=== PATIENT | male | born 1970 | race Caucasian/White ===

== ENCOUNTER 2023-05-21 13:33 | Emergency (ER) | payer MEDICARE, SELFPAY ==
[2023-05-21 13:37] VITALS: BP 130/88; PULSE 64; RESP 14; TEMP 36.8; O2SAT 98; BMI 36.9
--- NOTE | 2023-05-21 13:51 | ED_ITS ---
HPI - Headache General Stated Complaint: MIGRANE Time Seen by Provider: 05/21/23 13:34 Source: patient Mode of arrival: walk-in Limitations: no limitations History of Present Illness HPI Narrative: patient is a 52-year-old male well-known to this emergency department for history of chronic neck pain and migraines. He presents to the Emergency Room today for a 5-6 day history of increasing bilateral neck pain radiating into the head. He states he believes it is due to his pillow at home which has become more lumpy. He states he believes it is exacerbating his chronic neck pain. He reports pain on the bilateral paracervical area radiating up to the temples. This is consistent with previous headaches. He denies any new fevers, vomiting. No reported injuries. Related Data Home Medications Medication Instructions Recorded Confirmed cyclobenzaprine 10 mg tablet 10 mg PO Q8H PRN muscle spasm 05/21/23 05/21/23 insulin degludec 200 unit/mL (3 100 unit subcut DAILY 05/21/23 05/21/23 mL) subcutaneous pen (Tresiba FlexTouch U-200 insulin) irbesartan 300 mg tablet 300 mg PO DAILY 05/21/23 05/21/23 metoprolol succinate 100 mg 100 mg PO DAILY 05/21/23 05/21/23 tablet,extended release 24 hr pregabalin 200 mg capsule 200 mg PO DAILY 05/21/23 05/21/23 rosuvastatin 10 mg tablet 10 mg PO DAILY 05/21/23 05/21/23 Previous Rx's Medication Instructions Recorded methocarbamol 750 mg tablet 750 mg PO TID PRN pain #20 tabs 05/21/23 Allergies Allergy/AdvReac Type Severity Reaction Status Date / Time No Known Drug Allergies Allergy Verified 05/21/23 13:45 Review of Systems ROS Constitutional Denies: fever or chills Ears, nose, mouth, and throat Reports: neck pain; Denies: throat pain Cardiovascular Denies: chest pain Respiratory Denies: shortness of breath or cough Gastrointestinal Denies: nausea or vomiting Musculoskeletal Reports: neck pain; Denies: back pain Integumentary/Breast Denies: rash Neurological Reports: headache Endocrine Denies: excessive urination Hematologic/Lymphatic Denies: easy bruising PFSH PFSH Social History Smoking status: Current every day smoker Exam Narrative Exam Narrative: Gen.: Awake, alert, in no distress Head: Normocephalic, atraumatic ENT: Moist mucous membranes; diffuse tenderness of the paracervical area of the neck with no midline posterior bony point tenderness of the C-spine. 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 Psych: Normal mood and affect Neuro: No focal neuro deficit; clear speech Skin: Warm, dry, intact Constitutional Vital Signs, click to edit/add: Last Vital Signs Temp 98.2 F 05/21/23 13:37 Pulse 64 05/21/23 13:37 Resp 14 05/21/23 13:37 BP 130/88 05/21/23 13:37 Pulse Ox 98 05/21/23 13:37 O2 Del Method Room Air 05/21/23 13:37 Course Vital Signs Vital signs: Vital Signs Temperature 98.2 F 05/21/23 13:37 Pulse Rate 64 05/21/23 13:37 Respiratory Rate 14 05/21/23 13:37 Blood Pressure 130/88 05/21/23 13:37 Pulse Oximetry 98 05/21/23 13:37 Oxygen Delivery Method Room Air 05/21/23 13:37 Temperature 98.2 F 05/21/23 13:37 Pulse Rate 64 05/21/23 13:37 Respiratory Rate 14 05/21/23 13:37 Blood Pressure 130/88 05/21/23 13:37 Pulse Oximetry 98 05/21/23 13:37 Oxygen Delivery Method Room Air 05/21/23 13:37 MDM - Headache MDM Narrative Medical decision making narrative: patient declined an IV, he requests intramuscular injections instead. He will be treated with Phenergan, Benadryl, Norflex, Toradol. He is given a prescription of Robaxin for home. Follow-up with PCP and return to the emergency department if symptoms change or worsen. Patient is prescribed Lyrica for home. He is instructed to stop his old prescription of Flexeril and will be given a new prescription for muscle relaxants. Medical Records Attestation: I reviewed the patient's medical records. Discharge Plan Discharge Clinical Impression: Acute neck pain, Headache Patient Disposition: Home, Self-Care Time of Disposition Decision: 13:54 Condition: Good Prescriptions / Home Meds: New methocarbamol 750 mg tablet 750 mg PO TID PRN (Reason: pain) Qty: 20 0RF No Action insulin degludec [Tresiba FlexTouch U-200] 200 unit/mL (3 mL) insulin pen 100 unit SUBCUT DAILY irbesartan 300 mg tablet 300 mg PO DAILY metoprolol succinate 100 mg tablet extended release 24 hr 100 mg PO DAILY pregabalin 200 mg capsule 200 mg PO DAILY rosuvastatin 10 mg tablet 10 mg PO DAILY cyclobenzaprine 10 mg tablet 10 mg PO Q8H PRN (Reason: muscle spasm) Instructions: Acute Headache (ED), Acute Neck Pain (ED) Stand Alone Forms: Portal Instructions Referrals: NISA ROJAS [Primary Care Provider] - 1 week
[2023-05-21] MEDS: PROMETHAZINE HCL 25 MG/ML VIAL IM (14:00)
[2023-05-21] MEDS: ORPHENADRINE 60 MG/ 2 ML VIAL IM (14:01)
[2023-05-21] MEDS: KETOROLAC TROMETHAMINE 60 MG/2 ML VIAL IM (14:01)
[2023-05-21] MEDS: DIPHENHYDRAMINE HCL 50 MG/ML (1ML) VIAL 25 MG IM (14:02)
== END 2023-05-21 14:18 | disposition home or self-care (01) ==
PROVIDERS: Emergency Provider Emergency Medicine; PCP Internal Medicine
DX: M54.2 Cervicalgia (principal); R51.9 Headache, unspecified; Z79.899 Other long term (current) drug therapy; Z79.4 Long term (current) use of insulin; F17.210 Nicotine dependence, cigarettes, uncomplicated
CPT/HCPCS: 96372; 99284

== ENCOUNTER 2023-06-15 14:09 | Emergency (ER) | payer MEDICARE, SELFPAY ==
[2023-06-15 14:14] VITALS: BP 160/110; PULSE 68; RESP 18; TEMP 37.1; O2SAT 100; BMI 36.9
[2023-06-15 14:20] VITALS: BP 185/95
--- NOTE | 2023-06-15 14:42 | ED_ITS ---
HPI - General Adult General Chief complaint: Headache Stated complaint: HEADACHE/FACE AND NECK PAIN Time Seen by Provider: 06/15/23 14:15 Source: patient Mode of arrival: walk-in Limitations: no limitations History of Present Illness HPI narrative: acute flare up of chronic pain - localized to the neck and back of the head. No recent injury or fall. He said it has progressed over the last 24 hours with little improvement with Tylenol and Flexeril. He was evaluated in our ED recently for this and got Robaxin, which he said he tolerated better - and worked better - than the Flexeril he is currently taking. Related Data Home Medications Medication Instructions Recorded Confirmed cyclobenzaprine 10 mg tablet 10 mg PO Q8H PRN muscle spasm 05/21/23 05/21/23 insulin degludec 200 unit/mL (3 100 unit subcut DAILY 05/21/23 05/21/23 mL) subcutaneous pen (Tresiba FlexTouch U-200 insulin) irbesartan 300 mg tablet 300 mg PO DAILY 05/21/23 05/21/23 metoprolol succinate 100 mg 100 mg PO DAILY 05/21/23 05/21/23 tablet,extended release 24 hr pregabalin 200 mg capsule 200 mg PO DAILY 05/21/23 05/21/23 rosuvastatin 10 mg tablet 10 mg PO DAILY 05/21/23 05/21/23 Previous Rx's Medication Instructions Recorded methocarbamol 750 mg tablet 750 mg PO TID PRN pain #20 tabs 05/21/23 methocarbamol 750 mg tablet 750 mg PO Q6H PRN pain #30 tabs 06/15/23 Allergies Allergy/AdvReac Type Severity Reaction Status Date / Time No Known Drug Allergies Allergy Verified 06/15/23 14:14 PFSH [facility] Social History Smoking status: Current every day smoker Exam Narrative Exam Narrative: Nurses notes and vital signs reviewed and patient is not hypoxic. afebrile General: Well-appearing and in no apparent distress. Skin: Warm, dry, no pallor noted. No rash. Head: Normocephalic, atraumatic. Neck: Supple, no cervical lymphadenopathy. Posterior soft tissue neck tenderness bilaterally. No meningismus. Eye: Pupils are equal, round and EOMI. No scleral icterus. Cardiovascular: Regular Rate and Rhythm without murmur, gallop or rub. Respiratory: No accessory muscle use or respiratory distress. Lungs are clear to auscultation, no wheezing, rales or rhonchi Back: No midline thoracic vertebral tenderness. No trapezius tenderness Musculoskeletal: normal ROM Neurological: A&O x4. No cranial nerve dysfunction observed. No truncal ataxia. Moves all extremities. Sensation intact. Psychiatric: Cooperative and interactive. Normal mood and affect. Constitutional Vital Signs, click to edit/add: Last Vital Signs Temp 98.8 F 06/15/23 14:14 Pulse 68 06/15/23 14:14 Resp 18 06/15/23 14:14 BP 185/95 H 06/15/23 14:20 Pulse Ox 100 06/15/23 14:14 O2 Del Method Room Air 06/15/23 14:14 Course Vital Signs Vital signs: Vital Signs Temperature 98.8 F 06/15/23 14:14 Pulse Rate 68 06/15/23 14:14 Respiratory Rate 18 06/15/23 14:14 Blood Pressure 160/110 H 06/15/23 14:14 Pulse Oximetry 100 06/15/23 14:14 Oxygen Delivery Method Room Air 06/15/23 14:14 Temperature 98.8 F 06/15/23 14:14 Pulse Rate 68 06/15/23 14:14 Respiratory Rate 18 06/15/23 14:14 Blood Pressure 185/95 H 06/15/23 14:20 Pulse Oximetry 100 06/15/23 14:14 Oxygen Delivery Method Room Air 06/15/23 14:14 Medical Decision Making MDM Narrative Medical decision making narrative: patient well-known to this emergency Department. He has chronic neck pain for which she has been coming and seeing us in this emergency department for many years. He typically responsive injection of Toradol plus minus Solu-Medrol in those instances where the pain is worse than his typical presentation. We discussed the plan and treatment for today - IM injections of Toradol and Solu- Medrol with a prescription provided for Robaxin. He can follow-up with his primary care provider, who is very familiar with his chronic neck pain. Discharge Plan Discharge Chief Complaint: Headache Clinical Impression: Acute neck pain, Headache Patient Disposition: Home, Self-Care Time of Disposition Decision: 14:41 Prescriptions / Home Meds: New methocarbamol 750 mg tablet 750 mg PO Q6H PRN (Reason: pain) Qty: 30 0RF No Action insulin degludec [Tresiba FlexTouch U-200] 200 unit/mL (3 mL) insulin pen 100 unit SUBCUT DAILY irbesartan 300 mg tablet 300 mg PO DAILY metoprolol succinate 100 mg tablet extended release 24 hr 100 mg PO DAILY pregabalin 200 mg capsule 200 mg PO DAILY rosuvastatin 10 mg tablet 10 mg PO DAILY cyclobenzaprine 10 mg tablet 10 mg PO Q8H PRN (Reason: muscle spasm) methocarbamol 750 mg tablet 750 mg PO TID PRN (Reason: pain) Qty: 20 0RF Instructions: Acute Headache (ED), Chronic Neck Pain (DC) Stand Alone Forms: Portal Instructions Referrals: NISA ROJAS [Primary Care Provider] - 1 week
[2023-06-15] MEDS: KETOROLAC TROMETHAMINE 60 MG/2 ML VIAL IM (14:56)
[2023-06-15] MEDS: METHYLPREDNISOLONE SOD SUCC PF 125 MG/2 ML VIAL IM (14:56)
== END 2023-06-15 15:01 | disposition home or self-care (01) ==
PROVIDERS: Emergency Provider Emergency Medicine; PCP Internal Medicine
DX: M54.2 Cervicalgia (principal); R51.9 Headache, unspecified; G89.29 Other chronic pain; Z79.899 Other long term (current) drug therapy; F17.210 Nicotine dependence, cigarettes, uncomplicated
CPT/HCPCS: 96372; 99284; J2930

== ENCOUNTER 2023-07-20 09:08 | Emergency (ER) | payer MEDICARE, MEDICAID, SELFPAY ==
[2023-07-20 09:25] VITALS: BP 180/108; PULSE 62; RESP 22; TEMP 36.8; O2SAT 98; BMI 43.1
--- NOTE | 2023-07-20 09:39 | ED_ITS ---
HPI - Back Pain/Injury General Chief Complaint: Back Pain/Injury Stated Complaint: BACK PAIN/ FALL Time Seen by Provider: 07/20/23 09:28 Source: patient Mode of arrival: walk-in Limitations: no limitations History of Present Illness HPI Narrative: 53-year-old male presents for pain in his back. Three days ago she rolled out of bed and landed on his back. Two days ago he saw his dentist in the morning, his family doctor in the afternoon, and then the emergency department at another hospital that evening. He was given Toradol by his dentist in tramadol from another physician but it's not working. No new injury. He reports that he had x- rays at that emergency department visit. The pain is severe and worse in certain positions. Related Data Home Medications Medication Instructions Recorded Confirmed cyclobenzaprine 10 mg tablet 10 mg PO Q8H PRN muscle spasm 05/21/23 05/21/23 insulin degludec 200 unit/mL (3 100 unit subcut DAILY 05/21/23 05/21/23 mL) subcutaneous pen (Tresiba FlexTouch U-200 insulin) irbesartan 300 mg tablet 300 mg PO DAILY 05/21/23 05/21/23 metoprolol succinate 100 mg 100 mg PO DAILY 05/21/23 05/21/23 tablet,extended release 24 hr pregabalin 200 mg capsule 200 mg PO DAILY 05/21/23 05/21/23 rosuvastatin 10 mg tablet 10 mg PO DAILY 05/21/23 05/21/23 Previous Rx's Medication Instructions Recorded methocarbamol 750 mg tablet 750 mg PO TID PRN pain #20 tabs 05/21/23 methocarbamol 750 mg tablet 750 mg PO Q6H PRN pain #30 tabs 06/15/23 methocarbamol 750 mg tablet 750 mg PO Q8H pain #20 tabs 07/20/23 Allergies Allergy/AdvReac Type Severity Reaction Status Date / Time No Known Drug Allergies Allergy Verified 06/15/23 14:14 Review of Systems ROS Narrative A ten point review of systems is negative except as noted above. PFSH PFSH Social History Smoking status: Current every day smoker Exam Narrative Exam Narrative: Nurses note and vital signs reviewed and patient is not hypoxic. General: The patient is siitting on the examination chair. Skin: Warm, dry, no pallor noted. There is no rash noted. Head: Normocephalic, atraumatic Eye: Normal conjunctiva, no drainage Ears, Nose, Mouth, and Throat: oral mucosa is moist. Nares patent. Cardiovascular: Regular Rate and Rhythm Respiratory: Patient is in no distress, no accessory muscle use, lungs are clear to auscultation, no wheezing, rales or rhonchi Back: tenderness present in the thoracic spine area and the right lower posterior rib region. Bruise or abrasion present. GI: obese and nontender Musculoskeletal: The patient has no evidence of calf tenderness, no pitting edema, symmetrical pulses noted bilaterally Neurological: A&O, normal speech Psychiatric: Cooperative Constitutional Vital Signs, click to edit/add: Last Vital Signs Temp 98.3 F 07/20/23 09:25 Pulse 62 07/20/23 09:25 Resp 22 07/20/23 09:25 BP 180/108 H 07/20/23 09:25 Pulse Ox 98 07/20/23 09:25 O2 Del Method Room Air 07/20/23 09:25 Course Vital Signs Vital signs: Vital Signs Temperature 98.3 F 07/20/23 09:25 Pulse Rate 62 07/20/23 09:25 Respiratory Rate 22 07/20/23 09:25 Blood Pressure 180/108 H 07/20/23 09:25 Pulse Oximetry 98 07/20/23 09:25 Oxygen Delivery Method Room Air 07/20/23 09:25 Temperature 98.3 F 07/20/23 09:25 Pulse Rate 62 07/20/23 09:25 Respiratory Rate 22 07/20/23 09:25 Blood Pressure 180/108 H 07/20/23 09:25 Pulse Oximetry 98 07/20/23 09:25 Oxygen Delivery Method Room Air 07/20/23 09:25 MDM - Back Pain/Injury MDM Narrative Medical decision making narrative: I've reviewed the x-rays from [facility] and he had thoracic spine x- rays and rib x-rays and they were negative. He is given IM Toradol and Solu- Medrol and Norflex and discharged home on Robaxin. He was offered Lidoderm patches but states he has been home. Treatment diagnosis and follow-up were discussed with the patient. Differential Diagnosis Differential diagnosis: Likely other (back contusion, rib fracture, thoracic spine fracture) Discharge Plan Discharge Chief Complaint: Back Pain/Injury Clinical Impression: Thoracic back pain Patient Disposition: Home, Self-Care Time of Disposition Decision: 10:10 Condition: Good Mode of Transportation: Private Vehicle Prescriptions / Home Meds: New methocarbamol 750 mg tablet 750 mg PO Q8H Qty: 20 0RF No Action insulin degludec [Tresiba FlexTouch U-200] 200 unit/mL (3 mL) insulin pen 100 unit SUBCUT DAILY irbesartan 300 mg tablet 300 mg PO DAILY metoprolol succinate 100 mg tablet extended release 24 hr 100 mg PO DAILY pregabalin 200 mg capsule 200 mg PO DAILY rosuvastatin 10 mg tablet 10 mg PO DAILY cyclobenzaprine 10 mg tablet 10 mg PO Q8H PRN (Reason: muscle spasm) methocarbamol 750 mg tablet 750 mg PO TID PRN (Reason: pain) Qty: 20 0RF methocarbamol 750 mg tablet 750 mg PO Q6H PRN (Reason: pain) Qty: 30 0RF Instructions: Thoracic Pain (ED) Stand Alone Forms: Portal Instructions Referrals: NISA ROJAS [Primary Care Provider] - 1 week
[2023-07-20] MEDS: METHYLPREDNISOLONE SOD SUCC PF 125 MG/2 ML VIAL IM (10:31)
[2023-07-20] MEDS: KETOROLAC TROMETHAMINE 60 MG/2 ML VIAL IM (10:31)
[2023-07-20] MEDS: ORPHENADRINE 60 MG/ 2 ML VIAL IM (10:31)
[2023-07-20 10:36] VITALS: BP 168/98; PULSE 98; RESP 20; O2SAT 98
== END 2023-07-20 10:37 | disposition home or self-care (01) ==
PROVIDERS: Emergency Provider Emergency Medicine; PCP Internal Medicine
DX: M54.6 Pain in thoracic spine (principal); F17.210 Nicotine dependence, cigarettes, uncomplicated; Z79.899 Other long term (current) drug therapy; Z79.4 Long term (current) use of insulin
CPT/HCPCS: 96372; 99284; J2930

== ENCOUNTER 2024-04-01 13:30 | Emergency (ER) | payer MEDICARE, MEDICAID, SELFPAY ==
[2024-04-01 13:35] VITALS: BP 158/115; PULSE 78; TEMP 37.3; O2SAT 95; BMI 44.3
[2024-04-01] MEDS: DIAZEPAM 10 MG/2 ML SYRINGE 5 MG IM (13:56)
[2024-04-01] MEDS: METOCLOPRAMIDE HCL 10 MG/2 ML VIAL IM (13:57)
[2024-04-01] MEDS: METHYLPREDNISOLONE SOD SUCC PF 125 MG/2 ML VIAL IM (13:57)
[2024-04-01] MEDS: DIPHENHYDRAMINE HCL 50 MG/ML VIAL 25 MG IM (13:57)
--- NOTE | 2024-04-01 14:02 | ED_ITS ---
HPI HPI - General Adult General Chief complaint: Headache Stated complaint: FINGER INJURY Time Seen by Provider: 04/01/24 13:31 Source: patient Mode of arrival: walk-in Limitations: no limitations History of Present Illness HPI narrative: This patient is a 53-year-old male with a history of MS, chronic migraines, chronic neck pain, hypertension who presents to the emergency department for multiple complaints. He states he took Toradol this afternoon for a headache that has been present for the last 2 days. He states the Toradol did not help so he came to the emergency department. He has an upcoming appointment with his neurologist next week to discuss his worsening headaches, memory difficulties and difficulty ambulating. This patient is well-known to our emergency department for a longstanding history of all of these issues. He is noted to be hypertensive at initial interview and his mother is at bedside stating that he did not take his blood pressure medication this morning. Patient further complains of swelling, bruising and pain to the distal tip of the left third finger. He denies injury or trauma to the area, his mother thinks he may have had a hangnail. He denies drainage, fevers. Related Data Home Medications ?Medication ?Instructions ?Recorded ?Confirmed cyclobenzaprine 10 mg tablet 10 mg PO Q8H PRN muscle spasm 05/21/23 05/21/23 insulin degludec 200 unit/mL (3 100 unit subcut DAILY 05/21/23 05/21/23 mL) subcutaneous pen (Tresiba FlexTouch U-200 insulin) irbesartan 300 mg tablet 300 mg PO DAILY 05/21/23 05/21/23 metoprolol succinate 100 mg 100 mg PO DAILY 05/21/23 05/21/23 tablet,extended release 24 hr pregabalin 200 mg capsule 200 mg PO DAILY 05/21/23 05/21/23 rosuvastatin 10 mg tablet 10 mg PO DAILY 05/21/23 05/21/23 Previous Rx's ?Medication ?Instructions ?Recorded methocarbamol 750 mg tablet 750 mg PO TID PRN pain #20 tabs 05/21/23 methocarbamol 750 mg tablet 750 mg PO Q6H PRN pain #30 tabs 06/15/23 methocarbamol 750 mg tablet 750 mg PO Q8H pain #20 tabs 07/20/23 cephalexin 500 mg capsule 500 mg PO Q8H 10 days #30 caps 04/01/24 mupirocin 2 % topical ointment 1 applic topical BID #15 grams 04/01/24 Allergies Allergy/AdvReac Type Severity Reaction Status Date / Time No Known Drug Allergies Allergy Verified 06/15/23 14:14 Opioid HPI Opioid Management Most Recent Opioid Data: Last Pain Scale 10 07/20/23 09:36 Review of Systems ROS Constitutional Denies: fever or chills Eyes Denies: change in vision Cardiovascular Denies: chest pain Respiratory Denies: shortness of breath Gastrointestinal Denies: nausea or vomiting Musculoskeletal Reports: neck pain; Denies: back pain Neurological Reports: headache; Denies: numbness in extremities or weakness in extremities Hematologic/Lymphatic Denies: easy bruising or easy bleeding PFSH PFSH Social History Smoking status: Current every day smoker Exam Narrative Exam Narrative: Gen.: Awake, alert, in no distress, no photophobia Head: Normocephalic, atraumatic ENT: Moist mucous membranes, no nuchal rigidity or meningismus. Respiratory: No respiratory distress Extremities: Moves extremities equally, left third finger distal phalanx with scabbing and crusting at the cuticle and surrounding swelling, minimal ecchymosis and erythema. No defined paronychia Psych: Normal mood and affect Neuro: No focal neuro deficit Skin: Warm, dry, intact Constitutional Vital Signs, click to edit/add: Last Vital Signs Temp 99.1 F 04/01/24 13:35 Pulse 78 04/01/24 13:35 Resp 18 04/01/24 13:35 BP 158/115 H 04/01/24 13:35 Pulse Ox 95 04/01/24 13:35 O2 Del Method Room Air 04/01/24 13:35 Course Vital Signs Vital signs: Vital Signs Temperature 99.1 F 04/01/24 13:35 Pulse Rate 78 04/01/24 13:35 Respiratory Rate 18 04/01/24 13:35 Blood Pressure 158/115 H 04/01/24 13:35 Pulse Oximetry 95 04/01/24 13:35 Oxygen Delivery Method Room Air 04/01/24 13:35 Temperature 99.1 F 04/01/24 13:35 Pulse Rate 78 04/01/24 13:35 Respiratory Rate 18 04/01/24 13:35 Blood Pressure 158/115 H 04/01/24 13:35 Pulse Oximetry 95 04/01/24 13:35 Oxygen Delivery Method Room Air 04/01/24 13:35 Medical Decision Making MDM Narrative Medical decision making narrative: Upon arrival to the ER, patient was noted to be hypertensive, he came into the emergency department in a wheelchair complaining of worsening MS symptoms. After assessment, his exam is consistent with wound infection to the left third finger, no evidence of vascular compromise on exam. No defined paronychia to drain. Patient was ordered to have Reglan, Benadryl, Solu-Medrol and Valium for his headache. Patient specifically requested Dilaudid to nursing staff on arrival to the emergency department, I do not feel Dilaudid is indicated for this patient's chronic pain. He has [place] that was prescribed by his PCP, he also has Toradol and Robaxin at home for symptoms. After receiving intramuscular injections, the patient ambulated out of the emergency department with no difficulty, he eloped prior to completion of his treatment and reassessment for his headache. He was noted to ambulate with a steady gait, he was prescribed Keflex and Bactroban for his left third finger if he chooses to fill this. Patient did leave the emergency department before we were able to recheck his blood pressure, give him home-going instructions or reassess his headache. SUPERVISED APC VISIT, PHYSICIAN ATTESTATION: Based on the medical record the care appears appropriate. ? Medical Records Medical records reviewed: Yes I reviewed the patient's medical records Discharge Plan Discharge Stand Alone Forms: Portal Instructions Chief Complaint: Headache Clinical Impression: Headache, Open wound of finger, infected Patient Disposition: Left Against Medical Advice Time of Disposition Decision: 13:48 Condition: Good Prescriptions / Home Meds: New cephalexin 500 mg capsule 500 mg PO Q8H 10 Days Qty: 30 0RF mupirocin 2 % ointment 1 applic topical BID Qty: 15 0RF No Action insulin degludec [Tresiba FlexTouch U-200] 200 unit/mL (3 mL) insulin pen 100 unit SUBCUT DAILY irbesartan 300 mg tablet 300 mg PO DAILY metoprolol succinate 100 mg tablet extended release 24 hr 100 mg PO DAILY pregabalin 200 mg capsule 200 mg PO DAILY rosuvastatin 10 mg tablet 10 mg PO DAILY cyclobenzaprine 10 mg tablet 10 mg PO Q8H PRN (Reason: muscle spasm) methocarbamol 750 mg tablet 750 mg PO TID PRN (Reason: pain) Qty: 20 0RF methocarbamol 750 mg tablet 750 mg PO Q8H Qty: 20 0RF methocarbamol 750 mg tablet 750 mg PO Q6H PRN (Reason: pain) Qty: 30 0RF Print Language: Filipino Instructions: Wound Infection (ED), Acute Headache (ED) Referrals: NISA ROJAS [Primary Care Provider] - 1 week
== END 2024-04-01 14:11 | disposition left against medical advice (07) ==
PROVIDERS: Emergency Provider Emergency Medicine; PCP Internal Medicine
DX: S61.203A Unspecified open wound of left middle finger without damage to nail, initial encounter (principal); L08.9 Local infection of the skin and subcutaneous tissue, unspecified; R51.9 Headache, unspecified; G35 Multiple sclerosis; M54.2 Cervicalgia; G89.29 Other chronic pain; I10 Essential (primary) hypertension; F17.200 Nicotine dependence, unspecified, uncomplicated; Z53.29 Procedure and treatment not carried out because of patient's decision for other reasons
CPT/HCPCS: 96372; 99284; J1200; J2765; J2919; J3360

== ENCOUNTER 2024-12-28 20:43 | Emergency (ER) | payer MEDICARE, MEDICAID, SELFPAY ==
--- OUTSIDE RECORDS SUMMARY | 2024-10-29 06:35 | XMS_ITS ---
Author Organization [facility] Address [address] [place] [address] Care Team Providers Care International Banker Name Role Phone Dr. Erik Arora Primary Care Provider [phone] REASON FOR VISIT FILLING Encounters Encounter Location Date Provider Diagnosis [facility] [address] [place] [address] 10/29/2024 Erik Arora Plan Of Treatment Next Appt Details Provider Name:Lizztete Cazares, 03/10/2025 02:50:00 PM, [address] [place], [address], Progress Notes * KERLINE CHANGDOB: [birth year] (54 yo M)Acc No.[id number]:10/29/2024 Patient: KERLINE ZALDIVAR Provider: Arabella Arora DDS :1970 A ge:54 Y S ex:Male Date:10/29/2024 Address:[address] [place], [place] [id number] Subjective: * Chief Complaints: * 1 . FILLING. * Medical History: Objective: * Vitals: Assessment: Plan: * Treatment: * Images: * Electronic signature of Dr. Erik Arora , DMD on 12/28/2024 at 09:54 AM EDT Sign off status: Pending * Provider: Arabella Arora DDS Date: 0 10/29/2024 Generated for Therese cardenas/Aretha/Augustin on: 0 12/28/2024 09:54 AM EDT
--- OUTSIDE RECORDS SUMMARY | 2024-12-13 10:00 | XMS_ITS ---
Author Organization [facility] Address [address] [place] [address] Care Team Providers Care Loan Processing Supervisor Name Role Phone Dr. Erik Arora Primary Care Provider [phone] Lydia Phillips [phone] REASON FOR VISIT PERIO EVAL + RETAKE BWXS Encounters Encounter Location Date Provider Diagnosis [facility] [address] [place] [address] 12/13/2024 Lydianaya Dey Encounter for dental examination and cleaning with abnormal findings Z01.21 Assessments Encounter Date Diagnosis (ICD Code) Assessment Notes Treatment Notes Treatment Clinical Notes Section Notes 12/13/2024 Encounter for dental examination and cleaning with abnormal findings (ICD-10 - Z01.21) Plan Of Treatment Next Appt Details Provider Name:Lizzette Cazares, 03/10/2025 02:50:00 PM, [address], [place], [address], Progress Notes * KERLINE CHANGDOB: [birth year] (54 yo M)Acc No.[id number]:12/13/2024 Patient: KERLINE ZALDIVAR Provider: Colleen Dey :1970 A ge:54 Y S ex:Male Date:12/13/2024 Address:[address] [place] [id number] Pcp:Dr. Erik Arora Subjective: * Chief Complaints: * 1 . PERIO EVAL + RETAKE BWXS. * Medical History: Objective: * Vitals: * Dental Examination/Plan : Tooth / Surface Status Description Provider Full Mouth TP COMP PERIODONTAL EVAL - NEW/EST PT K H 12/13/2024 Assessment: * Assessment: 1. E ncounter for dental examination and cleaning with abnormal findings - Z01.21 (Primary)? Plan: * Treatment: * Images: * Electronic signature of Sebastián Dey on 12/28/2024 at 09:54 AM EDT Sign off status: Pending * Provider: Colleen Dey Date: 12/13/2024 Generated for Therese cardenas/Aretha/Augustin on: 0 12/28/2024 09:54 AM EDT
--- OUTSIDE RECORDS SUMMARY | 2024-12-24 10:45 | XMS_ITS | Encounter Summary ---
Author Organization [facility] Address [address] [place] [address] Care Team Providers Care Navy Diver Name Role Phone Darrius Orr MD Unavailable [phone] Darrius Orr MD Primary Care Provider [phone] Aiden Linares DPM Unavailable [phone] Kai Gutierres DO Unavailable [phone] Reason for Visit * Reason Comments Hyperglycemia Pt had BS reading of 500 this AM. Currently 478. He has taken an additional 50 units of insulin. Migraine Pt had an Ocrevus in fusion yesterday at 12pm and during the infusion was given solumedrol, Benadryl as well. Encounter Details Date Type Department Care Team ([facility] Contact Info) Description 12/24/2024 10:45 AM EDT Office Visit [facility] [address] [facility] [address] [place] [phone] Adela Gross, SALES PROFESSIONAL [employer] [address] [facility] [address] [place] [address] Essential hypertension (CMS/HCC) (Primary Dx); Type 2 diabetes mellitus with diabetic neuropathy, with long-term current use of insulin (CMS/HCC); History of migraine headaches Social History Tobacco Use Types Packs/Day Years Used Date Smoking Tobacco: Former Cigarettes 0.3 35 S tarted: 1989 Passive Smoke Exposure: Past Smokeless Tobacco: Never Tobacco Cessation:Counseling Given: No Alcohol Use Standard Drinks/Week Comments Never 0 (1 standard drink = 0.6 oz pure alcohol) Caffine intake: Coke Zero, 2-3 cans daily AUDIT-C Answer Date Recorded Q1: How often do you have a drink containing alcohol? Never 12/30/2023 Q2: How many drinks containi ng alcohol do you have on a typical day when you are drinking? Patient does not drink Q3: How often do you have si x or more drinks on one occasion? Never 12/30/2023 PHQ-2 Answer Date Recorded Patient Health Questionnaire-2 Score 0 02/25/2024 Sex and Gender Information Value Date Recorded Sex Assigned at Not on file Legal Sex Male 6:48 PM EDT Gender Identity Not on file Sexual Orientation Not on file Occupation Industry Job Start Date Job End Date disabled Not on file Not on file Not on file documented as of this encounter Last Filed Vital Signs Vital Sign Reading Time Taken Comments Blood Pressure 160/90 12/24/2024 10:09 AM EDT Pulse 84 12/24/2024 10:09 AM EDT Temperature - - Respiratory Rate - - Oxygen Saturation 98% 12/24/2024 10:09 AM EDT Inhaled Oxygen Concentration - - Weight - - Height - - Body Mass Index - - documented in this encounter Progress Notes * Adela Gross NP - 12/24/2024 10:45 AM EDT Images from the original note were not included. Alex Ellis is a 54 y.o. male presents with chief complaint of Hyperglycemia (Pt had BS reading of 500 this AM. Currently 478. He has taken an additional 50 units of insulin.) and Migraine (Pt hadan Ocrevus infusion yesterday at 12pm and during the infusion was given solumedrol, Benadryl as well. ) HPI: History of Present Illness The patient is a 54-year-old male who presents today for elevated blood sugar. Elevated Blood Sugar He reports persistent hyperglycemia, with blood glucose levels exceeding 500 for the past two days.His blood glucose level was 482 this morning. He had steroids with Ocrevus infusion yesterday. He has been adhering to his insulin regimen, including the administration of 50 units of NovoLog at approximately 8:30 AM today. He also took 110 units of Tresiba this morning. He has been taking insulin daily, although he admits to missing a few doses. He typically administers Tresiba in the morning and uses a sliding scale for NovoLog a couple times a day , instructed to take three times daily. Since yesterday at 3:00 PM, he has taken a total of 260 units of NovoLog, with the last dose of 50 units administered at 8:00 AM today. He has not yet consulted with a life skills educator. His diet includes meat and he occasionally consumes cereal. He is requesting a prescription for diabetic shoes. He recently changed his Jazmín sensor this morning. - Onset: Persistent hyperglycemia for the past two days. - Location: Blood glucose levels. - Duration: Past two days. - Character: Blood glucose levels exceeding 500, 482 this morning. - Alleviating/Aggravating Factors: Adhering to insulin regimen, missing a few doses. - Timing: NovoLog three times daily, Tresiba in the morning. - Severity: Severe hyperglycemia, requesting diabetic shoes. Headaches He received a one-time infusion of Solu-Medrol with his Ocrevus infusion. He also received an Ocrevus infusion yesterday, marking the first day in eight days without a headache. However, he experienced a severe migraine upon waking this morning, localized to his temples and frontal lobe. He is scheduled to see Dr. Gutierres on 01/04/2025. He is seeking stronger medication such as Dilaudid or morphine for his headaches, as Toradol has been ineffective. He took Percocet and a muscle relaxer at 5:00AM today, but reports gastrointestinal discomfort from the Percocet even when taken with food. He has previously tried a combination of Toradol, Benadryl, and Compazine, but found it ineffective. - Onset: Severe migraine upon waking this morning. - Location: Temples and frontal lobe. - Character: Severe migraine. - Alleviating/Aggravating Factors: Seeking stronger medication, Toradol ineffective, gastrointestinal discomfort from Percocet. - Timing: First day in eight days without a headache after Ocrevus infusion. - Severity: Severe migraine, ineffective previous treatments. Uncertainty About Blood Pressure Medication He is uncertain whether he took his blood pressure medication this morning. Improved Respiratory Function He reports improved respiratory function and has been abstinent from smoking for approximately fiveweeks. SOCIAL HISTORY He has been cigarette free for about 5 weeks. I have reviewed and reconciled the history and medication list with the patient today. HISTORIES: PAST MEDICAL HISTORY: Past Medical History: Diagnosis Date Adrenal adenoma, left 12/30/2022 Age-related nuclear cataract, bilateral Bipolar disorder Carpal tunnel syndrome Cervical paraspinal muscle spasm Cholelithiasis Chronic sialoadenitis CKD (chronic kidney disease) stage 2, GFR 60-89 ml/min Disturbance of skin sensation ED (erectile dysfunction) Essential hypertension ([facility]/HCC) SUKHJINDER (generalized anxiety disorder) ([facility]) Gait abnormality History of colon polyps Hx of acute myocardial infarction ([facility]/HCC) Hx of temporal arteritis Hyperlipidemia ([facility]/HCC) Irritable bowel syndrome Lipodermatosclerosis Lymphedema of both lower extremities Migraine Morbid obesity ([facility]/HCC) Multiple sclerosis, relapsing-remitting ([facility]) Nuclear senile cataract 01/03/2021 Obstructive sleep apnea CODIE (obstructive sleep apnea) Peripheral neuropathy PLMD (periodic limb movement disorder) Polypharmacy Primary open angle glaucoma (POAG) of both eyes, mild stage Primary osteoarthritis involving multiple joints PTSD (post-traumatic stress disorder) ([facility]) Spinal stenosis of cervical region Type 2 diabetes mellitus Varicose veins of lower limb Varicose veins Venous insufficiency Vitamin B12 deficiency Vitamin D deficiency SURGICAL HISTORY: Past Surgical History: Procedure Laterality Date ARTERY BIOPSY Left 08/26/2016 temporal artery biopsy. Excision painful vein lt moravian ARTERY BIOPSY Right 03/11/2014 temporal artery biopsy COLONOSCOPY 11/27/2018 CYST REMOVAL Excision of benign cyst back of neck, [facility] KNEE SURGERY arthroscopic knee surgery SOCIAL HISTORY: Social History Tobacco Use Smoking status: Former Average packs/day: 0.3 packs/day for 35.0 years (8.8 ttl pk-yrs) Types: Cigarettes Start date: 1989 Passive exposure: Past Smokeless tobacco: Never Vaping Use Vaping status: Never Used Substance Use Topics Alcohol use: Never Comment: Caffine intake: Coke Zero, 2-3 cans daily Drug use: Yes Types: Marijuana Comment: Daily Depression: Not at risk (02/25/2024) PHQ-2 PHQ-2 Score: 0 FAMILY HISTORY: Family History Problem Relation Name Age of Onset Cancer Mother anastacio gallardo COPD Mother anastacio gallardo Hypertension Father braulio ellis Heart disease Father braulio ellis Cancer Father braluio ellis Diabetes Father braulio ellis Liver disease Father braulio ellis Alcohol abuse Father braulio ellis Cancer Maternal Grandmother kae caceres MEDICATIONS: Current Outpatient Medications Medication Instructions ALPRAZolam (XANAX) 0.5 mg, Oral, 2 times daily PRN amitriptyline (ELAVIL) 25 mg, Oral, Nightly ARIPiprazole (ABILIFY) 5 mg, Oral, Daily bimatoprost (Lumigan) 0.01 % ophthalmic solution 1 drop, Nightly Cannabinoids (medical cannabis) Medical Marijuana cyclobenzaprine (FLEXERIL) 10 mg, Oral, 2 times daily PRN diclofenac sodium (VOLTAREN) 4 g, 4 times daily ergocalciferol (VITAMIN D-2) 1.25 mg, Oral, 3 times weekly fluconazole (DIFLUCAN) 100 mg, Oral, Daily hydroCHLOROthiazide (HYDRODIURIL) 12.5 mg, Daily ibuprofen 800 mg, Oral, 3 times daily PRN irbesartan (Avapro) 300 MG tablet TAKE 1 TABLET BY MOUTH DAILY Lancets Micro Thin 33G misc 1 Lancet , As needed methocarbamol (ROBAXIN) 750-1,500 mg, Oral, 3 times daily PRN metoprolol succinate XL (TOPROL-XL) 100 mg, Oral, Daily NovoLOG FLEXPEN 60 Units, Subcutaneous, See admin instructions, Injection per sliding scale nystatin (Mycostatin) 285965 UNIT/GM powder Four times daily Ocrevus 600 mg, Over 6 months oxyCODONE-acetaminophen (Percocet) 5-325 MG tablet 1-2 tablets, Oral, Every 6 hours PRN pregabalin (LYRICA) 300 mg, Oral, 2 times daily rosuvastatin (CRESTOR) 20 mg, Oral, Nightly tadalafil (CIALIS) 20 mg, Oral, Daily Tresiba FlexTouch 100 Units, Subcutaneous, Nightly ALLERGIES: Allergies Allergen Reactions Duloxetine Hcl Other Reaction(s): intolerance Natalizumab Other Reaction(s): AOF Semaglutide Other Reaction(s): nausea and vomiting Other Reaction(s): Other: See Comments Chills, nightmares, diarrhea PHYSICAL EXAM: Visit Vitals BP 160/90 (BP Location: Right arm, Patient Position: Sitting) Pulse 84 SpO2 98% Smoking Status Former BP Readings from Last 3 Encounters: 12/24/24 160/90 12/08/24 142/88 11/29/24 142/78 Wt Readings from Last 3 Encounters: 11/29/24 324 lb 10/18/24 325 lb 10/12/24 334 lb Physical Exam HENT: Mouth/Throat: Mouth: Mucous membranes are moist. Cardiovascular: Rate and Rhythm: Normal rate and regular rhythm. Heart sounds: No murmur heard. No friction rub. No gallop. Pulmonary: Effort: Pulmonary effort is normal. Breath sounds: Normal breath sounds. Skin: General: Skin is warm and dry. Neurological: Mental Status: He is alert and oriented to person, place, and time. Psychiatric: Thought Content: Thought content normal. Results Labs - Blood sugar: Over 500 for 2 days ASSESSMENT AND PLAN: Assessment & Plan 1. Type 2 diabetes mellitus with diabetic neuropathy, with long-term current use of insulin ([facility]) Hyperglycemia: Chronic. - Blood glucose levels consistently exceeding 500 mg/dL for the past two days. - Taking 260 units of NovoLog since yesterday, with the last dose being 50 units at 8:00 AM today. - On Tresiba, taking 100-110 units daily. - Maintain a consistent diet and avoid skipping meals. - Continue current regimen of Tresiba 100 units in the morning and NovoLog on a sliding scale threetimes daily. At times he may have been only taking twice daily - Monitor blood glucose levels two hours postprandial and maintain a log of these readings on the paper sheet provided today. -Discussed checking with Podiatry re: diabetic shoes. 2. Essential hypertension (CMS/HCC) (Primary) - Blood pressure at 162/100 mmHg during the visit. Recheck 160/90. He does not think he took his BPmeds today. - Reminder to take blood pressure medication regularly. 3. History of migraine headaches - Severe migraines in the temples and frontal lobe, not alleviated by Toradol. - Combination of Toradol, Benadryl, and Compazine ineffective. - Contact Dr. Gutierres's office to schedule an earlier appointment if possible. - Emergency room to be contacted to administer Dilaudid or morphine. Discussed with ER provider whoinformed me pt will not get opioid for migraines. Discussed this with pt. - Toradol given today. - Nurtec samples x 4 doses given and first dose done in office. Instructed to take every other day. - ketorolac (Toradol) injection 60 mg Follow-up - Review blood glucose log and adjust treatment plan next . Dr. Orr was not in the office at time of visit, but was available via real- time, audio/visual technology to supervise patient care. I am following Dr. Orr's plan of care for the above issues. documented in this encounter Plan of Treatment Upcoming Encounters Date Type Department Care Team (Late st Contact Info) Description 12/30/2024 9:45 AM EDT Office Visit [facility] [address] [place] [phone] 01/04/2025 1:00 PM EDT Office Visit [facility] [address] [facility] [address] [place] [phone] Kai Gutierres DO [address] [place] [address] 01/05/2025 3:45 PM EDT Office Visit [facility] [address] [place] [address] Susie Mary DPM [address] [place] [address] 02/28/2025 1:30 PM EDT Office Visit [facility] [address] [place] [phone] documented as of this encounter Visit Diagnoses Diagnosis Essential hypertension ([facility])- Primary Unspecified essential hypertension Type 2 diabetes mellitus with diabetic neuropathy, with long-term current use of insulin ([facility]) History of migraine headaches documented in this encounter Administered Medications Inactive Administered Medications - up to 3 most recent administrations Medication Order MAR Action Action Date Dose Rate Site ketorolac (Toradol) injection 60 mg 60 mg, Intramuscular, Once, On Fri12/24/24 at 1130, For 1 dose, Max daily dose: 120 mg. Max duration: 5 days totalIndications:History of migraine headaches Given 12/24/2024 11:17 AM EDT 60 mg Left Gluteal documented in this encounter Care Teams Navy Diver Relationship Specialty Start Date End Date Darrius Orr MD [address] [place] [address] PCP - [employer] 08/04/19 Darrius Orr MD [address] [place] [address] PCP - General Internal Medicine 12/31/22 Aiden Linares DPM [address] [place] [address] Referring Physician Podiatry 10/30/23 Kai Gutierres DO [address] [facility] [address] [place] [address] Referring Physician Neurology 02/24/24 documented as of this encounter
--- OUTSIDE RECORDS SUMMARY | 2024-12-28 10:45 | XMS_ITS | Encounter Summary ---
Author Organization [facility] Address [address] [place] [address] Care Team Providers Care Primary Care Nurse Name Role Phone Darrius Orr MD Unavailable [phone] Darrius Orr MD Primary Care Provider [phone] Aiden Linares DPM Unavailable [phone] Kai Gutierres DO Unavailable [phone] Reason for Visit * Reason Comments Migraine Patient is here with complaints of migraine, bilateral temporal pain, for 15 days. Neck pain, bilateral. Appointment with Dr Gutierres on 01/04/2025 Encounter Details Date Type Department Care Team (Late st Contact Info) Description 12/28/2024 10:45 AM EDT Office Visit [facility] [address] [facility] [address] [place] [phone] Darrius Orr MD [address] [facility] [address] [place] [address] History of migraine headaches (Primary Dx); Essential hypertension (CMS/HCC); Type 2 diabetes mellitus with diabetic neuropathy, with long-term current use of insulin (CMS/HCC); Temporal pain Social History Tobacco Use Types Packs/Day Years Used Date Smoking Tobacco: Former Cigarettes 0.3 35 S tarted: 1989 Passive Smoke Exposure: Past Smokeless Tobacco: Never Alcohol Use Standard Drinks/Week Comments Never 0 [...] Sign Reading Time Taken Comments Blood Pressure 128/90 12/28/2024 11:06 AM EDT Pulse 71 12/28/2024 11:06 AM EDT Temperature - - Respiratory Rate - - Oxygen Saturation 98% 12/28/2024 11:06 AM EDT Inhaled Oxygen Concentration - - Weight 161 kg (356 lb) 12/28/2024 11:06 AM EDT Height 175.3 cm (5' 9 ) 12/28/2024 11:06 AM EDT Body Mass Index 52.57 12/28/2024 11:06 AM EDT documented in this encounter Plan of Treatment Upcoming Encounters Date Type Department Care Team (Late st Contact Info) Description 12/30/2024 9:45 AM EDT Office Visit [facility] [address] [place] [address] 01/04/2025 1:00 PM EDT Office Visit [facility]DA [facility] [address] [facility] [address] [place] [phone] Kai Gutierres DO [address] [place], [place] [phone] 01/05/2025 3:45 PM EDT Office Visit [facility] [address] [place] [phone] Susie Mary DPM [address] [place] [address] 02/28/2025 1:30 PM EDT Office Visit [facility] [address] [place] [phone] Scheduled Orders Name Type Priority Associated Diagnoses Orde r Schedule CBC and differential Lab Routine Temporal pain Expected: 12/29/2024 (Approximate), Expires: 01/27/2025 Comprehensive metabolic panel Lab Routine Temporal pain Expected: 12/29/2024 (Approximate), Expires: 01/27/2025 Sedimentation rate, automated Lab Routine Temporal pain Expected: 12/29/2024 (Approximate), Expires: 01/27/2025 C-reactive protein Lab Routine Temporal pain Expected: 12/29/2024 (Approximate), Expires: 01/27/2025 Cortisol Lab Routine Temporal pain Expected: 12/29/2024 (Approximate), Expires: 01/27/2025 Metanephrines Plasma Lab Routine Temporal pain Expected: 12/29/2024 (Approximate), Expires: 01/27/2025 documented as of this encounter Visit Diagnoses Diagnosis History of migraine headaches- Primary Essential hypertension (CMS/HCC) Unspecified essential hypertension Type 2 diabetes mellitus with diabetic neuropathy, with long-term current use of insulin (CMS/HCC) Temporal pain documented in this encounter Administered Medications Inactive Administered Medications - up to 3 most recent administrations Medication Order MAR Action Action Date Dose Rate Site ketorolac (Toradol) injection 60 mg 60 mg, Intramuscular, Once, On Fri12/28/24 at 1215, For 1 dose, Max daily dose: 120 mg. Max duration: 5 days totalIndications:Temporal pain Given 12/28/2024 12:08 PM EDT 60 mg Right Gluteal documented in this encounter Care Teams Primary Care Nurse Relationship Specialty Start Date End Date Darrius Orr MD [address] [facility] [address] [place] [address] PCP - [employer] 08/04/19 Darrius Orr MD [address] [place] [address] PCP - General Internal Medicine 12/31/22 Aiden Linares DPM [address] [facility] [address] [place] [address] Referring Physician Podiatry 10/30/23 Kai Gutierres DO [address] [facility] [address] [place] [address] Referring Physician Neurology 02/24/24 documented as of this encounter
[2024-12-28 20:51] VITALS: BP 210/114; PULSE 76; TEMP 36.6; O2SAT 95; BMI 51.7
--- OUTSIDE RECORDS SUMMARY | 2024-12-28 20:51 | XMS_ITS | Encounter Summary ---
Author Organization [facility] Address [address] [place] [address] Phone Care Team Providers Care Automotive Design Layout Drafter Name Role Phone Darrius Orr MD Primary Care Provider Encounter Details Date Type Department Care Team (Late st Contact Info) Description 03/11/2023 Scanned Document [facility] [address] [place] [address] Conversion, Onbase Social History Tobacco Use Types Packs/Day Years Used Date Smoking Tobacco: Never Assessed Sex and Gender Information Value Date Recorded Sex Assigned at Not on file Legal Sex Male 6:29 PM EST Gender Identity Not on file Sexual Orientation Not on file documented as of this encounter Plan of Treatment Not on file documented as of this encounter Procedures Procedure Name Priority Date/Time Associated Diagnosis Comments ECHOCARDIOGRAM 03/11/2023 documented in this encounter Results * ECHOCARDIOGRAM (03/11/2023) Narrative 03/11/2023 Ordered by an unspecified provider. us Onbase Conversion CV ECHO PROCEDURES Final Resul t documented in this encounter Visit Diagnoses Not on filedocumented in this encounter Care Teams Automotive Design Layout Drafter Relationship Specialty Start Date End Date Darrius Orr MD [address] [place] [address] PCP - General 01/28/19 documented as of this encounter
--- OUTSIDE RECORDS SUMMARY | 2024-12-28 20:51 | XMS_ITS | Encounter Summary ---
Author Organization [facility] Address [address] [place] [address] Care Team Providers Care Sports Development Officer Name Role Phone Camila Rodriguez MD Primary Care Provider [phone] Adebayo Reddy MD Primary Care Provider [phone] Ed Alfredo DO Primary Care Provider [phone] Darrius Orr MD Primary Care Provider [phone] Darrius Orr MD Unavailable [phone] Source Comments In the event this information is protected by the Federal Confidentiality of Alcohol and Drug AbusePatient Records regulations: The Federal rules restrict any use of the information to criminally investigate or prosecute any alcohol or drug abuse patient.[facility] Encounter Details Date Type Department Care Team (Late st Contact Info) Description 12/26/2011 Patient Msg Medical Records [address] [place] [address] Provider, [facility] RE: Request an Appointment Social History Tobacco Use Types Packs/Day Years Used Date Smoking Tobacco: Every Day Cigarettes 0.5 20 Smokeless Tobacco: Never Alcohol Use Standard Drinks/Week Comments No 0 (1 standard drink = 0.6 oz pur e alcohol) Sex and Gender Information Value Date Recorded Sex Assigned at Male 04/11/2020 7:52 AM EDT Legal Sex Male 10:06 AM EST Gender Identity Male 04/11/2020 7:52 AM EDT Sexual Orientation Choose not to disclose 2019 7:52 AM EDT Occupation Industry Job Start Date Job End Date Not on file Not on file Not on file Not on file documented as of this encounter Plan of Treatment Not on file documented as of this encounter Visit Diagnoses Not on filedocumented in this encounter Care Teams Sports Development Officer Relationship Specialty Start Date End Date Camila Rodriguez MD [address] [place] [address] PCP - General 10/13/09 12/28/12 Adebayo Reddy MD [address] [place] [address] PCP - General Family Medicine 12/29/12 08/15/14 Ed Alfredo DO [address] [place] [address] PCP - General Family Medicine 08/16/14 08/31/19 Darrius Orr MD [address] [place] [address] PCP - General Internal Medicine 09/01/19 Darrius Orr MD [address] [place] [address] Referring Internal Medicine 11/16/24 documented as of this encounter
--- OUTSIDE RECORDS SUMMARY | 2024-12-28 20:51 | XMS_ITS | Encounter Summary ---
Author Organization [facility] Address [address] [place] [address] Care Team Providers Care Complaint Adjuster Name Role Phone Camila Rodriguez MD Primary Care Provider + [phone] Adebayo Reddy MD Primary Care Provider +[phone] Ed Alfredo DO Primary Care Provider + [phone] Darrius Orr MD Primary Care Provider +[phone] Darrius Orr MD Unavailable [phone] Source Comments In the event this information is protected by the Federal Confidentiality of Alcohol and Drug AbusePatient Records regulations: The Federal rules restrict any use of the information to criminally investigate or prosecute any alcohol or drug abuse patient.[facility] Encounter Details Date Type Department Care Team (Late st Contact Info) Description 10/26/2011 Patient Msg Medical Records [address] [place] [address] Provider, Ccf RE: Request an Appointment Social [...] on filedocumented in this encounter Care Teams Complaint Adjuster Relationship Specialty Start Date End Date Camila Rodriguez MD [address] [place] [address] PCP - General 10/13/09 12/28/12 Adebayo Reddy MD [address] [place] [address] PCP - General Family Medicine 12/29/12 08/15/14 Ed Alfredo DO [address] [place] [address] PCP - General Family Medicine 08/16/14 08/31/19 Darrius Orr MD [address] [place] [address] PCP - General Internal Medicine 09/01/19 Darrius Orr MD [address] [place] [address] Referring Internal Medicine 11/16/24 documented as of this encounter
--- OUTSIDE RECORDS SUMMARY | 2024-12-28 20:51 | XMS_ITS | Encounter Summary ---
Author Organization [facility] Address [address] [place] [address] Care Team Providers Care Manager Erp Name Role Phone Camila Rodriguez MD Primary Care Provider [phone] Lizeth Tillman MD Primary Care Provider [phone] Clinton Gonzales MD Primary Care Provider + [phone] Rich Chun MD Primary Care Provider [phone] Wally Monroe MD Primary Care Provider +[phone] Rich Chun MD Primary Care Provider +[phone] Wally Monroe MD Primary Care Provider [phone] Rich Chun MD Primary Care Provider +[phone] Adebayo Reddy MD Primary Care Provider +[phone] Ed Alfredo DO Primary Care Provider [phone] Darrius Orr MD Primary Care Provider +[phone] Darrius Orr MD Unavailable [phone] Source Comments In the event this information is protected by the Federal Confidentiality of Alcohol and Drug AbusePatient Records regulations: The Federal rules restrict any use of the information to criminally investigate or prosecute any alcohol or drug abuse patient.[facility] Encounter Details Date Type Department Care Team (Late st Contact Info) Description 01/27/2006 Patient Msg Medical Records [address] [place] [address] Provider, Ccf RE: Appointment Cancellation Request Social History Tobacco Use Types Packs/Day Years Used Date Smoking Tobacco: Every Day Cigarettes 1 20 Alcohol Use Standard Drinks/Week Comments No 0 (1 standard drink = 0.6 oz pur e alcohol) Sex and Gender Information Value Date Recorded Sex Assigned at Male 04/11/2020 7:52 AM EDT Legal Sex Male 10:06 AM EST Gender Identity Male 04/11/2020 7:52 AM EDT Sexual Orientation Choose not to disclose 2019 7:52 AM EDT documented as of this encounter Plan of Treatment Not on file documented as of this encounter Visit Diagnoses Not on filedocumented in this encounter Care Teams Manager Erp Relationship Specialty Start Date End Date Camila Rodriguez MD [address] [facility] [place] [address] PCP - General 10/13/09 12/28/12 Lizeth Tillman MD [address] [facility] [place] [address] PCP - General 08/16/09 10/12/09 Clinton Gonzales MD [address] [facility] [place] [address] PCP - General 09/02/08 08/15/09 Rich Chun MD [address] [facility] [place] [address] PCP - General 11/27/06 09/01/08 Wally Monroe MD [address] [place] [address] PCP - General 10/29/06 11/26/06 Rich Chun MD [address] [place] [address] PCP - General 10/28/06 10/28/06 Wally Monroe MD [address] [place] [address] PCP - General 10/15/06 10/27/06 Rich Chun MD [address] [place] [address] PCP - General 11/07/05 10/14/06 Adebayo Reddy MD [address] [facility] [place] [address] PCP - General Family Medicine 12/29/12 08/15/14 Ed Alfredo DO [address] [facility] [place] [address] PCP - General Family Medicine 08/16/14 08/31/19 Darrius Orr MD [address] [place] [address] PCP - General Internal Medicine 09/01/19 Darrius Orr MD [address] [place] [address] Referring Internal Medicine 11/16/24 documented as of this encounter
--- OUTSIDE RECORDS SUMMARY | 2024-12-28 20:51 | XMS_ITS | Encounter Summary ---
Author Organization [facility] Address [address] [place] [address] Care Team Providers Care Cloud Physicist Name Role Phone Camila Rodriguez MD Primary Care Provider + [phone] Adebayo Reddy MD Primary Care Provider +[phone] Ed Alfredo DO Primary Care Provider + [phone] Darrius Orr MD Primary Care Provider [phone] Darrius Orr MD Unavailable [phone] Source Comments In the event this information is protected by the Federal Confidentiality of Alcohol and Drug AbusePatient Records regulations: The Federal rules restrict any use of the information to criminally investigate or prosecute any alcohol or drug abuse patient.[facility] Encounter Details Date Type Department Care Team (Late st Contact Info) Description 11/19/2011 Patient Msg Medical Records [address] [place] [address] Provider, Ccf RE: Request an Appointment Social [...] on filedocumented in this encounter Care Teams Cloud Physicist Relationship Specialty Start Date End Date Camila Rodriguez MD [address] [place] [address] PCP - General 10/13/09 12/28/12 Adebayo Reddy MD [address] [place] [address] PCP - General Family Medicine 12/29/12 08/15/14 Ed Alfredo DO [address] [place] [address] PCP - General Family Medicine 08/16/14 08/31/19 Darrius Orr MD [address] [place] [address] PCP - General Internal Medicine 09/01/19 Darrius Orr MD [address] [place] [address] Referring Internal Medicine 11/16/24 documented as of this encounter
--- OUTSIDE RECORDS SUMMARY | 2024-12-28 20:51 | XMS_ITS | Encounter Summary ---
Author Organization [facility] Address [address] [place] [address] Care Team Providers Care Polishing Pad Mounter Name Role Phone Camila Rodriguez MD Primary Care Provider [phone] Lizeth Tillman MD Primary Care Provider [phone] Clinton Gonzales MD Primary Care Provider + [phone] Rich Chun MD Primary Care Provider [phone] Wally Monroe MD Primary Care Provider [phone] Rich Chun MD Primary Care Provider [phone] Wally Monroe MD Primary Care Provider [phone] Rich Chun MD Primary Care Provider [phone] Adebayo Reddy MD Primary Care Provider +[phone] Ed Alfredo DO Primary Care Provider [phone] Darrius Orr MD Primary Care Provider [phone] Darrius Orr MD Unavailable [phone] Source Comments In the event this information is protected by the Federal Confidentiality of Alcohol and Drug AbusePatient Records regulations: The Federal rules restrict any use of the information to criminally investigate or prosecute any alcohol or drug abuse patient.[facility] Encounter Details Date Type Department Care Team (Late st Contact Info) Description 03/21/2006 Patient Msg Medical Records [address] [place] [address] Provider, Ccf Appointment Cancellation Request Social History Tobacco Use [...] on filedocumented in this encounter Care Teams Polishing Pad Mounter Relationship Specialty Start Date End Date Camila Rodriguez MD [address] [facility] [place] [address] PCP - General 10/13/09 12/28/12 Lizeth Tillman MD [address] [facility] [place] [address] PCP - General 08/16/09 10/12/09 Clinton Gonzales MD [address] [facility] [place] [address] PCP - General 09/02/08 08/15/09 Rich Chun MD [address] [facility] [place] [address] PCP - General 11/27/06 09/01/08 Wally Monroe MD [address] [place] [address] PCP - General 10/29/06 11/26/06 Rich Chun MD [address] [place] [address] PCP - General 10/28/06 10/28/06 Wally Monroe MD [address] [place] [address] PCP - General 10/15/06 10/27/06 Rich Chun MD [address] [place] [address] PCP - General 11/07/05 10/14/06 Adebayo Reddy MD [address] [place] [address] PCP - General Family Medicine 12/29/12 08/15/14 Ed Alfredo DO [address] [place] [address] PCP - General Family Medicine 08/16/14 08/31/19 Darrius Orr MD [address] [place] [address] PCP - General Internal Medicine 09/01/19 Darrius Orr MD [address] [place] [address] Referring Internal Medicine 11/16/24 documented as of this encounter
--- OUTSIDE RECORDS SUMMARY | 2024-12-28 20:51 | XMS_ITS | Encounter Summary ---
Author Organization [facility] Address [address] [place] [address] Care Team Providers Care Research And Insights Executive Name Role Phone Camila Rodriguez MD Primary Care Provider + [phone] Adebayo Reddy MD Primary Care Provider [phone] Ed Alfredo DO Primary Care Provider + [phone] Darrius Orr MD Primary Care Provider [phone] Darrius Orr MD Unavailable [phone] Source Comments In the event this information is protected by the Federal Confidentiality of Alcohol and Drug AbusePatient Records regulations: The Federal rules restrict any use of the information to criminally investigate or prosecute any alcohol or drug abuse patient.[facility] Encounter Details Date Type Department Care Team (Late st Contact Info) Description 05/09/2012 Patient Msg Medical Records [address] [place] [address] Provider, Ccf RE: Request an Appointment Social [...] on filedocumented in this encounter Care Teams Research And Insights Executive Relationship Specialty Start Date End Date Camila Rodriguez MD [address] [place] [address] PCP - General 10/13/09 12/28/12 Adebayo Reddy MD [address] [place] [address] PCP - General Family Medicine 12/29/12 08/15/14 Ed Alfredo DO [address] [place] [address] PCP - General Family Medicine 08/16/14 08/31/19 Darrius Orr MD [address] [place] [address] PCP - General Internal Medicine 09/01/19 Darrius Orr MD [address] [place] [address] Referring Internal Medicine 11/16/24 documented as of this encounter
--- OUTSIDE RECORDS SUMMARY | 2024-12-28 20:51 | XMS_ITS | Encounter Summary ---
Author Organization [facility] Address [address] [place] [address] Care Team Providers Care Medical Staff Physician Name Role Phone Camila Rodriguez MD Primary Care Provider [phone] Lizeth Tillman MD Primary Care Provider [phone] Clinton Gonzales MD Primary Care Provider + [phone] Rich Chun MD Primary Care Provider [phone] Wally Monroe MD Primary Care Provider [phone] Rich Chun MD Primary Care Provider +[phone] Wally Monroe MD Primary Care Provider [phone] Rich Chun MD Primary Care Provider +[phone] Adebayo Reddy MD Primary Care Provider +[phone] Ed Alfredo DO Primary Care Provider [phone] Darrius Orr MD Primary Care Provider [phone] Darrius Orr MD Unavailable [phone] Source Comments In the event this information is protected by the Federal Confidentiality of Alcohol and Drug AbusePatient Records regulations: The Federal rules restrict any use of the information to criminally investigate or prosecute any alcohol or drug abuse patient.[facility] Encounter Details Date Type Department Care Team (Late st Contact Info) Description 03/21/2006 Patient Msg Medical Records [address] [place] [address] Provider, Ccf RE: Appointment Cancellation Request Social [...] on filedocumented in this encounter Care Teams Medical Staff Physician Relationship Specialty Start Date End Date Camila Rodriguez MD [address] [facility] [place] [address] PCP - General 10/13/09 12/28/12 Lizeth Tillman MD [address] [facility] [place] [address] PCP - General 08/16/09 10/12/09 Clinton Gonzales MD [address] [facility] [place] [address] PCP - General 09/02/08 08/15/09 Rich Chun MD [address] [facility] [place] [address] PCP - General 11/27/06 09/01/08 Wally Monroe MD [address] [place] [address] PCP - General 10/29/06 11/26/06 Rich Chun MD [address] [place] [address] PCP - General 10/28/06 10/28/06 Wally Monroe MD [address] [place] [address] PCP - General 10/15/06 10/27/06 Rich Chun MD [address] [place] [address] PCP - General 11/07/05 10/14/06 Adebayo Reddy MD [address] [facility] [place] [address] PCP - General Family Medicine 12/29/12 08/15/14 Ed Alfredo DO [address] [facility] [place] [address] PCP - General Family Medicine 08/16/14 08/31/19 Darrius Orr MD [address] [place] [address] PCP - General Internal Medicine 09/01/19 Darrius Orr MD [address] [place] [address] Referring Internal Medicine 11/16/24 documented as of this encounter
--- OUTSIDE RECORDS SUMMARY | 2024-12-28 20:51 | XMS_ITS | Encounter Summary ---
Author Organization [facility] Address [address] [place] [address] Care Team Providers Care Cap Maker Name Role Phone Camila Rodriguez MD Primary Care Provider [phone] Lizeth Tillman MD Primary Care Provider [phone] Clinton Gonzales MD Primary Care Provider + [phone] Rich Chun MD Primary Care Provider [phone] Wally Monroe MD Primary Care Provider [phone] Rich Chun MD Primary Care Provider +[phone] Wally Monroe MD Primary Care Provider [phone] Rich Chun MD Primary Care Provider +[phone] Adebayo Reddy MD Primary Care Provider +[phone] Ed Alfredo DO Primary Care Provider +[phone] Darrius Orr MD Primary Care Provider [phone] Darrius Orr MD Unavailable [phone] Source Comments In the event this information is protected by the Federal Confidentiality of Alcohol and Drug AbusePatient Records regulations: The Federal rules restrict any use of the information to criminally investigate or prosecute any alcohol or drug abuse patient.[facility] Encounter Details Date Type Department Care Team (Late st Contact Info) Description 03/12/2006 Patient Msg Medical Records [address] [place] [address] Provider, Ccf Appointment Cancellation Request Social History [...] on filedocumented in this encounter Care Teams Cap Maker Relationship Specialty Start Date End Date Camila Rodriguez MD [address] [facility] [place] [address] PCP - General 10/13/09 12/28/12 Lizeth Tillman MD [address] [facility] [place] [address] PCP - General 08/16/09 10/12/09 Clinton Gonzales MD [address] [facility] [place] [address] PCP - General 09/02/08 08/15/09 Rich Chun MD [address] [facility] [place] [address] PCP - General 11/27/06 09/01/08 Wally Monroe MD [address] [place] [address] PCP - General 10/29/06 11/26/06 Rich Chun MD [address] [place] [address] PCP - General 10/28/06 10/28/06 Wally Monroe MD [address] [place] [address] PCP - General 10/15/06 10/27/06 Rich Chun MD [address] [place] [address] PCP - General 11/07/05 10/14/06 Adebayo Reddy MD [address] [place] [address] PCP - General Family Medicine 12/29/12 08/15/14 Ed Alfredo DO [address] [place] [address] PCP - General Family Medicine 08/16/14 08/31/19 Darrius Orr MD [address] [place] [address] PCP - General Internal Medicine 09/01/19 Darrius Orr MD [address] [place] [address] Referring Internal Medicine 11/16/24 documented as of this encounter
--- OUTSIDE RECORDS SUMMARY | 2024-12-28 20:51 | XMS_ITS | Clinical Summary ---
Author Organization [facility] Address [facility] [place] [address] Care Team Providers Care Senior Maintenance Mechanic Name Role Phone Darrius Orr MD Primary Care Provider [phone] Darrius Orr MD Unavailable [phone] Allergies Active Allergy Reactions Criticality Noted Date Comments Semaglutide Other: See Comments 11/21/2020 Chills, nightmares, diarrhea Medications Bimatoprost (LUMIGAN) 0.01 % OPHTHALMIC DropIndications:Ot her specified glaucoma Use 1 Drop in both eyes once daily. 0 11/27/19 12 Active aspirin, enteric coated (ASPIRIN, ENTERIC COATED) 81 mg EC tablet Take 81 mg by mouth once daily. Active metoprolol succinate XL, long acting, (TOPROL XL) 25 mg 24 hr tablet Take 25 mg by mouth once daily. Active ketoconazole (NIZORAL) 2 % cream Apply to rash on thighs twice daily until rash is gone. 60 g 1 12/20/19 15 Active ergocalciferol, vitamin D2, (VITAMIN D) 50,000 unit capsule Take 1 capsule by mouth once each week. 4 capsule 2 01/26/20 15 Active Additional Information Patient not taking.Reason: Changing Therapy/Dosage Form (lower dosage), Reported on 10/26/2019 venlafaxine (EFFEXOR) 75 mg tablet Take 1 tablet by mouth twice daily. 60 tablet 11 05/16/20 15 Active Podofilox (PODOFILOX) 0.5 % external solution Apply to lesions twice daily x 3 days on, then 4 days off. 3.5 mL 3 06/16/20 15 Active dimethyl fumarate (TECFIDERA) 240 mg cpDR Take 240 mg by mouth twice daily. 180 capsule 0 02/09/20 16 Active labetalol (TRANDATE) 300 mg tablet Take 300 mg by mouth once daily. Labetalol HCL 300mg 3 times daily (per pt report) Active diclofenac, EC, (VOLTAREN) 75 mg EC tablet Take 75 mg by mouth twice daily. Active hydroCHLOROthiazid e (HYDRODIURIL, ESIDRIX) 25 mg tablet Take 25 mg by mouth once daily. Active labetalol (TRANDATE) 100 mg tablet Take 100 mg by mouth three times daily. Active irbesartan (AVAPRO) 300 mg tablet Take 300 mg by mouth once daily. Active cholecalciferol (VITAMIN D-3) 5,000 unit tab Take 5,000 Units by mouth daily with food. Active diclofenac sodium (VOLTAREN) 1 % topical gel apply FOUR grams topically FOUR TIMES DAILY NEEDED 09/01/19 Active rosuvastatin (CRESTOR) 20 mg tabletIndications: Hyperlipidemia, unspecified hyperlipidemia type Take 1 tablet by mouth once daily. 90 tablet 3 11/22/19 21 Active empagliflozin (JARDIANCE) 10 mg tabletIndications: Diabetes mellitus type 2 in obese Take 1 tablet by mouth once daily. 90 tablet 3 11/22/19 21 Active insulin degludec (TRESIBA FLEXTOUCH U-200) 200 unit/mL (3 mL) injectionIndicatio ns:Diabetes mellitus type 2 in obese Inject 100 Units subcutaneously daily at bedtime. 12 Pen 3 11/27/19 21 Active Active Problems Problem Noted Date Diagnosed Date Diabetes mellitus with neuro logical manifestations, controlled 08/22/2015 Elevated sed rate 02/23/2014 Elevated C-reactive protein (CRP) 02/23/2014 Cervicalgia 02/23/2014 Migraine 02/23/2014 Polyuria 02/23/2014 OA (osteoarthritis) of knee 02/11/2014 Cervical spondylosis without myelopathy 02/20/20 13 Headache(784.0) 01/08/2013 SALVADOR (headache) 10/14/2012 Ingrown nail 04/10/2012 Tinea cruris 02/04/2012 Dermatofibroma 02/04/2012 B12 deficiency 09/01/2011 Patellofemoral syndrome 04/27/2011 Edema leg 03/05/2011 Nail, ingrown 04/19/2010 Ingrown right big toenail 03/06/2010 Benign neoplasm of skin of o ther and unspecified parts of face 03/06/2010 Neoplasm of uncertain behavior of skin 0 MS (multiple sclerosis) 01/17/2010 Overview (01/17/2010): Diagnosed by Dr. Gonzalez on 01/16/2010 Foot pain 12/29/2009 Varicose veins of lower extr emities with other complications 08/22/2009 Type II or unspecified type diabetes mellitus with neurological manifestations, not stated as uncontrolled(250.60) 09/28/2008 Hyperparathyroidism, unspecified 09/02/2008 Overview (09/02/2008): in the setting of Vitamin D deficiency Unspecified vitamin D deficiency 09/02/2008 Sebaceous cyst 07/05/2008 Edema 06/21/2008 Contact dermatitis and other eczema, due to unspecified cause 06/06/2008 Ingrowing nail 10/15/2007 Depressive disorder, not elsewhere classified OA (OSTEOARTHRITIS) LOCALIZED, PRIMARY( Lower Le g) 06/09/2006 INTERNAL DERANGEMENT KNEE-CHRONIC MEDIAL MENISCU S- UNSPEC 06/09/2006 Sacroiliitis, not elsewhere classified 6 Psoriatic arthropathy 02/11/2006 Achilles bursitis or tendinitis 01/14/2006 Overview (01/14/2006): RIGHT Other psoriasis 01/14/2006 Overview (01/14/2006): POSSIBLE EXCESSIVE OBESITY 03/05/2005 Other specified glaucoma Unspecified essential hypertension Generalized osteoarthrosis, unspecified site Type II or unspecified type diabetes mellitus without mention of complication, not stated as uncontrolled Resolved Problems Problem Noted Date Diagnosed Date Resolved Date Anal fissure and fistula 12/02/2006 Rheumatoid arthritis(714.0) 03/05/2005 12/29/2012 Encounters Date Type Department Care Team Description 12/07/2024 Patient [facility] [place] [address] Ludy Pastrana RPh At your next appointment, choose [facility]. 12/07/2024 Patient [facility] [place] [address] Ludy Pastrana RPh At your next appointment, choose [facility]. from Last 3 Months Immunizations Immunization Administration Dates Next Due influenza vaccine, unspecified formulation 06/30 pneumococcal polysaccharide (PPV23) vaccine, 23 valent (PNEUMOVAX 23) 03/19/2006 tuberculin skin test (TST-PP D), purified protein derivative, intradermal 11/18/2008 Family History Medical History Relation Comments Hypertension Father Heart Maternal Grandfather Heart Attac k Diabetes Paternal Grandmother Heart Paternal Grandmother Heart Failu re Relation Status Comments Father (Age 50) DM CHF Lver fa ilure Maternal Grandfather Maternal Grandmother Alive throat canc er Mother Alive Other 1 Alive (Age 30) half brother Other 2 Alive (Age 38) half sister Paternal Grandfather Paternal Grandmother Sister 1 Alive Sister 2 Alive (Age 42) Social History Tobacco Use Types Packs/Day Years Used Date Smoking Tobacco: Former Cigarettes Q uit: 08/18/2012 Smokeless Tobacco: Never Alcohol Use Standard Drinks/Week Comments No 0 (1 standard drink = 0.6 oz pur e alcohol) PHQ-2 Answer Date Recorded PHQ-2 score 6 10/26/2019 Area Deprivation Index Answer Date Jaydon rded National Score (1-100), lower number is lower ri sk 91 12/15/2024 State Score (1-10), lower number is lower risk 9 12/15/2024 Data from: https://www.neighborhoodatlas.medicine.[facility].edu/. Last address used for calculation [address] 12/15/2024 Sex and Gender Information Value Date Recorded Sex Assigned at Male 04/11/2020 7:52 AM EDT Legal Sex Male 10:06 AM EST Gender Identity Male 04/11/2020 7:52 AM EDT Sexual Orientation Choose not to disclose 2019 7:52 AM EDT Occupation Industry Job Start Date Job End Date Not on file Not on file Not on file Not on file Last Filed Vital Signs Vital Sign Reading Time Taken Comments Blood Pressure 188/104 11/21/2020 9:00 AM EDT Pulse 64 11/21/2020 9:00 AM EDT Temperature 36.6 C (97.8 F) 10/26/2019 11:19 AM EDT Respiratory Rate 24 01/24/2015 2:32 PM EDT Oxygen Saturation 96% 03/21/2014 9:19 AM EDT Inhaled Oxygen Concentration - - Weight 172.8 kg (381 lb) 11/21/2020 9:00 AM EDT Height 175.3 cm (5' 9 ) 10/26/2019 11:19 AM EDT Body Mass Index 56.26 10/26/2019 11:19 AM EDT Plan of Treatment Health Maintenance Due Date Last Done Comments Annual PCP Team Chronic Dise ase Visit 1989 Anxiety Screening 1989 BP Controlled (<130/80) 1989 DTaP,Tdap,Td Vaccine (1 - Tdap) 1990 Hepatitis B Vaccine (1 of 3 - 19+ 3-dose series) 1990 11/26/2017 Dilated Retinal Exam 02/14/2015 02/14/2014, 09/18/2011, 06/21/2010, Additional history exists CT Colonography 2016 Cologuard (FIT-DNA) 2016 Fecal Occult Blood 2016 Sigmoidoscopy 2016 Diabetic Foot Exam 08/22/2016 08/22/2015, 0 02/15/2015, 10/20/2014, Additional history exists Colonoscopy 01/28/2020 01/27/2019 Colorectal Cancer Screening 01/28/2020 LDL Cholesterol 04/17/2021 04/17/2020, 02/01, 05/05/2012, Additional history exists Urine Albumin:Creatinine Ratio 04/17/2021 0 04/17/2020, 12/29/2008, 03/19/2006, Additional history exists Shingrix Vaccine (1 of 2) 2021 Covid-19 Vaccine (3 - 2023-2 5 season) 2024 11/30/2020, 11/09/2020 HbA1C 11/29/2024 08/31/2024, 05/04, 05/21/2024, Additional history exists Influenza Vaccine (Season Ended) 2025 06/30/20 07 HIV Screening Completed 02/08/2009 Hepatitis C Screening Completed 02/08/2009 , 06/03/2008, 01/14/2006 Pneumococcal Vaccine: 50+ Completed 12/05/2021, Procedures Procedure Name Priority Date/Time Associated Diagnosis Comments HEMOGLOBIN A1C (POC) Routine 11/21/2020 8:48 AM EDT Diabetes mellitus type 2 in obese (HCC) *CREATININE OTHER SOURCE ASSAY Routine 04/17/2020 12:23 PM EDT Diabetes mellitus type 2 in obese (HCC) LIPID PANEL, FASTING Routine 04/17/2020 12:21 PM EDT Hyperlipidemia, unspecified hyperlipidemia type HIV 1/2 COMBO WITH REFLEX TO DIFFERENTIATION Routine 02/08/2009 12:57 PM EDT Dysuria OTH SYMPTM URINARY SYSTM Male Genital Dis Nec Venereal Dis Contact HEP REMOTE PANEL BL Routine 02/08/2009 1 2:57 PM EDT Dysuria OTH SYMPTM URINARY SYSTM Male Genital Dis Nec Venereal Dis Contact from Last 3 Months or Most Recently Relevant to Health Maintenance Results * (ABNORMAL) HEMOGLOBIN A1C (POC) (11/21/2020 8:48 AM EDT) Hemoglobin A1C (POCT) 11.0(A) 4.2 - 5.6 % [facility] Comment: Point of care (POC) Hemoglobin A1c (HGBA1C) testing is intended to assess glucose control and provide a management tool for patients known to have diabetes and their healthcare providers. Target HGBA1C levels may depend on specific clinical circumstances. POC HGBA1C is not intended for use as a diagnostic or screening test; laboratory-based testing should be used for diagnostic purposes. The following information is supplemental and may not be applicable to specific diabetes management situations: The POC device well treatment offsider provides a normal range of 4.2% to 6.5% for the HGBA1C POC test. However, the [place] Diabetes Association guidelines indicate that patients with HGBA1C in the range of 5.7% to 6.4% are at increased risk for development of diabetes and that intervention by lifestyle modification may be beneficial. A HGBA1C level greater than or equal to 6.5% is considered diagnostic of diabetes, pending confirmatory testing. Use of HGBA1C testing to evaluate glucose control may not be appropriate for patients with hemoglobin variants or other conditions (e.g. anemia) that alter red blood cell lifespan. BLOOD SPECIMEN / Unknown 11/21/2020 8:48 AM EDT us Wally Puga MD POC TESTING Final Resu lt Performing Organization Address [facility] Co de Phone Number [facility] * (ABNORMAL) ALBUMIN/CREAT RATIO RND UR (04/17/2020 12:23 PM EDT) Creatinine, Ur Random (UCRR) 252.3 20 - 300 mg/dL 04/17/2020 7:16 PM EDT [facility] Albumin, Urine Random 303.3 mg/L 04/17/2020 7:16 PM EDT [facility] Albumin/Creat Ratio 120(H) <30 mg/g 04/17/2020 7:16 PM EDT [facility] Comment: Adult Male and Female Nephrotic Criteria: <30 mg/g is considered normal to mildly increased 30-300 mg/g is considered moderately increased >300 mg/g is considered severely increased KDIGO. (2013). KDIGO 2012 Clinical Practice Guideline for the Evaluation and Management of Chronic Kidney Disease. Official Journal of the International Society of Nephrology, 3(1), 1-150. Urine specimen (specimen) URINE SPECIMEN / Unknown 04/17/2020 12:23 PM EDT 04/17/2020 12:26 PM EDT Wally Puga MD LABORATORY Final Resu lt Performing Organization Address [facility]/ZIP Co de Phone Number [facility] [address] [place] [address] [facility] [address] [place] [address] * (ABNORMAL) LIPID PANEL BASIC (04/17/2020 12:21 PM EDT) Cholesterol, Total 167 <200 mg/dL 04/17/2020 6:13 PM EDT [facility] Comment: <200 mg/dL, Desirable 200-239 mg/dL, Borderline high >239 mg/dL, High Triglyceride 83 <150 mg/dL 04/17/2020 6:13 PM [facility] Comment: <150 mg/dL, Normal 150-199 mg/dL, Borderline high 200-499 mg/dL, High >499 mg/dL, Very high HDL Cholesterol 44 >39 mg/dL 0 6:13 PM [facility] Comment: 40-59 mg/dL, Acceptable >59 mg/dL, High: Negative risk factor for coronary heart disease <40 mg/dL, Low: Positive risk factor for coronary heart disease LDL Cholesterol, Calculated 106(H) <100 mg/dL 04/17/2020 6:13 PM [facility] Comment: <100 mg/dL, Optimal 100-129 mg/dL, Near optimal/above optimal 130-159 mg/dL, Borderline high 160-189 mg/dL, High >189 mg/dL, Very high Secondary prevention optimal LDL Cholesterol levels are recommended to be < 70 mg/dL Non HDL Cholesterol 123 <130 mg/dL 04/17/2020 6:13 PM [facility] Comment: <130 mg/dL, Optimal 130-159 mg/dL, Near optimal/above optimal 160-189 mg/dL, Borderline high 190-219 mg/dL, High >219 mg/dL, Very high Secondary prevention optimal non HDL Cholesterol levels are recommended to be < 100 mg/dL Fasting Time 12 hrs 04/17/2020 12:23 PM [facility] VLDL Cholesterol 17 <30 mg/dL 04/17/20 20 6:13 PM [facility] TC:HDL Ratio 3.80 <5.10 04/17/2020 6:13 PM [facility] LDL:HDL Ratio 2.41 <2.54 04/17/2020 6:13 PM [facility] Comment: Reference: 1. National Cholesterol Education Program ATP III Guideline At-A-Glance Quick Desk Reference: National Heart, Lung, and Blood [place]. National Institutes of Health. 2001: NIH Publication No. 01-3305. 2. An International Atherosclerosis Society position paper: global recommendations for the management of dyslipidemia: executive summary, Atherosclerosis. 2014: 232(2):410-413. Blood specimen (specimen) BLOOD SPECIMEN / Unknown 04/17/2020 12:21 PM EDT 04/17/2020 12:23 PM EDT Wally Puga MD LABORATORY Final Resu lt [facility] [address] [place] [address] [facility] [address] [place] [address] [facility] [address] [facility], [facility] * HIV AB 1&2 SCREEN (02/08/2009 12:57 PM EDT) HIV 1 & 2 Ab (EIA) Non Reactive NR [facility] Comment: If results are indeterminate or otherwise inconsistent with an individual's clinical presentation or risk profile for HIV infection a repeat specimen is requested. A repeat specimen is also recommended for any individual identified positive for the first time. Blood specimen (specimen) BLOOD SPECIMEN / Unknown 02/08/2009 12:57 PM EDT Clinton Gonzales MD LABORATORY Final Resu lt Performing Organization Address [facility]/ZIP Co de Phone Number [facility] [address] [place] [address] * HEP REMOTE PANEL BL (02/08/2009 12:57 PM EDT) Hep B Core Ab, Total Negative NEGAT [facility] Hep C Antibody IA Negative NEGAT [facility] HBsAg Negative NEGAT [facility] Hep B Surface Ab, Qual Negative [facility] Comment: A negative Hepatitis B Surface Antibody is indicative of: 1)no prior exposure to HBV, 2)lack of antibody response to an acute or chronic HBV infection, 3)lack of antibody response to HBV vaccination, or, 4)loss of immunity that followed either vaccination or infection. Blood specimen (specimen) BLOOD SPECIMEN / Unknown 02/08/2009 12:57 PM EDT Clinton Gonzales MD LABORATORY Final Resu lt [facility] [address] [place] [address] from Last 3 Months or Most Recently Relevant to Health Maintenance Insurance [place]ICAID [place] [employer] Advance Directives Documents on File Type Date Recorded Patient Bus Mechanic Expl anation Advance Directive(s) 02/08/2010 1:29 PM Care Teams Senior Maintenance Mechanic Relationship Specialty Start Date End Date Darrius Orr MD [address] [place] [address] PCP - General Internal Medicine 09/01/19 Darrius Orr MD [address] [place] [address] Referring Internal Medicine 11/16/24
--- OUTSIDE RECORDS SUMMARY | 2024-12-28 20:51 | XMS_ITS | Clinical Summary ---
Author Organization [facility] Address [address] [place] [address] Phone Care Team Providers Care Sales Agent Business Services Name Role Phone Darrius Orr MD Primary Care Provider Social History Tobacco Use Types Packs/Day Years Used Date Smoking Tobacco: Never Assessed Sex and Gender Information Value Date Recorded Sex Assigned at Not on file Legal Sex Male 6:29 PM EST Gender Identity Not on file Sexual Orientation Not on file Plan of Treatment Health Maintenance Due Date Last Done Comments CT Colonography 1971 Colonoscopy 1971 Colorectal Cancer Screening 1971 FIT-DNA (Cologuard) 1971 FIT 1971 HIV Screening 1971 Lipid Panel 1971 Sigmoidoscopy 1971 Yearly Adult Physical 1971 MMR Vaccines (1 of 1 - Stand giancarlo series) 1972 Hepatitis C Screening 1989 Hepatitis B Vaccines (1 of 3 - 19+ 3-dose series) 1990 DTaP/Tdap/Td Vaccines (1 - Tdap) 1993 Pneumococcal Vaccine (1 of 1 - PCV) 2021 Zoster Vaccines (1 of 2) 2021 COVID-19 Vaccine (1 - 2023-2 5 season) 2024 Influenza Vaccine (Season Ended) 2025 HIB Vaccines Aged Out No longer eligi ble based on patient's age to complete this topic HPV Vaccines Aged Out No longer eligi ble based on patient's age to complete this topic Hepatitis A Vaccines Aged Out No long er eligible based on patient's age to complete this topic IPV Vaccines Aged Out No longer eligi ble based on patient's age to complete this topic Meningococcal Vaccine Aged Out No ari markus eligible based on patient's age to complete this topic Rotavirus Vaccines Aged Out No longer eligible based on patient's age to complete this topic Care Teams Sales Agent Business Services Relationship Specialty Start Date End Date Darrius Orr MD [address] [place] [address] PCP - General 01/28/19
--- OUTSIDE RECORDS SUMMARY | 2024-12-28 20:51 | XMS_ITS | Encounter Summary ---
Author Organization [facility] Address [address] [place] [address] Care Team Providers Care Boat Cleaner Name Role Phone Camila Rodriguez MD Primary Care Provider [phone] Lizeth Tillman MD Primary Care Provider [phone] Clinton Gonzales MD Primary Care Provider [phone] Rich Chun MD Primary Care Provider [phone] Wally [place] MD Primary Care Provider [phone] Rich Chun MD Primary Care Provider [phone] Wally [place] MD Primary Care Provider [phone] Rich Chun MD Primary Care Provider [phone] Adebayo Reddy MD Primary Care Provider [phone] Ed Alfredo DO Primary Care Provider [phone] Darrius Orr MD Primary Care Provider [phone] Darrius Orr MD Unavailable [phone] Source Comments In the event this information is protected by the Federal Confidentiality of Alcohol and Drug AbusePatient Records regulations: The Federal rules restrict any use of the information to criminally investigate or prosecute any alcohol or drug abuse patient.[facility] Encounter Details Date Type Department Care Team (Late st Contact Info) Description 03/12/2006 Patient Msg Medical Records [address] [place] [address] Provider, Pilarf Flaco Social History Tobacco Use Types Packs/Day Years [...] on filedocumented in this encounter Care Teams Boat Cleaner Relationship Specialty Start Date End Date Camila Rodriguez MD [address] [facility] [address] [place] [address] PCP - General 10/13/09 12/28/12 Lizeth Tillman MD [address] [place] [address] PCP - General 08/16/09 10/12/09 Clinton Gonzales MD [address] [facility] [place] [address] PCP - General 09/02/08 08/15/09 Rich Chun MD [address] [facility] [place] [address] PCP - General 11/27/06 09/01/08 Wally Monroe MD [address] [place] [address] PCP - General 10/29/06 11/26/06 Rich Chun MD [address] [place] [address] PCP - General 10/28/06 10/28/06 Wally Monroe MD [address] [place] [address] PCP - General 10/15/06 10/27/06 Rich Chun MD [address] [place] [address] PCP - General 11/07/05 10/14/06 Adebayo Reddy MD [address] [place] [address] PCP - General Family Medicine 12/29/12 08/15/14 Ed Alfredo DO [address] [place] [address] PCP - General Family Medicine 08/16/14 08/31/19 Darrius Orr MD [address] [place] [address] PCP - General Internal Medicine 09/01/19 Darrius Orr MD [address] [place] [address] Referring Internal Medicine 11/16/24 documented as of this encounter
--- OUTSIDE RECORDS SUMMARY | 2024-12-28 20:51 | XMS_ITS | Encounter Summary ---
Author Organization [facility] Address [address] [place] [address] Care Team Providers Care Head Silverman Name Role Phone Camila Rodriguez MD Primary Care Provider [phone] Lizeth Tillman MD Primary Care Provider [phone] Clinton Gonzales MD Primary Care Provider + [phone] Rich Chun MD Primary Care Provider [phone] Wally [place] MD Primary Care Provider [phone] Rich Chun MD Primary Care Provider [phone] Wally [place] MD Primary Care Provider [phone] Rich Chun MD Primary Care Provider [phone] Adebayo Reddy MD Primary Care Provider [phone] Ed Alfredo DO Primary Care Provider [phone] Darrius Orr MD Primary Care Provider [phone] Darrius Orr MD Unavailable [phone] Source Comments In the event this information is protected by the Federal Confidentiality of Alcohol and Drug AbusePatient Records regulations: The Federal rules restrict any use of the information to criminally investigate or prosecute any alcohol or drug abuse patient.[facility] Encounter Details Date Type Department Care Team (Late st Contact Info) Description 05/26/2006 Patient Msg Medical Records [address] [place] [address] Provider, Ccf RE: Appointment Cancellation Request Social [...] on filedocumented in this encounter Care Teams Head Silverman Relationship Specialty Start Date End Date Camila Rodriguez MD [address] [facility] [place] [address] PCP - General 10/13/09 12/28/12 Lizeth Tillman MD [address] [facility] [place] [address] PCP - General 08/16/09 10/12/09 Clinton Gonzales MD [address] [facility] [place] [address] PCP - General 09/02/08 08/15/09 Rich Chun MD [address] [facility] [place] [address] PCP - General 11/27/06 09/01/08 Wally Monroe MD [address] [place] [address] PCP - General 10/29/06 11/26/06 Rich Chun MD [address] [place] [address] PCP - General 10/28/06 10/28/06 Wally [place] MD [address] [place] [address] PCP - General 10/15/06 10/27/06 Rich Chun MD [address] [place] [address] PCP - General 11/07/05 10/14/06 Adebayo Reddy MD [address] [facility] [place] [address] PCP - General Family Medicine 12/29/12 08/15/14 Ed Alfredo DO [address] [facility] [place] [address] PCP - General Family Medicine 08/16/14 08/31/19 Darrius Orr MD [address] [place] [address] PCP - General Internal Medicine 09/01/19 Darrius Orr MD [address] [place] [address] Referring Internal Medicine 11/16/24 documented as of this encounter
--- OUTSIDE RECORDS SUMMARY | 2024-12-28 20:51 | XMS_ITS | Encounter Summary ---
Author Organization [facility] Address [address] [place] [address] Care Team Providers Care Assault Amphibious Vehicle Officer Name Role Phone Camila Rodriguez MD Primary Care Provider + [phone] Adebayo Reddy MD Primary Care Provider [phone] Ed Alfredo DO Primary Care Provider + [phone] Darrius Orr MD Primary Care Provider [phone] Darrius Orr MD Unavailable [phone] Source Comments In the event this information is protected by the Federal Confidentiality of Alcohol and Drug AbusePatient Records regulations: The Federal rules restrict any use of the information to criminally investigate or prosecute any alcohol or drug abuse patient.[facility] Encounter Details Date Type Department Care Team (Late st Contact Info) Description 07/08/2012 Patient Msg Medical Records [address] [place] [address] Provider, Ccf RE: Request an Appointment Social [...] on filedocumented in this encounter Care Teams Assault Amphibious Vehicle Officer Relationship Specialty Start Date End Date Camila Rodriguez MD [address] [place] [address] PCP - General 10/13/09 12/28/12 Adebayo Reddy MD [address] [place] [address] PCP - General Family Medicine 12/29/12 08/15/14 Ed Alfredo DO [address] [place] [address] PCP - General Family Medicine 08/16/14 08/31/19 Darrius Orr MD [address] [place] [address] PCP - General Internal Medicine 09/01/19 Darrius Orr MD [address] [place] [address] Referring Internal Medicine 11/16/24 documented as of this encounter
--- OUTSIDE RECORDS SUMMARY | 2024-12-28 20:51 | XMS_ITS | Encounter Summary ---
Author Organization [facility] Address [address] [place] [address] Care Team Providers Care Fruit Inspector Name Role Phone Camila Rodriguez MD Primary Care Provider + [phone] Adebayo Reddy MD Primary Care Provider +[phone] Ed Alfredo DO Primary Care Provider + [phone] Darrius Orr MD Primary Care Provider [phone] Darrius Orr MD Unavailable [phone] Source Comments In the event this information is protected by the Federal Confidentiality of Alcohol and Drug AbusePatient Records regulations: The Federal rules restrict any use of the information to criminally investigate or prosecute any alcohol or drug abuse patient.[facility] Encounter Details Date Type Department Care Team (Late st Contact Info) Description 01/13/2012 Patient Msg Medical Records [address] [place] [address] Provider, Ccf RE: Appointment Cancellation Request Social [...] on filedocumented in this encounter Care Teams Fruit Inspector Relationship Specialty Start Date End Date Camila Rodriguez MD [address] [place] [address] PCP - General 10/13/09 12/28/12 Adebayo Reddy MD [address] [place] [address] PCP - General Family Medicine 12/29/12 08/15/14 Ed Alfredo DO [address] [place] [address] PCP - General Family Medicine 08/16/14 08/31/19 Darrius Orr MD [address] [place] [address] PCP - General Internal Medicine 09/01/19 Darrius Orr MD [address] [place] [address] Referring Internal Medicine 11/16/24 documented as of this encounter
--- OUTSIDE RECORDS SUMMARY | 2024-12-28 20:51 | XMS_ITS | Encounter Summary ---
Author Organization [facility] Address [address] [place] [address] Care Team Providers Care Board Saw Runner Name Role Phone Camila Rodriguez MD Primary Care Provider [phone] Adebayo Reddy MD Primary Care Provider [phone] Ed Alfredo DO Primary Care Provider + [phone] Darrius Orr MD Primary Care Provider [phone] Darrius Orr MD Unavailable [phone] Source Comments In the event this information is protected by the Federal Confidentiality of Alcohol and Drug AbusePatient Records regulations: The Federal rules restrict any use of the information to criminally investigate or prosecute any alcohol or drug abuse patient.[facility] Encounter Details Date Type Department Care Team (Late st Contact Info) Description 08/31/2012 Patient Msg Medical Records [address] [place] [address] Provider, Ccf RE: Request an Appointment Social [...] on filedocumented in this encounter Care Teams Board Saw Runner Relationship Specialty Start Date End Date Camila Rodriguez MD [address] [place] [address] PCP - General 10/13/09 12/28/12 Adebayo Reddy MD [address] [place] [address] PCP - General Family Medicine 12/29/12 08/15/14 Ed Alfredo DO [address] [place] [address] PCP - General Family Medicine 08/16/14 08/31/19 Darrius Orr MD [address] [place] [address] PCP - General Internal Medicine 09/01/19 Darrius Orr MD [address] [place] [address] Referring Internal Medicine 11/16/24 documented as of this encounter
--- OUTSIDE RECORDS SUMMARY | 2024-12-28 20:51 | XMS_ITS | Encounter Summary ---
Author Organization [facility] Address [address] [place] [address] Care Team Providers Care Marine Farmer Name Role Phone Camila Rodriguez MD Primary Care Provider [phone] Lizeth Tillman MD Primary Care Provider [phone] Clinton Gonzales MD Primary Care Provider + [phone] Rich Chun MD Primary Care Provider [phone] Wally Monroe MD Primary Care Provider +[phone] Rich Chun MD Primary Care Provider +[phone] Wally Monroe MD Primary Care Provider [phone] Rich Chun MD Primary Care Provider [phone] Adebayo Reddy MD Primary Care Provider +[phone] Ed Alfredo DO Primary Care Provider [phone] Darrius Orr MD Primary Care Provider [phone] Darrius Orr MD Unavailable [phone] Source Comments In the event this information is protected by the Federal Confidentiality of Alcohol and Drug AbusePatient Records regulations: The Federal rules restrict any use of the information to criminally investigate or prosecute any alcohol or drug abuse patient.[facility] Encounter Details Date Type Department Care Team (Late st Contact Info) Description 06/10/2006 Patient Msg Medical Records [address] [place] [address] Provider, Ccf RE: Appointment Cancellation Request Social [...] on filedocumented in this encounter Care Teams Marine Farmer Relationship Specialty Start Date End Date Camila Rodriguez MD [address] [facility] [place] [address] PCP - General 10/13/09 12/28/12 Lizeth Tillman MD [address] [facility] [place] [address] PCP - General 08/16/09 10/12/09 Clinton Gonzales MD [address] [facility] [place] [address] PCP - General 09/02/08 08/15/09 Rich Chun MD [address] [facility] [place] [address] PCP - General 11/27/06 09/01/08 Wally Monroe MD [address] [place] [address] PCP - General 10/29/06 11/26/06 Rich Chun MD [address] [place] [address] PCP - General 10/28/06 10/28/06 Wally Monroe MD [address] [place] [address] PCP - General 10/15/06 10/27/06 Rich Chun MD [address] [place] [address] PCP - General 11/07/05 10/14/06 Adebayo Reddy MD [address] [facility] [place] [address] PCP - General Family Medicine 12/29/12 08/15/14 Ed Alfredo DO [address] [facility] [place] [address] PCP - General Family Medicine 08/16/14 08/31/19 Darrius Orr MD [address] [place] [address] PCP - General Internal Medicine 09/01/19 Darrius Orr MD [address] [place] [address] Referring Internal Medicine 11/16/24 documented as of this encounter
--- OUTSIDE RECORDS SUMMARY | 2024-12-28 20:51 | XMS_ITS | Encounter Summary ---
Author Organization [facility] Address [address] [place] [address] Care Team Providers Care Car Body Designer Name Role Phone Camila Rodriguez MD Primary Care Provider + [phone] Adebayo Reddy MD Primary Care Provider [phone] Ed Alfredo DO Primary Care Provider + [phone] Darrius Orr MD Primary Care Provider [phone] Darrius Orr MD Unavailable [phone] Source Comments In the event this information is protected by the Federal Confidentiality of Alcohol and Drug AbusePatient Records regulations: The Federal rules restrict any use of the information to criminally investigate or prosecute any alcohol or drug abuse patient.[facility] Encounter Details Date Type Department Care Team (Late st Contact Info) Description 11/23/2011 Patient Msg Medical Records [address] [place] [address] Provider, Ccf RE: Appointment Cancellation Request Social [...] on filedocumented in this encounter Care Teams Car Body Designer Relationship Specialty Start Date End Date Camila Rodriguez MD [address] [place] [address] PCP - General 10/13/09 12/28/12 Adebayo Reddy MD [address] [place] [address] PCP - General Family Medicine 12/29/12 08/15/14 Ed Alfredo DO [address] [place] [address] PCP - General Family Medicine 08/16/14 08/31/19 Darrius Orr MD [address] [place] [address] PCP - General Internal Medicine 09/01/19 Darrius Orr MD [address] [place] [address] Referring Internal Medicine 11/16/24 documented as of this encounter
--- OUTSIDE RECORDS SUMMARY | 2024-12-28 20:51 | XMS_ITS | Encounter Summary ---
Author Organization [facility] Address [address] [place] [address] Care Team Providers Care Taxonomy Teacher Name Role Phone Camila Rodriguez MD Primary Care Provider [phone] Adebayo Reddy MD Primary Care Provider [phone] Ed Alfredo DO Primary Care Provider + [phone] Darrius Orr MD Primary Care Provider [phone] Darrius Orr MD Unavailable [phone] Source Comments In the event this information is protected by the Federal Confidentiality of Alcohol and Drug AbusePatient Records regulations: The Federal rules restrict any use of the information to criminally investigate or prosecute any alcohol or drug abuse patient.[facility] Encounter Details Date Type Department Care Team (Late st Contact Info) Description 01/13/2012 Patient Msg Medical Records [address] [place] [address] Provider, Ccf Appointment Cancellation Request Social History [...] on filedocumented in this encounter Care Teams Taxonomy Teacher Relationship Specialty Start Date End Date Camila Rodriguez MD [address] [place] [address] PCP - General 10/13/09 12/28/12 Adebayo Reddy MD [address] [place] [address] PCP - General Family Medicine 12/29/12 08/15/14 Ed Alfredo DO [address] [place] [address] PCP - General Family Medicine 08/16/14 08/31/19 Darrius Orr MD [address] [place] [address] PCP - General Internal Medicine 09/01/19 Darrius Orr MD [address] [place] [address] Referring Internal Medicine 11/16/24 documented as of this encounter
--- OUTSIDE RECORDS SUMMARY | 2024-12-28 20:52 | XMS_ITS | Encounter Summary ---
Author Organization [facility] Address [address] [place] [address] Care Team Providers Care Specialized Developer Name Role Phone Camila Rodriguez MD Primary Care Provider [phone] Lizeth Tillman MD Primary Care Provider [phone] Clinton Gonzales MD Primary Care Provider + [phone] Rich Chun MD Primary Care Provider [phone] Wally Monroe MD Primary Care Provider [phone] Rich Chun MD Primary Care Provider [phone] Wally Monroe MD Primary Care Provider [phone] Rich Chun MD Primary Care Provider [phone] Adebayo Reddy MD Primary Care Provider [phone] Ed Alfredo DO Primary Care Provider [phone] Darrius Orr MD Primary Care Provider [phone] Darrius Orr MD Unavailable [phone] Source Comments In the event this information is protected by the Federal Confidentiality of Alcohol and Drug AbusePatient Records regulations: The Federal rules restrict any use of the information to criminally investigate or prosecute any alcohol or drug abuse patient.[facility] Encounter Details Date Type Department Care Team (Late st Contact Info) Description 04/28/2006 Patient Msg Medical Records [address] [place] [address] Provider, Ccf RE: Appointment Cancellation Request Social [...] on filedocumented in this encounter Care Teams Specialized Developer Relationship Specialty Start Date End Date Camila Rodriguez MD [address] [facility] [place] [address] PCP - General 10/13/09 12/28/12 Lizeth Tillman MD [address] [facility] [place] [place] [address] PCP - General 08/16/09 10/12/09 Clinton Gonzales MD [address] [facility] [place] [address] PCP - General 09/02/08 08/15/09 Rich Chnu MD [address] [facility] [place] [address] PCP - General 11/27/06 09/01/08 Wally Monroe MD [address] [place] [address] PCP - General 10/29/06 11/26/06 Rich Chun MD [address] [place] [address] PCP - General 10/28/06 10/28/06 Wally Monroe MD [address] [place] [address] PCP - General 10/15/06 10/27/06 Rich Chun MD [address] [place] [address] PCP - General 11/07/05 10/14/06 Adebayo Reddy MD [address] [facility] [place] [address] PCP - General Family Medicine 12/29/12 08/15/14 Ed Alfredo DO [address] [facility] [place] [address] PCP - General Family Medicine 08/16/14 08/31/19 Darrius Orr MD [address] [place] [address] PCP - General Internal Medicine 09/01/19 Darrius Orr MD [address] [place] [address] Referring Internal Medicine 11/16/24 documented as of this encounter
--- OUTSIDE RECORDS SUMMARY | 2024-12-28 20:52 | XMS_ITS | Encounter Summary ---
Author Organization [facility] Address [address] [facility] [place] [address] Care Team Providers Care Field Representative Name Role Phone Darrius Orr MD Unavailable [phone] Darrius Orr MD Primary Care Provider [phone] Aiden Linares DPM Unavailable [phone] Kai Gutierres DO Unavailable [phone] Encounter Details Date Type Department Care Team ([facility] Contact Info) Description 07/21/2023 Orders Only [facility] [address] [facility] [address] [place] [id number] A, Unknown Practice [address] [place], [place] [phone] Social History Tobacco Use Types Packs/Day Years Used Date Smoking Tobacco: Every Day Cigarettes 0.3 35.4 Started: 08/04/1989 Smokeless Tobacco: Never Comments:5 or less cigs a da y Alcohol Use Standard Drinks/Week Comments Not Currently 0 (1 standard drink = 0.6 oz pure alcohol) Caffine intake: Coke Zero, 2-3 cans daily AUDIT-C Answer Date Recorded Q1: How often do you have a drink containing alcohol? Never 07/18/2023 Q2: How many drinks containi ng alcohol do you have on a typical day when you are drinking? Patient does not drink Q3: How often do you have si x or more drinks on one occasion? Never 07/18/2023 PHQ-2 Answer Date Recorded Patient Health Questionnaire-2 Score 0 04/28/2023 Sex and Gender Information Value Date Recorded Sex Assigned at Not on file Legal Sex Male 6:48 PM EDT Gender Identity Not on file Sexual Orientation Not on file Occupation Industry Job Start Date Job End Date disabled Not on file Not on file Not on file documented as of this encounter Plan of Treatment Upcoming Encounters Date Type Department Care Team (Late st Contact Info) Description 12/30/2024 9:45 AM EDT Office Visit [facility] [address] [place] [phone] 01/04/2025 1:00 PM EDT Office Visit [facility] [address] [place] [phone] Kai Gutierres DO [address] [place] [address] 01/05/2025 3:45 PM EDT Office Visit [facility] [address] [place] [address] Susie Mary DPM [address] [place] [address] 02/28/2025 1:30 PM EDT Office Visit [facility] [address] [place] [phone] documented as of this encounter Procedures Procedure Name Priority Date/Time Associated Diagnosis Comments SCANNED LABS Routine 07/18/2023 10:31 AM EST documented in this encounter Results * SCANNED LABS (07/18/2023 10:31 AM EST) us Unknown Practice A LAB CHG PERFORMABLES Final Re sult documented in this encounter Visit Diagnoses Not on filedocumented in this encounter Care Teams Field Representative Relationship Specialty Start Date End Date Darrius Orr MD [address] [place] [address] PCP - [employer] 08/04/19 Darrius Orr MD [address] [place] [address] PCP - General Internal Medicine 12/31/22 Aiden Linares DPM [address] [facility] [address] [place] [address] Referring Physician Podiatry 10/30/23 Kai Gutierres DO [address] [address] Referring Physician Neurology 02/24/24 documented as of this encounter
--- OUTSIDE RECORDS SUMMARY | 2024-12-28 20:52 | XMS_ITS | Encounter Summary ---
Author Organization [facility] Address [address] [place] [address] Care Team Providers Care Helicopter Technician Name Role Phone Camila Rodriguez MD Primary Care Provider [phone] Lizeth Tillman MD Primary Care Provider [phone] Clinton Gonzales MD Primary Care Provider + [phone] Rich Chun MD Primary Care Provider [phone] Wally Monroe MD Primary Care Provider [phone] Rich Chun MD Primary Care Provider [phone] Wally Monroe MD Primary Care Provider [phone] Rich Chun MD Primary Care Provider [phone] Adebayo Reddy MD Primary Care Provider [phone] Ed Alfredo DO Primary Care Provider [phone] Darrius Orr MD Primary Care Provider [phone] Darrius Orr MD Unavailable [phone] Source Comments In the event this information is protected by the Federal Confidentiality of Alcohol and Drug AbusePatient Records regulations: The Federal rules restrict any use of the information to criminally investigate or prosecute any alcohol or drug abuse patient.[facility] Encounter Details Date Type Department Care Team (Late st Contact Info) Description 03/31/2006 Patient Msg Medical Records [address] [place] [address] Provider, Ccf RE: Appointment Cancellation Request Social [...] on filedocumented in this encounter Care Teams Helicopter Technician Relationship Specialty Start Date End Date Camila Rodriguez MD [address] [facility] [place] [address] PCP - General 10/13/09 12/28/12 Liezth Tillman MD [address] [facility] [place] [address] PCP - General 08/16/09 10/12/09 Clinton Gonzales MD [address] [facility] [place] [address] PCP - General 09/02/08 08/15/09 Rich Chun MD [address] [facility] [place] [address] PCP - General 11/27/06 09/01/08 Wally Monroe MD [address] [place] [address] PCP - General 10/29/06 11/26/06 Rich Chun MD [address] [place] [address] PCP - General 10/28/06 10/28/06 Wally Monroe MD [address] [place] [address] PCP - General 10/15/06 10/27/06 Rich Chun MD [address] [place] [address] PCP - General 11/07/05 10/14/06 Adebayo Reddy MD [address] [facility] [place] [address] PCP - General Family Medicine 12/29/12 08/15/14 Ed Alfredo DO [address] [facility] [place] [address] PCP - General Family Medicine 08/16/14 08/31/19 Darrius Orr MD [address] [place] [address] PCP - General Internal Medicine 09/01/19 Darrius Orr MD [address] [place] [address] Referring Internal Medicine 11/16/24 documented as of this encounter
--- OUTSIDE RECORDS SUMMARY | 2024-12-28 20:52 | XMS_ITS | Encounter Summary ---
Author Organization [facility] Address [address] [place] [address] Care Team Providers Care Glove Cutter Name Role Phone Camila Rodriguez MD Primary Care Provider [phone] Lizeth Tillman MD Primary Care Provider [phone] Clinton Gonzales MD Primary Care Provider + [phone] Rich Chun MD Primary Care Provider [phone] Wally Monroe MD Primary Care Provider [phone] Rich Chun MD Primary Care Provider +[phone] Wally Monroe MD Primary Care Provider [phone] Rich Chun MD Primary Care Provider +[phone] Adebayo Reddy MD Primary Care Provider +[phone] Ed Alfredo DO Primary Care Provider [phone] Darrius Orr MD Primary Care Provider [phone] Darrius Orr MD Unavailable [phone] Source Comments In the event this information is protected by the Federal Confidentiality of Alcohol and Drug AbusePatient Records regulations: The Federal rules restrict any use of the information to criminally investigate or prosecute any alcohol or drug abuse patient.[facility] Encounter Details Date Type Department Care Team (Late st Contact Info) Description 03/31/2006 Patient Msg Medical Records [address] [place] [address] Provider, Ccf RE: Appointment Cancellation Request Social [...] on filedocumented in this encounter Care Teams Glove Cutter Relationship Specialty Start Date End Date Camila Rodriguez MD [address] [facility] [place] [place] [address] PCP - General 10/13/09 12/28/12 Lizeth Tillman MD [address] [facility] [place] [place] [address] PCP - General 08/16/09 10/12/09 Clinton Gonzales MD [address] [facility] [place] [address] PCP - General 09/02/08 08/15/09 Rich Chun MD [address] [facility] [place] [address] PCP - General 11/27/06 09/01/08 Wally Monroe MD [address] [place] [address] PCP - General 10/29/06 11/26/06 Rich Chun MD [address] [place] [address] PCP - General 10/28/06 10/28/06 Wally Monroe MD [address] [place] [address] PCP - General 10/15/06 10/27/06 Rich Chun MD [address] [place] [address] PCP - General 11/07/05 10/14/06 Adebayo Reddy MD [address] [facility] [place] [address] PCP - General Family Medicine 12/29/12 08/15/14 Ed Alfredo DO [address] [facility] [place] [address] PCP - General Family Medicine 08/16/14 08/31/19 Darrius Orr MD [address] [place] [address] PCP - General Internal Medicine 09/01/19 Darrius Orr MD [address] [place] [address] Referring Internal Medicine 11/16/24 documented as of this encounter
--- OUTSIDE RECORDS SUMMARY | 2024-12-28 20:52 | XMS_ITS | Encounter Summary ---
Author Organization [facility] Address [address] [place] [address] Care Team Providers Care Felter Tennis Balls Name Role Phone Adebayo Reddy MD Primary Care Provider [phone] Ed Alfredo DO Primary Care Provider [phone] Darrius Orr MD Primary Care Provider [phone] Darrius Orr MD Unavailable [phone] Source Comments In the event this information is protected by the Federal Confidentiality of Alcohol and Drug AbusePatient Records regulations: The Federal rules restrict any use of the information to criminally investigate or prosecute any alcohol or drug abuse patient.[facility] Encounter Details Date Type Department Care Team (Late st Contact Info) Description 06/25/2013 Patient Msg Medical Records [address] [place] [address] Provider, Ccf RE: Appointment Cancellation Request Social [...] on filedocumented in this encounter Care Teams Felter Tennis Balls Relationship Specialty Start Date End Date Adebayo Reddy MD [address] [facility] [place] [place] [address] PCP - General Family Medicine 12/29/12 08/15/14 Ed Alfredo DO [address] [facility] [place] [place] [address] PCP - General Family Medicine 08/16/14 08/31/19 Darrius Orr MD [address] [place] [address] PCP - General Internal Medicine 09/01/19 Darrius Orr MD [address] [place] [address] Referring Internal Medicine 11/16/24 documented as of this encounter
--- OUTSIDE RECORDS SUMMARY | 2024-12-28 20:52 | XMS_ITS | Encounter Summary ---
Author Organization [facility] Address [address] [place] [address] Care Team Providers Care Merchandise Presentation Manager Name Role Phone Adebayo Reddy MD Primary Care Provider [phone] Ed Alfredo DO Primary Care Provider [phone] Darrius Orr MD Primary Care Provider [phone] Darrius Orr MD Unavailable [phone] Source Comments In the event this information is protected by the Federal Confidentiality of Alcohol and Drug AbusePatient Records regulations: The Federal rules restrict any use of the information to criminally investigate or prosecute any alcohol or drug abuse patient.[facility] Encounter Details Date Type Department Care Team (Late st Contact Info) Description 03/01/2013 Patient Msg Medical Records [address] [place] [address] Provider, Ccf RE: Patient Registration Completed Social History Tobacco Use Types Packs/Day Years [...] on filedocumented in this encounter Care Teams Merchandise Presentation Manager Relationship Specialty Start Date End Date Adebayo Reddy MD [address] [place] [address] PCP - General Family Medicine 12/29/12 08/15/14 Ed Alfredo DO [address] [place] [address] PCP - General Family Medicine 08/16/14 08/31/19 Darrius Orr MD [address] [place] [address] PCP - General Internal Medicine 09/01/19 Darrius Orr MD [address] [place] [address] Referring Internal Medicine 11/16/24 documented as of this encounter
--- OUTSIDE RECORDS SUMMARY | 2024-12-28 20:52 | XMS_ITS | Encounter Summary ---
Author Organization [facility] Address [address] [place] [address] Care Team Providers Care Bricklayer Paving Brick Name Role Phone Darrius Orr MD Unavailable [phone] Darrius Orr MD Primary Care Provider [phone] Aiden Linares DPM Unavailable [phone] Kai Gutierres DO Unavailable [phone] Encounter Details Date Type Department Care Team ([facility] Contact Info) Description 04/21/2024 Orders Only [facility] [address] [facility] [address] [place] [id number] A, Unknown Practice [address] [place], [place] [id number] Social History Tobacco Use Types Packs/Day Years Used Date Smoking Tobacco: Some Days Cigarettes Started: 1989 Passive Smoke Exposure: Past Smokeless Tobacco: Never Comments:5 or less cigs a da y Alcohol Use Standard Drinks/Week Comments Never 0 [...] [address] [place] [address] 01/04/2025 1:00 PM EDT Office Visit [facility] [place] [address] [place] [address] Kai Gutierres, [address] [place] [address] 01/05/2025 3:45 PM EDT Office Visit [facility] [address] [place] [address] Susie Mary DPM [address] [place] [address] 02/28/2025 1:30 PM EDT Office Visit [facility] [address] [place] [address] documented as of this encounter Procedures Procedure Name Priority Date/Time Associated Diagnosis Comments XR KNEE 1-2 VIEWS RIGHT Routine 04/17/2024 11:02 AM EDT documented in this encounter Results * XR knee 1 or 2 views right (04/17/2024 11:02 AM EDT) Anatomical Region Laterality Modality Lower Extremities, Knee Right Radiogra phic Imaging us Unknown Practice A IMG XR PROCEDURES Final Resul t documented in this encounter Visit Diagnoses Not on filedocumented in this encounter Care Teams Bricklayer Paving Brick Relationship Specialty Start Date End Date Darrius Orr MD [address] [place] [address] PCP - [employer] 08/04/19 Darrius Orr MD [address] [place] [address] PCP - General Internal Medicine 12/31/22 Aiden Linares DPM [address] [facility] [address] [place] [address] Referring Physician Podiatry 10/30/23 Kai Gutierres DO [address] [facility] 353 [place] [address] Referring Physician Neurology 02/24/24 documented as of this encounter
--- OUTSIDE RECORDS SUMMARY | 2024-12-28 20:52 | XMS_ITS | Encounter Summary ---
Author Organization [facility] Address [address] [facility] [place] [address] Care Team Providers Care Broadcast Operations Technician Name Role Phone Darrius Orr MD Unavailable [phone] Darrius Orr MD Primary Care Provider [phone] Aiden Linares DPM Unavailable [phone] Kai Gutierres DO Unavailable [phone] Encounter Details Date Type Department Care Team ([facility] Contact Info) Description 03/15/2024 Orders Only [facility] [address] [facility] [address] [place] [phone] A, Unknown Practice [address] [place], [place] [phone] Social History Tobacco Use Types Packs/Day Years [...] [address] [place] [address] 01/04/2025 1:00 PM EDT Office Visit [facility] [place] [address] [place] [address] Kai Gutierres, [address] [place] [address] 01/05/2025 3:45 PM EDT Office Visit [facility] [address] [place] [address] Susie Mary DPM [address] [place] [address] 02/28/2025 1:30 PM EDT Office Visit [facility] [address] [place] [address] documented as of this encounter Procedures Procedure Name Priority Date/Time Associated Diagnosis Comments CT HEAD WO IV CONTRAST Routine 03/15/2024 10:03 AM EDT documented in this encounter Results * CT head wo IV contrast (03/15/2024 10:03 AM EDT) Anatomical Region Laterality Modality Head, Neck Computed Tomogra phy us Unknown Practice A IMG CT PROCEDURES Final Resul t documented in this encounter Visit Diagnoses Not on filedocumented in this encounter Care Teams Broadcast Operations Technician Relationship Specialty Start Date End Date Darrius Orr MD [address] [place] [address] PCP - [employer] 08/04/19 Darrius Orr MD [address] [place] [address] PCP - General Internal Medicine 12/31/22 Aiden Linares DPM [address] [facility] 100 [place] [address] Referring Physician Podiatry 10/30/23 Kai Gutierres DO [address] [facility] 353 [place] [address] Referring Physician Neurology 02/24/24 documented as of this encounter
--- OUTSIDE RECORDS SUMMARY | 2024-12-28 20:52 | XMS_ITS | Encounter Summary ---
Author Organization [facility] Address [address] [place] [address] Care Team Providers Care Program Management Professional Name Role Phone Darrius Orr MD Unavailable [phone] Darrius Orr MD Primary Care Provider [phone] Aiden Linares DPM Unavailable [phone] Kai Gutierres DO Unavailable [phone] Reason for Visit * Reason Onset Date Comments Error (VOID this visit) 03/11/2024 Encounter Details Date Type Department Care Team ([facility] Contact Info) Description 03/11/2024 Telephone [facility] [address] [facility] [address] [place] [address] Darrius Orr MD [address] [facility] [address] [place] [address] Error (VOID this visit) Social History Tobacco Use Types Packs/Day Years [...] [address] [place] [address] 01/04/2025 1:00 PM EDT Office Visit [facility]OLANDA PAE[facility] [address] [place] [address] Kai Gutierres DO [address] [place], [place] [address] 01/05/2025 3:45 PM EDT Office Visit [facility] [address] [place] [address] Susie Mary DPM [address] [place] [address] 02/28/2025 1:30 PM EDT Office Visit [facility] [address] [place] [address] documented as of this encounter Visit Diagnoses Not on filedocumented in this encounter Care Teams Program Management Professional Relationship Specialty Start Date End Date Darrius Orr MD [address] [place] [address] PCP - [employer] 08/04/19 Darrius Orr MD [address] [place] [address] PCP - General Internal Medicine 12/31/22 Aiden Linares DPM [address] [facility] [address] [place] [address] Referring Physician Podiatry 10/30/23 Kai Gutierres DO [address] [facility] [address] [place] [address] Referring Physician Neurology 02/24/24 documented as of this encounter
--- OUTSIDE RECORDS SUMMARY | 2024-12-28 20:52 | XMS_ITS | Encounter Summary ---
Author Organization [facility] Address [address] [place] [address] Care Team Providers Care Deep Fat Cook Fry Name Role Phone Camila Rodriguez MD Primary Care Provider [phone] Lizeth Tillman MD Primary Care Provider [phone] Clinton Gonzales MD Primary Care Provider + [phone] Rich Chun MD Primary Care Provider [phone] Wally Monroe MD Primary Care Provider [phone] Rich Chun MD Primary Care Provider [phone] Wally Monroe MD Primary Care Provider [phone] Rich Chun MD Primary Care Provider [phone] Adebayo Reddy MD Primary Care Provider [phone] Ed Alfredo DO Primary Care Provider [phone] Darrius Orr MD Primary Care Provider [phone] Darrius Orr MD Unavailable [phone] Source Comments In the event this information is protected by the Federal Confidentiality of Alcohol and Drug AbusePatient Records regulations: The Federal rules restrict any use of the information to criminally investigate or prosecute any alcohol or drug abuse patient.[facility] Encounter Details Date Type Department Care Team (Late st Contact Info) Description 03/31/2006 Patient Msg Medical Records [address] [place] [address] Provider, Ccf RE: Appointment Cancellation Request Social [...] on filedocumented in this encounter Care Teams Deep Fat Cook Fry Relationship Specialty Start Date End Date Camila Rodriguez MD [address] [facility] [place] [address] PCP - General 10/13/09 12/28/12 Lizeth Tillman MD [address] [facility] [place] [address] PCP - General 08/16/09 10/12/09 Clinton Gonzales MD [address] [facility] [place] [address] PCP - General 09/02/08 08/15/09 Rich Chun MD [address] [facility] [place] [address] PCP - General 11/27/06 09/01/08 Wally Monroe MD [address] [place] [address] PCP - General 10/29/06 11/26/06 Rich Chun MD [address] [place] [address] PCP - General 10/28/06 10/28/06 Wally Monroe MD [address] [place] [address] PCP - General 10/15/06 10/27/06 Rich Chun MD [address] [place] [address] PCP - General 11/07/05 10/14/06 Adebayo Reddy MD [address] [facility] [place] [address] PCP - General Family Medicine 12/29/12 08/15/14 Ed Alfredo DO [address] [facility] [place] [address] PCP - General Family Medicine 08/16/14 08/31/19 Darrius Orr MD [address] [place] [address] PCP - General Internal Medicine 09/01/19 Darrius Orr MD [address] [place] [address] Referring Internal Medicine 11/16/24 documented as of this encounter
--- OUTSIDE RECORDS SUMMARY | 2024-12-28 20:52 | XMS_ITS | Encounter Summary ---
Author Organization [facility] Address [address] [place] [address] Care Team Providers Care Lightning Protection Installer Name Role Phone Adebayo Reddy MD Primary Care Provider [phone] Ed Alfredo DO Primary Care Provider [phone] Darrius Orr MD Primary Care Provider [phone] Darrius Orr MD Unavailable [phone] Source Comments In the event this information is protected by the Federal Confidentiality of Alcohol and Drug AbusePatient Records regulations: The Federal rules restrict any use of the information to criminally investigate or prosecute any alcohol or drug abuse patient.[facility] Encounter Details Date Type Department Care Team (Late st Contact Info) Description 04/09/2013 Patient Msg Medical Records [address] [place] [address] Provider, Ccf RE: Request an Appointment Social [...] on filedocumented in this encounter Care Teams Lightning Protection Installer Relationship Specialty Start Date End Date Adebayo Reddy MD [address] [facility] [place] [address] PCP - General Family Medicine 12/29/12 08/15/14 Ed Alfredo DO [address] [facility] [place] [place] [address] PCP - General Family Medicine 08/16/14 08/31/19 Darrius Orr MD [address] [place] [address] PCP - General Internal Medicine 09/01/19 Darrius Orr MD [address] [place] [address] Referring Internal Medicine 11/16/24 documented as of this encounter
--- OUTSIDE RECORDS SUMMARY | 2024-12-28 20:52 | XMS_ITS | Encounter Summary ---
Author Organization [facility] Address [address] [place] [address] Care Team Providers Care Mainspring Former Arbor End Name Role Phone Camila Rodriguez MD Primary Care Provider [phone] Lizeth Tillman MD Primary Care Provider [phone] Clinton Gonzales MD Primary Care Provider + [phone] Rich Chun MD Primary Care Provider [phone] Adebayo Reddy MD Primary Care Provider [phone] Ed Alfredo DO Primary Care Provider [phone] Darrius Orr MD Primary Care Provider [phone] Darrius Orr MD Unavailable [phone] Source Comments In the event this information is protected by the Federal Confidentiality of Alcohol and Drug AbusePatient Records regulations: The Federal rules restrict any use of the information to criminally investigate or prosecute any alcohol or drug abuse patient.[facility] Encounter Details Date Type Department Care Team (Late st Contact Info) Description 11/27/2006 Patient Msg Medical Records [address] [place] [address] Provider, Ccf RE: Appointment Cancellation Request Social [...] on filedocumented in this encounter Care Teams Mainspring Former Arbor End Relationship Specialty Start Date End Date Camila Rodriguez MD [address] [facility] [place] [address] PCP - General 10/13/09 12/28/12 Lizeth Tillman MD [address] [facility] [place] [address] PCP - General 08/16/09 10/12/09 Clinton Gonzales MD [address] [facility] [place] [address] PCP - General 09/02/08 08/15/09 Rich Chun MD [address] [facility] [place] [address] PCP - General 11/27/06 09/01/08 Adebayo Reddy MD [address] [place] [address] PCP - General Family Medicine 12/29/12 08/15/14 Ed Alfredo DO [address] [facility] [address] [address] PCP - General Family Medicine 08/16/14 08/31/19 Darrius Orr MD [address] [place] [address] PCP - General Internal Medicine 09/01/19 Darrius Orr MD [address] [place] [address] Referring Internal Medicine 11/16/24 documented as of this encounter
--- OUTSIDE RECORDS SUMMARY | 2024-12-28 20:52 | XMS_ITS | Encounter Summary ---
Author Organization [facility] Address [address] [place] [address] Care Team Providers Care Book Cleaner Name Role Phone Camila Rodriguez MD Primary Care Provider [phone] Lizeth Tillman MD Primary Care Provider [phone] Clinton Gonzales MD Primary Care Provider + [phone] Rich Chun MD Primary Care Provider [phone] Adebayo Reddy MD Primary Care Provider [phone] Ed Alfredo DO Primary Care Provider [phone] Darrius Orr MD Primary Care Provider [phone] Darrius Orr MD Unavailable [phone] Source Comments In the event this information is protected by the Federal Confidentiality of Alcohol and Drug AbusePatient Records regulations: The Federal rules restrict any use of the information to criminally investigate or prosecute any alcohol or drug abuse patient.[facility] Encounter Details Date Type Department Care Team (Late st Contact Info) Description 07/01/2007 Patient Msg Medical Records [address] [place] [address] Provider, Ccf RE: Appointment Cancellation Request Social [...] on filedocumented in this encounter Care Teams Book Cleaner Relationship Specialty Start Date End Date Camila Rodriguez MD [address] [facility] [place] [address] PCP - General 10/13/09 12/28/12 Lizeth Tillman MD [address] [facility] [place] [address] PCP - General 08/16/09 10/12/09 Clinton Gonzales MD [address] [facility] [place] [address] PCP - General 09/02/08 08/15/09 Rich Chun MD [address] [facility] [place] [address] PCP - General 11/27/06 09/01/08 Adebayo Reddy MD [address] [address] [place] [address] PCP - General Family Medicine 12/29/12 08/15/14 Ed Alfredo DO [address] [facility] [address] [place] [address] PCP - General Family Medicine 08/16/14 08/31/19 Darrius Orr MD [address] [place] [address] PCP - General Internal Medicine 09/01/19 Darrius rOr MD [address] [place] [address] Referring Internal Medicine 11/16/24 documented as of this encounter
--- OUTSIDE RECORDS SUMMARY | 2024-12-28 20:52 | XMS_ITS | Encounter Summary ---
Author Organization [facility] Address [address] [place] [address] Care Team Providers Care Hydraulic Boom Operator Name Role Phone Adebayo Reddy MD Primary Care Provider [phone] Ed Alfredo DO Primary Care Provider [phone] Darrius Orr MD Primary Care Provider [phone] Darrius Orr MD Unavailable [phone] Source Comments In the event this information is protected by the Federal Confidentiality of Alcohol and Drug AbusePatient Records regulations: The Federal rules restrict any use of the information to criminally investigate or prosecute any alcohol or drug abuse patient.[facility] Encounter Details Date Type Department Care Team (Late st Contact Info) Description 04/12/2013 Patient Msg Medical Records [address] [place] [address] Provider, Ccf RE: Request an Appointment Social [...] on filedocumented in this encounter Care Teams Hydraulic Boom Operator Relationship Specialty Start Date End Date Adebayo Reddy MD [address] [facility] [place] [address] PCP - General Family Medicine 12/29/12 08/15/14 Ed Alfredo DO [address] [facility] [place] [address] PCP - General Family Medicine 08/16/14 08/31/19 Darrius Orr MD [address] [place] [address] PCP - General Internal Medicine 09/01/19 Darrius Orr MD [address] [place] [address] Referring Internal Medicine 11/16/24 documented as of this encounter
--- OUTSIDE RECORDS SUMMARY | 2024-12-28 20:52 | XMS_ITS | Encounter Summary ---
Author Organization [facility] Address [address] [place] [address] Care Team Providers Care Contact Center Analyst Name Role Phone Adebayo Reddy MD Primary Care Provider [phone] Ed Alfredo DO Primary Care Provider [phone] Darrius Orr MD Primary Care Provider [phone] Darrius Orr MD Unavailable [phone] Source Comments In the event this information is protected by the Federal Confidentiality of Alcohol and Drug AbusePatient Records regulations: The Federal rules restrict any use of the information to criminally investigate or prosecute any alcohol or drug abuse patient.[facility] Encounter Details Date Type Department Care Team (Late st Contact Info) Description 03/24/2013 Patient Msg Medical Records [facility] [place] [address] Provider, Ccf RE: Appointment Cancellation Request Social [...] on filedocumented in this encounter Care Teams Contact Center Analyst Relationship Specialty Start Date End Date Adebayo Reddy MD [address] [place] [address] PCP - General Family Medicine 12/29/12 08/15/14 Ed Alfredo DO [address] [place] [address] PCP - General Family Medicine 08/16/14 08/31/19 Darrius Orr MD [address] [place] [address] PCP - General Internal Medicine 09/01/19 Darrius Orr MD [address] [place] [address] Referring Internal Medicine 11/16/24 documented as of this encounter
--- OUTSIDE RECORDS SUMMARY | 2024-12-28 20:52 | XMS_ITS | Encounter Summary ---
Author Organization [facility] Address [address] [place] [address] Care Team Providers Care Cooking Show Host Name Role Phone Darrius Orr MD Unavailable [phone] Darrius Orr MD Primary Care Provider [phone] Aiden Linares DPM Unavailable [phone] Kai Gutierres DO Unavailable [phone] Encounter Details Date Type Department Care Team ([facility] Contact Info) Description 05/19/2024 Orders Only [facility] [address] [facility] [address] [place] [phone] A, Unknown Practice [address] [place], [place] [address] Social History Tobacco Use Types Packs/Day Years [...] [address] [place] [phone] 01/04/2025 1:00 PM EDT Office Visit YOLANDA CAPELLAN [address] [place] [address] Kai Gutierres, [address] [place] [address] 01/05/2025 3:45 PM EDT Office Visit [facility] [address] [place] [phone] Susie Mary DPM [address] [place] [address] 02/28/2025 1:30 PM EDT Office Visit [facility] [address] [place] [address] documented as of this encounter Procedures Procedure Name Priority Date/Time Associated Diagnosis Comments XR KNEE 4+ VIEWS RIGHT Routine 05/15/2024 11:[address] CERVICAL SPINE WO IV CONTRAST Routine 05/15/2024 11:45 AM EDT XR LUMBAR SPINE 2 OR 3V Routine 05/15/2024 11:44 AM EDT documented in this encounter Results * XR knee 4+ views right (05/15/2024 11:47 AM EDT) Anatomical Region Laterality Modality Lower Extremities, Knee Right Radiogra phic Imaging us Unknown Practice A IMG XR PROCEDURES Final Resul t * CT cervical spine wo IV contrast (05/15/2024 11:45 AM EDT) Anatomical Region Laterality Modality Spine, C-spine Computed Tomogra phy us Unknown Practice A IMG CT PROCEDURES Final Resul t * XR LUMBAR SPINE 2 OR 3V (05/15/2024 11:44 AM EDT) Anatomical Region Laterality Modality Radiographic Jacklyn ging us Unknown Practice A IMG XR PROCEDURES Final Resul t documented in this encounter Visit Diagnoses Not on filedocumented in this encounter Care Teams Cooking Show Host Relationship Specialty Start Date End Date Darrius Orr MD [address] [facility] [address] [place] [address] PCP - [employer] 08/04/19 Darrius Orr MD [address] [place] [address] PCP - General Internal Medicine 12/31/22 Aiden Linares DPM [address] [facility] [address] [place] [address] Referring Physician Podiatry 10/30/23 Kai Gutierres DO [address] [facility] [address] [place] [address] Referring Physician Neurology 02/24/24 documented as of this encounter
--- OUTSIDE RECORDS SUMMARY | 2024-12-28 20:52 | XMS_ITS | Encounter Summary ---
Author Organization [facility] Address [address] [place] [address] Care Team Providers Care Industrial Court Magistrate Name Role Phone Camila Rodriguez MD Primary Care Provider + [phone] Lizeth Tillman MD Primary Care Provider [phone] Clinton Gonzales MD Primary Care Provider + [phone] Rich Chun MD Primary Care Provider [phone] Wally Monroe MD Primary Care Provider [phone] Adebayo Reddy MD Primary Care Provider [phone] Ed Alfredo DO Primary Care Provider [phone] Darrius Orr MD Primary Care Provider [phone] Darrius Orr MD Unavailable [phone] Source Comments In the event this information is protected by the Federal Confidentiality of Alcohol and Drug AbusePatient Records regulations: The Federal rules restrict any use of the information to criminally investigate or prosecute any alcohol or drug abuse patient.[facility] Encounter Details Date Type Department Care Team (Late st Contact Info) Description 10/29/2006 Patient Msg Medical Records [address] [place] [address] Provider, Ccf RE: Patient Registration Completed Social [...] on filedocumented in this encounter Care Teams Industrial Court Magistrate Relationship Specialty Start Date End Date Camila Rodriguez MD [address] [facility] [address] [place] [address] PCP - General 10/13/09 12/28/12 Lizeth Tillman MD [address] [place] [address] PCP - General 08/16/09 10/12/09 Clinton Gonzales MD [address] [facility] [place] [address] PCP - General 09/02/08 08/15/09 Rich Chun MD [address] [facility] [place] [address] PCP - General 11/27/06 09/01/08 Wally Monroe MD [address] [place] [address] PCP - General 10/29/06 11/26/06 Adebayo Reddy MD [address] [facility] [address] [place] [address] PCP - General Family Medicine 12/29/12 08/15/14 Ed Alfredo DO [address] [place] [address] PCP - General Family Medicine 08/16/14 08/31/19 Darrius Orr MD [address] [place] [address] PCP - General Internal Medicine 09/01/19 Darrius Orr MD [address] [place] [address] Referring Internal Medicine 11/16/24 documented as of this encounter
--- OUTSIDE RECORDS SUMMARY | 2024-12-28 20:52 | XMS_ITS | Encounter Summary ---
Author Organization [facility] Address [address] [place] [address] Care Team Providers Care Caltrans Equipment Operator Name Role Phone Camila Rodriguez MD Primary Care Provider [phone] Adebayo Reddy MD Primary Care Provider [phone] Ed Alfredo DO Primary Care Provider [phone] Darrius Orr MD Primary Care Provider [phone] Darrius Orr MD Unavailable [phone] Source Comments In the event this information is protected by the Federal Confidentiality of Alcohol and Drug AbusePatient Records regulations: The Federal rules restrict any use of the information to criminally investigate or prosecute any alcohol or drug abuse patient.[facility] Encounter Details Date Type Department Care Team (Late st Contact Info) Description 10/27/2012 Patient Msg Medical Records [address] [place] [address] Provider, Ccf RE: Request an Appointment Social [...] on filedocumented in this encounter Care Teams Caltrans Equipment Operator Relationship Specialty Start Date End Date Camila Rodriguez MD [address] [place] [address] PCP - General 10/13/09 12/28/12 Adebayo Reddy MD [address] [place] [address] PCP - General Family Medicine 12/29/12 08/15/14 Ed Alfredo DO [address] [place] [address] PCP - General Family Medicine 08/16/14 08/31/19 Darrius Orr MD [address] [address] PCP - General Internal Medicine 09/01/19 Darrius Orr MD [address] [place] [address] Referring Internal Medicine 11/16/24 documented as of this encounter
--- OUTSIDE RECORDS SUMMARY | 2024-12-28 20:52 | XMS_ITS | Encounter Summary ---
Author Organization [facility] Address [address] [place] [address] Care Team Providers Care Building Equipment Operator Name Role Phone Adebayo Reddy MD Primary Care Provider [phone] Ed Alfredo DO Primary Care Provider [phone] Darrius Orr MD Primary Care Provider [phone] Darrius Orr MD Unavailable [phone] Source Comments In the event this information is protected by the Federal Confidentiality of Alcohol and Drug AbusePatient Records regulations: The Federal rules restrict any use of the information to criminally investigate or prosecute any alcohol or drug abuse patient.[facility] Encounter Details Date Type Department Care Team (Late st Contact Info) Description 01/18/2013 Patient Msg Medical Records [address] [place] [address] Provider, Ccf RE: Request an Appointment Social [...] on filedocumented in this encounter Care Teams Building Equipment Operator Relationship Specialty Start Date End Date Adebayo Reddy MD [address] [place] [address] PCP - General Family Medicine 12/29/12 08/15/14 Ed Alfredo DO [address] [place] [address] PCP - General Family Medicine 08/16/14 08/31/19 Darrius Orr MD [address] [place] [address] PCP - General Internal Medicine 09/01/19 Darrius Orr MD [address] [place] [address] Referring Internal Medicine 11/16/24 documented as of this encounter
--- OUTSIDE RECORDS SUMMARY | 2024-12-28 20:52 | XMS_ITS | Encounter Summary ---
Author Organization [facility] Address [address] [place] [address] Care Team Providers Care Audio Visual Equipment Rental Clerk Name Role Phone Camila Rodriguez MD Primary Care Provider + [phone] Lizeth Tillman MD Primary Care Provider [phone] Clinton Gonzales MD Primary Care Provider + [phone] Rich Chun MD Primary Care Provider [phone] Adebayo Reddy MD Primary Care Provider [phone] Ed Alfredo DO Primary Care Provider [phone] Darrius Orr MD Primary Care Provider [phone] Darrius Orr MD Unavailable [phone] Source Comments In the event this information is protected by the Federal Confidentiality of Alcohol and Drug AbusePatient Records regulations: The Federal rules restrict any use of the information to criminally investigate or prosecute any alcohol or drug abuse patient.[facility] Encounter Details Date Type Department Care Team (Late st Contact Info) Description 05/05/2007 Patient Msg Medical Records [address] [place] [address] Provider, Ccf RE: Appointment Cancellation Request Social [...] on filedocumented in this encounter Care Teams Audio Visual Equipment Rental Clerk Relationship Specialty Start Date End Date Camila Rodriguez MD [address] [facility] [address] [place] [address] PCP - General 10/13/09 12/28/12 Lizeth Tillman MD [address] [facility] [place] [address] PCP - General 08/16/09 10/12/09 Clinton Gonzales MD [address] [facility] [place] [address] PCP - General 09/02/08 08/15/09 Rich Chun MD [address] [facility] [place] [address] PCP - General 11/27/06 09/01/08 Adebayo Reddy MD [address] [place] [address] PCP - General Family Medicine 12/29/12 08/15/14 Ed Alfredo DO [address] [facility] [address] [place] [address] PCP - General Family Medicine 08/16/14 08/31/19 Darrius Orr MD [address] [place] [address] PCP - General Internal Medicine 09/01/19 Darrius Orr MD [address] [place] [address] Referring Internal Medicine 11/16/24 documented as of this encounter
--- OUTSIDE RECORDS SUMMARY | 2024-12-28 20:52 | XMS_ITS | Encounter Summary ---
Author Organization [facility] Address [address] [place] [address] Care Team Providers Care Correctional Probation Officer Name Role Phone Camila Rodriguez MD Primary Care Provider + [phone] Lizeth Tillman MD Primary Care Provider [phone] Clinton Gonzales MD Primary Care Provider + [phone] Rich Chun MD Primary Care Provider [phone] Adebayo Reddy MD Primary Care Provider [phone] Ed Alfredo DO Primary Care Provider [phone] Darrius Orr MD Primary Care Provider [phone] Darrius Orr MD Unavailable [phone] Source Comments In the event this information is protected by the Federal Confidentiality of Alcohol and Drug AbusePatient Records regulations: The Federal rules restrict any use of the information to criminally investigate or prosecute any alcohol or drug abuse patient.[facility] Encounter Details Date Type Department Care Team (Late st Contact Info) Description 04/16/2007 Patient Msg Medical Records [address] [place] [address] Provider, Ccf RE: Appointment Cancellation Request Social [...] on filedocumented in this encounter Care Teams Correctional Probation Officer Relationship Specialty Start Date End Date Camila Rodriguez MD [address] [facility] [place] [address] PCP - General 10/13/09 12/28/12 Liezth Tillman MD [address] [facility] [place] [address] PCP - General 08/16/09 10/12/09 Clinton Gonzales MD [address] [facility] [address] PCP - General 09/02/08 08/15/09 Rich Chun MD [address] [facility] [place] [address] PCP - General 11/27/06 09/01/08 Adebayo Reddy MD [address] [place] [address] PCP - General Family Medicine 12/29/12 08/15/14 Ed Alfredo DO [address] [facility] [address] [address] PCP - General Family Medicine 08/16/14 08/31/19 Darrius Orr MD [address] [place] [address] PCP - General Internal Medicine 09/01/19 Darrius Orr MD [address] [place] [address] Referring Internal Medicine 11/16/24 documented as of this encounter
--- OUTSIDE RECORDS SUMMARY | 2024-12-28 20:52 | XMS_ITS | Encounter Summary ---
Author Organization [facility] Address [address] [place] [address] Care Team Providers Care Employee Relations Administrator Name Role Phone Adebayo Reddy MD Primary Care Provider [phone] Ed Alfredo DO Primary Care Provider [phone] Darrius Orr MD Primary Care Provider [phone] Darrius Orr MD Unavailable [phone] Source Comments In the event this information is protected by the Federal Confidentiality of Alcohol and Drug AbusePatient Records regulations: The Federal rules restrict any use of the information to criminally investigate or prosecute any alcohol or drug abuse patient.[facility] Encounter Details Date Type Department Care Team (Late st Contact Info) Description 01/25/2013 Patient Msg Medical Records [address] [place] [address] Provider, Ccf Appointment Cancellation Request Social History [...] on filedocumented in this encounter Care Teams Employee Relations Administrator Relationship Specialty Start Date End Date Adebayo Reddy MD [address] [place] [address] PCP - General Family Medicine 12/29/12 08/15/14 Ed Alfredo DO [address] [place] [address] PCP - General Family Medicine 08/16/14 08/31/19 Darrius Orr MD [address] [place] [address] PCP - General Internal Medicine 09/01/19 Darrius Orr MD [address] [place] [address] Referring Internal Medicine 11/16/24 documented as of this encounter
--- OUTSIDE RECORDS SUMMARY | 2024-12-28 20:52 | XMS_ITS | Encounter Summary ---
Author Organization [facility] Address [address] [place] [address] [place] [address] Care Team Providers Care Nurses Medical Assistants Phlebotomists Name Role Phone Darrius Orr MD Unavailable [phone] Darrius Orr MD Primary Care Provider [phone] Aiden Linares DPM Unavailable [phone] Kai Gutierres DO Unavailable [phone] Encounter Details Date Type Department Care Team ([facility] Contact Info) Description 02/24/2024 Orders Only [facility] [address] [facility] [facility] [address] [place] [phone] A, Unknown Practice [address] [place], [place] [address] Social History Tobacco Use Types Packs/Day Years [...] on file documented as of this encounter Functional Status * Over the past 2 weeks, how often have you been bothered by any of the following problems? Question Answer Date of Assessment Author Little interest or pleasure in doing things Not at all 02/25/2024 2:00 PM EDT Trinity Siddiqui L PN Feeling down, depressed, or hopeless Not at all 02/25/2024 2:00 PM EDT Trinity Siddiqui L PN Patient Health Questionnaire -2 Score 0 02/25/2024 2:00 PM EDT Trinity Siddiqui L PN documented as of this encounter Plan of Treatment Upcoming Encounters Date Type Department Care Team (Late st Contact Info) Description 12/30/2024 9:45 AM EDT Office Visit [facility] [address] [place] [address] 01/04/2025 1:00 PM EDT Office Visit YOLANDA CAPELLAN [address] [facility] [address] [place] [address] Kai Gutierres, [address] [place] [address] 01/05/2025 3:45 PM EDT Office Visit [facility] [address] [place] [address] Susie Mary DPM [address] [place] [address] 02/28/2025 1:30 PM EDT Office Visit [facility] [address] [place] [address] documented as of this encounter Procedures Procedure Name Priority Date/Time Associated Diagnosis Comments DIABETIC RETINOPATHY SCREENING - OU - BOTH EYES Routine 04/29/2024 3:46 PM EDT DIABETES EYE EXAM Routine 02/24/2024 4:02 PM EDT documented in this encounter Results * Diabetic Retinopathy Screening - OU - Both Eyes (04/29/2024 3:46 PM EDT) Anatomical Region Laterality Modality Head Other us Darrius Orr MD OPHTH PHOTOGRAPHY Final Result * Hm Diabetes Eye Exam (02/24/2024 4:02 PM EDT) us Unknown Practice A HEALTH MAINTENANCE Final Resu lt documented in this encounter Visit Diagnoses Not on filedocumented in this encounter Care Teams Nurses Medical Assistants Phlebotomists Relationship Specialty Start Date End Date Darrius Orr MD [address] [facility] [address] [place] [address] PCP - [employer] 08/04/19 Darrius Orr MD [address] [place] [address] PCP - General Internal Medicine 12/31/22 Aiden Linares DPM [address] [facility] [address] [place] [address] Referring Physician Podiatry 10/30/23 Kai Gutierres DO [address] [facility] [address] [place] [address] Referring Physician Neurology 02/24/24 documented as of this encounter
--- OUTSIDE RECORDS SUMMARY | 2024-12-28 20:52 | XMS_ITS | Encounter Summary ---
Author Organization [facility] Address [address] [place] [address] Care Team Providers Care Supervisor Enrobing Name Role Phone Adebayo Reddy MD Primary Care Provider [phone] Ed Alfredo DO Primary Care Provider [phone] Darrius Orr MD Primary Care Provider [phone] Darrius Orr MD Unavailable [phone] Source Comments In the event this information is protected by the Federal Confidentiality of Alcohol and Drug AbusePatient Records regulations: The Federal rules restrict any use of the information to criminally investigate or prosecute any alcohol or drug abuse patient.[facility] Encounter Details Date Type Department Care Team (Late st Contact Info) Description 01/25/2013 Patient Msg Medical Records [address] [place] [address] Provider, Ccf RE: Request an Appointment Social [...] on filedocumented in this encounter Care Teams Supervisor Enrobing Relationship Specialty Start Date End Date Adebayo Reddy MD [address] [facility] [address] PCP - General Family Medicine 12/29/12 08/15/14 Ed Alfredo DO [address] [facility] [place] [address] PCP - General Family Medicine 08/16/14 08/31/19 Darrius Orr MD [address] [place] [address] PCP - General Internal Medicine 09/01/19 Darrius Orr MD [address] [place] [address] Referring Internal Medicine 11/16/24 documented as of this encounter
--- OUTSIDE RECORDS SUMMARY | 2024-12-28 20:52 | XMS_ITS | Encounter Summary ---
Author Organization [facility] Address [address] [place] [address] [place] [address] Care Team Providers Care Granite Cutter Name Role Phone Darrius Orr MD Unavailable [phone] Darrius Orr MD Primary Care Provider [phone] Aiden Linares DPM Unavailable [phone] Kai Gutierres DO Unavailable [phone] Encounter Details Date Type Department Care Team ([facility] Contact Info) Description 03/01/2024 Orders Only [facility] [address] [facility] [address] [place] [phone] A, Unknown Practice [address] [place], [place] [address] Social History Tobacco Use Types Packs/Day Years [...] [address] [place] [address] 01/04/2025 1:00 PM EDT Office Visit YOLANDA CAPELLAN [address] [place] [address] Kai Gutierres, [address] [place] [address] 01/05/2025 3:45 PM EDT Office Visit [facility] [address] [place] [phone] Susie Mary DPM [address] [place] [address] 02/28/2025 1:30 PM EDT Office Visit [facility] [address] [place] [address] documented as of this encounter Procedures Procedure Name Priority Date/Time Associated Diagnosis Comments PARATHYROID HORMONE, FNAB NEEDLE WASH Routine 02/25/2024 8:02 AM EDT VITAMIN D 1,25 DIHYDROXY Routine 024 8:02 AM EDT CBC Routine 02/25/2024 8:02 AM EDT HEMOGLOBIN A1C Routine 02/25/2024 8:02 AM EDT IMMUNOGLOBULIN G Routine 02/25/2024 8:02 AM EDT HEPATIC FUNCTION PANEL Routine 8:02 AM EDT COMPREHENSIVE METABOLIC PANEL Routine 02/25/2024 8:02 AM EDT documented in this encounter Results * CBC (02/25/2024 8:02 AM EDT) Blood Venous blood specimen / Unknown us Unknown Practice A LAB BLOOD ORDERABLES Final Re sult * PARATHYROID HORMONE, FNAB NEEDLE WASH (02/25/2024 8:02 AM EDT) Result [facility] Unknown Practice A LAB BLOOD ORDERABLES Final Re sult * Comprehensive metabolic panel (02/25/2024 8:02 AM EDT) Blood Venous blood specimen / Unknown Result [facility] Unknown Practice A LAB BLOOD ORDERABLES Final Re sult * Hepatic function panel (02/25/2024 8:02 AM EDT) Blood Venous blood specimen / Unknown Result [facility] Unknown Practice A LAB BLOOD ORDERABLES Final Re sult * Vitamin D 1,25 dihydroxy (02/25/2024 8:02 AM EDT) Blood Venous blood specimen / Unknown Result [facility] Unknown Practice A LAB BLOOD ORDERABLES Final Re sult * IgG (02/25/2024 8:02 AM EDT) Blood Venous blood specimen / Unknown Result [facility] Unknown Practice A LAB BLOOD ORDERABLES Final Re sult * Hemoglobin A1c (02/25/2024 8:02 AM EDT) Blood Venous blood specimen / Unknown Result [facility] Unknown Practice A LAB BLOOD ORDERABLES Final Re sult documented in this encounter Visit Diagnoses Not on filedocumented in this encounter Care Teams Granite Cutter Relationship Specialty Start Date End Date Darrius Orr MD [address] [place] [address] PCP - [employer] 08/04/19 Darrius Orr MD [address] [place] [address] PCP - General Internal Medicine 12/31/22 Aiden Linares DPM [address] [facility] [address] [place] [address] Referring Physician Podiatry 10/30/23 Kai Gutierres DO [address] [facility] [address] [place] [address] Referring Physician Neurology 02/24/24 documented as of this encounter
--- OUTSIDE RECORDS SUMMARY | 2024-12-28 20:52 | XMS_ITS | Encounter Summary ---
Author Organization [facility] Address [address] [place] [address] Care Team Providers Care Resource Protection Specialist Name Role Phone Adebayo Reddy MD Primary Care Provider [phone] Ed Alfredo DO Primary Care Provider [phone] Darrius Orr MD Primary Care Provider [phone] Darrius Orr MD Unavailable Source Comments In the event this information is protected by the Federal Confidentiality of Alcohol and Drug AbusePatient Records regulations: The Federal rules restrict any use of the information to criminally investigate or prosecute any alcohol or drug abuse patient.[facility] Encounter Details Date Type Department Care Team (Late st Contact Info) Description 06/25/2013 Patient Msg Medical Records [address] [place] [address] Provider, Ccf Appointment Cancellation Request Social History [...] on filedocumented in this encounter Care Teams Resource Protection Specialist Relationship Specialty Start Date End Date Adebayo Reddy MD [address] [place] [address] PCP - General Family Medicine 12/29/12 08/15/14 Ed Alfredo DO [address] [place] [address] PCP - General Family Medicine 08/16/14 08/31/19 Darrius Orr MD [address] [place] [address] PCP - General Internal Medicine 09/01/19 Darrius Orr MD [address] [place] [address] Referring Internal Medicine 11/16/24 documented as of this encounter
--- OUTSIDE RECORDS SUMMARY | 2024-12-28 20:52 | XMS_ITS | Encounter Summary ---
Author Organization [facility] Address [address] [place] [address] Care Team Providers Care Oven Worker Name Role Phone Camila Rodriguez MD Primary Care Provider [phone] Lizeth Tillman MD Primary Care Provider [phone] Clinton Gonzales MD Primary Care Provider + [phone] Rich hCun MD Primary Care Provider [phone] Wally Monroe MD Primary Care Provider [phone] Rich Chun MD Primary Care Provider [phone] Wally Monroe MD Primary Care Provider [phone] Rich Chun MD Primary Care Provider +[phone] Adebayo Reddy MD Primary Care Provider +[phone] Ed Alfredo DO Primary Care Provider [phone] Darrius Orr MD Primary Care Provider [phone] Darrius Orr MD Unavailable [phone] Source Comments In the event this information is protected by the Federal Confidentiality of Alcohol and Drug AbusePatient Records regulations: The Federal rules restrict any use of the information to criminally investigate or prosecute any alcohol or drug abuse patient.[facility] Encounter Details Date Type Department Care Team (Late st Contact Info) Description 06/27/2006 Patient Msg Medical Records [address] [place] [address] Provider, Ccf RE: Appointment Cancellation Request Social [...] on filedocumented in this encounter Care Teams Oven Worker Relationship Specialty Start Date End Date Camila Rodriguez MD [address] [facility] [place] [address] PCP - General 10/13/09 12/28/12 Lizeth Tillman MD [address] [facility] [address] [place] [address] PCP - General 08/16/09 10/12/09 Clinton Gonzales MD [address] [facility] [place] [address] PCP - General 09/02/08 08/15/09 Rich Chun MD [address] [facility] [place] [address] PCP - General 11/27/06 09/01/08 Wally Monroe MD [address] [place] [address] PCP - General 10/29/06 11/26/06 Rich Chun MD [address] [place] [address] PCP - General 10/28/06 10/28/06 Wally Monroe MD [address] [place] [address] PCP - General 10/15/06 10/27/06 Rich Chun MD [address] [place] [address] PCP - General 11/07/05 10/14/06 Adebayo Reddy MD [address] [facility] [place] [address] PCP - General Family Medicine 12/29/12 08/15/14 Ed Alfredo DO [address] [facility] [place] [address] PCP - General Family Medicine 08/16/14 08/31/19 Darrius Orr MD [address] [place] [address] PCP - General Internal Medicine 09/01/19 Darrius Orr MD [address] [place] [address] Referring Internal Medicine 11/16/24 documented as of this encounter
--- OUTSIDE RECORDS SUMMARY | 2024-12-28 20:52 | XMS_ITS | Encounter Summary ---
Author Organization [facility] Address [address] [place] [address] Care Team Providers Care Environmental Science Professor Name Role Phone Camila Rodriguez MD Primary Care Provider + [phone] Adebayo Reddy MD Primary Care Provider +[phone] Ed Alfredo DO Primary Care Provider + [phone] Darrius Orr MD Primary Care Provider [phone] Darrius Orr MD Unavailable [phone] Source Comments In the event this information is protected by the Federal Confidentiality of Alcohol and Drug AbusePatient Records regulations: The Federal rules restrict any use of the information to criminally investigate or prosecute any alcohol or drug abuse patient.[facility] Encounter Details Date Type Department Care Team (Late st Contact Info) Description 12/07/2012 Patient Msg Medical Records [address] [place] [address] Provider, Ccf RE: Request an Appointment Social [...] on filedocumented in this encounter Care Teams Environmental Science Professor Relationship Specialty Start Date End Date Camila Rodriguez MD [address] [place] [address] PCP - General 10/13/09 12/28/12 Adebayo Reddy MD [address] [place] [address] PCP - General Family Medicine 12/29/12 08/15/14 Ed Alfredo DO [address] [place] [address] PCP - General Family Medicine 08/16/14 08/31/19 Darrius Orr MD [address] [address] PCP - General Internal Medicine 09/01/19 Darrius Orr MD [address] [place] [address] Referring Internal Medicine 11/16/24 documented as of this encounter
--- OUTSIDE RECORDS SUMMARY | 2024-12-28 20:52 | XMS_ITS | Encounter Summary ---
Author Organization [facility] Address [address] [place] [address] Care Team Providers Care Health Inspector Name Role Phone Camila Rodriguez MD Primary Care Provider [phone] Lizeth Tillman MD Primary Care Provider [phone] Clinton Gonzales MD Primary Care Provider + [phone] Rich Chun MD Primary Care Provider [phone] Wally Monroe MD Primary Care Provider [phone] Rich Chun MD Primary Care Provider [phone] Wally Monroe MD Primary Care Provider [phone] Rich Chun MD Primary Care Provider +[phone] Adebayo Reddy MD Primary Care Provider [phone] Ed Alfredo DO Primary Care Provider [phone] Darrius Orr MD Primary Care Provider [phone] Darrius Orr MD Unavailable [phone] Source Comments In the event this information is protected by the Federal Confidentiality of Alcohol and Drug AbusePatient Records regulations: The Federal rules restrict any use of the information to criminally investigate or prosecute any alcohol or drug abuse patient.[facility] Encounter Details Date Type Department Care Team (Late st Contact Info) Description 04/01/2006 Patient Msg Medical Records [address] [place] [address] Provider, Ccf RE: Appointment Cancellation Request Social [...] on filedocumented in this encounter Care Teams Health Inspector Relationship Specialty Start Date End Date Camila Rodriguez MD [address] [facility] [place] [address] PCP - General 10/13/09 12/28/12 Lizeth Tillman MD [address] [facility] [place] [address] PCP - General 08/16/09 10/12/09 Clinton Gonzales MD [address] [facility] [place] [address] PCP - General 09/02/08 08/15/09 Rich Chun MD [address] [facility] [place] [address] PCP - General 11/27/06 09/01/08 Wally Monroe MD [address] [place] [address] PCP - General 10/29/06 11/26/06 Rich Chun MD [address] [place] [address] PCP - General 10/28/06 10/28/06 Wally Monroe MD [address] [place] [address] PCP - General 10/15/06 10/27/06 Rich Chun MD [address] [place] [address] PCP - General 11/07/05 10/14/06 Adebayo Reddy MD [address] [facility] [place] [address] PCP - General Family Medicine 12/29/12 08/15/14 Ed Alfredo DO [address] [facility] [place] [address] PCP - General Family Medicine 08/16/14 08/31/19 Darrius Orr MD [address] [place] [address] PCP - General Internal Medicine 09/01/19 Darrius Orr MD [address] [place] [address] Referring Internal Medicine 11/16/24 documented as of this encounter
--- OUTSIDE RECORDS SUMMARY | 2024-12-28 20:52 | XMS_ITS | Encounter Summary ---
Author Organization [facility] Address [address] [place] [address] Care Team Providers Care Third Grade Teacher Name Role Phone Camila Rodriguez MD Primary Care Provider + [phone] Lizeth Tillman MD Primary Care Provider [phone] Clinton Gonzales MD Primary Care Provider + [phone] Rich Chun MD Primary Care Provider + [phone] Adebayo Reddy MD Primary Care Provider [phone] Ed Alfredo DO Primary Care Provider [phone] Darrius Orr MD Primary Care Provider [phone] Darrius Orr MD Unavailable [phone] Source Comments In the event this information is protected by the Federal Confidentiality of Alcohol and Drug AbusePatient Records regulations: The Federal rules restrict any use of the information to criminally investigate or prosecute any alcohol or drug abuse patient.[facility] Encounter Details Date Type Department Care Team (Late st Contact Info) Description 11/27/2006 Patient Msg Medical Records [address] [place] [address] Provider, Ccf Appointment Cancellation Request Social History [...] on filedocumented in this encounter Care Teams Third Grade Teacher Relationship Specialty Start Date End Date Camila Rodriguez MD [address] [facility] [place] [address] PCP - General 10/13/09 12/28/12 Lizeth Tillman MD [address] [facility] [place] [address] PCP - General 08/16/09 10/12/09 Clinton Gonzales MD [address] [facility] [address] PCP - General 09/02/08 08/15/09 Rich Chun MD [address] [facility] [address] PCP - General 11/27/06 09/01/08 Adebayo Reddy MD [address] [address] [address] PCP - General Family Medicine 12/29/12 08/15/14 Ed Alfredo DO [address] [facility] [address] [place] [address] PCP - General Family Medicine 08/16/14 08/31/19 Darrius Orr MD [address] [place] [address] PCP - General Internal Medicine 09/01/19 Darrius Orr MD [address] [place] [address] Referring Internal Medicine 11/16/24 documented as of this encounter
--- OUTSIDE RECORDS SUMMARY | 2024-12-28 20:52 | XMS_ITS | Encounter Summary ---
Author Organization [facility] Address [address] [place] [address] Care Team Providers Care Employee Relations Administrator Name Role Phone Adebayo Reddy MD Primary Care Provider [phone] Ed Alfredo DO Primary Care Provider [phone] Darrius Orr MD Primary Care Provider [phone] Darrius Orr MD Unavailable [phone] Source Comments In the event this information is protected by the Federal Confidentiality of Alcohol and Drug AbusePatient Records regulations: The Federal rules restrict any use of the information to criminally investigate or prosecute any alcohol or drug abuse patient.[facility] Encounter Details Date Type Department Care Team (Late st Contact Info) Description 01/01/2013 Patient Msg Medical Records [address] [place] [address] Provider, Ccf RE: Patient Registration Completed Social [...] Reddy MD [address] [facility] [place] [address] PCP - General Family Medicine 12/29/12 08/15/14 Ed Alfredo DO [address] [facility] [place] [address] PCP - General Family Medicine 08/16/14 08/31/19 Darrius Orr MD [address] [place] [address] PCP - General Internal Medicine 09/01/19 Darrius Orr MD [address] [place] [address] Referring Internal Medicine 11/16/24 documented as of this encounter
--- OUTSIDE RECORDS SUMMARY | 2024-12-28 20:53 | XMS_ITS | Encounter Summary ---
Author Organization [facility] Address [address] [facility] [place] [address] Care Team Providers Care Exercise Scientist Name Role Phone Darrius Orr MD Unavailable [phone] Darrius Orr MD Primary Care Provider [phone] Aiden Linares DPM Unavailable [phone] Kai Gutierres DO Unavailable [phone] Reason for Visit * Reason Onset Date Comments asking for a referral to 12/15/2024 Encounter Details Date Type Department Care Team (Late st Contact Info) Description 12/15/2024 Telephone [facility] [address] [facility] [address] [place] [address] [address] LPN asking for a referral to Social History Tobacco Use Types Packs/Day Years [...] on file documented as of this encounter Miscellaneous Notes * Telephone Encounter - Noa Hansen LPN - 12/15/2024 4:05 PM EDT Pt notified of information * Telephone Encounter - Darrius Orr MD - 12/15/2024 3:33 PM EDT Recheck the sugar 2 hours after the insulin to see if 40 units is enough for sugar of 500. It has to be exactly 2 hours later and we would want to see the sugar below 200. If it is not at 2 hours, hewill need to give more when he is that high and retest to see if it is enough. So he could try 50 and see on the next attempt. * Telephone Encounter - Noa Hansen LPN - 12/15/2024 2:07 PM EDT Pt called again to say that he just checked his sugar and it is 502, He took 40 units * Telephone Encounter - Noa Hansen LPN - 12/15/2024 1:45 PM EDT He said he can not even get out of bed to go to the bathroom * Telephone Encounter - Darrius Orr MD - 12/15/2024 1:43 PM EDT Does he want to try therapy to help get him up and moving? He has to be homebound and not really leaving the house except for doctor's appts to get it at home. Otherwise, it has to be done outpatient. * Telephone Encounter - Yanelis Lane LPN - 12/15/2024 10:18 AM EDT Patient called to report he is having difficulty walking. Due to his draining wound and pain he spends most of his time in bed. Please advise documented in this encounter Plan of Treatment Upcoming Encounters Date Type Department Care Team (Late st Contact Info) Description 12/30/2024 9:45 AM EDT Office Visit [facility] [address] [place] [phone] 01/04/2025 1:00 PM EDT Office Visit YOLANDA CAPELLAN [address] [facility] [address] [place] [phone] Kai Gutierres, [address] [place] [id number] 01/05/2025 3:45 PM EDT Office Visit [facility] [address] [place] [address] Susie Mary DPM [address] [place] [address] 02/28/2025 1:30 PM EDT Office Visit [facility] [address] [place] [address] documented as of this encounter Visit Diagnoses Not on filedocumented in this encounter Care Teams Exercise Scientist Relationship Specialty Start Date End Date Darrius Orr MD [address] [place] [address] PCP - [employer] 08/04/19 Darrius Orr MD [address] [place] [address] PCP - General Internal Medicine 12/31/22 Aiden Linares DPM [address] [facility] [address] [place] [address] Referring Physician Podiatry 10/30/23 Kai Gutierres DO [address] [phone] Referring Physician Neurology 02/24/24 documented as of this encounter
--- OUTSIDE RECORDS SUMMARY | 2024-12-28 20:53 | XMS_ITS | Encounter Summary ---
Author Organization [facility] Address [address] [place] [address] Care Team Providers Care Bone Plant Supervisor Name Role Phone Camila Rodriguez MD Primary Care Provider + [phone] Lizeth Tillman MD Primary Care Provider [phone] Clinton Gonzales MD Primary Care Provider + [phone] Rich Chun MD Primary Care Provider + [phone] Adebayo Reddy MD Primary Care Provider [phone] Ed Alfredo DO Primary Care Provider [phone] Darrius Orr MD Primary Care Provider [phone] Darrius Orr MD Unavailable [phone] Source Comments In the event this information is protected by the Federal Confidentiality of Alcohol and Drug AbusePatient Records regulations: The Federal rules restrict any use of the information to criminally investigate or prosecute any alcohol or drug abuse patient.[facility] Encounter Details Date Type Department Care Team (Late st Contact Info) Description 10/16/2007 Patient Msg Medical Records [address] [place] [address] Provider, Ccf Appointment Request form Social History Tobacco Use Types Packs/Day Years [...] on filedocumented in this encounter Care Teams Bone Plant Supervisor Relationship Specialty Start Date End Date Camila Rodriguez MD [address] [facility] [place] [address] PCP - General 10/13/09 12/28/12 Lizeth Tillman MD [address] [facility] [place] [address] PCP - General 08/16/09 10/12/09 Clinton Gonzales MD [address] [facility] [place] [address] PCP - General 09/02/08 08/15/09 Rich Chun MD [address] [facility] [place] [address] PCP - General 11/27/06 09/01/08 Adebayo Reddy MD [address] [address] [address] PCP - General Family Medicine 12/29/12 08/15/14 Ed Alfredo DO [address] [facility] [place] [place] [address] PCP - General Family Medicine 08/16/14 08/31/19 Darrius Orr MD [address] [place] [address] PCP - General Internal Medicine 09/01/19 Darrius Orr MD [address] [place] [address] Referring Internal Medicine 11/16/24 documented as of this encounter
--- OUTSIDE RECORDS SUMMARY | 2024-12-28 20:53 | XMS_ITS | Encounter Summary ---
Author Organization [facility] Address [address] [place] [address] Care Team Providers Care Central Supply Supervisor Name Role Phone Adebayo Reddy MD Primary Care Provider [phone] Ed Alfredo DO Primary Care Provider [phone] Darrius Orr MD Primary Care Provider [phone] Darrius Orr MD Unavailable [phone] Source Comments In the event this information is protected by the Federal Confidentiality of Alcohol and Drug AbusePatient Records regulations: The Federal rules restrict any use of the information to criminally investigate or prosecute any alcohol or drug abuse patient.[facility] Encounter Details Date Type Department Care Team (Late st Contact Info) Description 08/14/2013 Patient Msg Medical Records [address] [place] [address] Provider, Ccf RE: Request an Appointment Social [...] on filedocumented in this encounter Care Teams Central Supply Supervisor Relationship Specialty Start Date End Date Adebayo Reddy MD [address] [facility] [place] [address] PCP - General Family Medicine 12/29/12 08/15/14 Ed Alfredo DO [address] [facility] [place] [address] PCP - General Family Medicine 08/16/14 08/31/19 Darrius Orr MD [address] [place] [address] PCP - General Internal Medicine 09/01/19 Darrius Orr MD [address] [place] [address] Referring Internal Medicine 11/16/24 documented as of this encounter
--- OUTSIDE RECORDS SUMMARY | 2024-12-28 20:53 | XMS_ITS | Encounter Summary ---
Author Organization [facility] Address [address] [place] [address] Care Team Providers Care Tire Stripper Name Role Phone Camila Rodriguez MD Primary Care Provider + [phone] Lizeth Tillman MD Primary Care Provider [phone] Clinton Gonzales MD Primary Care Provider + [phone] Adebayo Reddy MD Primary Care Provider [phone] Ed Alfredo DO Primary Care Provider [phone] Darrius Orr MD Primary Care Provider [phone] Darrius Orr MD Unavailable [phone] Source Comments In the event this information is protected by the Federal Confidentiality of Alcohol and Drug AbusePatient Records regulations: The Federal rules restrict any use of the information to criminally investigate or prosecute any alcohol or drug abuse patient.[facility] Encounter Details Date Type Department Care Team (Late st Contact Info) Description 12/13/2008 Patient Msg Medical Records [address] [place] [address] Provider, Ccf RE: Appointment Cancellation Request Social [...] on filedocumented in this encounter Care Teams Tire Stripper Relationship Specialty Start Date End Date Camila Rodriguez MD [address] [facility] [address] PCP - General 10/13/09 12/28/12 Lizeth Tillman MD [address] [facility] [address] PCP - General 08/16/09 10/12/09 Clinton Gonzales MD [address] [facility] [place] [address] PCP - General 09/02/08 08/15/09 Adebayo Reddy MD [address] [facility] [address] [place] [address] PCP - General Family Medicine 12/29/12 08/15/14 Ed Alfredo DO [address] [facility] [address] [place] [address] PCP - General Family Medicine 08/16/14 08/31/19 Darrius Orr MD [address] [place] [address] PCP - General Internal Medicine 09/01/19 Darrius Orr MD [address] [place] [address] Referring Internal Medicine 11/16/24 documented as of this encounter
--- OUTSIDE RECORDS SUMMARY | 2024-12-28 20:53 | XMS_ITS | Encounter Summary ---
Author Organization [facility] Address [address] [place] [address] Care Team Providers Care Bulb Packer Name Role Phone Camila Rodriguez MD Primary Care Provider + [phone] Lizeth Tillman MD Primary Care Provider [phone] Clinton Gonzales MD Primary Care Provider + [phone] Rich Chun MD Primary Care Provider + [phone] Adebayo Reddy MD Primary Care Provider [phone] Ed Alfredo DO Primary Care Provider [phone] Darrius Orr MD Primary Care Provider [phone] Darrius Orr MD Unavailable [phone] Source Comments In the event this information is protected by the Federal Confidentiality of Alcohol and Drug AbusePatient Records regulations: The Federal rules restrict any use of the information to criminally investigate or prosecute any alcohol or drug abuse patient.[facility] Encounter Details Date Type Department Care Team (Late st Contact Info) Description 03/24/2008 Patient Msg Medical Records [address] [place] [address] Provider, Ccf Appointment Cancellation Request Social History [...] on filedocumented in this encounter Care Teams Bulb Packer Relationship Specialty Start Date End Date Camila Rodriguez MD [address] [facility] [place] [address] PCP - General 10/13/09 12/28/12 Lizeth Tillman MD [address] [facility] [place] [address] PCP - General 08/16/09 10/12/09 Clinton Gonzales MD [address] [facility] [place] [address] PCP - General 09/02/08 08/15/09 Rich Chun MD [address] [facility] [place] [address] PCP - General 11/27/06 09/01/08 Adebayo Reddy MD [address] [address] [place] [address] PCP - General Family Medicine 12/29/12 08/15/14 Ed Alfredo DO [address] [facility] [address] [place] [place] [address] PCP - General Family Medicine 08/16/14 08/31/19 Darrius Orr MD [address] [place] [address] PCP - General Internal Medicine 09/01/19 Darrius Orr MD [address] [place] [address] Referring Internal Medicine 11/16/24 documented as of this encounter
--- OUTSIDE RECORDS SUMMARY | 2024-12-28 20:53 | XMS_ITS | Encounter Summary ---
Author Organization [facility] Address [address] [place] [address] Care Team Providers Care Mainspring Former Name Role Phone Camila Rodriguez MD Primary Care Provider + [phone] Lizeth Tillman MD Primary Care Provider [phone] Clinton Gonzales MD Primary Care Provider + [phone] Rich Chun MD Primary Care Provider + [phone] Adebayo Reddy MD Primary Care Provider [phone] Ed Alfredo DO Primary Care Provider [phone] Darrius Orr MD Primary Care Provider [phone] Darrius Orr MD Unavailable [phone] Source Comments In the event this information is protected by the Federal Confidentiality of Alcohol and Drug AbusePatient Records regulations: The Federal rules restrict any use of the information to criminally investigate or prosecute any alcohol or drug abuse patient.[facility] Encounter Details Date Type Department Care Team (Late st Contact Info) Description 10/09/2007 Patient Msg Medical Records [address] [place] [address] Provider, Ccf Appointment Request form Social History [...] in this encounter Care Teams Mainspring Former Relationship Specialty Start Date End Date Camila Rodriguez MD [address] [facility] [place] [address] PCP - General 10/13/09 12/28/12 Lizeth Tillman MD [address] [facility] [address] [place] [address] PCP - General 08/16/09 10/12/09 Clinton Gonzales MD [address] [facility] [address] PCP - General 09/02/08 08/15/09 Rich Chun MD [address] [facility] [place] [address] PCP - General 11/27/06 09/01/08 Adebayo Reddy MD [address] [address] [place] [address] PCP - General Family Medicine 12/29/12 08/15/14 Ed Alfredo DO [address] [facility] [place] [address] PCP - General Family Medicine 08/16/14 08/31/19 Darrius Orr MD [address] [place] [address] PCP - General Internal Medicine 09/01/19 Darrius Orr MD [address] [place] [address] Referring Internal Medicine 11/16/24 documented as of this encounter
--- OUTSIDE RECORDS SUMMARY | 2024-12-28 20:53 | XMS_ITS | Encounter Summary ---
Author Organization [facility] Address [address] [place] [address] Care Team Providers Care Firer Locomotive Crane Name Role Phone Camila Rodriguez MD Primary Care Provider + [phone] Lizeth Tillman MD Primary Care Provider [phone] Clinton Gonzales MD Primary Care Provider + [phone] Adebayo Reddy MD Primary Care Provider [phone] Ed Alfredo DO Primary Care Provider [phone] Darrius Orr MD Primary Care Provider [phone] Darrius Orr MD Unavailable [phone] Source Comments In the event this information is protected by the Federal Confidentiality of Alcohol and Drug AbusePatient Records regulations: The Federal rules restrict any use of the information to criminally investigate or prosecute any alcohol or drug abuse patient.[facility] Encounter Details Date Type Department Care Team (Late st Contact Info) Description 11/11/2008 Patient Msg Medical Records [address] [place] [address] Provider, Ccf RE: Appointment Cancellation Request Social [...] on filedocumented in this encounter Care Teams Firer Locomotive Crane Relationship Specialty Start Date End Date Camila Rodriguez MD [address] [facility] [place] [address] PCP - General 10/13/09 12/28/12 Lizeth Tillman MD [address] [facility] [place] [address] PCP - General 08/16/09 10/12/09 Clinton Gonzales MD [address] [place] [address] PCP - General 09/02/08 08/15/09 Adebayo Reddy MD [address] [facility] [address] [place] [address] PCP - General Family Medicine 12/29/12 08/15/14 Ed Alfredo DO [address] [facility] [address] [place] [address] PCP - General Family Medicine 08/16/14 08/31/19 Darrius Orr MD [address] [place] [address] PCP - General Internal Medicine 09/01/19 Darrius Orr MD [address] [place] [address] Referring Internal Medicine 11/16/24 documented as of this encounter
--- OUTSIDE RECORDS SUMMARY | 2024-12-28 20:53 | XMS_ITS | Encounter Summary ---
Author Organization [facility] Address [address] [facility] [place] [address] Care Team Providers Care Bark Scaler Name Role Phone Darrius Orr MD Unavailable [phone] Darrius Orr MD Primary Care Provider [phone] Aiden Linares DPM Unavailable [phone] Kai Gutierres DO Unavailable [phone] Encounter Details Date Type Department Care Team ([facility] Contact Info) Description 11/05/2024 Orders Only [facility] [address] [place] [address] Arpan Ross MD Social History Tobacco Use Types Packs/Day Years [...] IM [address] [place] [address] 01/04/2025 1:00 PM EDT Office Visit YOLANDA CAPELLAN [address] [place] [address] Kai Gutierres, [address] [place] [address] 01/05/2025 3:45 PM EDT Office Visit [facility] [address] [place] [address] Susie Mary DPM [address] [place] [address] 02/28/2025 1:30 PM EDT Office Visit [facility] [address] [place] [address] documented as of this encounter Procedures Procedure Name Priority Date/Time Associated Diagnosis Comments XR KNEE 4+ VIEWS RIGHT Routine 11/04/2024 10:49 AM EDT documented in this encounter Results * XR knee 4+ views right (11/04/2024 10:49 AM EDT) Anatomical Region Laterality Modality Lower Extremities, Knee Right Radiogra phic Imaging Arpan Ross MD IMG XR PROCEDURES Final Result documented in this encounter Visit Diagnoses Not on filedocumented in this encounter Care Teams Bark Scaler Relationship Specialty Start Date End Date Darrius Orr MD [address] [place] [address] PCP - [employer] 08/04/19 Darrius Orr MD [address] [place] [address] PCP - General Internal Medicine 12/31/22 Aiden Linares DPM [address] [facility] [address] [place] [address] Referring Physician Podiatry 10/30/23 Kai Gutierres DO [address] [facility] [address] [place] [address] Referring Physician Neurology 02/24/24 documented as of this encounter
--- OUTSIDE RECORDS SUMMARY | 2024-12-28 20:53 | XMS_ITS | Encounter Summary ---
Author Organization [facility] Address [address] [facility] [place] [address] Care Team Providers Care Spring Up Supervisor Name Role Phone Darrius Orr MD Unavailable [phone] Darrius Orr MD Primary Care Provider [phone] Aiden Linares DPM Unavailable [phone] Kai Gutierres DO Unavailable [phone] Encounter Details Date Type Department Care Team ([facility] Contact Info) Description 12/10/2024 Orders Only [facility] [address] [facility] [address] [place] [address] Unallocated, Noms Provider, [address] [place] [address] Social History Tobacco Use Types Packs/Day Years [...] [address] [place] [address] 01/04/2025 1:00 PM EDT Office Visit YOLANDA CAPELLAN [address] [place] [address] Kai Gutierres DO [address] [place] [address] 01/05/2025 3:45 PM EDT Office Visit [facility] [address] [place] [address] Susie Mary DPM [address] [place] [address] 02/28/2025 1:30 PM EDT Office Visit [facility] [address] [place] [address] documented as of this encounter Procedures Procedure Name Priority Date/Time Associated Diagnosis Comments [place] [place] Routine 12/02/2024 11:11 AM EDT CBC WITH AUTO DIFFERENTIAL Routine 12/02/2024 11:11 AM EDT B-TYPE NATRIURETIC PEPTIDE Routine 12/02/2024 11:11 AM EDT documented in this encounter Results * CBC auto differential (12/02/2024 11:11 AM EDT) Blood Venous blood specimen / Unknown us Noms Provider Unallocated LAB BLOOD ORDERABLE S Final Result * B-type natriuretic peptide (12/02/2024 11:11 AM EDT) Blood Venous blood specimen / Unknown us Noms Provider Unallocated LAB BLOOD ORDERABLE S Final Result * [place]FICIAL [place] [place] (12/02/2024 11:11 AM EDT) Topography unknown / Unknown us Noms Provider Unallocated MD LAB MICROBIOLOGY - GENERAL ORDERABLES Final Result documented in this encounter Visit Diagnoses Not on filedocumented in this encounter Care Teams Spring Up Supervisor Relationship Specialty Start Date End Date Darrius Orr MD [address] [facility] [address] [place] [address] PCP - [employer] 08/04/19 Darrius Orr MD [address] [place] [address] PCP - General Internal Medicine 12/31/22 Aiden Linares DPM [address] [facility] [address] [place] [address] Referring Physician Podiatry 10/30/23 Kai Gutierres DO [address] [facility] [address] [place] [address] Referring Physician Neurology 02/24/24 documented as of this encounter
--- OUTSIDE RECORDS SUMMARY | 2024-12-28 20:53 | XMS_ITS | Encounter Summary ---
Author Organization [facility] Address [address] [place] [address] Care Team Providers Care Blacksmith Supervisor Name Role Phone Camila Rodriguez MD Primary Care Provider + [phone] Lizeth Tillman MD Primary Care Provider [phone] Clinton Gonzales MD Primary Care Provider + [phone] Rich Chun MD Primary Care Provider [phone] Adebayo Reddy MD Primary Care Provider [phone] Ed Alfredo DO Primary Care Provider [phone] Darrius Orr MD Primary Care Provider [phone] Darrius Orr MD Unavailable [phone] Source Comments In the event this information is protected by the Federal Confidentiality of Alcohol and Drug AbusePatient Records regulations: The Federal rules restrict any use of the information to criminally investigate or prosecute any alcohol or drug abuse patient.[facility] Encounter Details Date Type Department Care Team (Late st Contact Info) Description 03/24/2008 Patient Msg Medical Records [address] [place] [address] Provider, Ccf RE: Request an Appointment Social [...] on filedocumented in this encounter Care Teams Blacksmith Supervisor Relationship Specialty Start Date End Date Camila Rodriguez MD [address] [facility] [address] PCP - General 10/13/09 12/28/12 Lizeth Tillman MD [address] [facility] [place] [address] PCP - General 08/16/09 10/12/09 Clinton Gonzales MD [address] [facility] [place] [address] PCP - General 09/02/08 08/15/09 Rich Chun MD [address] [facility] [place] [address] PCP - General 11/27/06 09/01/08 Adebayo Reddy MD [address] [address] [place] [address] PCP - General Family Medicine 12/29/12 08/15/14 Ed Alfredo DO [address] [facility] [address] [address] PCP - General Family Medicine 08/16/14 08/31/19 Darrius Orr MD [address] [place] [address] PCP - General Internal Medicine 09/01/19 Darrius Orr MD [address] [place] [address] Referring Internal Medicine 11/16/24 documented as of this encounter
--- OUTSIDE RECORDS SUMMARY | 2024-12-28 20:53 | XMS_ITS | Encounter Summary ---
Author Organization [facility] Address [address] [facility] [place] [address] Care Team Providers Care Grain Trader Name Role Phone Darrius Orr MD Unavailable [phone] Darrius Orr MD Primary Care Provider [phone] Aiden Linares DPM Unavailable [phone] Kai Gutierres DO Unavailable [phone] Encounter Details Date Type Department Care Team ([facility] Contact Info) Description 12/24/2024 Telephone [facility] [address] [facility] [address] [place] [address] Noa Hansen LPN Social History Tobacco Use Types Packs/Day Years [...] Telephone Encounter - Noa Hansen LPN - 12/24/2024 8:22 AM EDT Pt scheduled * Telephone Encounter - Adela Gross NP - 12/24/2024 8:16 AM EDT Call pt MATIAS, bring in at 1030 am please * Telephone Encounter - Noa Hansen LPN - 12/24/2024 8:09 AM EDT Pt called OA stating his sugar is over 500 since 1am. laila on arm just says high. Has taken 260 units of insulin since 3pm yesterday. Pt did go to ED last night as well. But, still having blood sugar concerns throughout the night. Pt had an Ocrevus infusion yesterday at 12pm and during the infusion was given solumedrol, Benadryl as well. Pt would like to speak with the office first thing this morning to set up appt or get help with possible treatment options. documented in this encounter Plan of Treatment Upcoming Encounters Date Type Department Care Team (Late st Contact Info) Description 12/30/2024 9:45 AM EDT Office Visit [facility] [address] [place] [address] 01/04/2025 1:00 PM EDT Office Visit YOLANDA CAPELLAN [address] [facility] [address] [place] [address] Kai Gutierres DO [address] [place] [address] 01/05/2025 3:45 PM EDT Office Visit [facility] [address] [place] [address] Susie Mary DPM [address] [place] [address] 02/28/2025 1:30 PM EDT Office Visit [facility] [address] [place] [address] documented as of this encounter Visit Diagnoses Not on filedocumented in this encounter Care Teams Grain Trader Relationship Specialty Start Date End Date Darrius Orr MD [address] [facility] [address] [place] [address] PCP - [employer] 08/04/19 Darrius Orr MD [address] [place] [address] PCP - General Internal Medicine 12/31/22 Aiden Linares DPM [address] [facility] [address] [place] [address] Referring Physician Podiatry 10/30/23 Kai Gutierres DO [address] [facility] [address] [place] [address] Referring Physician Neurology 02/24/24 documented as of this encounter
--- OUTSIDE RECORDS SUMMARY | 2024-12-28 20:53 | XMS_ITS | Encounter Summary ---
Author Organization [facility] Address [address] [facility] [place] [address] Care Team Providers Care Feed Grinder Name Role Phone Darrius Orr MD Unavailable [phone] Darrius Orr MD Primary Care Provider [phone] Aiden Linares DPM Unavailable [phone] Kai Gutierres DO Unavailable [phone] Encounter Details Date Type Department Care Team ([facility] Contact Info) Description 11/04/2024 External Result Encounter [facility] External Department Unsolicited Darrius Orr MD [address] [facility] [address] [place] [address] Social History Tobacco Use Types Packs/Day Years [...] [address] [place] [address] 01/04/2025 1:00 PM EDT Office Visit YOLANDA CAPELLAN [address] [place] [address] Kai Gutierres, DO [address] [place] [address] 01/05/2025 3:45 PM EDT Office Visit [facility] [address] [place] [address] Susie Mary DPM [address] [place] [address] 02/28/2025 1:30 PM EDT Office Visit [facility] [address] [place] [address] documented as of this encounter Procedures Procedure Name Priority Date/Time Associated Diagnosis Comments NM BONE WHOLE BODY 11/04/2024 4: 06 PM EDT documented in this encounter Results * NM bone whole body (11/04/2024 4:06 PM EDT) Anatomical Region Laterality Modality Nuclear Medicine 11/04/2024 4:06 PM EDT Impressions 11/04/2024 4:11 PM EDT Similar degenerative uptake.. No acute bony findings. Impression dictated by: Delio Nevarez M.D.11/04/2024 4:08 PM Dictation Location: [place] [address] Transcribed By: PWS 11/04/24 1608 Dictated By: Delio Nevarez DO 11/04/24 1606 Signed By: <Electronically signed by Delio Nevarez DO in OV> 11/04/24 1608 Narrative 11/04/2024 4:11 PM EDT [facility] [place] [address] Nuclear Medicine Report Signed Patient: Alex Dyer MR#: [id number] 73 : 1970 Acct:[id number] Age/Sex: 54 / M ADM Date: 11/04/24 Loc: NM Room: Type: [facility] CLI Attending Dr: Darrius Orr MD Copies to: MD Roque Lobo Jeffrey S DO Ordering Provider: Darrius Orr MD Date of Service: 11/04/24 NM/NM bone scan whole body: R74.8 Nuclear medicine bone scan of whole body TECHNIQUE: 24.0mCi of technetium 99m labeled MDP was administered. Planar imaging obtained in multiple planes. COMPARISON: 05/21/2018 HISTORY: Elevated alkaline phosphatase. Rheumatoid arthritis. Fell 4 days ago. The bilateral knee and right shoulder pain Findings: Degenerative uptake in both knees redemonstrated. Mild degenerative uptake of the shoulders. Mild degenerative uptake of the sternoclavicular joints hands and wrists and feet. No additional uptake to suggest acute fracture. No uptake seen to suggest metastasis. NM/NM bone scan whole body Procedure Note Radiology, Radiologist, MD - 11/04/2024 [place] [address] Nuclear Medicine Report Signed Patient: Alex Dyer JMR#: [id number] 73 : 1970Acct:[id number] Age/Sex: 54 / MADM Date: 11/04/24 Loc: NM Room:Type: [facility] CLI Attending Dr: Darrius Orr MD Copies to: MD Roque Lobo Jeffrey S DO Ordering Provider: Darrius Orr MD Date of Service: 11/04/24 NM/NM bone scan whole body: R74.8 Nuclear medicine bone scan of whole body TECHNIQUE: 24.0mCi of technetium 99m labeled MDP was administered.Planar imaging obtained in multiple planes. COMPARISON: 05/21/2018 HISTORY: Elevated alkaline phosphatase. Rheumatoid arthritis. Fell 4days ago. The bilateral knee and right shoulder pain Findings: Degenerative uptake in both knees redemonstrated. Milddegenerative uptake of the shoulders. Mild degenerative uptake of the sternoclavicular joints handsand wrists and feet. No additional uptake to suggest acute fracture. No uptake seen to suggestmetastasis. NM/NM bone scan whole body IMPRESSION: Similar degenerative uptake.. No acute bony findings. Impression dictated by: Delio Nevarez M.D.11/04/2024 4:08 PM Dictation Location: [id number] Transcribed By: PWS 11/04/24 1608 Dictated By: Delio Nevarez DO 11/04/24 1606 Signed By: <Electronically signed by Delio Nevarez DO in OV> 11/04/24 1608 Darrius Orr MD IMG NM PROCEDURES Final Result documented in this encounter Visit Diagnoses Not on filedocumented in this encounter Care Teams Feed Grinder Relationship Specialty Start Date End Date Darrius Orr MD [address] [facility] [address] [place] [address] PCP - [employer] 08/04/19 Darrius Orr MD [address] [place] [address] PCP - General Internal Medicine 12/31/22 Aiden Linares DPM [address] [facility] [address] [place] [address] Referring Physician Podiatry 10/30/23 Kai Gutierres DO [address] [facility] [address] [place] [address] Referring Physician Neurology 02/24/24 documented as of this encounter
--- OUTSIDE RECORDS SUMMARY | 2024-12-28 20:53 | XMS_ITS | Encounter Summary ---
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 [address] [place] [address] Other (call center dispatcher) Social History Tobacco Use Types Packs/Day Years [...] encounter Miscellaneous Notes * Telephone Encounter - Rosangela Dove - 12/27/2024 2:46 PM EDT Darrius Orr MD Please let him know I will refill the Percocet now to [facility] and I am putting him on some prednisone. This will make sugars go up so he will have to possibly increase insulin and track this for our visit on . * Telephone Encounter - Rosangela Dove - 12/27/2024 1:50 PM EDT Alex Dyer is a 54 y.o. male. Pt mother Cherry called in requesting to speak with the doctor. Her son has called multiple times this weekend and Dr Solares refused to send any pain meds into the pharmacy. The pt also went to the ER multiple time and was unable to get any relief for his head ache/ migraine pain 05/13 . Mother called in because her son cannot take the pain. Call back number is [phone]. * Telephone Encounter - Rosangela Contrerasson - 12/24/2024 6:31 PM EDT Per Darrius Solares Nothing will be sent . I know the dude! Calls each weekend * Telephone Encounter - Rosangela Contrerasson - 12/24/2024 5:42 PM EDT Alex Dyer is a 54 y.o. male pt called in because he was in the ER for migraines. Pt was given Zyrtec and Tramadol but it did not help with the pain, pt signed out because the hospital refused to give him anything stronger to help with his migraines I did inform the pt he may have to wait till Friday when the office is open to get a prescription for any pain medicine. And if the pain gets too bad he would need to go to urgent care or ER and the pt refused as he already was there today and no one could help him. Pt requesting something be sent to the [facility] . documented in this encounter Plan of Treatment Upcoming Encounters Date Type Department Care Team (Late st Contact Info) Description 12/30/2024 9:45 AM EDT Office Visit [facility] [address] [place] [address] 01/04/2025 1:00 PM EDT Office Visit YOLANDA SANTANAUSKY [address] [facility] [address] [place] [address] Kai Gutierres, [address] [address] 01/05/2025 3:45 PM EDT Office Visit [facility] [address] [place] [address] Susie Mary DPM [address] [place] [address] 02/28/2025 1:30 PM EDT Office Visit [facility] [address] [place] [address] documented as of this encounter Visit Diagnoses Not on filedocumented in this encounter Care Teams Airborne Mission Systems Relationship Specialty Start Date End Date Darrius Orr MD [address] [place] [address] PCP - Hum[employer] 08/04/19 Darrius Orr MD [address] [place] [address] PCP - General Internal Medicine 12/31/22 Aiden Linares DPM [address] [facility] [address] [place] [address] Referring Physician Podiatry 10/30/23 Kai Gutierres DO [address] [place] [phone] Referring Physician Neurology 02/24/24 documented as of this encounter
--- OUTSIDE RECORDS SUMMARY | 2024-12-28 20:53 | XMS_ITS | Encounter Summary ---
Author Organization [facility] Address [address] [place] [address] Care Team Providers Care House Worker Name Role Phone Camila Rodriguez MD Primary Care Provider + [phone] Lizeth Tillman MD Primary Care Provider [phone] Clinton Gonzales MD Primary Care Provider + [phone] Rich Chun MD Primary Care Provider + [phone] Adebayo Reddy MD Primary Care Provider [phone] Ed Alfredo DO Primary Care Provider [phone] Darrius Orr MD Primary Care Provider [phone] Darrius Orr MD Unavailable [phone] Source Comments In the event this information is protected by the Federal Confidentiality of Alcohol and Drug AbusePatient Records regulations: The Federal rules restrict any use of the information to criminally investigate or prosecute any alcohol or drug abuse patient.[facility] Encounter Details Date Type Department Care Team (Late st Contact Info) Description 12/08/2007 Patient Msg Medical Records [address] [place] [address] Provider, Ccf Appointment Request form Social History [...] on filedocumented in this encounter Care Teams House Worker Relationship Specialty Start Date End Date Camila Rodriguez MD [address] [facility] [address] PCP - General 10/13/09 12/28/12 Lizeth Tillman MD [address] [facility] [place] [address] PCP - General 08/16/09 10/12/09 Clinton Gonzales MD [address] [facility] [place] [address] PCP - General 09/02/08 08/15/09 Rich Chun MD [address] [facility] [place] [address] PCP - General 11/27/06 09/01/08 Adebayo Reddy MD [address] [address] [address] PCP - General Family Medicine 12/29/12 08/15/14 Ed Alfredo DO [address] [facility] [place] [place] [address] PCP - General Family Medicine 08/16/14 08/31/19 Darrius Orr MD [address] [place] [address] PCP - General Internal Medicine 09/01/19 Darrius Orr MD [address] [place] [address] Referring Internal Medicine 11/16/24 documented as of this encounter
--- OUTSIDE RECORDS SUMMARY | 2024-12-28 20:53 | XMS_ITS | Encounter Summary ---
Author Organization [facility] Address [address] [place] [address] Care Team Providers Care Avionics Mechanic Name Role Phone Camila Rodriguez MD Primary Care Provider + [phone] Lizeth Tillman MD Primary Care Provider [phone] Clinton Gonzales MD Primary Care Provider + [phone] Rich Chun MD Primary Care Provider + [phone] Adebayo Reddy MD Primary Care Provider [phone] Ed Alfredo DO Primary Care Provider [phone] Darrius Orr MD Primary Care Provider [phone] Darrius Orr MD Unavailable [phone] Source Comments In the event this information is protected by the Federal Confidentiality of Alcohol and Drug AbusePatient Records regulations: The Federal rules restrict any use of the information to criminally investigate or prosecute any alcohol or drug abuse patient.[facility] Encounter Details Date Type Department Care Team (Late st Contact Info) Description 03/24/2008 Patient Msg Medical Records [address] [place] [address] Provider, Ccf Appointment Cancellation Request Social History [...] on filedocumented in this encounter Care Teams Avionics Mechanic Relationship Specialty Start Date End Date Camila Rodriguez MD [address] [facility] [place] [address] PCP - General 10/13/09 12/28/12 Lizeth Tillman MD [address] [facility] [place] [address] PCP - General 08/16/09 10/12/09 Clinton Gonzales MD [address] [facility] [place] [address] PCP - General 09/02/08 08/15/09 Rich Chun MD [address] [facility] [place] [address] PCP - General 11/27/06 09/01/08 Adebayo Reddy MD [address] [address] [address] PCP - General Family Medicine 12/29/12 08/15/14 Ed Alfredo DO [address] [facility] [address] [place] [address] PCP - General Family Medicine 08/16/14 08/31/19 Darrisu Orr MD [address] [place] [address] PCP - General Internal Medicine 09/01/19 Darrius Orr MD [address] [place] [address] Referring Internal Medicine 11/16/24 documented as of this encounter
--- OUTSIDE RECORDS SUMMARY | 2024-12-28 20:53 | XMS_ITS | Encounter Summary ---
Author Organization [facility] Address [address] [place] [address] Care Team Providers Care Storm Chaser Name Role Phone Camila Rodriguez MD Primary Care Provider + [phone] Lizeth Tillman MD Primary Care Provider [phone] Clinton Gonzales MD Primary Care Provider + [phone] Rich Chun MD Primary Care Provider + [phone] Adebayo Reddy MD Primary Care Provider [phone] Ed Alfredo DO Primary Care Provider [phone] Darrius Orr MD Primary Care Provider [phone] Darrius Orr MD Unavailable [phone] Source Comments In the event this information is protected by the Federal Confidentiality of Alcohol and Drug AbusePatient Records regulations: The Federal rules restrict any use of the information to criminally investigate or prosecute any alcohol or drug abuse patient.[facility] Encounter Details Date Type Department Care Team (Late st Contact Info) Description 09/07/2007 Patient Msg Medical Records [address] [place] [address] Provider, Ccf RE: Appointment Request form Social History Tobacco Use [...] on filedocumented in this encounter Care Teams Storm Chaser Relationship Specialty Start Date End Date Camila Rodriguez MD [address] [facility] [place] [address] PCP - General 10/13/09 12/28/12 Lizeth Tillman MD [address] [facility] [place] [address] PCP - General 08/16/09 10/12/09 Clinton Gonzales MD [address] [facility] [place] [address] PCP - General 09/02/08 08/15/09 Rich Chun MD [address] [facility] [place] [address] PCP - General 11/27/06 09/01/08 Adebayo Reddy MD [address] [address] [place] [address] PCP - General Family Medicine 12/29/12 08/15/14 Ed Alfredo DO [address] [facility] [address] [address] PCP - General Family Medicine 08/16/14 08/31/19 Darrius Orr MD [address] [place] [address] PCP - General Internal Medicine 09/01/19 Darrius Orr MD [address] [place] [address] Referring Internal Medicine 11/16/24 documented as of this encounter
--- OUTSIDE RECORDS SUMMARY | 2024-12-28 20:53 | XMS_ITS | Encounter Summary ---
Author Organization [facility] Address [address] [facility] [place] [address] Care Team Providers Care Top Lift Compressor Name Role Phone Darrius Orr MD Unavailable [phone] Darrius Orr MD Primary Care Provider [phone] Aiden Linares DPM Unavailable [phone] Kai Gutierres DO Unavailable [phone] Reason for Visit * Reason Onset Date Comments Referral 12/28/2024 Encounter Details Date Type Department Care Team ([facility] Contact Info) Description 12/28/2024 Telephone [facility] [address] [facility] [address] [place] [address] Yair Rosa PA [address] [facility] [address] [place] [address] Referral Social History Tobacco Use Types Packs/Day Years [...] encounter Miscellaneous Notes * Telephone Encounter - Jeni Potts - 12/28/2024 1:40 PM EDT Patient called very upset and left vm stating he needs to speak with Yair Rosa. He stated that is unable to see him due to his BMI and blood sugar he needs to go to the [facility].He needs referred to the [facility] he stated. Please call patient at [phone] documented in this encounter Plan of Treatment Upcoming Encounters Date Type Department Care Team (Late st Contact Info) Description 12/30/2024 9:45 AM EDT Office Visit [facility] [address] [place] [address] 01/04/2025 1:00 PM EDT Office Visit YOLANDA CAPELLAN [address] [facility] [address] [place] [address] Kai Gutierres DO [address] [place] [id number] 01/05/2025 3:45 PM EDT Office Visit [facility] [address] [place] [address] Susie Mary DPM [address] [place] [address] 02/28/2025 1:30 PM EDT Office Visit [facility] [address] [place] [address] documented as of this encounter Visit Diagnoses Not on filedocumented in this encounter Care Teams Top Lift Compressor Relationship Specialty Start Date End Date Darrius Orr MD [address] [facility] [address] [place] [address] PCP - Hum[employer] 08/04/19 Darrius Orr MD [address] [place] [address] PCP - General Internal Medicine 12/31/22 Aiden Linares DPM [address] [facility] [address] [place] [address] Referring Physician Podiatry 10/30/23 Kai Gutierres DO [address] [facility] [address] [place] [address] Referring Physician Neurology 02/24/24 documented as of this encounter
--- OUTSIDE RECORDS SUMMARY | 2024-12-28 20:53 | XMS_ITS | Encounter Summary ---
Author Organization [facility] Address [address] [place] [address] Care Team Providers Care Electron Beam Machine Welder Setter Name Role Phone Camila Rodriguez MD Primary Care Provider + [phone] Lizeth Tillman MD Primary Care Provider [phone] Clinton Gonzales MD Primary Care Provider + [phone] Rich Chun MD Primary Care Provider + [phone] Adebayo Reddy MD Primary Care Provider [phone] Ed Alfredo DO Primary Care Provider [phone] Darrius Orr MD Primary Care Provider [phone] Darrius Orr MD Unavailable [phone] Source Comments In the event this information is protected by the Federal Confidentiality of Alcohol and Drug AbusePatient Records regulations: The Federal rules restrict any use of the information to criminally investigate or prosecute any alcohol or drug abuse patient.[facility] Encounter Details Date Type Department Care Team (Late st Contact Info) Description 03/07/2008 Patient Msg Medical Records [address] [place] [address] Provider, Ccf RE: Appointment Cancellation Request Social [...] on filedocumented in this encounter Care Teams Electron Beam Machine Welder Setter Relationship Specialty Start Date End Date Camila Rodriguez MD [address] [facility] [place] [address] PCP - General 10/13/09 12/28/12 Lizeth Tillman MD [address] [facility] [place] [address] PCP - General 08/16/09 10/12/09 Clinton Gonzales MD [address] [facility] [place] [address] PCP - General 09/02/08 08/15/09 Rich Chun MD [address] [facility] [place] [address] PCP - General 11/27/06 09/01/08 Adebayo Reddy MD [address] [address] [place] [address] PCP - General Family Medicine 12/29/12 08/15/14 Ed Alfredo DO [address] [facility] [address] [place] [address] PCP - General Family Medicine 08/16/14 08/31/19 Darrius Orr MD [address] [place] [address] PCP - General Internal Medicine 09/01/19 Darrius Orr MD [address] [place] [address] Referring Internal Medicine 11/16/24 documented as of this encounter
--- OUTSIDE RECORDS SUMMARY | 2024-12-28 20:53 | XMS_ITS | Encounter Summary ---
Author Organization [facility] Address [address] [place] [address] Care Team Providers Care Pool Attendant Name Role Phone Adebayo Reddy MD Primary Care Provider [phone] Ed Alfredo DO Primary Care Provider [phone] Darrius Orr MD Primary Care Provider [phone] Darrius Orr MD Unavailable [phone] Source Comments In the event this information is protected by the Federal Confidentiality of Alcohol and Drug AbusePatient Records regulations: The Federal rules restrict any use of the information to criminally investigate or prosecute any alcohol or drug abuse patient.[facility] Encounter Details Date Type Department Care Team (Late st Contact Info) Description 09/03/2013 Patient Msg Medical Records [address] [place] [address] Provider, Ccf Request an Appointment Social History Tobacco Use [...] on filedocumented in this encounter Care Teams Pool Attendant Relationship Specialty Start Date End Date Adebayo Reddy MD [address] [place] [address] PCP - General Family Medicine 12/29/12 08/15/14 Ed Alfredo DO [address] [place] [address] PCP - General Family Medicine 08/16/14 08/31/19 Darrius Orr MD [address] [place] [address] PCP - General Internal Medicine 09/01/19 Darrius Orr MD [address] [place], [place] Referring Internal Medicine 11/16/24 documented as of this encounter
--- OUTSIDE RECORDS SUMMARY | 2024-12-28 20:53 | XMS_ITS | Encounter Summary ---
Author Organization [facility] Address [address] [facility] [address] Care Team Providers Care Firewood Cutter Name Role Phone Darrius Orr MD Unavailable [phone] Darrius Orr MD Primary Care Provider [phone] Aiden Linares DPM Unavailable [phone] Kai Gutierres DO Unavailable [phone] Encounter Details Date Type Department Care Team ([facility] Contact Info) Description 12/09/2024 Orders Only [facility] [address] [facility] [address] [place] [address] Darrius Orr MD [address] [facility] [address] [place] [address] Social History Tobacco Use Types Packs/Day Years [...] [address] [place] [address] 01/04/2025 1:00 PM EDT Office Visit YOLANDA CAPELLAN [address] [place] [address] Kai Gutierres DO [address] [place] [address] 01/05/2025 3:45 PM EDT Office Visit [facility] [address] [place] [address] Susie Mary DPM [address] [place] [address] 02/28/2025 1:30 PM EDT Office Visit [facility] [address] [place] [address] documented as of this encounter Visit Diagnoses Not on filedocumented in this encounter Care Teams Firewood Cutter Relationship Specialty Start Date End Date Darrius Orr MD [address] [place] [address] PCP - Hum[employer] 08/04/19 Darrius Orr MD [address] [place] [address] PCP - General Internal Medicine 12/31/22 Aiden Linares DPM [address] [place] [address] Referring Physician Podiatry 10/30/23 Kai Gutierres DO [address] [address] Referring Physician Neurology 02/24/24 documented as of this encounter
--- OUTSIDE RECORDS SUMMARY | 2024-12-28 20:53 | XMS_ITS | Encounter Summary ---
Author Organization [facility] Address [address] [place] [address] Care Team Providers Care Battery Filler Name Role Phone Camila Rodriguez MD Primary Care Provider + [phone] Lizeth Tillman MD Primary Care Provider [phone] Clinton Gonzales MD Primary Care Provider + [phone] Rich Chun MD Primary Care Provider + [phone] Adebayo Reddy MD Primary Care Provider [phone] Ed Alfredo DO Primary Care Provider [phone] Darrius Orr MD Primary Care Provider [phone] Darrius Orr MD Unavailable [phone] Source Comments In the event this information is protected by the Federal Confidentiality of Alcohol and Drug AbusePatient Records regulations: The Federal rules restrict any use of the information to criminally investigate or prosecute any alcohol or drug abuse patient.[facility] Encounter Details Date Type Department Care Team (Late st Contact Info) Description 05/09/2008 Patient Msg Medical Records [address] [place] [address] Provider, Ccf Request an Appointment Social History [...] on filedocumented in this encounter Care Teams Battery Filler Relationship Specialty Start Date End Date Camila Rodriguez MD [address] [facility] [place] [address] PCP - General 10/13/09 12/28/12 Lizeth Tillman MD [address] [facility] [place] [address] PCP - General 08/16/09 10/12/09 Clinton Gonzales MD [address] [facility] [place] [address] PCP - General 09/02/08 08/15/09 Rich Chun MD [address] [facility] [place] [place] [address] PCP - General 11/27/06 09/01/08 Adebayo Reddy MD [address] [address] [address] PCP - General Family Medicine 12/29/12 08/15/14 Ed Alfredo DO [address] [facility] [place] [place] [address] PCP - General Family Medicine 08/16/14 08/31/19 Darrius Orr MD [address] [place] [address] PCP - General Internal Medicine 09/01/19 Darrius Orr MD [address] [place] [address] Referring Internal Medicine 11/16/24 documented as of this encounter
--- OUTSIDE RECORDS SUMMARY | 2024-12-28 20:53 | XMS_ITS | Encounter Summary ---
Author Organization [facility] Address [address] [place] [address] Care Team Providers Care Event Set Up Specialist Name Role Phone Camila Rodriguez MD Primary Care Provider + [phone] Lizeth Tillman MD Primary Care Provider [phone] Clinton Gonzales MD Primary Care Provider + [phone] Rich Chun MD Primary Care Provider + [phone] Adebayo Reddy MD Primary Care Provider [phone] Ed Alfredo DO Primary Care Provider [phone] Darrius Orr MD Primary Care Provider [phone] Darrius Orr MD Unavailable [phone] Source Comments In the event this information is protected by the Federal Confidentiality of Alcohol and Drug AbusePatient Records regulations: The Federal rules restrict any use of the information to criminally investigate or prosecute any alcohol or drug abuse patient.[facility] Encounter Details Date Type Department Care Team (Late st Contact Info) Description 10/13/2007 Patient Msg Medical Records [address] [place] [address] Provider, Ccf Appointment Request form Social History [...] on filedocumented in this encounter Care Teams Event Set Up Specialist Relationship Specialty Start Date End Date Camila Rodriguez MD [address] [facility] [place] [address] PCP - General 10/13/09 12/28/12 Lizeth Tillman MD [address] [facility] [place] [address] PCP - General 08/16/09 10/12/09 Clinton Gonzales MD [address] [facility] [place] [address] PCP - General 09/02/08 08/15/09 Rich Chun MD [address] [facility] [place] [address] PCP - General 11/27/06 09/01/08 Adebayo Reddy MD [address] [address] [address] PCP - General Family Medicine 12/29/12 08/15/14 Ed Alfredo DO [address] [facility] [place] [address] PCP - General Family Medicine 08/16/14 08/31/19 Darrius Orr MD [address] [place] [address] PCP - General Internal Medicine 09/01/19 Darrius Orr MD [address] [place] [address] Referring Internal Medicine 11/16/24 documented as of this encounter
--- OUTSIDE RECORDS SUMMARY | 2024-12-28 20:53 | XMS_ITS | Encounter Summary ---
Author Organization [facility] Address [address] [place] [address] Care Team Providers Care Adapted Physical Education Teacher Name Role Phone Darrius Orr MD Unavailable [phone] Darrius Orr MD Primary Care Provider [phone] Aiden Linares DPM Unavailable [phone] Kai Gutierres DO Unavailable [phone] Encounter Details Date Type Department Care Team ([facility] Contact Info) Description 12/24/2024 Orders Only [facility] [address] [place] [phone] Unallocated, Noms Provider, [address] [place] [address] Social History Tobacco Use Types [...] [address] [place] [address] 01/04/2025 1:00 PM EDT Office Visit YOLANDA SANTANAUSKY [address] [place] [address] Kai Gutierres, [address] [place] [address] 01/05/2025 3:45 PM EDT Office Visit [facility] [address] [place] [address] Susie Mary DPM [address] [place] [address] 02/28/2025 1:30 PM EDT Office Visit [facility] [address] [place] [address] documented as of this encounter Procedures Procedure Name Priority Date/Time Associated Diagnosis Comments POCT GLUCOSE Routine 12/23/2024 11:58 AM EDT documented in this encounter Results * POCT glucose manually resulted (12/23/2024 11:58 AM EDT) Blood Capillary blood specimen / Unknown us Noms Provider Unallocated POINT OF CARE TEST ENTER/EDIT ORDERABLES Final Result documented in this encounter Visit Diagnoses Not on filedocumented in this encounter Care Teams Adapted Physical Education Teacher Relationship Specialty Start Date End Date Darrius Orr MD [address] [place] [address] PCP - [employer] 08/04/19 Darrius Orr MD [address] [place] [address] PCP - General Internal Medicine 12/31/22 Aiden Linares DPM [address] [facility] [address] [place] [address] Referring Physician Podiatry 10/30/23 Kai Gutierres DO [address] [phone] Referring Physician Neurology 02/24/24 documented as of this encounter
--- OUTSIDE RECORDS SUMMARY | 2024-12-28 20:53 | XMS_ITS | Encounter Summary ---
Author Organization [facility] Address [address] [place] [address] Care Team Providers Care Smearer Name Role Phone Camila Rodriguez MD Primary Care Provider [phone] Lizeth Tillman MD Primary Care Provider [phone] Clinton Gonzales MD Primary Care Provider + [phone] Rich Chun MD Primary Care Provider [phone] Adebayo Reddy MD Primary Care Provider [phone] Ed Alfredo DO Primary Care Provider [phone] Darrius Orr MD Primary Care Provider [phone] Darrius Orr MD Unavailable [phone] Source Comments In the event this information is protected by the Federal Confidentiality of Alcohol and Drug AbusePatient Records regulations: The Federal rules restrict any use of the information to criminally investigate or prosecute any alcohol or drug abuse patient.[facility] Encounter Details Date Type Department Care Team (Late st Contact Info) Description 03/24/2008 Patient Msg Medical Records [address] [place] [address] Provider, Ccf RE: Appointment Cancellation Request Social [...] on filedocumented in this encounter Care Teams Smearer Relationship Specialty Start Date End Date Camila Rodriguez MD [address] [facility] [place] [address] PCP - General 10/13/09 12/28/12 Lizeth Tillman MD [address] [facility] [place] [address] PCP - General 08/16/09 10/12/09 Clinton Gonzales MD [address] [facility] [place] [address] PCP - General 09/02/08 08/15/09 Rich Chun MD [address] [facility] [place] [address] PCP - General 11/27/06 09/01/08 Adebayo Reddy MD [address] [place] [address] PCP - General Family Medicine 12/29/12 08/15/14 Ed Alfredo DO [address] [facility] [address] [place] [address] PCP - General Family Medicine 08/16/14 08/31/19 Darrius Orr MD [address] [place] [address] PCP - General Internal Medicine 09/01/19 Darrius Orr MD [address] [place] [address] Referring Internal Medicine 11/16/24 documented as of this encounter
--- OUTSIDE RECORDS SUMMARY | 2024-12-28 20:53 | XMS_ITS | Encounter Summary ---
Author Organization [facility] Address [address] [place] [address] Care Team Providers Care Vest Busheler Name Role Phone Darrius Orr MD Unavailable [phone] Darrius Orr MD Primary Care Provider [phone] Aiden Linares DPM Unavailable [phone] Kai Gutierres DO Unavailable [phone] Reason for Visit * Reason Onset Date Comments lab results and orders 12/01/2024 Encounter Details Date Type Department Care Team (Latest Contact Info) Description 12/01/2024 Results Follow-Up [facility] [address] [facility] [address] [place] [address] Darrius Orr MD [address] [facility] [address] [place] [address] Vitamin D deficiency; Hyponatremia; Hyperkalemia; Mixed hyperlipidemia (CMS/HCC) Social History Tobacco Use Types Packs/Day Years [...] as of this encounter Miscellaneous Notes * Result Encounter Note - Darrius Orr MD - 12/09/2024 3:27 PM EDT Do not increase the insulin yet since he is not taking it every day. He needs to take it every day or all of his problems will stay uncontrolled. The sugar contributes to his problems. Is he taking 1or 2 Percocet at a time? * Result Encounter Note - Darrius Orr MD - 12/09/2024 1:50 PM EDT Please confirm if he is doing 100 units of Tresiba still? If so, his sugar is obviously still too high and I want him to go to 120 units daily. If not, let me know what he is doing. * Telephone Encounter - Yanelis Lane LPN - 12/02/2024 2:27 PM EDT Spoke to patient he was in the grocery store, so he could not give me the info about his insulin coverage how much and how often, he will call back later. Med list up dated. Needs refill on rosuvastatin 20 mg sent to [facility]. @ lab orders sent to [facility] for 1 week * Telephone Encounter - Yanelis Lane LPN - 12/02/2024 2:21 PM EDT ----- Message from Dr. Darrius Orr sent at 12/01/2024 6:44 AM EDT ----- -Please call and tell him the labs showed sugars are out of control and I need to know exactly how he is taking his insulin to include how much and how often, and does he miss any doses? -Cholesterol is very bad and I need to know if he is taking his rosuvastatin? If not, he needs to. If he is taking it, he needs to increase to 20 mg. -Potassium level is a little high and sodium level is a little low and these could be due to multiple reasons. We need to check again in one week. Send order for BMP, cortisol level (dx: hyperkalemia, hyponatremia). -The vitamin D level is low and the parathyroid is high and we need to increase the vitamin D to 3 days per week (adjust med list). ----- Message ----- From: Srikanth Horvath NP Sent: 11/30/2024 1:02 PM EDT To: Darrius Orr MD ----- Message ----- From: Interface, Incoming Lab [facility] Background Sent: 11/29/2024 3:04 PM EDT To: Srikanth Horvath NP * Result Encounter Note - Darrius Orr MD - 12/01/2024 6:44 AM EDT -Please call and tell him the labs showed sugars are out of control and I need to know exactly how he is taking his insulin to include how much and how often, and does he miss any doses? -Cholesterol is very bad and I need to know if he is taking his rosuvastatin? If not, he needs to. If he is taking it, he needs to increase to 20 mg. -Potassium level is a little high and sodium level is a little low and these could be due to multiple reasons. We need to check again in one week. Send order for BMP, cortisol level (dx: hyperkalemia, hyponatremia). -The vitamin D level is low and the parathyroid is high and we need to increase the vitamin D to 3 days per week (adjust med list). documented in this encounter Plan of Treatment Upcoming Encounters Date Type Department Care Team (Late st Contact Info) Description 12/30/2024 9:45 AM EDT Office Visit [facility] [address] [place] [address] 01/04/2025 1:00 PM EDT Office Visit YOLANDA CAPELLAN [address] [place] [address] Kai Gutierres DO [address] [place] [address] 01/05/2025 3:45 PM EDT Office Visit [facility] [address] [place] [address] Susie Mary DPM [address] [place] [address] 02/28/2025 1:30 PM EDT Office Visit [facility] [address] [place] [address] Scheduled Orders Name Type Priority Associated Diagnoses Orde r Schedule Basic metabolic panel Lab Routine Hyponatremia Expected: 12/09/2024 (Approximate), Expires: 06/04/2025 Cortisol Lab Routine Hyperkalemia Expected: 12/09/2024 (Approximate), Expires: 06/04/2025 documented as of this encounter Visit Diagnoses Diagnosis Vitamin D deficiency Hyponatremia Hyposmolality and/or hyponatremia Hyperkalemia Hyperpotassemia Mixed hyperlipidemia ([facility]/HCC) Mixed hyperlipidemia documented in this encounter Care Teams Vest Busheler Relationship Specialty Start Date End Date Darrius Orr MD [address] [place] [address] PCP - [employer] 08/04/19 Darrius Orr MD [address] [place] [address] PCP - General Internal Medicine 12/31/22 Aiden Linares DPM [address] [facility] [address] [place] [address] Referring Physician Podiatry 10/30/23 Kai Gutierres DO [address] [facility] [address] [place] [address] Referring Physician Neurology 02/24/24 documented as of this encounter
--- OUTSIDE RECORDS SUMMARY | 2024-12-28 20:53 | XMS_ITS | Encounter Summary ---
Author Organization [facility] Address [address] [place] [address] Care Team Providers Care Knitting Machine Tender Name Role Phone Darrius Orr MD Unavailable [phone] Darrius Orr MD Primary Care Provider [phone] Aiden Linares DPM Unavailable [phone] Kai Gutierres DO Unavailable [phone] Encounter Details Date Type Department Care Team (Latest Contact Info) Description 12/28/2024 Travel Social History Tobacco Use Types Packs/Day Years [...] Upcoming Encounters Date Type Department Care Team ( Contact Info) Description 12/30/2024 9:45 AM EDT Office Visit [facility] [address] [place] [address] 01/04/2025 1:00 PM EDT Office Visit YOLANDA CAPELLAN [address] [place] [address] Kai Gutierres DO [address] [place] [id number] 01/05/2025 3:45 PM EDT Office Visit [facility] [address] [place] [address] Susie Mary DPM [address] [place] [address] 02/28/2025 1:30 PM EDT Office Visit [facility] [address] [place] [address] documented as of this encounter Visit Diagnoses Not on filedocumented in this encounter Care Teams Knitting Machine Tender Relationship Specialty Start Date End Date Darrius Orr MD [address] [place] [address] PCP - [employer] 08/04/19 Darrius Orr MD [address] [place] [address] PCP - General Internal Medicine 12/31/22 Aiden Linares DPM [address] [place] [address] Referring Physician Podiatry 10/30/23 Kai Gutierres DO [address] [facility] [address] [place] [address] Referring Physician Neurology 02/24/24 documented as of this encounter
--- OUTSIDE RECORDS SUMMARY | 2024-12-28 20:53 | XMS_ITS | Encounter Summary ---
Author Organization [facility] Address [address] [facility] [place] [address] Care Team Providers Care Fuse Assembler Name Role Phone Darrius Orr MD Unavailable [phone] Darrius Orr MD Primary Care Provider [phone] Aiden Linares DPM Unavailable [phone] Kai Gutierres DO Unavailable [phone] Encounter Details Date Type Department Care Team ([facility] Contact Info) Description 12/27/2024 Orders Only [facility] [address] [facility] [address] [place] [address] Darrius Orr MD [address] [facility] [address] [place] [address] Spinal stenosis in cervical region Social History Tobacco Use Types Packs/Day Years [...] [address] [place] [address] 01/04/2025 1:00 PM EDT Office Visit YOLANDA CAPELLAN [address] [place] [address] Kai Gutierres DO [address] [place] [address] 01/05/2025 3:45 PM EDT Office Visit [facility] [address] [place] [address] Susie Mary DPM [address] [place] [address] 02/28/2025 1:30 PM EDT Office Visit [facility] [address] [place] [address] documented as of this encounter Visit Diagnoses Diagnosis Spinal stenosis in cervical region documented in this encounter Care Teams Fuse Assembler Relationship Specialty Start Date End Date Darrius Orr MD [address] [place] [address] PCP - [employer] 08/04/19 Darrius Orr MD [address] [place] [address] PCP - General Internal Medicine 12/31/22 Aiden Linares DPM [address] [place] [address] Referring Physician Podiatry 10/30/23 Kai Gutierres DO [address] [address] Referring Physician Neurology 02/24/24 documented as of this encounter
--- OUTSIDE RECORDS SUMMARY | 2024-12-28 20:53 | XMS_ITS | Encounter Summary ---
Author Organization [facility] Address [address] [place] [address] Care Team Providers Care Restaurant And Bar Manager Name Role Phone Camila Rodriguez MD Primary Care Provider [phone] Lizeth Tillman MD Primary Care Provider [phone] Adebayo Reddy MD Primary Care Provider [phone] Ed Alfredo DO Primary Care Provider [phone] Darrius Orr MD Primary Care Provider [phone] Darrius Orr MD Unavailable [phone] Source Comments In the event this information is protected by the Federal Confidentiality of Alcohol and Drug AbusePatient Records regulations: The Federal rules restrict any use of the information to criminally investigate or prosecute any alcohol or drug abuse patient.[facility] Encounter Details Date Type Department Care Team (Late st Contact Info) Description 09/26/2009 Patient Msg Medical Records [address] [place] [address] Provider, Ccf RE: Request an Appointment Social [...] on filedocumented in this encounter Care Teams Restaurant And Bar Manager Relationship Specialty Start Date End Date Camila Rodriguez MD [address] [facility] [place] [address] PCP - General 10/13/09 12/28/12 Lizeth Tillman MD [address] [facility] [place] [address] PCP - General 08/16/09 10/12/09 Adebayo Reddy MD [address] [facility] [address] [place] [address] PCP - General Family Medicine 12/29/12 08/15/14 Ed Alfredo DO [address] [facility] [address] [place] [address] PCP - General Family Medicine 08/16/14 08/31/19 Darrius Orr MD [address] [place] [address] PCP - General Internal Medicine 09/01/19 Darrius Orr MD [address] [place] [address] Referring Internal Medicine 11/16/24 documented as of this encounter
--- OUTSIDE RECORDS SUMMARY | 2024-12-28 20:53 | XMS_ITS | Encounter Summary ---
Author Organization [facility] Address [address] [place] [address] Care Team Providers Care Hepatologist Name Role Phone Darrius Orr MD Unavailable [phone] Darrius Orr MD Primary Care Provider [phone] Aiden Linares DPM Unavailable [phone] Kai Gutierres DO Unavailable [phone] Encounter Details Date Type Department Care Team (Latest Contact Info) Description 12/24/2024 Travel Social History Tobacco Use Types Packs/Day [...] Encounters Date Type Department Care Team ( st Contact Info) Description 12/30/2024 9:45 AM EDT Office Visit [facility] [address] [place] [address] 01/04/2025 1:00 PM EDT Office Visit YOLANDA CAPELLAN [address] [place] [address] Kai Gutierres DO [address] [place] [address] 01/05/2025 3:45 PM EDT Office Visit [facility] [address] [place] [address] Susie Mary DPM [address] [place] [address] 02/28/2025 1:30 PM EDT Office Visit [facility] [address] [place] [address] documented as of this encounter Visit Diagnoses Not on filedocumented in this encounter Care Teams Hepatologist Relationship Specialty Start Date End Date Darrius Orr MD [address] [place] [address] PCP - [employer] 08/04/19 Darrius Orr MD [address] [place] [address] PCP - General Internal Medicine 12/31/22 Aiden Linares DPM [address] [place] [address] Referring Physician Podiatry 10/30/23 Kai Gutierres DO [address] [facility] [address] [place] [address] Referring Physician Neurology 02/24/24 documented as of this encounter
--- OUTSIDE RECORDS SUMMARY | 2024-12-28 20:53 | XMS_ITS | Encounter Summary ---
Author Organization [facility] Address [address] [place] [address] Care Team Providers Care Drug Safety Associate Name Role Phone Adebayo Reddy MD Primary Care Provider [phone] Ed Alfredo DO Primary Care Provider [phone] Darrius Orr MD Primary Care Provider [phone] Darrius Orr MD Unavailable [phone] Source Comments In the event this information is protected by the Federal Confidentiality of Alcohol and Drug AbusePatient Records regulations: The Federal rules restrict any use of the information to criminally investigate or prosecute any alcohol or drug abuse patient.[facility] Encounter Details Date Type Department Care Team (Late st Contact Info) Description 09/06/2013 Patient Msg Medical Records [address] [place] [address] Provider, Ccf RE: Request an Appointment Social [...] on filedocumented in this encounter Care Teams Drug Safety Associate Relationship Specialty Start Date End Date Adebayo Reddy MD [address] [facility] [place] [address] PCP - General Family Medicine 12/29/12 08/15/14 Ed Alfredo DO [address] [facility] [place] [address] PCP - General Family Medicine 08/16/14 08/31/19 Darrius Orr MD [address] [place] [address] PCP - General Internal Medicine 09/01/19 Darrius Orr MD [address] [place] [address] Referring Internal Medicine 11/16/24 documented as of this encounter
--- OUTSIDE RECORDS SUMMARY | 2024-12-28 20:54 | XMS_ITS | Encounter Summary ---
Author Organization [facility] Address [address] [place] [address] Care Team Providers Care Printer Small Print Shop Name Role Phone Adebayo Reddy MD Primary Care Provider [phone] Ed Alfredo DO Primary Care Provider [phone] Darrius Orr MD Primary Care Provider [phone] Darrius Orr MD Unavailable [phone] Source Comments In the event this information is protected by the Federal Confidentiality of Alcohol and Drug AbusePatient Records regulations: The Federal rules restrict any use of the information to criminally investigate or prosecute any alcohol or drug abuse patient.[facility] Encounter Details Date Type Department Care Team (Late st Contact Info) Description 07/30/2014 Patient Msg Medical Records [address] [place] [address] Provider, Ccf RE:Ramiro Social History Tobacco Use Types Packs/Day Years [...] as of this encounter Functional Status * Are you deaf or do you have serious difficulty hearing? Answer Date of Assessment Author No 03/21/2014 10:11 AM EDT Karyn Alamo Ma * Are you blind or do you have serious difficulty seeing, even when wearing glasses? Answer Date of Assessment Author No 03/21/2014 10:11 AM EDT Sekou Ocampo Ma Karyn * Do you have serious difficulty walking or climbing stairs? Answer Date of Assessment Author No 03/21/2014 10:11 AM EDT Sekou Ocampo Ma Karyn * Do you have difficulty dressing or bathing? Answer Date of Assessment Author No 03/21/2014 10:11 AM EDT Sekou Ocampo Ma Karyn * Because of a physical, mental, or emotional condition, do you have difficulty doing errands alone such as visiting a doctor's office or shopping? Answer Date of Assessment Author No 03/21/2014 10:11 AM EDT Karyn Alamo Ma documented as of this encounter Mental Status * Because of a physical, mental, or emotional condition, do you have serious difficulty concentrating, remembering, or making decisions? Answer Entry Date Author No 03/21/2014 10:11 AM EDT Karyn Alamo Ma documented in this encounter Plan of Treatment Not on file documented as of this encounter Visit Diagnoses Not on filedocumented in this encounter Care Teams Printer Small Print Shop Relationship Specialty Start Date End Date Adebayo Reddy MD [address] [place] [address] PCP - General Family Medicine 12/29/12 08/15/14 Ed Alfredo DO [address] [facility] [place] [address] PCP - General Family Medicine 08/16/14 08/31/19 Darrius Orr MD [address] [place] [address] PCP - General Internal Medicine 09/01/19 Darrius Orr MD [address] [facility] [address] [place] [address] Referring Internal Medicine 11/16/24 documented as of this encounter
--- OUTSIDE RECORDS SUMMARY | 2024-12-28 20:54 | XMS_ITS | Encounter Summary ---
Author Organization [facility] Address [address] [place] [address] Care Team Providers Care Boarding Room Fixer Name Role Phone Camila Rodriguez MD Primary Care Provider [phone] Adebayo Reddy MD Primary Care Provider [phone] Ed Alfredo DO Primary Care Provider [phone] Darrius Orr MD Primary Care Provider [phone] Darrius Orr MD Unavailable [phone] Source Comments In the event this information is protected by the Federal Confidentiality of Alcohol and Drug AbusePatient Records regulations: The Federal rules restrict any use of the information to criminally investigate or prosecute any alcohol or drug abuse patient.[facility] Encounter Details Date Type Department Care Team (Late st Contact Info) Description 11/10/2009 Patient Msg Medical Records [address] [place] [address] Provider, Ccf RE: Request an Appointment Social [...] on filedocumented in this encounter Care Teams Boarding Room Fixer Relationship Specialty Start Date End Date Camila Rodriguez MD [address] [facility] [place] [address] PCP - General 10/13/09 12/28/12 Adebayo Reddy MD [address] [facility] [address] [place] [address] PCP - General Family Medicine 12/29/12 08/15/14 Ed Alfredo DO [address] [facility] [address] [place] [address] PCP - General Family Medicine 08/16/14 08/31/19 Darrius Orr MD [address] [place] [address] PCP - General Internal Medicine 09/01/19 Darrius Orr MD [address] [place] [address] Referring Internal Medicine 11/16/24 documented as of this encounter
--- OUTSIDE RECORDS SUMMARY | 2024-12-28 20:54 | XMS_ITS | Encounter Summary ---
Author Organization [facility] Address [address] [place] [address] Care Team Providers Care Slate Splitting Supervisor Name Role Phone Adebayo Reddy MD Primary Care Provider [phone] Ed Alfredo DO Primary Care Provider [phone] Darrius Orr MD Primary Care Provider [phone] Darrius Orr MD Unavailable [phone] Source Comments In the event this information is protected by the Federal Confidentiality of Alcohol and Drug AbusePatient Records regulations: The Federal rules restrict any use of the information to criminally investigate or prosecute any alcohol or drug abuse patient.[facility] Encounter Details Date Type Department Care Team (Late st Contact Info) Description 02/14/2014 Patient Msg Medical Records [address] [place] [address] Provider, Ccf RE: Appointment Cancellation Request Social [...] hearing? Answer Date of Assessment Author No 02/11/2014 11:50 AM EDT Harini Samuel MA * Are you blind or do you have serious difficulty seeing, even when wearing glasses? Answer Date of Assessment Author No 02/11/2014 11:50 AM EDT Harini Samuel MA * Do you have serious difficulty walking or climbing stairs? Answer Date of Assessment Author No 02/11/2014 11:50 AM Harini Eldridge MA * Do you have difficulty dressing or bathing? Answer Date of Assessment Author No 02/11/2014 11:50 AM Harini Eldridge MA * Because of a physical, mental, or emotional condition, do you have difficulty doing errands alone such as visiting a doctor's office or shopping? Answer Date of Assessment Author No 02/11/2014 11:50 AM Harini Eldridge MA documented as of this encounter Mental Status * Because of a physical, mental, or emotional condition, do you have serious difficulty concentrating, remembering, or making decisions? Answer Entry Date Author No 02/11/2014 11:50 AM Harini Eldridge MA documented in this encounter Plan of Treatment Not on file documented as of this encounter Visit Diagnoses Not on filedocumented in this encounter Care Teams Slate Splitting Supervisor Relationship Specialty Start Date End Date Adebayo Reddy MD [address] [place] [address] PCP - General Family Medicine 12/29/12 08/15/14 Ed Alfredo DO [address] [place] [address] PCP - General Family Medicine 08/16/14 08/31/19 Darrius Orr MD [address] [place] [address] PCP - General Internal Medicine 09/01/19 Darrius Orr MD [address] [place] [address] Referring Internal Medicine 11/16/24 documented as of this encounter
--- OUTSIDE RECORDS SUMMARY | 2024-12-28 20:54 | XMS_ITS | Encounter Summary ---
Author Organization [facility] Address [address] [place] [address] Care Team Providers Care Smeller Name Role Phone Ed Alfredo DO Primary Care Provider [phone] Darrius Orr MD Primary Care Provider [phone] Darrius Orr MD Unavailable [phone] Source Comments In the event this information is protected by the Federal Confidentiality of Alcohol and Drug AbusePatient Records regulations: The Federal rules restrict any use of the information to criminally investigate or prosecute any alcohol or drug abuse patient.[facility] Encounter Details Date Type Department Care Team (Late st Contact Info) Description 08/17/2014 Get Medical Advice Neurology [address] [place] [address] Clayton Campos MD [address] [address] Test Result Question Social History Tobacco Use Types Packs/Day Years [...] hearing? Answer Date of Assessment Author No 08/17/2014 11:35 AM Mckay Cool MA * Are you blind or do you have serious difficulty seeing, even when wearing glasses? Answer Date of Assessment Author No 08/17/2014 11:35 AM Mckay Cool MA * Do you have serious difficulty walking or climbing stairs? Answer Date of Assessment Author No 08/17/2014 11:35 AM Mckay Cool MA * Do you have difficulty dressing or bathing? Answer Date of Assessment Author No 08/17/2014 11:35 AM Mckay Cool MA * Because of a physical, mental, or emotional condition, do you have difficulty doing errands alone such as visiting a doctor's office or shopping? Answer Date of Assessment Author No 08/17/2014 11:35 AM Mckay Cool MA documented as of this encounter Mental Status * Because of a physical, mental, or emotional condition, do you have serious difficulty concentrating, remembering, or making decisions? Answer Entry Date Author No 08/17/2014 11:35 AM Mckay Cool MA documented in this encounter Plan of Treatment Not on file documented as of this encounter Visit Diagnoses Not on filedocumented in this encounter Care Teams Smeller Relationship Specialty Start Date End Date Ed Alfredo DO PCP - General Family Medicine 08/16/14 08/31/19 Darrius Orr MD [address] [place] [address] PCP - General Internal Medicine 09/01/19 Darrius Orr MD [address] [place] [address] Referring Internal Medicine 11/16/24 documented as of this encounter
--- OUTSIDE RECORDS SUMMARY | 2024-12-28 20:54 | XMS_ITS | Encounter Summary ---
Author Organization [facility] Address [address] [place] [address] Care Team Providers Care Customer Insight Analyst Name Role Phone Camila Rodriguez MD Primary Care Provider [phone] Adebayo Reddy MD Primary Care Provider [phone] Ed Alfredo DO Primary Care Provider [phone] Darrius Orr MD Primary Care Provider [phone] Darrius Orr MD Unavailable [phone] Source Comments In the event this information is protected by the Federal Confidentiality of Alcohol and Drug AbusePatient Records regulations: The Federal rules restrict any use of the information to criminally investigate or prosecute any alcohol or drug abuse patient.[facility] Encounter Details Date Type Department Care Team (Late st Contact Info) Description 04/26/2010 Patient Msg Medical Records [address] [place] [address] Provider, Ccf appt. with Yood Social History Tobacco Use Types Packs/Day Years Used Date Smoking Tobacco: Every Day Cigarettes 0.5 20 Alcohol Use Standard Drinks/Week Comments No [...] on filedocumented in this encounter Care Teams Customer Insight Analyst Relationship Specialty Start Date End Date Camila Rodriguez MD [address] [place] [address] PCP - General 10/13/09 12/28/12 Adebayo Reddy MD [address] [facility] [address] [place] [address] PCP - General Family Medicine 12/29/12 08/15/14 Ed Alfredo DO [address] [place] [address] PCP - General Family Medicine 08/16/14 08/31/19 Darrius Orr MD [address] [place] [address] PCP - General Internal Medicine 09/01/19 Darrius Orr MD [address] [place] [address] Referring Internal Medicine 11/16/24 documented as of this encounter
--- OUTSIDE RECORDS SUMMARY | 2024-12-28 20:54 | XMS_ITS | Encounter Summary ---
Author Organization [facility] Address [address] [place] [address] Care Team Providers Care White Metal Corrosion Proofer Name Role Phone Adebayo Reddy MD Primary Care Provider [phone] Ed Alfredo DO Primary Care Provider [phone] Darrius Orr MD Primary Care Provider [phone] Darrius Orr MD Unavailable [phone] Source Comments In the event this information is protected by the Federal Confidentiality of Alcohol and Drug AbusePatient Records regulations: The Federal rules restrict any use of the information to criminally investigate or prosecute any alcohol or drug abuse patient.[facility] Reason for Visit * Reason Comments Management Of High Risk Medications Encounter Details Date Type Department Care Team (Late st Contact Info) Description 04/27/2014 [facility] [address] [place], [place] [id number] Clayton Campos MD [address] [place] [address] Management Of High Risk Medications Social History Tobacco Use Types Packs/Day Years [...] 10:11 AM EDT Karyn Alamo Ma * Do you have serious difficulty walking or climbing stairs? Answer Date of Assessment Author No 03/21/2014 10:11 AM EDT Karyn Alamo Ma * Do you have difficulty dressing or bathing? Answer Date of Assessment Author No 03/21/2014 10:11 AM EDT Karyn Alamo Ma * Because of a physical, mental, or [...] on filedocumented in this encounter Care Teams White Metal Corrosion Proofer Relationship Specialty Start Date End Date Adebayo Reddy MD [address] [place] [address] PCP - General Family Medicine 12/29/12 08/15/14 Ed Alfredo DO [address] [place] [address] PCP - General Family Medicine 08/16/14 08/31/19 Darrius Orr MD [address] [place] [address] PCP - General Internal Medicine 09/01/19 Darrius Orr MD [address] [place] [address] Referring Internal Medicine 11/16/24 documented as of this encounter
--- OUTSIDE RECORDS SUMMARY | 2024-12-28 20:54 | XMS_ITS | Encounter Summary ---
Author Organization [facility] Address [address] [place] [address] Care Team Providers Care Headhunter Name Role Phone Adebayo Reddy MD Primary Care Provider [phone] Ed Alfredo DO Primary Care Provider [phone] Darrius Orr MD Primary Care Provider [phone] Darrius Orr MD Unavailable [phone] Source Comments In the event this information is protected by the Federal Confidentiality of Alcohol and Drug AbusePatient Records regulations: The Federal rules restrict any use of the information to criminally investigate or prosecute any alcohol or drug abuse patient.[facility] Encounter Details Date Type Department Care Team (Late st Contact Info) Description 02/12/2014 Patient Msg Medical Records [address] [place] [address] Provider, Ccf RE: Request an Appointment Social [...] on filedocumented in this encounter Care Teams Headhunter Relationship Specialty Start Date End Date Adebayo Reddy MD [address] [place] [address] PCP - General Family Medicine 12/29/12 08/15/14 Ed Alfredo DO [address] [place] [address] PCP - General Family Medicine 08/16/14 08/31/19 Darrius Orr MD [address] [place] [address] PCP - General Internal Medicine 09/01/19 Darrius Orr MD [address] [place] [address] Referring Internal Medicine 11/16/24 documented as of this encounter
--- OUTSIDE RECORDS SUMMARY | 2024-12-28 20:54 | XMS_ITS | Encounter Summary ---
Author Organization [facility] Address [address] [place] [address] Care Team Providers Care Commercial Lending Vice President Name Role Phone Adebayo Reddy MD Primary Care Provider [phone] Ed Alfredo DO Primary Care Provider [phone] Darrius Orr MD Primary Care Provider [phone] Darrius Orr MD Unavailable Source Comments In the event this information is protected by the Federal Confidentiality of Alcohol and Drug AbusePatient Records regulations: The Federal rules restrict any use of the information to criminally investigate or prosecute any alcohol or drug abuse patient.[facility] Encounter Details Date Type Department Care Team (Late st Contact Info) Description 01/04/2014 Patient Msg Medical Records [address] [place] [address] Provider, Ccf RE: Request an Appointment Social [...] on filedocumented in this encounter Care Teams Commercial Lending Vice President Relationship Specialty Start Date End Date Adebayo Reddy MD [address] [facility] [place] [address] PCP - General Family Medicine 12/29/12 08/15/14 Ed Alfredo DO [address] [facility] [place] [address] PCP - General Family Medicine 08/16/14 08/31/19 Darrius Orr MD [address] [place] [address] PCP - General Internal Medicine 09/01/19 Darrius Orr MD [address] [place] [address] Referring Internal Medicine 11/16/24 documented as of this encounter
--- OUTSIDE RECORDS SUMMARY | 2024-12-28 20:54 | XMS_ITS | Encounter Summary ---
Author Organization [facility] Address [address] [place] [address] Care Team Providers Care Cogeneration Technician Name Role Phone Adebayo Reddy MD Primary Care Provider Ed Alfredo DO Primary Care Provider [phone] Darrius Orr MD Primary Care Provider [phone] Darrius Orr MD Unavailable [phone] Source Comments In the event this information is protected by the Federal Confidentiality of Alcohol and Drug AbusePatient Records regulations: The Federal rules restrict any use of the information to criminally investigate or prosecute any alcohol or drug abuse patient.[facility] Encounter Details Date Type Department Care Team (Late st Contact Info) Description 02/28/2014 Patient Msg Medical Records [facility] [place] [address] Provider, Ccf RE: Appointment Cancellation Request Social [...] hearing? Answer Date of Assessment Author No 02/28/2014 7:00 AM EDT Nguyen Cowartitlyn (At)(Hist) * Are you blind or do you have serious difficulty seeing, even when wearing glasses? Answer Date of Assessment Author No 02/28/2014 7:00 AM EDT Torolcsak Therese (At)(Hist) * Do you have serious difficulty walking or climbing stairs? Answer Date of Assessment Author No 02/28/2014 7:00 AM EDT Nguyen Cowartitlyn (At)(Hist) * Do you have difficulty dressing or bathing? Answer Date of Assessment Author No 02/28/2014 7:00 AM EDT Nguyen Cowartitlyn (At)(Hist) * Because of a physical, mental, or emotional condition, do you have difficulty doing errands alone such as visiting a doctor's office or shopping? Answer Date of Assessment Author No 02/28/2014 7:00 AM EDT Nguyen Cowartitlyn (At)(Hist) documented as of this encounter Mental Status * Because of a physical, mental, or emotional condition, do you have serious difficulty concentrating, remembering, or making decisions? Answer Entry Date Author No 02/28/2014 7:00 AM EDT Nguyen Cowartitlyn (At)(Hist) documented in this encounter Plan of Treatment Not on file documented as of this encounter Visit Diagnoses Not on filedocumented in this encounter Care Teams Cogeneration Technician Relationship Specialty Start Date End Date Adebayo Reddy MD [address] [place] [address] PCP - General Family Medicine 12/29/12 08/15/14 Ed Alfredo DO [address] [place] [address] PCP - General Family Medicine 08/16/14 08/31/19 Darrius Orr MD [address] [place] [address] PCP - General Internal Medicine 09/01/19 Darrius Orr MD [address] [place] [address] Referring Internal Medicine 11/16/24 documented as of this encounter
--- OUTSIDE RECORDS SUMMARY | 2024-12-28 20:54 | XMS_ITS | Encounter Summary ---
Author Organization [facility] Address [address] [place] [address] Care Team Providers Care Gutter Mouth Cutter Name Role Phone Adebayo Reddy MD Primary Care Provider [phone] Ed Alfredo DO Primary Care Provider [phone] Darrius Orr MD Primary Care Provider [phone] Darrius Orr MD Unavailable [phone] Source Comments In the event this information is protected by the Federal Confidentiality of Alcohol and Drug AbusePatient Records regulations: The Federal rules restrict any use of the information to criminally investigate or prosecute any alcohol or drug abuse patient.[facility] Encounter Details Date Type Department Care Team (Late st Contact Info) Description 02/22/2014 Patient Msg Medical Records [address] [place] [address] Provider, Ccf RE: Patient Registration Completed Social [...] hearing? Answer Date of Assessment Author No 02/21/2014 2:11 PM EDT Patty Almonte MA * Are you blind or do you have serious difficulty seeing, even when wearing glasses? Answer Date of Assessment Author No 02/21/2014 2:11 PM EDT Patty Almonte MA * Do you have serious difficulty walking or climbing stairs? Answer Date of Assessment Author No 02/21/2014 2:11 PM EDT Patty Almonte MA * Do you have difficulty dressing or bathing? Answer Date of Assessment Author No 02/21/2014 2:11 PM EDT Patty Almonte MA * Because of a physical, mental, or emotional condition, do you have difficulty doing errands alone such as visiting a doctor's office or shopping? Answer Date of Assessment Author Yes 02/21/2014 2:11 PM EDT Patty Almonte MA documented as of this encounter Mental Status * Because of a physical, mental, or emotional condition, do you have serious difficulty concentrating, remembering, or making decisions? Answer Entry Date Author Yes 02/21/2014 2:11 PM Patty Hsu MA documented in this encounter Plan of Treatment Not on file documented as of this encounter Visit Diagnoses Not on filedocumented in this encounter Care Teams Gutter Mouth Cutter Relationship Specialty Start Date End Date Adebayo Reddy MD [address] [place] [address] PCP - General Family Medicine 12/29/12 08/15/14 Ed Alfredo DO [address] [place] [address] PCP - General Family Medicine 08/16/14 08/31/19 Darrius Orr MD [address] [place] [address] PCP - General Internal Medicine 09/01/19 Darrius Orr MD [address] [facility] [place] [place] [address] Referring Internal Medicine 11/16/24 documented as of this encounter
--- OUTSIDE RECORDS SUMMARY | 2024-12-28 20:54 | XMS_ITS | Encounter Summary ---
Author Organization [facility] Address [address] [place] [address] Care Team Providers Care Technical Publications Writer Name Role Phone Camila Rodriguez MD Primary Care Provider [phone] Adebayo Reddy MD Primary Care Provider [phone] Ed Alfredo DO Primary Care Provider [phone] Darrius Orr MD Primary Care Provider [phone] Darrius Orr MD Unavailable [phone] Source Comments In the event this information is protected by the Federal Confidentiality of Alcohol and Drug AbusePatient Records regulations: The Federal rules restrict any use of the information to criminally investigate or prosecute any alcohol or drug abuse patient.[facility] Encounter Details Date Type Department Care Team (Late st Contact Info) Description 11/20/2009 Patient Msg Medical Records [address] [place] [address] Provider, Ccf Appointment Cancellation Request Social History [...] on filedocumented in this encounter Care Teams Technical Publications Writer Relationship Specialty Start Date End Date Camila Rodriguez MD [address] [facility] [place] [address] PCP - General 10/13/09 12/28/12 Adebayo Reddy MD [address] [facility] [address] [place] [address] PCP - General Family Medicine 12/29/12 08/15/14 Ed Alfredo DO [address] [facility] [address] [place] [address] PCP - General Family Medicine 08/16/14 08/31/19 Darrius Orr MD [address] [place] [address] PCP - General Internal Medicine 09/01/19 Darrius Orr MD [address] [place] [address] Referring Internal Medicine 11/16/24 documented as of this encounter
--- OUTSIDE RECORDS SUMMARY | 2024-12-28 20:54 | XMS_ITS | Encounter Summary ---
Author Organization [facility] Address [facility] [place] [address] Care Team Providers Care Air Purifier Servicer Name Role Phone Ed Alfredo DO Primary Care Provider [phone] Darrius Orr MD Primary Care Provider [phone] Darrius Orr MD Unavailable [phone] Source Comments In the event this information is protected by the Federal Confidentiality of Alcohol and Drug AbusePatient Records regulations: The Federal rules restrict any use of the information to criminally investigate or prosecute any alcohol or drug abuse patient.[facility] Encounter Details Date Type Department Care Team (Late st Contact Info) Description 08/17/2014 Patient Msg Medical Records [address] [place] [address] Provider, Ccf Research Invitation Social History Tobacco Use Types Packs/Day Years [...] on filedocumented in this encounter Care Teams Air Purifier Servicer Relationship Specialty Start Date End Date Ed Alfredo DO PCP - General Family Medicine 08/16/14 08/31/19 Darrius Orr MD [address] [place] [address] PCP - General Internal Medicine 09/01/19 Darrius Orr MD [address] [place] [address] Referring Internal Medicine 11/16/24 documented as of this encounter
--- OUTSIDE RECORDS SUMMARY | 2024-12-28 20:54 | XMS_ITS | Encounter Summary ---
Author Organization [facility] Address [address] [place] [address] Care Team Providers Care Field Service Technician Poultry Name Role Phone Adebayo Reddy MD Primary Care Provider [phone] Ed Alfredo DO Primary Care Provider [phone] Darrius Orr MD Primary Care Provider [phone] Darrius Orr MD Unavailable [phone] Source Comments In the event this information is protected by the Federal Confidentiality of Alcohol and Drug AbusePatient Records regulations: The Federal rules restrict any use of the information to criminally investigate or prosecute any alcohol or drug abuse patient.[facility] Encounter Details Date Type Department Care Team (Late st Contact Info) Description 01/11/2014 Patient Msg Medical Records [address] [place] [address] Provider, Ccf Vitamin D Level Social History Tobacco Use Types Packs/Day Years [...] hearing? Answer Date of Assessment Author No 01/10/2014 3:58 PM EDT Venice Disla MA * Are you blind or do you have serious difficulty seeing, even when wearing glasses? Answer Date of Assessment Author Yes 01/10/2014 3:58 PM EDT Venice Disla MA * Do you have serious difficulty walking or climbing stairs? Answer Date of Assessment Author No 01/10/2014 3:58 PM EDT Venice Disla MA * Do you have difficulty dressing or bathing? Answer Date of Assessment Author No 01/10/2014 3:58 PM EDT Venice Disla MA * Because of a physical, mental, or emotional condition, do you have difficulty doing errands alone such as visiting a doctor's office or shopping? Answer Date of Assessment Author No 01/10/2014 3:58 PM EDT Venice Disla MA documented as of this encounter Mental Status * Because of a physical, mental, or emotional condition, do you have serious difficulty concentrating, remembering, or making decisions? Answer Entry Date Author Yes 01/10/2014 3:58 PM EDT Venice Disla MA documented in this encounter Plan of Treatment Not on file documented as of this encounter Visit Diagnoses Not on filedocumented in this encounter Care Teams Field Service Technician Poultry Relationship Specialty Start Date End Date Adebayo Reddy MD [address] [place] [address] PCP - General Family Medicine 12/29/12 08/15/14 Ed Alfredo DO [address] [place] [address] PCP - General Family Medicine 08/16/14 08/31/19 Darrius Orr MD [address] [place] [address] PCP - General Internal Medicine 09/01/19 Darrius Orr MD [address] [place] [address] Referring Internal Medicine 11/16/24 documented as of this encounter
--- OUTSIDE RECORDS SUMMARY | 2024-12-28 20:54 | XMS_ITS | Encounter Summary ---
Author Organization [facility] Address [address] [place] [address] Care Team Providers Care Telecommunications Project Manager Name Role Phone Camila Rodriguez MD Primary Care Provider [phone] Adebayo Reddy MD Primary Care Provider [phone] Ed Alfredo DO Primary Care Provider + [phone] Darrius Orr MD Primary Care Provider [phone] Darrius Orr MD Unavailable [phone] Source Comments In the event this information is protected by the Federal Confidentiality of Alcohol and Drug AbusePatient Records regulations: The Federal rules restrict any use of the information to criminally investigate or prosecute any alcohol or drug abuse patient.[facility] Encounter Details Date Type Department Care Team (Late st Contact Info) Description 11/03/2009 Patient Msg Medical Records [address] [place] [address] Provider, Ccf RE: Request an Appointment Social [...] on filedocumented in this encounter Care Teams Telecommunications Project Manager Relationship Specialty Start Date End Date Camila Rodriguez MD [address] [place] [address] PCP - General 10/13/09 12/28/12 Adebayo Reddy MD [address] [place] [address] PCP - General Family Medicine 12/29/12 08/15/14 Ed Alfredo DO [address] [place] [address] PCP - General Family Medicine 08/16/14 08/31/19 Darrius Orr MD [address] [place] [address] PCP - General Internal Medicine 09/01/19 Darrius Orr MD [address] [place] [address] Referring Internal Medicine 11/16/24 documented as of this encounter
--- OUTSIDE RECORDS SUMMARY | 2024-12-28 20:54 | XMS_ITS | Encounter Summary ---
Author Organization [facility] Address [address] [place] [address] Care Team Providers Care Electric Motor Winder Name Role Phone Adebayo Reddy MD Primary Care Provider [phone] Ed Alfredo DO Primary Care Provider [phone] Darrius Orr MD Primary Care Provider [phone] Darrius Orr MD Unavailable [phone] Source Comments In the event this information is protected by the Federal Confidentiality of Alcohol and Drug AbusePatient Records regulations: The Federal rules restrict any use of the information to criminally investigate or prosecute any alcohol or drug abuse patient.[facility] Encounter Details Date Type Department Care Team (Late st Contact Info) Description 03/18/2014 Patient Msg Medical Records [address] [place] [address] Provider, Ccf RE: Request an Appointment Social [...] Assessment Author No 02/28/2014 7:00 AM EDT Zsolcsak Therese (At)(Hist) * Do you have serious difficulty walking or climbing stairs? Answer Date of Assessment Author No 02/28/2014 7:00 AM EDT MyrandacsakNguyenTherese (At)(Hist) * Do you have difficulty dressing or bathing? Answer Date of Assessment Author No 02/28/2014 7:00 AM EDT MyrandacsNguyen everettTherese (At)(Hist) * Because of a physical, mental, [...] on filedocumented in this encounter Care Teams Electric Motor Winder Relationship Specialty Start Date End Date Adebayo Reddy MD [address] [place] [id number] PCP - General Family Medicine 12/29/12 08/15/14 Ed Alfredo DO [address] [place] [address] PCP - General Family Medicine 08/16/14 08/31/19 Darrius Orr MD [address] [place] [address] PCP - General Internal Medicine 09/01/19 Darrius Orr MD [address] [place] [address] Referring Internal Medicine 11/16/24 documented as of this encounter
--- OUTSIDE RECORDS SUMMARY | 2024-12-28 20:54 | XMS_ITS | Encounter Summary ---
Author Organization [facility] Address [address] [place] [address] Care Team Providers Care Pole Inspector Name Role Phone Adebayo Reddy MD Primary Care Provider [phone] Ed Alfredo DO Primary Care Provider [phone] Darrius Orr MD Primary Care Provider [phone] Darrius Orr MD Unavailable [phone] Source Comments In the event this information is protected by the Federal Confidentiality of Alcohol and Drug AbusePatient Records regulations: The Federal rules restrict any use of the information to criminally investigate or prosecute any alcohol or drug abuse patient.[facility] Encounter Details Date Type Department Care Team (Late st Contact Info) Description 07/31/2014 Patient Msg Medical Records [address] [place] [address] Provider, Ccf RE: Request an Appointment Social [...] on filedocumented in this encounter Care Teams Pole Inspector Relationship Specialty Start Date End Date Adebayo Reddy MD [address] [place] [address] PCP - General Family Medicine 12/29/12 08/15/14 Ed Alfredo DO [address] [facility] [place] [address] PCP - General Family Medicine 08/16/14 08/31/19 Darrius Orr MD [address] [place] [address] PCP - General Internal Medicine 09/01/19 Darrius Orr MD [address] [facility] [address] [place] [address] Referring Internal Medicine 11/16/24 documented as of this encounter
--- OUTSIDE RECORDS SUMMARY | 2024-12-28 20:54 | XMS_ITS | Encounter Summary ---
Author Organization [facility] Address [facility] [place] [address] Care Team Providers Care Office Service Coordinator Name Role Phone Ed Alfredo DO Primary Care Provider [phone] Darrius Orr MD Primary Care Provider [phone] Darrius Orr MD Unavailable [phone] Source Comments In the event this information is protected by the Federal Confidentiality of Alcohol and Drug AbusePatient Records regulations: The Federal rules restrict any use of the information to criminally investigate or prosecute any alcohol or drug abuse patient.[facility] Encounter Details Date Type Department Care Team (Late st Contact Info) Description 08/23/2014 Patient Msg Medical Records [address] [place] [address] Provider, Ccf RE:JCV results Social History Tobacco Use Types Packs/Day Years [...] on filedocumented in this encounter Care Teams Office Service Coordinator Relationship Specialty Start Date End Date Ed Alfredo DO PCP - General Family Medicine 08/16/14 08/31/19 Darrius Orr MD [address] [place] [address] PCP - General Internal Medicine 09/01/19 Darrius Orr MD [address] [place] [address] Referring Internal Medicine 11/16/24 documented as of this encounter
--- OUTSIDE RECORDS SUMMARY | 2024-12-28 20:54 | XMS_ITS | Encounter Summary ---
Author Organization [facility] Address [address] [place] [address] Care Team Providers Care Salt Miner Name Role Phone Camila Rodriguez MD Primary Care Provider [phone] Lizeth Tillman MD Primary Care Provider [phone] Adebayo Reddy MD Primary Care Provider [phone] Ed Alfredo DO Primary Care Provider [phone] Darrius Orr MD Primary Care Provider [phone] Darrius Orr MD Unavailable [phone] Source Comments In the event this information is protected by the Federal Confidentiality of Alcohol and Drug AbusePatient Records regulations: The Federal rules restrict any use of the information to criminally investigate or prosecute any alcohol or drug abuse patient.[facility] Encounter Details Date Type Department Care Team (Late st Contact Info) Description 10/10/2009 Patient Msg Medical Records [address] [place] [address] Provider, Ccf RE: Request an Appointment Social [...] on filedocumented in this encounter Care Teams Salt Miner Relationship Specialty Start Date End Date Camila Rodriguez MD [address] [place] [address] PCP - General 10/13/09 12/28/12 Lizeth Tillman MD [address] [place] [address] PCP - General 08/16/09 10/12/09 Adebayo Reddy MD [address] [facility] [address] [place] [address] PCP - General Family Medicine 12/29/12 08/15/14 Ed Alfredo DO [address] [facility] [address] [place] [address] PCP - General Family Medicine 08/16/14 08/31/19 Darrius Orr MD [address] [place] [address] PCP - General Internal Medicine 09/01/19 Darrius Orr MD [address] [place] [address] Referring Internal Medicine 11/16/24 documented as of this encounter
--- OUTSIDE RECORDS SUMMARY | 2024-12-28 20:54 | XMS_ITS | Encounter Summary ---
Author Organization [facility] Address [address] [place] [address] Care Team Providers Care Child Center Assistant Name Role Phone Camila Rodriguez MD Primary Care Provider [phone] Adebayo Reddy MD Primary Care Provider [phone] Ed Alfredo DO Primary Care Provider [phone] Darrius Orr MD Primary Care Provider [phone] Darrius Orr MD Unavailable [phone] Source Comments In the event this information is protected by the Federal Confidentiality of Alcohol and Drug AbusePatient Records regulations: The Federal rules restrict any use of the information to criminally investigate or prosecute any alcohol or drug abuse patient.[facility] Encounter Details Date Type Department Care Team (Late st Contact Info) Description 11/29/2009 Patient Msg Medical Records [address] [place] [address] Provider, Ccf Appointment Cancellation Request Social History [...] on filedocumented in this encounter Care Teams Child Center Assistant Relationship Specialty Start Date End Date Camila Rodriguez MD [address] [facility] [place] [address] PCP - General 10/13/09 12/28/12 Adebayo Reddy MD [address] [facility] [address] [place] [address] PCP - General Family Medicine 12/29/12 08/15/14 Ed Alfredo DO [address] [facility] [address] [place] [address] PCP - General Family Medicine 08/16/14 08/31/19 Darrius Orr MD [address] [place] [address] PCP - General Internal Medicine 09/01/19 Darrius Orr MD [address] [place] [address] Referring Internal Medicine 11/16/24 documented as of this encounter
--- OUTSIDE RECORDS SUMMARY | 2024-12-28 20:54 | XMS_ITS | Encounter Summary ---
Author Organization [facility] Address [address] [place] [address] Care Team Providers Care Applications Administrator Name Role Phone Camila Rodriguez MD Primary Care Provider [phone] Adebayo Reddy MD Primary Care Provider [phone] Ed Alfredo DO Primary Care Provider [phone] Darrius Orr MD Primary Care Provider [phone] Darrius Orr MD Unavailable [phone] Source Comments In the event this information is protected by the Federal Confidentiality of Alcohol and Drug AbusePatient Records regulations: The Federal rules restrict any use of the information to criminally investigate or prosecute any alcohol or drug abuse patient.[facility] Encounter Details Date Type Department Care Team (Late st Contact Info) Description 04/25/2010 Patient Msg Medical Records [address] [place] [address] Provider, Ccf Request an Appointment Social History [...] on filedocumented in this encounter Care Teams Applications Administrator Relationship Specialty Start Date End Date Camila Rodriguez MD [address] [place] [address] PCP - General 10/13/09 12/28/12 Adebayo Reddy MD [address] [facility] [address] [place] [address] PCP - General Family Medicine 12/29/12 08/15/14 Ed Alfredo DO [address] [facility] [address] [place] [address] PCP - General Family Medicine 08/16/14 08/31/19 Darrius Orr MD [address] [place] [address] PCP - General Internal Medicine 09/01/19 Darrius Orr MD [address] [place] [address] Referring Internal Medicine 11/16/24 documented as of this encounter
--- OUTSIDE RECORDS SUMMARY | 2024-12-28 20:54 | XMS_ITS | Encounter Summary ---
Author Organization [facility] Address [address] [place] [address] Care Team Providers Care Warehouse Helper Name Role Phone Adebayo Reddy MD Primary Care Provider [phone] Ed Alfredo DO Primary Care Provider [phone] Darrius Orr MD Primary Care Provider [phone] Darrius Orr MD Unavailable [phone] Source Comments In the event this information is protected by the Federal Confidentiality of Alcohol and Drug AbusePatient Records regulations: The Federal rules restrict any use of the information to criminally investigate or prosecute any alcohol or drug abuse patient.[facility] Encounter Details Date Type Department Care Team (Late st Contact Info) Description 02/17/2014 Patient Msg Medical Records [address] [place] [address] Provider, Ccf RE: Request an Appointment Social [...] on filedocumented in this encounter Care Teams Warehouse Helper Relationship Specialty Start Date End Date Adebayo Reddy MD [address] [place] [address] PCP - General Family Medicine 12/29/12 08/15/14 Ed Alfredo DO [address] [place] [address] PCP - General Family Medicine 08/16/14 08/31/19 Darrius Orr MD [address] [place] [address] PCP - General Internal Medicine 09/01/19 Darrius Orr MD [address] [place] [address] Referring Internal Medicine 11/16/24 documented as of this encounter
--- OUTSIDE RECORDS SUMMARY | 2024-12-28 20:54 | XMS_ITS | Encounter Summary ---
Author Organization [facility] Address [address] [place] [address] Care Team Providers Care Supervisor Road Administrator Name Role Phone Camila Rodriguez MD Primary Care Provider [phone] Adebayo Reddy MD Primary Care Provider [phone] Ed Alfredo DO Primary Care Provider [phone] Darrius Orr MD Primary Care Provider [phone] Darrius Orr MD Unavailable [phone] Source Comments In the event this information is protected by the Federal Confidentiality of Alcohol and Drug AbusePatient Records regulations: The Federal rules restrict any use of the information to criminally investigate or prosecute any alcohol or drug abuse patient.[facility] Encounter Details Date Type Department Care Team (Late st Contact Info) Description 01/15/2010 Patient Msg Medical Records [address] [place] [address] Provider, Ccf RE: Request an Appointment Social [...] filedocumented in this encounter Care Teams Supervisor Road Administrator Relationship Specialty Start Date End Date Camila Rodriguez MD [address] [address] PCP - General 10/13/09 12/28/12 Adebayo Reddy MD [address] [facility] [address] [place] [address] PCP - General Family Medicine 12/29/12 08/15/14 Ed Alfredo DO [address] [place] [address] PCP - General Family Medicine 08/16/14 08/31/19 Darrius Orr MD [address] [place] [address] PCP - General Internal Medicine 09/01/19 Darrius Orr MD [address] [place] [address] Referring Internal Medicine 11/16/24 documented as of this encounter
--- OUTSIDE RECORDS SUMMARY | 2024-12-28 20:54 | XMS_ITS | Encounter Summary ---
Author Organization [facility] Address [address] [place] [address] Care Team Providers Care Sueding Machine Tender Name Role Phone Adebayo Reddy MD Primary Care Provider [phone] Ed Alfredo DO Primary Care Provider [phone] Darrius Orr MD Primary Care Provider [phone] Darrius Orr MD Unavailable [phone] Source Comments In the event this information is protected by the Federal Confidentiality of Alcohol and Drug AbusePatient Records regulations: The Federal rules restrict any use of the information to criminally investigate or prosecute any alcohol or drug abuse patient.[facility] Encounter Details Date Type Department Care Team (Late st Contact Info) Description 02/28/2014 Patient Msg Medical Records [facility] [place] [address] Provider, Ccf RE: Appointment Cancellation Request Social [...] on filedocumented in this encounter Care Teams Sueding Machine Tender Relationship Specialty Start Date End Date Adebayo Reddy MD [address] [place] [address] PCP - General Family Medicine 12/29/12 08/15/14 Ed Alfredo DO [address] [place] [address] PCP - General Family Medicine 08/16/14 08/31/19 Darrius Orr MD [address] [place] [address] PCP - General Internal Medicine 09/01/19 Darrius Orr MD [address] [place] [address] Referring Internal Medicine 11/16/24 documented as of this encounter
--- OUTSIDE RECORDS SUMMARY | 2024-12-28 20:54 | XMS_ITS | Encounter Summary ---
Author Organization [facility] Address [address] [place] [address] Care Team Providers Care Temporary Help Agency Referral Clerk Name Role Phone Camila Rodriguez MD Primary Care Provider [phone] Adebayo Reddy MD Primary Care Provider [phone] Ed Alfredo DO Primary Care Provider [phone] Darrius Orr MD Primary Care Provider [phone] Darrius Orr MD Unavailable [phone] Source Comments In the event this information is protected by the Federal Confidentiality of Alcohol and Drug AbusePatient Records regulations: The Federal rules restrict any use of the information to criminally investigate or prosecute any alcohol or drug abuse patient.[facility] Encounter Details Date Type Department Care Team (Late st Contact Info) Description 11/20/2009 Patient Msg Medical Records [address] [place] [address] Provider, Ccf Appointment Cancellation Request Social History [...] on filedocumented in this encounter Care Teams Temporary Help Agency Referral Clerk Relationship Specialty Start Date End Date Camila Rodriguez MD [address] [facility] [place] [address] PCP - General 10/13/09 12/28/12 Adebayo Reddy MD [address] [facility] [address] [place] [address] PCP - General Family Medicine 12/29/12 08/15/14 Ed Alfredo DO [address] [facility] [address] [place] [address] PCP - General Family Medicine 08/16/14 08/31/19 Darrius Orr MD [address] [place] [address] PCP - General Internal Medicine 09/01/19 Darrius Orr MD [address] [place] [address] Referring Internal Medicine 11/16/24 documented as of this encounter
--- OUTSIDE RECORDS SUMMARY | 2024-12-28 20:54 | XMS_ITS | Clinical Summary ---
Author Organization [facility] Address [address] [place] [address] Care Team Providers Care Customer Service Trainer Name Role Phone Darrius Orr MD Unavailable [phone] Darrius Orr MD Primary Care Provider [phone] Aiden Linares DPM Unavailable [phone] Kai Gutierres DO Unavailable [phone] Allergies Active Allergy Reactions Criticality Noted Date Comments Duloxetine Hcl Low 08/12/2021 Other Reaction(s): intolerance Natalizumab Low 01/24/2015 Other Reaction(s): AOF Semaglutide Low 11/21/2020 Other Reaction(s): nausea and vomiting Other Reaction(s): Other: See Comments Chills, nightmares, diarrhea Medications Lancets Micro Thin 33G misc 1 Lancet by In Vitro route if needed. 020 Active Cannabinoids (medical cannabis) Medical Marijuana Active bimatoprost (Lumigan) 0.01 % ophthalmic solution Administer 1 drop into both eyes at bedtime Active ocrelizumab (Ocrevus) 300 MG/10ML solution Infuse 600 mg into a venous catheter every 6 (six) months to absorb continuously Active tadalafil (Cialis) 20 MG tabletIndications:Male erectile dysfunction, unspecified Take 1 tablet (20 mg) by mouth in the morning. 30 tablet 3 023 Active irbesartan (Avapro) 300 MG tabletIndications:Esse ntial hypertension (CMS/HCC) TAKE 1 TABLET BY MOUTH DAILY 30 tablet 6 023 Active amitriptyline (Elavil) 25 MG tabletIndications:Poly neuropathy associated with underlying disease (CMS/HCC) Take 1 tablet (25 mg) by mouth at bedtime 30 tablet 5 024 Active metoprolol succinate XL (Toprol-XL) 100 MG 24 hr tabletIndications:Esse ntial (primary) hypertension (CMS/HCC) TAKE 1 TABLET BY MOUTH EVERY DAY 90 tablet 3 024 Active diclofenac sodium (Voltaren) 1 % gel Apply 4 g topically in the morning and 4 g at noon and 4 g in the evening and 4 g before bedtime. Active ARIPiprazole (Abilify) 5 MG tabletIndications:Bipo lar 1 disorder, mixed (CMS/HCC) Take 1 tablet (5 mg) by mouth Daily 30 tablet 5 024 Active pregabalin (Lyrica) 300 MG capsuleIndications:Claudio yneuropathy associated with underlying disease (CMS/HCC) Take 1 capsule (300 mg) by mouth in the morning and 1 capsule (300 mg) before bedtime. 60 capsule 5 024 2024 Active insulin aspart (NovoLOG FLEXPEN) 100 UNIT/ML penIndications:Type 2 diabetes mellitus with stage 2 chronic kidney disease, with long-term current use of insulin ([facility]) Inject 60 Units under the skin See administration instructions Injection per sliding scale 10 mL 3 025 Active insulin degludec (Tresiba FlexTouch) 200 UNIT/ML injectionIndications:T ype 2 diabetes mellitus with stage 2 chronic kidney disease, with long-term current use of insulin ([facility]) Inject 100 Units under the skin at bedtime 36 mL 3 025 Active methocarbamol (Robaxin) 750 MG tabletIndications:Spas m of muscle of lower back Take 1-2 tablets (750-1,500 mg) by mouth 3 (three) times a day as needed for muscle spasms 120 tablet 3 025 Active cyclobenzaprine (Flexeril) 10 MG tabletIndications:Musc le spasm Take 1 tablet (10 mg) by mouth 2 (two) times a day as needed for muscle spasms for up to 10 days 20 tablet 025 Active ibuprofen 800 MG tabletIndications:Prim theodore osteoarthritis involving multiple joints Take 1 tablet (800 mg) by mouth 3 (three) times a day as needed for mild pain 60 tablet 1 025 Active ALPRAZolam (Xanax) 0.5 MG tabletIndications:Gene ralized anxiety disorder ([facility]) Take 1 tablet (0.5 mg) by mouth 2 (two) times a day as needed for anxiety 60 tablet 025 Active ergocalciferol (Vitamin D-2) 1.25 MG (78313 UT) capsuleIndications:Vit parham D deficiency Take 1 capsule (1.25 mg) by mouth 3 (three) times a week 36 capsule 3 025 Active rosuvastatin (Crestor) 20 MG tabletIndications:Mixe d hyperlipidemia ([facility]) Take 1 tablet (20 mg) by mouth at bedtime 90 tablet 3 025 2024 Active fluconazole (Diflucan) 100 MG tabletIndications:Edson al infection Take 1 tablet (100 mg) by mouth Daily 7 tablet 025 Active nystatin (Mycostatin) 634268 UNIT/GM powder Four times daily 025 Active hydroCHLOROthiazide (HYDRODiuril) 12.5 MG tablet Take 12.5 mg by mouth Daily 025 Active Rimegepant Sulfate (Nurtec) 75 MG tablet dispersibleIndications :History of migraine headaches Take 75 mg by mouth every other day 025 Active oxyCODONE-acetaminophe n (Percocet) 5-325 MG tabletIndications:Spin al stenosis in cervical region Take 1-2 tablets by mouth every 6 (six) hours if needed for severe pain 90 tablet 025 Active predniSONE (Deltasone) 10 MG tabletIndications:Spin al stenosis in cervical region Take 6 tablets (60 mg) by mouth Daily for 3 days, THEN 4 tablets (40 mg) Daily for 3 days, THEN 3 tablets (30 mg) Daily for 3 days, THEN 2 tablets (20 mg) Daily for 3 days, THEN 1 tablet (10 mg) Daily for 3 days, THEN 0.5 tablets (5 mg) Daily for 4 days. 50 tablet 025 2024 Active rosuvastatin (Crestor) 10 MG tabletIndications:Pure hypercholesterolemia (CMS/HCC) Take 1 tablet (10 mg) by mouth at bedtime 90 tablet 3 023 2024 Disconti nued(The rapy complete d) triamcinolone (Kenalog) 0.1 % creamIndications:Rash and nonspecific skin eruption Apply 1 application topically 2 (two) times a day as needed for rash Avoid face and groin. 30 g 1 024 2024 Disconti nued(Med list cleanup) ergocalciferol (Vitamin D-2) 1.25 MG (14134 UT) capsuleIndications:Vit parham D deficiency Take 1 capsule (1.25 mg) by mouth 2 (two) times a week 16 capsule 024 2024 Disconti nued(Dos e adjustme nt) oxyCODONE-acetaminophe n (Percocet) 5-325 MG tabletIndications:Spin al stenosis in cervical region Take 1-2 tablets by mouth every 6 (six) hours if needed for severe pain 56 tablet 025 2024 Disconti nued(Reo rder) oxyCODONE-acetaminophe n (Percocet) 5-325 MG tabletIndications:Spin al stenosis in cervical region Take 1-2 tablets by mouth every 6 (six) hours if needed for severe pain 56 tablet 025 2024 Disconti nued(Reo rder) oxyCODONE-acetaminophe n (Percocet) 5-325 MG tabletIndications:Spin al stenosis in cervical region Take 1-2 tablets by mouth every 6 (six) hours if needed for severe pain 90 tablet 025 2024 Disconti nued(Reo rder) Hospital, Clinic, or Other Facility Administered Medication Ordered Dose Route Frequency Start Date End Date Status ketorolac (Toradol) injection 60 mgIndications:Hist ory of migraine headaches 60 mg IM Once 11/29/2024 5 Discontinued ketorolac (Toradol) injection 60 mgIndications:Hist ory of migraine headaches 60 mg IM Once 11/29/2024 5 Ended ketorolac (Toradol) injection 60 mgIndications:Hist ory of migraine headaches 60 mg IM Once 11/29/2024 5 Ended bupivacaine PF (Marcaine) 0.5 % injection 1 mLIndications:Arth ritis of right knee,Knee instability, right,Loose body of right knee 1 mL IJ Once PRN Procedure 12/02/2024 5 Ended methylPREDNISolone acetate (DEPO-Medrol) injection 40 mgIndications:Arth ritis of right knee,Knee instability, right,Loose body of right knee 40 mg IX Once PRN Procedure 12/02/2024 5 Ended ketorolac (Toradol) injection 60 mgIndications:Hist ory of migraine headaches 60 mg IM Once 12/24/2024 5 Ended ketorolac (Toradol) injection 60 mgIndications:Temp oral pain 60 mg IM Once 12/28/2024 5 Ended Active Problems Problem Noted Date Diagnosed Date Mixed hyperlipidemia 09/18/2024 Stage 1 chronic kidney disease 07/04/2024 Type 2 diabetes mellitus wit h diabetic neuropathy, with long-term current use of insulin 05/24/2024 Diabetic polyneuropathy asso ciated with type 2 diabetes mellitus 03/22/2024 MS (multiple sclerosis) 03/22/2024 Chronic bilateral low back pain without sciatica 12/29/2023 Pure hypercholesterolemia 08/04/2023 Ataxia 03/12/2023 Assessment & Plan (12/13/2023 10:36 PM EDT): *03/12/2023 Yodit Jolly The patient is ataxic on clinical examination today. He reports sudden onset dizziness and lightheadedness starting on 03/06/23 which are severe. He has significant difficulty completing many aspects of the exam today due to these symptoms. This warrants urgent ED evaluation to rule out active MS relapse, intracranial lesion, metabolic causes, etc. PLAN: - The patient was advised to proceed directly to the emergency department from today's appointment. He verbalizes understanding. 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 He does think symptoms started around the time he was restarted on Abilify and I think his symptoms could be side effects related to this. Ferritin was normal. He is on nighttime Lyrica as well which could be helpful. Of note, recently stopped a lot of his medications including Abilify and Lyrica. We will clinically monitor symptoms. *09/30/2022 Augustina Grace Previously was complaining of tremor and restless legs, seemingly chronic. He does think symptoms started around the time he was restarted on Abilify and I think his symptoms could be side effects related to this. Ferritin was normal. He is on nighttime Lyrica as well which could be helpful. Of note, recently stopped a lot of his medications including Abilify and Lyrica. We will clinically monitor symptoms. Primary osteoarthritis involving multiple joints 12/10/2022 Vitamin B12 deficiency 12/10/2022 Vitamin D deficiency 12/10/2022 Spinal stenosis in cervical region 12/10/2022 Lymphedema 12/10/2022 Bipolar 1 disorder, mixed 06/05/2022 Assessment & Plan (12/13/2023 10:34 PM EDT): *03/12/2023 Yodit Jolly Bipolar, depression/anxiety predominate. Previously on Abilify but he abruptly stopped this. He admits to depressed mood and increased anxiety. He denies any suicidal or homicidal ideations. PLAN: - I did provide him with information regarding the hotline should he develop such thoughts - I encouraged him to reach out to PCP/psych to further discuss this. *01/14/2023 Tayler Solorzano Bipolar, depression/anxiety predominate. Previously on Abilify but he abruptly stopped this. He admits to depressed mood and increased anxiety. He denies any suicidal or homicidal ideations and states I do not want to PLAN: - I did provide him with information regarding the hotline should he develop such thoughts - I encouraged him to reach out to PCP/psych to further discuss this. *09/30/2022 Augustina Grace Bipolar, depression/anxiety predominate. Was on Abilify but recently stopped a lot of his mediations. I encouraged him to follow-up soon with PCP/psych to discuss the fact that he stopped his medications. Cervicogenic headache 04/12/2022 Assessment & Plan (12/13/2023 10:21 PM EDT): *03/12/2023 Possible cervicogenic headaches and occipital neuralgia. Seemingly stable. History of colonic polyps 08/12/2021 Lipodermatosclerosis 11/17/2020 Primary open angle glaucoma (POAG) of both eyes, mild stage 06/05/2020 Relapsing remitting multiple sclerosis 0 Assessment & Plan (12/13/2023 10:17 PM EDT): *03/12/2023 Yodit Jolly Relapsing remitting multiple sclerosis. Previously on Tecfidera. MRI brain on 03/13/22 revealed interval progression so the patient was transitioned to Ocrevus which he has been tolerating well. - PLAN: - Continue Ocrevus infusions as scheduled (due June 2023) - The risk of opportunistic infections in the setting of immunosuppressive treatment was again discussed at length. Patient expressed understanding. - Plan to repeat MRI brain at the next visit if one is not completed in the ED Central vestibular vertigo 12/24/2018 Peripheral venous insufficiency 12/11/2018 Chronic neck pain 02/23/2014 Hyperparathyroidism, unspecified 09/02/2008 Overview (03/14/2023): in the setting of Vitamin D deficiency Psoriatic arthritis 02/11/2006 Other psoriasis 01/14/2006 Overview (03/14/2023): POSSIBLE Resolved Problems Problem Noted Date Diagnosed Date Resolved Date Lung nodule 03/14/2023 04/28/2023 Onychomycosis 01/21/2023 10/29/2023 Adrenal adenoma, left 12/30/20222022 Old myocardial infarction 12/10/2022 Nuclear senile cataract 01/03/202108/2023 Migraine 02/23/2014 03/14/2023 Cervical spondylosis without myelopathy 02/19/2013 10/29/2023 Varicose veins of other specified sites 08/22/2009 10/29/2023 Diabetes mellitus with neuro logical manifestations, controlled 09/28/2008 10/29/2023 Encounters Date Type Department Care Team Description 12/28/2024 10:45 AM EDT Office Visit [facility] [address] [place] [address] Darrius Orr MD History of migraine headaches (Primary Dx); Essential hypertension (CMS/HCC); Type 2 diabetes mellitus with diabetic neuropathy, with long-term current use of insulin (CMS/HCC); Temporal pain 12/28/2024 Telephone [facility] [address] [place] [address] Yair Rosa PA Referral 12/28/2024 Travel 12/27/2024 Orders Only [facility] [address] [place] [address] Darrius Orr MD Spinal stenosis in cervical region 12/24/2024 10:45 AM EDT Office Visit [facility] [address] [place] [address] Adela Gross, PUBLIC POLICY COORDINATOR Essential hypertension (CMS/HCC) (Primary Dx); Type 2 diabetes mellitus with diabetic neuropathy, with long-term current use of insulin (CMS/HCC); History of migraine headaches 12/24/2024 Telephone [facility] [address] [place] [address] Darrius Orr MD 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) 12/24/2024 Orders Only [facility] [address] [place] [address] Unallocated, Nomshantell Graham MD 12/24/2024 Travel 12/24/2024 Telephone [facility] [address] [place] [address] Noa Hansen LPN 12/15/2024 Telephone [facility] [address] [place] [address] LPN asking for a referral to 12/10/2024 Telephone [facility] [address] [place] [address] Noa Hansen LPN requesting medication 12/10/2024 Orders Only [facility] [address] [place] [address] Unallocated, Pat Graham MD 12/09/2024 Orders Only [facility] [address] [place] [address] Darrius Orr MD 12/09/2024 Telephone [facility] [address] [place] [address] Darci Montgomery [place] Cancelled Infusion 12/09/[address] [address] Adonay Valentine MA 12/08/2024 11:00 AM EDT Office Visit [facility] [address] [place] [address] Darrius Orr MD Rash (Primary Dx); Candidiasis, intertrigo; Skin breakdown; Skin excoriation; Spinal stenosis in cervical region 12/08/2024 Telephone [facility] [address] [place] [address] Eve Escalante, MOT Appt w/Dr. Sweet-Ref. from [facility] Rosa 12/08/2024 Travel 12/07/2024 Telephone [facility] [address] [place] [address] Noa Hansen LPN fungal infection 12/06/2024 Telephone [facility] [address] [place] [address] Noa Hansen LPN fungal infection 12/02/2024 10:15 AM EDT Office Visit [facility] [address] [place] [address] Yair Rosa PA Acute pain of right knee (Primary Dx); Arthritis of right knee; Knee instability, right; Loose body of right knee 12/02/2024 Bamboo flowsheet [facility] [address] [place] [address] Yair Rosa PA 12/02/2024 Travel 12/01/2024 Results Follow-Up [facility] [address] [place] [address] Darrius Orr MD Vitamin D deficiency; Hyponatremia; Hyperkalemia; Mixed hyperlipidemia (CMS/HCC) 11/29/2024 1:00 PM EDT Office Visit [facility] [address] [place] [address] Darrius Orr MD Type 2 diabetes mellitus with diabetic neuropathy, with long-term current use of insulin (CMS/HCC) (Primary Dx); Stage 1 chronic kidney disease; Essential hypertension (CMS/HCC); Psoriatic arthritis (CMS/HCC); MS (multiple sclerosis) (CMS/HCC); Generalized anxiety disorder (CMS/HCC); Primary osteoarthritis involving multiple joints; Vitamin D deficiency; Polyneuropathy associated with underlying disease (CMS/HCC); Cervicogenic headache; Elevated alkaline phosphatase level; Prostate cancer screening; Vitamin B12 deficiency; Mixed hyperlipidemia (CMS/HCC); Hyperparathyroidism, unspecified (CMS/HCC); Spinal stenosis in cervical region; Flushing; History of migraine headaches 11/29/2024 External Result Encounter [facility] Unsolicited Srikanth Horvath NP 11/29/2024 Travel 11/24/2024 Telephone [facility] [address] [place] [address] Darrius Orr MD 11/21/2024 Results Follow-Up [facility] [address] [place] [address] Darrius Orr MD 11/18/2024 Orders Only [facility] [address] [place] [address] Darrius Orr MD Spinal stenosis in cervical region 11/15/2024 Telephone [facility] [address] [place] [address] LPN many ER visits wanting dilaudid for SALVADOR 11/12/2024 Telephone [facility] [address] [place] [address] Darci Montgomery MA 11/08/2024 Refill [facility] [address] [place] [address] Noa Hansen LPN Primary osteoarthritis involving multiple joints 11/06/2024 Telephone [facility] [address] [place] [address] Delio Wiley DO 11/05/2024 Orders Only [facility] [address] [place] [address] Arpan Ross MD 11/05/2024 Telephone [facility] [address] [place] [address] Yair Rosa, PA fell again 11/05/2024 Telephone [facility] [address] [place] [address] [facility] [place] Med Refill 11/04/2024 Telephone [facility] [address] [place] [address] Darci Montgomery MO 11/04/2024 External Result Encounter [facility] Unsolicited Darrius Orr MD 11/03/2024 Telephone [facility] [address] [place] [address] Darci Montgomery MO 10/29/2024 Telephone [facility] [address] [place] [address] Darrius Orr MD remind the patient to R/S bone scan 10/28/2024 Telephone [facility] [address] [place] [address] LPN fell last night hurting both knees and right arm 10/18/2024 11:55 AM EDT Office Visit [facility] [address] [place] [address] Caitlin Hill, PUBLIC POLICY COORDINATOR Other migraine without status migrainosus, not intractable (CMS/HCC) (Primary Dx) 10/18/2024 Telephone [facility] [address] [place] [address] [facility] Referral 10/18/2024 Travel 10/12/2024 11:00 AM EDT Office Visit [facility] [address] [place] [address] Darrius Orr MD Psoriatic arthritis (CMS/HCC) (Primary Dx); Type 2 diabetes mellitus with diabetic neuropathy, with long-term current use of insulin (CMS/HCC); Generalized anxiety disorder (CMS/HCC) ; Spinal stenosis in cervical region; Polyneuropathy associated with underlying disease (CMS/HCC); Elevated alkaline phosphatase level 10/12/2024 Travel 10/09/2024 Telephone [facility] [address] [place] [address] Darrius Orr MD Need appointment for pain from Last 3 Months Immunizations Immunization Administration Dates Next Due Hep B, Adolescent or Pediatric 11/26/2017 Hep B, adult 11/26/2017 PPD Test 11/18/2008 Pneumococcal Conjugate PCV 20 12/05/2021 Pneumococcal Polysaccharide PPSV23 03/19/2006 Family History Medical History Relation Name Comments Alcohol abuse Father braulio ellis Cancer Father braulio ellis Diabetes Father braulio ellis Heart disease Father braulio ellis Hypertension Father braulio ellis Liver disease Father braulio ellis Cancer Maternal Grandmother kae caceres COPD Mother anastacio gallardo Cancer Mother anastacio gallardo Relation Name Status Comments Father braulio ellis Maternal Grandmother kae caceres Mother anastacio gallardo Alive Social History Tobacco Use Types Packs/Day Years [...] Pulse 71 12/28/2024 11:06 AM EDT Temperature 33.6 C (92.4 F) 10/18/2024 12:01 PM EDT Respiratory Rate 20 10/18/2024 12:01 PM EDT Oxygen Saturation 98% 12/28/2024 11:06 AM EDT Inhaled Oxygen Concentration - - Weight 161 kg (356 lb) 12/28/2024 11:06 AM EDT Height 175.3 cm (5' 9 ) 12/28/2024 11:06 AM EDT Body Mass Index 52.57 12/28/2024 11:06 AM EDT Plan of Treatment Upcoming Encounters Date Type Department Care Team (Late st Contact Info) Description 12/30/2024 9:45 AM EDT Office Visit [facility] [address] [place] [address] 01/04/2025 1:00 PM EDT Office Visit [facility] [address] [place] [address] Kai Gutierres, [address] [place] [address] 01/05/2025 3:45 PM EDT Office Visit [facility] [address] [place] [address] Susie Mary, DPM [address] [place] [address] 02/28/2025 1:30 PM EDT Office Visit [facility] [address] [place] [address] Health Maintenance Due Date Last Done Comments CT Colonography 1971 FIT-DNA 1971 FIT 1971 FOBT 1971 Sigmoidoscopy 1971 Diabetes: Urine Protein Screening 03/08/2023 03/08/2022, 04/10/2021, 04/17/2020, Additional history exists Medicare Annual Wellness (AWV) 02/24/2025 02/25/2024 Diabetes: Hemoglobin A1C 02/28/202511/29/ 025, 08/31/2024, 05/21/2024, Additional history exists Influenza Vaccine (Season Ended) 2025 Diabetes: Retinopathy Screening 04/29/2026 04/29/2024, 02/12/2022, 06/05/2020, Additional history exists Colonoscopy 01/27/2029 01/27/2019 Colorectal Cancer Screening 01/27/2029 Procedures Procedure Name Priority Date/Time Associated Diagnosis Comments POCT GLUCOSE Routine 12/23/2024 11:58 AM EDT CBC WITH AUTO DIFFERENTIAL Routine 12/02/2024 11:11 AM EDT B-TYPE NATRIURETIC PEPTIDE Routine 12/02/2024 11:11 AM EDT SUPERFICIAL WOUND CULTURE ([facility]) Routine 12/02/2024 11:11 AM EDT CAST / SPLINT / FX Routine 12/02/2024 10 :47 AM EDT Knee instability, right Loose body of right knee [place] ARTHROCENTESIS ASPIR&/INJ MAJOR JT/BURSA W/O US Routine 12/02/2024 10:45 AM EDT Arthritis of right knee Knee instability, right Loose body of right knee ALKALINE PHOSPHATASE Routine 11/29/2024 2:32 PM EDT FOLATE, SERUM Routine 11/29/2024 2:27 PM EDT Flushing CBC WITH AUTO DIFFERENTIAL Routine 11/29/2024 2:27 PM EDT Flushing VITAMIN B12 Routine 11/29/2024 2:27 PM EDT Flushing T4, FREE Routine 11/29/2024 2:27 PM EDT Flushing TSH Routine 11/29/2024 2:27 PM EDT Flushing VITAMIN D 25 HYDROXY TOTAL Routine 11/29/2024 2:27 PM EDT Hyperparathyroidism, unspecified (CMS/HCC) GGT Routine 11/29/2024 2:27 PM EDT Elevated alkaline phosphatase level COMPREHENSIVE METABOLIC PANEL Routine 11/29/2024 2:27 PM EDT Type 2 diabetes mellitus with diabetic neuropathy, with long-term current use of insulin ([facility]) Stage 1 chronic kidney disease HEMOGLOBIN A1C WITH EAG Routine 11/29/2024 2:27 PM EDT Type 2 diabetes mellitus with diabetic neuropathy, with long-term current use of insulin ([facility]) LIPID PANEL Routine 11/29/2024 2:27 PM EDT Mixed hyperlipidemia (CMS/HCC) PHOSPHATE ( PHOSPHORUS) Routine 11/29/2024 2:27 PM EDT Elevated alkaline phosphatase level PTH, INTACT WITHOUT CALCIUM Routine 11/29/2024 2:27 PM EDT Elevated alkaline phosphatase level PSA, TOTAL Routine 11/29/2024 2:27 PM EDT Prostate cancer screening NM BONE WHOLE BODY 11/04/2024 4: 06 PM EDT XR KNEE 4+ VIEWS RIGHT Routine 10:49 AM EDT DIABETIC RETINOPATHY SCREENING - OU - BOTH EYES Routine 04/29/2024 3:46 PM EDT MICROALBUMIN / CREATININE URINE RATIO Routine 04/10/2021 COLONOSCOPY Routine 01/27/2019 12:00 PM EDT from Last 3 Months or Most Recently Relevant to Health Maintenance Results * POCT glucose manually resulted (12/23/2024 11:58 AM EDT) Blood Capillary blood specimen / Unknown us Noms Provider Unallocated MD POINT OF CARE TEST ENTER/EDIT ORDERABLES Final Result * SUPERFICIAL WOUND CULTURE ([facility]) (12/02/2024 11:11 AM EDT) Topography unknown / Unknown us Noms Provider Unallocated MD LAB MICROBIOLOGY - GENERAL ORDERABLES Final Result * CBC auto differential (12/02/2024 11:11 AM EDT) Only the most recent of2 resultswithin the time period is included. Blood Venous blood specimen / Unknown us Noms Provider Unallocated MD LAB BLOOD ORDERABLE S Final Result * B-type natriuretic peptide (12/02/2024 11:11 AM EDT) Blood Venous blood specimen / Unknown us Noms Provider Unallocated MD LAB BLOOD ORDERABLE S Final Result * Cast / Splint / Fx (12/02/2024 10:47 AM EDT) Narrative Yair Rosa PA - 12/02/2024 10:47 AM EDT RICKY Palomo 12/02/2024 10:49 AM Cast / Splint / Fx Date/Time: 12/02/2024 10:47 AM Performed by: RICKY Palomo Authorized by: RICKY Palomo Consent given by: patient and parent Timeout: Immediately prior to procedure a time out was called to verify the correct patient, procedure, equipment, administrative support coordinator and site/side marked as required Injury Location details: right knee Pre-procedure assessment neurovascularly intact Range of motion: normal Procedure Manipulation performed? no manipulation performed Immobilization: splint Splint type: hinged knee brace. Post-procedure assessment neurovascularly intact Range of motion: improved Patient tolerance: patient tolerated the procedure well with no immediate complications Comments A right L1821 off the shelf, prefabricated, knee orthosis with condylar pads and joints with or without patellar control was dispensed, fitted, and adjusted at this visit. The function of the device is to provide support, decrease edema, control motion at the knee joint. It will redistribute pressure and allow more comfortable weight-bearing and better support. It is for increased stability of the knee joint. The goals of the device are to decrease pain decrease inflammation, increase stability and to allow the patient to ambulate independently. The device is medically necessary for the condition, symptoms and diagnosis. It was dispensed and fitted for the patient, and it fit properly. The patient was educated as to proper use and care, and this was reviewed in detail. Written instructions and warranty information were given with the device. A receipt for the device is on file. The current supplier standards were given to the patient. [employer] patient agreement was completed at time of dispensement.. The patient stated that the device was comfortable when fitted in the office and the patient was able to ambulate without distress with this knee orthosis. At the time of dispensement, the device was suitable and not substandard. us Yair GARCÍA IN CLINIC/BEDSIDE ORDERABLES Final Result * [place] ARTHROCENTESIS ASPIR&/INJ MAJOR JT/BURSA W/O US (12/02/2024 10:45 AM EDT) Narrative Yair Rosa PA - 12/02/2024 10:45 AM EDT RICKY Palomo 12/02/2024 10:49 AM L Inj/Asp: R knee on 12/02/2024 10:45 AM Indications: pain Details: 22 G needle, anterolateral approach Medications: 40 mg methylPREDNISolone acetate 40 MG/ML; 1 mL bupivacaine PF 0.5 % Outcome: tolerated well, no immediate complications E UTILIZING ASEPTIC TECHNIQUE PT GIVEN INJECTION IN RIGHT KNEE, NEUROVASC INTACT S/P INJ, TOLERATED WELL Procedure, treatment alternatives, risks and benefits explained, specific risks discussed. Consent was given by the patient. us Yair GARCÍA IN CLINIC/BEDSIDE ORDERABLES Final Result * (ABNORMAL) Alkaline phosphatase (11/29/2024 2:32 PM EDT) ALKALINE PHOSPHATASE (LC) 280(H) 44 - 121 12/01/2024 9:36 AM EDT [facility] LIVER FRACTION 64 13 - 88 % 12/01/2024 9:36 AM EDT [facility] BONE FRACTION 35 12 - 68 % 12/01/2024 9:36 AM EDT [facility] INTESTINAL FRACTION 1 0 - 18 % 12/01/2024 9:36 AM EDT [facility] Comment: Performed at: - Lab[address] [id number] Beef Lugger: Yury Hernandez PhD, Phone: [phone] Other Topography unknown / Unknown 11/29/2024 2:32 PM EDT 11/29/2024 2:32 PM EDT Zenobia CHASE - 12/01/2024 9:36 AM EDT FASTING: Y us Srikanth Horvath PUBLIC POLICY COORDINATOR LAB BLOOD ORDERABLES Final R esult [facility] [address] [place] [address], * (ABNORMAL) Hemoglobin a1c with eag (11/29/2024 2:27 PM EDT) HEMOGLOBIN A1C 12.1(H) 4.3 - 5.6 % 11/30/2024 9:33 AM EDT [facility] Comment: Increased risk for diabetes: 5.7 - 6.4 diabetes: >6.4 glycemic control for adults with diabetes: <7.0 ESTIMATED AVERAGE GLUCOSE 301 mg/dL 11/30/2024 9:33 AM EDT [facility] Blood (Blood) 11/29/2024 2:2 7 PM EDT 11/29/2024 2:27 PM EDT Srikanth Horvath PUBLIC POLICY COORDINATOR LAB BLOOD ORDERABLES Final R esult Performing Organization Address [facility] Co de Phone Number [facility] [address] [place] [address], [facility] [address] [place] [address] * (ABNORMAL) Vitamin D 25 hydroxy Total (11/29/2024 2:27 PM EDT) VITAMIN D 25 HYDROXY TOTAL 22.8(L) 30 - 100 ng/mL 11/29/2024 4:09 PM EDT [facility] Comment: VITAMIN D STATUS 25(OH)VITAMIN D RANGE (ng/mL) Deficient <20 Insufficient 20 to <30 Sufficient 30 to 100 Reference: Allyson MF,Golden NC, Rosibel SALVADOR, et al. Evaluation,treatment, and prevention of vitamin D deficiency; an Endocrine Society clinical practice guideline. JCEM. 2010; 96(7):1911-30. Other Topography unknown / Unknown 11/29/2024 2:27 PM EDT 11/29/2024 2:27 PM EDT Srikanth Horvath PUBLIC POLICY COORDINATOR LAB BLOOD ORDERABLES Final R esult Performing Organization Address City/[facility] Co de Phone Number [facility] [address] [place] [address], [facility] [address] [place] [address] * TSH (11/29/2024 2:27 PM EDT) THYROID STIMULATING HORMONE 1.05 0.45 - 5.33 u[iU]/mL 11/29/2024 3:53 PM EDT [facility] Other Topography unknown / Unknown 11/29/2024 2:27 PM EDT 11/29/2024 2:27 PM EDT Srikanth Horvath PUBLIC POLICY COORDINATOR LAB BLOOD ORDERABLES Final R esult Performing Organization Address City/[facility]/ZIP Co de Phone Number [address] [address], [facility] [address] [place] [address] * (ABNORMAL) T4, free (11/29/2024 2:27 PM EDT) FREE T4 (FREE THYROXINE) 1.33(H) 0.61 - 1.12 ng/dL 11/29/2024 3:57 PM EDT [facility] Other Topography unknown / Unknown 11/29/2024 2:27 PM EDT 11/29/2024 2:27 PM EDT Srikanth Horvath PUBLIC POLICY COORDINATOR LAB BLOOD ORDERABLES Final R esult Performing Organization Address City/[facility]/ZIP Co de Phone Number [address] [address], [facility] [address] [place] [phone] * PSA (11/29/2024 2:27 PM EDT) PSA SCREEN (YEARLY ONLY) 0.230 0.000 - 4.000 ng/mL 11/29/2024 3:47 PM EDT [facility] Comment: Serial tumor marker results determined by assays using different manufacturers or methods may not be comparable. [facility] Laboratory septic tank setter and method: SHERPANDIPITY DXI, CHEMILUMINESCENT IMMUNOASSAY. Other Topography unknown / Unknown 11/29/2024 2:27 PM EDT 11/29/2024 2:27 PM EDT Narrative [facility] - 11/29/2024 3:47 PM EDT Is patient <50 yrs? Medicare does not pay <50.: Y What is the date of the last PSA Screen?: NA OR...The date Patient is eligible for PSA Screen?: NA Is Medicare the insurance?: NO Did you verify eligibility (Dx Time) check TestViewGp: YES TO ALL Srikanth Horvath PUBLIC POLICY COORDINATOR LAB BLOOD ORDERABLES Final R esult Performing Organization Address City/[facility]/ZIP Co de Phone Number [address] [address], [facility] [address] [place] [address] * Phosphorus (11/29/2024 2:27 PM EDT) PHOSPHORUS 2.7 2.5 - 4.5 mg/dL 11/29/2024 3:38 PM EDT [facility] Other Topography unknown / Unknown 11/29/2024 2:27 PM EDT 11/29/2024 2:27 PM EDT Srikanth Horvath PUBLIC POLICY COORDINATOR LAB BLOOD ORDERABLES Final R esult Performing Organization Address [facility] Co de Phone Number [address] [address], [facility] [address] [place] [address] * (ABNORMAL) PTH, intact (11/29/2024 2:27 PM EDT) PARATHYROID HORMONE INTACT 154.2(H) 12 - 88 pg/mL 11/29/2024 3:55 PM EDT [facility] Other Topography unknown / Unknown 11/29/2024 2:27 PM EDT 11/29/2024 2:27 PM EDT Srikanth Horvath PUBLIC POLICY COORDINATOR LAB BLOOD ORDERABLES Final R esult Performing Organization Address City/[facility] Co de Phone Number [address] [address], [facility] [address] [place] [address] * (ABNORMAL) Gamma GT (11/29/2024 2:27 PM EDT) GAMMA GLUTAMYL TRANSPEPTIDASE 182(H) 9 - 64 U/L 11/29/2024 3:38 PM EDT [facility] Other Topography unknown / Unknown 11/29/2024 2:27 PM EDT 11/29/2024 2:27 PM EDT us Srikanth Horvath PUBLIC POLICY COORDINATOR LAB BLOOD ORDERABLES Final R esult Performing Organization Address City/[facility]/ZIP Co de Phone Number [address] [place] [address], [facility] [address] [place] [address] * Folate (11/29/2024 2:27 PM EDT) FOLATE 28.0 >5.9 ng/mL 11/29/2024 4:49 PM EDT [facility] Comment: Folate reference range: >5.9 ng/ml The WHO technical consultation on folate and vitamin b12 deficiencies has determined that folate concentrations less than 4 ng/ml are considered deficient. Other Topography unknown / Unknown 11/29/2024 2:27 PM EDT 11/29/2024 2:27 PM EDT us Srikanth Horvath PUBLIC POLICY COORDINATOR LAB BLOOD ORDERABLES Final R esult Performing Organization Address City/[facility]/ZIP Co de Phone Number [address] [place] [address], [facility] [address] [place] [address] * Vitamin B12 (11/29/2024 2:27 PM EDT) VITAMIN B12 327 180 - 914 pg/mL 11/29/2024 4:05 PM EDT [facility] Other Topography unknown / Unknown 11/29/2024 2:27 PM EDT 11/29/2024 2:27 PM EDT us Srikanth Horvath PUBLIC POLICY COORDINATOR LAB BLOOD ORDERABLES Final R esult [facility] [address] [place] [address], [facility] [address] [place] [address] * (ABNORMAL) Lipid panel (11/29/2024 2:27 PM EDT) CHOLESTEROL 256(H) 140 - 200 mg/dL 11/29/2024 3:38 PM EDT [facility] Comment: Chol less than 200 mg/dl low risk Chol 201-239 mg/dl borderline risk Chol 240 mg/dl and greater high risk HDL CHOLESTEROL 57 23 - 92 mg/dL 11/29/2024 3:38 PM EDT [facility] Comment: HDL CHOL ATP-III CLASSIFICATION Cardiovascular Risk HDL > or equal to 60 mg/dL LOW HDL < 40 mg/dL HIGH TRIGLYCERIDE W/REFLEX 137 0 - 149 mg/dL 11/29/2024 3:38 PM EDT [facility] Comment: TRIG ATP III CLASSIFICATION TRIG less than 150 mg/dL Normal TRIG 150-199 mg/dL Borderline high TRIG 200-500 mg/dL High TRIG greater than 500 mg/dL Very high Standard traceable to the Center for Disease Conrtrol and Prevention (CDC) test method. LDL CHOLESTEROL,CALCULA SAVANA 172(H) 0 - 100 mg/dL 11/29/2024 3:38 PM EDT [facility] Comment: LDL ATP III CLASSIFICATION LDL less than 100 mg/dL Optimal LDL 100-129 mg/dL Near or above optimal LDL 130-159 mg/dL Borderline high LDL 160-189 mg/dL High LDL greater than 189 mg/dL Very high VLDL CHOLESTEROL 27 mg/dL 11/30/19 3:38 PM EDT [facility] CHOL/HDL RATIO 4.5 <5.0 11/29/2024 3:38 PM EDT [facility] Other Topography unknown / Unknown 11/29/2024 2:27 PM EDT 11/29/2024 2:27 PM EDT us Srikanth Horvath PUBLIC POLICY COORDINATOR LAB BLOOD ORDERABLES Final R esult [facility] [address] [place] [address], [facility] [address] [place] [address] * (ABNORMAL) Comprehensive metabolic panel (11/29/2024 2:27 PM EDT) Glucose 434(H) 70 - 100 mg/dL 11/29/2024 3:38 PM EDT [facility] Comment: Random Glucose Reference Range is dependent on time and content of last meal. Glucose of more than 200 mg/dL in a nonstressed, ambulatory subject supports the diagnosis of Diabetes Mellitus. ADA recommended reference range BUN 20 7 - 25 mg/dL 11/29/2024 3:38 PM EDT [facility] CREATININE 1.15 0.70 - 1.30 mg/dL 11/29/2024 3:38 PM EDT [facility] ESTIMATED GFR >60.0 mL/Min 11/29/2024 3:38 PM T [facility] Sodium 130(L) 136 - 145 mmol/L 11/29/2024 3:38 PM [facility] Potassium, Bld 5.6(H) 3.5 - 5.1 mmol/L 11/29/2024 3:38 PM [facility] Chloride 97(L) 98 - 107 mmol/L 11/29/2024 3:38 PM EDT [facility] Carbon Dioxide 22.1 21.0 - 31.0 mmol/L 11/29/2024 3:38 PM T [facility] Anion Gap 16.5(H) 6.0 - 15.0 meq/L 11/29/2024 3:38 PM T [facility] Calcium 9.5 8.6 - 10.3 mg/dL 11/29/2024 3:38 PM [facility] TOTAL PROTEIN 7.5 6.4 - 8.9 g/dL 11/29/2024 3:38 PM EDT [facility] ALBUMIN LEVEL 4.0 3.5 - 5.7 g/dL 11/29/2024 3:38 PM EDT [facility] GLOBULIN 3.5 g/dL 11/29/2024 3:38 PM [facility] ALBUMIN/GLOBULIN RATIO 1.1 11/29/2024 3:38 PM [facility] BILIRUBIN,TOTAL 1.0 0.3 - 1.0 mg/dL 11/29/2024 3:38 PM EDT [facility] ASPARTATE AMINO TRANSFERASE 18 13 - 39 U/L 11/29/2024 3:38 PM EDT [facility] ALANINE AMINOTRANSFERASE 29 7 - 52 U/L 11/29/2024 3:38 PM EDT [facility] ALKALINE PHOSPHATASE 216(H) 34 - 104 U/L 11/29/2024 3:38 PM EDT [facility] Other Topography unknown / Unknown 11/29/2024 2:27 PM EDT 11/29/2024 2:27 PM EDT us Srikanth Horvath PUBLIC POLICY COORDINATOR LAB BLOOD [place]AB[place] [address], [place] [address] * NM bone whole body (11/04/2024 4:06 PM EDT) Anatomical Region Laterality Modality Nuclear Medicine 11/04/2024 4:0 6 PM EDT Impressions 11/04/2024 4:11 PM EDT Similar degenerative uptake.. No acute bony findings. Impression dictated by: Delio Nevarez M.D.11/04/2024 4:08 PM Dictation Location: [facility]20 Transcribed By: [facility] 11/04/24 1608 Dictated By: Delio Nevarez DO 11/04/24 1606 Signed By: <Electronically signed by Delio Nevarez DO in OV> 11/04/24 1608 Narrative 11/04/2024 4:11 PM EDT [facility] [place] [address] [place] [address] Nuclear Medicine Report Signed Patient: Alex Ellis MR#: [id number] 73 : 1970 Acct:[id number] Age/Sex: 54 / M ADM Date: 11/04/24 Loc: NM Room: Type: [facility] Attending Dr: Darrius Orr MD Copies to: [...] scan whole body Procedure Note Radiology, Radiologist, - 11/04/2024 [facility] [place] [address] [place] [address] Nuclear Medicine Report Signed Patient: Alex Ellis JMR#: [id number] 73 : 1970Acct:[id number] Age/Sex: 54 / MADM Date: 11/04/24 Loc: [place] Room:Type: [facility] Attending Dr: Darrius Orr MD Copies to: [...] Delio Nevarez M.D.11/04/2024 4:08 PM Dictation Location: [place] [address] Transcribed By: [facility] 11/04/24 1608 Dictated By: Delio Nevarez DO 11/04/24 1606 Signed By: <Electronically signed by Delio Nevarez, DO in OV> 11/04/24 1608 Darrius Orr MD IMG NM PROCEDURES Final Result * XR knee 4+ views right (11/04/2024 10:49 AM EDT) Anatomical Region Laterality Modality Lower Extremities, Knee Right Radiogra phic Imaging Arpan Ross MD IMG XR PROCEDURES Final Result * Diabetic Retinopathy Screening - OU - Both Eyes (04/29/2024 3:46 PM EDT) Anatomical Region Laterality Modality Head Other Darrius Orr MD OPHTH PHOTOGRAPHY Final Result * Microalbumin / creatinine urine ratio (04/10/2021) UCREA 131 39 - 259 [facility] MALB 13.6 [facility] Comment:mALB reference range not established. MICROALB/CREAT RATIO 103.8 [facility] 04/10/2021 Darrius Orr MD LAB URINE ORDERABLES Final Resu lt [facility] * Colonoscopy (01/27/2019 12:00 PM EDT) Anatomical Region Laterality Modality Endoscopy 01/27/2019 12:0 0 PM EDT Narrative 01/27/2019 12:00 PM EDT PERFORMED AT [facility] LOCATION:[id number] polypectomy- repeat 5 yrs Procedure Note CONVERSION, GENERIC - 12/18/[address] [facility] LOCATION:[id number] polypectomy- repeat 5 yrs Darrius Orr MD ENDOSCOPY PROCEDURE ORDERABLES Final Result from Last 3 Months or Most Recently Relevant to Health Maintenance Insurance [facility] MEDICARE ADVANTAGE MEDICAID [place] Care Teams Customer Service Trainer Relationship Specialty Start Date End Date Darrius Orr MD [address] [facility] [address] [place] [address] PCP - [employer] 08/04/19 Darrius Orr MD [address] [place] [id number] PCP - General Internal Medicine 12/31/22 Aiden Linares DPM [address] [facility] [address] [place] [address] Referring Physician Podiatry 10/30/23 Kai Gutierres DO [address] [facility] [address] [place] [address] Referring Physician Neurology 02/24/24
--- OUTSIDE RECORDS SUMMARY | 2024-12-28 20:54 | XMS_ITS | Encounter Summary ---
Author Organization [facility] Address [address] [place] [address] Care Team Providers Care Binder Selector Name Role Phone Camila Rodriguez MD Primary Care Provider [phone] Adebayo Reddy MD Primary Care Provider [phone] Ed Alfredo DO Primary Care Provider [phone] Darrius Orr MD Primary Care Provider [phone] Darrius Orr MD Unavailable [phone] Source Comments In the event this information is protected by the Federal Confidentiality of Alcohol and Drug AbusePatient Records regulations: The Federal rules restrict any use of the information to criminally investigate or prosecute any alcohol or drug abuse patient.[facility] Encounter Details Date Type Department Care Team (Late st Contact Info) Description 11/20/2009 Patient Msg Medical Records [address] [place] [address] Provider, Ccf RE: Appointment Cancellation Request Social [...] on filedocumented in this encounter Care Teams Binder Selector Relationship Specialty Start Date End Date Camila Rodriguez MD [address] [place] [address] PCP - General 10/13/09 12/28/12 Adebayo Reddy MD [address] [place] [address] PCP - General Family Medicine 12/29/12 08/15/14 Ed Alfredo DO [address] [place] [address] PCP - General Family Medicine 08/16/14 08/31/19 Darrius Orr MD [address] [place] [address] PCP - General Internal Medicine 09/01/19 Darrius Orr MD [address] [place] [address] Referring Internal Medicine 11/16/24 documented as of this encounter
--- OUTSIDE RECORDS SUMMARY | 2024-12-28 20:54 | XMS_ITS | Encounter Summary ---
Author Organization [facility] Address [address] [place] [address] Care Team Providers Care Mechanical Repair Worker Name Role Phone Ed Alfredo DO Primary Care Provider [phone] Darrius Orr MD Primary Care Provider [phone] Darrius Orr MD Unavailable [phone] Source Comments In the event this information is protected by the Federal Confidentiality of Alcohol and Drug AbusePatient Records regulations: The Federal rules restrict any use of the information to criminally investigate or prosecute any alcohol or drug abuse patient.[facility] Encounter Details Date Type Department Care Team (Late st Contact Info) Description 09/15/2014 Patient Msg Medical Records [address] [place] [address] Provider, Ccf Tygerardi Paperwork Social History Tobacco Use Types Packs/Day Years [...] on filedocumented in this encounter Care Teams Mechanical Repair Worker Relationship Specialty Start Date End Date Ed Alfredo DO PCP - General Family Medicine 08/16/14 08/31/19 Darrius Orr MD [address] [place] [address] PCP - General Internal Medicine 09/01/19 Darrius Orr MD [address] [place] [address] Referring Internal Medicine 11/16/24 documented as of this encounter
--- OUTSIDE RECORDS SUMMARY | 2024-12-28 20:54 | XMS_ITS | Encounter Summary ---
Author Organization [facility] Address [address] [place] [address] Care Team Providers Care Brick Baker Name Role Phone Adebayo Reddy MD Primary Care Provider [phone] Ed Alfredo DO Primary Care Provider [phone] Darrius Orr MD Primary Care Provider [phone] Darrius Orr MD Unavailable Source Comments In the event this information is protected by the Federal Confidentiality of Alcohol and Drug AbusePatient Records regulations: The Federal rules restrict any use of the information to criminally investigate or prosecute any alcohol or drug abuse patient.[facility] Encounter Details Date Type Department Care Team (Late st Contact Info) Description 11/12/2013 Patient Msg Medical Records [address] [place] [address] Provider, Ccf Appointment Cancellation Request Social History [...] on filedocumented in this encounter Care Teams Brick Baker Relationship Specialty Start Date End Date Adebayo Reddy MD [address] [place] [address] PCP - General Family Medicine 12/29/12 08/15/14 Ed Alfredo DO [address] [place] [address] PCP - General Family Medicine 08/16/14 08/31/19 Darrius Orr MD [address] [place] [address] PCP - General Internal Medicine 09/01/19 Darrius Orr MD [address] [place] [address] Referring Internal Medicine 11/16/24 documented as of this encounter
--- OUTSIDE RECORDS SUMMARY | 2024-12-28 20:54 | XMS_ITS | Encounter Summary ---
Author Organization [facility] Address [facility] [place] [address] Care Team Providers Care Brand Marketing Specialist Name Role Phone Ed Alfredo DO Primary Care Provider [phone] Darrius Orr MD Primary Care Provider [phone] Darrius Orr MD Unavailable [phone] Source Comments In the event this information is protected by the Federal Confidentiality of Alcohol and Drug AbusePatient Records regulations: The Federal rules restrict any use of the information to criminally investigate or prosecute any alcohol or drug abuse patient.[facility] Encounter Details Date Type Department Care Team (Late st Contact Info) Description 10/17/2014 Patient Msg Medical Records [address] [place] [address] Provider, Ccf RE: Request an Appointment Social [...] on filedocumented in this encounter Care Teams Brand Marketing Specialist Relationship Specialty Start Date End Date Ed Alfredo DO PCP - General Family Medicine 08/16/14 08/31/19 Darrius Orr MD [address] [place] [address] PCP - General Internal Medicine 09/01/19 Darrius Orr MD [address] [place] [address] Referring Internal Medicine 11/16/24 documented as of this encounter
--- OUTSIDE RECORDS SUMMARY | 2024-12-28 20:54 | XMS_ITS | Encounter Summary ---
Author Organization [facility] Address [address] [place] [address] Care Team Providers Care Cancer Program Consultant Name Role Phone Adebayo Reddy MD Primary Care Provider [phone] Ed Alfredo DO Primary Care Provider [phone] Darrius Orr MD Primary Care Provider [phone] Darrius Orr MD Unavailable [phone] Source Comments In the event this information is protected by the Federal Confidentiality of Alcohol and Drug AbusePatient Records regulations: The Federal rules restrict any use of the information to criminally investigate or prosecute any alcohol or drug abuse patient.[facility] Encounter Details Date Type Department Care Team (Late st Contact Info) Description 03/06/2014 Patient Msg Medical Records [address] [place] [address] Provider, Ccf Appointment Cancellation Request Social History [...] on filedocumented in this encounter Care Teams Cancer Program Consultant Relationship Specialty Start Date End Date Adebayo Reddy MD [address] [place] [address] PCP - General Family Medicine 12/29/12 08/15/14 Ed Alfredo DO [address] [place] [address] PCP - General Family Medicine 08/16/14 08/31/19 Darrius Orr MD [address] [place] [address] PCP - General Internal Medicine 09/01/19 Darrius Orr MD [address] [place] [address] Referring Internal Medicine 11/16/24 documented as of this encounter
--- OUTSIDE RECORDS SUMMARY | 2024-12-28 20:54 | XMS_ITS | Encounter Summary ---
Author Organization [facility] Address [facility] [place] [address] Care Team Providers Care Cafeteria Or Lunchroom Checker Name Role Phone Ed Alfredo DO Primary Care Provider [phone] Darrius Orr MD Primary Care Provider [phone] Darrius Orr MD Unavailable [phone] Source Comments In the event this information is protected by the Federal Confidentiality of Alcohol and Drug AbusePatient Records regulations: The Federal rules restrict any use of the information to criminally investigate or prosecute any alcohol or drug abuse patient.[facility] Encounter Details Date Type Department Care Team (Late st Contact Info) Description 08/23/2014 Patient Msg Medical Records [address] [place] [address] Provider, Ccf MRI Results Social History Tobacco Use Types Packs/Day Years [...] on filedocumented in this encounter Care Teams Cafeteria Or Lunchroom Checker Relationship Specialty Start Date End Date Ed Alfredo DO PCP - General Family Medicine 08/16/14 08/31/19 Darrius Orr MD [address] [place] [address] PCP - General Internal Medicine 09/01/19 Darrius Orr MD [address] [place] [address] Referring Internal Medicine 11/16/24 documented as of this encounter
--- OUTSIDE RECORDS SUMMARY | 2024-12-28 20:54 | XMS_ITS | Encounter Summary ---
Author Organization [facility] Address [address] [place] [address] Care Team Prov[address] Care [address] Mechanical Engineer Name Role Phone Camila Rodriguez MD Primary Care Provider [phone] Adebayo Reddy MD Primary Care Provider [phone] Ed Alfredo DO Primary Care Provider [phone] Darrius Orr MD Primary Care Provider [phone] Darrius Orr MD Unavailable [phone] Source Comments In the event this information is protected by the Federal Confidentiality of Alcohol and Drug AbusePatient Records regulations: The Federal rules restrict any use of the information to criminally investigate or prosecute any alcohol or drug abuse patient.[facility] Encounter Details Date Type Department Care Team (Late st Contact Info) Description 01/12/2010 Patient Msg Medical Records [address] [place] [address] Provider, Ccf RE: Request an Appointment Social [...] on filedocumented in this encounter Care Teams Rd Mechanical Engineer Relationship Specialty Start Date End Date Camila Rodriguez MD [address] [place] [address] PCP - General 10/13/09 12/28/12 Adebayo Reddy MD [address] [facility] [address] [place] [address] PCP - General Family Medicine 12/29/12 08/15/14 Ed Alfredo DO [address] [place] [address] PCP - General Family Medicine 08/16/14 08/31/19 Darrius Orr MD [address] [place] [address] PCP - General Internal Medicine 09/01/19 Darrius Orr MD [address] [place] [address] Referring Internal Medicine 11/16/24 documented as of this encounter
--- OUTSIDE RECORDS SUMMARY | 2024-12-28 20:54 | XMS_ITS | Encounter Summary ---
Author Organization [facility] Address [address] [place] [address] Care Team Providers Care Department Assistant Name Role Phone Camila Rodriguez MD Primary Care Provider [phone] Adebayo Reddy MD Primary Care Provider [phone] Ed Alfredo DO Primary Care Provider [phone] Darrius Orr MD Primary Care Provider [phone] Darrius Orr MD Unavailable [phone] Source Comments In the event this information is protected by the Federal Confidentiality of Alcohol and Drug AbusePatient Records regulations: The Federal rules restrict any use of the information to criminally investigate or prosecute any alcohol or drug abuse patient.[facility] Encounter Details Date Type Department Care Team (Late st Contact Info) Description 04/23/2010 Patient Msg Medical Records [address] [place] [address] Provider, Ccf RE: Appointment Cancellation Request Social [...] on filedocumented in this encounter Care Teams Department Assistant Relationship Specialty Start Date End Date Camila Rodriguez MD [address] [place] [address] PCP - General 10/13/09 12/28/12 Adebayo Reddy MD [address] [facility] [address] [place] [address] PCP - General Family Medicine 12/29/12 08/15/14 Ed Alfredo DO [address] [place] [address] PCP - General Family Medicine 08/16/14 08/31/19 Darrius Orr MD [address] [place] [address] PCP - General Internal Medicine 09/01/19 Darrius Orr MD [address] [place] [address] Referring Internal Medicine 11/16/24 documented as of this encounter
--- OUTSIDE RECORDS SUMMARY | 2024-12-28 20:54 | XMS_ITS | Encounter Summary ---
Author Organization [facility] Address [address] [place] [address] Care Team Providers Care Health And Human Performance Professor Name Role Phone Adebayo Reddy MD Primary Care Provider [phone] Ed Alfredo DO Primary Care Provider [phone] Darrius Orr MD Primary Care Provider [phone] Darrius Orr MD Unavailable [phone] Source Comments In the event this information is protected by the Federal Confidentiality of Alcohol and Drug AbusePatient Records regulations: The Federal rules restrict any use of the information to criminally investigate or prosecute any alcohol or drug abuse patient.[facility] Encounter Details Date Type Department Care Team (Late st Contact Info) Description 02/13/2014 Patient Msg Medical Records [address] [place] [address] Provider, Ccf Request an Appointment Social History [...] filedocumented in this encounter Care Teams Health And Human Performance Professor Relationship Specialty Start Date End Date Adebayo Reddy MD [address] [place] [address] PCP - General Family Medicine 12/29/12 08/15/14 Ed Alfredo DO [address] [place] [address] PCP - General Family Medicine 08/16/14 08/31/19 Darrius Orr MD [address] [place] [address] PCP - General Internal Medicine 09/01/19 Darrius Orr MD [address] [place] [address] Referring Internal Medicine 11/16/24 documented as of this encounter
--- OUTSIDE RECORDS SUMMARY | 2024-12-28 20:54 | XMS_ITS | Encounter Summary ---
Author Organization [facility] Address [address] [place] [address] Care Team Providers Care Director Of Direct Marketing Name Role Phone Camila Rodriguez MD Primary Care Provider [phone] Adebayo Reddy MD Primary Care Provider [phone] Ed Alfredo DO Primary Care Provider [phone] Darrius Orr MD Primary Care Provider [phone] Darrius Orr MD Unavailable [phone] Source Comments In the event this information is protected by the Federal Confidentiality of Alcohol and Drug AbusePatient Records regulations: The Federal rules restrict any use of the information to criminally investigate or prosecute any alcohol or drug abuse patient.[facility] Encounter Details Date Type Department Care Team (Late st Contact Info) Description 10/18/2009 Patient Msg Medical Records [address] [place] [address] Provider, Ccf Request an Appointment Social History [...] on filedocumented in this encounter Care Teams Director Of Direct Marketing Relationship Specialty Start Date End Date Camila Rodriguez MD [address] [place] [address] PCP - General 10/13/09 12/28/12 Adebayo Reddy MD [address] [place] [address] PCP - General Family Medicine 12/29/12 08/15/14 Ed Alfredo DO [address] [place] [address] PCP - General Family Medicine 08/16/14 08/31/19 Darrius Orr MD [address] [place] [address] PCP - General Internal Medicine 09/01/19 Darrius Orr MD [address] [place] [address] Referring Internal Medicine 11/16/24 documented as of this encounter
--- OUTSIDE RECORDS SUMMARY | 2024-12-28 20:54 | XMS_ITS | Encounter Summary ---
Author Organization [facility] Address [address] [place] [address] Care Team Providers Care Clinical Phlebotomist Name Role Phone Camila Rodriguez MD Primary Care Provider [phone] Adebayo Reddy MD Primary Care Provider [phone] Ed Alfredo DO Primary Care Provider [phone] Darrius Orr MD Primary Care Provider [phone] Darrius Orr MD Unavailable [phone] Source Comments In the event this information is protected by the Federal Confidentiality of Alcohol and Drug AbusePatient Records regulations: The Federal rules restrict any use of the information to criminally investigate or prosecute any alcohol or drug abuse patient.[facility] Encounter Details Date Type Department Care Team (Late st Contact Info) Description 11/13/2009 Patient Msg Medical Records [address] [place] [address] Provider, Ccf Appointment Cancellation Request Social History [...] on filedocumented in this encounter Care Teams Clinical Phlebotomist Relationship Specialty Start Date End Date Camila Rodriguez MD [address] [facility] [place] [address] PCP - General 10/13/09 12/28/12 Adebayo Reddy MD [address] [facility] [address] [place] [address] PCP - General Family Medicine 12/29/12 08/15/14 Ed Alfredo DO [address] [facility] [address] [place] [address] PCP - General Family Medicine 08/16/14 08/31/19 Darrius Orr MD [address] [place] [address] PCP - General Internal Medicine 09/01/19 Darrius Orr MD [address] [place] [address] Referring Internal Medicine 11/16/24 documented as of this encounter
--- OUTSIDE RECORDS SUMMARY | 2024-12-28 20:54 | XMS_ITS | Encounter Summary ---
Author Organization [facility] Address [address] [place] [address] Care Team Providers Care Flight Crew Time Clerk Name Role Phone Adebayo Reddy MD Primary Care Provider [phone] Ed Alfredo DO Primary Care Provider [phone] Darrius Orr MD Primary Care Provider [phone] Darrius Orr MD Unavailable [phone] Source Comments In the event this information is protected by the Federal Confidentiality of Alcohol and Drug AbusePatient Records regulations: The Federal rules restrict any use of the information to criminally investigate or prosecute any alcohol or drug abuse patient.[facility] Encounter Details Date Type Department Care Team (Late st Contact Info) Description 02/14/2014 Patient Msg Medical Records [address] [place] [address] Provider, Ccf RE: Appointment Cancellation Request Social [...] on filedocumented in this encounter Care Teams Flight Crew Time Clerk Relationship Specialty Start Date End Date Adebayo Reddy MD [address] [place] [address] PCP - General Family Medicine 12/29/12 08/15/14 Ed Alfredo DO [address] [place] [address] PCP - General Family Medicine 08/16/14 08/31/19 Darrius Orr MD [address] [place] [address] PCP - General Internal Medicine 09/01/19 Darrius Orr MD [address] [place] [address] Referring Internal Medicine 11/16/24 documented as of this encounter
--- OUTSIDE RECORDS SUMMARY | 2024-12-28 20:55 | XMS_ITS | Encounter Summary ---
Author Organization [facility] Address [address] [place] [address] Care Team Providers Care Remodeler Name Role Phone Ed Alfredo DO Primary Care Provider [phone] Darrius Orr MD Primary Care Provider [phone] Darrius Orr MD Unavailable [phone] Source Comments In the event this information is protected by the Federal Confidentiality of Alcohol and Drug AbusePatient Records regulations: The Federal rules restrict any use of the information to criminally investigate or prosecute any alcohol or drug abuse patient.[facility] Encounter Details Date Type Department Care Team (Late st Contact Info) Description 11/14/2014 Get Medical Advice Neurology [address] [place] [address] Clayton Campos MD [address] [address] RE: Medication Question (Not Renewal) Social History Tobacco Use Types Packs/Day Years [...] hearing? Answer Date of Assessment Author No 10/25/2014 10:52 AM EDT Kylah Venice parisi MA N * Are you blind or do you have serious difficulty seeing, even when wearing glasses? Answer Date of Assessment Author Yes 10/25/2014 10:52 AM EDT SheridanVenice olivo MA * Do you have serious difficulty walking or climbing stairs? Answer Date of Assessment Author Yes 10/25/2014 10:52 AM EDT SheridanVenice olivo MA N * Do you have difficulty dressing or bathing? Answer Date of Assessment Author No 10/25/2014 10:52 AM EDT Kylah Venice parisi MA N * Because of a physical, mental, or emotional condition, do you have difficulty doing errands alone such as visiting a doctor's office or shopping? Answer Date of Assessment Author No 10/25/2014 10:52 AM EDT SheridanVenice olivo MA documented as of this encounter Mental Status * Because of a physical, mental, or emotional condition, do you have serious difficulty concentrating, remembering, or making decisions? Answer Entry Date Author Yes 10/25/2014 10:52 AM EDT SheridanVenice olivo MA documented in this encounter Plan of Treatment Not on file documented as of this encounter Visit Diagnoses Not on filedocumented in this encounter Care Teams Remodeler Relationship Specialty Start Date End Date Ed Alfredo DO PCP - General Family Medicine 08/16/14 08/31/19 Darrius Orr MD [address] [address] PCP - General Internal Medicine 09/01/19 Darrius Orr MD [address] [facility] [address] [place] [id number] Referring Internal Medicine 11/16/24 documented as of this encounter
--- OUTSIDE RECORDS SUMMARY | 2024-12-28 20:55 | XMS_ITS | Encounter Summary ---
Author Organization [facility] Address [address] [place] [address] Care Team Providers Care Toy Stuffer Name Role Phone Darrius Orr MD Primary Care Provider [phone] Darrius Orr MD Unavailable [phone] Source Comments In the event this information is protected by the Federal Confidentiality of Alcohol and Drug AbusePatient Records regulations: The Federal rules restrict any use of the information to criminally investigate or prosecute any alcohol or drug abuse patient.[facility] Encounter Details Date Type Department Care Team (Late st Contact Info) Description 06/07/2020 Patient Msg Orthopaedics [address] [place] [address] Naif Yates PA-C [address] [place] [address] GEL INJECTION Social History Tobacco Use Types Packs/Day Years Used Date Smoking Tobacco: Former Cigarettes Q uit: 08/18/2012 Smokeless Tobacco: Never Alcohol Use Standard Drinks/Week Comments No 0 (1 standard drink = 0.6 oz pur e alcohol) PHQ-2 Answer Date Recorded PHQ-2 score 6 10/26/2019 Sex and Gender Information Value Date Recorded Sex Assigned at Male 04/11/2020 7:52 AM EDT Legal Sex Male 10:06 AM EST Gender Identity Male 04/11/2020 7:52 AM EDT Sexual Orientation Choose not to disclose 2019 7:52 AM EDT Occupation Industry Job Start Date Job End Date Not on file Not on file Not on file Not on file COVID-19 Exposure Response Date Recorded In the last month, have you been in contact with someone who was confirmed or suspected to have Coronavirus / COVID-19? No / Unsure 06/08/2020 1:34 PM EST documented as of this encounter Functional Status * Are you deaf or do you have serious difficulty hearing? Answer Date of Assessment Author No 02/15/2015 10:31 AM Mckay Panda MA * Are you blind or do you have serious difficulty seeing, even when wearing glasses? Answer Date of Assessment Author No 02/15/2015 10:31 AM Mckay Panda MA * Do you have serious difficulty walking or climbing stairs? Answer Date of Assessment Author No 02/15/2015 10:31 AM Mckay Panda MA * Do you have difficulty dressing or bathing? Answer Date of Assessment Author No 02/15/2015 10:31 AM Mckay Panda MA * Because of a physical, mental, or emotional condition, do you have difficulty doing errands alone such as visiting a doctor's office or shopping? Answer Date of Assessment Author No 02/15/2015 10:31 AM Mckay Panda MA documented as of this encounter Mental Status * Because of a physical, mental, or emotional condition, do you have serious difficulty concentrating, remembering, or making decisions? Answer Entry Date Author No 02/15/2015 10:31 AM Mckay Panda MA documented in this encounter Plan of Treatment Not on file documented as of this encounter Visit Diagnoses Not on filedocumented in this encounter Care Teams Toy Stuffer Relationship Specialty Start Date End Date Darrius Orr MD [address] [place] [address] PCP - General Internal Medicine 09/01/19 Darrius Orr MD [address] [place] [address] Referring Internal Medicine 11/16/24 documented as of this encounter
--- OUTSIDE RECORDS SUMMARY | 2024-12-28 20:55 | XMS_ITS | Encounter Summary ---
Author Organization [facility] Address [address] [place] [address] Care Team Providers Care Hydrographic Surveyor Name Role Phone Ed Alfredo DO Primary Care Provider [phone] Darrius Orr MD Primary Care Provider [phone] Darrius Orr MD Unavailable [phone] Source Comments In the event this information is protected by the Federal Confidentiality of Alcohol and Drug AbusePatient Records regulations: The Federal rules restrict any use of the information to criminally investigate or prosecute any alcohol or drug abuse patient.[facility] Encounter Details Date Type Department Care Team (Late st Contact Info) Description 10/20/2015 Patient Msg Medical Records [facility] [place] [address] Provider, Ccf MRI Social History Tobacco Use Types Packs/Day Years [...] on filedocumented in this encounter Care Teams Hydrographic Surveyor Relationship Specialty Start Date End Date Ed Alfredo DO PCP - General Family Medicine 08/16/14 08/31/19 Darrius Orr MD [address] [place] [address] PCP - General Internal Medicine 09/01/19 Darrius Orr MD [address] [place] [address] Referring Internal Medicine 11/16/24 documented as of this encounter
--- OUTSIDE RECORDS SUMMARY | 2024-12-28 20:55 | XMS_ITS | Encounter Summary ---
Author Organization [facility] Address [address] [place] [address] Care Team Providers Care Truck Washer Name Role Phone Ed Alfredo DO Primary Care Provider [phone] Darrius Orr MD Primary Care Provider [phone] Darrius Orr MD Unavailable [phone] Source Comments In the event this information is protected by the Federal Confidentiality of Alcohol and Drug AbusePatient Records regulations: The Federal rules restrict any use of the information to criminally investigate or prosecute any alcohol or drug abuse patient.[facility] Encounter Details Date Type Department Care Team (Late st Contact Info) Description 09/02/2015 Patient Msg Neurology [address] [place] [address] [place] [address] [id number] [place], [place] [address] RE: Request an Appointment Social History Tobacco [...] of Assessment Author No 02/15/2015 10:31 AM MARCELOT Mckay Neumann MA * Do you have serious difficulty [...] on filedocumented in this encounter Care Teams Truck Washer Relationship Specialty Start Date End Date Ed Alfredo DO PCP - General Family Medicine 08/16/14 08/31/19 Darrius Orr MD [address] [facility] [address] [place] [address] PCP - General Internal Medicine 09/01/19 Darrius Orr MD [address] [place] [address] Referring Internal Medicine 11/16/24 documented as of this encounter
--- OUTSIDE RECORDS SUMMARY | 2024-12-28 20:55 | XMS_ITS | Encounter Summary ---
Author Organization [facility] Address [address] [place] [address] Care Team Providers Care Project Administrative Assistant Name Role Phone Camila Rodriguez MD Primary Care Provider [phone] Adebayo Reddy MD Primary Care Provider [phone] Ed Alfredo DO Primary Care Provider [phone] Darrius Orr MD Primary Care Provider [phone] Darrius Orr MD Unavailable [phone] Source Comments In the event this information is protected by the Federal Confidentiality of Alcohol and Drug AbusePatient Records regulations: The Federal rules restrict any use of the information to criminally investigate or prosecute any alcohol or drug abuse patient.[facility] Encounter Details Date Type Department Care Team (Late st Contact Info) Description 10/01/2010 Patient Msg Medical Records [address] [place] [address] Provider, Ccf RE: Request an Appointment Social [...] on filedocumented in this encounter Care Teams Project Administrative Assistant Relationship Specialty Start Date End Date Camila Rodriguez MD [address] [place] [address] PCP - General 10/13/09 12/28/12 Adebayo Reddy MD [address] [facility] [address] [place] [address] PCP - General Family Medicine 12/29/12 08/15/14 Ed Alfredo DO [address] [place] [address] PCP - General Family Medicine 08/16/14 08/31/19 Darrius Orr MD [address] [place] [address] PCP - General Internal Medicine 09/01/19 Darirus Orr MD [address] [place] [address] Referring Internal Medicine 11/16/24 documented as of this encounter
--- OUTSIDE RECORDS SUMMARY | 2024-12-28 20:55 | XMS_ITS | Encounter Summary ---
Author Organization [facility] Address [address] [place] [address] Care Team Providers Care Patient Advocate Name Role Phone Ed Alfredo DO Primary Care Provider [phone] Darrius Orr MD Primary Care Provider [phone] Darrius Orr MD Unavailable [phone] Source Comments In the event this information is protected by the Federal Confidentiality of Alcohol and Drug AbusePatient Records regulations: The Federal rules restrict any use of the information to criminally investigate or prosecute any alcohol or drug abuse patient.[facility] Encounter Details Date Type Department Care Team (Late st Contact Info) Description 12/29/2015 Patient Msg [facility]ed[facility] [address] [facility] [place] [address] Vicente Bosch V, DPM [address] [place], [place] [id number] RE: Appointment Cancellation Request Social History Tobacco [...] 10:31 AM MARCELOT Mckay Neumann MA * Are you blind or do [...] 10:31 AM MARCELOT Mckay Neumann MA * Because of a physical, mental, [...] on filedocumented in this encounter Care Teams Patient Advocate Relationship Specialty Start Date End Date Ed Alfredo DO PCP - General Family Medicine 08/16/14 08/31/19 Darrius Orr MD [address] [place] [address] PCP - General Internal Medicine 09/01/19 Darrius Orr MD [address] [place] [address] Referring Internal Medicine 11/16/24 documented as of this encounter
--- OUTSIDE RECORDS SUMMARY | 2024-12-28 20:55 | XMS_ITS | Patient Health Record ---
Author Organization Code Climate [facility] [employer] [facility] Address [address] [place] [address] Care Team Providers Care Assistant To The Ceo Name Role Phone Dr. Erik Arora Primary Care Provider [phone] TiburcioMimiLydia Unavailable [phone] Lizzette Cazares Unavailable [phone] Allergies No Known Allergies Reason For Referral No Information Medications Medication SIG (Take, Route, Frequency, Duration) Notes Start Date End Date Status Labetalol HCl 100 MG 1 tablet orally daily Active Cialis 20 MG 1 tablet Orally daily Active Ubrelvy 100 MG 1 tablet Orally as needed (prn) Active Vitamin D Active ARIPiprazole 5 MG TAKE 1 TABLET EVERY DAY for 30 Active Lyrica 25 MG 1 capsule Orally Twi ce a day Active Tecfidera 240 MG 1 capsule orally daily Active Diclofenac Active Vitamin B12 1000 MCG 1 tablet Orally Onc e a day Active Xanax 0.25 MG 1 tablet orally twic e a day (bid) as needed (prn) Active hydroCHLOROthiazide 25 MG 1 tablet orally daily Active Tresiba FlexTouch 100 UNIT/ML . . as directed Active NovoLOG Active Lumigan 0.01 % 1 drop Ophthalmic as directed Active Irbesartan 300 MG 1 tablet Orally Once a day Active Social History Tobacco Use: Social History Observation Description Date Details (start date - stop date) Current Smoker NA - NA Tobacco Screen: Question Answer Notes Are you a: current smoker How often do you smoke cigarettes? every day How many cigarettes a day do you smoke? 21-30 How soon after you wake up do you smoke your fir st cigarette? within 5 min Are you interested in quitting? Ready to quit Alcohol Screening: Question Answer Notes Did you have a drink containing alcohol in the p ast year? No Points 0 Interpretation Negative Depression Screening (PHQ-9): Question Answer Notes Little interest or pleasure in doing things More than half the days Feeling down, depressed, or hopeless More than h halfway the days Trouble falling or staying asleep, or sleeping t oo much More than half the days Feeling tired or having little energy More than half the days Poor appetite or overeating Not at all Feeling bad about yourself-o r that you are a failure or have let yourself or your family down Not at all Trouble concentrating on thi ngs, such as reading the newspaper or watching television Not at all Moving or speaking so slowly that other people could have noticed. Or the opposite being so fidgety or restless that you have been moving around a lot more than usual Not at all Thoughts that you would be b hayden off , or of hurting yourself in some way Not at all Total Score 8 Intepretation Mild Depression Problems Problem Type SNOMED Code ICD Code Onset Dates Problem Status W/U Status Risk Notes Problem Bipolar mixed affective disorder, moderate (F31.62) Active confirmed Encounters Encounter Location Date Provider Diagnosis [facility] [address] [place] [address] 08/24/2024 Erik Arora Cracked tooth K03.81 ; Dental caries on pit and fissure surface penetrating into dentin K02.52 ; Other dental procedure status Z98.818 and Encounter for dental examination and cleaning with abnormal findings Z01.21 [facility] [address] [place] [address] 11/23/2024 Lizzette Cazares Dental caries on pit and fissure surface penetrating into dentin K02.52 Assessments Encounter Date Diagnosis (ICD Code) Assessment Notes Treatment Notes Treatment Clinical Notes Section Notes 08/24/2024 Cracked tooth (ICD-10 - K03.81) 11/23/2024 Dental caries on pit and fissure surface penetrating into dentin (ICD-10 - K02.52) 08/24/2024 Dental caries on pit and fissure surface penetrating into dentin (ICD-10 - K02.52) 08/24/2024 Other dental procedure status (ICD-10 - Z98.818) 08/24/2024 Encounter for dental examination and cleaning with abnormal findings (ICD-10 - Z01.21) Plan Of Treatment Next Appt Details Provider Name:Lizzette Cazares, 03/10/2025 02:50:00 PM, [address], [place], [address], Insurance Providers Payer Name Payer Address Payer Phone Subscriber Number Group Number Insured Name Patient Relationship to Insured Coverage Start Date Coverage End Date [employer] MEDICARE PLAN [address] [address] [place] [address] [id number] KERLINE CHANG Self - patient is the insured 5 [employer] MEDICAID SEC TO [facility] [address] [place] [address] [id number] KERLINE CHANG Self - patient is the insured 1 DENTAL HU[employer]NA MEDICARE [address] [address] [place] [address] [phone] [id number] KERLINE CHANG Self - patient is the insured 5 Medical (General) History Medical History History ICD Code glaucoma diabetes mallitus multiple sclerosis hypertension
--- OUTSIDE RECORDS SUMMARY | 2024-12-28 20:55 | XMS_ITS | Encounter Summary ---
Author Organization [facility] Address [facility] [place] [address] Care Team Providers Care Medical Genetics Director Name Role Phone Ed Alfredo DO Primary Care Provider [phone] Darrius Orr MD Primary Care Provider [phone] Darrius Orr MD Unavailable Source Comments In the event this information is protected by the Federal Confidentiality of Alcohol and Drug AbusePatient Records regulations: The Federal rules restrict any use of the information to criminally investigate or prosecute any alcohol or drug abuse patient.[facility] Encounter Details Date Type Department Care Team (Late st Contact Info) Description 04/22/2015 Patient Msg Medical Records [address] [place] [address] Provider, Ccf Appointment Cancellation Request Social History [...] filedocumented in this encounter Care Teams Medical Genetics Director Relationship Specialty Start Date End Date Ed Alfredo DO PCP - General Family Medicine 08/16/14 08/31/19 Darrius Orr MD [address] [place] [address] PCP - General Internal Medicine 09/01/19 Darrius Orr MD [address] [place] [address] Referring Internal Medicine 11/16/24 documented as of this encounter
--- OUTSIDE RECORDS SUMMARY | 2024-12-28 20:55 | XMS_ITS | Encounter Summary ---
Author Organization [facility] Address [address] [place] [address] Care Team Providers Care Stemhole Borer Name Role Phone Camila Rodriguez MD Primary Care Provider [phone] Adebayo Reddy MD Primary Care Provider [phone] Ed Alfredo DO Primary Care Provider [phone] Darrius Orr MD Primary Care Provider [phone] Darrius Orr MD Unavailable [phone] Source Comments In the event this information is protected by the Federal Confidentiality of Alcohol and Drug AbusePatient Records regulations: The Federal rules restrict any use of the information to criminally investigate or prosecute any alcohol or drug abuse patient.[facility] Encounter Details Date Type Department Care Team (Late st Contact Info) Description 07/14/2010 Patient Msg Medical Records [address] [place] [address] Provider, Ccf RE: Appointment Cancellation Request Social [...] on filedocumented in this encounter Care Teams Stemhole Borer Relationship Specialty Start Date End Date Camila Rodriguez MD [address] [place] [address] PCP - General 10/13/09 12/28/12 Adebayo Reddy MD [address] [facility] [address] [place] [address] PCP - General Family Medicine 12/29/12 08/15/14 Ed Alfredo DO [address] [place] [address] PCP - General Family Medicine 08/16/14 08/31/19 Darrius Orr MD [address] [place] [address] PCP - General Internal Medicine 09/01/19 Darrius Orr MD [address] [place] [address] Referring Internal Medicine 11/16/24 documented as of this encounter
--- OUTSIDE RECORDS SUMMARY | 2024-12-28 20:55 | XMS_ITS | Encounter Summary ---
Author Organization [facility] Address [address] [place] [address] Care Team Providers Care Director Of Land Name Role Phone Darrius Orr MD Primary Care Provider [phone] Darrius Orr MD Unavailable [phone] Source Comments In the event this information is protected by the Federal Confidentiality of Alcohol and Drug AbusePatient Records regulations: The Federal rules restrict any use of the information to criminally investigate or prosecute any alcohol or drug abuse patient.[facility] Encounter Details Date Type Department Care Team (Late st Contact Info) Description 10/26/2019 Patient Msg Urology [address] [place] [address] Boo Gongora MD [address] [place] [address] Appointment Cancellation Request Social History Tobacco Use [...] have Coronavirus / COVID-19? No / Unsure 10/26/2019 11:10 AM EDT documented as of this encounter Functional Status [...] in this encounter Care Teams Director Of Land Relationship Specialty Start Date End Date Darrius Orr MD [address] [place] [address] PCP - General Internal Medicine 09/01/19 Darrius Orr MD [address] [place] [address] Referring Internal Medicine 11/16/24 documented as of this encounter
--- OUTSIDE RECORDS SUMMARY | 2024-12-28 20:55 | XMS_ITS | Encounter Summary ---
Author Organization [facility] Address [address] [place] [address] Care Team Providers Care Rail Walker Name Role Phone Camila Rodriguez MD Primary Care Provider [phone] Adebayo Reddy MD Primary Care Provider [phone] Ed Alfredo DO Primary Care Provider [phone] Darrius Orr MD Primary Care Provider [phone] Darrius Orr MD Unavailable [phone] Source Comments In the event this information is protected by the Federal Confidentiality of Alcohol and Drug AbusePatient Records regulations: The Federal rules restrict any use of the information to criminally investigate or prosecute any alcohol or drug abuse patient.[facility] Encounter Details Date Type Department Care Team (Late st Contact Info) Description 01/28/2011 Patient Msg Medical Records [address] [place] [address] Provider, Ccf RE: Appointment Cancellation Request Social [...] on filedocumented in this encounter Care Teams Rail Walker Relationship Specialty Start Date End Date Camila Rodriguez MD [address] [place] [address] PCP - General 10/13/09 12/28/12 Adebayo Reddy MD [address] [place] [address] PCP - General Family Medicine 12/29/12 08/15/14 Ed Alfredo DO [address] [place] [address] PCP - General Family Medicine 08/16/14 08/31/19 Darrius Orr MD [address] [place] [address] PCP - General Internal Medicine 09/01/19 Darrius Orr MD [address] [place] [address] Referring Internal Medicine 11/16/24 documented as of this encounter
--- OUTSIDE RECORDS SUMMARY | 2024-12-28 20:55 | XMS_ITS | Encounter Summary ---
Author Organization [facility] Address [address] [place] [address] Care Team Providers Care Mold Design Engineer Name Role Phone Camila Rodriguez MD Primary Care Provider [phone] Adebayo Reddy MD Primary Care Provider [phone] Ed Alfredo DO Primary Care Provider [phone] Darrius Orr MD Primary Care Provider [phone] Darrius Orr MD Unavailable [phone] Source Comments In the event this information is protected by the Federal Confidentiality of Alcohol and Drug AbusePatient Records regulations: The Federal rules restrict any use of the information to criminally investigate or prosecute any alcohol or drug abuse patient.[facility] Encounter Details Date Type Department Care Team (Late st Contact Info) Description 08/07/2011 Patient Msg Medical Records [address] [place] [address] Provider, Ccf RE: Appointment Cancellation Request Social [...] on filedocumented in this encounter Care Teams Mold Design Engineer Relationship Specialty Start Date End Date Camila Rodriguez MD [address] [place] [address] PCP - General 10/13/09 12/28/12 Adebayo Reddy MD [address] [place] [address] PCP - General Family Medicine 12/29/12 08/15/14 Ed Alfredo DO [address] [place] [address] PCP - General Family Medicine 08/16/14 08/31/19 Darrius Orr MD [address] [place] [address] PCP - General Internal Medicine 09/01/19 Darrius Orr MD [address] [place] [address] Referring Internal Medicine 11/16/24 documented as of this encounter
--- OUTSIDE RECORDS SUMMARY | 2024-12-28 20:55 | XMS_ITS | Encounter Summary ---
Author Organization [facility] Address [address] [place] [address] Care Team Providers Care Game Show Host Name Role Phone Camila Rodriguez MD Primary Care Provider [phone] Adebayo Reddy MD Primary Care Provider [phone] Ed Alfredo DO Primary Care Provider [phone] Darrius Orr MD Primary Care Provider [phone] Darrius Orr MD Unavailable [phone] Source Comments In the event this information is protected by the Federal Confidentiality of Alcohol and Drug AbusePatient Records regulations: The Federal rules restrict any use of the information to criminally investigate or prosecute any alcohol or drug abuse patient.[facility] Encounter Details Date Type Department Care Team (Late st Contact Info) Description 04/12/2010 Patient Msg Medical Records [address] [place] [address] Provider, Ccf RE: Request an Appointment Social [...] on filedocumented in this encounter Care Teams Game Show Host Relationship Specialty Start Date End Date Camila Rodriguez MD [address] [place] [address] PCP - General 10/13/09 12/28/12 Adebayo Reddy MD [address] [facility] [address] [place] [address] PCP - General Family Medicine 12/29/12 08/15/14 Ed Alfredo DO [address] [place] [address] PCP - General Family Medicine 08/16/14 08/31/19 Darrius Orr MD [address] [place] [address] PCP - General Internal Medicine 09/01/19 Darrius Orr MD [address] [place] [address] Referring Internal Medicine 11/16/24 documented as of this encounter
--- OUTSIDE RECORDS SUMMARY | 2024-12-28 20:55 | XMS_ITS | Encounter Summary ---
Author Organization [facility] Address [address] [place] [address] Care Team Providers Care Engine Boss Name Role Phone Camila Rodriguez MD Primary Care Provider [phone] Adebayo Reddy MD Primary Care Provider [phone] Ed Alfredo DO Primary Care Provider [phone] Darrius Orr MD Primary Care Provider [phone] Darrius Orr MD Unavailable [phone] Source Comments In the event this information is protected by the Federal Confidentiality of Alcohol and Drug AbusePatient Records regulations: The Federal rules restrict any use of the information to criminally investigate or prosecute any alcohol or drug abuse patient.[facility] Encounter Details Date Type Department Care Team (Late st Contact Info) Description 06/29/2010 Patient Msg Medical Records [address] [place] [address] Provider, Ccf Request an Appointment Social History [...] on filedocumented in this encounter Care Teams Engine Boss Relationship Specialty Start Date End Date Camila Rodriguez MD [address] [facility] [place] [address] PCP - General 10/13/09 12/28/12 Adebayo Reddy MD [address] [facility] [address] [place] [address] PCP - General Family Medicine 12/29/12 08/15/14 Ed Alfredo DO [address] [facility] [address] [place] [address] PCP - General Family Medicine 08/16/14 08/31/19 Darrius Orr MD [address] [place] [address] PCP - General Internal Medicine 09/01/19 Darrius Orr MD [address] [place] [address] Referring Internal Medicine 11/16/24 documented as of this encounter
--- OUTSIDE RECORDS SUMMARY | 2024-12-28 20:55 | XMS_ITS | Encounter Summary ---
Author Organization [facility] Address [address] [place] [address] Care Team Providers Care Elastic Attacher Coverstitch Name Role Phone Darrius Orr MD Primary Care Provider [phone] Darrius Orr MD Unavailable [phone] Source Comments In the event this information is protected by the Federal Confidentiality of Alcohol and Drug AbusePatient Records regulations: The Federal rules restrict any use of the information to criminally investigate or prosecute any alcohol or drug abuse patient.[facility] Encounter Details Date Type Department Care Team (Late st Contact Info) Description 04/17/2020 Radiology Radiology [address] [place] [address] Basilia [place], RT(R) Social History Tobacco Use Types Packs/Day Years [...] have Coronavirus / COVID-19? No / Unsure 04/17/2020 11:39 AM EDT documented as of this encounter Functional Status * Are you deaf or do you have serious difficulty hearing? Answer Date of Assessment Author No 02/15/2015 10:31 AM EDT Mckay Neumann MA * Are you blind or do you have serious difficulty seeing, even when wearing glasses? Answer Date of Assessment Author No 02/15/2015 10:31 AM EDT Mckay Neumann MA * Do you have serious difficulty walking or climbing stairs? Answer Date of Assessment Author No 02/15/2015 10:31 AM EDT Mckay Neumann MA * Do you have difficulty dressing or bathing? Answer Date of Assessment Author No 02/15/2015 10:31 AM EDT Mckay Neumann MA * Because of a physical, mental, or emotional condition, do you have difficulty doing errands alone such as visiting a doctor's office or shopping? Answer Date of Assessment Author No 02/15/2015 10:31 AM EDT Mckay Neumann MA documented as of this encounter Mental Status * Because of a physical, mental, or emotional condition, do you have serious difficulty concentrating, remembering, or making decisions? Answer Entry Date Author No 02/15/2015 10:31 AM Mckay Panda MA documented in this encounter Progress Notes * Basilia [place] (Rt) - 04/17/2020 1:19 PM EDT Radiology Service Progress Note PATIENT NAME: Alex Dyer DATE OF SERVICE: April 17, 2020 TIME: 1:19 PM PATIENT IDENTITY VERIFICATION COMPLETED USING TWO (2) IDENTIFIERS: Name and Date of confirmedby patient verbally. FALL SCREENING: Has the patient had 2 falls in the last year or 1 fall with injury or currently using an Ambulatory Assistive Device (Walker, Cane, Wheelchair, Crutches, etc.)? No PATIENT GENDER DATA: Male PATIENT RELEVANT IMPLANT DATA REVIEWED: Not Applicable RADIOLOGY DEPARTMENT: General X-ray: Exam(s) Completed: Lower Extremity X- Ray(s): Knee, AP / Lat / Tunne / Merchant Right and Wt. Bearing: PERIPHERAL IV DATA: Not applicable SIGNED BY: Basilia [place], RT April 17, 2020 1:19 PM documented in this encounter Plan of Treatment Not on file documented as of this encounter Visit Diagnoses Not on filedocumented in this encounter Care Teams Elastic Attacher Coverstitch Relationship Specialty Start Date End Date Darrius Orr MD [address] [place] [address] PCP - General Internal Medicine 09/01/19 Darrius Orr MD [address] [place] [address] Referring Internal Medicine 11/16/24 documented as of this encounter
--- OUTSIDE RECORDS SUMMARY | 2024-12-28 20:55 | XMS_ITS | Encounter Summary ---
Author Organization [facility] Address [address] [place] [address] Care Team Providers Care Aviation Neuropsychologist Name Role Phone Ed Alfredo DO Primary Care Provider [phone] Darrius Orr MD Primary Care Provider [phone] Darrius Orr MD Unavailable [phone] Source Comments In the event this information is protected by the Federal Confidentiality of Alcohol and Drug AbusePatient Records regulations: The Federal rules restrict any use of the information to criminally investigate or prosecute any alcohol or drug abuse patient.[facility] Encounter Details Date Type Department Care Team (Late st Contact Info) Description 12/29/2015 Patient Msg [facility] [address] [facility] [place] [place] [address] Vicente Bosch V, DPM [address] [place], [place] [id number] RE: Appointment Cancellation Request Social History Tobacco [...] on filedocumented in this encounter Care Teams Aviation Neuropsychologist Relationship Specialty Start Date End Date Ed Alfredo DO PCP - General Family Medicine 08/16/14 08/31/19 Darrius Orr MD [address] [place] [address] PCP - General Internal Medicine 09/01/19 Darrius Orr MD [address] [place] [address] Referring Internal Medicine 11/16/24 documented as of this encounter
--- OUTSIDE RECORDS SUMMARY | 2024-12-28 20:55 | XMS_ITS | Encounter Summary ---
Author Organization [facility] Address [address] [place] [address] Care Team Providers Care Amusement Ride Inspector Name Role Phone Ed Alfredo DO Primary Care Provider [phone] Darrius Orr MD Primary Care Provider [phone] Darrius Orr MD Unavailable [phone] Source Comments In the event this information is protected by the Federal Confidentiality of Alcohol and Drug AbusePatient Records regulations: The Federal rules restrict any use of the information to criminally investigate or prosecute any alcohol or drug abuse patient.[facility] Encounter Details Date Type Department Care Team (Late st Contact Info) Description 12/29/2015 Patient [facility]sg [facility]edics [address] [facility] [place] [address] Vicente Bosch V, DPM [address] [place], [place] [id number] RE: Appointment Cancellation Request Social History Tobacco [...] on filedocumented in this encounter Care Teams Amusement Ride Inspector Relationship Specialty Start Date End Date Ed Alfredo DO PCP - General Family Medicine 08/16/14 08/31/19 Darrius Orr MD [address] [place] [address] PCP - General Internal Medicine 09/01/19 Darrius Orr MD [address] [place] [address] Referring Internal Medicine 11/16/24 documented as of this encounter
--- OUTSIDE RECORDS SUMMARY | 2024-12-28 20:55 | XMS_ITS | Encounter Summary ---
Author Organization [facility] Address [facility] [place] [address] Care Team Providers Care Editor Map Name Role Phone Ed Alfredo DO Primary Care Provider [phone] Darrius Orr MD Primary Care Provider [phone] Darrius Orr MD Unavailable [phone] Source Comments In the event this information is protected by the Federal Confidentiality of Alcohol and Drug AbusePatient Records regulations: The Federal rules restrict any use of the information to criminally investigate or prosecute any alcohol or drug abuse patient.[facility] Encounter Details Date Type Department Care Team (Late st Contact Info) Description 11/16/2014 Patient Msg Medical Records [address] [place] [address] Provider, Ccf RE: Appointment Cancellation Request Social [...] Author No 10/25/2014 10:52 AM EDT Kylah parisi DYLON [place] * Are you blind or do you have serious difficulty seeing, even when wearing glasses? Answer Date of Assessment Author Yes 10/25/2014 10:52 AM EDT Kylah ailin OSBORNE [place] * Do you have serious difficulty walking or climbing stairs? Answer Date of Assessment Author Yes 10/25/2014 10:52 AM EDT Kylah ailin OSBORNE [place] * Do you have difficulty dressing or bathing? Answer Date of Assessment Author No 10/25/2014 10:52 AM EDT Kylah parisi DYLON [place] * Because of a physical, mental, or emotional condition, do you have difficulty doing errands alone such as visiting a doctor's office or shopping? Answer Date of Assessment Author No 10/25/2014 10:52 AM EDT Kylah parisi DYLON [place] N documented as of this encounter Mental Status * Because of a physical, mental, or emotional condition, do you have serious difficulty concentrating, remembering, or making decisions? Answer Entry Date Author Yes 10/25/2014 10:52 AM LARA parisi DYLON [place] documented in this encounter Plan of Treatment Not on file documented as of this encounter Visit Diagnoses Not on filedocumented in this encounter Care Teams Editor Map Relationship Specialty Start Date End Date Ed Alfredo DO PCP - General Family Medicine 08/16/14 08/31/19 Darrius Orr MD [address] [place] [address] PCP - General Internal Medicine 09/01/19 Darrius Orr MD [address] [place] [address] Referring Internal Medicine 11/16/24 documented as of this encounter
--- OUTSIDE RECORDS SUMMARY | 2024-12-28 20:55 | XMS_ITS | Encounter Summary ---
Author Organization [facility] Address [facility] [place] [address] Care Team Providers Care Gluing Machine Offbearer Name Role Phone Ed Alfredo DO Primary Care Provider [phone] Darrius Orr MD Primary Care Provider [phone] Darrius Orr MD Unavailable Source Comments In the event this information is protected by the Federal Confidentiality of Alcohol and Drug AbusePatient Records regulations: The Federal rules restrict any use of the information to criminally investigate or prosecute any alcohol or drug abuse patient.[facility] Encounter Details Date Type Department Care Team (Late st Contact Info) Description 11/16/2014 Patient Msg Medical Records [address] [place] [address] Provider, Ccf RE: Request an Appointment Social [...] Author No 10/25/2014 10:52 AM EDT Kylah ailin OSBORNE [place] * Are you blind or do you have serious difficulty seeing, even when wearing glasses? Answer Date of Assessment Author Yes 10/25/2014 10:52 AM EDT Sheridanchinedu parisi MA [place] * Do you have serious difficulty walking or climbing stairs? Answer Date of Assessment Author Yes 10/25/2014 10:52 AM EDT SheridanVeniec olivo MA * Do you have difficulty dressing or bathing? Answer Date of Assessment Author No 10/25/2014 10:52 AM EDT Sheridanchinedu parisi MA [place] * Because of a physical, mental, or emotional condition, do you have difficulty doing errands alone such as visiting a doctor's office or shopping? Answer Date of Assessment Author No 10/25/2014 10:52 AM EDUmang Montero ailin OSBORNE [place] documented as of this encounter Mental Status * Because of a physical, mental, or emotional condition, do you have serious difficulty concentrating, remembering, or making decisions? Answer Entry Date Author Yes 10/25/2014 10:52 AM LARA Swartzchinedu parisi MA [place] documented in this encounter Plan of Treatment Not on file documented as of this encounter Visit Diagnoses Not on filedocumented in this encounter Care Teams Gluing Machine Offbearer Relationship Specialty Start Date End Date Ed Alfredo DO PCP - General Family Medicine 08/16/14 08/31/19 Darrius Orr MD [address] [place] [address] PCP - General Internal Medicine 09/01/19 Darrius Orr MD [address] [place] [address] Referring Internal Medicine 11/16/24 documented as of this encounter
--- OUTSIDE RECORDS SUMMARY | 2024-12-28 20:55 | XMS_ITS | Encounter Summary ---
Author Organization [facility] Address [address] [place] [address] Care Team Providers Care Sql Database Developer Name Role Phone Camila Rodriguez MD Primary Care Provider [phone] Adebayo Reddy MD Primary Care Provider [phone] Ed Alfredo DO Primary Care Provider [phone] Darrius Orr MD Primary Care Provider [phone] Darrius Orr MD Unavailable [phone] Source Comments In the event this information is protected by the Federal Confidentiality of Alcohol and Drug AbusePatient Records regulations: The Federal rules restrict any use of the information to criminally investigate or prosecute any alcohol or drug abuse patient.[facility] Encounter Details Date Type Department Care Team (Late st Contact Info) Description 08/31/2011 Patient Msg Medical Records [address] [place] [address] Provider, Ccf Appointment Cancellation Request Social History [...] on filedocumented in this encounter Care Teams Sql Database Developer Relationship Specialty Start Date End Date Camila Rodriguez MD [address] [place] [address] PCP - General 10/13/09 12/28/12 Adebayo Reddy MD [address] [place] [address] PCP - General Family Medicine 12/29/12 08/15/14 Ed Alfredo DO [address] [place] [address] PCP - General Family Medicine 08/16/14 08/31/19 Darrius Orr MD [address] [place] [address] PCP - General Internal Medicine 09/01/19 Darrius Orr MD [address] [place] [address] Referring Internal Medicine 11/16/24 documented as of this encounter
--- OUTSIDE RECORDS SUMMARY | 2024-12-28 20:55 | XMS_ITS | Encounter Summary ---
Author Organization [facility] Address [address] [facility] [place] [address] Care Team Providers Care Ice Cream Freezer Helper Name Role Phone Darrius Orr MD Unavailable [phone] Darrius Orr MD Primary Care Provider [phone] Aiden Linares DPM Unavailable [phone] Kai Gutierres DO Unavailable [phone] Encounter Details Date Type Department Care Team ([facility] Contact Info) Description 01/22/2023 Abstract [facility] [address] [facility] [address] [place] [address] Darrius Orr MD [address] [facility] [address] [place] [address] Social History Tobacco Use Types Packs/Day Years Used Date Smoking Tobacco: Every Day Cigarettes 0.5 35.4 Started: 08/04/1989 Smokeless Tobacco: Never Comments:5 or less cigs a da y Alcohol Use Standard Drinks/Week Comments Not Currently 0 (1 standard drink = 0.6 oz pur e alcohol) Caffine intake: none AUDIT-C Answer Date Recorded Frequency of Alcohol Consumption Not on file 12/31/2022 Q2: How many drinks containi ng alcohol do you have on a typical day when you are drinking? Patient does not drink Q3: How often do you have si x or more drinks on one occasion? Never 12/31/2022 Sex and Gender Information Value Date Recorded [...] [address] [place] [address] 01/04/2025 1:00 PM EDT Office Visit YOLANDA CAPELLAN [address] [place] [address] Kai Gutierrse DO [address] [place] [address] 01/05/2025 3:45 PM EDT Office Visit [facility] [address] [place] [address] Susie Mary DPM [address] [place] [address] 02/28/2025 1:30 PM EDT Office Visit [facility] [address] [place] [address] documented as of this encounter Visit Diagnoses Not on filedocumented in this encounter Care Teams Ice Cream Freezer Helper Relationship Specialty Start Date End Date Darrius Orr MD [address] [place] [address] PCP - [employer] 08/04/19 Darrius Orr MD [address] [place] [address] PCP - General Internal Medicine 12/31/22 Aiden Linares DPM [address] [place] [address] Referring Physician Podiatry 10/30/23 Kai Gutierres DO [address] [address] Referring Physician Neurology 02/24/24 documented as of this encounter
--- OUTSIDE RECORDS SUMMARY | 2024-12-28 20:55 | XMS_ITS | Encounter Summary ---
Author Organization [facility] Address [address] [place] [address] Care Team Providers Care Oral Pathologist Name Role Phone Camila Rodriguez MD Primary Care Provider [phone] Lizeth Tillman MD Primary Care Provider [phone] Clinton Gonzales MD Primary Care Provider + [phone] Rich Chun MD Primary Care Provider [phone] Wally Monroe MD Primary Care Provider [phone] Rich Chun MD Primary Care Provider [phone] Wally Monroe MD Primary Care Provider [phone] Rich Chun MD Primary Care Provider [phone] Adebayo Reddy MD Primary Care Provider [phone] Ed Alfredo DO Primary Care Provider [phone] Darrius Orr MD Primary Care Provider [phone] Darrius Orr MD Unavailable [phone] Source Comments In the event this information is protected by the Federal Confidentiality of Alcohol and Drug AbusePatient Records regulations: The Federal rules restrict any use of the information to criminally investigate or prosecute any alcohol or drug abuse patient.[facility] Encounter Details Date Type Department Care Team (Late st Contact Info) Description 12/02/2005 Patient Msg Medical Records [address] [place] [address] Provider, Ccf RE: Appointment Cancellation Request Social [...] on filedocumented in this encounter Care Teams Oral Pathologist Relationship Specialty Start Date End Date Camila Rodriguez MD [address] [facility] [place] [address] PCP - General 10/13/09 12/28/12 Lizeth Tillman MD [address] [facility] [address] [place] [address] PCP - General 08/16/09 10/12/09 Clinton Gonzales MD [address] [facility] [place] [address] PCP - General 09/02/08 08/15/09 Rich Chun MD [address] [facility] [place] [address] PCP - General 11/27/06 09/01/08 Wally Monroe MD [address] [place] [address] PCP - General 10/29/06 11/26/06 Rich Chun MD [address] [place] [address] PCP - General 10/28/06 10/28/06 Wally Monroe MD [address] [place] [address] PCP - General 10/15/06 10/27/06 Rich Chun MD [address] [place] [address] PCP - General 11/07/05 10/14/06 Adebayo Reddy MD [address] [facility] [place] [address] PCP - General Family Medicine 12/29/12 08/15/14 Ed Alfredo DO [address] [facility] [place] [address] PCP - General Family Medicine 08/16/14 08/31/19 Darrius Orr MD [address] [place] [address] PCP - General Internal Medicine 09/01/19 Darrius Orr MD [address] [place] [address] Referring Internal Medicine 11/16/24 documented as of this encounter
--- OUTSIDE RECORDS SUMMARY | 2024-12-28 20:55 | XMS_ITS | Encounter Summary ---
Author Organization [facility] Address [address] [place] [address] Care Team Providers Care Assistant Produce Manager Name Role Phone Ed Alfredo DO Primary Care Provider [phone] Darrius Orr MD Primary Care Provider [phone] Darrius Orr MD Unavailable [phone] Source Comments In the event this information is protected by the Federal Confidentiality of Alcohol and Drug AbusePatient Records regulations: The Federal rules restrict any use of the information to criminally investigate or prosecute any alcohol or drug abuse patient.[facility] Encounter Details Date Type Department Care Team (Late st Contact Info) Description 01/08/2016 Patient [facility] [address] [address] Gabi Tamez PA-C [address] [place] [address] RE: Request an Appointment Social History Tobacco [...] on filedocumented in this encounter Care Teams Assistant Produce Manager Relationship Specialty Start Date End Date Ed Alfredo DO PCP - General Family Medicine 08/16/14 08/31/19 Darrius Orr MD [address] [place] [address] PCP - General Internal Medicine 09/01/19 Darrius Orr MD [address] [place] [address] Referring Internal Medicine 11/16/24 documented as of this encounter
--- OUTSIDE RECORDS SUMMARY | 2024-12-28 20:55 | XMS_ITS | Encounter Summary ---
Author Organization [facility] Address [address] [place] [address] Care Team Providers Care Log Snaker Name Role Phone Darrius Orr MD Unavailable [phone] Darrius Orr MD Primary Care Provider [phone] Aiden Linares DPM Unavailable [phone] Kai Gutierres DO Unavailable [phone] Encounter Details Date Type Department Care Team ([facility] Contact Info) Description 03/18/2023 Abstract [facility] [address] [facility] [address] [place] [address] Adriane Cote PA [address] [facility] [address] [place] [address] Social History Tobacco Use Types Packs/Day Years [...] [address] [place] [address] 01/04/2025 1:00 PM EDT Office Visit YOLANDA CAPELLAN [address] [place] [address] Kai Gutierres DO [address] [place] [address] 01/05/2025 3:45 PM EDT Office Visit [facility] [address] [place] [address] Susie Mary DPM [address] [place] [address] 02/28/2025 1:30 PM EDT Office Visit [facility] [address] [place] [address] documented as of this encounter Visit Diagnoses Not on filedocumented in this encounter Care Teams Log Snaker Relationship Specialty Start Date End Date Darrius Orr MD [address] [place] [address] PCP - [employer] 08/04/19 Darrius Orr MD [address] [place] [address] PCP - General Internal Medicine 12/31/22 Aiden Linares DPM [address] [place] [address] Referring Physician Podiatry 10/30/23 Kai Gutierres DO [address] [address] Referring Physician Neurology 02/24/24 documented as of this encounter
--- OUTSIDE RECORDS SUMMARY | 2024-12-28 20:55 | XMS_ITS | Encounter Summary ---
Author Organization [facility] Address [address] [facility] [place] [address] Care Team Providers Care Manager Laboratory Name Role Phone Darrius Orr MD Unavailable [phone] Darrius Orr MD Primary Care Provider [phone] Aiden Linares DPM Unavailable [phone] Kai Gutierres DO Unavailable [phone] Encounter Details Date Type Department Care Team (Late st Contact Info) Description 12/10/2022 Abstract [facility] [address] [facility] [address] [place] [address] Darrius Orr MD [address] [facility] [address] [place] [address] Social History Tobacco Use Types Packs/Day Years [...] Office Visit [facility] [address] [facility] [address] [place] [address] 01/04/2025 1:00 PM EDT Office Visit YOLANDA ARRIAGA [address] [facility] [address] [place] [address] Kai Gutierres DO [address] [place] [address] 01/05/2025 3:45 PM EDT Office Visit [facility] [address] [place] [address] Susie Mary DPM [address] [place] [address] 02/28/2025 1:30 PM EDT Office Visit [facility] [address] [place] [address] documented as of this encounter Visit Diagnoses Not on filedocumented in this encounter Care Teams Manager Laboratory Relationship Specialty Start Date End Date Darrius Orr MD [address] [place] [address] PCP - [employer] 08/04/19 Darrius Orr MD [address] [place] [address] PCP - General Internal Medicine 12/31/22 Aiden Linares DPM [address] [place] [address] Referring Physician Podiatry 10/30/23 Kai Gutierres DO [address] [facility] [address] [place] [address] Referring Physician Neurology 02/24/24 documented as of this encounter
--- OUTSIDE RECORDS SUMMARY | 2024-12-28 20:55 | XMS_ITS | Encounter Summary ---
Author Organization [facility] Address [facility] [place] [address] Care Team Providers Care President Name Role Phone Ed Alfredo DO Primary Care Provider [phone] Darrius Orr MD Primary Care Provider [phone] Darrius Orr MD Unavailable [phone] Source Comments In the event this information is protected by the Federal Confidentiality of Alcohol and Drug AbusePatient Records regulations: The Federal rules restrict any use of the information to criminally investigate or prosecute any alcohol or drug abuse patient.[facility] Encounter Details Date Type Department Care Team (Late st Contact Info) Description 01/25/2015 Patient Msg Medical Records [place] [address] Provider, Ccf Vitamin D Social History Tobacco Use Types Packs/Day Years [...] hearing? Answer Date of Assessment Author No 01/24/2015 2:34 PM EDT [place] Dis[place] MA * Are you blind or do you have serious difficulty seeing, even when wearing glasses? Answer Date of Assessment Author No 01/24/2015 2:34 PM EDT [place] Disla MA * Do you have serious difficulty walking or climbing stairs? Answer Date of Assessment Author No 01/24/2015 2:34 PM EDT [place] Disla MA * Do you have difficulty dressing or bathing? Answer Date of Assessment Author No 01/24/2015 2:34 PM EDT [place] Disla MA * Because of a physical, mental, or emotional condition, do you have difficulty doing errands alone such as visiting a doctor's office or shopping? Answer Date of Assessment Author No 01/24/2015 2:34 PM EDT [place] Disla MA documented as of this encounter Mental Status * Because of a physical, mental, or emotional condition, do you have serious difficulty concentrating, remembering, or making decisions? Answer Entry Date Author Yes 01/24/2015 2:34 PM EDT [place] Disla MA documented in this encounter Plan of Treatment Not on file documented as of this encounter Visit Diagnoses Not on filedocumented in this encounter Care Teams President Relationship Specialty Start Date End Date Ed Alfredo DO PCP - General Family Medicine 08/16/14 08/31/19 Darrius Orr MD [address] [place] [address] PCP - General Internal Medicine 09/01/19 Darrius Orr MD [address] [place] [address] Referring Internal Medicine 11/16/24 documented as of this encounter
--- OUTSIDE RECORDS SUMMARY | 2024-12-28 20:55 | XMS_ITS | Encounter Summary ---
Author Organization [facility] Address [address] [place] [address] Care Team Providers Care Claim Rep Name Role Phone Camila Rodriguez MD Primary Care Provider [phone] Adebayo Reddy MD Primary Care Provider [phone] Ed Alfredo DO Primary Care Provider [phone] Darrius Orr MD Primary Care Provider [phone] Darrius Orr MD Unavailable [phone] Source Comments In the event this information is protected by the Federal Confidentiality of Alcohol and Drug AbusePatient Records regulations: The Federal rules restrict any use of the information to criminally investigate or prosecute any alcohol or drug abuse patient.[facility] Encounter Details Date Type Department Care Team (Late st Contact Info) Description 05/01/2010 Patient Msg Medical Records [address] [place] [address] Provider, Ccf RE: Appointment Cancellation Request Social [...] on filedocumented in this encounter Care Teams Claim Rep Relationship Specialty Start Date End Date Camila Rodriguez MD [address] [place] [address] PCP - General 10/13/09 12/28/12 Adebayo Reddy MD [address] [facility] [address] [place] [address] PCP - General Family Medicine 12/29/12 08/15/14 Ed Alfredo DO [address] [place] [address] PCP - General Family Medicine 08/16/14 08/31/19 Darrius Orr MD [address] [place] [address] PCP - General Internal Medicine 09/01/19 Darrius Orr MD [address] [place] [address] Referring Internal Medicine 11/16/24 documented as of this encounter
--- OUTSIDE RECORDS SUMMARY | 2024-12-28 20:55 | XMS_ITS | Encounter Summary ---
Author Organization [facility] Address [address] [place] [address] Care Team Providers Care Finish Mill Operator Name Role Phone Camila Rodriguez MD Primary Care Provider [phone] Adebayo Reddy MD Primary Care Provider [phone] Ed Alfredo DO Primary Care Provider [phone] Darrius Orr MD Primary Care Provider [phone] Darrius Orr MD Unavailable [phone] Source Comments In the event this information is protected by the Federal Confidentiality of Alcohol and Drug AbusePatient Records regulations: The Federal rules restrict any use of the information to criminally investigate or prosecute any alcohol or drug abuse patient.[facility] Encounter Details Date Type Department Care Team (Late st Contact Info) Description 06/26/2011 Patient Msg Medical Records [address] [place] [address] Provider, Ccf Request an Appointment Social History [...] on filedocumented in this encounter Care Teams Finish Mill Operator Relationship Specialty Start Date End Date Camila Rodriguez MD [address] [place] [address] PCP - General 10/13/09 12/28/12 Adebayo Reddy MD [address] [place] [address] PCP - General Family Medicine 12/29/12 08/15/14 Ed Alfredo DO [address] [place] [address] PCP - General Family Medicine 08/16/14 08/31/19 Darrius Orr MD [address] [place] [address] PCP - General Internal Medicine 09/01/19 Darrius Orr MD [address] [place] [address] Referring Internal Medicine 11/16/24 documented as of this encounter
--- OUTSIDE RECORDS SUMMARY | 2024-12-28 20:55 | XMS_ITS | Encounter Summary ---
Author Organization [facility] Address [address] [facility] [place] [address] Care Team Providers Care Supervisor Agricultural Education Name Role Phone Darrius Orr MD Unavailable [phone] Darrius Orr MD Primary Care Provider [phone] Aiden Linares DPM Unavailable [phone] Kai Gutierres DO Unavailable [phone] Encounter Details Date Type Department Care Team ([facility] Contact Info) Description 07/19/2023 Telephone [facility] [address] [facility] [address] [place] [phone] Darrius Orr MD [address] [facility] [address] [place] [address] Social History Tobacco Use Types Packs/Day Years [...] encounter Miscellaneous Notes * Telephone Encounter - Aric Puga - 07/19/2023 10:46 AM EST Alex Dyer 72: PCP: Adela Gross: Usha caldwell/[facility] [phone]: Critial lab of glucose @ 406. Teams to Dr. Orr. documented in this encounter Plan of Treatment Upcoming Encounters Date Type Department Care Team (Late st Contact Info) Description 12/30/2024 9:45 AM EDT Office Visit [facility] [address] [place] [address] 01/04/2025 1:00 PM EDT Office Visit YOLANDA CAPELLAN [address] [facility] [address] [place] [address] Kai Gutierres, DO [address] [place] [address] 01/05/2025 3:45 PM EDT Office Visit [facility] [address] [place] [address] Susie Mary DPM [address] [place] [address] 02/28/2025 1:30 PM EDT Office Visit [facility] [address] [place] [address] documented as of this encounter Visit Diagnoses Not on filedocumented in this encounter Care Teams Supervisor Agricultural Education Relationship Specialty Start Date End Date Darrius Orr MD [address] [place] [address] PCP - [employer] 08/04/19 Darrius Orr MD [address] [place] [address] PCP - General Internal Medicine 12/31/22 Aiden Linares DPM [address] [address] Referring Physician Podiatry 10/30/23 Kai Gutierres DO [address] [phone] Referring Physician Neurology 02/24/24 documented as of this encounter
--- OUTSIDE RECORDS SUMMARY | 2024-12-28 20:55 | XMS_ITS | Encounter Summary ---
Author Organization [facility] Address [address] [place] [address] Care Team Providers Care Pastry Assistant Name Role Phone Ed Alfredo DO Primary Care Provider [phone] Darrius Orr MD Primary Care Provider [phone] Darrius Orr MD Unavailable [phone] Source Comments In the event this information is protected by the Federal Confidentiality of Alcohol and Drug AbusePatient Records regulations: The Federal rules restrict any use of the information to criminally investigate or prosecute any alcohol or drug abuse patient.[facility] Encounter Details Date Type Department Care Team (Late st Contact Info) Description 08/21/2015 Patient Msg [facility]opaedics [address] [facility] [place] [address] Vicente Bosch V, DPM [address] [place], [place] [id number] RE: Request an Appointment Social History Tobacco [...] on filedocumented in this encounter Care Teams Pastry Assistant Relationship Specialty Start Date End Date Ed Alfredo DO PCP - General Family Medicine 08/16/14 08/31/19 Darrius Orr MD [address] [place] [address] PCP - General Internal Medicine 09/01/19 Darrius Orr MD [address] [place] [address] Referring Internal Medicine 11/16/24 documented as of this encounter
--- OUTSIDE RECORDS SUMMARY | 2024-12-28 20:55 | XMS_ITS | Encounter Summary ---
Author Organization [facility] Address [facility] [place] [address] Care Team Providers Care Septic Tank Servicer Name Role Phone Darrius Orr MD Primary Care Provider [phone] Darrius Orr MD Unavailable [phone] Source Comments In the event this information is protected by the Federal Confidentiality of Alcohol and Drug AbusePatient Records regulations: The Federal rules restrict any use of the information to criminally investigate or prosecute any alcohol or drug abuse patient.[facility] Encounter Details Date Type Department Care Team (Late st Contact Info) Description 12/07/2024 Patient [facility] [place] [address] Luyd Pastrana RPh At your next appointment, choose [facility]. Social History Tobacco Use Types Packs/Day Years Used Date Smoking Tobacco: Former Cigarettes Q uit: 08/18/2012 Smokeless Tobacco: Never Alcohol Use Standard Drinks/Week Comments No 0 (1 standard drink = 0.6 oz pur e alcohol) PHQ-2 Answer Date Recorded PHQ-2 score 6 10/26/2019 Area Deprivation Index Answer Date Jaydon rded National Score (1-100), lower number is lower ri sk Not on file 07/12/2020 State Score (1-10), lower number is lower risk N ot on file 07/12/2020 Data from: https://www.neighborhoodatlas.[facility]/. Last address used for calculation Not on file 07/12/2020 Sex and Gender Information Value Date Recorded [...] on filedocumented in this encounter Care Teams Septic Tank Servicer Relationship Specialty Start Date End Date Darrius Orr MD [address] [facility] [address] [place] [address] PCP - General Internal Medicine 09/01/19 Darrius Orr MD [address] [place] [address] Referring Internal Medicine 11/16/24 documented as of this encounter
--- OUTSIDE RECORDS SUMMARY | 2024-12-28 20:55 | XMS_ITS | Encounter Summary ---
Author Organization [facility] Address [address] [place] [address] Care Team Providers Care Wildlife Ecologist Name Role Phone Ed Alfredo DO Primary Care Provider [phone] Darrius Orr MD Primary Care Provider [phone] Darrius Orr MD Unavailable [phone] Source Comments In the event this information is protected by the Federal Confidentiality of Alcohol and Drug AbusePatient Records regulations: The Federal rules restrict any use of the information to criminally investigate or prosecute any alcohol or drug abuse patient.[facility] Encounter Details Date Type Department Care Team (Late st Contact Info) Description 09/12/2016 Patient Msg Neurology [address] [place], [place] [id number] Gabi Tamez PA-C [address] [place] [address] RE: Request an Appointment Social [...] on filedocumented in this encounter Care Teams Wildlife Ecologist Relationship Specialty Start Date End Date Ed Alfredo DO PCP - General Family Medicine 08/16/14 08/31/19 Darrius Orr MD [address] [place] [address] PCP - General Internal Medicine 09/01/19 Darrius Orr MD [address] [place] [address] Referring Internal Medicine 11/16/24 documented as of this encounter
--- OUTSIDE RECORDS SUMMARY | 2024-12-28 20:55 | XMS_ITS | Encounter Summary ---
Author Organization [facility] Address [address] [place] [address] Care Team Providers Care Jig Fitter Name Role Phone Camila Rodriguez MD Primary Care Provider [phone] Adebayo Reddy MD Primary Care Provider [phone] Ed Alfredo DO Primary Care Provider [phone] Darrius Orr MD Primary Care Provider [phone] Darrius Orr MD Unavailable [phone] Source Comments In the event this information is protected by the Federal Confidentiality of Alcohol and Drug AbusePatient Records regulations: The Federal rules restrict any use of the information to criminally investigate or prosecute any alcohol or drug abuse patient.[facility] Encounter Details Date Type Department Care Team (Late st Contact Info) Description 04/11/2011 Patient Msg Medical Records [address] [place] [address] Provider, Ccf Request an Appointment Social History [...] on filedocumented in this encounter Care Teams Jig Fitter Relationship Specialty Start Date End Date Camila Rodriguez MD [address] [place] [address] PCP - General 10/13/09 12/28/12 Adebayo Reddy MD [address] [place] [address] PCP - General Family Medicine 12/29/12 08/15/14 Ed Alfredo DO [address] [place] [address] PCP - General Family Medicine 08/16/14 08/31/19 Darrius Orr MD [address] [place] [address] PCP - General Internal Medicine 09/01/19 Darrius Orr MD [address] [place] [address] Referring Internal Medicine 11/16/24 documented as of this encounter
--- OUTSIDE RECORDS SUMMARY | 2024-12-28 20:55 | XMS_ITS | Encounter Summary ---
Author Organization [facility] Address [address] [place] [address] Care Team Providers Care Checkroom Chief Name Role Phone Ed Alfredo DO Primary Care Provider [phone] Darrius Orr MD Primary Care Provider [phone] Darrius Orr MD Unavailable [phone] Source Comments In the event this information is protected by the Federal Confidentiality of Alcohol and Drug AbusePatient Records regulations: The Federal rules restrict any use of the information to criminally investigate or prosecute any alcohol or drug abuse patient.[facility] Encounter Details Date Type Department Care Team (Late st Contact Info) Description 10/21/2015 Patient [facility] [address] [address] Gabi Tamez PA-C [address] [place] [address] RE: Appointment Cancellation Request Social History Tobacco [...] on filedocumented in this encounter Care Teams Checkroom Chief Relationship Specialty Start Date End Date Ed Alfredo DO PCP - General Family Medicine 08/16/14 08/31/19 Darrius Orr MD [address] [place] [address] PCP - General Internal Medicine 09/01/19 Darrius Orr MD [address] [place] [address] Referring Internal Medicine 11/16/24 documented as of this encounter
--- OUTSIDE RECORDS SUMMARY | 2024-12-28 20:55 | XMS_ITS | Encounter Summary ---
Author Organization [facility] Address [address] [place] [address] Care Team Providers Care Software Development Analyst Name Role Phone Camila Rodriguez MD Primary Care Provider [phone] Adebayo Reddy MD Primary Care Provider [phone] Ed Alfredo DO Primary Care Provider [phone] Darrius Orr MD Primary Care Provider [phone] Darrius Orr MD Unavailable [phone] Source Comments In the event this information is protected by the Federal Confidentiality of Alcohol and Drug AbusePatient Records regulations: The Federal rules restrict any use of the information to criminally investigate or prosecute any alcohol or drug abuse patient.[facility] Encounter Details Date Type Department Care Team (Late st Contact Info) Description 02/05/2011 Patient Msg Medical Records [address] [place] [address] Provider, Ccf RE: Request an Appointment Social [...] on filedocumented in this encounter Care Teams Software Development Analyst Relationship Specialty Start Date End Date Camila Rodriguez MD [address] [place] [address] PCP - General 10/13/09 12/28/12 Adebayo Reddy MD [address] [place] [address] PCP - General Family Medicine 12/29/12 08/15/14 Ed Alfredo DO [address] [place] [address] PCP - General Family Medicine 08/16/14 08/31/19 Darrius Orr MD [address] [place] [address] PCP - General Internal Medicine 09/01/19 Darrius Orr MD [address] [place] [address] Referring Internal Medicine 11/16/24 documented as of this encounter
--- OUTSIDE RECORDS SUMMARY | 2024-12-28 20:55 | XMS_ITS | Encounter Summary ---
Author Organization [facility] Address [address] [place] [address] Care Team Providers Care Stopperer Assembler Name Role Phone Camila Rodriguez MD Primary Care Provider [phone] Lizeth Tillman MD Primary Care Provider [phone] Clinton Gonzales MD Primary Care Provider + [phone] Rich Chun MD Primary Care Provider [phone] Wally Monroe MD Primary Care Provider [phone] Rich Chun MD Primary Care Provider [phone] Wally Monroe MD Primary Care Provider [phone] Rich Chun MD Primary Care Provider [phone] Adebayo Reddy MD Primary Care Provider [phone] Ed Alfredo DO Primary Care Provider [phone] Darrius Orr MD Primary Care Provider [phone] Darrius Orr MD Unavailable [phone] Source Comments In the event this information is protected by the Federal Confidentiality of Alcohol and Drug AbusePatient Records regulations: The Federal rules restrict any use of the information to criminally investigate or prosecute any alcohol or drug abuse patient.[facility] Encounter Details Date Type Department Care Team (Late st Contact Info) Description 12/02/2005 Patient Msg Medical Records [address] [place] [address] Provider, Ccf Appointment Cancellation Request Social History [...] on filedocumented in this encounter Care Teams Stopperer Assembler Relationship Specialty Start Date End Date Camila Rodriguez MD [address] [facility] [place] [address] PCP - General 10/13/09 12/28/12 Lizeth Tillman MD [address] [facility] [place] [address] PCP - General 08/16/09 10/12/09 Clinton Gonzales MD [address] [facility] [place] [address] PCP - General 09/02/08 08/15/09 Rich Chun MD [address] [facility] [place] [address] PCP - General 11/27/06 09/01/08 Wally Monroe MD [address] [place] [address] PCP - General 10/29/06 11/26/06 Rich Chun MD [address] [place] [address] PCP - General 10/28/06 10/28/06 Wally Monroe MD [address] [place] [address] PCP - General 10/15/06 10/27/06 Rich Chun MD [address] [place] [address] PCP - General 11/07/05 10/14/06 Adebayo Reddy MD [address] [place] [address] PCP - General Family Medicine 12/29/12 08/15/14 Ed Alfredo DO [address] [place] [address] PCP - General Family Medicine 08/16/14 08/31/19 Darrius Orr MD [address] [place] [address] PCP - General Internal Medicine 09/01/19 Darrius Orr MD [address] [place] [address] Referring Internal Medicine 11/16/24 documented as of this encounter
--- OUTSIDE RECORDS SUMMARY | 2024-12-28 20:55 | XMS_ITS | Encounter Summary ---
Author Organization [facility] Address [address] [place] [address] Care Team Providers Care Street Sprinkler Name Role Phone Camila Rodriguez MD Primary Care Provider [phone] Adebayo Reddy MD Primary Care Provider [phone] Ed Alfredo DO Primary Care Provider + [phone] Darrius Orr MD Primary Care Provider [phone] Darrius Orr MD Unavailable [phone] Source Comments In the event this information is protected by the Federal Confidentiality of Alcohol and Drug AbusePatient Records regulations: The Federal rules restrict any use of the information to criminally investigate or prosecute any alcohol or drug abuse patient.[facility] Encounter Details Date Type Department Care Team (Late st Contact Info) Description 06/06/2011 Patient Msg Medical Records [address] [place] [address] Provider, Ccf RE: Appointment Cancellation Request Social [...] on filedocumented in this encounter Care Teams Street Sprinkler Relationship Specialty Start Date End Date Camila Rodriguez MD [address] [place] [address] PCP - General 10/13/09 12/28/12 Adebayo Reddy MD [address] [place] [address] PCP - General Family Medicine 12/29/12 08/15/14 Ed Alfredo DO [address] [place] [address] PCP - General Family Medicine 08/16/14 08/31/19 Darrius Orr MD [address] [place] [address] PCP - General Internal Medicine 09/01/19 Darrius Orr MD [address] [place] [address] Referring Internal Medicine 11/16/24 documented as of this encounter
--- OUTSIDE RECORDS SUMMARY | 2024-12-28 20:55 | XMS_ITS | Encounter Summary ---
Author Organization [facility] Address [address] [place] [address] Care Team Providers Care Asset Protection Representative Name Role Phone Ed Alfredo DO Primary Care Provider [phone] Darrius Orr MD Primary Care Provider [phone] Darrius Orr MD Unavailable [phone] Source Comments In the event this information is protected by the Federal Confidentiality of Alcohol and Drug AbusePatient Records regulations: The Federal rules restrict any use of the information to criminally investigate or prosecute any alcohol or drug abuse patient.[facility] Encounter Details Date Type Department Care Team (Late st Contact Info) Description 09/13/2016 [facility] [address] [address] Gabi Tamez PA-C [address] [place] [address] RE: Appointment Cancellation Request Social [...] on filedocumented in this encounter Care Teams Asset Protection Representative Relationship Specialty Start Date End Date Ed Alfredo DO PCP - General Family Medicine 08/16/14 08/31/19 Darrius Orr MD [address] [place] [address] PCP - General Internal Medicine 09/01/19 Darrius Orr MD [address] [place] [address] Referring Internal Medicine 11/16/24 documented as of this encounter
--- OUTSIDE RECORDS SUMMARY | 2024-12-28 20:55 | XMS_ITS | Encounter Summary ---
Author Organization [facility] Address [address] [place] [address] Care Team Providers Care Tableau Developer Name Role Phone Camila Rodriguez MD Primary Care Provider [phone] Adebayo Reddy MD Primary Care Provider [phone] Ed Alfredo DO Primary Care Provider [phone] Darrius Orr MD Primary Care Provider [phone] Darrius Orr MD Unavailable [phone] Source Comments In the event this information is protected by the Federal Confidentiality of Alcohol and Drug AbusePatient Records regulations: The Federal rules restrict any use of the information to criminally investigate or prosecute any alcohol or drug abuse patient.[facility] Encounter Details Date Type Department Care Team (Late st Contact Info) Description 04/10/2011 Patient Msg Medical Records [address] [place] [address] Provider, Ccf Request an Appointment Social History [...] on filedocumented in this encounter Care Teams Tableau Developer Relationship Specialty Start Date End Date Camila Rodriguez MD [address] [place] [address] PCP - General 10/13/09 12/28/12 Adebayo Reddy MD [address] [place] [address] PCP - General Family Medicine 12/29/12 08/15/14 Ed Alfredo DO [address] [place] [address] PCP - General Family Medicine 08/16/14 08/31/19 Darrius rOr MD [address] [place] [address] PCP - General Internal Medicine 09/01/19 Darrius Orr MD [address] [place] [address] Referring Internal Medicine 11/16/24 documented as of this encounter
--- OUTSIDE RECORDS SUMMARY | 2024-12-28 20:55 | XMS_ITS | Encounter Summary ---
Author Organization [facility] Address [address] [place] [address] Care Team Providers Care Wire Winding Machine Tender Name Role Phone Ed Alfredo DO Primary Care Provider [phone] Darrius Orr MD Primary Care Provider [phone] Darrius Orr MD Unavailable [phone] Source Comments In the event this information is protected by the Federal Confidentiality of Alcohol and Drug AbusePatient Records regulations: The Federal rules restrict any use of the information to criminally investigate or prosecute any alcohol or drug abuse patient.[facility] Encounter Details Date Type Department Care Team (Late st Contact Info) Description 09/18/2015 Patient [facility] [address] [address] Gabi Tamez PA-C [address] [place] [address] RE: Appointment Cancellation Request Social [...] on filedocumented in this encounter Care Teams Wire Winding Machine Tender Relationship Specialty Start Date End Date Ed Alfredo DO PCP - General Family Medicine 08/16/14 08/31/19 Darrius Orr MD [address] [place] [address] PCP - General Internal Medicine 09/01/19 Darrius Orr MD [address] [place] [address] Referring Internal Medicine 11/16/24 documented as of this encounter
--- OUTSIDE RECORDS SUMMARY | 2024-12-28 20:55 | XMS_ITS | Encounter Summary ---
Author Organization [facility] Address [address] [place] [address] Care Team Providers Care Electrical Line Splicer Name Role Phone Ed Alfredo DO Primary Care Provider [phone] Darrius Orr MD Primary Care Provider [phone] Darrius Orr MD Unavailable [phone] Source Comments In the event this information is protected by the Federal Confidentiality of Alcohol and Drug AbusePatient Records regulations: The Federal rules restrict any use of the information to criminally investigate or prosecute any alcohol or drug abuse patient.[facility] Encounter Details Date Type Department Care Team (Late st Contact Info) Description 02/09/2016 [facility] [address] [place] [phone] Clayton Campos MD [facility] [address] [address] RE: Medication Question (Not Renewal) [...] on filedocumented in this encounter Care Teams Electrical Line Splicer Relationship Specialty Start Date End Date Ed Alfredo DO PCP - General Family Medicine 08/16/14 08/31/19 Darrius Orr MD [address] [facility] [address] [place] [address] PCP - General Internal Medicine 09/01/19 Darrius Orr MD [address] [facility] [address] [place] [address] Referring Internal Medicine 11/16/24 documented as of this encounter
--- OUTSIDE RECORDS SUMMARY | 2024-12-28 20:55 | XMS_ITS | Encounter Summary ---
Author Organization [facility] Address [address] [place] [place] [address] Care Team Providers Care Video Editing Internship Name Role Phone Darrius Orr MD Unavailable [phone] Darrius Orr MD Primary Care Provider [phone] Aiden Linares DPM Unavailable [phone] Kai Gutierres DO Unavailable [phone] Encounter Details Date Type Department Care Team ([facility] Contact Info) Description 04/10/2023 Orders Only [facility] [address] [facility] [address] [place] [phone] Greer Worthy PA [address] [facility] [address] [place] [address] Social History Tobacco Use Types Packs/Day Years [...] [address] [place] [phone] 01/04/2025 1:00 PM EDT Office Visit [facility] [address] [place] [phone] Kai Gutierres, DO [address] [place] [address] 01/05/2025 3:45 PM EDT Office Visit [facility] [address] [place] [phone] Susie Mary DPM [address] [place] [address] 02/28/2025 1:30 PM EDT Office Visit [facility] [address] [place] [phone] documented as of this encounter Visit Diagnoses Not on filedocumented in this encounter Care Teams Video Editing Internship Relationship Specialty Start Date End Date Darrius Orr MD [address] [place] [address] PCP - [employer] 08/04/19 Darrius Orr MD [address] [place] [address] PCP - General Internal Medicine 12/31/22 Aiden Linares DPM [address] [place] [address] Referring Physician Podiatry 10/30/23 Kai Gutierres DO [address] [phone] Referring Physician Neurology 02/24/24 documented as of this encounter
--- OUTSIDE RECORDS SUMMARY | 2024-12-28 20:55 | XMS_ITS | Encounter Summary ---
Author Organization [facility] Address [address] [place] [address] Care Team Providers Care Surgeon Partner Name Role Phone Camila Rodriguez MD Primary Care Provider [phone] Adebayo Reddy MD Primary Care Provider [phone] Ed Alfredo DO Primary Care Provider [phone] Darrius Orr MD Primary Care Provider [phone] Darrius Orr MD Unavailable [phone] Source Comments In the event this information is protected by the Federal Confidentiality of Alcohol and Drug AbusePatient Records regulations: The Federal rules restrict any use of the information to criminally investigate or prosecute any alcohol or drug abuse patient.[facility] Encounter Details Date Type Department Care Team (Late st Contact Info) Description 04/18/2011 Patient Msg Medical Records [address] [place] [address] Provider, Ccf RE: Request an Appointment Social [...] on filedocumented in this encounter Care Teams Surgeon Partner Relationship Specialty Start Date End Date Camila Rodriguez MD [address] [place] [address] PCP - General 10/13/09 12/28/12 Adebayo Reddy MD [address] [place] [address] PCP - General Family Medicine 12/29/12 08/15/14 Ed Alfredo DO [address] [place] [address] PCP - General Family Medicine 08/16/14 08/31/19 Darrius Orr MD [address] [place] [address] PCP - General Internal Medicine 09/01/19 Darrius Orr MD [address] [place] [address] Referring Internal Medicine 11/16/24 documented as of this encounter
--- OUTSIDE RECORDS SUMMARY | 2024-12-28 20:55 | XMS_ITS | Encounter Summary ---
Author Organization [facility] Address [address] [place] [address] Care Team Providers Care Events Associate Name Role Phone Camila Rodriguez MD Primary Care Provider [phone] Adebayo Reddy MD Primary Care Provider [phone] Ed Alfredo DO Primary Care Provider [phone] Darrius Orr MD Primary Care Provider [phone] Darrius Orr MD Unavailable [phone] Source Comments In the event this information is protected by the Federal Confidentiality of Alcohol and Drug AbusePatient Records regulations: The Federal rules restrict any use of the information to criminally investigate or prosecute any alcohol or drug abuse patient.[facility] Encounter Details Date Type Department Care Team (Late st Contact Info) Description 11/29/2010 Patient Msg Medical Records [address] [place] [address] Provider, Ccf RE: Appointment Cancellation Request Social [...] on filedocumented in this encounter Care Teams Events Associate Relationship Specialty Start Date End Date Camila Rodriguez MD [address] [place] [address] PCP - General 10/13/09 12/28/12 Adebayo Reddy MD [address] [place] [address] PCP - General Family Medicine 12/29/12 08/15/14 Ed Alfredo DO [address] [place] [address] PCP - General Family Medicine 08/16/14 08/31/19 Darrius Orr MD [address] [place] [address] PCP - General Internal Medicine 09/01/19 Darrius Orr MD [address] [place] [address] Referring Internal Medicine 11/16/24 documented as of this encounter
--- OUTSIDE RECORDS SUMMARY | 2024-12-28 20:55 | XMS_ITS | Encounter Summary ---
Author Organization [facility] Address [address] [place] [address] Care Team Providers Care Retail Loss Prevention Officer Name Role Phone Camila Rodriguez MD Primary Care Provider [phone] Adebayo Reddy MD Primary Care Provider [phone] Ed Alfredo DO Primary Care Provider [phone] Darrius Orr MD Primary Care Provider [phone] Darrius Orr MD Unavailable [phone] Source Comments In the event this information is protected by the Federal Confidentiality of Alcohol and Drug AbusePatient Records regulations: The Federal rules restrict any use of the information to criminally investigate or prosecute any alcohol or drug abuse patient.[facility] Encounter Details Date Type Department Care Team (Late st Contact Info) Description 04/25/2011 Patient Msg Medical Records [address] [place] [address] Provider, Ccf Request an Appointment Social History [...] on filedocumented in this encounter Care Teams Retail Loss Prevention Officer Relationship Specialty Start Date End Date Camila Rodriguez MD [address] [place] [address] PCP - General 10/13/09 12/28/12 Adebayo Reddy MD [address] [place] [address] PCP - General Family Medicine 12/29/12 08/15/14 Ed Alfredo DO [address] [place] [address] PCP - General Family Medicine 08/16/14 08/31/19 Darrius Orr MD [address] [place] [address] PCP - General Internal Medicine 09/01/19 Darrius Orr MD [address] [place] [address] Referring Internal Medicine 11/16/24 documented as of this encounter
--- OUTSIDE RECORDS SUMMARY | 2024-12-28 20:55 | XMS_ITS | Encounter Summary ---
Author Organization [facility] Address [facility] [place] [address] Care Team Providers Care Trim Master Operator Name Role Phone Ed Alfredo DO Primary Care Provider [phone] Darrius Orr MD Primary Care Provider [phone] Darrius Orr MD Unavailable [phone] Source Comments In the event this information is protected by the Federal Confidentiality of Alcohol and Drug AbusePatient Records regulations: The Federal rules restrict any use of the information to criminally investigate or prosecute any alcohol or drug abuse patient.[facility] Encounter Details Date Type Department Care Team (Late st Contact Info) Description 01/31/2015 Patient Msg Medical Records [address] [place] [address] Provider, Ccf [employer] Social History Tobacco Use Types Packs/Day Years [...] on filedocumented in this encounter Care Teams Trim Master Operator Relationship Specialty Start Date End Date Ed Alfredo DO PCP - General Family Medicine 08/16/14 08/31/19 Darrius Orr MD [address] [place] [address] PCP - General Internal Medicine 09/01/19 Darrius Orr MD [address] [place] [address] Referring Internal Medicine 11/16/24 documented as of this encounter
--- OUTSIDE RECORDS SUMMARY | 2024-12-28 20:56 | XMS_ITS | Encounter Summary ---
Author Organization [facility] Address [facility] [place] [address] Care Team Providers Care Counter Helper Name Role Phone Darrius Orr MD Primary Care Provider [phone] Darrius Orr MD Unavailable [phone] Source Comments In the event this information is protected by the Federal Confidentiality of Alcohol and Drug AbusePatient Records regulations: The Federal rules restrict any use of the information to criminally investigate or prosecute any alcohol or drug abuse patient.[facility] Encounter Details Date Type Department Care Team (Late st Contact Info) Description 12/07/2024 Patient [facility] -[address] [place] [address] Ludy Pastrana RPh At your next appointment, choose [facility]. Social History Tobacco Use Types [...] N ot on file 07/12/2020 Data from: [email or web address] Last address used for calculation Not [...] on filedocumented in this encounter Care Teams Counter Helper Relationship Specialty Start Date End Date Darrius Orr MD [address] [facility] [address] [place] [address] PCP - General Internal Medicine 09/01/19 Darrius Orr MD [address] [place] [address] Referring Internal Medicine 11/16/24 documented as of this encounter
[2024-12-28 20:57] VITALS: PULSE 75; O2SAT 97
--- NOTE | 2024-12-28 20:57 | ECG_ITS ---
[facility] Test Date: 2024-12-28 Pat Name: KERLINE CHANG Department: Room: - Gender: Male Cooker Loader: : 1970 Requested By: [id number] Order Number: [id number] Reading MD: KALPESH MAN M.D. Measurements Intervals [place] Rate: 75 P: -[id number] VT: 222 QRS: 1 QRSD: 86 T: 27 QT: 404 QTc: 433 Interpretive Statements Sinus rhythm with first degree AV block 5222 Moderate voltage criteria for LVH, may be normal variant 9140 abnormal rhythm ECG Compared to ECG 05/18/2019 08:59:16 Left ventricular hypertrophy now present ST (T wave) deviation no longer present VT interval has lengthened Electronically Signed On 12-29-2024 18:04:05 EDT by KALPESH MAN M.D.
[2024-12-28 21:00] VITALS: PULSE 76; O2SAT 96
[2024-12-28 21:10] VITALS: PULSE 76; O2SAT 97
[2024-12-28 21:13] VITALS: PULSE 74
--- NOTE | 2024-12-28 21:13 | ED.DIZZY1 ---
HPI - Dizziness General Chief Complaint: Dizziness Stated Complaint: dizzy, slurred speech, migraine Time Seen by Provider: 12/28/24 20:55 Source: patient Mode of arrival: Wheelchair History of Present Illness HPI Narrative: past history of migraines. migraines for years. Current headache for past month. seen at [facility] several times this month for migraine and treated with Toradol. History of MS. States becomes off balance with MS and will occ loose his balance and end up stepping side ways for a couple of steps. States usually after infusion therapy for MS this improves. Last infusion was one week ago. Seen today by his PCP. Given an injection of Toradol and also prescribed prednisone taper for ? temporal arteritis. Patient states sed rate elevated. Took prednisone . developed a sensation of spinning(room spinning) about 4 hours ago. Also describes difficulty with speech. He felt he was slurring. His mother felt he had a stutter to his speech. He describes difficulty trying to speak. Also felt like he wanted to fall to the left. He went to [facility]. In triage his BP was elevated. His hand grasp were equal. He has pain of his hands when making a fist due to RA. He also has diabetic peripheral neuropathy. Because of the wait at [facility] he went home. He was home about an hour and decided to come here because of the continued dizziness. His headache continues also. Feels the prednisone helped his druze headache pain but not his parietal scalp headache. No fever. No nausea or vomiting. No ear pain but does have decreased hearing Related Data Home Medications ?Medication ?Instructions ?Recorded ?Confirmed cyclobenzaprine 10 mg tablet 10 mg PO Q8H PRN muscle spasm 05/21/23 12/28/24 insulin degludec 200 unit/mL (3 100 unit subcut DAILY 05/21/23 12/28/24 mL) subcutaneous pen (Tresiba FlexTouch U-200 insulin) irbesartan 300 mg tablet 300 mg PO DAILY 05/21/23 05/21/23 pregabalin 200 mg capsule 200 mg PO DAILY 05/21/23 05/21/23 rosuvastatin 10 mg tablet 10 mg PO DAILY 05/21/23 05/21/23 amitriptyline 25 mg tablet mg 12/28/24 pregabalin 300 mg capsule mg 12/28/24 Previous Rx's ?Medication ?Instructions ?Recorded methocarbamol 750 mg tablet 750 mg PO TID PRN pain #20 tabs 05/21/23 mupirocin 2 % topical ointment 1 applic topical BID #15 grams 04/01/24 Allergies Allergy/AdvReac Type Severity Reaction Status Date / Time celecoxib (From Celebrex) AdvReac Diarrhea Verified 12/28/24 20:55 Review of Systems ROS Status of ROS 10 or more systems reviewed and unremarkable except as noted in history and [facility] Social History Smoking status: Current every day smoker Little interest or pleasure in doing things: not at all Feeling down, depressed, or hopeless: not at all Exam Constitutional Vital Signs, click to edit/add: Last Vital Signs Temp 98 F 12/28/24 20:51 Pulse 74 12/28/24 21:13 Resp 12 12/28/24 21:13 BP 149/56 H 12/28/24 22:03 Pulse Ox 97 12/28/24 21:10 O2 Del Method Room Air 12/28/24 20:51 Common normals: no apparent distress, oriented x3, no limitations and well nourished HENID Common normals: normocephalic and head/scalp atraumatic Eye Common normals: PERRL, EOMs intact bilaterally and conjunctivae normal Respiratory Common normals: normal respiratory effort, no retractions, no use of accessory muscles and clear to auscultation bilaterally Cardio Common normals: regular rate, regular rhythm, S1 normal heart sound and S2 normal heart sound GI Common normals: Normal to inspection, nondistended, normoactive bowel sounds present, soft to palpation and non-tender Extremity Common normals: full ROM Neuro Common normals: oriented x3, CN's II-XII intact bilaterally, moves all extremities and no focal motor deficits Psych Appearance: grossly normal Course Vital Signs Vital signs: Vital Signs Temperature 98 F 12/28/24 20:51 Pulse Rate 76 12/28/24 20:51 Respiratory Rate 18 12/28/24 20:51 Blood Pressure 210/114 H 12/28/24 20:51 Pulse Oximetry 95 12/28/24 20:51 Oxygen Delivery Method Room Air 12/28/24 20:51 Temperature 98 F 12/28/24 20:51 Pulse Rate 74 12/28/24 21:13 Respiratory Rate 12 12/28/24 21:13 Blood Pressure 149/56 H 12/28/24 22:03 Pulse Oximetry 97 12/28/24 21:10 Oxygen Delivery Method Room Air 12/28/24 20:51 MDM - Dizziness MDM Narrative Medical decision making narrative: patient presents complaining of headache for past month. Several visits to [facility] ER for same and also seen by his PCP earlier today and treated with Toradol and prednisone. Has history of MS for which he receives infusions q 6months. Last infusion last week. States he will have imbalance when walking due to his MS . This evening he complained of room spinning and a sensation of wanting to lean to the left. Also felt his speech was slurred for about 3 hours. His mother described his speech as more of a stutter. States he has similar speech several years ago which they associated with seizure. On exam his speech was very clear and there were no focal weakness. He did complaining of room spinning but no associated nausea or vomiting. BP elevated on admission but improved without intervention. CT brain neg for acute findings. Migraine headache treated with combination of benadryl, compazine and Toradol. His headache is better. He still feels a little dizzy. His BS elevated 500s but labs without evidence of DKA. He is now requesting to go home. Informed that I wanted to give him something more for the dizziness and then discuss his response and history with Neurology. Patient is requesting to leave. States he will treat his elevated BS at home. Did not want insulin or further therapy here despite stroke like symptoms Lab Data Labs: Lab Results 12/28/24 Range/Units 21:46 WBC 9.2 (4.0-11.0) 10^3/uL RBC 4.86 (4.70-6.10) 10^6/uL Hgb 14.4 (14.0-18.0) g/dL Hct 43.0 (42.0-54.0) % MCV 88.5 (80.0-94.0) fL MCH 29.6 (25.9-34.0) pg MCHC 33.5 (29.9-35.2) g/dL RDW 13.1 (11.0-15.0) % Plt Count 298 (150-450) 10^3/uL MPV 10.5 (9.5-13.5) fL Seg Neuts % (Manual) 91.0 H (43.0-75.0) Band Neutrophils % 2.0 (0-5) % Lymphocytes % (Manual) 5.0 L (20.5-60.0) % Monocytes % (Manual) 1.0 L (1.7-12.0) % Eosinophils % (Manual) 0.0 L (0.9-7.0) % Basophils % (Manual) 1.0 (0.2-2.0) % Neutrophils # (Manual) 8.37 H (1.4-6.5) 10^3/uL Band Neutrophils # 0.2 (0.0-0.3) 10^3/uL Lymphocytes # (Manual) 0.46 L (1.20-3.80) 10^3/uL Monocytes # (Manual) 0.09 L (0.30-0.80) 10^3/uL Eosinophils # (Manual) 0.00 (0.00-0.70) 10^3/uL Basophils # (Manual) 0.09 (0.00-0.10) 10^3/uL Sodium 133 L (136-145) mmol/L Potassium 5.6 H (3.5-5.1) mmol/L Chloride 100 (98-107) mmol/L Carbon Dioxide 24.8 (21.0-32.0) mmol/L Anion Gap 13.8 BUN 24.0 H (7.0-18.0) mg/dL Creatinine 1.25 (0.70-1.30) mg/dL Est GFR ( Amer) >60 (>=60 mL/min/1.73m^2) Est GFR (Non-Af Amer) >60 (>=60 mL/min/1.73m^2) BUN/Creatinine Ratio 19.2 Glucose 507 H* (74-106) mg/dL Calcium 9.0 (8.5-10.1) mg/dL Troponin I High Sens 12.2 (4.0-76.1) pg/mL Discharge Plan Discharge Chief Complaint: Dizziness Clinical Impression: Headache, Dizziness, Acute hyperglycemia Patient Disposition: Home, Self-Care Prescriptions / Home Meds: No Action insulin degludec [Tresiba FlexTouch U-200] 200 unit/mL (3 mL) insulin pen 100 unit SUBCUT DAILY irbesartan 300 mg tablet 300 mg PO DAILY pregabalin 200 mg capsule 200 mg PO DAILY rosuvastatin 10 mg tablet 10 mg PO DAILY cyclobenzaprine 10 mg tablet 10 mg PO Q8H PRN (Reason: muscle spasm) methocarbamol 750 mg tablet 750 mg PO TID PRN (Reason: pain) Qty: 20 0RF mupirocin 2 % ointment 1 applic topical BID Qty: 15 0RF amitriptyline 25 mg tablet pregabalin 300 mg capsule Print Language: Portuguese Instructions: Acute Headache (ED), Dizziness (ED), Diabetic Hyperglycemia (ED) Additional Instructions: Take your insulin when you get home and keep in mind prednisone raises blood sugar. Follow up with your doctor tomorrow for recheck. Referrals: NISA ROJAS [Primary Care Provider, Internal Medicine] - 1 week Discharge Date/Time: 12/28/24 23:00
[2024-12-28 22:01] LABS: Hemoglobin 14.4 g/dL (14.0-18.0); Mean Corpuscular HGB Conc 33.5 g/dL (29.9-35.2); Mean Corpuscular Hemoglobin 29.6 pg (25.9-34.0); Mean Corpuscular Volume 88.5 fL (80.0-94.0); Mean Platelet Volume 10.5 fL (9.5-13.5); Platelet Count 298 10^3/uL (150-450); Red Blood Count 4.86 10^6/uL (4.70-6.10); Red Cell Distribution Width 13.1 % (11.0-15.0); White Blood Count 9.2 10^3/uL (4.0-11.0)
[2024-12-28 22:03] VITALS: BP 149/56
[2024-12-28 22:23] LABS: Anion Gap 13.8; BUN Creatinine Ratio 19.2; Carbon Dioxide 24.8 mmol/L (21.0-32.0); Chloride 100 mmol/L (98-107); Estimated GFR (African America >60 (>=60 mL/min/1.73m^2); Estimated GFR (Non-African Ame >60 (>=60 mL/min/1.73m^2); Potassium 5.6 mmol/L (3.5-5.1); Sodium 133 mmol/L (136-145); Troponin I High Sensitivity 12.2 pg/mL (4.0-76.1)
[2024-12-28 22:25] LABS: Band Neutrophils Absolute 0.2 10^3/uL (0.0-0.3); Basophils Abs Manual 0.09 10^3/uL (0.00-0.10); Lymphocytes Absolute Manual 0.46 10^3/uL (1.20-3.80); Monocytes Absolute Manual 0.09 10^3/uL (0.30-0.80); Segmented Neut Absolute Manual 8.37 10^3/uL (1.4-6.5)
[2024-12-28 22:27] LABS: Glucose 507 mg/dL (74-106)
[2024-12-28] MEDS: KETOROLAC TROMETHAMINE 30 MG/ML VIAL IVP (22:29)
[2024-12-28] MEDS: DIPHENHYDRAMINE HCL 50 MG/ML VIAL IVP (22:32)
[2024-12-28] MEDS: METOCLOPRAMIDE HCL 10 MG/2 ML VIAL IVP (22:33)
== END 2024-12-28 23:00 | disposition home or self-care (01) ==
PROVIDERS: Emergency Provider Internal Medicine; PCP Internal Medicine
DX: R42 Dizziness and giddiness (principal); R51.9 Headache, unspecified; E11.65 Type 2 diabetes mellitus with hyperglycemia; G35 Multiple sclerosis; E11.42 Type 2 diabetes mellitus with diabetic polyneuropathy; Z79.4 Long term (current) use of insulin; F17.200 Nicotine dependence, unspecified, uncomplicated
CPT/HCPCS: 36415; 70450; 80048; 84484; 85007; 85027; 93005; 96374; 96375; 99285; J1200; J1885; J2765

== ENCOUNTER 2025-01-01 18:45 | Emergency (ER) | payer MEDICARE, MEDICAID, SELFPAY ==
[2025-01-01 18:59] VITALS: BP 122/78; PULSE 62; TEMP 37; O2SAT 97; BMI 51.7
--- OUTSIDE RECORDS SUMMARY | 2025-01-01 19:00 | XMS_ITS | CCD ---
Author Organization [facility] Care Team Providers Care Seam Feller Name Role Phone LOREN, DR CARINE Dnois Consulting Unavailabl e LOREN, DR CARINE Donis Admitting Unavailabl e KIRBY, DR PAULA Primary Care Unavailable LOREN, DR CARINE Donis Attending Unavailabl e WEST, DR JORDON Cabezas Consulting Unavailable LOREN, DR CARINE Donis Attending Unavailabl e LOREN, DR CARINE Donis Admitting Unavailabl e KIRBY, DR PAULA Primary Care Unavailable DOREEN, MICHAEL Admitting Unavailable DOREEN, MICHAEL Attending Unavailable DOREEN, MICHAEL Consulting Unavailable KIRBY, DR PAULA Primary Care Unavailable KIRBY, DR PAULA Primary Care Unavailable EITAN, DR VALDIVIA Admitting Unavailable EITAN, DR VALDIVIA Attending Unavailable EITAN, DR VALDIVIA Consulting Unavailable KERLINE CURIEL Consulting Unavailable Keith Amato Unavailable Jordon Gandhi Unavailable MD Nisa Rojas Primary Care Provider RAYMUNDO Grace Attending Provider RAYMUNDO Ross Emergency Provider [phone] DO Nestor Weeks Emergency Provider [phone] DO Erwin Ragsdale Emergency Provider [phone] MD Nisa Rojas Primary Care Provider DO Erwin Ragsdale Emergency Provider [phone] RAYMUNDO Grace Attending Provider DO Nestor Weeks Emergency Provider RAYMUNDO Zavaleta Emergency Provider [phone] RAYMUNDO Ross Emergency Provider [phone] MD Nisa Rojas Primary Care Provider Tupa, DO Nestor M Emergency Provider MD Keith Handley Jr Emergency Provider DAVID Torres Emergency Provider RAYMUNDO Grace Attending Provider DINORAH Hernandez Attending Provider RAYMUNDO Grace Referring Provider MD Nisa Rojas Primary Care Provider ricky, DO Baez M Emergency Provider [phone] DAVID Clark Emergency Provider [phone] MD Aiden Mary Emergency Provider [facility] Emergency Provider Unavailable MD Nisa Rojas Primary Care Provider [phone] ricky, DO Baez M [facility] Nicole Hyde Emergency Provider MD Nisa Rojas Primary Care Provider DO Donato Trevino Emergency Provider Unava MD Naif Kendrick Admit Provider MD Naif Pickett Attending Provider MD Nisa Rojas Primary Care Provider DAVID Clark Emergency Provider DO Dilip Garrison Other Provider MD Aleisha Foster Attending Provider Dr. Nisa Rojas Primary Care [facility] MD Barbara Stout Emergency Provider MD Keith Handley Jr Emergency Provider MD Eh Rock Admit Provider MD Eh Rock Attending Provider DO Adelita Gutierres Other Provider MD Nisa Rojas Primary Care Provider pa, DO Nestor M Emergency Provider MD Aiden Mary Emergency Provider MD Nisa Rojas Primary Care Provider [phone] DO Willow Weeksrick M Emergency Provider DAVID Clark Emergency Provider Jhoana, [facility] Nicole E Emergency Provider MD Nisa Rojas Primary Care Provider DO Donato Trevino Emergency Provider UnaRAYMUNDO Villa Attending Provider DAVID Torres Emergency Provider DO Nestor Weeks M Emergency Provider DO Jeremiah Zavaleta Emergency Provider Jhoana, [facility] Nicole E Emergency Provider [phone] MD Aiden Mary Emergency Provider Nisa Rojas MD Unavailable Nisa Rojas MD Primary Care Provider MD Nisa Rojas Primary Care Provider DO Donato Trevino Emergency Provider MD Nisa Akbar Primary Care Provider DO Donato Trevino Emergency Provider Jodyvajuan r Ely, [facility] Nicole E Emergency Provider DO Nestor Weeks Emergency Provider MD Nisa Rojas Primary Care Provider RAYMUNDO Grace Attending Provider RAYMUNDO Grace Referring Provider MD Barbara Sandoval Emergency Provider DAVID Torres Emergency Provider MD Nisa Rojas Primary Care Provider DO Adelita Gutierres Attending Provider [phone] KALEB Hutton Adela Referring Provider MD Nisa Rojas Primary Care Provider DO Jeremiah Zavaleta Emergency Provider MD Nisa Rojas Primary Care Provider DO Nestor Weeks Emergency Provider MD Nisa Rojas Primary Care Provider [phone] DAVID Torres Emergency Provider [phone] DO Donato Trevino Emergency Provider UnaDO Gabriel Fleming Emergency Provider RAYMUNDO Ross Emergency Provider [phone] Nisa Rojas MD Unavailable Norman DPM, Aiden S Unavailable [phone] Adelita Gutierres DO Unavailable Nisa Rojas MD Primary Care Provider [phone] DAVID Clark Emergency Provider MD Nisa Rojas Attending Provider [phone] MD Nisa Rojas Primary Care Provider MD Keith Handley Jr Emergency Provider Nisa Rojas MD Primary Care Provider Nestor Weeks DO Emergency Provider Donato Trevino DO Emergency Provider UnavaGabriel Farah DO Emergency Provider [phone] Arpan Ross PA-C Emergency Provider Jessica Clark APRN Emergency Provider Nisa Rojas MD Attending Provider Keith Handley MD Emergency Provider Augustina Grace PA-C Attending Provider Augustina Grace PA-C Referring Provider Erwin Ragsdale DO Emergency Provider Bullimore WATER METER READER-BC, Nicole E Emergency Provider [phone] Kirby MELLO, Nisa Primary Care Provider Nestor Weeks DO Emergency Provider Arpan Ross PA-C Emergency Provider Conrad Torres APRN Emergency Provider Eve Shelton APRN Emergency Provider Anny Baez DO Emergency Provider [phone] Rik HALL COORDINATOR-WATER METER READER-C, Yodit Hyde Attending Provider Waqas Andrade DO Emergency Provider Aiden Mary MD Emergency Provider Kirby MELLO, Nisa Primary Care Provider Jessica lCark APRN Emergency Provider Kirby MELLO, Nisa Primary Care Provider Kirby MELLO, Nisa Primary Care Provider Nestor Weeks DO Emergency Provider Keith Handley MD Emergency Provider Kirby MELLO, Nisa Primary Care Provider Kirby MELLO, Nisa Primary Care Provider Nestor Weeks DO Emergency Provider Bull[place] WATER METER READER-BC, Nicole E Emergency Provider Salbador MELLO, Cely Attending Provider Kirby MELLO, Nisa Primary Care Provider Eve Shelton APRN Emergency Provider Anny Baez DO Emergency Provider Nestor Weeks DO Emergency Provider Waqas Andrade DO Emergency Provider [phone] Bullimore WATER METER READER-BC, Nicole E Emergency Provider Cely Siu MD Attending Provider Arpan Ross PA-C Emergency Provider Aiden Mary MD Emergency Provider Keith Handley MD Emergency Provider [phone] Jessica Clrak APRN Emergency Provider Nisa Rojas MD Primary Care Provider [phone] Nisa Rojas MD Attending Provider Nisa Rojas MD Primary Care Provider Arpan Ross PA-C Emergency Provider Nestor Weeks DO Emergency Provider Aiden Mary MD Emergency Provider Nisa Rojas MD Attending Provider Nisa Rojas MD Primary Care Provider Keith Handley MD Emergency Provider Barbara Sandoval MD Emergency Provider Conrad Torres APRN Emergency Provider Nisa Rojas MD Primary Care Provider Keith Handley MD Emergency Provider Arpan Ross PA-C Emergency Provider Jeremiah Zavaleta DO Emergency Provider Clayton Garber PA-C Emergency Provider Malcom Yañez MD Emergency Provider Nisa Rojas MD Primary Care Provider Jessica Clark APRN Emergency Provider Anny Baez DO Emergency Provider Nisa Rojas MD Primary Care Provider [phone] Jessica Clark APRN Emergency Provider Yisel Yañez APRN Emergency Provider Gabriel Berman DO Emergency Provider Kibry MELLO, Nisa Primary Care Provider Nestor Weeks DO Emergency Provider Eve Shelton APRN Emergency Provider Kirby MELLO, Nisa Primary Care Provider [phone] Kirby MELLO, Nisa Primary Care Provider [phone] Nestor Weeks DO Emergency Provider Lesly FONSECA, Augustina Attending Provider [phone] Lesly FONSECA, Augustina Referring Provider NISA ROJAS Attending Unavailable HILL, NISA Che Referring Unavailable MARCO, DONATO Bell Attending Unavailable MARCO, DONATO Bell Referring Unavailable ADELITA GUTIERRES Attending Unavailable HILL, NISA Che Attending Unavailable JULISSA ASHLEY Attending Unavailable LUIS MIGUEL, JUANITO Attending Unavailable FANNY SHARPE Referring Unavailable RISALITI, ADELA Lee Attending Unavailable HILL, NISA Kanika Referring Unavailable HILL, NISA Che Attending Unavailable MARCO, DONATO Bell Attending Unavailable HILL, NISA Che Attending Unavailable HILL, NISA Che Attending Unavailable HILL, NISA Che Attending Unavailable RISALITI, ADELA Lee Attending Unavailable HILL, NISA L Referring Unavailable FANNY SHARPE Attending Unavailable HILL, NISA L Referring Unavailable JOLLY, YODIT Attending Unavailable JOSEFINA SANCHEZ Attending Unavailable HILL, NISA L Referring Unavailable HILL, NISA L Attending Unavailable HILL, NISA L Referring Unavailable BRADY MARY Attending Unavailable JOLLY, YODIT Attending Unavailable HILL, NISA Che Attending Unavailable HILL, NISA Kanika Attending Unavailable HILL, NISA L Referring Unavailable Hill , Nisa Primary Care Provider Aiden Mary MD Emergency Provider [phone] Keith Handley MD Emergency Provider [phone] Nisa Rojas MD Attending Provider [phone] Arpan Ross PA-C Emergency Provider [phone] Barbara Sandoval MD Emergency Provider Conrad Torres APRN Emergency Provider Nestor Weeks DO Emergency Provider Jeremiah Zavaleta DO Emergency Provider Jcarlos FONSECA, Clayton W Emergency Provider [phone] Malcom Yañez MD Emergency Provider Anny Baez DO Emergency Provider [phone] Yisel Yañez APRN Emergency Provider [phone] Gabriel Berman DO Emergency Provider Cat Eve HERNANDEZ Emergency Provider [phone] Saffle HALL COORDINATORJessica Brambila Emergency Provider [phone] Leslychristianne FONSECA, Augustina Attending Provider [phone] Lesly FONSECA, Augustina Referring Provider Eve Shelton Attending Unavailable Cat, Eve M Admitting Unavailable Hill, Nisa Primary Care Unavailable Anny Baez Admitting Unavailable Anny Baez Attending Unavailable Hill, Nisa Primary Care Unavailable Hill, Nisa Primary Care Unavailable Aiden Mary Admitting Unavailable Aiden Mary Attending Unavailable Hill, Nisa Primary Care Unavailable OrssArpan Attending Unavailable RossArpan Admitting Unavailable Garber, Clayton W Admitting Unavailable Hill, Nisa Primary Care Unavailable Garber, Clayton W Attending Unavailable Hill, Nisa Primary Care Unavailable TuNestor garcía Attending Unavailable TuNestor garcía Admitting Unavailable Hill, Nisa Primary Care Unavailable Ross Arpan J Admitting Unavailable RossArpan J Attending Unavailable Melissa, Conrad Attending Unavailable Melissa, Conrad Admitting Unavailable Hill, Nisa Primary Care Unavailable Cat, Eve M Attending Unavailable Hill, Nisa Primary Care Unavailable Cat, Eve M Admitting Unavailable Hill, Nisa Primary Care Unavailable KeGabriel self A Admitting Unavailable KeGabriel self Attending Unavailable Garber, Clayton W Attending Unavailable Garber, Clayton W Admitting Unavailable Hill, Nisa Primary Care Unavailable Keith Handley Jr Admitting Unavailable Keith Handley Jr Attending Unavailable Hill, Nisa Primary Care Unavailable Saffle, Jessica N Attending Unavailable Hill, Nisa Primary Care Unavailable SaffleAlvinaJessica N Admitting Unavailable Melissa, Conrad Attending Unavailable Melissa, Conrad Admitting Unavailable Hill, Nisa Primary Care Unavailable Cat, Eve M Admitting Unavailable Cat, Eve M Attending Unavailable Hill, Nisa Primary Care Unavailable Hill, Nisa Primary Care Unavailable Arpan Ross Attending Unavailable Arpan Ross Admitting Unavailable Hill, Nisa Primary Care Unavailable Vandana, Arpan Bell Admitting Unavailable Ross, Arpan Bell Attending Unavailable Hill, Nisa Primary Care Unavailable Ross, Arpan Bell Attending Unavailable Ross, Arpan Bell Admitting Unavailable Hill, Nisa Primary Care Unavailable Jeremiah Zavaleta Admitting Unavailable Jeremiah Zavaleta Attending Unavailable Keith Handley Jr Attending Unavailable Hill, Nisa Primary Care Unavailable Keith Handley Jr Admitting Unavailable Hill, Nisa Primary Care Unavailable Melissa, Conrad Attending Unavailable Melissa, Conrad Admitting Unavailable Hill, Nisa Primary Care Unavailable Melissa, Conrad Attending Unavailable Melissa, Conrad Admitting Unavailable Keith Handley Jr Attending Unavailable Keith Handley Jr Admitting Unavailable Hill, Nisa Primary Care Unavailable Ross, Arpan Bell Attending Unavailable Ross, Arpan Bell Admitting Unavailable Hill, Nisa Primary Care Unavailable Bullimore, Nicole E Admitting Unavailable Bullglennaore, Nicole E Attending Unavailable Sobieski, Nisa Primary Care Unavailable Jessica Clark Attending Unavailable Sobieski, Nisa Primary Care Unavailable Jessica Clark Admitting Unavailable Hill, Nisa Primary Care Unavailable Nestor Weeks Attending Unavailable Nestor Weeks Admitting Unavailable Hill, Nisa Primary Care Unavailable Arpan Ross Attending Unavailable Arpan Ross Admitting Unavailable Melissa, Conrad Attending Unavailable Melissa, Conrad Admitting Unavailable Sobieski, Nisa Primary Care Unavailable Bullimore, Nicole E Admitting Unavailable Hill, Nisa Primary Care Unavailable Bullimore, Nicole E Attending Unavailable NeileJessica N Attending Unavailable NeileJessica N Admitting Unavailable Hill, Nisa Primary Care Unavailable SafmindieJessica Attending Unavailable Saffle, Jessica N Admitting Unavailable Hill, Nisa Primary Care Unavailable Hill, Nisa Primary Care Unavailable Aiden Mary Admitting Unavailable Aiden Mary Attending Unavailable Hill, Nisa Primary Care Unavailable Keith Handley Jr Attending Unavailable Keith Handley Jr Admitting Unavailable Hill, Nisa Primary Care Unavailable Keith Handley Jr Attending Unavailable Keith Handley Jr Admitting Unavailable Hill, Nisa Primary Care Unavailable Aiden Mary Admitting Unavailable Aiden Mary Attending Unavailable Sobieski, Nisa Primary Care Unavailable Melissa, Conrad Admitting Unavailable Melissa, Conrad Attending Unavailable Sobieski, Nisa Primary Care Unavailable Aiden Mary Admitting Unavailable Aiden Mary Attending Unavailable Anny Baez Attending Unavailable Hill, Nisa Primary Care Unavailable Anny Baez Admitting Unavailable Waqas Andrade Attending Unavailabl e Hill, Nisa Primary Care Unavailable Waqas Andrade Admitting Unavailabl e Hill, Nisa Primary Care Unavailable Trevino, Donato Stafford Attending Unavailable Donato Trevino Admitting Unavailable Hill, Nisa Admitting Unavailable Hill, Nisa Primary Care Unavailable Hill, Nisa Attending Unavailable Conrad Torres Attending Unavailable Hill, Nisa Primary Care Unavailable Melissa, Conrad Admitting Unavailable Hill, Nisa Primary Care Unavailable Keister, Gabriel Berry Attending Unavailable KeGabriel self Admitting Unavailable Hill, Nisa Primary Care Unavailable Tupa, Nestor M Attending Unavailable Tupa, Nestor M Admitting Unavailable Hill, Nisa Primary Care Unavailable Aiden Mary Admitting Unavailable Aiden Mary Attending Unavailable Lesly, Augustina Attending Unavailable Lesly, Augustina Referring Unavailable Lesly, Augustina Admitting Unavailable Hill, Nisa Primary Care Unavailable Tupa, Nestor M Attending Unavailable Tupa, Nestor M Admitting Unavailable Hill, Nisa Primary Care Unavailable Hill, Nisa Primary Care Unavailable Tupa, Nestor M Attending Unavailable Tupa, Nestor M Admitting Unavailable Hill, Nisa Primary Care Unavailable Tupa, Nestor M Attending Unavailable Tupa, Nestor M Admitting Unavailable Hill, Nisa Primary Care Unavailable Tupa, Nestor M Attending Unavailable Tupa, Nestor M Admitting Unavailable Hill, Nisa Primary Care Unavailable Tupa, Nestor M Attending Unavailable Tupa, Nestor M Admitting Unavailable Hill, Nisa Admitting Unavailable Hill, Nisa Attending Unavailable Hill, Nisa Primary Care Unavailable Tupa, Nestor M Admitting Unavailable Tupa, Nestor M Attending Unavailable Hill, Nisa Primary Care Unavailable Hill, Nisa Primary Care Unavailable Tupa, Nestor M Admitting Unavailable Tupa, Nestor M Attending Unavailable Hill, Nisa Primary Care Unavailable Tupa, Nestor M Attending Unavailable Tupa, Nestor M Admitting Unavailable Hill, Nisa Primary Care Unavailable Tupa, Nestor M Attending Unavailable Tupa, Nestor M Admitting Unavailable Bullimore, Nicole E Attending Unavailable Bullimore, Nicole E Admitting Unavailable Hill, Nisa Primary Care Unavailable Bullimore, Nicole E Admitting Unavailable Bullimore, Nicole E Attending Unavailable Hill, Nisa Primary Care Unavailable Melissa, Conrad Attending Unavailable Melissa, Conrad Admitting Unavailable Hill, Nisa Primary Care Unavailable Melissa, Conrad Attending Unavailable Conrad Torres Admitting Unavailable Hill, Nisa Primary Care Unavailable Hill, Nisa Primary Care Unavailable Aiden Mary Admitting Unavailable Aiden Mary Attending Unavailable Nicole Ely Admitting Unavailable Hill, Nisa Primary Care Unavailable Jhoana, Nicole Hyde Attending Unavailable Hill, Nisa Primary Care Unavailable Arpan Ross Attending Unavailable Arpan Ross Admitting Unavailable Hill, Nisa Primary Care Unavailable Barbara Sandoval Attending Unavailable Barbara Sandoval Admitting Unavailable Hill, Nisa Primary Care Unavailable Tupa, Nestor M Attending Unavailable Tupa, Nestor M Admitting Unavailable Hill, Nisa Primary Care Unavailable Tupa, Nestor M Attending Unavailable Tupa, Nestor M Admitting Unavailable Hill, Nisa Primary Care Unavailable Tupa, Nestor M Attending Unavailable Tupa, Nestor M Admitting Unavailable Hill, Nisa Primary Care Unavailable Tupa, Nestor M Attending Unavailable Tupa, Nestor M Admitting Unavailable Malcom Yañez Attending Unavailable Hill, Nisa Primary Care Unavailable Malcom Yañez Admitting Unavailable Hill, Nisa Primary Care Unavailable Tupa, Nestor M Attending Unavailable Tupa, Nestor M Admitting Unavailable Hill, Nisa Primary Care Unavailable Tupa, Nestor M Attending Unavailable Tupa, Nestor M Admitting Unavailable Hill, Nisa Primary Care Unavailable Tupa, Nestor M Attending Unavailable Tupa, Nestor M Admitting Unavailable Yisel Yañez Attending Unavailable Hill, Nisa Primary Care Unavailable Otilio Yisel M Admitting Unavailable Hill, Nisa Primary Care Unavailable Tupa, Nestor M Attending Unavailable Tupa, Nestor M Admitting Unavailable Hill, Nisa Primary Care Unavailable Tupa, Nestor M Attending Unavailable Tupa, Nestor M Admitting Unavailable Hill, Insa Primary Care Unavailable Tupa, Nestor M Attending Unavailable Tupa, Nestor M Admitting Unavailable Hill, Nisa Primary Care Unavailable Tupa, Nestor M Attending Unavailable Tupa, Nestor M Admitting Unavailable Hill, Nisa Primary Care Unavailable Tupa, Nestor M Attending Unavailable Tupa, Nestor M Admitting Unavailable Hill, Nisa Primary Care Unavailable Tupa, Nestor M Attending Unavailable Tupa, Nestor M Admitting Unavailable Hill, Nisa Primary Care Unavailable Tupa, Nestor M Attending Unavailable Tupa, Nestor M Admitting Unavailable Hill, Nisa Primary Care Unavailable Tupa, Nestor M Attending Unavailable Tupa, Nestor M Admitting Unavailable Hill, Nisa Primary Care Unavailable Tupa, Nestor M Attending Unavailable Tupa, Nestor M Admitting Unavailable Hill, Nisa Primary Care Unavailable Kearamis, Gabriel Berry Admitting Unavailable Cullen, Gabriel Berry Attending Unavailable Hill, Nisa Admitting Unavailable Hill, Nisa Primary Care Unavailable Hill, Nisa Attending Unavailable Hill, Nisa Primary Care Unavailable Adela Hutton Referring Unavailable Adelita Gutierres Admitting Unavailab le Bhavik, Adelita Stafford Attending Unavailab le Jolly, Yodit E Attending Unavailable Hill, Nisa Primary Care Unavailable Jolly, Yodit E Admitting Unavailable Hill, Nisa Primary Care Unavailable Asaad, Imad Attending Unavailable Asaad, Imad Admitting Unavailable Hill, Nisa Primary Care Unavailable Melissa, Conrad Attending Unavailable Melissa, Conrad Admitting Unavailable Hill, Nisa Primary Care Unavailable Vandana, Arpan Bell Admitting Unavailable Vandana, Arpan Bell Attending Unavailable Hill, Nisa Admitting Unavailable Hill, Nisa Primary Care Unavailable Hill, Nisa Attending Unavailable Erwin Ragsdale Attending Unavailable Hill, Nisa Primary Care Unavailable Erwin Ragsdale Admitting Unavailable NeileJessica N Attending Unavailable Hill, Nisa Primary Care Unavailable Saffle, Jessica N Admitting Unavailable Hill, Nisa Primary Care Unavailable Saffle, Jessica N Attending Unavailable Saffle, Jessica N Admitting Unavailable Keith Handley Jr Admitting Unavailable Keith Handley Jr Attending Unavailable Hill, Nisa Primary Care Unavailable Jeremiah Zavaleta M Admitting Unavailable Jeremiah Zavaleta M Attending Unavailable Hill, Nisa Primary Care Unavailable GarberClayton W Attending Unavailable Garber, Clayton W Admitting Unavailable Hill, Nisa Primary Care Unavailable Westley Yañezeem Admitting Unavailable Malcom Yañez Attending Unavailable Hill, Nisa Primary Care Unavailable Garber, Clayton W Attending Unavailable Garber, Clayton W Admitting Unavailable Hill, Nisa Primary Care Unavailable Meghann DO, Jeremiah M Emergency Provider Unavailable Allergies Allergy Classification Reported Allergen(s) Allergy Type Date of Onset Reaction(s) Facility (2 sources) DULoxetine Drug Allergy intolerance [facility] Other (2 sources) LORazepam Drug Allergy patient notes he is not allergic to this [facility] Other (20 sources) DULoxetine Drug Allergy 2 [facility] (20 sources) natalizumab Drug Allergy 5 [facility] (2 sources) Other Allergy to substance 2 [facility] (20 sources) Semaglutide Propensity to adverse reactions 1 [facility] (1 source) DULoxetine Drug Allergy 5 [facility] (1 source) oxyCODONE Drug Allergy 4 [facility] Medications Current Medications Medication Drug Class(es) Dates Sig (Normalized) Sig (Original) acetaminophen 325 mg / butalbital 50 mg / caffeine 40 mg oral tablet (3 sources) Barbiturate, Central Nervous System Stimulant, Methylxanthine Start: 12-30-2024 take 1 tablet by mouth every six hours for headache butalbital-acetam inophen-caffeine 50-325-40 MG tablet Indications: Intractable migraine without aura and with status migrainosus (CMS/HCC) Take 1 tablet by mouth every 6 (six) hours if needed for headaches Use no more than 5/day, 10/week, 30/month. 35 tablet 12/30/2024 Active acetaminophen 325 mg / oxyCODONE hydrochloride 5 mg oral tablet (20 sources) Opioid Agonist Start: 08-17-2024 End: 11-20-2024 Start: 08-12-2024 End: 12-27-2024 take 1-2 tablets by mouth every six hours for pain oxyCODONE-acetaminophen (Percocet) 5-325 MG tablet Indications: Spinal stenosis in cervical region Take 1-2 tablets by mouth every 6 (six) hours if needed for severe pain 90 tablet 12/27/2024 Active Start: 07-15-2024 End: 07-17-2024 Start: 07-15-2024 End: 07-17-2024 take 1 tablet by mouth every four to six hours as needed for pain Oxycodone-Acetaminophen (Percocet) 5-325 mg tablet Discontinued 1 TAB PO EVERY 4-6 HOURS as needed for pain 10 3 July 15, 2024 July 17, 2024 3:44pm Percocet Active [id number] 200 actuat albuterol 0.09 mg/actuat metered dose inhaler (20 sources) beta2-Adrenergic Agonist Start: 07-11-2021 take 2 puff(s) by inhalation every four hours as needed Albuterol Sulfate HFA 108 (90 Base) MCG/ACT 2 puffs Inhalation every 4 hours as needed for 7 days Jul, Active Start: 11-22-2019 take 2 puff(s) by in halation every six hours as needed ProAir HFA 108 (90 Base) MCG/ACT 2 puffs Inhalation every 6 hrs as needed Nov, Not-Taking Start: 04-13-2017 End: 07-03-2017 Start: 04-13-2017 End: 07-03-2017 Albuterol Sulfate 90 mcg/act uation HFA aerosol inhaler Discontinued 2 INH INHALATION every 6 to 8 hours April 13, 2017 12:00am July 03, 2017 7:56pm administer with spacer ALPRAZolam 0.5 mg oral tablet (20 sources) Benzodiazepine Start: 11-12-2024 take 1 tablet by mouth twice daily as needed for anxiety ALPRAZolam (Xanax) 0.5 MG tablet Indications: Generalized anxiety disorder (CMS/HCC) Take 1 tablet (0.5 mg) by mouth 2 (two) times a day as needed for anxiety 60 tablet 11/12/2024 Active Start: 10-12-2024 take 1 tablet by des th twice daily as needed for anxiety ALPRAZolam (Xanax) 0.5 MG tablet Indications: Generalized anxiety disorder (CMS/HCC) Take 1 tablet (0.5 mg) by mouth 2 (two) times a day as needed for anxiety 60 tablet 10/12/2024 Active Start: 08-31-2024 take 1 tablet by des th twice daily as needed for anxiety ALPRAZolam (Xanax) 0.5 MG tablet Indications: Generalized anxiety disorder (CMS/HCC) Take 1 tablet (0.5 mg) by mouth 2 (two) times a day as needed for anxiety 60 tablet 08/31/2024 Active Start: 05-15-2024 End: 06-13-2024 Alprazolam 0.25 mg tablet Discontinued MG TABLET May 15, 2024 12:00am June 13, 2024 12:07pm Start: 05-15-2024 Alprazolam Act dinesh MG TABLET May 15, 2024 12:00am Start: 05-12-2024 End: 08-31-2024 amitriptyline hydrochloride 25 mg oral tablet (20 sources) Tricyclic Antidepressant Start: 05-15-2024 Start: 05-15-2024 Amitriptyline Active MG TABLET May 15, 2024 12:00am Start: 04-29-2024 End: 10-26-2024 take 1 tablet by mouth at bedtime amitriptyline (Elavil) 25 MG tablet Indications: Polyneuropathy associated with underlying disease (CMS/HCC) Take 1 tablet (25 mg) by mouth at bedtime 30 tablet 5 04/29/2024 Active ARIPiprazole 5 mg oral tablet (20 sources) Atypical Antipsychotic Start: 07-20-2024 take 1 tablet by mouth once daily ARIPiprazole (Abilify) 5 MG tablet Indications: Bipolar 1 disorder, mixed (CMS/HCC) Take 1 tablet (5 mg) by mouth Daily 30 tablet 5 07/20/2024 Active Start: 07-18-2023 End: 05-25-2024 take 1 tablet by mouth in the morning ARIPiprazole (Abilify) 5 MG tablet Indications: Mixed bipolar affective disorder, moderate (CMS/HCC) Take 1 tablet (5 mg) by mouth in the morning. 90 tablet 3 07/18/2023 05/25/2024 Discontinued Start: 12-24-2021 End: 11-29-2022 Cannabinoids (medical cannab is) (20 sources) Cannabinoids (me dical cannabis) Medical Marijuana Active Cannabinoids (me dical cannabis) Medical Marijuana 0 Active cephalexin 500 mg oral capsule (20 sources) Cephalosporin Antibacterial Start: 07-20-2024 End: 07-30-2024 take 1 capsule by mouth in the morning cephalexin (Keflex) 500 MG capsule Indications: Cellulitis of hand, right Take 1 capsule (500 mg) by mouth in the morning and 1 capsule (500 mg) before bedtime. Do all this for 10 days. 20 capsule 07/20/2024 07/30/2024 Active Start: 03-20-2023 End: 06-27-2023 Start: 07-14-2020 End: 10-20-2020 take 1 capsule by mouth four times daily Cephalexin (Keflex) 500 mg capsule Discontinued 500 MG PO Four times daily July 14, 2020 2:14pm October 20, 2020 7:43am Start: 04-28-2020 End: 10-20-2020 citric acid 75 mg/ml / magnesium oxide 21.9 mg/ml / picosulfate sodium 0.0625 mg/ml oral solution (1 source) Calculi Dissolution Agent, Anti-coagulant Start: 09-03-2021 take 160 mL by mouth in the evening, then take 160 mL by mouth twice daily in the evening Clenpiq 10-3.5-12 MG-GM -GM/160ML 160 ML AT 3:00 PM AND 160 ML AT 9:00 PM Orally TWICE A DAY for 1 days PLEASE CHECK ALLERGIES Aug, Active cyclobenzaprine hydrochloride 10 mg oral tablet (20 sources) Muscle Relaxant Start: 11-06-2024 take 1 tablet by mouth twice daily as needed for muscle spasms cyclobenzaprine (Flexeril) 10 MG tablet Indications: Muscle spasm Take 1 tablet (10 mg) by mouth 2 (two) times a day as needed for muscle spasms for up to 10 days 20 tablet 11/06/2024 Active Start: 06-18-2024 End: 07-10-2024 Start: 06-18-2024 End: 07-10-2024 take 1 tablet by mouth three times daily as needed for muscle spasms Cyclobenzaprine 10 mg tablet Discontinued 10 MG PO Three times daily as needed for muscle spasm June 18, 2024 1:00am July 10, 2024 11:12am Start: 07-26-2019 take 1 tablet by des th three times daily as needed Cyclobenzaprine HCl 10 MG 1 tablet Orally tid as needed for 30 day(s) Jul, Active Start: 02-04-2018 End: 02-26-2018 Start: 02-04-2018 End: 02-26-2018 take 1 tablet by mouth three times daily as needed for muscle spasms Cyclobenzaprine 10 mg tablet Discontinued 10 MG PO .tid prn as needed for muscle spasm 10 3 February 04, 2018 12:00am February 26, 2018 11:26pm Diclofenac (20 sources) Nonsteroidal Anti-inflammatory Drug Start: 11-24-2024 Diclofenac Sodium (Arthritis Pain (Diclofenac)) 1 % gel Active 4 GM TOPICAL Four times daily November 24, 2024 12:00am apply to single knee, ankle, foot; for foot includes sole/toes/top of foot Start: 06-18-2024 End: 07-22-2024 apply 4 g topically four times daily Diclofenac Sodium 1 % gel Discontinued 4 GM TOPICAL Four times daily June 18, 2024 1:00am July 22, 2024 2:47pm apply to single knee, ankle, foot; for foot includes sole/toes/top of foot Start: 06-18-2024 End: 07-22-2024 apply 4 g topically four times daily Diclofenac Sodium 1 % gel Discontinued 4 GM TOPICAL Four times daily June 18, 2024 12:00am July 22, 2024 1:47pm apply to single knee, ankle, foot; for foot includes sole/toes/top of foot Start: 06-18-2024 apply 4 g topically four times daily Diclofenac Sodium 1 % gel Active 4 GM TOPICAL Four times daily June 18, 2024 12:00am apply to single knee, ankle, foot; for foot includes sole/toes/top of foot Start: 05-19-2024 End: 05-19-2025 Start: 03-11-2023 End: 06-27-2023 Start: 01-26-2020 End: 07-20-2022 Start: 01-26-2020 End: 07-20-2022 apply 4 g topically four times daily Diclofenac Sodium Discontinued 4 GM TOPICAL Four times daily January 26, 2020 12:00am July 20, 2022 8:39pm Start: 09-01-2019 End: 07-20-2022 Start: 08-18-2019 End: 07-20-2022 take 1 tablet by mouth twice daily as needed for pain Diclofenac Sodium 75 mg Tablet,Delayed Release (Dr/Ec) Discontinued 75 MG PO Twice daily as needed for pain December 23, 2020 11:45am July 20, 2022 8:39pm ergocalciferol 1.25 mg oral capsule (20 sources) Provitamin D2 Compound Start: 12-30-2024 take 1 capsule by mouth every week ergocalciferol (Vitamin D-2) 1.25 MG (98396 UT) capsule Indications: Vitamin D deficiency Take 1 capsule (1.25 mg) by mouth 1 (one) time per week 12 capsule 3 12/30/2024 Active Start: 12-03-2024 End: 12-30-2024 take 1 capsule by mouth three times weekly ergocalciferol (Vitamin D-2) 1.25 MG (61000 UT) capsule Indications: Vitamin D deficiency Take 1 capsule (1.25 mg) by mouth 3 (three) times a week 36 capsule 3 12/03/2024 12/30/2024 Discontinued (Reorder) Start: 05-27-2024 take 1 capsule by mo ut two times weekly ergocalciferol (Vitamin D-2) 1.25 MG (15584 UT) capsule Indications: Vitamin D deficiency Take 1 capsule (1.25 mg) by mouth 2 (two) times a week 16 capsule 05/27/2024 Active Start: 08-05-2023 take 1 capsule by mo uth two times weekly ergocalciferol (Vitamin D-2) 1.25 MG (95446 UT) capsule Indications: Vitamin D deficiency Take 1 capsule (1.25 mg) by mouth 2 (two) times a week 16 capsule 0 08/05/2023 Active Start: 01-25-2015 take 1 capsule by mo ut every week ergocalciferol, vitamin D2, (VITAMIN D) 50,000 unit capsule Take 1 capsule by mouth once each week. 4 capsule 2 01/25/2015 Active fluconazole 100 mg oral tablet (9 sources) Azole Antifungal Start: 12-06-2024 take 1 tablet by mouth once daily fluconazole (Diflucan) 100 MG tablet Indications: Fungal infection Take 1 tablet (100 mg) by mouth Daily 7 tablet 12/06/2024 Active FreeStyle Jazmín 14 Day Sensor - (2 sources) Start: 10-19-2019 FreeStyle Jazmín 14 Day Sensor - 1 sensor as directed for testing 5 times daily for 90 days *please review for potential _update for e-prescription and drug interaction check* Oct, Active FreeStyle Jazmín [place] - (2 sources) Start: 10-19-2019 FreeStyle Jazmín [place] - 1 reader as directed daily *please review for potential _update for e-prescription and drug interaction check* Oct, Active Glucose Monitoring Sensor (2 sources) Start: 01-25-2020 Glucose Monitoring Sensor *please review for potential _update for e-prescription and drug interaction check* Jazmín glucose monitor or compariable Jan, Active hydroCHLOROthiazide 12.5 mg oral tablet (20 sources) Thiazide Diuretic Start: 11-20-2024 End: 11-24-2024 take 1 tablet by mouth once daily hydroCHLOROthiazide (HYDRODiuril) 12.5 MG tablet Take 12.5 mg by mouth Daily 11/20/2024 Active Start: 11-28-2023 End: 05-25-2024 take 1 tablet by mouth once daily hydroCHLOROthiazide (HYDRODiuril) 25 MG tablet Indications: Essential hypertension (CMS/HCC) TAKE 1 TABLET BY MOUTH DAILY 90 tablet 3 11/28/2023 05/25/2024 Discontinued Start: 06-28-2023 End: 05-15-2024 Start: 06-28-2023 take 1 mg by mouth o nce daily Hydrochlorothiazide Active MG PO Daily June 28, 2023 12:00am Start: 03-11-2023 End: 06-27-2023 Start: 08-18-2019 End: 11-29-2022 ibuprofen 800 mg oral tablet (20 sources) Nonsteroidal Anti-inflammatory Drug Start: 11-08-2024 take 1 tablet by mouth three times daily as needed for pain ibuprofen 800 MG tablet Indications: Primary osteoarthritis involving multiple joints Take 1 tablet (800 mg) by mouth 3 (three) times a day as needed for mild pain 60 tablet 1 11/08/2024 Active Start: 07-10-2024 Start: 06-29-2024 End: 09-16-2024 take 1 tablet by mouth three times daily as needed for pain ibuprofen 800 MG tablet Indications: Primary osteoarthritis involving multiple joints Take 1 tablet (800 mg) by mouth 3 (three) times a day as needed for mild pain 60 tablet 1 11/08/2024 Active Start: 10-12-2017 End: 11-26-2017 Insulin Aspart U-100 (Novolo g Flexpen U-100 Insulin) 100 unit/mL (3 mL) Insulin Pen (20 sources) Start: 12-24-2021 Insulin Aspart U-100 (Novolog Flexpen U-100 Insulin) 100 unit/mL (3 mL) Insulin Pen Active 0 UNIT SUBCUT Three times daily December 24, 2021 12:00am SLIDING SCALE. Please contact the information source for Protocol details. Start: 12-24-2021 Insulin Aspart U-100 (Novolog Flexpen U-100 Insulin) 100 unit/mL (3 mL) Insulin Pen Active 0 UNIT SUBCUT Three times daily December 23, 2021 11:00pm SLIDING SCALE. Please contact the information source for Protocol details. Start: 12-24-2021 Insulin Aspart U-100 (Novolog Flexpen U-100 Insulin) 100 unit/mL (3 mL) Insulin Pen Active 0 UNIT SUBCUT Three times daily December 23, 2021 11:00pm SLIDING SCALE. Start: 12-24-2021 Insulin Aspart U-100 (Novolog Flexpen U-100 Insulin) 100 unit/mL (3 mL) Insulin Pen Active 0 UNIT SUBCUT Three times daily December 24, 2021 12:00am SLIDING SCALE. Start: 12-24-2021 Insulin Aspart U-100 (Novolog Flexpen U-100 Insulin) 100 unit/mL (3 mL) Insulin Pen Active 0 UNIT SUBCUT Three times daily December 23, 2021 11:00pm Start: 12-24-2021 Insulin Aspart U-100 (Novolog Flexpen U-100 Insulin) 100 unit/mL (3 mL) Insulin Pen Active 0 UNIT SUBCUT Three times daily December 24, 2021 12:00am 3 ml insulin aspart, human 100 unt/ml pen injector (20 sources) Insulin Analog Start: 08-16-2024 insulin aspart (NovoLOG FLEXPEN) 100 UNIT/ML pen Indications: Type 2 diabetes mellitus with stage 2 chronic kidney disease, with long-term current use of insulin ([facility]) Inject 60 Units under the skin See administration instructions Injection per sliding scale 10 mL 3 08/16/2024 Active Start: 08-07-2017 End: 12-24-2021 Insulin Aspart U-100 Discont inued 1 UNIT SUBCUT As Directed August 07, 2017 12:00am December 24, 2021 4:34pm Start: 08-07-2017 End: 12-24-2021 Insulin Aspart U-100 Discont inued 1 UNIT SUBCUT As Directed August 07, 2017 1:00am December 24, 2021 5:34pm insulin aspart ( NovoLOG FLEXPEN) 100 UNIT/ML pen Inject under the skin See administration instructions Injection per sliding scale Active insulin aspart ( NovoLOG FLEXPEN) 100 UNIT/ML pen Inject 40 Units under the skin See administration instructions. Injection per sliding scale 0 Active NovoLOG FlexPen 100 UNIT/ML INJECT SUBCUTANEOUSLY PER SLIDING SCALE DIRECTED UP TO 40 UNITS DAILY (DISCARD AND BEGIN NEW PEN AFTER 28 DAYS) 12/17/19-pt. taking 10-18u tid w/ meals, told to increase by 5-10u tid w/ meals to see if this brings down bs Active 3 ml insulin degludec 200 unt/ml pen injector (20 sources) Insulin Analog Start: 08-16-2024 insulin deglud ec (Tresiba FlexTouch) 200 UNIT/ML injection Indications: Type 2 diabetes mellitus with stage 2 chronic kidney disease, with long-term current use of insulin (CMS/HCC) Inject 100 Units under the skin at bedtime 36 mL 3 08/16/2024 Active Start: 07-02-2023 Tresiba FlexTo uch 200 UNIT/ML injection Indications: Type 2 diabetes mellitus with stage 2 chronic kidney disease, with long-term current use of insulin (CMS/HCC) INJECT 100 UNITS SUBCUTANEOUSLY EVERY DAY 36 mL 3 07/02/2023 Active Start: 07-14-2020 Insulin Deglud ec (Tresiba Flextouch U-200) 200 unit/mL (3 mL) insulin pen Active 100 UNIT SUBCUT Daily July 14, 2020 12:00am Tresiba U-100 so lution injectable Active Insulin Degludec (Tresiba Flextouch U-200) 200 unit/mL (3 mL) insulin pen (20 sources) Start: 07-14-2020 Insulin Deglud ec (Tresiba Flextouch U-200) 200 unit/mL (3 mL) insulin pen Active 100 UNIT SUBCUT Every morning July 14, 2020 12:00am Start: 07-14-2020 Insulin Deglud ec (Tresiba Flextouch U-200) 200 unit/mL (3 mL) insulin pen Active 100 UNIT SUBCUT Every morning July 14, 2020 1:00am Start: 07-14-2020 Insulin Deglud ec (Tresiba Flextouch U-200) 200 unit/mL (3 mL) insulin pen Active 100 UNIT SUBCUT Daily July 14, 2020 1:00am Start: 07-14-2020 Insulin Deglud ec (Tresiba Flextouch U-200) 200 unit/mL (3 mL) insulin pen Active 100 UNIT SUBCUT Daily July 14, 2020 12:00am irbesartan 300 mg oral tablet (20 sources) Angiotensin 2 Receptor Yamilex Start: 03-11-2023 End: 12-31-2024 take 1 tablet by mouth once daily irbesartan (Avapro) 300 MG tablet Indications: Essential hypertension (CMS/HCC) TAKE 1 TABLET BY MOUTH DAILY 90 tablet 6 12/31/2024 Active Start: 08-18-2019 End: 11-29-2022 take 1 tablet by mouth once daily Irbesartan 300 mg Tablet Discontinued 300 MG PO Daily January 26, 2020 12:00am November 29, 2022 11:54am ketoconazole 20 mg/ml topical cream (1 source) Azole Antifungal Start: 12-19-2014 ketoconazole (NIZORAL) 2 % cream Apply to rash on thighs twice daily until rash is gone. 60 g 1 12/19/2014 Active meclizine hydrochloride 25 mg oral tablet (20 sources) Antiemetic Start: 12-29-2024 End: 12-29-2025 take 1 tablet by mouth every eight hours for dizziness meclizine (Antivert) 25 MG tablet Indications: Vertigo Take 1 tablet (25 mg) by mouth every 8 (eight) hours if needed for dizziness 30 tablet 12/29/2024 12/29/2025 Active Start: 03-20-2023 End: 06-27-2023 methocarbamol 750 mg oral ta blet (20 sources) Muscle Relaxant Start: 08-17-2024 Start: 06-13-2024 End: 07-13-2024 Start: 05-28-2024 End: 09-16-2024 take 1-2 tablets by mouth three times daily as needed for muscle spasms methocarbamol (Robaxin) 750 MG tablet Indications: Spasm of muscle of lower back Take 1-2 tablets (750-1,500 mg) by mouth 3 (three) times a day as needed for muscle spasms 120 tablet 3 09/16/2024 Active Start: 12-26-2023 take 1-2 tablets by mouth three times daily as needed for muscle spasms methocarbamol (Robaxin) 750 MG tablet Indications: Spasm of muscle of lower back Take 1-2 tablets (750-1,500 mg) by mouth 3 (three) times a day as needed for muscle spasms 120 tablet 2 12/26/2023 Active Start: 06-28-2023 End: 05-15-2024 Start: 06-28-2023 End: 05-15-2024 take 1 tablet by mouth once daily Methocarbamol 750 mg tablet Discontinued 750 MG PO Daily June 28, 2023 1:00am May 15, 2024 3:17pm Start: 06-28-2023 Methocarbamol Active MG TABLET June 28, 2023 12:00am 24 hr metoprolol succinate 100 mg extended release oral tablet (20 sources) beta-Adrenergic Yamilex Start: 05-18-2024 take 1 tablet by mouth once daily metoprolol succinate XL (Toprol-XL) 100 MG 24 hr tablet Indications: Essential (primary) hypertension (CMS/HCC) TAKE 1 TABLET BY MOUTH EVERY DAY 90 tablet 3 05/18/2024 Active Start: 05-15-2024 metoprolol tar trate Active May 14, 2024 11:00pm Start: 05-15-2024 metoprolol tar trate Active May 15, 2024 12:00am Start: 04-19-2024 End: 04-29-2024 metoprolol succinate Discont inued PO April 18, 2024 11:00pm April 29, 2024 5:33am Start: 04-19-2024 End: 04-29-2024 metoprolol succinate Discont inued PO April 19, 2024 12:00am April 29, 2024 6:33am Start: 04-19-2024 metoprolol suc cinate Active PO April 19, 2024 12:00am Start: 03-11-2023 End: 06-27-2023 Start: 04-13-2017 End: 04-19-2019 Start: 04-13-2017 End: 04-19-2019 take 50 mg by mouth once daily Metoprolol Succinate Di scontinued 50 MG PO Daily April 13, 2017 12:00am April 19, 2019 9:58pm take 1 tablet by des th once daily, then take 1 tablet by mouth every twenty-four hours metoprolol succinate XL, long acting, (TOPROL XL) 25 mg 24 hr tablet Take 25 mg by mouth once daily. Active nystatin 100 unt/mg topical powder (20 sources) Polyene Antifungal Start: 12-05-2024 nystatin (M ycostatin) 584907 UNIT/GM powder Four times daily 12/05/2024 Active Start: 12-05-2024 Start: 12-05-2024 Nystatin 100,0 00 unit/gram powder Active 1 APPLIC TOPICAL Four times daily 15 02December 05, 2024 12:00am 10 ml ocrelizumab 30 mg/ml i njection (20 sources) ocrelizumab (Ocr evus) 300 MG/10ML solution Infuse 600 mg into a venous catheter every 6 (six) months to absorb continuously Active ocrelizumab (Ocr evus) 300 MG/10ML solution Infuse 10 mL into a venous catheter every 6 (six) months to absorb continuously. Active penicillin v potassium 500 mg oral tablet (12 sources) Start: 07-15-2023 take 500 mg by mouth twice daily Penicillin V Potassium Active 500 MG PO Twice daily 23 05July 15, 2023 1:00am podofilox 5 mg/ml topical solution (1 source) Start: 06-16-2015 Podofilox (POD OFILOX) 0.5 % external solution Apply to lesions twice daily x 3 days on, then 4 days off. 3.5 mL 3 06/16/2015 Active pregabalin 300 mg oral capsule (20 sources) Start: 07-12-2024 End: 07-20-2024 take 2 capsules by mouth at bedtime as needed for pain, then take 1 capsule by mouth once daily as needed for pain pregabalin (Lyrica) 150 MG capsule Indications: Chronic right-sided low back pain without sciatica Take 2 capsules (300 mg) by mouth at bedtime. May also take 1 capsule (150 mg) Daily as needed (pain). 65 capsule 2 07/12/2024 07/20/2024 Discontinued (Other) Start: 05-25-2024 End: 11-21-2024 take 1 capsule by mouth in the morning, then take 1 capsule by mouth in the evening, then take 1 capsule by mouth at bedtime pregabalin (Lyrica) 100 MG capsule Indications: Polyneuropathy associated with underlying disease (CMS/HCC) Take 1 capsule (100 mg) by mouth in the morning and 1 capsule (100 mg) in the evening and 1 capsule (100 mg) before bedtime. 90 capsule 5 05/25/2024 06/16/2024 Discontinued (Therapy completed) Start: 04-29-2024 Pregabalin 300 mg capsule Active 200 MG PO Bedtime April 28, 2024 11:00pm Start: 02-09-2024 End: 01-16-2025 take 1 capsule by mouth in the morning pregabalin (Lyrica) 300 MG capsule Indications: Polyneuropathy associated with underlying disease (CMS/HCC) Take 1 capsule (300 mg) by mouth in the morning and 1 capsule (300 mg) before bedtime. 60 capsule 5 07/20/2024 01/16/2025 Active Start: 08-11-2023 End: 11-09-2023 take 1 capsule by mouth in the morning pregabalin (Lyrica) 300 MG capsule Indications: Polyneuropathy due to type 2 diabetes mellitus (CMS/HCC) Take 1 capsule (300 mg) by mouth in the morning and 1 capsule (300 mg) before bedtime. 60 capsule 2 08/11/2023 11/09/2023 Active Start: 03-11-2023 End: 05-15-2024 take 1 capsule by mouth once daily at bedtime Pregabalin 200 mg capsule Discontinued 200 MG PO Daily at bedtime March 11, 2023 12:00am May 15, 2024 3:16pm rimegepant 75 mg disintegrating oral tablet (6 sources) Start: 12-24-2024 take 1 tablet by mouth every other day Rimegepant Sulfate (Nurtec) 75 MG tablet dispersible Indications: History of migraine headaches Take 75 mg by mouth every other day 12/24/2024 Active rosuvastatin calcium 20 mg oral tablet (20 sources) HMG-CoA Reductase Inhibitor Start: 12-02-2024 End: 06-28-2025 take 1 tablet by mouth at bedtime rosuvastatin (Crestor) 20 MG tablet Indications: Mixed hyperlipidemia (CMS/HCC) Take 1 tablet (20 mg) by mouth at bedtime 90 tablet 3 12/30/2024 06/28/2025 Active Start: 07-18-2023 take 1 tablet by des th at bedtime rosuvastatin (Crestor) 10 MG tablet Indications: Pure hypercholesterolemia (CMS/HCC) Take 1 tablet (10 mg) by mouth at bedtime 90 tablet 3 07/18/2023 Active Start: 03-11-2023 End: 06-27-2023 Start: 03-28-2022 End: 11-29-2022 Start: 03-28-2022 take 10 mg by mouth once daily Rosuvastatin Active 10 MG PO Daily March 28, 2022 12:00am Start: 08-25-2022 take 10 mg by mouth once daily Rosuvastatin Active 10 MG PO Daily March 28, 2022 12:00am tadalafil 20 mg oral tablet (20 sources) Phosphodiesterase 5 Inhibitor Start: 02-21-2023 take 1 tablet by mouth in the morning tadalafil (Cialis) 20 MG tablet Indications: Male erectile dysfunction, unspecified Take 1 tablet (20 mg) by mouth in the morning. 30 tablet 3 02/21/2023 Active tiZANidine 4 mg oral tablet (20 sources) Central alpha-2 Adrenergic Agonist Start: 12-25-2024 Start: 07-13-2024 End: 08-28-2024 Start: 05-15-2024 End: 06-13-2024 Start: 12-23-2020 End: 12-24-2021 topiramate 25 mg oral tablet (3 sources) Start: 12-30-2024 take 1 tablet by mouth once daily topiramate (Topamax) 25 MG tablet Indications: Intractable migraine without aura and with status migrainosus (CMS/HCC) Take 1 tablet (25 mg) by mouth Daily 30 tablet 12/30/2024 Active 1 ml triamcinolone acetonide 40 mg/ml prefilled syringe (20 sources) Corticosteroid Start: 05-06-2024 End: 05-06-2024 triamcinolone acetonide (Kenalog-40) injection 40 mg Start: 05-06-2024 End: 05-06-2024 40 mg, Intra-articular, Once , On Sally 05/06/24 at 1400, For 1 dose Start: 02-25-2024 End: 12-08-2024 triamcinolone (Kenalog) 0.1 % cream Indications: Rash and nonspecific skin eruption Apply 1 application topically 2 (two) times a day as needed for rash Avoid face and groin. 30 g 1 02/25/2024 12/08/2024 Discontinued (Med list cleanup) venlafaxine 75 mg oral tablet (1 source) Serotonin and Norepinephrine Reuptake Inhibitor Start: 05-16-2015 take 1 tablet by mouth twice daily venlafaxine (EFFEXOR) 75 mg tablet Take 1 tablet by mouth twice daily. 60 tablet 11 05/16/2015 Active (20 sources) Start: 11-24-2024 Start: 06-18-2024 End: 07-22-2024 Start: 04-29-2024 Start: 04-19-2024 End: 04-29-2024 Start: 03-11-2023 End: 06-27-2023 Start: 03-11-2023 End: 05-15-2024 Start: 12-24-2021 Start: 07-14-2020 Start: 01-26-2020 End: 11-29-2022 Start: 04-19-2019 End: 01-26-2020 Start: 04-19-2019 End: 07-20-2022 Start: 09-20-2017 End: 09-25-2018 Start: 08-07-2017 End: 12-24-2021 Completed/Discontinued Medications Medication Drug Class(es) Dates Sig (Normalized) Sig (Original) acetaminophen 325 mg / HYDROcodone bitartrate 5 mg oral tablet (20 sources) Opioid Agonist Start: 06-25-2024 End: 08-12-2024 take 1-2 tablets by mouth every six hours for pain HYDROcodone-acetamin ophen (Mclean) 5-325 MG tablet Indications: Primary osteoarthritis involving multiple joints Take 1-2 tablets by mouth every 6 (six) hours if needed for severe pain 42 tablet 07/20/2024 08/12/2024 Discontinued Start: 05-15-2024 End: 07-15-2024 Start: 05-15-2024 End: 07-15-2024 take 1 tablet by mouth every four hours as needed for pain Hydrocodone-Acetaminophen 5-325 mg tablet Discontinued 1 TAB PO Every 4 hours as needed for pain May 15, 2024 12:00am July 15, 2024 3:58pm pt states he has some but not taking Start: 03-17-2024 End: 04-29-2024 Start: 03-17-2024 End: 05-18-2024 take 1 tablet by mouth every six hours as needed for pain Hydrocodone-Acetaminophen 5-325 mg tablet Discontinued 1 - 2 TAB PO Every 6 hours as needed for pain March 17, 2024 12:00am April 29, 2024 6:31am Start: 09-15-2023 End: 09-22-2023 take 1-2 tablets by mouth every six hours for pain HYDROcodone-acetaminophen (Mclean) 5-325 MG tablet Indications: Bilateral low back pain without sciatica, unspecified chronicity , Acute right-sided low back pain without sciatica Take 1-2 tablets by mouth every 6 (six) hours if needed for moderate pain for up to 7 days 42 tablet 0 09/15/2023 09/22/2023 Active Start: 07-16-2020 End: 10-20-2020 Start: 07-16-2020 End: 10-20-2020 take 1 tablet by mouth every six hours as needed for pain Hydrocodone-Acetaminophen 5-325 mg Tablet Discontinued 1 TAB PO Q6H as needed for Pain 28 July 16, 2020 October 20, 2020 7:44am Start: 07-14-2020 End: 07-15-2020 Start: 07-14-2020 End: 07-15-2020 take 1 tablet by mouth every four to six hours as needed for pain Hydrocodone-Acetaminophen (Mclean) 5-325 mg Tablet Discontinued 1 TAB PO EVERY 4-6 HOURS as needed for Pain 02 03July 14, 2020 July 15, 2020 12:20pm amLODIPine 5 mg oral tablet (20 sources) Dihydropyridine Calcium Channel Yamilex Start: 02-04-2018 End: 04-19-2019 amoxicillin 875 mg oral tabl et (20 sources) Penicillin-class Antibacterial Start: 08-08-2024 End: 08-28-2024 Start: 05-25-2023 take 875 mg by mouth twice daily Amoxicillin Active 875 MG PO Twice daily 14 May 25, 2023 12:00am amoxicillin 875 mg / clavula pako 125 mg oral tablet (20 sources) Penicillin-class Antibacterial Start: 08-11-2021 End: 12-24-2021 Start: 08-11-2021 End: 12-24-2021 take 1 tablet by mouth twice daily Amoxicillin-Pot Clavulanate 875-125 mg tablet Discontinued 1 TAB PO Twice daily November 29, 2021 12:00am December 24, 2021 5:33pm aspirin 81 mg delayed releas e oral tablet (20 sources) Platelet Aggregation Inhibitor, Nonsteroidal Anti-inflammatory Drug Start: 04-28-2018 End: 09-15-2018 atorvastatin 10 mg oral tablet (20 sources) HMG-CoA Reductase Inhibitor Start: 08-07-2017 End: 04-19-2019 azithromycin 250 mg oral tablet (20 sources) Macrolide Antimicrobial Start: 04-13-2017 End: 05-23-2017 Zithromax Z-Paulie 250 MG 2 tablet on the first day, then 1 tablet daily for 4 days Orally Once a day for 5 day(s) Active bimatoprost 0.1 mg/ml ophthalmic solution (20 sources) Prostaglandin Analog Start: 07-11-2019 End: 11-29-2022 Bimatoprost 0.01 % drops Discontinued 1 DROPS OPHTHALMIC As Directed July 11, 2019 1:00am November 29, 2022 11:54am Start: 07-11-2019 End: 11-29-2022 Bimatoprost Discontinued 1 D ROPS OPHTHALMIC As Directed July 11, 2019 1:00am November 29, 2022 11:54am Start: 11-27-2011 End: 11-29-2022 take 1 drop(s) into the eye(s) at bedtime bimatoprost (Lumigan) 0.01 % ophthalmic solution Administer 1 drop into both eyes at bedtime Active take 1 drop(s) into the eye(s) once daily in the evening Lumigan 0.01 % 1 drop into affected eye in the evening Ophthalmic Once a day Active 5 ml bupivacaine hydrochloride 5 mg/ml injection (8 sources) Amide Local Anesthetic Start: 12-02-2024 End: 12-02-2024 bupivacaine PF (Marcaine) 0.5 % injection 1 mL Start: 12-02-2024 End: 12-02-2024 1 mL, Injection, Once PRN Pr ocedure, Starting on Sally 12/02/24 at 1045, For 1 dose Start: 09-02-2024 End: 09-02-2024 bupivacaine PF (Marcaine) 0. 5 % injection 1 mL Start: 09-02-2024 End: 09-02-2024 1 mL, Injection, Once PRN Pr ocedure, Starting on Sally 09/02/24 at 0955, For 1 dose cefuroxime 500 mg oral table t (20 sources) Cephalosporin Antibacterial Start: 08-07-2017 End: 08-18-2017 cholecalciferol 0.125 mg ora l tablet (20 sources) Vitamin D Start: 01-26-2020 End: 04-24-2022 take 1 tablet by des th once daily at mealtime cholecalciferol (VITAMIN D-3) 5,000 unit tab Take 5,000 Units by mouth daily with food. Active cloNIDine hydrochloride 0.1 mg oral tablet (20 sources) Central alpha-2 Adrenergic Agonist Start: 05-02-2019 End: 07-11-2019 12 hr dextromethorphan hydrobromide 60 mg / guaiFENesin 1200 mg extended release oral tablet (20 sources) Uncompetitive F-omhvhb-S-aspartate Receptor Antagonist, Sigma-1 Agonist Start: 11-16-2017 End: 11-26-2017 Start: 11-16-2017 End: 11-26-2017 take 60-1200 mg by mouth every twelve hours as needed Dextromethorphan-Guaifenesin (Mucinex Dm ) 60-1,200 mg tablet extended release 12 hr Discontinued 1 TAB PO Twice daily as needed for cold symptoms November 16, 2017 12:00am November 26, 2017 8:29am dicyclomine hydrochloride 20 mg oral tablet (20 sources) Anticholinergic Start: 07-15-2023 End: 07-18-2023 Start: 06-29-2019 take 1 capsule by mo uth once at mealtime as needed Dicyclomine HCl 10 MG 1 capsule PRN Orally before every meal for 10 days Jun, Not-Taking take 1 capsule by mo uth four times daily as needed dicyclomine (Bentyl) 10 MG capsule Take 10 mg by mouth 4 (four) times a day as needed 0 Active dimethyl fumarate 240 mg del ayed release oral capsule (20 sources) Start: 08-07-2017 End: 04-28-2018 Start: 02-09-2016 take 1 capsule by mo uth twice daily dimethyl fumarate (TECFIDERA) 240 mg cpDR Take 240 mg by mouth twice daily. 180 capsule 0 02/09/2016 Active Dimethyl Fumarate (Tecfidera) 240 mg capsule,delayed release(DR/EC) (20 sources) Start: 04-19-2019 End: 07-20-2022 take 1 capsule by mouth twice daily Dimethyl Fumarate (Tecfidera) 240 mg capsule,delayed release(DR/EC) Discontinued 240 MG PO Twice daily April 19, 2019 12:00am July 20, 2022 8:39pm Start: 04-19-2019 End: 07-20-2022 take 1 capsule by mouth twice daily Dimethyl Fumarate (Tecfidera) 240 mg capsule,delayed release(DR/EC) Discontinued 240 MG PO Twice daily April 18, 2019 11:00pm July 20, 2022 7:39pm Start: 04-19-2019 take 1 capsule by mo ut twice daily Dimethyl Fumarate (Tecfidera) 240 mg capsule,delayed release(DR/EC) Active 240 MG PO Twice daily April 18, 2019 11:00pm Start: 04-19-2019 take 1 capsule by mo uth twice daily Dimethyl Fumarate (Tecfidera) 240 mg capsule,delayed release(DR/EC) Active 240 MG PO Twice daily April 19, 2019 12:00am doxycycline hyclate 100 mg oral capsule (20 sources) Tetracycline-class Drug Start: 02-20-2023 End: 03-11-2023 escitalopram 20 mg oral tablet (20 sources) Serotonin Reuptake Inhibitor Start: 04-13-2017 End: 09-15-2018 etodolac 400 mg oral tablet (20 sources) Nonsteroidal Anti-inflammatory Drug Start: 02-26-2018 End: 04-19-2019 gabapentin 400 mg oral capsule (20 sources) Anti-epileptic Agent Start: 02-26-2018 End: 09-15-2018 Start: 02-26-2018 End: 09-15-2018 take 800 mg by mouth once daily Gabapentin Discontinued 800 MG PO Daily February 26, 2018 12:00am September 15, 2018 12:15pm Start: 05-23-2017 End: 02-04-2018 Start: 05-23-2017 End: 02-04-2018 take 400 mg by mouth twice daily Gabapentin Discontinued 400 MG PO Twice daily May 23, 2017 12:00am February 04, 2018 11:23am Insulin Aspart U-100 100/ML insulin pen (20 sources) Start: 08-07-2017 End: 12-24-2021 Insulin Aspart U-100 100/ML insulin pen Discontinued 1 UNIT SUBCUT As Directed August 07, 2017 1:00am December 24, 2021 5:34pm Start: 08-07-2017 End: 12-24-2021 Insulin Aspart U-100 100/ML insulin pen Discontinued 1 UNIT SUBCUT As Directed August 07, 2017 12:00am December 24, 2021 4:34pm 3 ml insulin glargine 100 unt/ml pen injector (20 sources) Insulin Analog Start: 04-13-2017 End: 07-14-2020 3 ml insulin lispro 100 unt/ml cartridge (20 sources) Insulin Analog Start: 04-13-2017 End: 07-31-2017 Irbesartan-Hydroch lorothiazide (20 sources) Start: 04-19-2019 End: 01-26-2020 take 1 tablet by mouth once daily Irbesartan-Hydrochlo rothiazide Discontinued 1 TAB PO Daily April 18, 2019 11:00pm January 26, 2020 11:41am Start: 04-19-2019 End: 01-26-2020 take 1 tablet by mouth once daily Irbesartan-Hydrochlorothiazide Discontin ued 1 TAB PO Daily April 19, 2019 12:00am January 26, 2020 12:41pm Irbesartan-Hydrochlorothiazi de 300-12.5 mg tablet (20 sources) Start: 04-19-2019 End: 01-26-2020 take 1 tablet by mouth once daily Irbesartan-Hydrochlorothiazide 300-12.5 mg tablet Discontinued 1 TAB PO Daily April 19, 2019 12:00am January 26, 2020 12:41pm Start: 04-19-2019 End: 01-26-2020 take 1 tablet by mouth once daily Irbesartan-Hydrochlorothiazide 300-12.5 mg tablet Discontinued 1 TAB PO Daily April 18, 2019 11:00pm January 26, 2020 11:41am 2 ml ketorolac tromethamine 30 mg/ml cartridge (20 sources) Nonsteroidal Anti-inflammatory Drug, Cyclooxygenase Inhibitor Start: 12-30-2024 End: 12-30-2024 60 mg, Intramuscular, Once, On Sally 12/30/24 at 1145, For 1 dose, Max daily dose: 120 mg. Max duration: 5 days total Start: 12-30-2024 End: 12-30-2024 ketorolac (Toradol) injectio n 60 mg Start: 12-30-2024 End: 12-30-2024 60 mg, Intramuscular, Once, On Sally 12/30/24 at 1145, For 1 dose, Max daily dose: 120 mg. Max duration: 5 days total Start: 12-30-2024 End: 12-30-2024 ketorolac (Toradol) injectio n 60 mg Start: 12-28-2024 End: 12-28-2024 60 mg, Intramuscular, Once, On Fri12/28/24 at 1215, For 1 dose, Max daily dose: 120 mg. Max duration: 5 days total Start: 12-28-2024 End: 12-28-2024 ketorolac (Toradol) injectio n 60 mg Start: 12-28-2024 End: 12-28-2024 60 mg, Intramuscular, Once, On Fri12/28/24 at 1215, For 1 dose, Max daily dose: 120 mg. Max duration: 5 days total Start: 12-28-2024 End: 12-28-2024 ketorolac (Toradol) injectio n 60 mg Start: 11-29-2024 End: 12-04-2024 ketorolac (Toradol) injectio n 60 mg Start: 10-18-2024 End: 10-18-2024 60 mg, Intramuscular, Once, On Fri10/18/24 at 1230, For 1 dose, Max daily dose: 120 mg. Max duration: 5 days total Start: 10-18-2024 End: 10-18-2024 ketorolac (Toradol) injectio n 60 mg Start: 07-20-2024 End: 07-20-2024 60 mg, Intramuscular, Once, On Fri07/20/24 at 1045, For 1 dose, Max daily dose: 120 mg. Max duration: 5 days total Start: 07-20-2024 End: 07-20-2024 ketorolac (Toradol) injectio n 60 mg Start: 07-20-2024 End: 07-20-2024 60 mg, Intramuscular, Once, On Fri07/20/24 at 1045, For 1 dose, Max daily dose: 120 mg. Max duration: 5 days total Start: 07-20-2024 End: 07-20-2024 ketorolac (Toradol) injectio n 60 mg Start: 05-25-2024 End: 05-25-2024 60 mg, Intramuscular, Once, On Fri05/25/24 at 1400, For 1 dose, Max daily dose: 120 mg. Max duration: 5 days total Start: 05-25-2024 End: 05-25-2024 ketorolac (Toradol) injectio n 60 mg Start: 05-25-2024 End: 05-25-2024 60 mg, Intramuscular, Once, On Fri05/25/24 at 1400, For 1 dose, Max daily dose: 120 mg. Max duration: 5 days total Start: 05-25-2024 End: 05-25-2024 ketorolac (Toradol) injectio n 60 mg Start: 04-27-2024 End: 04-27-2024 60 mg, Intramuscular, Once, On Fri04/27/24 at 1500, For 1 dose, Max daily dose: 120 mg. Max duration: 5 days total Start: 04-27-2024 End: 04-27-2024 ketorolac (Toradol) injectio n 60 mg Start: 04-27-2024 End: 04-27-2024 60 mg, Intramuscular, Once, On Fri04/27/24 at 1500, For 1 dose, Max daily dose: 120 mg. Max duration: 5 days total Start: 04-27-2024 End: 04-27-2024 ketorolac (Toradol) injectio n 60 mg Start: 07-15-2023 End: 03-17-2024 labetalol hydrochloride 100 mg oral tablet (20 sources) beta-Adrenergic Yamilex Start: 04-19-2019 End: 11-29-2022 Start: 04-19-2019 End: 11-29-2022 take 300 mg by mouth once daily Labetalol Discontinued 300 MG PO Daily April 19, 2019 12:00am November 29, 2022 11:54am take 1 tablet by des th three times daily labetalol (TRANDATE) 100 mg tablet Take 100 mg by mouth three times daily. Active labetalol (TRAND ATE) 300 mg tablet Take 300 mg by mouth once daily. Labetalol HCL 300mg 3 times daily (per pt report) Active take 1 tablet by des th every twelve hours Labetalol HCl 100 MG 1 tablet Orally bid for 90 Days Take with 300 mg tablets to equal 400 mg total Not-Taking lidocaine 0.05 mg/mg medicated patch (20 sources) Antiarrhythmic, Amide Local Anesthetic Start: 07-08-2020 End: 04-24-2022 Start: 08-13-2017 End: 09-20-2017 lisinopril 10 mg oral tablet (20 sources) Angiotensin Converting Enzyme Inhibitor Start: 04-13-2017 End: 11-26-2017 Start: 04-13-2017 End: 11-26-2017 take 20 mg by mouth once daily Lisinopril Discontinued 20 MG PO Daily April 13, 2017 12:00am November 26, 2017 8:29am losartan potassium 100 mg oral tablet (20 sources) Angiotensin 2 Receptor Yamilex Start: 11-26-2017 End: 02-04-2018 magnesium oxide 400 mg oral tablet (20 sources) Start: 08-17-2024 End: 08-28-2024 Medical Marijuana (20 sources) Start: 09-20-2017 End: 09-25-2018 Medical Marijuana Discontinued September 20, 2017 12:00am September 25, 2018 5:51pm Start: 09-20-2017 End: 09-25-2018 Medical Marijuana Discontinu ed September 20, 2017 1:00am September 25, 2018 6:51pm Medical Ameya berry *please review for potential _update for e-prescription and drug interaction check* Active metaxalone 800 mg oral tablet (20 sources) Start: 02-22-2018 End: 02-26-2018 1 ml methylPREDNISolone acetate 40 mg/ml injection (20 sources) Corticosteroid Start: 12-02-2024 End: 12-02-2024 methylPREDNISolone acetate (DEPO-Medrol) injection 40 mg Start: 12-02-2024 End: 12-02-2024 40 mg, Intra-articular, Once PRN Procedure, Starting on Sally 12/02/24 at 1045, For 1 dose Start: 09-02-2024 End: 09-02-2024 methylPREDNISolone acetate (DEPO-Medrol) injection 40 mg Start: 09-02-2024 End: 09-02-2024 40 mg, Intra-articular, Once PRN Procedure, Starting on Sally 09/02/24 at 0955, For 1 dose Start: 06-11-2020 End: 07-14-2020 Start: 06-11-2020 End: 07-14-2020 take 1 tablet by mouth once Methylprednisolone (Medrol (Paulie)) 4 mg tablets,dose pack Discontinued 1 dose pk PO per package directions June 11, 2020 1:00am July 14, 2020 1:36pm Medrol 4 MG as d irected Orally as directed for 6 days Active mupirocin 0.02 mg/mg topical ointment (20 sources) RNA Synthetase Inhibitor Antibacterial Start: 08-13-2017 End: 08-18-2017 nabumetone 750 mg oral table t (20 sources) Nonsteroidal Anti-inflammatory Drug Start: 05-15-2024 End: 06-13-2024 ondansetron 4 mg disintegrat ing oral tablet (20 sources) Serotonin-3 Receptor Antagonist Start: 05-04-2020 End: 07-14-2020 Start: 05-04-2020 End: 07-14-2020 Ondansetron 4 mg Tablet,Disi ntegrating Discontinued 4 MG PO every 6 to 8 hours as needed for Nausea May 04, 2020 12:00am July 14, 2020 1:36pm piroxicam 20 mg oral capsule (20 sources) Nonsteroidal Anti-inflammatory Drug Start: 04-19-2019 End: 07-11-2019 predniSONE 10 mg oral tablet (20 sources) Start: 12-27-2024 End: 01-15-2025 take 0.5 tablet by mouth once daily predniSONE (Deltasone) 10 MG tablet Indications: Spinal stenosis in cervical region Take 6 tablets (60 mg) by mouth Daily for 3 days, THEN 4 tablets (40 mg) Daily for 3 days, THEN 3 tablets (30 mg) Daily for 3 days, THEN 2 tablets (20 mg) Daily for 3 days, THEN 1 tablet (10 mg) Daily for 3 days, THEN 0.5 tablets (5 mg) Daily for 4 days. 50 tablet 12/27/2024 12/30/2024 Discontinued Start: 10-10-2024 End: 11-20-2024 Start: 10-10-2024 End: 11-20-2024 take 2 tablets by mouth once daily at mealtime Prednisone 10 mg tablet Discontinued 20 MG PO Daily October 10, 2024 1:00am November 20, 2024 11:46am administer with food or milk Start: 01-01-2024 End: 03-17-2024 Start: 01-01-2024 End: 03-17-2024 take 40 mg by mouth once daily Prednisone Discontinued 40 MG PO Daily January 01, 2024 12:00am March 17, 2024 11:24am Start: 08-11-2021 End: 12-24-2021 Start: 10-20-2020 End: 12-23-2020 Start: 10-20-2020 End: 12-23-2020 Prednisone 10 mg Tablet Discontinued 0 MG .ROUTE .COMPLEX 39 October 20, 2020 12:00am May 22nd, 2021 11:45am 6 tabs for 3 days 4 tabs for 3 days 2 tabs for 3 days 1 tabs for 3 days Start: 10-12-2017 End: 11-26-2017 Start: 10-12-2017 End: 11-26-2017 take 3 tablets by mouth once daily at mealtime Prednisone 20 mg tablet Discontinued 60 MG PO Daily October 12, 2017 1:00am November 26, 2017 8:30am administer with food or milk Start: 10-12-2017 End: 11-26-2017 take 60 mg by mouth once daily at mealtime Prednisone Discontinued 60 MG PO Daily October 12, 2017 1:00am November 26, 2017 8:30am administer with food or milk promethazine hydrochloride 2 5 mg oral tablet (20 sources) Phenothiazine Start: 06-23-2023 End: 06-27-2023 Start: 05-04-2020 End: 07-14-2020 Start: 05-04-2020 End: 07-14-2020 take 1 tablet by mouth every six hours as needed for nausea Promethazine 25 mg Tablet Discontinued 25 MG PO Q6H as needed for Nausea May 04, 2020 12:00am July 14, 2020 1:36pm Start: 10-01-2017 End: 10-12-2017 sildenafil 100 mg oral tablet (2 sources) Phosphodiesterase 5 Inhibitor take 1 tablet by mouth once daily as needed Sildenafil Citrate 100 MG 1 tablet Orally Once a day prn Not-Taking Sod Picosulf-Mag Ox-Citric Ac (20 sources) Start: 06-03-20 End: 08-28-19 Start: 06-03-2024 End: 08-28-2024 Sod Picosulf-Mag Ox-Citric A c (Clenpiq) 10 mg-3.5 gram- 12 gram/175 mL solution Discontinued 175 ML PO .COMPLEX 350 June 03, 2024 12:00am August 28, 2024 10:05pm Follow instructions given by office Start: 06-03-2024 End: 08-28-2024 Sod Picosulf-Mag Ox-Citric A c (Clenpiq) 10 mg-3.5 gram- 12 gram/175 mL solution Discontinued 175 ML PO .COMPLEX 350 June 02, 2024 11:00pm August 28, 2024 9:05pm Follow instructions given by office Start: 06-03-2024 Sod Picosulf-M ag Ox-Citric Ac (Clenpiq) 10 mg-3.5 gram- 12 gram/175 mL solution Active 175 ML PO .COMPLEX 350 1 June 02, 2024 11:00pm Follow instructions given by office sulfamethoxazole 800 mg / trimethoprim 160 mg oral tablet (20 sources) Dihydrofolate Reductase Inhibitor Antibacterial, Sulfonamide Antimicrobial Start: 07-14-2020 End: 10-20-2020 Start: 07-14-2020 End: 10-20-2020 take 1 tablet by mouth twice daily Sulfamethoxazole-Trimethoprim 800-160 mg tablet Discontinued 1 TAB PO Twice daily July 14, 2020 1:00am October 20, 2020 7:44am Start: 09-20-2017 End: 09-27-2017 Start: 09-20-2017 End: 09-27-2017 take 1 tablet by mouth twice daily Sulfamethoxazole-Trimethoprim (Bactrim D s) 800-160 mg tablet Discontinued 1 TAB PO Twice daily 14 September 20, 2017 1:00am September 26, 2017 1:00am September 27, 2017 1:08am ubrogepant 100 mg oral table t (20 sources) Start: 06-18-2024 End: 09-22-2024 Problems Active Problems Problem Classification Problem Date Documented Da te Episodic/Chronic Abdominal pain (20 sources) Unspecified abdominal pain; Translations: [Flank pain] Onset: 04-30-2020 Episodic Anxiety disorders (20 sources) Generalized anxiety disorder; Translations: [Generalized anxiety disorder] Onset: 12-10-2022 12-10-2022 Chronic Chronic kidney disease (20 sources) Chronic kidney disease stage 2; Translations: [Chronic kidney disease, stage 2 (mild)] Onset: 12-10-2022 12-10-2022 Chronic Chronic obstructive pulmonary disease and bronchiectasis (20 sources) Bronchitis; Translations: [Bronchitis, not specified as acute or chronic] 11-16-2017 Episodic Complications of surgical procedures or medical care (20 sources) Wound pain ; Translations: [Other postprocedural complications of skin and subcutaneous tissue] 08-13-2017 Episodic Diabetes mellitus with complications (20 sources) Diabetic - poor control; Translations: [Diabetes mellitus with other specified manifestations, type II or unspecified type, uncontrolled] Onset: 09-28-2008 Resolved: 10-29-2023 12-30-2022 Chronic Diabetes mellitus without complication (20 sources) Type 2 diabetes mellitus without complications; Translations: [Diabetes mellitus] Onset: 03-05-2021 07-15-2020 Chronic Diabetes mellitus without complication (20 sources) Hyperglycemia; Translations: [Hyperglycemia, unspecified] 06-13-2024 Episodic Disorders of lipid metabolism (20 sources) Hyperlipidemia; Translations: [Hyperlipidemia LDL goal <100] Onset: 08-04-2023 08-04-2023 Chronic Disorders of teeth and jaw (20 sources) Toothache; Translations: [Other specified disorders of teeth and supporting structures] 07-15-2023 Episodic E Codes: Fall (20 sources) Fall; Translations: [Unspecified fall, initial encounter] 05-15-2024 Episodic Epilepsy; convulsions (20 sources) Seizure disorder; Translations: [Epilepsy, unspecified, not intractable, without status epilepticus] Onset: 12-10-2022 12-10-2022 Chronic Epilepsy; convulsions (20 sources) Neurological finding; Translations: [Unspecified convulsions] 01-18-2023 Episodic Essential hypertension (20 sources) Essential hypertension; Translations: [Essential (primary) hypertension] Onset: 12-10-2022 06-11-2020 Chronic Fluid and electrolyte disorders (20 sources) Hypo-osmolality and hyponatremia; Translations: [Acute hyponatremia] Onset: 05-02-2020 04-28-2020 Episodic Glaucoma (20 sources) Suspected bilateral glaucoma; Translations: [Preglaucoma, unspecified, bilateral] Onset: 06-05-2020 03-14-2023 Chronic Headache; including migraine (20 sources) Migraine; Translations: [Migraine, unspecified, not intractable, without status migrainosus] Onset: 02-23-2014 Resolved: 03-14-2023 07-31-2017 Chronic Headache; including migraine (5 sources) Headache; including migraine; Translations: [HEADACHE UNSPECIFIED] Onset: 03-01-2021 Immunity disorders (20 sources) Secondary immune deficiency disorder; Translations: [Immunodeficiency due to conditions classified elsewhere] Onset: 12-30-2022 12-30-2022 Chronic Immunizations and screening for infectious disease (20 sources) Contact with and (suspected) exposure to other viral communicable diseases; Translations: [Exposure to Hepatitis B virus] Onset: 07-11-2021 Resolved: 07-11-2021 Episodic Joint disorders and dislocations; trauma-related (6 sources) Derangement of medial meniscus; Translations: [Other meniscus derangements, unspecified medial meniscus, unspecified knee] Onset: 06-09-2006 02-12-2024 Chronic Malaise and fatigue (20 sources) Asthenia; Translations: [Weakness] 03-23-2023 Episodic Mood disorders (20 sources) Mixed bipolar affective disorder, moderate; Translations: [Bipolar disorder, current episode mixed, moderate] Onset: 02-24-2007 03-28-2023 Chronic Multiple sclerosis (20 sources) Multiple sclerosis; Translations: [Multiple sclerosis] Onset: 01-17-2010 03-25-2022 Chronic Nausea and vomiting (20 sources) Vomiting; Translations: [Vomiting, unspecified] Onset: 07-06-2024 05-04-2020 Episodic Nutritional deficiencies (20 sources) Vitamin D deficiency; Translations: [Vitamin D deficiency] Onset: 09-02-2008 12-10-2022 Chronic Osteoarthritis (20 sources) Arthritis; Translations: [Unspecified osteoarthritis, unspecified site] Onset: 06-09-2006 10-12-2017 Chronic Other aftercare (1 source) longterm (current) use of insulin; Translations: [[facility] CURRENT USE OF INSULIN] Onset: 03-05-2021 Episodic Other aftercare (1 source) Other [facility] (current) drug therapy; Translations: [OTH [facility] CURRENT DRUG THERAPY] Onset: 03-05-2021 Episodic Other aftercare (20 sources) Patient encounter status; Translations: [Encounter for change or removal of nonsurgical wound dressing] 07-17-2020 Episodic Other circulatory disease (2 sources) Vasculitis; Translations: [Arteritis, unspecified] Chronic Other connective tissue disease (20 sources) Cramp; Translations: [Cramp and spasm] 07-11-2019 Episodic Other connective tissue disease (1 source) Pain in both feet; Translations: [Pain in right foot] 05-28-2024 Episodic Other connective tissue disease (2 sources) Muscle pain; Translations: [Myalgia, unspecified site] 06-29-2024 Episodic Other connective tissue disease (20 sources) Bilateral cramp of muscle of lower limbs; Translations: [Cramp and spasm] 08-17-2024 Episodic Other diseases of veins and lymphatics (20 sources) Lymphedema; Translations: [Lymphedema, not elsewhere classified] Onset: 12-10-2022 12-10-2022 Chronic Other ear and sense organ disorders (5 sources) Otalgia; Translations: [Otalgia, unspecified ear] 12-13-2020 Episodic Other ear and sense organ disorders (20 sources) Pain of ear structure; Translations: [Otalgia, unspecified ear] 12-13-2020 Episodic Other endocrine disorders (2 sources) Disorder of adrenal gland; Translations: [Disorder of adrenal gland, unspecified] Chronic Other endocrine disorders (20 sources) Hyperparathyroidism; Translations: [Hyperparathyroidism , unspecified] Onset: 09-02-2008 03-14-2023 Chronic Other gastrointestinal disorders (20 sources) Irritable bowel syndrome; Translations: [Irritable bowel syndrome without diarrhea] Onset: 12-10-2022 12-10-2022 Chronic Other gastrointestinal disorders (20 sources) Diarrhea; Translations: [Diarrhea, unspecified] 07-15-2023 Episodic Other hereditary and degenerative nervous system conditions (20 sources) Restless legs; Translations: [Restless legs syndrome] Onset: 12-10-2022 12-10-2022 Chronic Other inflammatory condition of skin (20 sources) Psoriasis; Translations: [Other psoriasis] Onset: 01-14-2006 03-14-2023 Chronic Other inflammatory condition of skin (20 sources) Psoriatic arthritis; Translations: [Arthropathic psoriasis, unspecified] Onset: 02-11-2006 03-14-2023 Chronic Other inflammatory condition of skin (2 sources) Seborrheic dermatitis; Translations: [Seborrheic dermatitis, unspecified] 09-18-2024 Episodic Other injuries and conditions due to external causes (20 sources) Closed injury of head; Translations: [Unspecified injury of head, initial encounter] 01-22-2020 Episodic Other injuries and conditions due to external causes (20 sources) Minor head injury; Translations: [Unspecified injury of head, initial encounter] 08-04-2024 Episodic Other injuries and conditions due to external causes (2 sources) Excoriation of skin; Translations: [Other injury of unspecified body region, initial encounter] 12-08-2024 Episodic Other liver diseases (4 sources) Alkaline phosphatase raised; Translations: [Abnormal levels of other serum enzymes] 08-10-2024 Episodic Other liver diseases (1 source) Abnormal levels of other serum enzymes; Translations: [Abnormal levels of other serum enzymes] Onset: 11-04-2024 Episodic Other lower respiratory disease (2 sources) Cough; Translations: [Acute cough] 09-18-2024 Episodic Other lower respiratory disease (1 source) Shortness of breath; Translations: [Shortness of breath] Onset: 12-02-2024 Episodic Other nervous system disorders (20 sources) Chronic pain; Translations: [Other chronic pain] 03-10-2024 Chronic Other nervous system disorders (2 sources) Peripheral nerve disease ; Translations: [Polyneuropathy, unspecified] Chronic Other nervous system disorders (20 sources) Polyneuropathy associated with another disorder; Translations: [Polyneuropathy in diseases classified elsewhere] Onset: 12-30-2022 Resolved: 03-28-2023 03-28-2023 Chronic Other nervous system disorders (20 sources) Neuropathy; Translations: [Polyneuropathy, unspecified] 04-29-2024 Chronic Other nervous system disorders (20 sources) Postoperative pain ; Translations: [Other acute postprocedural pain] 07-03-2017 Episodic Other nervous system disorders (20 sources) Tremor; Translations: [Tremor, unspecified] 07-20-2022 Episodic Other nervous system disorders (20 sources) H/O: migraine; Translations: [Personal history of other diseases of the nervous system and sense organs] Onset: 12-30-2022 12-30-2022 Episodic Other non-traumatic joint disorders (4 sources) Arthritis of right knee 09-02-2024 Chronic Other non-traumatic joint disorders (20 sources) Pain in right knee; Translations: [Acute pain of right knee] Onset: 07-17-2024 06-18-2024 Episodic Other non-traumatic joint disorders (20 sources) Joint pain; Translations: [Pain in unspecified joint] 10-10-2024 Episodic Other non-traumatic joint disorders (20 sources) Effusion of right knee joint; Translations: [Effusion, right knee] 11-24-2024 Episodic Other non-traumatic joint disorders (4 sources) Instability of joint of right knee; Translations: [Other instability, right knee] 12-02-2024 Episodic Other non-traumatic joint disorders (1 source) Effusion, right knee; Translations: [Effusion, right knee] Onset: 11-24-2024 Episodic Other nutritional; endocrine; and metabolic disorders (20 sources) Morbid obesity; Translations: [Morbid obesity with BMI of 45.0-49.9, adult] Onset: 03-05-2005 12-10-2022 Chronic Other nutritional; endocrine; and metabolic disorders (10 sources) Body mass index 40+ - severely obese; Translations: [Body mass index (BMI) 50.0-59.9, adult] 05-25-2024 Chronic Other nutritional; endocrine; and metabolic disorders (2 sources) Localized adiposity; Translations: [Localized adiposity] Chronic Other nutritional; endocrine; and metabolic disorders (2 sources) Severe obesity; Translations: [Morbid (severe) obesity due to excess calories] Chronic Other nutritional; endocrine; and metabolic disorders (20 sources) Obesity; Translations: [Obesity, unspecified] 07-15-2020 Chronic Other nutritional; endocrine; and metabolic disorders (20 sources) Hypomagnesemia; Translations: [Hypomagnesemia] 08-17-2024 Chronic Other screening for suspected conditions (not mental disorders or infectious disease) (6 sources) Other specified abnormal findings of blood chemistry; Translations: [Patient encounter status] Onset: 02-23-2014 Resolved: 09-03-2021 Episodic Other skin disorders (20 sources) Folliculitis; Translations: [Follicular disorder, unspecified] 12-13-2020 Episodic Other skin disorders (2 sources) Eruption; Translations: [Rash and other nonspecific skin eruption] 12-07-2024 Episodic Other skin disorders (2 sources) Broken skin; Translations: [Other skin changes] 12-08-2024 Episodic Other upper respiratory infections (20 sources) Chronic sinusitis; Translations: [Chronic sinusitis, unspecified] 11-29-2021 Chronic Other upper respiratory infections (20 sources) Pharyngitis; Translations: [Acute pharyngitis, unspecified] 06-11-2020 Episodic Otitis media and related conditions (20 sources) Acute transudative otitis media; Translations: [Other acute nonsuppurative otitis media, right ear] 05-25-2023 Episodic Residual codes; unclassified (2 sources) Periodic limb movement disorder; Translations: [Periodic limb movement disorder] Chronic Residual codes; unclassified (20 sources) Left against medical advice; Translations: [Procedure and treatment not carried out because of patient's decision for other reasons] 06-03-2019 Episodic Residual codes; unclassified (20 sources) Peripheral edema; Translations: [Edema, unspecified] 06-02-2019 Episodic Residual codes; unclassified (20 sources) Tobacco user; Translations: [Tobacco use] 03-11-2023 Episodic Residual codes; unclassified (11 sources) Tobacco use; Translations: [Tobacco use disorder] 03-11-2023 Episodic Residual codes; unclassified (2 sources) Flushing; Translations: [Flushing] 11-29-2024 Episodic Rheumatoid arthritis and related disease (2 sources) Rheumatoid arthritis, unspecified; Translations: [Rheumatoid arthritis] Onset: 03-05-2005 Resolved: 12-29-2012 12-29-2012 Chronic Screening and history of mental health and substance abuse codes (1 source) Personal history of nicotine dependence; Translations: [PERSONAL HISTORY OF NICOTINE DEPEND] Onset: 03-05-2021 Episodic Skin and subcutaneous tissue infections (20 sources) Cutaneous abscess of right lower limb; Translations: [Abscess of skin and/or subcutaneous tissue] Onset: 02-04-2021 Episodic Sprains and strains (20 sources) Strain of neck muscle; Translations: [Strain of muscle, fascia and tendon at neck level, initial encounter] Onset: 07-15-2024 04-20-2020 Episodic Substance-related disorders (20 sources) Smoker; Translations: [Nicotine dependence, unspecified, uncomplicated] 03-23-2023 Chronic Superficial injury; contusion (20 sources) Abrasion of forehead; Translations: [Abrasion of other part of head, initial encounter] 06-18-2024 Episodic Systemic lupus erythematosus and connective tissue disorders (2 sources) Temporal arteritis; Translations: [Other giant cell arteritis] Chronic Unclassified (2 sources) Long-term current use of insulin; Translations: [Insulin long-term use] Unclassified (2 sources) Acute pain of right knee 08-31-2024 Unclassified (1 source) Low back pain, unspecified; Translations: [Low back pain, unspecified] Onset: 05-29-2024 Urinary tract infections (20 sources) Urinary tract infectious disease; Translations: [Urinary tract infection, site not specified] 05-02-2019 Episodic Past or Other Problems Problem Classification Problem Date Documented Da te Episodic/Chronic Administrative/social admission (1 source) Encounter for examination and observation for other specified reasons; Translations: [Encounter for examination and observation for other specified reasons] Onset: 07-19-2024 Episodic Allergic reactions (1 source) Contact dermatitis; Translations: [Unspecified contact dermatitis, unspecified cause] Onset: 06-06-2008 06-06-2008 Episodic Anal and rectal conditions (1 source) Anal fissure and fistula; Translations: [Anal fissure and fistula] Onset: 12-02-2006 Resolved: 10-27-2007 02-12-2024 Episodic Biliary tract disease (1 source) Calculus of gallbladder without cholecystitis without obstruction; Translations: [CALCU GB W/O CHOLECYST W/O OBST] Onset: 05-02-2020 Episodic Cataract (20 sources) Nuclear senile cataract; Translations: [Age-related nuclear cataract, unspecified eye] Onset: 01-03-2021 Resolved: 08-04-2023 08-04-2023 Chronic Conditions associated with dizziness or vertigo (20 sources) Vertigo; Translations: [Dizziness and giddiness] Onset: 12-24-2018 03-11-2023 Episodic Coronary atherosclerosis and other heart disease (20 sources) Old myocardial infarction; Translations: [Old myocardial infarction] Onset: 12-10-2022 Resolved: 03-14-2023 03-14-2023 Chronic Diseases of mouth; excluding dental (2 sources) Sialoadenitis; Translations: [Chronic sialoadenitis] Episodic Genitourinary symptoms and ill-defined conditions (1 source) Polyuria; Translations: [Polyuria] Onset: 02-23-2014 02-23-2014 Episodic Headache; including migraine (20 sources) Headache; Translations: [Headache] Onset: 10-14-2012 03-25-2022 Episodic Mycoses (20 sources) Onychomycosis; Translations: [Tinea unguium] Onset: 02-04-2012 Resolved: 10-29-2023 01-21-2023 Episodic Neoplasms of unspecified nature or uncertain behavior (3 sources) Neoplastic disease of uncertain behavior; Translations: [Neoplasm of unspecified behavior of bone, soft tissue, and skin] Onset: 02-21-2010 02-21-2010 Episodic Nonspecific chest pain (1 source) Chest pain, unspecified; Translations: [Chest pain, unspecified] Onset: 04-06-2024 Episodic Nutritional deficiencies (20 sources) Cobalamin deficiency; Translations: [Deficiency of other specified B group vitamins] Onset: 09-01-2011 12-10-2022 Episodic Other and unspecified benign neoplasm (2 sources) Tubular adenoma of colon; Translations: [Benign neoplasm of colon, unspecified] Episodic Other and unspecified benign neoplasm (20 sources) History of polyp of colon; Translations: [Personal history of colonic polyps] Onset: 08-12-2021 03-14-2023 Episodic Other and unspecified benign neoplasm (20 sources) Adenoma of left adrenal gland; Translations: [Benign neoplasm of left adrenal gland] Onset: 12-30-2022 Resolved: 04-28-2023 04-28-2023 Episodic Other and unspecified benign neoplasm (1 source) Benign neoplasm of skin of face; Translations: [Other benign neoplasm of skin of unspecified part of face] Onset: 03-06-2010 03-06-2010 Episodic Other and unspecified benign neoplasm (1 source) Dermatofibroma; Translations: [Other benign neoplasm of skin, unspecified] Onset: 02-04-2012 02-04-2012 Episodic Other connective tissue disease (2 sources) Spasm of cervical paraspinous muscle; Translations: [Other muscle spasm] Episodic Other connective tissue disease (2 sources) Myofascial pain; Translations: [Myalgia, other site] Episodic Other connective tissue disease (20 sources) Lipodermatosclerosis ; Translations: [Panniculitis, unspecified] Onset: 11-17-2020 08-04-2023 Episodic Other connective tissue disease (1 source) Disorder of Achilles tendon; Translations: [Achilles tendinitis, unspecified leg] Onset: 01-14-2006 02-12-2024 Episodic Other connective tissue disease (1 source) Foot pain; Translations: [Pain in unspecified foot] Onset: 12-29-2009 12-29-2009 Episodic Other connective tissue disease (1 source) Cramp and spasm; Translations: [Cramp and spasm] Onset: 08-17-2024 Episodic Other diseases of veins and lymphatics (20 sources) Peripheral venous insufficiency; Translations: [Venous insufficiency (chronic) (peripheral)] Onset: 12-11-2018 03-28-2023 Episodic Other diseases of veins and lymphatics (2 sources) Vascular insufficiency; Translations: [Venous insufficiency (chronic) (peripheral)] Episodic Other diseases of veins and lymphatics (20 sources) Venous varices; Translations: [Varicose veins of other specified sites] Onset: 08-22-2009 Resolved: 10-29-2023 03-14-2023 Episodic Other ear and sense organ disorders (1 source) Otalgia, left ear; Translations: [Otalgia, left ear] Onset: 08-08-2024 Episodic Other gastrointestinal disorders (1 source) Diarrhea, unspecified; Translations: [Diarrhea, unspecified] Onset: 03-15-2024 Episodic Other hematologic conditions (1 source) ESR raised; Translations: [Elevated erythrocyte sedimentation rate] Onset: 02-23-2014 02-23-2014 Episodic Other injuries and conditions due to external causes (1 source) Other specified injuries of head, initial encounter; Translations: [Other specified injuries of head, initial encounter] Onset: 07-26-2024 Episodic Other injuries and conditions due to external causes (1 source) Unspecified injury of head, initial encounter; Translations: [Unspecified injury of head, initial encounter] Onset: 07-14-2024 Episodic Other lower respiratory disease (2 sources) Solitary nodule of lung; Translations: [Solitary pulmonary nodule] Episodic Other lower respiratory disease (1 source) Unspecified acute lower respiratory infection Onset: 07-11-2021 Resolved: 07-11-2021 Episodic Other lower respiratory disease (20 sources) Nodule of lung; Translations: [Solitary pulmonary nodule] Onset: 03-14-2023 Resolved: 04-28-2023 04-28-2023 Episodic Other nervous system disorders (2 sources) Nervous system symptoms; Translations: [Other abnormalities of gait and mobility] Episodic Other nervous system disorders (20 sources) Ataxia; Translations: [Ataxia, unspecified] Onset: 03-12-2023 12-13-2023 Episodic Other non-traumatic joint disorders (2 sources) Shoulder joint pain; Translations: [Pain in right shoulder] Episodic Other non-traumatic joint disorders (1 source) Pain in right wrist; Translations: [Pain in right wrist] Onset: 07-17-2024 Episodic Other skin disorders (3 sources) Ingrowing nail; Translations: [Ingrowing nail] Onset: 10-15-2007 02-12-2024 Episodic Other skin disorders (1 source) Sebaceous cyst of skin; Translations: [Sebaceous cyst] Onset: 07-05-2008 07-05-2008 Episodic Other skin disorders (1 source) Ingrowing great toenail; Translations: [Ingrowing nail] Onset: 03-06-2010 03-06-2010 Episodic Other upper respiratory disease (1 source) Other specified disorders of nose and nasal sinuses; Translations: [Other specified disorders of nose and nasal sinuses] Onset: 07-14-2024 Episodic Residual codes; unclassified (4 sources) Procedure and treatment not carried out due to patient leaving prior to being seen by health care provider; Translations: [PROC AND TX NOT CARRIED OUT PT LEAVE] Onset: 07-09-2020 Episodic Residual codes; unclassified (19 sources) Amnesia; Translations: [Other amnesia] Onset: 03-22-2024 03-22-2024 Episodic Residual codes; unclassified (1 source) Edema; Translations: [Edema, unspecified] Onset: 06-21-2008 06-21-2008 Episodic Residual codes; unclassified (1 source) Edema of lower extremity; Translations: [Localized edema] Onset: 03-05-2011 03-05-2011 Episodic Spondylosis; intervertebral disc disorders; other back problems (20 sources) Degeneration of cervical intervertebral disc; Translations: [Other cervical disc degeneration, unspecified cervical region] Onset: 03-12-2006 Resolved: 10-29-2023 03-14-2023 Chronic Spondylosis; intervertebral disc disorders; other back problems (20 sources) Cervico-occipital neuralgia; Translations: [Occipital neuralgia] Onset: 02-23-2014 10-20-2020 Episodic Substance-related disorders (3 sources) Cannabis use, unspecified, uncomplicated; Translations: [Nondependent cannabis abuse ] Onset: 03-05-2021 Episodic Varicose veins of lower extremity (7 sources) Pain due to varicose veins of lower extremity; Translations: [Varicose veins of bilateral lower extremities with pain] Onset: 08-22-2009 08-22-2009 Episodic Results Test Name Value Interpretation Reference Range Facility Alanine aminotransferase [En zymatic activity/volume] in Serum or PlasmaOrdered By: Aiden Mary on 01-01-2025 ALT [Catalytic activity/Vol] Alanine aminotransferase [Enzymatic activity/volume] in Serum or Plasma [facility] Albumin [Mass/volume] in Ser um or Plasma by Bromocresol green (BCG) dye binding methoOrdered By: Aiden Mary on 01-01-2025 Albumin BCG dye [Mass/Vol] Albumin [Mass/volume] in Serum or Plasma by Bromocresol green (BCG) dye binding metho 3.5-5.7 [facility] Alkaline phosphatase [Enzyma tic activity/volume] in Serum or PlasmaOrdered By: Aiden Mary on 01-01-2025 ALP [Catalytic activity/Vol] Alkaline phosphatase [Enzymatic activity/volume] in Serum or Plasma High 34-104 [facility] Aspartate aminotransferase [ Enzymatic activity/volume] in Serum or PlasmaOrdered By: Aiden Mary on 01-01-2025 AST [Catalytic activity/Vol] Aspartate aminotransferase [Enzymatic activity/volume] in Serum or Plasma 13-39 [facility] Basophils Auto (Bld) [#/Vol] Ordered By: Aiden Mary on 01-01-2025 Basophils (Bld) [#/Vol] Automated basophil count 0.0-0.2 [facility] Basophils/100 WBC Auto (Bld) Ordered By: Aiden Mary on 01-01-2025 Basophils/100 WBC (Bld) Automated basophil % . [facility] Bilirubin.total [Mass/volume ] in Serum or PlasmaOrdered By: Aiden Mary on 01-01-2025 Bilirubin [Mass/Vol] Bilirubin.total [Mass/volume] in Serum or Plasma 0.3-1.0 [facility] Calcium [Mass/volume] in Ser um or PlasmaOrdered By: Aiden Mary on 01-01-2025 Calcium [Mass/Vol] Calcium [Mass/volume ] in Serum or Plasma 8.6-10.3 [facility] Carbon dioxide, total [Moles /volume] in Serum or PlasmaOrdered By: Aiden Mary on 01-01-2025 CO2 [Moles/Vol] Carbon dioxide, tota l [Moles/volume] in Serum or Plasma 21.0-31.0 [facility] Chloride [Moles/volume] in S miguel or PlasmaOrdered By: Aiden Mary on 01-01-2025 Chloride [Moles/Vol] Chloride [Moles/vol ume] in Serum or Plasma 98-107 [facility] Complete Blood Count Auto Di ffon 01-01-2025 Basophils (Bld) [#/Vol] 0.1 10*3/uL Normal 0.0-0.2 [facility] Comment on above: Result Comment: PERF ORMED BY:[address] [place], [place] [id number] MEDICAL DIRECTORGRAHAM HOWARD M.D. Performed By: #### H S TROP, CBC ####[place] [id number] [facility] Basophils/100 WBC (Bld) 0.8 % Normal . [facility] Comment on above: Performed By: #### H S TROP, CBC ####[address] Eosinophils (Bld) [#/Vol] 0.2 10*3/uL Normal 0.0-0.45 [facility] Comment on above: Performed By: #### H S TROP, CBC ####[address] Eosinophils/100 WBC (Bld) 1.9 % Normal . [facility] Comment on above: Performed By: #### H S TROP, CBC ####[address] Erythrocyte distribution width (RBC) [Ratio] 13.6 % Normal 12.0-14.8 [facility] Comment on above: Performed By: #### H S TROP, CBC ####[address] Hematocrit (Bld) [Volume fraction] 39.0 % Normal 38.8-50.0 [facility] Comment on above: Performed By: #### H S TROP, CBC ####[address] Hemoglobin (Bld) [Mass/Vol] 13.5 g/dL Normal 13.0-17.0 [facility] Comment on above: Performed By: #### H S TROP, CBC ####[address] Lymphocytes (Bld) [#/Vol] 1.5 10*3/uL Normal 1.00-4.8 [facility] Comment on above: Performed By: #### H S TROP, CBC ####[address] Lymphocytes/100 WBC (Bld) 15.7 % Normal . [facility] Comment on above: Performed By: #### H S TROP, CBC ####[address] MCH (RBC) [Entitic mass] 30.1 pg Normal 27.5-35.2 [facility] Comment on above: Performed By: #### H S TROP, CBC ####[address] MCV (RBC) [Entitic vol] 87.1 fL Normal 83.5-101 [facility] Comment on above: Performed By: #### H S TROP, CBC ####[address] Mean Corpuscular HGB Conc 34.6 g/dL Normal 32.5-35.6 [facility] Comment on above: Performed By: #### H S TROP, CBC ####[address] Monocytes (Bld) [#/Vol] 0.8 10*3/uL Normal 0.0-0.8 [facility] Comment on above: Performed By: #### H S TROP, CBC ####[address] Monocytes/100 WBC (Bld) 17.89 % Normal 0.00-20.00 [facility] Comment on above: Performed By: #### H S TROP, CBC ####[address] Monocytes/100 WBC (Bld) 8.7 % Normal . [facility] Comment on above: Performed By: #### H S TROP, CBC ####[address] Neutrophils (Bld) [#/Vol] 7.0 10*3/uL Normal 1.8-7.7 [facility] Comment on above: Performed By: #### H S TROP, CBC ####[address] Neutrophils/100 WBC (Bld) 72.9 % Normal . [facility] Comment on above: Performed By: #### H S TROP, CBC ####[address] NRBC% 0.1 /100{WBC} Normal 0-0.5 [facility] Comment on above: Performed By: #### H S TROP, CBC ####[address] Platelet mean volume (Bld) [Entitic vol] 8.1 fL Normal 6.6-10.1 [facility] Comment on above: Performed By: #### H S TROP, CBC ####[address] Platelets (Bld) [#/Vol] 270 10*3/uL Normal 150-450 [facility] Comment on above: Performed By: #### H S TROP, CBC ####[address] RBC (Bld) [#/Vol] 4.48 10*6/uL Normal 3.90-5.60 [facility] Comment on above: Performed By: #### H S TROP, CBC ####[address] WBC (Bld) [#/Vol] 9.6 10*3/uL Normal 4.1-10.5 [facility] Comment on above: Performed By: #### H S TROP, CBC ####[address] Creatinine [Mass/volume] in Serum or PlasmaOrdered By: Aiden Mary on 01-01-2025 Creatinine [Mass/Vol] Creatinine [Mass/v olume] in Serum or Plasma 0.70-1.30 [facility] Eosinophils Auto (Bld) [#/Vo l]Ordered By: Aiden Mary on 01-01-2025 Eosinophils (Bld) [#/Vol] Automated eosinophil count 0.0-0.45 [facility] Eosinophils/100 WBC Auto (Bl d)Ordered By: Aiden Mary on 01-01-2025 Eosinophils/100 WBC (Bld) Automated eosinophil % . [facility] Erythrocyte distribution wid th Auto (RBC) [Ratio]Ordered By: Aiden Mary on 01-01-2025 Erythrocyte distribution width (RBC) [Ratio] Erythrocyte distribution width [Ratio] by Automated count 12.0-14.8 [facility] Globulin Calc (S) [Mass/Vol] Ordered By: Aiden Mary on 01-01-2025 Globulin (S) [Mass/Vol] Serum globulin measurement by calculation (mass/volume) [facility] Glucose Glucometer (BldC) [M ass/Vol]Ordered By: Aiden Mary on 01-01-2025 Glucose [Mass/Vol] Capillary blood gluc ose measurement by glucometer (mass/volume) [facility] Glucose Poct Glucometerson 0 01-01-2025 Glucose [Mass/Vol] 289 mg/dL Normal [facility] Comment on above: Result Comment: [facility] Glucose Reference Range is dependent on time and content of last meal. Glucose of more than 200 mg/dL in a nonstressed, ambulatory subject supports the diagnosis of Diabetes Mellitus.PERFORMED BY:[place] [address] [place], [place] [id number] MEDICAL DIRECTORGRAHAM HOWARD M.D. Performed By: #### G LULS ####Point of Care testing, Glucose [Mass/volume] in Ser um or PlasmaOrdered By: Aiden Mary on 01-01-2025 Glucose [Mass/Vol] Glucose [Mass/volume ] in Serum or Plasma Significant change up 70-100 [facility] Hematocrit Auto (Bld) [Volum e fraction]Ordered By: Aiden Mary on 01-01-2025 Hematocrit (Bld) [Volume fraction] Hematocrit [Volume Fraction] of Blood by Automated count 38.8-50.0 [facility] Hemoglobin [Mass/volume] in BloodOrdered By: Aiden Mary on 01-01-2025 Hemoglobin (Bld) [Mass/Vol] Hemoglobin [Mass/volume] in Blood 13.0-17.0 [facility] Leukocytes [#/volume] correc roe for nucleated erythrocytes in Blood by Automated counOrdered By: Aiden Mary on 01-01-2025 WBC corrected for nucl RBC Auto (Bld) [#/Vol] Leukocytes [#/volume] corrected for nucleated erythrocytes in Blood by Automated coun 4.1-10.5 [facility] Lymphocytes Auto (Bld) [#/Vo l]Ordered By: Aiden Mary on 01-01-2025 Lymphocytes (Bld) [#/Vol] Lymphocytes [#/volume] in Blood by Automated count 1.00-4.8 [facility] Lymphocytes/100 WBC Auto (Bl d)Ordered By: Aiden Mary on 01-01-2025 Lymphocytes/100 WBC (Bld) Lymphocytes/100 leukocytes in Blood by Automated count . [facility] MCH Auto (RBC) [Entitic mass ]Ordered By: Aiden Mary on 01-01-2025 MCH (RBC) [Entitic mass] MCH [Entitic mass] by Automated count 27.5-35.2 [facility] MCHC Auto (RBC) [Mass/Vol]Or dered By: Aiden Mary on 01-01-2025 MCHC (RBC) [Mass/Vol] MCHC [Mass/volume] by Automated count 32.5-35.6 [facility] MCV Auto (RBC) [Entitic vol] Ordered By: Aiden Mary on 01-01-2025 MCV (RBC) [Entitic vol] MCV [Entitic volume] by Automated count 83.5-101 [facility] Monocyte distribution width [Entitic volume] in Blood by AutomatedOrdered By: Aiden Mary on 01-01-2025 Monocyte distribution width Auto (Bld) [Entitic vol] Monocyte distribution width [Entitic volume] in Blood by Automated 0.00-20.00 [facility] Monocytes Auto (Bld) [#/Vol] Ordered By: Aiden Mary on 01-01-2025 Monocytes (Bld) [#/Vol] Automated blood monocyte count 0.0-0.8 [facility] Monocytes/100 WBC Auto (Bld) Ordered By: Aiden Mary on 01-01-2025 Monocytes/100 WBC (Bld) Automated monocyte % . [facility] Neutrophils Auto (Bld) [#/Vo l]Ordered By: Aiden Mary on 01-01-2025 Neutrophils (Bld) [#/Vol] Neutrophils [#/volume] in Blood by Automated count 1.8-7.7 [facility] Neutrophils/100 WBC Auto (Bl d)Ordered By: Aiden Mary on 01-01-2025 Neutrophils/100 WBC (Bld) Automated neutrophil % . [facility] No Panel InformationOrdered By: Aiden Mary on 01-01-2025 > 60.0 mL/Min [facility] 131.22 [facility] Nucleated erythrocytes [Pres ence] in Blood by Automated countOrdered By: Aiden Mary on 01-01-2025 Nucleated RBC Auto Ql (Bld) Nucleated erythrocytes [Presence] in Blood by Automated count 0-0.5 [facility] Platelet mean volume Auto (B ld) [Entitic vol]Ordered By: Aiden Mary on 01-01-2025 Platelet mean volume (Bld) [Entitic vol] Platelet mean volume [Entitic volume] in Blood by Automated count 6.6-10.1 [facility] Platelets Auto (Bld) [#/Vol] Ordered By: Aiden Mary on 01-01-2025 Platelets (Bld) [#/Vol] Platelets [#/volume] in Blood by Automated count 150-450 [facility] Potassium [Moles/volume] in Serum or PlasmaOrdered By: Aiden Mary on 01-01-2025 Potassium [Moles/Vol] Potassium [Moles/v olume] in Serum or Plasma 3.5-5.1 [facility] Protein [Mass/volume] in Ser um or PlasmaOrdered By: Aiden Mary on 01-01-2025 Protein [Mass/Vol] Protein [Mass/volume ] in Serum or Plasma 6.4-8.9 [facility] RBC Auto (Bld) [#/Vol]Ordere d By: Aiden Mary on 01-01-2025 RBC (Bld) [#/Vol] Erythrocytes [#/volu me] in Blood by Automated count 3.90-5.60 [facility] Serum or plasma albumin/glob ulin mass ratioOrdered By: Aiden Mary on 01-01-2025 Albumin/Globulin [Mass ratio] Serum or plasma albumin/globulin mass ratio [facility] Serum or plasma anion gap de terminationOrdered By: Aiden Mary on 01-01-2025 Anion gap [Moles/Vol] Serum or plasma an ion gap determination 6.0-15.0 [facility] Sodium [Moles/volume] in Ser um or PlasmaOrdered By: Aiden Mary on 01-01-2025 Sodium [Moles/Vol] Sodium [Moles/volume ] in Serum or Plasma 136-145 [facility] Troponin I High Sensitivityo n 01-01-2025 Troponin I High Sensitivity 12 Normal 0-20 [facility] Comment on above: Result Comment: The Troponin units of report have been changed to meet the Chest Pain Accreditation requirement, element EC5.M1l2. Troponin units are changed from pg/ml to ng/L. Also, the decimal is removed and results are in whole numbers.PERFORMED BY:[facility] [place], [place] [id number] MEDICAL DIRECTORGRAHAM HOWARD M.D. Performed By: #### H S TROP, CBC ####[facility] [place] [id number] [facility] Troponin I.cardiac [Mass/vol ume] in Serum or Plasma by Detection limit <= 0.01 ng/Ordered By: Aiden Mary on 01-01-2025 Troponin I.cardiac DL <= 0.01 ng/mL [Mass/Vol] Troponin I.cardiac [Mass/volume] in Serum or Plasma by Detection limit <= 0.01 ng/ 0-20 [facility] Urea nitrogen [Mass/volume] in Serum or PlasmaOrdered By: Aiden Mary on 01-01-2025 Urea nitrogen [Mass/Vol] Urea nitrogen [Mass/volume] in Serum or Plasma 7-25 [facility] WBC Auto (Bld) [#/Vol]Ordere d By: Aiden Mary on 01-01-2025 WBC (Bld) [#/Vol] Leukocytes [#/volume ] in Blood by Automated count 4.1-10.5 [facility] X-ray reportOrdered By: Hansel Nevarez on 01-01-2025 Study report [facility] XR chest 1V portableon 01-01 XR chest 1V portable Normal [facility] Alanine aminotransferase [En zymatic activity/volume] in Serum or PlasmaOrdered By: Arpan Ross on 12-30-2024 ALT [Catalytic activity/Vol] Alanine aminotransferase [Enzymatic activity/volume] in Serum or Plasma 7-52 [facility] Albumin [Mass/volume] in Ser um or Plasma by Bromocresol green (BCG) dye binding methoOrdered By: Arpan Ross on 12-30-2024 Albumin BCG dye [Mass/Vol] Albumin [Mass/volume] in Serum or Plasma by Bromocresol green (BCG) dye binding metho 3.5-5.7 [facility] Alkaline phosphatase [Enzyma tic activity/volume] in Serum or PlasmaOrdered By: Arpan Ross on 12-30-2024 ALP [Catalytic activity/Vol] Alkaline phosphatase [Enzymatic activity/volume] in Serum or Plasma High 34-104 [facility] Aspartate aminotransferase [ Enzymatic activity/volume] in Serum or PlasmaOrdered By: Arpan Ross on 12-30-2024 AST [Catalytic activity/Vol] Aspartate aminotransferase [Enzymatic activity/volume] in Serum or Plasma 13-39 [facility] Basophils Auto (Bld) [#/Vol] Ordered By: Arpan Ross on 12-30-2024 Basophils (Bld) [#/Vol] Automated basophil count 0.0-0.2 [facility] Basophils/100 WBC Auto (Bld) Ordered By: Arpan Ross on 12-30-2024 Basophils/100 WBC (Bld) Automated basophil % . [facility] Bilirubin.total [Mass/volume ] in Serum or PlasmaOrdered By: Arpan Ross on 12-30-2024 Bilirubin [Mass/Vol] Bilirubin.total [Mass/volume] in Serum or Plasma 0.3-1.0 [facility] CT angio neckon 12-30-2024 CT angio neck Normal [facility] CT head/brain wo conon 12-30 CT head/brain wo con Normal [facility] Calcium [Mass/volume] in Ser um or PlasmaOrdered By: Arpan Ross on 12-30-2024 Calcium [Mass/Vol] Calcium [Mass/volume ] in Serum or Plasma Low 8.6-10.3 [facility] Carbon dioxide, total [Moles /volume] in Serum or PlasmaOrdered By: Arpan Ross on 12-30-2024 CO2 [Moles/Vol] Carbon dioxide, tota l [Moles/volume] in Serum or Plasma 21.0-31.0 [facility] Chloride [Moles/volume] in S miguel or PlasmaOrdered By: Arpan Ross on 12-30-2024 Chloride [Moles/Vol] Chloride [Moles/vol ume] in Serum or Plasma 98-107 [facility] Complete Blood Count Auto Di ffon 12-30-2024 Basophils (Bld) [#/Vol] 0.1 10*3/uL Normal 0.0-0.2 [facility] Comment on above: Result Comment: PERF ORMED BY:[address] [place], [place] [phone] MEDICAL DIRECTORGRAHAM HOWARD M.D. Performed By: #### C MP, PTT, PT, HS TROP, CBC, CK ####[address] Basophils/100 WBC (Bld) 0.8 % Normal . [facility] Comment on above: Performed By: #### C MP, PTT, PT, HS TROP, CBC, CK ####[place] [id number] [facility] Eosinophils (Bld) [#/Vol] 0.3 10*3/uL Normal 0.0-0.45 [facility] Comment on above: Performed By: #### C MP, PTT, PT, HS TROP, CBC, CK ####[place] [id number] [facility] Eosinophils/100 WBC (Bld) 3.6 % Normal . [facility] Comment on above: Performed By: #### C MP, PTT, PT, HS TROP, CBC, CK ####[address] Erythrocyte distribution width (RBC) [Ratio] 13.7 % Normal 12.0-14.8 [facility] Comment on above: Performed By: #### C MP, PTT, PT, HS TROP, CBC, CK ####[address] Hematocrit (Bld) [Volume fraction] 38.9 % Normal 38.8-50.0 [facility] Comment on above: Performed By: #### C MP, PTT, PT, HS TROP, CBC, CK ####[address] Hemoglobin (Bld) [Mass/Vol] 13.0 g/dL Normal 13.0-17.0 [facility] Comment on above: Performed By: #### C MP, PTT, PT, HS TROP, CBC, CK ####[address] Lymphocytes (Bld) [#/Vol] 2.3 10*3/uL Normal 1.00-4.8 [facility] Comment on above: Performed By: #### C MP, PTT, PT, HS TROP, CBC, CK ####[address] Lymphocytes/100 WBC (Bld) 28.8 % Normal . [facility] Comment on above: Performed By: #### C MP, PTT, PT, HS TROP, CBC, CK ####[address] MCH (RBC) [Entitic mass] 30.0 pg Normal 27.5-35.2 [facility] Comment on above: Performed By: #### C MP, PTT, PT, HS TROP, CBC, CK ####[address] MCV (RBC) [Entitic vol] 89.7 fL Normal 83.5-101 [facility] Comment on above: Performed By: #### C MP, PTT, PT, HS TROP, CBC, CK ####[address] Mean Corpuscular HGB Conc 33.5 g/dL Normal 32.5-35.6 [facility] Comment on above: Performed By: #### C MP, PTT, PT, HS TROP, CBC, CK ####[address] Monocytes (Bld) [#/Vol] 0.8 10*3/uL Normal 0.0-0.8 [facility] Comment on above: Performed By: #### C MP, PTT, PT, HS TROP, CBC, CK ####[address] Monocytes/100 WBC (Bld) 18.70 % Normal 0.00-20.00 [facility] Comment on above: Performed By: #### C MP, PTT, PT, HS TROP, CBC, CK ####[address] Monocytes/100 WBC (Bld) 10.4 % Normal . [facility] Comment on above: Performed By: #### C MP, PTT, PT, HS TROP, CBC, CK ####[address] Neutrophils (Bld) [#/Vol] 4.5 10*3/uL Normal 1.8-7.7 [facility] Comment on above: Performed By: #### C MP, PTT, PT, HS TROP, CBC, CK ####[address] Neutrophils/100 WBC (Bld) 56.4 % Normal . [facility] Comment on above: Performed By: #### C MP, PTT, PT, HS TROP, CBC, CK ####[address] NRBC% 0.0 /100{WBC} Normal 0-0.5 [facility] Comment on above: Performed By: #### C MP, PTT, PT, HS TROP, CBC, CK ####[address] Platelet mean volume (Bld) [Entitic vol] 9.1 fL Normal 6.6-10.1 [facility] Comment on above: Performed By: #### C MP, PTT, PT, HS TROP, CBC, CK ####[address] Platelets (Bld) [#/Vol] 286 10*3/uL Normal 150-450 [facility] Comment on above: Performed By: #### C MP, PTT, PT, HS TROP, CBC, CK ####[address] RBC (Bld) [#/Vol] 4.33 10*6/uL Normal 3.90-5.60 [facility] Comment on above: Performed By: #### C MP, PTT, PT, HS TROP, CBC, CK ####[address] WBC (Bld) [#/Vol] 8.0 10*3/uL Normal 4.1-10.5 [facility] Comment on above: Performed By: #### C MP, PTT, PT, HS TROP, CBC, CK ####[address] Comprehensive Metabolic Pane ari 12-30-2024 Albumin [Mass/Vol] 3.5 g/dL Normal 3.5-5.7 [facility] Comment on above: Performed By: #### C MP, PTT, PT, HS TROP, CBC, CK ####[address] Albumin/Globulin [Mass ratio] 1.2 {ratio} Normal [facility] Comment on above: Performed By: #### C MP, PTT, PT, HS TROP, CBC, CK ####[address] ALP [Catalytic activity/Vol] 158 U/L High 34-104 [facility] Comment on above: Performed By: #### C MP, PTT, PT, HS TROP, CBC, CK ####[address] ALT [Catalytic activity/Vol] 51 U/L Normal 7-52 [facility] Comment on above: Performed By: #### C MP, PTT, PT, HS TROP, CBC, CK ####[address] Anion gap [Moles/Vol] 13.0 mmol/L Normal 6.0-15.0 Th e [facility] Comment on above: Performed By: #### C MP, PTT, PT, HS TROP, CBC, CK ####[address] AST [Catalytic activity/Vol] 21 U/L Normal 13-39 [facility] Comment on above: Performed By: #### C MP, PTT, PT, HS TROP, CBC, CK ####[address] Bilirubin [Mass/Vol] 0.5 mg/dL Normal 0.3-1.0 [facility] Comment on above: Performed By: #### C MP, PTT, PT, HS TROP, CBC, CK ####[address] Calcium [Mass/Vol] 8.0 mg/dL Low 8.6-10.3 [facility] Comment on above: Performed By: #### C MP, PTT, PT, HS TROP, CBC, CK ####[address] Chloride [Moles/Vol] 99 mmol/L Normal 98-107 [facility] Comment on above: Performed By: #### C MP, PTT, PT, HS TROP, CBC, CK ####[address] CO2 [Moles/Vol] 23.7 mmol/L Normal 21.0-31.0 [facility] Comment on above: Performed By: #### C MP, PTT, PT, HS TROP, CBC, CK ####[address] Creatinine [Mass/Vol] 1.30 mg/dL Normal 0.70-1.30 [facility] Comment on above: Performed By: #### C MP, PTT, PT, HS TROP, CBC, CK ####[address] Creatinine Clr Calc Pharmacy 100.63 Normal [facility] Comment on above: Result Comment: PERF ORMED BY:[address] [place], [place] [phone] MEDICAL JASE HOWARD M.D. Performed By: #### C MP, PTT, PT, HS TROP, CBC, CK ####[address] GFR/1.73 sq M.predicted MDRD (S/P/Bld) [Vol rate/Area] mL/min/{1.73_m2} Normal [facility] Comment on above: Performed By: #### C MP, PTT, PT, HS TROP, CBC, CK ####[place] [id number] [facility] Globulin (S) [Mass/Vol] 3.0 g/dL Normal [facility] Comment on above: Performed By: #### C MP, PTT, PT, HS TROP, CBC, CK ####[place] [id number] [facility] Glucose [Mass/Vol] 581 mg/dL Off scale high 70-100 Th e [facility] Comment on above: Result Comment: Crit ical Result Called to and read back by: BERTHA FRITZ at: 12/30/2024 20:49:35 by:LFM Random Glucose Reference Range is dependent on time and content of last meal. Glucose of more than 200 mg/dL in a nonstressed, ambulatory subject supports the diagnosis of Diabetes Mellitus. ADA recommended reference range Performed By: #### C MP, PTT, PT, HS TROP, CBC, CK ####[address] Potassium [Moles/Vol] 4.7 mmol/L Normal 3.5-5.1 [facility] Comment on above: Performed By: #### C MP, PTT, PT, HS TROP, CBC, CK ####[address] Protein [Mass/Vol] 6.5 g/dL Normal 6.4-8.9 [facility] Comment on above: Performed By: #### C MP, PTT, PT, HS TROP, CBC, CK ####[address] Sodium [Moles/Vol] 131 mmol/L Low 136-145 [facility] Comment on above: Performed By: #### C MP, PTT, PT, HS TROP, CBC, CK ####[place] [id number] [address] Urea nitrogen [Mass/Vol] 35 mg/dL High 7-25 [facility] Comment on above: Performed By: #### C MP, PTT, PT, HS TROP, CBC, CK ####[address] Creatine Kinaseon 12-30-2024 CK [Catalytic activity/Vol] 44 U/L Normal [facility] Comment on above: Performed By: #### C MP, PTT, PT, HS TROP, CBC, CK ####[address] Creatine kinase [Enzymatic a ctivity/volume] in Serum or PlasmaOrdered By: Arpan Ross on 12-30-2024 CK [Catalytic activity/Vol] Creatine kinase [Enzymatic activity/volume] in Serum or Plasma [facility] Creatinine [Mass/volume] in Serum or PlasmaOrdered By: Arpan Ross on 12-30-2024 Creatinine [Mass/Vol] Creatinine [Mass/v olume] in Serum or Plasma 0.70-1.30 [facility] ECG 12 lead ECGon 12-30-2024 ECG 12 lead ECG Normal [facility] Eosinophils Auto (Bld) [#/Vo l]Ordered By: Arpan Ross on 12-30-2024 Eosinophils (Bld) [#/Vol] Automated eosinophil count 0.0-0.45 [facility] Eosinophils/100 WBC Auto (Bl d)Ordered By: Arpan Ross on 12-30-2024 Eosinophils/100 WBC (Bld) Automated eosinophil % . [facility] Erythrocyte distribution wid th Auto (RBC) [Ratio]Ordered By: Arpan Ross on 12-30-2024 Erythrocyte distribution width (RBC) [Ratio] Erythrocyte distribution width [Ratio] by Automated count 12.0-14.8 [facility] Globulin Calc (S) [Mass/Vol] Ordered By: Arpan Ross on 12-30-2024 Globulin (S) [Mass/Vol] Serum globulin measurement by calculation (mass/volume) [facility] Glucose [Mass/volume] in Ser um or PlasmaOrdered By: Arpan Ross on 12-30-2024 Glucose [Mass/Vol] Glucose [Mass/volume ] in Serum or Plasma Critically high 70-100 [facility] Hematocrit Auto (Bld) [Volum e fraction]Ordered By: Arpan Ross on 12-30-2024 Hematocrit (Bld) [Volume fraction] Hematocrit [Volume Fraction] of Blood by Automated count 38.8-50.0 [facility] Hemoglobin [Mass/volume] in BloodOrdered By: Arpan Ross 12-30-2024 Hemoglobin (Bld) [Mass/Vol] Hemoglobin [Mass/volume] in Blood 13.0-17.0 [facility] INR in Platelet poor plasma by Coagulation assayOrdered By: Arpan Ross on 12-30-2024 INR Coag (PPP) [Relative time] INR in Platelet poor plasma by Coagulation assay [facility] Leukocytes [#/volume] correc roe for nucleated erythrocytes in Blood by Automated counOrdered By: Arpan Ross on 12-30-2024 WBC corrected for nucl RBC Auto (Bld) [#/Vol] Leukocytes [#/volume] corrected for nucleated erythrocytes in Blood by Automated coun 4.1-10.5 [facility] Lymphocytes Auto (Bld) [#/Vo l]Ordered By: Arpan Ross on 12-30-2024 Lymphocytes (Bld) [#/Vol] Lymphocytes [#/volume] in Blood by Automated count 1.00-4.8 [facility] Lymphocytes/100 WBC Auto (Bl d)Ordered By: Arpan Ross on 12-30-2024 Lymphocytes/100 WBC (Bld) Lymphocytes/100 leukocytes in Blood by Automated count . [facility] MCH Auto (RBC) [Entitic mass ]Ordered By: Arpan Ross on 12-30-2024 MCH (RBC) [Entitic mass] MCH [Entitic mass] by Automated count 27.5-35.2 [facility] MCHC Auto (RBC) [Mass/Vol]Or dered By: Arpan Ross on 12-30-2024 MCHC (RBC) [Mass/Vol] MCHC [Mass/volume] by Automated count 32.5-35.6 [facility] MCV Auto (RBC) [Entitic vol] Ordered By: Arpan Ross on 12-30-2024 MCV (RBC) [Entitic vol] MCV [Entitic volume] by Automated count 83.5-101 [facility] Monocyte distribution width [Entitic volume] in Blood by AutomatedOrdered By: Arpan Ross on 12-30-2024 Monocyte distribution width Auto (Bld) [Entitic vol] Monocyte distribution width [Entitic volume] in Blood by Automated 0.00-20.00 [facility] Monocytes Auto (Bld) [#/Vol] Ordered By: Arpan Ross on 12-30-2024 Monocytes (Bld) [#/Vol] Automated blood monocyte count 0.0-0.8 [facility] Monocytes/100 WBC Auto (Bld) Ordered By: Arpan Ross on 12-30-2024 Monocytes/100 WBC (Bld) Automated monocyte % . [facility] Neutrophils Auto (Bld) [#/Vo l]Ordered By: Arpan Ross on 12-30-2024 Neutrophils (Bld) [#/Vol] Neutrophils [#/volume] in Blood by Automated count 1.8-7.7 [facility] Neutrophils/100 WBC Auto (Bl d)Ordered By: Arpan Ross on 12-30-2024 Neutrophils/100 WBC (Bld) Automated neutrophil % . [facility] No Panel InformationOrdered By: Arpan Ross on 12-30-2024 > 60.0 mL/Min [facility] 100.63 [facility] See comment [facility] Nucleated erythrocytes [Pres ence] in Blood by Automated countOrdered By: Arpan Ross on 12-30-2024 Nucleated RBC Auto Ql (Bld) Nucleated erythrocytes [Presence] in Blood by Automated count 0-0.5 [facility] Partial Thromboplastin Timeo n 12-30-2024 aPTT Coag (Bld) [Time] 26.9 s Normal 25.1-36.5 Th e [facility] Comment on above: Result Comment: A he matocrit value greater than 55% may lead to inaccurate results in coagulation testing. Patients having hematocrit values >55% require a special collection tube for coagulation studies. Please contact the laboratory at [phone] for redraw instructions.PERFORMED BY:[facility] [place], [place] [id number] MEDICAL DIRECTORGRAHAM HOWARD M.D. Performed By: #### C MP, PTT, PT, HS TROP, CBC, CK ####[facility] [place] [address] [facility] Platelet mean volume Auto (B ld) [Entitic vol]Ordered By: Arpan Ross on 12-30-2024 Platelet mean volume (Bld) [Entitic vol] Platelet mean volume [Entitic volume] in Blood by Automated count 6.6-10.1 [facility] Platelets Auto (Bld) [#/Vol] Ordered By: Arpan Ross on 12-30-2024 Platelets (Bld) [#/Vol] Platelets [#/volume] in Blood by Automated count 150-450 [facility] Potassium [Moles/volume] in Serum or PlasmaOrdered By: Arpan Ross on 12-30-2024 Potassium [Moles/Vol] Potassium [Moles/v olume] in Serum or Plasma 3.5-5.1 [facility] Protein [Mass/volume] in Ser um or PlasmaOrdered By: Arpan Ross on 12-30-2024 Protein [Mass/Vol] Protein [Mass/volume ] in Serum or Plasma 6.4-8.9 [facility] Prothrombin Time INRon 12-30 INR Coag (PPP) [Relative time] 0.9 {INR} Normal [facility] Comment on above: Result Comment: INR Therapeutic Range A) Pre- and Peroperative OAT started two weeks before surgery. NOT HIP SURGERY: 1.5 - 2.5 HIP SURGERY: 2 - 3 B) Primary and secondary prevention of venous THROMBOSIS: 2 - 3 C) Active venous thrombosis, pulmonary embolism and prevention of recurrent venous thrombosis: 2 - 3 D) Prevention of arterial thromboembolism including patients with mechanical heart valves: 3 - 4.5 Performed By: #### C MP, PTT, PT, HS TROP, CBC, CK ####[facility] [address] [place] [id number] [facility] PT Coag (PPP) [Time] 9.8 s Normal 9.0-12.9 [facility] Comment on above: Result Comment: A he matocrit value greater than 55% may lead to inaccurate results in coagulation testing. Patients having hematocrit values >55% require a special collection tube for coagulation studies. Please contact the laboratory at [phone] for redraw instructions. Performed By: #### C MP, PTT, PT, HS TROP, CBC, CK ####[facility] [place] [id number] [facility] Prothrombin time (PT)Ordered By: Arpan Ross on 12-30-2024 PT Coag (PPP) [Time] Prothrombin time (PT) 9.0- 12.9 [facility] RBC Auto (Bld) [#/Vol]Ordere d By: Arpan Ross on 12-30-2024 RBC (Bld) [#/Vol] Erythrocytes [#/volu me] in Blood by Automated count 3.90-5.60 [facility] Serum or plasma albumin/glob ulin mass ratioOrdered By: Arpan Ross on 12-30-2024 Albumin/Globulin [Mass ratio] Serum or plasma albumin/globulin mass ratio [facility] Serum or plasma anion gap de terminationOrdered By: Arpan Ross on 12-30-2024 Anion gap [Moles/Vol] Serum or plasma an ion gap determination 6.0-15.0 [facility] Sodium [Moles/volume] in Ser um or PlasmaOrdered By: Arpan Ross on 12-30-2024 Sodium [Moles/Vol] Sodium [Moles/volume ] in Serum or Plasma Low 136-145 [facility] Troponin I High Sensitivityo n 12-30-2024 Troponin I High Sensitivity 14 Normal 0-20 [facility] Comment on above: Result Comment: The Troponin units of report have been changed to meet the Chest Pain Accreditation requirement, element EC5.M1l2. Troponin units are changed from pg/ml to ng/L. Also, the decimal is removed and results are in whole numbers.PERFORMED BY:[facility] [place], [place] [id number] MEDICAL DIRECTORGRAHAM HOWARD M.D. Performed By: #### C MP, PTT, PT, HS TROP, CBC, CK ####[facility] [place] [address] [facility] Troponin I.cardiac [Mass/vol ume] in Serum or Plasma by Detection limit <= 0.01 ng/Ordered By: Arpan Ross on 12-30-2024 Troponin I.cardiac DL <= 0.01 ng/mL [Mass/Vol] Troponin I.cardiac [Mass/volume] in Serum or Plasma by Detection limit <= 0.01 ng/ 0-20 [facility] Urea nitrogen [Mass/volume] in Serum or PlasmaOrdered By: Arpan Ross on 12-30-2024 Urea nitrogen [Mass/Vol] Urea nitrogen [Mass/volume] in Serum or Plasma High 7-25 [facility] WBC Auto (Bld) [#/Vol]Ordere d By: Arpan Ross on 12-30-2024 WBC (Bld) [#/Vol] Leukocytes [#/volume ] in Blood by Automated count 4.1-10.5 [facility] X-ray reportOrdered By: Amado Peres on 12-30-2024 Study report [facility] Work Phone: XR chest 1V portableon 12-30 XR chest 1V portable Normal [facility] aPTT in Platelet poor plasma by Coagulation assayOrdered By: Arpan Ross on 12-30-2024 aPTT Coag (PPP) [Time] Activated partial thromboplastin time (aPTT) in platelet poor plasma by coagulation a 25.1-36.5 [facility] Alanine aminotransferase [En zymatic activity/volume] in Serum or PlasmaOrdered By: Aiden Mary on 12-29-2024 ALT [Catalytic activity/Vol] Alanine aminotransferase [Enzymatic activity/volume] in Serum or Plasma High 7-52 [facility] Albumin [Mass/volume] in Ser um or Plasma by Bromocresol green (BCG) dye binding methoOrdered By: Aiden Mary on 12-29-2024 Albumin BCG dye [Mass/Vol] Albumin [Mass/volume] in Serum or Plasma by Bromocresol green (BCG) dye binding metho 3.5-5.7 [facility] Alkaline phosphatase [Enzyma tic activity/volume] in Serum or PlasmaOrdered By: Aiden Mary on 12-29-2024 ALP [Catalytic activity/Vol] Alkaline phosphatase [Enzymatic activity/volume] in Serum or Plasma High 34-104 [facility] Aspartate aminotransferase [ Enzymatic activity/volume] in Serum or PlasmaOrdered By: Aiden Mary on 12-29-2024 AST [Catalytic activity/Vol] Aspartate aminotransferase [Enzymatic activity/volume] in Serum or Plasma 13-39 [facility] Basophils Auto (Bld) [#/Vol] Ordered By: Aiden Mary on 12-29-2024 Basophils (Bld) [#/Vol] Automated basophil count 0.0-0.2 [facility] Basophils/100 WBC Auto (Bld) Ordered By: Aiden Mary on 12-29-2024 Basophils/100 WBC (Bld) Automated basophil % . [facility] Bilirubin.total [Mass/volume ] in Serum or PlasmaOrdered By: Aiden Mary on 12-29-2024 Bilirubin [Mass/Vol] Bilirubin.total [Mass/volume] in Serum or Plasma 0.3-1.0 [facility] Calcium [Mass/volume] in Ser um or PlasmaOrdered By: Aiden Mary on 12-29-2024 Calcium [Mass/Vol] Calcium [Mass/volume ] in Serum or Plasma Low 8.6-10.3 [facility] Carbon dioxide, total [Moles /volume] in Serum or PlasmaOrdered By: Aiden Mary on 12-29-2024 CO2 [Moles/Vol] Carbon dioxide, tota l [Moles/volume] in Serum or Plasma 21.0-31.0 [facility] Chloride [Moles/volume] in S miguel or PlasmaOrdered By: Aiden Mary on 12-29-2024 Chloride [Moles/Vol] Chloride [Moles/vol ume] in Serum or Plasma 98-107 [facility] Complete Blood Count Auto Di ffon 12-29-2024 Basophils (Bld) [#/Vol] 0.1 10*3/uL Normal 0.0-0.2 [facility] Comment on above: Result Comment: PERF ORMED BY:[address] [place], [place] [phone] MEDICAL JASE HOWARD M.D. Performed By: #### C MP, CBC, HS TROP ####[address] [address] [facility] Basophils/100 WBC (Bld) 0.6 % Normal . [facility] Comment on above: Performed By: #### C MP, CBC, HS TROP ####[place] [id number] [facility] Eosinophils (Bld) [#/Vol] 0.0 10*3/uL Normal 0.0-0.45 [facility] Comment on above: Performed By: #### C MP, CBC, HS TROP ####[place] [id number] [facility] Eosinophils/100 WBC (Bld) 0.1 % Normal . [facility] Comment on above: Performed By: #### C MP, CBC, HS TROP ####[place] [id number] [facility] Erythrocyte distribution width (RBC) [Ratio] 13.6 % Normal 12.0-14.8 [facility] Comment on above: Performed By: #### C MP, CBC, HS TROP ####[place] [id number] [facility] Hematocrit (Bld) [Volume fraction] 41.2 % Normal 38.8-50.0 [facility] Comment on above: Performed By: #### C MP, CBC, HS TROP ####[place] [id number] [facility] Hemoglobin (Bld) [Mass/Vol] 14.1 g/dL Normal 13.0-17.0 [facility] Comment on above: Performed By: #### C MP, CBC, HS TROP ####[address] Lymphocytes (Bld) [#/Vol] 0.8 10*3/uL Low 1.00-4.8 [facility] Comment on above: Performed By: #### C MP, CBC, HS TROP ####[address] Lymphocytes/100 WBC (Bld) 7.9 % Normal . [facility] Comment on above: Performed By: #### C MP, CBC, HS TROP ####[address] MCH (RBC) [Entitic mass] 29.9 pg Normal 27.5-35.2 [facility] Comment on above: Performed By: #### C MP, CBC, HS TROP ####[address] MCV (RBC) [Entitic vol] 87.6 fL Normal 83.5-101 [facility] Comment on above: Performed By: #### C MP, CBC, HS TROP ####[address] Mean Corpuscular HGB Conc 34.2 g/dL Normal 32.5-35.6 [facility] Comment on above: Performed By: #### C MP, CBC, HS TROP ####[address] Monocytes (Bld) [#/Vol] 0.6 10*3/uL Normal 0.0-0.8 [facility] Comment on above: Performed By: #### C MP, CBC, HS TROP ####[address] Monocytes/100 WBC (Bld) 17.92 % Normal 0.00-20.00 [facility] Comment on above: Performed By: #### C MP, CBC, HS TROP ####[address] [place] [address] [facility] Monocytes/100 WBC (Bld) 5.5 % Normal . [facility] Comment on above: Performed By: #### C MP, CBC, HS TROP ####[address] [address] [facility] Neutrophils (Bld) [#/Vol] 8.8 10*3/uL High 1.8-7.7 [facility] Comment on above: Performed By: #### C MP, CBC, HS TROP ####[place] [id number] [facility] Neutrophils/100 WBC (Bld) 85.9 % Normal . [facility] Comment on above: Performed By: #### C MP, CBC, HS TROP ####[place] [id number] [facility] NRBC% 0.1 /100{WBC} Normal 0-0.5 [facility] Comment on above: Performed By: #### C MP, CBC, HS TROP ####[place] [id number] [facility] Platelet mean volume (Bld) [Entitic vol] 8.6 fL Normal 6.6-10.1 [facility] Comment on above: Performed By: #### C MP, CBC, HS TROP ####[address] [address] [facility] Platelets (Bld) [#/Vol] 282 10*3/uL Normal 150-450 [facility] Comment on above: Performed By: #### C MP, CBC, HS TROP ####[address] [address] [facility] RBC (Bld) [#/Vol] 4.70 10*6/uL Normal 3.90-5.60 [facility] Comment on above: Performed By: #### C MP, CBC, HS TROP ####[address] [address] [facility] WBC (Bld) [#/Vol] 10.3 10*3/uL Normal 4.1-10.5 [facility] Comment on above: Performed By: #### C MP, CBC, HS TROP ####[place] [id number] [facility] Comprehensive Metabolic Pane ari 12-29-2024 Albumin [Mass/Vol] 3.8 g/dL Normal 3.5-5.7 [facility] Comment on above: Performed By: #### C MP, CBC, HS TROP ####[place] [id number] [facility] Albumin/Globulin [Mass ratio] 1.1 {ratio} Normal [facility] Comment on above: Performed By: #### C MP, CBC, HS TROP ####[address] ALP [Catalytic activity/Vol] 177 U/L High 34-104 [facility] Comment on above: Performed By: #### C MP, CBC, HS TROP ####[address] ALT [Catalytic activity/Vol] 67 U/L High 7-52 [facility] Comment on above: Performed By: #### C MP, CBC, HS TROP ####[place] [id number] [facility] Anion gap [Moles/Vol] 14.2 mmol/L Normal 6.0-15.0 [facility] Comment on above: Performed By: #### C MP, CBC, HS TROP ####[address] AST [Catalytic activity/Vol] 31 U/L Normal 13-39 [facility] Comment on above: Performed By: #### C MP, CBC, HS TROP ####[place] [id number] [facility] Bilirubin [Mass/Vol] 0.5 mg/dL Normal 0.3-1.0 [facility] Comment on above: Performed By: #### C MP, CBC, HS TROP ####[place] [id number] [place] Calcium [Mass/Vol] 8.5 mg/dL Low 8.6-10.3 [facility] Comment on above: Performed By: #### C MP, CBC, HS TROP ####[address] Chloride [Moles/Vol] 98 mmol/L Normal 98-107 [facility] Comment on above: Performed By: #### C MP, CBC, HS TROP ####[address] CO2 [Moles/Vol] 21.5 mmol/L Normal 21.0-31.0 [facility] Comment on above: Performed By: #### C MP, CBC, HS TROP ####[address] Creatinine [Mass/Vol] 0.89 mg/dL Normal 0.70-1.30 [facility] Comment on above: Performed By: #### C MP, CBC, HS TROP ####[address] Creatinine Clr Calc Pharmacy 143.81 Normal [facility] Comment on above: Result Comment: PERF ORMED BY:[address] [place], [place] [phone] MEDICAL DIRECTORGRAHAM HOWARD M.D. Performed By: #### C MP, CBC, HS TROP ####[address] GFR/1.73 sq M.predicted MDRD (S/P/Bld) [Vol rate/Area] mL/min/{1.73_m2} Normal [facility] Comment on above: Performed By: #### C MP, CBC, HS TROP ####[place] [id number] [facility] Globulin (S) [Mass/Vol] 3.5 g/dL Normal [facility] Comment on above: Performed By: #### C MP, CBC, HS TROP ####[address] Glucose [Mass/Vol] 505 mg/dL Off scale high 70-100 Th e [facility] Comment on above: Result Comment: Crit ical Result Called to and read back by: MAURICIO MAGALLON at: 12/29/2024 11:27 by:HARLAN Random Glucose Reference Range is dependent on time and content of last meal. Glucose of more than 200 mg/dL in a nonstressed, ambulatory subject supports the diagnosis of Diabetes Mellitus. ADA recommended reference range Performed By: #### C MP, CBC, HS TROP ####[place] [address] [place] [id number] [facility] Potassium [Moles/Vol] 4.7 mmol/L Normal 3.5-5.1 [facility] Comment on above: Performed By: #### C MP, CBC, HS TROP ####[place] [address] [place] [id number] [facility] Protein [Mass/Vol] 7.3 g/dL Normal 6.4-8.9 [facility] Comment on above: Performed By: #### C MP, CBC, HS TROP ####[place] [id number] [facility] Sodium [Moles/Vol] 129 mmol/L Low 136-145 [facility] Comment on above: Performed By: #### C MP, CBC, HS TROP ####[place] [id number] [facility] Urea nitrogen [Mass/Vol] 21 mg/dL Normal 7-25 [facility] Comment on above: Performed By: #### C MP, CBC, HS TROP ####[place] [id number] [place] Creatinine [Mass/volume] in Serum or PlasmaOrdered By: Aiden Mary on 12-29-2024 Creatinine [Mass/Vol] Creatinine [Mass/v olume] in Serum or Plasma 0.70-1.30 [facility] ECG 12 lead ECGon 12-29-2024 ECG 12 lead ECG Normal [facility] Eosinophils Auto (Bld) [#/Vo l]Ordered By: Aiden Mary on 12-29-2024 Eosinophils (Bld) [#/Vol] Automated eosinophil count 0.0-0.45 [facility] Eosinophils/100 WBC Auto (Bl d)Ordered By: Aiden Mary on 12-29-2024 Eosinophils/100 WBC (Bld) Automated eosinophil % . [facility] Erythrocyte distribution wid th Auto (RBC) [Ratio]Ordered By: Aiden Mary on 12-29-2024 Erythrocyte distribution width (RBC) [Ratio] Erythrocyte distribution width [Ratio] by Automated count 12.0-14.8 [facility] Globulin Calc (S) [Mass/Vol] Ordered By: Aiden Mary on 12-29-2024 Globulin (S) [Mass/Vol] Serum globulin measurement by calculation (mass/volume) [facility] Glucose [Mass/volume] in Ser um or PlasmaOrdered By: Aiden Mary on 12-29-2024 Glucose [Mass/Vol] Glucose [Mass/volume ] in Serum or Plasma Critically high 70-100 [facility] Hematocrit Auto (Bld) [Volum e fraction]Ordered By: Aiden Mary on 12-29-2024 Hematocrit (Bld) [Volume fraction] Hematocrit [Volume Fraction] of Blood by Automated count 38.8-50.0 [facility] Hemoglobin [Mass/volume] in BloodOrdered By: Aiden Mary on 12-29-2024 Hemoglobin (Bld) [Mass/Vol] Hemoglobin [Mass/volume] in Blood 13.0-17.0 [facility] Leukocytes [#/volume] correc roe for nucleated erythrocytes in Blood by Automated counOrdered By: Aiden Mary on 12-29-2024 WBC corrected for nucl RBC Auto (Bld) [#/Vol] Leukocytes [#/volume] corrected for nucleated erythrocytes in Blood by Automated coun 4.1-10.5 [facility] Lymphocytes Auto (Bld) [#/Vo l]Ordered By: Aiden Mary on 12-29-2024 Lymphocytes (Bld) [#/Vol] Lymphocytes [#/volume] in Blood by Automated count Low 1.00-4.8 [facility] Lymphocytes/100 WBC Auto (Bl d)Ordered By: Aiden Mary on 12-29-2024 Lymphocytes/100 WBC (Bld) Lymphocytes/100 leukocytes in Blood by Automated count . [facility] MCH Auto (RBC) [Entitic mass ]Ordered By: Aiden Mary on 12-29-2024 MCH (RBC) [Entitic mass] MCH [Entitic mass] by Automated count 27.5-35.2 [facility] MCHC Auto (RBC) [Mass/Vol]Or dered By: Aiden Mary on 12-29-2024 MCHC (RBC) [Mass/Vol] MCHC [Mass/volume] by Automated count 32.5-35.6 [facility] MCV Auto (RBC) [Entitic vol] Ordered By: Aiden Mary on 12-29-2024 MCV (RBC) [Entitic vol] MCV [Entitic volume] by Automated count 83.5-101 [facility] Monocyte distribution width [Entitic volume] in Blood by AutomatedOrdered By: Aiden Mary on 12-29-2024 Monocyte distribution width Auto (Bld) [Entitic vol] Monocyte distribution width [Entitic volume] in Blood by Automated 0.00-20.00 [facility] Monocytes Auto (Bld) [#/Vol] Ordered By: Aiden Mary on 12-29-2024 Monocytes (Bld) [#/Vol] Automated blood monocyte count 0.0-0.8 [facility] Monocytes/100 WBC Auto (Bld) Ordered By: Aiden Mary on 12-29-2024 Monocytes/100 WBC (Bld) Automated monocyte % . [facility] Neutrophils Auto (Bld) [#/Vo l]Ordered By: Aiden Mary on 12-29-2024 Neutrophils (Bld) [#/Vol] Neutrophils [#/volume] in Blood by Automated count High 1.8-7.7 [facility] Neutrophils/100 WBC Auto (Bl d)Ordered By: Aiden Mary on 12-29-2024 Neutrophils/100 WBC (Bld) Automated neutrophil % . [facility] No Panel InformationOrdered By: Aiden Mary on 12-29-2024 > 60.0 mL/Min [facility] 143.81 [facility] Nucleated erythrocytes [Pres ence] in Blood by Automated countOrdered By: Aiden Mary on 12-29-2024 Nucleated RBC Auto Ql (Bld) Nucleated erythrocytes [Presence] in Blood by Automated count 0-0.5 [facility] Platelet mean volume Auto (B ld) [Entitic vol]Ordered By: Aiden Mary on 12-29-2024 Platelet mean volume (Bld) [Entitic vol] Platelet mean volume [Entitic volume] in Blood by Automated count 6.6-10.1 [facility] Platelets Auto (Bld) [#/Vol] Ordered By: Aiden Mary on 12-29-2024 Platelets (Bld) [#/Vol] Platelets [#/volume] in Blood by Automated count 150-450 [facility] Potassium [Moles/volume] in Serum or PlasmaOrdered By: Aiden Mary on 12-29-2024 Potassium [Moles/Vol] Potassium [Moles/v olume] in Serum or Plasma 3.5-5.1 [facility] Protein [Mass/volume] in Ser um or PlasmaOrdered By: Aiden Mary on 12-29-2024 Protein [Mass/Vol] Protein [Mass/volume ] in Serum or Plasma 6.4-8.9 [facility] RBC Auto (Bld) [#/Vol]Ordere d By: Aiden Mary on 12-29-2024 RBC (Bld) [#/Vol] Erythrocytes [#/volu me] in Blood by Automated count 3.90-5.60 [facility] Serum or plasma albumin/glob ulin mass ratioOrdered By: Aiden Mary on 12-29-2024 Albumin/Globulin [Mass ratio] Serum or plasma albumin/globulin mass ratio [facility] Serum or plasma anion gap de terminationOrdered By: Aiden Mary on 12-29-2024 Anion gap [Moles/Vol] Serum or plasma an ion gap determination 6.0-15.0 [facility] Sodium [Moles/volume] in Ser um or PlasmaOrdered By: Aiden Mary on 12-29-2024 Sodium [Moles/Vol] Sodium [Moles/volume ] in Serum or Plasma Low 136-145 [facility] Troponin I High Sensitivityo n 12-29-2024 Troponin I High Sensitivity 10 Normal 0-20 [facility] Comment on above: Result Comment: The Troponin units of report have been changed to meet the Chest Pain Accreditation requirement, element EC5.M1l2. Troponin units are changed from pg/ml to ng/L. Also, the decimal is removed and results are in whole numbers.PERFORMED BY:[place] [address] [address] [place], [place] [phone] MEDICAL JASE HOWARD M.D. Performed By: #### C MP, CBC, HS TROP ####[facility] [place] [address] [facility] Troponin I.cardiac [Mass/vol ume] in Serum or Plasma by Detection limit <= 0.01 ng/Ordered By: Aiden Mary on 12-29-2024 Troponin I.cardiac DL <= 0.01 ng/mL [Mass/Vol] Troponin I.cardiac [Mass/volume] in Serum or Plasma by Detection limit <= 0.01 ng/ 0-20 [facility] Urea nitrogen [Mass/volume] in Serum or PlasmaOrdered By: Aiden Mary on 12-29-2024 Urea nitrogen [Mass/Vol] Urea nitrogen [Mass/volume] in Serum or Plasma 02-25 [facility] WBC Auto (Bld) [#/Vol]Ordere d By: Aiden Mary on 12-29-2024 WBC (Bld) [#/Vol] Leukocytes [#/volume ] in Blood by Automated count 4.1-10.5 [facility] ECG 12 lead ECGon 12-28-2024 ECG 12 lead ECG Normal [facility] ECG 12 lead ECGon 12-26-2024 ECG 12 lead ECG Normal [facility] ECG 12 lead ECGon 12-25-2024 ECG 12 lead ECG Normal [facility] Glucose Glucometer (BldC) [M ass/Vol]Ordered By: PROVIDER TEMP on 12-25-2024 Glucose [Mass/Vol] Capillary blood gluc ose measurement by glucometer (mass/volume) [facility] Glucose Poct Glucometerson 0 12-25-2024 Glucose [Mass/Vol] 218 mg/dL Normal [facility] Comment on above: Result Comment: [place] Glucose Reference Range is dependent on time and content of last meal. Glucose of more than 200 mg/dL in a nonstressed, ambulatory subject supports the diagnosis of Diabetes Mellitus.PERFORMED BY:[facility] [place], [place] [phone] MEDICAL JASE HOWARD M.D. Performed By: #### G LULS ####Point of Care testing, X-ray reportOrdered By: Robi Cruz on 12-25-2024 Study report [facility] Work Phone: XR cervical spine 5V*on 12-03 XR cervical spine 5V* Normal [facility] Glucose Glucometer (BldC) [M ass/Vol]Ordered By: Nestor Weeks on 12-23-2024 Glucose [Mass/Vol] Capillary blood gluc ose measurement by glucometer (mass/volume) Critically high [facility] Glucose Poct Glucometerson 0 12-23-2024 Commemt1 Normal [facility] Comment on above: Result Comment: Glu2 : WILL NOTIFY DR/RNPERFORMED BY:[place] [address] [place], [place] [phone] MEDICAL DIRECTORLSIA CARRINGTON M.D. Performed By: #### G LULS ####Point of Care testing, Glucose [Mass/Vol] 483 mg/dL Off scale high Th e [facility] Comment on above: Result Comment: [place] Glucose Reference Range is dependent on time and content of last meal. Glucose of more than 200 mg/dL in a nonstressed, ambulatory subject supports the diagnosis of Diabetes Mellitus. Performed By: #### G LULS ####Point of Care testing, No Panel InformationOrdered By: Nestor Weeks on 12-23-2024 See comment [facility] Glucose Glucometer (BldC) [M ass/Vol]Ordered By: Clayton Garber on 12-17-2024 Glucose [Mass/Vol] Capillary blood gluc ose measurement by glucometer (mass/volume) Critically high [facility] Glucose Poct Glucometerson 0 12-17-2024 Commemt1 Normal [facility] Comment on above: Result Comment: Glu2 : Will Repeat TestPERFORMED BY:[place] [address] [place] [phone] MEDICAL DIRECTORLISA CARRINGTON M.D. Performed By: #### G LULS ####Point of Care testing, Glucose [Mass/Vol] 509 mg/dL Off scale high Th e [facility] Comment on above: Result Comment: [place] Glucose Reference Range is dependent on time and content of last meal. Glucose of more than 200 mg/dL in a nonstressed, ambulatory subject supports the diagnosis of Diabetes Mellitus. Performed By: #### G LULS ####Point of Care testing, No Panel InformationOrdered By: Clayton Garber on 12-17-2024 See comment [facility] Aerobic culture with sensiti vityOrdered By: Conrad Torres on 12-07-2024 Bacteria identified Aer cx Nom (Unsp spec) Aerobic culture with sensitivity [facility] Superficial Wound Cultureon 12-07-2024 Superficial Wound Culture Normal [facility] Comment on above: Performed By: #### C USUP ####[address] [address] [facility] B-Type Natriuretic Peptideon 12-02-2024 Natriuretic peptide B (Bld) [Mass/Vol] 36.0 pg/mL Normal 5-100 [facility] Comment on above: Result Comment: PERF ORMED BY:[address] [place], [place] [phone] MEDICAL DIRECTORLISA CARRINGTON M.D. Performed By: #### B CUT OFF OPERATOR SCORER, CBC ####[address] [address] [facility] Basophils Auto (Bld) [#/Vol] Ordered By: Gabriel Berman on 12-02-2024 Basophils (Bld) [#/Vol] Automated basophil count 0.0-0.2 [facility] Basophils/100 WBC Auto (Bld) Ordered By: Gabriel Berman on 12-02-2024 Basophils/100 WBC (Bld) Automated basophil % . [facility] Complete Blood Count Auto Di ffon 12-02-2024 Basophils (Bld) [#/Vol] 0.1 10*3/uL Normal 0.0-0.2 [facility] Comment on above: Result Comment: PERF ORMED BY:[place] [address] [place], [place] [phone] MEDICAL DIRECTORLISA CARRINGTON M.D. Performed By: #### B CUT OFF OPERATOR SCORER, CBC ####[address] Basophils/100 WBC (Bld) 0.4 % Normal . [facility] Comment on above: Performed By: #### B CUT OFF OPERATOR SCORER, CBC ####[address] Eosinophils (Bld) [#/Vol] 0.0 10*3/uL Normal 0.0-0.45 [facility] Comment on above: Performed By: #### B CUT OFF OPERATOR SCORER, CBC ####[address] Eosinophils/100 WBC (Bld) 0.0 % Normal . [facility] Comment on above: Performed By: #### B CUT OFF OPERATOR SCORER, CBC ####[address] Erythrocyte distribution width (RBC) [Ratio] 13.4 % Normal 12.0-14.8 [facility] Comment on above: Performed By: #### B CUT OFF OPERATOR SCORER, CBC ####[address] Hematocrit (Bld) [Volume fraction] 48.6 % Normal 38.8-50.0 [facility] Comment on above: Performed By: #### B CUT OFF OPERATOR SCORER, CBC ####[address] Hemoglobin (Bld) [Mass/Vol] 16.8 g/dL Normal 13.0-17.0 [facility] Comment on above: Performed By: #### B CUT OFF OPERATOR SCORER, CBC ####[address] Lymphocytes (Bld) [#/Vol] 0.5 10*3/uL Low 1.00-4.8 [facility] Comment on above: Performed By: #### B CUT OFF OPERATOR SCORER, CBC ####[address] Lymphocytes/100 WBC (Bld) 3.2 % Normal . [facility] Comment on above: Performed By: #### B CUT OFF OPERATOR SCORER, CBC ####[address] MCH (RBC) [Entitic mass] 30.5 pg Normal 27.5-35.2 [facility] Comment on above: Performed By: #### B CUT OFF OPERATOR SCORER, CBC ####[address] MCV (RBC) [Entitic vol] 88.3 fL Normal 83.5-101 [facility] Comment on above: Performed By: #### B CUT OFF OPERATOR SCORER, CBC ####[address] Mean Corpuscular HGB Conc 34.5 g/dL Normal 32.5-35.6 [facility] Comment on above: Performed By: #### B CUT OFF OPERATOR SCORER, CBC ####[address] Monocyte Distribution Width Not performed Normal 0.00-20.00 [facility] Comment on above: Result Comment: Unab le to calculate MDW because the Absolute Monocyte Count is <0.8. Performed By: #### B CUT OFF OPERATOR SCORER, CBC ####[address] Monocytes (Bld) [#/Vol] 0.1 10*3/uL Normal 0.0-0.8 [facility] Comment on above: Performed By: #### B CUT OFF OPERATOR SCORER, CBC ####[address] Monocytes/100 WBC (Bld) 0.9 % Normal . [facility] Comment on above: Performed By: #### B CUT OFF OPERATOR SCORER, CBC ####[address] Neutrophils (Bld) [#/Vol] 15.0 10*3/uL High 1.8-7.7 [facility] Comment on above: Performed By: #### B CUT OFF OPERATOR SCORER, CBC ####[address] Neutrophils/100 WBC (Bld) 95.5 % Normal . [facility] Comment on above: Performed By: #### B CUT OFF OPERATOR SCORER, CBC ####[address] NRBC% 0.0 /100{WBC} Normal 0-0.5 [facility] Comment on above: Performed By: #### B CUT OFF OPERATOR SCORER, CBC ####[address] Platelet mean volume (Bld) [Entitic vol] 8.8 fL Normal 6.6-10.1 [facility] Comment on above: Performed By: #### B CUT OFF OPERATOR SCORER, CBC ####[address] Platelets (Bld) [#/Vol] 358 10*3/uL Normal 150-450 [facility] Comment on above: Performed By: #### B CUT OFF OPERATOR SCORER, CBC ####[address] RBC (Bld) [#/Vol] 5.51 10*6/uL Normal 3.90-5.60 [facility] Comment on above: Performed By: #### B CUT OFF OPERATOR SCORER, CBC ####[address] WBC (Bld) [#/Vol] 15.7 10*3/uL High 4.1-10.5 [facility] Comment on above: Performed By: #### B CUT OFF OPERATOR SCORER, CBC ####[address] ECG 12 lead ECGon 12-02-2024 ECG 12 lead ECG Normal [facility] Eosinophils Auto (Bld) [#/Vo l]Ordered By: Gabriel Berman on 12-02-2024 Eosinophils (Bld) [#/Vol] Automated eosinophil count 0.0-0.45 [facility] Eosinophils/100 WBC Auto (Bl d)Ordered By: Gabriel Berman on 12-02-2024 Eosinophils/100 WBC (Bld) Automated eosinophil % . [facility] Erythrocyte distribution wid th Auto (RBC) [Ratio]Ordered By: Gabriel Berman on 12-02-2024 Erythrocyte distribution width (RBC) [Ratio] Erythrocyte distribution width [Ratio] by Automated count 12.0-14.8 [facility] Hematocrit Auto (Bld) [Volum e fraction]Ordered By: Gabriel Berman on 12-02-2024 Hematocrit (Bld) [Volume fraction] Hematocrit [Volume Fraction] of Blood by Automated count 38.8-50.0 [facility] Hemoglobin [Mass/volume] in BloodOrdered By: Gabriel Berman on 12-02-2024 Hemoglobin (Bld) [Mass/Vol] Hemoglobin [Mass/volume] in Blood 13.0-17.0 [facility] Leukocytes [#/volume] correc roe for nucleated erythrocytes in Blood by Automated counOrdered By: Gabriel Berman on 12-02-2024 WBC corrected for nucl RBC Auto (Bld) [#/Vol] Leukocytes [#/volume] corrected for nucleated erythrocytes in Blood by Automated coun High 4.1-10.5 [facility] Lymphocytes Auto (Bld) [#/Vo l]Ordered By: Gabriel Berman on 12-02-2024 Lymphocytes (Bld) [#/Vol] Lymphocytes [#/volume] in Blood by Automated count Low 1.00-4.8 [facility] Lymphocytes/100 WBC Auto (Bl d)Ordered By: Gabriel Berman on 12-02-2024 Lymphocytes/100 WBC (Bld) Lymphocytes/100 leukocytes in Blood by Automated count . [facility] MCH Auto (RBC) [Entitic mass ]Ordered By: Gabriel Berman on 12-02-2024 MCH (RBC) [Entitic mass] MCH [Entitic mass] by Automated count 27.5-35.2 [facility] MCHC Auto (RBC) [Mass/Vol]Or dered By: Gabriel Berman on 12-02-2024 MCHC (RBC) [Mass/Vol] MCHC [Mass/volume] by Automated count 32.5-35.6 [facility] MCV Auto (RBC) [Entitic vol] Ordered By: Gabriel Berman on 12-02-2024 MCV (RBC) [Entitic vol] MCV [Entitic volume] by Automated count 83.5-101 [facility] Monocyte distribution width [Entitic volume] in Blood by AutomatedOrdered By: Gabriel Berman on 12-02-2024 Monocyte distribution width Auto (Bld) [Entitic vol] Monocyte distribution width [Entitic volume] in Blood by Automated 0.00-20.00 [facility] Comment on above: Unable to calculate MDW because the Absolute Monocyte Count is <0.8. Monocytes Auto (Bld) [#/Vol] Ordered By: Gabriel Berman on 12-02-2024 Monocytes (Bld) [#/Vol] Automated blood monocyte count 0.0-0.8 [facility] Monocytes/100 WBC Auto (Bld) Ordered By: Gabriel Berman on 12-02-2024 Monocytes/100 WBC (Bld) Automated monocyte % . [facility] Natriuretic peptide B [Mass/ Vol]Ordered By: Gabriel Berman on 12-02-2024 Natriuretic peptide B (Bld) [Mass/Vol] BNP ser/plas 5-100 [facility] Neutrophils Auto (Bld) [#/Vo l]Ordered By: Gabriel Berman on 12-02-2024 Neutrophils (Bld) [#/Vol] Neutrophils [#/volume] in Blood by Automated count High 1.8-7.7 [facility] Neutrophils/100 WBC Auto (Bl d)Ordered By: Gabriel Berman on 12-02-2024 Neutrophils/100 WBC (Bld) Automated neutrophil % . [facility] No Panel InformationOrdered By: Gabriel Berman on 12-02-2024 Blood Gas Critical Value See comment [facility] Comment on above: Critical Value mccollum d on: 12/02/2024 at 22:56 Blood Gas Sample Site Venous Fir [facility] FiO2 21 % [facility] Venous Blood Base Excess -12.2 mmol/L Low -3.0-3.0 [facility] Venous Blood Oxygen Content 8.6 mmol/L 6.6-9.7 [facility] Venous Blood Oxygen Saturation 79.5 % High 73.0-76.0 [facility] Venous Blood Partial Pressure CO2 26.1 mm[Hg] Low 38.0-50.0 [facility] Venous Blood Partial Pressure O2 44.0 mm[Hg] 35.0-45.0 [facility] Venous Blood pH 7.29 Low 7.32-7.43 [facility] 7.29 Low 7.32-7.43 [facility] 26.1 mm[Hg] Low 38.0-50.0 [facility] 44.0 mm[Hg] 35.0-45.0 [facility] 12.2 mmol/L Low 23.0-29.0 [facility] -12.2 mmol/L Low -3.0-3.0 [facility] 79.5 % High 73.0-76.0 [facility] 8.6 mmol/L 6.6-9.7 [facility] 13.0 mmol/L Low 24.0-29.0 [facility] 21 % [facility] Venous [facility] See comment [facility] Bedside Glucose Comment See comment [facility] Comment on above: Glu2: WILL NOTIFY DR /RN See comment [facility] No Panel Informationon 12-02 RICKY Palomo 12/02/2024 10:49 AM Cast / Splint / Fx Date/Time: 12/02/2024 10:47 AM Performed by: RICKY Palomo Authorized by: RICKY Palomo Consent given by: patient and parent Timeout: Immediately prior to procedure a time out was called to verify the correct patient, procedure, equipment, applications support specialist and site/side marked as required Injury Location [...] supplier standards were given to the patient. [facility] patient agreement was completed at time of dispensement.. The patient stated that the device was comfortable when fitted in the office and the patient was able to ambulate without distress with this knee orthosis. At the time of dispensement, the device was suitable and not substandard. [facility] RICKY Palomo 12/02/2024 10:49 AM L Inj/Asp: [...] discussed. Consent was given by the patient. [facility] Nucleated erythrocytes [Pres ence] in Blood by Automated countOrdered By: Gabriel Berman on 12-02-2024 Nucleated RBC Auto Ql (Bld) Nucleated erythrocytes [Presence] in Blood by Automated count 0-0.5 [facility] Platelet mean volume Auto (B ld) [Entitic vol]Ordered By: Gabriel Berman on 12-02-2024 Platelet mean volume (Bld) [Entitic vol] Platelet mean volume [Entitic volume] in Blood by Automated count 6.6-10.1 [facility] Platelets Auto (Bld) [#/Vol] Ordered By: Gabriel Berman on 12-02-2024 Platelets (Bld) [#/Vol] Platelets [#/volume] in Blood by Automated count 150-450 [facility] RBC Auto (Bld) [#/Vol]Ordere d By: Gabriel Berman on 12-02-2024 RBC (Bld) [#/Vol] Erythrocytes [#/volu me] in Blood by Automated count 3.90-5.60 [facility] Venous Blood GasOrdered By: Gabriel Berman on 12-02-2024 CO2 [Moles/Vol] 13.0 mmol/L Low 24.0-29.0 [facility] Comment on above: Performed By: #### V BG ####Point of Care testing, HCO3 (Bld) [Moles/Vol] 12.2 mmol/L Low 23.0-29.0 [facility] Comment on above: Performed By: #### V BG ####Point of Care testing, Venous Blood Gason Respiratory Critical Normal [facility] Comment on above: Result Comment: Crit ical Value called on: 12/02/2024 at 22:56PERFORMED BY:[place] [id number] [place], [place] [phone] MEDICAL DIRECTORMOANGELIQUE CARRINGTON M.D. Performed By: #### V BG ####Point of Care testing, VBG Base Excess -12.2 mmol/L Low -3.0-3.0 [facility] Comment on above: Performed By: #### V BG ####Point of Care testing, VBG Draw Site Venous Normal [facility] Comment on above: Performed By: #### V BG ####Point of Care testing, VBG Frac Inspired O2 21 % Normal [facility] Comment on above: Performed By: #### V BG ####Point of Care testing, VBG O2 Content 8.6 mmol/L Normal 6.6-9.7 [facility] Comment on above: Performed By: #### V BG ####Point of Care testing, VBG Oxygen Saturation 79.5 % High 73.0-76.0 [facility] Comment on above: Performed By: #### V BG ####Point of Care testing, VBG PCO2 26.1 mm[Hg] Low 38.0-50.0 [facility] Comment on above: Performed By: #### V BG ####Point of Care testing, VBG PH Venous PH 7.29 Low 7.32-7.43 [facility] Comment on above: Performed By: #### V BG ####Point of Care testing, VBG PO2 44.0 mm[Hg] Normal 35.0-45.0 [facility] Comment on above: Performed By: #### V BG ####Point of Care testing, WBC Auto (Bld) [#/Vol]Ordere d By: Gabriel Berman on 12-02-2024 WBC (Bld) [#/Vol] Leukocytes [#/volume ] in Blood by Automated count High 4.1-10.5 [facility] ALP [Catalytic activity/Vol] on 12-01-2024 BONE FRACTION 35 % 12 - 68 % [facility] Interpretation and review of laboratory results Abnormal [facility] INTESTINAL FRACTION 1 % 0 - 18 % [facility] Comment on above: Performed at: [address] [id number] [employer] Ambassador: Yury Hernandez PhD, Phone: [phone] LIVER FRACTION 64 % 13 - 88 % [facility] FASTING: Y [facility] Alkaline phosphataseon 12-01 ALP [Catalytic activity/Vol] 280 U/L High 44 - 121 [facility] 25-hydroxyvitamin D3 [Mass/V ol]on 11-29-2024 VITAMIN D 25 HYDROXY TOTAL 22.8 ng/mL Low 30 - 100 ng/mL [facility] Comment on above: VITAMIN D STATUS 25( [place])VITAMIN D RANGE (ng/mL) Deficient <20 Insufficient 20 to <30 Sufficient 30 to 100 Reference: Allyson MF,Golden NC, Rosibel SALVADOR, et al. Evaluation,treatment, and prevention of vitamin D deficiency; an Endocrine Society clinical practice guideline. JCEM. 2010; 96(7):1911-30. A1C with Estimated Average G luon 11-29-2024 Glucose [Mass/Vol] 301 mg/dL Normal [facility] Comment on above: Result Comment: PERF ORMED BY:[facility] [place] [id number] MEDICAL DIRECTORLISA CARRINGTON M.D. Performed By: #### A 1C WT eA ####[facility] [id number] [facility] HbA1c (Bld) [Mass fraction] 12.1 % High 4.3-5.6 [facility] Comment on above: Result Comment: Incr eased risk for diabetes: 5.7 - 6.4 diabetes: >6.4 glycemic control for adults with diabetes: <7.0 Performed By: #### A 1C WT eA ####[facility] [id number] [place] [id number] [facility] Alanine aminotransferase [En zymatic activity/volume] in Serum or PlasmaOrdered By: SRIKANTH HERNANDEZ on 11-29-2024 ALT [Catalytic activity/Vol] Alanine aminotransferase [Enzymatic activity/volume] in Serum or Plasma [facility] Albumin [Mass/volume] in Ser um or Plasma by Bromocresol green (BCG) dye binding methoOrdered By: SRIKANTH HERNANDEZ on 11-29-2024 Albumin BCG dye [Mass/Vol] Albumin [Mass/volume] in Serum or Plasma by Bromocresol green (BCG) dye binding metho 3.5-5.7 [facility] Alkaline Phosphatase Isoenzy meon 11-29-2024 Bone Fraction 35 % Normal 12-68 [facility] Comment on above: Order Comment: FASTI NG: Y Performed By: #### A LK PHOSIS ####[facility] , Intestinal Fraction 1 % Normal 0-18 [facility] Comment on above: Order Comment: FASTI NG: Y Result Comment: Perf ormed at: - [facility] [address] [id number] [employer] Ambassador: Yury Hernandez PhD, Phone: [phone] BY:[place] [address] [place], [place] [phone] MEDICAL DIRECTORLISA CARRINGTON M.D. Performed By: #### A LK PHOSIS ####[facility] , [facility] Alkaline Phosphatase 280 High 44-121 [facility] Comment on above: Order Comment: FASTI NG: Y Performed By: #### A LK PHOSIS ####[facility] , Liver Fraction 64 % Normal 13-88 [facility] Comment on above: Order Comment: FASTI NG: Y Performed By: #### A LK PHOSIS ####[facility] , Alkaline phosphatase [Enzyma tic activity/volume] in Serum or PlasmaOrdered By: SRIKANTH HERNANDEZ on 11-29-2024 ALP [Catalytic activity/Vol] Alkaline phosphatase [Enzymatic activity/volume] in Serum or Plasma High 34-104 [facility] Aspartate aminotransferase [ Enzymatic activity/volume] in Serum or PlasmaOrdered By: SRIKANTH HERNANDEZ on 11-29-2024 AST [Catalytic activity/Vol] Aspartate aminotransferase [Enzymatic activity/volume] in Serum or Plasma 13-39 [facility] Basophils Auto (Bld) [#/Vol] Ordered By: SRIKANTH HERNANDEZ on 11-29-2024 Basophils (Bld) [#/Vol] Automated basophil count 0.0-0.2 [facility] Basophils/100 WBC Auto (Bld) Ordered By: SRIKANTH HERNANDEZ on 11-29-2024 Basophils/100 WBC (Bld) Automated basophil % . [facility] Bilirubin.total [Mass/volume ] in Serum or PlasmaOrdered By: SRIKANTH HERNANDEZ on 11-29-2024 Bilirubin [Mass/Vol] Bilirubin.total [Mass/volume] in Serum or Plasma 0.3-1.0 [facility] Blood estimated average gluc ose determination by estimation from glycated hemoglobinOrdered By: SRIKANTH HERNANDEZ on 11-29-2024 Average glucose Estimated from glycated hemoglobin (Bld) [Mass/Vol] Glucose mean value [Mass/volume] in Blood Estimated from glycated hemoglobin [facility] CBC W Auto Differential pane l (Bld)on 11-29-2024 Basophils (Bld) [#/Vol] 0.1 10*3/uL 0.0 - 0.2 10*3/uL [facility] Basophils/100 WBC Manual cnt (Syn fld) 1 % . [facility] Eosinophils (Bld) [#/Vol] 0.2 10*3/uL 0.0 - 0.45 10*3/uL [facility] Eosinophils/100 WBC Manual cnt (Syn fld) 2.5 % . [facility] Erythrocyte distribution width (RBC) [Ratio] 12.7 % 12.0 - 14.8 % [facility] Hematocrit (Bld) [Volume fraction] 47.7 % 38.8 - 50.0 % [facility] Hemoglobin (Bld) [Mass/Vol] 16.5 g/dL 13.0 - 17.0 g/dL [facility] Lymphocytes (Bld) [#/Vol] 1.2 10*3/uL 1.00 - 4.8 10*3/uL [facility] Lymphocytes/100 WBC Manual cnt (Syn fld) 12 % . [facility] MCH (RBC) [Entitic mass] 30.2 pg 27.5 - 35.2 pg [facility] MCHC (RBC) [Mass/Vol] 34.7 g/dL 32.5 - 35.6 g/dL [facility] MCV (RBC) [Entitic vol] 86.9 fL 83.5 - 101 fL [facility] Monocytes (Bld) [#/Vol] 0.7 10*3/uL 0.0 - 0.8 10*3/uL [facility] Monocytes+Macrophages/ 100 WBC Manual cnt (Syn fld) 6.8 % . [facility] Neutrophils (Bld) [#/Vol] 7.6 10*3/uL 1.8 - 7.7 10*3/uL [facility] Neutrophils/100 WBC Manual cnt (Syn fld) 77.7 % . [facility] NRBC 0.2 /100{WBC} 0 - 0.5 /100{WBC} [facility] Platelet mean volume (Bld) [Entitic vol] 8.5 fL 6.6 - 10.1 fL [facility] Platelets (Bld) [#/Vol] 364 10*3/uL 150 - 450 10*3/uL [facility] RBC LM.HPF (Urine sed) [#/Area] 5.48 10*6/uL 3.90 - 5.60 10*6/uL [facility] WBC (Bld) [#/Vol] 9.8 10*3/uL 4.1 - 10.5 10*3/uL [facility] WBC LM.HPF (Urine sed) [#/Area] 9.8 10*3/uL 4.1 - 10.5 10*3/uL [facility] Calcium [Mass/volume] in Ser um or PlasmaOrdered By: SRIKANTH HERNANDEZ on 11-29-2024 Calcium [Mass/Vol] Calcium [Mass/volume ] in Serum or Plasma 8.6-10.3 [facility] Carbon dioxide, total [Moles /volume] in Serum or PlasmaOrdered By: SRIKANTH HERNANDEZ on 11-29-2024 CO2 [Moles/Vol] Carbon dioxide, tota l [Moles/volume] in Serum or Plasma 21.0-31.0 [facility] Chloride [Moles/volume] in S miguel or PlasmaOrdered By: SRIKANTH HERNANDEZ on 11-29-2024 Chloride [Moles/Vol] Chloride [Moles/vol ume] in Serum or Plasma Low 98-107 [facility] Cholesterol [Mass/volume] in Serum or PlasmaOrdered By: SRIKANTH HERNANDEZ on 11-29-2024 Cholesterol [Mass/Vol] Cholesterol [Mass /volume] in Serum or Plasma High 140-200 [facility] Comment on above: Chol less than 200 m g/dl low riskChol 201-239 mg/dl borderline riskChol 240 mg/dl and greater high risk Cholesterol in HDL [Mass/vol ume] in Serum or PlasmaOrdered By: SRIKANTH HERNANDEZ on 11-29-2024 Cholesterol in HDL [Mass/Vol] Serum or plasma high density lipoprotein (HDL) cholesterol measurement 23-92 [facility] Comment on above: HDL CHOL ATP-III CLA SSIFICATION Cardiovascular RiskHDL > or equal to 60 mg/dL LOWHDL < 40 mg/dL HIGH Cholesterol in LDL Calc [Mas s/Vol]Ordered By: SRIKANTH HERNANDEZ on 11-29-2024 Cholesterol in LDL [Mass/Vol] Cholesterol in LDL [Mass/volume] in Serum or Plasma by calculation High 0-100 [facility] Comment on above: LDL ATP III CLASSIFI CATIONLDL less than 100 mg/dL OptimalLDL 100-129 mg/dL Near or above optimalLDL 130-159 mg/dL Borderline highLDL 160-189 mg/dL HighLDL greater than 189 mg/dL Very high Cholesterol in VLDL Calc [Ma ss/Vol]Ordered By: SRIKANTH HERNANDEZ on 11-29-2024 Cholesterol in VLDL [Mass/Vol] Cholesterol in VLDL [Mass/volume] in Serum or Plasma by calculation [facility] Complete Blood Count Auto Di ffon 11-29-2024 Basophils (Bld) [#/Vol] 0.1 10*3/uL Normal 0.0-0.2 [facility] Comment on above: Result Comment: PERF ORMED BY:[address] [place], [place] [phone] MEDICAL DIRECTORLISA CARRINGTON M.D. Performed By: #### C BC ####[address] Basophils/100 WBC (Bld) 1.0 % Normal . [facility] Comment on above: Performed By: #### C BC ####[address] Eosinophils (Bld) [#/Vol] 0.2 10*3/uL Normal 0.0-0.45 [facility] Comment on above: Performed By: #### C BC ####[address] Eosinophils/100 WBC (Bld) 2.5 % Normal . [facility] Comment on above: Performed By: #### C BC ####[address] Erythrocyte distribution width (RBC) [Ratio] 12.7 % Normal 12.0-14.8 [facility] Comment on above: Performed By: #### C BC ####[address] Hematocrit (Bld) [Volume fraction] 47.7 % Normal 38.8-50.0 [facility] Comment on above: Performed By: #### C BC ####[address] Hemoglobin (Bld) [Mass/Vol] 16.5 g/dL Normal 13.0-17.0 [facility] Comment on above: Performed By: #### C BC ####[address] Lymphocytes (Bld) [#/Vol] 1.2 10*3/uL Normal 1.00-4.8 [facility] Comment on above: Performed By: #### C BC ####[address] Lymphocytes/100 WBC (Bld) 12.0 % Normal . [facility] Comment on above: Performed By: #### C BC ####[address] MCH (RBC) [Entitic mass] 30.2 pg Normal 27.5-35.2 [facility] Comment on above: Performed By: #### C BC ####[address] MCV (RBC) [Entitic vol] 86.9 fL Normal 83.5-101 [facility] Comment on above: Performed By: #### C BC ####[address] Mean Corpuscular HGB Conc 34.7 g/dL Normal 32.5-35.6 [facility] Comment on above: Performed By: #### C BC ####[address] Monocytes (Bld) [#/Vol] 0.7 10*3/uL Normal 0.0-0.8 [facility] Comment on above: Performed By: #### C BC ####[address] Monocytes/100 WBC (Bld) 6.8 % Normal . [facility] Comment on above: Performed By: #### C BC ####[address] Neutrophils (Bld) [#/Vol] 7.6 10*3/uL Normal 1.8-7.7 [facility] Comment on above: Performed By: #### C BC ####[address] Neutrophils/100 WBC (Bld) 77.7 % Normal . [facility] Comment on above: Performed By: #### C BC ####[place] [id number] [facility] NRBC% 0.2 /100{WBC} Normal 0-0.5 [facility] Comment on above: Performed By: #### C BC ####[place] [id number] [facility] Platelet mean volume (Bld) [Entitic vol] 8.5 fL Normal 6.6-10.1 [facility] Comment on above: Performed By: #### C BC ####[place] [id number] [facility] Platelets (Bld) [#/Vol] 364 10*3/uL Normal 150-450 [facility] Comment on above: Performed By: #### C BC ####[place] [id number] [facility] RBC (Bld) [#/Vol] 5.48 10*6/uL Normal 3.90-5.60 [facility] Comment on above: Performed By: #### C BC ####[place] [id number] [facility] WBC (Bld) [#/Vol] 9.8 10*3/uL Normal 4.1-10.5 The [facility] Comment on above: Performed By: #### C BC ####[place] [id number] [facility] Comprehensive Metabolic Pane ari 11-29-2024 Albumin [Mass/Vol] 4.0 g/dL Normal 3.5-5.7 The [facility] Comment on above: Performed By: #### G GT, CMP, PHOS, FOL, [id number], B12, T4F, LIPID, TSH3 ####[place] [id number] [facility] Albumin/Globulin [Mass ratio] 1.1 {ratio} Normal The [facility] Comment on above: Performed By: #### G GT, CMP, PHOS, FOL, [id number], B12, T4F, LIPID, TSH3 ####[place] [id number] [facility] ALP [Catalytic activity/Vol] 216 U/L High 34-104 The [facility] Comment on above: Performed By: #### G GT, CMP, PHOS, FOL, [id number], B12, T4F, LIPID, TSH3 ####[place] [id number] [facility] ALT [Catalytic activity/Vol] 29 U/L Normal 7-52 [facility] Comment on above: Performed By: #### G GT, CMP, PHOS, FOL, [id number], B12, T4F, LIPID, TSH3 ####[address] Anion gap [Moles/Vol] 16.5 mmol/L High 6.0-15.0 Th e [facility] Comment on above: Performed By: #### G GT, CMP, PHOS, FOL, [id number], B12, T4F, LIPID, TSH3 ####[address] AST [Catalytic activity/Vol] 18 U/L Normal 13-39 [facility] Comment on above: Performed By: #### G GT, CMP, PHOS, FOL, [id number], B12, T4F, LIPID, TSH3 ####[place] [id number] [facility] Bilirubin [Mass/Vol] 1.0 mg/dL Normal 0.3-1.0 The [facility] Comment on above: Performed By: #### G GT, CMP, PHOS, FOL, [id number], B12, T4F, LIPID, TSH3 ####[address] Calcium [Mass/Vol] 9.5 mg/dL Normal 8.6-10.3 [facility] Comment on above: Performed By: #### G GT, CMP, PHOS, FOL, [id number], B12, T4F, LIPID, TSH3 ####[address] Chloride [Moles/Vol] 97 mmol/L Low 98-107 The [facility] Comment on above: Performed By: #### G GT, CMP, PHOS, FOL, [id number], B12, T4F, LIPID, TSH3 ####[place] [id number] [address] CO2 [Moles/Vol] 22.1 mmol/L Normal 21.0-31.0 The [facility] Comment on above: Performed By: #### G GT, CMP, PHOS, FOL, [id number], B12, T4F, LIPID, TSH3 ####[place] [id number] Creatinine [Mass/Vol] 1.15 mg/dL Normal 0.70-1.30 The [facility] Comment on above: Performed By: #### G GT, CMP, PHOS, FOL, [id number], B12, T4F, LIPID, TSH3 ####[address] GFR/1.73 sq M.predicted MDRD (S/P/Bld) [Vol rate/Area] mL/min/{1.73_m2} Normal The [facility] Comment on above: Performed By: #### G GT, CMP, PHOS, FOL, [id number], B12, T4F, LIPID, TSH3 ####[place] [id number] Globulin (S) [Mass/Vol] 3.5 g/dL Normal The [facility] Comment on above: Performed By: #### G GT, CMP, PHOS, FOL, [id number], B12, T4F, LIPID, TSH3 ####[address] Glucose [Mass/Vol] 434 mg/dL High 70-100 The [facility] Comment on above: Result Comment: [facility] Glucose Reference Range is dependent on time and content of last meal. Glucose of more than 200 mg/dL in a nonstressed, ambulatory subject supports the diagnosis of Diabetes Mellitus. ADA recommended reference range Performed By: #### G GT, CMP, PHOS, FOL, [id number], B12, T4F, LIPID, TSH3 ####[address] Potassium [Moles/Vol] 5.6 mmol/L High 3.5-5.1 The [facility] Comment on above: Performed By: #### G GT, CMP, PHOS, FOL, [id number], B12, T4F, LIPID, TSH3 ####[address] Protein [Mass/Vol] 7.5 g/dL Normal 6.4-8.9 The [facility] Comment on above: Performed By: #### G GT, CMP, PHOS, FOL, [id number], B12, T4F, LIPID, TSH3 ####[address] Sodium [Moles/Vol] 130 mmol/L Low 136-145 [facility] Comment on above: Performed By: #### G GT, CMP, PHOS, FOL, [id number], B12, T4F, LIPID, TSH3 ####[address] Urea nitrogen [Mass/Vol] 20 mg/dL Normal 7-25 The [facility] Comment on above: Performed By: #### G GT, CMP, PHOS, FOL, [id number], B12, T4F, LIPID, TSH3 ####[address] Creatinine [Mass/volume] in Serum or PlasmaOrdered By: SRIKANTH HERNANDEZ on 11-29-2024 Creatinine [Mass/Vol] Creatinine [Mass/v olume] in Serum or Plasma 0.70-1.30 [facility] Eosinophils Auto (Bld) [#/Vo l]Ordered By: SRIKANTH HERNANDEZ on 11-29-2024 Eosinophils (Bld) [#/Vol] Automated eosinophil count 0.0-0.45 [facility] Eosinophils/100 WBC Auto (Bl d)Ordered By: SRIKANTH HERNANDEZ on 04-28-2025 Eosinophils/100 WBC (Bld) Automated eosinophil % . [facility] Erythrocyte distribution wid th Auto (RBC) [Ratio]Ordered By: SRIKANTH HERNANDEZ on 11-29-2024 Erythrocyte distribution width (RBC) [Ratio] Erythrocyte distribution width [Ratio] by Automated count 12.0-14.8 [facility] Folateon 11-29-2024 Folate 28.0 ng/mL Normal >5.9 The [facility] Comment on above: Result Comment: Jeanie te reference range: >5.9 ng/ml The WHO technical consultation on folate and vitamin b12 deficiencies has determined that folate concentrations less than 4 ng/ml are considered deficient. Performed By: #### G GT, CMP, PHOS, FOL, [id number], B12, T4F, LIPID, TSH3 ####[facility] [id number] [place] [id number] [facility] Folate [Mass/Vol]on 11-30-19 25 FOLATE 28 ng/mL 5.9 - PINF ng/mL [facility] Comment on above: Folate reference ran ge: >5.9 ng/ml The WHO technical consultation on folate and vitamin b12 deficiencies has determined that folate concentrations less than 4 ng/ml are considered deficient. Folate [Mass/volume] in Seru m or PlasmaOrdered By: SRIKANTH HERNANDEZ on 11-29-2024 Folate [Mass/Vol] Folate [Mass/volume] in Serum or Plasma >5.9 [facility] Comment on above: Folate reference ran ge: >5.9 ng/mlThe WHO technical consultation on folate and vitamin [id number] has determined that folate concentrations lessthan 4 ng/ml are considered deficient. Free T4 (Free Thyroxine)on 0 11-29-2024 Free T4 [Mass/Vol] 1.33 ng/dL High 0.61-1.12 [facility] Comment on above: Performed By: #### G GT, CMP, PHOS, FOL, [id number], B12, T4F, LIPID, TSH3 ####[facility] [place] [address] [facility] Gamma Glutamyl Transpeptidas jessica 11-29-2024 Amylase [Catalytic activity/Vol] 182 U/L High 9-64 [facility] Comment on above: Performed By: #### G GT, CMP, PHOS, FOL, [id number], B12, T4F, LIPID, TSH3 ####[facility] [id number] [place] [id number] [facility] Gamma glutamyl transferase [ Catalytic activity/Vol]on 11-29-2024 Amylase [Catalytic activity/Vol] 182 U/L High 9 - 64 U/L [facility] Gamma glutamyl transferase [ Enzymatic activity/volume] in Serum or PlasmaOrdered By: SRIKANTH HERNANDEZ on 11-29-2024 Gamma glutamyl transferase [Catalytic activity/Vol] Gamma glutamyl transferase [Enzymatic activity/volume] in Serum or Plasma High 9-64 [facility] Globulin Calc (S) [Mass/Vol] Ordered By: SRIKANTH HERNANDEZ on 11-29-2024 Globulin (S) [Mass/Vol] Serum globulin measurement by calculation (mass/volume) [facility] Glucose [Mass/volume] in Ser um or PlasmaOrdered By: SRIKANTH HERNANDEZ on 11-29-2024 Glucose [Mass/Vol] Glucose [Mass/volume ] in Serum or Plasma High 70-100 [facility] Comment on above: ADA recommended refe rence rangeRandom Glucose Reference Range is dependent on time and content of last meal. Glucose of more than 200 mg/dL in a nonstressed, ambulatory subject supports the diagnosis of Diabetes Mellitus. Hematocrit Auto (Bld) [Volum e fraction]Ordered By: SRIKANTH HERNANDEZ on 11-29-2024 Hematocrit (Bld) [Volume fraction] Hematocrit [Volume Fraction] of Blood by Automated count 38.8-50.0 [facility] Hemoglobin A1c/Hemoglobin.to xiomara in BloodOrdered By: SRIKANTH HERNANDEZ on 11-29-2024 HbA1c (Bld) [Mass fraction] Hemoglobin A1c percentage High 4.3-5.6 [facility] Comment on above: Increased risk for d iabetes: 5.7 - 6.4diabetes: >6.4glycemic control for adults with diabetes: <7.0 Hemoglobin [Mass/volume] in BloodOrdered By: SRIKANTH HERNANDEZ on 11-29-2024 Hemoglobin (Bld) [Mass/Vol] Hemoglobin [Mass/volume] in Blood 13.0-17.0 [facility] Laboratory - Chemistry and C hemistry - challengeon 11-29-2024 Albumin [Mass/Vol] 4 g/dL 3.5 - 5.7 g/dL [facility] Albumin/Globulin [Mass ratio] 1.1 {ratio} [facility] ALP [Catalytic activity/Vol] 216 U/L High 34 - 104 U/L [facility] ALT [Catalytic activity/Vol] 29 U/L 7 - 52 U/L [facility] Anion gap [Moles/Vol] 16.5 mmol/L High 6.0 - 15.0 meq/L [facility] AST [Catalytic activity/Vol] 18 U/L 13 - 39 U/L [facility] Bilirubin [Mass/Vol] 1 mg/dL 0.3 - 1 .0 mg/dL [facility] Calcium [Mass/Vol] 9.5 mg/dL 8.6 - 10. 3 mg/dL [facility] Chloride [Moles/Vol] 97 mmol/L Low 98 - 10 7 mmol/L [facility] CO2 [Moles/Vol] 22.1 mmol/L 21.0 - 31.0 mmol/L [facility] Cobalamin (Vitamin B12) [Mass/Vol] 327 pg/mL 180 - 914 pg/mL [facility] Creatinine (U) [Mass/Vol] 1.15 mg/dL 0.70 - 1.30 mg/dL [facility] Free T4 [Mass/Vol] 1.33 ng/dL High 0.61 - 1.12 ng/dL [facility] Globulin (S) [Mass/Vol] 3.5 g/dL [facility] Glucose [Mass/Vol] 434 mg/dL High 70 - 100 mg/dL [facility] Comment on above: Random Glucose Refer ence Range is dependent on time and content of last meal. Glucose of more than 200 mg/dL in a nonstressed, ambulatory subject supports the diagnosis of Diabetes Mellitus. ADA recommended reference range Potassium [Moles/Vol] 5.6 mmol/L High 3.5 - 5.1 mmol/L [facility] Protein [Mass/Vol] 7.5 g/dL 6.4 - 8.9 g/dL [facility] Sodium [Moles/Vol] 130 mmol/L Low 136 - 145 mmol/L [facility] TSH Qn 1.05 m[IU]/L 0.45 - 5.33 u[iU]/mL [facility] Urea nitrogen [Mass/Vol] 20 mg/dL 7 - 25 mg/dL [facility] Leukocytes [#/volume] correc roe for nucleated erythrocytes in Blood by Automated counOrdered By: SRIKANTH HERNANDEZ on 11-29-2024 WBC corrected for nucl RBC Auto (Bld) [#/Vol] Leukocytes [#/volume] corrected for nucleated erythrocytes in Blood by Automated coun 4.1-10.5 [facility] Lipid 1996 panelon Cholesterol [Mass/Vol] 256 mg/dL High 140 - 200 mg/dL [facility] Comment on above: Chol less than 200 m g/dl low risk Chol 201-239 mg/dl borderline risk Chol 240 mg/dl and greater high risk Cholesterol in HDL [Mass/Vol] 57 mg/dL 23 - 92 mg/dL [facility] Comment on above: HDL CHOL ATP-III CLA SSIFICATION Cardiovascular Risk HDL > or equal to 60 mg/dL LOW HDL < 40 mg/dL HIGH Cholesterol.total/Chol esterol in HDL [Mass ratio] 4.5 {ratio} NINF - 5.0 [facility] LDL CHOLESTEROL,CALCULATED 172 mg/dL High 0 - 100 mg/dL [facility] Comment on above: LDL ATP III CLASSIFI CATION LDL less than 100 mg/dL Optimal LDL 100-129 mg/dL Near or above optimal LDL 130-159 mg/dL Borderline high LDL 160-189 mg/dL High LDL greater than 189 mg/dL Very high Magnesium [Mass/Vol] 27 mg/dL [facility] TRIGLYCERIDE W/REFLEX 137 mg/dL 0 - 14 9 mg/dL [facility] Comment on above: TRIG ATP III CLASSIF ICATION TRIG less than 150 mg/dL Normal TRIG 150-199 mg/dL Borderline high TRIG 200-500 mg/dL High TRIG greater than 500 mg/dL Very high Standard traceable to the Center for Disease Conrtrol and Prevention (CDC) test method. Lipid Panelon 11-29-2024 Cholesterol [Mass/Vol] 256 mg/dL High 140-200 Th e [facility] Comment on above: Result Comment: Chol less than 200 mg/dl low risk Chol 201-239 mg/dl borderline risk Chol 240 mg/dl and greater high risk Performed By: #### G GT, CMP, PHOS, FOL, [id number], B12, T4F, LIPID, TSH3 ####[place] [id number] [place] [id number] [facility] Cholesterol in HDL [Mass/Vol] 57 mg/dL Normal 23-92 [facility] Comment on above: Result Comment: HDL CHOL ATP-III CLASSIFICATION Cardiovascular Risk HDL > or equal to 60 mg/dL LOW HDL < 40 mg/dL HIGH Performed By: #### G GT, CMP, PHOS, FOL, [id number], B12, T4F, LIPID, TSH3 ####[address] Cholesterol.total/Chol esterol in HDL [Mass ratio] 4.5 {ratio} Normal <5.0 [facility] Comment on above: Performed By: #### G GT, CMP, PHOS, FOL, [id number], B12, T4F, LIPID, TSH3 ####[address] LDL Cholesterol,Calculated 172 mg/dL High 0-100 [facility] Comment on above: Result Comment: LDL ATP III CLASSIFICATION LDL less than 100 mg/dL Optimal LDL 100-129 mg/dL Near or above optimal LDL 130-159 mg/dL Borderline high LDL 160-189 mg/dL High LDL greater than 189 mg/dL Very high Performed By: #### G GT, CMP, PHOS, FOL, [id number], B12, T4F, LIPID, TSH3 ####[place] [id number] [facility] Triglyceride w/Reflex 137 mg/dL Normal 0-149 [facility] Comment on above: Result Comment: TRIG ATP III CLASSIFICATION TRIG less than 150 mg/dL Normal TRIG 150-199 mg/dL Borderline high TRIG 200-500 mg/dL High TRIG greater than 500 mg/dL Very high Standard traceable to the Center for Disease Conrtrol and Prevention (CDC) test method. Performed By: #### G GT, CMP, PHOS, FOL, [id number], B12, T4F, LIPID, TSH3 ####[address] [address] [facility] VLDL CHOLESTEROL 27 mg/dL Normal [facility] Comment on above: Performed By: #### G GT, CMP, PHOS, FOL, [id number], B12, T4F, LIPID, TSH3 ####[facility] [id number] [place] [id number] [facility] Lymphocytes Auto (Bld) [#/Vo l]Ordered By: SRIKANTH HERNANDEZ on 11-29-2024 Lymphocytes (Bld) [#/Vol] Lymphocytes [#/volume] in Blood by Automated count 1.00-4.8 [facility] Lymphocytes/100 WBC Auto (Bl d)Ordered By: SRIKANTH HERNANDEZ on 11-29-2024 Lymphocytes/100 WBC (Bld) Lymphocytes/100 leukocytes in Blood by Automated count . [facility] MCH Auto (RBC) [Entitic mass ]Ordered By: SRIKANTH HERNANDEZ on 11-29-2024 MCH (RBC) [Entitic mass] MCH [Entitic mass] by Automated count 27.5-35.2 [facility] MCHC Auto (RBC) [Mass/Vol]Or dered By: SRIKANTH HERNANDEZ on 11-29-2024 MCHC (RBC) [Mass/Vol] MCHC [Mass/volume] by Automated count 32.5-35.6 [facility] MCV Auto (RBC) [Entitic vol] Ordered By: SRIKANTH HERNANDEZ on 11-29-2024 MCV (RBC) [Entitic vol] MCV [Entitic volume] by Automated count 83.5-101 [facility] Monocytes Auto (Bld) [#/Vol] Ordered By: SRIKANTH HERNANDEZ on 11-29-2024 Monocytes (Bld) [#/Vol] Automated blood monocyte count 0.0-0.8 [facility] Monocytes/100 WBC Auto (Bld) Ordered By: SRIKANTH HERNANDEZ on 11-29-2024 Monocytes/100 WBC (Bld) Automated monocyte % . [facility] Neutrophils Auto (Bld) [#/Vo l]Ordered By: SRIKANTH HERNANDEZ on 11-29-2024 Neutrophils (Bld) [#/Vol] Neutrophils [#/volume] in Blood by Automated count 1.8-7.7 [facility] Neutrophils/100 WBC Auto (Bl d)Ordered By: SRIKANTH HERNANDEZ on 11-29-2024 Neutrophils/100 WBC (Bld) Automated neutrophil % . [facility] No Panel Informationon 11-29 ESTIMATED GFR mL/Min [facility] Interpretation and review of laboratory results Abnormal [facility] No Panel InformationOrdered By: SRIKANTH HERNANDEZ on 11-29-2024 Estimated GFR (CKD-EPI) > 60.0 mL/Min [facility] Creatinine Clearance (Chem N/A [facility] > 60.0 mL/Min [facility] N/A [facility] Nucleated erythrocytes [Pres ence] in Blood by Automated countOrdered By: SRIKANTH HERNANDEZ on 11-29-2024 Nucleated RBC Auto Ql (Bld) Nucleated erythrocytes [Presence] in Blood by Automated count 0-0.5 [facility] PSA Screen (Yearly Only)on 0 11-29-2024 PSA Screen (Yearly Only) 0.230 ng/mL Normal 0.000-4.00 0 [facility] Comment on above: Order Comment: Is pa tient <50 yrs? Medicare does not pay <50.: Y What is the date of the last PSA Screen?: NA OR...The date Patient is eligible for PSA Screen?: NA Is Medicare the insurance?: NO Did you verify eligibility (Dx Time) check TestViewGp: YES TO ALL Result Comment: Mari[place] denny tumor marker results determined by assays using different manufacturers or methods may not be comparable. [facility] torts law professor and method: [employer] DXI, CHEMILUMINESCENT IMMUNOASSAY.PERFORMED BY:[facility] [place] [place], [place] [phone] MEDICAL DIRECTORLISA CARRINGTON M.D. Performed By: #### P SAS ####[facility] [place] [id number] [facility] Parathyrin.intact [Mass/Vol] on 11-29-2024 Interpretation and review of laboratory results Abnormal [facility] PARATHYROID HORMONE INTACT 154.2 pg/mL High 12 - 88 pg/mL [facility] Parathyrin.intact [Mass/volu me] in Serum or PlasmaOrdered By: SRIKANTH HERNANDEZ on 11-29-2024 Parathyrin.intact [Mass/Vol] Parathyrin.intact [Mass/volume] in Serum or Plasma High 12-88 [facility] Parathyroid Hormone Intacton 11-29-2024 Parathyroid Hormone Intact 154.2 pg/mL High 12 [facility] Comment on above: Result Comment: PERF ORMED BY:[address] [place]arrettJorgeTIMI, [place] [phone] MEDICAL DIRECTORLISA CARRINGTON M.D. Performed By: #### P TH ####[place] [address] [place] [address] [facility] Phosphate [Mass/volume] in S miguel or PlasmaOrdered By: SRIKANTH HERNANDEZ on 11-29-2024 Phosphate [Mass/Vol] Phosphate [Mass/vol ume] in Serum or Plasma 2.5-4.5 [facility] Phosphate [Moles/Vol]on 11-03 Phosphate [Mass/Vol] 2.7 mg/dL 2.5 - 4 .5 mg/dL [facility] Phosphoruson 11-29-2024 Phosphate [Mass/Vol] 2.7 mg/dL Normal 2.5-4.5 [facility] Comment on above: Performed By: #### G GT, CMP, PHOS, FOL, [id number], B12, T4F, LIPID, TSH3 ####[place] [address] [place] [address] [facility] Platelet mean volume Auto (B ld) [Entitic vol]Ordered By: SRIKANTH HERNANDEZ on 11-29-2024 Platelet mean volume (Bld) [Entitic vol] Platelet mean volume [Entitic volume] in Blood by Automated count 6.6-10.1 [facility] Platelets Auto (Bld) [#/Vol] Ordered By: SRIKANTH HERNANDEZ on 11-29-2024 Platelets (Bld) [#/Vol] Platelets [#/volume] in Blood by Automated count 150-450 [facility] Potassium [Moles/volume] in Serum or PlasmaOrdered By: SRIKANTH HERNANDEZ on 11-29-2024 Potassium [Moles/Vol] Potassium [Moles/v olume] in Serum or Plasma High 3.5-5.1 [facility] Prostate specific Ag [Mass/V ol]on 11-29-2024 PSA SCREEN (YEARLY ONLY) 0.23 ng/mL 0.000 - 4.000 ng/mL [facility] Comment on above: Serial tumor marker results determined by assays using different manufacturers or methods may not be comparable. [facility] torts law professor and method: [employer] DXI, CHEMILUMINESCENT IMMUNOASSAY. Is patient <50 yrs? Medicare does not pay <50.: Y What is the date of the last PSA Screen?: NA OR...The date Patient is eligible for PSA Screen?: NA Is Medicare the insurance?: NO Did you verify eligibility (Dx Time) check TestViewGp: YES TO ALL [facility] Prostate specific Ag [Mass/v olume] in Serum or PlasmaOrdered By: SRIKANTH HERNANDEZ on 11-29-2024 Prostate specific Ag [Mass/Vol] Prostate specific Ag [Mass/volume] in Serum or Plasma 0.000-4.00 0 [facility] Comment on above: Serial tumor marker results determined by assays using different manufacturers or methods may not be comparable.[facility] torts law professor and method:[employer] DXI, CHEMILUMINESCENT IMMUNOASSAY. Protein [Mass/volume] in Ser um or PlasmaOrdered By: SRIKANTH HERNANDEZ on 11-29-2024 Protein [Mass/Vol] Protein [Mass/volume ] in Serum or Plasma 6.4-8.9 [facility] RBC Auto (Bld) [#/Vol]Ordere d By: SRIKANTH HERNANDEZ on 11-29-2024 RBC (Bld) [#/Vol] Erythrocytes [#/volu me] in Blood by Automated count 3.90-5.60 [facility] Serum or plasma albumin/glob ulin mass ratioOrdered By: SRIKANTH HERNANDEZ on 11-29-2024 Albumin/Globulin [Mass ratio] Serum or plasma albumin/globulin mass ratio [facility] Serum or plasma alkaline jackson sphatase measurement (enzymatic activity/volume)Ordered By: SRIKANTH HERNANDEZ on 11-29-2024 ALP [Catalytic activity/Vol] Alkaline phosphatase [Enzymatic activity/volume] in Serum or Plasma High 44-121 [facility] Serum or plasma anion gap de terminationOrdered By: SRIKANTH HERNANDEZ on 11-29-2024 Anion gap [Moles/Vol] Serum or plasma an ion gap determination High 6.0-15.0 [facility] Serum or plasma bone alkalin e phosphatase/total alkaline phosphatase ratioOrdered By: SRIKANTH HERNANDEZ on 11-29-2024 ALP Bone [Catalytic fraction] Serum or plasma bone alkaline phosphatase/total alkaline phosphatase ratio 12-68 [facility] Serum or plasma intestinal a lkaline phosphatase/total alkaline phosphatase ratio (catOrdered By: SRIKANTH HERNANDEZ on 11-29-2024 ALP Intest [Catalytic fraction] Serum or plasma intestinal alkaline phosphatase/total alkaline phosphatase ratio (cat 0-18 [facility] Comment on above: Performed at: [address] [id number] Director: Yury Hernandez PhD, Phone: [phone] Serum or plasma total choles terol/high density lipoprotein (HDL) cholesterol mass ratOrdered By: SRIKANTH HERNANDEZ on 11-29-2024 Cholesterol.total/Chol esterol in HDL [Mass ratio] Serum or plasma total cholesterol/high density lipoprotein (HDL) cholesterol mass rat <5.0 [facility] Sodium [Moles/volume] in Ser um or PlasmaOrdered By: SRIKANTH HERNANDEZ on 11-29-2024 Sodium [Moles/Vol] Sodium [Moles/volume ] in Serum or Plasma Low 136-145 [facility] Thyroid Stimulating Hormoneo n 11-29-2024 TSH Qn 1.05 m[IU]/L Normal 0.45-5.33 [facility] Comment on above: Performed By: #### G GT, CMP, PHOS, FOL, [id number], B12, T4F, LIPID, TSH3 ####[facility] [id number] Thyrotropin [Units/volume] i n Serum or PlasmaOrdered By: SRIKANTH HERNANDEZ on 11-29-2024 TSH Qn Thyrotropin [Units/volume] in Serum or Plasma 0.45-5.33 [facility] Thyroxine (T4) free [Mass/vo lume] in Serum or PlasmaOrdered By: SRIKANTH HERNANDEZ on 11-29-2024 Free T4 [Mass/Vol] Thyroxine (T4) free [Mass/volume] in Serum or Plasma High 0.61-1.12 [facility] Total alkaline phosphatase m easurement with isoenzyme panelOrdered By: SRIKANTH HERNANDEZ on 11-29-2024 ALP Iso Pnl Total alkaline phosphatase measurement with isoenzyme panel 13-88 [facility] Triglyceride [Mass/volume] i n Serum or PlasmaOrdered By: SRIKANTH HERNANDEZ on 11-29-2024 Triglyceride [Mass/Vol] Triglyceride [Mass/volume] in Serum or Plasma 0-149 [facility] Comment on above: TRIG ATP III CLASSIF ICATIONTRIG less than 150 mg/dL NormalTRIG 150-199 mg/dL Borderline highTRIG 200-500 mg/dL High TRIG greater than 500 mg/dL Very highStandard traceable to the Center for Disease Conrtrol and Prevention (CDC) test method. Urea nitrogen [Mass/volume] in Serum or PlasmaOrdered By: SRIKANTH HERNANDEZ on 11-29-2024 Urea nitrogen [Mass/Vol] Urea nitrogen [Mass/volume] in Serum or Plasma 7-25 [facility] Vitamin B12on 11-29-2024 Cobalamin (Vitamin B12) [Mass/Vol] 327 pg/mL Normal 180-914 [facility] Comment on above: Performed By: #### G GT, CMP, PHOS, FOL, [id number], B12, T4F, LIPID, TSH3 ####[facility] [place] [id number] [facility] Vitamin B12 ser/plasOrdered By: SRIKANTH HERNANDEZ on 11-29-2024 Cobalamin (Vitamin B12) [Mass/Vol] Vitamin B12 ser/plas 180-914 [facility] Vitamin D 25 Hydroxy Totalon 11-29-2024 Vitamin D 25 Hydroxy Total 22.8 ng/mL Low 30-100 [facility] Comment on above: Result Comment: CRISTAL MIN D STATUS 25(OH)VITAMIN D RANGE (ng/mL) Deficient <20 Insufficient 20 to <30 Sufficient 30 to 100 Reference: Allyson MF,Golden NC, Roberta-Jim SALVADOR, et al. Evaluation,treatment, and prevention of vitamin D deficiency; an Endocrine Society clinical practice guideline. JCEM. 2010; 96(7):1911-30.PERFORMED BY:[address] [place], [place] [phone] MEDICAL DIRECTORLISA CARRINGTON M.D. Performed By: #### G GT, CMP, PHOS, FOL, [id number], B12, T4F, LIPID, TSH3 ####[facility] [address] [place] [address] [facility] Vitamin D+Metabolites [Mass/ volume] in Serum or PlasmaOrdered By: SRIKANTH HERNANDEZ on 11-29-2024 Vitamin D+Metabolites [Mass/Vol] Vitamin D+Metabolites [Mass/volume] in Serum or Plasma Low 30-100 [facility] Comment on above: VITAMIN D STATUS 25( [place])VITAMIN D RANGE (ng/mL) Deficient <20 Insufficient 20 to <30Sufficient 30 to 100Reference: Allyson MF,Golden WIN, Rosibel SALVADOR, et al. Evaluation,treatment, and prevention of vitamin D deficiency; an Endocrine Society clinical practice guideline. JCEM. 2010; 96(7):1911-30. WBC Auto (Bld) [#/Vol]Ordere d By: SRIKANTH HERNANDEZ on 11-29-2024 WBC (Bld) [#/Vol] Leukocytes [#/volume ] in Blood by Automated count 4.1-10.5 [facility] Glucose Glucometer (BldC) [M ass/Vol]Ordered By: CLARISSA CALDERA on 11-24-2024 Glucose [Mass/Vol] Capillary blood gluc ose measurement by glucometer (mass/volume) [facility] Comment on above: Random Glucose Refer ence Range is dependent on time and content of last meal. Glucose of more than 200 mg/dL in a nonstressed, ambulatory subject supports the diagnosis of Diabetes Mellitus. Glucose Poct Glucometerson 0 11-24-2024 Glucose [Mass/Vol] 366 mg/dL Normal [facility] Comment on above: Result Comment: [place] Glucose Reference Range is dependent on time and content of last meal. Glucose of more than 200 mg/dL in a nonstressed, ambulatory subject supports the diagnosis of Diabetes Mellitus.PERFORMED BY:[facility] [place], [place] [phone] MEDICAL DIRECTORMOANGELIQUE CARRINGTON M.D. Performed By: #### G LULS ####Point of Care testing, Glucose Glucometer (BldC) [M ass/Vol]Ordered By: Malcom Yañez on 11-21-2024 Glucose [Mass/Vol] Capillary blood gluc ose measurement by glucometer (mass/volume) Critically high [facility] Comment on above: Random Glucose Refer ence Range is dependent on time and content of last meal. Glucose of more than 200 mg/dL in a nonstressed, ambulatory subject supports the diagnosis of Diabetes Mellitus. Glucose Poct Glucometerson 0 11-21-2024 Commemt1 Normal [facility] Comment on above: Result Comment: Glu2 : WILL NOTIFY DR/RN Performed By: #### G LULS ####Point of Care testing, Commemt2 Cleaned Meter Normal [facility] Comment on above: Result Comment: PERF ORMED BY:[place] [address], [place] [phone] MEDICAL DIRECTORLISA CARRINGTON M.D. Performed By: #### G LULS ####Point of Care testing, Glucose [Mass/Vol] 459 mg/dL Off scale high Th e [facility] Comment on above: Result Comment: [place] om Glucose Reference Range is dependent on time and content of last meal. Glucose of more than 200 mg/dL in a nonstressed, ambulatory subject supports the diagnosis of Diabetes Mellitus. Performed By: #### G LULS ####Point of Care testing, No Panel InformationOrdered By: Malcom Yañez on 11-21-2024 Bedside Glucose #2 Comment Cleaned meter [facility] Bedside Glucose Comment See comment [facility] Comment on above: Glu2: WILL NOTIFY DR /RN See comment [facility] Cleaned meter [facility] Glucose Glucometer (BldC) [M ass/Vol]Ordered By: Aiden Mary on 11-17-2024 Glucose [Mass/Vol] Capillary blood gluc ose measurement by glucometer (mass/volume) [facility] Comment on above: Random Glucose Refer ence Range is dependent on time and content of last meal. Glucose of more than 200 mg/dL in a nonstressed, ambulatory subject supports the diagnosis of Diabetes Mellitus. Glucose Poct Glucometerson 0 4-16-2025 Glucose [Mass/Vol] 368 mg/dL Normal [facility] Comment on above: Result Comment: [facility] Glucose Reference Range is dependent on time and content of last meal. Glucose of more than 200 mg/dL in a nonstressed, ambulatory subject supports the diagnosis of Diabetes Mellitus.PERFORMED BY:[address] [phone] MEDICAL DIRECTORLISA CARRINGTON M.D. Performed By: #### G LULS ####Point of Care testing, NM bone scan whole bodyon NM bone scan whole body Normal [facility] X-ray reportOrdered By: Hansel Nevarez on 11-04-2024 Study report [facility] [address] [place] [address] [place] [address] XRay Report Signed Patient: Kerline Chang MR#: [id number] : 1970 Acct:[id number] Age/Sex: 54 / M ADM Date: 5 Loc: ER Room: Type: [facility] ER Attending Dr: Copies to: Arpan Ross PA-C~ Ordering Provider: Arpan Ross PA-C Date of Service: 11/04/24 XR/XR knee BI 4V: fall 4 views both knee plain film COMPARISON: 07/17/2024 HISTORY: Fell injuring both knees ACUTE FINDINGS: No acute findings DEGENERATIVE CHANGE: Bilateral marginal spurring. Right posterior intra-articular bodies SOFT TISSUE FINDINGS: Unremarkable JOINT EFFUSION: None POSTOP CHANGES: None BONE MINERALIZATION: Adequate XR/XR knee BI 4V IMPRESSION: No acute displaced fracture Impression dictated by: Delio Nevarez M.D.11/04/2024 10:17 PM Dictation Location: [place] [address] Transcribed By: [facility] 11/04/242216 Dictated By: Delio Nevarez DO 11/04/242214 Signed By: 11/04/242216 [facility] XR knee BI 4Von 11-04-2024 XR knee BI 4V Normal [facility] No Panel Informationon 09-02 RICKY Palomo 09/02/2024 12:40 PM L Inj/Asp: R knee on 09/02/2024 9:55 AM Indications: pain Details: 22 G needle, anterolateral approach Medications: 40 mg methylPREDNISolone acetate 40 MG/ML; 1 mL bupivacaine PF 0.5 % Outcome: tolerated well, no immediate complications E UTILIZING ASEPTIC TECHNIQUE PT GIVEN INJECTION IN RIGHT KNEE, NEUROVASC INTACT S/P INJ, TOLERATED WELL Procedure, treatment alternatives, risks and benefits explained, specific risks discussed. Consent was given by the patient. Patient was prepped and draped in the usual sterile fashion. [facility] XR Knee - right 1 or 2 Views on 09-02-2024 Imaging Result: AP and Lateral weight bearing Moderate patellafemoral and lateral joint line arthritic changes. Flattening of articular surface. Subchondral sclerosis with spurring and joint space narrowing. No acute fracture or dislocation Mild valgus deformity Impression: moderate arthritic changes right knee with no acute bony process. [facility] Radiology Study observation (narrative) [facility] - Hematology and Cell countsOrdered By: Prachi Rojas on 08-31-2024 HbA1c (Bld) [Mass fraction] 11.1 % [facility] No Panel InformationOrdered By: Prachi Rojas on 08-31-2024 [facility] Alanine aminotransferase [En zymatic activity/volume] in Serum or PlasmaOrdered By: Keith Handley on 08-17-2024 ALT [Catalytic activity/Vol] Alanine aminotransferase [Enzymatic activity/volume] in Serum or Plasma 7-52 [facility] Albumin [Mass/volume] in Ser um or Plasma by Bromocresol green (BCG) dye binding methoOrdered By: Keith Handley on 08-17-2024 Albumin BCG dye [Mass/Vol] Albumin [Mass/volume] in Serum or Plasma by Bromocresol green (BCG) dye binding metho 3.5-5.7 [facility] Alkaline phosphatase [Enzyma tic activity/volume] in Serum or PlasmaOrdered By: Keith Handley on 08-17-2024 ALP [Catalytic activity/Vol] Alkaline phosphatase [Enzymatic activity/volume] in Serum or Plasma High 34-104 [facility] Amphetamine Screen Ql (U)Ord ered By: Keith Handley on 08-17-2024 Amphetamines Ql (U) Amphetamines screen Negativ e [facility] Appearance of UrineOrdered B y: Keith Handley on 08-17-2024 Appearance (U) Urine appearance Abnormal Clear [facility] Aspartate aminotransferase [ Enzymatic activity/volume] in Serum or PlasmaOrdered By: Keith Handley on 08-17-2024 AST [Catalytic activity/Vol] Aspartate aminotransferase [Enzymatic activity/volume] in Serum or Plasma 13-39 [facility] Bacteria [Presence] in Urine by AutomatedOrdered By: Keith Handley on 08-17-2024 Bacteria Auto Ql (U) Bacteria [Presence] in Urine by Automated High None Seen [facility] Barbiturates [Presence] in U rine by Screen methodOrdered By: Keith Handley on 08-17-2024 Barbiturates Screen Ql (U) Barbiturates [Presence] in Urine by Screen method Negative [facility] Basophils Auto (Bld) [#/Vol] Ordered By: Keith Handley on 08-17-2024 Basophils (Bld) [#/Vol] Automated basophil count 0.0-0.2 [facility] Basophils/100 WBC Auto (Bld) Ordered By: Keith Handley on 08-17-2024 Basophils/100 WBC (Bld) Automated basophil % . [facility] Benzodiazepines Screen Ql (U )Ordered By: Keith Handley on 08-17-2024 Benzodiazepines Ql (U) Benzodiazepines [Presence] in Urine by Screen method Negative [facility] Benzoylecgonine [Presence] i n Urine by Screen methodOrdered By: Keith Handley on 08-17-2024 Benzoylecgonine Screen Ql (U) Benzoylecgonine [Presence] in Urine by Screen method High Negative [facility] Bilirubin Test strip Ql (U)O rdered By: Keith Handley on 08-17-2024 Bilirubin Ql (U) Bilirubin.total [Presence] in Urine by Test strip Negative [facility] Bilirubin.total [Mass/volume ] in Serum or PlasmaOrdered By: Keith Handley on 08-17-2024 Bilirubin [Mass/Vol] Bilirubin.total [Mass/volume] in Serum or Plasma 0.3-1.0 [facility] Calcium [Mass/volume] in Ser um or PlasmaOrdered By: Keith Handley on 08-17-2024 Calcium [Mass/Vol] Calcium [Mass/volume ] in Serum or Plasma 8.6-10.3 [facility] Cannabinoids [Presence] in U rine by Screen methodOrdered By: Keith Handley on 08-17-2024 Cannabinoids Screen Ql (U) Cannabinoids [Presence] in Urine by Screen method High Negative [facility] Comment on above: These are unconfirme d results and should not be used for legal purposes. Drug Cut-Off Concentration: AMPH 1000 ng/mL ALICIA 200 ng/mL JAMISON 200 ng/mL COCM 300 ng/mL OP 300 ng/mL PCP 25 ng/mL THC 20 ng/mL Carbon dioxide, total [Moles /volume] in Serum or PlasmaOrdered By: Keith Handley on 08-17-2024 CO2 [Moles/Vol] Carbon dioxide, tota l [Moles/volume] in Serum or Plasma 21.0-31.0 [facility] Chloride [Moles/volume] in S miguel or PlasmaOrdered By: Keith Handley on 08-17-2024 Chloride [Moles/Vol] Chloride [Moles/vol ume] in Serum or Plasma 98-107 [facility] Color Auto (U)Ordered By: Lynne Handley on 08-17-2024 Color (U) Color of Urine by Auto Yellow [facility] Complete Blood Count Auto Di ffon 08-17-2024 Basophils (Bld) [#/Vol] 0.1 10*3/uL Normal 0.0-0.2 [facility] Comment on above: Result Comment: PERF ORMED BY:[facility] [place], [place] [phone] MEDICAL DIRECTORLISA CARRINGTON M.D. Performed By: #### C MP, CBC, MG ####[facility] [address] [place] [address] [place] Basophils/100 WBC (Bld) 1.1 % Normal . [facility] Comment on above: Performed By: #### C MP, CBC, MG ####[facility] [place] [address] [place] Eosinophils (Bld) [#/Vol] 0.3 10*3/uL Normal 0.0-0.45 [facility] Comment on above: Performed By: #### C MP, CBC, MG ####[address] Eosinophils/100 WBC (Bld) 3.2 % Normal . [facility] Comment on above: Performed By: #### C MP, CBC, MG ####[address] Erythrocyte distribution width (RBC) [Ratio] 13.3 % Normal 12.0-14.8 [facility] Comment on above: Performed By: #### C MP, CBC, MG ####[address] Hematocrit (Bld) [Volume fraction] 42.3 % Normal 38.8-50.0 [facility] Comment on above: Performed By: #### C MP, CBC, MG ####[address] Hemoglobin (Bld) [Mass/Vol] 14.8 g/dL Normal 13.0-17.0 [facility] Comment on above: Performed By: #### C MP, CBC, MG ####[address] Lymphocytes (Bld) [#/Vol] 2.0 10*3/uL Normal 1.00-4.8 [facility] Comment on above: Performed By: #### C MP, CBC, MG ####[address] Lymphocytes/100 WBC (Bld) 20.7 % Normal . [facility] Comment on above: Performed By: #### C MP, CBC, MG ####[address] MCH (RBC) [Entitic mass] 30.2 pg Normal 27.5-35.2 [facility] Comment on above: Performed By: #### C MP, CBC, MG ####[place] [id number] [place] MCV (RBC) [Entitic vol] 86.1 fL Normal 83.5-101 [facility] Comment on above: Performed By: #### C MP, CBC, MG ####[address] Mean Corpuscular HGB Conc 35.1 g/dL Normal 32.5-35.6 [facility] Comment on above: Performed By: #### C MP, CBC, MG ####[address] Monocytes (Bld) [#/Vol] 1.0 10*3/uL High 0.0-0.8 [facility] Comment on above: Performed By: #### C MP, CBC, MG ####[address] Monocytes/100 WBC (Bld) 19.99 % Normal 0.00-20.00 [facility] Comment on above: Performed By: #### C MP, CBC, MG ####[address] Monocytes/100 WBC (Bld) 10.6 % Normal . [facility] Comment on above: Performed By: #### C MP, CBC, MG ####[address] Neutrophils (Bld) [#/Vol] 6.2 10*3/uL Normal 1.8-7.7 [facility] Comment on above: Performed By: #### C MP, CBC, MG ####[address] Neutrophils/100 WBC (Bld) 64.4 % Normal . [facility] Comment on above: Performed By: #### C MP, CBC, MG ####[address] NRBC% 0.1 /100{WBC} Normal 0-0.5 [facility] Comment on above: Performed By: #### C MP, CBC, MG ####[place] [id number] [place] [id number] [facility] Platelet mean volume (Bld) [Entitic vol] 8.4 fL Normal 6.6-10.1 [facility] Comment on above: Performed By: #### C MP, CBC, MG ####[address] Platelets (Bld) [#/Vol] 296 10*3/uL Normal 150-450 [facility] Comment on above: Performed By: #### C MP, CBC, MG ####[address] RBC (Bld) [#/Vol] 4.91 10*6/uL Normal 3.90-5.60 [facility] Comment on above: Performed By: #### C MP, CBC, MG ####[address] WBC (Bld) [#/Vol] 9.7 10*3/uL Normal 4.1-10.5 [facility] Comment on above: Performed By: #### C MP, CBC, MG ####[address] Comprehensive Metabolic Pane ari 08-17-2024 Albumin [Mass/Vol] 3.9 g/dL Normal 3.5-5.7 [facility] Comment on above: Performed By: #### C MP, CBC, MG ####[address] Albumin/Globulin [Mass ratio] 1.3 {ratio} Normal [facility] Comment on above: Performed By: #### C MP, CBC, MG ####[address] ALP [Catalytic activity/Vol] 179 U/L High 34-104 [facility] Comment on above: Performed By: #### C MP, CBC, MG ####[address] ALT [Catalytic activity/Vol] 22 U/L Normal 7-52 [facility] Comment on above: Performed By: #### C MP, CBC, MG ####[place] [id number] [facility] Anion gap [Moles/Vol] 13.2 mmol/L Normal 6.0-15.0 Th e [facility] Comment on above: Performed By: #### C MP, CBC, MG ####[address] AST [Catalytic activity/Vol] 13 U/L Normal 13-39 [facility] Comment on above: Performed By: #### C MP, CBC, MG ####[address] Bilirubin [Mass/Vol] 0.4 mg/dL Normal 0.3-1.0 [facility] Comment on above: Performed By: #### C MP, CBC, MG ####[address] Calcium [Mass/Vol] 9.0 mg/dL Normal 8.6-10.3 [facility] Comment on above: Performed By: #### C MP, CBC, MG ####[address] Chloride [Moles/Vol] 105 mmol/L Normal 98-107 [facility] Comment on above: Performed By: #### C MP, CBC, MG ####[place] [id number] [facility] CO2 [Moles/Vol] 21.5 mmol/L Normal 21.0-31.0 [facility] Comment on above: Performed By: #### C MP, CBC, MG ####[place] [id number] [facility] Creatinine [Mass/Vol] 0.94 mg/dL Normal 0.70-1.30 [facility] Comment on above: Performed By: #### C MP, CBC, MG ####[place] [id number] [facility] Creatinine Clr Calc Pharmacy 133.51 Normal [facility] Comment on above: Performed By: #### C MP, CBC, MG ####[place] [id number] [address] GFR/1.73 sq M.predicted MDRD (S/P/Bld) [Vol rate/Area] mL/min/{1.73_m2} Normal [facility] Comment on above: Performed By: #### C MP, CBC, MG ####[address] Globulin (S) [Mass/Vol] 2.9 g/dL Normal [facility] Comment on above: Performed By: #### C MP, CBC, MG ####[address] Glucose [Mass/Vol] 134 mg/dL High 70-100 [facility] Comment on above: Result Comment: [place] Glucose Reference Range is dependent on time and content of last meal. Glucose of more than 200 mg/dL in a nonstressed, ambulatory subject supports the diagnosis of Diabetes Mellitus. ADA recommended reference range Performed By: #### C MP, CBC, MG ####[address] Potassium [Moles/Vol] 3.7 mmol/L Normal 3.5-5.1 [facility] Comment on above: Performed By: #### C MP, CBC, MG ####[address] Protein [Mass/Vol] 6.8 g/dL Normal 6.4-8.9 [facility] Comment on above: Performed By: #### C MP, CBC, MG ####[address] Sodium [Moles/Vol] 136 mmol/L Normal 136-145 [facility] Comment on above: Performed By: #### C MP, CBC, MG ####[address] Urea nitrogen [Mass/Vol] 22 mg/dL Normal 7-25 [facility] Comment on above: Performed By: #### C MP, CBC, MG ####[place] [id number] [facility] Creatinine [Mass/volume] in Serum or PlasmaOrdered By: Keith Handley on 08-17-2024 Creatinine [Mass/Vol] Creatinine [Mass/v olume] in Serum or Plasma 0.70-1.30 [facility] Dipstick and Microscopicon 0 08-17-2024 Appearance (U) Cloudy Critically abnormal Clear [facility] Comment on above: Order Comment: Name Collection Type:: Clean-Voided Midstream Performed By: #### C UU, ADDONUAPLUS, URDS ####[place] [id number] [facility] Bacteria,Urine 2+ High None Seen [facility] Comment on above: Order Comment: Name Collection Type:: Clean-Voided Midstream Performed By: #### C UU, ADDONUAPLUS, URDS ####[address] [address] [facility] Bilirubin,Urine Negative Normal Negative [facility] Comment on above: Order Comment: Name Collection Type:: Clean-Voided Midstream Performed By: #### C UU, ADDONUAPLUS, URDS ####[address] [address] [facility] Color (U) Light-Yellow Normal Yellow [facility] Comment on above: Order Comment: Name Collection Type:: Clean-Voided Midstream Performed By: #### C UU, ADDONUAPLUS, URDS ####[address] [address] [facility] Glucose Ql (U) >= High Normal [facility] Comment on above: Order Comment: Name Collection Type:: Clean-Voided Midstream Performed By: #### C UU, ADDONUAPLUS, URDS ####[address] [address] [facility] Hyaline Casts,Urine None Normal 0-[address] [facility] Comment on above: Order Comment: Name Collection Type:: Clean-Voided Midstream Performed By: #### C UU, ADDONUAPLUS, URDS ####[address] Ketones Ql (U) Negative Normal Negative [facility] Comment on above: Order Comment: Name Collection Type:: Clean-Voided Midstream Performed By: #### C UU, ADDONUAPLUS, URDS ####[place] [id number] [facility] Leukocyte esterase Test strip Ql (U) 4+ High Negative [facility] Comment on above: Order Comment: Name Collection Type:: Clean-Voided Midstream Performed By: #### C UU, ADDONUAPLUS, URDS ####[address] Mucus,Urine Rare Normal [facility] Comment on above: Order Comment: Name Collection Type:: Clean-Voided Midstream Result Comment: PERF ORMED BY:[address] [place], [place] [phone] MEDICAL DIRECTORLISA CARRINGTON M.D. Performed By: #### C UU, ADDONUAPLUS, URDS ####[address] Nitrite,Urine Negative Normal Negative [facility] Comment on above: Order Comment: Name Collection Type:: Clean-Voided Midstream Performed By: #### C UU, ADDONUAPLUS, URDS ####[place] [id number] [facility] Occult Blood,Urine Negative Normal Negative [facility] Comment on above: Order Comment: Name Collection Type:: Clean-Voided Midstream Result Comment: PERF ORMED BY:[address] [place], [place] [phone] MEDICAL DIRECTORLISA MCJACQUE [place] Performed By: #### C UU, ADDONUAPLUS, URDS ####[place] [id number] [place] pH (U) 5.5 [pH] Normal 5.0-9.0 [facility] Comment on above: Order Comment: Name Collection Type:: Clean-Voided Midstream Performed By: #### C UU, ADDONUAPLUS, URDS ####[place] [id number] [facility] Protein (U) [Mass/Vol] 70 mg/dL High Negative Th e [facility] Comment on above: Order Comment: Name Collection Type:: Clean-Voided Midstream Performed By: #### C UU, ADDONUAPLUS, URDS ####[address] RBC,Urine 10 [HPF] High 0-4 [facility] Comment on above: Order Comment: Name Collection Type:: Clean-Voided Midstream Performed By: #### C UU, ADDONUAPLUS, URDS ####[address] Specificy [place],Urine 1.028 Normal 1.001-1.03 0 [facility] Comment on above: Order Comment: Name Collection Type:: Clean-Voided Midstream Performed By: #### C UU, ADDONUAPLUS, URDS ####[place] [id number] [facility] Squamous Epithelial Cell,Urine 1 [HPF] Normal 0-2 [facility] Comment on above: Order Comment: Name Collection Type:: Clean-Voided Midstream Performed By: #### C UU, ADDONUAPLUS, URDS ####[place] [id number] [facility] Urobilinogen,Urine Normal Normal Normal The [facility] Comment on above: Order Comment: Name Collection Type:: Clean-Voided Midstream Performed By: #### C UU, ADDONUAPLUS, URDS ####[place] [id number] [facility] WBC CLUMP, Urine Few High None Seen The [facility] Comment on above: Order Comment: Name Collection Type:: Clean-Voided Midstream Performed By: #### C UU, ADDONUAPLUS, URDS ####[address] WBC,Urine Innumerable High 0-4 [facility] Comment on above: Order Comment: Name Collection Type:: Clean-Voided Midstream Performed By: #### C UU, ADDONUAPLUS, URDS ####[address] Drug Screen,Urineon 08-17-19 Amphetamine Screen,Urine Negative Normal Negative [facility] Comment on above: Performed By: #### C UU, ADDONUAPLUS, URDS ####[address] Barbiturate Screen,Urine Negative Normal Negative [facility] Comment on above: Performed By: #### C UU, ADDONUAPLUS, URDS ####[address] Benzodiazepines Screen,Urine Negative Normal Negative [facility] Comment on above: Performed By: #### C UU, ADDONUAPLUS, URDS ####[address] Cannabinoid Screen,Urine Positive High Negative [facility] Comment on above: Result Comment: Thes e are unconfirmed results and should not be used for legal purposes. Drug Cut-Off Concentration: AMPH 1000 ng/mL ALICIA 200 ng/mL JAMISON 200 ng/mL COCM 300 ng/mL OP 300 ng/mL PCP 25 ng/mL THC 20 ng/mLPERFORMED BY:[address] [place], [place] [phone] MEDICAL DIRECTORLISA CARRINGTON M.D. Performed By: #### C UU, ADDONUAPLUS, URDS ####[address] Cocaine Screen,Urine Positive High Negative [facility] Comment on above: Performed By: #### C UU, ADDONUAPLUS, URDS ####[facility] [id number] Opiate Screen,Urine Negative Normal Negative The [facility] Comment on above: Performed By: #### C UU, ADDONUAPLUS, URDS ####[facility] [id number] [place] [id number] [facility] Phencyclidine Screen,Urine Negative Normal Negative [facility] Comment on above: Performed By: #### C UU, ADDONUAPLUS, URDS ####[facility] [id number] [place] [id number] [facility] Eosinophils Auto (Bld) [#/Vo l]Ordered By: Keith Handley on 08-17-2024 Eosinophils (Bld) [#/Vol] Automated eosinophil count 0.0-0.45 [facility] Eosinophils/100 WBC Auto (Bl d)Ordered By: Keith Handley on 08-17-2024 Eosinophils/100 WBC (Bld) Automated eosinophil % . [facility] Epithelial cells.squamous [# /area] in Urine sediment by Automated countOrdered By: Keith Handley on 08-17-2024 Epithelial cells.squamous Auto (Urine sed) [#/Area] Epithelial cells.squamous [#/area] in Urine sediment by Automated count 0-2 [facility] Erythrocyte distribution wid th Auto (RBC) [Ratio]Ordered By: Keith Handley on 08-17-2024 Erythrocyte distribution width (RBC) [Ratio] Erythrocyte distribution width [Ratio] by Automated count 12.0-14.8 [facility] Erythrocytes [#/area] in Uri ne sediment by Automated countOrdered By: Keith Handley on 08-17-2024 RBC Auto (Urine sed) [#/Area] Erythrocytes [#/area] in Urine sediment by Automated count High 0-4 [facility] Globulin Calc (S) [Mass/Vol] Ordered By: Keith Handley on 08-17-2024 Globulin (S) [Mass/Vol] Serum globulin measurement by calculation (mass/volume) [facility] Glucose [Mass/volume] in Ser um or PlasmaOrdered By: Keith Handley on 08-17-2024 Glucose [Mass/Vol] Glucose [Mass/volume ] in Serum or Plasma High 70-100 [facility] Comment on above: ADA recommended refe rence rangeRandom Glucose Reference Range is dependent on time and content of last meal. Glucose of more than 200 mg/dL in a nonstressed, ambulatory subject supports the diagnosis of Diabetes Mellitus. Glucose [Mass/volume] in Uri ne by Test stripOrdered By: Keith Handley on 08-17-2024 Glucose Test strip (U) [Mass/Vol] Glucose [Mass/volume] in Urine by Test strip High Normal [facility] Hematocrit Auto (Bld) [Volum e fraction]Ordered By: Keith Handley on 08-17-2024 Hematocrit (Bld) [Volume fraction] Hematocrit [Volume Fraction] of Blood by Automated count 38.8-50.0 [facility] Hemoglobin Test strip Ql (U) Ordered By: Keith Handley on 08-17-2024 Hemoglobin Ql (U) Hemoglobin [Presence ] in Urine by Test strip Negative [facility] Hemoglobin [Mass/volume] in BloodOrdered By: Keith Handley on 08-17-2024 Hemoglobin (Bld) [Mass/Vol] Hemoglobin [Mass/volume] in Blood 13.0-17.0 [facility] Hyaline casts [#/area] in Ur ine sediment by Automated countOrdered By: Keith Handley on 08-17-2024 Hyaline casts Auto (Urine sed) [#/Area] Hyaline casts [#/area] in Urine sediment by Automated count 0-8 [facility] Ketones Test strip Ql (U)Ord ered By: Keith Handley on 08-17-2024 Ketones Ql (U) Ketones [Presence] i n Urine by Test strip Negative [facility] Leukocyte clumps [Presence] in Urine by AutomatedOrdered By: Keith Handley on 08-17-2024 Leukocyte clumps Auto Ql (U) Leukocyte clumps [Presence] in Urine by Automated High None Seen [facility] Leukocyte esterase [Presence ] in Urine by Test stripOrdered By: Keith Handley on 08-17-2024 Leukocyte esterase Test strip Ql (U) Leukocyte esterase [Presence] in Urine by Test strip High Negative [facility] Leukocytes [#/area] in Urine sediment by Automated countOrdered By: Keith Handley on 08-17-2024 WBC Auto (Urine sed) [#/Area] Leukocytes [#/area] in Urine sediment by Automated count High 0-4 [facility] Leukocytes [#/volume] correc roe for nucleated erythrocytes in Blood by Automated counOrdered By: Keith Handley on 08-17-2024 WBC corrected for nucl RBC Auto (Bld) [#/Vol] Leukocytes [#/volume] corrected for nucleated erythrocytes in Blood by Automated coun 4.1-10.5 [facility] Lymphocytes Auto (Bld) [#/Vo l]Ordered By: Keith Handley on 08-17-2024 Lymphocytes (Bld) [#/Vol] Lymphocytes [#/volume] in Blood by Automated count 1.00-4.8 [facility] Lymphocytes/100 WBC Auto (Bl d)Ordered By: Keith Handley on 08-17-2024 Lymphocytes/100 WBC (Bld) Lymphocytes/100 leukocytes in Blood by Automated count . [facility] MCH Auto (RBC) [Entitic mass ]Ordered By: Keith Handley on 08-17-2024 MCH (RBC) [Entitic mass] MCH [Entitic mass] by Automated count 27.5-35.2 [facility] MCHC Auto (RBC) [Mass/Vol]Or dered By: Keith Handley on 08-17-2024 MCHC (RBC) [Mass/Vol] MCHC [Mass/volume] by Automated count 32.5-35.6 [facility] MCV Auto (RBC) [Entitic vol] Ordered By: Keith Handley on 08-17-2024 MCV (RBC) [Entitic vol] MCV [Entitic volume] by Automated count 83.5-101 [facility] Magnesiumon 08-17-2024 Magnesium [Mass/Vol] 1.6 mg/dL Low 1.9-2.7 [facility] Comment on above: Result Comment: PERF ORMED BY:[facility] [place], [place] [phone] MEDICAL DIRECTORLISA CARRINGTON M.D. Performed By: #### C MP, CBC, MG ####[facility] [place] [address] [facility] Magnesium [Mass/volume] in S miguel or PlasmaOrdered By: Keith Handley on 08-17-2024 Magnesium [Mass/Vol] Magnesium [Mass/vol ume] in Serum or Plasma Low 1.9-2.7 [facility] Monocyte distribution width [Entitic volume] in Blood by AutomatedOrdered By: Keith Handley on 08-17-2024 Monocyte distribution width Auto (Bld) [Entitic vol] Monocyte distribution width [Entitic volume] in Blood by Automated 0.00-20.00 [facility] Monocytes Auto (Bld) [#/Vol] Ordered By: Keith Handley on 08-17-2024 Monocytes (Bld) [#/Vol] Automated blood monocyte count High 0.0-0.8 [facility] Monocytes/100 WBC Auto (Bld) Ordered By: Keith Handley on 08-17-2024 Monocytes/100 WBC (Bld) Automated monocyte % . [facility] Mucus [Presence] in Urine by AutomatedOrdered By: Keith Handley on 08-17-2024 Mucus Auto Ql (U) Mucus [Presence] in Urine by Automated [facility] Neutrophils Auto (Bld) [#/Vo l]Ordered By: Keith Handley on 08-17-2024 Neutrophils (Bld) [#/Vol] Neutrophils [#/volume] in Blood by Automated count 1.8-7.7 [facility] Neutrophils/100 WBC Auto (Bl d)Ordered By: Keith Handley on 08-17-2024 Neutrophils/100 WBC (Bld) Automated neutrophil % . [facility] Nitrite Test strip Ql (U)Ord ered By: Keith Handley on 08-17-2024 Nitrite Ql (U) Nitrite [Presence] i n Urine by Test strip Negative [facility] No Panel InformationOrdered By: Keith Handley on 08-17-2024 Estimated GFR (CKD-EPI) > 60.0 mL/Min [facility] Creatinine Clearance (Chem 133.51 [facility] Nucleated erythrocytes [Pres ence] in Blood by Automated countOrdered By: Keith Handley on 08-17-2024 Nucleated RBC Auto Ql (Bld) Nucleated erythrocytes [Presence] in Blood by Automated count 0-0.5 [facility] Opiates [Presence] in Urine by Screen methodOrdered By: Keith Handley on 08-17-2024 Opiates Screen Ql (U) Opiates [Presence] in Urine by Screen method Negative [facility] Phencyclidine Screen Ql (U)O rdered By: Keith Handley on 08-17-2024 Phencyclidine Ql (U) Phencyclidine [Pres ence] in Urine by Screen method Negative [facility] Platelet mean volume Auto (B ld) [Entitic vol]Ordered By: Keith Handley on 08-17-2024 Platelet mean volume (Bld) [Entitic vol] Platelet mean volume [Entitic volume] in Blood by Automated count 6.6-10.1 [facility] Platelets Auto (Bld) [#/Vol] Ordered By: Keith Handley on 08-17-2024 Platelets (Bld) [#/Vol] Platelets [#/volume] in Blood by Automated count 150-450 [facility] Potassium [Moles/volume] in Serum or PlasmaOrdered By: Keith Handley on 08-17-2024 Potassium [Moles/Vol] Potassium [Moles/v olume] in Serum or Plasma 3.5-5.1 [facility] Protein Test strip (U) [Mass /Vol]Ordered By: Keith Handley on 08-17-2024 Protein (U) [Mass/Vol] Protein [Mass/vol ume] in Urine by Test strip High Negative [facility] Protein [Mass/volume] in Ser um or PlasmaOrdered By: Keith Handley on 08-17-2024 Protein [Mass/Vol] Protein [Mass/volume ] in Serum or Plasma 6.4-8.9 [facility] RBC Auto (Bld) [#/Vol]Ordere d By: Keith Handley on 08-17-2024 RBC (Bld) [#/Vol] Erythrocytes [#/volu me] in Blood by Automated count 3.90-5.60 [facility] Serum or plasma albumin/glob ulin mass ratioOrdered By: Keith Handley on 08-17-2024 Albumin/Globulin [Mass ratio] Serum or plasma albumin/globulin mass ratio [facility] Serum or plasma anion gap de terminationOrdered By: Keith Handley on 08-17-2024 Anion gap [Moles/Vol] Serum or plasma an ion gap determination 6.0-15.0 [facility] Sodium [Moles/volume] in Ser um or PlasmaOrdered By: Keith Handley on 08-17-2024 Sodium [Moles/Vol] Sodium [Moles/volume ] in Serum or Plasma 136-145 [facility] Specific gravity Test strip (U) [Rel density]Ordered By: Keith Handley on 08-17-2024 Specific gravity (U) [Rel density] Specific gravity of Urine by Test strip 1.001-1.03 0 [facility] Urea nitrogen [Mass/volume] in Serum or PlasmaOrdered By: Keith Handley on 08-17-2024 Urea nitrogen [Mass/Vol] Urea nitrogen [Mass/volume] in Serum or Plasma 7-25 [facility] Urine Cultureon 08-17-2024 Bacteria identified Cx Nom (U) Normal [facility] Comment on above: Performed By: #### C UU, LINDA, URDS ####[facility] [id number] [place] [address] [facility] Urine cultureOrdered By: Isael Handley on 08-17-2024 Bacteria identified Cx Nom (U) Urine culture [facility] Bacteria identified Cx Nom (U) Urine culture [facility] Urobilinogen Test strip (U) [Mass/Vol]Ordered By: Keith Handley on 08-17-2024 Urobilinogen (U) [Mass/Vol] Urobilinogen [Mass/volume] in Urine by Test strip Normal [facility] WBC Auto (Bld) [#/Vol]Ordere d By: Keith Handley on 08-17-2024 WBC (Bld) [#/Vol] Leukocytes [#/volume ] in Blood by Automated count 4.1-10.5 [facility] pH Test strip (U)Ordered By: Keith Handley on 08-17-2024 pH (U) pH of Urine by Test strip 5.0-9.0 [facility] ANAon 07-21-2024 Nuclear Ab Ql (S) Positive Abnormal Negative [facility] C-reactive proteinon 024 CRP [Mass/Vol] 16 mg/L High 0 - 10 mg/L [facility] CBC W Auto Differential pane l (Bld)on 07-21-2024 Basophils (Bld) [#/Vol] 0 10*3/uL [facility] Basophils/100 WBC (Bld) 0 % Not Estab. [facility] Eosinophils (Bld) [#/Vol] 0 10*3/uL [facility] Eosinophils/100 WBC (Bld) 0 % Not Estab. [facility] Erythrocyte distribution width (RBC) [Ratio] 12.3 % 11.6 - 15.4 % [facility] Hematocrit (Bld) [Volume fraction] 48.1 % 37.5 - 51.0 % [facility] Hemoglobin (Bld) [Mass/Vol] 15.7 g/dL 13.0 - 17.7 g/dL [facility] Immature granulocytes (Bld) [#/Vol] 0.1 10*3/uL [facility] Immature granulocytes/100 WBC (Bld) 1 % Not Estab. [facility] Lymphocytes (Bld) [#/Vol] 0.7 10*3/uL [facility] Lymphocytes/100 WBC (Bld) 6 % Not Estab. [facility] MCH (RBC) [Entitic mass] 29.8 pg 26.6 - 33.0 pg [facility] MCHC (RBC) [Mass/Vol] 32.6 g/dL 31.5 - 35.7 g/dL [facility] MCV (RBC) [Entitic vol] 91 fL 79 - 97 fL [facility] Monocytes (Bld) [#/Vol] 0.4 10*3/uL [facility] Monocytes/100 WBC (Bld) 4 % Not Estab. [facility] Neutrophils (Bld) [#/Vol] 11.1 10*3/uL High [facility] Neutrophils/100 WBC (Bld) 89 % Not Estab. [facility] Platelets (Bld) [#/Vol] 358 10*3/uL [facility] RBC (Bld) [#/Vol] 5.26 10*6/uL [facility] WBC (Bld) [#/Vol] 12.2 10*3/uL High [facility] CKon 07-21-2024 CK [Catalytic activity/Vol] 57 U/L 41 - 331 U/L [facility] Comprehensive metabolic pane ari 07-21-2024 Albumin [Mass/Vol] 4.1 g/dL 3.8 - 4.9 g/dL [facility] ALP [Catalytic activity/Vol] 312 U/L High [facility] ALT [Catalytic activity/Vol] 47 U/L High [facility] AST [Catalytic activity/Vol] 16 U/L [facility] Bilirubin [Mass/Vol] 0.6 mg/dL 0.0 - 1 .2 mg/dL [facility] Calcium [Mass/Vol] 9.6 mg/dL 8.7 - 10. 2 mg/dL [facility] Chloride [Moles/Vol] 95 mmol/L Low 96 - 10 6 mmol/L [facility] CO2 [Moles/Vol] 17 mmol/L Low 20 - 29 mmol/L [facility] Creatinine [Mass/Vol] 1.2 mg/dL 0.76 - 1.27 mg/dL [facility] GFR/1.73 sq M.predicted among non-blacks MDRD (S/P/Bld) [Vol rate/Area] 72 mL/min/{1.73_m2} 59 - PINF mL/min/1.7 3 [facility] Globulin (S) [Mass/Vol] 3.1 g/dL 1.5 - 4.5 g/dL [facility] Glucose [Mass/Vol] 542 mg/dL Off scale high 70 - 99 mg/dL [facility] Comment on above: Verified by repeat analysis Potassium [Moles/Vol] 4.5 mmol/L 3.5 - 5.2 mmol/L [facility] Protein [Mass/Vol] 7.2 g/dL 6.0 - 8.5 g/dL [facility] Sodium [Moles/Vol] 132 mmol/L Low 134 - 144 mmol/L [facility] Urea nitrogen [Mass/Vol] 29 mg/dL High 6 - 24 mg/dL [facility] Urea nitrogen/Creatinine [Mass ratio] 24 mg/mg High 9 - 20 [facility] Cyclic citrul peptide antibo dy, IgGon 07-21-2024 Cyclic citrullinated peptide IgA+IgG IA Qn 177 High [facility] Comment on above: Negative <20 Weak positive 20 - 39 Moderate positive 40 - 59 Strong positive >59 No Panel Informationon 07-21 Interpretation and review of laboratory results Abnormal [facility] Performed at: 01 - [address] [id number] [employer] Ambassador: Yury Hernandez PhD, Phone: [phone] Specimen Comment: Called/faxed to [facility] on 07/21/2024 at 09:01 ET for test Specimen Comment: Glucose [facility] PTH, intacton 07-21-2024 Parathyrin.intact [Mass/Vol] 80 pg/mL High 15 - 65 pg/mL [facility] Rheumatoid factoron 07-21-20 Rheumatoid factor Qn 12.5 [IU]/mL NINF NO [facility] SJOGREN'S AB, ANTI-SS-A/-SS- Bon 07-21-2024 Sjogrens syndrome-A extractable nuclear Ab Qn (S) <0.2 [facility] Sjogrens syndrome-B extractable nuclear Ab Qn (S) <0.2 [facility] Sedimentation rate, automate don 07-21-2024 ESR (Bld) [Velocity] 70 mm/h High [facility] Specimen Status Reporton Clindamycin Disk diffusion (KB) [Susc] Comment [facility] Comment on above: José Trevino CMP14 D efault José Trevino CMP14 Default A hand-written panel/profile was received from your office. In accordance with the [facility] Ambiguous Test Code Policy dated February 2003, we have completed your order by using the closest currently or formerly recognized AMA panel. We have assigned Comprehensive Metabolic Panel (14), Test Code #873696 to this request. If this is not the testing you wished to receive on this specimen, please contact the [facility] Client Inquiry/Technical Services Department to clarify the test order. We appreciate your business. Uric acidon 07-21-2024 Urate [Mass/Vol] 6.3 mg/dL 3.8 - 8.4 mg/dL [facility] Comment on above: Therapeutic target f or gout patients: <6.0 Glucose Glucometer (BldC) [M ass/Vol]Ordered By: PROVIDER TEMP on 07-19-2024 Glucose [Mass/Vol] Capillary blood gluc ose measurement by glucometer (mass/volume) [facility] Comment on above: Random Glucose Refer ence Range is dependent on time and content of last meal. Glucose of more than 200 mg/dL in a nonstressed, ambulatory subject supports the diagnosis of Diabetes Mellitus. Glucose Poct Glucometerson 1 09-19-2023 Commemt1 Normal [facility] Comment on above: Result Comment: Glu2 : WILL NOTIFY DR/RN Performed By: #### G LULS ####Point of Care testing, Commemt2 Cleaned Meter Normal [facility] Comment on above: Result Comment: PERF ORMED BY:[facility] [place], [place] [id number] MEDICAL DIRECTORLISA CARRINGTON M.D. Performed By: #### G LULS ####Point of Care testing, Glucose [Mass/Vol] 566 mg/dL Off scale high Th e [facility] Comment on above: Result Comment: [place] om Glucose Reference Range is dependent on time and content of last meal. Glucose of more than 200 mg/dL in a nonstressed, ambulatory subject supports the diagnosis of Diabetes Mellitus. Performed By: #### G LULS ####Point of Care testing, No Panel InformationOrdered By: PROVIDER TEMP on 07-19-2024 Bedside Glucose #2 Comment Cleaned meter [facility] Bedside Glucose Comment See comment [facility] Comment on above: Glu2: WILL NOTIFY DR /RN XR knee BI 2Von 07-18-2024 XR knee BI 2V Normal [facility] ECG 12 lead ECGon 07-15-2024 ECG 12 lead ECG Normal [facility] XR knee BI 2Von 07-15-2024 XR knee BI 2V Normal [facility] XR nasal bones min 3V*on XR nasal bones min 3V* Normal [facility] CT head/brain wo conon 07-09 CT head/brain wo con Normal [facility] Glucose Glucometer (dC) [M ass/Vol]Ordered By: Nestor Weeks on 07-06-2024 Glucose [Mass/Vol] Capillary blood gluc ose measurement by glucometer (mass/volume) Critically high [facility] Comment on above: Random Glucose Refer ence Range is dependent on time and content of last meal. Glucose of more than 200 mg/dL in a nonstressed, ambulatory subject supports the diagnosis of Diabetes Mellitus. Glucose Poct Glucometerson 1 09-06-2023 Commemt1 Normal [facility] Comment on above: Result Comment: Glu2 : WILL NOTIFY /RNPERFORMED BY:[facility] [place], [place] [phone] MEDICAL DIRECTORLISA CARRINGTON M.D. Performed By: #### G LUALEA ####Point of Care testing, Glucose [Mass/Vol] 435 mg/dL Off scale high Th e [facility] Comment on above: Result Comment: [facility] Glucose Reference Range is dependent on time and content of last meal. Glucose of more than 200 mg/dL in a nonstressed, ambulatory subject supports the diagnosis of Diabetes Mellitus. Performed By: #### G LULS ####Point of Care testing, No Panel InformationOrdered By: Nestor Weeks on 07-06-2024 Bedside Glucose Comment See comment [facility] Comment on above: Glu2: WILL NOTIFY DR /RN X-ray reportOrdered By: Robi Cruz on 06-18-2024 Study report [facility] Main [address] [address] XRay Report Signed Patient: Kerline Chang MR#: [id number] : 1970 Acct:[id number] Age/Sex: 54 / M ADM Date: 4 Loc: ER Room: Type: [facility] ER Attending Dr: Copies to: TEE Rao~ Ordering Provider: TEE Rao Date of Service: 06/18/24 XR/XR knee RT 4V*: Fall XR knee RT 4V* 06/18/2024 11:51 AM SIGNS AND SYMPTOMS: Right knee instability, right knee pain PROTOCOL: Frontal, lateral, and oblique radiographs of the right knee COMPARISON: 05/15/2024 FINDINGS: Centimeters loose bodies are noted in the posterior aspect of the joint space measuring up to 13 mm in greatest dimension. There is tricompartmental joint space loss, greatest in the patellofemoral joint space. There is a moderate joint effusion. No subluxation. No fracture. XR/XR knee RT 4V* IMPRESSION: Similar tricompartmental degenerative changes without evidence of fracture or dislocation. Ossific loose bodies are redemonstrated posteriorly measuring up to 13 mm in greatest dimension. There is a moderate joint effusion which is new. Impression dictated by: Robi Cruz M.D.06/18/2024 12:14 PM Dictation Location: [facility]-- Transcribed By: [facility] 06/18/241213 Dictated By: Robi Cruz II, MD 06/18/241212 Signed By: 06/18/24 121 [facility] Work Phone: XR knee RT 4V*on 06-18-2024 XR knee RT 4V* Normal [facility] Glucose Glucometer (BldC) [M ass/Vol]Ordered By: Erwin Ragsdale on 06-13-2024 Glucose [Mass/Vol] Capillary blood gluc ose measurement by glucometer (mass/volume) Critically [facility] Comment on above: Random Glucose Refer ence Range is dependent on time and content of last meal. Glucose of more than 200 mg/dL in a nonstressed, ambulatory subject supports the diagnosis of Diabetes Mellitus. Glucose Poct Glucometerson 1 08-13-2023 Commemt1 Normal [facility] Comment on above: Result Comment: Glu2 : WILL NOTIFY DR/RNPERFORMED BY:[address] [place], [place] [id number] MEDICAL DIRECTORBRENTON THORNE M.D. Performed By: #### G LULS ####Point of Care testing, Glucose [Mass/Vol] 475 mg/dL Off scale high [facility] Comment on above: Result Comment: [place] Glucose Reference Range is dependent on time and content of last meal. Glucose of more than 200 mg/dL in a nonstressed, ambulatory subject supports the diagnosis of Diabetes Mellitus. Performed By: #### G LULS ####Point of Care testing, No Panel InformationOrdered By: Erwin Ragsdale on 06-13-2024 Bedside Glucose Comment See comment [facility] Comment on above: Glu2: WILL NOTIFY DR /DINORAH Hemoglobin a1c with eagon Glucose [Mass/Vol] 301 mg/dL [facility] HbA1c (Bld) [Mass fraction] 12.1 % High 4.3 - 5.6 % [facility] Comment on above: Increased risk for d iabetes: 5.7 - 6.4 diabetes: >6.4 glycemic control for adults with diabetes: <7.0 Interpretation and review of laboratory results Abnormal [facility] Healthcare [facility] A1C with Estimated Average G yo 05-21-2024 Glucose [Mass/Vol] 301 mg/dL Normal [facility] Comment on above: Result Comment: PERF ORMED BY:[address] [place], [place] [phone] MEDICAL DIRECTORBRENTON THORNE M.D. Performed By: #### V [id number], A1C WT eA, PTH, CMP ####[address] [place] [address] [facility] Alanine aminotransferase [En zymatic activity/volume] in Serum or PlasmaOrdered By: Nisa Rojas on 05-21-2024 ALT [Catalytic activity/Vol] 22 U/L Normal [facility] Comment on above: Performed By: #### V [id number], A1C WT eA, PTH, CMP ####[address] [place] [address] [facility] ALT [Catalytic activity/Vol] Alanine aminotransferase [Enzymatic activity/volume] in Serum or Plasma [facility] Albumin [Mass/volume] in Ser um or Plasma by Bromocresol green (BCG) dye binding methoOrdered By: Nisa Rojas on 05-21-2024 Albumin BCG dye [Mass/Vol] 3.6 g/dL 3.5-5.7 [facility] Albumin BCG dye [Mass/Vol] Albumin [Mass/volume] in Serum or Plasma by Bromocresol green (BCG) dye binding metho 3.5-5.7 [facility] Alkaline phosphatase [Enzyma tic activity/volume] in Serum or PlasmaOrdered By: Nisa Rojas on 05-21-2024 ALP [Catalytic activity/Vol] 147 U/L High 34-104 [facility] Comment on above: Performed By: #### V [id number], A1C WTH eA, PTH, CMP ####[facility] [place] [address] [place] ALP [Catalytic activity/Vol] Alkaline phosphatase [Enzymatic activity/volume] in Serum or Plasma High 34-104 [facility] Aspartate aminotransferase [ Enzymatic activity/volume] in Serum or PlasmaOrdered By: Nisa Rojas on 05-21-2024 AST [Catalytic activity/Vol] 16 U/L Normal 13-39 [facility] Comment on above: Performed By: #### V [id number], A1C WTH eA, PTH, CMP ####[facility] [address] [place] [address] [facility] AST [Catalytic activity/Vol] Aspartate aminotransferase [Enzymatic activity/volume] in Serum or Plasma 13-39 [facility] Bilirubin.total [Mass/volume ] in Serum or PlasmaOrdered By: iNsa Rojas on 05-21-2024 Bilirubin [Mass/Vol] 0.6 mg/dL Normal 0.3-1.0 [facility] Comment on above: Performed By: #### V [id number], A1C WTH eA, PTH, CMP ####[facility] [id number] [place] [address] [facility] Bilirubin [Mass/Vol] Bilirubin.total [Mass/volume] in Serum or Plasma 0.3-1.0 [facility] Blood estimated average gluc ose determination by estimation from glycated hemoglobinOrdered By: Nisa Rojas on 05-21-2024 Average glucose Estimated from glycated hemoglobin (Bld) [Mass/Vol] Glucose mean value [Mass/volume] in Blood Estimated from glycated hemoglobin [facility] Calcium [Mass/volume] in Ser um or PlasmaOrdered By: Nisa Rojas on 05-21-2024 Calcium [Mass/Vol] 8.6 mg/dL Normal 8.6-10.3 [facility] Comment on above: Performed By: #### V [id number], A1C WTH eA, PTH, CMP ####[facility] [address] [place] [address] [facility] Calcium [Mass/Vol] Calcium [Mass/volume ] in Serum or Plasma 8.6-10.3 [facility] Carbon dioxide, total [Moles /volume] in Serum or PlasmaOrdered By: Nisa Rojas on 05-21-2024 CO2 [Moles/Vol] 28.5 mmol/L Normal 21.0-31.0 [facility] Comment on above: Performed By: #### V [id number], A1C WTH eA, PTH, CMP ####[address] [address] [facility] CO2 [Moles/Vol] Carbon dioxide, tota l [Moles/volume] in Serum or Plasma 21.0-31.0 [facility] Chloride [Moles/volume] in S miguel or PlasmaOrdered By: Nisa Rojas on 05-21-2024 Chloride [Moles/Vol] 103 mmol/L Normal 98-107 [facility] Comment on above: Performed By: #### V [id number], A1C WTH eA, PTH, CMP ####[address] [address] [facility] Chloride [Moles/Vol] Chloride [Moles/vol ume] in Serum or Plasma 98-107 [facility] Comprehensive Metabolic Pane ari 05-21-2024 Albumin [Mass/Vol] 3.6 g/dL Normal 3.5-5.7 [facility] Comment on above: Performed By: #### V [id number], A1C WTH eA, PTH, CMP ####[address] [address] [facility] GFR/1.73 sq M.predicted MDRD (S/P/Bld) [Vol rate/Area] mL/min/{1.73_m2} Normal [facility] Comment on above: Performed By: #### V [id number], A1C WTH eA, PTH, CMP ####[address] [address] [place] Creatinine [Mass/volume] in Serum or PlasmaOrdered By: Nisa Rojas on 05-21-2024 Creatinine [Mass/Vol] 0.96 mg/dL Normal 0.70-1.30 [facility] Comment on above: Performed By: #### V [id number], A1C WTH eA, PTH, CMP ####[address] [address] [place] Creatinine [Mass/Vol] Creatinine [Mass/v olume] in Serum or Plasma 0.70-1.30 [facility] Globulin Calc (S) [Mass/Vol] Ordered By: Nisa Rojas on 05-21-2024 Globulin (S) [Mass/Vol] Serum globulin measurement by calculation (mass/volume) [facility] Glucose [Mass/volume] in Ser um or PlasmaOrdered By: Nisa Rojas on 05-21-2024 Glucose [Mass/Vol] 220 mg/dL High 70-100 [facility] Comment on above: ADA recommended refe rence rangeRandom Glucose Reference Range is dependent on time and content of last meal. Glucose of more than 200 mg/dL in a nonstressed, ambulatory subject supports the diagnosis of Diabetes Mellitus. Result Comment: [place] om Glucose Reference Range is dependent on time and content of last meal. Glucose of more than 200 mg/dL in a nonstressed, ambulatory subject supports the diagnosis of Diabetes Mellitus. ADA recommended reference range Performed By: #### V [id number], A1C WTH eA, PTH, CMP ####[facility] [address] [place] [address] [facility] Glucose [Mass/Vol] Glucose [Mass/volume ] in Serum or Plasma High 70-100 [facility] Comment on above: ADA recommended refe rence rangeRandom Glucose Reference Range is dependent on time and content of last meal. Glucose of more than 200 mg/dL in a nonstressed, ambulatory subject supports the diagnosis of Diabetes Mellitus. Glucose mean value [Mass/vol ume] in Blood Estimated from glycated hemoglobinOrdered By: Nisa Rojas on 05-21-2024 Average glucose Estimated from glycated hemoglobin (Bld) [Mass/Vol] 301 mg/dL [facility] Hemoglobin A1c percentageOrd ered By: Nisa Rojas on 05-21-2024 HbA1c (Bld) [Mass fraction] 12.1 % High 4.3-5.6 [facility] Comment on above: Increased risk for d iabetes: 5.7 - 6.4diabetes: >6.4glycemic control for adults with diabetes: <7.0 Result Comment: Incr eased risk for diabetes: 5.7 - 6.4 diabetes: >6.4 glycemic control for adults with diabetes: <7.0 Performed By: #### V [id number], A1C WTH eA, PTH, CMP ####[facility] [address] [place] [address] [facility] Hemoglobin A1c/Hemoglobin.to xiomara in BloodOrdered By: Nisa Rojas on 05-21-2024 HbA1c (Bld) [Mass fraction] Hemoglobin A1c percentage High 4.3-5.6 [facility] Comment on above: Increased risk for d iabetes: 5.7 - 6.4diabetes: >6.4glycemic control for adults with diabetes: <7.0 No Panel InformationOrdered By: Nisa Rojas on 05-21-2024 Estimated GFR (CKD-EPI) > 60.0 mL/Min [facility] Creatinine Clearance (Chem N/A [facility] Parathyrin.intact [Mass/Vol] on 05-21-2024 Interpretation and review of laboratory results Abnormal [facility] PARATHYROID HORMONE INTACT 108.4 pg/mL High 12 - 88 pg/mL [facility] Parathyrin.intact [Mass/volu me] in Serum or PlasmaOrdered By: Nisa Rojas on 05-21-2024 Parathyrin.intact [Mass/Vol] 108.4 pg/mL High [facility] Parathyrin.intact [Mass/Vol] Parathyrin.intact [Mass/volume] in Serum or Plasma High [facility] Parathyroid Hormone Intacton 05-21-2024 Parathyroid Hormone Intact 108.4 pg/mL High [facility] Comment on above: Result Comment: PERF ORMED BY:[address] [place], [place] [phone] MEDICAL DIRECTORBRENTON THORNE M.D. Performed By: #### V [id number], A1C WTH eA, PTH, CMP ####[facility] [id number] [place] [address] [place] Potassium [Moles/volume] in Serum or PlasmaOrdered By: Nisa Rojas on 05-21-2024 Potassium [Moles/Vol] 4.6 mmol/L Normal 3.5-5.1 [facility] Comment on above: Performed By: #### V [id number], A1C WTH eA, PTH, CMP ####[address] [place] [address] [place] Potassium [Moles/Vol] Potassium [Moles/v olume] in Serum or Plasma 3.5-5.1 [facility] Protein [Mass/volume] in Ser um or PlasmaOrdered By: Nisa Rojas on 05-21-2024 Protein [Mass/Vol] 6.5 g/dL Normal 6.4-8.9 [facility] Comment on above: Performed By: #### V [id number], A1C WTH eA, PTH, CMP ####[address] [place] [id number] [facility] Protein [Mass/Vol] Protein [Mass/volume ] in Serum or Plasma 6.4-8.9 [facility] Serum globulin measurement b y calculation (mass/volume)Ordered By: Nisa Rojas on 05-21-2024 Globulin (S) [Mass/Vol] 2.9 g/dL Normal [facility] Comment on above: Performed By: #### V [id number], A1C WTH eA, PTH, CMP ####[address] Serum or plasma albumin/glob ulin mass ratioOrdered By: Nisa Rojas on 05-21-2024 Albumin/Globulin [Mass ratio] 1.2 {ratio} [facility] Comment on above: Performed By: #### V [id number], A1C WTH eA, PTH, CMP ####[id number] [facility] Albumin/Globulin [Mass ratio] Serum or plasma albumin/globulin mass ratio [facility] Serum or plasma anion gap de terminationOrdered By: Nisa Rojas on 05-21-2024 Anion gap [Moles/Vol] 11.1 mmol/L Normal 6.0-15.0 [facility] Comment on above: Performed By: #### V [id number], A1C WTH eA, PTH, CMP ####[id number] [facility] Anion gap [Moles/Vol] Serum or plasma an ion gap determination 6.0-15.0 [facility] Sodium [Moles/volume] in Ser um or PlasmaOrdered By: Nisa Rojas on 05-21-2024 Sodium [Moles/Vol] 138 mmol/L Normal 136-145 [facility] Comment on above: Performed By: #### V [id number], A1C WTH eA, PTH, CMP ####[address] [place] [address] [facility] Sodium [Moles/Vol] Sodium [Moles/volume ] in Serum or Plasma 136-145 [facility] Urea nitrogen [Mass/volume] in Serum or PlasmaOrdered By: Nisa Rojas on 05-21-2024 Urea nitrogen [Mass/Vol] 21 mg/dL Normal 02-25 [facility] Comment on above: Performed By: #### V [id number], A1C WTH eA, PTH, CMP ####[address] [place] [address] [facility] Urea nitrogen [Mass/Vol] Urea nitrogen [Mass/volume] in Serum or Plasma - [facility] Vitamin D 25 Hydroxy Totalon 05-21-2024 Vitamin D 25 Hydroxy Total 18.5 ng/mL Low 30-100 [facility] Comment on above: Result Comment: CRISTAL MIN D STATUS 25([place])VITAMIN D RANGE (ng/mL) Deficient <20 Insufficient 20 to <30 Sufficient 30 to 100 Reference: Golden Aguirre, Rosibel SALVADOR, et al. Evaluation,treatment, and prevention of vitamin D deficiency; an Endocrine Society clinical practice guideline. JCEM. 2010; 96(7):1911-30.PERFORMED BY:[address] [place], [place] [phone] MEDICAL DIRECTORBRENTON THORNE M.D. Performed By: #### V [id number], A1C WTH eA, PTH, CMP ####[address] [place] [address] [facility] Vitamin D+Metabolites [Mass/ volume] in Serum or PlasmaOrdered By: Nisa Rojas on 05-21-2024 Vitamin D+Metabolites [Mass/Vol] 18.5 ng/mL Low 30-100 [facility] Comment on above: VITAMIN D STATUS 25( [place])VITAMIN D RANGE (ng/mL) Deficient <20 Insufficient 20 to <30Sufficient 30 to 100Reference: Golden Aguirre, Rosibel SALVADOR, et al. Evaluation,treatment, and prevention of vitamin D deficiency; an Endocrine Society clinical practice guideline. JCEM. 2010; 96(7):1911-30. Vitamin D+Metabolites [Mass/Vol] Vitamin D+Metabolites [Mass/volume] in Serum or Plasma Low 30-100 [facility] Comment on above: VITAMIN D STATUS 25( [place])VITAMIN D RANGE (ng/mL) Deficient <20 Insufficient 20 to <30Sufficient 30 to 100Reference: Golden Aguirre, Rosibel SALVADOR, et al. Evaluation,treatment, and prevention of vitamin D deficiency; an Endocrine Society clinical practice guideline. JCEM. 2010; 96(7):1911-. CT cervical spine wo conon 1 CT cervical spine wo con Normal [facility] XR knee RT 4V*on 05-15-2024 XR knee RT 4V* Normal [facility] XR lumbar spine 2-3V*on 05-04 XR lumbar spine 2-3V* Normal [facility] ECG 12 lead ECGon 05-04-2024 ECG 12 lead ECG Normal [facility] Laboratory - Microbiology an d Antimicrobial susceptibilityon 04-27-2024 SARS-CoV-2 (COVID-19) RNA BOYD+probe Ql (Unsp spec) Negative [facility] No Panel Informationon 04-27 FLU A Negative [facility] FLU B Negative [facility] ECG 12 lead ECGon 04-17-2024 ECG 12 lead ECG Normal [facility] XR knee RT 2Von 04-17-2024 XR knee RT 2V Normal [facility] Alanine aminotransferase [En zymatic activity/volume] in Serum or PlasmaOrdered By: Donato Trevino on 04-16-2024 ALT [Catalytic activity/Vol] 22 U/L Normal [facility] Comment on above: Performed By: #### C BC, BMP, HEPATIC, CRP, ESR ####[facility] [id number] [place] [id number] [facility] ALT [Catalytic activity/Vol] Alanine aminotransferase [Enzymatic activity/volume] in Serum or Plasma 7-52 [facility] Albumin [Mass/volume] in Ser um or Plasma by Bromocresol green (BCG) dye binding methoOrdered By: Donato Trevino on 04-16-2024 Albumin BCG dye [Mass/Vol] 3.8 g/dL 3.5-5.7 [facility] Albumin BCG dye [Mass/Vol] Albumin [Mass/volume] in Serum or Plasma by Bromocresol green (BCG) dye binding metho 3.5-5.7 [facility] Alkaline phosphatase [Enzyma tic activity/volume] in Serum or PlasmaOrdered By: Donato Trevino on 04-16-2024 ALP [Catalytic activity/Vol] 135 U/L [address] Comment on above: Performed By: #### C BC, BMP, HEPATIC, CRP, ESR ####[address] ALP [Catalytic activity/Vol] Alkaline phosphatase [Enzymatic activity/volume] in Serum or Plasma [address] Aspartate aminotransferase [ Enzymatic activity/volume] in Serum or PlasmaOrdered By: Donato Trevino on 04-16-2024 AST [Catalytic activity/Vol] 14 U/L Normal [facility] Comment on above: Performed By: #### C BC, BMP, HEPATIC, CRP, ESR ####[address] AST [Catalytic activity/Vol] Aspartate aminotransferase [Enzymatic activity/volume] in Serum or Plasma [facility] Automated basophil %Ordered By: Donato Trevino on 04-16-2024 Basophils/100 WBC (Bld) 1.2 % Normal . [facility] Comment on above: Performed By: #### C BC, BMP, HEPATIC, CRP, ESR ####[address] Automated basophil countOrde red By: Donato Trevino on 04-16-2024 Basophils (Bld) [#/Vol] 0.1 10*3/uL Normal 0.0-0.2 [facility] Comment on above: Performed By: #### C BC, BMP, HEPATIC, CRP, ESR ####[address] Automated blood monocyte cou ntOrdered By: Donato Uriel on 04-16-2024 Monocytes (Bld) [#/Vol] 0.6 10*3/uL Normal 0.0-0.8 [facility] Comment on above: Performed By: #### C BC, BMP, HEPATIC, CRP, ESR ####[address] Automated eosinophil %Ordere d By: Donato Uriel on 04-16-2024 Eosinophils/100 WBC (Bld) 2.7 % Normal . [facility] Comment on above: Performed By: #### C BC, BMP, HEPATIC, CRP, ESR ####[address] Automated eosinophil countOr dered By: Donatozuly Trevino on 04-16-2024 Eosinophils (Bld) [#/Vol] 0.2 10*3/uL Normal 0.0-0.45 [facility] Comment on above: Performed By: #### C BC, BMP, HEPATIC, CRP, ESR ####[address] Automated monocyte %Ordered By: Donatozuly Trevino on 04-16-2024 Monocytes/100 WBC (Bld) 8.5 % Normal . [facility] Comment on above: Performed By: #### C BC, BMP, HEPATIC, CRP, ESR ####[address] Automated neutrophil %Ordere d By: Donatozuly Trevino on 04-16-2024 Neutrophils/100 WBC (Bld) 66.4 % Normal . [facility] Comment on above: Performed By: #### C BC, BMP, HEPATIC, CRP, ESR ####[address] Basic Metabolic Panelon 04-04 Creatinine Clr Calc Pharmacy 125.66 Normal [facility] Comment on above: Performed By: #### C BC, BMP, HEPATIC, CRP, ESR ####[facility] [id number] [facility] GFR/1.73 sq M.predicted MDRD (S/P/Bld) [Vol rate/Area] mL/min/{1.73_m2} Normal [facility] Comment on above: Performed By: #### C BC, BMP, HEPATIC, CRP, ESR ####[address] [place] [id number] [facility] Basophils Auto (Bld) [#/Vol] Ordered By: Donato Trevino on 04-16-2024 Basophils (Bld) [#/Vol] Automated basophil count 0.0-0.2 [facility] Basophils/100 WBC Auto (Bld) Ordered By: Donato Trevino on 04-16-2024 Basophils/100 WBC (Bld) Automated basophil % . [facility] Bilirubin.direct [Mass/volum e] in Serum or PlasmaOrdered By: Donato Trevino on 04-16-2024 Bilirubin.direct [Mass/Vol] 0.00 mg/dL Low 0.03-0.18 [facility] Comment on above: If the DBIL is less than 0.1, IBIL is not able to becalculated. Bilirubin.direct [Mass/Vol] Bilirubin.direct [Mass/volume] in Serum or Plasma Low 0.03-0.18 [facility] Comment on above: If the DBIL is less than 0.1, IBIL is not able to becalculated. Bilirubin.total [Mass/volume ] in Serum or PlasmaOrdered By: Donato Trevino on 04-16-2024 Bilirubin [Mass/Vol] 0.4 mg/dL Normal 0.3-1.0 [facility] Comment on above: Performed By: #### C BC, BMP, HEPATIC, CRP, ESR ####[facility] [place] [id number] [facility] Bilirubin [Mass/Vol] Bilirubin.total [Mass/volume] in Serum or Plasma 0.3-1.0 [facility] C reactive protein [Mass/vol ume] in Serum or PlasmaOrdered By: Donato Trevino on 04-16-2024 CRP [Mass/Vol] 0.8 mg/dL High 0.0-0.5 [facility] CRP [Mass/Vol] C reactive protein [Mass/volume] in Serum or Plasma High 0.0-0.5 [facility] C-Reactive Proteinon 024 C-Reactive Protein 0.8 mg/dL High 0.0-0.5 [facility] Comment on above: Result Comment: PERF ORMED BY:[address] [place], [place] [id number] MEDICAL DIRECTORBRENTON THORNE M.D. Performed By: #### C BC, BMP, HEPATIC, CRP, ESR ####[address] [place] [address] [facility] [address] angio neckon 04-16-2024 CT angio neck Normal [facility] CT head/brain wo conon 04-16 CT head/brain wo con Normal [facility] Calcium [Mass/volume] in Ser um or PlasmaOrdered By: Donato Trevino on 04-16-2024 Calcium [Mass/Vol] 8.5 mg/dL Low 8.6-10.3 [facility] Comment on above: Performed By: #### C BC, BMP, HEPATIC, CRP, ESR ####[address] [address] [facility] Calcium [Mass/Vol] Calcium [Mass/volume ] in Serum or Plasma Low 8.6-10.3 [facility] Carbon dioxide, total [Moles /volume] in Serum or PlasmaOrdered By: Donato Trevino on 04-16-2024 CO2 [Moles/Vol] 21.0 mmol/L Normal 21.0-31.0 [facility] Comment on above: Performed By: #### C BC, BMP, HEPATIC, CRP, ESR ####[address] [address] [facility] CO2 [Moles/Vol] Carbon dioxide, tota l [Moles/volume] in Serum or Plasma 21.0-31.0 [facility] Chloride [Moles/volume] in S miguel or PlasmaOrdered By: Donato Trevino on 04-16-2024 Chloride [Moles/Vol] 106 mmol/L Normal 98-107 [facility] Comment on above: Performed By: #### C BC, BMP, HEPATIC, CRP, ESR ####[address] Chloride [Moles/Vol] Chloride [Moles/vol ume] in Serum or Plasma 98-107 [facility] Complete Blood Count Auto Di ffon 04-16-2024 Mean Corpuscular HGB Conc 34.8 g/dL Normal 32.5-35.6 [facility] Comment on above: Performed By: #### C BC, BMP, HEPATIC, CRP, ESR ####[address] Monocytes/100 WBC (Bld) 18.54 % Normal 0.00-20.00 [facility] Comment on above: Performed By: #### C BC, BMP, HEPATIC, CRP, ESR ####[address] NRBC% 0.1 /100{WBC} Normal 0-0.5 [facility] Comment on above: Performed By: #### C BC, BMP, HEPATIC, CRP, ESR ####[address] Creatinine [Mass/volume] in Serum or PlasmaOrdered By: Donato Trevino on 04-16-2024 Creatinine [Mass/Vol] 0.96 mg/dL Normal 0.70-1.30 [facility] Comment on above: Performed By: #### C BC, BMP, HEPATIC, CRP, ESR ####[address] Creatinine [Mass/Vol] Creatinine [Mass/v olume] in Serum or Plasma 0.70-1.30 [facility] ECG 12 lead ECGon 04-16-2024 ECG 12 lead ECG Normal [facility] Eosinophils Auto (Bld) [#/Vo l]Ordered By: Donato Trevino on 04-16-2024 Eosinophils (Bld) [#/Vol] Automated eosinophil count 0.0-0.45 [facility] Eosinophils/100 WBC Auto (Bl d)Ordered By: Donato Trevino on 04-16-2024 Eosinophils/100 WBC (Bld) Automated eosinophil % . [facility] Erythrocyte Sedimentation Ra jose 04-16-2024 ESR (Bld) [Velocity] 25 mm/h High 0-19 [facility] Comment on above: Result Comment: PERF ORMED BY:[address] [place], [place] [phone] MEDICAL DIRECTORBRENTON THORNE M.D. Performed By: #### C BC, BMP, HEPATIC, CRP, ESR ####[address] [address] [facility] Erythrocyte distribution wid th Auto (RBC) [Ratio]Ordered By: Donato Trevino on 04-16-2024 Erythrocyte distribution width (RBC) [Ratio] Erythrocyte distribution width [Ratio] by Automated count 12.0-14.8 [facility] Erythrocyte distribution wid th [Ratio] by Automated countOrdered By: Donato Trevino on 04-16-2024 Erythrocyte distribution width (RBC) [Ratio] 13.7 % Normal 12.0-14.8 [facility] Comment on above: Performed By: #### C BC, BMP, HEPATIC, CRP, ESR ####[address] [address] [facility] Erythrocyte sedimentation ra te by Photometric methodOrdered By: Donato Trevino on 04-16-2024 ESR Photometric method (Bld) [Velocity] 25 mm/hr High 0-19 [facility] ESR Photometric method (Bld) [Velocity] Erythrocyte sedimentation rate by Photometric method High 0-19 [facility] Erythrocytes [#/volume] in B lood by Automated countOrdered By: Donato Trevino on 04-16-2024 RBC (Bld) [#/Vol] 5.19 10*6/uL Normal 3.90-5.60 [facility] Comment on above: Performed By: #### C BC, BMP, HEPATIC, CRP, ESR ####[facility] [place] [address] [facility] Globulin Calc (S) [Mass/Vol] Ordered By: Donato Trevino on 04-16-2024 Globulin (S) [Mass/Vol] Serum globulin measurement by calculation (mass/volume) [facility] Glucose [Mass/volume] in Ser um or PlasmaOrdered By: Donato Trevino on 04-16-2024 Glucose [Mass/Vol] 312 mg/dL High 70-100 [facility] Comment on above: ADA recommended refe rence rangeRandom Glucose Reference Range is dependent on time and content of last meal. Glucose of more than 200 mg/dL in a nonstressed, ambulatory subject supports the diagnosis of Diabetes Mellitus. Result Comment: [place] Glucose Reference Range is dependent on time and content of last meal. Glucose of more than 200 mg/dL in a nonstressed, ambulatory subject supports the diagnosis of Diabetes Mellitus. ADA recommended reference range Performed By: #### C BC, BMP, HEPATIC, CRP, ESR ####[place] [id number] [place] [id number] [facility] Glucose [Mass/Vol] Glucose [Mass/volume ] in Serum or Plasma High 70-100 [facility] Comment on above: ADA recommended refe rence rangeRandom Glucose Reference Range is dependent on time and content of last meal. Glucose of more than 200 mg/dL in a nonstressed, ambulatory subject supports the diagnosis of Diabetes Mellitus. Hematocrit Auto (Bld) [Volum e fraction]Ordered By: Donato Trevino on 04-16-2024 Hematocrit (Bld) [Volume fraction] Hematocrit [Volume Fraction] of Blood by Automated count 38.8-50.0 [facility] Hematocrit [Volume Fraction] of Blood by Automated countOrdered By: Donato Trevino on 04-16-2024 Hematocrit (Bld) [Volume fraction] 44.5 % Normal 38.8-50.0 [facility] Comment on above: Performed By: #### C BC, BMP, HEPATIC, CRP, ESR ####[place] [address] [place] [id number] [facility] Hemoglobin [Mass/volume] in BloodOrdered By: Donato Trevino on 04-16-2024 Hemoglobin (Bld) [Mass/Vol] 15.5 g/dL Normal 13.0-17.0 [facility] Comment on above: Performed By: #### C BC, BMP, HEPATIC, CRP, ESR ####[place] [id number] Hemoglobin (Bld) [Mass/Vol] Hemoglobin [Mass/volume] in Blood 13.0-17.0 [facility] Hepatic Panelon 04-16-2024 Albumin [Mass/Vol] 3.8 g/dL Normal 3.5-5.7 [facility] Comment on above: Performed By: #### C BC, BMP, HEPATIC, CRP, ESR ####[place] [id number] Bilirubin,Indirect 0.4 mg/dL Normal [facility] Comment on above: Performed By: #### C BC, BMP, HEPATIC, CRP, ESR ####[address] Bilirubin.indirect [Mass/Vol] 0.00 mg/dL Low 0.03-0.18 [facility] Comment on above: Result Comment: If t he DBIL is less than 0.1, IBIL is not able to be calculated. Performed By: #### C BC, BMP, HEPATIC, CRP, ESR ####[address] Leukocytes [#/volume] correc roe for nucleated erythrocytes in Blood by Automated counOrdered By: Donato Trevino on 04-16-2024 WBC corrected for nucl RBC Auto (Bld) [#/Vol] 7.6 10*3/uL 4.1-10.5 [facility] WBC corrected for nucl RBC Auto (Bld) [#/Vol] Leukocytes [#/volume] corrected for nucleated erythrocytes in Blood by Automated coun 4.-. [facility] Leukocytes [#/volume] in Blo od by Automated countOrdered By: Donato Trevino on 04-16-2024 WBC (Bld) [#/Vol] 7.6 10*3/uL Normal 4.1-10.5 [facility] Comment on above: Performed By: #### C BC, BMP, HEPATIC, CRP, ESR ####[place] [address] [place] [id number] [facility] Lymphocytes Auto (Bld) [#/Vo l]Ordered By: Donato Trevino on 04-16-2024 Lymphocytes (Bld) [#/Vol] Lymphocytes [#/volume] in Blood by Automated count 1.00-4.8 [facility] Lymphocytes [#/volume] in Bl ood by Automated countOrdered By: Donato Trevino on 04-16-2024 Lymphocytes (Bld) [#/Vol] 1.6 10*3/uL Normal 1.00-4.8 [facility] Comment on above: Performed By: #### C BC, BMP, HEPATIC, CRP, ESR ####[place] [id number] [facility] Lymphocytes/100 WBC Auto (Bl d)Ordered By: Donato Trevino on 04-16-2024 Lymphocytes/100 WBC (Bld) Lymphocytes/100 leukocytes in Blood by Automated count . [facility] Lymphocytes/100 leukocytes i n Blood by Automated countOrdered By: Donato Trevino on 04-16-2024 Lymphocytes/100 WBC (Bld) 21.2 % Normal . [facility] Comment on above: Performed By: #### C BC, BMP, HEPATIC, CRP, ESR ####[place] [id number] [facility] MCH Auto (RBC) [Entitic mass ]Ordered By: Donato Trevino on 04-16-2024 MCH (RBC) [Entitic mass] MCH [Entitic mass] by Automated count 27.5-35.2 [facility] MCH [Entitic mass] by Automa roe countOrdered By: Donato Trevino on 04-16-2024 MCH (RBC) [Entitic mass] 29.9 pg Normal 27.5-35.2 [facility] Comment on above: Performed By: #### C BC, BMP, HEPATIC, CRP, ESR ####[address] [place] [address] [facility] MCHC Auto (RBC) [Mass/Vol]Or dered By: Donato Trevino on 04-16-2024 MCHC (RBC) [Mass/Vol] 34.8 g/dL 32.5-35.6 [facility] MCHC (RBC) [Mass/Vol] MCHC [Mass/volume] by Automated count 32.5-35.6 [facility] MCV Auto (RBC) [Entitic vol] Ordered By: Donato Trevino on 04-16-2024 MCV (RBC) [Entitic vol] MCV [Entitic volume] by Automated count 83.5-101 [facility] MCV [Entitic volume] by Auto mated countOrdered By: Donato Trevino on 04-16-2024 MCV (RBC) [Entitic vol] 85.9 fL Normal 83.5-101 [facility] Comment on above: Performed By: #### C BC, BMP, HEPATIC, CRP, ESR ####[place] [id number] [place] [id number] [facility] Monocyte distribution width [Entitic volume] in Blood by AutomatedOrdered By: Donato Trevino on 04-16-2024 Monocyte distribution width Auto (Bld) [Entitic vol] 18.54 % 0.00-20.00 [facility] Monocyte distribution width Auto (Bld) [Entitic vol] Monocyte distribution width [Entitic volume] in Blood by Automated 0.00-20.00 [facility] Monocytes Auto (Bld) [#/Vol] Ordered By: Donato Trevino on 04-16-2024 Monocytes (Bld) [#/Vol] Automated blood monocyte count 0.0-0.8 [facility] Monocytes/100 WBC Auto (Bld) Ordered By: Donato Trevino on 04-16-2024 Monocytes/100 WBC (Bld) Automated monocyte % . [facility] Neutrophils Auto (Bld) [#/Vo l]Ordered By: Donato Trevino on 04-16-2024 Neutrophils (Bld) [#/Vol] Neutrophils [#/volume] in Blood by Automated count 1.8-7.7 [facility] Neutrophils [#/volume] in Bl ood by Automated countOrdered By: Donato Trevino on 04-16-2024 Neutrophils (Bld) [#/Vol] 5.0 10*3/uL Normal 1.8-7.7 [facility] Comment on above: Performed By: #### C BC, BMP, HEPATIC, CRP, ESR ####[facility] [place] [address] [facility] Neutrophils/100 WBC Auto (Bl d)Ordered By: Donato Trevino on 04-16-2024 Neutrophils/100 WBC (Bld) Automated neutrophil % . [facility] No Panel InformationOrdered By: Donato Trevino on 04-16-2024 Estimated GFR (CKD-EPI) > 60.0 mL/Min [facility] Creatinine Clearance (Chem 125.66 [facility] Nucleated erythrocytes [Pres ence] in Blood by Automated countOrdered By: Donato Trevino on 04-16-2024 Nucleated RBC Auto Ql (Bld) 0.1 /100{WBC} 0-0.5 [facility] Nucleated RBC Auto Ql (Bld) Nucleated erythrocytes [Presence] in Blood by Automated count 0-0.5 [facility] Platelet mean volume Auto (B ld) [Entitic vol]Ordered By: Donato Trevino on 04-16-2024 Platelet mean volume (Bld) [Entitic vol] Platelet mean volume [Entitic volume] in Blood by Automated count 6.6-10.1 [facility] Platelet mean volume [Entiti c volume] in Blood by Automated countOrdered By: Donato Trevino on 04-16-2024 Platelet mean volume (Bld) [Entitic vol] 9.3 fL Normal 6.6-10.1 [facility] Comment on above: Performed By: #### C BC, BMP, HEPATIC, CRP, ESR ####[facility] [place] [address] [facility] Platelets Auto (Bld) [#/Vol] Ordered By: Donato Trevino on 04-16-2024 Platelets (Bld) [#/Vol] Platelets [#/volume] in Blood by Automated count 150-450 [facility] Platelets [#/volume] in Bloo d by Automated countOrdered By: Donato Trevino on 04-16-2024 Platelets (Bld) [#/Vol] 223 10*3/uL Normal 150-450 [facility] Comment on above: Performed By: #### C BC, BMP, HEPATIC, CRP, ESR ####[address] Potassium [Moles/volume] in Serum or PlasmaOrdered By: Donato Trevino on 04-16-2024 Potassium [Moles/Vol] 4.3 mmol/L Normal 3.5-5.1 [facility] Comment on above: Performed By: #### C BC, BMP, HEPATIC, CRP, ESR ####[address] Potassium [Moles/Vol] Potassium [Moles/v olume] in Serum or Plasma 3.5-5.1 [facility] Protein [Mass/volume] in Ser um or PlasmaOrdered By: Donato Trevino on 04-16-2024 Protein [Mass/Vol] 6.7 g/dL Normal 6.4-8.9 [facility] Comment on above: Performed By: #### C BC, BMP, HEPATIC, CRP, ESR ####[address] Protein [Mass/Vol] Protein [Mass/volume ] in Serum or Plasma 6.4-8.9 [facility] RBC Auto (Bld) [#/Vol]Ordere d By: Donato Trevino on 04-16-2024 RBC (Bld) [#/Vol] Erythrocytes [#/volu me] in Blood by Automated count 3.90-5.60 [facility] Serum globulin measurement b y calculation (mass/volume)Ordered By: Donato Trveino on 04-16-2024 Globulin (S) [Mass/Vol] 2.9 g/dL Normal [facility] Comment on above: Performed By: #### C BC, BMP, HEPATIC, CRP, ESR ####[address] Serum or plasma albumin/glob ulin mass ratioOrdered By: Donato Trevino on 04-16-2024 Albumin/Globulin [Mass ratio] 1.3 {ratio} Normal [facility] Comment on above: Performed By: #### C BC, BMP, HEPATIC, CRP, ESR ####[place] [address] [place] [id number] [facility] Albumin/Globulin [Mass ratio] Serum or plasma albumin/globulin mass ratio [facility] Serum or plasma anion gap de terminationOrdered By: Donato Trevino on 04-16-2024 Anion gap [Moles/Vol] 11.3 mmol/L Normal 6.0-15.0 [facility] Comment on above: Performed By: #### C BC, BMP, HEPATIC, CRP, ESR ####[place] [id number] [facility] Anion gap [Moles/Vol] Serum or plasma an ion gap determination 6.0-15.0 [facility] Serum or plasma non-glucuron idated bilirubin measurement (mass/volume)Ordered By: Donato Trevino on 04-16-2024 Bilirubin.indirect [Mass/Vol] 0.4 mg/dL [facility] Bilirubin.indirect [Mass/Vol] Serum or plasma non-glucuronidated bilirubin measurement (mass/volume) [facility] Sodium [Moles/volume] in Ser um or PlasmaOrdered By: Donato Trevino on 04-16-2024 Sodium [Moles/Vol] 134 mmol/L Low 136-145 [facility] Comment on above: Performed By: #### C BC, BMP, HEPATIC, CRP, ESR ####[place] [address] [place] [id number] [facility] Sodium [Moles/Vol] Sodium [Moles/volume ] in Serum or Plasma Low 136-145 [facility] Urea nitrogen [Mass/volume] in Serum or PlasmaOrdered By: Donato Trevino on 04-16-2024 Urea nitrogen [Mass/Vol] 19 mg/dL Normal 7-25 [facility] Comment on above: Performed By: #### C BC, BMP, HEPATIC, CRP, ESR ####[place] [id number] [facility] Urea nitrogen [Mass/Vol] Urea nitrogen [Mass/volume] in Serum or Plasma 02-25 [facility] WBC Auto (Bld) [#/Vol]Ordere d By: Donato Trevino on 04-16-2024 WBC (Bld) [#/Vol] Leukocytes [#/volume ] in Blood by Automated count 4.1-10.5 [facility] ECG 12 lead ECGon 04-06-2024 ECG 12 lead ECG Normal [facility] Alanine aminotransferase [En zymatic activity/volume] in Serum or PlasmaOrdered By: Nestor Weeks on 03-17-2024 ALT [Catalytic activity/Vol] 18 U/L Normal [facility] Comment on above: Performed By: #### H EPATIC, BMP, CBC, LIPASE ####[address] Albumin [Mass/volume] in Ser um or Plasma by Bromocresol green (BCG) dye binding methoOrdered By: Nestor Weeks on 03-17-2024 Albumin BCG dye [Mass/Vol] 3.8 g/dL 3.5-5.7 [facility] Alkaline phosphatase [Enzyma tic activity/volume] in Serum or PlasmaOrdered By: Nestor Weeks on 03-17-2024 ALP [Catalytic activity/Vol] 139 U/L High 34-104 [facility] Comment on above: Performed By: #### H EPATIC, BMP, CBC, LIPASE ####[place] [id number] [facility] Aspartate aminotransferase [ Enzymatic activity/volume] in Serum or PlasmaOrdered By: Nestor Weeks on 03-17-2024 AST [Catalytic activity/Vol] 14 U/L Normal 13-39 [facility] Comment on above: Performed By: #### H EPATIC, BMP, CBC, LIPASE ####[place] [id number] [facility] Automated basophil %Ordered By: Nestor Weeks on 03-17-2024 Basophils/100 WBC (Bld) 0.6 % Normal . [facility] Comment on above: Performed By: #### H EPATIC, BMP, CBC, LIPASE ####[address] Automated basophil countOrde red By: Nestor Weeks on 03-17-2024 Basophils (Bld) [#/Vol] 0.1 10*3/uL Normal 0.0-0.2 [facility] Comment on above: Result Comment: PERF ORMED BY:[address] [place], [place] [id number] MEDICAL DIRECTORBRENTON THORNE M.D. Performed By: #### H EPATIC, BMP, CBC, LIPASE ####[address] Automated blood monocyte cou ntOrdered By: Nestor Weeks on 03-17-2024 Monocytes (Bld) [#/Vol] 0.5 10*3/uL Normal 0.0-0.8 [facility] Comment on above: Performed By: #### H EPATIC, BMP, CBC, LIPASE ####[address] Automated eosinophil %Ordere d By: Nestor Weeks on 03-17-2024 Eosinophils/100 WBC (Bld) 2.0 % Normal . [facility] Comment on above: Performed By: #### H EPATIC, BMP, CBC, LIPASE ####[address] Automated eosinophil countOr dered By: Nestor Weeks on 03-17-2024 Eosinophils (Bld) [#/Vol] 0.2 10*3/uL Normal 0.0-0.45 [facility] Comment on above: Performed By: #### H EPATIC, BMP, CBC, LIPASE ####[address] Automated monocyte %Ordered By: Nestor Weeks on 03-17-2024 Monocytes/100 WBC (Bld) 5.7 % Normal . [facility] Comment on above: Performed By: #### H EPATIC, BMP, CBC, LIPASE ####[place] [id number] Automated neutrophil %Ordere d By: Nestor Weeks on 03-17-2024 Neutrophils/100 WBC (Bld) 81.0 % Normal . [facility] Comment on above: Performed By: #### H EPATIC, BMP, CBC, LIPASE ####[place] [address] Basic Metabolic Panelon 03-04 Creatinine Clr Calc Pharmacy 132.35 Normal [facility] Comment on above: Performed By: #### H EPATIC, BMP, CBC, LIPASE ####[place] [id number] GFR/1.73 sq M.predicted MDRD (S/P/Bld) [Vol rate/Area] mL/min/{1.73_m2} Normal [facility] Comment on above: Performed By: #### H EPATIC, BMP, CBC, LIPASE ####[address] Bilirubin.direct [Mass/volum e] in Serum or PlasmaOrdered By: Nestor Weeks on 03-17-2024 Bilirubin.direct [Mass/Vol] 0.10 mg/dL 0.03-0.18 [facility] Bilirubin.total [Mass/volume ] in Serum or PlasmaOrdered By: Nestor Weeks on 03-17-2024 Bilirubin [Mass/Vol] 0.5 mg/dL Normal 0.3-1.0 [facility] Comment on above: Performed By: #### H EPATIC, BMP, CBC, LIPASE ####[address] Calcium [Mass/volume] in Ser um or PlasmaOrdered By: Nestor Weeks on 03-17-2024 Calcium [Mass/Vol] 8.9 mg/dL Normal 8.6-10.3 [facility] Comment on above: Performed By: #### H EPATIC, BMP, CBC, LIPASE ####[address] Carbon dioxide, total [Moles /volume] in Serum or PlasmaOrdered By: Nestor Weeks on 03-17-2024 CO2 [Moles/Vol] 24.3 mmol/L Normal 21.0-31.0 [facility] Comment on above: Performed By: #### H EPATIC, BMP, CBC, LIPASE ####[address] Chloride [Moles/volume] in S miguel or PlasmaOrdered By: Nestor Weeks on 03-17-2024 Chloride [Moles/Vol] 101 mmol/L Normal 98-107 [facility] Comment on above: Performed By: #### H EPATIC, BMP, CBC, LIPASE ####[address] Complete Blood Count Auto Di ffon 03-17-2024 Mean Corpuscular HGB Conc 34.6 g/dL Normal 32.5-35.6 [facility] Comment on above: Performed By: #### H EPATIC, BMP, CBC, LIPASE ####[address] Monocytes/100 WBC (Bld) 18.97 % Normal 0.00-20.00 [facility] Comment on above: Performed By: #### H EPATIC, BMP, CBC, LIPASE ####[address] NRBC% 0.2 /100{WBC} Normal 0-0.5 [facility] Comment on above: Performed By: #### H EPATIC, BMP, CBC, LIPASE ####[address] Creatinine [Mass/volume] in Serum or PlasmaOrdered By: Nestor Weeks on 03-17-2024 Creatinine [Mass/Vol] 0.90 mg/dL Normal 0.70-1.30 [facility] Comment on above: Performed By: #### H EPATIC, BMP, CBC, LIPASE ####[address] ECG 12 lead ECGon 03-17-2024 ECG 12 lead ECG Normal [facility] Erythrocyte distribution wid th [Ratio] by Automated countOrdered By: Nestor Weeks on 03-17-2024 Erythrocyte distribution width (RBC) [Ratio] 13.6 % Normal 12.0-14.8 [facility] Comment on above: Performed By: #### H EPATIC, BMP, CBC, LIPASE ####[facility] [address] [place] [address] [facility] Erythrocytes [#/volume] in B lood by Automated countOrdered By: Nestor Weeks on 03-17-2024 RBC (Bld) [#/Vol] 5.28 10*6/uL Normal 3.90-5.60 [facility] Comment on above: Performed By: #### H EPATIC, BMP, CBC, LIPASE ####[facility] [place] [address] [facility] Glucose [Mass/volume] in Ser um or PlasmaOrdered By: Nestor Weeks on 03-17-2024 Glucose [Mass/Vol] 412 mg/dL High 70-100 [facility] Comment on above: ADA recommended refe rence rangeRandom Glucose Reference Range is dependent on time and content of last meal. Glucose of more than 200 mg/dL in a nonstressed, ambulatory subject supports the diagnosis of Diabetes Mellitus. Result Comment: [place] om Glucose Reference Range is dependent on time and content of last meal. Glucose of more than 200 mg/dL in a nonstressed, ambulatory subject supports the diagnosis of Diabetes Mellitus. ADA recommended reference range Performed By: #### H EPATIC, BMP, CBC, LIPASE ####[facility] [place] [address] [facility] Hematocrit [Volume Fraction] of Blood by Automated countOrdered By: Nestor Weeks on 03-17-2024 Hematocrit (Bld) [Volume fraction] 45.7 % Normal 38.8-50.0 [facility] Comment on above: Performed By: #### H EPATIC, BMP, CBC, LIPASE ####[facility] [place] [address] [place] Hemoglobin [Mass/volume] in BloodOrdered By: Nestor Weeks on 03-17-2024 Hemoglobin (Bld) [Mass/Vol] 15.8 g/dL Normal 13.0-17.0 [facility] Comment on above: Performed By: #### H EPATIC, BMP, CBC, LIPASE ####[place] [id number] Hepatic Panelon 03-17-2024 Albumin [Mass/Vol] 3.8 g/dL Normal 3.5-5.7 [facility] Comment on above: Performed By: #### H EPATIC, BMP, CBC, LIPASE ####[address] Bilirubin,Indirect 0.4 mg/dL Normal [facility] Comment on above: Performed By: #### H EPATIC, BMP, CBC, LIPASE ####[address] Bilirubin.indirect [Mass/Vol] 0.10 mg/dL Normal 0.03-0.18 [facility] Comment on above: Performed By: #### H EPATIC, BMP, CBC, LIPASE ####[address] Leukocytes [#/volume] correc roe for nucleated erythrocytes in Blood by Automated counOrdered By: Nestor Weeks on 03-17-2024 WBC corrected for nucl RBC Auto (Bld) [#/Vol] 8.7 10*3/uL 4.1-10.5 [facility] Leukocytes [#/volume] in Blo od by Automated countOrdered By: Nestor Weeks on 03-17-2024 WBC (Bld) [#/Vol] 8.7 10*3/uL Normal 4.1-10.5 [facility] Comment on above: Performed By: #### H EPATIC, BMP, CBC, LIPASE ####[address] Lipase [Enzymatic activity/v olume] in Serum or PlasmaOrdered By: Nestor Weeks on 03-17-2024 Lipase [Catalytic activity/Vol] 9.0 U/L Low 11.0-82.0 [facility] Comment on above: Result Comment: PERF ORMED BY:[address] [place], [place] [id number] MEDICAL DIRECTORBRENTON THORNE M.D. Performed By: #### H EPATIC, BMP, CBC, LIPASE ####[address] Lymphocytes [#/volume] in Bl ood by Automated countOrdered By: Nestor Weeks on 03-17-2024 Lymphocytes (Bld) [#/Vol] 0.9 10*3/uL Low 1.00-4.8 [facility] Comment on above: Performed By: #### H EPATIC, BMP, CBC, LIPASE ####[address] Lymphocytes/100 leukocytes i n Blood by Automated countOrdered By: Nestor Weeks on 03-17-2024 Lymphocytes/100 WBC (Bld) 10.7 % Normal . [facility] Comment on above: Performed By: #### H EPATIC, BMP, CBC, LIPASE ####[address] MCH [Entitic mass] by Automa roe countOrdered By: Nestor Weeks on 03-17-2024 MCH (RBC) [Entitic mass] 29.9 pg Normal 27.5-35.2 [facility] Comment on above: Performed By: #### H EPATIC, BMP, CBC, LIPASE ####[address] MCHC Auto (RBC) [Mass/Vol]Or dered By: Nestor Weeks on 03-17-2024 MCHC (RBC) [Mass/Vol] 34.6 g/dL 32.5-35.6 [facility] MCV [Entitic volume] by Auto mated countOrdered By: Nestor Weeks on 03-17-2024 MCV (RBC) [Entitic vol] 86.5 fL Normal 83.5-101 [facility] Comment on above: Performed By: #### H EPATIC, BMP, CBC, LIPASE ####[facility] [id number] Monocyte distribution width [Entitic volume] in Blood by AutomatedOrdered By: Nestor Weeks on 03-17-2024 Monocyte distribution width Auto (Bld) [Entitic vol] 18.97 % 0.00-20.00 [facility] Neutrophils [#/volume] in Bl ood by Automated countOrdered By: Nestor Weeks on 03-17-2024 Neutrophils (Bld) [#/Vol] 7.1 10*3/uL Normal 1.8-7.7 [facility] Comment on above: Performed By: #### H EPATIC, BMP, CBC, LIPASE ####[place] [id number] No Panel InformationOrdered By: Nestor Weeks on 03-17-2024 Estimated GFR (CKD-EPI) > 60.0 mL/Min [facility] Creatinine Clearance (Chem 132.35 [facility] Nucleated erythrocytes [Pres ence] in Blood by Automated countOrdered By: Nestor Weeks on 03-17-2024 Nucleated RBC Auto Ql (Bld) 0.2 /100{WBC} 0-0.5 [facility] Platelet mean volume [Entiti c volume] in Blood by Automated countOrdered By: Nestor Weeks on 03-17-2024 Platelet mean volume (Bld) [Entitic vol] 8.6 fL Normal 6.6-10.1 [facility] Comment on above: Performed By: #### H EPATIC, BMP, CBC, LIPASE ####[address] Platelets [#/volume] in Bloo d by Automated countOrdered By: Nestor Weeks on 03-17-2024 Platelets (Bld) [#/Vol] 286 10*3/uL Normal 150-450 [facility] Comment on above: Performed By: #### H EPATIC, BMP, CBC, LIPASE ####[address] Potassium [Moles/volume] in Serum or PlasmaOrdered By: Nestor Weeks on 03-17-2024 Potassium [Moles/Vol] 4.3 mmol/L Normal 3.5-5.1 [facility] [facility] Comment on above: Performed By: #### H EPATIC, BMP, CBC, LIPASE ####[address] Protein [Mass/volume] in Ser um or PlasmaOrdered By: Nestor Weeks on 03-17-2024 Protein [Mass/Vol] 7.3 g/dL Normal 6.4-8.9 [facility] Comment on above: Performed By: #### H EPATIC, BMP, CBC, LIPASE ####[address] Serum globulin measurement b y calculation (mass/volume)Ordered By: Nestor Weeks on 03-17-2024 Globulin (S) [Mass/Vol] 3.5 g/dL [facility] Comment on above: Performed By: #### H EPATIC, BMP, CBC, LIPASE ####[address] Serum or plasma albumin/glob ulin mass ratioOrdered By: Nestor Weeks on 03-17-2024 Albumin/Globulin [Mass ratio] 1.1 {ratio} [facility] Comment on above: Performed By: #### H EPATIC, BMP, CBC, LIPASE ####[address] Serum or plasma anion gap de terminationOrdered By: Nestor Weeks on 03-17-2024 Anion gap [Moles/Vol] 12.0 mmol/L Normal 6.0-15.0 [facility] Comment on above: Performed By: #### H EPATIC, BMP, CBC, LIPASE ####[address] Serum or plasma non-glucuron idated bilirubin measurement (mass/volume)Ordered By: Nestor Weeks on 03-17-2024 Bilirubin.indirect [Mass/Vol] 0.4 mg/dL [facility] Sodium [Moles/volume] in Ser um or PlasmaOrdered By: Nestor Weeks on 03-17-2024 Sodium [Moles/Vol] 133 mmol/L Low 136-145 [facility] Comment on above: Performed By: #### H EPATIC, BMP, CBC, LIPASE ####[address] Urea nitrogen [Mass/volume] in Serum or PlasmaOrdered By: Nestor Weeks on 03-17-2024 Urea nitrogen [Mass/Vol] 14 mg/dL Normal 02-25 [facility] Comment on above: Performed By: #### H EPATIC, BMP, CBC, LIPASE ####[address] head/brain wo conon 03-11 CT head/brain wo con Normal [facility] A1C with Estimated Average G luon 02-25-2024 Glucose [Mass/Vol] 312 mg/dL Normal [facility] Comment on above: Result Comment: PERF ORMED BY:[address] [place], [place] [phone] MEDICAL DIRECTORBRENTON THORNE M.D. Performed By: #### A 1C WTH eA, PTH, CMP, HEPATIC, [id number], CBC ####[place] [id number] [facility]#### IGG ####[facility] , Alanine aminotransferase [En zymatic activity/volume] in Serum or PlasmaOrdered By: Adelita Gutierres on 02-25-2024 ALT [Catalytic activity/Vol] 26 U/L Normal [facility] Comment on above: Performed By: #### A 1C WTH eA, PTH, CMP, HEPATIC, [id number], CBC ####[place] [id number] [facility]#### IGG ####[facility] , Albumin [Mass/volume] in Ser um or Plasma by Bromocresol green (BCG) dye binding methoOrdered By: Adelita Gutierres on 02-25-2024 Albumin BCG dye [Mass/Vol] 4.2 g/dL 3.5-5.7 [facility] Alkaline phosphatase [Enzyma tic activity/volume] in Serum or PlasmaOrdered By: Adelita Gutierres on 02-25-2024 ALP [Catalytic activity/Vol] 176 U/L High 34-104 [facility] Comment on above: Performed By: #### A 1C WTH eA, PTH, CMP, HEPATIC, [id number], CBC ####[facility] [place] [id number] [facility]#### IGG ####[facility] , Aspartate aminotransferase [ Enzymatic activity/volume] in Serum or PlasmaOrdered By: Adelita Gutierres on 02-25-2024 AST [Catalytic activity/Vol] 16 U/L Normal 13-39 [facility] Comment on above: Performed By: #### A 1C WTH eA, PTH, CMP, HEPATIC, [id number], CBC ####[place] [id number] [facility]#### IGG ####[facility] , Automated basophil %Ordered By: Adelita Gutierres on 02-25-2024 Basophils/100 WBC (Bld) 0.7 % Normal . [facility] Comment on above: Performed By: #### A 1C WTH eA, PTH, CMP, HEPATIC, [id number], CBC ####[place] [address] [place] [id number] [facility]#### IGG ####[facility] , Automated basophil countOrde red By: Adelita Gutierres on 02-25-2024 Basophils (Bld) [#/Vol] 0.1 10*3/uL Normal 0.0-0.2 [facility] Comment on above: Result Comment: PERF ORMED BY:[address] [place], [place] [phone] MEDICAL DIRECTORBRENTON THORNE M.D. Performed By: #### A 1C WTH eA, PTH, CMP, HEPATIC, [id number], CBC ####[address]#### IGG ####[facility] , Automated blood monocyte cou ntOrdered By: Adelita Gutierres on 02-25-2024 Monocytes (Bld) [#/Vol] 0.5 10*3/uL Normal 0.0-0.8 [facility] Comment on above: Performed By: #### A 1C WTH eA, PTH, CMP, HEPATIC, [id number], CBC ####[address]#### IGG ####[facility] , Automated eosinophil %Ordere d By: Adelita Gutierres on 02-25-2024 Eosinophils/100 WBC (Bld) 1.7 % Normal . [facility] Comment on above: Performed By: #### A 1C WTH eA, PTH, CMP, HEPATIC, [id number], CBC ####[address]#### IGG ####[facility] , Automated eosinophil countOr dered By: Adelita Gutierres on 02-25-2024 Eosinophils (Bld) [#/Vol] 0.2 10*3/uL Normal 0.0-0.45 [facility] Comment on above: Performed By: #### A 1C WTH eA, PTH, CMP, HEPATIC, [id number], CBC ####[place] [address] [place]#### IGG ####[facility] , Automated monocyte %Ordered By: Adelita Gutierres on 02-25-2024 Monocytes/100 WBC (Bld) 5.3 % Normal . [facility] Comment on above: Performed By: #### A 1C WTH eA, PTH, CMP, HEPATIC, [id number], CBC ####[place] [address] [place]#### IGG ####[facility] , Automated neutrophil %Ordere d By: Adelita Gutierres on 02-25-2024 Neutrophils/100 WBC (Bld) 79.4 % Normal . [facility] Comment on above: Performed By: #### A 1C WTH eA, PTH, CMP, HEPATIC, [id number], CBC ####[place] [address]#### IGG ####[facility] , Bilirubin.direct [Mass/volum e] in Serum or PlasmaOrdered By: Adelita Gutierres on 02-25-2024 Bilirubin.direct [Mass/Vol] 0.10 mg/dL 0.03-0.18 [facility] Bilirubin.total [Mass/volume ] in Serum or PlasmaOrdered By: Adelita Gutierres on 02-25-2024 Bilirubin [Mass/Vol] 0.8 mg/dL Normal 0.3-1.0 [facility] Comment on above: Performed By: #### A 1C WTH eA, PTH, CMP, HEPATIC, [id number], CBC ####[address]#### IGG ####[facility] , Calcium [Mass/volume] in Ser um or PlasmaOrdered By: Adelita Gutierres on 02-25-2024 Calcium [Mass/Vol] 9.7 mg/dL Normal 8.6-10.3 [facility] Comment on above: Performed By: #### A 1C WTH eA, PTH, CMP, HEPATIC, [id number], CBC ####[place] [id number] [place]#### IGG ####[facility] , Carbon dioxide, total [Moles /volume] in Serum or PlasmaOrdered By: Adelita Gutierres on 02-25-2024 CO2 [Moles/Vol] 24.8 mmol/L Normal 21.0-31.0 [facility] Comment on above: Performed By: #### A 1C WTH eA, PTH, CMP, HEPATIC, [id number], CBC ####[place] [address]#### IGG ####[facility] , Chloride [Moles/volume] in S miguel or PlasmaOrdered By: Adelita Gutierres on 02-25-2024 Chloride [Moles/Vol] 100 mmol/L Normal 98-107 [facility] Comment on above: Performed By: #### A 1C WTH eA, PTH, CMP, HEPATIC, [id number], CBC ####[address]#### IGG ####[facility] , Complete Blood Count Auto Di ffon 02-25-2024 Mean Corpuscular HGB Conc 34.7 g/dL Normal 32.5-35.6 [facility] Comment on above: Performed By: #### A 1C WTH eA, PTH, CMP, HEPATIC, [id number], CBC ####[address]#### IGG ####[facility] , NRBC% 0.5 /100{WBC} Normal 0-0.5 [facility] Comment on above: Performed By: #### A 1C WTH eA, PTH, CMP, HEPATIC, [id number], CBC ####[address]#### IGG ####[facility] , Comprehensive Metabolic Pane ari 02-25-2024 Albumin [Mass/Vol] 4.2 g/dL Normal 3.5-5.7 [facility] Comment on above: Performed By: #### A 1C WTH eA, PTH, CMP, HEPATIC, [id number], CBC ####[place] [address] [place]#### IGG ####[facility] , GFR/1.73 sq M.predicted MDRD (S/P/Bld) [Vol rate/Area] mL/min/{1.73_m2} Normal [facility] Comment on above: Performed By: #### A 1C WTH eA, PTH, CMP, HEPATIC, [id number], CBC ####[facility] [address] [place] [id number] [place]#### IGG ####[facility] , Creatinine [Mass/volume] in Serum or PlasmaOrdered By: Adelita Gutierres on 02-25-2024 Creatinine [Mass/Vol] 1.10 mg/dL Normal 0.70-1.30 [facility] Comment on above: Performed By: #### A 1C WTH eA, PTH, CMP, HEPATIC, [id number], CBC ####[facility] [place] [id number] [place]#### IGG ####[facility] , Erythrocyte distribution wid th [Ratio] by Automated countOrdered By: Adelita Gutierres on 02-25-2024 Erythrocyte distribution width (RBC) [Ratio] 13.5 % Normal 12.0-14.8 [facility] Comment on above: Performed By: #### A 1C WTH eA, PTH, CMP, HEPATIC, [id number], CBC ####[facility] [place] [address] [place]#### IGG ####[facility] , Erythrocytes [#/volume] in B lood by Automated countOrdered By: Adelita Gutierres on 02-25-2024 RBC (Bld) [#/Vol] 5.58 10*6/uL Normal 3.90-5.60 [facility] Comment on above: Performed By: #### A 1C WTH eA, PTH, CMP, HEPATIC, [id number], CBC ####[facility] [place] [address] [place]#### IGG ####[facility] , Glucose [Mass/volume] in Ser um or PlasmaOrdered By: Adelita Gutierres on 02-25-2024 Glucose [Mass/Vol] 286 mg/dL High 70-100 [facility] Comment on above: ADA recommended refe rence rangeRandom Glucose Reference Range is dependent on time and content of last meal. Glucose of more than 200 mg/dL in a nonstressed, ambulatory subject supports the diagnosis of Diabetes Mellitus. Result Comment: [place] om Glucose Reference Range is dependent on time and content of last meal. Glucose of more than 200 mg/dL in a nonstressed, ambulatory subject supports the diagnosis of Diabetes Mellitus. ADA recommended reference range Performed By: #### A 1C WTH eA, PTH, CMP, HEPATIC, [id number], CBC ####[place] [address] [address]#### IGG ####[facility] , Glucose mean value [Mass/vol ume] in Blood Estimated from glycated hemoglobinOrdered By: Adelita Gutierres on 02-25-2024 Average glucose Estimated from glycated hemoglobin (Bld) [Mass/Vol] 312 mg/dL [facility] Hematocrit [Volume Fraction] of Blood by Automated countOrdered By: Adelita Gutierres on 02-25-2024 Hematocrit (Bld) [Volume fraction] 48.2 % Normal 38.8-50.0 [facility] Comment on above: Performed By: #### A 1C WTH eA, PTH, CMP, HEPATIC, [id number], CBC ####[place] [address] [place] [address] [place]#### IGG ####[facility] , Hemoglobin A1c percentageOrd ered By: Adelita Gutierres on 02-25-2024 HbA1c (Bld) [Mass fraction] 12.5 % High 4.3-5.6 [facility] Comment on above: Increased risk for d iabetes: 5.7 - 6.4diabetes: >6.4glycemic control for adults with diabetes: <7.0 Result Comment: Incr eased risk for diabetes: 5.7 - 6.4 diabetes: >6.4 glycemic control for adults with diabetes: <7.0 Performed By: #### A 1C WTH eA, PTH, CMP, HEPATIC, [id number], CBC ####[place] [address] [place] [address] [place]#### IGG ####[facility] , Hemoglobin [Mass/volume] in BloodOrdered By: Adelita Gutierres on 02-25-2024 Hemoglobin (Bld) [Mass/Vol] 16.7 g/dL Normal 13.0-17.0 [facility] Comment on above: Performed By: #### A 1C WTH eA, PTH, CMP, HEPATIC, [id number], CBC ####[place] [address] [place] [address] [place]#### IGG ####[facility] , Hepatic Panelon 02-25-2024 Bilirubin,Indirect 0.7 mg/dL Normal [facility] Comment on above: Performed By: #### A 1C WTH eA, PTH, CMP, HEPATIC, [id number], CBC ####[place] [address] [address]#### IGG ####[facility] , Bilirubin.indirect [Mass/Vol] 0.10 mg/dL Normal 0.03-0.18 [facility] Comment on above: Performed By: #### A 1C WTH eA, PTH, CMP, HEPATIC, [id number], CBC ####[place] [address] [place] [address] [place]#### IGG ####[facility] , IgG [Mass/volume] in Serum o r PlasmaOrdered By: Adelita Gutierres on 02-25-2024 IgG [Mass/Vol] 989 mg/dL 603-1613 [facility] Comment on above: Performed at: CB - [facility] [id number] [place] [id number] Director: Yury Hernandez PhD, Phone: [phone] Immunoglobulin Renato 4 Immunoglobulin G 989 mg/dL Normal 603-1613 [facility] Comment on above: Result Comment: Perf ormed at: CB - [facility] [address] [place], [place] [id number] [employer] Ambassador: Yury Hernandez PhD, Phone: [phone] BY:[address] [place], [place] [phone] MEDICAL DIRECTORBRENTON THORNE M.D. Performed By: #### A 1C WTH eA, PTH, CMP, HEPATIC, [id number], CBC ####[place] [address] [place] [id number] [place]#### IGG ####[facility] , Leukocytes [#/volume] correc roe for nucleated erythrocytes in Blood by Automated counOrdered By: Adelita Gutierres on 02-25-2024 WBC corrected for nucl RBC Auto (Bld) [#/Vol] 10.0 10*3/uL 4.1-10.5 [facility] Leukocytes [#/volume] in Blo od by Automated countOrdered By: Adelita Gutierres on 02-25-2024 WBC (Bld) [#/Vol] 10.0 10*3/uL Normal 4.1-10.5 [facility] Comment on above: Performed By: #### A 1C WTH eA, PTH, CMP, HEPATIC, [id number], CBC ####[place] [address] [place] [address] [place]#### IGG ####[facility] , Lymphocytes [#/volume] in Bl ood by Automated countOrdered By: Adelita Gutierres on 02-25-2024 Lymphocytes (Bld) [#/Vol] 1.3 10*3/uL Normal 1.00-4.8 [facility] Comment on above: Performed By: #### A 1C WTH eA, PTH, CMP, HEPATIC, [id number], CBC ####[place] [address] [place] [id number] [place]#### IGG ####[facility] , Lymphocytes/100 leukocytes i n Blood by Automated countOrdered By: Adelita Gutierres on 02-25-2024 Lymphocytes/100 WBC (Bld) 12.9 % Normal . [facility] Comment on above: Performed By: #### A 1C WTH eA, PTH, CMP, HEPATIC, [id number], CBC ####[place] [address] [place]#### IGG ####[facility] , MCH [Entitic mass] by Automa roe countOrdered By: Adelita Gutierres on 02-25-2024 MCH (RBC) [Entitic mass] 29.9 pg Normal 27.5-35.2 [facility] Comment on above: Performed By: #### A 1C WTH eA, PTH, CMP, HEPATIC, [id number], CBC ####[address]#### IGG ####[facility] , MCHC Auto (RBC) [Mass/Vol]Or dered By: Adelita Gutierres on 02-25-2024 MCHC (RBC) [Mass/Vol] 34.7 g/dL 32.5-35.6 [facility] MCV [Entitic volume] by Auto mated countOrdered By: Adelita Gutierres on 02-25-2024 MCV (RBC) [Entitic vol] 86.3 fL Normal 83.5-101 [facility] Comment on above: Performed By: #### A 1C WTH eA, PTH, CMP, HEPATIC, [id number], CBC ####[address]#### IGG ####[facility] , Neutrophils [#/volume] in Bl ood by Automated countOrdered By: Adelita Gutierres on 02-25-2024 Neutrophils (Bld) [#/Vol] 7.9 10*3/uL High 1.8-7.7 [facility] Comment on above: Performed By: #### A 1C WTH eA, PTH, CMP, HEPATIC, [id number], CBC ####[address]#### IGG ####[facility] , No Panel InformationOrdered By: Adelita Gutierres on 02-25-2024 Estimated GFR (CKD-EPI) > 60.0 mL/Min [facility] Creatinine Clearance (Chem N/A [facility] Nucleated erythrocytes [Pres ence] in Blood by Automated countOrdered By: Adelita Gutierres on 02-25-2024 Nucleated RBC Auto Ql (Bld) 0.5 /100{WBC} 0-0.5 [facility] Parathyrin.intact [Mass/volu me] in Serum or PlasmaOrdered By: Adelita Gutierres on 02-25-2024 Parathyrin.intact [Mass/Vol] 150.9 pg/mL High [facility] Parathyroid Hormone Intacton 02-25-2024 Parathyroid Hormone Intact 150.9 pg/mL High [facility] Comment on above: Result Comment: PERF ORMED BY:[address]orgeSA[place], [place] [phone] MEDICAL DIRECTORBRENTON THORNE M.D. Performed By: #### A 1C WTH eA, PTH, CMP, HEPATIC, [id number], CBC ####[facility] [id number] [place] [address] [facility]#### IGG ####[facility] , Platelet mean volume [Entiti c volume] in Blood by Automated countOrdered By: Adelita Gutierres on 02-25-2024 Platelet mean volume (Bld) [Entitic vol] 9.2 fL Normal 6.6-10.1 [facility] Comment on above: Performed By: #### A 1C WTH eA, PTH, CMP, HEPATIC, [id number], CBC ####[facility] [address] [place] [address] [facility]#### IGG ####[facility] , Platelets [#/volume] in Bloo d by Automated countOrdered By: Adelita Gutierres on 02-25-2024 Platelets (Bld) [#/Vol] 301 10*3/uL Normal 150-450 [facility] Comment on above: Performed By: #### A 1C WTH eA, PTH, CMP, HEPATIC, [id number], CBC ####[facility] [place] [address] [place]#### IGG ####[facility] , Potassium [Moles/volume] in Serum or PlasmaOrdered By: Adelita Gutierres on 02-25-2024 Potassium [Moles/Vol] 5.2 mmol/L High 3.5-5.1 [facility] Comment on above: Performed By: #### A 1C WTH eA, PTH, CMP, HEPATIC, [id number], CBC ####[place] [address] [place] [address] [place]#### IGG ####[facility] , Protein [Mass/volume] in Ser um or PlasmaOrdered By: Adelita Gutierres on 02-25-2024 Protein [Mass/Vol] 7.3 g/dL Normal 6.4-8.9 [facility] Comment on above: Performed By: #### A 1C WTH eA, PTH, CMP, HEPATIC, [id number], CBC ####[place] [address] [place] [address] [place]#### IGG ####[facility] , Serum globulin measurement b y calculation (mass/volume)Ordered By: Adelita Gutierres on 02-25-2024 Globulin (S) [Mass/Vol] 3.1 g/dL [facility] Comment on above: Performed By: #### A 1C WTH eA, PTH, CMP, HEPATIC, [id number], CBC ####[place] [address] [place] [address] [place]#### IGG ####[facility] , Serum or plasma albumin/glob ulin mass ratioOrdered By: Adelita Gutierres on 02-25-2024 Albumin/Globulin [Mass ratio] 1.4 {ratio} [facility] Comment on above: Performed By: #### A 1C WTH eA, PTH, CMP, HEPATIC, [id number], CBC ####[address] [place] [address] [place]#### IGG ####[facility] , Serum or plasma anion gap de terminationOrdered By: Adelita Gutierres on 02-25-2024 Anion gap [Moles/Vol] 14.4 mmol/L Normal 6.0-15.0 [facility] Comment on above: Performed By: #### A 1C WTH eA, PTH, CMP, HEPATIC, [id number], CBC ####[address]#### IGG ####[facility] , Serum or plasma non-glucuron idated bilirubin measurement (mass/volume)Ordered By: Adelita Gutierres on 02-25-2024 Bilirubin.indirect [Mass/Vol] 0.7 mg/dL [facility] Sodium [Moles/volume] in Ser um or PlasmaOrdered By: Adelita Gutierres on 02-25-2024 Sodium [Moles/Vol] 134 mmol/L Low 136-145 [facility] Comment on above: Performed By: #### A 1C WTH eA, PTH, CMP, HEPATIC, [id number], CBC ####[place] [address] [place]#### IGG ####[facility] , Urea nitrogen [Mass/volume] in Serum or PlasmaOrdered By: Adelita Gutierres on 02-25-2024 Urea nitrogen [Mass/Vol] 21 mg/dL Normal 7-25 [facility] Comment on above: Performed By: #### A 1C WTH eA, PTH, CMP, HEPATIC, [id number], CBC ####[place] [address] [place]#### IGG ####[facility] , Vitamin D 25 Hydroxy Totalon 02-25-2024 Vitamin D 25 Hydroxy Total 24.6 ng/mL Low 30-100 [facility] Comment on above: Result Comment: CRISTAL MIN D STATUS 25([place])VITAMIN D RANGE (ng/mL) Deficient <20 Insufficient 20 to <30 Sufficient 30 to 100 Reference: Golden Aguirre, Rosibel SALVADOR, et al. Evaluation,treatment, and prevention of vitamin D deficiency; an Endocrine Society clinical practice guideline. JCEM. 2010; 96(7):191-.PERFORMED BY:[facility] [place] [phone] MEDICAL DIRECTORBRENTON THORNE M.D. Performed By: #### A 1C WTH eA, PTH, CMP, HEPATIC, [id number], CBC ####[facility] [id number] [place] [address] [facility]#### IGG ####[facility] , Vitamin D+Metabolites [Mass/ volume] in Serum or PlasmaOrdered By: Adelita Gutierres on 02-25-2024 Vitamin D+Metabolites [Mass/Vol] 24.6 ng/mL Low 30-100 [facility] Comment on above: VITAMIN D STATUS 25( [place])VITAMIN D RANGE (ng/mL) Deficient <20 Insufficient 20 to <30Sufficient 30 to 100Reference: Golden Aguirre, Rosibel SALVADOR, et al. Evaluation,treatment, and prevention of vitamin D deficiency; an Endocrine Society clinical practice guideline. JCEM. 2010; 96(7):1911-. COVID CepheidOrdered By: Vasile Trevino on 05-25-2023 SARS-CoV-2 (COVID-19) RNA BOYD+probe Ql (Unsp spec) [facility] SARS-CoV-2 (COVID-19) Ab IA Ql Negative Negative [facility] Comment on above: This is a duplicate CepPearescopeid Xpert Xpress CoV-2/Flu/RSV Plus RNA by RT-PCR result to be used for statistical tracking purpose only. SARS-CoV-2 (COVID-19) RNA BOYD+probe Ql (Unsp spec) [facility] Streptococcus pyogenes antig en detectionOrdered By: Donato Trevino on 05-25-2023 S. pyogenes Ag Ql (Unsp spec) [facility] Alanine aminotransferase [En zymatic activity/volume] in Serum or PlasmaOrdered By: Aiden Mary on 03-23-2023 ALT [Catalytic activity/Vol] 31 U/L 7-52 [facility] Albumin [Mass/volume] in Ser um or Plasma by Bromocresol green (BCG) dye binding methoOrdered By: Aiden Mary on 03-23-2023 Albumin BCG dye [Mass/Vol] 3.9 g/dL 3.5-5.7 [facility] Alkaline phosphatase [Enzyma tic activity/volume] in Serum or PlasmaOrdered By: Aiden Mary on 03-23-2023 ALP [Catalytic activity/Vol] 122 U/L 34-104 [facility] Amphetamine Screen Ql (U)Ord ered By: Aiden Mary on 03-23-2023 Amphetamines Ql (U) Negative Negative [facility] Aspartate aminotransferase [ Enzymatic activity/volume] in Serum or PlasmaOrdered By: Aiden Mary on 03-23-2023 AST [Catalytic activity/Vol] 17 U/L 13-39 [facility] Automated erythrocytes count in urine sediment (number/area)Ordered By: Aiden Mary on 03-23-2023 RBC Auto (Urine sed) [#/Area] 1-2 [HPF] 0-4 [facility] Automated leukocytes count i n urine sediment (number/area)Ordered By: Aiden Mary on 03-23-2023 WBC Auto (Urine sed) [#/Area] 20-49 [HPF] 0-4 [facility] Barbiturates [Presence] in U rine by Screen methodOrdered By: Aiden Mary on 03-23-2023 Barbiturates Screen Ql (U) Negative Negative [facility] Basophils Auto (Bld) [#/Vol] Ordered By: Aiden Mary on 03-23-2023 Basophils (Bld) [#/Vol] 0.0 10*3/uL 0.0-0.2 [facility] Basophils/100 WBC Auto (Bld) Ordered By: Aiden Mary on 03-23-2023 Basophils/100 WBC (Bld) 0.6 % . [facility] Benzodiazepines Screen Ql (U )Ordered By: Aiden Mary on 03-23-2023 Benzodiazepines Ql (U) Negative Negative [facility] Benzoylecgonine [Presence] i n Urine by Screen methodOrdered By: Aiden Mary on 03-23-2023 Benzoylecgonine Screen Ql (U) Positive Negative [facility] Bilirubin Test strip Ql (U)O rdered By: Aiden Mary on 03-23-2023 Bilirubin Ql (U) Negative Negative [facility] Bilirubin.total [Mass/volume ] in Serum or PlasmaOrdered By: Aiden Mary on 03-23-2023 Bilirubin [Mass/Vol] 0.6 mg/dL 0.3-1.0 [facility] Calcium [Mass/volume] in Ser um or PlasmaOrdered By: Aiden Mary on 03-23-2023 Calcium [Mass/Vol] 9.0 mg/dL 8.6-10.3 [facility] Cannabinoids [Presence] in U rine by Screen methodOrdered By: Aiden Mary on 03-23-2023 Cannabinoids Screen Ql (U) Positive Negative [facility] Comment on above: These are unconfirme d results and should not be used for legal purposes. Drug Cut-Off Concentration: AMPH 1000 ng/mL ALICIA 200 ng/mL JAMISON 200 ng/mL COCM 300 ng/mL OP 300 ng/mL PCP 25 ng/mL THC 20 ng/mL Carbon dioxide, total [Moles /volume] in Serum or PlasmaOrdered By: Aiden Mary on 03-23-2023 CO2 [Moles/Vol] 24.2 mmol/L 21.0-31.0 [facility] Chloride [Moles/volume] in S miguel or PlasmaOrdered By: Aiden Mary on 03-23-2023 Chloride [Moles/Vol] 102 mmol/L 98-107 [facility] Color Auto (U)Ordered By: Addie Mary on 03-23-2023 Color (U) Yellow Yellow [facility] [facility] Creatine kinase [Enzymatic a ctivity/volume] in Serum or PlasmaOrdered By: Aiden Mary on 03-23-2023 CK [Catalytic activity/Vol] 65 U/L 30-223 [facility] Creatinine [Mass/volume] in Serum or PlasmaOrdered By: Aiden Mary on 03-23-2023 Creatinine [Mass/Vol] 0.97 mg/dL 0.70-1.30 [facility] Eosinophils Auto (Bld) [#/Vo l]Ordered By: Aiden Mary on 03-23-2023 Eosinophils (Bld) [#/Vol] 0.1 10*3/uL 0.0-0.45 [facility] Eosinophils/100 WBC Auto (Bl d)Ordered By: Aiden Mary on 03-23-2023 Eosinophils/100 WBC (Bld) 1.2 % . [facility] Erythrocyte distribution wid th Auto (RBC) [Ratio]Ordered By: Aiden Mary on 03-23-2023 Erythrocyte distribution width (RBC) [Ratio] 13.7 % 12.0-14.8 [facility] Globulin Calc (S) [Mass/Vol] Ordered By: Adien Mary on 03-23-2023 Globulin (S) [Mass/Vol] 3.2 g/dL [facility] Glucose Glucometer (BldC) [M ass/Vol]Ordered By: Eh Rock on 03-23-2023 Glucose [Mass/Vol] 333 mg/dL [facility] Comment on above: Random Glucose Refer ence Range is dependent on time and content of last meal. Glucose of more than 200 mg/dL in a nonstressed, ambulatory subject supports the diagnosis of Diabetes Mellitus. Glucose [Mass/volume] in Ser um or PlasmaOrdered By: Aiden Mary on 03-23-2023 Glucose [Mass/Vol] 356 mg/dL 70-100 [facility] Comment on above: ADA recommended refe rence rangeRandom Glucose Reference Range is dependent on time and content of last meal. Glucose of more than 200 mg/dL in a nonstressed, ambulatory subject supports the diagnosis of Diabetes Mellitus. Hematocrit Auto (Bld) [Volum e fraction]Ordered By: Aiden Mary on 03-23-2023 Hematocrit (Bld) [Volume fraction] 44.1 % 38.8-50.0 [facility] Hemoglobin [Mass/volume] in BloodOrdered By: Aiden Mary on 03-23-2023 Hemoglobin (Bld) [Mass/Vol] 15.2 g/dL 13.0-17.0 [facility] INR in Platelet poor plasma by Coagulation assayOrdered By: Eh Rock on 03-23-2023 INR Coag (PPP) [Relative time] 0.9 {INR} [facility] Comment on above: INR Therapeutic Rang e A) Pre- and Peroperative OAT started two weeks before surgery. NOT HIP SURGERY: 1.5 - 2.5 HIP SURGERY: 2 - 3B) Primary and secondary prevention of venous THROMBOSIS: 2 - 3C) Active venous thrombosis, pulmonary embolismand prevention of recurrent venous thrombosis: 2 - 3D) Prevention of arterial thromboembolismincluding patients with mechanical heart valves: 3 - 4.5 Ketones Auto test strip (U) [Mass/Vol]Ordered By: Aiden Mary on 03-23-2023 Ketones (U) [Mass/Vol] Negative Negative Fi [facility] Laboratory - CoagulationOrde red By: hE Rock on 03-23-2023 PT Coag (PPP) [Time] 10.6 s 9.0-12.9 [facility] Laboratory - UrinalysisOrder ed By: Aiden Mary on 03-23-2023 Hyaline casts LM Ql (Urine sed) 0-8 [LPF] 0-8 [facility] Leukocytes [#/volume] correc roe for nucleated erythrocytes in Blood by Automated counOrdered By: Aiden Mary on 03-23-2023 WBC corrected for nucl RBC Auto (Bld) [#/Vol] 7.0 10*3/uL 4.1-10.5 [facility] Lymphocytes Auto (Bld) [#/Vo l]Ordered By: Aiden Mary on 03-23-2023 Lymphocytes (Bld) [#/Vol] 0.9 10*3/uL 1.00-4.8 [facility] Lymphocytes/100 WBC Auto (Bl d)Ordered By: Aiden Mary on 03-23-2023 Lymphocytes/100 WBC (Bld) 13.2 % . [facility] MCH Auto (RBC) [Entitic mass ]Ordered By: Aiden Mary on 03-23-2023 MCH (RBC) [Entitic mass] 29.6 pg 27.5-35.2 [facility] MCHC Auto (RBC) [Mass/Vol]Or dered By: Aiden Mary on 03-23-2023 MCHC (RBC) [Mass/Vol] 34.5 g/dL 32.5-35.6 [facility] MCV Auto (RBC) [Entitic vol] Ordered By: Aiden Mary on 03-23-2023 MCV (RBC) [Entitic vol] 85.7 fL 83.5-101 [facility] Monocyte distribution width [Entitic volume] in Blood by AutomatedOrdered By: Aiden Mary on 03-23-2023 Monocyte distribution width Auto (Bld) [Entitic vol] 19.18 % 0.00-20.00 [facility] Monocytes Auto (Bld) [#/Vol] Ordered By: Aiden Mary on 03-23-2023 Monocytes (Bld) [#/Vol] 0.4 10*3/uL 0.0-0.8 [facility] Monocytes/100 WBC Auto (Bld) Ordered By: Aiden Mary on 03-23-2023 Monocytes/100 WBC (Bld) 6.3 % . [facility] Neutrophils Auto (Bld) [#/Vo l]Ordered By: Aiden Mary on 03-23-2023 Neutrophils (Bld) [#/Vol] 5.5 10*3/uL 1.8-7.7 [facility] Neutrophils/100 WBC Auto (Bl d)Ordered By: Aiden Mary on 03-23-2023 Neutrophils/100 WBC (Bld) 78.7 % . [facility] Nitrite Test strip Ql (U)Ord ered By: Aiden Mary on 03-23-2023 Nitrite Ql (U) Negative Negative [facility] No Panel InformationOrdered By: Aiden Mary on 03-23-2023 Estimated GFR (CKD-EPI) > 60.0 mL/Min [facility] Creatinine Clearance (Chem 117.72 [facility] Nucleated erythrocytes [Pres ence] in Blood by Automated countOrdered By: Aiden Mary on 03-23-2023 Nucleated RBC Auto Ql (Bld) 0.1 /100{WBC} 0-0.5 [facility] Opiates [Presence] in Urine by Screen methodOrdered By: Aiden Mary on 03-23-2023 Opiates Screen Ql (U) Negative Negative [facility] Phencyclidine Screen Ql (U)O rdered By: Aiden Mary on 03-23-2023 Phencyclidine Ql (U) Negative Negative [facility] Platelet mean volume Auto (B ld) [Entitic vol]Ordered By: Aiden Mary on 03-23-2023 Platelet mean volume (Bld) [Entitic vol] 8.9 fL 6.6-10.1 [facility] Platelets Auto (Bld) [#/Vol] Ordered By: Aiden Mary on 03-23-2023 Platelets (Bld) [#/Vol] 187 10*3/uL 150-450 [facility] Potassium [Moles/volume] in Serum or PlasmaOrdered By: Aiden Mary on 03-23-2023 Potassium [Moles/Vol] 4.2 mmol/L 3.5-5.1 [facility] Protein Auto test strip (U) [Mass/Vol]Ordered By: Aiden Mary on 03-23-2023 Protein (U) [Mass/Vol] Negative Negative [facility] Protein [Mass/volume] in Ser um or PlasmaOrdered By: Aiden Mary on 03-23-2023 Protein [Mass/Vol] 7.1 g/dL 6.4-8.9 [facility] RBC Auto (Bld) [#/Vol]Ordere d By: Aiden Mary on 03-23-2023 RBC (Bld) [#/Vol] 5.14 10*6/uL 3.90-5.60 [facility] Serum or plasma albumin/glob ulin mass ratioOrdered By: Aiden Mary on 03-23-2023 Albumin/Globulin [Mass ratio] 1.2 {ratio} [facility] Serum or plasma anion gap de terminationOrdered By: Aiden Mary on 03-23-2023 Anion gap [Moles/Vol] 11.0 mmol/L 6.0-15.0 [facility] Sodium [Moles/volume] in Ser um or PlasmaOrdered By: Aiden Mary on 03-23-2023 Sodium [Moles/Vol] 133 mmol/L 136-145 [facility] Specific gravity Auto test s trip (U) [Rel density]Ordered By: Aiden Mary on 03-23-2023 Specific gravity (U) [Rel density] 1.033 1.001-1.03 0 [facility] Squamous epithelial cells de tection in urine sediment by light microscopyOrdered By: Aiden Mary on 03-23-2023 Epithelial cells.squamous LM Ql (Urine sed) 0-1 [HPF] 0-2 [facility] Troponin I.cardiac [Mass/vol ume] in Serum or Plasma by Detection limit <= 0.01 ng/Ordered By: Aiden Mary on 03-23-2023 Troponin I.cardiac DL <= 0.01 ng/mL [Mass/Vol] 8.4 pg/mL 0.0-20.0 [facility] Urea nitrogen [Mass/volume] in Serum or PlasmaOrdered By: Aiden Mary on 03-23-2023 Urea nitrogen [Mass/Vol] 19 mg/dL 7-25 [facility] Urine bacteria detection by automated methodOrdered By: Aiden Mary on 03-23-2023 Bacteria Auto Ql (U) None seen None Seen [facility] Urine clarity by refractomet ry automatedOrdered By: Aiden Mary on 03-23-2023 Clarity Refractometry automated (U) Clear Clear [facility] Urine culture routineOrdered By: Aiden Mary on 03-23-2023 Bacteria identified Cx Nom (U) No Growth 2 Days [facility] Urine glucose measurement by automated test strip (mass/volume)Ordered By: Aiden Mary on 03-23-2023 Glucose Auto test strip (U) [Mass/Vol] >=1000 mg/dL Normal [facility] Urine hemoglobin detection b y automated test stripOrdered By: Aiden Mary on 03-23-2023 Hemoglobin Auto test strip Ql (U) Negative Negative [facility] Urine leukocyte esterase det ection by automated test stripOrdered By: Aiden Mary on 03-23-2023 Leukocyte esterase Auto test strip Ql (U) 2+ Negative [facility] Urobilinogen Auto test strip (U) [Mass/Vol]Ordered By: Aiden Mary on 03-23-2023 Urobilinogen (U) [Mass/Vol] Normal mg/dL Normal [facility] WBC Auto (Bld) [#/Vol]Ordere d By: Aiden Mary on 03-23-2023 WBC (Bld) [#/Vol] 7.0 10*3/uL 4.1-10.5 [facility] pH Auto test strip (U)Ordere d By: Aiden Mary on 03-23-2023 pH (U) 5.5 [pH] 5.0-9.0 [facility] Alanine aminotransferase [En zymatic activity/volume] in Serum or PlasmaOrdered By: Barbara Sandoval on 03-20-2023 ALT [Catalytic activity/Vol] 30 U/L 7-52 [facility] Albumin [Mass/volume] in Ser um or Plasma by Bromocresol green (BCG) dye binding methoOrdered By: Barbara Sandoval on 03-20-2023 Albumin BCG dye [Mass/Vol] 4.1 g/dL 3.5-5.7 [facility] Alkaline phosphatase [Enzyma tic activity/volume] in Serum or PlasmaOrdered By: Barbara Sandoval on 03-20-2023 ALP [Catalytic activity/Vol] 123 U/L 34-104 [facility] Amphetamine Screen Ql (U)Ord ered By: Barbara Sandoval on 03-20-2023 Amphetamines Ql (U) Negative Negative [facility] Aspartate aminotransferase [ Enzymatic activity/volume] in Serum or PlasmaOrdered By: Barbara Sandoval on 03-20-2023 AST [Catalytic activity/Vol] 16 U/L 13-39 [facility] Automated erythrocytes count in urine sediment (number/area)Ordered By: Barbara Sandoval on 03-20-2023 RBC Auto (Urine sed) [#/Area] 0-1 [HPF] 0-4 [facility] Automated leukocytes count i n urine sediment (number/area)Ordered By: Barbara Sandoval on 03-20-2023 WBC Auto (Urine sed) [#/Area] 20-49 [HPF] 0-4 [facility] Barbiturates [Presence] in U rine by Screen methodOrdered By: Barbara Sandoval on 03-20-2023 Barbiturates Screen Ql (U) Negative Negative [facility] Basophils Auto (Bld) [#/Vol] Ordered By: Barbara Sandoval on 03-20-2023 Basophils (Bld) [#/Vol] 0.0 10*3/uL 0.0-0.2 [facility] Basophils/100 WBC Auto (Bld) Ordered By: Barbara Sandoval on 03-20-2023 Basophils/100 WBC (Bld) 0.7 % . [facility] Benzodiazepines Screen Ql (U )Ordered By: Barbara Sandoval on 03-20-2023 Benzodiazepines Ql (U) Negative Negative Fi [facility] Benzoylecgonine [Presence] i n Urine by Screen methodOrdered By: Barbara Sandoval on 03-20-2023 Benzoylecgonine Screen Ql (U) Positive Negative [facility] Bilirubin Test strip Ql (U)O rdered By: Barbara Sandoval on 03-20-2023 Bilirubin Ql (U) Negative Negative [facility] Bilirubin.total [Mass/volume ] in Serum or PlasmaOrdered By: Barbara Sandoval on 03-20-2023 Bilirubin [Mass/Vol] 0.6 mg/dL 0.3-1.0 [facility] Calcium [Mass/volume] in Ser um or PlasmaOrdered By: Barbara Sandoval on 03-20-2023 Calcium [Mass/Vol] 9.4 mg/dL 8.6-10.3 [facility] Cannabinoids [Presence] in U rine by Screen methodOrdered By: Barbara Sandoval on 03-20-2023 Cannabinoids Screen Ql (U) Positive Negative [facility] Comment on above: These are unconfirme d results and should not be used for legal purposes. Drug Cut-Off Concentration: AMPH 1000 ng/mL ALICIA 200 ng/mL JAMISON 200 ng/mL COCM 300 ng/mL OP 300 ng/mL PCP 25 ng/mL THC 20 ng/mL Carbon dioxide, total [Moles /volume] in Serum or PlasmaOrdered By: Barbara Sandoval on 03-20-2023 CO2 [Moles/Vol] 24.8 mmol/L 21.0-31.0 [facility] Chloride [Moles/volume] in S miguel or PlasmaOrdered By: Barbara Sandoval on 03-20-2023 Chloride [Moles/Vol] 99 mmol/L 98-107 [facility] Color Auto (U)Ordered By: Almita Sandoval on 03-20-2023 Color (U) Yellow Yellow [facility] Creatine kinase [Enzymatic a ctivity/volume] in Serum or PlasmaOrdered By: Barbara Sandoval on 03-20-2023 CK [Catalytic activity/Vol] 45 U/L 30-223 [facility] Creatinine [Mass/volume] in Serum or PlasmaOrdered By: Barbara Sandoval on 03-20-2023 Creatinine [Mass/Vol] 1.08 mg/dL 0.70-1.30 [facility] Eosinophils Auto (Bld) [#/Vo l]Ordered By: Barbara Sandoval on 03-20-2023 Eosinophils (Bld) [#/Vol] 0.1 10*3/uL 0.0-0.45 [facility] Eosinophils/100 WBC Auto (Bl d)Ordered By: Barbara Sandoval on 03-20-2023 Eosinophils/100 WBC (Bld) 1.9 % . [facility] Erythrocyte distribution wid th Auto (RBC) [Ratio]Ordered By: Barbara Sandoval on 03-20-2023 Erythrocyte distribution width (RBC) [Ratio] 13.7 % 12.0-14.8 [facility] Globulin Calc (S) [Mass/Vol] Ordered By: Barbara Sandoval on 03-20-2023 Globulin (S) [Mass/Vol] 3.5 g/dL [facility] Glucose [Mass/volume] in Ser um or PlasmaOrdered By: Barbara Sandoval on 03-20-2023 Glucose [Mass/Vol] 387 mg/dL 70-100 [facility] Comment on above: ADA recommended refe rence rangeRandom Glucose Reference Range is dependent on time and content of last meal. Glucose of more than 200 mg/dL in a nonstressed, ambulatory subject supports the diagnosis of Diabetes Mellitus. Hematocrit Auto (Bld) [Volum e fraction]Ordered By: Barbara Sandoval on 03-20-2023 Hematocrit (Bld) [Volume fraction] 46.3 % 38.8-50.0 [facility] Hemoglobin [Mass/volume] in BloodOrdered By: Barbara Sandoval on 03-20-2023 Hemoglobin (Bld) [Mass/Vol] 16.1 g/dL 13.0-17.0 [facility] Ketones Auto test strip (U) [Mass/Vol]Ordered By: Barbara Sandoval on 03-20-2023 Ketones (U) [Mass/Vol] Negative [facility] - UrinalysisOrder ed By: Barbara Sandoval on 03-20-2023 Hyaline casts LM Ql (Urine sed) None seen [LPF] 0-8 [facility] Leukocytes [#/volume] correc roe for nucleated erythrocytes in Blood by Automated counOrdered By: Barbara Sandoval on 03-20-2023 WBC corrected for nucl RBC Auto (Bld) [#/Vol] 7.3 10*3/uL 4.1-10.5 [facility] Lymphocytes Auto (Bld) [#/Vo l]Ordered By: Barbara Sandoval on 03-20-2023 Lymphocytes (Bld) [#/Vol] 1.0 10*3/uL 1.00-4.8 [facility] Lymphocytes/100 WBC Auto (Bl d)Ordered By: Barbara Sandoval on 03-20-2023 Lymphocytes/100 WBC (Bld) 14.3 % . [facility] MCH Auto (RBC) [Entitic mass ]Ordered By: Barbara Sandoval on 03-20-2023 MCH (RBC) [Entitic mass] 29.7 pg 27.5-35.2 [facility] MCHC Auto (RBC) [Mass/Vol]Or dered By: Barbara Sandoval on 03-20-2023 MCHC (RBC) [Mass/Vol] 34.7 g/dL 32.5-35.6 [facility] MCV Auto (RBC) [Entitic vol] Ordered By: Barbara Sandoval on 03-20-2023 MCV (RBC) [Entitic vol] 85.6 fL 83.5-101 [facility] Magnesium [Mass/volume] in S miguel or PlasmaOrdered By: Barbara Sandoval on 03-20-2023 Magnesium [Mass/Vol] 1.9 mg/dL 1.9-2.7 [facility] Monocyte distribution width [Entitic volume] in Blood by AutomatedOrdered By: Barbara Sandoval on 03-20-2023 Monocyte distribution width Auto (Bld) [Entitic vol] 18.70 % 0.00-20.00 [facility] Monocytes Auto (Bld) [#/Vol] Ordered By: Barbara Sandoval on 03-20-2023 Monocytes (Bld) [#/Vol] 0.5 10*3/uL 0.0-0.8 [facility] Monocytes/100 WBC Auto (Bld) Ordered By: Barbara Sandoval on 03-20-2023 Monocytes/100 WBC (Bld) 7.5 % . [facility] Natriuretic peptide B [Mass/ Vol]Ordered By: Barbara Sandoval on 03-20-2023 Natriuretic peptide B (Bld) [Mass/Vol] 33.0 pg/mL 5-100 [facility] Neutrophils Auto (Bld) [#/Vo l]Ordered By: Barbara Sandoval on 03-20-2023 Neutrophils (Bld) [#/Vol] 5.5 10*3/uL 1.8-7.7 [facility] Neutrophils/100 WBC Auto (Bl d)Ordered By: Barbara Sandoval on 03-20-2023 Neutrophils/100 WBC (Bld) 75.6 % . [facility] Nitrite Test strip Ql (U)Ord ered By: Barbara Sandoval on 03-20-2023 Nitrite Ql (U) Negative Negative [facility] No Panel InformationOrdered By: Barbara Sandoval on 03-20-2023 Estimated GFR (CKD-EPI) > 60.0 mL/Min [facility] Creatinine Clearance (Chem 103.79 [facility] Nucleated erythrocytes [Pres ence] in Blood by Automated countOrdered By: Barbara Sandoval on 03-20-2023 Nucleated RBC Auto Ql (Bld) 0.3 /100{WBC} 0-0.5 [facility] Opiates [Presence] in Urine by Screen methodOrdered By: Barbara Sandoval on 03-20-2023 Opiates Screen Ql (U) Negative Negative [facility] Phencyclidine Screen Ql (U)O rdered By: Barbara Sandoval on 03-20-2023 Phencyclidine Ql (U) Negative Negative [facility] Platelet mean volume Auto (B ld) [Entitic vol]Ordered By: Barbara Sandoval on 03-20-2023 Platelet mean volume (Bld) [Entitic vol] 8.9 fL 6.6-10.1 [facility] Platelets Auto (Bld) [#/Vol] Ordered By: Barbara Sandoval on 03-20-2023 Platelets (Bld) [#/Vol] 229 10*3/uL 150-450 [facility] Potassium [Moles/volume] in Serum or PlasmaOrdered By: Barbara Sandoval on 03-20-2023 Potassium [Moles/Vol] 4.6 mmol/L 3.5-5.1 [facility] Protein Auto test strip (U) [Mass/Vol]Ordered By: Barbara Sandoval on 03-20-2023 Protein (U) [Mass/Vol] Negative Negative Fi [facility] Protein [Mass/volume] in Ser um or PlasmaOrdered By: Barbara Sandoval on 03-20-2023 Protein [Mass/Vol] 7.6 g/dL 6.4-8.9 [facility] RBC Auto (Bld) [#/Vol]Ordere d By: Barbara Sandoval on 03-20-2023 RBC (Bld) [#/Vol] 5.41 10*6/uL 3.90-5.60 [facility] Serum or plasma albumin/glob ulin mass ratioOrdered By: Barbara Sandoval on 03-20-2023 Albumin/Globulin [Mass ratio] 1.2 {ratio} [facility] Serum or plasma anion gap de terminationOrdered By: Barbara Sandoval on 03-20-2023 Anion gap [Moles/Vol] 12.8 mmol/L 6.0-15.0 [facility] Sodium [Moles/volume] in Ser um or PlasmaOrdered By: Barbara Sandoval on 03-20-2023 Sodium [Moles/Vol] 132 mmol/L 136-145 [facility] Specific gravity Auto test s trip (U) [Rel density]Ordered By: Barbara Sandoval on 03-20-2023 Specific gravity (U) [Rel density] 1.033 1.001-1.03 0 [facility] Squamous epithelial cells de tection in urine sediment by light microscopyOrdered By: Barbara Sandoval on 03-20-2023 Epithelial cells.squamous LM Ql (Urine sed) 0-1 [HPF] 0-2 [facility] Troponin I.cardiac [Mass/vol ume] in Serum or Plasma by Detection limit <= 0.01 ng/Ordered By: Barbara Sandoval on 03-20-2023 Troponin I.cardiac DL <= 0.01 ng/mL [Mass/Vol] 8.7 pg/mL 0.0-20.0 [facility] Urea nitrogen [Mass/volume] in Serum or PlasmaOrdered By: Barbara Sandoval on 03-20-2023 Urea nitrogen [Mass/Vol] 19 mg/dL 7-25 [facility] Urine bacteria detection by automated methodOrdered By: Barbara Sandoval on 03-20-2023 Bacteria Auto Ql (U) None seen None Seen [facility] Urine clarity by refractomet ry automatedOrdered By: Barbara Sandoval on 03-20-2023 Clarity Refractometry automated (U) Clear Clear [facility] Urine culture routineOrdered By: Barbara Sandoval on 03-20-2023 Bacteria identified Cx Nom (U) No Growth 2 Days [facility] Urine glucose measurement by automated test strip (mass/volume)Ordered By: Barbara Sandoval on 03-20-2023 Glucose Auto test strip (U) [Mass/Vol] >=1000 mg/dL Normal [facility] Urine hemoglobin detection b y automated test stripOrdered By: Barbara Sandoval on 03-20-2023 Hemoglobin Auto test strip Ql (U) Negative Negative [facility] Urine leukocyte esterase det ection by automated test stripOrdered By: Barbara Sandoval on 03-20-2023 Leukocyte esterase Auto test strip Ql (U) 2+ Negative [facility] Urobilinogen Auto test strip (U) [Mass/Vol]Ordered By: Barbara Sandoval on 03-20-2023 Urobilinogen (U) [Mass/Vol] Normal mg/dL Normal [facility] WBC Auto (Bld) [#/Vol]Ordere d By: Barbara Sandoval on 03-20-2023 WBC (Bld) [#/Vol] 7.3 10*3/uL 4.1-10.5 [facility] pH Auto test strip (U)Ordere d By: Barbara Sandoval on 03-20-2023 pH (U) 5.5 [pH] 5.0-9.0 [facility] Activated partial thrombopla stin time (aPTT) in platelet poor plasma by coagulation aOrdered By: Donato Trevino on 03-11-2023 aPTT Coag (PPP) [Time] 29.2 s 25.1-36.5 [facility] Alanine aminotransferase [En zymatic activity/volume] in Serum or PlasmaOrdered By: Naif Pickett on 03-11-2023 ALT [Catalytic activity/Vol] 13 U/L 7-52 [facility] Albumin [Mass/volume] in Ser um or Plasma by Bromocresol green (BCG) dye binding methoOrdered By: Naif Pickett on 03-11-2023 Albumin BCG dye [Mass/Vol] 3.6 g/dL 3.5-5.7 [facility] Alkaline phosphatase [Enzyma tic activity/volume] in Serum or PlasmaOrdered By: Naif Pickett on 03-11-2023 ALP [Catalytic activity/Vol] 96 U/L 34-104 [facility] Amphetamine Screen Ql (U)Ord ered By: Naif Pickett on 03-11-2023 Amphetamines Ql (U) Negative Negative [facility] Aspartate aminotransferase [ Enzymatic activity/volume] in Serum or PlasmaOrdered By: Naif Pickett on 03-11-2023 AST [Catalytic activity/Vol] 10 U/L 13-39 [facility] Automated erythrocytes count in urine sediment (number/area)Ordered By: Donato Trevino on 03-11-2023 RBC Auto (Urine sed) [#/Area] 0-1 [HPF] 0-4 [facility] Automated leukocytes count i n urine sediment (number/area)Ordered By: Donato Trevino on 03-11-2023 WBC Auto (Urine sed) [#/Area] 20-49 [HPF] 0-4 [facility] Barbiturates [Presence] in U rine by Screen methodOrdered By: Naif Pickett on 03-11-2023 Barbiturates Screen Ql (U) Negative Negative [facility] Basophils Auto (Bld) [#/Vol] Ordered By: Naif Pickett on 03-11-2023 Basophils (Bld) [#/Vol] 0.1 10*3/uL 0.0-0.2 [facility] Basophils Auto (Bld) [#/Vol] Ordered By: Donato Trevino on 03-11-2023 Basophils (Bld) [#/Vol] 0.1 10*3/uL 0.0-0.2 [facility] Basophils/100 WBC Auto (Bld) Ordered By: Naif Pickett on 03-11-2023 Basophils/100 WBC (Bld) 0.8 % . [facility] Basophils/100 WBC Auto (Bld) Ordered By: Donato Trevino on 03-11-2023 Basophils/100 WBC (Bld) 0.9 % . [facility] Benzodiazepines Screen Ql (U )Ordered By: Naif Pickett on 03-11-2023 Benzodiazepines Ql (U) Positive Negative [facility] Benzoylecgonine [Presence] i n Urine by Screen methodOrdered By: Naif Pickett on 03-11-2023 Benzoylecgonine Screen Ql (U) Positive Negative [facility] Bilirubin Test strip Ql (U)O rdered By: Donato Trevino on 03-11-2023 Bilirubin Ql (U) Negative Negative [facility] Bilirubin.total [Mass/volume ] in Serum or PlasmaOrdered By: Naif Pickett on 03-11-2023 Bilirubin [Mass/Vol] 0.4 mg/dL 0.3-1.0 [facility] Calcium [Mass/volume] in Ser um or PlasmaOrdered By: Aleisha Foster on 03-11-2023 Calcium [Mass/Vol] 9.3 mg/dL 8.6-10.3 [facility] Calcium [Mass/volume] in Ser um or PlasmaOrdered By: Donato Trevino on 03-11-2023 Calcium [Mass/Vol] 8.9 mg/dL 8.6-10.3 [facility] Cannabinoids [Presence] in U rine by Screen methodOrdered By: Naif Pickett on 03-11-2023 Cannabinoids Screen Ql (U) Positive Negative [facility] Comment on above: These are unconfirme d results and should not be used for legal purposes. Drug Cut-Off Concentration: AMPH 1000 ng/mL ALICIA 200 ng/mL JAMISON 200 ng/mL COCM 300 ng/mL OP 300 ng/mL PCP 25 ng/mL THC 20 ng/mL Carbon dioxide, total [Moles /volume] in Serum or PlasmaOrdered By: Aleisha Foster on 03-11-2023 CO2 [Moles/Vol] 27.3 mmol/L 21.0-31.0 [facility] Carbon dioxide, total [Moles /volume] in Serum or PlasmaOrdered By: Donato Trevino on 03-11-2023 CO2 [Moles/Vol] 26.4 mmol/L 21.0-31.0 [facility] Chloride [Moles/volume] in S miguel or PlasmaOrdered By: Aleisha Foster on 03-11-2023 Chloride [Moles/Vol] 104 mmol/L 98-107 [facility] Chloride [Moles/volume] in S miguel or PlasmaOrdered By: Donato Trevino on 03-11-2023 Chloride [Moles/Vol] 104 mmol/L 98-107 [facility] Cholesterol [Mass/volume] in Serum or PlasmaOrdered By: Naif Pickett on 03-11-2023 Cholesterol [Mass/Vol] 114 mg/dL 140-200 [facility] Comment on above: Chol less than 200 m g/dl low riskChol 201-239 mg/dl borderline riskChol 240 mg/dl and greater high risk Cholesterol in LDL Calc [Mas s/Vol]Ordered By: Naif Pickett on 03-11-2023 Cholesterol in LDL [Mass/Vol] 52 mg/dL 0-100 [facility] Comment on above: LDL ATP III CLASSIFI CATIONLDL less than 100 mg/dL OptimalLDL 100-129 mg/dL Near or above optimalLDL 130-159 mg/dL Borderline highLDL 160-189 mg/dL HighLDL greater than 189 mg/dL Very high Cholesterol in VLDL Calc [Ma ss/Vol]Ordered By: Naif Pickett on 03-11-2023 Cholesterol in VLDL [Mass/Vol] 26 mg/dL [facility] Color Auto (U)Ordered By: Heri Trevino on 03-11-2023 Color (U) Yellow Yellow [facility] Creatinine [Mass/volume] in Serum or PlasmaOrdered By: Aleisha Foster on 03-11-2023 Creatinine [Mass/Vol] 0.94 mg/dL 0.70-1.30 [facility] Creatinine [Mass/volume] in Serum or PlasmaOrdered By: Donato Trevino on 03-11-2023 Creatinine [Mass/Vol] 0.97 mg/dL 0.70-1.30 [facility] Eosinophils Auto (Bld) [#/Vo l]Ordered By: Naif Pickett on 03-11-2023 Eosinophils (Bld) [#/Vol] 0.1 10*3/uL 0.0-0.45 [facility] Eosinophils Auto (Bld) [#/Vo l]Ordered By: Donato Trevino on 03-11-2023 Eosinophils (Bld) [#/Vol] 0.1 10*3/uL 0.0-0.45 [facility] Eosinophils/100 WBC Auto (Bl d)Ordered By: Naif Pickett on 03-11-2023 Eosinophils/100 WBC (Bld) 1.4 % . [facility] Eosinophils/100 WBC Auto (Bl d)Ordered By: Donato Trevino on 03-11-2023 Eosinophils/100 WBC (Bld) 1.6 % . [facility] Erythrocyte distribution wid th Auto (RBC) [Ratio]Ordered By: Naif Pickett on 03-11-2023 Erythrocyte distribution width (RBC) [Ratio] 13.6 % 12.0-14.8 [facility] Erythrocyte distribution wid th Auto (RBC) [Ratio]Ordered By: Donato Trevino on 03-11-2023 Erythrocyte distribution width (RBC) [Ratio] 13.9 % 12.0-14.8 [facility] Globulin Calc (S) [Mass/Vol] Ordered By: Naif Pickett on 03-11-2023 Globulin (S) [Mass/Vol] 2.9 g/dL [facility] Glucose Glucometer (BldC) [M ass/Vol]Ordered By: Aleisha Foster on 03-11-2023 Glucose [Mass/Vol] 229 mg/dL [facility] Comment on above: Random Glucose Refer ence Range is dependent on time and content of last meal. Glucose of more than 200 mg/dL in a nonstressed, ambulatory subject supports the diagnosis of Diabetes Mellitus. Glucose [Mass/volume] in Ser um or PlasmaOrdered By: Aleisha Foster on 03-11-2023 Glucose [Mass/Vol] 83 mg/dL 70-100 [facility] Comment on above: ADA recommended refe rence rangeRandom Glucose Reference Range is dependent on time and content of last meal. Glucose of more than 200 mg/dL in a nonstressed, ambulatory subject supports the diagnosis of Diabetes Mellitus. Glucose [Mass/volume] in Ser um or PlasmaOrdered By: Donato Trevino on 03-11-2023 Glucose [Mass/Vol] 177 mg/dL 70-100 [facility] Comment on above: ADA recommended refe rence rangeRandom Glucose Reference Range is dependent on time and content of last meal. Glucose of more than 200 mg/dL in a nonstressed, ambulatory subject supports the diagnosis of Diabetes Mellitus. Glucose mean value [Mass/vol ume] in Blood Estimated from glycated hemoglobinOrdered By: Naif Pickett on 03-11-2023 Average glucose Estimated from glycated hemoglobin (Bld) [Mass/Vol] 226 mg/dL [facility] Hematocrit Auto (Bld) [Volum e fraction]Ordered By: Naif Pickett on 03-11-2023 Hematocrit (Bld) [Volume fraction] 43.9 % 38.8-50.0 [facility] Hematocrit Auto (Bld) [Volum e fraction]Ordered By: Donato Trevino on 03-11-2023 Hematocrit (Bld) [Volume fraction] 46.3 % 38.8-50.0 [facility] Hemoglobin A1c percentageOrd ered By: Naif Pickett on 03-11-2023 HbA1c (Bld) [Mass fraction] 9.5 % 4.3-5.6 [facility] Comment on above: Increased risk for d iabetes: 5.7 - 6.4diabetes: >6.4glycemic control for adults with diabetes: <7.0 Hemoglobin [Mass/volume] in BloodOrdered By: Naif Pickett on 03-11-2023 Hemoglobin (Bld) [Mass/Vol] 15.4 g/dL 13.0-17.0 [facility] Hemoglobin [Mass/volume] in BloodOrdered By: Donato Trevino on 03-11-2023 Hemoglobin (Bld) [Mass/Vol] 16.3 g/dL 13.0-17.0 [facility] Ketones Auto test strip (U) [Mass/Vol]Ordered By: Donato Trevino on 03-11-2023 Ketones (U) [Mass/Vol] Negative Negative [facility] Laboratory - CoagulationOrde red By: Donato Trevino on 03-11-2023 PT Coag (PPP) [Time] 12.2 s 9.0-12.9 [facility] Laboratory - UrinalysisOrder ed By: Donato Trevino on 03-11-2023 Hyaline casts LM Ql (Urine sed) None seen [LPF] 0-8 [facility] Leukocytes [#/volume] correc roe for nucleated erythrocytes in Blood by Automated counOrdered By: Naif Pickett on 03-11-2023 WBC corrected for nucl RBC Auto (Bld) [#/Vol] 7.2 10*3/uL 4.1-10.5 [facility] Leukocytes [#/volume] correc roe for nucleated erythrocytes in Blood by Automated counOrdered By: Donato Trevino on 03-11-2023 WBC corrected for nucl RBC Auto (Bld) [#/Vol] 7.7 10*3/uL 4.1-10.5 [facility] Lymphocytes Auto (Bld) [#/Vo l]Ordered By: Naif Pickett on 03-11-2023 Lymphocytes (Bld) [#/Vol] 1.1 10*3/uL 1.00-4.8 [facility] Lymphocytes Auto (Bld) [#/Vo l]Ordered By: Donato Trevino on 03-11-2023 Lymphocytes (Bld) [#/Vol] 1.5 10*3/uL 1.00-4.8 [facility] Lymphocytes/100 WBC Auto (Bl d)Ordered By: Naif Pickett on 03-11-2023 Lymphocytes/100 WBC (Bld) 16.0 % . [facility] Lymphocytes/100 WBC Auto (Bl d)Ordered By: Donato Trevino on 03-11-2023 Lymphocytes/100 WBC (Bld) 19.2 % . [facility] MCH Auto (RBC) [Entitic mass ]Ordered By: Naif Pickett on 03-11-2023 MCH (RBC) [Entitic mass] 30.0 pg 27.5-35.2 [facility] MCH Auto (RBC) [Entitic mass ]Ordered By: Donato Trevino on 03-11-2023 MCH (RBC) [Entitic mass] 29.8 pg 27.5-35.2 [facility] MCHC Auto (RBC) [Mass/Vol]Or dered By: Naif Pickett on 03-11-2023 MCHC (RBC) [Mass/Vol] 35.2 g/dL 32.5-35.6 [facility] MCHC Auto (RBC) [Mass/Vol]Or dered By: Donato Trevino on 03-11-2023 MCHC (RBC) [Mass/Vol] 35.3 g/dL 32.5-35.6 [facility] MCV Auto (RBC) [Entitic vol] Ordered By: Naif Pickett on 03-11-2023 MCV (RBC) [Entitic vol] 85.4 fL 83.5-101 [facility] MCV Auto (RBC) [Entitic vol] Ordered By: Donato Trevino on 03-11-2023 MCV (RBC) [Entitic vol] 84.6 fL 83.5-101 [facility] Monocyte distribution width [Entitic volume] in Blood by AutomatedOrdered By: Donato Trevino on 03-11-2023 Monocyte distribution width Auto (Bld) [Entitic vol] 18.77 % 0.00-20.00 [facility] Monocytes Auto (Bld) [#/Vol] Ordered By: Naif Pickett on 03-11-2023 Monocytes (Bld) [#/Vol] 0.4 10*3/uL 0.0-0.8 [facility] Monocytes Auto (Bld) [#/Vol] Ordered By: Donato Trevino on 03-11-2023 Monocytes (Bld) [#/Vol] 0.5 10*3/uL 0.0-0.8 [facility] Monocytes/100 WBC Auto (Bld) Ordered By: Naif Pickett on 03-11-2023 Monocytes/100 WBC (Bld) 5.7 % . [facility] Monocytes/100 WBC Auto (Bld) Ordered By: Donato Trevino on 03-11-2023 Monocytes/100 WBC (Bld) 7.0 % . [facility] Neutrophils Auto (Bld) [#/Vo l]Ordered By: Naif Pickett on 03-11-2023 Neutrophils (Bld) [#/Vol] 5.5 10*3/uL 1.8-7.7 [facility] Neutrophils Auto (Bld) [#/Vo l]Ordered By: Donato Trevino on 03-11-2023 Neutrophils (Bld) [#/Vol] 5.5 10*3/uL 1.8-7.7 [facility] Neutrophils/100 WBC Auto (Bl d)Ordered By: Naif Pickett on 03-11-2023 Neutrophils/100 WBC (Bld) 76.1 % . [facility] Neutrophils/100 WBC Auto (Bl d)Ordered By: Donato Trevino on 03-11-2023 Neutrophils/100 WBC (Bld) 71.3 % . [facility] Nitrite Test strip Ql (U)Ord ered By: Donato Trevino on 03-11-2023 Nitrite Ql (U) Negative Negative [facility] No Panel InformationOrdered By: Aleisha Foster on 03-11-2023 Estimated GFR (CKD-EPI) > 60.0 mL/Min [facility] Creatinine Clearance (Chem 119.06 [facility] No Panel InformationOrdered By: Donato Trevino on 03-11-2023 Estimated GFR (CKD-EPI) > 60.0 mL/Min [facility] Creatinine Clearance (Chem 114.17 [facility] Nucleated erythrocytes [Pres ence] in Blood by Automated countOrdered By: Naif Pickett on 03-11-2023 Nucleated RBC Auto Ql (Bld) 0.1 /100{WBC} 0-0.5 [facility] Nucleated erythrocytes [Pres ence] in Blood by Automated countOrdered By: Donato Trevino on 03-11-2023 Nucleated RBC Auto Ql (Bld) 0.1 /100{WBC} 0-0.5 [facility] Opiates [Presence] in Urine by Screen methodOrdered By: Naif Pickett on 03-11-2023 Opiates Screen Ql (U) Negative Negative [facility] Phencyclidine Screen Ql (U)O rdered By: Naif Pickett on 03-11-2023 Phencyclidine Ql (U) Negative Negative [facility] Platelet mean volume Auto (B ld) [Entitic vol]Ordered By: Naif Pickett on 03-11-2023 Platelet mean volume (Bld) [Entitic vol] 9.1 fL 6.6-10.1 [facility] Platelet mean volume Auto (B ld) [Entitic vol]Ordered By: Donato Trevino on 03-11-2023 Platelet mean volume (Bld) [Entitic vol] 9.1 fL 6.6-10.1 [facility] Platelet poor plasma interna tional normalized ratio (INR) by coagulation assay (relatOrdered By: Donato Trevino on 03-11-2023 INR Coag (PPP) [Relative time] 1.1 {INR} [facility] Comment on above: INR Therapeutic Rang e A) Pre- and Peroperative OAT started two weeks before surgery. NOT HIP SURGERY: 1.5 - 2.5 HIP SURGERY: 2 - 3B) Primary and secondary prevention of venous THROMBOSIS: 2 - 3C) Active venous thrombosis, pulmonary embolismand prevention of recurrent venous thrombosis: 2 - 3D) Prevention of arterial thromboembolismincluding patients with mechanical heart valves: 3 - 4.5 Platelets Auto (Bld) [#/Vol] Ordered By: Naif Pickett on 03-11-2023 Platelets (Bld) [#/Vol] 212 10*3/uL 150-450 [facility] Platelets Auto (Bld) [#/Vol] Ordered By: Donato Trevino on 03-11-2023 Platelets (Bld) [#/Vol] 228 10*3/uL 150-450 [facility] Potassium [Moles/volume] in Serum or PlasmaOrdered By: Aleisha Foster on 03-11-2023 Potassium [Moles/Vol] 4.2 mmol/L 3.5-5.1 [facility] Potassium [Moles/volume] in Serum or PlasmaOrdered By: Donato Trevino on 03-11-2023 Potassium [Moles/Vol] 4.0 mmol/L 3.5-5.1 [facility] Protein Auto test strip (U) [Mass/Vol]Ordered By: Donato Trevino on 03-11-2023 Protein (U) [Mass/Vol] Negative Negative [facility] Protein [Mass/volume] in Ser um or PlasmaOrdered By: Naif Pickett on 03-11-2023 Protein [Mass/Vol] 6.5 g/dL 6.4-8.9 [facility] RBC Auto (Bld) [#/Vol]Ordere d By: Naif Pickett on 03-11-2023 RBC (Bld) [#/Vol] 5.14 10*6/uL 3.90-5.60 [facility] RBC Auto (Bld) [#/Vol]Ordere d By: Donato Trevino on 03-11-2023 RBC (Bld) [#/Vol] 5.48 10*6/uL 3.90-5.60 [facility] Serum or plasma albumin/glob ulin mass ratioOrdered By: Naif Pickett on 03-11-2023 Albumin/Globulin [Mass ratio] 1.2 {ratio} [facility] Serum or plasma anion gap de terminationOrdered By: Aleisha Foster on 03-11-2023 Anion gap [Moles/Vol] 9.9 mmol/L 6.0-15.0 [facility] Serum or plasma anion gap de terminationOrdered By: Donato Trevino on 03-11-2023 Anion gap [Moles/Vol] TNP [facility] Comment on above: Test not performed Serum or plasma high density lipoprotein (HDL) cholesterol measurementOrdered By: Naif Pickett on 03-11-2023 Cholesterol in HDL [Mass/Vol] 36 mg/dL 23-92 [facility] Comment on above: HDL CHOL ATP-III CLA SSIFICATION Cardiovascular RiskHDL > or equal to 60 mg/dL LOWHDL < 40 mg/dL HIGH Serum or plasma total choles terol/high density lipoprotein (HDL) cholesterol mass ratOrdered By: Naif Pickett on 03-11-2023 Cholesterol.total/Chol esterol in HDL [Mass ratio] 3.2 {ratio} <5.0 [facility] Sodium [Moles/volume] in Ser um or PlasmaOrdered By: Aleisha Foster on 03-11-2023 Sodium [Moles/Vol] 137 mmol/L 136-145 [facility] Sodium [Moles/volume] in Ser um or PlasmaOrdered By: Donato Trevino on 03-11-2023 Sodium [Moles/Vol] 137 mmol/L 136-145 [facility] Specific gravity Auto test s trip (U) [Rel density]Ordered By: Donato Trevino on 03-11-2023 Specific gravity (U) [Rel density] 1.040 1.001-1.03 0 [facility] Squamous epithelial cells de tection in urine sediment by light microscopyOrdered By: Donato Trevino on 03-11-2023 Epithelial cells.squamous LM Ql (Urine sed) 1-2 [HPF] 0-2 [facility] Triglyceride [Mass/volume] i n Serum or PlasmaOrdered By: Naif Pickett on 03-11-2023 Triglyceride [Mass/Vol] 132 mg/dL 0-149 [facility] Comment on above: TRIG ATP III CLASSIF ICATIONTRIG less than 150 mg/dL NormalTRIG 150-199 mg/dL Borderline highTRIG 200-500 mg/dL High TRIG greater than 500 mg/dL Very highStandard traceable to the Center for Disease Conrtrol and Prevention (CDC) test method. Urea nitrogen [Mass/volume] in Serum or PlasmaOrdered By: Aleisha Foster on 03-11-2023 Urea nitrogen [Mass/Vol] 23 mg/dL 02-25 [facility] Urea nitrogen [Mass/volume] in Serum or PlasmaOrdered By: Donato Trevino on 03-11-2023 Urea nitrogen [Mass/Vol] 26 mg/dL 02-25 [facility] Urine bacteria detection by automated methodOrdered By: Donato Trevino on 03-11-2023 Bacteria Auto Ql (U) None seen None Seen [facility] Urine clarity by refractomet ry automatedOrdered By: Donato Trevino on 03-11-2023 Clarity Refractometry automated (U) Clear Clear [facility] Urine culture routineOrdered By: Donato Trevino on 03-11-2023 Bacteria identified Cx Nom (U) No Growth 2 Days [facility] Urine glucose measurement by automated test strip (mass/volume)Ordered By: Donato Trevino on 03-11-2023 Glucose Auto test strip (U) [Mass/Vol] 500 mg/dL Normal [facility] Urine hemoglobin detection b y automated test stripOrdered By: Donato Trevino on 03-11-2023 Hemoglobin Auto test strip Ql (U) Negative Negative [facility] Urine leukocyte esterase det ection by automated test stripOrdered By: Donato Trevino on 03-11-2023 Leukocyte esterase Auto test strip Ql (U) 3+ Negative [facility] Urobilinogen Auto test strip (U) [Mass/Vol]Ordered By: Donato Trevino on 03-11-2023 Urobilinogen (U) [Mass/Vol] Normal mg/dL Normal [facility] WBC Auto (Bld) [#/Vol]Ordere d By: Naif Pickett on 03-11-2023 WBC (Bld) [#/Vol] 7.2 10*3/uL 4.1-10.5 [facility] WBC Auto (Bld) [#/Vol]Ordere d By: Donato Trevino on 03-11-2023 WBC (Bld) [#/Vol] 7.7 10*3/uL 4.1-10.5 [facility] pH Auto test strip (U)Ordere d By: Donato Trevino on 03-11-2023 pH (U) 5.0 [pH] 5.0-9.0 [facility] Alanine aminotransferase [En zymatic activity/volume] in Serum or PlasmaOrdered By: Jessica Clark on 01-18-2023 ALT [Catalytic activity/Vol] 15 U/L 7-52 [facility] Albumin [Mass/volume] in Ser um or Plasma by Bromocresol green (BCG) dye binding methoOrdered By: Jessica Clark on 01-18-2023 Albumin BCG dye [Mass/Vol] 4.4 g/dL 3.5-5.7 [facility] Alkaline phosphatase [Enzyma tic activity/volume] in Serum or PlasmaOrdered By: Jessica Clark on 01-18-2023 ALP [Catalytic activity/Vol] 102 U/L 34-104 [facility] Aspartate aminotransferase [ Enzymatic activity/volume] in Serum or PlasmaOrdered By: Jessica Clark on 01-18-2023 AST [Catalytic activity/Vol] 14 U/L 13-39 [facility] Basophils Auto (Bld) [#/Vol] Ordered By: Jessica Clark on 01-18-2023 Basophils (Bld) [#/Vol] 0.1 10*3/uL 0.0-0.2 [facility] Basophils/100 WBC Auto (Bld) Ordered By: Jessica Clark on 01-18-2023 Basophils/100 WBC (Bld) 1.1 % . [facility] Bilirubin.total [Mass/volume ] in Serum or PlasmaOrdered By: Jessica Clark on 01-18-2023 Bilirubin [Mass/Vol] 0.7 mg/dL 0.3-1.0 [facility] Calcium [Mass/volume] in Ser um or PlasmaOrdered By: Jessica Clark on 01-18-2023 Calcium [Mass/Vol] 9.2 mg/dL 8.6-10.3 [facility] Carbon dioxide, total [Moles /volume] in Serum or PlasmaOrdered By: Jessica Clark on 01-18-2023 CO2 [Moles/Vol] 22.0 mmol/L 21.0-31.0 [facility] Chloride [Moles/volume] in S miguel or PlasmaOrdered By: Jessica Clark on 01-18-2023 Chloride [Moles/Vol] 106 mmol/L 98-107 [facility] Creatinine [Mass/volume] in Serum or PlasmaOrdered By: Jessica Clark on 01-18-2023 Creatinine [Mass/Vol] 0.96 mg/dL 0.70-1.30 [facility] Eosinophils Auto (Bld) [#/Vo l]Ordered By: Jessica Clark on 01-18-2023 Eosinophils (Bld) [#/Vol] 0.1 10*3/uL 0.0-0.45 [facility] Eosinophils/100 WBC Auto (Bl d)Ordered By: Jessica Clark on 01-18-2023 Eosinophils/100 WBC (Bld) 1.6 % . [facility] Erythrocyte distribution wid th Auto (RBC) [Ratio]Ordered By: Jessica Clark on 01-18-2023 Erythrocyte distribution width (RBC) [Ratio] 13.6 % 12.0-14.8 [facility] Globulin Calc (S) [Mass/Vol] Ordered By: Jessica Clark on 01-18-2023 Globulin (S) [Mass/Vol] 3.0 g/dL [facility] Glucose [Mass/volume] in Ser um or PlasmaOrdered By: Jessica Clark on 01-18-2023 Glucose [Mass/Vol] 196 mg/dL 70-100 [facility] Comment on above: ADA recommended refe rence rangeRandom Glucose Reference Range is dependent on time and content of last meal. Glucose of more than 200 mg/dL in a nonstressed, ambulatory subject supports the diagnosis of Diabetes Mellitus. Hematocrit Auto (Bld) [Volum e fraction]Ordered By: Jessica Clark on 01-18-2023 Hematocrit (Bld) [Volume fraction] 47.5 % 38.8-50.0 [facility] Hemoglobin [Mass/volume] in BloodOrdered By: Jessica Clark on 01-18-2023 Hemoglobin (Bld) [Mass/Vol] 17.0 g/dL 13.0-17.0 [facility] Leukocytes [#/volume] correc roe for nucleated erythrocytes in Blood by Automated counOrdered By: Jessica Clark on 01-18-2023 WBC corrected for nucl RBC Auto (Bld) [#/Vol] 6.3 10*3/uL 4.1-10.5 [facility] Lymphocytes Auto (Bld) [#/Vo l]Ordered By: Jessica Clark on 01-18-2023 Lymphocytes (Bld) [#/Vol] 1.4 10*3/uL 1.00-4.8 [facility] Lymphocytes/100 WBC Auto (Bl d)Ordered By: Jessica Clark on 01-18-2023 Lymphocytes/100 WBC (Bld) 22.7 % . [facility] MCH Auto (RBC) [Entitic mass ]Ordered By: Jessica Clark on 01-18-2023 MCH (RBC) [Entitic mass] 30.4 pg 27.5-35.2 [facility] MCHC Auto (RBC) [Mass/Vol]Or dered By: Jessica Clark on 01-18-2023 MCHC (RBC) [Mass/Vol] 35.9 g/dL 32.5-35.6 [facility] MCV Auto (RBC) [Entitic vol] Ordered By: Jessica Clark on 01-18-2023 MCV (RBC) [Entitic vol] 84.8 fL 83.5-101 [facility] Monocyte distribution width [Entitic volume] in Blood by AutomatedOrdered By: Jessica Clark on 01-18-2023 Monocyte distribution width Auto (Bld) [Entitic vol] 18.10 % 0.00-20.00 [facility] Monocytes Auto (Bld) [#/Vol] Ordered By: Jessica Clark on 01-18-2023 Monocytes (Bld) [#/Vol] 0.4 10*3/uL 0.0-0.8 [facility] Monocytes/100 WBC Auto (Bld) Ordered By: Jessica Clark on 01-18-2023 Monocytes/100 WBC (Bld) 7.4 % . [facility] Neutrophils Auto (Bld) [#/Vo l]Ordered By: Jessica Clark on 01-18-2023 Neutrophils (Bld) [#/Vol] 4.0 10*3/uL 1.8-7.7 [facility] Neutrophils/100 WBC Auto (Bl d)Ordered By: Jessica Clark on 01-18-2023 Neutrophils/100 WBC (Bld) 67.2 % . [facility] No Panel InformationOrdered By: Jessica Clark on 01-18-2023 Estimated GFR (CKD-EPI) > 60.0 mL/Min [facility] Creatinine Clearance (Chem 120.03 [facility] Nucleated erythrocytes [Pres ence] in Blood by Automated countOrdered By: Jessica Clark on 01-18-2023 Nucleated RBC Auto Ql (Bld) 0.5 /100{WBC} 0-0.5 [facility] Platelet adequacy [Presence] in Blood by Light microscopyOrdered By: Jessica Clark on 01-18-2023 Platelets LM Ql (Bld) Normal Normal [facility] Platelet mean volume Auto (B ld) [Entitic vol]Ordered By: Jessica Clark on 01-18-2023 Platelet mean volume (Bld) [Entitic vol] 9.1 fL 6.6-10.1 [facility] Platelet morphology finding [Identifier] in BloodOrdered By: Jessica Clark on 01-18-2023 Platelet morphology finding Nom (Bld) Normal Normal [facility] Platelets Auto (Bld) [#/Vol] Ordered By: Jessica Clark on 01-18-2023 Platelets (Bld) [#/Vol] 237 10*3/uL 150-450 [facility] Potassium [Moles/volume] in Serum or PlasmaOrdered By: Jessica Clark on 01-18-2023 Potassium [Moles/Vol] 3.7 mmol/L 3.5-5.1 [facility] Protein [Mass/volume] in Ser um or PlasmaOrdered By: Jessica Clark on 01-18-2023 Protein [Mass/Vol] 7.4 g/dL 6.4-8.9 [facility] RBC Auto (Bld) [#/Vol]Ordere d By: Jessica Clark on 01-18-2023 RBC (Bld) [#/Vol] 5.60 10*6/uL 3.90-5.60 [facility] RBC morphologyOrdered By: Poli Clark on 01-18-2023 RBC morphology finding Nom (Bld) Normal Normal [facility] Serum or plasma albumin/glob ulin mass ratioOrdered By: Jessica Clark on 01-18-2023 Albumin/Globulin [Mass ratio] 1.5 {ratio} [facility] Serum or plasma anion gap de terminationOrdered By: Jessica Clark on 01-18-2023 Anion gap [Moles/Vol] 13.7 mmol/L 6.0-15.0 [facility] Sodium [Moles/volume] in Ser um or PlasmaOrdered By: Jessica Clark on 01-18-2023 Sodium [Moles/Vol] 138 mmol/L 136-145 [facility] Urea nitrogen [Mass/volume] in Serum or PlasmaOrdered By: Jessica Clark on 01-18-2023 Urea nitrogen [Mass/Vol] 17 mg/dL 7-25 [facility] WBC Auto (Bld) [#/Vol]Ordere d By: Jessica Clark on 01-18-2023 WBC (Bld) [#/Vol] 6.3 10*3/uL 4.1-10.5 [facility] Glucose Glucometer (BldC) [M ass/Vol]Ordered By: CLARISSA CALDERA on 12-30-2022 Glucose [Mass/Vol] 261 mg/dL [facility] Comment on above: Random Glucose Refer ence Range is dependent on time and content of last meal. Glucose of more than 200 mg/dL in a nonstressed, ambulatory subject supports the diagnosis of Diabetes Mellitus. Alanine aminotransferase [En zymatic activity/volume] in Serum or PlasmaOrdered By: SRIKANTH HERNANDEZ on 12-09-2022 ALT [Catalytic activity/Vol] 10 U/L 7-52 [facility] Albumin [Mass/volume] in Ser um or Plasma by Bromocresol green (BCG) dye binding methoOrdered By: SRIKANTH HERNANDEZ on 12-09-2022 Albumin BCG dye [Mass/Vol] 3.9 g/dL 3.5-5.7 [facility] Alkaline phosphatase [Enzyma tic activity/volume] in Serum or PlasmaOrdered By: SRIKANTH HERNANDEZ on 12-09-2022 ALP [Catalytic activity/Vol] 104 U/L 34-104 [facility] Aspartate aminotransferase [ Enzymatic activity/volume] in Serum or PlasmaOrdered By: SRIKANTH HERNANDEZ on 12-09-2022 AST [Catalytic activity/Vol] 8 U/L 13-39 [facility] Basophils Auto (Bld) [#/Vol] Ordered By: Augustina Grace on 12-09-2022 Basophils (Bld) [#/Vol] 0.1 10*3/uL 0.0-0.2 [facility] Basophils/100 WBC Auto (Bld) Ordered By: Augustina Grace on 12-09-2022 Basophils/100 WBC (Bld) 0.8 % . [facility] Bilirubin.total [Mass/volume ] in Serum or PlasmaOrdered By: SRIKANTH HERNANDEZ on 12-09-2022 Bilirubin [Mass/Vol] 0.6 mg/dL 0.3-1.0 [facility] Calcium [Mass/volume] in Ser um or PlasmaOrdered By: SRIKANTH HERNANDEZ on 12-09-2022 Calcium [Mass/Vol] 8.7 mg/dL 8.6-10.3 [facility] Carbon dioxide, total [Moles /volume] in Serum or PlasmaOrdered By: SRIKANTH HERNANDEZ on 12-09-2022 CO2 [Moles/Vol] 25.0 mmol/L 21.0-31.0 [facility] Chloride [Moles/volume] in S miguel or PlasmaOrdered By: SRIKANTH HERNANDEZ on 12-09-2022 Chloride [Moles/Vol] 103 mmol/L 98-107 [facility] Creatinine [Mass/volume] in Serum or PlasmaOrdered By: SRIKANTH HERNANDEZ on 12-09-2022 Creatinine [Mass/Vol] 0.83 mg/dL 0.70-1.30 [facility] Eosinophils Auto (Bld) [#/Vo l]Ordered By: Augustina Grace on 12-09-2022 Eosinophils (Bld) [#/Vol] 0.1 10*3/uL 0.0-0.45 [facility] Eosinophils/100 WBC Auto (Bl d)Ordered By: Augustina Grace on 12-09-2022 Eosinophils/100 WBC (Bld) 2.2 % . [facility] Erythrocyte distribution wid th Auto (RBC) [Ratio]Ordered By: Augustina Grace on 12-09-2022 Erythrocyte distribution width (RBC) [Ratio] 14.0 % 12.0-14.8 [facility] Globulin Calc (S) [Mass/Vol] Ordered By: SRIKANTH HERNANDEZ on 12-09-2022 Globulin (S) [Mass/Vol] 2.6 g/dL [facility] Glucose [Mass/volume] in Ser um or PlasmaOrdered By: SRIKANTH HERNANDEZ on 12-09-2022 Glucose [Mass/Vol] 326 mg/dL 70-100 [facility] Comment on above: ADA recommended refe rence rangeRandom Glucose Reference Range is dependent on time and content of last meal. Glucose of more than 200 mg/dL in a nonstressed, ambulatory subject supports the diagnosis of Diabetes Mellitus. Glucose mean value [Mass/vol ume] in Blood Estimated from glycated hemoglobinOrdered By: SRIKANTH HERNANDEZ on 12-09-2022 Average glucose Estimated from glycated hemoglobin (Bld) [Mass/Vol] 289 mg/dL [facility] Hematocrit Auto (Bld) [Volum e fraction]Ordered By: Augustina Grace on 12-09-2022 Hematocrit (Bld) [Volume fraction] 45.6 % 38.8-50.0 [facility] Hemoglobin A1c percentageOrd ered By: SRIKANTH HERNANDEZ on 12-09-2022 HbA1c (Bld) [Mass fraction] 11.7 % 4.3-5.6 [facility] Comment on above: Increased risk for d iabetes: 5.7 - 6.4diabetes: >6.4glycemic control for adults with diabetes: <7.0 Hemoglobin [Mass/volume] in BloodOrdered By: Augustina Grace on 12-09-2022 Hemoglobin (Bld) [Mass/Vol] 15.6 g/dL 13.0-17.0 [facility] Leukocytes [#/volume] correc roe for nucleated erythrocytes in Blood by Automated counOrdered By: Augustina Grace on 12-09-2022 WBC corrected for nucl RBC Auto (Bld) [#/Vol] 6.7 10*3/uL 4.1-10.5 [facility] Lymphocytes Auto (Bld) [#/Vo l]Ordered By: Augustina Grace on 12-09-2022 Lymphocytes (Bld) [#/Vol] 1.3 10*3/uL 1.00-4.8 [facility] Lymphocytes/100 WBC Auto (Bl d)Ordered By: Augustina Grace on 12-09-2022 Lymphocytes/100 WBC (Bld) 19.0 % . [facility] MCH Auto (RBC) [Entitic mass ]Ordered By: Augustina Grace on 12-09-2022 MCH (RBC) [Entitic mass] 29.6 pg 27.5-35.2 [facility] MCHC Auto (RBC) [Mass/Vol]Or dered By: Augustina Grace on 12-09-2022 MCHC (RBC) [Mass/Vol] 34.3 g/dL 32.5-35.6 [facility] MCV Auto (RBC) [Entitic vol] Ordered By: Augustina Grace on 12-09-2022 MCV (RBC) [Entitic vol] 86.3 fL 83.5-101 [facility] Monocytes Auto (Bld) [#/Vol] Ordered By: Augustina Grace on 12-09-2022 Monocytes (Bld) [#/Vol] 0.4 10*3/uL 0.0-0.8 [facility] Monocytes/100 WBC Auto (Bld) Ordered By: Augustina Grace on 12-09-2022 Monocytes/100 WBC (Bld) 6.3 % . [facility] Neutrophils Auto (Bld) [#/Vo l]Ordered By: Augustina Grace on 12-09-2022 Neutrophils (Bld) [#/Vol] 4.8 10*3/uL 1.8-7.7 [facility] Neutrophils/100 WBC Auto (Bl d)Ordered By: Augustina Grace on 12-09-2022 Neutrophils/100 WBC (Bld) 71.7 % . [facility] No Panel InformationOrdered By: SRIKANTH HERNANDEZ on 12-09-2022 Estimated GFR (CKD-EPI) > 60.0 mL/Min [facility] Creatinine Clearance (Chem N/A [facility] Nucleated erythrocytes [Pres ence] in Blood by Automated countOrdered By: Augustina Grace on 12-09-2022 Nucleated RBC Auto Ql (Bld) 0.2 /100{WBC} 0-0.5 [facility] Platelet mean volume Auto (B ld) [Entitic vol]Ordered By: Augustina Grace on 12-09-2022 Platelet mean volume (Bld) [Entitic vol] 8.4 fL 6.6-10.1 [facility] Platelets Auto (Bld) [#/Vol] Ordered By: Augustina Grace on 12-09-2022 Platelets (Bld) [#/Vol] 283 10*3/uL 150-450 [facility] Potassium [Moles/volume] in Serum or PlasmaOrdered By: SRIKANTH HERNANDEZ on 12-09-2022 Potassium [Moles/Vol] 3.8 mmol/L 3.5-5.1 [facility] Protein [Mass/volume] in Ser um or PlasmaOrdered By: SRIKANTH HERNANDEZ on 12-09-2022 Protein [Mass/Vol] 6.5 g/dL 6.4-8.9 [facility] RBC Auto (Bld) [#/Vol]Ordere d By: Augustina Grace on 12-09-2022 RBC (Bld) [#/Vol] 5.28 10*6/uL 3.90-5.60 [facility] Serum or plasma albumin/glob ulin mass ratioOrdered By: SRIKANTH HERNANDEZ on 12-09-2022 Albumin/Globulin [Mass ratio] 1.5 {ratio} [facility] Serum or plasma anion gap de terminationOrdered By: SRIKANTH HERNANDEZ on 12-09-2022 Anion gap [Moles/Vol] 12.8 mmol/L 6.0-15.0 [facility] Sodium [Moles/volume] in Ser um or PlasmaOrdered By: SRIKANTH HERNANDEZ on 12-09-2022 Sodium [Moles/Vol] 137 mmol/L 136-145 [facility] Urea nitrogen [Mass/volume] in Serum or PlasmaOrdered By: SRIKANTH HERNANDEZ on 12-09-2022 Urea nitrogen [Mass/Vol] 11 mg/dL 7-25 [facility] WBC Auto (Bld) [#/Vol]Ordere d By: Augustina Grace on 12-09-2022 WBC (Bld) [#/Vol] 6.7 10*3/uL 4.1-10.5 [facility] Albumin [Mass/volume] in Ser um or PlasmaOrdered By: Arpan Ross on 07-20-2022 Albumin [Mass/Vol] 3.5 g/dL 3.2-5.5 [facility] Basophils Auto (Bld) [#/Vol] Ordered By: Arpan Ross on 07-20-2022 Basophils (Bld) [#/Vol] 0.1 10*3/uL 0.0-0.2 [facility] Basophils/100 WBC Auto (Bld) Ordered By: Arpan Ross on 07-20-2022 Basophils/100 WBC (Bld) 0.9 % . [facility] Creatinine and Glomerular fi ltration rate.predicted panel (S/P/Bld)Ordered By: Arpan Ross on 07-20-2022 Creatinine [Mass/Vol] 1.03 mg/dL 0.64-1.27 [facility] Eosinophils Auto (Bld) [#/Vo l]Ordered By: Arpan Ross on 07-20-2022 Eosinophils (Bld) [#/Vol] 0.1 10*3/uL 0.0-0.45 [facility] Eosinophils/100 WBC Auto (Bl d)Ordered By: Arpan Ross on 07-20-2022 Eosinophils/100 WBC (Bld) 2.1 % . [facility] Erythrocyte distribution wid th Auto (RBC) [Ratio]Ordered By: Arpan Ross on 07-20-2022 Erythrocyte distribution width (RBC) [Ratio] 13.0 % 12.0-14.8 [facility] Estimated glomerular filtrat ion rate (GFR) non- AmericanOrdered By: Arpan Ross on 07-20-2022 GFR/1.73 sq M.predicted among non-blacks MDRD (S/P/Bld) [Vol rate/Area] > 60 mL/Min [facility] Globulin Calc (S) [Mass/Vol] Ordered By: Arpan Ross on 07-20-2022 Globulin (S) [Mass/Vol] 3.2 g/dL [facility] Hematocrit Auto (Bld) [Volum e fraction]Ordered By: Arpan Ross on 07-20-2022 Hematocrit (Bld) [Volume fraction] 43.5 % 38.8-50.0 [facility] Hemoglobin [Mass/volume] in BloodOrdered By: Arpan Ross on 07-20-2022 Hemoglobin (Bld) [Mass/Vol] 15.2 g/dL 13.0-17.0 [facility] Leukocytes [#/volume] correc roe for nucleated erythrocytes in Blood by Automated counOrdered By: Arpan Ross on 07-20-2022 WBC corrected for nucl RBC Auto (Bld) [#/Vol] 7.0 10*3/uL 4.1-10.5 [facility] Lymphocytes Auto (Bld) [#/Vo l]Ordered By: Arpan Ross on 07-20-2022 Lymphocytes (Bld) [#/Vol] 1.4 10*3/uL 1.00-4.8 [facility] Lymphocytes/100 WBC Auto (Bl d)Ordered By: Arpan Ross on 07-20-2022 Lymphocytes/100 WBC (Bld) 19.5 % . [facility] MCH Auto (RBC) [Entitic mass ]Ordered By: Arpan Ross on 07-20-2022 MCH (RBC) [Entitic mass] 30.8 pg 27.5-35.2 [facility] MCHC Auto (RBC) [Mass/Vol]Or dered By: Arpan Ross on 07-20-2022 MCHC (RBC) [Mass/Vol] 35.0 g/dL 32.5-35.6 [facility] MCV Auto (RBC) [Entitic vol] Ordered By: Arpan Ross on 07-20-2022 MCV (RBC) [Entitic vol] 88.3 fL 83.5-101 [facility] Monocyte distribution width [Entitic volume] in Blood by AutomatedOrdered By: Arpan Ross on 07-20-2022 Monocyte distribution width Auto (Bld) [Entitic vol] 20.25 % 0.00-20.00 [facility] Comment on above: For adults in ED, MD W > 20.0 may be associated with a higher risk of sepsis during the first 12 hrs of hospital admission Monocytes Auto (Bld) [#/Vol] Ordered By: Arpan Ross on 07-20-2022 Monocytes (Bld) [#/Vol] 0.6 10*3/uL 0.0-0.8 [facility] Monocytes/100 WBC Auto (Bld) Ordered By: Arpan Ross on 07-20-2022 Monocytes/100 WBC (Bld) 8.5 % . [facility] Neutrophils Auto (Bld) [#/Vo l]Ordered By: Arpan Ross on 07-20-2022 Neutrophils (Bld) [#/Vol] 4.8 10*3/uL 1.8-7.7 [facility] Neutrophils/100 WBC Auto (Bl d)Ordered By: Arpan Ross on 07-20-2022 Neutrophils/100 WBC (Bld) 69.0 % . [facility] No Panel InformationOrdered By: Arpan Ross on 07-20-2022 Estimated GFR () > 60 mL/Min [facility] Comment on above: GFR estimated refere nce range: According to KDOQI guidelines, <60 ml/min/1.73m2 is sufficient to diagnose a patient with chronic kidney disease. Pharmacy Creatinine Clearance (Chem 116.67 [facility] Nucleated erythrocytes [Pres ence] in Blood by Automated countOrdered By: Arpan Ross on 07-20-2022 Nucleated RBC Auto Ql (Bld) 0.3 /100{WBC} 0-0.5 [facility] Platelet mean volume Auto (B ld) [Entitic vol]Ordered By: Arpan Ross on 07-20-2022 Platelet mean volume (Bld) [Entitic vol] 8.8 fL 6.6-10.1 [facility] Platelets Auto (Bld) [#/Vol] Ordered By: Arpan Ross on 07-20-2022 Platelets (Bld) [#/Vol] 248 10*3/uL 150-450 [facility] Protein [Mass/volume] in Ser um or PlasmaOrdered By: Arpan Ross on 07-20-2022 Protein [Mass/Vol] 6.7 g/dL 6.1-7.9 [facility] RBC Auto (Bld) [#/Vol]Ordere d By: Arpan Ross on 07-20-2022 RBC (Bld) [#/Vol] 4.93 10*6/uL 3.90-5.60 [facility] Serum or plasma alanine parham otransferase measurement without P-5'-P (enzymatic activiOrdered By: Arpan Ross on 07-20-2022 ALT No additional P-5'-P [Catalytic activity/Vol] 24 U/L 10-60 [facility] Serum or plasma albumin/glob ulin mass ratioOrdered By: Arpan Ross on 07-20-2022 Albumin/Globulin [Mass ratio] 1.1 {ratio} [facility] Serum or plasma alkaline jackson sphatase measurement (enzymatic activity/volume)Ordered By: Arpan Ross on 07-20-2022 ALP [Catalytic activity/Vol] 109 U/L 32-92 [facility] Serum or plasma anion gap de terminationOrdered By: Arpan Ross on 07-20-2022 Anion gap [Moles/Vol] 13.0 mmol/L 6.0-15.0 [facility] Serum or plasma aspartate am inotransferase measurement (enzymatic activity/volume)Ordered By: Arpan Ross on 07-20-2022 AST [Catalytic activity/Vol] 19 U/L 10-42 [facility] Serum or plasma calcium jama urement (mass/volume)Ordered By: Arpan Ross on 07-20-2022 Calcium [Mass/Vol] 8.9 mg/dL 8.2-10.2 [facility] Serum or plasma chloride shanice surement (moles/volume)Ordered By: Arpan Ross on 07-20-2022 Chloride [Moles/Vol] 102 mmol/L 95-114 [facility] Serum or plasma ethanol jama urement (mass/volume)Ordered By: Arpan Ross on 07-20-2022 Ethanol [Mass/Vol] mg/dL [facility] Ethanol [Mass/Vol] TNP [facility] Comment on above: Test not performed Serum or plasma glucose jama urement (mass/volume)Ordered By: Arpan Ross on 07-20-2022 Glucose [Mass/Vol] 315 mg/dL 70-100 [facility] Comment on above: ADA recommended refe rence rangeRandom Glucose Reference Range is dependent on time and content of last meal. Glucose of more than 200 mg/dL in a nonstressed, ambulatory subject supports the diagnosis of Diabetes Mellitus. Serum or plasma potassium me asurement (moles/volume)Ordered By: Arpan Ross on 07-20-2022 Potassium [Moles/Vol] 3.8 mmol/L 3.5-5.1 [facility] Serum or plasma sodium measu rement (moles/volume)Ordered By: Arpan Ross on 07-20-2022 Sodium [Moles/Vol] 136 mmol/L 136-146 [facility] Serum or plasma total biliru bin measurement (mass/volume)Ordered By: Arpan Ross on 07-20-2022 Bilirubin [Mass/Vol] 0.7 mg/dL 0.3-1.2 [facility] Serum or plasma total carbon dioxide measurement (moles/volume)Ordered By: Arpan Ross on 07-20-2022 CO2 [Moles/Vol] 24.8 mmol/L 22.0-30.0 [facility] Serum or plasma urea nitroge n measurement (mass/volume)Ordered By: Arpan Ross on 07-20-2022 Urea nitrogen [Mass/Vol] 11 mg/dL 9 [facility] WBC Auto (Bld) [#/Vol]Ordere d By: Arpan Ross on 07-20-2022 WBC (Bld) [#/Vol] 7.0 10*3/uL 4.1-10.5 [facility] Albumin [Mass/volume] in Ser um or PlasmaOrdered By: Augustina Grace on 05-01-2022 Albumin [Mass/Vol] 3.9 g/dL 3.2-5.5 [facility] Basophils Auto (Bld) [#/Vol] Ordered By: Augustina Grace on 05-01-2022 Basophils (Bld) [#/Vol] 0.0 10*3/uL 0.0-0.2 [facility] Basophils/100 WBC Auto (Bld) Ordered By: Augustina Grace on 05-01-2022 Basophils/100 WBC (Bld) 0.6 % . [facility] Blood hemoglobin measurement (mass/volume)Ordered By: Augustina Grace on 05-01-2022 Hemoglobin (Bld) [Mass/Vol] 15.2 g/dL 13.0-17.0 [facility] Blood leukocytes automated c ount (number/volume)Ordered By: Augustina Grace on 05-01-2022 WBC (Bld) [#/Vol] 6.1 10*3/uL 4.5-11.0 [facility] Creatinine and Glomerular fi ltration rate.predicted panel (S/P/Bld)Ordered By: Augustina Grace on 05-01-2022 Creatinine [Mass/Vol] 1.54 mg/dL 0.64-1.27 [facility] Eosinophils Auto (Bld) [#/Vo l]Ordered By: Augustina Grace on 05-01-2022 Eosinophils (Bld) [#/Vol] 0.1 10*3/uL 0.0-0.45 [facility] Eosinophils/100 WBC Auto (Bl d)Ordered By: Augustina Grace on 05-01-2022 Eosinophils/100 WBC (Bld) 1.9 % . [facility] Erythrocyte distribution wid th Auto (RBC) [Ratio]Ordered By: Augustina Grace on 05-01-2022 Erythrocyte distribution width (RBC) [Ratio] 13.0 % 12.0-14.8 [facility] Estimated glomerular filtrat ion rate (GFR) non- AmericanOrdered By: Augustina Grace on 05-01-2022 GFR/1.73 sq M.predicted among non-blacks MDRD (S/P/Bld) [Vol rate/Area] 48 mL/Min [facility] Globulin Calc (S) [Mass/Vol] Ordered By: Augustina Grace on 05-01-2022 Globulin (S) [Mass/Vol] 3.1 g/dL [facility] HIV 1 and HIV-2 antibody ass ay with HIV-1 p24 antigen detectionOrdered By: Augustina Grace on 05-01-2022 HIV 1+2 Ab+HIV1 p24 Ag IA Ql Non-Reactive Non Reactive [facility] Comment on above: HIV NegativeHIV-1/HI V-2 antibodies and HIV-1 p24 antigen were NOTdetected. There is no laboratory evidence of HIV infection. Hematocrit Auto (Bld) [Volum e fraction]Ordered By: Augustina Grace on 05-01-2022 Hematocrit (Bld) [Volume fraction] 44.4 % 38.8-50.0 [facility] Hepatitis B virus surface Ag [Presence] in Serum or Plasma by ImmunoassayOrdered By: Augustina Grace on 05-01-2022 HBV surface Ag IA Ql Negative Negative [facility] Hepatitis C virus RNA [Units /volume] (viral load) in Serum or Plasma by BOYD with probOrdered By: Augustina Grace on 05-01-2022 HCV RNA BOYD+probe Qn N/A [facility] Hepatitis C virus RNA [log u nits/volume] (viral load) in Serum or Plasma by BOYD withOrdered By: Augustina Grace on 05-01-2022 HCV RNA BOYD+probe [Log units/Vol] N/A [facility] IgG [Mass/volume] in Serum o r PlasmaOrdered By: Augustina Grace on 05-01-2022 IgG [Mass/Vol] 876 mg/dL 603-1613 [facility] IgM [Mass/volume] in Serum o r PlasmaOrdered By: Augustina Grace on 05-01-2022 IgM [Mass/Vol] 51 mg/dL 20-172 [facility] Comment on above: Performed at: [facility] [address] [id number] Director: Yury Hernandez PhD, Phone: [phone] MEAGHAN virus antibody assayOrder ed By: Augustina Grace on 05-01-2022 MEAGHAN virus Ab IA Ql Negative . [facility] Comment on above: Index interpretive c riteria: <0.20 negative 0.20-0.40 indeterminate >0.40 positive Laboratory - Hematology and Cell countsOrdered By: Augustina Grace on 05-01-2022 Nucleated RBC/100 WBC (Bld) [Ratio] 0.1 % 0-0.5 [facility] Lymphocytes Auto (Bld) [#/Vo l]Ordered By: Augustina Grace on 05-01-2022 Lymphocytes (Bld) [#/Vol] 1.2 10*3/uL 1.00-4.8 [facility] Lymphocytes/100 WBC Auto (Bl d)Ordered By: Augustina Grace on 05-01-2022 Lymphocytes/100 WBC (Bld) 19.9 % . [facility] MCH Auto (RBC) [Entitic mass ]Ordered By: Augustina Grace on 05-01-2022 MCH (RBC) [Entitic mass] 30.7 pg 27.5-35.2 [facility] MCHC Auto (RBC) [Mass/Vol]Or dered By: Augustina Grace on 05-01-2022 MCHC (RBC) [Mass/Vol] 34.3 g/dL 32.5-35.6 [facility] MCV Auto (RBC) [Entitic vol] Ordered By: Augustina Grace on 05-01-2022 MCV (RBC) [Entitic vol] 89.4 fL 83.5-101 [facility] Monocytes Auto (Bld) [#/Vol] Ordered By: Augustina Lesly on 05-01-2022 Monocytes (Bld) [#/Vol] 0.5 10*3/uL 0.0-0.8 [facility] Monocytes/100 WBC Auto (Bld) Ordered By: Augustina Grace on 05-01-2022 Monocytes/100 WBC (Bld) 8.2 % . [facility] Neutrophils Auto (Bld) [#/Vo l]Ordered By: Augustina Lesly on 05-01-2022 Neutrophils (Bld) [#/Vol] 4.2 10*3/uL 1.8-7.7 [facility] Neutrophils/100 WBC Auto (Bl d)Ordered By: Augustina Grace on 05-01-2022 Neutrophils/100 WBC (Bld) 69.4 % . [facility] No Panel InformationOrdered By: Augustina Grace on 05-01-2022 Estimated GFR () 58 mL/Min [facility] Comment on above: GFR estimated refere nce range: According to KDOQI guidelines, <60 ml/min/1.73m2 is sufficient to diagnose a patient with chronic kidney disease. Hepatitis A IgM Antibody Negative Negative [facility] Hepatitis B Core IgM Antibody Negative Negative [facility] Hepatitis C Interpretation See comment . [facility] Comment on above: NegativeNot infected with HCV, unless recent infection issuspected or other evidence exists to indicate HCVinfection.Performed at: [facility] [id number] Director: Yury Hernandez PhD, Phone: [phone] Hepatitis C RNA Quantitative N/A [facility] MEAGHAN Virus Antibody Index (GEOVANNY) 0.17 . [facility] Comment on above: Comment:Results veri fied by repeat testing. MEAGHAN Virus DNA Report Status See comment . [facility] Comment on above: Negative: Antibodies to JCV not detected.Indeterminate: Low level reactivity detected, seeInhibition Assay result to follow for thefinal antibody result.Positive: Antibodies to MEAGHAN virus (JCV) detectedindicating the patient has been exposed to JCV atan undetermined time.The STRATIFY JCV Antibody Test is an enzyme-linkedimmunosorbent assay (GEOVANNY) designed to detect JCVantibodies to help identify individuals who have beenexposed to the virus. Samples with low level reactivity inthe detection assay are retested in a confirmation(inhibition) assay to confirm presence or absence of JCV-specific antibodies.Retrospective analyses of post marketing data from varioussources, including observational studies and spontaneousreports obtained worldwide, suggest that the risk ofdeveloping PML may be associated with relative levels ofserum anti-JCV antibody as measured by anti-JCV antibodyindex.1 . 1TYSABRI (natalizumab) [place] Prescribing Information. MEAGHAN Virus DNA Special Information See comment . [facility] Comment on above: Positive: Antibodies to MEAGHAN virus (JCV) detected indicating the patient has been exposed to JCV at an undetermined timeNegative: Antibodies to JCV not detectedPerformed at: [id number] [place] [id number] Director: Samantha Ruiz MD, Phone: [phone] Pharmacy Creatinine Clearance (Chem N/A [facility] Platelet mean volume Auto (B ld) [Entitic vol]Ordered By: Augustina Grace on 05-01-2022 Platelet mean volume (Bld) [Entitic vol] 9.1 fL 6.6-10.1 [facility] Platelets Auto (Bld) [#/Vol] Ordered By: Augustina Grace on 05-01-2022 Platelets (Bld) [#/Vol] 239 10*3/uL 150-450 [facility] Protein [Mass/volume] in Ser um or PlasmaOrdered By: Augustina Grace on 05-01-2022 Protein [Mass/Vol] 7.0 g/dL 6.1-7.9 [facility] RBC Auto (Bld) [#/Vol]Ordere d By: Augustina Grace on 05-01-2022 RBC (Bld) [#/Vol] 4.96 10*6/uL 3.90-5.60 [facility] Serum Varicella zoster virus IgG antibody assay by immunoassay (units/volume)Ordered By: Augustina Grace on 05-01-2022 VZV IgG IA Qn (S) 3561 index Immune >165 [facility] Comment on above: Negative <135 Equivo nusrat 135 - 165 Positive >165A positive result generally indicates exposure to thepathogen or administration of specific immunoglobulins,but it is not indication of active infection or stageof disease.Performed at: - [facility] [id number] Director: Yury Hernandez PhD, Phone: [phone] Serum or plasma alanine parham otransferase measurement without P-5'-P (enzymatic activiOrdered By: Augustina Grace on 05-01-2022 ALT No additional P-5'-P [Catalytic activity/Vol] 26 U/L 10-60 [facility] Serum or plasma albumin/glob ulin mass ratioOrdered By: Augustina Grace on 05-01-2022 Albumin/Globulin [Mass ratio] 1.3 {ratio} [facility] Serum or plasma alkaline jackson sphatase measurement (enzymatic activity/volume)Ordered By: Augustina Grace on 05-01-2022 ALP [Catalytic activity/Vol] 98 U/L 32-92 [facility] Serum or plasma anion gap de terminationOrdered By: Augustina Grace on 05-01-2022 Anion gap [Moles/Vol] 16.2 mmol/L 6.0-15.0 [facility] Serum or plasma aspartate am inotransferase measurement (enzymatic activity/volume)Ordered By: Augustina Grace on 05-01-2022 AST [Catalytic activity/Vol] 14 U/L 10-42 [facility] Serum or plasma calcium jama urement (mass/volume)Ordered By: Augustina Grace on 05-01-2022 Calcium [Mass/Vol] 9.3 mg/dL 8.2-10.2 [facility] Serum or plasma chloride shanice surement (moles/volume)Ordered By: Augustina Grace on 05-01-2022 Chloride [Moles/Vol] 100 mmol/L 95-114 [facility] Serum or plasma glucose jama urement (mass/volume)Ordered By: Augustina Grace on 05-01-2022 Glucose [Mass/Vol] 209 mg/dL 70-100 [facility] Comment on above: ADA recommended refe rence rangeRandom Glucose Reference Range is dependent on time and content of last meal. Glucose of more than 200 mg/dL in a nonstressed, ambulatory subject supports the diagnosis of Diabetes Mellitus. Serum or plasma hepatitis C virus antibody signal/cutoff ratio by immunoassay (relatiOrdered By: Augustina Grace on 05-01-2022 HCV Ab Signal/Cutoff IA [Rel units/Vol] <0.1 s/co ratio 0.0-0.9 [facility] Serum or plasma potassium me asurement (moles/volume)Ordered By: Augustina Grace on 05-01-2022 Potassium [Moles/Vol] 4.3 mmol/L 3.5-5.1 [facility] Serum or plasma sodium measu rement (moles/volume)Ordered By: Augustina Grace on 05-01-2022 Sodium [Moles/Vol] 134 mmol/L 136-146 [facility] Serum or plasma total biliru bin measurement (mass/volume)Ordered By: Augustina Grace on 05-01-2022 Bilirubin [Mass/Vol] 1.2 mg/dL 0.3-1.2 [facility] Serum or plasma total carbon dioxide measurement (moles/volume)Ordered By: Augustina Grace on 05-01-2022 CO2 [Moles/Vol] 22.1 mmol/L 22.0-30.0 [facility] Serum or plasma urea nitroge n measurement (mass/volume)Ordered By: Augustina Grace on 05-01-2022 Urea nitrogen [Mass/Vol] 32 mg/dL 04-26 [facility] XR Knee Complete Right*on XR Knee Complete Right* CLINICAL HISTORY: Patient fell with pain subpatellar. COMPARISON: None. TECHNIQUE: 5 Views were obtained. FINDINGS: No signs of fracture, dislocation or osseous destruction. The lateral compartment is narrowed. Marginal spurring of tibial spines, medial lateral tibial plateau, medial and lateral femoral condyles, posterior patella. IMPRESSION: NO DEFINITE FRACTURE OR DISLOCATION. DEGENERATIVE CHANGES. 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 COVID Quick Testingon 2020 Result Negative [employer] Other CNOVon 03-05-2021 CNOV Office Visit (LOORRM ) ----- KERLINE CHANG ([id number]) 1970 M Date Time Provider Department 03/05/21 11:15 AM NAIF ARIAS During your visit today, we recorded the following information about you: Naif Arias PA-C 03/05/2021 11:01 AM Signed POST HYALURONIC ACID INJECTION CARE: -Today you received an injection with a Hyaluronic Acid (gel one, euflexxa, synvisc one, etc) -No swimming or soaking for 24 hours to avoid infecting the injection site -Avoid heavy activity for 24-48 hours or until any pain from the injection subsides. -Ice 10-15min several times for the next day or so or until pain subsides. -tylenol or ibuprofen for pain -every injection carries the risk of infection. If you experience increased redness, swelling, pain, fever, chills, or other concern for infection pleasec ontact our office immediately. If night or weekend, go to nearest emergency room. -Call to let us know how you are doing approximately 6 weeks after the last injection in regards to the following: Are you less achy? Are you less stiff? Did the SALVADOR injection(s) help? Naif Arias PA-C 03/05/2021 1:09 PM Signed Kerline Chang is a patient of Nisa Rojas MD. CHIEF COMPLAINT: Kerline Chang is a 50 year old Male who presents today for follow up of right knee pain. HISTORY OF PRESENT ILLNESS: PAIN EVALUATION 03/05/2021 1045 Pain Level: 5 Pain Location: Knee-Right Description: Aching;Sore;Dull Duration Units: Months Frequency: Intermittent Intervention/Comfort measure: Reposition;Relaxation;Med ication Patient with known arthritis of his knee. He has a BMI of 56. Presents today for intra-articular Visco lubricating injection of the right knee. ALLERGIES: ALLERGIES Allergen Reactions - Ozempic [Semaglutid* Other: See Comments Chills, nightmares, diarrhea PAST MEDICAL HISTORY: PAST MEDICAL HISTORY Diagnosis Date - Backache, unspecified - Cholelithiasis - Closed fracture of medial malleolus 12/07 avulsion fracture at the distal lateral aspect of the left medial malleolus saw Dr. Cole - Depression - Edema - Generalized osteoarthrosis, unspecified site - Glaucoma - Hypertension - Morbid obesity (HCC) - Multiple sclerosis (HCC) 01/11 Dr. Gonzalez - NEGATIVE HISTORY OF No TB, CA, Heart dis,pnuemonia - NEGATIVE MEDICAL HISTORY No tb,ca,heart disease - Other specified glaucoma - Personal history of tobacco use, presenting hazards to health - Psoriasis - Rheumatoid arthritis(714.0) Rheumatoid Arthritis - Substance abuse (HCC) - Type 2 diabetes mellitus (HCC) - Type II or unspecified type diabetes mellitus without mention of complication, not stated as uncontrolled - Unspecified essential hypertension SOCIAL HISTORY: Tobacco Use: Quit 08/18/2012. Types: Cigarettes PHYSICAL EXAMINATION: Vitals: There were no vitals taken for this visit. Ortho Exam Knee Examination Right Knee Skin No evidence of eythema, warmth, bruising, abrasions, scars, swelling, atrophy,masses or deformity about bilateral lower extremities. Effusion 1+ effusion Alignment valgus Range of motion Decreased, yet acceptable range of motion in all aspects given the patient's body habitus Quadriceps examination full (5/5) quadriceps strength bilaterally, however there is bilateral VMO atrophy noted Patellar examination Decreased patellar mobility Negative patellar apprehension Positive patellar grind testing Tenderness lateral femoral condyle Meniscus Negative medial and lateral Ti's/Thessaly's testing Stability Collateral and cruciate knee ligaments (ACL/PCL/LCL/MCL) are all intact with no significant laxity noted bilaterally Additional Testing no significant restriction in hip range of motion and no contribution to the knee complaints today IMAGING: Final results and radiologist's interpretation, available in the [facility] health record. Images were reviewed with the patient/family members in the office today. My personal interpretation of the performed imaging is lateral compartment degenerative arthritis CLINICAL IMPRESSION / ASSESSMENT: (M17.11) Primary osteoarthritis of right knee (primary encounter diagnosis) RECOMMENDATION / PLAN: Medications Ice protocol, as directed. Dietary supplements: fish oils, turmeric, glucosamine and chondroitin Avoidance of NSAIDs was advised today, given high risk of side effects. Large Joint Arthro/Inj: R knee joint Informed Consent Consent Obtained: Verbal [place] Protocol A moment to CARE was completed. SIGN IN Personnel directly involved with the procedure wore the appropriate PPE. Special Equipment: N/A Patient/Surrogate Stated/Verified: Patient name, Date of , Relevant allergies and Intended procedure TIME OUT Intended patient and procedure match the source document(s). Consent documented and matches the inten (more content not included)... Normal [facility] Coding Summary.on 02-10-2021 Coding Summary. [id number] Gh0bW w+PGhlYWQ+DX0ROACiJ59asCJ qiV3ER9bRBD6GQMWCNYUUVQ3N RA7ckTT0VCozL8OsudYp TptzfCBuGU28AIw0THZ8eRphT HzrgQ5tcWYpU3b4PdWrPQ91uY 83NAraUPUpUgJ4ZkXkvsvyrXG y W8uhAqFvxRNlVst+PHRhYmxlI HdpZHRoPScxMDAlJyBzdHlsZT 9bMa3kKFPzTGKayYoxiIBxVrO j p5esYXOpOOtfPB6fuYveR7Pdl KU5QMGvz5n6Sh46sUR+PHRkIH Y2fOicQRmkz383LsRpl9lsNAG 3 cDExYWvfZZK0U69vc0V5DLLrZ FKsSIK4fFD3gI1pvVprhwhzQ8 GrtHEwUeY0TUM0hOLueC8fmEe n myrooY7yJbk+O04WZP4TLQCBX F7BLgo9Z6MfKkwvyCD+PC90YW LpPW80tZVjqPJkz4dphUc0JaQ w FUNaLOV9vHcdMPtzi2NyGFIgZ 35dvGHkl7N0VBVovYdtiGVwLo DuaLS2uF0kJBawbwzyb4slxnm n Fmlvt4ltfx07aJ14I83nJJqrV WVcHXC8BZTuMDByePmymq2lmP 9wIi8+YTbib6lgf4nfnEz5ZdI w ZMYjscVfcDhnECV5r5KuTf98M 8RhsXmtd0QwYzw8hn11dCYne8 Q0tOZ7PBzbIKMjaP8dOMiiSiE 6 NAYrBuPbtK54pBAiDJqsVy1vf AzawMeiLL2uPFKyjbszSOIdbD 4vNUHsyARujOrxDY6wLXOhdsv m r524PeIaVVZ8ERTwyPMfM3Kjd X2wTdKrTTMpFIBgQ2BqeEMeEF rhD541OTmyKlU9QZJfoaSsX9U s XCXjtFcfQnC3a4Z2Oi0Sk7Grw cygHWI1GAgzAON0BaXwLwTkYu D8V4PhBum1PFWetYgmXA1iG7E h YACvoouypiwwyWH7KVNoZXTqh P66dRSaAHdvYx6xr0A4o583HX ZlUCAerE83Qj9mbUtyUBZtnDD U bE0qvicea6rnugxaNuHtWGYmJ Bv5SEc8UEThdYvvDaWkREW4Ud N0XDR3lICkyO4hbBlsolqtjV8 w Oyc+Y69mtJ4qMQV5LVH2nkswC UPdzmKdUI00WI90K4DdCdpflW FibGU+UTRsytEqzLfbJL1eMmE j x1wdh3WoPNhrE2MzRDCwWGwgS qh3ABNlLPX8yJT3iZ7uWWQpQO unu4S3xVV2X9JzgqSsnb8tk4y s XHQiAIzdX02bwSYec3A5IFMke ZO2HSEhkGztXlMiiO71Rew+PG UrjYuck3IaWuhdx7jzp2lbeTv 9 MuVgWVNjtmPywVpiJQA7p4UhF o69F60xVBgiYIVoNMQwTTSzHZ WpmGsoct2xoW3yQs0+PGNvbCB 3 gOK0hX6hROPkKsY3BNaeQ187D yVfhRTuDhskt8uqm5oreUx9Zj VdILJmmtCaqEorBDN0e2YcLr2 8 L94wWYklGXLxQNKcTQFiGIWni Dctvb5mbW8pNd7+YM5co0xdpq 15gU39kHK+KEWzOSZ8rLvsQVe w GJNkpY4nUUuiBqY5FXJvWtGlg Y65jOCkQKwuFi2gqHsktGzaPW 4qSWEecdpun148KpPhq6cnESF w bWGuOQxqSOM1Y60rr8M1XKEsJ OLsXFJ2bWG2yA6toXhonqdnpI FwnZhkqxPrqNkbIIvjYHklR67 6 IHRvcDsnPlBhdGllbnQgTmFtZ Ra9O8VrJek6GLKhrCyjAT1mnR MdGQbgQc9oiPuluZkzVQ3mHUU p qpqrn530ZmGmi4jeEKUjlSIfR IcaXUD2G01tm8P2PDIsFKHdDW L9aGX1cS4ueOvenpapqECgwBf g cvKvtFmwXRaaAMriJ602NWLgr YewOmGmijVxKFQutIJ6MB78OD 25rUNjz7Q1hDP2L4NsDXJitzk t xlinqOP4TYHbHTPvxV04Aq2ov MffVd5oYGPbMYM2CDMlvGBqU1 ZqtB1qBiGnZFOxYKVsN9GtzRC t WTboI601AYscYjV0TAQoseDpM 7ObOERdoHkbXwJ5q6H0Yj2EU4 V9RN60HT57nEMvk5G9jGN9P5E h IASbqptidacdxQQ1XEUiQKFuf E12Wb9ssRdiTn7hJXFnHNI9CN TijEWmX3AkiR8eEwLtYYVjLTP w G0FheNHyYGpyX153QOgqOlW2Z PSnleKtK3QoXONiwHibJgV8b4 U6Jr4ZYWo7IP65SI61iCAbe0C 5 cYK6K3NtGFCxznjbfxrkrIS7T LThGSFioZ85Hw9ptUgtQj4gEM XrZCW6SQLdxHPcE9RzmG8dLeT j YCIfXEOuA8XilQAsRJzbS009M LpzIhI6BGXzjtRbU2XvSBAotJ yaTsC9o7N4So9QNTExXI42IAJ 5 jPT3YU32MU90Z7SuEqrvdCVnp +PHRhYmxlIHdpZHRoPScxMD LdLnAbpCglQK2iYz7tARVeWNO v fOuyrXJpCzVsk8ynLHFiUKyeJ J3rnPbmJ8SbkGR1GGAbe7j4Zh 60R86nE1BwsYH+NVCtvHI4aYS 0 kF2bIhQhXyU0ERpoB713GyOqo FXpHggbo5uup8ureQj9PgV7BV BnnnVzzHcfWUQ8b3GgWd67F24 s IHdpZHRoPSIxNSUiIHZhbGlnb k6ghT6nQg3+TGUjcNH2sAF0mH 5aRdBdLrD5MVbvQ627MkYezRY v Vmqdt1rbv6fduZi4FoOoNUGsg xTmwSobPJG1y1SvOc08R9DslY mcd0FnNqr3bp75sUKmx5L3jNQ 9 Y1BrXLXvaxlsbUCuhSliXI9gE QEzazrzFQYjiT5zXLEzA5f2Rl SiZjH5XLafP1FirdJ2CZUiyBV g XGfnATM5H86lo4T0HBYzRHBhJ CE3kDW7rA2ltYtlzwarsEXroM ezxxGinHotNAdfHXsiX088KLL v hIbxTYHszA7pIWOshUYhiIozG E9nYHPeyztkAlyOQcheDN8UE4 hBRUwgSjwvdGQ+QKSdOVP0nFs l LHcaAYSypE4lZHJvU4e6MwTcZ kT4OOukV3LrGAKskpujHx47oG 8dRrEjSuR2TKafY7GhxiQ9KPE w wPYpFVxpSYX6L53at2C3IUGyT JRpHHM8rHT0eR8kbBwbljvqxR QxfFmokoRumXorJMosSQnvZ24 6 LSZgoIteElIrQiT5BkJ0OsG2H 1LmTaa5INKjyVzoTW5ycHFvWG riLq0xqXejbAtjCU6rCFPjrpf w HKVogP0cCZSazBEixDdkMZ3nE DNthbvqw283TqYpJCI6LPAwiD PhC4AnuT5sRfMoOMLiJIIjZ1O l gDTeWZfxH991XIknEkX6QFPfg lTpL5NkALMzyDwqIzQ5x1T2Gc 40OSBZZWFyczwvdGQ+PHRkIHN 0 yOfiZWooHERkeN8rUYQmW4u8E rCoYtY8SRgwU9WgVPQusvpdBb 49cT8lIsUnAqA5HTxuL9SjusM 6 WGGlbSTeYIxgHBS7O24db9K7B HOyHGYhRFJ8fDE7nR6hhVollw ogbGVmdDsgdmVydGljYWwtYWx p S796OLCewQcqNk5ahQF6X4YjU du5NPUjpDpnVY9ayBCjHJfoQs 3cxMktaOkpPI1oDVUfkwcvKKX k qW5tACSasKTzkRriPC1rOVDlt xsbi638OgBwOQG1JZEubVEdT1 JkhJ1sEzRpXRPlXCQsL7YlmNG t TNncW379CNkuXyE0DRIzwqIlK 0LkGCJqwHanDgL8l9E5Rg8GdB TnZ2SxJ4c8W6CwXeesjPG+PC9 0 ZMNtQW48dUHmpCZcj4ilaYf3F oHiSYTrKMJ8rNhhWOxbt3FdNM UwK70teMWur9L7VCIroEpogTU l WhSgtTP3lI6iHAmhmrrgo2vxb xaaMfzcl8okwk48hZ52H69tOI dpZHRoPSIzMCUiIHZhbGlnbj0 i pJ5cHg5+CYImpHW4wAE0yA9mW yQiRuP9QDmqU941FqAscEKrXt bic8fzw4hjkEi4ErOyYGUlvuZ s pSgpRIR8j3QoUq16F06pAWnqV RExJAXuJXTrSJWneMxmef4tkX 9wIi8+NG1ps0ftfq53hY75oND + WQKhUGM8jTmsMIygRROlgW5hW WsbUjP0WGKrJyOvfT70dYBmPU mkJz6paUnfyHgfYI3lKFChpuw m w118OpSld1cvHZAsjBHpRPbrP XX4D62jq8R1GINyBDVtSDX6fO Y9fO1qfDzvplxubVGbqLfuleF y oIdcMPjfAPnkZ650LUWgzZmwU rSzlEPxW2aliwBCKB1hEsnymG Q+NXRdCCY6aZptSLruKTUtpV3 n BXLbZ2u1OaHsMxB3YRlxU9Tyj sG6GRVwhZDdZQHdzLBTzA2avt bnq7cpohidWoKrJXDcCEi1FOj 0 OSUpoZpvGePzQFZ0WbJ6BEN1z BJbaT3ftVgbjzotiN8hGlv+Rk lOOjwvdGQ+FAGoLUO9uUcgYIs w AXPnjX8mUVVoF1q9DkPtKpF5Z HahJ6SiekM6ORNqzMOtRLGldB VDnN2mvxkfc1xkcdvmOlIdGTL w JPu8TTj0OFJwdEdfVyDcQOH3K nZ5EOT1yFWsrM8dxPkumutlbD 9wOyc+TVJOOjwvdGQ+PHRkIHN 0 uTafQSbwUKPrrT3yOGPgY7c6A jZlUoQ6YRujU7RslrG2JENpjO NzTCUgdHROmS1fyfaxm0zzfhs g HlWbYEBxODj0KQc6PYSnxDwyU xHnMYS3CuU4JZW7uQIafI6mgT qxjgwwxX8uMfp+NRA1PLL5AX2 0 UZ07H6XkBfddxAXubNB+PHRhY mxlIHdpZHRoPScxMDAlJyBzdH szLK3vRl0oRIYqOHCdxKphpYQ l OiBj (more content not included)... Normal [facility] ED Note-Physicianon 02-05-20 21 ED Note-Physician Basic Information Time Seen: Laverne Laurent PA-C. 02/03/2021 11:15 Chief Complaint Pt. presents to the ed with co right groin abscess that started 5 days ago. History of Present Illness This patient comes in today with chief complaint of an abscess on his right inner thigh. He states its been there for several days, and it feels like it is getting worse. The patient states that he does have a history of recurrent abscesses that require I&D. These have occurred on the back of his neck, under his left breast, in the axilla, and under the pannus. The patient denies any fevers chills or sweats. The patient states he is a diabetic, but his diabetes is under very good control, and he never has blood sugars over 200. The patient attempted to go to to other medical centers today but one was closed and the other one told him they could not perform an I&D. The patient recently completed a course of Cipro for a urinary infection. Review of Systems Constitutional: Denies weight loss, fevers, chills, sweats, malaise Eyes: Denies visual changes, eye pain, double vision, scotomas, floaters ENT: Denies runny nose, epistaxis, sinus pain, ear pain, ringing in ears, tooth ache, sore throat, pain with swallowing Cardiovascular: Denies chest pain, shortness of breath, orthopnea, edema, palpitations, loss of consciousness, claudication Respiratory: Denies cough, sputum production, wheezing, hemoptysis, shortness of breath, dyspnea on exertion Gastrointestinal: Denies abdominal pain, unintentional weight loss, difficulty swallowing, indigestion, bloating, cramping, loss of appetite, nausea, vomiting, diarrhea, constipation, hematochezia, melena Genitourinary: Denies any incontinence of urine, dysuria, hematuria, nocturia, polyuria, hesitancy, frequency, urgency, burning Musculoskeletal: Denies joint pain, morning stiffness, joint swelling, decreased range of motion, crepitus Integumentary: Abscess right inner thigh Neurologic: Denies any changes in sight, smell, hearing, taste, seizures, headache, paresthesia, numbness, weakness, balance disturbance Psychiatric denies any depression, change in sleep patterns, anxiety, difficulty concentrating, paranoia, anhedonia, lack of energy, lenny Hematologic/lymphatic: Denies any purpura, petechiae, excessive bleeding, bruising Physical Exam Vitals & Measurements T: 36.8 ?C (Oral) HR: 75(Peripheral) RR: 18 BP: 167/81 SpO2: 98% HT: 175 cm HT: 175.0 cm WT: 163.5 kg WT: 163.5 kg BMI: 53.39 Vital signs and nursing notes reviewed. General: Awake, alert, NAD. Morbidly obese. Thorax: Symmetrical rise and fall Lungs: Clear to auscultation throughout all elam, no wheezes, no crackles Heart: Regular rate and rhythm. No murmur, gallop, or rub Abdomen: No tenderness on palpation. Bowel sounds are present active and normal. No organomegaly. No palpable masses. No CVA tenderness. Extremities: Motor sensory pulses intact x4 extremities. No lower extremity edema. Skin: No rashes, ulcerations. No bruising or petechiae. Color appropriate, warm and dry. Patient does have a 2 cm fluctuant soft tissue abscess on the right medial thigh. There is no lymphangitic streaking. There is no associated adenopathy. Neuro: No oriented x3, no focal neuro deficits Psych: Mood and affect are normal Medical Decision Making Soft tissue abscess right medial thigh, probable hidradenitis suppurativa Assessment/Plan 1. Left against medical advice (Z53.29: Procedure and treatment not carried out because of patient's decision for other reasons) Orders: Wound Culture The patient was interviewed and examined. Have discussed I&D of this right medial thigh soft tissue abscess. The patient is in agreement. While I was preparing for the procedure, the patient put his call light on. He told the nurse he did not want to stay any longer. The patient left AGAINST MEDICAL ADVICE. Disposition Plan Discharge Prescription List Prescriptions No active prescription medications Follow-up No qualifying data available Attestation I was physically present throughout the patient's stay in the emergency department and I was immediately available to the physician paralegal assistant/nurse practitioner at all times during this encounter. I did not provide esoa-tv-duvo evaluation/service during this encounter. Problem List/Past Medical History Ongoing Arthritis CKD (chronic kidney disease) stage 2, GFR 60-89 ml/min DM - Diabetes mellitus ED (erectile dysfunction) Former smoker SUKHJINDER (generalized anxiety disorder) Glaucoma HTN - Hypertension IBS (irritable bowel syndrome) Lung nodule Lymphedema Lymphedema MS (multiple sclerosis) MS - Multiple sclerosis Neck pain Nocturia Obesity Osteoarthritis Pain in limb - multiple Post-void dribbling Retrograde ejaculation Smoker 03-FEB-2014 12:37:00<$> Tubular adenoma of rectum Urge incontinence Urine frequency Vertigo Weak urinary stream Historical Atypical migraine (more content not included)... Normal [facility] Comment on above: Result Comment: Elec tronically Signed By: Laverne Laurent PA-C\.br\Date and Time Signed: 02/03/21 22:20 EDT\.br\Electronically Co-Signed By: Mark Field DO.br\Date and Time Co-Signed: 02/04/21 08:33 EDT Consent To Leave AMAon 02-03 Consent To Leave AMA [id number]#[id number]:1 27 Normal [facility] ED Clinical Summaryon 2020 ED Clinical Summary (Inserted Image. Jody ble to display) [address] [address] ED Clinical Summary Person Information Name: KERLINE CHANG/[place] Age: 50 Years : 1970 Sex: Male Language: Arabic PCP: NISA ROJAS MD Marital Status: Visit Id: Visit Reason: Abscess - simple; BOIL RT INNER LEG Speciality: Acuity: 4 Enc Type: Emergency Med Service: Emergency Arrival: 02/03/2021 10:19:49 Discharge: 02/03/2021 12:55:08 LOS: 000 02:36 Checkin: 02/03/2021 10:19:49 Checkout: 02/03/2021 12:55:08 Dispo Type: Home (Routine DC) EVENTS: Event Name Event Status Request Date/Time Start Date/Time Complete Date/Time Arrive Complete 02/03/2021 10:19:49 02/03/2021 10:19:49 02/03/2021 10:19:49 Document Home Meds Request 02/03/2021 10:19:49 Triage Complete 02/03/2021 10:19:49 02/03/2021 11:00:25 02/03/2021 11:00:25 Bed Assign Complete 02/03/2021 11:01:03 02/03/2021 11:01:03 02/03/2021 11:01:03 Dr Exam Complete 02/03/2021 11:01:03 02/03/2021 11:15:03 02/03/2021 11:15:03 RN Exam Complete 02/03/2021 11:01:03 02/03/2021 11:21:29 02/03/2021 11:21:29 Registration Complete 02/03/2021 11:15:03 02/03/2021 11:22:05 02/03/2021 11:22:05 Reg Complete Request 02/03/2021 11:22:05 Pending Labs Request 02/03/2021 12:14:36 Lab Request 02/03/2021 12:14:36 Meds Admin Request 02/03/2021 12:14:36 Discharge Complete 02/03/2021 12:55:15 02/03/2021 12:55:15 02/03/2021 12:55:15 Transfer Complete 02/03/2021 12:55:15 02/03/2021 12:55:15 02/03/2021 12:55:15 ADDRESS: [address] [place] [id number] PHYS DOC NOTES: MEDICAL INFORMATION: Prescriptions Given: Medications to Continue with No Changes Other Medications albuterol (ProAir HFA) Inhalation every 6 hours. aliskiren-hydrochlorothia zide (aliskiren-hydrochlorothi azide 300 mg-25 mg oral tablet) 1 Tablets By Mouth every day. bimatoprost ophthalmic (Lumigan 0.01% ophthalmic solution) 1 Drops Ophthalmic once a day (in the evening). bimatoprost ophthalmic (Lumigan) once a day (in the evening). cephalexin (Keflex 500 mg Cap) 1 Capsules By Mouth 4 times a day. Take one capsule by mouth four times a day. Refills: 0. cetirizine cholecalciferol (Vitamin D3 5000 intl units oral tab) 1 Tablets By Mouth every day. cyclobenzaprine (cyclobenzaprine 5 mg Tab) By Mouth 3 times a day. diclofenac (Diclofenac 75mg Tab-DR) By Mouth 2 times a day. dicyclomine (dicyclomine 10 mg Cap) By Mouth 4 times a day. dimethyl fumarate (Tecfidera 240 mg oral delayed release capsule) By Mouth 2 times a day. dimethyl fumarate (Tecfidera 240 mg oral delayed release capsule) By Mouth 2 times a day. insulin aspart (NovoLog) Subcutaneous before meals. insulin degludec (Tresiba FlexTouch 200 units/mL subcutaneous solution) Subcutaneous every day. insulin glargine (Lantus) 10 Units Subcutaneous every day as needed prn. irbesartan By Mouth every day. irbesartan (irbesartan 300 mg Tab) By Mouth every day. labetalol labetalol (labetalol 100 mg Tab) By Mouth 2 times a day. Non-Formulary Medication (Misc Medication) Medical Marijuana vaporizer takes 1-2 puffs 3-4 times a day . rosuvastatin (rosuvastatin 10 mg Tab) By Mouth every day. PATIENT EDUCATION INFORMATION: Instructions: Follow up: DIAGNOSIS: Normal [facility] ED Patient Education Noteon 02-03-2021 ED Patient Education Note Normal [facility] ED Patient Summaryon 021 ED Patient Summary (Inserted Image. Jody ble to display) [address] [address] Patient Discharge Instructions Person Information Name: KERLINE CHANG Age: 50 Years Arrival Date: 02/03/2021 10:19:49 Discharge Diagnosis: Primary Care Physician: NISA ROJAS MD Provider Information Primary Provider: Advanced Survey Manager:None The exam and treatment you received in the Emergency Department were for an urgent problem and are not intended as complete care. It is important that you follow up with a doctor, nurse practitioner, or physician?s paralegal assistant for ongoing care. If your symptoms become worse or you do not improve as expected and you are unable to reach your usual health care provider, you should return to the Emergency Department. We are available 24 hours a day. KERLINE CHANG has been given the following list of patient education materials, prescriptions and follow-up instructions: Follow-up Instructions: In the event that this physician does not participate in your insurance network, please consult with your insurance company to find a nearby participating provider. Patient Education Materials: A MESSAGE TO ALL PATIENTS REGARDING OPIOIDS PRESCRIPTION OPIOIDS: WHAT YOU NEED TO KNOW Prescription opioids can be used to help relieve erhyrgvq-un-qxbuah pain and are often prescribed following a surgery or injury, or for certain health conditions. These medications can be an important part of the treatment but also come with serious risks. It is important to work with your healthcare provider to make sure you are getting the safest, most effective care. WHAT ARE THE RISKS AND SIDE EFFECTS OF OPIOID USE? Prescription opioids carry serious risks of addiction and overdose, especially with prolonged use. An opioid overdose, often marked by slowed breathing, can cause sudden . The use of prescription opioids can have a number of side effects as well, even when taken as directed: ? Tolerance?meaning you might need to take more of the medication for the same pain relief ? Physical dependence?meaning you have symptoms of withdrawal when a medication is stopped ? Increased sensitivity to pain ? Constipation ? Nausea, vomiting, and dry mouth ? Sleepiness and dizziness ? Confusion ? Depression ? Low levels of testosterone that can result in lower sex drive, energy, and strength ? Itching and sweating RISKS ARE GREATER WITH: ? History of drug misuse, substance use disorder, or overdose ? Mental health conditions (such as depression or anxiety) ? Sleep apnea ? Older age (65 years and older) ? Avoid alcohol while taking prescription opioids. Also, unless specifically advised by your health care provider, medications to avoid include: ? Benzodiazepines (such as Xanax or Valium) ? Muscle relaxants (such as Soma or Flexeril) ? Hypnotics (such as Ambien or Lunesta) ? Other prescription opioids KNOW YOUR OPTIONS Talk to your health care provider about ways to manage your pain that don?t involve prescription opioids. Some of these options may actually work better and have fewer risks and side effects. Options may include: ? Pain relievers such as acetaminophen, ibuprofen, and naproxen ? Some medication that are also used for depression or seizures ? Physical therapy and exercise ? Cognitive behavioral therapy, a psychological, goal-directed approach, in which patients learn how to modify physical, behavioral, and emotional triggers of pain and stress. IF YOU ARE PRESCRIBED OPIOIDS FOR PAIN: ? Never take opioids in greater amounts or more often than prescribed. ? Follow up with your primary health care provider. o Work together to create a plan on how to manage your pain. o Talk about ways to help manage your pain that don?t involve prescription opioids. o Talk about any and all concerns and side effects. ? Help prevent misuse and abuse o Never sell or share prescription opioids. o Never use another person?s prescription opioids. ? Store prescription opioids in a secure place and out of reach of others (this may include visitors, children, friends, and family). ? Safely dispose of unused prescription opioids: Find your community drug take-back program or your pharmacy mail-back program, or flush them down the toilet, following guidance from the Food and Drug Administration (www.fda.gov/Drugs/Resour cesForYou). ? Visit www.cdc.gov/drugoverdose to learn about the risks of opioids abuse and overdose. ? If you believe you may be struggling with addiction, tell your health respiratory care faculty and ask for guidance or call [employer]?S National Helpline at 4-749-365-QEOA. n Source: US Department of Health and Human Services/Center for Disease Control & Prevention [facility] Medications Given: Medication Dose Route No medications found. Medication Information: Medica (more content not included)... Normal [facility] CNOVon 11-21-2020 CNOV Office Visit (ENDOLN ) ----- KERLINE CHANG ([id number]) 1970 M Date Time Provider Department 11/21/20 9:00 AM TANIYA MCCLAIN ENDOLN During your visit today, we recorded the following information about you: Pulse Blood pressure Weight 64/minute 188/104 172.8 kg Taniya Mcclain MD 11/21/2020 9:29 AM Signed 50yo WM with h/o DM2 since 2009, neuropathy, nephropathy (on max irbesartan), 1.7cm left adrenal mass noted in 2010 (stable through 2018, negative biochemical testing 04/23), HTN, HLP, RA, here for f/u Patient checks BG 3-4 times per day due to fluctuating readings, using Jazmín. Average BG 285 in last 28 days. Hypoglycemic 0% of time, in range 5% of time. Tried metformin in past but had diarrhea, even with ER formulation. Had diarrhea and nausea with Ozempic. Never tried SGLT-2 inhibitor or sulfonylurea. Was taking rosuvastatin 20mg daily consistently but ran out a month ago. POC A1C in clinic today (fingerstick) = 11.0% Notes he is getting steroids periodically for leg swelling, intermittently, none in last 1.5 weeks. Other significant DM comorbidities: Nephropathy, neuropathy Last saw ophthalmology: February 2020 Current Diabetes Medications, Dosage, Frequency: Tresiba 100 units every morning Novolog 15 units before meals (if no carbs in meals, then use 0 units as your base), plus more if blood sugar is high: If blood sugar is 150-200 take 5 more units If blood sugar is 201-250 take 10 more units If blood sugar is 251-300 take 15 more units If blood sugar is 301-350 take 20 more units If blood sugar is 351-400 take 25 more units If blood sugar is more than 400 take 30 more units compliance with diet has been good, trying to limit his carbs exercise: limited, but joining gym Patient has had hypoglycemia episodes; when he was taking Novolog 20u + SSI Report of Self Monitoring of Blood Glucose: See scanned documents Patient denies pain and numbness in the feet. Patient denies chest pain Patient denies sob Patient denies symptoms of a TIA , or claudication All other Review of Systems reviewed and are negative. PAST MEDICAL HISTORY Diagnosis Date - Backache, unspecified - Cholelithiasis - Closed fracture of medial malleolus 12/07 avulsion fracture at the distal lateral aspect of the left medial malleolus saw Dr. Cole - Depression - Edema - Generalized osteoarthrosis, unspecified site - Glaucoma - Hypertension - Morbid obesity (HCC) - Multiple sclerosis (HCC) 01/11 Dr. Gonzalez - NEGATIVE HISTORY OF No TB, CA, Heart dis,pnuemonia - NEGATIVE MEDICAL HISTORY No tb,ca,heart disease - Other specified glaucoma - Personal history of tobacco use, presenting hazards to health - Psoriasis - Rheumatoid arthritis(714.0) Rheumatoid Arthritis - Substance abuse (HCC) - Type 2 diabetes mellitus (HCC) - Type II or unspecified type diabetes mellitus without mention of complication, not stated as uncontrolled - Unspecified essential hypertension Past Family and Social History reviewed and updated, as needed. insulin degludec (TRESIBA FLEXTOUCH U-200) 200 unit/mL (3 mL) injection, Inject 80 Units subcutaneously daily at bedtime. (Patient taking differently: Inject 100 Units subcutaneously daily at bedtime. ), Disp: 12 Pen, Rfl: 3 labetalol (TRANDATE) 300 mg tablet, Take 300 mg by mouth once daily. Labetalol HCL 300mg 3 times daily (per pt report) , Disp: , Rfl: diclofenac, EC, (VOLTAREN) 75 mg EC tablet, Take 75 mg by mouth twice daily., Disp: , Rfl: hydroCHLOROthiazide (HYDRODIURIL, ESIDRIX) 25 mg tablet, Take 25 mg by mouth once daily., Disp: , Rfl: irbesartan (AVAPRO) 300 mg tablet, Take 300 mg by mouth once daily., Disp: , Rfl: cholecalciferol (VITAMIN D-3) 5,000 unit tab, Take 5,000 Units by mouth daily with food., Disp: , Rfl: dimethyl fumarate (TECFIDERA) 240 mg cpDR, Take 240 mg by mouth twice daily., Disp: 180 capsule, Rfl: 0 Bimatoprost (LUMIGAN) 0.01 % OPHTHALMIC Drop, Use 1 Drop in both eyes once daily., Disp: , Rfl: 0 OBJECTIVE: BP 188/104 Pulse 64 Wt (!) 172.8 kg (381 lb) BMI 56.26 kg/m? Last 3 Encounter Wt Readings: Date: Wt: 11/21/2020 172.8 kg (381 lb) 04/11/2020 174.6 kg (385 lb) 10/26/2019 167.4 kg (369 lb) Gen - NAD, comfortable, pleasant, not cushingoid HEENT - no acanthosis, no SC/DC fat pads CVS - RRR no murmurs, DP pulses present 2+ b/l Lung - CTAB, no rales Abd - yes obese, +BS, no lipohypertrophy, non-tender, no striae Derm - no skin breaks or ulcers in feet noted, no foot callus, no dry feet Neuro - plantar surface of feet with intact sensation to monofilament b/l, alert/oriented MSK - no loss of arch from feet, no LE edema Component Latest Ref Rng AND Units 04/11/2020 04/17/2020 Glucose 74 - 99 mg/dL 194 (H) BUN 9 - 24 mg/dL 22 Creatinine 0.73 - 1.22 mg/dL 1.04 Sodium 136 - 144 mmol/L 132 (L) Potassium 3.7 - (more content not included)... Normal [facility] OBSOLETEon 10-13-2020 OBSOLETE Refill (ENDOLN) ----- KERLINE CHANG ([id number]) 1970 M Date Time Provider Department 10/13/20 TANIYA MCCLAIN ENDOLN During your visit today, we recorded the following information about you: Chaya Carson RN 10/13/2020 12:15 PM Signed Requestor:pt Patient is identified by name and birthdate: Yes Patient reminded to check with pharmacy in 24-48 hours: Yes Prescriber Verified: Yes Pharmacy benefits have been verified: No Pharmacy updated in Epic: Yes Is medication controlled substance: No Medication instructions verified (dose, dosing instructions [sig], dispense amount [30 or 90 day supply], refills): Yes -If medication is not on the MAR please get additional information Are any other medications due for a refill in the next 3 months: No Last ov advised 6 week f/u Next appt 11-22 pt declined sooner Took last dose last night Please send today elijah capellan - pharm on dial Pending Prescriptions Disp Refills TRESIBA FLEXTOUCH U-200 INSULIN 200 UNIT/ML (3 ML) SUBCUTANEOUS PEN 12 Pen 3 Sig: Inject 80 Units subcutaneously daily at bedtime. PRISCILLA: No Srikanth Sun Ma 10/13/2020 2:21 PM Signed ELIZABETH 04/11/20 NOV 11/21/20 Patient has been reminded to check with pharmacy 24 to 48hr after request. Pt is identified by name and birthdate: Yes Patient phones requesting refills as follows: Pending Prescriptions Disp Refills TRESIBA FLEXTOUCH U-200 INSULIN 200 UNIT/ML (3 ML) SUBCUTANEOUS PEN 12 Pen 3 Sig: Inject 80 Units subcutaneously daily at bedtime. PRISCILLA: No Please review and advise. Allergies As of Date: 10/13/2020 (No Active Allergies) Date Reviewed: 06/08/2020 Reviewed by: Vahe Arriaga Ma - Fully Assessed Reason for Visit: Refill Request [94] Cmt: tresidba Reason For Visit History Recorded Visit Diagnosis:Diabetes mellitus type 2 in obese (HCC) [E11.69, E66.9] Order(s):insulin degludec (TRESIBA FLEXTOUCH U-200) 200 unit/mL (3 mL) injectionInject 80 Units subcutaneously daily at bedtime.Disp: 12 PenRfl: 3 Prescriptions as of 10/13/2020 Sig: TRESIBA FLEXTOUCH U-200 INSUL* Inject 80 Units subcutaneousl* ROSUVASTATIN 20 MG TABLET Take 1 tablet by mouth once d* OZEMPIC 0.25 MG OR 0.5 MG (2 * Inject 0.5 mg subcutaneously * LABETALOL 300 MG TABLET Take 300 mg by mouth three ti* DICLOFENAC SODIUM 75 MG TABLE* Take 75 mg by mouth twice amara* HYDROCHLOROTHIAZIDE 25 MG TAB* Take 25 mg by mouth once david* LABETALOL 100 MG TABLET Take 100 mg by mouth three ti* IRBESARTAN 300 MG TABLET Take 300 mg by mouth once amara* CHOLECALCIFEROL (VITAMIN D3) * Take 5,000 Units by mouth amara* DICLOFENAC 1 % TOPICAL GEL apply FOUR grams topically FO* DIMETHYL FUMARATE 240 MG CAPS* Take 240 mg by mouth twice da* PODOFILOX 0.5 % TOPICAL SOLUT* Apply to lesions twice daily * VENLAFAXINE 75 MG TABLET Take 1 tablet by mouth twice * ERGOCALCIFEROL (VITAMIN D2) 1* Take 1 capsule by mouth once * Patient not taking: Reported on 10/26/2019 KETOCONAZOLE 2 % TOPICAL CREAM Apply to rash on thighs twice* ASPIRIN 81 MG TABLET,DELAYED * Take 81 mg by mouth once david* METOPROLOL SUCCINATE ER 25 MG* Take 25 mg by mouth once david* * BIMATOPROST 0.01 % EYE DROPS Use 1 Drop in both eyes once * Problem List As Of Date 10/13/2020 Noted Resolved EXCESSIVE OBESITY [E66.01] 03/05/2005 Rheumatoid arthritis [M06.9] 03/05/2005 12/29/2012 GLAUCOMA NEC [H40.89] HYPERTENSION NOS [I10] GENERAL OSTEOARTHROSIS [M15.9] DIABETES MELLITUS TYPE II-UNCOMPL [E11.9] ACHILLES TENDINITIS [M76.60] 01/14/2006 More... OTHER PSORIASIS [L40.8] 01/14/2006 More... PSORIATIC ARTHROPATHY [L40.50] 02/11/2006 SACROILIITIS NEC [M46.1] 03/12/2006 OA (OSTEOARTHRITIS) LOCALIZED, PRIMARY( Lower L*06/09/2006 INTERNAL DERANGEMENT KNEE-CHRONIC MEDIAL MENISC*06/09/2006 ANAL FISSURE AND FISTULA [565] 12/02/2006 10/27/2007 DEPRESSIVE DISORDER NEC [F32.9] 02/24/2007 INGROWING NAIL [L60.0] 10/15/2007 DERMATITIS NOS [L25.9] 06/06/2008 EDEMA [R60.9] 06/21/2008 SEBACEOUS CYST [L72.3] 07/05/2008 HYPERPARATHYROIDISM NOS [E21.3] 09/02/2008 More... VITAMIN D DEFICIENCY NOS [E55.9] 09/02/2008 DIABETES TYPE II W NEURO MANIFESTATIONS [E11.49]09/28/2008 Varicose Veins of Lower Extremities with Other *08/22/2009 Foot Pain [M79.673] 12/29/2009 MS (Multiple Sclerosis) [G35] 01/17/2010 More... Neoplasm of Uncertain Behavior of Skin [D48.5] 02/21/2010 Ingrown Right Big Toenail [L60.0] 03/06/2010 Benign Neoplasm of Skin of Other and Unspecifie*03/06/2010 Nail, Ingrown [L60.0] 04/19/2010 Edema leg [R60.0] 03/05/2011 Patellofemoral syndrome [M22.2X9] 04/27/2011 B12 deficiency [E53.8] 09/01/2011 Tinea cruris [B35.6] 02/04/2012 Dermatofibroma [D23.9] 02/04/2012 Ingrown nail [L60.0] 04/10/2012 SALVADOR (headache) [R51.9] 10/14/2012 Headache [R51] 01/08/2013 Cervical spondylosis without myelopathy [M47.81*02/19/2013 OA (osteoarthritis) of knee [ (more content not included)... Normal [facility] ED Note-Physicianon 07-16-20 ED Note-Physician Basic Information Time Seen: Ash Hurd PA-C 07/09/2020 10:[address] Rojas sent pt to the ER due to abcess left groin. Pt denies drainage, fevers. History of Present Illness Is a morbidly obese 50-year-old male presents emergency department the chief complaint of left groin pain for the past 3 days. He states he has swelling, does have an abscess and states that he gets these quite often. He denies fevers or chills, does have a history of MS and diabetes mellitus, denies any discharge or drainage. Review of Systems A 10 point review of systems is negative except as noted above. Medical and Surgical History: Reviewed and noted Social history: Lives at home Tobacco: Smokes marijuana, reformed smoker Physical Exam Vitals & Measurements T: 37.2 ?C (Oral) HR: 95(Monitored) RR: 22 BP: 118/94 SpO2: 98% HT: 173 cm HT: 173.0 cm WT: 172 kg WT: 172.0 kg BMI: 57.47 General: Alert and oriented, No acute distress, Comfortable in bed. Eye: Pupils are equal, round and reactive to light, Extraocular movements are intact. HENT: Normocephalic. Neck: Supple, Non-tender, No jugular venous distention. Respiratory: Respirations are non-labored, Symmetrical chest wall expansion, No chest wall tenderness, no wheezing rhonchi rales or rubs noted.. Cardiovascular: Normal rate, Regular rhythm, Good pulses equal in all extremities. Gastrointestinal: Soft, Non-tender, Non-distended, Normal bowel sounds. Musculoskeletal: Normal range of motion, Normal strength. Neurologic: Alert, Oriented, Normal sensory, Normal motor function. Cognition and Speech: Oriented, Speech clear and coherent. Psychiatric: Cooperative, Appropriate mood & affect. Integumentary: Warm, Dry, 2 cm area of induration with erythematous dome noted in the left groin. No spontaneous drainage or discharge. Procedure Area was anesthetized with 3 cc of 1% Xylocaine without epinephrine in a field block fashion. Area was sterilely prepped and draped using Betadine, an 11 blade scalpel was then used to introduce a 1 cm incision over the apex, and a moderate amount of purulent drainage was expressed. Cultures obtained, and sent for I&D. Half-inch iodoform gauze was then placed for drain, Medical Decision Making Patient received I&D as described above, he will be started on Keflex and Bactrim. He is to apply warm compresses to the area. Patient understood and agreed with the plan. Assessment/Plan 1. Abscess of left groin (L02.214: Cutaneous abscess of groin) Orders: Extra Blue Tube Extra Green Li Tube Extra Lav Tube Suture Tray Set Up Wound Culture Medications Administered Given lidocaine 1% Injection 20 mL, 30 mg, SubCutaneous Disposition Plan Patient Discharge Condition Improved Discharge Disposition Discharge home Discharge Prescription List Prescriptions Bactrim D.S. 800 mg-160 mg Tab, 2 tab(s), Oral, BID Keflex 500 mg Cap, 500 mg= 1 cap(s), Oral, QID Follow-up With When Contact Information NISA ROJAS In 3 days 07/12/[address] [place] [address]- Business (1) Additional Instructions: Patient Education Incision and Drainage, Care After Attestation I was physically present throughout the patient's stay in the emergency department and I was immediately available to the physician paralegal assistant/nurse practitioner at all times during this encounter. I did not provide qgyk-hp-htjj evaluation/service during this encounter. Problem List/Past Medical History Ongoing Arthritis CKD (chronic kidney disease) stage 2, GFR 60-89 ml/min DM - Diabetes mellitus ED (erectile dysfunction) Former smoker SUKHJINDER (generalized anxiety disorder) Glaucoma HTN - Hypertension IBS (irritable bowel syndrome) Lung nodule Lymphedema Lymphedema MS (multiple sclerosis) MS - Multiple sclerosis Neck pain Nocturia Obesity Osteoarthritis Pain in limb - multiple Post-void dribbling Retrograde ejaculation Smoker 03-FEB-2014 12:37:00<$> Tubular adenoma of rectum Urge incontinence Urine frequency Vertigo Weak urinary stream Historical Atypical migraine MS (multiple sclerosis) TMJ (temporomandibular joint disorder) Procedure/Surgical History Arthroscopy of knee (01/02/2007), Arthroscopy of knee, Biopsy of lesion of temporal lobe, Colonoscopy. Medications Inpatient Fleet Enema, 135 mL, Rectal, Once Home aliskiren-hydrochlorothia zide 300 mg-25 mg oral tablet, 1 tab(s), Oral, Daily Bactrim D.S. 800 mg-160 mg Tab, 2 tab(s), Oral, BID cetirizine, Not taking cyclobenzaprine 5 mg Tab, Oral, TID, Not taking Diclofenac 75mg Tab-DR, Oral, BID dicyclomine 10 mg Cap, Oral, QID, Not taking irbesartan, Oral, Daily irbesartan 300 mg Tab, Oral, Daily Keflex 500 mg Cap, 500 mg= 1 cap(s), Oral, QID labetalol, Not taking labetalol 100 mg Tab, Oral, BID, Not taking Lantus, 10 unit(s), SubCutaneous, Daily, PRN, Not taking Lumigan, qPM, Not taking (more content not included)... Normal [facility] Comment on above: Result Comment: Elec tronically Signed By: Ash Hurd PA-C\.br\Date and Time Signed: 07/09/20 12:05 EST\.br\Electronically Co-Signed By: Mark Field DO\.br\Date and Time Co-Signed: 07/16/20 13:18 EST Coding Summary.on 07-11-2020 Coding Summary. CODING DATE: 020 FINAL [facility] STATUS: Home (Routine DC) PAYOR: Medicare APC DESCRIPTION 5051 Level 1 Skin Procedures 5023 Level 3 Type A ED Visits ADMIT DX: REASON FOR VISIT DX: M79.89 Other specified soft tissue disorders FINAL DX: PRINCIPAL: L02.214 Cutaneous abscess of groin SECONDARY: E11.22 Type 2 diabetes mellitus with diabetic chronic kidney disease F17.210 Nicotine dependence, cigarettes, uncomplicated I12.9 Hypertensive chronic kidney disease with stage 1 through stage 4 chronic kidney disease, or unspecified chronic kidney disease G35 Multiple sclerosis N18.2 Chronic kidney disease, stage 2 (mild) Z79.4 longterm (current) use of insulin Z79.899 Other mcfp (current) drug therapy PYMT PROC APC STAT DESCRIPTION DOCTOR NAME DATE NOTE: The code number assigned matches the documented diagnosis and / or procedure in the patient's chart. However, the narrative phrase printed from the coding software may appear abbreviated, or result in slightly different terminology. Revised Coded By: Silva Bhardwaj Revised Date Saved: 07/11/2020 01:30 pm [facility] Consent for Treatmenton Consent for Treatment [id number]:12 [id number] Normal [facility] Discharge Instructionson Discharge Instructions [id number]:1 27 Normal [facility] ED Clinical Summaryon 2019 ED Clinical Summary (Inserted Image. Jody ble to display) [place] [id number] ED Clinical Summary Person Information Name: KERLINE CHANG [place] Age: 50 Years : 1970 Sex: Male Language: Arabic PCP: NISA ROJAS MD Marital Status: Visit Id: Visit Reason: Groin pain; BOIL IN GROIN AREA Speciality: Acuity: 3 Enc Type: Emergency Med Service: Emergency Arrival: 07/09/2020 10:35:49 Discharge: 07/09/2020 12:24:34 LOS: 000 01:49 Checkin: 07/09/2020 10:35:49 Checkout: 07/09/2020 12:24:34 Dispo Type: Home (Routine DC) EVENTS: Event Name Event Status Request Date/Time Start Date/Time Complete Date/Time Arrive Complete 07/09/2020 10:35:49 07/09/2020 10:35:49 07/09/2020 10:35:49 Document Home Meds Request 07/09/2020 10:35:49 Triage Complete 07/09/2020 10:35:49 07/09/2020 10:43:32 07/09/2020 10:43:32 Bed Assign Complete 07/09/2020 10:43:47 07/09/2020 10:43:47 07/09/2020 10:43:47 Dr Exam Complete 07/09/2020 10:43:47 07/09/2020 10:44:02 07/09/2020 10:44:02 RN Exam Complete 07/09/2020 10:43:47 07/09/2020 11:02:03 07/09/2020 11:02:03 Registration Complete 07/09/2020 10:44:02 07/09/2020 11:00:55 07/09/2020 11:00:55 Reg Complete Request 07/09/2020 11:00:55 Meds Admin Complete 07/09/2020 11:02:56 07/09/2020 11:47:01 Patient Care Request 07/09/2020 11:02:56 Pending Labs Collected 07/09/2020 11:02:56 Lab Collected 07/09/2020 11:02:56 Meds Admin Request 07/09/2020 11:08:00 Pending Labs Cancel 07/09/2020 11:08:00 07/09/2020 11:08:00 07/09/2020 11:32:17 Blood Collect Request 07/09/2020 11:08:00 07/09/2020 11:08:00 Patient Care Cancel 07/09/2020 11:08:00 07/09/2020 11:10:37 Pending Labs Complete 07/09/2020 11:26:10 07/09/2020 11:26:10 07/09/2020 11:26:11 Discharge Complete 07/09/2020 11:58:47 07/09/2020 12:24:47 07/09/2020 12:24:47 Transfer Complete 07/09/2020 12:24:47 07/09/2020 12:24:47 07/09/2020 12:24:47 [address] [facility] [id number] PHYS DOC NOTES: MEDICAL INFORMATION: Prescriptions Given: New Medications Printed Prescriptions cephalexin (Keflex 500 mg Cap) 1 Capsules By Mouth 4 times a day. Take one capsule by mouth four times a day. Refills: 0. sulfamethoxazole-trimetho prim (Bactrim D.S. 800 mg-160 mg Tab) 2 Tablets By Mouth 2 times a day for 10 Days. Refills: 0. Medications to Continue with No Changes Other Medications bimatoprost ophthalmic (Lumigan 0.01% ophthalmic solution) 1 Drops Ophthalmic once a day (in the evening). insulin glargine (Lantus) 10 Units Subcutaneous every day as needed prn. Non-Formulary Medication (Misc Medication) Medical Marijuana vaporizer takes 1-2 puffs 3-4 times a day . PATIENT EDUCATION INFORMATION: Instructions: Incision and Drainage, Care After Follow up: With: Address: When: [address], [address] [place], [place] [id number] Business (1) In 3 days 07/12/2020 DIAGNOSIS: 1:Abscess of left groin Normal [facility] ED Patient Education Noteon 07-09-2020 ED Patient Education Note Family Medicine Incision and Drainage Care After Refer to this sheet in the next few weeks. These instructions provide you with information on caring for yourself after your procedure. Your caregiver may also give you more specific instructions. Your treatment has been planned according to current medical practices, but problems sometimes occur. Call your caregiver if you have any problems or questions after your procedure. HOME CARE INSTRUCTIONS ? If antibiotic medicine is given, take it as directed. Finish it even if you start to feel better. ? Only take jrhk-kif-kxedjwm or prescription medicines for pain, discomfort, or fever as directed by your caregiver. ? Keep all follow-up appointments as directed by your caregiver. ? Change any bandages (dressings) as directed by your caregiver. Replace old dressings with clean dressings. ? Wash your hands before and after caring for your wound. You will receive specific instructions for cleansing and caring for your wound. SEEK MEDICAL CARE IF: ? You have increased pain, swelling, or redness around the wound. ? You have increased drainage, smell, or bleeding from the wound. ? You have muscle aches, chills, or you feel generally sick. ? You have a fever. MAKE SURE YOU: ? Understand these instructions. ? Will watch your condition. ? Will get help right away if you are not doing well or get worse. Document Released: 10/12/2012 Document Reviewed: 10/12/2012 ExitCare? Patient Information ?2014 [employer]. This information is not intended to replace advice given to you by your health care provider. Make sure you discuss any questions you have with your health care provider. Normal [facility] ED Patient Summaryon 020 ED Patient Summary (Inserted Image. Jody ble to display) [place] [id number] Patient Discharge Instructions Person Information Name: KERLINE CHANG Age: 50 Years Arrival Date: 07/09/2020 10:35:49 Discharge Diagnosis: 1:Abscess of left groin Primary Care Physician: NISA ROJAS MD Provider Information Primary Provider: Advanced Survey Manager:Ash Hurd PA-C The exam and treatment you received in the Emergency Department were for an urgent problem and are not intended as complete care. It is important that you follow up with a doctor, nurse practitioner, or physician?s paralegal assistant for ongoing care. If your symptoms become worse or you do not improve as expected and you are unable to reach your usual health care provider, you should return to the Emergency Department. We are available 24 hours a day. KERLINE CHANG has been given the following list of patient education materials, prescriptions and follow-up instructions: Follow-up Instructions: With: Address: When: NISA ROJAS [address] [place] [address], [address] [place] [phone] Business (1) In 3 days 07/12/2020 In the event that this physician does not participate in your insurance network, please consult with your insurance company to find a nearby participating provider. Patient Education Materials: Incision and Drainage, Care After A MESSAGE TO ALL PATIENTS REGARDING OPIOIDS PRESCRIPTION OPIOIDS: WHAT YOU NEED TO KNOW Prescription opioids can be used to help relieve dqtsnalp-lr-hkarxv pain and are often prescribed following a surgery or injury, or for certain health conditions. These medications can be an important part of the treatment but also come with serious risks. It is important to work with your healthcare provider to make sure you are getting the safest, most effective care. WHAT ARE THE RISKS AND SIDE EFFECTS OF OPIOID USE? Prescription opioids carry serious risks of addiction and overdose, especially with prolonged use. An opioid overdose, often marked by slowed breathing, can cause sudden . The use of prescription opioids can have a number of side effects as well, even when taken as directed: ? Tolerance?meaning you might need to take more of the medication for the same pain relief ? Physical dependence?meaning you have symptoms of withdrawal when a medication is stopped ? Increased sensitivity to pain ? Constipation ? Nausea, vomiting, and dry mouth ? Sleepiness and dizziness ? Confusion ? Depression ? Low levels of testosterone that can result in lower sex drive, energy, and strength ? Itching and sweating RISKS ARE GREATER WITH: ? History of drug misuse, substance use disorder, or overdose ? Mental health conditions (such as depression or anxiety) ? Sleep apnea ? Older age (65 years and older) ? Avoid alcohol while taking prescription opioids. Also, unless specifically advised by your health care provider, medications to avoid include: ? Benzodiazepines (such as Xanax or Valium) ? Muscle relaxants (such as Soma or Flexeril) ? Hypnotics (such as Ambien or Lunesta) ? Other prescription opioids KNOW YOUR OPTIONS Talk to your health care provider about ways to manage your pain that don?t involve prescription opioids. Some of these options may actually work better and have fewer risks and side effects. Options may include: ? Pain relievers such as acetaminophen, ibuprofen, and naproxen ? Some medication that are also used for depression or seizures ? Physical therapy and exercise ? Cognitive behavioral therapy, a psychological, goal-directed approach, in which patients learn how to modify physical, behavioral, and emotional triggers of pain and stress. IF YOU ARE PRESCRIBED OPIOIDS FOR PAIN: ? Never take opioids in greater amounts or more often than prescribed. ? Follow up with your primary health care provider. o Work together to create a plan on how to manage your pain. o Talk about ways to help manage your pain that don?t involve prescription opioids. o Talk about any and all concerns and side effects. ? Help prevent misuse and abuse o Never sell or share prescription opioids. o Never use another person?s prescription opioids. ? Store prescription opioids in a secure place and out of reach of others (this may include visitors, children, friends, and family). ? Safely dispose of unused prescription opioids: Find your community drug take-back program or your pharmacy mail-back program, or flush them down the toilet, following guidance from the Food and Drug Administration (www.fda.gov/Drugs/Resour cesForYou). ? Visit www.cdc.gov/drugoverdose to learn about the risks of opioids abuse and overdose. ? If you believe you may be struggling with addiction, tell your health respiratory care faculty and ask for guidance or call [facility]?S National Helpline at 5-711-199-JBPO. v Source: U (more content not included)... Normal [facility] Ambulatory Clinical Summaryo n 07-07-2020 Ambulatory Clinical Summary {[id number] Normal [facility] Patient Educationon 07-07-20 20 Patient Education Family Medicine Erectile Dysfunction Erectile dysfunction (ED) is the inability to get a good enough erection to have sexual intercourse. ED may involve: ? Inability to get an erection. ? Lack of enough hardness to allow penetration. ? Loss of the erection before sex is finished. ? Premature ejaculation. ? Any combination of these problems if they occur more than 25% of the time. CAUSES ? Certain drugs, such as: ? Pain relievers. ? Antihistamines. ? Antidepressants. ? Blood pressure medicines. ? Water pills. ? Ulcer medicines. ? Muscle relaxants. ? Illegal drugs. ? Excessive drinking. ? Psychological causes, such as: ? Anxiety. ? Depression. ? Sadness. ? Exhaustion. ? Performance fear. ? Stress. ? Physical causes, such as: ? Artery problems. This may include diabetes, smoking, liver disease, or atherosclerosis. ? High blood pressure. ? Hormonal problems, such as low testosterone. ? Obesity. ? Nerve problems. This may include back or pelvic injuries, diabetes, multiple sclerosis, Parkinson's disease, or some surgeries. SYMPTOMS ? Inability to get an erection. ? Lack of enough hardness to allow penetration. ? Loss of the erection before sex is finished. ? Premature ejaculation. ? Normal erections at some times, but with frequent unsatisfactory episodes. ? Orgasms that are not satisfactory in sensation or frequency. ? Low sexual satisfaction in either partner because of erection problems. ? A curved penis occurring with erection. The curve may cause pain or may be too curved to allow for intercourse. ? Never having nighttime erections. DIAGNOSIS Your caregiver can often diagnose this condition by: ? Performing a physical exam to find other diseases or specific problems with the penis. ? Asking you detailed questions about the problem. ? Performing blood tests to check for diabetes or to measure hormone levels. ? Performing urine tests to find other underlying health conditions. ? Performing an ultrasound to check for scarring. ? Performing a test to check blood flow to the penis. ? Doing a sleep study at home to measure nighttime erections. TREATMENT ? You may be prescribed medicines by mouth. ? You may be given medicine injections into the penis. ? You may be prescribed a vacuum pump with a ring. ? Penile implant surgery may be performed. You may receive: ? An inflatable implant. ? A semi-rigid implant. ? Blood vessel surgery may be performed. HOME CARE INSTRUCTIONS ? Take all medicine as directed by your caregiver. Do not take any other medicines without talking to your caregiver first. ? Follow your caregiver's directions for specific treatments as prescribed. ? Follow up with your caregiver as directed. Document Released: 07/18/2001 Document Revised: 10/12/2012 Document Reviewed: 11/10/2011 ExitCare? Patient Information ?2013 [employer] [facility] Urology Office/Clinic Noteon 07-07-2020 Urology Office/Clinic Note Chief Complaint Pt is here c/o ED This patient is a 50-year-old gentleman with a history of multiple medical problems. These problems include diabetes, multiple sclerosis, chronic pain syndrome, erectile dysfunction and voiding problems. His last visit was in July 2019. He was scheduled for work-up including cystoscopic examination however the patient never had the procedure done and had not seen him in the office since his visit in July 2018. HPI Staff pt is having some urinary concerns with post dripping, urgency and nocturia. Pt states that he is having an issue with ED, pt has tried Sildenafil in the past. Pt is using medical marijuana. History of Present Illness reviewed last encounter. Reviewed UA. There have been no associated fever, chills, flank pain or blood in the urine. Pt is not having any burning. Review of Systems PHQ Score Initial Depression Screen Score: 0 ROS - Provider Constitutional: denies weight loss, denies hot flashes. Eyes: denies eye problems. Gastrointestinal: denies nausea, denies vomiting. Cardiovascular: denies chest pain or angina. Integumentary: no dryness Musculoskeletal: denies musculoskeletal symptoms. ENMT: denies otopharyngeal symptoms. Respiratory: no shortness of breath. Heme/Lymph: denies easy bleeding tendency, denies easy bruising tendency. Psychiatric: no confusion, no anxiety. Genitourinary: denies dysuria, denies hematuria, denies discharge, denies urinary frequency, denies urinary hesitancy, denies nocturia, denies incontinence, denies genital sores, denies decreased libido, and denies erectile dysfunction. Physical Exam Vitals & Measurements HR: 79(Peripheral) RR: 18 BP: 150/79 HT: 178 cm HT: 178.0 cm WT: 175.8 kg WT: 175.8 kg BMI: 55.49 General Appearance: alert, no distress, well nourished, well developed male. Flank Pain: none. Bladder: nonpalpable. Assessment/Plan This patient states that he has problems with erectile dysfunction. When I asked him questions about erectile dysfunction and/or his voiding problems he became belligerent and refused to answer. He is a lot of time complaining that he had to wait for his office visit and thought that he was supposed to see Dr. Tracey. I cannot determine why he was so angry and because he would not answer any of my questions I offered to schedule him with Dr. Tracey if he so chose. This seem to make him more unhappy and he became injury and then he became belligerent and then became downright nasty. I finally asked him to leave the office and after rescheduling for time he was more able to have a conversation without the aggression. He left the office with a tirade of profanity. 1. ED (erectile dysfunction) (N52.9: Male erectile dysfunction, unspecified) Sildenafil does not work for the pt, he has tried this in the past with no success. Ordered: Urnls Dip Stick Auto w/o Microscopy POC 28632 2. Nocturia (R35.1: Nocturia) mild, 2x a night 3. Post-void dribbling (N39.43: Post-void dribbling) mild symptoms. 4. Weak urinary stream (R39.12: Poor urinary stream) pt is expressing a weak urinary stream. 5. Smoker 03-FEB-2014 12:37:00<$> (F17.200: Nicotine dependence, unspecified, uncomplicated) Discussed smoking cessation. I have reviewed the previous health record information and history for this patient from Dr. Mary Follow-up With When Contact Information Usman Cage MD, Saud [facility] [address], [place] [id number]- Additional Instructions: Patient Education Erectile Dysfunction I, Amaya Man, personally scribed for Dr. Mary on 07/07/2020 14:14:01. . Documentation recorded by the scribe, Adri Wick, accurately reflects the services(s) I performed and decisions made by me. Authenticated by Dr. Mary on 07/07/2020 14:25:22. Problem List/Past Medical History Ongoing Arthritis CKD (chronic kidney disease) stage 2, GFR 60-89 ml/min DM - Diabetes mellitus ED (erectile dysfunction) Former smoker SUKHJINDER (generalized anxiety disorder) Glaucoma HTN - Hypertension IBS (irritable bowel syndrome) Lung nodule Lymphedema Lymphedema MS (multiple sclerosis) MS - Multiple sclerosis Neck pain Nocturia Obesity Osteoarthritis Pain in limb - multiple Post-void dribbling Retrograde ejaculation Smoker 03-FEB-2014 12:37:00<$> Tubular adenoma of rectum Urge incontinence Urine frequency Vertigo Weak urinary stream Historical Atypical migraine MS (multiple sclerosis) TMJ (temporomandibular joint disorder) Procedure/Surgical History Arthroscopy of knee (01/02/2007), Arthroscopy of knee, Biopsy of lesion of temporal lobe, Colonoscopy. Medications aliskiren-hydrochlorothia zide 300 mg-25 mg oral tablet, 1 tab(s), Oral, Daily cetirizine, Not taking cyclobenzaprine 5 mg Tab, Oral, TID, Not taking Diclofenac 75mg Tab-DR, Oral, BID dicyclomine 10 mg (more content not included)... Normal [facility] Comment on above: Result Comment: Elec tronically Signed By: Usman Cage MD, Saud Che\.br\Date and Time Signed: 07/07/20 14:25 EST\.br\Electronically Co-Signed By: Amaya Man MA\.br\Date and Time Co-Signed: 07/07/20 14:14 EST ACETONE SERUMon 04-30-2020 ACETONE Negative Normal NEGATIVE [facility] Comment on above: Performed By: #### A CETON #### [facility] [address] [place], [place] [id number] Cristina Charla CBC AUTO DIFFon 04-30-2020 BASO # 0.0 103/ul Normal 0.0-0.1 [facility] Comment on above: Performed By: #### C BC #### [facility] [address] [id number] Cristina Charla Basophils/100 WBC (Bld) 0.4 % Normal 0.2-2.0 [facility] Comment on above: Performed By: #### C BC #### [facility] [address] [place], [place] [id number] Cristina Charla EO # 0.1 103/ul Normal 0.0-0.7 [facility] Comment on above: Performed By: #### C BC #### [facility] [address] [place], [place] [id number] Cristina Charla Eosinophils/100 WBC (Bld) 1.1 % Normal 0.9-7.0 [facility] Comment on above: Performed By: #### C BC #### [facility] [address] [place], [place] [id number] Cristina Charla Erythrocyte distribution width (RBC) [Ratio] 12.8 % Normal 11.0-15.0 [facility] Comment on above: Performed By: #### C BC #### [facility] [address] [place] [address] Cristina Charla Hematocrit (Bld) [Volume fraction] 49.7 % Normal 42.0-54.0 [facility] Comment on above: Performed By: #### C BC #### [facility] [address] [place] [address] Cristina Charla Hemoglobin (Bld) [Mass/Vol] 17.1 g/dL Normal 14.0-18.0 [facility] Comment on above: Performed By: #### C BC #### [facility] [address] [place], [place] [id number] Cristina Charla IG # 0.03 10e3/ul Normal 0.00-0.03 [facility] Comment on above: Performed By: #### C BC #### [facility] [address] [place] [address] Cristina Charla IG % 0.3 % Normal 0.0-0.5 [facility] Comment on above: Performed By: #### C BC #### [facility] [address] [place] [address] Cristina Charla LYMPH # 1.3 103/ul Normal 1.2-3.8 [facility] Comment on above: Performed By: #### C BC #### [facility] [address] [place] [address] Cristina Charla Lymphocytes/100 WBC (Bld) 13.0 % Critically low 20.5-60.0 [facility] Comment on above: Performed By: #### C BC #### [facility] [address] [place] [address] Cristina Charla MANUAL DIFF REQ NO Normal [facility] Comment on above: Performed By: #### C BC #### [facility] [address] [place], [place] [id number] Cristina Charla MCH (RBC) [Entitic mass] 30.1 pg Normal 25.9-34.0 [facility] Comment on above: Performed By: #### C BC #### [facility] [address] [place], [place] [id number] Cristina Charla MCHC (RBC) [Mass/Vol] 34.4 g/dL Normal 29.9-35.2 [facility] Comment on above: Performed By: #### C BC #### [facility] [address] [place], [place] [id number] Cristina Dunham MCV (RBC) [Entitic vol] 87.5 fL Normal 80.0-94.0 [facility] Comment on above: Performed By: #### C BC #### [facility] [address] [place], [place] [address] Cristina Dunham MONO # 0.7 103/ul Normal 0.3-0.8 [facility] Comment on above: Performed By: #### C BC #### [facility] [address] [place], [place] [address] Cristina Dunham Monocytes/100 WBC (Bld) 7.0 % Normal 1.7-12.0 [facility] Comment on above: Performed By: #### C BC #### [facility] [address] [place] [address] Cristina Christyen NEUT # 8.1 103/ul Critically high 1.4-6.5 [facility] [place] Comment on above: Performed By: #### C BC #### [facility] [address] [place], [place] [phone] Cristina Dunham Neutrophils/100 WBC (Bld) 78.2 % Critically high 43.0-75.0 [facility] Comment on above: Performed By: #### C BC #### [facility] [address] [place], [place] [phone] Cristina Dunham Platelet mean volume (Bld) [Entitic vol] 9.7 fL Normal 9.5-13.5 [facility] Comment on above: Performed By: #### C BC #### [facility] [address] [place], [place] [id number] Cristina Charla PLT 386 103/ul Normal 150-450 [facility] Comment on above: Performed By: #### C BC #### [facility] [address] [place], [place] [address] Cristina Charla RBC 5.68 106/ul Normal 4.70-6.10 [facility] Comment on above: Performed By: #### C BC #### [facility] [address] [place], [place] [address] Cristina Dunham WBC 10.3 103/ul Normal 4.0-11.0 [facility] Comment on above: Performed By: #### C BC #### [facility] [address] [place], [place] [address] ABD/PELV W CONon 04-30-[address] ABD/PELV W CON EXAMINATION: CT ABD/ PELV W CON HISTORY: NAUSEA WITH VOMITING, UNSPECIFIED COMPARISON: 05/18/2019 TECHNIQUE: Axial, Coronal, and Sagittal images were created without IV contrast. Dose reduction techniques were achieved by using automated exposure control and/or adjustment of mA and/or kV according to patient size and/or use of iterative reconstruction technique. 100 mL Omnipaque 300 FINDINGS: LUNG BASES: No visible pulmonary or pleural disease. LIVER: No enlargement, atrophy, abnormal density, or significant focal lesion. BILIARY: Cholesterol cholelithiasis without CT evidence of acute cholecystitis PANCREAS: Moderate diffuse atrophy SPLEEN: No enlargement or focal lesion. ADRENALS: 1.2 cm right and 1.8 cm left adrenal masses, stable KIDNEYS: No mass, obstruction, or calcification. BOWEL/MESENTERY: Mild colonic diverticulosis without evidence of acute diverticulitis. Nonobstructive bowel gas pattern. Stable enlarged appendix by strict size criteria measuring 10 mm in diameter with the wall measuring up to 3 mm this is best visualized on axial image 112 no surrounding mesenteric changes or fluid AORTA/VASCULAR: No aneurysm or dissection. RETROPERITONEUM: No mass or adenopathy. LYMPH NODES: No adenopathy. URINARY BLADDER: No visible focal wall thickening, lesion, or calculus. PELVIC ORGANS: No visible mass. Pelvic organs appropriate for patient age. ABDOMINAL WALL: 2 cm umbilical hernia containing mesenteric fat without evidence of strangulation BONES: No bony lesion or fracture. OTHER: Negative. IMPRESSION: No acute intraperitoneal abnormality Cholelithiasis without evidence of acute cholecystitis Enlarged appendix, stable from the prior exam with no secondary signs of inflammation Electronically authenticated by: JORDON OROZCO Date: 2020-04-30 10:58 Normal [facility] LACTATE/LACTIC ACIDon 2019 Lactate [Moles/Vol] 0.8 mmol/L Normal 0.7-2.0 [facility] Comment on above: Performed By: #### L ACT #### [facility] [address] [place], [place] [id number] Cristinaace Christyen LIPASEon 04-30-2020 Lipase [Catalytic activity/Vol] 80.0 U/L Normal 23.0-300.0 [facility] Comment on above: Performed By: #### L IPA, CMP #### [facility] [address] [place], [place] [phone] Cristinaace Dunham PROF 14(COMP METB)on 020 Albumin [Mass/Vol] 4.3 g/dL Normal 3.5-5.0 [facility] Comment on above: Performed By: #### L IPA, CMP #### [facility] [address] [place] [address] Cristina Charla Albumin/Globulin [Mass ratio] 0.9 {ratio} Normal [facility] Comment on above: Performed By: #### L IPA, CMP #### [facility] [address] [place] [address] Cristina Charla ALP [Catalytic activity/Vol] 163 U/L Critically high 38-126 [facility] Comment on above: Performed By: #### L IPA, CMP #### [facility] [address] [place] [address] Cristina Charla ALT [Catalytic activity/Vol] 37 U/L Normal 21-72 [facility] Comment on above: Performed By: #### L IPA, CMP #### [facility] [address] [place], [place] [address] Cristina Charla Anion gap [Moles/Vol] 13.5 mmol/L Normal [facility] Comment on above: Performed By: #### L IPA, CMP #### [facility] [address] [place], [place] [address] Cristina Charla AST [Catalytic activity/Vol] 22 U/L Normal 17-59 [facility] Comment on above: Performed By: #### L IPA, CMP #### [facility] [address] [place], [place] [address] Cristina Charla Bilirubin [Mass/Vol] 0.7 mg/dL Normal 0.2-1.3 [facility] Comment on above: Performed By: #### L IPA, CMP #### [facility] [address] [place] [address] Cristina Charla Calcium [Mass/Vol] 9.4 mg/dL Normal 8.4-10.2 [facility] Comment on above: Performed By: #### L IPA, CMP #### [facility] [address] [place] [address] Cristina Charla Chloride [Moles/Vol] 96 mmol/L Critically low 98-107 [facility] Comment on above: Performed By: #### L IPA, CMP #### [facility] [address] [place] [address] Cristina Charla CO2 [Moles/Vol] 25.0 mmol/L Normal 22.0-30.[address] [facility] Comment on above: Performed By: #### L IPA, CMP #### [facility] [address] [place] [address] Cristina Charla Creatinine [Mass/Vol] 1.75 mg/dL Critically high 0.66-1.25 [facility] Comment on above: Performed By: #### L IPA, CMP #### [facility] [address] [place] [address] Cristina Charla EGFR-AF GERMAN 51 mL/min/1.73m2 Critically low >=60 [facility] Comment on above: Performed By: #### L IPA, CMP #### [facility] [address] [place] [address] Cristina Charla EGFR-NON AF GERMAN 42 mL/min/1.73m2 Critically low >=60 [facility] Comment on above: Performed By: #### L IPA, CMP #### [facility] [address] [place] [address] Cristina Charla Globulin (S) [Mass/Vol] 4.6 g/dL Normal [facility] Comment on above: Performed By: #### L IPA, CMP #### [facility] [address] [place] [address] Cristina Charla Glucose [Mass/Vol] 204 mg/dL Critically high 74-106 [facility] Comment on above: Performed By: #### L IPA, CMP #### [facility] [address] [address] Cristina Charla Potassium [Moles/Vol] 4.5 mmol/L Normal 3.4-5.0 [facility] Comment on above: Performed By: #### L IPA, CMP #### [facility] [address] [address] Cristina Charla Protein [Mass/Vol] 8.9 g/dL Critically high 6.1-8.2 [facility] Comment on above: Performed By: #### L IPA, CMP #### [facility] [address] [address] Cristina Charla Sodium [Moles/Vol] 130 mmol/L Critically low 137-145 [facility] Comment on above: Performed By: #### L IPA, CMP #### [facility] [address] [address] Cristina Charla Urea nitrogen [Mass/Vol] 41.0 mg/dL Critically high 9.0-20.0 [facility] Comment on above: Performed By: #### L IPA, CMP #### [facility] [address] [place] [address] Cristina Charla Urea nitrogen/Creatinine [Mass ratio] 23.4 mg/mg Normal [facility] Comment on above: Performed By: #### L IPA, CMP #### [facility] [address] [id number] Cristina Charla XR Knee - right 4 Viewson * * *Final Report* * * DATE OF EXAM: Apr 17 2020 1:21PM [id number] - XR KNEE 4V AP/PA BOTH+LAT/JESSICA RT / PROCEDURE REASON: Primary osteoarthritis of right knee * * * * Physician Interpretation * * * * HISTORY: Primary osteoarthritis of right knee . rt knee pain TECHNIQUE: XR KNEE 4V AP/PA BOTH+LAT/JESSICA RT Laterality: RIGHT Number of different views (projections): 4 COMPARISON: 12/13/2014 RESULT: Moderate to marked lateral compartment narrowing with mild genu valgus deformity. Mild to moderate patellofemoral compartment narrowing. Moderate lateral patellofemoral compartment osteophytes. No fractures. No joint effusion. Tiny metallic radiodensity again seen in the lateral anterior aspect of the knee in the region of the distal patellar tendon. No other significant abnormality. DIVISION OF RADIOLOGY Provider, [facility] - 04/17/2020 * * *Final Report* * * DATE OF EXAM: Apr 17 2020 1:21PM [id number] - XR KNEE 4V AP/PA BOTH+LAT/JESSICA RT / PROCEDURE REASON: Primary osteoarthritis of right knee * * * * Physician Interpretation * * * * HISTORY: Primary osteoarthritis of right knee . rt knee pain TECHNIQUE: XR KNEE 4V AP/PA BOTH+LAT/JESSICA RT Laterality: RIGHT Number of different views (projections): 4 COMPARISON: 12/13/2014 RESULT: Moderate to marked lateral compartment narrowing with mild genu valgus deformity. Mild to moderate patellofemoral compartment narrowing. Moderate lateral patellofemoral compartment osteophytes. No fractures. No joint effusion. Tiny metallic radiodensity again seen in the lateral anterior aspect of the knee in the region of the distal patellar tendon. No other significant abnormality. IMPRESSION IMPRESSION: MODERATE TO MARKED DEGENERATIVE CHANGES LEFT KNEE PROGRESSED FROM PRIOR EXAMINATION. Radio Commentator: PSCB Transcribe Date/Time: Apr 17 2020 1:24P Dictated by : PANKAJ BRANHAM MD This examination was interpreted and the report reviewed and electronically signed by: PANKAJ BRANHAM MD on Apr 17 2020 1:26PM [facility] Radiology Study observation (narrative) [facility] XR Knee - right 4 ViewsOrder ed By: Ccf Provider on 04-17-2020 [facility] CARDIAC STRESS/REST INJE CTIONon 11-22-2019 [facility] CARDIAC STRESS/REST INJECTION Patient Name: KERLINE CHANG STUDY: MYOCARDIAL PERFUSION STRESS TEST WITH LEXISCAN Performing facility: [facility], [address] [place] [address], [address], [place] [address] Provider: Nisa Rojas MD PCP: Jesus Auguste Supervising provider: Blaze Hebert MD, [facility] INDICATION: SOB; HISTORY: Gender: M; Age: 49 y/o ; Height: 177.8 cm; Weight: 368.2321889 kg. High Cholesterol; Diabetes; Previous OR; Family HX CAD; HTN; SOB; Quit smoking < 1 years ago. COMPARISON: Previous nuclear testing completed at [facility]. ACCESSION NUMBER(S): [id number]; [id number]; [id number] ORDERING CLINICIAN: NISA ROJAS TECHNIQUE: TWO DAY protocol. Stress injection: Date:11/22/2019, 33.4 mCi of Myoview IV 20 seconds after rapid injection of Lexiscan. Rest injection: Date: 11/23/2019, 34.4 mCi of Myoview IV at rest. The patient had a rapid injection of 0.4 mg of Lexiscan IV over 10 seconds. Imaging was performed by gated tomographic technique. Reason for Lexiscan: SOB STRESS TEST DATA: Resting heart rate was 79 BPM. Resting blood pressure was 178/84 mmHg. Peak blood pressure was 180/84 mmHg. Peak heart rate was 89 BPM. TEST TERMINATED DUE TO: Protocol completed FINDINGS: STRESS TEST RESULTS: Resting electrocardiogram revealed normal sinus rhythm without ST-T changes. There were no significant ischemic ECG changes or dysrhythmias. The patient did not have chest pains/symptoms during procedure. There was a normal recovery phase. IMAGING RESULTS: Image quality was good. Rest and stress tomographic images were reviewed and revealed normal perfusion without evidence of ischemia, myocardial infarction, or left ventricular dilatation with stress. Overall left ventricular systolic function appeared to be normal without regional wall motion abnormalities. Ejection fraction was 52%. TID is 1.04 and is normal. There was no evidence of attenuation artifact. IMPRESSION: Normal Lexiscan Myoview cardiac perfusion stress test. No evidence of ischemia or myocardial infarction by perfusion imaging. Normal left ventricular systolic function, ejection fraction 52%. No significant changes by comparison to prior study from the images standpoint. Electronically signed by: NETTA DHILLON MD Normal [facility] CARDIAC STRESS/REST FOREIGN CTIONon 04-26-2019 [facility] CARDIAC STRESS/REST INJECTION Patient Name: KERLINE CHANG STUDY: MYOCARDIAL PERFUSION STRESS TEST WITH EXERCISE CONVERTED TO LEXISCAN Performing facility: [facility], [address] [place] [address], [address], [place] [address] PCP: Dr. Joyce Rojas Supervising provider: Ira Bolivar MD, [facility] INDICATION: SOB HISTORY: Gender: M; Age: 48 y/o ; Height: 177.8 cm; Weight: 154.345585 kg. High Cholesterol; Diabetes; HTN; Family HX CAD; Previous OR; MS Currently smoking. COMPARISON: No comparison. ACCESSION NUMBER(S): [id number]; [id number]; [id number] ORDERING CLINICIAN: NISA ROJAS TECHNIQUE: TWO DAY protocol. Stress injection: Date: 04/26/19, 35 mCi of Myoview IV at 20 seconds after rapid injection of Lexiscan. Rest injection: Date: 04/27/19, 35.1 mCi of Myoview IV at rest. The patient had a rapid injection of 0.4mg of Lexiscan IV over 10 seconds. Imaging was performed by gated tomographic technique. STRESS TEST DATA: Resting heart rate was 74 BPM. Resting blood pressure was 178/110 mmHg. The patient exercised using a Otilio exercise protocol. 1:34 minutes exercised. 76% of MPHR achieved for age. 3.8 METS achieved. Maximum heart rate was 133 BPM. Maximum blood pressure was 220/110 mmHg. DTS 1. TREADMILL TEST TERMINATED DUE TO: patient inability to continue Due To SOB. Test converted to Lexiscan. TEST TERMINATED DUE TO: Protocol completed. FINDINGS: STRESS TEST RESULTS: Resting electrocardiogram revealed normal sinus rhythm. The patient had no significant ECG changes with maximal stress. The patient did not have chest pains/symptoms during the procedure, the patient became severely short of breath while on the treadmill leading to termination of the treadmill stress test. There was a normal recovery phase. There were no significant dysrhythmias. Patient did not achieve 85% MPHR so test was immediately converted to Lexiscan. LEXISCAN INFUSION: The patient had a rapid injection of 0.4 mg of Lexiscan IV over 10 seconds. Resting electrocardiogram revealed normal sinus rhythm. The patient had no significant ECG changes with maximal stress. The patient did not have chest pains/symptoms during the procedure. There was a normal recovery phase. There were no significant dysrhythmias. IMAGING RESULTS: Image quality was good. Rest and stress tomographic images were reviewed and revealed normal perfusion without evidence of ischemia, myocardial infarction, or left ventricular dilatation with stress. Overall left ventricular systolic function appeared to be normal without regional wall motion abnormalities. LV ejection fraction was 55 %. TID is 0.968 and is normal. There was no evidence of attenuation artifact. IMPRESSION: Normal Lexiscan Myoview cardiac perfusion imaging stress test. No evidence of ischemia or myocardial infarction by perfusion imaging. Normal left ventricular systolic function, ejection fraction 55 %. No exercise provoked significant ischemic ECG changes or chest pain symptoms. No previous studies are available for comparison. Electronically signed by: IRA BOLIVAR MD Normal [facility] Vital Signs Date Time Vital Sign Value Performing Clinician Facility 01-01-2025 10:34-0400 Respiratory rate 16 /min Nisa Rojas MD Work Phone: [facility] 01-01-2025 10:34-0400 SaO2% (BldA) [Mass fraction] 99 % Nisa Rojas MD Work Phone: [facility] 01-01-2025 10:29-0400 Body height 175.26 cm Nisa Rojas MD Work Phone: [facility] 01-01-2025 10:29-0400 Body temperature 98 [degF] Nisa Rojas MD Work Phone: [facility] 01-01-2025 10:29-0400 Body weight 160 kg Nisa Rojas MD Work Phone: [facility] 01-01-2025 10:29-0400 Diastolic blood pressure 103 mm[Hg] Nisa Rojas MD Work Phone: [facility] 01-01-2025 10:29-0400 Heart rate 72 /min Nisa Rojas MD Work Phone: [facility] 01-01-2025 10:29-0400 Systolic blood pressure 206 mm[Hg] Nisa Rojas MD Work Phone: [facility] 12-30-2024 21:40-0400 Diastolic blood pressure 78 mm[Hg] Nisa Rojas MD Work Phone: [facility] 12-30-2024 21:40-0400 Heart rate 73 /min Nisa Rojas MD Work Phone: [facility] 12-30-2024 21:40-0400 Respiratory rate 22 /min Nisa Rojas MD Work Phone: [facility] 12-30-2024 21:40-0400 SaO2% (BldA) [Mass fraction] 96 % Nisa Rojas MD Work Phone: [facility] 12-30-2024 21:40-0400 Systolic blood pressure 157 mm[Hg] Nisa Rojas MD Work Phone: [facility] 12-30-2024 19:25-0400 Body height 175.26 cm Nisa Rojas MD Work Phone: [facility] 12-30-2024 19:25-0400 Body weight 164.6 kg Nisa Rojas MD Work Phone: [facility] 12-30-2024 19:24-0400 Body temperature 98.2 [degF] Nisa Rojas MD Work Phone: [facility] 12-30-2024 09:46-0400 Body height 175.3 cm Nisa Rojas MD Work Phone: [facility] 12-30-2024 09:46-0400 Body mass index (BMI) [Ratio] 51.39 kg/m2 Nisa Rojas MD Work Phone: [facility] 12-30-2024 09:46-0400 Body weight 157.85 kg Nisa Rojas MD Work Phone: [facility] 12-30-2024 09:46-0400 Heart rate 67 /min Nisa Rojas MD Work Phone: [facility] 12-30-2024 09:46-0400 SaO2% (BldA) [Mass fraction] 97 % Nisa Rojas MD Work Phone: [facility] 12-29-2024 23:19-0400 Body height 175.26 cm Nisa Rojas MD Work Phone: [facility] 12-29-2024 23:19-0400 Body temperature 97.9 [degF] Nisa Rojas MD Work Phone: [facility] 12-29-2024 23:19-0400 Body weight 158.75 kg Nisa Rojas MD Work Phone: [facility] 12-29-2024 23:19-0400 Diastolic blood pressure 76 mm[Hg] Nisa Rojas MD Work Phone: [facility] 12-29-2024 23:19-0400 Heart rate 69 /min Nisa Rojas MD Work Phone: [facility] 12-29-2024 23:19-0400 Respiratory rate 20 /min Nisa Rojas MD Work Phone: [facility] 12-29-2024 23:19-0400 SaO2% (BldA) [Mass fraction] 98 % Nisa Rojas MD Work Phone: [facility] 12-29-2024 23:19-0400 Systolic blood pressure 152 mm[Hg] Nisa Rojas MD Work Phone: [facility] 12-29-2024 11:34-0400 Diastolic blood pressure 85 mm[Hg] Nisa Rojas MD Work Phone: [facility] 12-29-2024 11:34-0400 Systolic blood pressure 184 mm[Hg] Nisa Rojas MD Work Phone: [facility] 12-29-2024 10:56-0400 Heart rate 64 /min Nisa Rojas MD Work Phone: [facility] 12-29-2024 10:56-0400 SaO2% (BldA) [Mass fraction] 99 % Nisa Rojas MD Work Phone: [facility] 12-29-2024 10:10-0400 Body height 175.26 cm Nisa Rojas MD Work Phone: [facility] 12-29-2024 10:10-0400 Body temperature 98.3 [degF] Nisa Rojas MD Work Phone: [facility] 12-29-2024 10:10-0400 Body weight 158.75 kg Nisa Rojas MD Work Phone: [facility] 12-29-2024 10:10-0400 Respiratory rate 20 /min Nisa Rojas MD Work Phone: [facility] 12-28-2024 17:41-0400 Body height 175.26 cm Nisa Rojas MD Work Phone: [facility] 12-28-2024 17:41-0400 Body temperature 98.5 [degF] Nisa Rojas MD Work Phone: [facility] 12-28-2024 17:41-0400 Body weight 156.48 kg Nisa Rojas MD Work Phone: [facility] 12-28-2024 17:41-0400 Diastolic blood pressure 126 mm[Hg] Nisa Rojas MD Work Phone: [facility] 12-28-2024 17:41-0400 Heart rate 80 /min Nisa Rojas MD Work Phone: [facility] 12-28-2024 17:41-0400 Respiratory rate 18 /min Nisa Rojas MD Work Phone: [facility] 12-28-2024 17:41-0400 SaO2% (BldA) [Mass fraction] 98 % Nisa Rojas MD Work Phone: [facility] 12-28-2024 17:41-0400 Systolic blood pressure 223 mm[Hg] Nisa Rojas MD Work Phone: [facility] 12-28-2024 11:06-0400 Body height 175.3 cm Nisa Rojas MD Work Phone: [facility] 12-28-2024 11:06-0400 Body mass index (BMI) [Ratio] 52.57 kg/m2 Nisa Rojas MD Work Phone: [facility] 12-28-2024 11:06-0400 Body weight 161.48 kg Nisa Rojas MD Work Phone: [facility] 12-28-2024 11:06-0400 Diastolic blood pressure 90 mm[Hg] Nisa Rojas MD Work Phone: [facility] 12-28-2024 11:06-0400 Heart rate 71 /min Nisa Rojas MD Work Phone: [facility] 12-28-2024 11:06-0400 SaO2% (BldA) [Mass fraction] 98 % Nisa Rojas MD Work Phone: [facility] 12-28-2024 11:06-0400 Systolic blood pressure 128 mm[Hg] Nisa Rojas MD Work Phone: [facility] 12-27-2024 23:27-0400 Body height 175.26 cm Nisa Rojas MD Work Phone: [facility] 12-27-2024 23:27-0400 Body temperature 98.6 [degF] Nisa Rojas MD Work Phone: [facility] 12-27-2024 23:27-0400 Body weight 149.68 kg Nisa Rojas MD Work Phone: [facility] 12-27-2024 23:27-0400 Diastolic blood pressure 103 mm[Hg] Nisa Rojas MD Work Phone: [facility] 12-27-2024 23:27-0400 Heart rate 67 /min Nisa Rojas MD Work Phone: [facility] 12-27-2024 23:27-0400 Respiratory rate 18 /min Nisa Rojas MD Work Phone: [facility] 12-27-2024 23:27-0400 SaO2% (BldA) [Mass fraction] 98 % Nisa Rojas MD Work Phone: [facility] 12-27-2024 23:27-0400 Systolic blood pressure 154 mm[Hg] Nisa Rojas MD Work Phone: [facility] 12-27-2024 12:04-0400 Body temperature 97.7 [degF] Nisa Rojas MD Work Phone: [facility] 12-27-2024 12:04-0400 Diastolic blood pressure 103 mm[Hg] Nisa Rojas MD Work Phone: [facility] 12-27-2024 12:04-0400 Heart rate 72 /min Nisa Rojas MD Work Phone: [facility] 12-27-2024 12:04-0400 Respiratory rate 18 /min Nisa Rojas MD Work Phone: [facility] 12-27-2024 12:04-0400 SaO2% (BldA) [Mass fraction] 98 % Nisa Rojas MD Work Phone: [facility] 12-27-2024 12:04-0400 Systolic blood pressure 173 mm[Hg] Nisa Rojas MD Work Phone: [facility] 12-27-2024 12:03-0400 Body height 175.26 cm Nisa Rojas MD Work Phone: [facility] 12-27-2024 12:03-0400 Body weight 149.68 kg Nisa Rojas MD Work Phone: [facility] 12-26-2024 22:22-0400 Body height 175.26 cm Nisa Rojas MD Work Phone: [facility] 12-26-2024 22:22-0400 Body temperature 98.2 [degF] Nisa Rojas MD Work Phone: [facility] 12-26-2024 22:22-0400 Body weight 149.68 kg Nisa Rojas MD Work Phone: [facility] 12-26-2024 22:22-0400 Diastolic blood pressure 98 mm[Hg] Nisa Rojas MD Work Phone: [facility] 12-26-2024 22:22-0400 Heart rate 69 /min Nisa Rojas MD Work Phone: [facility] 12-26-2024 22:22-0400 Respiratory rate 16 /min Nisa Rojas MD Work Phone: [facility] 12-26-2024 22:22-0400 SaO2% (BldA) [Mass fraction] 95 % Nisa Rojas MD Work Phone: [facility] 12-26-2024 22:22-0400 Systolic blood pressure 192 mm[Hg] Nisa Rojas MD Work Phone: [facility] 12-26-2024 15:07-0400 Body height 175.26 cm Nisa Rojas MD Work Phone: [facility] 12-26-2024 15:07-0400 Body temperature 98.4 [degF] Nisa Rojas MD Work Phone: [facility] 12-26-2024 15:07-0400 Body weight 149.68 kg Nisa Rojas MD Work Phone: [facility] 12-26-2024 15:07-0400 Diastolic blood pressure 98 mm[Hg] Nisa Rojas MD Work Phone: [facility] 12-26-2024 15:07-0400 Heart rate 73 /min Nisa Rojas MD Work Phone: [facility] 12-26-2024 15:07-0400 Respiratory rate 22 /min Nisa Rojas MD Work Phone: [facility] 12-26-2024 15:07-0400 SaO2% (BldA) [Mass fraction] 98 % Nisa Rojas MD Work Phone: [facility] 12-26-2024 15:07-0400 Systolic blood pressure 164 mm[Hg] Nisa Rojas MD Work Phone: [facility] 12-25-2024 23:24-0400 Body height 175.26 cm Nisa Rojas MD Work Phone: [facility] 12-25-2024 23:24-0400 Body temperature 97.7 [degF] Nisa Rojas MD Work Phone: [facility] 12-25-2024 23:24-0400 Body weight 149.68 kg Nisa Rojas MD Work Phone: [facility] 12-25-2024 23:24-0400 Diastolic blood pressure 91 mm[Hg] Nisa Rojas MD Work Phone: [facility] 12-25-2024 23:24-0400 Heart rate 70 /min Nisa Rojas MD Work Phone: [facility] 12-25-2024 23:24-0400 Respiratory rate 18 /min Nisa Rojas MD Work Phone: [facility] 12-25-2024 23:24-0400 SaO2% (BldA) [Mass fraction] 99 % Nisa Rojas MD Work Phone: [facility] 12-25-2024 23:24-0400 Systolic blood pressure 158 mm[Hg] Nisa Rojas MD Work Phone: [facility] 12-25-2024 18:48-0400 Body height 175.26 cm Nisa Rojas MD Work Phone: [facility] 12-25-2024 18:48-0400 Body temperature 98.6 [degF] Nisa Rojas MD Work Phone: [facility] 12-25-2024 18:48-0400 Body weight 161.45 kg Nisa Rojas MD Work Phone: [facility] 12-25-2024 18:48-0400 Diastolic blood pressure 94 mm[Hg] Nisa Rojas MD Work Phone: [facility] 12-25-2024 18:48-0400 Heart rate 82 /min Nisa Rojas MD Work Phone: [facility] 12-25-2024 18:48-0400 Respiratory rate 20 /min Nisa Rojas MD Work Phone: [facility] 12-25-2024 18:48-0400 SaO2% (BldA) [Mass fraction] 98 % Nisa Rojas MD Work Phone: [facility] 12-25-2024 18:48-0400 Systolic blood pressure 177 mm[Hg] Nisa Rojas MD Work Phone: [facility] 12-24-2024 16:44-0400 Diastolic blood pressure 102 mm[Hg] Nisa Rojas MD Work Phone: [facility] 12-24-2024 16:44-0400 Systolic blood pressure 200 mm[Hg] Nisa Rojas MD Work Phone: [facility] 12-24-2024 16:10-0400 Body height 175.26 cm Nisa Rojas MD Work Phone: [facility] 12-24-2024 16:10-0400 Body temperature 97.9 [degF] Nisa Rojas MD Work Phone: [facility] 12-24-2024 16:10-0400 Body weight 156.7 kg Nisa Rojas MD Work Phone: [facility] 12-24-2024 16:10-0400 Heart rate 71 /min Nisa Rojas MD Work Phone: [facility] 12-24-2024 16:10-0400 Respiratory rate 20 /min Nisa Rojas MD Work Phone: [facility] 12-24-2024 16:10-0400 SaO2% (BldA) [Mass fraction] 98 % Nisa Rojas MD Work Phone: [facility] 12-23-2024 23:40-0400 Diastolic blood pressure 78 mm[Hg] Nisa Rojas MD Work Phone: [facility] 12-23-2024 23:40-0400 Systolic blood pressure 152 mm[Hg] Nisa Rojas MD Work Phone: [facility] 12-23-2024 23:35-0400 Body height 175.26 cm Nisa Rojas MD Work Phone: [facility] 12-23-2024 23:35-0400 Body weight 158.25 kg Nisa Rojas MD Work Phone: [facility] 12-23-2024 23:35-0400 Heart rate 108 /min Nisa Rojas MD Work Phone: [facility] 12-23-2024 23:35-0400 Respiratory rate 20 /min Nisa Rojas MD Work Phone: [facility] 12-23-2024 23:35-0400 SaO2% (BldA) [Mass fraction] 97 % Nisa Rojas MD Work Phone: [facility] 12-23-2024 13:15-0400 Diastolic blood pressure 89 mm[Hg] Nisa Rojas MD Work Phone: [facility] 12-23-2024 13:15-0400 Heart rate 68 /min Nisa Rojas MD Work Phone: [facility] 12-23-2024 13:15-0400 Systolic blood pressure 148 mm[Hg] Nisa Rojas MD Work Phone: [facility] 12-22-2024 17:39-0400 Body height 175.26 cm Nisa Rojas MD Work Phone: [facility] 12-22-2024 17:39-0400 Body temperature 98.9 [degF] Nisa Rojas MD Work Phone: [facility] 12-22-2024 17:39-0400 Body weight 149.68 kg Nisa Rojas MD Work Phone: [facility] 12-22-2024 17:39-0400 Diastolic blood pressure 90 mm[Hg] Nisa Rojas MD Work Phone: [facility] 12-22-2024 17:39-0400 Heart rate 76 /min Nisa Rojas MD Work Phone: [facility] 12-22-2024 17:39-0400 Respiratory rate 21 /min Nisa Rojas MD Work Phone: [facility] 12-22-2024 17:39-0400 SaO2% (BldA) [Mass fraction] 98 % Nisa Rojas MD Work Phone: [facility] 12-22-2024 17:39-0400 Systolic blood pressure 160 mm[Hg] Nisa Rojas MD Work Phone: [facility] 12-21-2024 19:06-0400 Body height 175.26 cm Nisa Rojas MD Work Phone: [facility] 12-21-2024 19:06-0400 Body temperature 98.4 [degF] Nisa Rojas MD Work Phone: [facility] 12-21-2024 19:06-0400 Body weight 149.68 kg Nisa Rojas MD Work Phone: [facility] 12-21-2024 19:06-0400 Diastolic blood pressure 106 mm[Hg] Nisa Rojas MD Work Phone: [facility] 12-21-2024 19:06-0400 Heart rate 86 /min Nisa Rojas MD Work Phone: [facility] 12-21-2024 19:06-0400 Respiratory rate 20 /min Nisa Rojas MD Work Phone: [facility] 12-21-2024 19:06-0400 SaO2% (BldA) [Mass fraction] 96 % Nisa Rjoas MD Work Phone: [facility] 12-21-2024 19:06-0400 Systolic blood pressure 212 mm[Hg] Nisa oRjas MD Work Phone: [facility] 12-21-2024 13:39-0400 Body height 175.26 cm Nisa Rojas MD Work Phone: [facility] 12-21-2024 13:39-0400 Body temperature 98 [degF] Nisa Rojas MD Work Phone: [facility] 12-21-2024 13:39-0400 Body weight 149.68 kg Nisa Rojas MD Work Phone: [facility] 12-21-2024 13:39-0400 Diastolic blood pressure 97 mm[Hg] Nisa Rojas MD Work Phone: [facility] 12-21-2024 13:39-0400 Heart rate 73 /min Nisa Rojas MD Work Phone: [facility] 12-21-2024 13:39-0400 Respiratory rate 20 /min Nisa Rojas MD Work Phone: [facility] 12-21-2024 13:39-0400 SaO2% (BldA) [Mass fraction] 98 % Nisa Rojas MD Work Phone: [facility] 12-21-2024 13:39-0400 Systolic blood pressure 125 mm[Hg] Nisa Rojas MD Work Phone: [facility] 12-20-2024 16:17-0400 Body height 175.26 cm Nisa Rojas MD Work Phone: [facility] 12-20-2024 16:17-0400 Body temperature 98.9 [degF] Nisa Rojas MD Work Phone: [facility] 12-20-2024 16:17-0400 Body weight 149.68 kg Nisa Rojas MD Work Phone: [facility] 12-20-2024 16:17-0400 Diastolic blood pressure 89 mm[Hg] Nisa Rojas MD Work Phone: [facility] 12-20-2024 16:17-0400 Heart rate 72 /min Nisa Rojas MD Work Phone: [facility] 12-20-2024 16:17-0400 Respiratory rate 18 /min Nisa Rojas MD Work Phone: [facility] 12-20-2024 16:17-0400 SaO2% (BldA) [Mass fraction] 93 % Nisa Rojas MD Work Phone: [facility] 12-20-2024 16:17-0400 Systolic blood pressure 175 mm[Hg] Nisa Rojas MD Work Phone: [facility] 12-19-2024 18:39-0400 Body height 175.26 cm Nisa Rojas MD Work Phone: [facility] 12-19-2024 18:39-0400 Body temperature 98.3 [degF] Nisa Rojas MD Work Phone: [facility] 12-19-2024 18:39-0400 Body weight 149.68 kg Nisa Rojas MD Work Phone: [facility] 12-19-2024 18:39-0400 Diastolic blood pressure 86 mm[Hg] Nisa Rojas MD Work Phone: [facility] 12-19-2024 18:39-0400 Heart rate 77 /min iNsa Rojas MD Work Phone: [facility] 12-19-2024 18:39-0400 Respiratory rate 18 /min Nisa Rojas MD Work Phone: [facility] 12-19-2024 18:39-0400 SaO2% (BldA) [Mass fraction] 97 % Nisa Rojas MD Work Phone: [facility] 12-19-2024 18:39-0400 Systolic blood pressure 196 mm[Hg] Nisa Rojas MD Work Phone: [facility] 12-18-2024 23:50-0400 Body height 175.26 cm Nisa Rojas MD Work Phone: [facility] 12-18-2024 23:50-0400 Body temperature 98.5 [degF] Nisa Rojas MD Work Phone: [facility] 12-18-2024 23:50-0400 Body weight 149.68 kg Nisa Rojas MD Work Phone: [facility] 12-18-2024 23:50-0400 Diastolic blood pressure 104 mm[Hg] Nisa Rojas MD Work Phone: [facility] 12-18-2024 23:50-0400 Heart rate 65 /min Nisa Rojas MD Work Phone: [facility] 12-18-2024 23:50-0400 Respiratory rate 20 /min Nisa Rojas MD Work Phone: [facility] 12-18-2024 23:50-0400 SaO2% (BldA) [Mass fraction] 98 % Nisa Rojas MD Work Phone: [facility] 12-18-2024 23:50-0400 Systolic blood pressure 173 mm[Hg] Nisa Rojas MD Work Phone: [facility] 12-17-2024 15:32-0400 Body height 175.26 cm Nisa Rojas MD Work Phone: [facility] 12-17-2024 15:32-0400 Body temperature 98.3 [degF] Nisa Rojas MD Work Phone: [facility] 12-17-2024 15:32-0400 Body weight 149.68 kg Nisa Rojas MD Work Phone: [facility] 12-17-2024 15:32-0400 Diastolic blood pressure 95 mm[Hg] Nisa Rojas MD Work Phone: [facility] 12-17-2024 15:32-0400 Heart rate 76 /min Nisa Rojas MD Work Phone: [facility] 12-17-2024 15:32-0400 Respiratory rate 18 /min Nisa Rojas MD Work Phone: [facility] 12-17-2024 15:32-0400 SaO2% (BldA) [Mass fraction] 98 % Nisa Rojas MD Work Phone: [facility] 12-17-2024 15:32-0400 Systolic blood pressure 143 mm[Hg] Nisa Rojas MD Work Phone: [facility] 12-09-2024 20:21-0400 Body height 175.26 cm Nisa Rojas MD Work Phone: [facility] 12-09-2024 20:21-0400 Body temperature 98.3 [degF] Nisa Rojas MD Work Phone: [facility] 12-09-2024 20:21-0400 Body weight 149.68 kg Nisa Rojas MD Work Phone: [facility] 12-09-2024 20:21-0400 Diastolic blood pressure 111 mm[Hg] Nisa Rojas MD Work Phone: [facility] 12-09-2024 20:21-0400 Heart rate 97 /min Nisa Rojas MD Work Phone: [facility] 12-09-2024 20:21-0400 Respiratory rate 18 /min Nisa Rojas MD Work Phone: [facility] 12-09-2024 20:21-0400 SaO2% (BldA) [Mass fraction] 100 % Nisa Rojas MD Work Phone: [facility] 12-09-2024 20:21-0400 Systolic blood pressure 179 mm[Hg] Nisa Rojas MD Work Phone: [facility] 12-09-2024 08:30-0400 Body temperature 97.7 [degF] Nisa Rojas MD Work Phone: [facility] 12-09-2024 08:30-0400 Diastolic blood pressure 107 mm[Hg] Nisa Rojas MD Work Phone: [facility] 12-09-2024 08:30-0400 Heart rate 73 /min Nisa Rojas MD Work Phone: [facility] 12-09-2024 08:30-0400 Respiratory rate 18 /min Nisa Rojas MD Work Phone: [facility] 12-09-2024 08:30-0400 SaO2% (BldA) [Mass fraction] 98 % Nisa Rojas MD Work Phone: [facility] 12-09-2024 08:30-0400 Systolic blood pressure 154 mm[Hg] Nisa Rojas MD Work Phone: [facility] 12-08-2024 17:41-0400 Diastolic blood pressure 98 mm[Hg] Nisa Rojas MD Work Phone: [facility] 12-08-2024 17:41-0400 Systolic blood pressure 165 mm[Hg] Nisa Rojas MD Work Phone: [facility] 12-08-2024 16:57-0400 Body height 175.26 cm Nisa Rojas MD Work Phone: [facility] 12-08-2024 16:57-0400 Body temperature 98.3 [degF] Nisa Rojas MD Work Phone: [facility] 12-08-2024 16:57-0400 Body weight 149.68 kg Nisa Rojas MD Work Phone: [facility] 12-08-2024 16:57-0400 Heart rate 86 /min Nisa Rojas MD Work Phone: [facility] 12-08-2024 16:57-0400 Respiratory rate 18 /min Nisa Rojas MD Work Phone: [facility] 12-08-2024 16:57-0400 SaO2% (BldA) [Mass fraction] 98 % Nisa Rojas MD Work Phone: [facility] 12-08-2024 11:12-0400 Diastolic blood pressure 88 mm[Hg] Nisa Rojas MD Work Phone: [facility] 12-08-2024 11:12-0400 Heart rate 77 /min Nisa Rojas MD Work Phone: [facility] 12-08-2024 11:12-0400 SaO2% (BldA) [Mass fraction] 98 % Nisa Rojas MD Work Phone: [facility] 12-08-2024 11:12-0400 Systolic blood pressure 142 mm[Hg] Nisa Rojas MD Work Phone: [facility] 12-07-2024 17:07-0400 Body height 175.26 cm Nisa Rojas MD Work Phone: [facility] 12-07-2024 17:07-0400 Body temperature 97.7 [degF] Nisa Rojas MD Work Phone: [facility] 12-07-2024 17:07-0400 Body weight 149.68 kg Nisa Rojas MD Work Phone: [facility] 12-07-2024 17:07-0400 Diastolic blood pressure 94 mm[Hg] Nisa Rojas MD Work Phone: [facility] 12-07-2024 17:07-0400 Heart rate 96 /min Nisa Rojas MD Work Phone: [facility] 12-07-2024 17:07-0400 Respiratory rate 24 /min Nisa Rojas MD Work Phone: [facility] 12-07-2024 17:07-0400 SaO2% (BldA) [Mass fraction] 98 % Nisa Rojas MD Work Phone: [facility] 12-07-2024 17:07-0400 Systolic blood pressure 141 mm[Hg] Nisa Rojas MD Work Phone: [facility] 12-05-2024 12:33-0400 Body height 175.26 cm Nisa Rojas MD Work Phone: [facility] 12-05-2024 12:33-0400 Body temperature 98.3 [degF] Nisa Rojas MD Work Phone: [facility] 12-05-2024 12:33-0400 Body weight 149.68 kg Nisa Rojas MD Work Phone: [facility] 12-05-2024 12:33-0400 Diastolic blood pressure 81 mm[Hg] Nisa Rojas MD Work Phone: [facility] 12-05-2024 12:33-0400 Heart rate 89 /min Nisa Rojas MD Work Phone: [facility] 12-05-2024 12:33-0400 Respiratory rate 22 /min Nisa Rojas MD Work Phone: [facility] 12-05-2024 12:33-0400 SaO2% (BldA) [Mass fraction] 99 % Nisa Rojas MD Work Phone: [facility] 12-05-2024 12:33-0400 Systolic blood pressure 161 mm[Hg] Nisa Rojas MD Work Phone: [facility] 12-02-2024 22:30-0400 Diastolic blood pressure 101 mm[Hg] Nisa Rojas MD Work Phone: [facility] 12-02-2024 22:30-0400 Heart rate 102 /min Nisa Rojas MD Work Phone: [facility] 12-02-2024 22:30-0400 Respiratory rate 26 /min Nisa Rojas MD Work Phone: [facility] 12-02-2024 22:30-0400 SaO2% (BldA) [Mass fraction] 98 % Nisa Rojas MD Work Phone: [facility] 12-02-2024 22:30-0400 Systolic blood pressure 181 mm[Hg] Nisa Rojas MD Work Phone: [facility] 12-02-2024 21:49-0400 Body height 175.26 cm Nisa Rojas MD Work Phone: [facility] 12-02-2024 21:49-0400 Body temperature 99.4 [degF] Nisa Rojas MD Work Phone: [facility] 12-02-2024 21:49-0400 Body weight 151.4 kg Nisa Rojas MD Work Phone: [facility] 11-29-2024 13:10-0400 Body height 175.3 cm Nisa Rojas MD Work Phone: [facility] 11-29-2024 13:10-0400 Body mass index (BMI) [Ratio] 47.85 kg/m2 Nisa Rojas MD Work Phone: [facility] 11-29-2024 13:10-0400 Body weight 146.97 kg Nisa Rojas MD Work Phone: [facility] 11-29-2024 13:10-0400 Diastolic blood pressure 78 mm[Hg] Nisa Rojas MD Work Phone: [facility] 11-29-2024 13:10-0400 Heart rate 73 /min Nisa Rojas MD Work Phone: [facility] 11-29-2024 13:10-0400 SaO2% (BldA) [Mass fraction] 96 % Nisa Rojas MD Work Phone: [facility] 11-29-2024 13:10-0400 Systolic blood pressure 142 mm[Hg] Nisa Rojas MD Work Phone: [facility] 11-28-2024 14:27-0400 Body height 175.26 cm Nisa Rojas MD Work Phone: [facility] 11-28-2024 14:27-0400 Body temperature 98.3 [degF] Nisa Rojas MD Work Phone: [facility] 11-28-2024 14:27-0400 Body weight 151.49 kg Nisa Rojas MD Work Phone: [facility] 11-28-2024 14:27-0400 Diastolic blood pressure 98 mm[Hg] Nisa Rojas MD Work Phone: [facility] 11-28-2024 14:27-0400 Heart rate 67 /min Nisa Rojas MD Work Phone: [facility] 11-28-2024 14:27-0400 Respiratory rate 20 /min Nisa Rojas MD Work Phone: [facility] 11-28-2024 14:27-0400 SaO2% (BldA) [Mass fraction] 97 % Nisa Rojas MD Work Phone: [facility] 11-28-2024 14:27-0400 Systolic blood pressure 200 mm[Hg] Nisa Rojas MD Work Phone: [facility] 11-27-2024 14:36-0400 Body height 175.26 cm Nisa Rojas MD Work Phone: [facility] 11-27-2024 14:36-0400 Body temperature 98.5 [degF] Nisa Rojas MD Work Phone: [facility] 11-27-2024 14:36-0400 Body weight 149.68 kg Nisa Rojas MD Work Phone: [facility] 11-27-2024 14:36-0400 Diastolic blood pressure 110 mm[Hg] Nisa Rojas MD Work Phone: [facility] 11-27-2024 14:36-0400 Heart rate 92 /min Nisa Rojas MD Work Phone: [facility] 11-27-2024 14:36-0400 Respiratory rate 18 /min Nisa Rojas MD Work Phone: [facility] 11-27-2024 14:36-0400 SaO2% (BldA) [Mass fraction] 99 % Nisa Rojas MD Work Phone: [facility] 11-27-2024 14:36-0400 Systolic blood pressure 160 mm[Hg] Nisa Rojas MD Work Phone: [facility] 11-27-2024 00:18-0400 Body temperature 97 [degF] Nisa Rojas MD Work Phone: [facility] 11-27-2024 00:18-0400 Diastolic blood pressure 81 mm[Hg] Nisa Rojas MD Work Phone: [facility] 11-27-2024 00:18-0400 Heart rate 71 /min Nisa Rojas MD Work Phone: [facility] 11-27-2024 00:18-0400 Respiratory rate 18 /min Nisa Rojas MD Work Phone: [facility] 11-27-2024 00:18-0400 SaO2% (BldA) [Mass fraction] 97 % Nisa Rojas MD Work Phone: [facility] 11-27-2024 00:18-0400 Systolic blood pressure 133 mm[Hg] Nisa Rojas MD Work Phone: [facility] 11-27-2024 00:15-0400 Body height 175.26 cm Nisa Rojas MD Work Phone: [facility] 11-27-2024 00:15-0400 Body weight 149.68 kg Nisa Rojas MD Work Phone: [facility] 11-24-2024 22:23-0400 Body height 175.26 cm Nisa Rojas MD Work Phone: [facility] 11-24-2024 22:23-0400 Body temperature 98.3 [degF] Nisa Rojas MD Work Phone: [facility] 11-24-2024 22:23-0400 Body weight 152.7 kg Nisa Rojas MD Work Phone: [facility] 11-24-2024 22:23-0400 Diastolic blood pressure 120 mm[Hg] Nisa Rojas MD Work Phone: [facility] 11-24-2024 22:23-0400 Heart rate 77 /min Nisa Rojas MD Work Phone: [facility] 11-24-2024 22:23-0400 Respiratory rate 20 /min Nisa Rojas MD Work Phone: [facility] 11-24-2024 22:23-0400 SaO2% (BldA) [Mass fraction] 98 % Nisa Rojas MD Work Phone: [facility] 11-24-2024 22:23-0400 Systolic blood pressure 190 mm[Hg] Nisa Rojas MD Work Phone: [facility] 11-24-2024 17:12-0400 Body height 175.26 cm Nisa Rojas MD Work Phone: [facility] 11-24-2024 17:12-0400 Body temperature 99 [degF] Nisa Rojas MD Work Phone: [facility] 11-24-2024 17:12-0400 Body weight 145.6 kg Nisa Rojas MD Work Phone: [facility] 11-24-2024 17:12-0400 Diastolic blood pressure 98 mm[Hg] Nisa Rojas MD Work Phone: [facility] 11-24-2024 17:12-0400 Heart rate 80 /min Nisa Rojas MD Work Phone: [facility] 11-24-2024 17:12-0400 Respiratory rate 20 /min Nisa Rojas MD Work Phone: [facility] 11-24-2024 17:12-0400 SaO2% (BldA) [Mass fraction] 98 % Nisa Rojas MD Work Phone: [facility] 11-24-2024 17:12-0400 Systolic blood pressure 176 mm[Hg] Nisa Rojas MD Work Phone: [facility] 11-21-2024 18:26-0400 Body height 175.26 cm Nisa Rojas MD Work Phone: [facility] 11-21-2024 18:26-0400 Body temperature 97.8 [degF] Nisa Rojas MD Work Phone: [facility] 11-21-2024 18:26-0400 Body weight 152 kg Nisa Rojas MD Work Phone: [facility] 11-21-2024 18:26-0400 Diastolic blood pressure 113 mm[Hg] Nisa Rojas MD Work Phone: [facility] 11-21-2024 18:26-0400 Heart rate 76 /min Nisa Rojas MD Work Phone: [facility] 11-21-2024 18:26-0400 Respiratory rate 22 /min Nisa Rojas MD Work Phone: [facility] 11-21-2024 18:26-0400 SaO2% (BldA) [Mass fraction] 97 % Nisa Rojas MD Work Phone: [facility] 11-21-2024 18:26-0400 Systolic blood pressure 178 mm[Hg] Nisa Rojas MD Work Phone: [facility] 11-21-2024 10:27-0400 Body height 175.26 cm Nisa Rojas MD Work Phone: [facility] 11-21-2024 10:27-0400 Body temperature 98.8 [degF] Nisa Rojas MD Work Phone: [facility] 11-21-2024 10:27-0400 Body weight 145.14 kg Nisa Rojas MD Work Phone: [facility] 11-21-2024 10:27-0400 Diastolic blood pressure 98 mm[Hg] Nisa Rojas MD Work Phone: [facility] 11-21-2024 10:27-0400 Heart rate 67 /min Nisa Rojas MD Work Phone: [facility] 11-21-2024 10:27-0400 Respiratory rate 20 /min Nisa Rojas MD Work Phone: [facility] 11-21-2024 10:27-0400 SaO2% (BldA) [Mass fraction] 98 % Nisa Rojas MD Work Phone: [facility] 11-21-2024 10:27-0400 Systolic blood pressure 202 mm[Hg] Nisa Rojas MD Work Phone: [facility] 11-20-2024 11:41-0400 Body height 175.26 cm Nisa Rojas MD Work Phone: [facility] 11-20-2024 11:41-0400 Body temperature 98.2 [degF] Nisa Rojas MD Work Phone: [facility] 11-20-2024 11:41-0400 Body weight 152.2 kg Nisa Rojas MD Work Phone: [facility] 11-20-2024 11:41-0400 Diastolic blood pressure 88 mm[Hg] Nisa Rojas MD Work Phone: [facility] 11-20-2024 11:41-0400 Heart rate 59 /min Nisa Rojas MD Work Phone: [facility] 11-20-2024 11:41-0400 Respiratory rate 20 /min Nisa Rojas MD Work Phone: [facility] 11-20-2024 11:41-0400 SaO2% (BldA) [Mass fraction] 99 % Nisa Rojas MD Work Phone: [facility] 11-20-2024 11:41-0400 Systolic blood pressure 190 mm[Hg] Nisa Rojas MD Work Phone: [facility] 11-17-2024 22:44-0400 Body height 175.26 cm Nisa Rojas MD Work Phone: [facility] 11-17-2024 22:44-0400 Body temperature 97.7 [degF] Nisa Rojas MD Work Phone: [facility] 11-17-2024 22:44-0400 Body weight 145.14 kg Nisa Rojas MD Work Phone: [facility] 11-17-2024 22:44-0400 Diastolic blood pressure 100 mm[Hg] Nisa Rojas MD Work Phone: [facility] 11-17-2024 22:44-0400 Heart rate 74 /min Nisa Rojas MD Work Phone: [facility] 11-17-2024 22:44-0400 Respiratory rate 18 /min Nisa Rojas MD Work Phone: [facility] 11-17-2024 22:44-0400 SaO2% (BldA) [Mass fraction] 98 % Nisa Rojas MD Work Phone: [facility] 11-17-2024 22:44-0400 Systolic blood pressure 180 mm[Hg] Nisa Rojas MD Work Phone: [facility] 11-14-2024 13:55-0400 Body height 175.26 cm Nisa Rojas MD Work Phone: [facility] 11-14-2024 13:55-0400 Body temperature 97.9 [degF] Nisa Rojas MD Work Phone: [facility] 11-14-2024 13:55-0400 Body weight 145.14 kg Nisa Rojas MD Work Phone: [facility] 11-14-2024 13:55-0400 Diastolic blood pressure 98 mm[Hg] Nisa Rojas MD Work Phone: [facility] 11-14-2024 13:55-0400 Heart rate 72 /min Nisa Rojas MD Work Phone: [facility] 11-14-2024 13:55-0400 Respiratory rate 20 /min Nisa Rojas MD Work Phone: [facility] 11-14-2024 13:55-0400 SaO2% (BldA) [Mass fraction] 98 % Nisa Rojas MD Work Phone: [facility] 11-14-2024 13:55-0400 Systolic blood pressure 174 mm[Hg] Nisa Rojas MD Work Phone: [facility] 11-13-2024 03:51-0400 Body height 175.26 cm Nisa Rojas MD Work Phone: [facility] 11-13-2024 03:51-0400 Body temperature 98.7 [degF] Nisa Rojas MD Work Phone: [facility] 11-13-2024 03:51-0400 Body weight 145.14 kg Nisa Rojas MD Work Phone: [facility] 11-13-2024 03:51-0400 Diastolic blood pressure 102 mm[Hg] Nisa Rojas MD Work Phone: [facility] 11-13-2024 03:51-0400 Heart rate 77 /min Nisa Rojas MD Work Phone: [facility] 11-13-2024 03:51-0400 Respiratory rate 16 /min Nisa Rojas MD Work Phone: [facility] 11-13-2024 03:51-0400 SaO2% (BldA) [Mass fraction] 99 % Nisa Rojas MD Work Phone: [facility] 11-13-2024 03:51-0400 Systolic blood pressure 179 mm[Hg] Nisa Rojas MD Work Phone: [facility] 11-09-2024 00:55-0400 Body height 175.26 cm Nisa Rojas MD Work Phone: [facility] 11-09-2024 00:55-0400 Body weight 145.14 kg Nisa Rojas MD Work Phone: [facility] 11-09-2024 00:53-0400 Body temperature 98.1 [degF] Nisa Rojas MD Work Phone: [facility] 11-09-2024 00:53-0400 Diastolic blood pressure 94 mm[Hg] Nisa Rojas MD Work Phone: [facility] 11-09-2024 00:53-0400 Heart rate 77 /min Nisa Rojas MD Work Phone: [facility] 11-09-2024 00:53-0400 Respiratory rate 20 /min Nisa Rojas MD Work Phone: [facility] 11-09-2024 00:53-0400 SaO2% (BldA) [Mass fraction] 97 % Nisa Rojas MD Work Phone: [facility] 11-09-2024 00:53-0400 Systolic blood pressure 199 mm[Hg] Nisa Rojas MD Work Phone: [facility] 11-05-2024 00:22-0400 Body height 175.26 cm Nisa Rojas MD Work Phone: [facility] 11-05-2024 00:22-0400 Body temperature 98.7 [degF] Nisa Rojas MD Work Phone: [facility] 11-05-2024 00:22-0400 Body weight 145.14 kg Nisa Rojas MD Work Phone: [facility] 11-05-2024 00:22-0400 Diastolic blood pressure 96 mm[Hg] Nisa Rojas MD Work Phone: [facility] 11-05-2024 00:22-0400 Heart rate 79 /min Nisa Rojas MD Work Phone: [facility] 11-05-2024 00:22-0400 Respiratory rate 22 /min Nisa Rojas MD Work Phone: [facility] 11-05-2024 00:22-0400 SaO2% (BldA) [Mass fraction] 97 % Nisa Rojas MD Work Phone: [facility] 11-05-2024 00:22-0400 Systolic blood pressure 168 mm[Hg] Nisa Rojas MD Work Phone: [facility] 11-04-2024 21:22-0400 Body height 175.26 cm Nisa Rojas MD Work Phone: [facility] 11-04-2024 21:22-0400 Body temperature 97.9 [degF] Nisa Rojas MD Work Phone: [facility] 11-04-2024 21:22-0400 Body weight 145.14 kg Nisa Rojas MD Work Phone: [facility] 11-04-2024 21:22-0400 Diastolic blood pressure 108 mm[Hg] Nisa Rojas MD Work Phone: [facility] 11-04-2024 21:22-0400 Heart rate 77 /min Nisa Rojas MD Work Phone: [facility] 11-04-2024 21:22-0400 Respiratory rate 18 /min Nisa Rojas MD Work Phone: [facility] 11-04-2024 21:22-0400 SaO2% (BldA) [Mass fraction] 98 % Nisa Rojas MD Work Phone: [facility] 11-04-2024 21:22-0400 Systolic blood pressure 187 mm[Hg] Nisa Rojas MD Work Phone: [facility] 11-03-2024 00:19-0400 Body temperature 97.8 [degF] Nisa Rojas MD Work Phone: [facility] 11-03-2024 00:19-0400 Diastolic blood pressure 91 mm[Hg] Nisa Rojas MD Work Phone: [facility] 11-03-2024 00:19-0400 Heart rate 62 /min Nisa Rojas MD Work Phone: [facility] 11-03-2024 00:19-0400 Respiratory rate 18 /min Nisa Rojas MD Work Phone: [facility] 11-03-2024 00:19-0400 SaO2% (BldA) [Mass fraction] 98 % Nisa Rojas MD Work Phone: [facility] 11-03-2024 00:19-0400 Systolic blood pressure 195 mm[Hg] Nisa Rojas MD Work Phone: [facility] 11-03-2024 00:16-0400 Body height 175.26 cm Nisa Rojas MD Work Phone: [facility] 11-03-2024 00:16-0400 Body weight 142 kg Nisa Rojas MD Work Phone: [facility] 10-18-2024 12:01-0400 Body mass index (BMI) [Ratio] 47.99 kg/m2 Julissa Ashley [employer] Work Phone: [facility] 10-18-2024 12:01-0400 Body temperature 92.41 [degF] Julissa Ashley [employer] Work Phone: [facility] 10-18-2024 12:01-0400 Body weight 147.42 kg Julissa Ashley [employer] Work Phone: [facility] 10-18-2024 12:01-0400 Diastolic blood pressure 62 mm[Hg] Julissa Ashley [employer] Work Phone: [facility] 10-18-2024 12:01-0400 Heart rate 64 /min Jluissa Ashley [employer] Work Phone: [facility] 10-18-2024 12:01-0400 Respiratory rate 20 /min Julissa Ashley [employer] Work Phone: [facility] 10-18-2024 12:01-0400 SaO2% (BldA) [Mass fraction] 96 % Julissa Ashley [employer] Work Phone: [facility] 10-18-2024 12:01-0400 Systolic blood pressure 166 mm[Hg] Julissa Ashley [employer] Work Phone: [facility] 10-10-2024 19:00-0400 Body height 175.26 cm Nisa Rojas MD Work Phone: [facility] 10-10-2024 19:00-0400 Body temperature 98.5 [degF] Nisa Rojas MD Work Phone: [facility] 10-10-2024 19:00-0400 Body weight 140.61 kg Nisa Rojas MD Work Phone: [facility] 10-10-2024 19:00-0400 Diastolic blood pressure 107 mm[Hg] Nisa Rojas MD Work Phone: [facility] 10-10-2024 19:00-0400 Heart rate 84 /min Nisa Rojas MD Work Phone: [facility] 10-10-2024 19:00-0400 Respiratory rate 20 /min Nisa Rojas MD Work Phone: [facility] 10-10-2024 19:00-0400 SaO2% (BldA) [Mass fraction] 97 % Nisa Roajs MD Work Phone: [facility] 10-10-2024 19:00-0400 Systolic blood pressure 198 mm[Hg] Nisa Rojas MD Work Phone: [facility] 09-22-2024 15:09-0500 Body mass index (BMI) [Ratio] 49.41 kg/m2 Christopher Bhavik DO Work Phone: [facility] 09-22-2024 15:09-0500 Body weight 151.77 kg Christopher Bhavik DO Work Phone: [facility] 09-22-2024 15:09-0500 Diastolic blood pressure 88 mm[Hg] Christopher Bhavik DO Work Phone: [facility] 09-22-2024 15:09-0500 Heart rate 68 /min Christopher Bhavik DO Work Phone: [facility] 09-22-2024 15:09-0500 SaO2% (BldA) [Mass fraction] 96 % Christopher Bhavik DO Work Phone: [facility] 09-22-2024 15:09-0500 Systolic blood pressure 152 mm[Hg] Christopher Bhavik DO Work Phone: [facility] 09-06-2024 18:47-0500 Body height 175.26 cm Nisa Rojas MD Work Phone: [facility] 09-06-2024 18:47-0500 Body temperature 97.9 [degF] Nisa Rojas MD Work Phone: [facility] 09-06-2024 18:47-0500 Body weight 140.61 kg Nisa Rojas MD Work Phone: [facility] 09-06-2024 18:47-0500 Diastolic blood pressure 79 mm[Hg] Nisa Rojas MD Work Phone: [facility] 09-06-2024 18:47-0500 Heart rate 77 /min Nisa Rojas MD Work Phone: [facility] 09-06-2024 18:47-0500 Respiratory rate 18 /min Nisa Rojas MD Work Phone: [facility] 09-06-2024 18:47-0500 SaO2% (BldA) [Mass fraction] 98 % Nisa Rojas MD Work Phone: [facility] 09-06-2024 18:47-0500 Systolic blood pressure 147 mm[Hg] Nisa Rojas MD Work Phone: [facility] 09-03-2024 21:08-0500 Body height 175.26 cm Nisa Rojas MD Work Phone: [facility] 09-03-2024 21:08-0500 Body temperature 98.1 [degF] Nisa Rojas MD Work Phone: [facility] 09-03-2024 21:08-0500 Body weight 140.61 kg Nisa Roajs MD Work Phone: [facility] 09-03-2024 21:08-0500 Diastolic blood pressure 93 mm[Hg] Nisa Rojas MD Work Phone: [facility] 09-03-2024 21:08-0500 Heart rate 68 /min Nisa Rojas MD Work Phone: [facility] 09-03-2024 21:08-0500 Respiratory rate 18 /min Nisa Rojas MD Work Phone: [facility] 09-03-2024 21:08-0500 SaO2% (BldA) [Mass fraction] 97 % Nisa Rojas MD Work Phone: [facility] 09-03-2024 21:08-0500 Systolic blood pressure 176 mm[Hg] Nisa Rojas MD Work Phone: [facility] 08-31-2024 14:50-0500 Body mass index (BMI) [Ratio] 45.78 kg/m2 Nisa Rojas MD Work Phone: [facility] 08-31-2024 14:50-0500 Body weight 140.62 kg Nisa Rojas MD Work Phone: [facility] 08-31-2024 14:50-0500 Diastolic blood pressure 78 mm[Hg] Nisa Rojas MD Work Phone: [facility] 08-31-2024 14:50-0500 Heart rate 67 /min Nisa Rojas MD Work Phone: [facility] 08-31-2024 14:50-0500 SaO2% (BldA) [Mass fraction] 98 % Nisa Rojas MD Work Phone: [facility] 08-31-2024 14:50-0500 Systolic blood pressure 120 mm[Hg] Nisa Rojas MD Work Phone: [facility] 08-29-2024 21:24-0500 Body temperature 97.9 [degF] Nisa Rojas MD Work Phone: [facility] 08-29-2024 21:24-0500 Diastolic blood pressure 93 mm[Hg] Nisa Rojas MD Work Phone: [facility] 08-29-2024 21:24-0500 Heart rate 64 /min Nisa Rojas MD Work Phone: [facility] 08-29-2024 21:24-0500 Respiratory rate 18 /min Nias Rojas MD Work Phone: [facility] 08-29-2024 21:24-0500 SaO2% (BldA) [Mass fraction] 96 % Nisa Rojas MD Work Phone: [facility] 08-29-2024 21:24-0500 Systolic blood pressure 197 mm[Hg] Nisa Rojas MD Work Phone: [facility] 08-29-2024 21:22-0500 Body height 175.26 cm Nisa Rojas MD Work Phone: [facility] 08-29-2024 21:22-0500 Body weight 140.61 kg Nisa Rojas MD Work Phone: [facility] 08-28-2024 21:03-0500 Body height 175.26 cm Nisa Rojas MD Work Phone: [facility] 08-28-2024 21:03-0500 Body temperature 97.9 [degF] Nisa Rojas MD Work Phone: [facility] 08-28-2024 21:03-0500 Body weight 140.61 kg Nisa Rojas MD Work Phone: [facility] 08-28-2024 21:03-0500 Diastolic blood pressure 96 mm[Hg] Nisa Rojas MD Work Phone: [facility] 08-28-2024 21:03-0500 Heart rate 79 /min Nisa Rojas MD Work Phone: [facility] 08-28-2024 21:03-0500 Respiratory rate 22 /min Nisa Rojas MD Work Phone: [facility] 08-28-2024 21:03-0500 SaO2% (BldA) [Mass fraction] 99 % Nisa Rojas MD Work Phone: [facility] 08-28-2024 21:03-0500 Systolic blood pressure 168 mm[Hg] Nisa Rojas MD Work Phone: [facility] 08-21-2024 21:08-0500 Body height 175.26 cm Nisa Rojas MD Work Phone: [facility] 08-21-2024 21:08-0500 Body temperature 98.3 [degF] Nisa Rojas MD Work Phone: [facility] 08-21-2024 21:08-0500 Body weight 140.61 kg Nisa Rojas MD Work Phone: [facility] 08-21-2024 21:08-0500 Diastolic blood pressure 96 mm[Hg] Nisa Rojas MD Work Phone: [facility] 08-21-2024 21:08-0500 Heart rate 77 /min Nisa Rojas MD Work Phone: [facility] 08-21-2024 21:08-0500 Respiratory rate 24 /min Nisa Rojas MD Work Phone: [facility] 08-21-2024 21:08-0500 SaO2% (BldA) [Mass fraction] 97 % Nisa Rojas MD Work Phone: [facility] 08-21-2024 21:08-0500 Systolic blood pressure 179 mm[Hg] Nisa Rojas MD Work Phone: [facility] 08-17-2024 03:47-0500 Diastolic blood pressure 72 mm[Hg] Nisa Rojas MD Work Phone: [facility] 08-17-2024 03:47-0500 Heart rate 79 /min Nisa Rojas MD Work Phone: [facility] 08-17-2024 03:47-0500 Respiratory rate 20 /min Nisa Rojas MD Work Phone: [facility] 08-17-2024 03:47-0500 SaO2% (BldA) [Mass fraction] 95 % Nisa Rojas MD Work Phone: [facility] 08-17-2024 03:47-0500 Systolic blood pressure 143 mm[Hg] Nisa Rojas MD Work Phone: [facility] 08-17-2024 02:02-0500 Body height 175.26 cm Nisa Rojas MD Work Phone: [facility] 08-17-2024 02:02-0500 Body temperature 98.4 [degF] Nisa Rojas MD Work Phone: [facility] 08-17-2024 02:02-0500 Body weight 153.6 kg Nisa Rojas MD Work Phone: [facility] 08-08-2024 03:22-0500 Diastolic blood pressure 103 mm[Hg] Nisa Rojas MD Work Phone: [facility] 08-08-2024 03:22-0500 Heart rate 67 /min Nisa Rojas MD Work Phone: [facility] 08-08-2024 03:22-0500 Respiratory rate 20 /min Nisa Rojas MD Work Phone: [facility] 08-08-2024 03:22-0500 SaO2% (BldA) [Mass fraction] 97 % Nisa Rojas MD Work Phone: [facility] 08-08-2024 03:22-0500 Systolic blood pressure 184 mm[Hg] Nisa Rojas MD Work Phone: [facility] 08-08-2024 02:24-0500 Body height 175.26 cm Nisa Rojas MD Work Phone: [facility] 08-08-2024 02:24-0500 Body temperature 97.5 [degF] Nisa Rojas MD Work Phone: [facility] 08-08-2024 02:24-0500 Body weight 151 kg Nisa Rojas MD Work Phone: [facility] 07-26-2024 23:52-0500 Body height 175.26 cm Nisa Rojsa MD Work Phone: [facility] 07-26-2024 23:52-0500 Body temperature 97.8 [degF] Nisa Rojas MD Work Phone: [facility] 07-26-2024 23:52-0500 Body weight 145.14 kg Nisa Rojas MD Work Phone: [facility] 07-26-2024 23:52-0500 Diastolic blood pressure 89 mm[Hg] Nisa Rojas MD Work Phone: [facility] 07-26-2024 23:52-0500 Heart rate 76 /min Nisa Rojas MD Work Phone: [facility] 07-26-2024 23:52-0500 Respiratory rate 18 /min Nisa Rojas MD Work Phone: [facility] 07-26-2024 23:52-0500 SaO2% (BldA) [Mass fraction] 98 % Nisa Rojas MD Work Phone: [facility] 07-26-2024 23:52-0500 Systolic blood pressure 132 mm[Hg] Nisa Rojas MD Work Phone: [facility] 07-24-2024 19:48-0500 Body height 175.26 cm Nisa Rojas MD Work Phone: [facility] 07-24-2024 19:48-0500 Body temperature 98.2 [degF] Nisa Rojas MD Work Phone: [facility] 07-24-2024 19:48-0500 Body weight 145.14 kg Nisa Rojas MD Work Phone: [facility] 07-24-2024 19:48-0500 Diastolic blood pressure 84 mm[Hg] Nisa Rojas MD Work Phone: [facility] 07-24-2024 19:48-0500 Heart rate 72 /min Nisa Rojas MD Work Phone: [facility] 07-24-2024 19:48-0500 Respiratory rate 20 /min Nisa Rojas MD Work Phone: [facility] 07-24-2024 19:48-0500 SaO2% (BldA) [Mass fraction] 98 % Nisa Rojas MD Work Phone: [facility] 07-24-2024 19:48-0500 Systolic blood pressure 176 mm[Hg] Nisa Rojas MD Work Phone: [facility] 07-23-2024 19:52-0500 Body height 175.26 cm Nisa Rojas MD Work Phone: [facility] 07-23-2024 19:52-0500 Body temperature 98 [degF] Nisa Rojas MD Work Phone: [facility] 07-23-2024 19:52-0500 Body weight 145.14 kg Nisa Rojas MD Work Phone: [facility] 07-23-2024 19:52-0500 Diastolic blood pressure 91 mm[Hg] Nisa Rojas MD Work Phone: [facility] 07-23-2024 19:52-0500 Heart rate 66 /min Nisa Rojas MD Work Phone: [facility] 07-23-2024 19:52-0500 Respiratory rate 16 /min Nisa Rojas MD Work Phone: [facility] 07-23-2024 19:52-0500 SaO2% (BldA) [Mass fraction] 96 % Nisa Rojas MD Work Phone: [facility] 07-23-2024 19:52-0500 Systolic blood pressure 184 mm[Hg] Nisa Rojas MD Work Phone: [facility] 07-22-2024 13:49-0500 Body height 175.26 cm Nisa Rojas MD Work Phone: [facility] 07-22-2024 13:49-0500 Body weight 142.88 kg Nisa Rojas MD Work Phone: [facility] 07-20-2024 09:42-0500 Body height 175.3 cm Nisa Rojas MD Work Phone: [facility] 07-20-2024 09:42-0500 Body mass index (BMI) [Ratio] 48.41 kg/m2 Nisa Rojas MD Work Phone: [facility] 07-20-2024 09:42-0500 Body weight 148.69 kg Nisa Rojas MD Work Phone: [facility] 07-20-2024 09:42-0500 Diastolic blood pressure 80 mm[Hg] Nisa Rojas MD Work Phone: [facility] 07-20-2024 09:42-0500 Heart rate 67 /min Nisa Rojas MD Work Phone: [facility] 07-20-2024 09:42-0500 SaO2% (BldA) [Mass fraction] 97 % Nisa Rojas MD Work Phone: [facility] 07-20-2024 09:42-0500 Systolic blood pressure 132 mm[Hg] Nisa Rojas MD Work Phone: [facility] 07-19-2024 22:01-0500 Body height 175.26 cm Nisa Rojas MD Work Phone: [facility] 07-19-2024 22:01-0500 Body temperature 98.2 [degF] Nisa Rojas MD Work Phone: [facility] 07-19-2024 22:01-0500 Body weight 145 kg Nisa Rojas MD Work Phone: [facility] 07-19-2024 22:01-0500 Diastolic blood pressure 125 mm[Hg] Nisa Rojas MD Work Phone: [facility] 07-19-2024 22:01-0500 Heart rate 85 /min Nisa Rojas MD Work Phone: [facility] 07-19-2024 22:01-0500 Respiratory rate 18 /min Nisa Rojas MD Work Phone: [facility] 07-19-2024 22:01-0500 SaO2% (BldA) [Mass fraction] 97 % Nisa Rojas MD Work Phone: [facility] 07-19-2024 22:01-0500 Systolic blood pressure 212 mm[Hg] Nisa Rojas MD Work Phone: [facility] 07-19-2024 10:40-0500 Body height 175.26 cm Nisa Rojas MD Work Phone: [facility] 07-19-2024 10:40-0500 Body mass index (BMI) [Ratio] 45.8 kg/m2 Nisa Rojas MD Work Phone: [facility] 07-19-2024 10:40-0500 Body weight 140.61 kg Nisa Rojas MD Work Phone: [facility] 07-18-2024 16:13-0500 Body temperature 98.3 [degF] Nisa Rojas MD Work Phone: [facility] 07-18-2024 16:13-0500 Diastolic blood pressure 94 mm[Hg] Nisa Rojas MD Work Phone: [facility] 07-18-2024 16:13-0500 Heart rate 64 /min Nisa Rojas MD Work Phone: [facility] 07-18-2024 16:13-0500 Respiratory rate 20 /min Nisa Rojas MD Work Phone: [facility] 07-18-2024 16:13-0500 SaO2% (BldA) [Mass fraction] 99 % Nisa Rojas MD Work Phone: [facility] 07-18-2024 16:13-0500 Systolic blood pressure 187 mm[Hg] Nisa Rojas MD Work Phone: [facility] 07-18-2024 16:11-0500 Body height 175.26 cm Nisa Rojas MD Work Phone: [facility] 07-18-2024 16:11-0500 Body weight 140.61 kg Nisa Rojas MD Work Phone: [facility] 07-17-2024 23:21-0500 Diastolic blood pressure 90 mm[Hg] Nisa Rojas MD Work Phone: [facility] 07-17-2024 23:21-0500 Heart rate 80 /min Nisa Rojas MD Work Phone: [facility] 07-17-2024 23:21-0500 Respiratory rate 22 /min Nisa Rojas MD Work Phone: [facility] 07-17-2024 23:21-0500 SaO2% (BldA) [Mass fraction] 96 % Nisa Rojas MD Work Phone: [facility] 07-17-2024 23:21-0500 Systolic blood pressure 170 mm[Hg] Nisa Rojas MD Work Phone: [facility] 07-17-2024 21:28-0500 Body height 175.26 cm Nisa Rojas MD Work Phone: [facility] 07-17-2024 21:28-0500 Body temperature 98 [degF] Nisa Rojas MD Work Phone: [facility] 07-17-2024 21:28-0500 Body weight 151.6 kg Nisa Rojas MD Work Phone: [facility] 07-17-2024 14:46-0500 Body height 175.26 cm Nisa Rojas MD Work Phone: [facility] 07-17-2024 14:46-0500 Body weight 140.61 kg Nisa Rojas MD Work Phone: [facility] 07-17-2024 14:46-0500 Diastolic blood pressure 118 mm[Hg] Nisa Rojas MD Work Phone: [facility] 07-17-2024 14:46-0500 Systolic blood pressure 222 mm[Hg] Nisa Rojas MD Work Phone: [facility] 07-17-2024 14:44-0500 Body temperature 98.3 [degF] Nisa Rojas MD Work Phone: [facility] 07-17-2024 14:44-0500 Heart rate 89 /min Nisa Rojas MD Work Phone: [facility] 07-17-2024 14:44-0500 Respiratory rate 16 /min Nisa Rojas MD Work Phone: [facility] 07-17-2024 14:44-0500 SaO2% (BldA) [Mass fraction] 96 % Nisa Rojas MD Work Phone: [facility] 07-15-2024 20:59-0500 Body height 175.26 cm Nisa Rojas MD Work Phone: [facility] 07-15-2024 20:59-0500 Body temperature 97.9 [degF] Nisa Rojas MD Work Phone: [facility] 07-15-2024 20:59-0500 Body weight 150.4 kg Nisa Rojas MD Work Phone: [facility] 07-15-2024 20:59-0500 Diastolic blood pressure 100 mm[Hg] Nisa Rojas MD Work Phone: [facility] 07-15-2024 20:59-0500 Heart rate 68 /min Nisa Rojas MD Work Phone: [facility] 07-15-2024 20:59-0500 Respiratory rate 22 /min Nisa Rojas MD Work Phone: [facility] 07-15-2024 20:59-0500 SaO2% (BldA) [Mass fraction] 98 % Nisa Rojas MD Work Phone: [facility] 07-15-2024 20:59-0500 Systolic blood pressure 177 mm[Hg] Nisa Rojas MD Work Phone: [facility] 07-15-2024 14:58-0500 Body height 175.26 cm Nisa Rojas MD Work Phone: [facility] 07-15-2024 14:58-0500 Body temperature 98 [degF] Nisa Rojas MD Work Phone: [facility] 07-15-2024 14:58-0500 Body weight 140.61 kg Nisa Rojas MD Work Phone: [facility] 07-15-2024 14:58-0500 Diastolic blood pressure 90 mm[Hg] Nisa Rojas MD Work Phone: [facility] 07-15-2024 14:58-0500 Heart rate 67 /min Nisa Rojas MD Work Phone: [facility] 07-15-2024 14:58-0500 Respiratory rate 18 /min Nisa Rojas MD Work Phone: [facility] 07-15-2024 14:58-0500 SaO2% (BldA) [Mass fraction] 96 % Nisa Rojas MD Work Phone: [facility] 07-15-2024 14:58-0500 Systolic blood pressure 168 mm[Hg] Nisa Rojas MD Work Phone: [facility] 07-14-2024 19:42-0500 Body height 175.26 cm Nisa Rojas MD Work Phone: [facility] 07-14-2024 19:42-0500 Body temperature 98 [degF] Nisa Rojas MD Work Phone: [facility] 07-14-2024 19:42-0500 Body weight 140.61 kg Nisa Rojas MD Work Phone: [facility] 07-14-2024 19:42-0500 Diastolic blood pressure 88 mm[Hg] Nisa Rojas MD Work Phone: [facility] 07-14-2024 19:42-0500 Heart rate 67 /min Nisa Rojas MD Work Phone: [facility] 07-14-2024 19:42-0500 Respiratory rate 16 /min Nisa Rojas MD Work Phone: [facility] 07-14-2024 19:42-0500 SaO2% (BldA) [Mass fraction] 99 % Nisa Rojas MD Work Phone: [facility] 07-14-2024 19:42-0500 Systolic blood pressure 179 mm[Hg] Nisa Rojas MD Work Phone: [facility] 07-13-2024 19:24-0500 Diastolic blood pressure 105 mm[Hg] Nisa Rojas MD Work Phone: [facility] 07-13-2024 19:24-0500 Heart rate 71 /min Nisa Rojas MD Work Phone: [facility] 07-13-2024 19:24-0500 Respiratory rate 18 /min Nisa Rojas MD Work Phone: [facility] 07-13-2024 19:24-0500 SaO2% (BldA) [Mass fraction] 98 % Nisa Rojas MD Work Phone: [facility] 07-13-2024 19:24-0500 Systolic blood pressure 183 mm[Hg] Nisa Rojas MD Work Phone: [facility] 07-13-2024 18:30-0500 Body temperature 98 [degF] Nisa Rojas MD Work Phone: [facility] 07-13-2024 18:28-0500 Body height 175.26 cm Nisa Rojas MD Work Phone: [facility] 07-13-2024 18:28-0500 Body weight 140.61 kg Nisa Rojas MD Work Phone: [facility] 07-12-2024 16:24-0500 Body height 175.26 cm Nisa Rojas MD Work Phone: [facility] 07-12-2024 16:24-0500 Body temperature 98.2 [degF] Nisa Rojas MD Work Phone: [facility] 07-12-2024 16:24-0500 Body weight 140.61 kg Nisa Rojas MD Work Phone: [facility] 07-12-2024 16:24-0500 Diastolic blood pressure 109 mm[Hg] Nisa Rojas MD Work Phone: [facility] 07-12-2024 16:24-0500 Heart rate 80 /min Nisa Rojas MD Work Phone: [facility] 07-12-2024 16:24-0500 Respiratory rate 20 /min Nisa Rojas MD Work Phone: [facility] 07-12-2024 16:24-0500 SaO2% (BldA) [Mass fraction] 96 % Nisa Rojas MD Work Phone: [facility] 07-12-2024 16:24-0500 Systolic blood pressure 190 mm[Hg] Nisa Rojsa MD Work Phone: [facility] 07-12-2024 12:08-0500 Diastolic blood pressure 94 mm[Hg] Nisa Rojas MD Work Phone: [facility] 07-12-2024 12:08-0500 Systolic blood pressure 158 mm[Hg] Nisa Rojas MD Work Phone: [facility] 07-12-2024 11:06-0500 Body height 175.26 cm Nisa Rojas MD Work Phone: [facility] 07-12-2024 11:06-0500 Body temperature 98.1 [degF] Nisa Rojas MD Work Phone: [facility] 07-12-2024 11:06-0500 Body weight 140.61 kg Nisa Rojas MD Work Phone: [facility] 07-12-2024 11:06-0500 Heart rate 68 /min Nisa Rojas MD Work Phone: [facility] 07-12-2024 11:06-0500 Respiratory rate 16 /min Nisa Rojas MD Work Phone: [facility] 07-12-2024 11:06-0500 SaO2% (BldA) [Mass fraction] 97 % Nisa Rojas MD Work Phone: [facility] 07-10-2024 10:16-0500 Body height 175.26 cm Nisa Rojas MD Work Phone: [facility] 07-10-2024 10:16-0500 Body temperature 98 [degF] Nisa Rojas MD Work Phone: [facility] 07-10-2024 10:16-0500 Body weight 140.61 kg Nisa Rojas MD Work Phone: [facility] 07-10-2024 10:16-0500 Diastolic blood pressure 87 mm[Hg] Nisa Rojas MD Work Phone: [facility] 07-10-2024 10:16-0500 Heart rate 73 /min Nisa Rojas MD Work Phone: [facility] 07-10-2024 10:16-0500 Respiratory rate 18 /min Nisa Rojas MD Work Phone: [facility] 07-10-2024 10:16-0500 SaO2% (BldA) [Mass fraction] 97 % Nisa Rojas MD Work Phone: [facility] 07-10-2024 10:16-0500 Systolic blood pressure 171 mm[Hg] Nisa Rojas MD Work Phone: [facility] 07-09-2024 17:08-0500 Diastolic blood pressure 105 mm[Hg] Nisa Rojas MD Work Phone: [facility] 07-09-2024 17:08-0500 Heart rate 77 /min Nisa Rojas MD Work Phone: [facility] 07-09-2024 17:08-0500 Respiratory rate 18 /min Nisa Rojas MD Work Phone: [facility] 07-09-2024 17:08-0500 SaO2% (BldA) [Mass fraction] 97 % Nisa Rojas MD Work Phone: [facility] 07-09-2024 17:08-0500 Systolic blood pressure 192 mm[Hg] Nisa Rojas MD Work Phone: [facility] 07-09-2024 14:21-0500 Body height 175.26 cm Nisa Rojas MD Work Phone: [facility] 07-09-2024 14:21-0500 Body temperature 98 [degF] Nisa Rojas MD Work Phone: [facility] 07-09-2024 14:21-0500 Body weight 140.61 kg Nisa Rojas MD Work Phone: [facility] 07-06-2024 12:48-0500 Diastolic blood pressure 97 mm[Hg] Nisa Rojas MD Work Phone: [facility] 07-06-2024 12:48-0500 Heart rate 77 /min Nisa Rojas MD Work Phone: [facility] 07-06-2024 12:48-0500 Respiratory rate 20 /min Nisa Rojas MD Work Phone: [facility] 07-06-2024 12:48-0500 SaO2% (BldA) [Mass fraction] 95 % Nisa Rojas MD Work Phone: [facility] 07-06-2024 12:48-0500 Systolic blood pressure 171 mm[Hg] Nisa Rojas MD Work Phone: [facility] 07-06-2024 11:47-0500 Body height 175.26 cm Nisa Rojas MD Work Phone: [facility] 07-06-2024 11:47-0500 Body temperature 97.6 [degF] Nisa Rojas MD Work Phone: [facility] 07-06-2024 11:47-0500 Body weight 142.6 kg Nisa Rojas MD Work Phone: [facility] 06-29-2024 14:09-0500 Body height 175.3 cm Nisa Rojas MD Work Phone: [facility] 06-29-2024 14:09-0500 Body mass index (BMI) [Ratio] 46.93 kg/m2 Nisa Rojas MD Work Phone: [facility] 06-29-2024 14:09-0500 Body weight 144.15 kg Nisa Rojas MD Work Phone: [facility] 06-29-2024 14:09-0500 Diastolic blood pressure 80 mm[Hg] Nisa Rojas MD Work Phone: [facility] 06-29-2024 14:09-0500 Heart rate 61 /min Nisa Rojas MD Work Phone: [facility] 06-29-2024 14:09-0500 SaO2% (BldA) [Mass fraction] 99 % Nisa Rojas MD Work Phone: [facility] 06-29-2024 14:09-0500 Systolic blood pressure 140 mm[Hg] Nisa Rojas MD Work Phone: [facility] 06-18-2024 16:20-0500 Body height 175.26 cm Nisa Rojas MD Work Phone: [facility] 06-18-2024 16:20-0500 Body temperature 97.4 [degF] Nisa Rojas MD Work Phone: [facility] 06-18-2024 16:20-0500 Body weight 136.07 kg Nisa Rojas MD Work Phone: [facility] 06-18-2024 16:20-0500 Diastolic blood pressure 113 mm[Hg] Nisa Rojas MD Work Phone: [facility] 06-18-2024 16:20-0500 Heart rate 81 /min Nisa Rojas MD Work Phone: [facility] 06-18-2024 16:20-0500 Respiratory rate 20 /min Nisa Rojas MD Work Phone: [facility] 06-18-2024 16:20-0500 SaO2% (BldA) [Mass fraction] 96 % Nisa Rojas MD Work Phone: [facility] 06-18-2024 16:20-0500 Systolic blood pressure 217 mm[Hg] Nisa Rojas MD Work Phone: [facility] 06-18-2024 11:12-0500 Body height 175.26 cm Nisa Rojas MD Work Phone: [facility] 06-18-2024 11:12-0500 Body temperature 97.4 [degF] Nisa Rojas MD Work Phone: [facility] 06-18-2024 11:12-0500 Body weight 136.07 kg Nisa Rojas MD Work Phone: [facility] 06-18-2024 11:12-0500 Diastolic blood pressure 95 mm[Hg] Nisa Rojas MD Work Phone: [facility] 06-18-2024 11:12-0500 Heart rate 68 /min Nisa Rojas MD Work Phone: [facility] 06-18-2024 11:12-0500 Respiratory rate 20 /min Nisa Rojas MD Work Phone: [facility] 06-18-2024 11:12-0500 SaO2% (BldA) [Mass fraction] 98 % Nisa Rojas MD Work Phone: [facility] 06-18-2024 11:12-0500 Systolic blood pressure 187 mm[Hg] Nisa Rojas MD Work Phone: [facility] 06-17-2024 22:32-0500 Body height 175.26 cm Nisa Rojas MD Work Phone: [facility] 06-17-2024 22:32-0500 Body temperature 97.9 [degF] Nisa Rojas MD Work Phone: [facility] 06-17-2024 22:32-0500 Body weight 136.98 kg Nisa Rojas MD Work Phone: [facility] 06-17-2024 22:32-0500 Diastolic blood pressure 99 mm[Hg] Nisa Rojas MD Work Phone: [facility] 06-17-2024 22:32-0500 Heart rate 88 /min Nisa Rojas MD Work Phone: [facility] 06-17-2024 22:32-0500 Respiratory rate 20 /min Nisa Rojas MD Work Phone: [facility] 06-17-2024 22:32-0500 SaO2% (BldA) [Mass fraction] 98 % Nisa Rojas MD Work Phone: [facility] 06-17-2024 22:32-0500 Systolic blood pressure 189 mm[Hg] Nisa Rojas MD Work Phone: [facility] 06-13-2024 12:21-0500 Diastolic blood pressure 99 mm[Hg] Nisa Rojas MD Work Phone: [facility] 06-13-2024 12:21-0500 Heart rate 63 /min Nisa Rojas MD Work Phone: [facility] 06-13-2024 12:21-0500 Respiratory rate 22 /min Nisa Rojas MD Work Phone: [facility] 06-13-2024 12:21-0500 SaO2% (BldA) [Mass fraction] 96 % Nisa Rojas MD Work Phone: [facility] 06-13-2024 12:21-0500 Systolic blood pressure 192 mm[Hg] Nisa Rojas MD Work Phone: [facility] 06-13-2024 11:13-0500 Body height 175.26 cm Nisa Rojas MD Work Phone: [facility] 06-13-2024 11:13-0500 Body temperature 97.8 [degF] Nisa Rojas MD Work Phone: [facility] 06-13-2024 11:13-0500 Body weight 136.07 kg Nisa Rojas MD Work Phone: [facility] 06-10-2024 08:49-0500 Diastolic blood pressure 92 mm[Hg] Nisa Rojas MD Work Phone: [facility] 06-10-2024 08:49-0500 Heart rate 60 /min Nisa Rojas MD Work Phone: [facility] 06-10-2024 08:49-0500 Systolic blood pressure 174 mm[Hg] Nisa Rojas MD Work Phone: [facility] 06-03-2024 13:43-0400 Body height 175.3 cm Yodit Jolly C[employer] OFF [employer]PERATOR [employer]ER Work Phone: [facility] 06-03-2024 13:43-0400 Body mass index (BMI) [Ratio] 46.22 kg/m2 Yodit Jolly C[employer] OFF OPERATOR [employer]ER Work Phone: [facility] 06-03-2024 13:43-0400 Body weight 141.98 kg Yodit Jolly C[employer] OFF OPERATOR [employer]ER Work Phone: [facility] 06-03-2024 13:43-0400 Diastolic blood pressure 88 mm[Hg] Yodit Jolly C[employer] OFF OPERATOR [employer]ER Work Phone: [facility] 06-03-2024 13:43-0400 Heart rate 96 /min Yodit Jolly C[employer] OFF OPERATOR [employer]ER Work Phone: [facility] 06-03-2024 13:43-0400 SaO2% (BldA) [Mass fraction] 98 % Yodit Jolly C[employer] OFF OPERATOR SCORER Work Phone: [facility] 06-03-2024 13:43-0400 Systolic blood pressure 142 mm[Hg] Yodit Jolly C[employer] OFF OPERATOR SC[employer]ER Work Phone: [facility] 05-29-2024 03:20-0400 Body temperature 98.1 [degF] MD Nisa Rojas Work Phone: [facility] 05-29-2024 03:18-0400 Body height 175.26 cm MD Nisa Rojas Work Phone: [facility] 05-29-2024 03:18-0400 Body weight 138.34 kg MD Nisa Rojas Work Phone: [facility] 05-29-2024 03:18-0400 Diastolic blood pressure 82 mm[Hg] MD Nisa Rojas Work Phone: [facility] 05-29-2024 03:18-0400 Heart rate 60 /min MD Nisa Rojas Work Phone: [facility] 05-29-2024 03:18-0400 Respiratory rate 18 /min MD Nisa Rojas Work Phone: [facility] 05-29-2024 03:18-0400 SaO2% (BldA) [Mass fraction] 100 % MD Nisa Rojas Work Phone: [facility] 05-29-2024 03:18-0400 Systolic blood pressure 134 mm[Hg] MD Nisa Rojas Work Phone: [facility] 05-28-2024 11:18-0400 Body height 175.26 cm MD Nisa Rojas Work Phone: [facility] 05-28-2024 11:18-0400 Body temperature 98.6 [degF] MD Nisa Rojas Work Phone: [facility] 05-28-2024 11:18-0400 Body weight 136.98 kg MD Nisa Rojas Work Phone: [facility] 05-28-2024 11:18-0400 Diastolic blood pressure 92 mm[Hg] MD Nisa Rojas Work Phone: [facility] 05-28-2024 11:18-0400 Heart rate 60 /min MD Nisa Rojas Work Phone: [facility] 05-28-2024 11:18-0400 Respiratory rate 20 /min MD Nisa Rojas Work Phone: [facility] 05-28-2024 11:18-0400 SaO2% (BldA) [Mass fraction] 97 % MD Nisa Rojas Work Phone: [facility] 05-28-2024 11:18-0400 Systolic blood pressure 160 mm[Hg] MD Nisa Rojas Work Phone: [facility] 05-25-2024 13:01-0400 Body height 175.3 cm Nisa Rojas MD Work Phone: [facility] 05-25-2024 13:01-0400 Body mass index (BMI) [Ratio] 45.04 kg/m2 Nisa Rojas MD Work Phone: [facility] 05-25-2024 13:01-0400 Body weight 138.35 kg Nisa Rojas MD Work Phone: [facility] 05-25-2024 13:01-0400 Diastolic blood pressure 82 mm[Hg] Nisa Rojas MD Work Phone: [facility] 05-25-2024 13:01-0400 Heart rate 53 /min Nisa Rojas MD Work Phone: [facility] 05-25-2024 13:01-0400 SaO2% (BldA) [Mass fraction] 98 % Nisa Rojas MD Work Phone: [facility] 05-25-2024 13:01-0400 Systolic blood pressure 148 mm[Hg] Nisa Rojas MD Work Phone: [facility] 05-15-2024 17:31-0400 Body temperature 97.8 [degF] MD Nisa Rojas Work Phone: [facility] 05-15-2024 17:31-0400 Diastolic blood pressure 99 mm[Hg] MD Nisa Rojas Work Phone: [facility] 05-15-2024 17:31-0400 Heart rate 67 /min MD Nisa Rojas Work Phone: [facility] 05-15-2024 17:31-0400 Respiratory rate 18 /min MD Nisa Rojas Work Phone: [facility] 05-15-2024 17:31-0400 SaO2% (BldA) [Mass fraction] 98 % MD Nisa Rojas Work Phone: [facility] 05-15-2024 17:31-0400 Systolic blood pressure 157 mm[Hg] MD Nisa Rojas Work Phone: [facility] 05-15-2024 15:10-0400 Body height 175.26 cm MD Nisa Rojas Work Phone: [facility] 05-15-2024 15:10-0400 Body weight 131.54 kg MD Nisa Rojas Work Phone: [facility] 05-05-2024 04:10-0400 Diastolic blood pressure 112 mm[Hg] MD Nisa Rojas Work Phone: [facility] 05-05-2024 04:10-0400 Systolic blood pressure 196 mm[Hg] MD Nisa Rojas Work Phone: [facility] 05-05-2024 04:07-0400 Body height 175.26 cm MD Nisa Rojas Work Phone: [facility] 05-05-2024 04:07-0400 Body temperature 97.8 [degF] MD Nisa Rojas Work Phone: [facility] 05-05-2024 04:07-0400 Body weight 133.4 kg MD Nisa Rojas Work Phone: [facility] 05-05-2024 04:07-0400 Heart rate 92 /min MD Nisa Rojas Work Phone: [facility] 05-05-2024 04:07-0400 Respiratory rate 22 /min MD Nisa Rojas Work Phone: [facility] 05-05-2024 04:07-0400 SaO2% (BldA) [Mass fraction] 98 % MD Nisa Rojas Work Phone: [facility] 05-04-2024 13:46-0400 Body height 175.26 cm MD Nisa Rojas Work Phone: [facility] 05-04-2024 13:46-0400 Body temperature 98.3 [degF] MD Nisa Rojas Work Phone: [facility] 05-04-2024 13:46-0400 Body weight 129.27 kg MD Nisa Rojas Work Phone: [facility] 05-04-2024 13:46-0400 Diastolic blood pressure 98 mm[Hg] MD Nisa Rojas Work Phone: [facility] 05-04-2024 13:46-0400 Heart rate 82 /min MD Nisa Rojas Work Phone: [facility] 05-04-2024 13:46-0400 Respiratory rate 18 /min MD Nisa Rojas Work Phone: [facility] 05-04-2024 13:46-0400 SaO2% (BldA) [Mass fraction] 98 % MD Nisa Rojas Work Phone: [facility] 05-04-2024 13:46-0400 Systolic blood pressure 171 mm[Hg] MD Nisa Rojas Work Phone: [facility] 05-04-2024 12:56-0400 Body height 175.3 cm Yodit Jolly C[employer] OFF OPERATOR SCORER Work Phone: [facility] 05-04-2024 12:56-0400 Body mass index (BMI) [Ratio] 43.27 kg/m2 Yodit Jolly CUT OFF OPERATOR SCORER Work Phone: [facility] 05-04-2024 12:56-0400 Body weight 132.9 kg Yodit Jolly C[employer] OFF OPERATOR [employer]ER Work Phone: [facility] 05-04-2024 12:56-0400 Diastolic blood pressure 94 mm[Hg] Yodit Jolly C[employer] OFF OPERATOR [employer]ER Work Phone: [facility] 05-04-2024 12:56-0400 Heart rate 96 /min Yodit Jolly C[employer] OFF OPERATOR [employer]ER Work Phone: [facility] 05-04-2024 12:56-0400 SaO2% (BldA) [Mass fraction] 98 % Yodit Jolly CUT OFF OPERATOR SCORER Work Phone: [facility] 05-04-2024 12:56-0400 Systolic blood pressure 166 mm[Hg] Yodit Jolly CUT OFF OPERATOR SCORER Work Phone: [facility] 04-29-2024 06:05-0400 Body height 175.26 cm MD Nisa Rojas Work Phone: [facility] 04-29-2024 06:05-0400 Body temperature 98.2 [degF] MD Nisa Rojas Work Phone: [facility] 04-29-2024 06:05-0400 Body weight 133.9 kg MD Nisa Rojas Work Phone: [facility] 04-29-2024 06:05-0400 Diastolic blood pressure 95 mm[Hg] MD Nisa Rojas Work Phone: [facility] 04-29-2024 06:05-0400 Heart rate 83 /min MD Nisa Rojas Work Phone: [facility] 04-29-2024 06:05-0400 Respiratory rate 26 /min MD Nisa Rojas Work Phone: [facility] 04-29-2024 06:05-0400 SaO2% (BldA) [Mass fraction] 97 % MD Nisa Rojas Work Phone: [facility] 04-29-2024 06:05-0400 Systolic blood pressure 173 mm[Hg] MD Nisa Rojas Work Phone: [facility] 04-27-2024 14:20-0400 Body height 175.3 cm Summer Workman PA Work Phone: [facility] 04-27-2024 14:20-0400 Body mass index (BMI) [Ratio] 43.86 kg/m2 Summer Workman PA Work Phone: [facility] 04-27-2024 14:20-0400 Body temperature 97.11 [degF] Summer Workman PA Work Phone: [facility] 04-27-2024 14:20-0400 Body weight 134.72 kg Summer Workman PA Work Phone: [facility] 04-27-2024 14:20-0400 Diastolic blood pressure 94 mm[Hg] Summer Workman PA Work Phone: [facility] 04-27-2024 14:20-0400 Heart rate 88 /min Summer Workman PA Work Phone: [facility] 04-27-2024 14:20-0400 SaO2% (BldA) [Mass fraction] 97 % Summer Workman PA Work Phone: [facility] 04-27-2024 14:20-0400 Systolic blood pressure 152 mm[Hg] Summer Workman PA Work Phone: [facility] 04-19-2024 13:26-0400 Body height 175.26 cm MD Nisa Rojas Work Phone: [facility] 04-19-2024 13:26-0400 Body weight 131.54 kg MD Nisa Rojas Work Phone: [facility] 04-19-2024 13:17-0400 Body temperature 98.8 [degF] MD Nisa Rojas Work Phone: [facility] 04-19-2024 13:17-0400 Diastolic blood pressure 120 mm[Hg] MD Nisa Rojas Work Phone: [facility] 04-19-2024 13:17-0400 Heart rate 81 /min MD Nisa Rojas Work Phone: [facility] 04-19-2024 13:17-0400 Respiratory rate 20 /min MD Nisa Rojas Work Phone: [facility] 04-19-2024 13:17-0400 SaO2% (BldA) [Mass fraction] 99 % MD Nisa Rojas Work Phone: [facility] 04-19-2024 13:17-0400 Systolic blood pressure 204 mm[Hg] MD Nisa Rojas Work Phone: [facility] 04-17-2024 15:18-0400 Diastolic blood pressure 104 mm[Hg] MD Nisa Rojas Work Phone: [facility] 04-17-2024 15:18-0400 Heart rate 64 /min MD Nisa Rojas Work Phone: [facility] 04-17-2024 15:18-0400 Respiratory rate 18 /min MD Nisa Rojas Work Phone: [facility] 04-17-2024 15:18-0400 SaO2% (BldA) [Mass fraction] 99 % MD Nisa Rojas Work Phone: [facility] 04-17-2024 15:18-0400 Systolic blood pressure 192 mm[Hg] MD iNsa Rojas Work Phone: [facility] 04-17-2024 14:07-0400 Body height 175.26 cm MD Nisa Rojas Work Phone: [facility] 04-17-2024 14:07-0400 Body temperature 98 [degF] MD Nisa Rojas Work Phone: [facility] 04-17-2024 14:07-0400 Body weight 133.8 kg MD Nisa Rojas Work Phone: [facility] 04-16-2024 19:26-0400 Diastolic blood pressure 77 mm[Hg] MD Nisa Rojas Work Phone: [facility] 04-16-2024 19:26-0400 Heart rate 86 /min MD Nisa Rojas Work Phone: [facility] 04-16-2024 19:26-0400 Respiratory rate 20 /min MD Nisa Rojas Work Phone: [facility] 04-16-2024 19:26-0400 SaO2% (BldA) [Mass fraction] 98 % MD Nisa Rojas Work Phone: [facility] 04-16-2024 19:26-0400 Systolic blood pressure 165 mm[Hg] MD Nisa Rojas Work Phone: [facility] 04-16-2024 17:27-0400 Body height 175.26 cm MD Nisa Rojas Work Phone: [facility] 04-16-2024 17:27-0400 Body weight 140.7 kg MD Nisa Rojas Work Phone: [facility] 04-16-2024 17:23-0400 Body temperature 97.8 [degF] MD Nisa Rojas Work Phone: [facility] 04-06-2024 13:05-0400 Body temperature 98.4 [degF] MD Nisa Rojas Work Phone: [facility] 04-06-2024 13:05-0400 Diastolic blood pressure 81 mm[Hg] MD Nisa Rojas Work Phone: [facility] 04-06-2024 13:05-0400 Heart rate 61 /min MD Nisa Rojas Work Phone: [facility] 04-06-2024 13:05-0400 Respiratory rate 18 /min MD Nisa Rojas Work Phone: [facility] 04-06-2024 13:05-0400 SaO2% (BldA) [Mass fraction] 97 % MD Nisa Rojas Work Phone: [facility] 04-06-2024 13:05-0400 Systolic blood pressure 156 mm[Hg] MD Nisa Rojas Work Phone: [facility] 04-06-2024 13:04-0400 Body height 175.26 cm MD Nisa Rojas Work Phone: [facility] 04-06-2024 13:04-0400 Body weight 136.07 kg MD Nisa Rojas Work Phone: [facility] 03-17-2024 12:57-0400 Diastolic blood pressure 101 mm[Hg] MD Nisa Rojas Work Phone: [facility] 03-17-2024 12:57-0400 Heart rate 51 /min MD Nisa Rojas Work Phone: [facility] 03-17-2024 12:57-0400 Respiratory rate 20 /min MD Nisa Rojas Work Phone: [facility] 03-17-2024 12:57-0400 SaO2% (BldA) [Mass fraction] 98 % MD Nisa Rojas Work Phone: [facility] 03-17-2024 12:57-0400 Systolic blood pressure 194 mm[Hg] MD Nisa Rojas Work Phone: [facility] 03-17-2024 11:22-0400 Body height 175.26 cm MD Nisa Rojas Work Phone: [facility] 03-17-2024 11:22-0400 Body temperature 98.9 [degF] MD Nisa Rojas Work Phone: [facility] 03-17-2024 11:22-0400 Body weight 137.6 kg MD Nisa Rojas Work Phone: [facility] 03-15-2024 09:10-0400 Body height 175.26 cm MD Nisa Rojas Work Phone: [facility] 03-15-2024 09:10-0400 Body temperature 98.4 [degF] MD Nisa Rojas Work Phone: [facility] 03-15-2024 09:10-0400 Body weight 136.07 kg MD Nisa Rojas Work Phone: [facility] 03-15-2024 09:10-0400 Diastolic blood pressure 102 mm[Hg] MD Nisa Rojas Work Phone: [facility] 03-15-2024 09:10-0400 Heart rate 63 /min MD Nisa Rojas Work Phone: [facility] 03-15-2024 09:10-0400 Respiratory rate 20 /min MD Nisa Rojas Work Phone: [facility] 03-15-2024 09:10-0400 SaO2% (BldA) [Mass fraction] 99 % MD Nisa Rojas Work Phone: [facility] 03-15-2024 09:10-0400 Systolic blood pressure 186 mm[Hg] MD Nisa Rojas Work Phone: [facility] 03-11-2024 04:10-0400 Body temperature 97.8 [degF] MD Nisa Rojas Work Phone: [facility] 03-11-2024 04:10-0400 Diastolic blood pressure 110 mm[Hg] MD Nisa Rojas Work Phone: [facility] 03-11-2024 04:10-0400 Heart rate 66 /min MD Nisa Rojas Work Phone: [facility] 03-11-2024 04:10-0400 Respiratory rate 22 /min MD Nisa Rojas Work Phone: [facility] 03-11-2024 04:10-0400 SaO2% (BldA) [Mass fraction] 95 % MD Nisa Rojas Work Phone: [facility] 03-11-2024 04:10-0400 Systolic blood pressure 170 mm[Hg] MD Nisa Rojas Work Phone: [facility] 03-11-2024 04:05-0400 Body height 175.26 cm MD Nisa Rojas Work Phone: [facility] 03-11-2024 04:05-0400 Body weight 136.07 kg MD Nisa Rojas Work Phone: [facility] 03-10-2024 18:38-0400 Diastolic blood pressure 97 mm[Hg] MD Nisa Rojas Work Phone: [facility] 03-10-2024 18:38-0400 Heart rate 60 /min MD Nisa Rojas Work Phone: [facility] 03-10-2024 18:38-0400 Respiratory rate 18 /min MD Nisa Rojas Work Phone: [facility] 03-10-2024 18:38-0400 SaO2% (BldA) [Mass fraction] 98 % MD Nisa Rojas Work Phone: [facility] 03-10-2024 18:38-0400 Systolic blood pressure 173 mm[Hg] MD Nisa Rojas Work Phone: [facility] 03-10-2024 17:43-0400 Body temperature 98.2 [degF] MD Nisa Rojas Work Phone: [facility] 03-10-2024 17:42-0400 Body height 175.26 cm MD Nisa Rojas Work Phone: [facility] 03-10-2024 17:42-0400 Body weight 137.25 kg MD Nisa Rojas Work Phone: [facility] 01-01-2024 09:46-0400 Diastolic blood pressure 126 mm[Hg] MD Nisa Rojas Work Phone: [facility] 01-01-2024 09:46-0400 Systolic blood pressure 166 mm[Hg] MD Nisa Rojas Work Phone: [facility] 01-01-2024 09:03-0400 Body height 175.26 cm MD Nisa Rojas Work Phone: [facility] 01-01-2024 09:03-0400 Body temperature 98.3 [degF] MD Nisa Rojas Work Phone: [facility] 01-01-2024 09:03-0400 Body weight 136.07 kg MD Nisa Rojas Work Phone: [facility] 01-01-2024 09:03-0400 Heart rate 72 /min MD Nisa Rojas Work Phone: [facility] 01-01-2024 09:03-0400 Respiratory rate 22 /min MD Nisa Rojas Work Phone: [facility] 01-01-2024 09:03-0400 SaO2% (BldA) [Mass fraction] 97 % MD Nisa Rojas Work Phone: [facility] 12-26-2023 11:10-0400 Body height 175.26 cm MD Nisa Rojas Work Phone: [facility] 12-26-2023 11:10-0400 Body temperature 98.2 [degF] MD Nisa Rojas Work Phone: [facility] 12-26-2023 11:10-0400 Body weight 131.54 kg MD Nisa Rojas Work Phone: [facility] 12-26-2023 11:10-0400 Diastolic blood pressure 98 mm[Hg] MD Nisa Rojas Work Phone: [facility] 12-26-2023 11:10-0400 Heart rate 61 /min MD Nisa Rojas Work Phone: [facility] 12-26-2023 11:10-0400 Respiratory rate 20 /min MD Nisa Rojas Work Phone: [facility] 12-26-2023 11:10-0400 SaO2% (BldA) [Mass fraction] 97 % MD Nisa Rojas Work Phone: [facility] 12-26-2023 11:10-0400 Systolic blood pressure 184 mm[Hg] MD Nisa Rojas Work Phone: [facility] 12-13-2023 13:22-0400 Body height 175.26 cm MD Nisa Rojas Work Phone: [facility] 12-13-2023 13:22-0400 Body temperature 98 [degF] MD Nisa Rojas Work Phone: [facility] 12-13-2023 13:22-0400 Body weight 131.54 kg MD Nisa Rojas Work Phone: [facility] 12-13-2023 13:22-0400 Diastolic blood pressure 88 mm[Hg] MD Nisa Rojas Work Phone: [facility] 12-13-2023 13:22-0400 Heart rate 75 /min MD Nisa Rojas Work Phone: [facility] 12-13-2023 13:22-0400 Respiratory rate 24 /min MD Nisa Rojas Work Phone: [facility] 12-13-2023 13:22-0400 SaO2% (BldA) [Mass fraction] 97 % MD Nisa Rojas Work Phone: [facility] 12-13-2023 13:22-0400 Systolic blood pressure 146 mm[Hg] MD Nisa Rojas Work Phone: [facility] 12-04-2023 08:30-0400 Diastolic blood pressure 75 mm[Hg] MD Nisa Rojas Work Phone: [facility] 12-04-2023 08:30-0400 Heart rate 63 /min MD Nisa Rojas Work Phone: [facility] 12-04-2023 08:30-0400 Respiratory rate 16 /min MD Nisa Rojas Work Phone: [facility] 12-04-2023 08:30-0400 Systolic blood pressure 112 mm[Hg] MD Nisa Rojas Work Phone: [facility] 10-04-2023 22:19-0500 Body height 175.26 cm MD Nisa Rojas Work Phone: [facility] 10-04-2023 22:19-0500 Body temperature 98.5 [degF] MD Nisa Rojas Work Phone: [facility] 10-04-2023 22:19-0500 Body weight 141 kg MD Nisa Rojas Work Phone: [facility] 10-04-2023 22:19-0500 Diastolic blood pressure 90 mm[Hg] MD Nisa Rojas Work Phone: [facility] 10-04-2023 22:19-0500 Heart rate 66 /min MD Nisa Rojas Work Phone: [facility] 10-04-2023 22:19-0500 Respiratory rate 14 /min MD Nisa Rojas Work Phone: [facility] 10-04-2023 22:19-0500 SaO2% (BldA) [Mass fraction] 96 % MD Nisa Rojas Work Phone: [facility] 10-04-2023 22:19-0500 Systolic blood pressure 161 mm[Hg] MD Nisa Rojas Work Phone: [facility] 09-13-2023 11:04-0500 Body height 175.26 cm MD Nisa Rojas Work Phone: [facility] 09-13-2023 11:04-0500 Body temperature 97.9 [degF] MD Nisa Rojas Work Phone: [facility] 09-13-2023 11:04-0500 Body weight 131.54 kg MD Nisa Rojas Work Phone: [facility] 09-13-2023 11:04-0500 Diastolic blood pressure 94 mm[Hg] MD Nisa Rojas Work Phone: [facility] 09-13-2023 11:04-0500 Heart rate 68 /min MD Nisa Rojas Work Phone: [facility] 09-13-2023 11:04-0500 Respiratory rate 20 /min MD Nisa Rojas Work Phone: [facility] 09-13-2023 11:04-0500 SaO2% (BldA) [Mass fraction] 98 % MD Nisa Rojas Work Phone: [facility] 09-13-2023 11:04-0500 Systolic blood pressure 168 mm[Hg] MD Nisa Rojas Work Phone: [facility] 09-10-2023 03:30-0500 Body height 175.26 cm MD Nisa Rojas Work Phone: [facility] 09-10-2023 03:30-0500 Body temperature 98 [degF] MD Nisa Rojas Work Phone: [facility] 09-10-2023 03:30-0500 Body weight 131.54 kg MD Nisa Rojas Work Phone: [facility] 09-10-2023 03:30-0500 Diastolic blood pressure 100 mm[Hg] MD Nisa Rojas Work Phone: [facility] 09-10-2023 03:30-0500 Heart rate 60 /min MD Nisa Rojas Work Phone: [facility] 09-10-2023 03:30-0500 Respiratory rate 20 /min MD Nisa Rojas Work Phone: [facility] 09-10-2023 03:30-0500 SaO2% (BldA) [Mass fraction] 95 % MD Nisa Rojas Work Phone: [facility] 09-10-2023 03:30-0500 Systolic blood pressure 176 mm[Hg] MD Nisa Rojas Work Phone: [facility] 08-22-2023 09:51-0500 Diastolic blood pressure 116 mm[Hg] MD Nisa Rojas Work Phone: [facility] 08-22-2023 09:51-0500 Heart rate 70 /min MD Nisa Rojas Work Phone: [facility] 08-22-2023 09:51-0500 SaO2% (BldA) [Mass fraction] 97 % MD Nisa Rojas Work Phone: [facility] 08-22-2023 09:51-0500 Systolic blood pressure 186 mm[Hg] MD Nisa Rojas Work Phone: [facility] 08-22-2023 09:32-0500 Body height 175.26 cm MD Nisa Rojas Work Phone: [facility] 08-22-2023 09:32-0500 Body temperature 97.8 [degF] MD Nisa Rojas Work Phone: [facility] 08-22-2023 09:32-0500 Body weight 131.54 kg MD Nisa Rojas Work Phone: [facility] 08-22-2023 09:32-0500 Respiratory rate 20 /min MD Nisa Rojas Work Phone: [facility] 08-14-2023 11:30-0500 Body height 175.26 cm MD Nisa Rojas Work Phone: [facility] 08-14-2023 11:30-0500 Body temperature 98.5 [degF] MD Nisa Rojas Work Phone: [facility] 08-14-2023 11:30-0500 Body weight 131.54 kg MD Nisa Rojas Work Phone: [facility] 08-14-2023 11:30-0500 Diastolic blood pressure 103 mm[Hg] MD Nisa Rojas Work Phone: [facility] 08-14-2023 11:30-0500 Heart rate 72 /min MD Nisa Rojas Work Phone: [facility] 08-14-2023 11:30-0500 Respiratory rate 16 /min MD Nisa Rojas Work Phone: [facility] 08-14-2023 11:30-0500 SaO2% (BldA) [Mass fraction] 99 % MD Nisa Rojas Work Phone: [facility] 08-14-2023 11:30-0500 Systolic blood pressure 172 mm[Hg] MD Nisa Rojas Work Phone: [facility] 08-11-2023 08:08-0500 Body height 175.26 cm MD Nisa Rojas Work Phone: [facility] 08-11-2023 08:08-0500 Body temperature 98.4 [degF] MD Nisa Rojas Work Phone: [facility] 08-11-2023 08:08-0500 Body weight 138 kg MD Nisa Rojas Work Phone: [facility] 08-11-2023 08:08-0500 Diastolic blood pressure 99 mm[Hg] MD Nisa Rojas Work Phone: [facility] 08-11-2023 08:08-0500 Heart rate 61 /min MD Nisa Rojas Work Phone: [facility] 08-11-2023 08:08-0500 Respiratory rate 20 /min MD Nisa Rojas Work Phone: [facility] 08-11-2023 08:08-0500 SaO2% (BldA) [Mass fraction] 100 % MD Nisa Rojas Work Phone: [facility] 08-11-2023 08:08-0500 Systolic blood pressure 208 mm[Hg] MD Nisa Rojas Work Phone: [facility] 07-24-2023 01:27-0500 Diastolic blood pressure 100 mm[Hg] MD Nisa Rojas Work Phone: [facility] 07-24-2023 01:27-0500 Systolic blood pressure 204 mm[Hg] MD Nisa Rojas Work Phone: [facility] 07-24-2023 01:06-0500 Body temperature 97.3 [degF] MD Nisa Rojas Work Phone: [facility] 07-24-2023 01:06-0500 Heart rate 65 /min MD Nisa Rojas Work Phone: [facility] 07-24-2023 01:06-0500 Respiratory rate 16 /min MD Nisa Rojas Work Phone: [facility] 07-24-2023 01:06-0500 SaO2% (BldA) [Mass fraction] 99 % MD Nisa Rojas Work Phone: [facility] 07-24-2023 01:03-0500 Body height 175.26 cm MD Nisa Rojas Work Phone: [facility] 07-24-2023 01:03-0500 Body weight 131.54 kg MD Nisa Rojas Work Phone: [facility] 07-23-2023 09:25-0500 Body height 175.26 cm MD Nisa Rojas Work Phone: [facility] 07-23-2023 09:25-0500 Body temperature 97.8 [degF] MD Nisa Rojas Work Phone: [facility] 07-23-2023 09:25-0500 Body weight 135 kg MD Nisa Rojas Work Phone: [facility] 07-23-2023 09:25-0500 Diastolic blood pressure 93 mm[Hg] MD Nisa Rojas Work Phone: [facility] 07-23-2023 09:25-0500 Heart rate 60 /min MD Nisa Rojas Work Phone: [facility] 07-23-2023 09:25-0500 Respiratory rate 22 /min MD Nisa Rojas Work Phone: [facility] 07-23-2023 09:25-0500 SaO2% (BldA) [Mass fraction] 97 % MD Nisa Rojas Work Phone: [facility] 07-23-2023 09:25-0500 Systolic blood pressure 138 mm[Hg] MD Nisa Rojas Work Phone: [facility] 07-18-2023 16:11-0500 Body height 175.26 cm MD Nisa Rojas Work Phone: [facility] 07-18-2023 16:11-0500 Body temperature 98.7 [degF] MD Nisa Rojas Work Phone: [facility] 07-18-2023 16:11-0500 Body weight 131.99 kg MD Nisa Rojas Work Phone: [facility] 07-18-2023 16:11-0500 Diastolic blood pressure 100 mm[Hg] MD Nisa Rojas Work Phone: [facility] 07-18-2023 16:11-0500 Heart rate 65 /min MD Nisa Rojas Work Phone: [facility] 07-18-2023 16:11-0500 Respiratory rate 18 /min MD Nisa Rojas Work Phone: [facility] 07-18-2023 16:11-0500 SaO2% (BldA) [Mass fraction] 99 % MD Nisa Rojas Work Phone: [facility] 07-18-2023 16:11-0500 Systolic blood pressure 190 mm[Hg] MD Nisa Rojas Work Phone: [facility] 07-15-2023 12:45-0500 Diastolic blood pressure 110 mm[Hg] MD Nisa Rojas Work Phone: [facility] 07-15-2023 12:45-0500 Systolic blood pressure 204 mm[Hg] MD Nisa Rojas Work Phone: [facility] 07-15-2023 12:43-0500 Body height 175.26 cm MD Nisa Rojas Work Phone: [facility] 07-15-2023 12:43-0500 Body temperature 98.5 [degF] MD Nsia Rojas Work Phone: [facility] 07-15-2023 12:43-0500 Body weight 131 kg MD Nisa Rojas Work Phone: [facility] 07-15-2023 12:43-0500 Heart rate 61 /min MD Nisa Rojas Work Phone: [facility] 07-15-2023 12:43-0500 Respiratory rate 20 /min MD Nisa Rojas Work Phone: [facility] 07-15-2023 12:43-0500 SaO2% (BldA) [Mass fraction] 98 % MD Nisa Rojas Work Phone: [facility] 07-09-2023 08:40-0500 Diastolic blood pressure 98 mm[Hg] MD Nisa Rojas Work Phone: [facility] 07-09-2023 08:40-0500 Heart rate 65 /min MD Nisa Rojas Work Phone: [facility] 07-09-2023 08:40-0500 Respiratory rate 22 /min MD Nisa Rojas Work Phone: [facility] 07-09-2023 08:40-0500 SaO2% (BldA) [Mass fraction] 94 % MD Nisa Rojas Work Phone: [facility] 07-09-2023 08:40-0500 Systolic blood pressure 172 mm[Hg] MD Nisa Rojas Work Phone: [facility] 07-09-2023 08:16-0500 Body height 175.26 cm MD Nisa Rojas Work Phone: [facility] 07-09-2023 08:16-0500 Body temperature 98.8 [degF] MD Nisa Rojas Work Phone: [facility] 07-09-2023 08:16-0500 Body weight 129.27 kg MD Nisa Rojas Work Phone: [facility] 06-28-2023 12:18-0500 Body height 175.26 cm MD Nisa Rojas Work Phone: [facility] 06-28-2023 12:18-0500 Body temperature 98.3 [degF] MD Nisa Rojas Work Phone: [facility] 06-28-2023 12:18-0500 Body weight 130.2 kg MD Nisa Rojas Work Phone: [facility] 06-28-2023 12:18-0500 Diastolic blood pressure 91 mm[Hg] MD Nisa Rojas Work Phone: [facility] 06-28-2023 12:18-0500 Heart rate 75 /min MD Nisa Rojas Work Phone: [facility] 06-28-2023 12:18-0500 Respiratory rate 20 /min MD Nisa Rojas Work Phone: [facility] 06-28-2023 12:18-0500 SaO2% (BldA) [Mass fraction] 99 % MD Nisa Rojas Work Phone: [facility] 06-28-2023 12:18-0500 Systolic blood pressure 192 mm[Hg] MD Nisa Rojas Work Phone: [facility] 06-28-2023 02:01-0500 Body height 175.26 cm MD Nisa Rojas Work Phone: [facility] 06-28-2023 02:01-0500 Body temperature 98.2 [degF] MD Nisa Rojas Work Phone: [facility] 06-28-2023 02:01-0500 Body weight 132.9 kg MD Nisa Rojas Work Phone: [facility] 06-28-2023 02:01-0500 Diastolic blood pressure 100 mm[Hg] MD Nisa Rojas Work Phone: [facility] 06-28-2023 02:01-0500 Heart rate 80 /min MD Nisa Rojas Work Phone: [facility] 06-28-2023 02:01-0500 Respiratory rate 20 /min MD Nisa Rojas Work Phone: [facility] 06-28-2023 02:01-0500 SaO2% (BldA) [Mass fraction] 99 % MD Nisa Rojas Work Phone: [facility] 06-28-2023 02:01-0500 Systolic blood pressure 224 mm[Hg] MD Nisa Rojas Work Phone: [facility] 06-27-2023 15:46-0500 Body height 175.26 cm MD Nisa Rojas Work Phone: [facility] 06-27-2023 15:46-0500 Body temperature 98.1 [degF] MD Nisa Rojas Work Phone: [facility] 06-27-2023 15:46-0500 Body weight 132.7 kg MD Nisa Rojas Work Phone: [facility] 06-27-2023 15:46-0500 Diastolic blood pressure 100 mm[Hg] MD Nisa Rojas Work Phone: [facility] 06-27-2023 15:46-0500 Heart rate 71 /min MD Nisa Rojas Work Phone: [facility] 06-27-2023 15:46-0500 Respiratory rate 20 /min MD Nisa Rojas Work Phone: [facility] 06-27-2023 15:46-0500 SaO2% (BldA) [Mass fraction] 100 % MD Nisa Rojas Work Phone: [facility] 06-27-2023 15:46-0500 Systolic blood pressure 190 mm[Hg] MD Nisa Rojas Work Phone: [facility] 06-23-2023 11:01-0500 Body height 175.26 cm MD Nisa Rojas Work Phone: [facility] 06-23-2023 11:01-0500 Body temperature 98.8 [degF] MD Nisa Rojas Work Phone: [facility] 06-23-2023 11:01-0500 Body weight 131.6 kg MD Nisa Rojas Work Phone: [facility] 06-23-2023 11:01-0500 Diastolic blood pressure 98 mm[Hg] MD Nisa Rojas Work Phone: [facility] 06-23-2023 11:01-0500 Heart rate 64 /min MD Nisa Rojas Work Phone: [facility] 06-23-2023 11:01-0500 Respiratory rate 20 /min MD Nisa Rojas Work Phone: [facility] 06-23-2023 11:01-0500 SaO2% (BldA) [Mass fraction] 100 % MD Nisa Rojas Work Phone: [facility] 06-23-2023 11:01-0500 Systolic blood pressure 176 mm[Hg] MD Nisa Rojas Work Phone: [facility] 06-05-2023 08:30-0400 Diastolic blood pressure 91 mm[Hg] MD Nisa Rojas Work Phone: [facility] 06-05-2023 08:30-0400 Heart rate 54 /min MD Nisa Rojas Work Phone: [facility] 06-05-2023 08:30-0400 Respiratory rate 18 /min MD Nisa Rojas Work Phone: [facility] 06-05-2023 08:30-0400 Systolic blood pressure 165 mm[Hg] MD Nisa Rojas Work Phone: [facility] 05-25-2023 04:08-0400 Body height 175.26 cm MD Nisa Rojas Work Phone: [facility] 05-25-2023 04:08-0400 Body weight 120 kg MD Nisa Rojas Work Phone: [facility] 05-25-2023 03:32-0400 Diastolic blood pressure 90 mm[Hg] MD Nisa Rojas Work Phone: [facility] 05-25-2023 03:32-0400 Systolic blood pressure 150 mm[Hg] MD Nisa Rojas Work Phone: [facility] 05-25-2023 03:22-0400 Body temperature 98 [degF] MD Nisa Rojas Work Phone: [facility] 05-25-2023 03:22-0400 Heart rate 60 /min MD Nisa Rojas Work Phone: [facility] 05-25-2023 03:22-0400 Respiratory rate 18 /min MD Nisa Rojas Work Phone: [facility] 05-25-2023 03:22-0400 SaO2% (BldA) [Mass fraction] 100 % MD Nisa Rojas Work Phone: [facility] 03-25-2023 12:20-0400 Body height 175.26 cm MD Nisa Rojas Work Phone: [facility] 03-25-2023 12:20-0400 Body temperature 98.3 [degF] MD Nisa Rojas Work Phone: [facility] 03-25-2023 12:20-0400 Body weight 122.46 kg MD Nisa Rojas Work Phone: [facility] 03-25-2023 12:20-0400 Diastolic blood pressure 85 mm[Hg] MD Nisa Rojas Work Phone: [facility] 03-25-2023 12:20-0400 Heart rate 62 /min MD Nisa Rojas Work Phone: [facility] 03-25-2023 12:20-0400 Respiratory rate 18 /min MD Nisa Rojas Work Phone: [facility] 03-25-2023 12:20-0400 SaO2% (BldA) [Mass fraction] 99 % MD Nisa Rojas Work Phone: [facility] 03-25-2023 12:20-0400 Systolic blood pressure 157 mm[Hg] MD Nisa Rojas Work Phone: [facility] 03-23-2023 13:40-0400 Diastolic blood pressure 100 mm[Hg] MD Nisa Rojas Work Phone: [facility] 03-23-2023 13:40-0400 Heart rate 70 /min MD Nisa Rojas Work Phone: [facility] 03-23-2023 13:40-0400 Systolic blood pressure 159 mm[Hg] MD Nisa Rojas Work Phone: [facility] 03-23-2023 12:46-0400 Body height 175.26 cm MD Nisa Rojas Work Phone: [facility] 03-23-2023 12:46-0400 Body temperature 98.2 [degF] MD Nisa Rojas Work Phone: [facility] 03-23-2023 12:46-0400 Body weight 122.1 kg MD Nisa Rojas Work Phone: [facility] 03-23-2023 12:46-0400 Respiratory rate 20 /min MD Nisa Rojas Work Phone: [facility] 03-23-2023 12:46-0400 SaO2% (BldA) [Mass fraction] 100 % MD Nisa Rojas Work Phone: [facility] 03-23-2023 12:28-0400 Body temperature 98.3 [degF] MD Nisa Rojas Work Phone: [facility] 03-23-2023 12:28-0400 Diastolic blood pressure 88 mm[Hg] MD iNsa Rojas Work Phone: [facility] 03-23-2023 12:28-0400 Heart rate 57 /min MD Nisa Rojas Work Phone: [facility] 03-23-2023 12:28-0400 Respiratory rate 20 /min MD Nisa Rojas Work Phone: [facility] 03-23-2023 12:28-0400 SaO2% (BldA) [Mass fraction] 97 % MD Nisa Rojas Work Phone: [facility] 03-23-2023 12:28-0400 Systolic blood pressure 157 mm[Hg] MD Nisa Rojas Work Phone: [facility] 03-23-2023 10:05-0400 Body height 175.26 cm MD Nisa Rojas Work Phone: [facility] 03-23-2023 10:05-0400 Body weight 124.9 kg MD Nisa Rojas Work Phone: [facility] 03-22-2023 19:00-0400 Body temperature 98.6 [degF] MD Nisa Rojas Work Phone: [facility] 03-22-2023 19:00-0400 Body weight 121.25 kg MD Nisa Rojas Work Phone: [facility] 03-22-2023 19:00-0400 Diastolic blood pressure 110 mm[Hg] MD Nisa Rojas Work Phone: [facility] 03-22-2023 19:00-0400 Heart rate 80 /min MD Nisa Rojas Work Phone: [facility] 03-22-2023 19:00-0400 Respiratory rate 24 /min MD Nisa Rojas Work Phone: [facility] 03-22-2023 19:00-0400 SaO2% (BldA) [Mass fraction] 95 % MD Nisa Rojas Work Phone: [facility] 03-22-2023 19:00-0400 Systolic blood pressure 180 mm[Hg] MD Nisa Rojas Work Phone: [facility] 03-22-2023 03:24-0400 Body temperature 97.5 [degF] MD Nisa Rojas Work Phone: [facility] 03-22-2023 03:24-0400 Diastolic blood pressure 106 mm[Hg] MD Nisa Rojas Work Phone: [facility] 03-22-2023 03:24-0400 Heart rate 73 /min MD Nisa Rojas Work Phone: [facility] 03-22-2023 03:24-0400 Respiratory rate 18 /min MD Nisa Rojas Work Phone: [facility] 03-22-2023 03:24-0400 SaO2% (BldA) [Mass fraction] 100 % MD Nisa Rojas Work Phone: [facility] 03-22-2023 03:24-0400 Systolic blood pressure 184 mm[Hg] MD Nisa Rojas Work Phone: [facility] 03-22-2023 03:23-0400 Body height 175.26 cm MD Nisa Rojas Work Phone: [facility] 03-22-2023 03:23-0400 Body weight 120.65 kg MD Nisa Rojas Work Phone: [facility] 03-20-2023 11:06-0400 Heart rate 58 /min MD Nisa Rojas Work Phone: [facility] 03-20-2023 11:00-0400 Diastolic blood pressure 92 mm[Hg] MD Nisa Rojas Work Phone: [facility] 03-20-2023 11:00-0400 Respiratory rate 20 /min MD Nisa Rojas Work Phone: [facility] 03-20-2023 11:00-0400 SaO2% (BldA) [Mass fraction] 97 % MD Nisa Rojas Work Phone: [facility] 03-20-2023 11:00-0400 Systolic blood pressure 150 mm[Hg] MD Nisa Rojas Work Phone: [facility] 03-20-2023 09:41-0400 Body height 175.26 cm MD Nisa Rojas Work Phone: [facility] 03-20-2023 09:41-0400 Body temperature 97.7 [degF] MD Nisa Rojas Work Phone: [facility] 03-20-2023 09:41-0400 Body weight 120.65 kg MD Nisa Rojas Work Phone: [facility] 03-11-2023 15:58-0400 Body height 175.26 cm MD Nisa Rojas Work Phone: [facility] 03-11-2023 11:46-0400 Body temperature 98.1 [degF] MD Nisa Rojas Work Phone: [facility] 03-11-2023 11:46-0400 Diastolic blood pressure 99 mm[Hg] MD Nisa Rojas Work Phone: [facility] 03-11-2023 11:46-0400 Heart rate 52 /min MD Nisa Rojas Work Phone: [facility] 03-11-2023 11:46-0400 Respiratory rate 16 /min MD Nisa Rojas Work Phone: [facility] 03-11-2023 11:46-0400 SaO2% (BldA) [Mass fraction] 98 % MD Nisa Rojas Work Phone: [facility] 03-11-2023 11:46-0400 Systolic blood pressure 171 mm[Hg] MD Nisa Rojas Work Phone: [facility] 03-11-2023 06:58-0400 Body weight 120.3 kg MD Nisa Rojas Work Phone: [facility] 03-11-2023 05:34-0400 Diastolic blood pressure 72 mm[Hg] MD Nisa Rojas Work Phone: [facility] 03-11-2023 05:34-0400 Heart rate 53 /min MD Nisa Rojas Work Phone: [facility] 03-11-2023 05:34-0400 Respiratory rate 21 /min MD Nisa Rojas Work Phone: [facility] 03-11-2023 05:34-0400 SaO2% (BldA) [Mass fraction] 100 % MD Nisa Rojas Work Phone: [facility] 03-11-2023 05:34-0400 Systolic blood pressure 151 mm[Hg] MD Nisa Rojas Work Phone: [facility] 03-11-2023 02:17-0400 Body temperature 98.1 [degF] MD Nisa Rojas Work Phone: [facility] 03-11-2023 02:14-0400 Body height 175.26 cm MD Nisa Rojas Work Phone: [facility] 03-11-2023 02:14-0400 Body weight 117.93 kg MD Nisa Rojas Work Phone: [facility] 03-10-2023 15:37-0400 Body height 175.26 cm MD Nisa Rojas Work Phone: [facility] 03-10-2023 15:37-0400 Body temperature 97.9 [degF] MD Nisa Rojas Work Phone: [facility] 03-10-2023 15:37-0400 Body weight 117.93 kg MD Nisa Rojas Work Phone: [facility] 03-10-2023 15:37-0400 Diastolic blood pressure 101 mm[Hg] MD Nisa Rojas Work Phone: [facility] 03-10-2023 15:37-0400 Heart rate 58 /min MD Nisa Rojas Work Phone: [facility] 03-10-2023 15:37-0400 Respiratory rate 18 /min MD Nisa Rojas Work Phone: [facility] 03-10-2023 15:37-0400 SaO2% (BldA) [Mass fraction] 97 % MD Nisa Rojas Work Phone: [facility] 03-10-2023 15:37-0400 Systolic blood pressure 166 mm[Hg] MD Nisa Rojas Work Phone: [facility] 03-10-2023 10:29-0400 Body temperature 98.2 [degF] MD Nisa Rojas Work Phone: [facility] 03-10-2023 10:29-0400 Diastolic blood pressure 90 mm[Hg] MD Nisa Rojas Work Phone: [facility] 03-10-2023 10:29-0400 Heart rate 58 /min MD Nisa Rojas Work Phone: [facility] 03-10-2023 10:29-0400 Respiratory rate 20 /min MD Nisa Rojas Work Phone: [facility] 03-10-2023 10:29-0400 SaO2% (BldA) [Mass fraction] 97 % MD Nisa Rojas Work Phone: [facility] 03-10-2023 10:29-0400 Systolic blood pressure 157 mm[Hg] MD Nisa Rojas Work Phone: [facility] 03-10-2023 10:28-0400 Body height 175.26 cm MD Nisa Rojas Work Phone: [facility] 03-10-2023 10:28-0400 Body weight 117.93 kg MD Nisa Rojas Work Phone: [facility] 02-20-2023 10:29-0400 Respiratory rate 18 /min MD Nisa Rojas Work Phone: [facility] 02-20-2023 10:29-0400 SaO2% (BldA) [Mass fraction] 99 % MD Nisa Rojas Work Phone: [facility] 02-20-2023 08:30-0400 Body height 175.26 cm MD Nisa Rojas Work Phone: [facility] 02-20-2023 08:30-0400 Body temperature 98.1 [degF] MD Nisa Rojas Work Phone: [facility] 02-20-2023 08:30-0400 Body weight 120.9 kg MD Nisa Rojas Work Phone: [facility] 02-20-2023 08:30-0400 Diastolic blood pressure 103 mm[Hg] MD Nisa Rojas Work Phone: [facility] 02-20-2023 08:30-0400 Heart rate 65 /min MD Nisa Rojas Work Phone: [facility] 02-20-2023 08:30-0400 Systolic blood pressure 165 mm[Hg] MD Nisa Rojas Work Phone: [facility] 02-04-2023 15:26-0400 Body height 175.26 cm MD Nisa Rojas Work Phone: [facility] 02-04-2023 15:26-0400 Body temperature 98.7 [degF] MD Nisa Rojas Work Phone: [facility] 02-04-2023 15:26-0400 Body weight 124.2 kg MD Nisa Rojas Work Phone: [facility] 02-04-2023 15:26-0400 Diastolic blood pressure 81 mm[Hg] MD Nisa Rojas Work Phone: [facility] 02-04-2023 15:26-0400 Heart rate 53 /min MD Nisa Rojas Work Phone: [facility] 02-04-2023 15:26-0400 Respiratory rate 24 /min MD Nisa Rojas Work Phone: [facility] 02-04-2023 15:26-0400 SaO2% (BldA) [Mass fraction] 95 % MD Nisa Rojas Work Phone: [facility] 02-04-2023 15:26-0400 Systolic blood pressure 168 mm[Hg] MD Nisa Rojas Work Phone: [facility] 01-18-2023 19:10-0400 Diastolic blood pressure 91 mm[Hg] MD Nisa Rojas Work Phone: [facility] 01-18-2023 19:10-0400 Heart rate 59 /min MD Nisa Rojas Work Phone: [facility] 01-18-2023 19:10-0400 Respiratory rate 18 /min MD Nisa Rojas Work Phone: [facility] 01-18-2023 19:10-0400 SaO2% (BldA) [Mass fraction] 98 % MD Nisa Rojas Work Phone: [facility] 01-18-2023 19:10-0400 Systolic blood pressure 189 mm[Hg] MD Nisa Rojas Work Phone: [facility] 01-18-2023 17:09-0400 Body temperature 98.5 [degF] MD Nisa Rojas Work Phone: [facility] 01-18-2023 17:08-0400 Body height 175.26 cm MD Nisa Rojas Work Phone: [facility] 01-18-2023 17:08-0400 Body weight 127 kg MD Nisa Rojas Work Phone: [facility] 01-16-2023 17:35-0400 Heart rate 66 /min MD Nisa Rojas Work Phone: [facility] 01-16-2023 17:26-0400 Body height 175.26 cm MD Nisa Rojas Work Phone: [facility] 01-16-2023 17:26-0400 Body temperature 98.8 [degF] MD Nisa Rojas Work Phone: [facility] 01-16-2023 17:26-0400 Body weight 127 kg MD Nisa Rojas Work Phone: [facility] 01-16-2023 17:26-0400 Diastolic blood pressure 105 mm[Hg] MD Nisa Rojas Work Phone: [facility] 01-16-2023 17:26-0400 Respiratory rate 20 /min MD Nisa Rojas Work Phone: [facility] 01-16-2023 17:26-0400 SaO2% (BldA) [Mass fraction] 97 % MD Nisa Rojas Work Phone: [facility] 01-16-2023 17:26-0400 Systolic blood pressure 176 mm[Hg] MD Nisa Rojas Work Phone: [facility] 01-06-2023 22:28-0400 Body height 175.26 cm MD Nisa Rojas Work Phone: [facility] 01-06-2023 22:28-0400 Body temperature 98.8 [degF] MD Nisa Rojas Work Phone: [facility] 01-06-2023 22:28-0400 Body weight 128.6 kg MD Nisa Rojas Work Phone: [facility] 01-06-2023 22:28-0400 Diastolic blood pressure 105 mm[Hg] MD Nisa Rojas Work Phone: [facility] 01-06-2023 22:28-0400 Heart rate 89 /min MD Nisa Rojas Work Phone: [facility] 01-06-2023 22:28-0400 Respiratory rate 17 /min MD Nisa Rojas Work Phone: [facility] 01-06-2023 22:28-0400 SaO2% (BldA) [Mass fraction] 96 % MD Nisa Rojas Work Phone: [facility] 01-06-2023 22:28-0400 Systolic blood pressure 173 mm[Hg] MD Nisa Rojas Work Phone: [facility] 01-05-2023 12:10-0400 Body height 175.26 cm MD Nisa Rojas Work Phone: [facility] 01-05-2023 12:10-0400 Body temperature 98.4 [degF] MD Nisa Rojas Work Phone: [facility] 01-05-2023 12:10-0400 Body weight 128.4 kg MD Nisa Rojas Work Phone: [facility] 01-05-2023 12:10-0400 Diastolic blood pressure 106 mm[Hg] MD Nisa Rojas Work Phone: [facility] 01-05-2023 12:10-0400 Heart rate 74 /min MD Nisa Rojas Work Phone: [facility] 01-05-2023 12:10-0400 Respiratory rate 24 /min MD Nisa Rojas Work Phone: [facility] 01-05-2023 12:10-0400 SaO2% (BldA) [Mass fraction] 96 % MD Nisa Rojas Work Phone: [facility] 01-05-2023 12:10-0400 Systolic blood pressure 179 mm[Hg] MD Nisa Rojas Work Phone: [facility] 12-30-2022 13:42-0400 Heart rate 66 /min MD Nisa Rojas Work Phone: [facility] 12-30-2022 13:33-0400 Body height 167.64 cm MD Nisa Rojas Work Phone: [facility] 12-30-2022 13:33-0400 Body temperature 98.3 [degF] MD Nisa Rojas Work Phone: [facility] 12-30-2022 13:33-0400 Body weight 131.85 kg MD Nisa Rojas Work Phone: [facility] 12-30-2022 13:33-0400 Diastolic blood pressure 99 mm[Hg] MD Nisa Rojas Work Phone: [facility] 12-30-2022 13:33-0400 Respiratory rate 20 /min MD Nisa Rojas Work Phone: [facility] 12-30-2022 13:33-0400 SaO2% (BldA) [Mass fraction] 94 % MD Nisa Rojas Work Phone: [facility] 12-30-2022 13:33-0400 Systolic blood pressure 170 mm[Hg] MD Nisa Rojas Work Phone: [facility] 12-28-2022 19:45-0400 Heart rate 63 /min MD Nisa Rojas Work Phone: [facility] 12-28-2022 19:20-0400 Body height 175.26 cm MD Nisa Rojas Work Phone: [facility] 12-28-2022 19:20-0400 Body temperature 98.5 [degF] MD Nisa Rojas Work Phone: [facility] 12-28-2022 19:20-0400 Body weight 131.54 kg MD Nisa Rojas Work Phone: [facility] 12-28-2022 19:20-0400 Diastolic blood pressure 98 mm[Hg] MD Nisa Rojas Work Phone: [facility] 12-28-2022 19:20-0400 Respiratory rate 22 /min MD Nisa Rojas Work Phone: [facility] 12-28-2022 19:20-0400 SaO2% (BldA) [Mass fraction] 98 % MD Nisa Rojas Work Phone: [facility] 12-28-2022 19:20-0400 Systolic blood pressure 177 mm[Hg] MD Nisa Rojas Work Phone: [facility] 12-11-2022 18:16-0400 Body height 175.26 cm MD Nisa Rojas Work Phone: [facility] 12-11-2022 18:16-0400 Body temperature 99 [degF] MD Nisa Rojas Work Phone: [facility] 12-11-2022 18:16-0400 Body weight 134.2 kg MD Nisa Rojas Work Phone: [facility] 12-11-2022 18:16-0400 Diastolic blood pressure 86 mm[Hg] MD Nisa Rojas Work Phone: [facility] 12-11-2022 18:16-0400 Heart rate 69 /min MD Nisa Rojas Work Phone: [facility] 12-11-2022 18:16-0400 Respiratory rate 20 /min MD Nisa Rojas Work Phone: [facility] 12-11-2022 18:16-0400 SaO2% (BldA) [Mass fraction] 98 % MD Nisa Rojas Work Phone: [facility] 12-11-2022 18:16-0400 Systolic blood pressure 159 mm[Hg] MD Nisa Rojas Work Phone: [facility] 12-05-2022 08:18-0400 Body temperature 97.5 [degF] MD Nisa Rojas Work Phone: [facility] 12-05-2022 08:18-0400 Diastolic blood pressure 89 mm[Hg] MD Nisa Rojas Work Phone: [facility] 12-05-2022 08:18-0400 Heart rate 52 /min MD Nisa Rojas Work Phone: [facility] 12-05-2022 08:18-0400 Respiratory rate 18 /min MD Nisa Rojas Work Phone: [facility] 12-05-2022 08:18-0400 SaO2% (BldA) [Mass fraction] 98 % MD Nisa Rojas Work Phone: [facility] 12-05-2022 08:18-0400 Systolic blood pressure 157 mm[Hg] MD Nisa Rojas Work Phone: [facility] 11-29-2022 11:59-0400 Body height 175.26 cm MD Nisa Rojas Work Phone: [facility] 11-29-2022 11:59-0400 Body temperature 99.2 [degF] MD Nisa Rojas Work Phone: [facility] 11-29-2022 11:59-0400 Body weight 136.07 kg MD Nisa Rojas Work Phone: [facility] 11-29-2022 11:59-0400 Diastolic blood pressure 91 mm[Hg] MD Nisa Rojas Work Phone: [facility] 11-29-2022 11:59-0400 Heart rate 73 /min MD Nisa Rojas Work Phone: [facility] 11-29-2022 11:59-0400 Respiratory rate 18 /min MD Nisa Rojas Work Phone: [facility] 11-29-2022 11:59-0400 SaO2% (BldA) [Mass fraction] 99 % MD Nisa Rojas Work Phone: [facility] 11-29-2022 11:59-0400 Systolic blood pressure 156 mm[Hg] MD Nisa Rojas Work Phone: [facility] 11-23-2022 00:15-0400 Body height 175.26 cm MD Nisa Rojas Work Phone: [facility] 11-23-2022 00:15-0400 Body temperature 98.9 [degF] MD Nisa Rojas Work Phone: [facility] 11-23-2022 00:15-0400 Body weight 137.85 kg MD Nisa Rojas Work Phone: [facility] 11-23-2022 00:15-0400 Diastolic blood pressure 108 mm[Hg] MD Nisa Rojas Work Phone: [facility] 11-23-2022 00:15-0400 Heart rate 82 /min MD Nisa Rojas Work Phone: [facility] 11-23-2022 00:15-0400 Respiratory rate 18 /min MD Nisa Rojas Work Phone: [facility] 11-23-2022 00:15-0400 SaO2% (BldA) [Mass fraction] 94 % MD Nisa Rojas Work Phone: [facility] 11-23-2022 00:15-0400 Systolic blood pressure 179 mm[Hg] MD Nisa Rojas Work Phone: [facility] 11-18-2022 17:31-0400 Diastolic blood pressure 96 mm[Hg] MD Nisa Rojas Work Phone: [facility] 11-18-2022 17:31-0400 Heart rate 67 /min MD Nisa Rojas Work Phone: [facility] 11-18-2022 17:31-0400 Respiratory rate 18 /min MD Nisa Rojas Work Phone: [facility] 11-18-2022 17:31-0400 SaO2% (BldA) [Mass fraction] 98 % MD Nisa Rojas Work Phone: [facility] 11-18-2022 17:31-0400 Systolic blood pressure 165 mm[Hg] MD Nisa Rojas Work Phone: [facility] 11-18-2022 16:30-0400 Body temperature 98 [degF] MD Nisa Rojas Work Phone: [facility] 11-18-2022 15:38-0400 Body height 175.26 cm MD Nisa Rojas Work Phone: [facility] 11-18-2022 15:38-0400 Body weight 136 kg MD Nisa Rojas Work Phone: [facility] 11-16-2022 20:57-0400 Body height 175.26 cm MD Nisa Rojas Work Phone: [facility] 11-16-2022 20:57-0400 Body temperature 98.2 [degF] MD Nisa Rojas Work Phone: [facility] 11-16-2022 20:57-0400 Body weight 136.4 kg MD Nisa Rojas Work Phone: [facility] 11-16-2022 20:57-0400 Diastolic blood pressure 84 mm[Hg] MD Nisa Rojas Work Phone: [facility] 11-16-2022 20:57-0400 Heart rate 79 /min MD Nisa Rojas Work Phone: [facility] 11-16-2022 20:57-0400 Respiratory rate 20 /min MD Nisa Rojas Work Phone: [facility] 11-16-2022 20:57-0400 SaO2% (BldA) [Mass fraction] 98 % MD Nisa Rojas Work Phone: [facility] 11-16-2022 20:57-0400 Systolic blood pressure 162 mm[Hg] MD Nisa Rojas Work Phone: [facility] 09-18-2022 16:12-0500 Body height 175.26 cm MD Nisa Rojas Work Phone: [facility] 09-18-2022 16:12-0500 Body temperature 98.8 [degF] MD Nisa Rojas Work Phone: [facility] 09-18-2022 16:12-0500 Body weight 131.54 kg MD Nisa Rojas Work Phone: [facility] 09-18-2022 16:12-0500 Diastolic blood pressure 78 mm[Hg] MD Nisa Rojas Work Phone: [facility] 09-18-2022 16:12-0500 Heart rate 77 /min MD Nisa Rojas Work Phone: [facility] 09-18-2022 16:12-0500 Respiratory rate 18 /min MD Nisa Rojas Work Phone: [facility] 09-18-2022 16:12-0500 SaO2% (BldA) [Mass fraction] 98 % MD Nisa Rojas Work Phone: [facility] 09-18-2022 16:12-0500 Systolic blood pressure 133 mm[Hg] MD Nisa Rojas Work Phone: [facility] 07-20-2022 19:53-0500 Heart rate 80 /min MD Nisa Rojas Work Phone: [facility] 07-20-2022 19:47-0500 Diastolic blood pressure 81 mm[Hg] MD Nisa Rojas Work Phone: [facility] 07-20-2022 19:47-0500 Respiratory rate 17 /min MD Nisa Rojas Work Phone: [facility] 07-20-2022 19:47-0500 SaO2% (BldA) [Mass fraction] 95 % MD Nisa Rojas Work Phone: [facility] 07-20-2022 19:47-0500 Systolic blood pressure 156 mm[Hg] MD Nisa Rojas Work Phone: [facility] 07-20-2022 18:58-0500 Body height 175.26 cm MD Nisa Rojas Work Phone: [facility] 07-20-2022 18:58-0500 Body temperature 98.8 [degF] MD Nisa Rojas Work Phone: [facility] 07-20-2022 18:58-0500 Body weight 136.98 kg MD Nisa Rojas Work Phone: [facility] 06-27-2022 14:19-0500 Body height 175.26 cm MD Nisa Rojas Work Phone: [facility] 06-27-2022 14:19-0500 Body temperature 97.6 [degF] MD Nisa Rojas Work Phone: [facility] 06-27-2022 14:19-0500 Body weight 140.61 kg MD Nisa Rojas Work Phone: [facility] 06-27-2022 14:19-0500 Diastolic blood pressure 97 mm[Hg] MD Nisa Rojas Work Phone: [facility] 06-27-2022 14:19-0500 Heart rate 65 /min MD Nisa Rojas Work Phone: [facility] 06-27-2022 14:19-0500 Respiratory rate 18 /min MD Nisa Rojas Work Phone: [facility] 06-27-2022 14:19-0500 SaO2% (BldA) [Mass fraction] 97 % MD Nisa Rojas Work Phone: [facility] 06-27-2022 14:19-0500 Systolic blood pressure 185 mm[Hg] MD Nisa Rojas Work Phone: [facility] 06-06-2022 09:12-0400 Body temperature 97.3 [degF] MD Nisa Rojas Work Phone: [facility] 06-06-2022 09:12-0400 Diastolic blood pressure 85 mm[Hg] MD Nisa Rojas Work Phone: [facility] 06-06-2022 09:12-0400 Heart rate 54 /min MD Nisa Rojas Work Phone: [facility] 06-06-2022 09:12-0400 Respiratory rate 18 /min MD Nisa Rojas Work Phone: [facility] 06-06-2022 09:12-0400 SaO2% (BldA) [Mass fraction] 98 % MD Nisa Rojas Work Phone: [facility] 06-06-2022 09:12-0400 Systolic blood pressure 148 mm[Hg] MD Nisa Rojas Work Phone: [facility] 05-10-2022 10:33-0400 Body height 175.26 cm MD Nisa Rojas Work Phone: [facility] 05-10-2022 10:33-0400 Body temperature 98.5 [degF] MD Nisa Rojas Work Phone: [facility] 05-10-2022 10:33-0400 Body weight 136.07 kg MD Nisa Rojas Work Phone: [facility] 05-10-2022 10:33-0400 Diastolic blood pressure 96 mm[Hg] MD Nisa Rojas Work Phone: [facility] 05-10-2022 10:33-0400 Heart rate 62 /min MD Nisa Rojas Work Phone: [facility] 05-10-2022 10:33-0400 Respiratory rate 18 /min MD Nisa Rojas Work Phone: [facility] 05-10-2022 10:33-0400 SaO2% (BldA) [Mass fraction] 97 % MD Nisa Rojas Work Phone: [facility] 05-10-2022 10:33-0400 Systolic blood pressure 162 mm[Hg] MD Nisa Rojas Work Phone: [facility] 04-24-2022 11:16-0400 Heart rate 52 /min MD Nisa Rojas Work Phone: [facility] 04-24-2022 10:22-0400 Body height 175.26 cm MD Nisa Rojas Work Phone: [facility] 04-24-2022 10:22-0400 Body temperature 98 [degF] MD Nisa Rojas Work Phone: [facility] 04-24-2022 10:22-0400 Body weight 142.88 kg MD Nisa Rojas Work Phone: [facility] 04-24-2022 10:22-0400 Diastolic blood pressure 90 mm[Hg] MD Nisa Rojas Work Phone: [facility] 04-24-2022 10:22-0400 Respiratory rate 20 /min MD Nisa Rojas Work Phone: [facility] 04-24-2022 10:22-0400 SaO2% (BldA) [Mass fraction] 98 % MD Nisa Rojas Work Phone: [facility] 04-24-2022 10:22-0400 Systolic blood pressure 157 mm[Hg] MD Nisa Rojas Work Phone: [facility] 03-28-2022 19:37-0400 Body temperature 98.1 [degF] MD Nisa Rojas Work Phone: [facility] 03-28-2022 19:37-0400 Diastolic blood pressure 86 mm[Hg] MD Nisa Rojas Work Phone: [facility] 03-28-2022 19:37-0400 Heart rate 60 /min MD Nisa Rojas Work Phone: [facility] 03-28-2022 19:37-0400 Respiratory rate 20 /min MD Nisa Rojas Work Phone: [facility] 03-28-2022 19:37-0400 SaO2% (BldA) [Mass fraction] 94 % MD Nisa Rojas Work Phone: [facility] 03-28-2022 19:37-0400 Systolic blood pressure 168 mm[Hg] MD Nisa Rojas Work Phone: [facility] 03-28-2022 19:36-0400 Body height 175.26 cm MD Nisa Rojas Work Phone: [facility] 03-28-2022 19:36-0400 Body weight 145.55 kg MD Nisa Rojas Work Phone: [facility] 03-25-2022 13:20-0400 Body height 175.26 cm MD Nisa Rojas Work Phone: [facility] 03-25-2022 13:20-0400 Body temperature 98.9 [degF] MD Nisa Rojas Work Phone: [facility] 03-25-2022 13:20-0400 Body weight 146.35 kg MD Nisa Rojas Work Phone: [facility] 03-25-2022 13:20-0400 Diastolic blood pressure 61 mm[Hg] MD Nisa Rojas Work Phone: [facility] 03-25-2022 13:20-0400 Heart rate 62 /min MD Nisa Rojas Work Phone: [facility] 03-25-2022 13:20-0400 Respiratory rate 20 /min MD Nisa Rojas Work Phone: [facility] 03-25-2022 13:20-0400 SaO2% (BldA) [Mass fraction] 97 % MD Nisa Rojas Work Phone: [facility] 03-25-2022 13:20-0400 Systolic blood pressure 91 mm[Hg] MD Nisa Rojas Work Phone: [facility] 07-11-2021 11:10-0500 Body height 172.72 cm Keith Amato Other [employer] Other 07-11-2021 11:10-0500 Body mass index (BMI) [Ratio] 57.77 kg/m2 Keith Amato Other [employer] Other 07-11-2021 11:10-0500 Body temperature 98.2 [degF] Keith Amato Other [employer] Other 07-11-2021 11:10-0500 Body weight 172.37 kg Keith Amato Other [employer] Other 07-11-2021 11:10-0500 Respiratory rate 16 /min Keith Amato Other [employer] Other 07-11-2021 11:10-0500 SaO2% (BldA) [Mass fraction] 98 % Keith Amato Other [employer] Other Encounters Encounter Date Encounter Type Care Provider Facility Start: 01-01-2025 End: 01-01-2025 Orders Only Nisa Rojas MD Work Phone: [facility] Comment on above: History of migraine headaches (Primary Dx); Relapsing remitting multiple sclerosis (CMS/HCC) Start: 01-01-2025 End: 01-01-2025 Emergency department patient visit Nisa Rojas Facility:[facility] Start: 01-01-2025 End: 01-01-2025 Nisa Rojas MD Work Phone: [facility]-Emergency Room Work Phone: Start: 12-30-2024 End: 12-30-2024 Emergency department patient visit Nisa Rojas MD Work Phone: [facility] Work Phone: Start: 12-30-2024 End: 12-30-2024 Nisa Rojas MD Work Phone: [facility]Emergency Room Work Phone: Start: 12-30-2024 End: 12-30-2024 Office outpatient visit 25 minutes Nisa Rojas MD Work Phone: [facility] Comment on above: Type 2 diabetes sima itus with diabetic neuropathy, with long- term current use of insulin (CMS/HCC) (Primary Dx); Intractable migraine without aura and with status migrainosus (CMS/HCC); Chronic neck pain; Vitamin D deficiency; Mixed hyperlipidemia (CMS/HCC) Start: 12-30-2024 End: 12-30-2024 ambulatory NISA ROJAS Not Available Start: 12-29-2024 End: 12-30-2024 Nisa Rojas MD Work Phone: [facility] Work Phone: Start: 12-29-2024 End: 12-30-2024 Emergency department patient visit Nisa Rojas MD Work Phone: [facility] Work Phone: Start: 12-29-2024 End: 12-29-2024 Nisa Rojas MD Work Phone: [facility]Emergency Room Work Phone: Start: 12-29-2024 End: 12-29-2024 Emergency department patient visit Nisa Rojas MD Work Phone: [facility] Work Phone: Start: 12-28-2024 End: 12-28-2024 Nisa Rojas MD Work Phone: [facility]Emergency Room Work Phone: Start: 12-28-2024 End: 12-28-2024 Emergency department patient visit Nisa Rojas MD Work Phone: [facility] Work Phone: Start: 12-28-2024 End: 12-28-2024 Office outpatient visit 25 minutes Nisa Rojas MD Work Phone: [facility] Comment on above: Type 2 diabetes sima itus with diabetic neuropathy, with long- term current use of insulin (CMS/[facility]) (Primary Dx); History of migraine headaches; Essential hypertension (CMS/HCC); Temporal pain Start: 12-28-2024 ambulatory NISA ROJAS Not Avail able Start: 12-27-2024 End: 12-28-2024 Nisa Rojas MD Work Phone: [facility]gency Room Work Phone: Start: 12-27-2024 End: 12-28-2024 Emergency department patient visit Nisa Rojas MD Work Phone: [facility] Work Phone: Start: 12-27-2024 End: 12-27-2024 Orders Only Nisa Rojas MD Work Phone: [facility] Comment on above: Spinal stenosis in ervical region Start: 12-27-2024 End: 12-27-2024 Nisa Rojas MD Work Phone: [facility] Work Phone: Start: 12-27-2024 End: 12-27-2024 Emergency department patient visit Nisa Rojas MD Work Phone: [facility] Work Phone: Start: 12-26-2024 End: 12-27-2024 Nisa Rojas MD Work Phone: [facility] Work Phone: Start: 12-26-2024 End: 12-27-2024 Emergency department patient visit Nisa Rojas MD Work Phone: [facility] Work Phone: Start: 12-26-2024 End: 12-26-2024 Emergency department patient visit Nisa Rojas MD Work Phone: [facility] Work Phone: Start: 12-26-2024 End: 12-26-2024 Nisa Rojas MD Work Phone: [facility]gency [facility] Work Phone: Start: 12-25-2024 End: 12-26-2024 Nisa Rojas MD Work Phone: [facility] Work Phone: Start: 12-25-2024 End: 12-26-2024 Emergency department patient visit Nisa Rojas MD Work Phone: [facility] Work Phone: Start: 12-25-2024 End: 12-25-2024 Nisa Rojas MD Work Phone: [facility] Work Phone: Start: 12-25-2024 End: 12-25-2024 Emergency department patient visit Nisa Rojas MD Work Phone: [facility] Work Phone: Start: 12-24-2024 End: 12-24-2024 Nisa Rojas MD Work Phone: [facility] Work Phone: Start: 12-24-2024 End: 12-24-2024 Emergency department patient visit Nisa Rojas MD Work Phone: [facility] Work Phone: Start: 12-24-2024 End: 12-24-2024 ambulatory NISA ROJAS Not Available Start: 12-23-2024 End: 12-24-2024 Nisa Rojas MD Work Phone: [facility] Work Phone: Start: 12-23-2024 End: 12-24-2024 Emergency department patient visit Nisa Rojas MD Work Phone: [facility] Work Phone: Start: 12-23-2024 Nisa Rojas MD Work Phone: [facility]-Infusion Therapy - O/P Work Phone: Start: 12-23-2024 ambulatory Augustina Lesly Facility :[facility] Start: 12-22-2024 End: 12-22-2024 Nisa Rojas MD Work Phone: [facility]gency [facility] Work Phone: Start: 12-22-2024 End: 12-22-2024 Emergency department patient visit Clayton Garber Facility:[facility] Start: 12-21-2024 End: 12-21-2024 Nisa Rojas MD Work Phone: [facility] Work Phone: Start: 12-21-2024 End: 12-21-2024 Emergency department patient visit Nisa Rojas Facility:[facility] Start: 12-21-2024 End: 12-21-2024 Nisa Rojas MD Work Phone: [facility] Work Phone: Start: 12-21-2024 End: 12-21-2024 Emergency department patient visit Nisa Rojas Facility:[facility] Start: 12-20-2024 End: 12-20-2024 Nisa Rojas MD Work Phone: [facility] Work Phone: Start: 12-20-2024 End: 12-20-2024 Emergency department patient visit Conrad Melissa Facility:[facility] Start: 12-19-2024 End: 12-19-2024 Nisa Rojas MD Work Phone: [facility]Emergency Room Work Phone: Start: 12-19-2024 End: 12-19-2024 Emergency department patient visit Jessica Clark Facility:[facility] Start: 12-18-2024 End: 12-19-2024 Nisa Rojas MD Work Phone: [facility]gency [facility] Work Phone: Start: 12-18-2024 End: 12-19-2024 Emergency department patient visit Keith Handley Jr Facility:[facility] Start: 12-17-2024 End: 12-17-2024 Nisa Rojas MD Work Phone: [facility]gency [facility] Work Phone: Start: 12-17-2024 End: 12-17-2024 Emergency department patient visit Clayton Garber Facility:[facility] Start: 12-16-2024 End: 12-16-2024 Nisa Rojas MD Work Phone: [facility]gency [facility] Work Phone: Start: 12-16-2024 End: 12-16-2024 Emergency department patient visit Nisa Rojas Facility:[facility] Start: 12-09-2024 End: 12-09-2024 Nisa Rojas MD Work Phone: [facility]Emergency Room Work Phone: Start: 12-09-2024 End: 12-09-2024 Emergency department patient visit Nisa Rojas MD Work Phone: [facility]Emergency Room Work Phone: Start: 12-09-2024 Registered Recurring Nisa hoang MD Work Phone: [facility]-Infusion Therapy - O/P Work Phone: Start: 12-08-2024 End: 12-08-2024 Nisa Rojas MD Work Phone: [facility]Emergency Room Work Phone: Start: 12-08-2024 End: 12-08-2024 Emergency department patient visit Nisa Rojas MD Work Phone: [facility]Emergency Room Work Phone: Start: 12-08-2024 End: 12-08-2024 Telephone encounter Eve MARTINES [facility] Comment on above: Appt w/Dr. Sweet-Ref . from Sherwin Rosa Start: 12-08-2024 End: 12-08-2024 Office outpatient visit 25 minutes Nisa Rojas MD Work Phone: [facility] Comment on above: Rash (Primary Dx); Candidiasis, intertrigo; Skin breakdown; Skin excoriation; Spinal stenosis in cervical region Start: 12-08-2024 End: 12-08-2024 ambulatory NISA ROJAS Not Available Start: 12-07-2024 End: 12-07-2024 Nisa Rojas MD Work Phone: [facility]Emergency Room Work Phone: Start: 12-07-2024 End: 12-07-2024 Emergency department patient visit Nisa Rojas MD Work Phone: [facility]Emergency Room Work Phone: Start: 12-05-2024 End: 12-05-2024 Nisa Rojas MD Work Phone: [facility]Emergency Room Work Phone: Start: 12-05-2024 End: 12-05-2024 Emergency department patient visit Nisa Rojas MD Work Phone: [facility]Emergency Room Work Phone: Start: 12-02-2024 End: 12-02-2024 Emergency department patient visit Nisa Rojas MD Work Phone: [facility]Emergency Room Work Phone: Start: 12-02-2024 End: 12-02-2024 Nisa Rojas MD Work Phone: [facility]Emergency Room Work Phone: Start: 12-02-2024 End: 12-02-2024 Bamboo flowsheet Donato Rosa PA Work Phone: [facility] Start: 12-02-2024 End: 12-02-2024 Bamboo flowsheet Donato Rosa PA Work Phone: [facility] Start: 12-02-2024 End: 12-02-2024 Office outpatient visit 25 minutes Donato Rosa PA Work Phone: [facility] Comment on above: Acute pain of right knee (Primary Dx); Arthritis of right knee; Knee instability, right; Loose body of right knee Start: 12-02-2024 End: 12-02-2024 ambulatory DONATO ROSA Not Available Start: 11-30-2024 End: 11-30-2024 Nisa Rojas MD Work Phone: [facility]Emergency Room Work Phone: Start: 11-30-2024 End: 11-30-2024 Emergency department patient visit Nisa Rojas MD Work Phone: [facility]Emergency Room Work Phone: Start: 11-29-2024 End: 11-29-2024 Patient encounter procedure Nisa Rojas MD Work Phone: [facility]Lab [place] Work Phone: Start: 11-29-2024 End: 11-29-2024 Nisa Rojas MD Work Phone: [facility] [place] Work Phone: Start: 11-29-2024 End: 11-29-2024 ambulatory Nisa Rojas MD Work Phone: [facility] Work Phone: Start: 11-29-2024 End: 12-01-2024 External Result Encounter Srikanth Hernandez NP Work Phone: [facility] Unsolicited Start: 11-29-2024 End: 12-01-2024 External Result Encounter Srikanth Hernandez [employer] Work Phone: [facility] Unsolicited Start: 11-29-2024 End: 11-29-2024 Office outpatient visit 25 minutes Nisa Rojas MD Work Phone: [facility] Comment on above: Type 2 diabetes sima itus with diabetic neuropathy, with long- term current use of insulin (CMS/HCC) (Primary Dx); [...] cervical region; Flushing; History of migraine headaches Start: 11-29-2024 End: 11-29-2024 ambulatory NISA ROJAS Not Available Start: 11-28-2024 End: 11-28-2024 Nisa Rojas MD Work Phone: [facility]Emergency Room Work Phone: Start: 11-28-2024 End: 11-28-2024 Emergency department patient visit Nisa Rojas MD Work Phone: [facility] Work Phone: Start: 11-27-2024 End: 11-27-2024 Emergency department patient visit Nisa Rojas MD Work Phone: [facility] Work Phone: Start: 11-27-2024 End: 11-27-2024 Nisa Rojas MD Work Phone: [facility] Work Phone: Start: 11-27-2024 End: 11-27-2024 Nisa Rojas MD Work Phone: [facility] Work Phone: Start: 11-27-2024 End: 11-27-2024 Emergency department patient visit Nisa Rojas MD Work Phone: [facility] Work Phone: Start: 11-24-2024 End: 11-24-2024 Nisa Rojas MD Work Phone: [facility] Work Phone: Start: 11-24-2024 End: 11-24-2024 Emergency department patient visit Nisa Rojas MD Work Phone: [facility] Work Phone: Start: 11-24-2024 End: 11-24-2024 Nisa Rojas MD Work Phone: [facility] Work Phone: Start: 11-24-2024 End: 11-24-2024 Emergency department patient visit Nisa Rojas MD Work Phone: [facility] Work Phone: Start: 11-21-2024 End: 11-21-2024 Nisa Rojas MD Work Phone: [facility] Work Phone: Start: 11-21-2024 End: 11-21-2024 Emergency department patient visit Nisa Rojas MD Work Phone: [facility] Work Phone: Start: 11-21-2024 End: 11-21-2024 Nisa Rojas MD Work Phone: [facility] Work Phone: Start: 11-21-2024 End: 11-21-2024 Emergency department patient visit Nisa Rojas MD Work Phone: [facility] Work Phone: Start: 11-20-2024 End: 11-20-2024 Emergency department patient visit Nisa Rojas MD Work Phone: [facility] Work Phone: Start: 11-20-2024 End: 11-20-2024 Nisa Rojas MD Work Phone: [facility] Work Phone: Start: 11-18-2024 End: 11-19-2024 Nisa Rojas MD Work Phone: [facility] Work Phone: Start: 11-18-2024 End: 11-19-2024 Emergency department patient visit Nisa Rojas MD Work Phone: [facility] Work Phone: Start: 11-18-2024 End: 11-18-2024 Orders Only Nisa Rojas MD Work Phone: [facility] Comment on above: Spinal stenosis in c ervical region Start: 11-17-2024 End: 11-17-2024 Nisa Rojas MD Work Phone: [facility] Work Phone: Start: 11-17-2024 End: 11-17-2024 Emergency department patient visit Nisa Rojas MD Work Phone: [facility] Work Phone: Start: 11-14-2024 End: 11-14-2024 Nisa Rojas MD Work Phone: [facility] Work Phone: Start: 11-14-2024 End: 11-14-2024 Emergency department patient visit Nisa Rojas MD Work Phone: [facility] Work Phone: Start: 11-13-2024 End: 11-13-2024 Nisa Rojas MD Work Phone: [facility] Work Phone: Start: 11-13-2024 End: 11-13-2024 Emergency department patient visit Nisa Rojas MD Work Phone: [facility] Work Phone: Start: 11-09-2024 End: 11-09-2024 Nisa Rojas MD Work Phone: [facility] Work Phone: Start: 11-09-2024 End: 11-09-2024 Emergency department patient visit Nisa Rojas MD Work Phone: [facility] Work Phone: Start: 11-05-2024 End: 11-08-2024 Telephone encounter Donato GARCÍA Work Phone: [facility] Comment on above: fell again Start: 11-05-2024 End: 11-05-2024 Nisa Rojas MD Work Phone: [facility] Work Phone: Start: 11-05-2024 End: 11-05-2024 Emergency department patient visit Nisa Rojas MD Work Phone: [facility] Work Phone: Start: 11-04-2024 End: 11-04-2024 Nisa Rojas MD Work Phone: [facility] Work Phone: Start: 11-04-2024 End: 11-04-2024 Emergency department patient visit Nisa Rojas MD Work Phone: [facility] Work Phone: Start: 11-04-2024 End: 11-04-2024 Patient encounter procedure Nisa Rojas MD Work Phone: [facility]Nuc [facility] Work Phone: Start: 11-04-2024 End: 11-04-2024 Nisa Rojas MD Work Phone: [facility] Work Phone: Start: 11-04-2024 End: 11-04-2024 ambulatory Nisa Rojas MD Work Phone: [facility] Work Phone: Start: 11-03-2024 End: 11-03-2024 Nisa Rojas MD Work Phone: [facility] Work Phone: Start: 11-03-2024 End: 11-03-2024 Emergency department patient visit Nisa Rojas MD Work Phone: [facility] Work Phone: Start: 10-28-2024 End: 10-28-[address] LPN [facility] Comment on above: fell last night hurt ing both knees and right arm Start: 10-18-2024 End: 10-18-2024 Office outpatient visit 15 minutes Julissa Ashley NP Work Phone: [facility] Comment on above: Other migraine witho ut status migrainosus, not intractable (CMS/HCC) (Primary Dx) Start: 10-18-2024 End: 10-18-2024 ambulatory JULISSA Patty DION Not Available Start: 10-13-2024 End: 10-13-2024 Patient encounter procedure Nisa Rojas MD Work Phone: [facility] [place] Work Phone: Start: 10-13-2024 End: 10-13-2024 ambulatory Nisa Rojas MD Work Phone: [facility] Work Phone: Start: 10-12-2024 End: 10-12-2024 ambulatory NISA ROJAS Not Available Start: 10-10-2024 End: 10-10-2024 Nisa Rojas MD Work Phone: [facility] Work Phone: Start: 10-10-2024 End: 10-10-2024 Emergency department patient visit Nisa Rojas MD Work Phone: [facility] Work Phone: Start: 09-22-2024 End: 09-22-2024 Office outpatient visit 25 minutes Adelita Gutierres DO Work Phone: [facility] Comment on above: Relapsing remitting multiple sclerosis (CMS/HCC) (Primary Dx); Migraine without aura and without status migrainosus, not intractable (CMS/HCC) Start: 09-22-2024 End: 09-22-2024 ambulatory ADELITA GUTIERRES Not Available Start: 09-22-2024 End: 09-22-2024 Bamboo flowsheet Tommieer Bhavik DO Work Phone: [facility] Start: 09-22-2024 End: 09-22-2024 Bamboo flowsheet Tommieer Bhavik DO Work Phone: [facility] Start: 09-14-2024 End: 09-16-2024 Telephone encounter Trinity Siddiqui LPN [facility] Comment on above: med refills Start: 09-13-2024 End: 09-13-2024 Emergency department patient visit Nisa Rojas MD Work Phone: [facility] Work Phone: Start: 09-06-2024 End: 09-06-2024 Emergency department patient visit Nisa Rojas MD Work Phone: [facility] Work Phone: Start: 09-03-2024 End: 09-03-2024 Emergency department patient visit Nisa Rojas MD Work Phone: [facility] Work Phone: Start: 09-02-2024 End: 09-02-2024 Bamboo flowsheet Donato Rosa PA Work Phone: [facility] Start: 09-02-2024 End: 09-02-2024 Bamboo flowsheet Donato Rosa PA Work Phone: [facility] Start: 09-02-2024 End: 09-02-2024 Office outpatient visit 25 minutes Donato GARCÍA Work Phone: [facility] Comment on above: Acute pain of right knee (Primary Dx); Arthritis of right knee Start: 09-02-2024 End: 09-02-2024 ambulatory DONATO ROSA Not Available Start: 08-31-2024 End: 08-31-2024 Office outpatient visit 40 minutes Nisa Rojas MD Work Phone: [facility] Comment on above: Type 2 diabetes sima itus with diabetic neuropathy, with long- term current use of insulin (CMS/HCC) (Primary Dx); Essential hypertension (CMS/HCC); Mixed hyperlipidemia (CMS/HCC); Hyperparathyroidism, unspecified (CMS/HCC); Chronic bilateral low back pain without sciatica; Psoriatic arthritis (CMS/HCC); Multiple sclerosis (CMS/HCC); Bipolar 1 disorder, mixed (CMS/HCC); Generalized anxiety disorder (CMS/HCC); Morbid obesity (CMS/HCC); Body mass index (BMI) 45.0-49.9, adult (CMS/HCC); Acute pain of right knee; Spinal stenosis in cervical region; Seborrheic dermatitis; Acute cough Start: 08-31-2024 End: 08-31-2024 ambulatory NISA ROJAS Not Available Start: 08-29-2024 End: 08-29-2024 Emergency department patient visit Nisa Rojas MD Work Phone: [facility] Work Phone: Start: 08-28-2024 End: 08-28-2024 Emergency department patient visit Nisa Rojas MD Work Phone: [facility] Work Phone: Start: 08-21-2024 End: 08-21-2024 Emergency department patient visit Nisa Rojas MD Work Phone: [facility] Work Phone: Start: 08-17-2024 End: 08-17-2024 Emergency department patient visit Nisa Rojas MD Work Phone: [facility]Emergency Room Work Phone: Start: 08-12-2024 End: 08-12-[address] PAN TANK WORKER [facility] Comment on above: fell this am Start: 08-10-2024 End: 08-11-[address] PAN TANK WORKER [facility] Comment on above: Lab Orders Start: 08-08-2024 End: 08-08-2024 Emergency department patient visit Nisa Rojas MD Work Phone: [facility] Work Phone: Start: 07-26-2024 End: 07-27-2024 Emergency department patient visit Nisa Rojas MD Work Phone: [facility] Work Phone: Start: 07-24-2024 End: 07-24-2024 Emergency department patient visit Nisa Rojas MD Work Phone: [facility] Work Phone: Start: 07-23-2024 End: 07-23-2024 Emergency department patient visit Nisa Rojas MD Work Phone: [facility] Work Phone: Start: 07-20-2024 End: 07-20-2024 Bamboo flowsheet Nisa Rojas MD Work Phone: [facility] Start: 07-20-2024 End: 07-20-2024 Bamboo flowsheet Nisa Rojas MD Work Phone: [facility] Start: 07-20-2024 End: 07-21-2024 Orders Only iNsa Rojas MD Work Phone: [facility] External Department Unsolicited Start: 07-20-2024 End: 07-20-2024 Departed Referred Nisa Rojas MD Work Phone: [facility]Digestive Health Work Phone: Start: 07-20-2024 End: 07-20-2024 Office outpatient visit 25 minutes Nisa Rojas MD Work Phone: [facility] Comment on above: Type 2 diabetes sima itus with diabetic neuropathy, with long- term current use of insulin (CMS/HCC) (Primary Dx); History of migraine headaches; Chronic bilateral low back pain without sciatica; Cellulitis of hand, right; Generalized anxiety disorder (CMS/HCC); Bipolar 1 disorder, mixed (CMS/HCC); Primary osteoarthritis involving multiple joints; Polyneuropathy associated with underlying disease (CMS/HCC); MS (multiple sclerosis) (CMS/HCC) Start: 07-20-2024 End: 07-20-2024 ambulatory Nisa Rojas MD Work Phone: [facility] Work Phone: Start: 07-19-2024 End: 07-20-2024 Emergency department patient visit Nisa Rojas MD Work Phone: [facility]gency [facility] Work Phone: Start: 07-19-2024 End: 07-19-2024 Patient encounter procedure Nisa Rojas MD Work Phone: [facility] Work Phone: Start: 07-18-2024 End: 07-18-2024 Emergency department patient visit Nisa Rojas MD Work Phone: [facility] Work Phone: Start: 07-17-2024 End: 07-17-2024 Emergency department patient visit Nisa Rojas MD Work Phone: [facility] Work Phone: Start: 07-17-2024 End: 07-17-2024 Emergency department patient visit Nisa Rojas MD Work Phone: [facility] Work Phone: Start: 07-16-2024 End: 07-16-2024 Patient encounter procedure Nisa Rojas MD Work Phone: [facility] [place] Work Phone: Start: 07-16-2024 End: 07-16-2024 ambulatory Yodit Jolly Facility:[facility] Start: 07-15-2024 End: 07-15-2024 Emergency department patient visit Nisa Rojas MD Work Phone: [facility] Work Phone: Start: 07-15-2024 End: 07-15-2024 Emergency department patient visit Nisa Rojas MD Work Phone: [facility] Work Phone: Start: 07-14-2024 End: 07-14-2024 Emergency department patient visit Nsia Rojas MD Work Phone: [facility] Work Phone: Start: 07-13-2024 End: 07-13-2024 Emergency department patient visit Nisa Rojas MD Work Phone: [facility] Work Phone: Start: 07-12-2024 End: 07-12-2024 Emergency department patient visit Nisa Rojas MD Work Phone: [facility] Work Phone: Start: 07-12-2024 End: 07-12-2024 Dennis Montgomery MA [facility] Comment on above: Chronic right-sided low back pain without sciatica Start: 07-12-2024 End: 07-12-2024 Emergency department patient visit Nisa Rojas MD Work Phone: [facility] Work Phone: Start: 07-10-2024 End: 07-10-2024 Emergency department patient visit Nisa Rojas MD Work Phone: [facility] Work Phone: Start: 07-09-2024 End: 07-09-2024 Emergency department patient visit Nisa Rojas MD Work Phone: [facility] Work Phone: Start: 07-06-2024 End: 07-06-2024 Emergency department patient visit Nisa Rojas MD Work Phone: [facility] Work Phone: Start: 06-29-2024 End: 06-29-2024 ambulatory NISA ROJAS Not Available Start: 06-29-2024 End: 06-29-2024 Office outpatient visit 25 minutes Nisa Rojas MD Work Phone: [facility] Comment on above: Acute pain of right knee (Primary Dx); Cervicogenic headache; Chronic neck pain; History of migraine headaches; Myalgia; Essential hypertension (CMS/HCC); Primary osteoarthritis involving multiple joints; Stage 1 chronic kidney disease Start: 06-25-2024 End: 06-25-2024 Emergency department patient visit Nisa Rojas MD Work Phone: [facility] Work Phone: Start: 06-24-2024 End: 06-24-2024 Emergency department patient visit Nisa Rojas MD Work Phone: [facility] Work Phone: Start: 06-21-2024 End: 06-22-2024 Refill Nisa Rojas MD Work Phone: [facility] Comment on above: Generalized anxiety disorder (CMS/HCC) Start: 06-18-2024 End: 06-18-2024 Emergency department patient visit Nisa Rojas MD Work Phone: [facility] Work Phone: Start: 06-18-2024 End: 06-18-2024 Emergency department patient visit Nisa Rojas MD Work Phone: [facility] Work Phone: Start: 06-17-2024 End: 06-17-2024 Emergency department patient visit Nisa Rojas MD Work Phone: [facility] Work Phone: Start: 06-16-2024 End: 06-16-2024 Refill Prachi Rojas MA [facility] Comment on above: Chronic right-sided low back pain without sciatica Start: 06-13-2024 End: 06-13-2024 Emergency department patient visit Nisa Rojas MD Work Phone: [facility] Work Phone: Start: 06-10-2024 Registered Recurring Nisa hoang MD Work Phone: [facility]-Infusion Therapy - O/P Work Phone: Start: 06-03-2024 End: 06-03-2024 Bamboo flowsheet Yodit Jolly CUT OFF OPERATOR SCORER Work Phone: [facility] Start: 06-03-2024 End: 06-03-2024 Bamboo flowsheet Yodit Jolly CUT OFF OPERATOR SCORER Work Phone: [facility] Start: 06-03-2024 End: 06-03-2024 ambulatory YODIT JOLLY Not Available Start: 06-03-2024 End: 06-03-2024 Office outpatient visit 25 minutes Yodit Jolly CUT OFF OPERATOR SCORER Work Phone: [facility] Comment on above: Relapsing remitting multiple sclerosis (CMS/HCC) (Primary Dx); Ataxia; Encounter for medication monitoring; Bilateral occipital neuralgia; Central vestibular vertigo; Bipolar 1 disorder, mixed (CMS/HCC); Restless legs syndrome (RLS) Start: 05-29-2024 End: 05-29-2024 Emergency department patient visit MD Nisa Rojas Work Phone: [facility]-Emergency Room Work Phone: Start: 05-28-2024 End: 05-28-2024 Emergency department patient visit MD Nisa Rojas Work Phone: [facility]Emergency Room Work Phone: Start: 05-28-2024 End: 05-28-2024 ambulatory BRADY MARY Not Available Start: 05-28-2024 End: 05-28-2024 Patient encounter procedure Brady Mary DPM Work Phone: [facility] Comment on above: Onychomycosis (Prima ry Dx); Controlled type 1 diabetes mellitus with diabetic polyneuropathy (CMS/HCC); Multiple sclerosis (CMS/HCC); Neuropathy; Pain in both feet Start: 05-25-2024 End: 05-25-2024 Office outpatient visit 25 minutes Nisa Rojas MD Work Phone: [facility] Comment on above: Type 2 diabetes sima itus with diabetic neuropathy, with long- term current use of insulin (CMS/HCC) (Primary Dx); Essential hypertension (CMS/HCC); Pure hypercholesterolemia (CMS/HCC); Hyperparathyroidism, unspecified (CMS/HCC); Bipolar 1 disorder, mixed (CMS/HCC); MS (multiple sclerosis) (CMS/HCC); Chronic bilateral low back pain without sciatica; Seizure disorder (CMS/HCC); Polyneuropathy associated with underlying disease (CMS/HCC); Vitamin B12 deficiency; Vitamin D deficiency; Diarrhea, unspecified type; Cervicogenic headache; Morbid obesity (CMS/HCC); BMI 45.0-49.9, adult (CMS/HCC) Start: 05-25-2024 End: 05-25-2024 ambulatory NISA ROJAS Not Available Start: 05-21-2024 End: 05-21-2024 Patient encounter procedure MD Nisa Rojas Work Phone: [facility]Lab [facility] [place] Work Phone: Start: 05-21-2024 End: 05-21-2024 ambulatory MD Nisa Rojas Work Phone: [facility] Work Phone: Start: 05-21-2024 End: 05-22-2024 External Result Encounter Nisa Rojas MD Work Phone: [facility] Unsolicited Start: 05-21-2024 End: 05-22-2024 External Result Encounter Nisa Rojas MD Work Phone: [facility] External Department Unsolicited Start: 05-18-2024 End: 05-18-2024 Telephone encounter Noa Hansen LPN [facility] Comment on above: Right Knee pain Start: 05-15-2024 End: 05-15-2024 Emergency department patient visit MD Nisa Rojas Work Phone: [facility]Emergency Room Work Phone: Start: 05-06-2024 End: 05-06-2024 Office outpatient visit 10 minutes Yuerong Laura CUT OFF OPERATOR SCORER Work Phone: [facility] Comment on above: Localized osteoarthr itis of right knee (Primary Dx) Start: 05-06-2024 End: 05-06-2024 ambulatory YUERONG LAURA Not Available Start: 05-05-2024 End: 05-05-2024 Refill Noa Hansen LPN [facility] Comment on above: Polyneuropathy assoc iated with underlying disease ([facility]) Start: 05-05-2024 End: 05-05-2024 Emergency department patient visit MD Nisa Rojas Work Phone: [facility]Emergency Room Work Phone: Start: 05-04-2024 End: 05-04-2024 Telephone encounter Yodit Jolly CUT OFF OPERATOR SCORER Work Phone: [facility] Start: 05-04-2024 End: 05-04-2024 Emergency department patient visit MD Nisa Rojas Work Phone: [facility]Emergency Room Work Phone: Start: 05-04-2024 End: 05-04-2024 Office outpatient visit 25 minutes Yodit Jolly CUT OFF OPERATOR SCORER Work Phone: [facility] Comment on above: Ataxia (Primary Dx); Relapsing remitting multiple sclerosis (CMS/HCC); Central vestibular vertigo; Bipolar 1 disorder, mixed (CMS/HCC); Restless legs syndrome (RLS) Start: 05-04-2024 End: 05-04-2024 ambulatory YODIT JOLLY Not Available Start: 04-29-2024 End: 04-29-2024 Emergency department patient visit MD Nisa Rojas Work Phone: [facility] Work Phone: Start: 04-27-2024 End: 04-27-2024 Office outpatient visit 25 minutes Summer M Workman PA Work Phone: [facility] Comment on above: Cervicogenic headach e (Primary Dx); Upper respiratory tract infection, unspecified type; Acute pain of right knee Start: 04-27-2024 End: 04-27-2024 ambulatory SUMMER M WORKMAN Not Available Start: 04-19-2024 End: 04-19-2024 Emergency department patient visit MD Nisa Rojas Work Phone: [facility] Work Phone: Start: 04-17-2024 End: 04-17-2024 Emergency department patient visit MD Nisa Rojas Work Phone: [facility]Emergency [facility] Work Phone: Start: 04-16-2024 End: 04-16-2024 Emergency department patient visit MD Nisa Rojas Work Phone: [facility] Work Phone: Start: 04-06-2024 End: 04-06-2024 Emergency department patient visit MD Nisa Rojas Work Phone: [facility] Work Phone: Start: 04-01-2024 End: 04-01-2024 Emergency department patient visit MD Nisa Rojas Work Phone: [facility]Emergency [facility] Work Phone: Start: 03-17-2024 End: 03-17-2024 Emergency department patient visit MD Nisa Rojas Work Phone: [facility]Emergency [facility] Work Phone: Start: 03-15-2024 End: 03-15-2024 Emergency department patient visit MD Nisa Rojas Work Phone: [facility]Emergency Room Work Phone: Start: 03-12-2024 End: 03-12-2024 ambulatory ADELA HUTTON Not Available Start: 03-11-2024 End: 03-11-2024 Emergency department patient visit MD Nisa Rojas Work Phone: [facility]Emergency Room Work Phone: Start: 03-10-2024 End: 03-10-2024 Emergency department patient visit MD Nisa Rojas Work Phone: [facility]Emergency Room Work Phone: Start: 03-10-2024 End: 03-10-2024 Emergency department patient visit MD Nisa Rojas Work Phone: [facility]Emergency Room Work Phone: Start: 02-25-2024 End: 02-25-2024 Patient encounter procedure MD Nisa Rojas Work Phone: [facility] [place] Work Phone: Start: 02-25-2024 End: 02-25-2024 ambulatory MD Nisa Rojas Work Phone: [facility] Work Phone: Start: 02-25-2024 End: 02-25-2024 ambulatory ADELA HUTTON Not Available Start: 01-06-2024 End: 01-06-2024 ambulatory JUANITO BOLANOS Not Available Start: 01-01-2024 End: 01-01-2024 Emergency department patient visit MD Nisa Rojas Work Phone: [facility]Emergency Room Work Phone: Start: 12-26-2023 End: 12-26-2023 Emergency department patient visit MD Nisa Rojas Work Phone: [facility]Emergency Room Work Phone: Start: 12-13-2023 End: 12-13-2023 Emergency department patient visit MD Nisa Rojas Work Phone: [facility]Emergency Room Work Phone: Start: 12-04-2023 Registered Recurring MD Nisa Rojas Work Phone: [facility]-Infusion Therapy - O/P Work Phone: Start: 11-24-2023 End: 11-24-2023 Emergency department patient visit MD Nisa Rojas Work Phone: [facility]Emergency Room Work Phone: Start: 10-04-2023 End: 10-04-2023 Emergency department patient visit MD Nisa Rojas Work Phone: [facility]Emergency Room Work Phone: Start: 09-15-2023 Refill [facility] Comment on above: Bilateral low back p ain without sciatica, unspecified chronicity; Acute right-sided low back pain without sciatica Start: 09-13-2023 End: 09-13-2023 Emergency department patient visit MD Nisa Rojas Work Phone: [facility]Emergency Room Work Phone: Start: 09-10-2023 End: 09-10-2023 Emergency department patient visit MD Nisa Rojas Work Phone: [facility]Emergency Room Work Phone: Start: 09-08-2023 [facility] Work Phone: [facility] Start: 08-22-2023 End: 08-22-2023 Emergency department patient visit MD Nisa Rojas Work Phone: [facility]Emergency Room Work Phone: Start: 08-14-2023 End: 08-14-2023 Emergency department patient visit MD Nisa Rojas Work Phone: [facility]Emergency Room Work Phone: Start: 08-11-2023 End: 08-11-2023 Emergency department patient visit MD Nisa Rojas Work Phone: [facility]Emergency Room Work Phone: Start: 07-24-2023 End: 07-24-2023 Emergency department patient visit MD Nisa Rojas Work Phone: [facility]Emergency Room Work Phone: Start: 07-23-2023 End: 07-23-2023 Emergency department patient visit MD Nisa Rojas Work Phone: [facility]Emergency Room Work Phone: Start: 07-18-2023 End: 07-18-2023 Emergency department patient visit MD Nisa Rojas Work Phone: [facility]Emergency Room Work Phone: Start: 07-15-2023 End: 07-15-2023 Emergency department patient visit MD Nisa Rojas Work Phone: [facility]Emergency Room Work Phone: Start: 07-09-2023 End: 07-09-2023 Emergency department patient visit MD Nisa Rojas Work Phone: [facility]-Emergency Room Work Phone: Start: 06-28-2023 End: 06-28-2023 Emergency department patient visit MD Nisa Rojas Work Phone: [facility]-Emergency Room Work Phone: Start: 06-28-2023 End: 06-28-2023 Emergency department patient visit MD Nisa Rojas Work Phone: [facility]-Emergency Room Work Phone: Start: 06-27-2023 End: 06-27-2023 Emergency department patient visit MD Nisa Rojas Work Phone: [facility]-Emergency Room Work Phone: Start: 06-23-2023 End: 06-23-2023 Emergency department patient visit MD Nisa Rojas Work Phone: [facility]-Emergency Room Work Phone: Start: 06-05-2023 Registered Recurring MD Nisa Rojas Work Phone: [facility] Ctr-Infusion Therapy - O/P Work Phone: Start: 05-25-2023 End: 05-25-2023 Emergency department patient visit MD Nisa Rojas Work Phone: [facility]-Emergency Room Work Phone: Start: 03-25-2023 End: 03-25-2023 Emergency department patient visit MD Nisa Rojas Work Phone: [facility]-Emergency Room Work Phone: Start: 03-23-2023 End: 03-23-2023 Evaluation and management of inpatient MD Nisa Rojas Work Phone: [facility] C[facility]-3 [place] [facility]urg Work Phone: Start: 03-22-2023 End: 03-22-2023 Emergency department patient visit MD Nisa Rojas Work Phone: [facility]-Emergency Room Work Phone: Start: 03-22-2023 End: 03-22-2023 Emergency department patient visit MD Nisa Rojas Work Phone: [facility]-Emergency Room Work Phone: Start: 03-20-2023 End: 03-20-2023 Emergency department patient visit MD Nisa Rojas Work Phone: [facility]-Emergency Room Work Phone: Start: 03-11-[address] Nisa Shabazz [facility] Facility:[id number] Start: 03-11-2023 End: 03-11-2023 Evaluation and management of inpatient MD Nisa Rojas Work Phone: [facility] C[facility]-4 [place] Progressive Work Phone: Start: 03-11-2023 End: 03-11-2023 observation encounter MD Nisa Rojas Work Phone: [facility] Work Phone: Start: 03-10-2023 End: 03-10-2023 Emergency department patient visit MD Nisa Rojas Work Phone: [facility]-Emergency Room Work Phone: Start: 03-10-2023 End: 03-10-2023 Emergency department patient visit MD Nisa Rojas Work Phone: [facility]-Emergency Room Work Phone: Start: 02-20-2023 End: 02-20-2023 Emergency department patient visit MD Nisa Rojas Work Phone: [facility]-Emergency Room Work Phone: Start: 02-04-2023 End: 02-04-2023 Emergency department patient visit MD Nisa Rojas Work Phone: [facility]-Emergency Room Work Phone: Start: 01-18-2023 End: 01-18-2023 Emergency department patient visit MD Nisa Rojas Work Phone: [facility]-Emergency Room Work Phone: Start: 01-16-2023 End: 01-16-2023 Emergency department patient visit MD Nisa Rojas Work Phone: [facility]-Emergency Room Work Phone: Start: 01-16-2023 End: 01-16-2023 Emergency department patient visit MD Nisa Rojas Work Phone: [facility]-Emergency Room Work Phone: Start: 01-06-2023 End: 01-06-2023 Emergency department patient visit MD Nisa Rojas Work Phone: [facility]-Emergency Room Work Phone: Start: 01-05-2023 End: 01-05-2023 Emergency department patient visit MD Nisa Rojas Work Phone: [facility]-Emergency Room Work Phone: Start: 12-30-2022 End: 12-30-2022 Emergency department patient visit MD Nisa Rojas Work Phone: [facility]-Emergency Room Work Phone: Start: 12-28-2022 End: 12-28-2022 Emergency department patient visit MD Nisa Rojas Work Phone: [facility]-Emergency Room Work Phone: Start: 12-11-2022 End: 12-11-2022 Emergency department patient visit MD Nisa Rojas Work Phone: [facility]-Emergency Room Work Phone: Start: 12-09-2022 End: 12-09-2022 ambulatory MD Nisa Rojas Work Phone: [facility] Work Phone: Start: 12-09-2022 End: 12-09-2022 Patient encounter procedure MD Nisa Rojas Work Phone: [facility]-Lab [place] Work Phone: Start: 12-05-2022 Registered Recurring MD Nisa Rojas Work Phone: [facility] C[facility]-Infusion Therapy - O/P Work Phone: Start: 11-29-2022 End: 11-29-2022 Emergency department patient visit MD Nisa Rojas Work Phone: [facility]-Emergency Room Work Phone: Start: 11-23-2022 End: 11-23-2022 Emergency department patient visit MD Nisa Rojas Work Phone: [facility]-Emergency Room Work Phone: Start: 11-18-2022 End: 11-18-2022 Emergency department patient visit MD Nisa Rojas Work Phone: [facility]-Emergency Room Work Phone: Start: 11-16-2022 End: 11-16-2022 Emergency department patient visit MD Nisa Rojas Work Phone: [facility]-Emergency Room Work Phone: Start: 09-18-2022 End: 09-18-2022 Emergency department patient visit MD Nisa Rojas Work Phone: [facility]-Emergency Room Work Phone: Start: 07-20-2022 End: 07-20-2022 Emergency department patient visit MD Nisa Rojas Work Phone: [facility]-Emergency Room Start: 06-27-2022 End: 06-27-2022 Emergency department patient visit MD Nisa Rojas Work Phone: [facility]-Emergency Room Start: 06-06-2022 Registered Recurring MD Nisa Rojas Work Phone: [facility] C[facility]-Infusion Therapy - O/P Start: 05-10-2022 End: 05-10-2022 Emergency department patient visit MD Nisa Rojas Work Phone: [facility]-Emergency Room Start: 05-01-2022 End: 05-01-2022 ambulatory MD Nisa Rojas Work Phone: [facility] Work Phone: Start: 05-01-2022 End: 05-01-2022 Patient encounter procedure MD Nisa Rojas Work Phone: [facility]-Lab [place] Start: 04-24-2022 End: 04-24-2022 Emergency department patient visit MD Nisa Rojas Work Phone: [facility]-Emergency Room Start: 03-28-2022 End: 03-28-2022 Emergency department patient visit MD Nisa Rojas Work Phone: [facility]-Emergency Room Start: 03-25-2022 End: 03-25-2022 Emergency department patient visit MD Nisa Rojas Work Phone: [facility]-Emergency Room Start: 03-13-2022 End: 03-13-2022 Patient encounter procedure MD Nisa Rojas Work Phone: [facility]-MRI [place] Start: 09-03-2021 End: 09-03-2021 ambulatory Jordon Gandhi Other [employer] Other Start: 09-03-2021 Telephone encounter Jordon Gandhi [facility] Start: 07-11-2021 End: 07-11-2021 ambulatory Keith Amato Other [employer] Other Start: 07-11-2021 Office outpatient vi sit 15 minutes Keith Amato [facility] [address] Start: 03-01-2021 End: 03-01-[address] NISA ROJAS Facility:H1 Start: 02-04-2021 End: 02-04-2021 ambulatory MICHAEL LOGAN Facility:[facility]1 Start: 07-09-2020 End: 07-09-[address] CARINE PIMENTEL Facility:[facility]1 Start: 04-30-2020 End: 04-30-[address] CARINE PIMENTEL Facility:H1 Start: 04-17-2020 End: 04-17-2020 Subsequent hospital visit by physician Darien Malnoe 1 Work Phone: Radiology Comment on above: Primary osteoarthrit is of right knee [M17.11] Procedures Date Procedure Procedure Detail Performing Clinician Start: 01-01-2025 Plain chest X-ray Sal Rojas MD Work Phone: Start: 12-30-2024 CT of head without contrast Nisa Rojas MD Work Phone: Start: 12-30-2024 Plain chest X-ray Sal Rojas MD Work Phone: Start: 12-30-2024 CT angiography of head Nisa Rojas MD Work Phone: Start: 12-30-2024 CT angiography of ne ck vessels Nisa Rojas MD Work Phone: Start: 12-25-2024 X-ray of cervical spine Nisa Rojas MD Work Phone: Start: 12-07-2024 Aerobic microbial culture Nisa Rojas MD Work Phone: Start: 12-02-2024 CAST / SPLINT / FX Sherwin kenna GARCÍA Work Phone: Start: 12-02-2024 Arthrocentesis aspir &/inj major jt/bursa w/o us Donato GARCÍA Work Phone: Start: 11-29-2024 Complete blood count with white cell differential, automated Srikanth Hernandez [employer] Work Phone: Start: 11-29-2024 End: 11-29-2024 Comprehensive metabolic panel Srikanth Hernandez [employer] Work Phone: Start: 11-29-2024 Lipid panel Srikanth Hernandez [employer] Work Phone: Start: 11-04-2024 X-ray of both knees, four views Nisa Rojas MD Work Phone: Start: 11-04-2024 NM bone scan whole body Nisa Rojas MD Work Phone: Start: 11-04-2024 Nisa che MD Work Phone: Start: 09-02-2024 Arthrocentesis aspir &/inj major jt/bursa w/o us Donato GARCÍA Work Phone: Start: 09-02-2024 Radiologic examinati on knee 1/2 views Donato GARCÍA Work Phone: Start: 08-31-2024 Hemoglobin glycosylated a1c Nisa Rojas MD Work Phone: Start: 08-17-2024 Urine culture Nisa hoang MD Work Phone: Start: 07-20-2024 Antinuclear antibodies yolanda Nisa Rojas MD Work Phone: Start: 07-20-2024 Complete blood count with white cell differential, automated Nisa Rojas MD Work Phone: Start: 07-20-2024 Comprehensive metabolic panel Nisa Rojas MD Work Phone: Start: 07-20-2024 SJOGREN'S AB, ANTI-SS-A/-SS-B Nisa Rojas MD Work Phone: Start: 07-20-2024 SPECIMEN STATUS REPORT Nisa Rojas MD Work Phone: Start: 07-17-2024 X-ray of both knees, two views Nisa Rojas MD Work Phone: Start: 07-15-2024 X-ray of both knees, two views Nisa Rojas MD Work Phone: Start: 07-14-2024 X-ray of nasal bones , three or more views Nisa Rojas MD Work Phone: Start: 07-09-2024 CT of head without contrast Nisa Rojas MD Work Phone: Start: 06-18-2024 X-ray of right knee, four views Nisa Rojas MD Work Phone: Start: 05-21-2024 Assay of parathormone R amy Rojas MD Work Phone: Start: 05-15-2024 CT cervical spine wi thout contrast MD Nisa Rojas Work Phone: Start: 05-15-2024 CT of head without contrast MD Nisa Rojas Work Phone: Start: 05-15-2024 X-ray of lumbar spin e, two or three views MD Nisa Rojas Work Phone: Start: 05-15-2024 X-ray of right knee, four views MD Nisa Rojas Work Phone: Start: 04-27-2024 STATUS COVID-19/FLU Sum jessica Stafford Workoscar PA Work Phone: Start: 04-17-2024 X-ray of right knee MD Nisa Rojas Work Phone: Start: 04-16-2024 CT angiography of head MD Nisa Rojas Work Phone: Start: 04-16-2024 CT angiography of ne ck vessels MD Nisa Rojas Work Phone: Start: 04-16-2024 CT of head without contrast MD Nisa Rojas Work Phone: Start: 03-11-2024 CT of head without contrast MD Nisa Rojas Work Phone: Start: 09-13-2023 Plain chest X-ray MD Mary Jane Rojas Work Phone: Start: 07-18-2023 Plain chest X-ray MD Mary Jane Rojas Work Phone: Start: 07-18-2023 Radiography of thoracic spine MD Nisa Rojas Work Phone: Start: 05-25-2023 SARS-CoV-2, Influenz a & RSV (PCR) MD Nisa Rojas Work Phone: Start: 05-25-2023 Streptococcus pyogen es antigen assay MD Nisa Rojas Work Phone: Start: 03-25-2023 MRI of cervical spin e without contrast MD Nisa Rojas Work Phone: Start: 03-23-2023 Urine culture MD Nisa Rojas Work Phone: Start: 03-23-2023 Plain chest X-ray MD Mary Jane Rojas Work Phone: Start: 03-20-2023 Urine culture MD Nisa Rojas Work Phone: Start: 03-11-2023 Urine culture MD Nisa Rojas Work Phone: Start: 03-11-2023 MR angiography of he ad with contrast MD Nisa Rojas Work Phone: Start: 03-11-2023 CT angiography of head MD Nisa Rojas Work Phone: Start: 03-11-2023 CT angiography of ne ck vessels MD Nisa Rojas Work Phone: Start: 03-11-2023 CT of head without contrast MD Nisa Rojas Work Phone: Start: 03-10-2023 Plain chest X-ray MD Mary Jane Rojas Work Phone: Start: 01-18-2023 CT cervical spine wi thout contrast MD Nisa Rojas Work Phone: Start: 01-18-2023 CT of head without contrast MD Nisa Rojas Work Phone: Start: 11-18-2022 CT of head without contrast MD Nisa Rojas Work Phone: Start: 04-24-2022 Plain chest X-ray MD Mary Jane Rojas Work Phone: Start: 03-13-2022 MRI of head MD Nisa Rojas Work Phone: Start: 04-17-2020 Radiologic exam knee complete 4/more views Naif Arias PA-C Work Phone: Start: 04-17-2020 Lipid 1996 panel - S miguel or Plasma Xr 1 Work Phone: Start: 01-28-2019 Echocardiography Start: 01-27-2019 Colonoscopy Aiden Krysta nthal DPM Work Phone: Plan of Treatment Date Care Activity Detail Author Start: 01-27-2029 Screening for malignant neoplasm of colon [facility] Start: 04-29-2026 Glaucoma screening Diabetes: Retinopathy Screening [facility] Start: 04-17-2025 Lipid panel Lipid Screening [facility] Start: 04-04-2025 Influenza vaccination Influenza Vaccine (Season Ended) [facility] Start: 02-28-2025 Hemoglobin A1c measurement Diabetes: Hemoglobin A1C [facility] Start: 02-28-2025 End: 02-28-2025 Patient encounter procedure [facility] Start: 02-24-2025 Medicare Annual Wellness (AWV) Medicare Annual Wellness (AWV) [facility] Start: 01-05-2025 End: 01-05-2025 Patient encounter procedure 01/05/2025 3:45 PM EDT Office Visit [facility] [address] [place] [address] Brady Mary DPM [address] [place] [address] [facility] Start: 01-04-2025 End: 01-04-2025 Patient encounter procedure YOLANDA [place] Start: 01-01-2025 [facility] Start: 12-30-2024 [facility] Start: 12-30-2024 End: 12-30-2024 Patient encounter procedure 12/30/2024 9:45 AM EDT [facility] [address] [place] [address] [facility] Start: 12-29-2024 End: 01-27-2025 C reactive protein [Mass/volume] in Serum or Plasma C-reactive protein Lab Routine Temporal pain Expected: 12/29/2024 (Approximate), Expires: 01/27/2025 [facility] Comment on above: Expected: 12/29/2024 (Approximate), Expi res: 01/27/2025 Start: 12-29-2024 End: 01-27-2025 CBC W Auto Differential panel - Blood CBC and differential Lab Routine Temporal pain Expected: 12/29/2024 (Approximate), Expires: 01/27/2025 [facility] Work Phone: Comment on above: Expected: 12/29/2024 (Approximate), Expi res: 01/27/2025 Start: 12-29-2024 End: 01-27-2025 Comprehensive metabolic 2000 panel - Serum or Plasma Comprehensive metabolic panel Lab Routine Temporal pain Expected: 12/29/2024 (Approximate), Expires: 01/27/2025 [facility] Comment on above: Expected: 12/29/2024 (Approximate), Expi res: 01/27/2025 Start: 12-29-2024 End: 01-27-2025 Cortisol Cortisol Lab Routine Temporal pain Expected: 12/29/2024 (Approximate), Expires: 01/27/2025 [facility] Comment on above: Expected: 12/29/2024 (Approximate), Expi res: 01/27/2025 Start: 12-29-2024 End: 01-27-2025 Erythrocyte sedimentation rate Sedimentation rate, automated Lab Routine Temporal pain Expected: 12/29/2024 (Approximate), Expires: 01/27/2025 [facility] Comment on above: Expected: 12/29/2024 (Approximate), Expi res: 01/27/2025 Start: 12-29-2024 End: 01-27-2025 Metanephrines Plasma Metanephrines Plasma Lab Routine Temporal pain Expected: 12/29/2024 (Approximate), Expires: 01/27/2025 [facility] Comment on above: Expected: 12/29/2024 (Approximate), Expi res: 01/27/2025 Start: 12-28-2024 Plain chest X-ray [facility] Start: 12-28-2024 [facility] Start: 12-26-2024 Plain chest X-ray [facility] Start: 12-26-2024 [facility] Start: 12-07-2024 Aerobic microbial culture Superficial Wound Culture [facility] Start: 12-07-2024 Superficial Wound Culture Superficial Wound Culture [facility] Start: 12-02-2024 End: 12-02-2024 [facility] Start: 12-02-2024 End: 12-02-2024 Patient encounter procedure [facility] Comment on above: Acute pain of right knee (Primary Dx); Arthritis of right knee Start: 11-30-2024 End: 12-29-2024 25-hydroxyvitamin D3 [Mass/volume] in Serum or Plasma Vitamin D 25 hydroxy Total Lab Routine Hyperparathyroidism, unspecified (CMS/HCC) Expected: 11/30/2024 (Approximate), Expires: 12/29/2024 [facility] Work Phone: Comment on above: Expected: 11/30/2024 (Approximate), Expi res: 12/29/2024 Start: 11-30-2024 End: 12-29-2024 Alkaline phosphatase, isoenzymes Alkaline phosphatase, isoenzymes Lab Routine Elevated alkaline phosphatase level Expected: 11/30/2024 (Approximate), Expires: 12/29/2024 [facility] Comment on above: Expected: 11/30/2024 (Approximate), Expi res: 12/29/2024 Start: 11-30-2024 End: 12-29-2024 CBC W Auto Differential panel - Blood CBC and differential Lab Routine Stage 1 chronic kidney disease Expected: 11/30/2024 (Approximate), Expires: 12/29/2024 [facility] Comment on above: Expected: 11/30/2024 (Approximate), Expi res: 12/29/2024 Start: 11-30-2024 End: 12-29-2024 Comprehensive metabolic 2000 panel - Serum or Plasma Comprehensive metabolic panel Lab Routine Type 2 diabetes mellitus with diabetic neuropathy, with long-term current use of insulin ([facility]) Stage 1 chronic kidney disease Expected: 11/30/2024 (Approximate), Expires: 12/29/2024 [facility] Comment on above: Expected: 11/30/2024 (Approximate), Expi res: 12/29/2024 Start: 11-30-2024 End: 12-29-2024 Gamma glutamyl transferase [Enzymatic activity/volume] in Serum or Plasma Gamma GT Lab Routine Elevated alkaline phosphatase level Expected: 11/30/2024 (Approximate), Expires: 12/29/2024 [facility] Comment on above: Expected: 11/30/2024 (Approximate), Expi res: 12/29/2024 Start: 11-30-2024 End: 12-29-2024 Hemoglobin a1c with eag Hemoglobin a1c with eag Lab Routine Type 2 diabetes mellitus with diabetic neuropathy, with long-term current use of insulin ([facility]) Expected: 11/30/2024 (Approximate), Expires: 12/29/2024 [facility] Comment on above: Expected: 11/30/2024 (Approximate), Expi res: 12/29/2024 Start: 11-30-2024 End: 12-29-2024 Lipid 1996 panel - Serum or Plasma Lipid panel Lab Routine Mixed hyperlipidemia ([facility]/HCC) Expected: 11/30/2024 (Approximate), Expires: 12/29/2024 [facility] Comment on above: Expected: 11/30/2024 (Approximate), Expi res: 12/29/2024 Start: 11-30-2024 End: 12-29-2024 Parathyrin.intact [Mass/volume] in Serum or Plasma PTH, intact Lab Routine Elevated alkaline phosphatase level Expected: 11/30/2024 (Approximate), Expires: 12/29/2024 [facility] Comment on above: Expected: 11/30/2024 (Approximate), Expi res: 12/29/2024 Start: 11-30-2024 End: 12-29-2024 Phosphate [Moles/volume] in Serum or Plasma Phosphorus Lab Routine Elevated alkaline phosphatase level Expected: 11/30/2024 (Approximate), Expires: 12/29/2024 [facility] Comment on above: Expected: 11/30/2024 (Approximate), Expi res: 12/29/2024 Start: 11-30-2024 End: 12-29-2024 Prostate specific Ag [Mass/volume] in Serum or Plasma PSA Lab Routine Prostate cancer screening Expected: 11/30/2024 (Approximate), Expires: 12/29/2024 [facility] Comment on above: Expected: 11/30/2024 (Approximate), Expi res: 12/29/2024 Start: 11-29-2024 End: 11-29-2024 Patient encounter procedure 11/29/2024 3:30 PM EDT Office Visit [facility] [address] [place] [address] Nisa Rojas MD [address] [place] [address] [facility] Start: 11-29-2024 [facility] Start: 11-29-2024 End: 11-29-2025 Alkaline phosphatase, isoenzymes Alkaline phosphatase, isoenzymes Lab Routine Elevated alkaline phosphatase level Expected: 11/29/2024, Expires: 11/29/2025 [facility] Comment on above: Expected: 11/29/2024, Expires: Start: 11-29-2024 Hemoglobin A1c measurement Diabetes: Hemoglobin A1C [facility] Start: 11-25-2024 Influenza vaccination Influenza Vaccine (#1) [facility] Comment on above: Postponed from 04/04/2024 (Patient Refus ed) Start: 10-25-2024 End: 10-25-2024 Patient encounter procedure 10/25/2024 8:45 AM EDT Office Visit [facility] [address] [place] [phone] Donato Rosa PA [address] [facility] [address] [place] [address] [facility] Start: 10-20-2024 End: 10-20-2024 Patient encounter procedure 10/20/2024 3:00 PM EDT Office Visit [facility] [address] [place] [phone] Nisa Rojas MD [address] [place] [address] [facility] Start: 09-22-2024 End: 09-22-2024 Patient encounter procedure [facility]OLANDA [place] Comment on above: Arrived Start: 09-20-2024 End: 09-20-2024 Patient encounter procedure 09/20/2024 9:30 AM EST Office Visit YOLANDA [place] [address] [facility] [address] [place] [phone] Adelita Gutierres DO [address] [place] [address] YOLANDA [place] Start: 09-02-2024 End: 09-02-2024 Patient encounter procedure 09/02/2024 9:30 AM EST Office Visit [facility] [address] [place] [phone] Donato Rosa, PA [address] [place] [address] Acute pain of right knee (Primary Dx) [facility] Comment on above: Acute pain of right knee (Primary Dx) Start: 08-31-2024 End: 08-31-2024 Patient encounter procedure 08/31/2024 2:30 PM EST Office Visit [facility] [address] [place] [address] Nisa Rojas MD [address] [place] [address] [facility] Start: 08-21-2024 Hemoglobin A1c measurement Diabetes: Hemoglobin A1C [facility] Start: 08-17-2024 [facility] Start: 08-10-2024 End: 11-08-2024 NM Whole body Bone Views NM bone whole body Imaging Routine Elevated alkaline phosphatase level Expected: 08/10/2024 (Approximate), Expires: 11/08/2024 [facility] Work Phone: Comment on above: Expected: 08/10/2024 (Approximate), Expi res: 11/08/2024 Start: 08-05-2024 End: 08-05-2024 Professional / ancillary services management 08/05/2024 11:45 AM EST Ancillary Procedure [facility] [id number] [place] [id number] [facility] Start: 07-29-2024 End: 07-29-2024 Patient encounter procedure 07/29/2024 4:00 PM EST Office Visit [facility] [address] [facility] [address] [place] [address] Yodit Jolly NP [address] [place] [address] [facility] Start: 07-20-2024 Influenza vaccination Influenza Vaccine (#1) [facility] Comment on above: Postponed from 04/04/2024 (Patient Refus ed) Start: 07-20-2024 End: 07-20-2024 Patient encounter procedure 07/20/2024 9:45 AM EST Office Visit [facility] [address] [place] [address] Nisa Rojas MD [address] [place] [address] History of migraine headaches (Primary Dx); Chronic bilateral low back pain without sciatica; Redness and swelling of forearm [facility] Comment on above: History of migraine headaches (Primary D x); Chronic bilateral low back pain without sciatica; Redness and swelling of forearm Start: 07-18-2024 Urine screening for protein Diabetes: Urine Protein Screening [facility] Start: 2024 End: 2025 MR Brain WO and W contrast IV MR brain w and wo contrast routine Imaging Routine Relapsing remitting multiple sclerosis (CMS/HCC) Ataxia Expected: 2024 (Approximate), Expires: 2025 [facility] Comment on above: Expected: 2024 (Approximate), Expi res: 2025 Start: 06-03-2024 End: 06-03-2025 CBC W Auto Differential panel - Blood CBC and differential Lab Routine Encounter for medication monitoring Expected: 06/03/2024 (Approximate), Expires: 06/03/2025 [facility] Work Phone: Comment on above: Expected: 06/03/2024 (Approximate), Expi res: 06/03/2025 Start: 06-03-2024 End: 06-03-2025 Comprehensive metabolic 2000 panel - Serum or Plasma Comprehensive metabolic panel Lab Routine Encounter for medication monitoring Expected: 06/03/2024 (Approximate), Expires: 06/03/2025 [facility] Comment on above: Expected: 06/03/2024 (Approximate), Expi res: 06/03/2025 Start: 06-03-2024 End: 06-03-2025 IgG [Mass/volume] in Serum or Plasma IgG Lab Routine Encounter for medication monitoring Expected: 06/03/2024 (Approximate), Expires: 06/03/2025 [facility] Comment on above: Expected: 06/03/2024 (Approximate), Expi res: 06/03/2025 Start: 06-03-2024 End: 06-03-2024 Patient encounter procedure 06/03/2024 1:40 PM EDT Office Visit [facility] [address] [address] [place] [address] Yodit Jolly, EMMA [address] [place] [phone] [facility] Start: 05-28-2024 End: 05-28-2024 Patient encounter procedure 05/28/2024 10:00 AM EDT Procedure Visit [facility] [address] [place] [address] Brady Mary DPM [address] [place] [address] [facility] Start: 05-27-2024 Hemoglobin A1c measurement Diabetes: Hemoglobin A1C [facility] Start: 05-25-2024 End: 05-25-2024 Patient encounter procedure [facility] Comment on above: Essential hypertension ([facility]/HCC) (Primar y Dx); Type 2 diabetes mellitus with stage 2 chronic kidney disease, with long-term current use of insulin (CMS/HCC); Pure hypercholesterolemia (CMS/HCC); Hyperparathyroidism, unspecified (CMS/HCC); Bipolar 1 disorder, mixed (CMS/HCC); MS (multiple sclerosis) (CMS/HCC); Chronic bilateral low back pain without sciatica; Psoriatic arthropathy (CMS/HCC); Seizure disorder (CMS/HCC); Polyneuropathy associated with underlying disease (CMS/HCC); Vitamin B12 deficiency; Vitamin D deficiency; Primary osteoarthritis involving multiple joints; Morbid obesity (CMS/HCC) Start: 05-21-2024 [facility] Start: 05-06-2024 End: 05-06-2024 Patient encounter procedure 05/06/2024 1:00 PM EDT Procedure Visit [facility] [address] [place] [address] Josefina Sanchez NP [address] [place] [address] [facility] Start: 05-04-2024 Hepatic function panel [facility] Start: 05-04-2024 [facility] Start: 05-04-2024 End: 05-04-2024 Patient encounter procedure 05/04/2024 1:00 PM EDT Office Visit [facility] [address] [place] [phone] Yodit Jolly, EMMA [address] [place] [address] [facility] Start: 04-17-2024 [facility] Start: 04-17-2024 [facility] Start: 04-04-2024 Covid-19 Vaccine ( season) Covid-19 Vaccine () [facility] Start: 04-04-2024 Influenza vaccination Influenza Vaccine (#1) [facility] Start: 03-17-2024 Computed tomography of abdomen and pelvis with contrast CT abdomen pelvis w [facility] Start: 03-17-2024 Hepatic function panel [facility] Start: 03-17-2024 End: 03-17-2024 [facility] Start: 03-11-2024 CT of head without contrast CT head/brain wo con [facility] Start: 03-11-2024 CT Unspecified body region WO contrast [facility] Start: 02-25-2024 [facility] Start: 02-13-2024 Glaucoma screening Diabetes: Retinopathy Screening [facility] Start: 02-01-2024 Influenza vaccination Influenza Vaccine (#1) [facility] Comment on above: Postponed from 04/04/2023 (Patient Refus ed) Start: 01-01-2024 Medicare Annual Wellness (AWV) Medicare Annual Wellness (AWV) [facility] Start: 12-08-2023 End: 12-08-2023 Patient encounter procedure 12/08/2023 1:00 PM EDT Procedure Visit [facility] [address] [place] [phone] Aiden Linares DPM [address] [place] [address] [facility] Start: 11-22-2023 Diabetes Screening Diabetes Screening [facility] Start: 11-04-2023 End: 11-04-2023 Patient encounter procedure 11/04/2023 1:30 PM EDT Office Visit [facility] [address] [place] [phone] Nisa Rojas MD [address] [place] [address] [facility] Start: 10-17-2023 Hemoglobin A1c measurement Diabetes: Hemoglobin A1C [facility] Start: 09-13-2023 CT cervical spine without contrast CT cervical spine wo [facility] Start: 09-13-2023 CT of head without contrast CT head/brain wo [facility] Start: 09-13-2023 Plain chest X-ray XR chest 2V* [facility] Start: 09-13-2023 XR Chest 2 Views [facility] Start: 09-08-2023 End: 09-08-2023 Patient encounter procedure 09/08/2023 1:15 PM EST Office Visit [facility] [address] [place] [phone] Aiden Linares DPM [address] [place] [address] [facility] Start: 06-27-2023 [facility] Start: 03-23-2023 Bacteria identified in Urine by Culture [facility] Start: 03-23-2023 [facility] Start: 03-23-2023 Hospital admission [facility] Start: 03-23-2023 Referral to neurologist [facility] Start: 03-20-2023 Bacteria identified in Urine by Culture [facility] Start: 03-20-2023 [facility] Start: 03-20-2023 CT angiography of head [facility] Start: 03-20-2023 CT angiography of neck vessels [facility] Start: 03-20-2023 Plain chest X-ray XR chest 2V* [facility] Start: 03-20-2023 CT of head without contrast CT head/brain wo [facility] Start: 03-11-2023 Bacteria identified in Urine by Culture Urine Culture [facility] Start: 03-11-2023 MR angiography of head with contrast MR angio MR brain wo/w con [facility] Start: 03-11-2023 MRA Head vessels W contrast IV [facility] Start: 03-11-2023 Referral to Rf Design Engineer [facility] Start: 03-11-2023 Physical therapy procedure [facility] Start: 03-11-2023 Referral to occupational therapist [facility] Start: 03-11-2023 Hospital admission [facility] Start: 03-11-2023 Referral to neurologist [facility] Start: 03-11-2023 [facility] Start: 03-11-2023 CT angiography of head [facility] Start: 03-11-2023 CT angiography of neck vessels [facility] Start: 03-11-2023 CT of head without contrast CT head/brain wo con [facility] Start: 03-11-2023 CT Unspecified body region WO contrast [facility] Start: 03-11-2023 [facility] Start: 03-10-2023 [facility] Start: 03-10-2023 [facility] Start: 03-08-2023 Urine screening for protein Diabetes: Urine Protein Screening [facility] Start: 03-05-2023 Urine screening for protein Diabetes: Urine Protein Screening [facility] Start: 12-09-2022 [facility] Start: 07-20-2022 CT of head without contrast CT head/brain wo con [facility] Start: 07-20-2022 CT Unspecified body region WO contrast [facility] Start: 05-01-2022 [facility] Start: 03-28-2022 End: 03-28-2022 Emergency department patient visit Departed Emergency [facility] Start: 03-25-2022 End: 03-25-2022 Emergency department patient visit Departed Emergency [facility] Start: 2021 Shingrix Vaccine (1 of 2) Shingrix Vaccine (1 of 2) [facility] Start: 2016 Screening for malignant neoplasm of colon [facility] Start: 1990 Hepatitis B Vaccine (1 of 3 - 19+ 3-dose series) Hepatitis B Vaccine (1 of 3 - 19+ 3-dose series) [facility] Start: 1990 Urine microalbumin profile DTaP,Tdap,Td Vaccine (1 - Tdap) [facility] Start: 1989 Anxiety Screening Anxiety Screening [facility] Start: 1989 Depression Screening Depression Screening [facility] Start: 1971 Screening for malignant neoplasm of colon [facility] Albumin/Globulin ratio [facility] Albumin/Globulin ratio [facility] Albumin/Globulin ratio [facility] Albumin/Globulin ratio [facility] Albumin/Globulin ratio [facility] Albumin/Globulin ratio [facility] Alkaline phosphatase - bone isoenzyme measurement [facility] Alkaline phosphatase [Enzymatic activity/volume] in Serum or Plasma [facility] Alkaline phosphatase isoenz panel - Serum or Plasma [facility] Anion gap measurement [facility] Anion gap measurement [facility] Anion gap measurement [facility] Anion gap measurement [facility] Anion gap measurement [facility] Anion gap measurement [facility] aPTT in Platelet poo r plasma by Coagulation assay [facility] Bacteria identified in Unspecified specimen by Aerobe culture [facility] Basophils [#/volume] in Blood by Automated count [facility] Basophils [#/volume] in Blood by Automated count [facility] Basophils [#/volume] in Blood by Automated count [facility] Basophils [#/volume] in Blood by Automated count [facility] Basophils/100 leukoc ytes in Blood by Automated count [facility] Basophils/100 leukoc ytes in Blood by Automated count [facility] Basophils/100 leukoc ytes in Blood by Automated count [facility] Basophils/100 leukoc ytes in Blood by Automated count [facility] Bilirubin.indirect [Mass/volume] in Serum or Plasma [facility] Bilirubin.indirect [Mass/volume] in Serum or Plasma [facility] C reactive protein [Mass/volume] in Serum or Plasma C-reactive protein Lab Routine Primary osteoarthritis involving multiple joints Myalgia Ordered: 06/29/2024 [facility] Comment on above: Ordered: 06/29/2024 Calculated LDL yuriy sterol level [facility] CBC W Auto Different ial panel - Blood CBC auto differential Lab Routine Stage 1 chronic kidney disease Ordered: 06/29/2024 [facility] Work Phone: Comment on above: Ordered: 06/29/2024 Cholesterol.total/Ch olesterol in HDL [Mass Ratio] in Serum or Plasma [facility] Clostridioides diffi cile toxin A+B tcdA+tcdB genes [Presence] in Stool by BOYD with probe detection Clostridium difficile toxin Microbiology Routine Diarrhea, unspecified type Ordered: 05/25/2024 [facility] Work Phone: Comment on above: Ordered: 05/25/2024 Comprehensive metabo lic 1999 panel - Serum or Plasma Comprehensive metabolic panel Lab Routine 05/21/2024 2:13 PM EDT [facility] Work Phone: Comprehensive metabo lic 1999 panel - Serum or Plasma Comprehensive metabolic panel Lab Routine Stage 1 chronic kidney disease Ordered: 06/29/2024 [facility] Comment on above: Ordered: 06/29/2024 Creatine kinase [Enz ymatic activity/volume] in Serum or Plasma CK Lab Routine Stage 1 chronic kidney disease Ordered: 06/29/2024 [facility] Comment on above: Ordered: 06/29/2024 Cyclic citrul peptid e antibody, IgG Cyclic citrul peptide antibody, IgG Lab Routine Primary osteoarthritis involving multiple joints Myalgia Ordered: 06/29/2024 [facility] Comment on above: Ordered: 06/29/2024 Eosinophils [#/volum e] in Blood [facility] Eosinophils [#/volum e] in Blood [facility] Eosinophils/100 leuk ocytes in Blood by Automated count [facility] Eosinophils/100 leuk ocytes in Blood by Automated count [facility] Eosinophils/100 leuk ocytes in Blood by Automated count [facility] Eosinophils/100 leuk ocytes in Blood by Automated count [facility] Erythrocyte distribu tion width [Ratio] by Automated count [facility] Erythrocyte distribu tion width [Ratio] by Automated count [facility] Erythrocyte distribu tion width [Ratio] by Automated count [facility] Erythrocyte distribu tion width [Ratio] by Automated count [facility] Erythrocyte sediment ation rate Sedimentation rate, automated Lab Routine Primary osteoarthritis involving multiple joints Myalgia Ordered: 06/29/2024 [facility] Comment on above: Ordered: 06/29/2024 Erythrocytes [#/volu me] in Blood [facility] Erythrocytes [#/volu me] in Blood [facility] Erythrocytes [#/volu me] in Blood [facility] Erythrocytes [#/volu me] in Blood [facility] Globulin [Mass/volum e] in Serum [facility] Globulin [Mass/volum e] in Serum [facility] Globulin [Mass/volum e] in Serum [facility] Globulin [Mass/volum e] in Serum [facility] Globulin [Mass/volum e] in Serum [facility] Globulin [Mass/volum e] in Serum [facility] Glucose [Mass/volume ] in Serum or Plasma [facility] Glucose [Mass/volume ] in Serum or Plasma [facility] Glucose measurement estimated from glycated hemoglobin [facility] Glucose measurement estimated from glycated hemoglobin [facility] Glucose measurement estimated from glycated hemoglobin [facility] Glucose measurement estimated from glycated hemoglobin [facility] Glucose measurement estimated from glycated hemoglobin [facility] Hematocrit [Volume F raction] of Blood [facility] Hematocrit [Volume F raction] of Blood [facility] Hematocrit [Volume F raction] of Blood [facility] Hematocrit [Volume F raction] of Blood [facility] Hemoglobin [Mass/vol ume] in Blood [facility] Hemoglobin [Mass/vol ume] in Blood [facility] Hemoglobin [Mass/vol ume] in Blood [facility] Hemoglobin [Mass/vol ume] in Blood [facility] Hemoglobin A1c/Hemoglobin.total in Blood [facility] Hemoglobin A1c/Hemoglobin.total in Blood [facility] Hepatitis A virus an tibody, IgM type [facility] Work Phone: Hepatitis B core ant ibody measurement, IgM type [facility] Work Phone: Hepatitis B virus madsen rface Ag [Presence] in Serum or Plasma by Immunoassay [facility] Work Phone: Hepatitis C virus Ab Signal/Cutoff in Serum or Plasma by Immunoassay [facility] Work Phone: Hepatitis C virus RN A [log units/volume] (viral load) in Serum or Plasma by BOYD with probe detection [facility] Work Phone: Hepatitis C virus RN A [Units/volume] (viral load) in Serum or Plasma by BOYD with probe detection [facility] Work Phone: HIV 1+2 Ab+HIV1 p24 Ag [Presence] in Serum or Plasma by Immunoassay [facility] Work Phone: IgG [Mass/volume] in Serum or Plasma [facility] Work Phone: IgG [Mass/volume] in Serum or Plasma [facility] IgM [Mass/volume] in Serum or Plasma [facility] Work Phone: INR in Platelet poor plasma by Coagulation assay [facility] Intestinal alkaline phosphatase measurement [facility] MEAGHAN virus Ab [Presenc e] in Serum or Plasma by Immunoassay [facility] Work Phone: Leukocytes [#/volume ] corrected for nucleated erythrocytes in Blood by Automated [facility] Leukocytes [#/volume ] corrected for nucleated erythrocytes in Blood by Automated [facility] Leukocytes [#/volume ] corrected for nucleated erythrocytes in Blood by Automated coun [facility] Leukocytes [#/volume ] corrected for nucleated erythrocytes in Blood by Automated coun [facility] Leukocytes [#/volume ] in Blood [facility] Leukocytes [#/volume ] in Blood [facility] Leukocytes [#/volume ] in Blood [facility] Leukocytes [#/volume ] in Blood [facility] Lymphocytes [#/volum e] in Blood by Automated count [facility] Lymphocytes [#/volum e] in Blood by Automated count [facility] Lymphocytes [#/volum e] in Blood by Automated count [facility] Lymphocytes [#/volum e] in Blood by Automated count [facility] Lymphocytes/100 leuk ocytes in Blood by Automated count [facility] Lymphocytes/100 leuk ocytes in Blood by Automated count [facility] Lymphocytes/100 leuk ocytes in Blood by Automated count [facility] Lymphocytes/100 leuk ocytes in Blood by Automated count [facility] MCH [Entitic mass] b y Automated count [facility] MCH [Entitic mass] b y Automated count [facility] MCH [Entitic mass] b y Automated count [facility] MCH [Entitic mass] b y Automated count [facility] MCHC [Mass/volume] b y Automated count [facility] MCHC [Mass/volume] b y Automated count [facility] MCHC [Mass/volume] b y Automated count [facility] MCHC [Mass/volume] b y Automated count [facility] MCV [Entitic volume] by Automated count [facility] MCV [Entitic volume] by Automated count [facility] MCV [Entitic volume] by Automated count [facility] MCV [Entitic volume] by Automated count [facility] Monocytes [#/volume] in Blood by Automated count [facility] Monocytes [#/volume] in Blood by Automated count [facility] Monocytes [#/volume] in Blood by Automated count [facility] Monocytes [#/volume] in Blood by Automated count [facility] Monocytes/100 leukoc ytes in Blood by Automated count [facility] Monocytes/100 leukoc ytes in Blood by Automated count [facility] Monocytes/100 leukoc ytes in Blood by Automated count [facility] Monocytes/100 leukoc ytes in Blood by Automated count [facility] Neutrophils [#/volum e] in Blood by Automated count [facility] Neutrophils [#/volum e] in Blood by Automated count [facility] Neutrophils [#/volum e] in Blood by Automated count [facility] Neutrophils [#/volum e] in Blood by Automated count [facility] Neutrophils/100 leuk ocytes in Blood by Automated count [facility] Neutrophils/100 leuk ocytes in Blood by Automated count [facility] Neutrophils/100 leuk ocytes in Blood by Automated count [facility] Neutrophils/100 leuk ocytes in Blood by Automated count [facility] Nuclear Ab [Titer] i n Serum by Immunofluorescence YOLANDA Lab Routine Primary osteoarthritis involving multiple joints Myalgia Ordered: 06/29/2024 [facility] Comment on above: Ordered: 06/29/2024 Nucleated erythrocyt es [Presence] in Blood by Automated count [facility] Nucleated erythrocyt es [Presence] in Blood by Automated count [facility] Nucleated erythrocyt es [Presence] in Blood by Automated count [facility] Nucleated erythrocyt es [Presence] in Blood by Automated count [facility] Ova and parasite examination Ova and parasite examination Microbiology Routine Diarrhea, unspecified type Ordered: 05/25/2024 [facility] Comment on above: Ordered: 05/25/2024 Pancreatic elastase, fecal Pancr eatic elastase, fecal Lab Routine Diarrhea, unspecified type Ordered: 05/25/2024 [facility] Comment on above: Ordered: 05/25/2024 Parathyrin.intact [Mass/volume] in Serum or Plasma PTH, intact Lab Routine Primary osteoarthritis involving multiple joints Stage 1 chronic kidney disease Myalgia Ordered: 06/29/2024 [facility] Comment on above: Ordered: 06/29/2024 Patient Education [facility] Work Phone: Patient referral [facility] Work Phone: Platelet mean volume [Entitic volume] in Blood by Automated count [facility] Platelet mean volume [Entitic volume] in Blood by Automated count [facility] Platelet mean volume [Entitic volume] in Blood by Automated count [facility] Platelet mean volume [Entitic volume] in Blood by Automated count [facility] Platelets [#/volume] in Blood [facility] Platelets [#/volume] in Blood [facility] Platelets [#/volume] in Blood [facility] Platelets [#/volume] in Blood [facility] Prothrombin time (PT) [facility] Rheumatoid factor [Units/volume] in Serum or Plasma Rheumatoid factor Lab Routine Primary osteoarthritis involving multiple joints Myalgia Ordered: 06/29/2024 [facility] Comment on above: Ordered: 06/29/2024 SJOGRENS ANTIBODIES (SS-A,SS-B) SJOGRENS ANTIBODIES (SS-A,SS-B) Lab Routine Primary osteoarthritis involving multiple joints Myalgia Ordered: 06/29/2024 [facility] Comment on above: Ordered: 06/29/2024 Stool culture Stool culture Microbiology Routine Diarrhea, unspecified type Ordered: 05/25/2024 [facility] Comment on above: Ordered: 05/25/2024 Urate [Mass/volume] in Serum or Plasma Uric acid Lab Routine Primary osteoarthritis involving multiple joints Myalgia Ordered: 06/29/2024 [facility] Comment on above: Ordered: 06/29/2024 Varicella zoster vir us IgG Ab [Units/volume] in Serum by Immunoassay [facility] Work Phone: VLDL cholesterol measurement [facility] Immunizations Immunization Date Immunization Notes Care Provider [facility] 12-05-2021 Pneumococcal Conjugate PCV 20 Aiden Linares DPM Work Phone: [facility] 11-30-2020 COVID-19 mRNANathalieirtorri (Pfizer) MD Nisa Rojas Work Phone: [facility] 11-09-2020 COVID-19 mRNA Comirtorri (Pfizer) MD Nisa Rojas Work Phone: [facility] 11-26-2017 hepatitis B vaccine, adult dosage Aiden Linares DPM Work Phone: [facility] 11-26-2017 hepatitis B vaccine, pediatric or pediatric/adolescent dosage MD Nisa Rojas Work Phone: [facility] 11-18-2008 tuberculin skin test; purified protein derivative solution, intradermal Yodit Jolly NP Work Phone: [facility] [facility] 06-30-2007 influenza virus vaccine, unspecified formulation Xr 1 Work Phone: [facility] 03-19-2006 pneumococcal polysaccharide vaccine, 23 valent Aiden Norman DPM Work Phone: [facility] [employer] NEGATED: Highlighted row has not occurred! 7 pneumococcal polysaccharide vaccine, 23 valent Patient Objection [employer] Other [employer] Other NEGATED: Highlighted row has not occurred! 7 pneumococcal polysaccharide vaccine, 23 valent Patient Objection [employer] Other [employer] Other NEGATED: Highlighted row has not occurred! 6 influenza, seasonal, injectable Patient Objection [employer] Other [employer] Other Payers Date Payer Category Payer Self-pay [id number] 08-04-2019 Medicare [id number]. [id number] 08-04-2019 Medicare (Managed Care) [employer] [id number] 04-15-2013 Medicaid [id number]. [id number]. [id number] 08-04-2012 Medicare [id number] 2.16.840.1.047181.19 1971 Unknown [id number] 2.16.840.1.549674.3.579.2. 593 1971 Unknown [id number] 2.16.840.1.181241.3.579.2. 593 1971 Unknown [id number] 2.16.840.1.299099.3.579.2. 593 1971 Unknown [id number] 2.16.840.1.385910.3.579.2. 593 1971 Unknown [id number] 2.16.840.1.229718.3.579.2. 356 1971 Unknown [id number] 2.16.840.1.508623.3.579.2. 1259 1971 Unknown [id number] 2.16.840.1.478358.3.579.2. 1259 1971 Unknown [id number] 2.16.840.1.138768.3.579.2. 1259 1971 Unknown [id number] 2.16.840.1.524739.3.579.2. 125 1971 Unknown [id number] 2.16.840.1.673902.3.579.2. 1259 1971 Unknown [id number] 2.16.840.1.018921.3.579.2. 1259 1971 Unknown [id number] 2.16.840.1.579142.3.579.2. 1259 1971 Unknown [id number] 2.16.840.1.418627.3.579.2. 1259 1971 Unknown [id number] 2.16.840.1.864744.3.579.2. 1259 1971 Unknown [id number] 2.16.840.1.857429.3.579.2. 1259 1971 Unknown [id number] 2.16.840.1.091284.3.579.2. 1259 1971 Unknown [id number] 2.16.840.1.153431.3.579.2. 1258 1971 Unknown [id number] 2.16.840.1.838404.3.579.2. 1258 1971 Unknown [id number] 2.16.840.1.488119.3.579.2. 1258 1971 Unknown [id number] 2.16.840.1.946350.3.579.2. 1258 1971 Unknown [id number] 2.16.840.1.970351.3.579.2. 1258 1971 Unknown [id number] 2.16.840.1.109231.3.579.2. 1258 1971 Unknown [id number] 2.16.840.1.338794.3.579.2. 1258 1971 Unknown [id number] 2.16.840.1.567880.3.579.2. 1258 1971 Unknown [id number] 2.16.840.1.996202.3.579.2. 1258 1971 Unknown [id number] 2.16.840.1.989313.3.579.2. 1258 1971 Unknown [id number] 2.16.840.1.918203.3.579.2. 1258 1971 Unknown [id number] 2.16.840.1.964978.3.579.2. 9 08-04-1958 Medicaid [id number] 08-04-1958 Medicare [id number] Medicare Medicare Nonpatient [id number] Unknown Regular Auto/Medical [id number] Unknown [id number] 2.16.840.1.873818.3.579.2. 531 Unknown [id number] 2.16.840.1.680845.3.579.2. 531 Unknown [id number] 2.16.840.1.513333.3.579.2. 531 Unknown [id number] 2.16.840.1.724533.3.579.2. 531 Unknown [id number] 2.16.840.1.996417.3.579.2. 531 Unknown [id number] 2.16.840.1.879357.3.579.2. 531 Unknown [id number] 2.16.840.1.108978.3.579.2. 531 Unknown [id number] 2.16.840.1.199008.3.579.2. 531 Unknown [id number] 2.16.840.1.405630.3.579.2. 531 Unknown [id number] 2.16.840.1.220947.3.579.2. 531 Unknown [id number] 2.16.840.1.442764.3.579.2. 531 Unknown [id number] 2.16.840.1.699369.3.579.2. 531 Unknown [id number] 2.16.840.1.431164.3.579.2. 531 Unknown [id number] 2.16.840.1.980002.3.579.2. 531 Unknown [id number] 2.16.840.1.733030.3.579.2. 531 Unknown [id number] 2.16.840.1.058257.3.579.2. 531 Unknown [id number] 2.16.840.1.187592.3.579.2. 531 Unknown [id number] 2.16.840.1.612713.3.579.2. 531 Unknown [id number] 2.16.840.1.564258.3.579.2. 531 Unknown [id number] 2.16.840.1.432457.3.579.2. 531 Unknown [id number] 2.16.840.1.031679.3.579.2. 531 Unknown [id number] 2.16.840.1.632724.3.579.2. 531 Unknown [id number] 2.16.840.1.063209.3.579.2. 531 Unknown [id number] 2.16.840.1.327083.3.579.2. 531 Unknown [id number] 2.16.840.1.852038.3.579.2. 531 Unknown [id number] 2.16.840.1.735580.3.579.2. 531 Unknown [id number] 2.16.840.1.669786.3.579.2. 531 Unknown [id number] 2.16.840.1.264248.3.579.2. 531 Unknown [id number] 2.16.840.1.373625.3.579.2. 531 Unknown [id number] 2.16.840.1.472298.3.579.2. 531 Unknown [id number] 2.16.840.1.514664.3.579.2. 531 Unknown [id number] 2.16.840.1.038058.3.579.2. 531 Unknown [id number] 2.16.840.1.845656.3.579.2. 531 Unknown [id number] 2.16.840.1.388897.3.579.2. 531 Unknown [id number] 2.16.840.1.851462.3.579.2. 531 Unknown [id number] 2.16.840.1.560030.3.579.2. 531 Unknown [id number] 2.16.840.1.134021.3.579.2. 531 Unknown [id number] 2.16.840.1.269945.3.579.2. 531 Unknown [id number] 2.16.840.1.517341.3.579.2. 531 Unknown [id number] 2.16.840.1.962238.3.579.2. 531 Unknown [id number] 2.16.840.1.654941.3.579.2. 531 Unknown [id number] 2.16.840.1.517001.3.579.2. 531 Unknown [id number] 2.840.1.704052.3.579.2. 531 Unknown [id number] 2.16840.1.864825.3.579.2. 531 Unknown [id number] 2.840.1.697294.3.579.2. 531 Unknown [id number] 2.840.1.606759.3.579.2. 531 Unknown [id number] 2.840.1.944589.3.579.2. 531 Unknown [id number] 2.840.1.660006.3.579.2. 531 Unknown [id number] 2.840.1.821171.3.579.2. 531 Unknown [id number] 2.840.1.785964.3.579.2. 531 Unknown [id number] 2.840.1.059927.3.579.2. 531 Unknown [id number] 2.840.1.716407.3.579.2. 531 Unknown [id number] 2.840.1.954120.3.579.2. 531 Unknown [id number] 2.840.1.456878.3.579.2. 531 Unknown [id number] 2.840.1.644531.3.579.2. 531 Unknown [id number] 2.840.1.883085.3.579.2. 531 Unknown [id number] 2.840.1.442573.3.579.2. 531 Unknown [id number] 2.16.840.1.325676.3.579.2. 531 Unknown [id number] 2.16.840.1.899595.3.579.2. 531 Unknown [id number] 2.16.840.1.570036.3.579.2. 531 Unknown [id number] 2.16.840.1.858169.3.579.2. 531 Unknown [id number] 2.16.840.1.641926.3.579.2. 531 Unknown [id number] 2.16.840.1.430157.3.579.2. 531 Unknown [id number] 2.16.840.1.261830.3.579.2. 531 Unknown [id number] 2.16.840.1.395709.3.579.2. 531 Unknown [id number] 2.16.840.1.808916.3.579.2. 531 Unknown [id number] 2.16.840.1.725414.3.579.2. 531 Unknown [id number] 2.16.840.1.338052.3.579.2. 531 Unknown [id number] 2.16.840.1.413659.3.579.2. 531 Unknown [id number] 2.16.840.1.363976.3.579.2. 531 Unknown [id number] 2.16.840.1.980619.3.579.2. 531 Unknown [id number] 2.16.840.1.122965.3.579.2. 531 Unknown [id number] 2.16.840.1.643157.3.579.2. 531 Unknown [id number] 2.16.840.1.385563.3.579.2. 531 Unknown [id number] 2.16.840.1.813278.3.579.2. 531 Unknown [id number] 2.16.840.1.856337.3.579.2. 531 Unknown [id number] 2.16.840.1.197156.3.579.2. 531 Unknown [id number] 2.16.840.1.016819.3.579.2. 531 Unknown [id number] 2.16.840.1.932128.3.579.2. 531 Unknown [id number] 2.16.840.1.359398.3.579.2. 531 Unknown [id number] 2.16.840.1.723310.3.579.2. 531 Unknown [id number] 2.16.840.1.710142.3.579.2. 531 Unknown [id number] 2.16.840.1.086417.3.579.2. 531 Unknown [id number] 2.16.840.1.420631.3.579.2. 531 Unknown [id number] 2.16.840.1.673636.3.579.2. 531 Unknown [id number] 2.16.840.1.400959.3.579.2. 531 Unknown [id number] 2.16.840.1.447673.3.579.2. 531 Unknown [id number] 2.16.840.1.205711.3.579.2. 531 Unknown [id number] 2.16.840.1.578590.3.579.2. 531 Unknown [id number] 2.16.840.1.500024.3.579.2. 531 Unknown [id number] 2.16.840.1.731010.3.579.2. 531 Unknown [id number] 2.16.840.1.525194.3.579.2. 531 Unknown [id number] 2.16.840.1.047141.3.579.2. 531 Unknown [id number] 2.16.840.1.239637.3.579.2. 531 Unknown [id number] 2.16.840.1.331707.3.579.2. 531 Unknown [id number] 2.16.840.1.350423.3.579.2. 531 Unknown [id number] 2.16.840.1.430013.3.579.2. 531 Unknown [id number] 2.16.840.1.362165.3.579.2. 531 Unknown [id number] 2.16.840.1.116743.3.579.2. 531 Social History Date Type Detail Facility Unknown if ever smoked [employer] Other Start: 07-18-2023 End: 02-25-2024 Sex Assigned At [facility] Start: 08-04-1989 End: 12-30-2024 Tobacco smoking status [facility] Smoker (finding) [facility] Start: 1970 Sex Assigned At Male [facility] Start: 11-23-2022 End: 12-28-2024 Tobacco smoking status [facility] Never smoked tobacco (finding) [facility] Start: 08-04-1989 End: 02-25-2024 Tobacco smoking status [facility] Current some day smoker [facility] Start: 08-04-1989 End: 08-18-2012 History of tobacco use Cigarette Smoker [facility] Start: 08-05-2023 End: 02-25-2024 Cigarettes smoked current (pack per day) - Reported 0.3 [facility] Start: 08-05-2023 End: 12-24-2024 Tobacco use and exposure Smokeless tobacco non-user [facility] Start: 08-16-2023 End: 12-30-2024 Alcohol intake Lifetime non-drinker (finding) [facility] How often to you hav e a drink containing alcohol? Never [facility] How many standard drinks containing alcohol do you have on a typical day? Patient does not drink [facility] Start: 01-21-2023 Tobacco Comment 5 or less cigs a day [facility] Start: 04-28-2023 Alcohol Comment Caffine intake: Coke Zero, 2-3 cans daily [facility] Start: 1970 Sex Assigned At Not on file [facility] History of tobacco use Passive smoker [facility] Start: 10-14-2012 End: 12-24-2024 Tobacco smoking status [facility] Ex-smoker [facility] Start: 10-26-2019 Alcoholic beverage intake Current non-drinker of alcohol (finding) [facility] Start: 04-11-2020 Gender identity Identifies as male gender (finding) [facility] Start: 04-11-2020 Sexual orientation Choose not to disclose [facility] Start: 03-18-2020 End: 04-17-2020 Exposure to SARS-CoV-2 (event) Not sure [facility] Start: 06-13-2024 End: 01-01-2025 Sex Male (finding) [facility] Start: 10-10-2024 End: 12-02-2024 Tobacco smoking status [facility]IS Unknown if ever smoked [facility] Medical Equipment Procedure Code Equipment Code Equipment Origin al Text Equipment Identifier Dates [id number] Start: 10-14-2016 Goals Date Patient Goal Desired Activity /State Functional Status Date Assessment Result Facility 03-23-2023 Functional status Patient at Baseline [facility] Work Phone: 03-11-2023 Functional status Patient Not at Baseline [facility] Work Phone: Mental Status Date Assessment Result Facility 03-23-2023 Cognitive function Cognitive Sta tus Patient at Baseline [facility] Work Phone: 03-11-2023 Cognitive function Cognitive Sta tus Patient at Baseline [facility] Work Phone: Clinical Notes 04-17-2020 to 12-30-2024 Nisa Rojas MD - 12/30/2024 9:45 AM Arun Rojas MD - 12/28/2024 10:45 AM EDTTelephone Encounter - MO NevilleT - 12/08/2024 2:05 PM Arun Rojas MD - 12/08/2024 11:00 AM EDT Note Date & Type Note Facility 12-30-2024 Radiology Diagnostic study note [facility] Work Phone: 12-30-2024 Radiology Diagnostic study note [facility] Work Phone: 12-30-2024 History of Present illness Narrative Images from the original note were not included. Kerline Chang is a 54 y.o. male presents with chief complaint of one week follow up (Hypertension, Hyperglycemia and Headache) HPI: History of Present Illness The patient presents for evaluation of headaches and blood glucose management. Headaches He is currently on a regimen of 6 prednisone tablets, which he has not yet taken today. He reports that prednisone has been ineffective in managing his severe migraines, necessitating the use of injections. He also experiences dizziness, which he attributes to the prednisone, having resulted in two ER visits. Mild dizziness was present this morning, which he believes may be a residual effect of Lyrica taken the previous night. He describes an episode of waking up at night with a severe migraine that caused him to cry. Blood work, including a sed rate test, was completed at [facility] following his last appointment two days ago. He finds some relief from Toradol but reports that Nurtec has been ineffective. No anti-migraine medications have been beneficial. Imitrex was tried without success, and Treximet has not yet been tried. Frustration is expressed with daily visits to the emergency room, where he feels his concerns are being dismissed. Percocet provides some relief, but he is weary of its continued use. An upcoming appointment with Dr. Gutierres in Neurology is scheduled for 01/04/2025, who has previously suggested a referral to the [facility] due to the complexity of his case. Bilateral headaches are experienced, primarily located in his temples. CT scans and MRIs have been completed, and Relpax has not been tried. Physical therapy for benign positional vertigo was ineffective. Regular meals are maintained, and approximately eight hours of sleep per night is attempted. Avoiding common headache triggers such as caffeine, coffee, chocolate, tea, Pepsi, nitrates, meat, hams, cole, sausage, hot dogs, and aged cheese has not been successful. Aimovig injections were tried without success, and Fioricet has not yet been tried. Topamax has not been tried. Toradol provides relief for approximately seven to eight hours. The MRI of the brain ordered last fall has not yet been completed due to issues with the face mask. Magnesium supplements were tried without success, and CoQ10 has not yet been tried. - Onset: Waking up at night with severe migraine. - Location: Bilateral headaches, primarily in temples. - Duration: Persistent, requiring daily emergency room visits. - Character: Severe migraines, dizziness, frustration with ineffective treatments. - Alleviating/Aggravating Factors: Prednisone ineffective, Toradol provides relief for 7-8 hours, avoiding common headache triggers unsuccessful. - Timing: Mild dizziness present this morning, residual effect of Lyrica taken the previous night. - Severity: Severe enough to cause crying, hospitalizations, and daily ER visits. Blood Glucose Management He reports that his blood glucose levels have been well-managed, with readings not exceeding 200, except for a recent reading of 230. His readings have ranged from 82 to 150, and he believes he is managing his condition effectively. - Severity: Well-managed, with readings ranging from 82 to 150, except for a recent reading of 230. I have reviewed and reconciled the history and medication list with the patient today. HISTORIES: PAST MEDICAL HISTORY: Past Medical History: Diagnosis Date Adrenal adenoma, left 12/30/2022 Age-related nuclear cataract, bilateral Bipolar disorder Carpal tunnel syndrome Cervical paraspinal muscle spasm Cholelithiasis Chronic sialoadenitis CKD (chronic kidney disease) stage 2, GFR 60-89 ml/min Disturbance of skin sensation ED (erectile dysfunction) Essential hypertension (CMS/HCC) SUKHJINDER (generalized anxiety disorder) (CMS/HCC) Gait abnormality History of colon polyps Hx of acute myocardial infarction (CMS/HCC) Hx of temporal arteritis Hyperlipidemia (CMS/HCC) Irritable bowel syndrome Lipodermatosclerosis Lymphedema of both lower extremities Migraine Morbid obesity (CMS/HCC) Multiple sclerosis, relapsing-remitting (CMS/HCC) Nuclear senile cataract 01/03/2021 Obstructive sleep apnea CODIE (obstructive sleep apnea) Peripheral neuropathy PLMD (periodic limb movement disorder) Polypharmacy Primary open angle glaucoma (POAG) of both eyes, mild stage Primary osteoarthritis involving multiple joints PTSD (post-traumatic stress disorder) (CMS/HCC) Spinal stenosis of cervical region Type 2 diabetes mellitus Varicose veins of lower limb Varicose veins Venous insufficiency Vitamin B12 deficiency Vitamin D deficiency SURGICAL HISTORY: Past Surgical History: Procedure Laterality Date ARTERY BIOPSY Left 08/26/2016 temporal artery biopsy. Excision painful vein lt mormonism ARTERY BIOPSY Right 03/11/2014 temporal artery biopsy [...] Name Age of Onset Cancer Mother anastacio gilbert COPD Mother anastacio gilbert Hypertension Father braulio chang Heart disease Father braulio chang Cancer Father braulio chang Diabetes Father braulio chang Liver disease Father braulio chang Alcohol abuse Father braulio chang Cancer Maternal Grandmother kae caceres MEDICATIONS: Current [...] 33G misc 1 Lancet , As needed meclizine (ANTIVERT) 25 mg, Oral, Every 8 hours PRN methocarbamol (ROBAXIN) 750-1,500 mg, Oral, 3 times daily PRN metoprolol succinate XL (TOPROL-XL) 100 mg, Oral, Daily NovoLOG FLEXPEN 60 Units, Subcutaneous, See admin instructions, Injection per sliding scale Nurtec 75 mg, Oral, Every other day nystatin (Mycostatin) 235640 UNIT/GM powder Four times daily Ocrevus 600 mg, Over 6 months oxyCODONE-acetaminophen (Percocet) 5-325 MG tablet 1-2 tablets, Oral, Every 6 hours PRN predniSONE (Deltasone) 10 MG tablet Take 6 tablets (60 mg) by mouth Daily for 3 days, THEN 4 tablets (40 mg) Daily for 3 days, THEN 3 tablets (30 mg) Daily for 3 days, THEN 2 tablets (20 mg) Daily for 3 days, THEN 1 tablet (10 mg) Daily for 3 days, THEN 0.5 tablets (5 mg) Daily for 4 days. pregabalin (LYRICA) 300 mg, Oral, 2 times daily rosuvastatin (CRESTOR) 20 mg, Oral, Nightly tadalafil (CIALIS) 20 mg, Oral, Daily Tresiba FlexTouch 100 Units, Subcutaneous, Nightly ALLERGIES: Allergies Allergen Reactions Duloxetine Hcl Other Reaction(s): intolerance Natalizumab Other Reaction(s): AOF Semaglutide Other Reaction(s): nausea and vomiting Other Reaction(s): Other: See Comments Chills, nightmares, diarrhea PHYSICAL EXAM: Visit Vitals Pulse 67 Ht 5' 9 Wt 348 lb SpO2 97% BMI 51.39 kg/m Smoking Status Former BSA 2.77 m BP Readings from Last 3 Encounters: 12/28/24 128/90 12/24/24 160/90 12/08/24 142/88 Wt Readings from Last 3 Encounters: 12/30/24 348 lb 12/28/24 356 lb 11/29/24 324 lb Physical Exam Results Labs - Sed rate: 57 (0-30 normal) - Glucose: 110 - Liver function: Elevated - Alk phos: Elevated - Cortisol: Normal ASSESSMENT AND PLAN: Assessment & Plan 1. Type 2 diabetes mellitus with diabetic neuropathy, with long-term current use of insulin (CMS/HCC) (Primary) Stable. Glucose readings range from 82 to 150, recent reading of 230. - Monitor blood glucose levels closely while on steroids. - Consider more concentrated insulin regimen. - Provide new paper with instructions on insulin dosing based on blood glucose levels. 2. Intractable migraine without aura and with status migrainosus (CMS/HCC) Chronic. Sed rate 57 (normal range: 0-30). Associated with prednisone use. - Discontinue prednisone due to dizziness and potential exacerbation of headaches. - Avoid combined use of steroids and Toradol to prevent gastrointestinal bleed. - Referral to [facility] for further evaluation and management. - Continue scheduled appointment with Dr. Roth on 01/04/2025. - Avoid common headache triggers such as caffeine, chocolate, and nitrates. - Consider trial of Fioricet or Fiorinal. - Scheduled appointment with Dr. Gutierres on 01/04/2025. -Start topamax 25 mg at hs and titrate up. -Script for fiorcet- one every 6 hours only as needed -Referral to [facility] - rjwnrzhyob-qxuwgnzqickrp-datlktnv 50-325-40 MG tablet; Take 1 tablet by mouth every 6 (six) hours if needed for headaches Use no more than 5/day, 10/week, 30/month. Dispense: 35 tablet; Refill: 0 - topiramate (Topamax) 25 MG tablet; Take 1 tablet (25 mg) by mouth Daily Dispense: 30 tablet; Refill: 0 3. Chronic neck pain- -Contributing to chronic headaches 4. Vitamin D deficiency --unable to afford daily vitamin D OTC - ergocalciferol (Vitamin D-2) 1.25 MG (87265 UT) capsule; Take 1 capsule (1.25 mg) by mouth 1 (one) time per week Dispense: 12 capsule; Refill: 3 Patient was seen and examined with Srikanth Hernandez CNP. History was confirmed and verified. Chaney elements of the exam were also completed. Assessment and plan were reviewed and addended as needed. Agree with documentation above. documented in this encounter [facility] 12-28-2024 History of Present illness Narrative Images from the original note were not included. Kerline Chang is a 54 y.o. male presents with chief complaint of Migraine (Patient is here with complaints of migraine, bilateral temporal pain, for 15 days. Neck pain, bilateral. Appointment with Dr Gutierres on 01/04/2025) HPI: History of Present Illness The patient is a 54-year-old male here for follow-up on migraines. Migraines He has been experiencing persistent pain for the past 15 days, which has necessitated hospital visits over the past 5 days. However, due to prolonged waiting times, he had to leave without receiving treatment on two occasions. He reports that his pain is primarily localized in his temples, with occasional sharp pain at a specific point on the right side. The pain often radiates to his eyes, intensifies, and then spreads to the entire frontal lobe and the top of his head. He also experiences neck pain and has undergone x-rays for the same. - Onset: Persistent pain for the past 15 days. - Location: Primarily in temples, occasional sharp pain on the right side, radiates to eyes, frontal lobe, and top of head. - Duration: Persistent for 15 days. - Character: Sharp pain, radiating pain, intensifying pain. - Alleviating/Aggravating Factors: Hospital visits, sublingual medication samples, Toradol identified as effective. - Radiation: Pain radiates to eyes, frontal lobe, and top of head. - Timing: Persistent pain, necessitating hospital visits over the past 5 days. - Severity: Severe enough to necessitate hospital visits and leave without treatment due to prolonged waiting times. Blood Sugar Levels He has been maintaining a record of his blood sugar levels since his last visit, noting that they have been fluctuating. He has an upcoming appointment with neurology on 01/04/2025 and a foot appointment scheduled for 01/05/2025. He has not yet scheduled an appointment with rheumatology. He was prescribed prednisone by Dr. Rojas over the weekend, which he plans to collect today. He has previously undergone biopsies for temporal arteritis and is considering another one. He has found some relief from his migraines with the use of sublingual medication samples provided during his last visit. He has identified Toradol as an effective treatment for his condition. I have reviewed and reconciled the history and medication list with the patient today. HISTORIES: PAST MEDICAL HISTORY: Past Medical History: Diagnosis Date Adrenal adenoma, left 12/30/2022 Age-related nuclear cataract, bilateral Bipolar disorder Carpal tunnel syndrome Cervical paraspinal muscle spasm Cholelithiasis Chronic sialoadenitis CKD (chronic kidney disease) stage 2, GFR 60-89 ml/min Disturbance of skin sensation ED (erectile dysfunction) Essential hypertension (CMS/HCC) SUKHJINDER (generalized anxiety disorder) (CMS/HCC) Gait abnormality History of colon polyps Hx of acute myocardial infarction (CMS/HCC) Hx of temporal arteritis Hyperlipidemia (CMS/HCC) Irritable bowel syndrome Lipodermatosclerosis Lymphedema of both lower extremities Migraine Morbid obesity (CMS/HCC) Multiple sclerosis, relapsing-remitting ([facility]) Nuclear senile cataract 01/03/2021 Obstructive sleep apnea CODIE (obstructive sleep apnea) Peripheral neuropathy PLMD (periodic limb movement disorder) Polypharmacy Primary open angle glaucoma (POAG) of both eyes, mild stage Primary osteoarthritis involving multiple joints PTSD (post-traumatic stress disorder) ([facility]) Spinal stenosis of cervical region Type 2 diabetes mellitus Varicose veins of lower limb Varicose veins Venous insufficiency Vitamin B12 deficiency Vitamin D deficiency SURGICAL HISTORY: Past Surgical History: Procedure Laterality Date ARTERY BIOPSY Left 08/26/2016 temporal artery biopsy. Excision painful vein lt mormonism ARTERY BIOPSY Right 03/11/2014 temporal artery biopsy [...] Name Age of Onset Cancer Mother anastacio gilbert COPD Mother anastacio gilbert Hypertension Father braulio chang Heart disease Father braulio chang Cancer Father braulio chang Diabetes Father braulio chang Liver disease Father braulio chang Alcohol abuse Father braulio chang Cancer Maternal Grandmother kae caceres MEDICATIONS: Current [...] See admin instructions, Injection per sliding scale Nurtec 75 mg, Oral, Every other day nystatin (Mycostatin) 280476 UNIT/GM powder Four times daily Ocrevus 600 mg, Over 6 months oxyCODONE-acetaminophen (Percocet) 5-325 MG tablet 1-2 tablets, Oral, Every 6 hours PRN predniSONE (Deltasone) 10 MG tablet Take 6 tablets (60 mg) by mouth Daily for 3 days, THEN 4 tablets (40 mg) Daily for 3 days, THEN 3 tablets (30 mg) Daily for 3 days, THEN 2 tablets (20 mg) Daily for 3 days, THEN 1 tablet (10 mg) Daily for 3 days, THEN 0.5 tablets (5 mg) Daily for 4 days. pregabalin (LYRICA) 300 mg, Oral, 2 times daily rosuvastatin (CRESTOR) 20 mg, Oral, Nightly tadalafil (CIALIS) 20 mg, Oral, Daily Tresiba FlexTouch 100 Units, Subcutaneous, Nightly ALLERGIES: Allergies Allergen Reactions Duloxetine Hcl Other Reaction(s): intolerance Natalizumab Other Reaction(s): AOF Semaglutide Other Reaction(s): nausea and vomiting Other Reaction(s): Other: See Comments Chills, nightmares, diarrhea PHYSICAL EXAM: Visit Vitals BP 128/90 (BP Location: Left arm, Patient Position: Sitting) Pulse 71 Ht 5' 9 Wt 356 lb SpO2 98% BMI 52.57 kg/m Smoking Status Former BSA 2.8 m BP Readings from Last 3 Encounters: 12/28/24 128/90 12/24/24 160/90 12/08/24 142/88 Wt Readings from Last 3 Encounters: 12/28/24 356 lb 11/29/24 324 lb 10/18/24 325 lb Physical Exam HENT: Mouth/Throat: Mouth: Mucous membranes are moist. Eyes: Extraocular Movements: Extraocular movements intact. Pupils: Pupils are equal, round, and reactive to light. Neck: Vascular: No carotid bruit. Cardiovascular: Rate and Rhythm: Normal rate and regular rhythm. Heart sounds: No murmur heard. No friction rub. No gallop. Pulmonary: Effort: Pulmonary effort is normal. Breath sounds: Normal breath sounds. Skin: General: Skin is warm and dry. Neurological: Mental Status: He is alert and oriented to person, place, and time. Psychiatric: Mood and Affect: Mood normal. Thought Content: Thought content normal. Results ASSESSMENT AND PLAN: Assessment & Plan 1. Type 2 diabetes mellitus with diabetic neuropathy, with long-term current use of insulin ([facility]) He had some improvement since Friday with a few readings in the 200's and one at 151. He will return for appt and will consider adjusting insulin SSC and possibly to double concentrated insulin. 2. History of migraine headaches (Primary) - Toradol provides some relief, but concurrent use with prednisone should be avoided due to increased risk of bleeding ulcers. - Prednisone prescribed by Dr. Rojas to be started today or tomorrow since he has not picked this up yet. No NSAIDs while taking. - Laboratory tests ordered today to reassess sedimentation rate. - If sedimentation rate is significantly elevated, a biopsy may be considered to rule out temporal arteritis. 3. Essential hypertension (CMS/HCC) BP better, he will continue to monitor at home and call if elevated. 4. Temporal pain Labs today. Consider Vascular referral if indicated. - CBC and differential; Future - Comprehensive metabolic panel; Future - Sedimentation rate, automated; Future - C-reactive protein; Future - Cortisol; Future - Metanephrines Plasma; Future - CBC and differential - Comprehensive metabolic panel - Sedimentation rate, automated - C-reactive protein - Cortisol - Metanephrines Plasma - ketorolac (Toradol) injection 60 mg Follow-up - Rheumatology appointment to be scheduled. - Neurology appointment on January 04. - Foot appointment on January 05. Patient was seen and examined with Adela Hutton CNP. History was confirmed and verified. Chaney elements of the exam were also completed. Assessment and plan were reviewed and addended as needed. Agree with documentation above. documented in this encounter [facility] 12-08-2024 Telephone encounter Note Sherwin Rosa is referring this patient to Dr. Sweet. I called Kerline on 12/06/24, to get him scheduled for an appointment with Dr. Sweet, and he told me he wasn't feeling well that day and that he would call us back to schedule. [facility] 12-08-2024 Miscellaneous Notes Sherwin Rosa is referring this patient to Dr. Sweet. I called Kerline on 12/06/24, to get him scheduled for an appointment with Dr. Sweet, and he told me he wasn't feeling well that day and that he would call us back to schedule. documented in this encounter [facility] 12-08-2024 History of Present illness Narrative Images from the original note were not included. Kerline Chang is a 54 y.o. male presents with chief complaint of Skin Infection (He developed rash under his breast and groin. ER visit 12/02 & 12/05, dx: fungal skin infection. Using Nystatin powder QID, prescribed Diflucan. Has odor, pain and drainage from site.) HPI: History of Present Illness The patient is a 54-year-old male who presents today for an acute visit. He has a rash on his body, which is quite painful. Painful Rash He reports the onset of a painful rash approximately 5 to 6 days ago, which has since spread to various parts of his body. The rash appears similar to a burn and is present on both sides of his body, including the area between his genitals and leg. He describes the rash as causing significant discomfort, disrupting his sleep, and inducing fatigue. He also reports experiencing dizziness and migraines. He has been managing the rash with soap and water during showers but has not been doing so frequently due to advice received at the hospital regarding the potential exacerbation of the rash by heat and moisture. He sought emergency care for the rash and had a swab taken at [facility] yesterday. He was prescribed Diflucan for 7 days, of which he has completed 2 days, and nystatin powder for topical application. However, he reports that the nystatin powder appears to exacerbate the condition. - Onset: Approximately 5 to 6 days ago. - Location: Various parts of the body, including the area between his genitals and leg. - Character: Painful rash similar to a burn. - Alleviating/Aggravating Factors: Managing with soap and water during showers; nystatin powder appears to exacerbate the condition. - Timing: Disrupting sleep and inducing fatigue. - Severity: Significant discomfort. Multiple Sclerosis He has an upcoming appointment with a neurologist on 01/04/2025 and is scheduled for an infusion for his multiple sclerosis (MS) tomorrow morning. He hopes this will alleviate his headaches, as they typically occur a month prior to his infusion. Due to the high cost of the infusions, he can only receive them twice a year. - Timing: Headaches typically occur a month prior to his infusion; infusions scheduled twice a year. - Severity: Significant enough to seek infusion treatment. Arthritis Spurs He recently received a cortisone injection in his right knee and is scheduled to consult with Dr. Sweet regarding surgical intervention for arthritis spurs. - Location: Right knee. - Alleviating Factors: Cortisone injection. - Timing: Scheduled consultation for surgical intervention. High Blood Sugar His blood sugar level was over 500, so he took 50 units of NovoLog, which brought it down to about 493. - Severity: Blood sugar level over 500. - Alleviating Factors: Took 50 units of NovoLog, which brought it down to about 493. I have reviewed and reconciled the history and medication list with the patient today. HISTORIES: PAST MEDICAL HISTORY: Past Medical History: Diagnosis Date Adrenal adenoma, left 12/30/2022 Age-related nuclear cataract, bilateral Bipolar disorder Carpal tunnel syndrome Cervical paraspinal muscle spasm Cholelithiasis Chronic sialoadenitis CKD (chronic kidney disease) stage 2, GFR 60-89 ml/min Disturbance of skin sensation ED (erectile dysfunction) Essential hypertension (CMS/HCC) SUKHJINDER (generalized anxiety disorder) (CMS/HCC) Gait abnormality History of colon polyps Hx of acute myocardial infarction (CMS/HCC) Hx of temporal arteritis Hyperlipidemia (CMS/HCC) Irritable bowel syndrome Lipodermatosclerosis Lymphedema of both lower extremities Migraine Morbid obesity (CMS/HCC) Multiple sclerosis, relapsing-remitting (CMS/[facility]) Nuclear senile cataract 01/03/2021 Obstructive sleep apnea CODIE (obstructive sleep apnea) Peripheral neuropathy PLMD (periodic limb movement disorder) Polypharmacy Primary open angle glaucoma (POAG) of both eyes, mild stage Primary osteoarthritis involving multiple joints PTSD (post-traumatic stress disorder) ([facility]) Spinal stenosis of cervical region Type 2 diabetes mellitus Varicose veins of lower limb Varicose veins Venous insufficiency Vitamin B12 deficiency Vitamin D deficiency SURGICAL HISTORY: Past Surgical History: Procedure Laterality Date ARTERY BIOPSY Left 08/26/2016 temporal artery biopsy. Excision painful vein lt mormonism ARTERY BIOPSY Right 03/11/2014 temporal artery biopsy COLONOSCOPY 11/27/2018 CYST REMOVAL Excision of benign cyst back of neck, [facility] KNEE SURGERY arthroscopic knee surgery SOCIAL HISTORY: Social History Tobacco Use Smoking status: Some Days Types: Cigarettes Start date: 1989 Passive exposure: Past Smokeless tobacco: Never Tobacco comments: 5 or less cigs a day Vaping Use Vaping status: Never Used Substance Use Topics Alcohol use: Never Comment: Caffine intake: Coke Zero, 2-3 cans daily Drug use: Yes Types: Marijuana Comment: Daily Depression: Not at risk (02/25/2024) PHQ-2 PHQ-2 Score: 0 FAMILY HISTORY: Family History Problem Relation Name Age of Onset Cancer Mother anastacio gilbert COPD Mother anastacio gilbert Hypertension Father braulio chang Heart disease Father braulio chang Cancer Father braulio chang Diabetes Father braulio chang Liver disease Father braulio chang Alcohol abuse Father braulio chang Cancer Maternal Grandmother kae caceres MEDICATIONS: Current [...] instructions, Injection per sliding scale nystatin (Mycostatin) 555182 UNIT/GM powder Four times daily Ocrevus 600 [...] nightmares, diarrhea PHYSICAL EXAM: Visit Vitals BP 142/88 (BP Location: Left arm, Patient Position: Sitting) Pulse 77 SpO2 98% Smoking Status Some Days BP Readings from Last 3 Encounters: 12/08/24 142/88 11/29/24 142/78 10/18/24 166/62 Wt Readings from Last 3 Encounters: 11/29/24 324 lb 10/18/24 325 lb 10/12/24 334 lb Physical Exam Results ASSESSMENT AND PLAN: Assessment & Plan 1. Candidiasis, intertrigo -Likely due to elevated blood glucose levels, exacerbated by a recent cortisone injection. Appears more yeasty in some areas. Currently using nystatin powder, which worsens the condition. Swab taken at [facility], results pending. Currently on Diflucan (fluconazole) for 2 days. - Use a blow dryer on a low setting to keep the area dry. - Apply a 4 x 4 gauze to prevent friction. 2. Rash (Primary) -has appt with [facility] tomorrow and advised to defer to their treatment plan due to the severity and skin breakdown 3. Skin breakdown -as above 4. Skin excoriation -as a judy 5. Elevated blood glucose levels: Acute. - Levels significantly elevated, reaching over 500 mg/dL. Administered 50 units of NovoLog, reducing the level to about 493 mg/dL. May have contributed to the rash. - Monitor blood glucose levels. . Knee pain: Chronic. - Received a cortisone shot in the right knee. Scheduled to see Dr. Sweet for potential surgery to address arthritis spurs. - Discussed Voltaren gel as a possible treatment. - Monitor knee pain and response to treatments. 7. Multiple sclerosis: Chronic. - Infusion scheduled for tomorrow morning, typically takes 4 hours. Experiences migraines, especially a month before infusions. Frequency of infusions limited to twice a year due to cost. - Monitor symptoms and effectiveness of infusions. Follow-up - Reschedule appointment with neurologist. Patient was seen and examined with Srikanth Hernandez CNP. History was confirmed and verified. Chaney elements of the exam were also completed. Assessment and plan were reviewed and addended as needed. Agree with documentation above. documented in this encounter [facility] 12-08-2024 Hospital Discharge instructions Additional Instructions Rest. Push fluids. Take [id number] Tylenol as needed for any mild to moderate pain or discomfort. Take the Percocet you have as prescribed by your PCP. Continue with the antibiotic for your skin infection. Follow-up with your primary care provider in the next 2 to 3 days. Return here if symptoms persist or worsen. [facility] Work Phone: 12-02-2024 History of Present illness Narrative Associated Order(s): L Inj/Asp: R knee; Cast / Splint / Fx Post-Procedure Diagnose(s): Arthritis of right knee; Loose body of right knee; Knee instability, right Images from the original note were not included. Orthopedic Office note: NAME: Kerline Chang : 1970 (EST PT) - RECHECK (R) KNEE ; S/P CORTISONE INJ 09/02/24 (3 MONTHS, 2 DAYS) - HERE FOR POSSIBLE INJECTION XRAY 09/02/24 IN [facility] XRAY 05/15/24, 04/17/24 @[facility] [place] [place] CORTISONE INJ 09/02/24 S/P CORTISONE INJ - NO RELIEF. ADMITS LATERAL / MEDIAL THROBBING DISCOMFORT. DENIES RADIATION. DENIES SWELLING / WEAKNESS. STAIRS ARE IMPOSSIBLE. DENIES STIFFNESS / TIGHTNESS. ADMITS LOCKING UP, THEN POPPING AND PAIN. LIMITED ROM D/T PAIN. INTERMITTENTLY WAKING HS. DENIES ICING / ELEVATING. ADMITS USING MOOSE BANDAGE WRAP DAILY. DENIES TOPICALS. PERCOCET (DR. ROJAS) / IBU 800 / METHOCARBAMOL PRN. Physical Exam Knee Musculoskeletal Exam Gait Antalgic: right Limp: right Inspection Leg length disparity: no discrepancy Right Erythema: none Effusion: mild Edema: none Ecchymosis: none Deformity: none Alignment: normal Palpation Right Increased warmth: none Masses: none Tenderness: present Lateral joint line: moderate Lateral retinaculum: mild Medial joint line: moderate Medial retinaculum: mild Range of Motion Right Right knee range of motion is normal and full. Active extension: 0 Passive extension: 0 Active flexion: 115 Passive flexion: 120 Range of motion additional comments: + PAIN ON TERMINAL FLEXION AND EXTENSION Strength Right Right knee strength is normal. Extension: 4+/5. Extension is affected by pain. Flexion: 4+/5. Flexion is affected by pain. Instability Right Anterior drawer: normal Medial Ti test: positive Lateral Ti test: positive Instability additional comments: Mild pain lcl and slight laxity, firm end point. Neurovascular Right Right knee neurovascular exam is normal. Pulses - PT: normal Posterior tibial: 2+ Capillary refill: warm and well-perfused Special Signs Right Right knee special signs are normal. Straight leg raise: normal Patellar apprehension: none General Constitutional: appears stated age Labored breathing: no Psychiatric: normal mood and affect Neurological: alert Skin: intact Lymphadenopathy: none Orders Placed This Encounter Procedures L Inj/Asp This order was created via procedure documentation Cast / Splint / Fx This order was created via procedure documentation L Inj/Asp: R knee on 12/02/2024 10:45 [...] discussed. Consent was given by the patient. Cast / Splint / Fx Date/Time: 12/02/2024 10:47 AM Performed by: RICKY Palomo Authorized by: RICKY Palomo Consent given by: patient and parent Timeout: Immediately prior to procedure a time out was called to verify the correct patient, procedure, equipment, applications support specialist and site/side marked as required Injury Location [...] the device was suitable and not substandard. Results - Imaging (X-rays of bilateral knees on 11/04/2024): - No acute fracture - Bilateral marginal spurring - Right posterior intra-articular bodies for degenerative changes ICD-10-CM 1. Acute pain of right knee M25.561 2. Arthritis of right knee M17.11 3. Knee instability, right M25.361 4. Loose body of right knee M23.41 Assessment & Plan Right knee pain. Recurrent symptoms were discussed. He has a history of MS and was previously scheduled for knee arthroscopy but did not follow through. He has had recurrent pain. The loose bodies noted on his x-rays were discussed. He is reconsidering potential surgical intervention. He is agreeable to a cortisone injection today for pain relief. He is placed in a hinged knee brace today for support with his MS flares. He is encouraged to use a walker to prevent falls. He would like to meet with Dr. Sweet to discuss potential surgical intervention given recurrent symptoms and only 1 month relief with the last cortisone injection. He presents with his mother, whom he is living with, thankful and had no further concerns or questions. He noted some improved stability with the use of the hinged knee brace. Migraines. He admits to suffering from migraines and had recent labs done with his family doctor. He sees Dr. Gutierres for neurology. PROCEDURE Procedure Performed Cortisone injection for pain relief Questions answered in laymen terms at the bedside. The diagnosis, home exercise plan and any ongoing restrictions/ recommendations reviewed. If unable to be reached in office, I recommend evaluation at nearest Emergency Room if any symptoms worsened or new symptoms develop for requiring urgent evaluation. Visit was preformed using [employer]tugboat [employer] speech recognition. documented in this encounter [facility] 11-29-2024 History of Present illness Narrative Images from the original note were not included. Kerline Chang is a 54 y.o. male presents with chief complaint of 6 week f/u (At last OV Pt was referred to rheumatology and a bone scan was ordered due to elevated alk phos level. Bone scan completed 11/04. Rheumatology appointment scheduled 12/15/2024 at [facility]. /He has been seen at [facility] [place] [place] ER several times recently due to generalized pain and headache. Requesting Toradol Injection. Appointment scheduled with Sherwin Rosa 12/02 for bilateral knee pain. ) HPI: History of Present Illness The patient is a 54-year-old male who presents today for his routine follow-up. He has been to the emergency room numerous times, approximately 8 to 12. Severe Headaches Severe headaches are reported, which have necessitated multiple emergency room visits. The headaches radiate from the side of his head to his jaw, neck, and shoulders. An appointment with neurology is scheduled for 01/04/2025. Currently, he is seeking a Toradol injection for his headache, despite its limited efficacy, as it is the only available option. Dilaudid has been used in the hospital setting due to the ineffectiveness of Toradol. His current medication regimen includes Xanax, which is taken as needed, amitriptyline 25 mg daily, Elavil, marijuana use as frequently as possible, Flexeril, and Robaxin as often as possible. He has exhausted his supply of Percocet and is requesting a refill. Lyrica 300 mg is also part of his medication regimen. - Onset: Severe headaches necessitating multiple emergency room visits. - Location: Radiates from the side of his head to his jaw, neck, and shoulders. - Character: Severe headaches. - Alleviating/Aggravating Factors: Seeking Toradol injection despite limited efficacy; Dilaudid used in hospital setting. - Severity: Severe enough to require multiple emergency room visits and various medications. Rheumatoid Arthritis An appointment with rheumatology is scheduled for 12/15/2024 for rheumatoid arthritis. Leg Pain An appointment with Sherwin De Paz is scheduled for 12/02/2024 for leg pain. Medication Management No recent blood work has been done. Crestor has been discontinued, although the exact duration since the last dose is not recalled. SOCIAL HISTORY He uses marijuana as often as possible. I have reviewed and reconciled the history and medication list with the patient today. HISTORIES: PAST MEDICAL HISTORY: Past Medical History: Diagnosis Date Adrenal adenoma, left 12/30/2022 Age-related nuclear cataract, bilateral Bipolar disorder Carpal tunnel syndrome Cervical paraspinal muscle spasm Cholelithiasis Chronic sialoadenitis CKD (chronic kidney disease) stage 2, GFR 60-89 ml/min Disturbance of skin sensation ED (erectile dysfunction) Essential hypertension (CMS/HCC) SUKHJINDER (generalized anxiety disorder) (CMS/HCC) Gait abnormality History of colon polyps Hx of acute myocardial infarction (CMS/HCC) Hx of temporal arteritis Hyperlipidemia (CMS/HCC) Irritable bowel syndrome Lipodermatosclerosis Lymphedema of both lower extremities Migraine Morbid obesity (CMS/HCC) Multiple sclerosis, relapsing-remitting (CMS/HCC) Nuclear senile cataract 01/03/2021 Obstructive sleep apnea CODIE (obstructive sleep apnea) Peripheral neuropathy PLMD (periodic limb movement disorder) Polypharmacy Primary open angle glaucoma (POAG) of both eyes, mild stage Primary osteoarthritis involving multiple joints PTSD (post-traumatic stress disorder) (CMS/HCC) Spinal stenosis of cervical region Type 2 diabetes mellitus Varicose veins of lower limb Varicose veins Venous insufficiency Vitamin B12 deficiency Vitamin D deficiency SURGICAL HISTORY: Past Surgical History: Procedure Laterality Date ARTERY BIOPSY Left 08/26/2016 temporal artery biopsy. Excision painful vein lt mormonism ARTERY BIOPSY Right 03/11/2014 temporal artery biopsy COLONOSCOPY 11/27/2018 CYST REMOVAL Excision of benign cyst back of neck, Friedman KNEE SURGERY arthroscopic knee surgery SOCIAL HISTORY: Social History Tobacco Use Smoking status: Some Days Types: Cigarettes Start date: 1989 Passive exposure: Past Smokeless tobacco: Never Tobacco comments: 5 or less cigs a day Vaping Use Vaping status: Never Used Substance Use Topics Alcohol use: Never Comment: Caffine intake: Coke Zero, 2-3 cans daily Drug use: Yes Types: Marijuana Comment: Daily Depression: Not at risk (02/25/2024) PHQ-2 PHQ-2 Score: 0 FAMILY HISTORY: Family History Problem Relation Name Age of Onset Cancer Mother anastacio gilbert COPD Mother anastacio gilbert Hypertension Father braulio chang Heart disease Father braulio chang Cancer Father braulio chang Diabetes Father braulio chang Liver disease Father braulio chang Alcohol abuse Father braulio chang Cancer Maternal Grandmother kae caceres MEDICATIONS: Current [...] daily ergocalciferol (VITAMIN D-2) 1.25 mg, Oral, 2 times weekly ibuprofen 800 mg, Oral, 3 times daily PRN irbesartan (Avapro) 300 MG tablet TAKE 1 TABLET BY MOUTH DAILY Lancets Micro Thin 33G misc 1 Lancet , As needed methocarbamol (ROBAXIN) 750-1,500 mg, Oral, 3 times daily PRN metoprolol succinate XL (TOPROL-XL) 100 mg, Oral, Daily NovoLOG FLEXPEN 60 Units, Subcutaneous, See admin instructions, Injection per sliding scale Ocrevus 600 mg, Over 6 months oxyCODONE-acetaminophen (Percocet) 5-325 MG tablet 1-2 tablets, Oral, Every 6 hours PRN pregabalin (LYRICA) 300 mg, Oral, 2 times daily rosuvastatin (CRESTOR) 10 mg, Oral, Nightly tadalafil (CIALIS) 20 mg, Oral, Daily Tresiba FlexTouch 100 Units, Subcutaneous, Nightly triamcinolone (Kenalog) 0.1 % cream 1 application , Topical, 2 times daily PRN, Avoid face and groin. ALLERGIES: Allergies Allergen Reactions Duloxetine Hcl Other Reaction(s): intolerance Natalizumab Other Reaction(s): AOF Semaglutide Other Reaction(s): nausea and vomiting Other Reaction(s): Other: See Comments Chills, nightmares, diarrhea PHYSICAL EXAM: Visit Vitals BP 142/78 (BP Location: Left arm, Patient Position: Sitting) Pulse 73 Ht 5' 9 Wt 324 lb SpO2 96% BMI 47.85 kg/m Smoking Status Some Days BSA 2.68 m BP Readings from Last 3 Encounters: 11/29/24 142/78 10/18/24 166/62 10/12/24 (!) 142/100 Wt Readings from Last 3 Encounters: 11/29/24 324 lb 10/18/24 325 lb 10/12/24 334 lb Physical Exam Constitutional: General: He is in acute distress. Appearance: He is obese. HENT: Head: Normocephalic. Eyes: Extraocular Movements: Extraocular movements intact. Neck: Vascular: No carotid bruit. Cardiovascular: Rate and Rhythm: Normal rate. Heart sounds: Normal heart sounds. Pulmonary: Breath sounds: Normal breath sounds. Abdominal: General: Abdomen is protuberant. Bowel sounds are normal. Tenderness: There is no abdominal tenderness. Musculoskeletal: General: Tenderness present. No swelling. Right lower leg: No edema. Left lower leg: No edema. Skin: General: Skin is warm and dry. Coloration: Skin is pale. Comments: Several tatoos and dry skin patches Psychiatric: Mood and Affect: Affect is angry and tearful. Behavior: Behavior is uncooperative and agitated. Results ASSESSMENT AND PLAN: Assessment & Plan 1. Type 2 diabetes mellitus with diabetic neuropathy, with long-term current use of insulin ([facility]) (Primary) -noncompliant with treatment -overdue for A1C - Comprehensive metabolic panel; Future - Hemoglobin a1c with eag; Future 2. Stage 1 chronic kidney disease - Comprehensive metabolic panel; Future - CBC and differential; Future -Due for labs 3. Essential hypertension ([facility]) -well controlled Pt. is to limit sodium to 1800 mg per day. Avoid canned soups & vegetables, boxed foods, like rice & frozen TV dinners. Do not add salt, garlic or onion salt to your food. Use Mrs. Peña which has no sodium. High/Low sodium list given to patient. 4. Psoriatic arthritis ([facility]) -upcoming appt with F rheumatology on 12-15-24 5. MS (multiple sclerosis) ([facility]) -follows with neurology -Next appt on 01-04-25 -Advised that he needs to follow with them re: headaches 6. Generalized anxiety disorder ([facility]) -takes prn xanax 7. Primary osteoarthritis involving multiple joints -states he is in a great deal of pain -not taking Crestor -Torordol 60 mg IM now 8. Vitamin D deficiency -advised to take 2,000 international units of vitamin D daily 9. Polyneuropathy associated with underlying disease ([facility]) -takes amitriptyline 25 mg daily 10. Cervicogenic headache -chronic, advised to discuss with neurology -Taking robaxin -Frequent ER visits for Dilaudid -On perccocet - Reports severe headaches persisting for 7-8 days, radiating from the side of the head to the jaw, neck, and shoulders. - Currently using Toradol, amitriptyline 25 mg daily, Flexeril, Robaxin, and Lyrica 300 mg; marijuana use as often as possible. - Advised to continue current medications and take Xanax as needed for anxiety related to headaches. - Toradol injection to be administered today. 11. Elevated alkaline phosphatase level - Gamma GT; Future - Alkaline phosphatase, isoenzymes; Future - Phosphorus; Future - PTH, intact; Future 12. Prostate cancer screening - PSA; Future 13. Vitamin B12 deficiency 14. Mixed hyperlipidemia ([facility]) - Lipid panel; Future 15. Hyperparathyroidism, unspecified ([facility]) - Vitamin D 25 hydroxy Total; Future 16. Spinal stenosis in cervical region -has pain in neck which may be cause of his headaches 17. Leg pain. - Reports significant pain from knee to ankle. - Appointment with Sherwin De Paz scheduled for 12/02/2024 for further evaluation. - Consideration of a steroid shot, with evaluation of its impact on diabetes. Follow-up - Neurology appointment scheduled for 01/04/2025 for further evaluation. Patient was seen and examined with Srikanth Hernandez CNP. History was confirmed and verified. Chaney elements of the exam were also completed. Assessment and plan were reviewed and addended as needed. Agree with documentation above. documented in this encounter [facility] 11-05-2024 Telephone encounter Note Xray neg for fracture and pt received toradol and eloped from ER.. I would recommend He schedule with Dr. Sweet to discuss other treatment options for his knee. Currently on percocect and complicated history with MS I feel he needs to see ortho surgeon or go back to [facility] with multi specialty group for optimal care, [facility] Work Phone: 11-05-2024 Miscellaneous Notes Xray neg for fracture and pt received toradol and eloped from ER.. I would recommend He schedule with Dr. Sweet to discuss other treatment options for his knee. Currently on percocect and complicated history with MS I feel he needs to see ortho surgeon or go back to [facility] with multi specialty group for optimal care, Received ER Visit Notes Also XR RT Knee Report Kerline called and said that he fell again yesterday 11/04/2024 said that he went to [facility] and is in extreme pain still they gave him pain meds in a shot. Said that it lasted until 3am and then he woke up and was unable to sleep. I have sent off for visit notes and any xray's or xray reports. documented in this encounter [facility] 11-05-2024 Telephone encounter Note Received ER Visit Notes Also XR RT Knee Report [facility] 11-05-2024 Telephone encounter Note Kerline called and said that he fell again yesterday 11/04/2024 said that he went to [facility] and is in extreme pain still they gave him pain meds in a shot. Said that it lasted until 3am and then he woke up and was unable to sleep. I have sent off for visit notes and any xray's or xray reports. [facility] 11-04-2024 Nuclear medicine Diagnostic study note [facility] [place] [address] Nuclear Medicine Report Signed Patient: Kerline Chang MR#: [id number] : 1970 Acct:[id number] Age/Sex: 54 / M ADM Date: 5 Loc: [place] Room: Type: [facility] Attending Dr: Nisa Rojas MD Copies to: MD Roque Lobo Jeffrey S DO~ Ordering Provider: Nisa Rojas MD Date of Service: 11/04/24 [place] bone scan whole body: R74.8 Nuclear medicine [...] suggest metastasis. NM/NM bone scan whole body IMPRESSION: Similar degenerative uptake.. No acute bony findings. Impression dictated by: Delio Nevarez M.D.11/04/2024 4:08 PM Dictation Location: [place] [address] Transcribed By: [facility] 11/04/24 1608 Dictated By: Delio Nevarez DO 11/04/24 1606 Signed By: 11/04/24 1608 [facility] 10-28-2024 Telephone encounter Note His arm is better after taking Ibuprofen, He does need refill on percocet. Dr Doe refused to take him because years ago he was discharged. RX loaded [facility] 10-28-2024 Miscellaneous Notes His arm is better after taking Ibuprofen, He does need refill on percocet. Dr Doe refused to take him because years ago he was discharged. RX loaded We can order an x-ray of the portion of the arm that is hurting to see if anything is broken. There isn't anything stronger than Percocet that I prescribe. He can take 2 tabs every 6 hours as needed. Try cold or heat and see if either of these help ease the pain. Did Dr. Doe agree to see him and does he have an appt there? Does he need a refill of Percocet? Patient called to report he fell last night landing on both knees and tried to catch himself hurting his right arm. Percocet is not helping his pain. Please advise documented in this encounter [facility] 10-28-2024 Telephone encounter Note We can order an x-ray of the portion of the arm that is hurting to see if anything is broken. There isn't anything stronger than Percocet that I prescribe. He can take 2 tabs every 6 hours as needed. Try cold or heat and see if either of these help ease the pain. Did Dr. Doe agree to see him and does he have an appt there? Does he need a refill of Percocet? [facility] 10-28-2024 Telephone encounter Note Patient called to report he fell last night landing on both knees and tried to catch himself hurting his right arm. Percocet is not helping his pain. Please advise [facility] 10-18-2024 History of Present illness Narrative Images from the original note were not included. [address] , [address] [facility], [address] P: [phone] F: [phone] HPI Historian of HPI: patient Kerline Chang is a 54 y.o. male who presents today to the Urgent Care with the following complaints and denials which have been present for 2 day(s). C/O Denies Symptom Comments [x] [] Headache Location: temporal [] [x] Worst headache of their life [] [x] nausea [] [x] vomiting [x] [] dizziness [x] [] Hx of headaches/migraines [x] [] Dx with Migraines in the past [] [x] Loss of appetite [] [x] Memory difficulties [] [x] Head Injury [] [x] auras [] [x] Blurry vision [] [x] Double vision Additional Comments: pt has taken muscle relaxer and ibuprofen. OTC medication without relief. Pt states he [facility]. Pt states Dr. Rojas nurse told him to come here. pt states he drove past [facility] looked busy. Pt states that this not the worse headache. Pt states Compazine, Benadryl and Toradol is given at [facility] visits. Pt states he took his blood pressure medicine about a half hour ago. ROS A complete system ROS was performed and negative aside from the pertinent positives noted in the HPI and PE. Visit Vitals BP 166/62 Pulse 64 Temp 92.4 F Resp 20 Wt 325 lb SpO2 96% BMI 47.99 kg/m Smoking Status Some Days BSA 2.68 m PHYSICAL EXAM Physical Exam Vitals reviewed. Constitutional: General: He is not in acute distress. Appearance: Normal appearance. HENT: Head: Normocephalic and atraumatic. Right Ear: Hearing, tympanic membrane, ear canal and external ear normal. Left Ear: Hearing, tympanic membrane, ear canal and external ear normal. Nose: Nose normal. Mouth/Throat: Lips: Bud. Mouth: Mucous membranes are moist. Pharynx: Oropharynx is clear. Eyes: Extraocular Movements: Extraocular movements intact. Conjunctiva/sclera: Conjunctivae normal. Pupils: Pupils are equal, round, and reactive to light. Cardiovascular: Rate and Rhythm: Normal rate and regular rhythm. Pulses: Normal pulses. Heart sounds: Normal heart sounds. Pulmonary: Effort: Pulmonary effort is normal. No respiratory distress. Breath sounds: No wheezing, rhonchi or rales. Musculoskeletal: General: Normal range of motion. Cervical back: Normal range of motion and neck supple. Skin: General: Skin is warm and dry. Findings: No rash. Neurological: General: No focal deficit present. Mental Status: He is alert and oriented to person, place, and time. GCS: GCS eye subscore is 4. GCS verbal subscore is 5. GCS motor subscore is 6. Cranial Nerves: Cranial nerves 2-12 are intact. Sensory: Sensation is intact. Motor: Motor function is intact. Coordination: Coordination is intact. Gait: Gait is intact. Psychiatric: Mood and Affect: Mood normal. TREATMENT PLAN 1. Other migraine without status migrainosus, not intractable (CMS/HCC) (Primary) Dx and tx discussed. Sent here by PCP office. Pt reports hx of frequent migraines for which he normally goes to [facility] ER for. He states, They give me Toradol, Compazine, and Benadryl there, but I have Benadryl at home and I am not nauseated . Renal function reviewed and stable. Pt given 60 mg of Toradol today in UC. - ketorolac (Toradol) injection 60 mg documented in this encounter [facility] 09-22-2024 History of Present illness Narrative Images from the original note were not included. Chief Complaint: MS Jnaey Chang is a 54 y.o. male. History of Present Illness The patient presents today for follow up for multiple sclerosis. Patient states he has been having a few headaches. He said he was also diagnosed with rheumatoid arthritis. They are temporal and occipital. He takes Robaxin and ibuprofen and also oxycodone with relief. He reports balance issues as well. If he bends over or shakes his head to quick he will fall. He is still receiving Ocrevus but is unsure when his last one was or when his next one is. Review of Systems Constitutional: Negative for appetite change, chills, fatigue, fever and unexpected weight change. HENT: Negative for trouble swallowing and voice change. Eyes: Positive for bilateral blurry vision. Negative for double vision or loss of vision Respiratory: Negative for cough, shortness of breath and wheezing. Cardiovascular: Negative for chest pain and palpitations. Gastrointestinal: Positive for diarrhea (chronic - the patient states he is following with gastroenterology for this). Negative for abdominal pain, blood in stool, nausea and vomiting. Musculoskeletal: Negative for arthralgias, gait problem and myalgias. Neurological: Positive for headaches. Negative for dizziness, tremors, seizures, syncope, facial asymmetry, speech difficulty, weakness, light-headedness and numbness. Psychiatric/Behavioral: Negative for confusion, hallucinations, self-injury and suicidal ideas. The patient is nervous/anxious. Past Medical History: Diagnosis Date Adrenal adenoma, left 12/30/2022 Age-related nuclear cataract, bilateral Bipolar disorder (CMS/HCC) Carpal tunnel syndrome Cervical paraspinal muscle spasm Cholelithiasis Chronic sialoadenitis CKD (chronic kidney disease) stage 2, GFR 60-89 ml/min Disturbance of skin sensation ED (erectile dysfunction) Essential hypertension (CMS/HCC) SUKHJINDER (generalized anxiety disorder) (CMS/HCC) Gait abnormality History of colon polyps Hx of acute myocardial infarction (CMS/HCC) Hx of temporal arteritis Hyperlipidemia (CMS/HCC) Irritable bowel syndrome Lipodermatosclerosis Lymphedema of both lower extremities Migraine (CMS/HCC) Morbid obesity (CMS/HCC) Multiple sclerosis, relapsing-remitting (CMS/HCC) Nuclear senile cataract 01/03/2021 Obstructive sleep apnea CODIE (obstructive sleep apnea) Peripheral neuropathy PLMD (periodic limb movement disorder) Polypharmacy Primary open angle glaucoma (POAG) of both eyes, mild stage (CMS/HCC) Primary osteoarthritis involving multiple joints PTSD (post-traumatic stress disorder) (CMS/HCC) Spinal stenosis of cervical region Type 2 diabetes mellitus (CMS/HCC) Varicose veins of lower limb Varicose veins Venous insufficiency Vitamin B12 deficiency Vitamin D deficiency Past Surgical History: Procedure Laterality Date ARTERY BIOPSY Left 08/26/2016 temporal artery biopsy. Excision painful vein lt mormonism ARTERY BIOPSY Right 03/11/2014 temporal artery biopsy COLONOSCOPY 11/27/2018 CYST REMOVAL Excision of benign cyst back of neck, [facility] KNEE SURGERY arthroscopic knee surgery Family History Problem Relation Name Age of Onset Cancer Mother anastacio gilbert COPD Mother anastacio gilbert Hypertension Father braulio chang Heart disease Father braulio chang Cancer Father braulio chang Diabetes Father braulio chang Liver disease Father braulio chang Alcohol abuse Father braulio chang Cancer Maternal Grandmother kae caceres Social History Tobacco Use Smoking status: Some Days Types: Cigarettes Start date: 1989 Passive exposure: Past Smokeless tobacco: Never Tobacco comments: 5 or less cigs a day Substance Use Topics Alcohol use: Never Comment: Caffine intake: Coke Zero, 2-3 cans daily Allergies: Duloxetine hcl, Natalizumab, and Semaglutide Vitals: 09/22/24 1509 BP: 152/88 Pulse: 68 SpO2: 96% Body mass index is 49.41 kg/m . weight: 334 lb 9.6 oz Neurologic exam: Mental status and general appearance: Awake and alert with unlabored respirations. Oriented to person, place, and time. Recent and remote memory are primarily intact. Speech is clear and fluent without aphasia. Speech is non-dysarthric. Attention and concentration are mildly impaired. Fund of knowledge is appropriate for level of education. Cranial nerves: CN II: Visual acuity is normal. Visual elam full to confrontation. CN III, IV, : Pupils are equal, round, and reactive to light. Extraocular movements intact. No ptosis present. CN V: Facial sensation is normal. CN VII: Full and symmetric facial movement. CN VIII: Hearing is normal to finger rub bilaterally. CN IX and X: Palate elevates symmetrically. CN XI: Shoulder shrug is normal bilaterally. CN XII: Tongue is midline without atrophy or fasciculation. Motor: RUE strength deltoid , biceps , triceps , wrist extensors , wrist flexor , and adapted physical education teacher strength 5/5. LUE strength deltoid , biceps , triceps , wrist extensors , wrist flexor , and adapted physical education teacher strength 5/5. RLE strength iliopsoas, quadriceps, tibialis anterior, plantar flexion, and dorsiflexion strength 5/5. LLE strength iliopsoas, quadriceps, tibialis anterior, plantar flexion, and dorsiflexion strength 5/5. Tone and bulk are normal. Sensory: Sensation is intact to light touch throughout all four extremities. Sensation is intact to temperature in all extremities. Reflexes: RUE biceps reflex 1+ , brachioradialis reflex 1+. LUE biceps reflex 1+ , brachioradialis reflex 1+. RLE Knee reflex 0. LLE Knee reflex 0. Coordination: [id number] testing normal. Rapid alternating movements normal. Gait: Steady. Review and summary of old records: I reviewed the patient's Emergency Department (ED) note from [facility] [place] on 05/04/24. The patient presented to the ED on that date for worsening headache, neuro symptoms, and fall with knee pain. Per ED note, the patient was not ataxic during their exam and had a normal neurologic examination. He was administered medication for his headache and then requested to leave prior to any work up (including CT of the brain) being completed. Labs at [facility] [place] on 02/25/24: CMP unremarkable aside from sodium 134, potassium 5.2, and alk phos 176. Vitamin D 25-OH 24.6 (low). CBC generally unremarkable. IgG 989. Hemoglobin A1c 12.5% - patient to address with primary care provider. MRI of the cervical spine without contrast on 03/25/2023: No cord compression or cord signal abnormality. Multiple level degenerative changes. MRI of the brain and MR angiogram of the head without contrast on 03/11/2023: Moderate amount of scattered white matter disease likely related to diagnosis of MS. No active enhancement or demyelination. No acute intracranial process. Labs from 12/09/2022: CBC unremarkable ALC 1300, CMP unremarkable, Hgb A1C 11.7% Labs from 05/01/2022: CBC unremarkable with ALC 1200; CMP with REINIER; Hepatitis panel negative; IgG 876, IgM 51; VZV with IgG immunity; JCV negative; HIV nonreactive MRI brain with and without contrast at [facility] [place] on 03/13/2022: Findings consistent with multiple sclerosis with interval disease progression. No evidence of diffusion restriction or abnormal postcontrast enhancement is noted to suggest active demyelination of the current study. Labs from 02/20/2022: CMP unremarkable aside from elevated glucose; CBC unremarkable with ALC 1245; TSH 0.61; ferritin 162 MRI brain from 12/20/2020 without contrast shows stable findings consistent with multiple sclerosis. VNG from 12/07/6020: Significant vestibular dysfunction both centrally and peripherally. MRI cervical spine w/o contrast on 10/26/2020: Mild multilevel degenerative changes of the cervical spine as detailed, not significantly changed from prior examination. No high-grade neuroforaminal or spinal canal stenosis. 07/2020 CBC CMP checked out unremarkable. Routine EEG on 03/02/2020: Normal. MRI cervical spine from 10/06/18: Without any edema and a change MRI brain from 11/06/2018: Shows multiple deep white matter hyperintensities but none that are active. MRI brain without contrast from 12/23/16: Shows mild to moderate periventricular white matter lesions. Assessment/Plan Diagnoses and all orders for this visit: Relapsing remitting multiple sclerosis (MS) (CMS/HCC) The patient has relapsing remitting multiple sclerosis. He was previously on Tecfidera. However, MRI of the brain on 03/13/22 revealed interval disease progression, so he was transitioned to Ocrevus which he has been tolerating well. Recent MRIs of the brain and cervical spine in March 2023 seemed to suggest stability of the disease. The patient's last infusion was 06/10/2024. The patient states, neurologically, he's doing quite well today, PLAN: - Continue Ocrevus 600 mg IV every six months - we have previously ordered MRI of the brain with sedation. We did offer this to the patient multiple times. The patient stated he wanted to be knocked out for the MRI and I did not feel this was appropriate given his previous stability and the lack of trial of anxiety reducing medication such as Ativan. Based on his response and reaction I have suggested that he pursue tertiary care center opinion for his multiple sclerosis. He has declined this stating he does not want to travel at far. We still feel that based on his multitude of symptoms a multidisciplinary approach would be best for him. - I have discussed potential side effects of Ocrevus including infusion reaction, allergic reaction, kidney or liver damage, PML, increased susceptibility to acute infections, and increased cancer risk with the patient. The patient verbalizes understanding and wishes to proceed Ataxia Demonstrated on prior examination though not apparent today. The patient was advised to proceed to the emergency department on 05/04/24 due to ataxia and a multitude of acute symptoms. It seems he was evaluated in the ED on that date but left after prior to any work up being completed. He also was not ataxic in the ED per their documentation. I do have strong suspicion for a functional component to the patient's symptoms given the fluctuating nature. He is not ataxic on clinical exam today and states his coordination and balance have been good recently. PLAN: - MRI of the brain to evaluate to assess for an intracranial process which may be contributing to the patient's symptoms. As stated above, the patient has refused MRI due to wanting to be knocked out which is inappropriate and would against speak to a functional component are psychiatric component to this complaint. Bilateral occipital neuralgia It is my impression that the patient has bilateral occipital neuralgia. Stable today but has reported a multitude of days of severe headache with phone calls which does not match the history provides in person today. PLAN: - The patient is taking Lyrica 100 mg by mouth three times a day, amitriptyline 25 mg by mouth once a day, and methocarbamol as needed (prescribed by PCP) which could all potentially provide benefit for occipital neuralgia Further treatment for this condition would need to be per pain management for consideration of ablation. Central vestibular vertigo Previous VNG identified evidence of peripheral and central vestibular dysfunction. MRI of the brain on 03/11/23 revealed a moderate amount of scattered white matter disease but was otherwise generally unremarkable. Perhaps MS could be playing a role here. Bipolar 1 disorder The patient does have a history of Bipolar disorder and frequent emergency department visits where he was noted to leave against medical advice. He denies any suicidal or homicidal ideations. I believe his Bipolar disorder and fluctuations in mood/compliance substantially impact the ability to treat him reliably. PLAN: - I strongly recommended referral to psychiatry and counseling to help improve management of the patient's Bipolar, depression, and anxiety. The patient again refused Restless legs syndrome (RLS) The patient previously reported symptoms of restless leg syndrome. Ferritin level on 02/20/22 was within normal limits. He is longer taking Abilify, and his RLS seems to be stable now. Overall, the patient's presentation does have suspicion for a functional neurological component as he has frequent visits to the ER and his symptoms are out of proportion to the examination findings on imaging. Again, this is part of the reason we suggested a multidisciplinary approach due to the history of MS, new onset diagnosis of what he states his rheumatoid arthritis (not noted in Dr Granados note whom patient states made this diagnosis) and strong suspicion of psychiatric/functional neurological disorder. Diagnosis and treatment options discussed in detail. All questions answered. The patient verbalizes understanding and is agreeable to the plan. Discussion in layman's terms. Follow up in the office within 1 to 2 months; sooner if needed for new or worsening symptoms. documented in this encounter [facility] 09-16-2024 Telephone encounter Note Patient sent a text message stating he fell again and he is out of percocets. Also he is using ibuprofen with the robaxin for his headaches.All three meds loaded [facility] 09-16-2024 Miscellaneous Notes Patient sent a text message stating he fell again and he is out of percocets. Also he is using ibuprofen with the robaxin for his headaches.All three meds loaded I called and spoke to patient. He has not heard from [facility] [place] [place] regarding the scheduling of MRI or bone scan. Authorization was complete by referral group but they did not schedule an appointment. I faxed the orders to [facility] [place] [place] Central Scheduling. Nisa Rojas MD Please call and see where things are with his bone scan and MRI of the LS spine to be done at [facility] [place] [place]. Let me know. Nisa Rojas MD routed this conversation to [facility] Im Bar Waiter/Waitress documented in this encounter [facility] 09-14-2024 Telephone encounter Note I called and spoke to patient. He has not heard from [facility] [place] [place] regarding the scheduling of MRI or bone scan. Authorization was complete by referral group but they did not schedule an appointment. I faxed the orders to [facility] [place] [place] Central Scheduling. [facility] 09-14-2024 Telephone encounter Note Nisa Rojas MD Please call and see where things are with his bone scan and MRI of the LS spine to be done at [facility] [place] [place]. Let me know. Nisa Rojas MD routed this conversation to [facility] Im Bar Waiter/Waitress [facility] 09-02-2024 History of Present illness Narrative Associated Order(s): L Inj/Asp: R knee Post-Procedure Diagnose(s): Arthritis of right knee Images from the original note were not included. NAME: Kerline Chang : 1970 HISTORY OF PRESENT ILLNESS: NEW PT Kerline Chang is an 54 y.o. @ male. (NEW PT) (DR. ROJAS REFERRAL) - RT KNEE XRAY TODAY EPIC 09/02/24 XRAY 05/15/24, 04/17/24 @[facility] [place] [place] PAIN ANTERIOR, MEDIAL AND LATERAL. TAKING PERCOCET PRN (DR ROJAS). TAKING IBU 800 AND METHOCARBAMOL. ADMITS POPPING. OCCAS GIVING OUT. STATES STAIRS ARE IMPOSSIBLE. WAKES AT HS. History of Present Illness The patient presents for evaluation of right knee pain. PAST MEDICAL HISTORY: Past Medical History: Diagnosis Date Adrenal adenoma, left 12/30/2022 Age-related nuclear cataract, bilateral Bipolar disorder ([facility]) Carpal tunnel syndrome Cervical paraspinal muscle spasm Cholelithiasis Chronic sialoadenitis CKD (chronic kidney disease) stage 2, GFR 60-89 ml/min Disturbance of skin sensation ED (erectile dysfunction) Essential hypertension ([facility]/HCC) SUKHJINDER (generalized anxiety disorder) ([facility]) Gait abnormality History of colon polyps Hx of acute myocardial infarction ([facility]) Hx of temporal arteritis Hyperlipidemia ([facility]) Irritable bowel syndrome Lipodermatosclerosis Lymphedema of both lower extremities Migraine ([facility]) Morbid obesity ([facility]) Multiple sclerosis, relapsing-remitting ([facility]) Nuclear senile cataract 01/03/2021 Obstructive sleep apnea CODIE (obstructive sleep apnea) Peripheral neuropathy PLMD (periodic limb movement disorder) Polypharmacy Primary open angle glaucoma (POAG) of both eyes, mild stage ([facility]) Primary osteoarthritis involving multiple joints PTSD (post-traumatic stress disorder) ([facility]) Spinal stenosis of cervical region Type 2 diabetes mellitus ([facility]) Varicose veins of lower limb Varicose veins Venous insufficiency Vitamin B12 deficiency Vitamin D deficiency PAST SURGICAL HISTORY: Past Surgical History: Procedure Laterality Date ARTERY BIOPSY Left 08/26/2016 temporal artery biopsy. Excision painful vein lt mormonism ARTERY BIOPSY Right 03/11/2014 temporal artery biopsy COLONOSCOPY 11/27/2018 CYST REMOVAL Excision of benign cyst back of neck, Friedman KNEE SURGERY arthroscopic knee surgery SOCIAL HISTORY: Social History Occupational History Occupation: disabled Tobacco Use Smoking status: Some Days Types: Cigarettes Start date: 1989 Passive exposure: Past Smokeless tobacco: Never Tobacco comments: 5 or less cigs a day Vaping Use Vaping status: Never Used Substance and Sexual Activity Alcohol use: Never Comment: Caffine intake: Coke Zero, 2-3 cans daily Drug use: Yes Types: Marijuana Comment: Daily Sexual activity: Not Currently Partners: Female ALLERGIES: Allergies Allergen Reactions Duloxetine Hcl Other Reaction(s): intolerance Natalizumab Other Reaction(s): AOF Semaglutide Other Reaction(s): nausea and vomiting Other Reaction(s): Other: See Comments Chills, nightmares, diarrhea HOME MEDICATIONS: Current Outpatient Medications Medication Instructions ALPRAZolam (XANAX) 0.5 mg, Oral, 2 times daily PRN amitriptyline (ELAVIL) 25 mg, Oral, Nightly ARIPiprazole (ABILIFY) 5 mg, Oral, Daily bimatoprost (Lumigan) 0.01 % ophthalmic solution 1 drop, Nightly Cannabinoids (medical cannabis) Medical Marijuana diclofenac sodium (VOLTAREN) 4 g, 4 times daily ergocalciferol (VITAMIN D-2) 1.25 mg, Oral, 2 times weekly ibuprofen 800 mg, Oral, 3 times daily PRN irbesartan (Avapro) 300 MG tablet TAKE 1 TABLET BY MOUTH DAILY Lancets Micro Thin 33G misc 1 Lancet , As needed methocarbamol (ROBAXIN) 750-1,500 mg, Oral, 3 times daily PRN metoprolol succinate XL (TOPROL-XL) 100 mg, Oral, Daily NovoLOG FLEXPEN 60 Units, Subcutaneous, See admin instructions, Injection per sliding scale Ocrevus 600 mg, Over 6 months oxyCODONE-acetaminophen (Percocet) 5-325 MG tablet 1-2 tablets, Oral, Every 6 hours PRN pregabalin (LYRICA) 300 mg, Oral, 2 times daily rosuvastatin (CRESTOR) 10 mg, Oral, Nightly tadalafil (CIALIS) 20 mg, Oral, Daily Tresiba FlexTouch 100 Units, Subcutaneous, Nightly triamcinolone (Kenalog) 0.1 % cream 1 application , Topical, 2 times daily PRN, Avoid face and groin. Ubrogepant (Ubrelvy) 100 MG tablet Take 1 tablet by mouth. May take a second dose at least 2 hours after the first dose as needed REVIEW OF SYSTEMS: Review of Systems Vitals: There is no height or weight on file to calculate BMI. Tobacco Use: High Risk (09/02/2024) Patient History Smoking Tobacco Use: Some Days Smokeless Tobacco Use: Never Passive Exposure: Past Alcohol Use: Not At Risk (12/30/2023) AUDIT-C Frequency of Alcohol Consumption: Never Average Number of Drinks: Patient does not drink Frequency of Binge Drinking: Never PHYSICAL EXAM: Knee Musculoskeletal Exam Gait Antalgic: right Inspection Leg length disparity: no discrepancy Right Erythema: none Effusion: mild Edema: none Ecchymosis: none Deformity: none Alignment: valgus Palpation Right Right knee palpation is unremarkable. Increased warmth: none Masses: none Crepitus: patellofemoral and lateral Tenderness: present Lateral joint line: moderate Patella: mild Range of Motion Right Right knee range of motion is normal and full. Strength Right Right knee strength is normal. Extension: 4/5. Extension is affected by pain. Flexion: 4/5. Flexion is affected by pain. Strength additional comments: Pt reports pain and chronic weakness with MS. Instability Right Instability signs: none - stable Anterior drawer: normal Neurovascular Right Right knee neurovascular exam is normal. Pulses - PT: normal Posterior tibial: 2+ Capillary refill: warm and well-perfused Special Signs Right Right knee special signs are normal. Patellar apprehension: none General Constitutional: appears stated age Labored breathing: no Psychiatric: normal mood and affect Neurological: alert Skin: intact Lymphadenopathy: none Physical Exam IMAGING: XR knee 1 or 2 views right Imaging Result: AP and Lateral weight bearing Moderate patellafemoral and lateral joint line arthritic changes. Flattening of articular surface. Subchondral sclerosis with spurring and joint space narrowing. No acute fracture or dislocation Mild valgus deformity Impression: moderate arthritic changes right knee with no acute bony process. Results Imaging Knee x-rays show arthritic changes in the patellofemoral and lateral component. L Inj/Asp: R knee on 09/02/2024 9:55 AM Indications: pain Details: 22 G needle, anterolateral approach Medications: 40 mg methylPREDNISolone acetate 40 MG/ML; 1 mL bupivacaine PF 0.5 % Outcome: tolerated well, no immediate complications E UTILIZING ASEPTIC TECHNIQUE PT GIVEN INJECTION IN RIGHT KNEE, NEUROVASC INTACT S/P INJ, TOLERATED WELL Procedure, treatment alternatives, risks and benefits explained, specific risks discussed. Consent was given by the patient. Patient was prepped and draped in the usual sterile fashion. Orders Placed This Encounter Procedures L Inj/Asp: R knee This order was created via procedure documentation XR knee 1 or 2 views right Order Specific Question: Reason for exam: Answer: pain ASSESSMENT: ICD-10-CM 1. Acute pain of right knee M25.561 XR knee 1 or 2 views right 2. Arthritis of right knee M17.11 L Inj/Asp: R knee Assessment & Plan 1. Right knee pain. Knee x-rays reviewed. Patient has arthritic changes patellofemoral and lateral component. We discussed surgical and nonsurgical treatment options. He has not had any treatment in the last several years, but medical records show cortisone injections through the [facility] a few years ago. He is requesting a cortisone injection today. He will follow up on an as needed basis with likely acute on chronic exacerbation of pain with underlying right knee arthritis. Risks and benefits of cortisone injection discussed. Patient has a complicated history with MS and diabetes. Questions answered in laymen terms at the bedside. The diagnosis, home exercise plan and any ongoing restrictions/ recommendations reviewed. If unable to be reached in office, I recommend evaluation at nearest Emergency Room if any symptoms worsened or new symptoms develop for requiring urgent evaluation. documented in this encounter [facility] 08-31-2024 History of Present illness Narrative Images from the original note were not included. Kerline Chang is a 54 y.o. male presents with chief complaint of 3 Month Follow-up of Chronic Conditions (Pt has neurology appointment in September with Dr. Gutierres. MRI was ordered and he wanted to be sedated. ) HPI: History of Present Illness Patient presents today for follow up of chronic medical problems. He reports persistent soreness in his right knee, which is exacerbated by both sitting and standing. He has been experiencing recurrent issues with his knee, necessitating a consultation with Dr. Ng. He also mentions that the analgesic injection administered previously appears to be losing its efficacy. He describes a sensation of his fingers curling, accompanied by severe pain that prevents him from making a fist. He also experiences constant pain in his toes, described as pins and needles, which persists throughout the day. This discomfort is alleviated by Lyrica when he lies down at night, but daytime use of Lyrica results in significant imbalance. He has a scheduled appointment with neurology on 09/08/2024. He has previously tried methotrexate, Plaquenil, Enbrel, and Humira for his symptoms. He has discontinued Ocrevus. He reports facial redness and flaking skin, along with dryness and itching of the face. He frequently scratches his eyebrows. He has been using a cream prescribed for his chest, which has been effective in clearing up the area. He has been experiencing a cough, which he attributes to smoking. He reports no associated fever or feeling unwell. He has reduced his cigarette consumption to approximately one pack per week. He has been managing his blood pressure with nightly medication. He is currently on Tresiba 100 units once daily, which he administers during the day. He takes NovoLog before meals, adjusting the dose according to a sliding scale. He occasionally checks his blood sugar levels post-meal. His average glucose level over the past 90 days is 329 mg/dL. The highest insulin dose he has administered is 30 units. He has experienced hypoglycemia once after administering mealtime insulin and eating. He estimates that his blood sugar levels are above 240 approximately 78 percent of the time. SOCIAL HISTORY The patient has cut down cigarette consumption to about a pack a week. I have reviewed and reconciled the history and medication list with the patient today. HISTORIES: PAST MEDICAL HISTORY: Past Medical History: Diagnosis Date Adrenal adenoma, left 12/30/2022 Age-related nuclear cataract, bilateral Bipolar disorder (CMS/HCC) Carpal tunnel syndrome Cervical paraspinal muscle spasm Cholelithiasis Chronic sialoadenitis CKD (chronic kidney disease) stage 2, GFR 60-89 ml/min Disturbance of skin sensation ED (erectile dysfunction) Essential hypertension (CMS/HCC) SUKHJINDER (generalized anxiety disorder) (CMS/HCC) Gait abnormality History of colon polyps Hx of acute myocardial infarction (CMS/HCC) Hx of temporal arteritis Hyperlipidemia (CMS/HCC) Irritable bowel syndrome Lipodermatosclerosis Lymphedema of both lower extremities Migraine (CMS/HCC) Morbid obesity ([facility]) Multiple sclerosis, relapsing-remitting ([facility]) Nuclear senile cataract 01/03/2021 Obstructive sleep apnea CODIE (obstructive sleep apnea) Peripheral neuropathy PLMD (periodic limb movement disorder) Polypharmacy Primary open angle glaucoma (POAG) of both eyes, mild stage (CMS/HCC) Primary osteoarthritis involving multiple joints PTSD (post-traumatic stress disorder) (CMS/HCC) Spinal stenosis of cervical region Type 2 diabetes mellitus (CMS/HCC) Varicose veins of lower limb Varicose veins Venous insufficiency Vitamin B12 deficiency Vitamin D deficiency SURGICAL HISTORY: Past Surgical History: Procedure Laterality Date ARTERY BIOPSY Left 08/26/2016 temporal artery biopsy. Excision painful vein lt mormonism ARTERY BIOPSY Right 03/11/2014 temporal artery biopsy COLONOSCOPY 11/27/2018 CYST REMOVAL Excision of benign cyst back of neck, Friedman KNEE SURGERY arthroscopic knee surgery SOCIAL HISTORY: Social History Tobacco Use Smoking status: Some Days Types: Cigarettes Start date: 1989 Passive exposure: Past Smokeless tobacco: Never Tobacco comments: 5 or less cigs a day Vaping Use Vaping status: Never Used Substance Use Topics Alcohol use: Never Comment: Caffine intake: Coke Zero, 2-3 cans daily Drug use: Yes Types: Marijuana Comment: Daily Depression: Not at risk (02/25/2024) PHQ-2 PHQ-2 Score: 0 FAMILY HISTORY: Family History Problem Relation Name Age of Onset Cancer Mother anastacio gilbert COPD Mother anastacio gilbert Hypertension Father braulio chang Heart disease Father braulio chang Cancer Father braulio chang Diabetes Father braulio chang Liver disease Father braulio chang Alcohol abuse Father braulio chang Cancer Maternal Grandmother kae caceres MEDICATIONS: Current Outpatient Medications Medication Instructions ALPRAZolam (XANAX) 0.25 mg, Oral, 2 times daily PRN amitriptyline (ELAVIL) 25 mg, Oral, Nightly ARIPiprazole (ABILIFY) 5 mg, Oral, Daily bimatoprost (Lumigan) 0.01 % ophthalmic solution 1 drop, Nightly Cannabinoids (medical cannabis) Medical Marijuana diclofenac sodium (VOLTAREN) 4 g, 4 times daily ergocalciferol (VITAMIN D-2) 1.25 mg, Oral, 2 times weekly ibuprofen 800 mg, Oral, 3 times daily PRN irbesartan (Avapro) 300 MG tablet TAKE 1 TABLET BY MOUTH DAILY Lancets Micro Thin 33G misc 1 Lancet , As needed methocarbamol (ROBAXIN) 750-1,500 mg, Oral, 3 times daily PRN metoprolol succinate XL (TOPROL-XL) 100 mg, Oral, Daily NovoLOG FLEXPEN 60 Units, Subcutaneous, See admin instructions, Injection per sliding scale Ocrevus 600 mg, Over 6 months oxyCODONE-acetaminophen (Percocet) 5-325 MG tablet 1-2 tablets, Oral, Every 6 hours PRN pregabalin (LYRICA) 300 mg, Oral, 2 times daily rosuvastatin (CRESTOR) 10 mg, Oral, Nightly tadalafil (CIALIS) 20 mg, Oral, Daily Tresiba FlexTouch 100 Units, Subcutaneous, Nightly triamcinolone (Kenalog) 0.1 % cream 1 application , Topical, 2 times daily PRN, Avoid face and groin. Ubrogepant (Ubrelvy) 100 MG tablet Take 1 tablet by mouth. May take a second dose at least 2 hours after the first dose as needed ALLERGIES: Allergies Allergen Reactions Duloxetine Hcl Other Reaction(s): intolerance Natalizumab Other Reaction(s): AOF Semaglutide Other Reaction(s): nausea and vomiting Other Reaction(s): Other: See Comments Chills, nightmares, diarrhea PHYSICAL EXAM: Visit Vitals Smoking Status Some Days BP Readings from Last 3 Encounters: 07/20/24 132/80 06/29/24 140/80 06/03/24 142/88 Wt Readings from Last 3 Encounters: 07/20/24 327 lb 12.8 oz 06/29/24 317 lb 12.8 oz 06/03/24 313 lb Physical Exam Vitals reviewed. Constitutional: General: He is not in acute distress. Appearance: Normal appearance. Neck: Vascular: No carotid bruit. Cardiovascular: Rate and Rhythm: Normal rate and regular rhythm. Heart sounds: No murmur heard. No friction rub. Pulmonary: Breath sounds: Normal breath sounds. No wheezing or rhonchi. Musculoskeletal: Cervical back: Neck supple. Right lower leg: No edema. Left lower leg: No edema. Lymphadenopathy: Cervical: No cervical adenopathy. Skin: General: Skin is warm and dry. Neurological: Mental Status: He is alert. Results Laboratory Studies Average blood glucose for 90 days is 329 mg/dL. A1c was 12%. ASSESSMENT AND PLAN: Assessment & Plan 1. Type 2 diabetes mellitus with diabetic neuropathy, with long-term current use of insulin (CMS/HCC) (Primary) His blood sugar levels are poorly controlled, with a 3-month average of 394 mg/dL according to his Jazmín readings. He is currently on Tresiba 100 units once daily and NovoLog on a sliding scale before meals. He is advised to perform 2-hour post-meal blood sugar checks and bring the results to the next visit. He is also advised to reduce smoking to less than one pack per week to help manage his diabetes and overall health. - POCT Glycated hemoglobin, total 2. Essential hypertension (CMS/HCC) Blood pressure doing well. Continue lifestyle modifications to include minimizing salt and alcohol, exercising regularly, and keeping weight down. Continue current medications. 3. Mixed hyperlipidemia (CMS/HCC) Will follow up labs. 4. Hyperparathyroidism, unspecified (CMS/HCC) Stable. Continue to monitor. 5. Chronic bilateral low back pain without sciatica Doing well. OARRS report was reviewed and there were no concerns. Continue current regimen. 6. Psoriatic arthritis ([facility]CC) His laboratory results indicate a need for rheumatology consultation. He reports severe pain in his fingers and toes, with constant wetq-jsy-aljqrro sensations. He has tried multiple medications in the past, including methotrexate, Plaquenil, Enbrel, and Humira, with limited success. Steroids are not an option due to his elevated blood sugar levels. A referral to rheumatology will be made to explore newer treatment options. 7. Multiple sclerosis ([facility]CC) He is due for follow up with neurology soon. 8. Bipolar 1 disorder, mixed ([facility]) Stable. Continue to monitor. 9. Generalized anxiety disorder ([facility]) Doing well. OARRS report was reviewed and there were no concerns. Continue current regimen. - ALPRAZolam (Xanax) 0.5 MG tablet; Take 1 tablet (0.5 mg) by mouth 2 (two) times a day as needed for anxiety Dispense: 60 tablet; Refill: 0 10. Morbid obesity ([facility]) Encouraged to eat healthy by avoiding processed foods, increasing protein intake, reducing bad carbs, minimizing snacking and excess calories, eating more fruits and vegetables, and eating less saturated fat. In addition, exercise regularly to include resistance or weight training at least 3 days per week and cardio on other days. 11. Body mass index (BMI) 45.0-49.9, adult ([facility]) As above. 12. Acute pain of right knee The patient reports that the pain from the fall is improving, but he continues to experience knee and lower back pain. He also mentions that the bruise has resolved. A referral to Dr. Chu in orthopedics will be initiated for further evaluation and management of his right knee pain. - Ambulatory referral to Orthopaedic Surgery; Future 13. Spinal stenosis in cervical region As above. 14. Seborrheic dermatitis He presents with facial redness and flaky skin, suggestive of seborrheic dermatitis. A prescription for hydrocortisone cream will be provided. He is advised to avoid using stronger prescription creams on his face and to moisturize the skin once the condition clears. 15. Acute cough He has been experiencing a cough, which he attributes to smoking. He reports no associated fever or feeling unwell. He has reduced his cigarette consumption to approximately one pack per week. Follow-up The patient will follow up in 6 weeks. documented in this encounter [facility] 08-12-2024 Telephone encounter Note Called and talked to Chris and he said he only had 1 Mclean left and took that today with Ibuprofen. He is not scheduled for the bone scan yet and tried to do the MR brain and freaked out so they had to stop it until he can be medicated. He does have an appt with EMMA Gutierres with Neuro Sep 20. He said he has not been to a go cart mechanic in a while because he got fired from [facility] for cussing out the staff but is willing to go to someone else. He also said his fingers are starting to curve like you see with rheumatoid arthritis. His pinky finger is bad said this is a new development that you have not seen and started after his last visit with you. [facility] 08-12-2024 Miscellaneous Notes Called and talked to Chris and he said he only had 1 Mclean left and took that today with Ibuprofen. He is not scheduled for the bone scan yet and tried to do the MR brain and freaked out so they had to stop it until he can be medicated. He does have an appt with EMMA Gutierres with Neuro Sep 20. He said he has not been to a go cart mechanic in a while because he got fired from [facility] [employer] for cussing out the staff but is willing to go to someone else. He also said his fingers are starting to curve like you see with rheumatoid arthritis. His pinky finger is bad said this is a new development that you have not seen and started after his last visit with you. If he is taking 2 Mclean at a time and it is not helping, I will give him Percocet. Send back to me to e-scribe. When is his appt with neuro? If there a go cart mechanic he would be willing to see? When is his bone scan scheduled? Patient called stating he fell outside on the ice landing on his butt, jarring his back. Asking for stronger pain meds. The vicodin does nothing for the pain documented in this encounter [facility] 08-12-2024 Telephone encounter Note If he is taking 2 Mclean at a time and it is not helping, I will give him Percocet. Send back to me to e-scribe. When is his appt with neuro? If there a go cart mechanic he would be willing to see? When is his bone scan scheduled? [facility] 08-12-2024 Telephone encounter Note Patient called stating he fell outside on the ice landing on his butt, jarring his back. Asking for stronger pain meds. The vicodin does nothing for the pain [facility] 08-11-2024 Telephone encounter Note Patient called requesting a refill on alprazolam RX loaded [facility] 08-11-2024 Miscellaneous Notes Patient called requesting a refill on alprazolam RX loaded Spoke with patient states he has been stressed out because he had to movie out of his apt and in with his mother, asking for refill on xanax. He states his headaches are better but he states he is very fatigue and muscles are sore. He ill do the bone scan and change of address updated. RX loaded ----- Message from Dr. Nisa Rojas sent at 08/08/2024 9:42 PM EST ----- Please call and tell him the labs show definite lab abnormalities showing inflammation or rheumatologic disease. I would like him to have a whole body bone scan done (dx: elevated alk phos) and also ask how he is feeling and let me know. documented in this encounter [facility] 08-10-2024 Telephone encounter Note Spoke with patient states he has been stressed out because he had to movie out of his apt and in with his mother, asking for refill on xanax. He states his headaches are better but he states he is very fatigue and muscles are sore. He ill do the bone scan and change of address updated. RX loaded [facility] 08-10-2024 Telephone encounter Note ----- Message from Dr. Nisa Rojas sent at 08/08/2024 9:42 PM EST ----- Please call and tell him the labs show definite lab abnormalities showing inflammation or rheumatologic disease. I would like him to have a whole body bone scan done (dx: elevated alk phos) and also ask how he is feeling and let me know. [facility] 07-20-2024 History of Present illness Narrative Images from the original note were not included. Kerline Chang is a 54 y.o. male presents with chief complaint of Post ER (He has had frequent ER visits within the last 10 days. He has multiple complaints. Frequent falls due to dizziness and leg weakness, headache, rt knee pain, rt hand pain, elevated BS. /He is requesting renewal on Mclean, Ibuprofen , Tizanidine 4 mg (prescribed in ER) He would like to discuss Lyrica, states this was sent in at lower dose. ) HPI: History of Present Illness The patient presents for evaluation of headaches, dizziness, and falls. He reports a general feeling of malaise, with symptoms including headaches, dizziness, and falls. He has been experiencing frequent emergency room visits. He had a scheduled appointment with neurology on 07/29/2024, but it was rescheduled to an earlier date, which he is yet to be informed about. He has not been adhering to his prescribed cholesterol medication regimen. He recalls a previous discussion with his healthcare provider about potential drug interactions, which may have led to his non-compliance. He has discontinued the use of Xanax due to a general aversion to taking multiple medications. He has been managing his diabetes with insulin therapy. He has not yet completed his blood work, despite having the necessary orders at home, due to his frequent emergency room visits. He received a knee injection yesterday. Supplemental Information He reports a fall resulting in a head injury, characterized by a scab on the head. Additionally, he notes redness and swelling in one hand compared to the other, accompanied by pain in the fingers. He is uncertain if this is related to the fall. MEDICATIONS Current: insulin Discontinued: Xanax, Abilify, Robaxin I have reviewed and reconciled the history and medication list with the patient today. HISTORIES: PAST MEDICAL HISTORY: Past Medical History: Diagnosis Date Adrenal adenoma, left 12/30/2022 Age-related nuclear cataract, bilateral Bipolar disorder ([facility]) Carpal tunnel syndrome Cervical paraspinal muscle spasm Cholelithiasis Chronic sialoadenitis CKD (chronic kidney disease) stage 2, GFR 60-89 ml/min Disturbance of skin sensation ED (erectile dysfunction) Essential hypertension ([facility]/HCC) SUKHJINDER (generalized anxiety disorder) ([facility]) Gait abnormality History of colon polyps Hx of acute myocardial infarction ([facility]/HCC) Hx of temporal arteritis Hyperlipidemia ([facility]/HCC) Irritable bowel syndrome Lipodermatosclerosis Lymphedema of both lower extremities Migraine (CMS/HCC) Morbid obesity ([facility]/HCC) Multiple sclerosis, relapsing-remitting ([facility]) Nuclear senile cataract 01/03/2021 Obstructive sleep apnea CODIE (obstructive sleep apnea) Peripheral neuropathy PLMD (periodic limb movement disorder) Polypharmacy Primary open angle glaucoma (POAG) of both eyes, mild stage (CMS/HCC) Primary osteoarthritis involving multiple joints PTSD (post-traumatic stress disorder) (CMS/HCC) Spinal stenosis of cervical region Type 2 diabetes mellitus (CMS/HCC) Varicose veins of lower limb Varicose veins Venous insufficiency Vitamin B12 deficiency Vitamin D deficiency SURGICAL HISTORY: Past Surgical History: Procedure Laterality Date ARTERY BIOPSY Left 08/26/2016 temporal artery biopsy. Excision painful vein lt mormonism ARTERY BIOPSY Right 03/11/2014 temporal artery biopsy COLONOSCOPY 11/27/2018 CYST REMOVAL Excision of benign cyst back of neck, Friedman KNEE SURGERY arthroscopic knee surgery SOCIAL HISTORY: Social History Tobacco Use Smoking status: Some Days Types: Cigarettes Start date: 1989 Passive exposure: Past Smokeless tobacco: Never Tobacco comments: 5 or less cigs a day Vaping Use Vaping status: Never Used Substance Use Topics Alcohol use: Never Comment: Caffine intake: Coke Zero, 2-3 cans daily Drug use: Yes Types: Marijuana Comment: Daily Depression: Not at risk (02/25/2024) PHQ-2 PHQ-2 Score: 0 FAMILY HISTORY: Family History Problem Relation Name Age of Onset Cancer Mother anastacio gilbert COPD Mother anastacio gilbert Hypertension Father braulio chang Heart disease Father braulio chang Cancer Father braulio chang Diabetes Father braulio chang Liver disease Father braulio chang Alcohol abuse Father braulio chang Cancer Maternal Grandmother kae caceres MEDICATIONS: Current Outpatient Medications Medication Instructions ALPRAZolam (XANAX) 0.25 mg, Oral, 2 times daily PRN amitriptyline (ELAVIL) 25 mg, Oral, Nightly bimatoprost (Lumigan) 0.01 % ophthalmic solution 1 drop, Nightly Cannabinoids (medical cannabis) Medical Marijuana diclofenac sodium (VOLTAREN) 4 g, 4 times daily ergocalciferol (VITAMIN D-2) 1.25 mg, Oral, 2 times weekly HYDROcodone-acetaminophen (Mclean) 5-325 MG tablet 1-2 tablets, Oral, Every 6 hours PRN ibuprofen 800 mg, Oral, 3 times daily PRN insulin aspart (NovoLOG FLEXPEN) 100 UNIT/ML pen See admin instructions irbesartan (Avapro) 300 MG tablet TAKE 1 TABLET BY MOUTH DAILY Lancets Micro Thin 33G misc 1 Lancet , As needed methocarbamol (ROBAXIN) 750-1,500 mg, Oral, 3 times daily PRN metoprolol succinate XL (TOPROL-XL) 100 mg, Oral, Daily Ocrevus 600 mg, Over 6 months pregabalin (Lyrica) 150 MG capsule Take 2 capsules (300 mg) by mouth at bedtime. May also take 1 capsule (150 mg) Daily as needed (pain). rosuvastatin (CRESTOR) 10 mg, Oral, Nightly tadalafil (CIALIS) 20 mg, Oral, Daily Tresiba FlexTouch 200 UNIT/ML injection INJECT 100 UNITS SUBCUTANEOUSLY EVERY DAY triamcinolone (Kenalog) 0.1 % cream 1 application , Topical, 2 times daily PRN, Avoid face and groin. Ubrogepant (Ubrelvy) 100 MG tablet Take 1 tablet by mouth. May take a second dose at least 2 hours after the first dose as needed ALLERGIES: Allergies Allergen Reactions Duloxetine Hcl Other Reaction(s): intolerance Natalizumab Other Reaction(s): AOF Semaglutide Other Reaction(s): nausea and vomiting Other Reaction(s): Other: See Comments Chills, nightmares, diarrhea PHYSICAL EXAM: Visit Vitals BP 132/80 Pulse 67 Ht 5' 9 Wt 327 lb 12.8 oz SpO2 97% BMI 48.41 kg/m Smoking Status Some Days BSA 2.69 m BP Readings from Last 3 Encounters: 07/20/24 132/80 06/29/24 140/80 06/03/24 142/88 Wt Readings from Last 3 Encounters: 07/20/24 327 lb 12.8 oz 06/29/24 317 lb 12.8 oz 06/03/24 313 lb Physical Exam HENT: Right Ear: Tympanic membrane and external ear normal. Left Ear: Tympanic membrane and external ear normal. Mouth/Throat: Mouth: Mucous membranes are moist. Cardiovascular: Rate and Rhythm: Normal rate and regular rhythm. Heart sounds: No murmur heard. No friction rub. No gallop. Pulmonary: Effort: Pulmonary effort is normal. Breath sounds: Normal breath sounds. Abdominal: Tenderness: There is no abdominal tenderness. Musculoskeletal: Right lower leg: No edema. Left lower leg: No edema. Skin: General: Skin is warm and dry. Findings: Erythema (right hand) present. Neurological: Mental Status: He is alert and oriented to person, place, and time. Psychiatric: Thought Content: Thought content normal. Results Laboratory Studies Last A1c was high. ASSESSMENT AND PLAN: Assessment & Plan 1. Type 2 diabetes mellitus with diabetic neuropathy, with long-term current use of insulin ([facility]) His last A1c was notably elevated. He is currently taking insulin but has not completed his recent blood work. Blood work will be conducted today to monitor his diabetes management. Recommended increasing Novolog to 30-40 units with meals if sugar is above 400. Will review medications and consider changing. 2. History of migraine headaches (Primary) The patient's symptoms of headaches, dizziness, and falls are concerning for a potential multiple sclerosis (MS) flare-up. A referral to neurology is necessary for further evaluation. Blood work will be conducted today to assess white blood cell count and rule out any underlying infection. 3. Chronic bilateral low back pain without sciatica Stable. Continue current regimen. 4. Cellulitis of hand, right Start ATB as directed. Follow up if not improving. - cephalexin (Keflex) 500 MG capsule; Take 1 capsule (500 mg) by mouth in the morning and 1 capsule (500 mg) before bedtime. Do all this for 10 days. Dispense: 20 capsule; Refill: 0 5. Generalized anxiety disorder (CMS/HCC) He is more anxious and cannot handle stress. He was much better when taking Abilify. Will restart. He has not been using Xanax lately. 6. Bipolar 1 disorder, mixed (CMS/HCC) Restart Abilify as directed. Discussed with pt and mother that he was much better when he was taking this. - ARIPiprazole (Abilify) 5 MG tablet; Take 1 tablet (5 mg) by mouth Daily Dispense: 30 tablet; Refill: 5 7. Primary osteoarthritis involving multiple joints Doing well. OARRS report was reviewed and there were no concerns. Continue current regimen. Will follow-up in 3 months to reassess and review OARRS report again. - HYDROcodone-acetaminophen (Mclean) 5-325 MG tablet; Take 1-2 tablets by mouth every 6 (six) hours if needed for severe pain Dispense: 42 tablet; Refill: 0 8. Polyneuropathy associated with underlying disease (CMS/HCC) Stable. Continue current regimen. - pregabalin (Lyrica) 300 MG capsule; Take 1 capsule (300 mg) by mouth in the morning and 1 capsule (300 mg) before bedtime. Dispense: 60 capsule; Refill: 5 9. MS (multiple sclerosis) (CMS/[facility]) He sees Neurology next week. Discussed that he needs to keep this appt. Patient was seen and examined with Adela Hutton CNP. History was confirmed and verified. Chaney elements of the exam were also completed. Assessment and plan were reviewed and addended as needed. Agree with documentation above. documented in this encounter [facility] 07-19-2024 Evaluation note Diagnosis Onset Date Resolution Right knee DJD acute July 042023 10:23am Right knee pain acute July 19, 2024 10:23am [facility] Work Phone: [phone]) 125-589212-09-2024 Telephone encounter Note* Telephone Encounter - Noa Hansen LPN - 07/12/2024 4:53 PM EST He is ok with the few extra [facility] [id number] Miscellaneous Notes* Telephone Encounter - Noa Hansen LPN - 07/12/2024 4:53 PM EST He is ok with the few extra * Telephone Encounter - Nisa Rojas MD - 07/12/2024 4:30 PM EST Please call him and tell him I am OK with him taking a few extras if needed. We just need to prepare for that in how we prescribe it. If he is going to need that at times, we just need to change to the 150 mg tabs so he can take 2 at bedtime and I can give him 10 extras he can take as needed duringthe day if things are flaring up. See if he wants to do that and send back to me so I can send in the new prescription instead of refilling the old one. * Telephone Encounter - Darci Montgomery MA - 07/12/2024 2:47 PM EST Kerline Chang 343, can you have someone call in my Lyrica to be refilled? 2 days early, I used 1 or 2 during the daytime because I have been in bed because of my knee and I have not been able to walk very well, so I use like 1 of the lyrics. I probably should have But they hurt so bad. So if you could have them call and they said, I mean, it is only that it gets supposed to be done on the 11th and it is only the 9th. I am only like 2 days short but still they need somebody to call to make sure I do not know if you could do That that would be great. Let me know, please. -coped from [place] documented in this encounterSaint [facility] Health [id number] Telephone encounter Note* Telephone Encounter - Nisa Rojas MD - 07/12/2024 4:30 PM EST Please call him and tell him I am OK with him taking a few extras if needed. We just need to prepare for that in how we prescribe it. If he is going to need that at times, we just need to change to the 150 mg tabs so he can take 2 at bedtime and I can give him 10 extras he can take as needed duringthe day if things are flaring up. See if he wants to do that and send back to me so I can send in the new prescription instead of refilling the old one. [facility] [id number] Telephone encounter Note* Telephone Encounter - Darci Montgomery MA - 07/12/2024 2:47 PM EST Kerline Chang 12, can you have someone call in my Lyrica to be refilled? 2 days early, I used 1 or 2 during the daytime because I have been in bed because of my knee and I have not been able to walk very well, so I use like 1 of the lyrics. I probably should have But they hurt so bad. So if you could have them call and they said, I mean, it is only that it gets supposed to be done on the and it is only the . I am only like 2 days short but still they need somebody to call to make sure I do not know if you could do That that would be great. Let me know, please. -coped from [place] [facility] [id number] History of Present illness Narrative* Nisa Rojas MD - 06/29/2024 11:00 AM EST Images from the original note were not included. Kerline Chang is a 54 y.o. male presents with chief complaint of ER Follow-up (06/25 [facility] [place] [place] dx: acute right knee pain, Pt eloped from hospital/Patient has complaints of generalized arthritis pain. /Discuss referral to ortho for rt knee pain. ) HPI: HPI Patient presents for ER follow up with complaints as indicated above. His neck pain has been worse lately and he has been having more headaches. I have reviewed and reconciled the history and medication list with the patient today. Flowsheet Row Patient Outreach from 06/15/2024 in [facility] with Martha Gonzalez RN Hospital Information ED, Hospital or Shelter Facility Discharge? ED Patient has been contacted within 1 week of being seen in the ED Yes Diagnosis Cephalgia, hyperglycemia Discharge Date 06/13/24 Discharged To: Home Setting Discharge Hospital [facility] Engagement Call Start Time 1601 Admission Date 06/13/24 Medications Discharge medications reviewed and reconciled from hospital? Not applicable Does the patient have all medications ordered at discharge? Not applicable Is the patient taking all medications as directed (includes completed medication regime)? -- [pt did not respond if he was taking medication] Appointments Does the patient have a primary care provider? Yes [Pt states he will see when family can bring him] Self Management Has home health visited the patient within 72 hours of discharge? Not applicable Patient Teaching Does the patient have access to their discharge instructions? No What is the patient's perception of their health status since discharge? Same Wrap Up Wrap Up Additional Comments Pt presented to er, declined to have IV or any labs drawn. Pt given Toradol, compazine and Benadryl. BP and blood suar was elevated at er. Pt was not taking medication. Ptstates he will call back regarding an appointment. Call End Time 1606 HISTORIES: PAST MEDICAL HISTORY: Past Medical History: Diagnosis Date Adrenal adenoma, left 12/30/2022 Age-related nuclear cataract, bilateral Bipolar disorder (CMS/HCC) Carpal tunnel syndrome Cervical paraspinal muscle spasm Cholelithiasis Chronic sialoadenitis CKD (chronic kidney disease) stage 2, GFR 60-89 ml/min Disturbance of skin sensation ED (erectile dysfunction) Essential hypertension (CMS/HCC) SUKHJINDER (generalized anxiety disorder) (CMS/HCC) Gait abnormality History of colon polyps Hx of acute myocardial infarction (CMS/HCC) Hx of temporal arteritis Hyperlipidemia ([facility]/HCC) Irritable bowel syndrome Lipodermatosclerosis Lymphedema of both lower extremities Migraine ([facility]/HCC) Morbid obesity ([facility]/HCC) Multiple sclerosis, relapsing-remitting ([facility]/HCC) Nuclear senile cataract 01/03/2021 Obstructive sleep apnea CODIE (obstructive sleep apnea) Peripheral neuropathy PLMD (periodic limb movement disorder) Polypharmacy Primary open angle glaucoma (POAG) of both eyes, mild stage ([facility]/HCC) Primary osteoarthritis involving multiple joints PTSD (post-traumatic stress disorder) ([facility]/HCC) Seizure disorder ([facility]/HCC) Spinal stenosis of cervical region Type 2 diabetes mellitus ([facility]/HCC) Varicose veins of lower limb Varicose veins Venous insufficiency Vitamin B12 deficiency Vitamin D deficiency SURGICAL HISTORY: Past Surgical History: Procedure Laterality Date ARTERY BIOPSY Left 08/26/2016 temporal artery biopsy. Excision painful vein lt mormonism ARTERY BIOPSY Right 03/11/2014 temporal artery biopsy COLONOSCOPY 11/27/2018 CYST REMOVAL Excision of benign cyst back of neck, Friedman KNEE SURGERY arthroscopic knee surgery SOCIAL HISTORY: Social History Tobacco Use Smoking status: Some Days Types: Cigarettes Start date: 1989 Passive exposure: Past Smokeless tobacco: Never Tobacco comments: 5 or less cigs a day Vaping Use Vaping status: Never Used Substance Use Topics Alcohol use: Never Comment: Caffine intake: Coke Zero, 2-3 cans daily Drug use: Yes Types: Marijuana Comment: Daily Depression: Not at risk (02/25/2024) PHQ-2 PHQ-2 Score: 0 FAMILY HISTORY: Family History Problem Relation Name Age of Onset Cancer Mother anastacio gilbert COPD Mother anastacio gilbert Hypertension Father braulio chang Heart disease Father braulio chang Cancer Father braulio chang Diabetes Father braulio chang Liver disease Father braulio chang Alcohol abuse Father braulio chang Cancer Maternal Grandmother kae caceres MEDICATIONS: Current Outpatient Medications Medication Instructions ALPRAZolam (XANAX) 0.25 mg, Oral, 2 times daily PRN amitriptyline (ELAVIL) 25 mg, Oral, Nightly bimatoprost (Lumigan) 0.01 % ophthalmic solution 1 drop, Nightly Cannabinoids (medical cannabis) Medical Marijuana diclofenac (VOLTAREN) 75 mg, Oral, 2 times daily with meals, Do not crush, chew, or split. ergocalciferol (VITAMIN D-2) 1.25 mg, Oral, 2 times weekly HYDROcodone-acetaminophen (Mclean) 5-325 MG tablet 1-2 tablets, Oral, Every 6 hours PRN ibuprofen 800 mg, Oral, 3 times daily PRN insulin aspart (NovoLOG FLEXPEN) 100 UNIT/ML pen See admin instructions irbesartan (Avapro) 300 MG tablet TAKE 1 TABLET BY MOUTH DAILY Lancets Micro Thin 33G misc 1 Lancet , As needed methocarbamol (ROBAXIN) 750-1,500 mg, Oral, 3 times daily PRN metoprolol succinate XL (TOPROL-XL) 100 mg, Oral, Daily Ocrevus 600 mg, Over 6 months pregabalin (LYRICA) 300 mg, Oral, Nightly rosuvastatin (CRESTOR) 10 mg, Oral, Nightly tadalafil (CIALIS) 20 mg, Oral, Daily Tresiba FlexTouch 200 UNIT/ML injection INJECT 100 UNITS SUBCUTANEOUSLY EVERY DAY triamcinolone (Kenalog) 0.1 % cream 1 application , Topical, 2 times daily PRN, Avoid face and groin. Ubrogepant (Ubrelvy) 100 MG tablet Take 1 tablet by mouth. May take a second dose at least 2 hours after the first dose as needed ALLERGIES: Allergies Allergen Reactions Duloxetine Hcl Other Reaction(s): intolerance Natalizumab Other Reaction(s): AOF Semaglutide Other Reaction(s): nausea and vomiting Other Reaction(s): Other: See Comments Chills, nightmares, diarrhea PHYSICAL EXAM: Visit Vitals BP 140/80 Pulse 61 Ht 5' 9 Wt 317 lb 12.8 oz SpO2 99% BMI 46.93 kg/m Smoking Status Some Days BSA 2.65 m BP Readings from Last 3 Encounters: 06/29/24 140/80 06/03/24 142/88 05/25/24 148/82 Wt Readings from Last 3 Encounters: 06/29/24 317 lb 12.8 oz 06/03/24 313 lb 05/25/24 305 lb Physical Exam Vitals reviewed. Musculoskeletal: Comments: Right knee with no redness, warmth, or gross abnormalities ASSESSMENT AND PLAN: Assessment & Plan 1. Acute pain of right knee (Primary) Will send in a Rx for ibuprofen 800 mg TID PRN. Will also refer to Dr. Dueñas 2. Cervicogenic headache Continue Lyrica and follow up with neurology. 3. Chronic neck pain OARRS report was reviewed and there were no concerns. Continue current regimen. 4. History of migraine headaches Stable. Continue to monitor. 5. Myalgia Check labs. - PTH, intact - Uric acid - Sedimentation rate, automated - C-reactive protein - YOLANDA - Cyclic citrul peptide antibody, IgG - SJOGRENS ANTIBODIES (SS-A,SS-B) - Rheumatoid factor 6. Essential hypertension (CMS/HCC) Blood pressure doing well. Continue lifestyle modifications to include minimizing salt and alcohol,exercising regularly, and keeping weight down. Continue current medications. 7. Primary osteoarthritis involving multiple joints Doing well. Continue current regimen. - ibuprofen 800 MG tablet; Take 1 tablet (800 mg) by mouth 3 (three) times a day as needed for mildpain - PTH, intact - Uric acid - Sedimentation rate, automated - C-reactive protein - YOLANAD - Cyclic citrul peptide antibody, IgG - SJOGRENS ANTIBODIES (SS-A,SS-B) - Rheumatoid factor 8. Stage 1 chronic kidney disease Stable. Continue to monitor. - CBC auto differential - Comprehensive metabolic panel - PTH, intact - CK documented in this encounterSaint [facility]'s Health [id number] Telephone encounter Note* Telephone Encounter - Noa Hansen LPN - 06/22/2024 7:36 AM EST Pt is requesting a refill on Xanax to [facility] [id number] Miscellaneous Notes* Telephone Encounter - Noa Hansen LPN - 06/22/2024 7:36 AM EST Pt is requesting a refill on Xanax to [facility] documented in this encounterSaint Mary's Health [id number] Telephone encounter Note* Telephone Encounter - Prachi Rojas MA - 06/16/2024 1:15 PM EST Pt called and is requesting refill for Lyrica. He said he is doing well on the 300 mg dose at bedtime and is requesting 300 mg tabs instead of the 100 mg. Please send to [facility]. [place] [id number] Miscellaneous Notes* Telephone Encounter - Prachi Rojas MA - 06/16/2024 1:15 PM EST Pt called and is requesting refill for Lyrica. He said he is doing well on the 300 mg dose at bedtime and is requesting 300 mg tabs instead of the 100 mg. Please send to [facility]. documented in this encounterSaint Mary's [id number] History of Present illness Narrative* Yodit Jolly NP - 06/03/2024 1:40 PM EDT Images from the original note were not included. Yodit Jolly NP Chief Complaint Patient presents with Follow-up Multiple Sclerosis Subjective Kerline Chang is a 53 y.o. male. History of Present Illness The patient presents today for follow up. At the prior appointment on 05/04/2024, he was advised toproceed directly to the emergency department for evaluation due to a multitude of acute symptoms. The patient states he is feeling much better since that time, and many of his symptoms have resolved.He states some of his medication doses have been reduced, and his symptoms have subsequently improved. His Lyrica dose was lowered from 300 mg twice a day to 100 mg three times a day. He was prescribed vitamin D supplementation by Dr. Nisa Rojas (primary care provider). The patient denies any further syncopal episodes or confusion. He started taking his eyedrops againand states his blurry vision has resolved. He denies double vision or episodes of painful vision loss. He denies falls, coordination difficulty, or dizziness within the past week. He believes his prior symptoms were due to, all that medicine, primarily Lyrica. He states, at this point, he is in areally good place and just needs help with his headaches. The patient has headaches approximately every other day. He refers to them as, migraines. They are located in the bilateral occipital region and can radiate toward the frontal region. They tend to originate in the neck. He describes them as sharp and intermittent. They are not accompanied by nausea, vomiting, or increased sensitivity to light or sound. They are not accompanied by weakness, numbness, or paresthesias. He had occipital nerve blocks in the past and states these did not help. He does not take any [id number] medications for his symptoms. Review of Systems Constitutional: Negative for appetite change, chills, fatigue, fever and unexpected weight change. HENT: Negative for trouble swallowing and voice change. Eyes: Positive for bilateral blurry vision. Negative for double vision or loss of vision Respiratory: Negative for cough, shortness of breath and wheezing. Cardiovascular: Negative for chest pain and palpitations. Gastrointestinal: Positive for diarrhea (chronic - the patient states he is following with gastroenterology for this). Negative for abdominal pain, blood in stool, nausea and vomiting. Musculoskeletal: Negative for arthralgias, gait problem and myalgias. Neurological: Positive for headaches. Negative for dizziness, tremors, seizures, syncope, facial asymmetry, speech difficulty, weakness, light-headedness and numbness. Psychiatric/Behavioral: Negative for confusion, hallucinations, self-injury and suicidal ideas. Thepatient is nervous/anxious. Past Medical History: Diagnosis Date Adrenal adenoma, left 12/30/2022 Adrenal nodule (CMS/HCC) Age-related nuclear cataract, bilateral Anxiety Bipolar disorder (CMS/HCC) Carpal tunnel syndrome Cervical neck pain with evidence of disc disease Cervical paraspinal muscle spasm Cholelithiasis Chronic sialoadenitis CKD (chronic kidney disease) stage 2, GFR 60-89 ml/min Disturbance of skin sensation Dizziness DM type 2 (diabetes mellitus, type 2) ([facility]) ED (erectile dysfunction) Essential hypertension ([facility]/HCC) SUKHJINDER (generalized anxiety disorder) ([facility]) Gait abnormality Headache History of colon polyps Hx of acute myocardial infarction ([facility]/HCC) Hx of temporal arteritis Hyperlipidemia ([facility]) Hypertension ([facility]) Irritable bowel syndrome Lipodermatosclerosis Lymphedema of both lower extremities Migraine ([facility]/HCC) Morbid obesity ([facility]) Multiple sclerosis ([facility]) Multiple sclerosis, relapsing-remitting ([facility]) Nuclear senile cataract 01/03/2021 Obesity Obstructive sleep apnea CODIE (obstructive sleep apnea) Pain in limb Peripheral neuropathy PLMD (periodic limb movement disorder) Polypharmacy Primary open angle glaucoma (POAG) of both eyes, mild stage ([facility]) Primary osteoarthritis involving multiple joints PTSD (post-traumatic stress disorder) ([facility]) PTSD (post-traumatic stress disorder) ([facility]) Seizure disorder ([facility]) Spinal stenosis of cervical region Type 2 diabetes mellitus ([facility]) Varicose veins of lower limb Varicose veins Venous insufficiency Vitamin B12 deficiency Vitamin D deficiency Past Surgical History: Procedure Laterality Date ARTERY BIOPSY Left 08/26/2016 temporal artery biopsy. Excision painful vein lt mormonism ARTERY BIOPSY Right 03/11/2014 temporal artery biopsy COLONOSCOPY 11/27/2018 CYST REMOVAL Excision of benign cyst back of neck, Friedman KNEE SURGERY arthroscopic knee surgery Family History Problem Relation Name Age of Onset Cancer Mother anastacio gilbert COPD Mother anastacio gilbert Hypertension Father braulio chang Heart disease Father braulio chang Cancer Father braulio chang Diabetes Father braulio chang Liver disease Father braulio chang Alcohol abuse Father braulio chang Cancer Maternal Grandmother kae caceres Social History Tobacco Use Smoking status: Some Days Types: Cigarettes Start date: 1989 Passive exposure: Past Smokeless tobacco: Never Tobacco comments: 5 or less cigs a day Substance Use Topics Alcohol use: Never Comment: Caffine intake: Coke Zero, 2-3 cans daily Allergies: Duloxetine hcl, Natalizumab, and Semaglutide Vitals: 06/03/24 1343 BP: 142/88 Pulse: 96 SpO2: 98% Body mass index is 46.22 kg/m . weight: 313 lb Neurologic exam: Mental status and general appearance: Awake and alert with unlabored respirations. Oriented to person, place, and time. Recent and remotememory are primarily intact. Speech is clear and fluent without aphasia. Speech is non-dysarthric. Attention and concentration are mildly impaired. Fund of knowledge is appropriate for level of education. Cranial nerves: CN II: Visual acuity is normal. Visual elam full to confrontation. CN III, IV, : Pupils are equal, round, and reactive to light. Extraocular movements intact. No ptosis present. CN V: Facial sensation is normal. CN VII: Full and symmetric facial movement. CN VIII: Hearing is normal to finger rub bilaterally. CN IX and X: Palate elevates symmetrically. CN XI: Shoulder shrug is normal bilaterally. CN XII: Tongue is midline without atrophy or fasciculation. Motor: RUE strength deltoid , biceps , triceps , wrist extensors , wrist flexor , and adapted physical education teacher strength 5/5. LUE strength deltoid , biceps , triceps , wrist extensors , wrist flexor , and adapted physical education teacher strength 5/5. RLE strength iliopsoas, quadriceps, tibialis anterior, plantar flexion, and dorsiflexion strength 5/5. LLE strength iliopsoas, quadriceps, tibialis anterior, plantar flexion, and dorsiflexion strength 5/5. Tone and bulk are normal. Sensory: Sensation is intact to light touch throughout all four extremities. Sensation is intact to temperature in all extremities. Reflexes: RUE biceps reflex 1+ , brachioradialis reflex 1+. LUE biceps reflex 1+ , brachioradialis reflex 1+. RLE Knee reflex 0. LLE Knee reflex 0. Coordination: [id number] testing normal. Rapid alternating movements normal. Gait: Steady. Review and summary of old records: I reviewed the patient's Emergency Department (ED) note from [facility] [place] [place] on 05/04/24. The patient presentedto the ED on that date for worsening headache, neuro symptoms, and fall with knee pain. Per ED note, the patient was not ataxic during their exam and had a normal neurologic examination. He was administered medication for his headache and then requested to leave prior to any work up (including CT of the brain) being completed. Labs at [facility] [place] [place] on 02/25/24: CMP unremarkable aside from sodium 134, potassium 5.2, and alk phos 176. Vitamin D 25-OH 24.6 (low). CBC generally unremarkable. IgG 989. Hemoglobin A1c 12.5% - patient to address with primary care provider. MRI of the cervical spine without contrast on 03/25/2023: No cord compression or cord signal abnormality. Multiple level degenerative changes. MRI of the brain and MR angiogram of the head without contrast on 03/11/2023: Moderate amount of scattered white matter disease likely related to diagnosis of MS. No active enhancement or demyelination. No acute intracranial process. Labs from 12/09/2022: CBC unremarkable ALC 1300, CMP unremarkable, Hgb A1C 11.7% Labs from 05/01/2022: CBC unremarkable with ALC 1200; CMP with REINIER; Hepatitis panel negative; IgG 876, IgM 51; VZV with IgG immunity; JCV negative; HIV nonreactive MRI brain with and without contrast at [facility] [place] [place] on 03/13/2022: Findings consistent with multiple sclerosis with interval disease progression. No evidence of diffusion restriction or abnormal postcontrastenhancement is noted to suggest active demyelination of the current study. Labs from 02/20/2022: CMP unremarkable aside from elevated glucose; CBC unremarkable with ALC 1245;TSH 0.61; ferritin 162 MRI brain from 12/20/2020 without contrast shows stable findings consistent with multiple sclerosis. VNG from 12/07/6020: Significant vestibular dysfunction both centrally and peripherally. MRI cervical spine w/o contrast on 10/26/2020: Mild multilevel degenerative changes of the cervicalspine as detailed, not significantly changed from prior examination. No high-grade neuroforaminal or spinal canal stenosis. 07/2020 CBC CMP checked out unremarkable. Routine EEG on 03/02/2020: Normal. MRI cervical spine from 10/06/18: Without any edema and a change MRI brain from 11/06/2018: Shows multiple deep white matter hyperintensities but none that are active. MRI brain without contrast from 12/23/16: Shows mild to moderate periventricular white matter lesions. Assessment/Plan Diagnoses and all orders for this visit: Relapsing remitting multiple sclerosis (MS) (CMS/HCC) The patient has relapsing remitting multiple sclerosis. He was previously on Tecfidera. However, MRI of the brain on 03/13/22 revealed interval disease progression, so he was transitioned to Ocrevus which he has been tolerating well. Recent MRIs of the brain and cervical spine in March 2023 seemed to suggest stability of the disease. The patient's next infusion is reportedly scheduled for 06/10/2024. PLAN: - Continue Ocrevus 600 mg IV every six months - MRI of the brain for MS surveillance - I have discussed potential side effects of Ocrevus including infusion reaction, allergic reaction, kidney or liver damage, PML, increased susceptibility to acute infections, and increased cancer risk with the patient. The patient verbalizes understanding and wishes to proceed Encounter for medication monitoring Ocrevus use. PLAN: - Check labs (CBC, CMP, and IgG) Ataxia Demonstrated on prior examination though not apparent today. The patient was advised to proceed to the emergency department on 05/04/24 due to ataxia and a multitude of acute symptoms. It seems he wasevaluated in the ED on that date but left after prior to any work up being completed. He also was not ataxic in the ED per their documentation. I do have strong suspicion for a functional component to the patient's symptoms given the fluctuating nature. He is not ataxic on clinical exam today and states his coordination and balance have been good recently. PLAN: - MRI of the brain to evaluate to assess for an intracranial process which may be contributing to the patient's symptoms Bilateral occipital neuralgia It is my impression that the patient has bilateral occipital neuralgia. He reports headaches clinically consistent with this and has tenderness overlying the greater and lesser occipital nerves on clinical exam. He has reportedly tried occipital nerve blocks in the past and states these were ineffective. PLAN: - The patient is taking Lyrica 100 mg by mouth three times a day, amitriptyline 25 mg by mouth oncea day, and methocarbamol as needed (prescribed by PCP) which could all potentially provide benefit for occipital neuralgia - I discussed alternative treatment options for occipital neuralgia with the patient in detail today. I discussed possible dose increase of amitriptyline to help improve headache control. Following discussion, the patient declines any further interventions. He states he does not wish to take any additional medications or see pain management for his headaches Central vestibular vertigo Previous VNG identified evidence of peripheral and central vestibular dysfunction. MRI of the brainon 03/11/23 revealed a moderate amount of scattered white matter disease but was otherwise generally unremarkable. Perhaps MS could be playing a role here. Bipolar 1 disorder The patient does have a history of Bipolar disorder and frequent emergency department visits where he was noted to leave against medical advice. He denies any suicidal or homicidal ideations. I believe his Bipolar disorder and fluctuations in mood/compliance substantially impact the ability to treat him reliably. PLAN: - I strongly recommended referral to psychiatry and counseling to help improve management of the patient's Bipolar, depression, and anxiety. The patient again refused Restless legs syndrome (RLS) The patient previously reported symptoms of restless leg syndrome. Ferritin level on 02/20/22 was within normal limits. He is longer taking Abilify, and his RLS seems to be stable now. At the prior appointment, the patient reported intermittent syncopal episodes and shortness of breath. He states these have both resolved. I strongly recommended EEG and cardiology referral to evaluate for possible causes of his previous symptoms. The patient declines any testing in regard to this.He states he will not complete the EEG or see cardiology despite detailed discussion regarding the purpose of these recommendations. I informed the patient that life-threatening conditions such as cardiac arrhythmia, heart disease, or epilepsy could be missed without work up. He verbalizes understanding and accepts this risk Diagnosis and treatment options discussed in detail. All questions answered. The patient verbalizesunderstanding and is agreeable to the plan. Discussion in layman's terms. Follow up in the office within 1 to 2 months; sooner if needed for new or worsening symptoms. Yodit Jolly NP [facility] documented in this [facility]10-31-2024 Instructions* Patient Instructions* Yodit Jolly NP - 06/03/2024 1:40 PM EDT - MRI of the brain - Check labs (CBC, CMP, and IgG) documented in this [facility]10-25-2024 History of Present illness Narrative* Brady Mary DPM - 05/28/2024 10:00 AM EDT Images from the original note were not included. HPI: Diabetic/Routine Nail Care: Patient is being treated by [facility] neurology.05/12/2024 Side: CECILY. Location: toenails. Duration: ongoing. Severity of symptoms: mild. Onset: gradual. Status: improves with debridement on toenails. NAILS: thickened, discolored, pain, discolored, crusty, elongated . Associated Symptoms: ingrowing toenails. Relieved by: debridement, filing down nails, clipping nails. Previous Treatment: debridement. History of ulcers/wounds: no. Has treatment helped with pain: yes . Recent BS reading, if diabetic: A1c 8.8 PCP: Dr Rojas. 05/25/24 Aggravated by: shoe gear, pressure. Risk factors: diabetes, curvature of nails, hard to trim, ingrown. Examination: General Examination: GENERAL EXAMINATIONalert, well hydrated, in no distress , awake, aware of surroundings. FOOT EXAM: 05/28/24 Vascular: DORSALIS PEDIS PULSE:2/4, bilaterally. POSTERIOR TIBIAL PULSE:1/4, bilaterally. TEMPERATURE GRADIENT:warm to cool. EDEMA:Moderate lower extremity edema left greater than right due to venous insufficiency. CAPILLARY FILLING TIME(sec):less than 3 seconds. Neurologic: VIBRATORY:Decreased vibratory sensation first MP joint bilaterally. SEMMES-THERESE 5.07 MONOFILAMENTDecreased light touch sensation with monofilament distal to the midfoot right and distal to the ankle joint left. Dermatologic: HYPERKERATOSIS:None. NAIL PATHOLOGY:See below. SKIN PATHOLOGY:Skin is slightly thin with diminished hair growth and varicosities noted bilaterally. Nail Pathology: Left Foot: 1 (great toe)Long, Thick, Crumbly, Deformed, Discolored, Brittle, Dystrophic nail spicule over the tibial margin of the left hallux. The rest of the nail plate has been removed through a permanent nail avulsion. 2Long, Thick, Crumbly, Deformed, Discolored, Brittle, Dystrophic. 3Long, Thick, Crumbly, Deformed, Discolored, Brittle, Dystrophic. 4Long, Thick, Crumbly, Deformed, Discolored, Brittle, Dystrophic. 5Long, Thick, Crumbly, Deformed, Discolored, Brittle, Dystrophic. Nail Pathology: Right Foot: 1 (great toe)Long, Thick, Crumbly, Deformed, Discolored, Brittle, Dystrophic. 2Long, Thick, Crumbly, Deformed, Discolored, Brittle, Dystrophic. 3Long, Thick, Crumbly, Deformed, Discolored, Brittle, Dystrophic. 4Long, Thick, Crumbly, Deformed, Discolored, Brittle, Dystrophic. 5Long, Thick, Crumbly, Deformed, Discolored, Brittle, Dystrophic. Ankle / Foot: RANGE OF MOTION:full range of motion without pain. MUSCLE STRENGTH:5/5. Orthopedic: FOOT MORPHOLOGY:planus . DEFORMITIES:Hyperpronation and mild hammertoe deformities bilaterally . PAIN ELICITED WITH PALPATION OFNo recurrence of right heel pain. MUSCLE STRENGTH5/5 for all pedal groups tested . Modifier: -Q9. Assessment: 1. Onychomycosis - B35.1 (Primary) 2. 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 MS (multiple sclerosis) - G35 4. Venous insufficiency - I87.2 5. Plantar fasciitis, right - M72.2 Plan: Diabetes, Onychomycosis: 1. Nails were debrided in length and thickness by manual and mechanical means. 2. Advised patient on continued proper diabetic foot care including daily monitoring of their feet for any new complaints or concerns that may arise. 3. Discussed importance of tight blood sugar control to prevent future complications. 4. RTC: 9-12 weeks or as needed if problems arise. documented in this encounterSaint [facility] [id number] History of Present illness Narrative* Nisa Rojas MD - 05/25/2024 1:00 PM EDT Images from the original note were not included. Kerline Chang is a 53 y.o. male presents with chief complaint of 3 Month Follow-up (Review lab drawn 05/21/2024, HbA1c = 12.1) and dizziness, falls (Discuss changing Lyrica to Gabapentin) HPI: History of Present Illness The patient presents for evaluation of multiple medical concerns. He reports experiencing daily headaches and has an upcoming appointment with a neurologist on 06/03/2024. He believes his current medication, Lyrica 300 mg taken twice daily, is causing him to fall and is considering switching to gabapentin. He occasionally misses his insulin doses and had a periodof depression during which he did not take any medication for about a month. He reports no respiratory issues or chest pain. He has been experiencing knee pain, which he describes as throbbing unless he takes diclofenac. He received a cortisone injection, but it did not provide relief. He has fallen on the knee twice, which has exacerbated the pain. He has previously found relief from cortisone injections, but this time it was ineffective. He reports frequent diarrhea but no stomach burning. He is not currently taking any medication for his stomach. He has had a colonoscopy in the past and is due for another one, but has been postponing it. I have reviewed and reconciled the history and medication list with the patient today. Flowsheet Row Patient Outreach from 05/21/2024 in [facility] with Martha Gonzalez RN Hospital Information ED, Hospital or Shelter Facility Discharge? ED Patient has been contacted within 1 week of being seen in the ED Yes Diagnosis lumbar strain, closed head injury, headache, cervical strain, Fall Discharge Date 05/15/24 Discharged To: Home Setting Discharge Hospital [facility] Engagement Call Start Time 1302 Admission Date 05/15/24 Medications Discharge medications reviewed and reconciled from hospital? Not applicable Does the patient have all medications ordered at discharge? Not applicable Prescription Comments no new prescriptions Appointments Does the patient have a primary care provider? Yes [appt on 05/25] Nursing Interventions Verified appointment date/time/provider Self Management Has home health visited the patient within 72 hours of discharge? Not applicable Patient Teaching Does the patient have access to their discharge instructions? No What is the patient's perception of their health status since discharge? Improving Wrap Up Wrap Up Additional Comments Pt presented to ER after catching his toe on carpet, causing right kneeto pop and he fell (05/14). Went to ER on 05/[address] due [address]. Had [address] head and Cervical spine, LumbarXrays, Xray right knee. Moose wrap applied. Pt states he just has pain in his right knee. Call End Time 1308 HISTORIES: PAST MEDICAL HISTORY: Past Medical History: Diagnosis Date Adrenal adenoma, left 12/30/2022 Adrenal nodule (CMS/HCC) Age-related nuclear cataract, bilateral Anxiety Bipolar disorder (CMS/HCC) Carpal tunnel syndrome Cervical neck pain with evidence of disc disease Cervical paraspinal muscle spasm Cholelithiasis Chronic sialoadenitis CKD (chronic kidney disease) stage 2, GFR 60-89 ml/min Disturbance of skin sensation Dizziness DM type 2 (diabetes mellitus, type 2) (CMS/HCC) ED (erectile dysfunction) Essential hypertension (CMS/HCC) SUKHJINDER (generalized anxiety disorder) (CMS/HCC) Gait abnormality Headache History of colon polyps Hx of acute myocardial infarction (CMS/HCC) Hx of temporal arteritis Hyperlipidemia (CMS/HCC) Hypertension (CMS/HCC) Irritable bowel syndrome Lipodermatosclerosis Lymphedema of both lower extremities Migraine (CMS/HCC) Morbid obesity (CMS/HCC) Multiple sclerosis (CMS/HCC) Multiple sclerosis, relapsing-remitting (CMS/HCC) Nuclear senile cataract 01/03/2021 Obesity Obstructive sleep apnea CODIE (obstructive sleep apnea) Pain in limb Peripheral neuropathy PLMD (periodic limb movement disorder) Polypharmacy Primary open angle glaucoma (POAG) of both eyes, mild stage (CMS/HCC) Primary osteoarthritis involving multiple joints PTSD (post-traumatic stress disorder) ([facility]/HCC) PTSD (post-traumatic stress disorder) ([facility]/HCC) Seizure disorder ([facility]/HCC) Spinal stenosis of cervical region Type 2 diabetes mellitus (CMS/HCC) Varicose veins of lower limb Varicose veins Venous insufficiency Vitamin B12 deficiency Vitamin D deficiency SURGICAL HISTORY: Past Surgical History: Procedure Laterality Date ARTERY BIOPSY Left 08/26/2016 temporal artery biopsy. Excision painful vein lt mormonism ARTERY BIOPSY Right 03/11/2014 temporal artery biopsy COLONOSCOPY 11/27/2018 CYST REMOVAL Excision of benign cyst back of neck, Friedman KNEE SURGERY arthroscopic knee surgery SOCIAL HISTORY: Social History Tobacco Use Smoking status: Some Days Types: Cigarettes Start date: 1989 Passive exposure: Past Smokeless tobacco: Never Tobacco comments: 5 or less cigs a day Vaping Use Vaping status: Never Used Substance Use Topics Alcohol use: Never Comment: Caffine intake: Coke Zero, 2-3 cans daily Drug use: Yes Types: Marijuana Comment: Daily Depression: Not at risk (02/25/2024) PHQ-2 PHQ-2 Score: 0 FAMILY HISTORY: Family History Problem Relation Name Age of Onset Cancer Mother anastacio gilbert COPD Mother anastacio gilbert Hypertension Father braulio chang Heart disease Father braulio chang Cancer Father braulio chang Diabetes Father braulio chang Liver disease Father braulio chang Alcohol abuse Father braulio chang Cancer Maternal Grandmother kae caceres MEDICATIONS: Current Outpatient Medications Medication Instructions ALPRAZolam (XANAX) 0.25 mg, Oral, 2 times daily PRN amitriptyline (ELAVIL) 25 mg, Oral, Nightly bimatoprost (Lumigan) 0.01 % ophthalmic solution 1 drop, Nightly Cannabinoids (medical cannabis) Medical Marijuana diclofenac (VOLTAREN) 75 mg, Oral, 2 times daily with meals, Do not crush, chew, or split. HYDROcodone-acetaminophen (Mclean) 5-325 MG tablet 1-2 tablets, Oral, Every 6 hours PRN insulin aspart (NovoLOG FLEXPEN) 100 UNIT/ML pen See admin instructions irbesartan (Avapro) 300 MG tablet TAKE 1 TABLET BY MOUTH DAILY Lancets Micro Thin 33G misc 1 Lancet , As needed methocarbamol (ROBAXIN) 750-1,500 mg, Oral, 3 times daily PRN metoprolol succinate XL (TOPROL-XL) 100 mg, Oral, Daily Ocrevus 600 mg, Over 6 months pregabalin (LYRICA) 300 mg, Oral, 2 times daily rosuvastatin (CRESTOR) 10 mg, Oral, Nightly tadalafil (CIALIS) 20 mg, Oral, Daily Tresiba FlexTouch 200 UNIT/ML injection INJECT 100 UNITS SUBCUTANEOUSLY EVERY DAY triamcinolone (Kenalog) 0.1 % cream 1 application , Topical, 2 times daily PRN, Avoid face and groin. ALLERGIES: Allergies Allergen Reactions Duloxetine Hcl Other Reaction(s): intolerance Natalizumab Other Reaction(s): AOF Semaglutide Other Reaction(s): nausea and vomiting Other Reaction(s): Other: See Comments Chills, nightmares, diarrhea PHYSICAL EXAM: Visit Vitals BP 148/82 Pulse 53 Ht 5' 9 Wt 305 lb SpO2 98% BMI 45.04 kg/m Smoking Status Some Days BSA 2.59 m BP Readings from Last 3 Encounters: 05/25/24 148/82 05/04/24 (!) 166/94 04/27/24 (!) 152/94 Wt Readings from Last 3 Encounters: 05/25/24 305 lb 05/04/24 293 lb 04/27/24 297 lb Physical Exam HENT: Right Ear: Tympanic membrane and external ear normal. Left Ear: Tympanic membrane and external ear normal. Mouth/Throat: Mouth: Mucous membranes are moist. Neck: Thyroid: No thyroid mass or thyromegaly. Cardiovascular: Rate and Rhythm: Normal rate and regular rhythm. Heart sounds: No murmur heard. No friction rub. No gallop. Pulmonary: Effort: Pulmonary effort is normal. Breath sounds: Normal breath sounds. Abdominal: General: Bowel sounds are normal. Palpations: Abdomen is soft. Tenderness: There is no abdominal tenderness. Musculoskeletal: Right lower leg: No edema. Left lower leg: No edema. Skin: General: Skin is warm and dry. Neurological: Mental Status: He is alert and oriented to person, place, and time. Psychiatric: Thought Content: Thought content normal. Results Laboratory Studies A1c increased from 8.8 to 12.1. Vitamin D level was low. Potassium and one liver enzyme were slightly elevated. ASSESSMENT AND PLAN: Assessment & Plan 1. Type 2 diabetes mellitus with diabetic neuropathy, with long-term current use of insulin ([facility]) (Primary) His A1c has increased from 8.8 to 12.1, indicating poor glycemic control. He admitted to missing insulin doses frequently due to depression and not taking any medication for about a month. He is now getting back on track with his medication regimen. 2. Essential hypertension (CMS/HCC) Doing well. Blood pressures have been good. Continue lifestyle modifications. Continue current medication. Call if any problems or if home blood pressures rising. 3. Pure hypercholesterolemia (CMS/HCC) Continue current medication, eat a healthy diet, and exercise regularly. 4. Hyperparathyroidism, unspecified (CMS/HCC) Stable. Continue to monitor. 5. Bipolar 1 disorder, mixed (CMS/[facility]) He does not wish to restart Abilify although we discussed that he was much calmer on this. He will monitor since he kicked his roommates out and feels this will help. 6. MS (multiple sclerosis) ([facility]/HCC) Stable. Follows with Neurology. 7. Chronic bilateral low back pain without sciatica Doing well. OARRS report was reviewed and there were no concerns. Continue current regimen. Will follow-up in 3 months to reassess and review OARRS report again. 8. Seizure disorder (CMS/HCC) Denies issues. Continue to monitor. 9. Polyneuropathy associated with underlying disease ([facility]/HCC) He has identified that Lyrica 300 mg twice a day has been causing frequent falls. A plan to wean down the Lyrica dosage and potentially switch to gabapentin if necessary was discussed. The prescription for a lower dose of Lyrica will be called in. - pregabalin (Lyrica) 100 MG capsule; Take 1 capsule (100 mg) by mouth in the morning and 1 capsule(100 mg) in the evening and 1 capsule (100 mg) before bedtime. Dispense: 90 capsule; Refill: 5 10. Vitamin B12 deficiency He is not taking supplement. Continue to monitor. 11. Vitamin D deficiency His vitamin D level is low. A prescription for vitamin D 50,000 IU twice a week will be provided toaddress the deficiency. Then written instructions given to take 2,000 once daily after RX finished. - ergocalciferol (Vitamin D-2) 1.25 MG (39918 UT) capsule; Take 1 capsule (1.25 mg) by mouth 2 (two) times a week Dispense: 16 capsule; Refill: 0 12. Diarrhea, unspecified type He reports frequent diarrhea and has not been taking any stomach medication. He is due for a colonoscopy and has been advised to schedule it. A referral for a colonoscopy will be made to further investigate the cause of his symptoms. Will check stool studies soon, he is aware to go to [facility] [place] [place]. - Clostridium difficile toxin - Stool culture - Ova and parasite examination - Pancreatic elastase, fecal - Ambulatory referral to Gastroenterology; Future 13. Cervicogenic headache He reports experiencing daily headaches and is awaiting further evaluation by neurology on June 03. He has identified that Lyrica 300 mg twice a day has been causing frequent falls. 14. Morbid obesity (CMS/HCC) Encouraged to eat a healthy diet and exercise regularly. 15. BMI 45.0-49.9, adult (CMS/HCC) As above. Patient was seen and examined with Adela Hutton CNP. History was confirmed and verified. Chaney elements of the exam were also completed. Assessment and plan were reviewed and addended as needed. Agree with documentation above. documented in this encounterSaint Mary[facility] Health [id number] Telephone encounter Note* Telephone Encounter - Rodriguez Lane LPN - 05/18/2024 3:35 PM EDT Patient LVM requesting refill on Mclean ERX to [facility] [place]. States he has been falling a lot and the Mclean takes care of the pain RX loaded [facility] [id number] Miscellaneous Notes* Telephone Encounter - Rodriguez Lane LPN - 05/18/2024 3:35 PM EDT Patient LVM requesting refill on Mclean ERX to [facility] [place]. States he has been falling a lot and the Mclean takes care of the pain RX loaded * Telephone Encounter - Noa Hansen LPN - 05/18/2024 2:52 PM EDT Pt called to say that he fell on his right knee a few weeks ago, he went to the ER yesterday for this and they did nothing. He was in the office on 04/27 and saw Summer for migraines and Right knee pain. Had Xrays on 04/17 and 05/15, that show edema and spurring but no displacement or fractures. But he said his knee is on fire and his foot is numb documented in this encounterSaint Mary's Health [id number] Telephone encounter Note* Telephone Encounter - Noa Hansen LPN - 05/18/2024 2:52 PM EDT Pt called to say that he fell on his right knee a few weeks ago, he went to the ER yesterday for this and they did nothing. He was in the office on 04/27 and saw Summer for migraines and Right knee pain. Had Xrays on 04/17 and 05/15, that show edema and spurring but no displacement or fractures. But he said his knee is on fire and his foot is numb [facility] [id number] History of Present illness Narrative* Josefina Sanchez, CUT OFF OPERATOR SCORER - 05/06/2024 1:00 PM EDT Images from the original note were not included. Kerline Chang is a 53 y.o. male presents with chief complaint of RT Knee Injection HPI: HPI History of Present Illness C/o right knee pain. Previous injection worked a long time. HISTORIES: PAST MEDICAL HISTORY: Past Medical History: Diagnosis Date Adrenal adenoma, left 12/30/2022 Adrenal nodule (CMS/HCC) Age-related nuclear cataract, bilateral Anxiety Bipolar disorder (CMS/HCC) Carpal tunnel syndrome Cervical neck pain with evidence of disc disease Cervical paraspinal muscle spasm Cholelithiasis Chronic sialoadenitis CKD (chronic kidney disease) stage 2, GFR 60-89 ml/min Disturbance of skin sensation Dizziness DM type 2 (diabetes mellitus, type 2) (CMS/HCC) ED (erectile dysfunction) Essential hypertension (CMS/HCC) SUKHJINDER (generalized anxiety disorder) (CMS/HCC) Gait abnormality Headache History of colon polyps Hx of acute myocardial infarction (CMS/HCC) Hx of temporal arteritis Hyperlipidemia (CMS/HCC) Hypertension (CMS/HCC) Irritable bowel syndrome Lipodermatosclerosis Lymphedema of both lower extremities Migraine (CMS/HCC) Morbid obesity (CMS/HCC) Multiple sclerosis (CMS/HCC) Multiple sclerosis, relapsing-remitting (CMS/HCC) Nuclear senile cataract 01/03/2021 Obesity Obstructive sleep apnea CODIE (obstructive sleep apnea) Pain in limb Peripheral neuropathy PLMD (periodic limb movement disorder) Polypharmacy Primary open angle glaucoma (POAG) of both eyes, mild stage (CMS/HCC) Primary osteoarthritis involving multiple joints PTSD (post-traumatic stress disorder) (CMS/HCC) PTSD (post-traumatic stress disorder) (CMS/HCC) Seizure disorder (CMS/HCC) Spinal stenosis of cervical region Type 2 diabetes mellitus (CMS/HCC) Varicose veins of lower limb Varicose veins Venous insufficiency Vitamin B12 deficiency Vitamin D deficiency SURGICAL HISTORY: Past Surgical History: Procedure Laterality Date ARTERY BIOPSY Left 08/26/2016 temporal artery biopsy. Excision painful vein lt mormonism ARTERY BIOPSY Right 03/11/2014 temporal artery biopsy COLONOSCOPY 11/27/2018 CYST REMOVAL Excision of benign cyst back of neck, Friedman KNEE SURGERY arthroscopic knee surgery SOCIAL HISTORY: Social History Tobacco Use Smoking status: Some Days Types: Cigarettes Start date: 1989 Passive exposure: Past Smokeless tobacco: Never Tobacco comments: 5 or less cigs a day Vaping Use Vaping status: Never Used Substance Use Topics Alcohol use: Never Comment: Caffine intake: Coke Zero, 2-3 cans daily Drug use: Yes Types: Marijuana Comment: Daily Depression: Not at risk (02/25/2024) PHQ-2 PHQ-2 Score: 0 FAMILY HISTORY: Family History Problem Relation Name Age of Onset Cancer Mother anastacio gilbert COPD Mother anastacio gilbert Hypertension Father braulio chang Heart disease Father braulio chang Cancer Father braulio chang Diabetes Father braulio chang Liver disease Father braulio chang Alcohol abuse Father braulio chang Cancer Maternal Grandmother kae caceres MEDICATIONS: Current Outpatient Medications Medication Instructions amitriptyline (ELAVIL) 25 mg, Oral, Nightly ARIPiprazole (ABILIFY) 5 mg, Oral, Daily bimatoprost (Lumigan) 0.01 % ophthalmic solution 1 drop, Both Eyes, Nightly Cannabinoids (medical cannabis) Medical Marijuana hydroCHLOROthiazide (HYDRODIURIL) 25 mg, Oral, Daily HYDROcodone-acetaminophen (Mclean) 5-325 MG tablet 1-2 tablets, Oral, Every 6 hours PRN insulin aspart (NovoLOG FLEXPEN) 100 UNIT/ML pen Subcutaneous, See admin instructions, Injection per sliding scale irbesartan (Avapro) 300 MG tablet TAKE 1 TABLET BY MOUTH DAILY Lancets Micro Thin 33G misc 1 Lancet , In Vitro, As needed methocarbamol (ROBAXIN) 750-1,500 mg, Oral, 3 times daily PRN metoprolol succinate XL (TOPROL-XL) 100 mg, Oral, Daily ocrelizumab (Ocrevus) 300 MG/10ML solution 10 mL, Intravenous, Over 6 months pregabalin (LYRICA) 300 mg, Oral, 2 times daily rosuvastatin (CRESTOR) 10 mg, Oral, Nightly tadalafil (CIALIS) 20 mg, Oral, Daily Tresiba FlexTouch 200 UNIT/ML injection INJECT 100 UNITS SUBCUTANEOUSLY EVERY DAY triamcinolone (Kenalog) 0.1 % cream 1 application , Topical, 2 times daily PRN, Avoid face and groin. ALLERGIES: Allergies Allergen Reactions Duloxetine Hcl Other Reaction(s): intolerance Natalizumab Other Reaction(s): AOF Semaglutide Other Reaction(s): nausea and vomiting Other Reaction(s): Other: See Comments Chills, nightmares, diarrhea PHYSICAL EXAM: Visit Vitals Smoking Status Some Days BP Readings from Last 3 Encounters: 05/04/24 (!) 166/94 04/27/24 (!) 152/94 03/12/24 142/78 Wt Readings from Last 3 Encounters: 05/04/24 293 lb 04/27/24 297 lb 03/12/24 301 lb Physical Exam Physical Exam Results ASSESSMENT AND PLAN: Assessment & Plan Diagnosis Plan 1. Localized osteoarthritis of right knee Significant narrowing of lateral joint of right knee. No effusion. Ultrasound guided injection was performed using semi-sterile technique. Ethyl chloride was used as topical anesthetic. Skin was cleansed with alcohol wipe. 23 gauge 1 and half inch needle inserted into the joint using lateral approach. No effusion present. 2 ml 1% lidocaine and 1 ml 40 mg kenalog injected into the joint. Injection administered without complication. Discussed SynoJoynt if pain relief is not long lasting. Patient is here for follow up of chronic conditions. I am following Dr Solares's established plan of care for these issues. Dr Solares is remotely available today and is supervising patient care. documented in this [facility]10-02-2024 Telephone encounter Note* Telephone Encounter - Noa Hansen LPN - 05/05/2024 7:50 AM EDT Pt is requesting a refill on Pregabalin to [facility] [place] [facility] [id number] Miscellaneous Notes* Telephone Encounter - Noa Hansen LPN - 05/05/2024 7:50 AM EDT Pt is requesting a refill on Pregabalin to [facility] [place] documented in this [facility]10-01-2024 Telephone encounter Note* Telephone Encounter - Yodit Jolly NP - 05/04/2024 2:31 PM EDT Thank you! [facility] Work Phone: 1(238) 468-569010-01-2024 Miscellaneous Notes* Telephone Encounter - Yodit Jolly NP - 05/04/2024 2:31 PM EDT Thank you! * Telephone Encounter - Judith Barahona MA - 05/04/2024 2:19 PM EDT I faxed the results over and called to let them I faxed the results over so his PCP can review and management. * Telephone Encounter - Yodit Jolly NP - 05/04/2024 1:05 PM EDT Parathyroid hormone was elevated at 150.9 on 02/25/24. We did not order this lab as far as I can tell. I am not sure who did. Labs also revealed low sodium (134), elevated potassium (5.2), and elevated alk phos. I do not believe the patient's Ocrevus would be causative for these abnormalities. Can you please send the result to the patient's primary care provider for review and management? documented in this encounterSaint Mary's Health [id number] Telephone encounter Note* Telephone Encounter - Judith Barahona MA - 05/04/2024 2:19 PM EDT I faxed the results over and called to let them I faxed the results over so his PCP can review and management. [facility] [id number] Telephone encounter Note* Telephone Encounter - Yodit Jolly NP - 05/04/2024 1:05 PM EDT Parathyroid hormone was elevated at 150.9 on 02/25/24. We did not order this lab as far as I can tell. I am not sure who did. Labs also revealed low sodium (134), elevated potassium (5.2), and elevated alk phos. I do not believe the patient's Ocrevus would be causative for these abnormalities. Can you please send the result to the patient's primary care provider for review and management? [facility] [id number] History of Present illness Narrative* Yodit Jolly NP - 05/04/2024 1:00 PM EDT Images from the original note were not included. Yodit Jolly NP Chief Complaint Patient presents with Multiple Sclerosis Subjective Kerline Chang is a 53 y.o. male. HPI The patient presents today for follow up. He had labs completed for review. He states his most recent Ocrevus infusion was well tolerated, and he denies any adverse effects. His next Ocrevus infusionis scheduled for 06/06/2024. The patient reports a multitude of acute concerns today. He reports episodic loss of consciousness with onset approximately 1 to 2 weeks ago. He is unable to specify how frequently he is losing consciousness and is unable to specify if he has prodromal or accompanying symptoms. He states, it's so hard to think honey, I'm so sorry. The patient also states he has had, uncontrollable diarrhea, re cently. He reports intermittent dizziness which he describes as a false sensation of spinning. He states he walks slowly to try to keep everything straight. He has not been utilizing his cane recently. The patient reports intermittent confusion with onset months ago. He states he does not know where he is at or what he is doing at times. He states he sat in his car yesterday for over 30 minutes andis unsure why. His roommate came out to check on him and accompanied him inside. The patient also reports intermittent blurry vision in the bilateral eyes and intermittent difficulty breathing. He wonders if his symptoms are due to anxiety but states, I don't need a damn shrink; I'm not going crazy. Dr. Rojas should be able to handle it. He is crying frequently. He denies suicidal or homicidal ideations. He denies double vision, monocular vision loss, or chest pain. He denies any further new concerns. Review of Systems Constitutional: Negative for appetite change, chills, fatigue, fever and unexpected weight change. HENT: Negative for trouble swallowing and voice change. Eyes: Positive for bilateral blurry vision. Negative for double vision or loss of vision Respiratory: Positive for shortness of breath. Negative for cough and wheezing. Cardiovascular: Negative for chest pain and palpitations. Gastrointestinal: Positive for diarrhea. Negative for abdominal pain, blood in stool, nausea and vomiting. Musculoskeletal: Negative for arthralgias, gait problem and myalgias. Neurological: Positive for dizziness, syncope and headaches. Negative for tremors, seizures, facialasymmetry, speech difficulty, weakness, light- headedness and numbness. Psychiatric/Behavioral: Positive for confusion. Negative for hallucinations, self-injury and suicidal ideas. The patient is nervous/anxious. Medication List amitriptyline 25 MG tablet; Commonly known as: Elavil; Take 1 tablet (25 mg) by mouth at bedtime irbesartan 300 MG tablet; Commonly known as: Avapro; TAKE 1 TABLET BY MOUTH DAILY Lancets Micro Thin 33G misc Lumigan 0.01 % ophthalmic solution; Generic drug: bimatoprost medical cannabis metoprolol succinate XL 100 MG 24 hr tablet; Commonly known as: Toprol-XL NovoLOG FLEXPEN 100 UNIT/ML pen; Generic drug: insulin aspart Ocrevus 300 MG/10ML solution; Generic drug: ocrelizumab pregabalin 300 MG capsule; Commonly known as: Lyrica; Take 1 capsule (300 mg) by mouth in the morning and 1 capsule (300 mg) before bedtime. rosuvastatin 10 MG tablet; Commonly known as: Crestor; Take 1 tablet (10 mg) by mouth at bedtime Tresiba FlexTouch 200 UNIT/ML injection; Generic drug: insulin degludec; INJECT 100 UNITS SUBCUTANEOUSLY EVERY DAY triamcinolone 0.1 % cream; Commonly known as: Kenalog; Apply 1 application topically 2 (two) times a day as needed for rash Avoid face and groin. Past Medical History: Diagnosis Date Adrenal adenoma, left 12/30/2022 Adrenal nodule (CMS/HCC) Age-related nuclear cataract, bilateral Anxiety Bipolar disorder (CMS/HCC) Carpal tunnel syndrome Cervical neck pain with evidence of disc disease Cervical paraspinal muscle spasm Cholelithiasis Chronic sialoadenitis CKD (chronic kidney disease) stage 2, GFR 60-89 ml/min Disturbance of skin sensation Dizziness DM type 2 (diabetes mellitus, type 2) (CMS/HCC) ED (erectile dysfunction) Essential hypertension (CMS/HCC) SUKHJINDER (generalized anxiety disorder) (CMS/HCC) Gait abnormality Headache History of colon polyps Hx of acute myocardial infarction (CMS/HCC) Hx of temporal arteritis Hyperlipidemia (CMS/HCC) Hypertension (CMS/HCC) Irritable bowel syndrome Lipodermatosclerosis Lymphedema of both lower extremities Migraine (CMS/HCC) Morbid obesity (CMS/HCC) Multiple sclerosis (CMS/HCC) Multiple sclerosis, relapsing-remitting (CMS/HCC) Nuclear senile cataract 01/03/2021 Obesity Obstructive sleep apnea CODIE (obstructive sleep apnea) Pain in limb Peripheral neuropathy PLMD (periodic limb movement disorder) Polypharmacy Primary open angle glaucoma (POAG) of both eyes, mild stage (CMS/HCC) Primary osteoarthritis involving multiple joints PTSD (post-traumatic stress disorder) (CMS/HCC) PTSD (post-traumatic stress disorder) (CMS/HCC) Seizure disorder (CMS/HCC) Spinal stenosis of cervical region Type 2 diabetes mellitus (CMS/HCC) Varicose veins of lower limb Varicose veins Venous insufficiency Vitamin B12 deficiency Vitamin D deficiency Past Surgical History: Procedure Laterality Date ARTERY BIOPSY Left 08/26/2016 temporal artery biopsy. Excision painful vein lt mormonism ARTERY BIOPSY Right 03/11/2014 temporal artery biopsy COLONOSCOPY 11/27/2018 CYST REMOVAL Excision of benign cyst back of neck, Friedman KNEE SURGERY arthroscopic knee surgery Family History Problem Relation Name Age of Onset Cancer Mother anastacio gilbert COPD Mother anastacio gilbert Hypertension Father braulio chang Heart disease Father braulio chang Cancer Father braulio chang Diabetes Father braulio chang Liver disease Father braulio chang Alcohol abuse Father braulio chang Cancer Maternal Grandmother kae caceres Social History Tobacco Use Smoking status: Some Days Types: Cigarettes Start date: 1989 Passive exposure: Past Smokeless tobacco: Never Tobacco comments: 5 or less cigs a day Substance Use Topics Alcohol use: Never Comment: Caffine intake: Coke Zero, 2-3 cans daily Allergies: Duloxetine hcl, Natalizumab, and Semaglutide Vitals: 05/04/24 1256 BP: (!) 166/94 Pulse: 96 SpO2: 98% Body mass index is 43.27 kg/m . weight: 293 lb Neurologic exam: Mental status: Awake and alert with unlabored respirations. Oriented to person, place and time. Recent and remote memory are partially impaired. Speech is clear and fluent without aphasia. Speech is non-dysarthric.Speech is circumferential at times. Attention and concentration are reduced and fluctuate. Fund of knowledge is appropriate for level of education. Crying intermittently throughout the exam. Cranial nerves: CN II: Visual acuity is normal. Visual elam full to confrontation. CN III, IV, : Pupils are equal, round, and reactive to light. Extraocular movements intact. No ptosis present. CN V: Facial sensation is normal. CN VII: Full and symmetric facial movement. CN VIII: Hearing is normal to finger rub bilaterally. CN IX and X: Palate elevates symmetrically. CN XI: Shoulder shrug is normal bilaterally. CN XII: Tongue is midline without atrophy or fasciculation. Motor: RUE strength deltoid , biceps , triceps , wrist extensors , wrist flexor , and adapted physical education teacher strength 5/5. LUE strength deltoid , biceps , triceps , wrist extensors , wrist flexor , and adapted physical education teacher strength 5/5. RLE strength iliopsoas, quadriceps, tibialis anterior, plantar flexion, and dorsiflexion strength 5/5. LLE strength iliopsoas, quadriceps, tibialis anterior, plantar flexion, and dorsiflexion strength 5/5. Tone and bulk are normal. Sensory: Sensation is intact to light touch throughout all four extremities. Sensation is intact to temperature in all extremities. Reflexes: RUE biceps reflex 1+ , brachioradialis reflex 1+. LUE biceps reflex 1+ , brachioradialis reflex 1+. RLE Knee reflex 0. LLE Knee reflex 0. Coordination: [id number] testing dysmetria bilaterally. The patient uses his left arm to direct his right finger to his nose. Gait: Unsteady. Review and summary of old records: Labs at [facility] [place] [place] on 02/25/24: CMP unremarkable aside from sodium 134, potassium 5.2, and alk phos 176. Vitamin D 25-OH 24.6 (low). CBC generally unremarkable. IgG 989. Hemoglobin A1c 12.5% - patient to address with primary care provider. MRI of the cervical spine without contrast on 03/25/2023: No cord compression or cord signal abnormality. Multiple level degenerative changes. MRI of the brain and MR angiogram of the head without contrast on 03/11/2023: Moderate amount of scattered white matter disease likely related to diagnosis of MS. No active enhancement or demyelination. No acute intracranial process. Labs from 12/09/2022: CBC unremarkable ALC 1300, CMP unremarkable, Hgb A1C 11.7% Labs from 05/01/2022: CBC unremarkable with ALC 1200; CMP with REINIER; Hepatitis panel negative; IgG 876, IgM 51; VZV with IgG immunity; JCV negative; HIV nonreactive MRI brain with and without contrast at [facility] [place] [place] on 03/13/2022: Findings consistent with multiple sclerosis with interval disease progression. No evidence of diffusion restriction or abnormal postcontrastenhancement is noted to suggest active demyelination of the current study. Labs from 02/20/2022: CMP unremarkable aside from elevated glucose; CBC unremarkable with ALC 1245;TSH 0.61; ferritin 162 MRI brain from 12/20/2020 without contrast shows stable findings consistent with multiple sclerosis. VNG from 12/07/6020: Significant vestibular dysfunction both centrally and peripherally. MRI cervical spine w/o contrast on 10/26/2020: Mild multilevel degenerative changes of the cervicalspine as detailed, not significantly changed from prior examination. No high-grade neuroforaminal or spinal canal stenosis. 07/2020 CBC CMP checked out unremarkable. Routine EEG on 03/02/2020: Normal. MRI cervical spine from 10/06/18: Without any edema and a change MRI brain from 11/06/2018: Shows multiple deep white matter hyperintensities but none that are active. MRI brain without contrast from 12/23/16: Shows mild to moderate periventricular white matter lesions. Assessment/Plan Diagnoses and all orders for this visit: Ataxia The patient is ataxic on clinical examination today. He has unsteady gait and bilateral dysmetria on ypkldl-oz-fgid testing. He presents reporting a multitude of acute concerns including intermittentsyncopal episodes, blurry vision, shortness of breath, confusion, and diarrhea. He has difficulty completing many aspects of the exam today due to his symptoms and how poorly he feels. Given the recent onset of his symptoms and examination abnormalities today, I believe urgent emergency department evaluation is warranted to rule out any acute issues such as intracranial pathology, MS exacerbation, cardiac disease, arrhythmia, etc. PLAN: - The patient was advised to proceed directly to the emergency department for further evaluation. He verbalizes understanding and is agreeable. I offered to call an EMS services for transportation. However, the patient politely refused and stated his mother will transport him from our office directly to [facility] emergency department when he leaves. His mother was agreeable. I called [facility] emergency department and alerted them of the patient's impending arrival. I discussed this case with Dr. Jeremiah Zavaleta. I educated the patient on the strong importance of emergency department evaluation to rule out any acute condition that could be debilitating or life-threatening. He verbnaya purivs understanding. Relapsing remitting multiple sclerosis (MS) ([facility]) The patient has relapsing remitting multiple sclerosis. Previously on Tecfidera. MRI of the brain on 03/13/22 revealed interval progression, so the patient was transitioned to Ocrevus which he has been tolerating well. Recent MRIs of the brain and cervical spine seemed to suggest stability of the disease. The patient's next infusion is reportedly scheduled for 06/06/2024. PLAN: - Continue Ocrevus 600 mg IV every six months - Plan to order an updated MRI of the brain for disease surveillance at follow up in approximately 1 month. Deferred today, as the patient has been directed to proceed to the emergency department - I have discussed potential side effects of Ocrevus including infusion reaction, allergic reaction, kidney or liver damage, PML, increased susceptibility to acute infections, and increased cancer risk with the patient. The patient verbalizes understanding and wishes to proceed Central vestibular vertigo MRI of the brain on 03/11/23 revealed a moderate amount of scattered white matter disease but was otherwise generally unremarkable. Previous VNG identified evidence of peripheral and central vestibulardysfunction. Perhaps MS could be playing a role here. Bipolar 1 disorder The patient does have a history of Bipolar disorder and frequent emergency department visits where he was noted to leave against medical advice. He denies any suicidal or homicidal ideations. I do believe his Bipolar disorder substantially impacts the ability to treat him reliably. PLAN: - I have strongly recommended referral to psychiatry and counseling to help improve management of the patient's Bipolar, depression, and anxiety. Patient refused Restless legs syndrome (RLS) The patient previously reported symptoms of restless leg syndrome. Ferritin level on 02/20/22 was within normal limits. He is longer taking Abilify, and his RLS seems to be stable now. Diagnosis and treatment options discussed in detail. All questions answered. The patient verbalizesunderstanding and is agreeable to the plan. Discussion in layman's terms. Follow up in the office within 3 to 4 weeks; sooner if needed for new or worsening symptoms. Yodit Jolly NP [facility] documented in this encounterSaint Mary's Health [id number] Instructions* Patient Instructions* Yodit Jolly NP - 05/04/2024 1:00 PM EDT - Proceed to emergency department documented in this encounterSaint Mary's Health [id number] History of Present illness Narrative* RICKY Long - 04/27/2024 2:30 PM EDT Images from the original note were not included. Kerline Chang is a 53 y.o. male presents with chief complaint of Migraine and Knee Pain HPI: HPI History of Present Illness The patient presents for evaluation of multiple medical concerns. He is accompanied by an adult female, his mother. Patient is being seen for complaints of migraine headaches. He has been seen at [facility] ER several times for this, last visit was 04/16/2024. He is requesting a Toradol injection. Has complaints of right knee pain, had injections in the past with Dr. Solares. He has complaints of amild dry cough, runny nose, dizziness, chills and cannot barely walk. His mom was sick with similarsymptoms. He reports experiencing a cough, chills, and a runny nose for the past 2 days. He has not taken utjumiv-vsg-sebxqgw medications. He reports no shortness of breath, wheezing, fever, or sore throat athome. His primary concern is a headache, for which he is under the care of a neurologist. He expresses a desire for a Toradol injection today. He describes his head as feeling cloudy. Denies worst headacheof life but does have some accompanying dizziness but reports this is typical with his headaches. Denies off balance with walking, vomiting, vision changes. He also reports pain in his right knee, which he attributes to a lack of cartilage, resulting in jiuf-lr-qgyf contact. He mentions that a previous injection provided significant relief and would likeanother one today. I have reviewed and reconciled the history and medication list with the patient today. HISTORIES: PAST MEDICAL HISTORY: Past Medical History: Diagnosis Date Adrenal adenoma, left 12/30/2022 Adrenal nodule ([facility]/HCC) Age-related nuclear cataract, bilateral Anxiety Bipolar disorder (CMS/HCC) Carpal tunnel syndrome Cervical neck pain with evidence of disc disease Cervical paraspinal muscle spasm Cholelithiasis Chronic sialoadenitis CKD (chronic kidney disease) stage 2, GFR 60-89 ml/min Disturbance of skin sensation Dizziness DM type 2 (diabetes mellitus, type 2) ([facility]/HCC) ED (erectile dysfunction) Essential hypertension ([facility]/HCC) SUKHJINDER (generalized anxiety disorder) (CMS/HCC) Gait abnormality Headache History of colon polyps Hx of acute myocardial infarction (CMS/HCC) Hx of temporal arteritis Hyperlipidemia (CMS/HCC) Hypertension (CMS/HCC) Irritable bowel syndrome Lipodermatosclerosis Lymphedema of both lower extremities Migraine (CMS/HCC) Morbid obesity (CMS/HCC) Multiple sclerosis (CMS/HCC) Multiple sclerosis, relapsing-remitting ([facility]/HCC) Nuclear senile cataract 01/03/2021 Obesity Obstructive sleep apnea CODIE (obstructive sleep apnea) Pain in limb Peripheral neuropathy PLMD (periodic limb movement disorder) Polypharmacy Primary open angle glaucoma (POAG) of both eyes, mild stage (CMS/HCC) Primary osteoarthritis involving multiple joints PTSD (post-traumatic stress disorder) (CMS/HCC) PTSD (post-traumatic stress disorder) ([facility]/HCC) Seizure disorder ([facility]/HCC) Spinal stenosis of cervical region Type 2 diabetes mellitus (CMS/HCC) Varicose veins of lower limb Varicose veins Venous insufficiency Vitamin B12 deficiency Vitamin D deficiency SURGICAL HISTORY: Past Surgical History: Procedure Laterality Date ARTERY BIOPSY Left 08/26/2016 temporal artery biopsy. Excision painful vein lt mormonism ARTERY BIOPSY Right 03/11/2014 temporal artery biopsy COLONOSCOPY 11/27/2018 CYST REMOVAL Excision of benign cyst back of neck, Friedman KNEE SURGERY arthroscopic knee surgery SOCIAL HISTORY: Social History Tobacco Use Smoking status: Some Days Types: Cigarettes Start date: 1989 Passive exposure: Past Smokeless tobacco: Never Tobacco comments: 5 or less cigs a day Vaping Use Vaping status: Never Used Substance Use Topics Alcohol use: Never Comment: Caffine intake: Coke Zero, 2-3 cans daily Drug use: Yes Types: Marijuana Comment: Daily Depression: Not at risk (02/25/2024) PHQ-2 PHQ-2 Score: 0 FAMILY HISTORY: Family History Problem Relation Name Age of Onset Cancer Mother anastacio gilbert COPD Mother anastacio gilbert Hypertension Father braulio chang Heart disease Father braulio chang Cancer Father braulio chang Diabetes Father braulio chang Liver disease Father braulio chang Alcohol abuse Father braulio chang Cancer Maternal Grandmother kae caceres MEDICATIONS: Current Outpatient Medications Medication Instructions ARIPiprazole (ABILIFY) 5 mg, Oral, Daily bimatoprost (Lumigan) 0.01 % ophthalmic solution 1 drop, Both Eyes, Nightly Cannabinoids (medical cannabis) Medical Marijuana hydroCHLOROthiazide (HYDRODIURIL) 25 mg, Oral, Daily HYDROcodone-acetaminophen (Mclean) 5-325 MG tablet 1-2 tablets, Oral, Every 6 hours PRN insulin aspart (NovoLOG FLEXPEN) 100 UNIT/ML pen Subcutaneous, See admin instructions, Injection per sliding scale irbesartan (Avapro) 300 MG tablet TAKE 1 TABLET BY MOUTH DAILY Lancets Micro Thin 33G misc 1 Lancet , In Vitro, As needed methocarbamol (ROBAXIN) 750-1,500 mg, Oral, 3 times daily PRN metoprolol succinate XL (TOPROL-XL) 100 mg, Oral, Daily ocrelizumab (Ocrevus) 300 MG/10ML solution 10 mL, Intravenous, Over 6 months pregabalin (LYRICA) 300 mg, Oral, 2 times daily rosuvastatin (CRESTOR) 10 mg, Oral, Nightly tadalafil (CIALIS) 20 mg, Oral, Daily Tresiba FlexTouch 200 UNIT/ML injection INJECT 100 UNITS SUBCUTANEOUSLY EVERY DAY triamcinolone (Kenalog) 0.1 % cream 1 application , Topical, 2 times daily PRN, Avoid face and groin. ALLERGIES: Allergies Allergen Reactions Duloxetine Hcl Other Reaction(s): intolerance Natalizumab Other Reaction(s): AOF Semaglutide Other Reaction(s): nausea and vomiting Other Reaction(s): Other: See Comments Chills, nightmares, diarrhea PHYSICAL EXAM: Visit Vitals BP (!) 152/94 (BP Location: Left arm) Pulse 88 Temp 97.1 F Ht 5' 9 Wt 297 lb SpO2 97% BMI 43.86 kg/m Smoking Status Some Days BSA 2.56 m BP Readings from Last 3 Encounters: 04/27/24 (!) 152/94 03/12/24 142/78 02/25/24 130/90 Wt Readings from Last 3 Encounters: 04/27/24 297 lb 03/12/24 301 lb 02/25/24 301 lb Physical Exam General Examination: alert, oriented, normal affect, well-appearing, in no acute distress, well developed, well nourished. Head: normocephalic, atraumatic Eyes: sclera non-icteric Ears: auditory canal clear, tympanic membrane intact, clear Nose: Slight congestion noted Oral Cavity: no lesions, mucosa moist Throat: clear, symmetrical rise of soft palate and uvula, no erythema or exudate Lymph Nodes: no cervical adenopathy Heart: regular rate and rhythm, S1, S2 normal Lungs: clear to auscultation bilaterally. No wheezes, rales, rhonchi. Neuro: PERRLA, EOMI, gait steady Extremities: no edema, no cyanosis Psych: alert, oriented, cognitive function intact, cooperative with exam. Results Laboratory Studies Covid test was negative. ASSESSMENT AND PLAN: Assessment & Plan 1. Headache. A Toradol injection will be administered today to alleviate the headache at his request, he does not want any further work up, he just wants a toradol shot and to go home . He is advised to maintainhis scheduled appointment with the neurologist on 05/04/2024 for further evaluation and management and to ER for any new/worse sx. 2. Right knee pain. An appointment will be scheduled with Dr. Solares for a right knee injection. The patient reports that previous injections have been beneficial. 3. Upper respiratory infection. The COVID-19 test returned negative results. Mucinex DM is recommended to help with congestion and cough, tylenol, push fluids, flonase. If symptoms persist until Friday, he is advised to contact theclinic for a potential prescription of Z-Paulie. documented in this [facility]02-12-2024 Telephone encounter Note* Telephone Encounter - Darci Montgomery MA - 09/15/2023 2:07 PM EST Patient called requesting a refill of hydrocodone to be sent to [facility]. [facility] [id number] Miscellaneous Notes* Telephone Encounter - Darci Montgomery MA - 09/15/2023 2:07 PM EST Patient called requesting a refill of hydrocodone to be sent to [facility]. documented in this [facility]08-08-2023 Progress note Author Aleisha Foster [facility] March 12, 2023 4:23pm Note Date/Time March 11, 2023 9:2 3am [facility] [address] [place] [address] Hospitalist Progress Note Signed with Addenda Patient: Kerline Chang MR#: [id number] : 1970 Acct:[id number] Age/Sex: 52 / M Adm Date: 3 Loc: Room: [address] [place] [address] Type: DIS INOo Attending Dr: Aleisha Foster MD Copies to: ~ ADDENDUM1 Patient left AGAINST MEDICAL ADVICE Addendum Documented By: Aleisha Foster MD 03/12/231621 Addendum Signed By: <Electronically signed by Aleisha Foster MD> 03/12/231621 Date of Service: 03/11/2023 Subjective Subjective Narrative: Patient was admitted after midnight. The patient has been seen and examined. I personally obtained the chaney and critical portions of the history and physical exam. I reviewed the chart, the team's documentation, and discussed the patientcare with the team. I agree with the team's medical decision making and have edited the note to reflect my clinical findings and my assessment and plan. MD Hoda Exam Physical Exam Vital Signs: Temp Pulse Resp BP Pulse Ox O2 Del Method 36.5 C 50 L 18 171/102 H 98 Room Air 03/11/23 08:00 03/11/23 08:00 03/11/23 08:00 03/11/23 08:00 03/11/23 08:00 03/11/23 08:00 Objective Lab Results 03/11/23 07:16 03/11/23 07:16 Meds Allergies and Active Meds Allergies No Known Allergies Allergy (Verified 03/11/23 02:18) Active Meds: Active Medications Generic Name Dose Route Start Last Admin Trade Name Freq PRN Reason Stop Dose Admin Acetaminophen 650 mg 03/11/23 06:17 Acetaminophen 650 Mg Supp.Rect DE 03/10/24 06:16 Q6HR PRN Fever > 100.4 F Aspirin 325 mg 03/11/23 06:20 Aspirin 325 Mg Tablet PO 03/10/24 06:19 DAILY DANIEL Atorvastatin Calcium 80 mg 03/11/23 21:00 Atorvastatin 80 Mg Tablet PO 03/10/24 20:59 QPM DANIEL Non-Formulary Medication 200 mg 03/11/23 22:00 Pregabalin PO 03/10/24 21:59 QHS DANIEL Non-Formulary Medication 100 unit 03/11/23 09:00 Insulin Degludec [Tresiba Flextouch U-200] SUBCUT 03/10/24 08:59 QAM [facility] - Hospitalist Assessment/Plan (1) Headache, migraine: (2) Multiple sclerosis: Documented By: Aleisha Foster MD 03/11/23922 Signed By: <Electronically signed by Aleisha Foster MD> 03/11/23922 [facility] Work Phone: 1(723) 588-813008-08-2023 Consult note Author Dilip Garrison [facility] March 11, 2023 6:04pm Note Date/Time March 11, 2023 8:0 0am [facility] [address] [place] [address] Neurology Consult Note Signed with Rosales Patient: Kerline Chang MR#: [id number] : 1970 Acct:[id number] Age/Sex: 52 / M Adm Date: 3 Loc: Room: 0M3303-3 Type: DIS INOo Attending Dr: Aleisha Foster MD Copies to: DO Nisa Weber MD Ruta Semaskiene, MD~ ADDENDUM1 I agree with the portions of this note created by Adebayo Bonds. Patient was seen and examined. Addendum Documented By: Dilip Garrison DO 03/11/231803 Addendum Signed By: <Electronically signed by Dilip Garrison DO> 03/11/231803 HPI Consult Date: 03/11/23 Community Services Officer: Adebayo Bonds Review of Systems Review of Systems All other systems reviewed & are negative unless noted below or in HPI [facility] Medical History Arthritis Diabetes mellitus Glaucoma Headache Hyperlipemia Hypertension Multiple sclerosis Parkinsons LEFT HEMISPHERE Seizures Surgical History History of temporal artery biopsy S/P right knee arthroscopy Family History Father Heart disease Cirrhosis Alcoholism Diabetes Social History Smoking Status: Current every day smoker Tobacco Type: cigarettes Substance Use Type: Marijuana Substance Abuse Comment: medical Meds Medications and Allergies Allergies No Known Allergies Allergy (Verified 03/11/23 02:18) Home Medications insulin degludec 200 unit/mL (3 mL) subcutaneous pen (Tresiba FlexTouch U-200 insulin) 100 unit subcut QAM 07/14/20 [History Confirmed 03/11/23] insulin aspart U-100 100 unit/mL (3 mL) subcutaneous pen (Novolog FlexPen U-100 Insulin aspart) See Protocol subcut TID 12/24/21 [History Confirmed 03/11/23] diclofenac sodium 75 mg tablet,delayed release 75 mg PO DAILY 03/11/23 [History Confirmed 03/11/23] hydrochlorothiazide 25 mg tablet 25 mg PO DAILY 03/11/23 [History Confirmed 03/11/23] irbesartan 300 mg tablet 300 mg PO DAILY 03/11/23 [History Confirmed 03/11/23] metoprolol succinate 100 mg tablet,extended release 24 hr 100 mg PO DAILY 03/11/23 [History Confirmed 03/11/23] pregabalin 200 mg capsule 200 mg PO QHS 03/11/23 [History Confirmed 03/11/23] rosuvastatin 10 mg tablet 10 mg PO DAILY 03/11/23 [History Confirmed 03/11/23] Exam Physical Exam Vital Signs: Temp Pulse Resp BP Pulse Ox O2 Del Method 97.7 F 58 L 18 180/95 H 99 Room Air 03/11/23 06:58 03/11/23 06:58 03/11/23 06:58 03/11/23 06:58 03/11/23 06:58 03/11/23 06:58 Results Laboratory Findings 03/11/23 07:16 03/11/23 07:16 Assessment/Plan (1) Headache: Code(s): R51 - Headache Status: Acute Plan CONSULT REASON: HPI: 52 year old male. History of multiple sclerosis, migraines, type 2 diabetes mellitus, hypertension, dyslipidemia and seizure disorder. Patient reports sudden onset posterior occipital pain. The pain worsened over the weekend. Patient was seen in outpatient neurology clinic on Friday and was sentto Emergency Department for further evaluation. Patient reportedly went home and came back in the Emergency Department a second time last night. Patient wasgiven a migraine cocktail and meclizine and Valium. This morning the patient reports some coordination issues, predominating on the left side. He states that his migraine has improved from a 10/10 last night to a 3/10 today. EXAMINATION: No distress. No deformities or trauma. Alert and oriented x3. Affect normal. Attention normal. Speech is fluent and nondysarthric. Ocular motility is full. No nystagmus. Fascial sensation is normal. Hearing is normal. Fascial strength is normal. Tongue is midline. Muscle bulk, tone, and strength are normal. No tremors. Reflexes decreased throughout. No pathologic reflexes. Light tough is normal. Vibratory sensation normal throughout. No significant limb dysmetria or ataxia. Normal spinal curvature. Limbs seem well-perfused. No significant edema. Normal work of breathing. Visualized skin is generally intact and without lesions. DATA REVIEW Glucose monitoring. Last A1c 12/09/22 and was 11.7. Cholesterol 114 mg/dL LDL 52 mg/dL Head CT, Head CTA, Neck CTA pending. ASSESSMENT 1. Posterior headache and vertigo. Vertebral artery dissection with stroke seems unlikely; CTA studies show patent vertebral arteries, left vertebral artery dominant. In terms of the headache, he has a tendency for chronic posterior headaches that have been thought to be cervicogenic in nature. In termsof vertigo, consideration given for new MS lesion in white matter somewhere in the posterior fossa. 2. Multiple sclerosis, on ocrelizumab PLAN 1. Unfortunately he signed out AGAINST MEDICAL ADVICE prior to the completion of MRI studies. MRI brain pictures are up, not yet read by the radiologist, butI do not see any obvious new enhancing lesions. It does look like there is a right anterior medullary lesion that is not acute but was not present back on the March 2022 MRI pictures. Documented By: Dilip Garrison DO 03/11/23 0759 Signed By: <Electronically signed by Dilip Garrison DO> 03/11/23 4464 [facility] Work Phone: 1(690) 198-559908-08-2023 History and physical note Author Naif Pickett [facility] March 11, 2023 6:44am Note Date/Time March 11, 2023 6:4 5am [facility] [address] [place] [address] Hospitalist H&P Signed Patient: Kerline Chang MR#: [id number] : 1970 Acct:[id number] Age/Sex: 52 / M Adm Date: 3 Loc: 4 Room: [address] [place] [address] Type: ADM IN Attending Dr: Naif Pickett MD Copies to: MD Nisa Valverde MD~ HPI DATE OF EXAMINATION: 03/11/23 CHIEF COMPLAINT: i've been dizzy since and have a headache HISTORY OF PRESENT ILLNESS: Mr. Case is a 52-year-old male with a history of multiple sclerosis, migraine, insulin-dependent type 2 diabetes mellitus, hypertension, dyslipidemia, and seizure disorder. Patient presented to the ED complaining of dizziness that started on of last week. According to patient beginning on he began having increasingly severe vertiginous sensation described as the room spinning associated with nausea and poor appetite but not dizziness. Patient also complained of lethargy and generalized weakness. Denies any focal weakness changes in his vision or sensation. Patient also developed ataxia and had multiple falls. On 03/10 the patient saw his outpatient neurologist in his clinic and was instructed to present to the ED for evaluation. According to the patient he fell asleep and his mother took him home where he slept several more hours. Around 2 AM on March 11 the patient woke from sleep and had a headache which wasdescribed as diffuse primarily in the occipital region he also stated that his vertigo that worsened. Patient returned to the ED vital signs on arrival were notable for blood pressure of 192/102. CT head and CTA head/neck were negative. the patient is admitted for further evaluation and managememt I saw the patient shortly after he received a migrane cocktail. he was drowsy and complained of feeling weak Review of Systems Review of Systems All other systems reviewed & are negative unless noted below or in HPI [facility] Attestation Statement: The following information was validated with the patient. Medical History Arthritis Diabetes mellitus Glaucoma Headache Hyperlipemia Hypertension Multiple sclerosis Parkinsons LEFT HEMISPHERE Seizures Surgical History History of temporal artery biopsy S/P right knee arthroscopy Family History Father Heart disease Cirrhosis Alcoholism Diabetes Social History Smoking Status: Current every day smoker Tobacco Type: cigarettes Substance Use Type: Marijuana Substance Abuse Comment: medical Meds Medications and Allergies Allergies No Known Allergies Allergy (Verified 03/11/23 02:18) Home Medications insulin degludec 200 unit/mL (3 mL) subcutaneous pen (Tresiba FlexTouch U-200 insulin) 100 unit subcut QAM 07/14/20 [History Confirmed 03/11/23] insulin aspart U-100 100 unit/mL (3 mL) subcutaneous pen (Novolog FlexPen U-100 Insulin aspart) See Protocol subcut TID 12/24/21 [History Confirmed 03/11/23] diclofenac sodium 75 mg tablet,delayed release 75 mg PO DAILY 03/11/23 [History Confirmed 03/11/23] hydrochlorothiazide 25 mg tablet 25 mg PO DAILY 03/11/23 [History Confirmed 03/11/23] irbesartan 300 mg tablet 300 mg PO DAILY 03/11/23 [History Confirmed 03/11/23] metoprolol succinate 100 mg tablet,extended release 24 hr 100 mg PO DAILY 03/11/23 [History Confirmed 03/11/23] pregabalin 200 mg capsule 200 mg PO QHS 03/11/23 [History Confirmed 03/11/23] rosuvastatin 10 mg tablet 10 mg PO DAILY 03/11/23 [History Confirmed 03/11/23] Exam Physical Exam Vital Signs: Temp Pulse Resp BP Pulse Ox O2 Del Method 98.1 F 53 L 21 151/72 H 100 Room Air 03/11/23 02:17 03/11/23 05:34 03/11/23 05:34 03/11/23 05:34 03/11/23 05:34 03/11/23 05:34 Narrative: Gen: pt appears drowsy but easily arousable HEENT: NC/AT mmm no oropharyngeal plaques/exudates neck: supple no LAD CV: RRR no m/r/g noted Chest : CTAB respirations even/unlabored no wheezing/rales abdomen: soft NT/ND bowel sounds x4 no palpable masses/organomegaly ext: no c/c/e distal pulses 2+ equal bilaterally neuro: a/o x4 answers questions appropriately moves all extremities- see NIHSSfor further details skin: no rash Results Lab Results Labs: Laboratory Last Values Corrected WBC 7.7 X10E3/uL (4.1-10.5) 03/11/23 03:34 Uncorrected WBC Count 7.7 x10E3/uL (4.1-10.5) 03/11/23 03:34 RBC 5.48 X10E6/uL (3.90-5.60) 03/11/23 03:34 Hgb 16.3 g/dL (13.0-17.0) 03/11/23 03:34 Hct 46.3 % (38.8-50.0) 03/11/23 03:34 MCV 84.6 fl (83.5-101) 03/11/23 03:34 MCH 29.8 pg (27.5-35.2) 03/11/23 03:34 MCHC 35.3 g/dL (32.5-35.6) 03/11/23 03:34 RDW 13.9 % (12.0-14.8) 03/11/23 03:34 Plt Count 228 x10E3/uL (150-450) 03/11/23 03:34 MPV 9.1 fl (6.6-10.1) 03/11/23 03:34 Neut % (Auto) 71.3 % (.) 03/11/23 03:34 Lymph % (Auto) 19.2 % (.) 03/11/23 03:34 Moffat % (Auto) 7.0 % (.) 03/11/23 03:34 Eos % (Auto) 1.6 % (.) 03/11/23 03:34 Baso % (Auto) 0.9 % (.) 03/11/23 03:34 Nucleat RBC Rel Count 0.1 /100 WBC (0-0.5) 03/11/23 03:34 Neut # (Auto) 5.5 x10E3/uL (1.8-7.7) 03/11/23 03:34 Lymph # (Auto) 1.5 x10E3/uL (1.00-4.8) 03/11/23 03:34 Moffat # (Auto) 0.5 x10E3/uL (0.0-0.8) 03/11/23 03:34 Eos # (Auto) 0.1 x10E3/uL (0.0-0.45) 03/11/23 03:34 Baso # (Auto) 0.1 x10E3/uL (0.0-0.2) 03/11/23 03:34 Monocyte Dist Width 18.77 % (0.00-20.00) 03/11/23 03:34 PT 12.2 Seconds (9.0-12.9) 03/11/23 04:34 INR 1.1 03/11/23 04:34 APTT 29.2 Seconds (25.1-36.5) 03/11/23 04:34 PHA Creatinine Clear 114.17 03/11/23 03:34 Sodium 137 mmol/L (136-145) 03/11/23 03:34 Potassium 4.0 mmol/L (3.5-5.1) 03/11/23 04:34 Chloride 104 mmol/L (98-107) 03/11/23 03:34 Carbon Dioxide 26.4 mmol/L (21.0-31.0) 03/11/23 03:34 Anion Gap TNP 03/11/23 03:34 BUN 26 mg/dL (7-25) H 03/11/23 03:34 Creatinine 0.97 mg/dL (0.70-1.30) 03/11/23 03:34 Est GFR (CKD-EPI) > 60.0 mL/Min 03/11/23 03:34 Glucose 177 mg/dL (70-100) H 03/11/23 03:34 Calcium 8.9 mg/dL (8.6-10.3) 03/11/23 03:34 Assessment & Plan Assessment/Plan (1) Headache, migraine: (2) Multiple sclerosis: (3) Vertigo: Plan: DDx includes MS exacerbation, complicated/atypical migraine, less likely posterior circulation CVA. out of window for tPA - admit to stepdown unit - monitor on telemetry - serial neurologic checks - ASA, high intensity statin - permissive HTN x 24 hrs or until non stroke diagnosis established - consult neurology in am- will defer to them optimal MR study d/t need to rule out MS exacerbation in addition to evaluation for ischemia - also defer to neurology if steroids should be continued or not - 2D echo to eval for embolic source (4) Diabetes mellitus: Plan: continue lantus at home dose accucheck ac/hs SSI check hemoglobin a1c level (5) Tobacco abuse: Plan: urged cessation, offered replacement Plan VTE prophylaxis SQ enoxaparin IP vs OBS Justification Based on differential dx, clinical care plan, and risk of adverse events, if untreated, in my clinical judgement this patient requires an acute care setting as: OBSERVATION because of an expectation of an under 2 midnight stay. Estimated length of stay (# of days): 1 NIH Scale Assessment Type Type Of Assessment: Other/ Reassessment Symptom Onset Time Known?: Yes Symptom Onset Date: 03/08/23 Symptom Onset Time: 08:00 Last Known Well Time Known?: No NIH Stroke Scale Level Of Consiousness: Alert, Keenly Responsive LOC Questions: Answers Both Correctly LOC Commands: Obeys Both Correctly Best Gaze: Normal Visual: No Visual Field Loss Facial Palsy: Normal Symmetrical Movement Motor Arm - Left: No Drift Motor Arm - Right: No Drift Motor Leg - Left: No Drift Motor Leg - Right: No Drift Limb Ataxia: Present in 2 or More Limbs Sensory: Mild-Moderate Loss Best Language Comperehension: No Aphasia Dysarthria: Normal Articulation Extinction/Inattention: No Neglect NIH Score: 3 Documented By: Naif Pickett MD 03/11/2327 Signed By: <Electronically signed by Naif Pickett MD> 03/11/2344 [facility] Work Phone: [phone]) 745-657401-31-2022 Evaluation note* Encounter Date Diagnosis Assessment Notes Treatment Notes Treatment Clinical Notes Aug, Colon cancer screening (ICD-10 - Z12.11) [employer] Other 12-08-2021 Evaluation note* Encounter Date Diagnosis Assessment Notes Treatment Notes Treatment Clinical Notes Jul, Contact with and (suspected) exposure to other viral communicable diseases (ICD-10 - Z20.828) Jul, Lower respiratory infection (ICD-10 - J22) Drink plenty of fluids and get plenty of rest. Take medications as prescribed. Patient has history of diabetes, but I feel that he would benefit from a low-dose steroid as he has a long-term history of smoking and I believe he may have some mild restrictive airway disease. I discussed with him that this may cause his blood sugar to increase that he needs to closely monitor his blood sugar and stay away from sweets. We will also prescribe him antibiotic and inhaler. He is advised to follow-up with his family doctor upon finishing his prescriptions. Patient understands and agrees with the plan. Jul, Other Additional time spent conducting pre-visit phone call, screening for symptoms, instructions on social distancing, application and removal of PPE, and cleaning of examination room, equipment and supplies was preformed. Patient education given for testing methodology and results. Patient care instructions given in writting by [facility] document. [employer] Other 08-02-2021 NoteHNO ID: [id number] Author: Naif Arias PA-C Service: ? Author Type: Physician Client Account Specialist Type: Progress Notes Filed: 03/05/2021 1:09 PM Note Text: Kerline Chang is a patient of Nisa Rojas MD. CHIEF COMPLAINT: Kerline Chang is a 50 year old Male who presents today for follow up of right knee pain. HISTORY OF PRESENT ILLNESS: PAIN EVALUATION 03/05/2021 1045 Pain Level: 5 Pain Location: Knee-Right Description: Aching;Sore;Dull Duration Units: Months Frequency: Intermittent Intervention/Comfort measure: Reposition;Relaxation;Medication Patient with known arthritis of his knee. He has a BMI of 56. Presents today for intra-articular Visco lubricating injection of the right knee. ALLERGIES: ALLERGIES Allergen Reactions - Ozempic [Semaglutid* Other: See Comments Chills, nightmares, diarrhea PAST MEDICAL HISTORY: PAST MEDICAL HISTORY Diagnosis Date - Backache, unspecified - Cholelithiasis - Closed fracture of medial malleolus 12/07 avulsion fracture at the distal lateral aspect of the left medial malleolus saw Dr. Cole - Depression - Edema - Generalized osteoarthrosis, unspecified site - Glaucoma - Hypertension - Morbid obesity (HCC) - Multiple sclerosis (HCC) 01/11 Dr. Gonzalez - NEGATIVE HISTORY OF No TB, CA, Heart dis,pnuemonia - NEGATIVE MEDICAL HISTORY No tb,ca,heart disease - Other specified glaucoma - Personal history of tobacco use, presenting hazards to health - Psoriasis - Rheumatoid arthritis(714.0) Rheumatoid Arthritis - Substance abuse (HCC) - Type 2 diabetes mellitus (HCC) - Type II or unspecified type diabetes mellitus without mention of complication, not stated as uncontrolled - Unspecified essential hypertension SOCIAL HISTORY: Tobacco Use: Quit 08/18/2012. Types: Cigarettes PHYSICAL EXAMINATION: Vitals: There were no vitals taken for this visit. Ortho Exam Knee Examination Right Knee Skin No evidence of eythema, warmth, bruising, abrasions, scars, swelling, atrophy,masses or deformity about bilateral lower extremities. Effusion 1+ effusion Alignment valgus Range of motion Decreased, yet acceptable range of motion in all aspects given the patient's body habitus Quadriceps examination full (5/5) quadriceps strength bilaterally, however there is bilateral VMO atrophy noted Patellar examination Decreased patellar mobility Negative patellar apprehension Positive patellar grind testing Tenderness lateral femoral condyle Meniscus Negative medial and lateral Ti's/Thessaly's testing Stability Collateral and cruciate knee ligaments (ACL/PCL/LCL/MCL) are all intact with no significant laxity noted bilaterally Additional Testing no significant restriction in hip range of motion and no contribution to the knee complaints today IMAGING: Final results and radiologist's interpretation, available in the [facility] health record. Images were reviewed with the patient/family members in the office today. My personal interpretation of the performed imaging is lateral compartment degenerative arthritis CLINICAL IMPRESSION / ASSESSMENT: (M17.11) Primary osteoarthritis of right knee (primary encounter diagnosis) RECOMMENDATION / PLAN: Medications Ice protocol, as directed. Dietary supplements: fish oils, turmeric, glucosamine and chondroitin Avoidance of NSAIDs was advised today, given high risk of side effects. Large Joint Arthro/Inj: R knee joint Informed Consent Consent Obtained: Verbal [place] Protocol A moment to CARE was completed. SIGN IN Personnel directly involved with the procedure wore the appropriate PPE. Special Equipment: N/A Patient/Surrogate Stated/Verified: Patient name, Date of , Relevant allergies and Intended procedure TIME OUT Intended patient and procedure match the source document(s). Consent documented and matches the intended procedure. Relevant labs, photos, and/or imaging studies have been reviewed. Correct side/site marked and visible. Medications required for procedure verified. No fire risk assessment and interventions applicable. No implant(s) inserted. 03/05/2021 12:14 PM The procedure site was prepped in the usual sterile fashion. Site: R knee joint Aspirate: 6 mL clear and yellow Medications: 3 mL hyaluronate sodium, stabilized 60 mg/3 mL Outcome: Tolerated well, no immediate complications Post-injection instructions were reviewed with the patient and the patient voiced understanding of these instructions. SIGN OUT No specimen collected. All instruments, equipment, possible retained foreign bodies accounted for. Post-procedure follow-up management communicated and Plan of Care Visit completed when applicable Explained the duration of time between injections to the patient. Injected his knee with lubricant. We discussed that his weight negatively impacts his knee pain. Verbal health education was given to patient. Patient verbalizes (more content not included)...[facility]04-20-2021 NoteHNO ID: [id number] Author: Taniya Mcclain Service: ? Author Type: Physician Type: Progress Notes Filed: 11/21/2020 9:29 AM Note Text: 50yo WM with h/o DM2 since 2009, neuropathy, nephropathy (on max irbesartan), 1.7cm left adrenal mass noted in 2010 (stable through 2018, negative biochemical testing 04/23), HTN, HLP, RA, here for f/u Patient checks BG 3-4 times per day due to fluctuating readings, using Jazmín. Average BG 285 in last 28 days. Hypoglycemic 0% of time, in range 5% of time. Tried metformin in past but had diarrhea, even with ER formulation. Had diarrhea and nausea with Ozempic. Never tried SGLT-2 inhibitor or sulfonylurea. Was taking rosuvastatin 20mg daily consistently but ran out a month ago. POC A1C in clinic today (fingerstick) = 11.0% Notes he is getting steroids periodically for leg swelling, intermittently, none in last 1.5 weeks. Other significant DM comorbidities: Nephropathy, neuropathy Last saw ophthalmology: February 2020 Current Diabetes Medications, Dosage, Frequency: Tresiba 100 units every morning Novolog 15 units before meals (if no carbs in meals, then use 0 units as your base), plus more if blood sugar is high: If blood sugar is 150-200 take 5 more units If blood sugar is 201-250 take 10 more units If blood sugar is 251-300 take 15 more units If blood sugar is 301-350 take 20 more units If blood sugar is 351-400 take 25 more units If blood sugar is more than 400 take 30 more units compliance with diet has been good, trying to limit his carbs exercise: limited, but joining gym Patient has had hypoglycemia episodes; when he was taking Novolog 20u + SSI Report of Self Monitoring of Blood Glucose: See scanned documents Patient denies pain and numbness in the feet. Patient denies chest pain Patient denies sob Patient denies symptoms of a TIA , or claudication All other Review of Systems reviewed and are negative. PAST MEDICAL HISTORY Diagnosis Date - Backache, unspecified - Cholelithiasis - Closed fracture of medial malleolus 12/07 avulsion fracture at the distal lateral aspect of the left medial malleolus saw Dr. Cole - Depression - Edema - Generalized osteoarthrosis, unspecified site - Glaucoma - Hypertension - Morbid obesity (HCC) - Multiple sclerosis (HCC) 01/11 Dr. Gonzalez - NEGATIVE HISTORY OF No TB, CA, Heart dis,pnuemonia - NEGATIVE MEDICAL HISTORY No tb,ca,heart disease - Other specified glaucoma - Personal history of tobacco use, presenting hazards to health - Psoriasis - Rheumatoid arthritis(714.0) Rheumatoid Arthritis - Substance abuse (HCC) - Type 2 diabetes mellitus (HCC) - Type II or unspecified type diabetes mellitus without mention of complication, not stated as uncontrolled - Unspecified essential hypertension Past Family and Social History reviewed and updated, as needed. insulin degludec (TRESIBA FLEXTOUCH U-200) 200 unit/mL (3 mL) injection, Inject 80 Units subcutaneously daily at bedtime. (Patient taking differently: Inject 100 Units subcutaneously daily at bedtime. ), Disp: 12 Pen, Rfl: 3 labetalol (TRANDATE) 300 mg tablet, Take 300 mg by mouth once daily. Labetalol HCL 300mg 3 times daily (per pt report) , Disp: , Rfl: diclofenac, EC, (VOLTAREN) 75 mg EC tablet, Take 75 mg by mouth twice daily., Disp: , Rfl: hydroCHLOROthiazide (HYDRODIURIL, ESIDRIX) 25 mg tablet, Take 25 mg by mouth once daily., Disp: , Rfl: irbesartan (AVAPRO) 300 mg tablet, Take 300 mg by mouth once daily., Disp: , Rfl: cholecalciferol (VITAMIN D-3) 5,000 unit tab, Take 5,000 Units by mouth daily with food., Disp: , Rfl: dimethyl fumarate (TECFIDERA) 240 mg cpDR, Take 240 mg by mouth twice daily., Disp: 180 capsule, Rfl: 0 Bimatoprost (LUMIGAN) 0.01 % OPHTHALMIC Drop, Use 1 Drop in both eyes once daily., Disp: , Rfl: 0 OBJECTIVE: BP 188/104 Pulse 64 Wt (!) 172.8 kg (381 lb) BMI 56.26 kg/m? Last 3 Encounter Wt Readings: Date: Wt: 11/21/2020 172.8 kg (381 lb) 04/11/2020 174.6 kg (385 lb) 10/26/2019 167.4 kg (369 lb) Gen - NAD, comfortable, pleasant, not cushingoid HEENT - no acanthosis, no SC/DC fat pads CVS - RRR no murmurs, DP pulses present 2+ b/l Lung - CTAB, no rales Abd - yes obese, +BS, no lipohypertrophy, non-tender, no striae Derm - no skin breaks or ulcers in feet noted, no foot callus, no dry feet Neuro - plantar surface of feet with intact sensation to monofilament b/l, alert/oriented MSK - no loss of arch from feet, no LE edema Component Latest Ref Rng AND Units 04/11/2020 04/17/2020 Glucose 74 - 99 mg/dL 194 (H) BUN 9 - 24 mg/dL 22 Creatinine 0.73 - 1.22 mg/dL 1.04 Sodium 136 - 144 mmol/L 132 (L) Potassium 3.7 - 5.1 mmol/L 4.7 Chloride 97 - 105 mmol/L 96 (L) CO2 22 - 30 mmol/L 27 Anion Gap 9 - 18 mmol/L 9 Calcium 8.5 - 10.2 mg/dL 10.0 eGFR- >60 eGFR-All Other Races . >60 Cholesterol, Total <200 mg/dL 167 Triglyceride <150 (more content not included)...[facility] 10-12-2020 NotePatient Outreach (COVAMN) KERLINE CHANG ([id number]) 1970 M Date Time Provider Department 10/12/20 CHERYLE GRIFFIN During your visit today, we recorded the following information about you: Allergies As of Date: 10/12/2020 (No Active Allergies) Date Reviewed: 06/08/2020 Reviewed by: Vahe Arriaga Ma - Fully Assessed Order(s):SARS-COVID VACCINE 1ST DOSE APPT [[id number]] Order #: [id number] FUTURE Prescriptions as of 10/12/2020 Sig: ROSUVASTATIN 20 MG TABLET Take 1 tablet by mouth once d* OZEMPIC 0.25 MG OR 0.5 MG (2 * Inject 0.5 mg subcutaneously * X TRESIBA FLEXTOUCH U-200 INSUL* Inject 80 Units subcutaneousl* LABETALOL 300 MG TABLET Take 300 mg by mouth three ti* DICLOFENAC SODIUM 75 MG TABLE* Take 75 mg by mouth twice amara* HYDROCHLOROTHIAZIDE 25 MG TAB* Take 25 mg by mouth once david* LABETALOL 100 MG TABLET Take 100 mg by mouth three ti* IRBESARTAN 300 MG TABLET Take 300 mg by mouth once amara* CHOLECALCIFEROL (VITAMIN D3) * Take 5,000 Units by mouth amara* DICLOFENAC 1 % TOPICAL GEL apply FOUR grams topically FO* DIMETHYL FUMARATE 240 MG CAPS* Take 240 mg by mouth twice da* PODOFILOX 0.5 % TOPICAL SOLUT* Apply to lesions twice daily * VENLAFAXINE 75 MG TABLET Take 1 tablet by mouth twice * ERGOCALCIFEROL (VITAMIN D2) 1* Take 1 capsule by mouth once * Patient not taking: Reported on 10/26/2019 KETOCONAZOLE 2 % TOPICAL CREAM Apply to rash on thighs twice* ASPIRIN 81 MG TABLET,DELAYED * Take 81 mg by mouth once david* METOPROLOL SUCCINATE ER 25 MG* Take 25 mg by mouth once david* * BIMATOPROST 0.01 % EYE DROPS Use 1 Drop in both eyes once * Problem List As Of Date 10/12/2020 Noted Resolved EXCESSIVE OBESITY [E66.01] 03/05/2005 Rheumatoid arthritis [M06.9] 03/05/2005 12/29/2012 GLAUCOMA NEC [H40.89] HYPERTENSION NOS [I10] GENERAL OSTEOARTHROSIS [M15.9] DIABETES MELLITUS TYPE II-UNCOMPL [E11.9] ACHILLES TENDINITIS [M76.60] 01/14/2006 More... OTHER PSORIASIS [L40.8] 01/14/2006 More... PSORIATIC ARTHROPATHY [L40.50] 02/11/2006 SACROILIITIS NEC [M46.1] 03/12/2006 OA (OSTEOARTHRITIS) LOCALIZED, PRIMARY( Lower L*06/09/2006 INTERNAL DERANGEMENT KNEE-CHRONIC MEDIAL MENISC*06/09/2006 ANAL FISSURE AND FISTULA [565] 12/02/2006 10/27/2007 DEPRESSIVE DISORDER NEC [F32.9] 02/24/2007 INGROWING NAIL [L60.0] 10/15/2007 DERMATITIS NOS [L25.9] 06/06/2008 EDEMA [R60.9] 06/21/2008 SEBACEOUS CYST [L72.3] 07/05/2008 HYPERPARATHYROIDISM NOS [E21.3] 09/02/2008 More... VITAMIN D DEFICIENCY NOS [E55.9] 09/02/2008 DIABETES TYPE II W NEURO MANIFESTATIONS [E11.49]09/28/2008 Varicose Veins of Lower Extremities with Other *08/22/2009 Foot Pain [M79.673] 12/29/2009 MS (Multiple Sclerosis) [G35] 01/17/2010 More... Neoplasm of Uncertain Behavior of Skin [D48.5] 02/21/2010 Ingrown Right Big Toenail [L60.0] 03/06/2010 Benign Neoplasm of Skin of Other and Unspecifie*03/06/2010 Nail, Ingrown [L60.0] 04/19/2010 Edema leg [R60.0] 03/05/2011 Patellofemoral syndrome [M22.2X9] 04/27/2011 B12 deficiency [E53.8] 09/01/2011 Tinea cruris [B35.6] 02/04/2012 Dermatofibroma [D23.9] 02/04/2012 Ingrown nail [L60.0] 04/10/2012 SALVADOR (headache) [R51.9] 10/14/2012 Headache [R51] 01/08/2013 Cervical spondylosis without myelopathy [M47.81*02/19/2013 OA (osteoarthritis) of knee [M17.10] 02/11/2014 Elevated sed rate [R70.0] 02/23/2014 Elevated C-reactive protein (CRP) [R79.82] 02/23/2014 Cervicalgia [M54.2] 02/23/2014 Migraine [G43.909] 02/23/2014 Polyuria [R35.8] 02/23/2014 Diabetes mellitus with neurological manifestati*08/22/2015 Encounter Status:Closed by EPIC, PRODUSER on 10/16/20[facility] 07-12-2020 NoteMicrobiology PROCEDURE: Wound Culture [R1] SOURCE: Abscess BODY SITE: Groin COLLECTED DATE/TIME: 07/09/2020 11:53 EST RECEIVED DATE/TIME: 07/09/2020 12:59 EST START DATE/TIME: 07/09/2020 12:59 EST FREE TEXT SOURCE: Vickey FONSECA, Ash Hurd PA-C, Ash FINAL REPORTS Final Report [] Verified Date/Time: 07/12/2020 14:44 EST 1+ Gram Positive Rods resembling diphtheroids 2+ Bacteroides species Presumptive 2+ Peptostreptococcus species Presumptive STAINS Gram Stain Report [] Verified Date/Time: 07/10/2020 12:37 EST 1+ White Blood Cells 2+ Gram Positive Cocci 2+ Gram Negative Rods Performing Locations R1: This test was performed at: [facility], [address] [place] [address], [id number] , [place], [facility] HospitalComment on above:Performed By: #### [id number] #### [facility] [address] [place] [address] [id number] NoteIMPRESSION: MODERATE TO MARKED DEGENERATIVE CHANGES LEFT KNEE PROGRESSED FROM PRIOR EXAMINATION. Radio Commentator: CLARIBEL Transcribe Date/Time: Apr 17 2020 1:24P Dictated by : PANKAJ BRANHAM MD This examination was interpreted and the report reviewed and electronically signed by: PANKAJ BRANHAM MD on Apr 17 2020 1:26PM [facility] DIVISION OF RADIOLOGYEvaluation noteNo assessment information availableUniversity [facility] Work Phone: Evaluation note* Diagnosis Onset Date Resolution Status Diabetes mellitus acute Migraine acute Multiple sclerosis acute Tobacco abuse acute Vertigo [facility] Work Phone: Evaluation note* Diagnosis Onset Date Resolution Status Diabetes mellitus acute Headache acute Migraine acute Multiple sclerosis acute Tobacco abuse acute Vertigo [facility] Work Phone: Evaluation note* Diagnosis Onset Date Resolution Status Diabetes mellitus acute Headache acute Migraine acute Multiple sclerosis acute Tobacco abuse acute Vertigo acute Polysubstance abuse acute Weakness [facility] Work Phone: Evaluation note* Diagnosis Onset Date Resolution Status Diabetes mellitus acute Headache acute Migraine acute Multiple sclerosis acute Tobacco abuse acute Vertigo acute Diabetes mellitus acute Dizziness acute Headache acute Hypertension acute Polysubstance abuse acute Tobacco abuse acute Weakness [facility] Work Phone: Evaluation note* Diagnosis Onset Date Resolution Status Diabetes mellitus acute Headache acute Migraine acute Multiple sclerosis acute Tobacco abuse acute Vertigo acute Diabetes mellitus acute Hypertension acute Polysubstance abuse acute Tobacco abuse acute Weakness [facility] Work Phone: Evaluation note* Diagnosis Bilateral low back pain without sciatica, unspecified chronicity Acute right-sided low back pain without sciatica documented in this encounter [facility] HealthcareEvaluation note* Diagnosis Polyneuropathy associated with underlying disease ([facility]/HCC) documented in this encounter [facility] HealthcareEvaluation note* Diagnosis Localized osteoarthritis of right knee- Primary documented in this encounter [facility] HealthcareEvaluation note* Diagnosis Ataxia- Primary Lack of coordination Relapsing remitting multiple sclerosis ([facility]/HCC) Multiple sclerosis Central vestibular vertigo Vertigo of central origin Bipolar 1 disorder, mixed ([facility]) Restless legs syndrome (RLS) documented in this encounter [facility] HealthcareEvaluation note* Diagnosis Primary osteoarthritis of right knee Primary localized osteoarthrosis, lower leg [facility] Primary osteoarthritis involving multiple joints documented in this encounter [facility]* Diagnosis Type 2 diabetes mellitus with diabetic neuropathy, with long-term current use of insulin ([facility])- Primary Essential hypertension ([facility]) Unspecified essential hypertension Pure hypercholesterolemia ([facility]) Pure hypercholesterolemia Hyperparathyroidism, unspecified ([facility]) Hyperparathyroidism, unspecified Bipolar 1 disorder, mixed ([facility]) MS (multiple sclerosis) ([facility]) Multiple sclerosis Chronic bilateral low back pain without sciatica Seizure disorder ([facility]) Unspecified epilepsy without mention of intractable epilepsy Polyneuropathy associated with underlying disease ([facility]) Vitamin B12 deficiency Other B-complex deficiencies Vitamin D deficiency Diarrhea, unspecified type Cervicogenic headache Headache Morbid obesity ([facility]) Morbid obesity BMI 45.0-49.9, adult ([facility]) documented in this encounter [facility] HealthcareEvaluation note* Diagnosis Onychomycosis- Primary Dermatophytosis of nail Controlled type 1 diabetes mellitus with diabetic polyneuropathy ([facility]) Multiple sclerosis ([facility]) Multiple sclerosis Neuropathy Mononeuritis of unspecified site Pain in both feet documented in this encounter [facility]Evaluation [facility]* Diagnosis Relapsing remitting multiple sclerosis (CMS/HCC)- Primary Multiple sclerosis Ataxia Lack of coordination Encounter for medication monitoring Encounter for therapeutic drug monitoring Bilateral occipital neuralgia Central vestibular vertigo Vertigo of central origin Bipolar 1 disorder, mixed ([facility]) Restless legs syndrome (RLS) documented in this encounter [facility] HealthcareEvaluation note* Diagnosis Generalized anxiety disorder ([facility]) Generalized anxiety disorder documented in this encounter [facility]* Diagnosis Chronic right-sided low back pain without sciatica documented in this encounter [facility]* Diagnosis Acute pain of right knee- Primary Cervicogenic headache Headache Chronic neck pain Cervicalgia History of migraine headaches Myalgia Unspecified myalgia and myositis Essential hypertension ([facility]) Unspecified essential hypertension Primary osteoarthritis involving multiple joints Stage 1 chronic kidney disease documented in this encounter [facility]* Diagnosis Type 2 diabetes mellitus with diabetic neuropathy, with long-term current use of insulin ([facility])- Primary History of migraine headaches Chronic bilateral low back pain without sciatica Cellulitis of hand, right Generalized anxiety disorder ([facility]) Generalized anxiety disorder Bipolar 1 disorder, mixed ([facility]) Primary osteoarthritis involving multiple joints Polyneuropathy associated with underlying disease ([facility]) MS (multiple sclerosis) ([facility]) Multiple sclerosis documented in this encounter [facility]* Diagnosis Cervicogenic headache- Primary Headache Upper respiratory tract infection, unspecified type Acute pain of right knee documented in this encounter [facility]* Diagnosis Generalized anxiety disorder ([facility]) Generalized anxiety disorder Elevated alkaline phosphatase level Spasm of muscle of lower back documented in this encounter [facility]* Diagnosis Spinal stenosis in cervical region- Primary documented in this encounter [facility]* Diagnosis Acute pain of right knee- Primary Arthritis of right knee documented in this encounter [facility]* Diagnosis Spinal stenosis in cervical region Spasm of muscle of lower back Primary osteoarthritis involving multiple joints documented in this encounter [facility]* Diagnosis Type 2 diabetes mellitus with diabetic neuropathy, with long-term current use of insulin ([facility])- Primary Essential hypertension ([facility]) Unspecified essential hypertension Mixed hyperlipidemia ([facility]) Mixed hyperlipidemia Hyperparathyroidism, unspecified ([facility]) Hyperparathyroidism, unspecified Chronic bilateral low back pain without sciatica Psoriatic arthritis ([facility]) Psoriatic arthropathy Multiple sclerosis ([facility]) Multiple sclerosis Bipolar 1 disorder, mixed ([facility]) Generalized anxiety disorder ([facility]) Generalized anxiety disorder Morbid obesity ([facility]) Morbid obesity Body mass index (BMI) 45.0-49.9, adult ([facility]) Acute pain of right knee Spinal stenosis in cervical region Seborrheic dermatitis Unspecified seborrheic dermatitis Acute cough documented in this encounter [facility]* Diagnosis Relapsing remitting multiple sclerosis ([facility])- Primary Multiple sclerosis Migraine without aura and without status migrainosus, not intractable ([facility]) documented in this encounter [facility]* Diagnosis Other migraine without status migrainosus, not intractable ([facility])- Primary documented in this encounter [facility]* Diagnosis Spinal stenosis in cervical region documented in this encounter [facility]* Diagnosis Spinal stenosis in cervical region documented in this encounter [facility]* Diagnosis Type 2 diabetes mellitus with diabetic neuropathy, with long-term current use of insulin ([facility])- Primary Stage 1 chronic kidney disease Essential hypertension ([facility]) Unspecified essential hypertension Psoriatic arthritis ([facility]) Psoriatic arthropathy MS (multiple sclerosis) ([facility]) Multiple sclerosis Generalized anxiety disorder ([facility]) Generalized anxiety disorder Primary osteoarthritis involving multiple joints Vitamin D deficiency Polyneuropathy associated with underlying disease ([facility]) Cervicogenic headache Headache Elevated alkaline phosphatase level Prostate cancer screening Special screening for malignant neoplasm of prostate Vitamin B12 deficiency Other B-complex deficiencies Mixed hyperlipidemia ([facility]) Mixed hyperlipidemia Hyperparathyroidism, unspecified ([facility]) Hyperparathyroidism, unspecified Spinal stenosis in cervical region [place] History of migraine headaches documented in this encounter [facility]* Diagnosis Acute pain of right knee- Primary Arthritis of right knee Knee instability, right Loose body of right knee documented in this encounter [facility]* Diagnosis Rash- Primary Rash and other nonspecific skin eruption Candidiasis, intertrigo Candidiasis of skin and nails Skin breakdown Skin excoriation Spinal stenosis in cervical region documented in this encounter [facility]* Diagnosis Spinal stenosis in cervical region documented in this encounter [facility]* Diagnosis Type 2 diabetes mellitus with diabetic neuropathy, with long-term current use of insulin ([facility])- Primary History of migraine headaches Essential hypertension ([facility]) Unspecified essential hypertension Temporal pain documented in this encounter [facility]* Diagnosis Type 2 diabetes mellitus with diabetic neuropathy, with long-term current use of insulin ([facility])- Primary Intractable migraine without aura and with status migrainosus ([facility]) Chronic neck pain Cervicalgia Vitamin D deficiency Mixed hyperlipidemia (CMS/HCC) Mixed hyperlipidemia documented in this encounter [facility]* Diagnosis History of migraine headaches- Primary Relapsing remitting multiple sclerosis (CMS/HCC) Multiple sclerosis documented in this encounter [facility] Author Naif Pickett [facility] March 11, 2023 6:44am Note Date/Time March 11, 2023 6:4 5am [facility] [address] [place] [address] Hospitalist H&P Signed Patient: Kerline Chang MR#: [id number] : 1970 Acct:[id number] Age/Sex: 52 / M Adm Date: 3 Loc: Room: [address] [place] [address] Type: ADM IN Attending Dr: Naif Pickett MD Copies to: MD Nisa Valverde MD~ HPI DATE OF EXAMINATION: 03/11/23 CHIEF COMPLAINT: i've been dizzy since and have a headache HISTORY OF PRESENT ILLNESS: Mr. Case is a 52-year-old male with a history of multiple sclerosis, migraine, insulin-dependent type 2 diabetes mellitus, hypertension, dyslipidemia, and seizure disorder. Patient presented to the ED complaining of dizziness that started on of last week. According to patient beginning on he began having increasingly severe vertiginous sensation described as the room spinning associated with nausea and poor appetite but not dizziness. Patient also complained of lethargy and generalized weakness. Denies any focal weakness changes in his vision or sensation. Patient also developed ataxia and had multiple falls. On 03/10 the patient saw his outpatient neurologist in his clinic and was instructed to present to the ED for evaluation. According to the patient he fell asleep and his mother took him home where he slept several more hours. Around 2 AM on March 11 the patient woke from sleep and had a headache which wasdescribed as diffuse primarily in the occipital region he also stated that his vertigo that worsened. Patient returned to the ED vital signs on arrival were notable for blood pressure of 192/102. CT head and CTA head/neck were negative. the patient is admitted for further evaluation and managememt I saw the patient shortly after he received a migrane cocktail. he was drowsy and complained of feeling weak Review of Systems Review of Systems All other systems reviewed & are negative unless noted below or in HPI [facility] Attestation Statement: The following information was validated with the patient. Medical History Arthritis Diabetes mellitus Glaucoma Headache Hyperlipemia Hypertension Multiple sclerosis Parkinsons LEFT HEMISPHERE Seizures Surgical History History of temporal artery biopsy S/P right knee arthroscopy Family History Father Heart disease Cirrhosis Alcoholism Diabetes Social History Smoking Status: Current every day smoker Tobacco Type: cigarettes Substance Use Type: Marijuana Substance Abuse Comment: medical Meds Medications and Allergies Allergies No Known Allergies Allergy (Verified 03/11/23 02:18) Home Medications insulin degludec 200 unit/mL (3 mL) subcutaneous pen (Tresiba FlexTouch U-200 insulin) 100 unit subcut QAM 07/14/20 [History Confirmed 03/11/23] insulin aspart U-100 100 unit/mL (3 mL) subcutaneous pen (Novolog FlexPen U-100 Insulin aspart) See Protocol subcut TID 12/24/21 [History Confirmed 03/11/23] diclofenac sodium 75 mg tablet,delayed release 75 mg PO DAILY 03/11/23 [History Confirmed 03/11/23] hydrochlorothiazide 25 mg tablet 25 mg PO DAILY 03/11/23 [History Confirmed 03/11/23] irbesartan 300 mg tablet 300 mg PO DAILY 03/11/23 [History Confirmed 03/11/23] metoprolol succinate 100 mg tablet,extended release 24 hr 100 mg PO DAILY 03/11/23 [History Confirmed 03/11/23] pregabalin 200 mg capsule 200 mg PO QHS 03/11/23 [History Confirmed 03/11/23] rosuvastatin 10 mg tablet 10 mg PO DAILY 03/11/23 [History Confirmed 03/11/23] Exam Physical Exam Vital Signs: Temp Pulse Resp BP Pulse Ox O2 Del Method 98.1 F 53 L 21 151/72 H 100 Room Air 03/11/23 02:17 03/11/23 05:34 03/11/23 05:34 03/11/23 05:34 03/11/23 05:34 03/11/23 05:34 Narrative: Gen: pt appears drowsy but easily arousable HEENT: NC/AT mmm no oropharyngeal plaques/exudates neck: supple no LAD CV: RRR no m/r/g noted Chest : CTAB respirations even/unlabored no wheezing/rales abdomen: soft NT/ND bowel sounds x4 no palpable masses/organomegaly ext: no c/c/e distal pulses 2+ equal bilaterally neuro: a/o x4 answers questions appropriately moves all extremities- see NIHSSfor further details skin: no rash Results Lab Results Labs: Laboratory Last Values Corrected WBC 7.7 X10E3/uL (4.1-10.5) 03/11/23 03:34 Uncorrected WBC Count 7.7 x10E3/uL (4.1-10.5) 03/11/23 03:34 RBC 5.48 X10E6/uL (3.90-5.60) 03/11/23 03:34 Hgb 16.3 g/dL (13.0-17.0) 03/11/23 03:34 Hct 46.3 % (38.8-50.0) 03/11/23 03:34 MCV 84.6 fl (83.5-101) 03/11/23 03:34 MCH 29.8 pg (27.5-35.2) 03/11/23 03:34 MCHC 35.3 g/dL (32.5-35.6) 03/11/23 03:34 RDW 13.9 % (12.0-14.8) 03/11/23 03:34 Plt Count 228 x10E3/uL (150-450) 03/11/23 03:34 MPV 9.1 fl (6.6-10.1) 03/11/23 03:34 Neut % (Auto) 71.3 % (.) 03/11/23 03:34 Lymph % (Auto) 19.2 % (.) 03/11/23 03:34 Moffat % (Auto) 7.0 % (.) 03/11/23 03:34 Eos % (Auto) 1.6 % (.) 03/11/23 03:34 Baso % (Auto) 0.9 % (.) 03/11/23 03:34 Nucleat RBC Rel Count 0.1 /100 WBC (0-0.5) 03/11/23 03:34 Neut # (Auto) 5.5 x10E3/uL (1.8-7.7) 03/11/23 03:34 Lymph # (Auto) 1.5 x10E3/uL (1.00-4.8) 03/11/23 03:34 Moffat # (Auto) 0.5 x10E3/uL (0.0-0.8) 03/11/23 03:34 Eos # (Auto) 0.1 x10E3/uL (0.0-0.45) 03/11/23 03:34 Baso # (Auto) 0.1 x10E3/uL (0.0-0.2) 03/11/23 03:34 Monocyte Dist Width 18.77 % (0.00-20.00) 03/11/23 03:34 PT 12.2 Seconds (9.0-12.9) 03/11/23 04:34 INR 1.1 03/11/23 04:34 APTT 29.2 Seconds (25.1-36.5) 03/11/23 04:34 PHA Creatinine Clear 114.17 03/11/23 03:34 Sodium 137 mmol/L (136-145) 03/11/23 03:34 Potassium 4.0 mmol/L (3.5-5.1) 03/11/23 04:34 Chloride 104 mmol/L (98-107) 03/11/23 03:34 Carbon Dioxide 26.4 mmol/L (21.0-31.0) 03/11/23 03:34 Anion Gap TNP 03/11/23 03:34 BUN 26 mg/dL (7-25) H 03/11/23 03:34 Creatinine 0.97 mg/dL (0.70-1.30) 03/11/23 03:34 Est GFR (CKD-EPI) > 60.0 mL/Min 03/11/23 03:34 Glucose 177 mg/dL (70-100) H 03/11/23 03:34 Calcium 8.9 mg/dL (8.6-10.3) 03/11/23 03:34 Assessment & Plan Assessment/Plan (1) Headache, migraine: (2) Multiple sclerosis: (3) Vertigo: Plan: DDx includes MS exacerbation, complicated/atypical migraine, less likely posterior circulation CVA. out of window for tPA - admit to stepdown unit - monitor on telemetry - serial neurologic checks - ASA, high intensity statin - permissive HTN x 24 hrs or until non stroke diagnosis established - consult neurology in am- will defer to them optimal MR study d/t need to rule out MS exacerbation in addition to evaluation for ischemia - also defer to neurology if steroids should be continued or not - 2D echo to eval for embolic source (4) Diabetes mellitus: Plan: continue lantus at home dose accucheck ac/hs SSI check hemoglobin a1c level (5) Tobacco abuse: Plan: urged cessation, offered replacement Plan VTE prophylaxis SQ enoxaparin IP vs OBS Justification Based on differential dx, clinical care plan, and risk of adverse events, if untreated, in my clinical judgement this patient requires an acute care setting as: OBSERVATION because of an expectation of an under 2 midnight stay. Estimated length of stay (# of days): 1 NIH Scale Assessment Type Type Of Assessment: Other/ Reassessment Symptom Onset Time Known?: Yes Symptom Onset Date: 03/08/23 Symptom Onset Time: 08:00 Last Known Well Time Known?: No NIH Stroke Scale Level Of Consiousness: Alert, Keenly Responsive LOC Questions: Answers Both Correctly LOC Commands: Obeys Both Correctly Best Gaze: Normal Visual: No Visual Field Loss Facial Palsy: Normal Symmetrical Movement Motor Arm - Left: No Drift Motor Arm - Right: No Drift Motor Leg - Left: No Drift Motor Leg - Right: No Drift Limb Ataxia: Present in 2 or More Limbs Sensory: Mild-Moderate Loss Best Language Comperehension: No Aphasia Dysarthria: Normal Articulation Extinction/Inattention: No Neglect NIH Score: 3 Documented By: Naif Pickett MD 03/11/23626 Signed By: <Electronically signed by Naif Pickett MD> 03/11/23 0644 [facility] Work Phone: History and physical note Author Eh Rock [facility] March 23, 2023 4:03pm Note Date/Time March 23, 2023 4: 03pm [facility] [address] [place] [address] Hospitalist H&P Signed Patient: Kerline hCang MR#: [id number] : 1970 Acct:[id number] Age/Sex: 52 / M Adm Date: 3 Loc: 3T Room: [address] [place] [address] Type: ADM IN Attending Dr: Eh Rock MD Copies to: MD Nisa Dover MD~ HPI DATE OF EXAMINATION: 03/23/23 CHIEF COMPLAINT: Headache and neckache after the fall HISTORY OF PRESENT ILLNESS: This is a 52-year-old morbidly obese gentleman with history of hypertension, insulin requiring diabetes, diabetic neuropathy,hypertension, hyperlipidemia andpolysubstance abuse who takes medical marijuana comes to the emergency department for acute onset headache and neck ache after a fall in his bathroom. Patient does have history of dizziness and vertigo for which he has been seen neurology as an outpatient. He also has a diagnosis of multiple sclerosis and Parkinson disease but currently not on any medication. Patient was this morningshaving and suddenly he moved his head and fell on the bathroom but no head injury. Patient states that he had some kind of whiplash type neck pulled and since then he has excruciating neck pain with headache. He called his neurologist who suggested him to go to the emergency department and get MRI of the neck. Patient recently had extensive work-up for headache. He had MRI withcontrast of the head which did not have any acute pathology then on 03/11/2023. Patient received IV Toradol in the emergency department. He also had high bloodpressure upon arrival in the emergency department. He did not take his home antihypertensive before coming to the emergency department. Otherwise his bloodwork remained acceptable; his urine toxicology was positive for THC and cocaine. Patient was sent to the floor for further management. Review of Systems Review of Systems All other systems reviewed & are negative unless noted below or in HPI Constitutional Constitutional: Denies body ache(s) and Denies chills Eyes Eyes: Denies blurry vision and Denies photophobia Cardiovascular Cardiovascular: Denies chest pain, Denies dyspnea on exertion, Denies rapid heart rate and Denies syncope Respiratory Respiratory: Denies dyspnea on exertion and Denies hemoptysis Gastrointestinal Gastrointestinal: Denies hematochezia and Denies melena Musculoskeletal Musculoskeletal: Denies deformity and Denies muscle weakness Integumentary/Breasts Skin/Breast: Denies nail changes, Denies rash and Denies unusual bruising Neurologic Neurologic: Denies confusion, Denies convulsions and Denies syncope Psychiatric Psychiatric: Denies hallucinations and Denies memory loss Endocrine Endocrine: Denies heat intolerance Hematologic/Lymphatic Hematologic/Lymphatic: Denies easy bruising PMFSH Medical History Arthritis Diabetes mellitus Glaucoma Headache Hyperlipemia Hypertension Multiple sclerosis Parkinsons LEFT HEMISPHERE Seizures Surgical History History of temporal artery biopsy S/P right knee arthroscopy Family History Father Heart disease Cirrhosis Alcoholism Diabetes Social History Smoking Status: Current every day smoker Tobacco Type: cigarettes Substance Use Type: Marijuana Substance Abuse Comment: medical marijuana Social History Comments: Roommate Meds Medications and Allergies Allergies No Known Allergies Allergy (Verified 03/22/23 18:59) Home Medications insulin degludec 200 unit/mL (3 mL) subcutaneous pen (Tresiba FlexTouch U-200 insulin) 100 unit subcut QAM 07/14/20 [History Confirmed 03/23/23] insulin aspart U-100 100 unit/mL (3 mL) subcutaneous pen (Novolog FlexPen U-100 Insulin aspart) See Protocol subcut TID 12/24/21 [History Confirmed 03/23/23] diclofenac sodium 75 mg tablet,delayed release 75 mg PO DAILY 03/11/23 [History Confirmed 03/23/23] hydrochlorothiazide 25 mg tablet 25 mg PO DAILY 03/11/23 [History Confirmed 03/23/23] irbesartan 300 mg tablet 300 mg PO DAILY 03/11/23 [History Confirmed 03/23/23] metoprolol succinate 100 mg tablet,extended release 24 hr 100 mg PO DAILY 03/11/23 [History Confirmed 03/23/23] pregabalin 200 mg capsule 200 mg PO QHS 03/11/23 [History Confirmed 03/23/23] rosuvastatin 10 mg tablet 10 mg PO DAILY 03/11/23 [History Confirmed 03/23/23] cephalexin 500 mg capsule 500 mg PO BID 7 days #14 caps 03/20/23 [Rx Confirmed 03/23/23] meclizine 12.5 mg tablet 12.5 mg PO BID PRN Vertigo 03/20/23 [History Confirmed 03/23/23] Exam Physical Exam Vital Signs: Temp Pulse Resp BP Pulse Ox O2 Del Method 98.2 F 70 20 159/100 H 100 Room Air 03/23/23 12:46 03/23/23 13:40 03/23/23 12:46 03/23/23 13:40 03/23/23 12:46 03/23/23 13:32 Const General: cooperative, no acute distress and well hydrated Orientation: alert, awake and oriented x3 HEENT Head: normocephalic and atraumatic Face and sinus: normal facial exam and sinuses nontender Mouth: oral mucosae normal Eyes Conjunctivae: conjunctivae normal Sclera: sclerae normal Neck Thyroid: thyroid normal Carotids: normal carotid upstroke Lymphatic: no lymphadenopathy noted Resp Effort & Inspection: normal respiratory effort, able to speak in complete sentences and symmetric chest movement Auscultation: clear to auscultation bilaterally Cardio Palpation: normal PMI Rate: regular rate Rhythm: regular rhythm Heart Sounds: S1 normal and S2 normal Pulses: dorsalis pedis present GI Palpation: soft and no hepatosplenomegaly Auscultation: normal bowel sounds Skin General: no rashes or lesions noted and turgor normal Neuro General: tone normal and moves all extremities Speech: speech normal Gait: normal gait Motor: muscle tone normal throughout Sensory Exam: no sensory deficits noted Extrem General: full ROM Psych Appearance: grossly normal Mental Status: mental status grossly normal Mood: congruent mood Affect: normal affect Results Lab Results Labs: Laboratory Last Values Corrected WBC 7.0 X10E3/uL (4.1-10.5) 03/23/23 10:55 Uncorrected WBC Count 7.0 x10E3/uL (4.1-10.5) 03/23/23 10:55 RBC 5.14 X10E6/uL (3.90-5.60) 03/23/23 10:55 Hgb 15.2 g/dL (13.0-17.0) 03/23/23 10:55 Hct 44.1 % (38.8-50.0) 03/23/23 10:55 MCV 85.7 fl (83.5-101) 03/23/23 10:55 MCH 29.6 pg (27.5-35.2) 03/23/23 10:55 MCHC 34.5 g/dL (32.5-35.6) 03/23/23 10:55 RDW 13.7 % (12.0-14.8) 03/23/23 10:55 Plt Count 187 x10E3/uL (150-450) 03/23/23 10:55 MPV 8.9 fl (6.6-10.1) 03/23/23 10:55 Neut % (Auto) 78.7 % (.) 03/23/23 10:55 Lymph % (Auto) 13.2 % (.) 03/23/23 10:55 Moffat % (Auto) 6.3 % (.) 03/23/23 10:55 Eos % (Auto) 1.2 % (.) 03/23/23 10:55 Baso % (Auto) 0.6 % (.) 03/23/23 10:55 Nucleat RBC Rel Count 0.1 /100 WBC (0-0.5) 03/23/23 10:55 Neut # (Auto) 5.5 x10E3/uL (1.8-7.7) 03/23/23 10:55 Lymph # (Auto) 0.9 x10E3/uL (1.00-4.8) L 03/23/23 10:55 Moffat # (Auto) 0.4 x10E3/uL (0.0-0.8) 03/23/23 10:55 Eos # (Auto) 0.1 x10E3/uL (0.0-0.45) 03/23/23 10:55 Baso # (Auto) 0.0 x10E3/uL (0.0-0.2) 03/23/23 10:55 Monocyte Dist Width 19.18 % (0.00-20.00) 03/23/23 10:55 PT 10.6 Seconds (9.0-12.9) 03/23/23 10:55 INR 0.9 03/23/23 10:55 PHA Creatinine Clear 117.72 03/23/23 10:55 Sodium 133 mmol/L (136-145) L 03/23/23 10:55 Potassium 4.2 mmol/L (3.5-5.1) 03/23/23 10:55 Chloride 102 mmol/L (98-107) 03/23/23 10:55 Carbon Dioxide 24.2 mmol/L (21.0-31.0) 03/23/23 10:55 Anion Gap 11.0 mEq/L (6.0-15.0) 03/23/23 10:55 BUN 19 mg/dL (7-25) 03/23/23 10:55 Creatinine 0.97 mg/dL (0.70-1.30) 03/23/23 10:55 Est GFR (CKD-EPI) > 60.0 mL/Min 03/23/23 10:55 Glucose 356 mg/dL (70-100) H 03/23/23 10:55 POC Glucose 333 mg/dl 03/23/23 14:02 Calcium 9.0 mg/dL (8.6-10.3) 03/23/23 10:55 Total Bilirubin 0.6 mg/dl (0.3-1.0) 03/23/23 10:55 AST 17 U/L (13-39) 03/23/23 10:55 ALT 31 U/L (7-52) 03/23/23 10:55 Alkaline Phosphatase 122 U/L (34-104) H 03/23/23 10:55 Total Creatine Kinase 65 U/L (30-223) 03/23/23 10:55 Troponin I High Sens 8.4 pg/mL (0.0-20.0) 03/23/23 10:55 Total Protein 7.1 gm/dL (6.4-8.9) 03/23/23 10:55 Albumin 3.9 gm/dL (3.5-5.7) 03/23/23 10:55 Globulin 3.2 gm/dL 03/23/23 10:55 Albumin/Globulin Ratio 1.2 03/23/23 10:55 Urine Color Yellow (Yellow) 03/23/23 10:31 Urine Appearance Clear (Clear) 03/23/23 10:31 Urine pH 5.5 (5.0-9.0) 03/23/23 10:31 Ur Specific [place] 1.033 (1.001-1.030) H 03/23/23 10:31 Urine Protein Negative mg/dL (Negative) 03/23/23 10:31 Urine Glucose (UA) >=1000 mg/dL (Normal) H 03/23/23 10:31 Urine Ketones Negative (Negative) 03/23/23 10:31 Urine Occult Blood Negative (Negative) 03/23/23 10:31 Urine Nitrite Negative (Negative) 03/23/23 10:31 Urine Bilirubin Negative (Negative) 03/23/23 10:31 Urine Urobilinogen Normal mg/dL (Normal) 03/23/23 10:31 Ur Leukocyte Esterase 2+ (Negative) H 03/23/23 10:31 Urine RBC 1-2 /HPF (0-4) 03/23/23 10:31 Urine WBC 20-49 /HPF (0-4) H 03/23/23 10:31 Ur Squamous Epith Cells 0-1 /HPF (0-2) 03/23/23 10:31 Urine Bacteria None seen (None Seen) 03/23/23 10:31 Hyaline Casts 0-8 /LPF (0-8) 03/23/23 10:31 Urine Opiates Screen Negative (Negative) 03/23/23 10:31 Ur Barbiturates Screen Negative (Negative) 03/23/23 10:31 Ur Phencyclidine Scrn Negative (Negative) 03/23/23 10:31 Ur Amphetamines Screen Negative (Negative) 03/23/23 10:31 U Benzodiazepines Scrn Negative (Negative) 03/23/23 10:31 Urine Cocaine Screen Positive (Negative) H 03/23/23 10:31 U Marijuana (THC) Screen Positive (Negative) H 03/23/23 10:31 Assessment & Plan Assessment/Plan (1) Headache: (2) Dizziness: (3) Weakness: (4) Polysubstance abuse: (5) Tobacco abuse: (6) Diabetes mellitus: (7) Hypertension: Plan PLAN ON ADMISSION: 03/23/2023 Patient be admitted to medical telemetry for closer monitoring of cardiorespiratory and neuro status. He will have frequent neuro exam. Patient will be seen by the neurologist tomorrow. I have ordered neck MRA without contrast I for the morning. His blood pressure seems to be high we will have given as needed labetalol and hydralazine. We will be using those after administering his home medications. Pain will be managed with IV Toradol for now. Although patient is asking for narcotics but we told him that we will not be able to prescribe any narcotics for him at this time. His urine is positive for cocaine and THC. Meclizine will be given for symptomatic relief of dizziness. We will try to manage diabetes with high-dose basal insulin along with sliding scale by correcting regular insulin QA [facility]. DVT prophylax will be done with heparin. GI prophylax will be done with PPI. CODE STATUS full. Total time spent on this admission encounter was about 57 minutes. IP vs OBS Justification Based on differential dx, clinical care plan, and risk of adverse events, if untreated, in my clinical judgement this patient requires an acute care setting as: OBSERVATION because of an expectation of an under 2 midnight stay. Estimated length of stay (# of days): 2 Documented By: Eh Rock MD 03/23/23 1552 Signed By: <Electronically signed by Eh Rock MD> 03/23/23 1602 [facility] Work Phone: History general Narrative - Reported* Type Description Date Medical History nicotine abuse Medical History Type II diabetes Medical History hypertension Medical History MS Medical History Obesity Medical History Renal insufficiency Medical History Glaucoma Medical History Degenerative disc disease Medical History peripheral edema Medical History anxiety disorder Medical History CAD-suffered OR, ass ociated with an episode of severe diabetic ketoacidosis, the illness which led to the stress on his heart Medical History chronic marijuana use Surgical History temporal artery biopsy Surgical History temporal biopsy Surgical History arthroscopic knee surgery Surgical History right knee scope Surgical History Excision of benign cyst back of neck Surgical History temporal biposy 08/2016 Surgical History cyst removal 2016 Surgical History cyst in groin I&D 07/2020 Hospitalization History [facility] 07/18/20 14 Hospitalization History Migraine 05/2016 [facility] Other Hospital Discharge instructions Additional Instructions Return for new or worsening symptoms [facility] Work [facility]: Hospital Discharge instructions Additional Instructions Go home and rest Follow-up with your private physician Return if symptoms are worseBarberton [facility] Work Phone: Hospital Discharge instructions Additional Instructions Please follow-up with your neurologist on Friday Return here if any problems persist or worsen Tylenol or Motrin if needed for pain Monitor your blood glucose at homeBarberton [facility] Work Phone: Hospital Discharge instructions Additional Instructions Push fluids Rest Monitor your blood sugars Important to follow-up with neurologist primary care doctor on Return here if any problems persist or worsen Return here if you develop any numbness, tingling, unilateral weakness, dizziness, worsening of your life or any other concernBarberton Citizens Hospital Work Phone: Hospital Discharge instructions Additional Instructions Take the antibiotic doxycycline twice a day for 10 days take with food Return in 2 days for packing removal recheck You can change the dressing if needed but leave the packing in place Return to the ER sooner for worsening redness swelling pain fever chills or any other concernsBarberton Citizens [facility] Work Phone: Hospital Discharge instructions Additional Instructions You are signing out AGAINST MEDICAL ADVICE. You are at risk for potentially life-threatening complication by being discharged with dizziness and headache of unknown etiology with recent falls. Please return to emergency department if you change your mind about wanting further work-up, treatment or if your symptoms get worse or change. Follow-up as soon as possible with your family physician and neurologist. You are also found to have urinary tract infection and antibiotic was sent to your pharmacy. Please take antibiotic until completed.[facility] Work Phone: Hospital Discharge instructions Additional Instructions Take amoxicillin as prescribed for ear infection. Take Motrin Tylenol as needed for pain. Follow-up with your PCP for any persistent symptoms in 5 to 7 days.[facility] Work Phone: Hospital Discharge instructions Additional Instructions Follow-up with your primary care doctor Return to ED for develop worsening symptoms or concernsBarberton Citizens Hospital Work Phone: Hospital Discharge instructions Additional Instructions Take the antibiotic penicillin take with food Take the ketorolac every 6 hours for pain take with food Take the dicyclomine 3 times a day for abdominal cramping diarrhea Increase oral fluids Follow-up with your doctor and dentist Return to the ER for high fever vomiting visible abscess or any other concerns [facility] Work Phone: Hospital Discharge instructions Additional Instructions Take your antibiotics that was already prescribed Take [id number] Tylenol Motrin naproxen for pain May use topical pain medicine such as Orajel DENTEK See your [facility] as [facility] Work Phone: Hospital Discharge instructions Additional Instructions Continue current meds Follow-up dentist as scheduledBarberton [facility] Hospital Work Phone: Hospital Discharge instructions Additional Instructions Follow-up with your primary care doctor Return to ED if develop worsening symptoms or concernsBarberton [facility] Hospital Work Phone: Hospital Discharge instructions Additional Instructions Be sure to take your prescribed blood pressure medication.[facility] Work Phone: Hospital Discharge instructions Additional Instructions Take Motrin Tylenol as needed for any recurrent headache.[facility] Work Phone: Hospital Discharge instructions Additional Instructions You are at risk for worsening pain undiagnosed injuries headache bleeding, Follow-up with your family doctor You can return to the ER at any time to be recheckedBar[facility] Work Phone: Hospital Discharge instructions Additional Instructions You are leaving AGAINST MEDICAL ADVICE and are at risk for possible missed causes of headache including possible stroke or brain bleed that could lead to permanent brain damage or . You should return to the emergency department anytime if you change your mind about wanting further workup or treatment regarding her headache and back pain. You should also return if you develop any numbness, weakness, tingling, vision changes or confusion. You should follow-up as soon as possible with your neurologist as well as family physician.[facility] Work Phone: Hospital Discharge instructions Additional Instructions Follow-up with your primary care doctor Return to ED if you develop worsening symptoms or concernsBarberton Citizens Hospital Work Phone: Hospital Discharge instructions Additional Instructions Take Motrin Tylenol as needed for recurrent headache. Follow-up with the PCP for recheck next 3 to 5 days.[facility] Work Phone: Hospital Discharge instructions Additional Instructions If your symptoms return/worsen or you develop any further concerns or symptoms please see your doctor or return to the emergency department immediately.[facility] Work Phone: Hospital Discharge instructions Additional Instructions Ice to affected area Rest Push fluids Follow with your PCP on Friday Return here if any problems persist or worsen Relafen if needed for pain Zanaflex for muscle spasms You cannot work or drive and take ZanaflexBarberton Citizens Hospital Work Phone: Hospital Discharge instructions Additional Instructions Follow-up with Dr. Rojas. You may need more testing such as MRI. You declined steroids given your diabetes. Discussed this with Dr. Rojas if your pain persists.[facility] Work Phone: Hospital Discharge instructions Additional Instructions May take the cyclobenzaprine instead of your methocarbamol 3 times a day for pain May take the diclofenac gel and apply it to the right knee 4 times a day You can still use [id number] numbing jelly such as IcyHot with lidocaine Bengay with lidocaine Moose wrap for comfort support Rest ice elevate Follow-up with Dr. Sweet orthopedic surgery as needed Return to the ER for worsening pain especially if the knee becomes red warm swollen fever chills or any other concernsBar[facility]ton Citizens [facility] Work Phone: Hospital Discharge instructions Additional Instructions Continue your pain regimen that you are taking at home Follow-up with your doctor on Friday as planned Return if any problems persist or worsen Avoid electronics Rest Push fluidBarberton Citizens Hospital Work Phone: Hospital Discharge instructions Additional Instructions Rest Avoid electronics Follow-up with your neurologist as planned Return here if any problems persistBar[facility] Work Phone: Hospital Discharge instructions Additional Instructions Continue current medsBar[facility]ton [facility] Hospital Work Phone: Hospital Discharge instructions Additional Instructions Follow-up with your primary care doctor Return to ED for worsening symptoms or concernsBarberton Citizens Hospital Work Phone: Hospital Discharge instructions Additional Instructions It is very important that you follow up with your primary care provider in the next 2-3 days unless instructed to do otherwise. If you do not have a primary care provider, you can contact [facility] and ask about being established for primary care services. If you require specialist follow up, such as with an orthopedic physician, international affairs vice president, urologist, or other medical specialty, you should contact the specialty clinic as soon as possible to schedule a follow up appointment. If you are established with a specialist, you can contact your preferred physician for follow up. If you are not already established with the specialist you need, you may have contact information provided to you with these discharge instructions. If you are being prescribed medications, take exactly as prescribed. Antibiotics, if prescribed, should be taken until the entire course is completed. You should not have left over antibiotics. Continue to take any previously prescribed home medications unless instructed otherwise. If you are experiencing fever or mild to moderate pain, you should first take Tylenol or ibuprofen available [id number]. Medications, if prescribed to treat pain from the emergency department, are intended to provide relief for severe pain that is not relieved by other methods of pain relief, you should use these medications cautiously as many are known to cause sedation/sleepiness, increased risk for falls, and other effects such as constipation. If your symptoms worsen please return to the ED or if you have any other concernsBar[facility] Work Phone: Hospital Discharge instructions Additional Instructions You were seen in the emergency department for ongoing headache. As we discussed, you may take Tylenol, ibuprofen, your muscle relaxant as well at home to help with your pain. Return to the emergency department if you have any worsening vision changes, worsening headache, vomiting, new weakness or numbness, or any other acute medical concern. Given that you believe this to be related to your multiple sclerosis, ensure you follow-up with your neurologist as soon as possible. 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 It is important to treat your symptoms with RICE therapy. This consists of Resting when available, Icing the affected area, wearing Compression if applicable such as a sleeve or MOOSE-bandage, and Elevating the affected extremity. Continue to use Tylenol and other anti-inflammatories such as ibuprofen, naproxen, diclofenac, etc It is very important that you follow up with your primary care provider in the next 1-2 days unless instructed to do otherwise. If you do not have a primary care provider, you can contact the [facility] and ask about being established for primary care services. If you require specialist follow up, such as with an orthopedic physician, international affairs vice president, urologist, or other medical specialty, you should contact the specialty clinic as soon as possible to schedule a follow up appointment. If you are established with a specialist, you can contact your preferred physician for follow up. If you are not already established with the specialist you need, you may have contact information provided to you with these discharge instructions. If you are being prescribed medications, take exactly as prescribed. Antibiotics, if prescribed, should be taken until the entire course is completed. You should not have left over antibiotics. Continue to take any previously prescribed home medications unless instructed otherwise. If you are experiencing fever or mild to moderate pain, you should first take Tylenol or ibuprofen available [id number]. Medications, if prescribed to treat pain from the emergency department, are intended to provide relief for severe pain that is not relieved by other methods of pain relief, you should use these medications cautiously as many are known to cause sedation/sleepiness, increased risk for falls, and other effects such as constipation. If your symptoms worsen please return to the ED or if you have any other concernsBar[facility] Work Phone: Hospital Discharge instructions Additional Instructions Rest. Push fluids. Take [id number] Tylenol or Motrin as needed for the headache. Apply the nystatin powder topically under the right breast 4 times a day. Follow-up with primary care provider in the next 2 to 3 days. Follow-up with your infusion center appointment tomorrow as scheduled. Return here if symptoms persist or worsen.[facility] Work Phone: Hospital Discharge instructions Additional Instructions Continue taking your Diflucan as prescribed Follow-up with primary care as scheduled tomorrow at 11 AM.[facility] Work Phone: Hospital Discharge instructions Additional Instructions If your symptoms return/worsen or you develop any further concerns or symptoms please see your doctor or return to the emergency department immediately. It is imperative that you go over today's visit and all results with your primary care provider.[facility] Work Phone: Hospital Discharge instructions Additional Instructions Follow your sugars at home [facility] Work Phone: Hospital Discharge instructions Additional Instructions Continue current meds Follow-up with [facility] Tinsley [facility] Work Phone: Summary Purpose Family History Relationship Condition Age at Onset Recorded Date/T jigna father Heart disease Unknown Hepatic cirrhosis Unknown Alcoholism Unknown Diabetes mellitus Unknown Relationship Condition Age at Onset Recorded Date/T jigna father Heart disease Unknown Hepatic cirrhosis Unknown Alcoholism Unknown Diabetes mellitus Unknown father Unknown Hypertension Unknown Malignant neoplasm Unknown Heart disease Unknown Not Specified Malignant neoplasm Unknown sister Hypertension Unknown Relationship Condition Age at Onset Recorded Date/T jigna father Heart disease Unknown Hepatic cirrhosis Unknown Alcoholism Unknown Diabetes mellitus Unknown father Unknown Hypertension Unknown Malignant neoplasm Unknown Heart disease Unknown mother Malignant neoplasm Unknown sister Hypertension Unknown Advance Directives Advance Directive Response Recorded Date/ Time Advance Directives No April 8:35am Advance Directive Response Recorded Date/ Time Advance Directives No April 7:35am Documents on File Type Date Recorded Patient 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 Expl anation Advance Directive(s) 02/08/2010 1:29 PM Chief Complaint and Reason for Visit Chief Complaint g35 headache fall/R leg injury Chief Complaint g35 headache fall/R leg injury Migraine,Balance issues (MS) Chief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 2:34pm fall July 17, 2024 9:27pm head pain and rt knee pain July 3:45pm CONSULT DR. ROJAS RT KNEE PAIN, WX Decemb er 2023 10:23am Diabetic issues July 19, 2024 9:56pm Screening July 20, 2024 1:00pm head and neck pain, diarrhea July 232023 7:15pm head pain July 24, 2024 7:44pm head injury July 26, 2024 11:44pm L ear pain, Sore throat August 08 2:22am muscle cramps resolved August 17 1:59am headache, neck pain August 21, 2024 9 :01pm migraine, neck pain August 28, 2024 8 :59pm Headache August 29, 2024 9 :12pm headache September 03, 2024 8 :55pm Neck and Head Pain September 06, 2024 6 :43pm fell,hit head September 13, 2024 10:10pm pain October 10, 2024 6:56 pm [email or web address] October 13, 2024 9:1 4am Chief Complaint Admit Date L ear pain, Sore throat August 08 2:22am muscle cramps resolved August 17 1:59am headache, neck pain August 21, 2024 9 :01pm migraine, neck pain August 28, 2024 8 :59pm Headache August 29, 2024 9 :12pm headache September 03, 2024 8 :55pm Neck and Head Pain September 06, 2024 6 :43pm fell,hit head September 13, 2024 10:10pm pain October 10, 2024 6:56 pm Headache and knee pain November 03, 2024 1 2:03am Chief Complaint Admit Date L ear pain, Sore throat August 08 2:22am muscle cramps resolved August 17 1:59am headache, neck pain August 21, 2024 9 :01pm migraine, neck pain August 28, 2024 8 :59pm Headache August 29, 2024 9 :12pm headache September 03, 2024 8 :55pm Neck and Head Pain September 06, 2024 6 :43pm fell,hit head September 13, 2024 10:10pm pain October 10, 2024 6:56 pm Headache and knee pain November 03, 2024 1 2:03am [email or web address] November 04, 2024 10:1 1am headache, knee pain November 04, 2024 9:18 pm Chief Complaint Admit Date L ear pain, Sore throat August 08 2:22am muscle cramps resolved August 17 1:59am headache, neck pain August 21, 2024 9 :01pm migraine, neck pain August 28, 2024 8 :59pm Headache August 29, 2024 9 :12pm headache September 03, 2024 8 :55pm Neck and Head Pain September 06, 2024 6 :43pm fell,hit head September 13, 2024 10:10pm pain October 10, 2024 6:56 pm Headache and knee pain November 03, 2024 1 2:03am [email or web address] November 04, 2024 10:1 1am headache, knee pain November 04, 2024 9:18 pm Headache November 05, 2024 12:1 3am Chief Complaint Admit Date muscle cramps resolved August 17 1:59am headache, neck pain August 21, 2024 9 :01pm migraine, neck pain August 28, 2024 8 :59pm Headache August 29, 2024 9 :12pm headache September 03, 2024 8 :55pm Neck and Head Pain September 06, 2024 6 :43pm fell,hit head September 13, 2024 10:10pm pain October 10, 2024 6:56 pm Headache and knee pain November 03, 2024 1 2:03am [email or web address] November 04, 2024 10:1 1am headache, knee pain November 04, 2024 9:18 pm Headache November 05, 2024 12:1 3am joint pain November 09, 2024 12:4 4am Chief Complaint Admit Date muscle cramps resolved August 17 1:59am headache, neck pain August 21, 2024 9 :01pm migraine, neck pain August 28, 2024 8 :59pm Headache August 29, 2024 9 :12pm headache September 03, 2024 8 :55pm Neck and Head Pain September 06, 2024 6 :43pm fell,hit head September 13, 2024 10:10pm pain October 10, 2024 6:56 pm Headache and knee pain November 03, 2024 1 2:03am [email or web address] November 04, 2024 10:1 1am headache, knee pain November 04, 2024 9:18 pm Headache November 05, 2024 12:1 3am joint pain November 09, 2024 12:4 4am headache, anxiety November 13, 2024 3:4 3am Chief Complaint Admit Date muscle cramps resolved August 17 1:59am headache, neck pain August 21, 2024 9 :01pm migraine, neck pain August 28, 2024 8 :59pm Headache August 29, 2024 9 :12pm headache September 03, 2024 8 :55pm Neck and Head Pain September 06, 2024 6 :43pm fell,hit head September 13, 2024 10:10pm pain October 10, 2024 6:56 pm Headache and knee pain November 03, 2024 1 2:03am [email or web address] November 04, 2024 10:1 1am headache, knee pain November 04, 2024 9:18 pm Headache November 05, 2024 12:1 3am joint pain November 09, 2024 12:4 4am headache, anxiety November 13, 2024 3:4 3am head and knee pain November 14, 2024 1:3 3pm Chief Complaint Admit Date migraine, neck pain August 28, 2024 8 :59pm Headache August 29, 2024 9 :12pm headache September 03, 2024 8 :55pm Neck and Head Pain September 06, 2024 6 :43pm fell,hit head September 13, 2024 10:10pm pain October 10, 2024 6:56 pm Headache and knee pain November 03, 2024 1 2:03am [email or web address] November 04, 2024 10:1 1am headache, knee pain November 04, 2024 9:18 pm Headache November 05, 2024 12:1 3am joint pain November 09, 2024 12:4 4am headache, anxiety November 13, 2024 3:4 3am head and knee pain November 14, 2024 1:3 3pm ms effects November 17, 2024 10: 39pm dizziness, headache November 18, 2024 11: 17pm Chief Complaint Admit Date migraine, neck pain August 28, 2024 8 :59pm Headache August 29, 2024 9 :12pm headache September 03, 2024 8 :55pm Neck and Head Pain September 06, 2024 6 :43pm fell,hit head September 13, 2024 10:10pm pain October 10, 2024 6:56 pm Headache and knee pain November 03, 2024 1 2:03am [email or web address] November 04, 2024 10:1 1am headache, knee pain November 04, 2024 9:18 pm Headache November 05, 2024 12:1 3am joint pain November 09, 2024 12:4 4am headache, anxiety November 13, 2024 3:4 3am head and knee pain November 14, 2024 1:3 3pm ms effects November 17, 2024 10: 39pm dizziness, headache November 18, 2024 11: 17pm ill November 20, 2024 11: 40am Chief Complaint Admit Date migraine, neck pain August 28, 2024 8 :59pm Headache August 29, 2024 9 :12pm headache September 03, 2024 8 :55pm Neck and Head Pain September 06, 2024 6 :43pm fell,hit head September 13, 2024 10:10pm pain October 10, 2024 6:56 pm Headache and knee pain November 03, 2024 1 2:03am [email or web address] November 04, 2024 10:1 1am headache, knee pain November 04, 2024 9:18 pm Headache November 05, 2024 12:1 3am joint pain November 09, 2024 12:4 4am headache, anxiety November 13, 2024 3:4 3am head and knee pain November 14, 2024 1:3 3pm ms effects November 17, 2024 10: 39pm dizziness, headache November 18, 2024 11: 17pm ill November 20, 2024 11: 40am head/neck pain November 21, 2024 10: 22am Chief Complaint Admit Date migraine, neck pain August 28, 2024 8 :59pm Headache August 29, 2024 9 :12pm headache September 03, 2024 8 :55pm Neck and Head Pain September 06, 2024 6 :43pm fell,hit head September 13, 2024 10:10pm pain October 10, 2024 6:56 pm Headache and knee pain November 03, 2024 1 2:03am [email or web address] November 04, 2024 10:1 1am headache, knee pain November 04, 2024 9:18 pm Headache November 05, 2024 12:1 3am joint pain November 09, 2024 12:4 4am headache, anxiety November 13, 2024 3:4 3am head and knee pain November 14, 2024 1:3 3pm ms effects November 17, 2024 10: 39pm dizziness, headache November 18, 2024 11: 17pm ill November 20, 2024 11: 40am head/neck pain November 21, 2024 10: 22am left side fsce, head and neck pain November 21, 2024 6:12pm Chief Complaint Admit Date migraine, neck pain August 28, 2024 8 :59pm Headache August 29, 2024 9 :12pm headache September 03, 2024 8 :55pm Neck and Head Pain September 06, 2024 6 :43pm fell,hit head September 13, 2024 10:10pm pain October 10, 2024 6:56 pm Headache and knee pain November 03, 2024 1 2:03am [email or web address] November 04, 2024 10:1 1am headache, knee pain November 04, 2024 9:18 pm Headache November 05, 2024 12:1 3am joint pain November 09, 2024 12:4 4am headache, anxiety November 13, 2024 3:4 3am head and knee pain November 14, 2024 1:3 3pm ms effects November 17, 2024 10: 39pm dizziness, headache November 18, 2024 11: 17pm ill November 20, 2024 11: 40am head/neck pain November 21, 2024 10: 22am left side fsce, head and neck pain November 21, 2024 6:12pm rt knee inj November 24, 2024 5:0 1pm Chief Complaint Admit Date migraine, neck pain August 28, 2024 8 :59pm Headache August 29, 2024 9 :12pm headache September 03, 2024 8 :55pm Neck and Head Pain September 06, 2024 6 :43pm fell,hit head September 13, 2024 10:10pm pain October 10, 2024 6:56 pm Headache and knee pain November 03, 2024 1 2:03am [email or web address] November 04, 2024 10:1 1am headache, knee pain November 04, 2024 9:18 pm Headache November 05, 2024 12:1 3am joint pain November 09, 2024 12:4 4am headache, anxiety November 13, 2024 3:4 3am head and knee pain November 14, 2024 1:3 3pm ms effects November 17, 2024 10: 39pm dizziness, headache November 18, 2024 11: 17pm ill November 20, 2024 11: 40am head/neck pain November 21, 2024 10: 22am left side fsce, head and neck pain November 21, 2024 6:12pm rt knee inj November 24, 2024 5:0 1pm Elevated Blood Sugar November 24, 2024 10 :15pm Chief Complaint Admit Date Headache August 29, 2024 9 :12pm headache September 03, 2024 8 :55pm Neck and Head Pain September 06, 2024 6 :43pm fell,hit head September 13, 2024 10:10pm pain October 10, 2024 6:56 pm Headache and knee pain November 03, 2024 1 2:03am [email or web address] November 04, 2024 10:1 1am headache, knee pain November 04, 2024 9:18 pm Headache November 05, 2024 12:1 3am joint pain November 09, 2024 12:4 4am headache, anxiety November 13, 2024 3:4 3am head and knee pain November 14, 2024 1:3 3pm ms effects November 17, 2024 10: 39pm dizziness, headache November 18, 2024 11: 17pm ill November 20, 2024 11: 40am head/neck pain November 21, 2024 10: 22am left side fsce, head and neck pain November 21, 2024 6:12pm rt knee inj November 24, 2024 5:0 1pm Elevated Blood Sugar November 24, 2024 10 :15pm headache, neck and shoulder pain November 032024 12:10am Chief Complaint Admit Date Headache August 29, 2024 9 :12pm headache September 03, 2024 8 :55pm Neck and Head Pain September 06, 2024 6 :43pm fell,hit head September 13, 2024 10:10pm pain October 10, 2024 6:56 pm Headache and knee pain November 03, 2024 1 2:03am [email or web address] November 04, 2024 10:1 1am headache, knee pain November 04, 2024 9:18 pm Headache November 05, 2024 12:1 3am joint pain November 09, 2024 12:4 4am headache, anxiety November 13, 2024 3:4 3am head and knee pain November 14, 2024 1:3 3pm ms effects November 17, 2024 10: 39pm dizziness, headache November 18, 2024 11: 17pm ill November 20, 2024 11: 40am head/neck pain November 21, 2024 10: 22am left side fsce, head and neck pain November 21, 2024 6:12pm rt knee inj November 24, 2024 5:0 1pm Elevated Blood Sugar November 24, 2024 10 :15pm headache, neck and shoulder pain November 032024 12:10am head,neck, shoulder pain November 27 2:32pm Chief Complaint Admit Date headache September 03, 2024 8 :55pm Neck and Head Pain September 06, 2024 6 :43pm fell,hit head September 13, 2024 10:10pm pain October 10, 2024 6:56 pm Headache and knee pain November 03, 2024 1 2:03am [email or web address] November 04, 2024 10:1 1am headache, knee pain November 04, 2024 9:18 pm Headache November 05, 2024 12:1 3am joint pain November 09, 2024 12:4 4am headache, anxiety November 13, 2024 3:4 3am head and knee pain November 14, 2024 1:3 3pm ms effects November 17, 2024 10: 39pm dizziness, headache November 18, 2024 11: 17pm ill November 20, 2024 11: 40am head/neck pain November 21, 2024 10: 22am left side fsce, head and neck pain November 21, 2024 6:12pm rt knee inj November 24, 2024 5:0 1pm Elevated Blood Sugar November 24, 2024 10 :15pm headache, neck and shoulder pain November 032024 12:10am head,neck, shoulder pain November 27 2:32pm head/neck pain, cecily knee lac November 28, 2024 2:22pm Chief Complaint Admit Date headache September 03, 2024 8 :55pm Neck and Head Pain September 06, 2024 6 :43pm fell,hit head September 13, 2024 10:10pm pain October 10, 2024 6:56 pm Headache and knee pain November 03, 2024 1 2:03am [email or web address] November 04, 2024 10:1 1am headache, knee pain November 04, 2024 9:18 pm Headache November 05, 2024 12:1 3am joint pain November 09, 2024 12:4 4am headache, anxiety November 13, 2024 3:4 3am head and knee pain November 14, 2024 1:3 3pm ms effects November 17, 2024 10: 39pm dizziness, headache November 18, 2024 11: 17pm ill November 20, 2024 11: 40am head/neck pain November 21, 2024 10: 22am left side fsce, head and neck pain November 21, 2024 6:12pm rt knee inj November 24, 2024 5:0 1pm Elevated Blood Sugar November 24, 2024 10 :15pm headache, neck and shoulder pain November 032024 12:10am head,neck, shoulder pain November 27 2:32pm head/neck pain, cecily knee lac November 28, 2024 2:22pm r74.8 r23.2 e78.2 e11.40 z79.4 n18.1 e21 .3 November 29, 2024 2:12pm Chief Complaint Admit Date headache September 03, 2024 8 :55pm Neck and Head Pain September 06, 2024 6 :43pm fell,hit head September 13, 2024 10:10pm pain October 10, 2024 6:56 pm Headache and knee pain November 03, 2024 1 2:03am [email or web address] November 04, 2024 10:1 1am headache, knee pain November 04, 2024 9:18 pm Headache November 05, 2024 12:1 3am joint pain November 09, 2024 12:4 4am headache, anxiety November 13, 2024 3:4 3am head and knee pain November 14, 2024 1:3 3pm ms effects November 17, 2024 10: 39pm dizziness, headache November 18, 2024 11: 17pm ill November 20, 2024 11: 40am head/neck pain November 21, 2024 10: 22am left side fsce, head and neck pain November 21, 2024 6:12pm rt knee inj November 24, 2024 5:0 1pm Elevated Blood Sugar November 24, 2024 10 :15pm headache, neck and shoulder pain November 032024 12:10am head,neck, shoulder pain November 27 2:32pm head/neck pain, cecily knee lac November 28, 2024 2:22pm r74.8 r23.2 e78.2 e11.40 z79.4 n18.1 e21 .3 November 29, 2024 2:12pm headache November 30, 2024 7:5 3pm Chief Complaint Admit Date headache September 03, 2024 8 :55pm Neck and Head Pain September 06, 2024 6 :43pm fell,hit head September 13, 2024 10:10pm pain October 10, 2024 6:56 pm Headache and knee pain November 03, 2024 1 2:03am [email or web address] November 04, 2024 10:1 1am headache, knee pain November 04, 2024 9:18 pm Headache November 05, 2024 12:1 3am joint pain November 09, 2024 12:4 4am headache, anxiety November 13, 2024 3:4 3am head and knee pain November 14, 2024 1:3 3pm ms effects November 17, 2024 10: 39pm dizziness, headache November 18, 2024 11: 17pm ill November 20, 2024 11: 40am head/neck pain November 21, 2024 10: 22am left side fsce, head and neck pain November 21, 2024 6:12pm rt knee inj November 24, 2024 5:0 1pm Elevated Blood Sugar November 24, 2024 10 :15pm headache, neck and shoulder pain November 032024 12:10am head,neck, shoulder pain November 27 2:32pm head/neck pain, cecily knee lac November 28, 2024 2:22pm r74.8 r23.2 e78.2 e11.40 z79.4 n18.1 e21 .3 November 29, 2024 2:12pm headache November 30, 2024 7:5 3pm sob December 02, 2024 9:49pm Chief Complaint Admit Date Neck and Head Pain September 06, 2024 6 :43pm fell,hit head September 13, 2024 10:10pm pain October 10, 2024 6:56 pm Headache and knee pain November 03, 2024 1 2:03am [email or web address] November 04, 2024 10:1 1am headache, knee pain November 04, 2024 9:18 pm Headache November 05, 2024 12:1 3am joint pain November 09, 2024 12:4 4am headache, anxiety November 13, 2024 3:4 3am head and knee pain November 14, 2024 1:3 3pm ms effects November 17, 2024 10: 39pm dizziness, headache November 18, 2024 11: 17pm ill November 20, 2024 11: 40am head/neck pain November 21, 2024 10: 22am left side fsce, head and neck pain November 21, 2024 6:12pm rt knee inj November 24, 2024 5:0 1pm Elevated Blood Sugar November 24, 2024 10 :15pm headache, neck and shoulder pain November 032024 12:10am head,neck, shoulder pain November 27 2:32pm head/neck pain, cecily knee lac November 28, 2024 2:22pm r74.8 r23.2 e78.2 e11.40 z79.4 n18.1 e21 .3 November 29, 2024 2:12pm headache November 30, 2024 7:5 3pm sob December 02, 2024 9:49pm headache, rash December 05, 2024 12:20p m Chief Complaint Admit Date fell,hit head September 13, 2024 10:10pm pain October 10, 2024 6:56 pm Headache and knee pain November 03, 2024 1 2:03am [email or web address] November 04, 2024 10:1 1am headache, knee pain November 04, 2024 9:18 pm Headache November 05, 2024 12:1 3am joint pain November 09, 2024 12:4 4am headache, anxiety November 13, 2024 3:4 3am head and knee pain November 14, 2024 1:3 3pm ms effects November 17, 2024 10: 39pm dizziness, headache November 18, 2024 11: 17pm ill November 20, 2024 11: 40am head/neck pain November 21, 2024 10: 22am left side fsce, head and neck pain November 21, 2024 6:12pm rt knee inj November 24, 2024 5:0 1pm Elevated Blood Sugar November 24, 2024 10 :15pm headache, neck and shoulder pain November 032024 12:10am head,neck, shoulder pain November 27 2:32pm head/neck pain, cecily knee lac November 28, 2024 2:22pm r74.8 r23.2 e78.2 e11.40 z79.4 n18.1 e21 .3 November 29, 2024 2:12pm headache November 30, 2024 7:5 3pm sob December 02, 2024 9:49pm headache, rash December 05, 2024 12:20p m right side and left leg shingles December 4:56pm Chief Complaint Admit Date fell,hit head September 13, 2024 10:10pm pain October 10, 2024 6:56 pm Headache and knee pain November 03, 2024 1 2:03am r74.8 November 04, 2024 10:1 1am headache, knee pain November 04, 2024 9:18 pm Headache November 05, 2024 12:1 3am joint pain November 09, 2024 12:4 4am headache, anxiety November 13, 2024 3:4 3am head and knee pain November 14, 2024 1:3 3pm ms effects November 17, 2024 10: 39pm dizziness, headache November 18, 2024 11: 17pm ill November 20, 2024 11: 40am head/neck pain November 21, 2024 10: 22am left side fsce, head and neck pain November 21, 2024 6:12pm rt knee inj November 24, 2024 5:0 1pm Elevated Blood Sugar November 24, 2024 10 :15pm headache, neck and shoulder pain November 032024 12:10am head,neck, shoulder pain November 27 2:32pm head/neck pain, cecily knee lac November 28, 2024 2:22pm r74.8 r23.2 e78.2 e11.40 z79.4 n18.1 e21 .3 November 29, 2024 2:12pm headache November 30, 2024 7:5 3pm sob December 02, 2024 9:49pm headache, rash December 05, 2024 12:20p m right side and left leg shingles December 4:56pm infection on rt side of abd December 08 4:54pm Chief Complaint Admit Date pain October 10, 2024 6:56 pm Headache and knee pain November 03, 2024 1 2:03am r74.8 November 04, 2024 10:1 1am headache, knee pain November 04, 2024 9:18 pm Headache November 05, 2024 12:1 3am joint pain November 09, 2024 12:4 4am headache, anxiety November 13, 2024 3:4 3am head and knee pain November 14, 2024 1:3 3pm ms effects November 17, 2024 10: 39pm dizziness, headache November 18, 2024 11: 17pm ill November 20, 2024 11: 40am head/neck pain November 21, 2024 10: 22am left side fsce, head and neck pain November 21, 2024 6:12pm rt knee inj November 24, 2024 5:0 1pm Elevated Blood Sugar November 24, 2024 10 :15pm headache, neck and shoulder pain November 032024 12:10am head,neck, shoulder pain November 27 2:32pm head/neck pain, cecily knee lac November 28, 2024 2:22pm r74.8 r23.2 e78.2 e11.40 z79.4 n18.1 e21 .3 November 29, 2024 2:12pm headache November 30, 2024 7:5 3pm sob December 02, 2024 9:49pm headache, rash December 05, 2024 12:20p m right side and left leg shingles December 4:56pm infection on rt side of abd December 08 4:54pm MS December 09, 2024 7:51am headache December 09, 2024 8:15pm Chief Complaint Admit Date pain October 10, 2024 6:56 pm Headache and knee pain November 03, 2024 1 2:03am r74.8 November 04, 2024 10:1 1am headache, knee pain November 04, 2024 9:18 pm Headache November 05, 2024 12:1 3am joint pain November 09, 2024 12:4 4am headache, anxiety November 13, 2024 3:4 3am head and knee pain November 14, 2024 1:3 3pm ms effects November 17, 2024 10: 39pm dizziness, headache November 18, 2024 11: 17pm ill November 20, 2024 11: 40am head/neck pain November 21, 2024 10: 22am left side fsce, head and neck pain November 21, 2024 6:12pm rt knee inj November 24, 2024 5:0 1pm Elevated Blood Sugar November 24, 2024 10 :15pm headache, neck and shoulder pain November 032024 12:10am head,neck, shoulder pain November 27 2:32pm head/neck pain, cecily knee lac November 28, 2024 2:22pm r74.8 r23.2 e78.2 e11.40 z79.4 n18.1 e21 .3 November 29, 2024 2:12pm headache November 30, 2024 7:5 3pm sob December 02, 2024 9:49pm headache, rash December 05, 2024 12:20p m right side and left leg shingles December 4:56pm infection on rt side of abd December 08 4:54pm headache December 09, 2024 8:15pm Migraine December 16, 2024 9:38p m rt knee,head pain December 17, 2024 3:07p m migraine December 18, 2024 11:41 pm headache December 19, 2024 6:29p m Migraine December 20, 2024 4:05p m headache, shaking December 21, 2024 1:36p m Recheck headache December 21, 2024 7:04p m headache December 22, 2024 4:55p m MS December 23, 2024 8:10a m high blood sugar December 23, 2024 11:26 pm Chief Complaint Admit Date pain October 10, 2024 6:56 pm Headache and knee pain November 03, 2024 1 2:03am r74.8 November 04, 2024 10:1 1am headache, knee pain November 04, 2024 9:18 pm Headache November 05, 2024 12:1 3am joint pain November 09, 2024 12:4 4am headache, anxiety November 13, 2024 3:4 3am head and knee pain November 14, 2024 1:3 3pm ms effects November 17, 2024 10: 39pm dizziness, headache November 18, 2024 11: 17pm ill November 20, 2024 11: 40am head/neck pain November 21, 2024 10: 22am left side fsce, head and neck pain November 21, 2024 6:12pm rt knee inj November 24, 2024 5:0 1pm Elevated Blood Sugar November 24, 2024 10 :15pm headache, neck and shoulder pain November 032024 12:10am head,neck, shoulder pain November 27 2:32pm head/neck pain, cecily knee lac November 28, 2024 2:22pm r74.8 r23.2 e78.2 e11.40 z79.4 n18.1 e21 .3 November 29, 2024 2:12pm headache November 30, 2024 7:5 3pm sob December 02, 2024 9:49pm headache, rash December 05, 2024 12:20p m right side and left leg shingles December 4:56pm infection on rt side of abd December 08 4:54pm headache December 09, 2024 8:15pm Migraine December 16, 2024 9:38p m rt knee,head pain December 17, 2024 3:07p m migraine December 18, 2024 11:41 pm headache December 19, 2024 6:29p m Migraine December 20, 2024 4:05p m headache, shaking December 21, 2024 1:36p m Recheck headache December 21, 2024 7:04p m headache December 22, 2024 4:55p m MS December 23, 2024 8:10a m high blood sugar December 23, 2024 11:26 pm headache December 24, 2024 3:55p m Chief Complaint Admit Date pain October 10, 2024 6:56 pm Headache and knee pain November 03, 2024 1 2:03am r74.8 November 04, 2024 10:1 1am headache, knee pain November 04, 2024 9:18 pm Headache November 05, 2024 12:1 3am joint pain November 09, 2024 12:4 4am headache, anxiety November 13, 2024 3:4 3am head and knee pain November 14, 2024 1:3 3pm ms effects November 17, 2024 10: 39pm dizziness, headache November 18, 2024 11: 17pm ill November 20, 2024 11: 40am head/neck pain November 21, 2024 10: 22am left side fsce, head and neck pain November 21, 2024 6:12pm rt knee inj November 24, 2024 5:0 1pm Elevated Blood Sugar November 24, 2024 10 :15pm headache, neck and shoulder pain November 032024 12:10am head,neck, shoulder pain November 27 2:32pm head/neck pain, cecily knee lac November 28, 2024 2:22pm r74.8 r23.2 e78.2 e11.40 z79.4 n18.1 e21 .3 November 29, 2024 2:12pm headache November 30, 2024 7:5 3pm sob December 02, 2024 9:49pm headache, rash December 05, 2024 12:20p m right side and left leg shingles December 4:56pm infection on rt side of abd December 08 4:54pm headache December 09, 2024 8:15pm Migraine December 16, 2024 9:38p m rt knee,head pain December 17, 2024 3:07p m migraine December 18, 2024 11:41 pm headache December 19, 2024 6:29p m Migraine December 20, 2024 4:05p m headache, shaking December 21, 2024 1:36p m Recheck headache December 21, 2024 7:04p m headache December 22, 2024 4:55p m MS December 23, 2024 8:10a m high blood sugar December 23, 2024 11:26 pm headache December 24, 2024 3:55p m headache December 25, 2024 6:37p m Chief Complaint Admit Date pain October 10, 2024 6:56 pm Headache and knee pain November 03, 2024 1 2:03am r74.8 November 04, 2024 10:1 1am headache, knee pain November 04, 2024 9:18 pm Headache November 05, 2024 12:1 3am joint pain November 09, 2024 12:4 4am headache, anxiety November 13, 2024 3:4 3am head and knee pain November 14, 2024 1:3 3pm ms effects November 17, 2024 10: 39pm dizziness, headache November 18, 2024 11: 17pm ill November 20, 2024 11: 40am head/neck pain November 21, 2024 10: 22am left side fsce, head and neck pain November 21, 2024 6:12pm rt knee inj November 24, 2024 5:0 1pm Elevated Blood Sugar November 24, 2024 10 :15pm headache, neck and shoulder pain November 032024 12:10am head,neck, shoulder pain November 27 2:32pm head/neck pain, cecily knee lac November 28, 2024 2:22pm r74.8 r23.2 e78.2 e11.40 z79.4 n18.1 e21 .3 November 29, 2024 2:12pm headache November 30, 2024 7:5 3pm sob December 02, 2024 9:49pm headache, rash December 05, 2024 12:20p m right side and left leg shingles December 4:56pm infection on rt side of abd December 08 4:54pm headache December 09, 2024 8:15pm Migraine December 16, 2024 9:38p m rt knee,head pain December 17, 2024 3:07p m migraine December 18, 2024 11:41 pm headache December 19, 2024 6:29p m Migraine December 20, 2024 4:05p m headache, shaking December 21, 2024 1:36p m Recheck headache December 21, 2024 7:04p m headache December 22, 2024 4:55p m MS December 23, 2024 8:10a m high blood sugar December 23, 2024 11:26 pm headache December 24, 2024 3:55p m headache December 25, 2024 6:37p m can't feel hands and feet December 25, 2024 11:17pm Chief Complaint Admit Date pain October 10, 2024 6:56 pm Headache and knee pain November 03, 2024 1 2:03am r74.8 November 04, 2024 10:1 1am headache, knee pain November 04, 2024 9:18 pm Headache November 05, 2024 12:1 3am joint pain November 09, 2024 12:4 4am headache, anxiety November 13, 2024 3:4 3am head and knee pain November 14, 2024 1:3 3pm ms effects November 17, 2024 10: 39pm dizziness, headache November 18, 2024 11: 17pm ill November 20, 2024 11: 40am head/neck pain November 21, 2024 10: 22am left side fsce, head and neck pain November 21, 2024 6:12pm rt knee inj November 24, 2024 5:0 1pm Elevated Blood Sugar November 24, 2024 10 :15pm headache, neck and shoulder pain November 032024 12:10am head,neck, shoulder pain November 27 2:32pm head/neck pain, cecily knee lac November 28, 2024 2:22pm r74.8 r23.2 e78.2 e11.40 z79.4 n18.1 e21 .3 November 29, 2024 2:12pm headache November 30, 2024 7:5 3pm sob December 02, 2024 9:49pm headache, rash December 05, 2024 12:20p m right side and left leg shingles December 4:56pm infection on rt side of abd December 08 4:54pm headache December 09, 2024 8:15pm Migraine December 16, 2024 9:38p m rt knee,head pain December 17, 2024 3:07p m migraine December 18, 2024 11:41 pm headache December 19, 2024 6:29p m Migraine December 20, 2024 4:05p m headache, shaking December 21, 2024 1:36p m Recheck headache December 21, 2024 7:04p m headache December 22, 2024 4:55p m MS December 23, 2024 8:10a m high blood sugar December 23, 2024 11:26 pm headache December 24, 2024 3:55p m headache December 25, 2024 6:37p m can't feel hands and feet December 25, 2024 11:17pm chest pain, headache December 26, 2024 3:01 pm Chief Complaint Admit Date pain October 10, 2024 6:56 pm Headache and knee pain November 03, 2024 1 2:03am r74.8 November 04, 2024 10:1 1am headache, knee pain November 04, 2024 9:18 pm Headache November 05, 2024 12:1 3am joint pain November 09, 2024 12:4 4am headache, anxiety November 13, 2024 3:4 3am head and knee pain November 14, 2024 1:3 3pm ms effects November 17, 2024 10: 39pm dizziness, headache November 18, 2024 11: 17pm ill November 20, 2024 11: 40am head/neck pain November 21, 2024 10: 22am left side fsce, head and neck pain November 21, 2024 6:12pm rt knee inj November 24, 2024 5:0 1pm Elevated Blood Sugar November 24, 2024 10 :15pm headache, neck and shoulder pain November 032024 12:10am head,neck, shoulder pain November 27 2:32pm head/neck pain, cecily knee lac November 28, 2024 2:22pm r74.8 r23.2 e78.2 e11.40 z79.4 n18.1 e21 .3 November 29, 2024 2:12pm headache November 30, 2024 7:5 3pm sob December 02, 2024 9:49pm headache, rash December 05, 2024 12:20p m right side and left leg shingles December 4:56pm infection on rt side of abd December 08 4:54pm headache December 09, 2024 8:15pm Migraine December 16, 2024 9:38p m rt knee,head pain December 17, 2024 3:07p m migraine December 18, 2024 11:41 pm headache December 19, 2024 6:29p m Migraine December 20, 2024 4:05p m headache, shaking December 21, 2024 1:36p m Recheck headache December 21, 2024 7:04p m headache December 22, 2024 4:55p m MS December 23, 2024 8:10a m high blood sugar December 23, 2024 11:26 pm headache December 24, 2024 3:55p m headache December 25, 2024 6:37p m can't feel hands and feet December 25, 2024 11:17pm chest pain, headache December 26, 2024 3:01 pm Headache, R Knee Pain December 26, 2024 9:5 6pm Chief Complaint Admit Date pain October 10, 2024 6:56 pm Headache and knee pain November 03, 2024 1 2:03am [email or web address] November 04, 2024 10:1 1am headache, knee pain November 04, 2024 9:18 pm Headache November 05, 2024 12:1 3am joint pain November 09, 2024 12:4 4am headache, anxiety November 13, 2024 3:4 3am head and knee pain November 14, 2024 1:3 3pm ms effects November 17, 2024 10: 39pm dizziness, headache November 18, 2024 11: 17pm ill Perri 19th, 2025 11: 40am head/neck pain November 21, 2024 10: 22am left side fsce, head and neck pain November 21, 2024 6:12pm rt knee inj November 24, 2024 5:0 1pm Elevated Blood Sugar November 24, 2024 10 :15pm headache, neck and shoulder pain November 032024 12:10am head,neck, shoulder pain November 27 2:32pm head/neck pain, cecily knee lac November 28, 2024 2:22pm r74.8 r23.2 e78.2 e11.40 z79.4 n18.1 e21 .3 November 29, 2024 2:12pm headache November 30, 2024 7:5 3pm sob December 02, 2024 9:49pm headache, rash December 05, 2024 12:20p m right side and left leg shingles December 4:56pm infection on rt side of abd December 08 4:54pm headache December 09, 2024 8:15pm Migraine December 16, 2024 9:38p m rt knee,head pain December 17, 2024 3:07p m migraine December 18, 2024 11:41 pm headache December 19, 2024 6:29p m Migraine December 20, 2024 4:05p m headache, shaking December 21, 2024 1:36p m Recheck headache December 21, 2024 7:04p m headache December 22, 2024 4:55p m MS December 23, 2024 8:10a m high blood sugar December 23, 2024 11:26 pm headache December 24, 2024 3:55p m headache December 25, 2024 6:37p m can't feel hands and feet December 25, 2024 11:17pm chest pain, headache December 26, 2024 3:01 pm Headache, R Knee Pain December 26, 2024 9:5 6pm headache December 27, 2024 11:44 am Chief Complaint Admit Date pain October 10, 2024 6:56 pm Headache and knee pain November 03, 2024 1 2:03am [email or web address] November 04, 2024 10:1 1am headache, knee pain November 04, 2024 9:18 pm Headache November 05, 2024 12:1 3am joint pain November 09, 2024 12:4 4am headache, anxiety November 13, 2024 3:4 3am head and knee pain November 14, 2024 1:3 3pm ms effects November 17, 2024 10: 39pm dizziness, headache November 18, 2024 11: 17pm ill November 20, 2024 11: 40am head/neck pain November 21, 2024 10: 22am left side fsce, head and neck pain November 21, 2024 6:12pm rt knee inj November 24, 2024 5:0 1pm Elevated Blood Sugar November 24, 2024 10 :15pm headache, neck and shoulder pain November 032024 12:10am head,neck, shoulder pain November 27 2:32pm head/neck pain, cecily knee lac November 28, 2024 2:22pm r74.8 r23.2 e78.2 e11.40 z79.4 n18.1 e21 .3 November 29, 2024 2:12pm headache November 30, 2024 7:5 3pm sob December 02, 2024 9:49pm headache, rash December 05, 2024 12:20p m right side and left leg shingles December 4:56pm infection on rt side of abd December 08 4:54pm headache December 09, 2024 8:15pm Migraine December 16, 2024 9:38p m rt knee,head pain December 17, 2024 3:07p m migraine December 18, 2024 11:41 pm headache December 19, 2024 6:29p m Migraine December 20, 2024 4:05p m headache, shaking December 21, 2024 1:36p m Recheck headache December 21, 2024 7:04p m headache December 22, 2024 4:55p m MS December 23, 2024 8:10a m high blood sugar December 23, 2024 11:26 pm headache December 24, 2024 3:55p m headache December 25, 2024 6:37p m can't feel hands and feet December 25, 2024 11:17pm chest pain, headache December 26, 2024 3:01 pm Headache, R Knee Pain December 26, 2024 9:5 6pm headache December 27, 2024 11:44 am Headache December 27, 2024 11:05 pm Chief Complaint Admit Date pain October 10, 2024 6:56 pm Headache and knee pain November 03, 2024 1 2:03am [email or web address] November 04, 2024 10:1 1am headache, knee pain November 04, 2024 9:18 pm Headache November 05, 2024 12:1 3am joint pain November 09, 2024 12:4 4am headache, anxiety November 13, 2024 3:4 3am head and knee pain November 14, 2024 1:3 3pm ms effects November 17, 2024 10: 39pm dizziness, headache November 18, 2024 11: 17pm ill November 20, 2024 11: 40am head/neck pain November 21, 2024 10: 22am left side fsce, head and neck pain November 21, 2024 6:12pm rt knee inj November 24, 2024 5:0 1pm Elevated Blood Sugar November 24, 2024 10 :15pm headache, neck and shoulder pain November 032024 12:10am head,neck, shoulder pain November 27 2:32pm head/neck pain, cecily knee lac November 28, 2024 2:22pm r74.8 r23.2 e78.2 e11.40 z79.4 n18.1 e21 .3 November 29, 2024 2:12pm headache November 30, 2024 7:5 3pm sob December 02, 2024 9:49pm headache, rash December 05, 2024 12:20p m right side and left leg shingles December 4:56pm infection on rt side of abd December 08 4:54pm headache December 09, 2024 8:15pm Migraine December 16, 2024 9:38p m rt knee,head pain December 17, 2024 3:07p m migraine December 18, 2024 11:41 pm headache December 19, 2024 6:29p m Migraine December 20, 2024 4:05p m headache, shaking December 21, 2024 1:36p m Recheck headache December 21, 2024 7:04p m headache December 22, 2024 4:55p m MS December 23, 2024 8:10a m high blood sugar December 23, 2024 11:26 pm headache December 24, 2024 3:55p m headache December 25, 2024 6:37p m can't feel hands and feet December 25, 2024 11:17pm chest pain, headache December 26, 2024 3:01 pm Headache, R Knee Pain December 26, 2024 9:5 6pm headache December 27, 2024 11:44 am Headache December 27, 2024 11:05 pm sob December 28, 2024 5:31p m Chief Complaint Admit Date pain October 10, 2024 6:56 pm Headache and knee pain November 03, 2024 1 2:03am [email or web address] November 04, 2024 10:1 1am headache, knee pain November 04, 2024 9:18 pm Headache November 05, 2024 12:1 3am joint pain November 09, 2024 12:4 4am headache, anxiety November 13, 2024 3:4 3am head and knee pain November 14, 2024 1:3 3pm ms effects November 17, 2024 10: 39pm dizziness, headache November 18, 2024 11: 17pm ill November 20, 2024 11: 40am head/neck pain November 21, 2024 10: 22am left side fsce, head and neck pain November 21, 2024 6:12pm rt knee inj November 24, 2024 5:0 1pm Elevated Blood Sugar November 24, 2024 10 :15pm headache, neck and shoulder pain November 032024 12:10am head,neck, shoulder pain November 27 2:32pm head/neck pain, cecily knee lac November 28, 2024 2:22pm r74.8 r23.2 e78.2 e11.40 z79.4 n18.1 e21 .3 November 29, 2024 2:12pm headache November 30, 2024 7:5 3pm sob December 02, 2024 9:49pm headache, rash December 05, 2024 12:20p m right side and left leg shingles December 4:56pm infection on rt side of abd December 08 4:54pm headache December 09, 2024 8:15pm Migraine December 16, 2024 9:38p m rt knee,head pain December 17, 2024 3:07p m migraine December 18, 2024 11:41 pm headache December 19, 2024 6:29p m Migraine December 20, 2024 4:05p m headache, shaking December 21, 2024 1:36p m Recheck headache December 21, 2024 7:04p m headache December 22, 2024 4:55p m MS December 23, 2024 8:10a m high blood sugar December 23, 2024 11:26 pm headache December 24, 2024 3:55p m headache December 25, 2024 6:37p m can't feel hands and feet December 25, 2024 11:17pm chest pain, headache December 26, 2024 3:01 pm Headache, R Knee Pain December 26, 2024 9:5 6pm headache December 27, 2024 11:44 am Headache December 27, 2024 11:05 pm sob December 28, 2024 5:31p m dizziness December 29, 2024 9:49a m Chief Complaint Admit Date pain October 10, 2024 6:56 pm Headache and knee pain November 03, 2024 1 2:03am [email or web address] November 04, 2024 10:1 1am headache, knee pain November 04, 2024 9:18 pm Headache November 05, 2024 12:1 3am joint pain November 09, 2024 12:4 4am headache, anxiety November 13, 2024 3:4 3am head and knee pain November 14, 2024 1:3 3pm ms effects November 17, 2024 10: 39pm dizziness, headache November 18, 2024 11: 17pm ill November 20, 2024 11: 40am head/neck pain November 21, 2024 10: 22am left side fsce, head and neck pain November 21, 2024 6:12pm rt knee inj November 24, 2024 5:0 1pm Elevated Blood Sugar November 24, 2024 10 :15pm headache, neck and shoulder pain November 032024 12:10am head,neck, shoulder pain November 27 2:32pm head/neck pain, cecily knee lac November 28, 2024 2:22pm r74.8 r23.2 e78.2 e11.40 z79.4 n18.1 e21 .3 November 29, 2024 2:12pm headache November 30, 2024 7:5 3pm sob December 02, 2024 9:49pm headache, rash December 05, 2024 12:20p m right side and left leg shingles December 4:56pm infection on rt side of abd December 08 4:54pm headache December 09, 2024 8:15pm Migraine December 16, 2024 9:38p m rt knee,head pain December 17, 2024 3:07p m migraine December 18, 2024 11:41 pm headache December 19, 2024 6:29p m Migraine December 20, 2024 4:05p m headache, shaking December 21, 2024 1:36p m Recheck headache December 21, 2024 7:04p m headache December 22, 2024 4:55p m MS December 23, 2024 8:10a m high blood sugar December 23, 2024 11:26 pm headache December 24, 2024 3:55p m headache December 25, 2024 6:37p m can't feel hands and feet December 25, 2024 11:17pm chest pain, headache December 26, 2024 3:01 pm Headache, R Knee Pain December 26, 2024 9:5 6pm headache December 27, 2024 11:44 am Headache December 27, 2024 11:05 pm sob December 28, 2024 5:31p m dizziness December 29, 2024 9:49a m Headache December 29, 2024 11:06 pm Chief Complaint Admit Date pain October 10, 2024 6:56 pm Headache and knee pain November 03, 2024 1 2:03am [email or web address] November 04, 2024 10:1 1am headache, knee pain November 04, 2024 9:18 pm Headache November 05, 2024 12:1 3am joint pain November 09, 2024 12:4 4am headache, anxiety November 13, 2024 3:4 3am head and knee pain November 14, 2024 1:3 3pm ms effects November 17, 2024 10: 39pm dizziness, headache November 18, 2024 11: 17pm ill November 20, 2024 11: 40am head/neck pain November 21, 2024 10: 22am left side fsce, head and neck pain November 21, 2024 6:12pm rt knee inj November 24, 2024 5:0 1pm Elevated Blood Sugar November 24, 2024 10 :15pm headache, neck and shoulder pain November 032024 12:10am head,neck, shoulder pain November 27 2:32pm head/neck pain, cecily knee lac November 28, 2024 2:22pm r74.8 r23.2 e78.2 e11.40 z79.4 n18.1 e21 .3 November 29, 2024 2:12pm headache November 30, 2024 7:5 3pm sob December 02, 2024 9:49pm headache, rash December 05, 2024 12:20p m right side and left leg shingles December 4:56pm infection on rt side of abd December 08 4:54pm headache December 09, 2024 8:15pm Migraine December 16, 2024 9:38p m rt knee,head pain December 17, 2024 3:07p m migraine December 18, 2024 11:41 pm headache December 19, 2024 6:29p m Migraine December 20, 2024 4:05p m headache, shaking December 21, 2024 1:36p m Recheck headache December 21, 2024 7:04p m headache December 22, 2024 4:55p m MS December 23, 2024 8:10a m high blood sugar December 23, 2024 11:26 pm headache December 24, 2024 3:55p m headache December 25, 2024 6:37p m can't feel hands and feet December 25, 2024 11:17pm chest pain, headache December 26, 2024 3:01 pm Headache, R Knee Pain December 26, 2024 9:5 6pm headache December 27, 2024 11:44 am Headache December 27, 2024 11:05 pm sob December 28, 2024 5:31p m dizziness December 29, 2024 9:49a m Headache December 29, 2024 11:06 pm dizziness December 30, 2024 7:19p m Chief Complaint Admit Date pain October 10, 2024 6:56 pm Headache and knee pain November 03, 2024 1 2:03am [email or web address] November 04, 2024 10:1 1am headache, knee pain November 04, 2024 9:18 pm Headache November 05, 2024 12:1 3am joint pain November 09, 2024 12:4 4am headache, anxiety November 13, 2024 3:4 3am head and knee pain November 14, 2024 1:3 3pm ms effects November 17, 2024 10: 39pm dizziness, headache November 18, 2024 11: 17pm ill November 20, 2024 11: 40am head/neck pain November 21, 2024 10: 22am left side fsce, head and neck pain November 21, 2024 6:12pm rt knee inj November 24, 2024 5:0 1pm Elevated Blood Sugar November 24, 2024 10 :15pm headache, neck and shoulder pain November 032024 12:10am head,neck, shoulder pain November 27 2:32pm head/neck pain, cecily knee lac November 28, 2024 2:22pm r74.8 r23.2 e78.2 e11.40 z79.4 n18.1 e21 .3 November 29, 2024 2:12pm headache November 30, 2024 7:5 3pm sob December 02, 2024 9:49pm headache, rash December 05, 2024 12:20p m right side and left leg shingles December 4:56pm infection on rt side of abd December 08 4:54pm headache December 09, 2024 8:15pm Migraine December 16, 2024 9:38p m rt knee,head pain December 17, 2024 3:07p m migraine December 18, 2024 11:41 pm headache December 19, 2024 6:29p m Migraine December 20, 2024 4:05p m headache, shaking December 21, 2024 1:36p m Recheck headache December 21, 2024 7:04p m headache December 22, 2024 4:55p m MS December 23, 2024 8:10a m high blood sugar December 23, 2024 11:26 pm headache December 24, 2024 3:55p m headache December 25, 2024 6:37p m can't feel hands and feet December 25, 2024 11:17pm chest pain, headache December 26, 2024 3:01 pm Headache, R Knee Pain December 26, 2024 9:5 6pm headache December 27, 2024 11:44 am Headache December 27, 2024 11:05 pm sob December 28, 2024 5:31p m dizziness December 29, 2024 9:49a m Headache December 29, 2024 11:06 pm dizziness December 30, 2024 7:19p m weakenss January 01, 2025 10:25 am Additional Source Comments (unrecognized sect ion and content) No Status Records FoundNo Status Records FoundNo Status Records FoundNo Status Records FoundNo Status Records FoundNo Status Records FoundNo Status Records FoundNo Status Records Found INFORMATION SOURCE (unrecogn ized section and content) DATE CREATED AUTHOR 11/24/2019 [facility] DATE CREATED AUTHOR AUTHOR'S ORGANIZ ATION 02/11/2021 [facility] DATE CREATED AUTHOR AUTHOR'S ORGANIZ ATION 03/05/2021 [facility] DATE CREATED AUTHOR AUTHOR'S ORGANIZ ATION 08/31/2021 [facility] DATE CREATED AUTHOR AUTHOR'S ORGANIZ ATION 04/01/2022 [facility] DATE CREATED AUTHOR AUTHOR'S ORGANIZ ATION 03/15/2023 [facility] DATE CREATED AUTHOR AUTHOR'S ORGANIZ ATION 12/30/2024 [facility] EPIC DATE CREATED AUTHOR AUTHOR'S ORGANIZ ATION 01/01/2025 [facility] REASON FOR VISIT (unrecogniz ed section and content) Reason Onset Date Comments Med Refill 09/15/2023 Reason Onset Date Comments Med Refill 05/05/2024 Reason Comments RT Knee Injection Reason Comments Multiple Sclerosis Follow-up Reason Comments Radiology XR Reason Onset Date Comments Right Knee pain 05/18/2024 Reason Comments 3 Month Follow-up Review lab drawn , HbA1c = 12.1 dizziness, falls Discuss changing Lyr ica to Gabapentin Reason Comments Follow-up Multiple Sclerosis Reason Comments Med Refill Reason Onset Date Comments Med Refill 06/16/2024 Reason Comments ER Follow-up 06/25 [facility] [place] [place] dx: acute right knee pain, Pt eloped from hospitalPatient has complaints of generalized arthritis pain. Discuss referral to ortho for rt knee pain. Reason Onset Date Comments Med Refill 07/12/2024 Reason Comments Post ER He has had frequent ER visits within the last 10 days. He has multiple complaints. Frequent falls due to dizziness and leg weakness, headache, rt knee pain, rt hand pain, elevated BS. He is requesting renewal on Mclean, Ibuprofen , Tizanidine 4 mg (prescribed in ER) He would like to discuss Lyrica, states this was sent in at lower dose. Reason Comments Migraine Knee Pain Reason Onset Date Comments Lab Orders 08/10/2024 Reason Onset Date Comments fell this am 08/12/2024 Reason Comments Pain Reason Onset Date Comments med refills 09/14/2024 Reason Comments 3 Month Follow-up of Chronic Conditions Pt has neurology appointment in September with Dr. Gutierres. MRI was ordered and he wanted to be sedated. Reason Onset Date Comments fell last night hurting both knees and right arm 10/28/2024 Reason Onset Date Comments fell again 11/05/2024 Reason Comments 6 week f/u At last OV Pt was re ferred to rheumatology and a bone scan was ordered due to elevated alk phos level. Bone scan completed 11/04. Rheumatology appointment scheduled 12/15/2024 at [facility]. He has been seen at [facility] [place] [place] ER several times recently due to generalized pain and headache. Requesting Toradol Injection. Appointment scheduled with Sherwin Rosa 12/02 for bilateral knee pain. Reason Onset Date Comments Appt w/Dr. Sweet-Ref. from [facility] 12/08/2024 Reason Comments Skin Infection He developed rash un oneyda his breast and groin. ER visit 12/02 & 12/05, dx: fungal skin infection. Using Nystatin powder QID, prescribed Diflucan. Has odor, pain and drainage from site. Reason Comments Migraine Patient is here with complaints of migraine, bilateral temporal pain, for 15 days. Neck pain, bilateral. Appointment with Dr Gutierres on 01/04/2025 Reason Comments one week follow up Hypertension, Hyperg lycemia and Headache Care Teams (unrecognized sec tion and content) Team Status: Active Member Role Status Cesar Rojas MD Primary Care Provider Active Team Status: Inactive Member Role Status Cesar Rojas MD Primary Care Provider Active St art: June 17, 2024 End: June 17, 2024 Nestor Weeks DO Emergency Provider Active St art: June 17, 2024 End: June 17, 2024 Team Status: Inactive Member Role Status Csear Rojas MD Primary Care Provider Active St art: June 18, 2024 End: June 18, 2024 Nicole Ely [facility] Emergency Provider Active Start: June 18, 2024 End: June 18, 2024 Team Status: Inactive Member Role Status Cesar Rojas MD Primary Care Provider Active St art: June 24, 2024 End: June 24, 2024 Nestor Weeks DO Emergency Provider Active St art: June 24, 2024 End: June 24, 2024 Team Status: Inactive Member Role Status Cesar Rojas MD Primary Care Provider Active St art: June 25, 2024 End: June 25, 2024 Nestor Weeks DO Emergency Provider Active St art: June 25, 2024 End: June 25, 2024 Team Status: Inactive Member Role Status Cesar Rojas MD Primary Care Provider Active St art: July 06, 2024 End: July 06, 2024 Nestor Weeks DO Emergency Provider Active St art: July 06, 2024 End: July 06, 2024 Team Status: Inactive Member Role Status Cesar Rojas MD Primary Care Provider Active St art: July 09, 2024 End: July 09, 2024 Arpna Ross PA-C Emergency Provider Active Start: July 09, 2024 End: July 09, 2024 Team Status: Inactive Member Role Status Cesar Rojas MD Primary Care Provider Active St art: July 10, 2024 End: July 10, 2024 Conrad Torres APRN Emergency Provider Active Start: July 10, 2024 End: July 10, 2024 Team Status: Inactive Member Role Status Cesar Rojas MD Primary Care Provider Active St art: July 12, 2024 End: July 12, 2024 Nicole Ely [facility] Emergency Provider Active Start: July 12, 2024 End: July 12, 2024 Team Status: Inactive Member Role Status Cesar Rojas MD Primary Care Provider Active St art: July 13, 2024 End: July 13, 2024 Jessica Clark APRN Emergency Provider Active Start: July 13, 2024 End: July 13, 2024 Team Status: Inactive Member Role Status Cesar Rojas MD Primary Care Provider Active St art: July 14, 2024 End: July 14, 2024 Arpan Ross PA-C Emergency Provider Active Start: July 14, 2024 End: July 14, 2024 Team Status: Inactive Member Role Status Cesar Rojas MD Primary Care Provider Active St art: July 15, 2024 End: July 15, 2024 Eve Shelton APRN Emergency Provider Active S tart: July 15, 2024 End: July 15, 2024 Team Status: Inactive Member Role Status Cesar Rojas MD Primary Care Provider Active St art: July 15, 2024 End: July 15, 2024 Anny Baez DO Emergency Provider Active Sta rt: July 15, 2024 End: July 15, 2024 Team Status: Inactive Member Role Status Cesar Rojas MD Primary Care Provider Active St art: July 17, 2024 End: July 17, 2024 Nestor Weeks DO Emergency Provider Active St art: July 17, 2024 End: July 17, 2024 Team Status: Inactive Member Role Status Cesar Rojas MD Primary Care Provider Active St art: July 17, 2024 End: July 17, 2024 Waqas Andrade DO Emergency Provider Active Start: July 17, 2024 End: July 17, 2024 Team Status: Inactive Member Role Status Cesar Rojas MD Primary Care Provider Active St art: July 18, 2024 End: July 18, 2024 Nicole Ely [facility] Emergency Provider Active Start: July 18, 2024 End: July 18, 2024 Team Status: Inactive Member Role Status Cesar Rojas MD Primary Care Provider Active St art: July 19, 2024 End: July 19, 2024 Chris Aguilar DO Attending Provider Active S tart: July 19, 2024 End: July 19, 2024 Team Status: Inactive Member Role Status Cesar Rojas MD Primary Care Provider Active St art: July 19, 2024 End: July 20, 2024 Nestor Weeks DO Emergency Provider Active St art: July 19, 2024 End: July 20, 2024 Team Status: Inactive Member Role Status Cesar Rojas MD Primary Care Provider Active St art: July 23, 2024 End: July 23, 2024 Nestor Weeks DO Emergency Provider Active St art: July 23, 2024 End: July 23, 2024 Team Status: Inactive Member Role Status Cesar Rojas MD Primary Care Provider Active St art: July 24, 2024 End: July 24, 2024 Arpan Ross PA-C Emergency Provider Active Start: July 24, 2024 End: July 24, 2024 Team Status: Inactive Member Role Status Cesar Rojas MD Primary Care Provider Active St art: July 26, 2024 End: July 27, 2024 Aiden Mary MD Emergency Provider Active Star t: July 26, 2024 End: July 27, 2024 Team Status: Inactive Member Role Status Cesar Rojas MD Primary Care Provider Active St art: August 08, 2024 End: August 08, 2024 Keith Handley Jr, MD Emergency Provider Active Start: August 08, 2024 End: August 08, 2024 Team Status: Inactive Member Role Status Cesar Rojas MD Primary Care Provider Active St art: August 17, 2024 End: August 17, 2024 Keith Handley Jr, MD Emergency Provider Active Start: August 17, 2024 End: August 17, 2024 Team Status: Inactive Member Role Status Cesar Rojas MD Primary Care Provider Active St art: August 21, 2024 End: August 21, 2024 Arpan Ross PA-C Emergency Provider Active Start: August 21, 2024 End: August 21, 2024 Team Status: Inactive Member Role Status Cesar Rojas MD Primary Care Provider Active St art: August 28, 2024 End: August 28, 2024 Jessica Clark APRN Emergency Provider Active Start: August 28, 2024 End: August 28, 2024 Team Status: Inactive Member Role Status Cesar Rojas MD Primary Care Provider Active St art: August 29, 2024 End: August 29, 2024 Jessica Clark APRN Emergency Provider Active Start: August 29, 2024 End: August 29, 2024 Team Status: Inactive Member Role Status Cesar Rojas MD Primary Care Provider Active St art: September 03, 2024 End: September 03, 2024 Nestor Weeks DO Emergency Provider Active St art: September 03, 2024 End: September 03, 2024 Team Status: Inactive Member Role Status Cesar Rojas MD Primary Care Provider Active St art: September 06, 2024 End: September 06, 2024 Jessica Clark APRN Emergency Provider Active Start: September 06, 2024 End: September 06, 2024 Team Status: Inactive Member Role Status Cesar Rojas MD Primary Care Provider Active St art: September 13, 2024 End: September 13, 2024 Nestor Weeks DO Emergency Provider Active St art: September 13, 2024 End: September 13, 2024 Team Status: Active Member Role Status Cesar Rojas MD Primary Care Provider Active St art: June 10, 2024 Augustina Grace PA-C Attending Provider , Referring Provider Active Start: June 10, 2024 Team Status: Inactive Member Role Status Cesar Rojas MD Primary Care Provider Active St art: June 13, 2024 End: June 13, 2024 Erwin Ragsdale DO Emergency Provider Active Sta rt: June 13, 2024 End: June 13, 2024 Team Status: Inactive Member Role Status Cesar Rojas MD Primary Care Provider Active St art: December 13, 2023 End: December 13, 2023 Barbara Sandoval MD Emergency Provider Active Start: December 13, 2023 End: December 13, 2023 Team Status: Inactive Member Role Status Cesar Rojas MD Primary Care Provider Active St art: December 26, 2023 End: December 26, 2023 Conrad Torres APRN Emergency Provider Active Start: December 26, 2023 End: December 26, 2023 Team Status: Inactive Member Role Status Cesar Rojas MD Primary Care Provider Active St art: January 01, 2024 End: January 01, 2024 Conrad Torres APRN Emergency Provider Active Start: January 01, 2024 End: January 01, 2024 Team Status: Inactive Member Role Status Cesar Rojas MD Primary Care Provider Active St art: February 25, 2024 End: February 25, 2024 Adelita Gutierres DO Attending Provider Active Start: February 25, 2024 End: February 25, 2024 KALEB Avitia Referring Provider Active S tart: February 25, 2024 End: February 25, 2024 Team Status: Inactive Member Role Status Cesar Rojas MD Primary Care Provider Active St art: March 10, 2024 End: March 10, 2024 Conrad Torres APRN Emergency Provider Active Start: March 10, 2024 End: March 10, 2024 Team Status: Active Member Role Status Cesar Rojas MD Primary Care Provider Active St art: December 04, 2023 Augustina Grace PA-C Attending Provider , Referring Provider Active Start: December 04, 2023 Team Status: Inactive Member Role Status Cesar Rojas MD Primary Care Provider Active St art: May 25, 2023 End: May 25, 2023 Donato Trevino DO Emergency Provider Active Start: May 25, 2023 End: May 25, 2023 Team Status: Active Member Role Status Cesar Rojas MD Primary Care Provider Active St art: June 05, 2023 Augustina Grace PA-C Attending Provider Active Start: June 05, 2023 Team Status: Inactive Member Role Status Cesar Rojas MD Primary Care Provider Active St art: June 23, 2023 End: June 23, 2023 Conrad Torres APRN Emergency Provider Active Start: June 23, 2023 End: June 23, 2023 Team Status: Inactive Member Role Status Cesar Rojas MD Primary Care Provider Active St art: June 27, 2023 End: June 27, 2023 Conrad Torres APRN Emergency Provider Active Start: June 27, 2023 End: June 27, 2023 Team Status: Inactive Member Role Status Cesar Rojas MD Primary Care Provider Active St art: June 28, 2023 End: June 28, 2023 Nestor Weeks DO Emergency Provider Active St art: June 28, 2023 End: June 28, 2023 Team Status: Inactive Member Role Status Cesar Rojas MD Primary Care Provider Active St art: June 28, 2023 End: June 28, 2023 Conrad Torres APRN Emergency Provider Active Start: June 28, 2023 End: June 28, 2023 Team Status: Inactive Member Role Status Cesar Rojas MD Primary Care Provider Active St art: July 09, 2023 End: July 09, 2023 Jeremiah Zavaleta DO Emergency Provider Active Sta rt: July 09, 2023 End: July 09, 2023 Team Status: Inactive Member Role Status Cesar Rojas MD Primary Care Provider Active St art: July 15, 2023 End: July 15, 2023 Nicole Ely [facility] Emergency Provider Active Start: July 15, 2023 End: July 15, 2023 Team Status: Inactive Member Role Status Cesar Rojas MD Primary Care Provider Active St art: July 18, 2023 End: July 18, 2023 Nicole Ely [facility] Emergency Provider Active Start: July 18, 2023 End: July 18, 2023 Team Status: Inactive Member Role Status Cesar Rojas MD Primary Care Provider Active St art: July 23, 2023 End: July 23, 2023 Nicole Ely [facility] Emergency Provider Active Start: July 23, 2023 End: July 23, 2023 Team Status: Inactive Member Role Status Cesar Rojas MD Primary Care Provider Active St art: July 24, 2023 End: July 24, 2023 Aiden Mary MD Emergency Provider Active Star t: July 24, 2023 End: July 24, 2023 Team Status: Inactive Member Role Status Cesar Rojas MD Primary Care Provider Active St art: August 11, 2023 End: August 11, 2023 Jeremiah Zavaleta DO Emergency Provider Active Sta rt: August 11, 2023 End: August 11, 2023 Team Status: Inactive Member Role Status Cesar Rojas MD Primary Care Provider Active St art: August 14, 2023 End: August 14, 2023 Conrad Torres APRN Emergency Provider Active Start: August 14, 2023 End: August 14, 2023 Team Status: Inactive Member Role Status Cesar Rojas MD Primary Care Provider Active St art: August 22, 2023 End: August 22, 2023 Conrad Torres APRN Emergency Provider Active Start: August 22, 2023 End: August 22, 2023 Team Status: Active Member Role Status Cesar Rojas MD Primary Care Provider Active Augustina Grace PA-C Attending Provider Active Team Status: Inactive Member Role Status Cesar Rojas MD Primary Care Provider Active Donato Trevino DO Emergency Provider Active Team Status: Inactive Member Role Status Cesar Rojas MD Primary Care Provider Active Conrad Torres APRN Emergency Provider Active Team Status: Inactive Member Role Status Cesar Rojas MD Primary Care Provider Active Jessica Clark APRN Emergency Provider Active Team Status: Inactive Member Role Status Cesar Rojas MD Primary Care Provider Active Nestor Weeks DO Emergency Provider Active Team Status: Inactive Member Role Status Cesar Rojas MD Primary Care Provider Active Aiden Mary MD Emergency Provider Active Team Status: Inactive Member Role Status Cesar Rojas MD Primary Care Provider Active Provider Temp Emergency Provider Active Team Status: Inactive Member Role Status Cesar Rojas MD Primary Care Provider Active Nicole Ely [facility]- Emergency Provider Active Team Status: Inactive Member Role Status Cesar Rojas MD Primary Care Provider Active Keith Handley Jr, MD Emergency Provider Active Team Status: Inactive Member Role Status Cesar Rojas MD Primary Care Provider Active Srikanth Hernandez RN MSN ANP-C Attending Provider Act dinesh Grace PA-C Referring Provider Active Team Status: Inactive Member Role Status Cesar Rojas MD Primary Care Provider Active Arpan Ross PA-C Emergency Provider Active Team Status: Inactive Member Role Status Cesar Rojas MD Primary Care Provider Active Augustina Grace PA-C Attending Provider Active Team Status: Inactive Member Role Status Cesar Rojas MD Primary Care Provider Active Erwin Ragsdale DO Emergency Provider Active Team Status: Inactive Member Role Status Cesar Rojas MD Primary Care Provider Active RICKY Irizarry-C Emergency Provider Active Team Status: Active Member Role Status Cesar Rojas MD Primary Care Provider Active Donato Trevino DO Emergency Provider Active Naif Pickett MD Admit Provider, Attending Pro vider Active Team Status: Inactive Member Role Status Cesar Rojas MD Primary Care Provider Active Donato Trevino DO Emergency Provider Active Naif Pickett MD Admit Provider Active Dilip Garrison DO Other Provider Active Aleisha Foster MD Attending Provider Active Team Status: Inactive Member Role Status Cesar Rojas MD Primary Care Provider Active Barbara Sandoval MD Emergency Provider Active Team Status: Inactive Member Role Status Cesar Rojas MD Primary Care Provider Active Stanislaw Wiggins MD RES Active Keith Handley Jr, MD Emergency Provider Active Team Status: Active Member Role Status Cesar Mary MD Emergency Provider Active Nisa Rojas MD Primary Care Provider Active Eh Rock MD Admit Provider, Attending Provide r Active Team Status: Inactive Member Role Status Cesar Mary MD Emergency Provider Active Nisa Rojas MD Primary Care Provider Active Eh Rock MD Admit Provider, Attending Provide r Active Adelita Gutierres DO Other Provider Active Team Status: Inactive Member Role Status Cesar Rojas MD Primary Care Provider Active Jeremiah Zavaleta DO Emergency Provider Active Seam Feller Relationship Specialty Start Date End Nisa Ricardo MD [address] [place] [address] PCP - Humana 08/04/20 Nisa Rojas MD [address] [place] [address] PCP - General Internal Medicine 12/31/22 Team Status: Inactive Member Role Status Cesar Rojas MD Primary Care Provider Active St art: September 10, 2023 End: September 10, 2023 Donato Trevino , DO Emergency Provider Active Start: September 10, 2023 End: September 10, 2023 Team Status: Inactive Member Role Status Cesar Rojas MD Primary Care Provider Active St art: September 13, 2023 End: September 13, 2023 Nicole Ely , [facility] Emergency Provider Active Start: September 13, 2023 End: September 13, 2023 Seam Feller Relationship Specialty Start Date End Date Nisa Rojas MD [address] [place] [address] PCP - Humana 08/04/20 Nisa Rojas MD [address] [place] [address] PCP - General Internal Medicine 12/31/22 Team Status: Inactive Member Role Status Cesar Rojas MD Primary Care Provider Active St art: October 04, 2023 End: October 04, 2023 Nestor Weeks DO Emergency Provider Active St art: October 04, 2023 End: October 04, 2023 Team Status: Inactive Member Role Status Cesar Rojas MD Primary Care Provider Active St art: November 24, 2023 End: November 24, 2023 Nestor Weeks DO Emergency Provider Active St art: November 24, 2023 End: November 24, 2023 Team Status: Inactive Member Role Status Cesar Rojas MD Primary Care Provider Active St art: March 11, 2024 End: March 11, 2024 Jeremiah Zavaleta DO Emergency Provider Active Sta rt: March 11, 2024 End: March 11, 2024 Team Status: Inactive Member Role Status Cesar Rojas MD Primary Care Provider Active St art: March 15, 2024 End: March 15, 2024 Nestor Weeks DO Emergency Provider Active St art: March 15, 2024 End: March 15, 2024 Team Status: Inactive Member Role Status Cesar Weeks DO Emergency Provider Active St art: March 17, 2024 End: March 17, 2024 Nisa Rojas MD Primary Care Provider Active St art: March 17, 2024 End: March 17, 2024 Team Status: Inactive Member Role Status Cesar Rojas MD Primary Care Provider Active St art: April 01, 2024 End: April 01, 2024 Nestor Weeks DO Emergency Provider Active St art: April 01, 2024 End: April 01, 2024 Team Status: Inactive Member Role Status Cesar Rojas MD Primary Care Provider Active St art: April 06, 2024 End: April 06, 2024 Nestor Weeks DO Emergency Provider Active St art: April 06, 2024 End: April 06, 2024 Team Status: Inactive Member Role Status Cesar Trevino DO Emergency Provider Active Start: April 16, 2024 End: April 16, 2024 Nisa Rojas MD Primary Care Provider Active St art: April 16, 2024 End: April 16, 2024 Team Status: Inactive Member Role Status Cesar Rojas MD Primary Care Provider Active St art: April 17, 2024 End: April 17, 2024 Nestor Weeks DO Emergency Provider Active St art: April 17, 2024 End: April 17, 2024 Team Status: Inactive Member Role Status Cesar Rojas MD Primary Care Provider Active St art: April 19, 2024 End: April 19, 2024 Nestor Weeks DO Emergency Provider Active St art: April 19, 2024 End: April 19, 2024 Team Status: Inactive Member Role Status Cesar Rojas MD Primary Care Provider Active St art: April 29, 2024 End: April 29, 2024 Gabriel Berman DO Emergency Provider Active Start: April 29, 2024 End: April 29, 2024 Team Status: Inactive Member Role Status Cesar Rojas MD Primary Care Provider Active St art: May 04, 2024 End: May 04, 2024 Arpan Ross PA-C Emergency Provider Active Start: May 04, 2024 End: May 04, 2024 Seam Feller Relationship Specialty Start Date End Date Nisa Rojas MD [address] [place] [address] PCP - Humana 08/04/19 Nisa Rojas MD [address] [place] [address] PCP - General Internal Medicine 12/31/22 Aiden Linares DPM [address] [place] [address] Referring Physician Podiatry 10/30/23 Adelita Gutierres DO [address] [place] [address] Referring Physician Neurology 02/24/24 Team Status: Inactive Member Role Status Dates Nisa Rojas MD Primary Care Provider Active St art: May 05, 2024 End: May 05, 2024 Nestor Weeks DO Emergency Provider Active St art: May 05, 2024 End: May 05, 2024 Seam Feller Relationship Specialty Start Date End Date Nisa Rojas MD [address] [place] [address] PCP - Humana 08/04/19 Nisa Rojas MD [address] [place] [address] PCP - General Internal Medicine 12/31/22 Aiden Linares DPM [address] [place] [address] Referring Physician Podiatry 10/30/23 Adelita Gutierres DO [address] [facility] [address] [place] [address] Referring Physician Neurology 02/24/24 Seam Feller Relationship Specialty Start Date End Date Nisa Rojas MD [address] [facility] [address] [place] [address] PCP - Humana 08/04/19 Nisa Rojas MD [address] [place] [address] PCP - General Internal Medicine 12/31/22 Aiden Linares DPM [address] [facility] [address] [place] [address] Referring Physician Podiatry 10/30/23 Adelita Gutierres DO [address] [facility] [address] [place] [address] Referring Physician Neurology 02/24/24 Seam Feller Relationship Specialty Start Date End Date Nisa Rojas MD [address] [facility] [address] [place] [address] PCP - General Internal Medicine 09/01/19 Team Status: Inactive Member Role Status Dates Nisa Rojas MD Primary Care Provider Active St art: May 15, 2024 End: May 15, 2024 Jessica Clark APRN Emergency Provider Active Start: May 15, 2024 End: May 15, 2024 Seam Feller Relationship Specialty Start Date End Date Nisa Rojas MD [address] [facility] [address] [place] [address] PCP - Humana 08/04/19 Nisa Rojas MD [address] [place] [address] PCP - General Internal Medicine 12/31/22 Aiden Linares, EMILYM [address] [place] [address] Referring Physician Podiatry 10/30/23 Adelita Gutierres DO [address] [facility] [address] [place] [address] Referring Physician Neurology 02/24/24 Team Status: Inactive Member Role Status Dates Nisa Rojas MD Primary Care Provide r, Attending Provider Active Start: May 21, 2024 End: May 21, 2024 Seam Feller Relationship Specialty Start Date End Date Nisa Rojas MD [address] [place] [address] PCP - Humana 08/04/19 Nisa Rojas MD [address] [place] [address] PCP - General Internal Medicine 12/31/22 Aiden Linares, IRAJ [address] [place] [address] Referring Physician Podiatry 10/30/23 Adelita Gutierres DO [address] [facility] [address] [place] [address] Referring Physician Neurology 02/24/24 Seam Feller Relationship Specialty Start Date End Date Nisa Rojas MD [address] [place] [address] PCP - Humana 08/04/19 Nisa Rojas MD [address] [place] [address] PCP - General Internal Medicine 12/31/22 Aiden Linares DPM [address] [place] [address] Referring Physician Podiatry 10/30/23 Adelita Gutierres DO [address] [place] [address] Referring Physician Neurology 02/24/24 Seam Feller Relationship Specialty Start Date End Date Nisa Rojas MD [address] [place] [address] PCP - Humana 08/04/19 Nisa Rojas MD [address] [place] [address] PCP - General Internal Medicine 12/31/22 Aiden Linares DPM [address] [place] [address] Referring Physician Podiatry 10/30/23 Adelita Gutierres DO [address] [place] [address] Referring Physician Neurology 02/24/24 Team Status: Inactive Member Role Status Dates Nisa Rojas MD Primary Care Provider Active St art: May 28, 2024 End: May 28, 2024 Nestor Weeks DO Emergency Provider Active art: May 28, 2024 End: May 28, 2024 Seam Feller Relationship Specialty Start Date End Date Nisa Rojas MD [address] [place] [address] PCP - Humana 08/04/19 Nisa Rojas MD [address] [place] [address] PCP - General Internal Medicine 12/31/22 Aiden Linares DPM [address] [place] [address] Referring Physician Podiatry 10/30/23 Adelita Gutierres DO [address] [facility] [address] [place] [address] Referring Physician Neurology 02/24/24 Team Status: Inactive Member Role Status Dates Nisa Rojas MD Primary Care Provider Active art: May 29, 2024 End: May 29, 2024 Keith Handley Jr, MD Emergency Provider Active Start: May 29, 2024 End: May 29, 2024 Seam Feller Relationship Specialty Start Date End Date Nisa Rojas MD [address] [place] [address] PCP - Humana 08/04/19 Nisa Rojas MD [address] [place] [address] PCP - General Internal Medicine 12/31/22 Aiden Linares DPM [address] [place] [address] Referring Physician Podiatry 10/30/23 Adelita Gutierres DO [address] [facility] [address] [place] [phone] Referring Physician Neurology 02/24/24 Seam Feller Relationship Specialty Start Date End Date Nisa Rojas MD [address] [facility] [address] [place] [address] PCP - Humana 08/04/19 Nisa Rojas MD [address] [place] [address] PCP - General Internal Medicine 12/31/22 Aiden Linares DPM [address] [facility] [address] [place] [address] Referring Physician Podiatry 10/30/23 Adelita Gutierres DO [address] [facility] [address] [place] [address] Referring Physician Neurology 02/24/24 Seam Feller Relationship Specialty Start Date End Date Nisa Rojas MD [address] [facility] [address] [place] [address] PCP - Humana 08/04/19 Nisa Rojas MD [address] [place] [address] PCP - General Internal Medicine 12/31/22 Aiden Linares DPM [address] [facility] [address] [place] [address] Referring Physician Podiatry 10/30/23 Adelita Gutierres DO [address] [address] [place] [address] Referring Physician Neurology 02/24/24 Seam Feller Relationship Specialty Start Date End Date Nisa Rojas MD [address] [place] [address] PCP - Humana 08/04/19 Nisa Rojas MD [address] [place] [address] PCP - General Internal Medicine 12/31/22 Aiden Linares DPM [address] [facility] [address] [place] [address] Referring Physician Podiatry 10/30/23 Adelita Gutierres DO [address] [place] [address] [place] [id number] Referring Physician Neurology 02/24/24 Seam Feller Relationship Specialty Start Date End Date Nisa Rojas MD [address] [facility] [address] [place] [address] PCP - Humana 08/04/19 Nisa Rojas MD [address] [address] PCP - General Internal Medicine 12/31/22 Aiden Linares DPM [address] [facility] [address] [place] [address] Referring Physician Podiatry 10/30/23 Adelita Gutierres DO [address] [facility] [address] [place] [address] Referring Physician Neurology 02/24/24 Seam Feller Relationship Specialty Start Date End Date Nisa Rojas MD [address] [facility] [address] [place] [address] PCP - Humana 08/04/19 Nisa Rojas MD [address] [place] [address] PCP - General Internal Medicine 12/31/22 Aiden Linares DPM [address] [facility] [address] [place] [address] Referring Physician Podiatry 10/30/23 Adelita Gutierres DO [address] [place] [address] Referring Physician Neurology 02/24/24 Seam Feller Relationship Specialty Start Date End Date Nisa Rojas MD [address] [facility] [address] [place] [address] PCP - Humana 08/04/19 Nisa Rojas MD [address] [place] [address] PCP - General Internal Medicine 12/31/22 Aiden Linares DPM [address] [facility] [address] [place] [address] Referring Physician Podiatry 10/30/23 Adelita Gutierres DO [address] [facility] [address] [place] [address] Referring Physician Neurology 02/24/24 Seam Feller Relationship Specialty Start Date End Date Nisa Rojas MD [address] [place] [address] PCP - Humana 08/04/19 Nisa Rojas MD [address] [place] [address] PCP - General Internal Medicine 12/31/22 Aiden Linares DPM [address] [place] [address] Referring Physician Podiatry 10/30/23 Adelita Gutierres DO [address] [facility] [address] [place] [address] Referring Physician Neurology 02/24/24 Team Status: Inactive Member Role Status Dates Nisa Rojas MD Primary Care Provider Active St art: July 16, 2024 End: July 16, 2024 Yodit Jolly APRN-[employer]ER-C Attending Provider Active Start: July 16, 2024 End: July 16, 2024 Seam Feller Relationship Specialty Start Date End Date Nisa Rojas MD [address] [place] [address] PCP - Humana 08/04/19 Nisa Rojas MD [address] [place] [address] PCP - General Internal Medicine 12/31/22 Aiden Linares DPM [address] [place] [address] Referring Physician Podiatry 10/30/23 Adelita Gutierres DO [address] [facility] [address] [place] [address] Referring Physician Neurology 02/24/24 Seam Feller Relationship Specialty Start Date End Date Nisa Rojas MD [address] [place] [address] PCP - Humana 08/04/19 Nisa Rojas MD [address] [place] [address] PCP - General Internal Medicine 12/31/22 Aiden Linares DPM [address] [facility] [address] [place] [address] Referring Physician Podiatry 10/30/23 Adelita Gutierres DO [address] [facility] [address] [place] [address] Referring Physician Neurology 02/24/24 Seam Feller Relationship Specialty Start Date End Date Nisa Rojas MD [address] [place] [address] PCP - Humana 08/04/19 Nisa Rojas MD [address] [place] [address] PCP - General Internal Medicine 12/31/22 Aiden Linares DPM [address] [facility] [address] [place] [address] Referring Physician Podiatry 10/30/23 Adelita Gutierres DO [address] [facility] [address] [place] [address] Referring Physician Neurology 02/24/24 Seam Feller Relationship Specialty Start Date End Date Nisa Rojas MD [address] [place] [address] PCP - Humana 08/04/19 Nisa Rojas MD [address] [place] [address] PCP - General Internal Medicine 12/31/22 Aiden Linares DPM [address] [facility] [address] [place] [address] Referring Physician Podiatry 10/30/23 Adelita Gutierres DO [address] [facility] [address] [place] [address] Referring Physician Neurology 02/24/24 Seam Feller Relationship Specialty Start Date End Date Nisa Rojas MD [address] [place] [address] PCP - Humana 08/04/19 Nisa Rojas MD [address] [place] [address] PCP - General Internal Medicine 12/31/22 Aiden Linares DPM [address] [place] [address] Referring Physician Podiatry 10/30/23 Adelita Gutierres DO [address] [facility] [address] [place] [address] Referring Physician Neurology 02/24/24 Team Status: Inactive Member Role Status Dates Nisa Rojas MD Primary Care Provider Active St art: July 20, 2024 End: July 20, 2024 Cely Siu MD Attending Provider Active Start: July 20, 2024 End: July 20, 2024 Team Status: Inactive Member Role Status Dates Nisa Rojas MD Primary Care Provider Active St art: October 10, 2024 End: October 10, 2024 Aiden Mary MD Emergency Provider Active Star t: October 10, 2024 End: October 10, 2024 Team Status: Inactive Member Role Status Dates Nisa Rojas MD Primary Care Provide r, Attending Provider Active Start: October 13, 2024 End: October 13, 2024 Seam Feller Relationship Specialty Start Date End Date Nisa Rojas MD [address] [place] [address] PCP - Humana 08/04/19 Nisa Rojas MD [address] [place] [address] PCP - General Internal Medicine 12/31/22 Aiden Linares DPM [address] [place] [address] Referring Physician Podiatry 10/30/23 Adelita Gutierres DO [address] [facility] [address] [place] [address] Referring Physician Neurology 02/24/24 Team Status: Inactive Member Role Status Cesar Rojas MD Primary Care Provider Active St art: November 03, 2024 End: November 03, 2024 Keith Handley Jr, MD Emergency Provider Active Start: November 03, 2024 End: November 03, 2024 Team Status: Active Member Role Status Cesar Rojas MD Primary Care Provide r, Attending Provider Active Start: November 04, 2024 Team Status: Inactive Member Role Status Cesar Rojas MD Primary Care Provider Active St art: November 04, 2024 End: November 04, 2024 Arpan Ross PA-C Emergency Provider Active Start: November 04, 2024 End: November 04, 2024 Team Status: Inactive Member Role Status Cesar Rojas MD Primary Care Provide r, Attending Provider Active Start: November 04, 2024 End: November 04, 2024 Team Status: Inactive Member Role Status Cesar Rojas MD Primary Care Provider Active St art: November 05, 2024 End: November 05, 2024 Keith Handley Jr, MD Emergency Provider Active Start: November 05, 2024 End: November 05, 2024 Team Status: Inactive Member Role Status Cesar Rojas MD Primary Care Provider Active St art: November 09, 2024 End: November 09, 2024 Aiden Mary MD Emergency Provider Active Star t: November 09, 2024 End: November 09, 2024 Team Status: Inactive Member Role Status Cesar Rojas MD Primary Care Provider Active St art: November 13, 2024 End: November 13, 2024 Barbara Sandoval MD Emergency Provider Active Start: November 13, 2024 End: November 13, 2024 Team Status: Inactive Member Role Status Cesar Rojas MD Primary Care Provider Active St art: November 14, 2024 End: November 14, 2024 Conrad Torres APRN Emergency Provider Active Start: November 14, 2024 End: November 14, 2024 Team Status: Inactive Member Role Status Cesar Rojas MD Primary Care Provider Active St art: November 17, 2024 End: November 17, 2024 Aiden Mary MD Emergency Provider Active Star t: November 17, 2024 End: November 17, 2024 Team Status: Inactive Member Role Status Cesar Rojas MD Primary Care Provider Active St art: November 18, 2024 End: November 19, 2024 Nestor Weeks DO Emergency Provider Active St art: November 18, 2024 End: November 19, 2024 Team Status: Inactive Member Role Status Cesar Rojas MD Primary Care Provider Active St art: November 20, 2024 End: November 20, 2024 Jeremiah Zavaleta DO Emergency Provider Active Sta rt: November 20, 2024 End: November 20, 2024 Team Status: Inactive Member Role Status Cesar Rojas MD Primary Care Provider Active St art: November 21, 2024 End: November 21, 2024 Clayton Garber PA-C Emergency Provider Active Start: November 21, 2024 End: November 21, 2024 Team Status: Inactive Member Role Status Cesar Rojas MD Primary Care Provider Active St art: November 21, 2024 End: November 21, 2024 Malcom Yañez MD Emergency Provider Active Sta rt: November 21, 2024 End: November 21, 2024 Team Status: Inactive Member Role Status Cesar Rojas MD Primary Care Provider Active St art: November 24, 2024 End: November 24, 2024 Clayton Garber PA-C Emergency Provider Active Start: November 24, 2024 End: November 24, 2024 Team Status: Inactive Member Role Status Cesar Rojas MD Primary Care Provider Active St art: November 24, 2024 End: November 24, 2024 Malcom Yañez MD Emergency Provider Active Sta rt: November 24, 2024 End: November 24, 2024 Team Status: Inactive Member Role Status Cesar Rojas MD Primary Care Provider Active St art: November 27, 2024 End: November 27, 2024 Anny Baez DO Emergency Provider Active Sta rt: November 27, 2024 End: November 27, 2024 Team Status: Inactive Member Role Status Cesar Rojas MD Primary Care Provider Active St art: November 27, 2024 End: November 27, 2024 Conrad Torres APRN Emergency Provider Active Start: November 27, 2024 End: November 27, 2024 Team Status: Inactive Member Role Status Cesar Rojas MD Primary Care Provider Active St art: November 28, 2024 End: November 28, 2024 Yisel Yañez APRN Emergency Provider Active Start: November 28, 2024 End: November 28, 2024 Seam Feller Relationship Specialty Start Date End Nisa Ricardo MD [address] [place] [address] PCP - Humana 08/04/19 Nisa Rojas MD [address] [place] [address] PCP - General Internal Medicine 12/31/22 Aiden Linares DPM [address] [place] [address] Referring Physician Podiatry 10/30/23 Adelita Gutierres DO [address] [facility] [address] [place] [phone] Referring Physician Neurology 02/24/24 Team Status: Inactive Member Role Status Cesar Rojas MD Primary Care Provide r, Attending Provider Active Start: November 29, 2024 End: November 29, 2024 Team Status: Inactive Member Role Status Cesar Rojas MD Primary Care Provider Active St art: November 30, 2024 End: November 30, 2024 Nestor Weeks DO Emergency Provider Active St art: November 30, 2024 End: November 30, 2024 Seam Feller Relationship Specialty Start Date End Nisa Rojas MD [address] [place] [address] PCP - Humana 08/04/19 Nisa Rojas MD [address] [place] [id number] PCP - General Internal Medicine 12/31/22 Aiden Linares DPM [address] [place] [address] Referring Physician Podiatry 10/30/23 Adelita Gutierres DO [address] [facility] [place] [phone] Referring Physician Neurology 02/24/24 Team Status: Inactive Member Role Status Cesar Rojas MD Primary Care Provider Active St art: December 02, 2024 End: December 02, 2024 Gabriel Berman DO Emergency Provider Active Start: December 02, 2024 End: December 02, 2024 Team Status: Inactive Member Role Status Cesar Rojas MD Primary Care Provider Active St art: December 05, 2024 End: December 05, 2024 Eve Shelton APRN Emergency Provider Active S tart: December 05, 2024 End: December 05, 2024 Team Status: Inactive Member Role Status Cesar Rojas MD Primary Care Provider Active St art: December 07, 2024 End: December 07, 2024 Conrad Torres APRN Emergency Provider Active Start: December 07, 2024 End: December 07, 2024 Team Status: Inactive Member Role Status Cesar Rojas MD Primary Care Provider Active St art: December 08, 2024 End: December 08, 2024 Eve Shelton APRN Emergency Provider Active S tart: December 08, 2024 End: December 08, 2024 Team Status: Active Member Role Status Cesar Rojas MD Primary Care Provider Active St art: December 09, 2024 Augustina Grace PA-C Attending Provider , Referring Provider Active Start: December 09, 2024 Team Status: Inactive Member Role Status Cesar Rojas MD Primary Care Provider Active St art: December 09, 2024 End: December 09, 2024 Gabriel Berman DO Emergency Provider Active Start: December 09, 2024 End: December 09, 2024 Seam Feller Relationship Specialty Start Date End Date Nisa Rojas MD [address] [facility] [address] [place] [address] PCP - Humana 08/04/19 Nisa Rojas MD [address] [place] [phone] PCP - General Internal Medicine 12/31/22 Aiden Linares DPM [address] [facility] [address] [place] [address] Referring Physician Podiatry 10/30/23 Adelita Gutierres DO [address] [facility] [address] [place] [phone] Referring Physician Neurology 02/24/24 Team Status: Inactive Member Role Status Cesar Rojas MD Primary Care Provider Active St art: December 16, 2024 End: December 16, 2024 Nestor Weeks DO Emergency Provider Active St art: December 16, 2024 End: December 16, 2024 Team Status: Inactive Member Role Status Cesar Rojas MD Primary Care Provider Active St art: December 17, 2024 End: December 17, 2024 Clayton Garber PA-C Emergency Provider Active Start: December 17, 2024 End: December 17, 2024 Team Status: Inactive Member Role Status Cesar Rojas MD Primary Care Provider Active St art: December 18, 2024 End: December 19, 2024 Keith Handley Jr, MD Emergency Provider Active Start: December 18, 2024 End: December 19, 2024 Team Status: Inactive Member Role Status Cesar Rojas MD Primary Care Provider Active St art: December 19, 2024 End: December 19, 2024 Jessica Clark APRN Emergency Provider Active Start: December 19, 2024 End: December 19, 2024 Team Status: Inactive Member Role Status Cesar Rojas MD Primary Care Provider Active St art: December 20, 2024 End: December 20, 2024 Conrad Torres APRN Emergency Provider Active Start: December 20, 2024 End: December 20, 2024 Team Status: Inactive Member Role Status Cesar Rojas MD Primary Care Provider Active St art: December 21, 2024 End: December 21, 2024 Conrad Torres APRN Emergency Provider Active Start: December 21, 2024 End: December 21, 2024 Team Status: Inactive Member Role Status Cesar Rojas MD Primary Care Provider Active St art: December 21, 2024 End: December 21, 2024 Arpan Ross PA-C Emergency Provider Active Start: December 21, 2024 End: December 21, 2024 Team Status: Inactive Member Role Status Cesar Rojas MD Primary Care Provider Active St art: December 22, 2024 End: December 22, 2024 Clayton Garber PA-C Emergency Provider Active Start: December 22, 2024 End: December 22, 2024 Team Status: Active Member Role Status Cesar Rojas MD Primary Care Provider Active St art: December 23, 2024 Augustina Grace PA-C Attending Provider , Referring Provider Active Start: December 23, 2024 Team Status: Inactive Member Role Status Cesar Rojas MD Primary Care Provider Active St art: December 23, 2024 End: December 24, 2024 Nestor Weeks DO Emergency Provider Active St art: December 23, 2024 End: December 24, 2024 Team Status: Inactive Member Role Status Cesar Rojas MD Primary Care Provider Active St art: December 24, 2024 End: December 24, 2024 Conrad Torres APRN Emergency Provider Active Start: December 24, 2024 End: December 24, 2024 Team Status: Inactive Member Role Status Cesar Rojas MD Primary Care Provider Active St art: December 25, 2024 End: December 25, 2024 Arpan Ross PA-C Emergency Provider Active Start: December 25, 2024 End: December 25, 2024 Team Status: Inactive Member Role Status Cesar Rojas MD Primary Care Provider Active St art: December 25, 2024 End: December 26, 2024 Nestor Weeks DO Emergency Provider Active St art: December 25, 2024 End: December 26, 2024 Team Status: Inactive Member Role Status Cesar Rojas MD Primary Care Provider Active St art: December 26, 2024 End: December 26, 2024 Conrad Torres APRN Emergency Provider Active Start: December 26, 2024 End: December 26, 2024 Team Status: Inactive Member Role Status Cesar Rojas MD Primary Care Provider Active St art: December 26, 2024 End: December 27, 2024 Nestor Weeks DO Emergency Provider Active St art: December 26, 2024 End: December 27, 2024 Team Status: Inactive Member Role Status Cesar Rojas MD Primary Care Provider Active St art: December 27, 2024 End: December 27, 2024 Nestor Weeks DO Emergency Provider Active St art: December 27, 2024 End: December 27, 2024 Team Status: Inactive Member Role Status Cesar Rojas MD Primary Care Provider Active St art: December 27, 2024 End: December 28, 2024 Nestor Weeks DO Emergency Provider Active St art: December 27, 2024 End: December 28, 2024 Team Status: Inactive Member Role Status Cesar Rojas MD Primary Care Provider Active St art: December 28, 2024 End: December 28, 2024 Nestor Weeks DO Emergency Provider Active St art: December 28, 2024 End: December 28, 2024 Team Status: Inactive Member Role Status Cesar Rojas MD Primary Care Provider Active St art: December 29, 2024 End: December 29, 2024 Aiden Mary MD Emergency Provider Active Star t: December 29, 2024 End: December 29, 2024 Team Status: Inactive Member Role Status Cesar Rojas MD Primary Care Provider Active St art: December 29, 2024 End: December 30, 2024 Nestor Weeks DO Emergency Provider Active St art: December 29, 2024 End: December 30, 2024 Team Status: Inactive Member Role Status Cesar Rojas MD Primary Care Provider Active St art: December 30, 2024 End: December 30, 2024 Arpan Ross PA-C Emergency Provider Active Start: December 30, 2024 End: December 30, 2024 Seam Feller Relationship Specialty Start Date End Nisa Rojas MD [address] [address] PCP - Humana 08/04/19 Nisa Rojas MD [address] [place] [address] PCP - General Internal Medicine 12/31/22 Aiden Linares DPM [address] [place] [address] Referring Physician Podiatry 10/30/23 Adelita Gutierres DO [address] [facility] [address] [place] [address] Referring Physician Neurology 02/24/24 Team Status: Inactive Member Role Status Dates Aiden Mary MD Emergency Provider Active Star t: January 01, 2025 End: January 01, 2025 Nisa Rojas MD Primary Care Provider Active St art: January 01, 2025 End: January 01, 2025 Seam Feller Relationship Specialty Start Date End Date Nisa Rojas MD [address] [place] [address] PCP - Humana 08/04/19 Nisa Rojas MD [address] [place] [address] PCP - General Internal Medicine 12/31/22 Aiden Linares DPM [address] [place] [address] Referring Physician Podiatry 10/30/23 Adelita Gutierres DO [address] [facility] [address] [place] [address] Referring Physician Neurology 02/24/24 Goals (unrecognized section and content) Goals may be documented in a n alternate section Source Comments (unrecognize d section and content) In the event this informatio n is protected by the Federal Confidentiality of Alcohol and Drug Abuse Patient Records regulations: The Federal rules restrict any use of the information to criminally investigate or prosecute any alcohol or drug abuse patient.[facility] FOR RECORDS PERTAINING TO PATIENTS WHO ARE OR HAVE BEEN ENROLLED IN A CHEMICAL DEPENDENCY/SUBSTANCEABUSE PROGRAM, SOME INFORMATION MAY BE OMITTED. This clinical summary was aggregated from multiple sources. Caution should be exercised in using it in the provision of clinical care. This summary normalizes information from multiple sources, and as a consequence, information in this document may materially change the coding, format and clinical context of patient data. In addition, data may be omitted in some cases. CLINICAL DECISIONS SHOULD BE BASED ON THE PRIMARY CLINICAL RECORDS. [facility] [employer] [facility]. provides no warranty or guarantee of the accuracy or completeness of information in this document.
--- NOTE | 2025-01-01 19:25 | ED.GENADUL1 ---
HPI HPI - General Adult General Chief complaint: Extremity Problem, Nontraumatic Stated complaint: WEAKNESS Time Seen by Provider: 01/01/25 19:00 Source: patient Mode of arrival: Wheelchair Limitations: no limitations History of Present Illness HPI narrative: cc - flare up of chronic neck and back pain Patient is well-known to me and to this ED. He suffers from chronic pain and oftentimes has flareups in which he requires injection of pain medicine for temporary relief. He told me that his neck pain became a bit worse about 48 hours ago. He says that when he tries to get up and walk it hurts throughout his low back. The pain does not radiate into the legs but he feels as if his legs are weaker than normal. He says he is feeling like he is having trouble getting up standing and walking. He went to [facility] in [place] and was evaluated in the ED yesterday and had CT scanning of the head and cervical spine, which were unremarkable, x-ray of the chest and he said they imaged his back as well. He said that the physician there told him that nothing worrisome was going on and that there was nothing else they could do for him so they discharged him home. He came to [place] for evaluation. No change since symptoms started 48 hours ago. No bowel or bladder incontinence. No bowel or bladder retention. No fever or chills. No abdominal pain or flank pain. No blood in urine or stool. No chest pain or shortness of breath He said that he is not currently seeing a neurologist or neurosurgeon. Related Data Home Medications ?Medication ?Instructions ?Recorded ?Confirmed cyclobenzaprine 10 mg tablet 10 mg PO Q8H PRN muscle spasm 05/21/23 12/28/24 insulin degludec 200 unit/mL (3 100 unit subcut DAILY 05/21/23 12/28/24 mL) subcutaneous pen (Tresiba FlexTouch U-200 insulin) irbesartan 300 mg tablet 300 mg PO DAILY 05/21/23 05/21/23 pregabalin 200 mg capsule 200 mg PO DAILY 05/21/23 05/21/23 rosuvastatin 10 mg tablet 10 mg PO DAILY 05/21/23 05/21/23 amitriptyline 25 mg tablet mg 12/28/24 pregabalin 300 mg capsule mg 12/28/24 Previous Rx's ?Medication ?Instructions ?Recorded methocarbamol 750 mg tablet 750 mg PO TID PRN pain #20 tabs 05/21/23 mupirocin 2 % topical ointment 1 applic topical BID #15 grams 04/01/24 methylprednisolone 4 mg tablets in 4 mg PO DAILY #21 ea 01/01/25 a dose pack (Medrol (Paulie)) nabumetone 750 mg tablet 750 mg PO BID PRN pain #14 tabs 01/01/25 Allergies Allergy/AdvReac Type Severity Reaction Status Date / Time celecoxib (From Celebrex) AdvReac Diarrhea Verified 01/01/25 18:59 Opioid HPI Opioid Management Most Recent Opioid Data: Last Pain Scale 10 Today, 18:59 Last MAR Pain Assessment Today, 19:51 PFSH PFSH Social History Smoking status: Current every day smoker Little interest or pleasure in doing things: not at all Feeling down, depressed, or hopeless: not at all Exam Narrative Exam Narrative: Nurses notes and vital signs reviewed and patient is not hypoxic. afebrile General: Well-appearing and in no apparent distress. Skin: Warm, dry, no pallor noted. No rash. Head: Normocephalic, atraumatic. Neck: Supple, no lymphadenopathy. Tenderness throughout the posterior neck including midline cervical vertebral bodies and bilateral paracervical soft tissue. No meningismus. Eye: Pupils are equal, round and EOMI. No scleral icterus. Ears, Nose, Mouth, and Throat: Oral mucosa is moist Cardiovascular: Regular Rate and Rhythm without murmur, gallop or rub. Respiratory: No accessory muscle use or respiratory distress. Lungs are clear to auscultation, no wheezing, rales or rhonchi Back: Bilateral paralumbar soft tissue tenderness. No midline thoracic or lumbar vertebral tenderness. No CVA tenderness. Musculoskeletal: normal ROM, no calf or popliteal tenderness, no lower extremity edema/swelling GI: Abdomen is soft, non-distended. Normal bowel sounds. No solid or pulsatile masses appreciated. No tenderness to palpation. No rebound, guarding, or rigidity noted. Neurological: A&O x4. No cranial nerve dysfunction observed. No truncal ataxia. Moves all extremities but appears to exert a poor effort. When I check reflexes he has normal movement. Sensation intact. Psychiatric: Cooperative and interactive. Normal mood and affect. Constitutional Vital Signs, click to edit/add: Last Vital Signs Temp 98.6 F 01/01/25 18:59 Pulse 62 01/01/25 18:59 Resp 15 01/01/25 18:59 BP 122/78 01/01/25 18:59 Pulse Ox 97 01/01/25 18:59 O2 Del Method Room Air 01/01/25 18:59 Course Vital Signs Vital signs: Vital Signs Temperature 98.6 F 01/01/25 18:59 Pulse Rate 62 01/01/25 18:59 Respiratory Rate 15 01/01/25 18:59 Blood Pressure 122/78 01/01/25 18:59 Pulse Oximetry 97 01/01/25 18:59 Oxygen Delivery Method Room Air 01/01/25 18:59 Temperature 98.6 F 01/01/25 18:59 Pulse Rate 62 01/01/25 18:59 Respiratory Rate 15 01/01/25 18:59 Blood Pressure 122/78 01/01/25 18:59 Pulse Oximetry 97 01/01/25 18:59 Oxygen Delivery Method Room Air 01/01/25 18:59 Medical Decision Making MDM Narrative Medical decision making narrative: The patient presents with an acute flareup of his chronic underlying condition. He had imaging at [facility] in [place] yesterday that was unremarkable. They did not give him anything for pain, according to the patient. Unfortunately we do not have neurology or neurosurgical coverage. He is already had the same type of imaging which I cannot obtain here. The patient was ordered to receive IM Norflex, IM Solu-Medrol and IM Toradol. He was discharged home with a prescription for Relafen and Medrol Dosepak. I encouraged him to follow-up at one of the [facility] such as [facility] or [facility] if he feels concerned about his worsening pain and/or worsening strength. I informed that we do not have adequate coverage here at [facility] should he develop any serious neurosurgical condition. Discharge Plan Discharge Chief Complaint: Extremity Problem, Nontraumatic Clinical Impression: Neck pain, acute, Chronic neck pain, Radiculopathy with lower extremity symptoms Patient Disposition: Home, Self-Care Time of Disposition Decision: 19:31 Prescriptions / Home Meds: New nabumetone 750 mg tablet 750 mg PO BID PRN (Reason: pain) Qty: 14 0RF methylprednisolone [Medrol (Paulie)] 4 mg tablets,dose pack 4 mg PO DAILY Qty: 21 0RF No Action insulin degludec [Tresiba FlexTouch U-200] 200 unit/mL (3 mL) insulin pen 100 unit SUBCUT DAILY irbesartan 300 mg tablet 300 mg PO DAILY pregabalin 200 mg capsule 200 mg PO DAILY rosuvastatin 10 mg tablet 10 mg PO DAILY cyclobenzaprine 10 mg tablet 10 mg PO Q8H PRN (Reason: muscle spasm) methocarbamol 750 mg tablet 750 mg PO TID PRN (Reason: pain) Qty: 20 0RF mupirocin 2 % ointment 1 applic topical BID Qty: 15 0RF amitriptyline 25 mg tablet pregabalin 300 mg capsule Print Language: Russian Instructions: Chronic Pain (ED), Lumbar Radiculopathy (ED), Acute Neck Pain (ED), Chronic Neck Pain (DC) Referrals: NISA ROJAS [Primary Care Provider, Internal Medicine] - 1 week
[2025-01-01] MEDS: ORPHENADRINE 60 MG/2 ML VIAL IM (19:50)
[2025-01-01] MEDS: METHYLPREDNISOLONE SOD SUCC PF 125 MG/2 ML VIAL IM (19:50)
[2025-01-01] MEDS: KETOROLAC TROMETHAMINE 60 MG/2 ML VIAL IM (19:51)
== END 2025-01-01 20:05 | disposition home or self-care (01) ==
PROVIDERS: Emergency Provider Emergency Medicine; PCP Internal Medicine
DX: M54.2 Cervicalgia (principal); G89.4 Chronic pain syndrome; R53.1 Weakness; M54.16 Radiculopathy, lumbar region; Z79.85 Long-term (current) use of injectable non-insulin antidiabetic drugs; E11.8 Type 2 diabetes mellitus with unspecified complications
CPT/HCPCS: 96372; 99284; J1885; J2360; J2919

== ENCOUNTER 2025-04-18 22:42 | Emergency (ER) | payer MEDICARE, MEDICAID, SELFPAY ==
--- OUTSIDE RECORDS SUMMARY | 2025-03-10 11:30 | XMS_ITS ---
Author Organization [facility] Address [address] [place] [address] Care Team Providers Care Carburetor Repairer Name Role Phone Dr. Erik Arora Primary Care Provider Lizzette Cazares [phone] REASON FOR VISIT FILLING Encounters Encounter Location Date Provider Diagnosis [facility] [address] [place] [address] 03/10/2025 Lizzette Cazares Dental caries on pit and fissure surface penetrating into dentin K02.52 Assessments Encounter Date Diagnosis (ICD Code) Assessment Notes Treatment Notes Treatment Clinical Notes Section Notes 03/10/2025 Dental caries on pit and fissure surface penetrating into dentin (ICD-10 - K02.52) Plan Of Treatment Next Appt Details Provider Name:Lizzettepasha Cazares, 05/12/2025 01:00:00 PM, [address], [place], [address], Provider Name:Lizzette Marcogiselle, 07/27/2025 08:35:00 AM, [address], [place], [address], Provider Name:Briseida Romero, 08/10/2025 02:30:00 PM, [address] [place], [address], Progress Notes * KERLINE CHANGDOB: 1 (54 yo M)Acc No.[id number]:03/10/2025 Patient: KERLINE ZALDIVAR Provider: Arabella Cazares :1970 A ge:54 Y S ex:Male Date:03/10/2025 Address:[address] [place], [place] [id number] Pcp:Dr. Erik Arora Subjective: * Chief Complaints: [...] * Images: * Electronic signature of Gigi Cazaers DMD on 04/18/2025 at 03:03 PM EDT Sign off status: Pending * Provider: Arabella Cazares Date: 0 03/10/2025 Generated for Therese cardenas/Aretha/Augustin on: 0 04/18/2025 03:03 PM EDT
--- OUTSIDE RECORDS SUMMARY | 2025-03-17 07:00 | XMS_ITS ---
Author Organization [facility] Address [address] [place] [address] Care Team Providers Care Lacing Presser Name Role Phone Dr. Eirk Arora Primary Care Provider [phone] Lizzette Cazares [phone] REASON FOR VISIT EXT Encounters Encounter Location Date Provider Diagnosis [facility] [address] [place] [address] 03/17/2025 Lizzette Cazares Plan Of Treatment Next Appt Details Provider Name:Lizzette Cazares, 05/12/2025 01:00:00 PM, [address] [place], [address], Provider Name:Lizzette Cazares, 07/27/2025 08:35:00 AM, [address] [place], [address], Provider Name:Briseida Romero, 08/10/2025 02:30:00 PM, [address] [place], [address], Progress Notes * KERLINE CHANGDOB: [birth year] (54 yo M)Acc No.[id number]:03/17/2025 Patient: KERLINE ZALDIVAR Provider: Arabella Cazares :1970 A ge:54 Y S ex:Male Date:03/17/2025 Address:[address] [place], [place] [id number] Pcp:Dr. Erik Arora Subjective: * Chief Complaints: * 1 . EXT. * Medical History: Objective: * Vitals: Assessment: Plan: * Treatment: * Images: * Electronic signature of Gigi Cazares DMD on 04/18/2025 at 03:03 PM EDT Sign off status: Pending * Provider: Arabella Cazares Date: 0 03/17/2025 Generated for Therese cardenas/Aretha/Augustin on: 0 04/18/2025 03:03 PM EDT
--- OUTSIDE RECORDS SUMMARY | 2025-04-06 13:15 | XMS_ITS | Encounter Summary ---
Author Organization [facility] Address [address] [place] [address] Care Team Providers Care Photography Teacher Name Role Phone Darrius Orr MD Unavailable [phone] Darrius Orr MD Primary Care Provider [phone] Aiden Linares DPM Unavailable [phone] Kai Gutierres DO Unavailable [phone] Reason for Visit * Reason Comments Post-op Follow-up Encounter Details Date Type Department Care Team (Late st Contact Info) Description 04/06/2025 1:15 PM EDT Office Visit [facility] [address] [place] [address] Bina Faye MD [address] [place] [address] Postoperative care for cataract (Primary Dx) Social History Tobacco Use Types Packs/Day Years [...] Date Recorded Patient Health Questionnaire-2 Score 0 02/28/2025 Sex and Gender Information Value Date Recorded Sex Assigned at Not on file Legal Sex Male 6:48 PM EDT Gender Identity Not on file Sexual Orientation Not on file Occupation Industry Job Start Date Job End Date disabled Not on file Not on file Not on file documented as of this encounter Progress Notes * Bina Faye MD - 04/06/2025 1:15 PM EDT Allergies Allergen Reactions Duloxetine Diarrhea Verapamil GI intolerance Duloxetine Hcl Other Reaction(s): intolerance Natalizumab Other Reaction(s): AOF Semaglutide Other Reaction(s): nausea and vomiting Other Reaction(s): Other: See Comments Chills, nightmares, diarrhea Past Medical History: Diagnosis Date Adrenal adenoma, left 12/30/2022 Age-related nuclear cataract, bilateral Bipolar disorder ([facility]) Carpal tunnel syndrome Cervical paraspinal muscle spasm Cholelithiasis Chronic sialoadenitis CKD (chronic kidney disease) stage 2, GFR 60-89 ml/min Essential hypertension SUKHJINDER (generalized anxiety disorder) History of colon polyps Hyperlipidemia Hyperparathyroidism, unspecified ([facility]) 09/02/2008 in the setting of Vitamin D deficiency Immunodeficiency due to conditions classified elsewhere ([facility]) 12/30/2022 Irritable bowel syndrome Lipodermatosclerosis Lymphedema of both lower extremities Migraine Morbid obesity ([facility]) Multiple sclerosis, relapsing-remitting ([facility]) Nuclear senile cataract 01/03/2021 CODIE (obstructive sleep apnea) Other psoriasis 01/14/2006 POSSIBLE Peripheral neuropathy PLMD (periodic limb movement disorder) Polypharmacy Primary open angle glaucoma (POAG) of both eyes, mild stage Primary osteoarthritis involving multiple joints Psoriatic arthritis ([facility]) 02/11/2006 PTSD (post-traumatic stress disorder) Restless legs 12/10/2022 Seizures ([facility]) Spinal stenosis of cervical region Type 2 diabetes mellitus ([facility]) Varicose veins of lower limb Varicose veins Venous insufficiency Vitamin B12 deficiency Vitamin D deficiency Assessment/Plan s/p CE OD (POD #1): Patient provided with post-op form. Instructed to continue drops as well as shield. Instructed to call immediately with increased pain, redness, decreased vision, questions or concerns. documented in this encounter Plan of Treatment Upcoming Encounters Date Type Department Care Team (Late st Contact Info) Description 05/05/2025 1:15 PM EDT Office Visit [facility] [address] [place] [address] Bina Faye MD [address] [place] [address] 06/06/2025 2:00 PM EST Office Visit [facility] [place] [facility] [address] [place] [address] 07/18/2025 3:15 PM EST Procedure Visit [facility] [address] [place] [address] Susie Mary DPM [address] [place] [address] documented as of this encounter Visit Diagnoses Diagnosis Postoperative care for cataract- Primary Follow-up examination, following other surgery documented in this encounter Care Teams Photography Teacher Relationship Specialty Start Date End Date Darrius Orr MD [address] [place] [address] PCP - [employer] 08/04/19 Darrius Orr MD [address] [place] [address] PCP - General Internal Medicine 12/31/22 Aiden Linares DPM [address] [place] [address] Referring Physician Podiatry 10/30/23 Kai Gutierres DO [address] [address] Referring Physician Neurology 02/24/24 documented as of this encounter
--- OUTSIDE RECORDS SUMMARY | 2025-04-13 14:15 | XMS_ITS | Encounter Summary ---
Author Organization [facility] Address [address] [place] [address] Care Team Providers Care Computer Operations Technician Name Role Phone Darrius Orr MD Unavailable [phone] Darrius Orr MD Primary Care Provider [phone] Aiden Linares DPM Unavailable [phone] Kai Gutierres DO Unavailable [phone] Reason for Visit * Reason Comments Post-op Encounter Details Date Type Department Care Team (Late st Contact Info) Description 04/13/2025 2:15 PM EDT Office Visit [facility] [address] [place] [address] Bina Faye MD [address] [place] [address] Postoperative care for cataract (Primary Dx) Social [...] Progress Notes * Bina Faye MD - 04/13/2025 2:15 PM EDT Allergies Allergen Reactions Duloxetine Diarrhea Verapamil GI intolerance Duloxetine Hcl Other Reaction(s): intolerance Natalizumab Other Reaction(s): AOF Semaglutide Other Reaction(s): nausea and vomiting Other Reaction(s): Other: See Comments Chills, nightmares, diarrhea Past Medical History: Diagnosis Date Adrenal adenoma, left 12/30/2022 Age-related nuclear cataract, bilateral Bipolar disorder ([facility]) Carpal tunnel syndrome Cervical paraspinal muscle spasm Cholelithiasis Chronic sialoadenitis CKD (chronic kidney disease) stage 2, GFR 60-89 ml/min Essential hypertension SUKHJINDER (generalized anxiety disorder) History of colon polyps Hyperlipidemia Hyperparathyroidism, unspecified ([facility]) 09/02/2008 in the setting of Vitamin D deficiency Immunodeficiency due to conditions classified elsewhere ([facility]) 12/30/2022 Irritable bowel syndrome Lipodermatosclerosis Lymphedema of both lower extremities Migraine Morbid obesity ([facility]) Multiple sclerosis, relapsing-remitting ([facility]) Nuclear senile cataract 01/03/2021 CODIE (obstructive sleep apnea) Other psoriasis 01/14/2006 POSSIBLE Peripheral neuropathy PLMD (periodic limb movement disorder) Polypharmacy Primary open angle glaucoma (POAG) of both eyes, mild stage Primary osteoarthritis involving multiple joints Psoriatic arthritis ([facility]) 02/11/2006 PTSD (post-traumatic stress disorder) Restless legs 12/10/2022 Seizures ([facility]) Spinal stenosis of cervical region Type 2 diabetes mellitus ([facility]) Varicose veins of lower limb Varicose veins Venous insufficiency Vitamin B12 deficiency Vitamin D deficiency Assessment/Plan s/p CE OD (POD #7): Patient provided with post-op form. Instructed to continue drops. Discontinue eye shield. Instructed to call immediately with increased pain, redness, decreased vision, questions or concerns. documented in this encounter Plan of Treatment Upcoming Encounters Date Type Department Care Team (Late st Contact Info) Description 05/05/2025 1:15 PM EDT Office Visit [facility] [address] [place] [address] Bina Faye MD [address] [place] [address] 06/06/2025 2:00 PM EST Office Visit [facility] [place] [facility] [address] [place] [address] 07/18/2025 3:15 PM EST Procedure [facility] [address] [place] [address] Susie Mary DPM [address] [place] [address] documented as of this encounter Visit Diagnoses Diagnosis Postoperative care for cataract- Primary Follow-up examination, following other surgery documented in this encounter Care Teams Computer Operations Technician Relationship Specialty Start Date End Date Darrius Orr MD [address] [place] [address] PCP - [employer] 08/04/19 Darrius Orr MD [address] [place] [address] PCP - General Internal Medicine 12/31/22 Aiden Linares DPM [address] [place] [address] Referring Physician Podiatry 10/30/23 Kai Gutierres DO [address] [address] Referring Physician Neurology 02/24/24 documented as of this encounter
--- OUTSIDE RECORDS SUMMARY | 2025-04-14 13:35 | XMS_ITS | Encounter Summary ---
Author Organization [facility] Address [address] [place] [address] Care Team Providers Care Manufacturer Agent Name Role Phone Darrius Orr MD Unavailable [phone] Darrius Orr MD Primary Care Provider [phone] Aiden Linares DPM Unavailable [phone] Kai Gutierres DO Unavailable [phone] Reason for Visit * Reason Comments Follow-up Encounter Details Date Type Department Care Team ([facility] st Contact Info) Description 04/14/2025 1:35 PM EDT Office Visit [facility] [address] [facility] [address] [place] [address] Ludy Dela Cruz, HAMMER SMITH-TAKE UP OPERATOR [address] [facility] [address] [place] [address] Bacterial folliculitis (Primary Dx); Other seborrheic dermatitis Social History Tobacco Use Types Packs/Day Years [...] as of this encounter Progress Notes * JENIFFER Devries - 04/14/2025 1:35 PM EDT Images from the original note were not included. Follow up Diagnosis: Seborrheic Dermatitis Location: face and chest Last visit: 03/31/2025 Symptoms: scaly, itchy, and redness Status: face clear, and chest is almost clear Current treatment: Ketoconazole cream bid Follow up Diagnosis: Folliculitis Location: chest Last visit: 03/31/2025 Symptoms: bumps Status: resolved Current treatment: keflex bid x 14 days, completed as prescribed, denies any side effects All pertinent medical history, medications, and allergies were reviewed. General Exam: alert, oriented to person, place, and time, normal affect, well appearing Unaccompanied A focused exam completed based on patient reported problems, see below: Skin Exam 1. BACTERIAL FOLLICULITIS Chest - Medial (Center) Clear of Follicularly-based erythematous papules and pustules. Clear today. Notify office if any flaring. Related Medications cephalexin (Keflex) 500 MG capsule Take 1 capsule by mouth, bid x 14 days. 2. OTHER SEBORRHEIC DERMATITIS Head - Anterior (Face) Clear of Erythema and scale on face, some improvement on chest. Discussed that seborrheic dermatitis is a chronic condition that can be controlled but not cured. Continue ketoconazole cream apply topically to chest and face bid as needed when flared, set aside when clear. Notify office if flaring despite treatment. Follow up as needed Related Medications ketoconazole (NIZOral) 2 % cream Apply thin layer to affected areas on face and chest bid Next Visit: PRN as needed documented in this encounter Plan of Treatment Upcoming Encounters Date Type Department Care Team (Late st Contact Info) Description 05/05/2025 1:15 PM EDT Office Visit [facility] [address] [place] [address] Bina Faye MD [address] [place] [address] 06/06/2025 2:00 PM EST Office Visit [facility] [place] [facility] [address] [place] [address] 07/18/2025 3:15 PM EST Procedure Visit [facility] [place] [facility] [address] [place] [address] Susie Mary DPM [address] [place] [address] documented as of this encounter Visit Diagnoses Diagnosis Bacterial folliculitis- Primary Other specified disease of hair and hair follicles Other seborrheic dermatitis documented in this encounter Care Teams Manufacturer Agent Relationship Specialty Start Date End Date Darrius Orr MD [address] [place] [address] PCP - [employer] 08/04/19 Darrius Orr MD [address] [place] [address] PCP - General Internal Medicine 12/31/22 Aiden Linares DPM [address] [place] [address] Referring Physician Podiatry 10/30/23 aKi Gutierres DO [address] [facility] [address] [place] [address] Referring Physician Neurology 02/24/24 documented as of this encounter
--- OUTSIDE RECORDS SUMMARY | 2025-04-14 14:15 | XMS_ITS | Encounter Summary ---
Author Organization [facility] Address [address] [place] [address] Care Team Providers Care Masonry Contractor Administrator Name Role Phone Darrius Orr MD Unavailable [phone] Darrius Orr MD Primary Care Provider [phone] Aiden Linares DPM Unavailable [phone] Kai Gutierres DO Unavailable [phone] Encounter Details Date Type Department Care Team ([facility] Contact Info) Description 04/14/2025 2:15 PM EDT Office Visit [facility] [place] [facility] [address] [place] [address] Susie Mary DPM [address] [place] [address] Onychomycosis (Primary Dx); Neuropathy; Type 2 diabetes mellitus with diabetic neuropathy, with long-term current use of insulin ([facility]) Social History Tobacco Use Types Packs/Day Years [...] as of this encounter Progress Notes * Susie Mary DPM - 04/14/2025 2:15 PM EDT Images from the original note were not included. HPI: Diabetic/Routine Nail Care: Patient is being treated by [facility].05/12/2024 Side: VICENTE. Location: toenails. Duration: ongoing. Severity of symptoms: mild. Onset: gradual. Status: improves with debridement on toenails. NAILS: thickened, discolored, pain, discolored, crusty, elongated . Associated Symptoms: ingrowing toenails. Relieved by: debridement, filing down nails, clipping nails. Previous Treatment: debridement. History of ulcers/wounds: no. Has treatment helped with pain: yes . Recent BS reading, if diabetic: A1c 12 PCP: Dr Orr. 01/07/25 Aggravated by: shoe gear, pressure. Risk factors: diabetes, curvature of nails, hard to trim, ingrown. Examination: General Examination: GENERAL EXAMINATIONalert, well hydrated, in no distress , awake, aware of surroundings. FOOT EXAM: 04/14/25 Vascular: DORSALIS PEDIS PULSE:2/4, bilaterally. POSTERIOR TIBIAL [...] needed if problems arise. documented in this encounter Plan of Treatment Upcoming Encounters Date Type Department Care Team (Late st Contact Info) Description 05/05/2025 1:15 PM EDT Office Visit [facility] [address] [place] [address] Bina Faye MD [address] [place] [address] 06/06/2025 2:00 PM EST Office Visit [facility] [place] [facility] [address] [place] [address] 07/18/2025 3:15 PM EST Procedure Visit [facility] [place] [facility] [address] [place] [address] Susie Mary DPM [address] [place] [address] documented as of this encounter Visit Diagnoses Diagnosis Onychomycosis- Primary Dermatophytosis of nail Neuropathy Mononeuritis of unspecified site Type 2 diabetes mellitus with diabetic neuropathy, with long-term current use of insulin ([facility]) documented in this encounter Care Teams Masonry Contractor Administrator Relationship Specialty Start Date End Date Darrius Orr MD [address] [place] [address] PCP - [employer] 08/04/19 Darrius Orr MD [address] [place] [address] PCP - General Internal Medicine 12/31/22 Aiden Linares DPM [address] [place] [address] Referring Physician Podiatry 10/30/23 Kai Gutierres DO [address] [facility] [address] [place] [address] Referring Physician Neurology 02/24/24 documented as of this encounter
--- OUTSIDE RECORDS SUMMARY | 2025-04-18 15:15 | XMS_ITS | Encounter Summary ---
Author Organization [facility] Address [address] [place] [address] Care Team Providers Care Stonecutter Assistant Name Role Phone Darrius Orr MD Unavailable [phone] Darrius Orr MD Primary Care Provider [phone] Aiden Linares DPM Unavailable [phone] Kai Gutierres DO Unavailable [phone] Reason for Visit * Reason Comments Toradol Injection Patient is requestin g Toradol Injection Dizziness Room spinning dizzin ess. Sweats Migraine Rates pain 10/10 Diarrhea Abdominal pain and d iarrhea Anxiety Increased anxiety. D epression Encounter Details Date Type Department Care Team ([facility] st Contact Info) Description 04/18/2025 3:15 PM EDT [facility] [address] [facility] [address] [place] [id number] Adela Gross, [employer] [address] [facility] [address] [place] [address] Essential hypertension (Primary Dx); History of migraine headaches; Generalized anxiety disorder ; Irritable bowel syndrome with diarrhea; Dizziness Social History Tobacco Use Types Packs/Day Years [...] Sign Reading Time Taken Comments Blood Pressure 122/80 04/18/2025 3:31 PM EDT Pulse 75 04/18/2025 3:31 PM EDT Temperature 35.8 C (96.5 F) 04/18/2025 3:31 PM EDT Respiratory Rate - - Oxygen Saturation 99% 04/18/2025 3:31 PM EDT Inhaled Oxygen Concentration - - Weight - - Height 175.3 cm (5' 9 ) 04/18/2025 3:31 PM EDT Body Mass Index - - documented in this encounter Progress Notes * Adela Gross, [employer] - 04/18/2025 3:15 PM EDT Images from the original note were not included. Alex Ellis is a 54 y.o. male presents with chief complaint of Toradol Injection (Patient is requesting Toradol Injection), Dizziness (Room spinning dizziness. Sweats), Migraine (Rates pain 10/10), Diarrhea (Abdominal pain and diarrhea), and Anxiety (Increased anxiety. Depression) HPI: History of Present Illness The patient presents for evaluation of migraines, anxiety, and dizziness. He is accompanied by his mother. Migraines, Anxiety, and Dizziness He reports experiencing headaches, which he describes as migraines. These are accompanied by dizziness, difficulty in deep breathing due to pain, and a sensation of the room spinning. He also mentions that his symptoms tend to worsen a month prior to his Ocrevus infusion, which is scheduled for 06/23/2025. He experiences daily headaches, dizziness, and balance issues. He has not taken Xanax recently, even though he has been feeling anxious. He expresses a dislike for Xanax and reports taking 3 or 4 tablets at a time when he does use it. He has not refilled his Xanax prescription since 02/2025. - Onset: Symptoms worsen a month prior to Ocrevus infusion. - Duration: Daily headaches, dizziness, and balance issues. - Character: Migraines, dizziness, difficulty in deep breathing due to pain, sensation of the room spinning. - Alleviating/Aggravating Factors: Symptoms worsen a month prior to Ocrevus infusion; dislike for Xanax. - Timing: Daily. - Severity: Significant enough to cause difficulty in deep breathing and balance issues. Irritable Bowel Syndrome (IBS) He has been diagnosed with irritable bowel syndrome (IBS), which he believes is causing his diarrhea. He also thinks that his anxiety might be contributing to this condition. - Character: Diarrhea. - Alleviating/Aggravating Factors: Anxiety might be contributing to IBS. Hearing and Vision Issues He has hearing issues and is reluctant to return to the doctor. He underwent cataract surgery on one eye, but the other eye remains cloudy, which is causing him distress. He had a skin graft to treathis glaucoma. - Onset: Post-cataract surgery. - Location: Eyes. - Character: Cloudy vision in the untreated eye. - Severity: Causing distress. Fear of Falling He expresses fear of falling due to his dizziness and knee problems, which make it difficult for him to get up without assistance. - Character: Fear of falling. - Severity: Difficulty getting up without assistance. PAST SURGICAL HISTORY: Cataract surgery Skin graft for glaucoma I have reviewed and reconciled the history and medication list with the patient today. HISTORIES: PAST MEDICAL HISTORY: Past Medical History: Diagnosis Date Adrenal adenoma, left 12/30/2022 Age-related nuclear cataract, bilateral Bipolar disorder ([facility]) Carpal tunnel syndrome Cervical paraspinal muscle spasm Cholelithiasis Chronic sialoadenitis CKD (chronic kidney disease) stage 2, GFR 60-89 ml/min Essential hypertension SUKHJINDER (generalized anxiety disorder) History of colon polyps Hyperlipidemia Hyperparathyroidism, unspecified ([facility]) 09/02/2008 in the setting of Vitamin D deficiency Immunodeficiency due to conditions classified elsewhere ([facility]) 12/30/2022 Irritable bowel syndrome Lipodermatosclerosis Lymphedema of both lower extremities Migraine Morbid obesity ([facility]) Multiple sclerosis, relapsing-remitting ([facility]) Nuclear senile cataract 01/03/2021 CODIE (obstructive sleep apnea) Other psoriasis 01/14/2006 POSSIBLE Peripheral neuropathy PLMD (periodic limb movement disorder) Polypharmacy Primary open angle glaucoma (POAG) of both eyes, mild stage Primary osteoarthritis involving multiple joints Psoriatic arthritis (HCC) 02/11/2006 PTSD (post-traumatic stress disorder) Restless legs 12/10/2022 Seizures (HCC) Spinal stenosis of cervical region Type 2 diabetes mellitus (HCC) Varicose veins of lower limb Varicose veins Venous insufficiency Vitamin B12 deficiency Vitamin D deficiency SURGICAL HISTORY: Past Surgical History: Procedure Laterality Date ARTERY BIOPSY Left 08/26/2016 temporal artery biopsy. Excision painful vein lt rastafarian ARTERY BIOPSY Right 03/11/2014 temporal artery biopsy COLONOSCOPY 11/27/2018 CYST REMOVAL Excision of benign cyst back of neck, [facility] KNEE SURGERY arthroscopic knee surgery OTHER SURGICAL HISTORY Excision oral lesion / alveolar ridge SOCIAL HISTORY: Social History Tobacco Use Smoking status: Former Average packs/day: 0.3 packs/day for 35.0 years (8.8 ttl pk-yrs) Types: Cigarettes Start date: 1989 Passive exposure: Past Smokeless tobacco: Never Vaping Use Vaping status: Never Used Substance Use Topics Alcohol use: Never Comment: Caffine intake: Coke Zero, 2-3 cans daily Drug use: Yes Types: Marijuana Comment: Daily Depression: Not at risk (02/28/2025) PHQ-2 PHQ-2 Score: 0 FAMILY HISTORY: Family History Problem Relation Name Age of Onset Cancer Mother anastacio gallardo COPD Mother anastacio gallardo Hypertension Father braulio ellis Heart disease Father braulio ellis Cancer Father braulio ellis Diabetes Father braulio ellis Liver disease Father braulio ellis Alcohol abuse Father braulio ellis Cancer Maternal Grandmother kae caceres MEDICATIONS: Current Outpatient Medications Medication Instructions ALPRAZolam (XANAX) 0.5 mg, Oral, 2 times daily PRN amitriptyline (ELAVIL) 25 mg, Oral, Nightly Atogepant 60 mg, Daily RT Cannabinoids (medical cannabis) carisoprodol (SOMA) 350 mg, Oral, 2 times daily PRN cephalexin (Keflex) 500 MG capsule Take 1 capsule by mouth, bid x 14 days. clotrimazole (Lotrimin) 1 % cream Twice daily cyclobenzaprine (FLEXERIL) 10 mg, Oral, 3 times daily PRN diclofenac sodium (VOLTAREN) 4 g, Topical, 4 times daily PRN divalproex (Depakote ER) 500 MG 24 hr tablet Take by mouth empagliflozin (JARDIANCE) 25 mg, Oral, Daily, Pt given 2 weeks of samples to try for tolerance ergocalciferol (VITAMIN D-2) 1.25 mg, Weekly ibuprofen 800 mg, Oral, 3 times daily PRN irbesartan (AVAPRO) 300 mg, Oral, Daily ketoconazole (NIZOral) 2 % cream Apply thin layer to affected areas on face and chest bid Lancets Micro Thin 33G misc 1 Lancet , As needed latanoprost (Xalatan) 0.005 % ophthalmic solution 1 drop, Nightly metoprolol succinate XL (TOPROL-XL) 100 mg, Oral, Daily NovoLOG FLEXPEN 0-35 Units, Subcutaneous, 3 times daily with meals, Maximum of 105 units a day Ocrevus 600 mg, Over 6 months ofloxacin (Floxin) 0.3 % otic solution Twice daily oxyCODONE-acetaminophen (Percocet) 5-325 MG tablet 1-2 tablets, Oral, Every 6 hours PRN Rhbzodgipyj-Qtpbqlvm-Ywnnxhhln 1-0.5-0.075 % solution 1 drop, Ophthalmic, 4 times daily pregabalin (LYRICA) 100 mg, Oral, Every morning pregabalin (LYRICA) 300 mg, Oral, Nightly rosuvastatin (CRESTOR) 20 mg, Oral, Nightly Tresiba FlexTouch 100 Units, Subcutaneous, Nightly ALLERGIES: Allergies Allergen Reactions Duloxetine Diarrhea Verapamil GI intolerance Duloxetine Hcl Other Reaction(s): intolerance Natalizumab Other Reaction(s): AOF Semaglutide Other Reaction(s): nausea and vomiting Other Reaction(s): Other: See Comments Chills, nightmares, diarrhea PHYSICAL EXAM: Visit Vitals BP 122/80 (BP Location: Left arm, Patient Position: Sitting) Pulse 75 Temp 96.5 ??F Ht 5' 9 SpO2 99% BMI 52.13 kg/m?? Smoking Status Former BSA 2.79 m?? BP Readings from Last 3 Encounters: 04/18/25 122/80 03/17/25 (!) 144/96 03/08/25 (!) 160/100 Wt Readings from Last 3 Encounters: 03/28/25 353 lb 03/17/25 353 lb 9.6 oz 03/11/25 352 lb Physical Exam HENT: Mouth/Throat: Mouth: Mucous membranes are moist. Cardiovascular: Rate and Rhythm: Normal rate and regular rhythm. Heart sounds: No murmur heard. No friction rub. No gallop. Pulmonary: Effort: Pulmonary effort is normal. Breath sounds: Normal breath sounds. Abdominal: General: Bowel sounds are normal. Palpations: Abdomen is soft. Tenderness: There is no abdominal tenderness. Skin: General: Skin is warm. Neurological: Mental Status: He is alert and oriented to person, place, and time. Mental status is at baseline. Physical Exam Respiratory: Clear to auscultation, no wheezing, rales or rhonchi Cardiovascular: Regular rate and rhythm, no murmurs, rubs, or gallops Results Labs - Blood Glucose Test: Slightly elevated ASSESSMENT AND PLAN: Assessment & Plan 1. Essential hypertension (Primary) BP stable. Continue current regimen. 2. History of migraine headaches Migraine: Acute. - Severe headaches, dizziness, and room spinning sensations. - Blood pressure is normal. - Toradol injection for immediate relief. - Xanax 0.25 mg twice daily as needed for anxiety, with mother administering the medication to ensure proper dosage. Refill for Xanax provided. 3. Generalized anxiety disorder Anxiety: Chronic. - OARRS reviewed without concerns. - Feeling anxious, has not taken Xanax recently. - Xanax 0.25 mg twice daily as needed, with mother administering the medication to ensure proper dosage. Refill for Xanax provided. - I requested that his mother give him the Xanax bc he said sometimes he has to take more. I instructed pt and mother he is to take no more than 2/day otherwise he will not get this medication refilled by this provider. - ALPRAZolam (Xanax) 0.5 MG tablet; Take 1 tablet (0.5 mg) by mouth 2 (two) times a day as needed for anxiety Dispense: 60 tablet; Refill: 0 4. Irritable bowel syndrome with diarrhea Irritable Bowel Syndrome (IBS): Chronic. - IBS symptoms, including diarrhea, exacerbated by anxiety. - Manage anxiety with Xanax and monitor symptoms. 5. Dizziness Dizziness: Acute. - Dizziness and room spinning sensations. - Home exercises for neck, recommended YouTube channel. - Referral to therapist for vertigo management if dizziness persists. Follow-up - June [address] Orr was not in the office at time of visit, but was available via real- time, audio/visual technology to supervise patient care. I am following Dr. Orr's plan of care for the above issues. documented in this encounter Miscellaneous Notes * Addendum Note - Vikki Winkler MA - 04/18/2025 3:15 PM EDTAddended by: VIKKI WINKLER on: 04/18/2025 04:54 PM Modules accepted: Orders documented in this encounter Plan of Treatment Upcoming Encounters Date Type Department Care Team (Late st Contact Info) Description 05/05/2025 1:15 PM EDT Office Visit [facility] [address] [place] [address] Bina Faye MD [address] [place] [address] 06/06/2025 2:00 PM EST Office Visit [facility] [address] [place] [phone] 07/18/2025 3:15 PM EST Procedure Visit [facility] [address] [place] [phone] Susie Mary DPM [address] [place] [address] documented as of this encounter Visit Diagnoses Diagnosis Essential hypertension- Primary Unspecified essential hypertension History of migraine headaches Generalized anxiety disorder Generalized anxiety disorder Irritable bowel syndrome with diarrhea Irritable bowel syndrome Dizziness Dizziness and giddiness documented in this encounter Care Teams Stonecutter Assistant Relationship Specialty Start Date End Date Darrius Orr MD [address] [place] [address] PCP - [employer] 08/04/19 Darrius Orr MD [address] [place] [address] PCP - General Internal Medicine 12/31/22 Aiden Linares DPM [address] [facility] [address] [place] [address] Referring Physician Podiatry 10/30/23 Kai Gutierres DO [address] [facility] [address] [place] [address] Referring Physician Neurology 02/24/24 documented as of this encounter
[2025-04-18 22:45] VITALS: BP 215/94; PULSE 53; TEMP 36.8; O2SAT 99; BMI 52.0
--- OUTSIDE RECORDS SUMMARY | 2025-04-18 22:53 | XMS_ITS | Clinical Summary ---
Author Organization [facility] Address [address] [place] [address] Care Team Providers Care District Captain Name Role Phone Darrius Orr MD Primary Care Provider [phone] Darrius Orr MD Unavailable Allergies Active Allergy Reactions Criticality Noted Date Comments Semaglutide Other: See Comments 11/21/2020 Chills, nightmares, diarrhea Medications Bimatoprost (LUMIGAN) 0.01 % OPHTHALMIC DropIndications:O ther specified glaucoma Use 1 Drop in both eyes once daily. 0 012 Active metoprolol succinate XL, long acting, (TOPROL XL) 25 mg 24 hr tablet Take 25 mg by mouth once daily. Active hydroCHLOROthiazi de (HYDRODIURIL, ESIDRIX) 25 mg tablet Take 25 mg by mouth once daily. Active irbesartan (AVAPRO) 300 mg tablet Take 300 mg by mouth once daily. Active cholecalciferol (VITAMIN D-3) 5,000 unit tab Take 5,000 Units by mouth daily with food. Active diclofenac sodium (VOLTAREN) 1 % topical gel apply FOUR grams topically FOUR TIMES DAILY NEEDED 020 Active rosuvastatin (CRESTOR) 20 mg tabletIndications :Hyperlipidemia, unspecified hyperlipidemia type Take 1 tablet by mouth once daily. 90 tablet 3 021 Active insulin degludec (TRESIBA FLEXTOUCH U-200) 200 unit/mL (3 mL) injectionIndicati ons:Diabetes mellitus type 2 in obese Inject 100 Units subcutaneously daily at bedtime. 12 Pen 3 021 Active empagliflozin (JARDIANCE) 10 mg tablet Take 1 tablet by mouth once daily. 90 tablet 3 025 2025 Active divalproex ER (DEPAKOTE ER) 500 mg 24 hr tablet Take 2 tablets by mouth once daily for 5 days, THEN 1 tablet once daily for 5 days. 15 tablet Active pregabalin (LYRICA) 100 mg capsule Take 100 mg by mouth once daily. Active pregabalin (LYRICA) 300 mg capsule Take 300 mg by mouth daily at bedtime. Active oxyCODONE-acetami nophen (PERCOCET) 5-325 mg tablet Take 1 tablet by mouth as needed for pain. 0 Active NaCl 0.9% solp 500 mL with ocrelizumab 30 mg/mL soln 600 mg Inject 600 mg intravenously one time only. Active amitriptyline (ELAVIL) 25 mg tablet Take 25 mg by mouth daily at bedtime. Active atogepant (QULIPTA) 60 mg tablet Take 1 tablet by mouth once daily. 30 tablet 2 04/01/20 25 9:33 AM EDT 2024 Active aspirin, enteric coated (ASPIRIN, ENTERIC COATED) 81 mg EC tablet Take 81 mg by mouth once daily. 2024 Discontinued ketoconazole (NIZORAL) 2 % cream Apply to rash on thighs twice daily until rash is gone. 60 g 1 015 2024 Discontinued ergocalciferol, vitamin D2, (VITAMIN D) 50,000 unit capsule Take 1 capsule by mouth once each week. 4 capsule 2 015 2024 Discontinued venlafaxine (EFFEXOR) 75 mg tablet Take 1 tablet by mouth twice daily. 60 tablet 11 015 2024 Discontinued Podofilox (PODOFILOX) 0.5 % external solution Apply to lesions twice daily x 3 days on, then 4 days off. 3.5 mL 3 015 2024 Discontinued dimethyl fumarate (TECFIDERA) 240 mg cpDR Take 240 mg by mouth twice daily. 180 capsule 0 016 2024 Discontinued labetalol (TRANDATE) 300 mg tablet Take 300 mg by mouth once daily. Labetalol HCL 300mg 3 times daily (per pt report) 2024 Discontinued diclofenac, EC, (VOLTAREN) 75 mg EC tablet Take 75 mg by mouth twice daily. 2024 Discontinued labetalol (TRANDATE) 100 mg tablet Take 100 mg by mouth three times daily. 2024 Discontinued empagliflozin (JARDIANCE) 10 mg tabletIndications :Diabetes mellitus type 2 in obese Take 1 tablet by mouth once daily. 90 tablet 3 021 2024 Discontinued Active Problems Problem Noted Date Diagnosed Date [...] Encounters Date Type Department Care Team Description 03/30/2025 3:30 [place] [address] Kaushal Albert MD Multiple sclerosis (HCC) (Primary Dx); Chronic pain syndrome 03/30/2025 2:00 PM EDT Office Visit Neurology [address] [place] [address] Fide Boucher DO Intractable chronic migraine without aura and with status migrainosus (Primary Dx); Bilateral occipital neuralgia; Medication overuse headache 03/30/2025 Travel 01/18/2025 Telephone Neurology [address] [place] [address] Self Received Outside Medical Records ([facility]) from Last 3 Months Immunizations Immunization Administration [...] Cigarettes Q uit: 08/18/2012 Smokeless Tobacco: Never Tobacco Cessation:Counseling Given: Not Answered Alcohol Use Standard Drinks/Week Comments No 0 (1 standard drink = 0.6 oz pur e alcohol) PHQ-2 Answer Date Recorded PHQ-2 score 6 10/26/2019 Area Deprivation Index Answer Date Jaydon rded National Score (1-100), lower number is lower ri sk 83 01/07/2025 State Score (1-10), lower number is lower risk 7 01/07/2025 Data from: https://www.neighborhoodatlas.medicine.[facility].edu/. Last address used for calculation [address] 01/07/2025 Sex and Gender Information Value Date Recorded [...] Sign Reading Time Taken Comments Blood Pressure 152/114 03/30/2025 3:27 PM EDT Pulse 75 03/30/2025 3:27 PM EDT Temperature 36.6 C (97.8 F) 10/26/2019 11:19 AM EDT Respiratory Rate 24 01/24/2015 2:32 PM EDT Oxygen Saturation 98% 03/30/2025 2:10 PM EDT Inhaled Oxygen Concentration - - Weight 159.2 kg (351 lb) 03/30/2025 3:27 PM EDT Height 175.3 cm (5' 9 ) 03/30/2025 3:27 PM EDT Body Mass Index 51.83 03/30/2025 3:27 PM EDT Plan of Treatment Upcoming Encounters Date Type Department Care Team (Late st Contact Info) Description 05/06/2025 1:00 PM EDT Office Visit [facility] [address] [place] [address] Caitlin Estrada MD [address] [place] [address] New patient caroline 05/16/2025 10:00 AM EDT Office Visit Rheumatology [address] [facility] [address] Priscilla Mckee MD [address] [place], [place] [id number] Psoriatic Arthritis 07/04/2025 11:30 AM EST Office Visit Neurology [address] [place] [address] Fide Boucher DO [address] [place] [address] 3 month f/u Health Maintenance Due Date Last Done Comments Annual PCP Team Chronic Dise ase Visit 1989 Anxiety Screening 1989 DTaP,Tdap,Td Vaccine (1 - Tdap) 1990 Hepatitis B Vaccine (1 of 3 - 19+ 3-dose series) 1990 11/26/2017 Dilated Retinal Exam 02/14/2015 02/14/2014, 09/18/2011, 06/21/2010, Additional history exists CT Colonography 2016 Cologuard (FIT-DNA) 2016 Fecal Occult Blood 2016 Sigmoidoscopy 2016 Diabetic Foot Exam 08/22/2016 08/22/2015, 0 02/15/2015, 10/20/2014, Additional history exists Colonoscopy 01/28/2020 01/27/2019 Colorectal Cancer Screening 01/28/2020 Urine Albumin:Creatinine Ratio 04/17/2021 0 04/17/2020, 12/29/2008, 03/19/2006, Additional history exists Shingrix Vaccine (1 of 2) 2021 Medicare Advantage Annual We llness Visit 08/04/2024 Influenza Vaccine (#1) 2025 06/30/2007 HbA1C 05/31/2025 02/28/2025, 04/2 03/2025, 11/29/2024, Additional history exists LDL Cholesterol 11/29/2025 11/29/2024, 04/04, 02/11/2014, Additional history exists HIV Screening Completed 02/08/2009 Hepatitis C Screening [...] A1C (POCT) 11.0(A) 4.2 - 5.6 % [facility]INT [facility] Comment: Point of [...] specific diabetes management situations: The POC device certified coatings inspector provides a normal range of 4.2% to 6.5% for the HGBA1C POC test. However, the [place] Diabetes Association guidelines indicate that patients with [...] TESTING Final Resu lt Performing Organization Address [facility]/ZIP Co de Phone Number [facility] * (ABNORMAL) ALBUMIN/CREAT RATIO RND UR (04/17/2020 12:23 PM EDT) Creatinine, Ur Random (UCRR) 252.3 20 - 300 mg/dL 04/17/2020 7:16 PM EDT [facility] Albumin, Urine Random 303.3 mg/L 04/17/2020 7:16 PM EDT [facility] Albumin/Creat Ratio 120(H) <30 mg/g 04/17/2020 7:16 PM EDT [facility] Comment: Adult Male and Female Nephrotic Criteria: [...] 12:23 PM EDT 04/17/2020 12:26 PM EDT us Wally Puga MD LABORATORY Final Resu lt Performing Organization Address City/[facility]/ZIP Co de Phone Number [facility] [address] [place] [address] [facility] [address] [place] [address] * (ABNORMAL) LIPID PANEL BASIC (04/17/2020 12:21 PM EDT) Cholesterol, Total 167 <200 mg/dL 04/17/2020 6:13 PM [facility] Comment: <200 mg/dL, Desirable 200-239 mg/dL, Borderline high >239 mg/dL, High Triglyceride 83 <150 mg/dL 04/17/2020 6:13 PM [facility] Comment: <150 mg/dL, Normal 150-199 mg/dL, Borderline high 200-499 mg/dL, High >499 mg/dL, Very high HDL Cholesterol 44 >39 mg/dL 0 6:13 PM [facility] Comment: 40-59 mg/dL, Acceptable >59 mg/dL, High: Negative risk factor for coronary heart disease <40 mg/dL, Low: Positive risk factor for coronary heart disease LDL Cholesterol, Calculated 106(H) <100 mg/dL 04/17/2020 6:13 PM [facility] Comment: <100 mg/dL, Optimal 100-129 mg/dL, Near optimal/above optimal 130-159 mg/dL, Borderline high 160-189 mg/dL, High >189 mg/dL, Very high Secondary prevention optimal LDL Cholesterol levels are recommended to be < 70 mg/dL Non HDL Cholesterol 123 <130 mg/dL 04/17/2020 6:13 PM [facility] Comment: <130 mg/dL, Optimal 130-159 mg/dL, Near optimal/above optimal 160-189 mg/dL, Borderline high 190-219 mg/dL, High >219 mg/dL, Very high Secondary prevention optimal non HDL Cholesterol levels are recommended to be < 100 mg/dL Fasting Time 12 hrs 04/17/2020 12:23 PM [facility] VLDL Cholesterol 17 <30 mg/dL 04/17/20 20 6:13 PM [facility] TC:HDL Ratio 3.80 <5.10 04/17/2020 6:13 PM [facility] LDL:HDL Ratio 2.41 <2.54 04/17/2020 6:13 PM [facility] Comment: Reference: 1. National Cholesterol Education Program ATP III Guideline At-A-Glance Quick Desk Reference: National Heart, Lung, and Blood [place]. National Institutes of Health. 2001: NIH Publication No. 01-3305. 2. An International Atherosclerosis Society position paper: global recommendations for the management of dyslipidemia: executive summary, Atherosclerosis. 2014: 232(2):410-413. Blood specimen (specimen) BLOOD SPECIMEN / Unknown 04/17/2020 12:21 PM EDT 04/17/2020 12:23 PM EDT Wally Puga MD LABORATORY Final Resu lt Performing Organization Address City/[facility] Co de Phone Number [facility] [address] [place] [address] [facility] [address] [place] [address] [facility] [address] [place] [address] * HIV AB 1&2 SCREEN (02/08/2009 12:57 PM EDT) HIV 1 & 2 Ab (EIA) Non Reactive NR [facility] Comment: If results are indeterminate or otherwise inconsistent with an individual's clinical presentation or risk profile for HIV infection a repeat specimen is requested. A repeat specimen is also recommended for any individual identified positive for the first time. Blood specimen (specimen) BLOOD SPECIMEN / Unknown 02/08/2009 12:57 PM EDT Clinton Gonzales MD LABORATORY Final Resu lt Performing Organization Address City/[facility]/ZIP Co de Phone Number [facility] [address] [place] [address] * HEP REMOTE PANEL BL (02/08/2009 12:57 PM EDT) Hep B Core Ab, Total Negative NEGAT [facility] Hep C Antibody IA Negative NEGAT [facility] HBsAg Negative NEGAT [facility] Hep B Surface Ab, Qual Negative [facility] Comment: A negative Hepatitis B Surface Antibody is indicative of: 1)no prior exposure to HBV, 2)lack of antibody response to an acute or chronic HBV infection, 3)lack of antibody response to HBV vaccination, or, 4)loss of immunity that followed either vaccination or infection. Blood specimen (specimen) BLOOD SPECIMEN / Unknown 02/08/2009 12:57 PM EDT us Clinton oGnzales MD LABORATORY Final Resu lt [facility] [address] 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
--- OUTSIDE RECORDS SUMMARY | 2025-04-18 22:53 | XMS_ITS | Encounter Summary ---
Author Organization [facility] Address [address] [facility] [place] [address] Care Team Providers Care Skein Washer Name Role Phone Darrius Orr MD Unavailable [phone] Darrius Orr MD Primary Care Provider [phone] Aiden Linares DPM Unavailable [phone] Kai Gutierres DO Unavailable [phone] Reason for Visit * Reason Onset Date Comments Tooth Absess 04/06/2025 Encounter Details Date Type Department Care Team (Late st Contact Info) Description 04/06/2025 Telephone [facility] [place] [facility] [address] [facility] [address] [place] [id number] [facility] [place], [place] Tooth Absess Social History Tobacco Use Types Packs/Day Years [...] encounter Miscellaneous Notes * Telephone Encounter - Darci Montgomery MA - 04/08/2025 8:26 AM EDT There is another encounter about this. Will contact patient * Telephone Encounter - Bina Small - 04/07/2025 6:40 PM EDT Hi pt called very tearful and he was seen [place] [facility] x today he said and they will not give him anything for pain. I saw you had filled percocet today and I let him know. He said pharmacy would not fill it early. I called pharmacy and said it is ok to fill today because of abscessed tooth. They saidins wont pay until 04/09 but he could pay 26.59 out of pocket. I called pt back and he is crying saying he can't afford to pay that. please advise I sent Dr. Orr secure chat and his response There really isn't much more I can do because I cannot make his insurance pay for the medicine and the onlyother place that would give him medicine after hours is usually the ER. There really isn't much more I can do because I cannot make his insurance pay for the medicine and the only other place that would give him medicine after hours is usually the ER. Also, I am on vacation and I am assuming my office did not notify you. Just let whoever follows you know and I will have them address that tomorrowpt is aware * Telephone Encounter - Darci Montgomery MA - 04/07/2025 10:02 AM EDT Patient informed of the below information * Telephone Encounter - Darrius Orr MD - 04/07/2025 9:49 AM EDT There is nothing else. I can refill the Percocet. * Telephone Encounter - Darci Montgomery MA - 04/06/2025 3:39 PM EDT Patient called and said he has a tooth abscess on the left bottom area of his mouth. He said gave him amoxacillin and cephalexin and he is due to have the tooth removed on Friday. He said he has been taking his percocet's frequently due to the pain in his mouth. He said it hurts to open hismouth and he is unable to eat due to the pain. He said he went to the ER and it did not help. He said he has 8-9 percocet's left. He wanted to know if there is anything else he can take. Please advise. documented in this encounter Plan of Treatment Upcoming Encounters Date Type Department Care Team (Late st Contact Info) Description 05/05/2025 1:15 PM EDT Office Visit [facility] [address] [place] [phone] Bina Faye MD [address] [place] [address] 06/06/2025 2:00 PM EST Office Visit [facility] [place] [facility] [address] [place] [phone] 07/18/2025 3:15 PM EST Procedure Visit [facility] [place] [facility] [address] [place] [phone] Susie Mary DPM [address] [place] [address] documented as of this encounter Visit Diagnoses Diagnosis Spinal stenosis in cervical region documented in this encounter Care Teams Skein Washer Relationship Specialty Start Date End Date Darrius Orr MD [address] [facility] [address] [place] [address] PCP - [employer] 08/04/19 Darrius Orr MD [address] [place] [address] PCP - General Internal Medicine 12/31/22 Aiden Linares DPM [address] [facility] [address] [place] [address] Referring Physician Podiatry 10/30/23 Kai Gutierres DO [address] [facility] [address] [place] [address] Referring Physician Neurology 02/24/24 documented as of this encounter
--- OUTSIDE RECORDS SUMMARY | 2025-04-18 22:53 | XMS_ITS | Encounter Summary ---
Author Organization [facility] Address [address] [place] [address] Care Team Providers Care Lithographic Photographer Apprentice Name Role Phone Camila Rodriguez MD Primary Care Provider [phone] Lizeth Tillman MD Primary Care Provider [phone] Clinton Gonzales MD Primary Care Provider [phone] Rich Chun MD Primary Care Provider [phone] Wally Monroe MD Primary Care Provider [phone] Rich Chun MD Primary Care Provider [phone] Wally Monroe MD Primary Care Provider [phone] Rich Chun MD Primary Care Provider [phone] Adebayo Reddy MD Primary Care Provider [phone] Ed Alfredo DO Primary Care Provider [phone] Darrius Orr MD Primary Care Provider [phone] Darrius Orr MD Unavailable [phone] Source Comments In the event this information is protected by the Federal Confidentiality of Alcohol and Drug AbusePatient Records regulations: The Federal rules restrict any use of the information to criminally investigate or prosecute any alcohol or drug abuse patient.[facility] Encounter Details Date Type Department Care Team (Late st Contact Info) Description 03/12/2006 Patient Msg Medical Records [address] [place] [address] Provider, [facility] Appointment Cancellation Request Social History [...] Description 05/06/2025 1:00 PM EDT Office Visit [facility] [address] [facility] [place] [address] Caitlin Estrada MD [address] [place] [address] New patient eval 05/16/2025 10:00 AM EDT Office Visit Rheumatology [address] [facility] [place] [address] Priscilla Mckee MD [address] [facility] [place] [address] Psoriatic Arthritis 07/04/2025 11:30 AM EST Office Visit Neurology [address] [place] [address] Fide Boucher DO [address] [place] [address] 3 month f/u documented as of this encounter Visit Diagnoses Not on filedocumented in this encounter Care Teams Lithographic Photographer Apprentice Relationship Specialty Start Date End Date Camila Rodriguez MD [address] [facility] [place] [address] PCP - General 10/13/09 12/28/12 Lizeth Tillman MD [address] [place] [address] PCP - General 08/16/09 10/12/09 Clinton Gonzales MD [address] [facility] [place] [address] PCP - General 09/02/08 08/15/09 Rich Chun MD [address] [place] [address] PCP - General 11/27/06 09/01/08 Wally Monroe MD [address] [place] [address] PCP - General 10/29/06 11/26/06 Rich Chun MD [address] [place] [address] PCP - General 10/28/06 10/28/06 Wally Monroe MD [address] [place] [address] PCP - General 10/15/06 10/27/06 Rich Chun MD [address] [place] [address] PCP - General 11/07/05 10/14/06 Adebayo Reddy MD [address] [place] [address] PCP - General Family Medicine 12/29/12 08/15/14 Ed Alfredo DO [address] [place] [address] PCP - General Family Medicine 08/16/14 08/31/19 Darrius Orr MD [address] [place] [address] PCP - General Internal Medicine 09/01/19 Darrius Orr MD [address] [place] [address] Referring Internal Medicine 11/16/24 documented as of this encounter
--- OUTSIDE RECORDS SUMMARY | 2025-04-18 22:53 | XMS_ITS | Encounter Summary ---
Author Organization [facility] Address [address] [place] [address] Care Team Providers Care Doctor Of Osteopathy Name Role Phone Camila Rodriguez MD Primary Care Provider [phone] Lizeth Tillman MD Primary Care Provider [phone] Clinton Gonzales MD Primary Care Provider + [phone] Rich Chun MD Primary Care Provider [phone] Wally Monroe MD Primary Care Provider [phone] Rich Chun MD Primary Care Provider [phone] Wally Monroe MD Primary Care Provider [phone] Rich Chun MD Primary Care Provider [phone] Adebayo Reddy MD Primary Care Provider [phone] Ed Alfredo DO Primary Care Provider [phone] Darrius Orr MD Primary Care Provider [phone] Darrius Orr MD Unavailable [phone] Source Comments In the event this information is protected by the Federal Confidentiality of Alcohol and Drug AbusePatient Records regulations: The Federal rules restrict any use of the information to criminally investigate or prosecute any alcohol or drug abuse patient.[facility] Encounter Details Date Type Department Care Team (Late st Contact Info) Description 03/12/2006 Patient Msg Medical Records [address] [place] [address] Provider, Cruzito Sam Social History Tobacco Use Types Packs/Day Years [...] Description 05/06/2025 1:00 PM EDT [facility] [address] [place] [address] Caitlin Estrada MD [address] [place] [address] New patient eval 05/16/2025 10:00 AM EDT Office Visit Rheumatology [address] [place] [address] Priscilla Mckee MD [address] [facility] [place] [address] Psoriatic Arthritis 07/04/2025 11:30 AM EST Office Visit Neurology [address] [place] [address] Fide Boucher DO [address] [place] [address] 3 month f/u documented as of this encounter Visit Diagnoses Not on filedocumented in this encounter Care Teams Doctor Of Osteopathy Relationship Specialty Start Date End Date Camila Rodriguez MD [address] [place] [address] PCP - General 10/13/09 12/28/12 Lizeth Tillman MD [address] [place] [address] PCP - General 08/16/09 10/12/09 Clinton Gonzales MD [address] [facility] [place] [address] PCP - General 09/02/08 08/15/09 Rich Chun MD [address] [place] [address] PCP - General 11/27/06 09/01/08 Wally Monroe MD [address] [place] [address] PCP - General 10/29/06 11/26/06 Rich Chun MD [address] [place] [address] PCP - General 10/28/06 10/28/06 Wally Monroe MD [address] [place] [address] PCP - General 10/15/06 10/27/06 Rich Chun MD [address] [facility] [place] [address] PCP - General 11/07/05 10/14/06 Adebayo Reddy MD [address] [place] [address] PCP - General Family Medicine 12/29/12 08/15/14 Ed Alfredo DO [address] [place] [address] PCP - General Family Medicine 08/16/14 08/31/19 Darrius Orr MD [address] [place] [address] PCP - General Internal Medicine 09/01/19 Darrius Orr MD [address] [place] [address] Referring Internal Medicine 11/16/24 documented as of this encounter
--- OUTSIDE RECORDS SUMMARY | 2025-04-18 22:53 | XMS_ITS | Encounter Summary ---
Author Organization [facility] Address [address] [place] [address] Phone Care Team Providers Care Director Of Recreation Therapy Name Role Phone Darrius Orr MD Primary Care Provider Encounter Details Date Type Department Care Team (Late st Contact Info) Description 03/11/2023 Scanned Document [facility] [address] [place] [address] Conversion, Onbase Social History Tobacco Use Types [...] in this encounter Care Teams Director Of Recreation Therapy Relationship Specialty Start Date End Date Darrius Orr MD [address] [place] [address] PCP - General 01/28/19 documented as of this encounter
--- OUTSIDE RECORDS SUMMARY | 2025-04-18 22:53 | XMS_ITS | Encounter Summary ---
Author Organization [facility] Address [address] [place] [address] Care Team Providers Care Manager Programming Name Role Phone Camila Rodriguez MD Primary Care Provider [phone] Adebayo Reddy MD Primary Care Provider [phone] Ed Alfredo DO Primary Care Provider [phone] Darrius Orr MD Primary Care Provider [phone] Darrius Orr MD Unavailable [phone] Source Comments In the event this information is protected by the Federal Confidentiality of Alcohol and Drug AbusePatient Records regulations: The Federal rules restrict any use of the information to criminally investigate or prosecute any alcohol or drug abuse patient.[facility] Encounter Details Date Type Department Care Team (Late st Contact Info) Description 08/31/2012 Patient Msg Medical Records [address] [place] [address] Provider, Ccf RE: Request an Appointment Social [...] 1:00 PM EDT Office Visit [facility] [address] [facility] [place] [address] Caitlin Estrada MD [address] [place] [address] New patient eveduin 05/16/2025 10:00 AM EDT Office Visit Rheumatology [address] [facility] [place] [address] Priscilla Mckee MD [address] [facility] [place] [address] Psoriatic Arthritis 07/04/2025 11:30 AM EST Office Visit Neurology [address] [place] [address] Fide Boucher DO [address] [place] [address] 3 month f/u documented as of this encounter Visit Diagnoses Not on filedocumented in this encounter Care Teams Manager Programming Relationship Specialty [place] [address] [place] [address] [place] [address] PCP - General 10/13/09 12/28/12 Adebayo Reddy MD [address] [facility] [address] [place] [address] PCP - General Family Medicine 12/29/12 08/15/14 Ed Alfredo DO [address] [facility] [address] [place] [address] PCP - General Family Medicine 08/16/14 08/31/19 Darrius Orr MD [address] [place] [address] PCP - General Internal Medicine 09/01/19 Darrius Orr MD [address] [place] [address] Referring Internal Medicine 11/16/24 documented as of this encounter
--- OUTSIDE RECORDS SUMMARY | 2025-04-18 22:53 | XMS_ITS | Encounter Summary ---
Author Organization [facility] Address [address] [facility] [address] [place] [address] Care Team Providers Care Tire Setter Name Role Phone Darrius Orr MD Unavailable [phone] Darrius Orr MD Primary Care Provider [phone] Aiden Linares DPM Unavailable [phone] Kai Gutierres DO Unavailable [phone] Encounter Details Date Type Department Care Team (Latest Contact Info) Description 04/13/2025 Travel Social History Tobacco Use Types Packs/Day [...] Department Care Team ( Contact Info) Description 05/05/2025 1:15 PM EDT Office Visit [facility] [address] [place] [address] Bina Faye MD [address] [place] [address] 06/06/2025 2:00 PM EST Office Visit [facility] [place] [facility] [address] [place] [address] 07/18/2025 3:15 PM EST Procedure Visit [facility] [place] [facility] [address] [place] [address] Susie Mary DPM [address] [place] [address] documented as of this encounter Visit Diagnoses Not on filedocumented in this encounter Care Teams Tire Setter Relationship Specialty Start Date End Date Darrius Orr MD [address] [place] [address] PCP - Humana 08/04/19 Darrius Orr MD [address] [place] [address] PCP - General Internal Medicine 12/31/22 Aiden Linares DPM [address] [place] [address] Referring Physician Podiatry 10/30/23 Kai Gutierres DO [address] [facility] [address] [place] [address] Referring Physician Neurology 02/24/24 documented as of this encounter
--- OUTSIDE RECORDS SUMMARY | 2025-04-18 22:53 | XMS_ITS | Encounter Summary ---
Author Organization [facility] Address [address] [place] [address] Care Team Providers Care Pet Walker Name Role Phone Darrius Orr MD Unavailable [phone] Darrius Orr MD Primary Care Provider [phone] Aiden Linares DPM Unavailable [phone] Kai Gutierres DO Unavailable [phone] Encounter Details Date Type Department Care Team (Latest Contact Info) Description 04/06/2025 Travel Social History Tobacco Use Types Packs/Day [...] 05/05/2025 1:15 PM EDT Office Visit [facility] [address] [place] [address] Bina Faye MD [address] [place] [address] 06/06/2025 2:00 PM EST Office Visit [facility] [place] [facility] [address] [place] [address] 07/18/2025 3:15 PM EST Procedure Visit [facility] [place] [facility] [address] [place] [address] Susie Mary DPM [address] [place] [address] documented as of this encounter Visit Diagnoses Not on filedocumented in this encounter Care Teams Pet Walker Relationship Specialty Start Date End Date Darrius Orr MD [address] [place] [address] PCP - Humana 08/04/19 Darrius Orr MD [address] [place] [address] PCP - General Internal Medicine 12/31/22 Aiden Linares DPM [address] [place] [address] Referring Physician Podiatry 10/30/23 Kai Gutierres DO [address] [facility] [address] [place] [address] Referring Physician Neurology 02/24/24 documented as of this encounter
--- OUTSIDE RECORDS SUMMARY | 2025-04-18 22:53 | XMS_ITS | Encounter Summary ---
Author Organization [facility] Address [address] [place] [address] Care Team Providers Care Core Machine Tender Name Role Phone Camila Rodriguez MD Primary Care Provider [phone] Adebayo Reddy MD Primary Care Provider [phone] Ed Alfredo DO Primary Care Provider [phone] Darrius Orr MD Primary Care Provider [phone] Darrius Orr MD Unavailable [phone] Source Comments In the event this information is protected by the Federal Confidentiality of Alcohol and Drug AbusePatient Records regulations: The Federal rules restrict any use of the information to criminally investigate or prosecute any alcohol or drug abuse patient.[facility] Encounter Details Date Type Department Care Team (Late st Contact Info) Description 07/08/2012 Patient Msg Medical Records [address] [place] [address] Provider, Ccf RE: Request an Appointment Social [...] Description 05/06/2025 1:00 PM EDT Office Visit [facility] [address] [facility] [place] [address] Caitlin Estrada MD [address] [place] [address] New patient eveduin 05/16/2025 10:00 AM EDT Office Visit Rheumatology [address] [facility] [place] [address] Priscilla Mckee MD [address] [facility] [place] [address] Psoriatic Arthritis 07/04/2025 11:30 AM EST Office Visit Neurology [address] [place] [address] Fide Boucher DO [address] [place] [address] 3 month f/u documented as of this encounter Visit Diagnoses Not on filedocumented in this encounter Care Teams Core Machine Tender Relationship Specialty [place] [address] [place] [address] [place] [address] PCP - General 10/13/09 12/28/12 Adebayo Reddy MD [address] [facility] [address] [place] [address] PCP - General Family Medicine 12/29/12 08/15/14 Ed Alfredo DO [address] [facility] [address] [place] [address] PCP - General Family Medicine 08/16/14 08/31/19 Darrius Orr MD [address] [place] [address] PCP - General Internal Medicine 09/01/19 Darrius Orr MD [address] [place] [address] Referring Internal Medicine 11/16/24 documented as of this encounter
--- OUTSIDE RECORDS SUMMARY | 2025-04-18 22:53 | XMS_ITS | Encounter Summary ---
Author Organization [facility] Address [address] [facility] [address] [place] [address] Care Team Providers Care Service Writer Name Role Phone Darrius Orr MD Unavailable [phone] Darrius Orr MD Primary Care Provider [phone] Aiden Linares DPM Unavailable [phone] Kai Gutierres DO Unavailable [phone] Encounter Details Date Type Department Care Team (Latest Contact Info) Description 04/18/2025 Travel Social History Tobacco Use Types Packs/Day [...] 05/05/2025 1:15 PM EDT Office Visit [facility] [address] [place] [address] Bina Faye MD [address] [place] [address] 06/06/2025 2:00 PM EST Office Visit [facility] [place] [facility] [address] [place] [address] 07/18/2025 3:15 PM EST Procedure Visit [facility] [place] [facility] [address] [place] [address] Susie Mary DPM [address] [place] [address] documented as of this encounter Visit Diagnoses Not on filedocumented in this encounter Care Teams Service Writer Relationship Specialty Start Date End Date Darrius Orr MD [address] [place] [address] PCP - Humana 08/04/19 Darrius Orr MD [address] [place] [address] PCP - General Internal Medicine 12/31/22 Aiden Linares DPM [address] [place] [address] Referring Physician Podiatry 10/30/23 Kai Gutierres DO [address] [facility] [address] [place] [address] Referring Physician Neurology 02/24/24 documented as of this encounter
--- OUTSIDE RECORDS SUMMARY | 2025-04-18 22:53 | XMS_ITS | Encounter Summary ---
Author Organization [facility] Address [address] [facility] [place] [address] Care Team Providers Care Administrative Office Specialist Name Role Phone Darrius Orr MD Unavailable [phone] Darrius Orr MD Primary Care Provider [phone] Aiden Linares DPM Unavailable [phone] Kai Gutierres DO Unavailable [phone] Encounter Details Date Type Department Care Team (Latest Contact Info) Description 04/14/2025 Travel Social History Tobacco Use Types Packs/Day [...] 05/05/2025 1:15 PM EDT Office Visit [facility] [address] [place] [address] Bina Faye MD [address] [place] [address] 06/06/2025 2:00 PM EST Office Visit [facility] [place] [facility] [address] [place] [address] 07/18/2025 3:15 PM EST Procedure Visit [facility] [place] [facility] [address] [place] [address] Susie Mary DPM [address] [place] [address] documented as of this encounter Visit Diagnoses Not on filedocumented in this encounter Care Teams Administrative Office Specialist Relationship Specialty Start Date End Date Darrius Orr MD [address] [place] [address] PCP - Humana 08/04/19 Darrius Orr MD [address] [place] [address] PCP - General Internal Medicine 12/31/22 Aiden Linares DPM [address] [place] [address] Referring Physician Podiatry 10/30/23 Kai Gutierres DO [address] [facility] [address] [place] [address] Referring Physician Neurology 02/24/24 documented as of this encounter
--- OUTSIDE RECORDS SUMMARY | 2025-04-18 22:53 | XMS_ITS | Encounter Summary ---
Author Organization [facility] Address [address] [place] [address] Care Team Providers Care Metal Slitter Name Role Phone Camila Rodriguez MD Primary Care Provider [phone] Adebayo Reddy MD Primary Care Provider [phone] Ed Alfredo DO Primary Care Provider [phone] Darrius Orr MD Primary Care Provider [phone] Darrius Orr MD Unavailable [phone] Source Comments In the event this information is protected by the Federal Confidentiality of Alcohol and Drug AbusePatient Records regulations: The Federal rules restrict any use of the information to criminally investigate or prosecute any alcohol or drug abuse patient.[facility] Encounter Details Date Type Department Care Team (Late st Contact Info) Description 12/26/2011 Patient Msg Medical Records [address] [place] [address] Provider, Ccf RE: Request an Appointment Social [...] Description 05/06/2025 1:00 PM EDT Office Visit [facility] [address] [facility] [place] [address] Caitlin Estrada MD [address] [place] [address] New patient eveduin 05/16/2025 10:00 AM EDT Office Visit Rheumatology [address] [facility] [place] [address] Priscilla Mckee MD [address] [facility] [place] [address] Psoriatic Arthritis 07/04/2025 11:30 AM EST Office Visit Neurology [address] [place] [address] Fide Boucher DO [address] [place] [address] 3 month f/u documented as of this encounter Visit Diagnoses Not on filedocumented in this encounter Care Teams Metal Slitter Relationship Specialty [place] [address] [place] [address] [place] [address] PCP - General 10/13/09 12/28/12 Adebayo Reddy MD [address] [facility] [address] [place] [address] PCP - General Family Medicine 12/29/12 08/15/14 Ed Alfredo DO [address] [facility] [address] [place] [address] PCP - General Family Medicine 08/16/14 08/31/19 Darrius Orr MD [address] [place] [address] PCP - General Internal Medicine 09/01/19 Darrius Orr MD [address] [place] [address] Referring Internal Medicine 11/16/24 documented as of this encounter
--- OUTSIDE RECORDS SUMMARY | 2025-04-18 22:53 | XMS_ITS | Encounter Summary ---
Author Organization [facility] Address [address] [place] [address] [place] [address] Care Team Providers Care Invoice Coder Name Role Phone Darrius Orr MD Unavailable [phone] Darrius Orr MD Primary Care Provider [phone] Aiden Linares DPM Unavailable [phone] Kai Gutierres DO Unavailable [phone] Reason for Referral * Outpatient Surgery (Routine) - Authorized Specialty Diagnoses / Procedures Referred By Contac t Referred To Contact Ophthalmology Diagnoses Age-related nuclear cataract of both eyes Procedures NE OFFICE/OUTPATIENT [facility] MDM 60 MINUTES Bina Faye MD [address] [place] [address] Phone: tel: fax: Bina Faye MD [address] [place] [address] Phone: tel: fax: Referral ID Status Reason Start Date Expiration Date Visits Requested Visits Authorized [id number] Authorized Perform Procedure 04/14/2025 10/11/2025 2 2 Encounter Details Date Type Department Care Team ([facility] Contact Info) Description 04/14/2025 Orders Only [facility] [address] [place] [address] Bina Faye MD [address] [place] [address] Age-related nuclear cataract of both eyes Social History Tobacco Use Types Packs/Day Years [...] Description 05/05/2025 1:15 PM EDT Office Visit [facility] [address] [place] [address] Bina Faye MD [address] [place] [address] 06/06/2025 2:00 PM EST Office Visit [facility] [place] [facility] [address] [place] [address] 07/18/2025 3:15 PM EST Procedure Visit [facility] [place] [facility] [address] [place] [address] Susie Mary DPM [address] [place] [address] Scheduled Referrals Name Type Priority Associated Diagnoses Order Schedule Ambulatory referral to Ophthalmology Outpatient Referral Routine Age-related nuclear cataract of both eyes Expected: 04/14/2025 (Approximate), Expires: 10/12/2025 documented as of this encounter Visit Diagnoses Diagnosis Age-related nuclear cataract of both eyes documented in this encounter Care Teams Invoice Coder Relationship Specialty Start Date End Date Darrius Orr MD [address] [place] [address] PCP - Humana 08/04/19 Darrius Orr MD [address] [place] [address] PCP - General Internal Medicine 12/31/22 Aiden Linares DPM [address] [facility] [address] [place] [address] Referring Physician Podiatry 10/30/23 Kai Gutierres DO [address] [facility] [address] [place] [address] Referring Physician Neurology 02/24/24 documented as of this encounter
--- OUTSIDE RECORDS SUMMARY | 2025-04-18 22:53 | XMS_ITS | Encounter Summary ---
Author Organization [facility] Address [address] [place] [address] Care Team Providers Care Check Inspector Name Role Phone Camila Rodriguez MD Primary Care Provider [phone] Adebayo Reddy MD Primary Care Provider [phone] Ed Alfredo DO Primary Care Provider [phone] Darrius Orr MD Primary Care Provider [phone] Darrius Orr MD Unavailable [phone] Source Comments In the event this information is protected by the Federal Confidentiality of Alcohol and Drug AbusePatient Records regulations: The Federal rules restrict any use of the information to criminally investigate or prosecute any alcohol or drug abuse patient.[facility] Encounter Details Date Type Department Care Team (Late st Contact Info) Description 11/23/2011 Patient Msg Medical Records [address] [place] [address] Provider, Ccf RE: Appointment Cancellation Request Social [...] Description 05/06/2025 1:00 PM EDT Office Visit [facility] [address] [facility] [place] [address] Caitlin Estrada MD [address] [place] [address] New patient eveduin 05/16/2025 10:00 AM EDT Office Visit Rheumatology [address] [facility] [place] [address] Priscilla Mckee MD [address] [facility] [place] [address] Psoriatic Arthritis 07/04/2025 11:30 AM EST Office Visit Neurology [address] [place] [address] Fide Boucher DO [address] [place] [address] 3 month f/u documented as of this encounter Visit Diagnoses Not on filedocumented in this encounter Care Teams Check Inspector Relationship Specialty [place] [address] [place] [address] [place] [address] PCP - General 10/13/09 12/28/12 Adebayo Reddy MD [address] [facility] [address] [place] [address] PCP - General Family Medicine 12/29/12 08/15/14 dE Alfredo DO [address] [facility] [address] [place] [address] PCP - General Family Medicine 08/16/14 08/31/19 Darrius Orr MD [address] [place] [address] PCP - General Internal Medicine 09/01/19 Darrius Orr MD [address] [place] [address] Referring Internal Medicine 11/16/24 documented as of this encounter
--- OUTSIDE RECORDS SUMMARY | 2025-04-18 22:53 | XMS_ITS | Encounter Summary ---
Author Organization [facility] Address [address] [place] [address] Care Team Providers Care Microsoft Exchange Architect Name Role Phone Camila Rodriguez MD Primary Care Provider [phone] Adebayo Reddy MD Primary Care Provider [phone] Ed Alfredo DO Primary Care Provider [phone] Darrius Orr MD Primary Care Provider [phone] Darrius Orr MD Unavailable [phone] Source Comments In the event this information is protected by the Federal Confidentiality of Alcohol and Drug AbusePatient Records regulations: The Federal rules restrict any use of the information to criminally investigate or prosecute any alcohol or drug abuse patient.[facility] Encounter Details Date Type Department Care Team (Late st Contact Info) Description 11/19/2011 Patient Msg Medical Records [address] [place] [address] Provider, Ccf RE: Request an Appointment Social [...] Office Visit [facility] [address] [facility] [address] Caitlin Estrada MD [address] [place] [address] New patient eveduin 05/16/2025 10:00 AM EDT Office Visit Rheumatology [address] [facility] [address] Priscilla Mckee MD [address] [facility] [place] [address] Psoriatic Arthritis 07/04/2025 11:30 AM EST Office Visit Neurology [address] [place] [address] Fide Boucher DO [address] [place] [address] 3 month f/u documented as of this encounter Visit Diagnoses Not on filedocumented in this encounter Care Teams Microsoft Exchange Architect Relationship Specialty Start [place] [address] [place] [address] [place] [address] PCP - General 10/13/09 12/28/12 Adebayo Reddy MD [address] [facility] [address] [place] [address] PCP - General Family Medicine 12/29/12 08/15/14 Ed Alfredo DO [address] [facility] [address] [place] [address] PCP - General Family Medicine 08/16/14 08/31/19 Darrius Orr MD [address] [place] [address] PCP - General Internal Medicine 09/01/19 Darrius Orr MD [address] [place] [address] Referring Internal Medicine 11/16/24 documented as of this encounter
--- OUTSIDE RECORDS SUMMARY | 2025-04-18 22:53 | XMS_ITS | Encounter Summary ---
Author Organization [facility] Address [address] [place] [address] Care Team Providers Care Lamp Decorator Name Role Phone Camila Rodriguez MD Primary Care Provider [phone] Adebayo Reddy MD Primary Care Provider [phone] Ed Alfredo DO Primary Care Provider + [phone] Darrius Orr MD Primary Care Provider [phone] Darrius Orr MD Unavailable [phone] Source Comments In the event this information is protected by the Federal Confidentiality of Alcohol and Drug AbusePatient Records regulations: The Federal rules restrict any use of the information to criminally investigate or prosecute any alcohol or drug abuse patient.[facility] Encounter Details Date Type Department Care Team (Late st Contact Info) Description 01/13/2012 Patient Msg Medical Records [address] [place] [address] Provider, Ccf Appointment Cancellation Request Social History [...] PM EDT Office Visit [facility] [address] [facility] [place] [address] Caitlin Estrada MD [address] [place] [address] New patient eveduin 05/16/2025 10:00 AM EDT Office Visit Rheumatology [address] [facility] [place] [address] Priscilla Mckee MD [address] [facility] [place] [address] Psoriatic Arthritis 07/04/2025 11:30 AM EST Office Visit Neurology [address] [place] [address] Fide Boucher DO [address] [place] [address] 3 month f/u documented as of this encounter Visit Diagnoses Not on filedocumented in this encounter Care Teams Lamp Decorator Relationship Specialty Start Date End Date Camila Rodriguez MD [address] [place] [address] [place] [address] PCP - General 10/13/09 12/28/12 Adebayo Reddy MD [address] [facility] [address] [place] [address] PCP - General Family Medicine 12/29/12 08/15/14 dE Alfredo DO [address] [facility] [address] [place] [address] PCP - General Family Medicine 08/16/14 08/31/19 Darrius Orr MD [address] [place] [address] PCP - General Internal Medicine 09/01/19 Darrius Orr MD [address] [place] [address] Referring Internal Medicine 11/16/24 documented as of this encounter
--- OUTSIDE RECORDS SUMMARY | 2025-04-18 22:53 | XMS_ITS | Encounter Summary ---
Author Organization [facility] Address [address] [place] [address] Care Team Providers Care Security Business Analyst Name Role Phone Camila Rodriguez MD Primary Care Provider [phone] Adebayo Reddy MD Primary Care Provider [phone] Ed Alfredo DO Primary Care Provider + [phone] Darrius Orr MD Primary Care Provider [phone] Darrius Orr MD Unavailable [phone] Source Comments In the event this information is protected by the Federal Confidentiality of Alcohol and Drug AbusePatient Records regulations: The Federal rules restrict any use of the information to criminally investigate or prosecute any alcohol or drug abuse patient.[facility] Encounter Details Date Type Department Care Team (Late st Contact Info) Description 10/26/2011 Patient Msg Medical Records [address] [place] [address] Provider, Ccf RE: Request an Appointment Social [...] Description 05/06/2025 1:00 PM EDT Office Visit [facility] [address] [facility] [address] Caitlin Estrada MD [address] [place] [address] New patient eveduin 05/16/2025 10:00 AM EDT Office Visit Rheumatology [address] [facility] [place] [address] Priscilla Mckee MD [address] [facility] [place] [address] Psoriatic Arthritis 07/04/2025 11:30 AM EST Office Visit Neurology [address] [place] [address] Fide Boucher DO [address] [place] [address] 3 month f/u documented as of this encounter Visit Diagnoses Not on filedocumented in this encounter Care Teams Security Business Analyst Relationship Specialty [place] [address] [place] [address] [place] [address] PCP - General 10/13/09 12/28/12 Adebayo Reddy MD [address] [facility] [address] [place] [address] PCP - General Family Medicine 12/29/12 08/15/14 Ed Alfredo DO [address] [facility] [address] [place] [address] PCP - General Family Medicine 08/16/14 08/31/19 Darrius Orr MD [address] [place] [address] PCP - General Internal Medicine 09/01/19 Darrius Orr MD [address] [place] [address] Referring Internal Medicine 11/16/24 documented as of this encounter
--- OUTSIDE RECORDS SUMMARY | 2025-04-18 22:53 | XMS_ITS | Encounter Summary ---
Author Organization [facility] Address [address] [place] [address] Care Team Providers Care Hydroelectric Operator Name Role Phone Camila Rodriguez MD Primary Care Provider [phone] Lizeth Tillman MD Primary Care Provider [phone] Clinton Gonzales MD Primary Care Provider + [phone] Rich Chun MD Primary Care Provider [phone] Wally Monroe MD Primary Care Provider [phone] Rich Chun MD Primary Care Provider [phone] Wally Monroe MD Primary Care Provider [phone] Rich Chun MD Primary Care Provider [phone] Adebayo Reddy MD Primary Care Provider [phone] Ed Alfredo DO Primary Care Provider [phone] Darrius Orr MD Primary Care Provider [phone] Darrius Orr MD Unavailable [phone] Source Comments In the event this information is protected by the Federal Confidentiality of Alcohol and Drug AbusePatient Records regulations: The Federal rules restrict any use of the information to criminally investigate or prosecute any alcohol or drug abuse patient.[facility] Encounter Details Date Type Department Care Team (Late st Contact Info) Description 01/27/2006 Patient Msg Medical Records [address] [place] [address] Provider, Ccf RE: Appointment Cancellation Request Social [...] Description 05/06/2025 1:00 PM EDT Office Visit [facility] [address] [facility] [place] [address] Caitlin Estrada MD [address] [place] [address] New patient eveduin 05/16/2025 10:00 AM EDT Office Visit Rheumatology [address] [facility] [place] [address] Priscilla Mckee MD [address] [facility] [place] [address] Psoriatic Arthritis 07/04/2025 11:30 AM EST Office Visit Neurology [address] [place] [address] Fide Boucher DO [address] [place] [address] 3 month f/u documented as of this encounter Visit Diagnoses Not on filedocumented in this encounter Care Teams Hydroelectric Operator Relationship Specialty Start Date End Date Camila Rodriguez MD [address] [facility] [place] [address] PCP - General 10/13/09 12/28/12 Lizeth [place] MD [address] [facility] [place] [address] PCP - General 08/16/09 10/12/09 Clinton [place] MD [address] [facility] [place] [address] PCP - General 09/02/08 08/15/09 Rich Chun MD [address] [place] [address] PCP - General 11/27/06 09/01/08 Wally [place] MD [address] [place] [address] PCP - General 10/29/06 11/26/06 Rich Chun MD [address] [place] [address] PCP - General 10/28/06 10/28/06 Wally Monroe MD [address] [place] [address] PCP - General 10/15/06 10/27/06 Rich Chun MD [address] [facility] [place] [address] PCP - General 11/07/05 10/14/06 Adebayo Reddy MD [address] [place] [address] PCP - General Family Medicine 12/29/12 08/15/14 Ed Alfredo DO [address] [place] [address] PCP - General Family Medicine 08/16/14 08/31/19 Darrius Orr MD [address] [place] [address] PCP - General Internal Medicine 09/01/19 Darrius Orr MD [address] [place] [address] Referring Internal Medicine 11/16/24 documented as of this encounter
--- OUTSIDE RECORDS SUMMARY | 2025-04-18 22:53 | XMS_ITS | Encounter Summary ---
Author Organization [facility] Address [address] [facility] [place] [address] Care Team Providers Care Computer Education Professor Name Role Phone Darrius Orr MD Unavailable [phone] Darrius Orr MD Primary Care Provider [phone] Aiden Linares DPM Unavailable [phone] Kai Gutierres DO Unavailable [phone] Encounter Details Date Type Department Care Team (Late Contact Info) Description 03/22/2025 Orders Only [facility] [place] [facility] [address] [facility] [address] [place] [address] Unallocated, Noms Provider, [address] [place] [address] Social History Tobacco Use Types Packs/Day Years [...] 05/05/2025 1:15 PM EDT Office Visit [facility] [address] [place] [address] Bina Faye MD [address] [place] [address] 06/06/2025 2:00 PM EST Office Visit [facility] [address] [place] [address] 07/18/2025 3:15 PM EST Procedure Visit [facility] [place] [facility] [address] [place] [address] Susie Mary DPM [address] [place] [address] documented as of this encounter Procedures Procedure Name Priority Date/Time Associated Diagnosis Comments CBC WITH AUTO DIFFERENTIAL Routine 03/21/2025 11:33 AM EDT BASIC METABOLIC PANEL Routine 03/21/2025 11:33 AM EDT documented in this encounter Results * CBC auto differential (03/21/2025 11:33 AM EDT) Blood Venous blood specimen / Unknown us Noms Provider Unallocated MD LAB BLOOD ORDERABLE S Final Result * Basic metabolic panel (03/21/2025 11:33 AM EDT) Blood Venous blood specimen / Unknown us Noms Provider Unallocated MD LAB BLOOD ORDERABLE S Final Result documented in this encounter Visit Diagnoses Not on filedocumented in this encounter Care Teams Computer Education Professor Relationship Specialty Start Date End Date Darrius Orr MD [address] [place] [address] PCP - [employer] 08/04/19 Darrius Orr MD [address] [place] [address] PCP - General Internal Medicine 12/31/22 Aiden Linares DPM [address] [place] [address] Referring Physician Podiatry 10/30/23 Kai Gutierres DO [address] [facility] [address] [place] [address] Referring Physician Neurology 02/24/24 documented as of this encounter
--- OUTSIDE RECORDS SUMMARY | 2025-04-18 22:53 | XMS_ITS | Encounter Summary ---
Author Organization [facility] Address [address] [place] [address] Care Team Providers Care Ip Litigation Associate Name Role Phone Camila Rodriguez MD Primary Care Provider [phone] Adebayo Reddy MD Primary Care Provider [phone] Ed Alfredo DO Primary Care Provider [phone] Darrius Orr MD Primary Care Provider [phone] Darrius Orr MD Unavailable [phone] Source Comments In the event this information is protected by the Federal Confidentiality of Alcohol and Drug AbusePatient Records regulations: The Federal rules restrict any use of the information to criminally investigate or prosecute any alcohol or drug abuse patient.[facility] Encounter Details Date Type Department Care Team (Late st Contact Info) Description 05/09/2012 Patient Msg Medical Records [address] [place] [address] Provider, Ccf RE: Request an Appointment Social [...] Description 05/06/2025 1:00 PM EDT Office Visit [facility] [address] [facility] [place] [address] Caitlin Estrada MD [address] [place] [address] New patient eveduin 05/16/2025 10:00 AM EDT Office Visit Rheumatology 57[address] [facility] [place] [address] Priscilla Mckee MD [address] [facility] [place] [address] Psoriatic Arthritis 07/04/2025 11:30 AM EST Office Visit Neurology [address] [place] [address] Fide Boucher DO [address] [place] [address] 3 month f/u documented as of this encounter Visit Diagnoses Not on filedocumented in this encounter Care Teams Ip Litigation Associate Relationship Specialty [place] [address] [place] [address] [place] [address] PCP - General 10/13/09 12/28/12 Adebayo Reddy MD [address] [facility] [address] [place] [address] PCP - General Family Medicine 12/29/12 08/15/14 Ed Alfredo DO [address] [facility] [address] [place] [address] PCP - General Family Medicine 08/16/14 08/31/19 Darrius Orr MD [address] [place] [address] PCP - General Internal Medicine 09/01/19 Darrius Orr MD [address] [place] [address] Referring Internal Medicine 11/16/24 documented as of this encounter
--- OUTSIDE RECORDS SUMMARY | 2025-04-18 22:53 | XMS_ITS | Clinical Summary ---
Author Organization [facility] Address [address] [place] [address] Phone Care Team Providers Care Clinical Pharmacist Name Role Phone Darrius Orr MD Primary [...] 1990 DTaP/Tdap/Td Vaccines (1 - Tdap) 1993 PSA Prostate Cancer Screening 2021 Pneumococcal Vaccine (1 of 1 - PCV) 2021 Zoster Vaccines (1 of 2) 2021 COVID-19 Vaccine (1 - 2023-2 5 season) 2025 Influenza Vaccine (#1) 2025 HIB Vaccines Aged Out No longer [...] age to complete this topic Care Teams Clinical Pharmacist Relationship Specialty Start Date End Date Darrius Orr MD [address] [place] [address] PCP - General 01/28/19
--- OUTSIDE RECORDS SUMMARY | 2025-04-18 22:53 | XMS_ITS | Encounter Summary ---
Author Organization [facility] Address [address] [facility] [place] [address] Care Team Providers Care Pharmacy Technician Inpatient Name Role Phone Darrius Orr MD Unavailable [phone] Darrius Orr MD Primary Care Provider [phone] Aiden Linares DPM Unavailable [phone] Kai Gutierres DO Unavailable [phone] Reason for Visit * Reason Onset Date Comments On-Call 04/07/2025 Encounter Details Date Type Department Care Team ([facility] Contact Info) Description 04/07/2025 Telephone [facility] [place] [facility] [address] [facility] [address] [place] [address] Darrius Solares, [address] [facility] [address] [place] [address] On-Call Social History Tobacco Use Types Packs/Day Years [...] Encounter - Darci Montgomery MA - 04/08/2025 1:41 PM EDT Patient informed of the below information * Telephone Encounter - RICKY Long - 04/08/2025 11:38 AM EDT He really should go back to ER if he is in so much pain he took 5 percocet and 600 mg of lyrica at once, that is not safe and because of how much pain he is in he needs to go to ER where they can provide more immediate pain relief. * Telephone Encounter - Darci Montgomery MA - 04/08/2025 11:23 AM EDT He is getting his tooth pulled at noon today. Is he still able to come in and get a toradol injection after the procedure? * Telephone Encounter - Darci Montgomery MA - 04/08/2025 11:20 AM EDT Patient called back and said he will call after his dental appointment. * Telephone Encounter - Darci Montgomery MA - 04/08/2025 8:48 AM EDT Left vm requesting a callback from patient to come in for a toradol shot. * Telephone Encounter - Darrius Orr MD - 04/08/2025 7:58 AM EDT He can be contacted to come in for a Toradol shot this morning. * Telephone Encounter - Alta Golden - 04/08/2025 7:28 AM EDT Pt called back again at 7:30am stating he woke up in severe pain from abscess. Pt was crying and upset saying he doesn't know what to do. Pt is getting tooth pulled at 12pm today. Pt does not want towait and is asking if he can get an appt with the office as soon as possible today just to get a Toradol shot or some type of pain relief. Last night I did speak with Dr. Solares and at that time he stated there is nothing he can do as Pt was already at the ED and being discharged at that time. Pt will call and speak with office once they open to see if anything can be done. Pt was talking very negatively this morning and saying He wants to d/t how much pain he is in. * Telephone Encounter - Alta Golden - 04/07/2025 9:36 PM EDT Pt called OA stating he is at [facility] ED and was there yesterday too for a tooth abscess. Pt sugar 95.Pt has taken 600mg Amy and Percocet 5 tabs were taken all at once. Pt stated ED Will only give lidocaine and are discharging him as I am speaking to him. He has used 3 bottles of orajel. Pt was very upset and crying. Stating he can't eat and is in a lot of pain. He would On-call contacted to see what can be done. Sent Dr. Solares secure chat. documented in this encounter Plan of Treatment Upcoming Encounters Date Type Department Care Team (Late st Contact Info) Description 05/05/2025 1:15 PM EDT Office Visit [facility] [address] [facility] [address] Bina Faye MD [address] [place] [address] 06/06/2025 2:00 PM EST Office Visit [facility] [place] [facility] [address] [place] [address] 07/18/2025 3:15 PM EST Procedure Visit [facility] [place] [facility] [address] [place] [address] Susie Mary DPM [address] [place] [address] documented as of this encounter Visit Diagnoses Not on filedocumented in this encounter Care Teams Pharmacy Technician Inpatient Relationship Specialty Start Date End Date Darrius Orr MD [address] [place] [address] PCP - [employer] 08/04/19 Darrius Orr MD [address] [place] [address] PCP - General Internal Medicine 12/31/22 Aiden Linares DPM [address] [place] [address] Referring Physician Podiatry 10/30/23 Kai Gutierres DO [address] [facility] [address] [place] [address] Referring Physician Neurology 02/24/24 documented as of this encounter
--- OUTSIDE RECORDS SUMMARY | 2025-04-18 22:53 | XMS_ITS | Encounter Summary ---
Author Organization [facility] Address [address] [facility] [place] [address] Care Team Providers Care Application Support Manager Name Role Phone Darrius Orr MD Unavailable [phone] Darrius Orr MD Primary Care Provider [phone] Aiden Linares DPM Unavailable [phone] Kai Gutierres DO Unavailable [phone] Encounter Details Date Type Department Care Team ([facility] Contact Info) Description 03/23/2025 Results [facility] [address] [facility] [address] [place] [address] Darrius Orr MD [address] [facility] [address] [place] [address] Basic metabolic panel Social History Tobacco Use Types Packs/Day Years [...] Miscellaneous Notes * Result Encounter Note - Noa Hansen LPN - 03/23/2025 4:47 PM EDT Pt had spoken with Annalise earlier and was given results * Result Encounter Note - Darrius Orr MD - 03/23/2025 3:40 PM EDT Please call and tell him the sugar is down in the 300's and the potassium is good. Sodium is increasing. documented in this encounter Plan of Treatment Upcoming Encounters Date Type Department Care Team (Late st Contact Info) Description 05/05/2025 1:15 PM EDT Office Visit [facility] [address] [place] [address] Bina Faye MD [address] [place] [address] 06/06/2025 2:00 PM EST Office Visit [facility] [place] [facility] [address] [place] [address] 07/18/2025 3:15 PM EST Procedure Visit [facility] [place] [facility] [address] [place] [address] Suise Mary DPM [address] [place] [address] documented as of this encounter Visit Diagnoses Not on filedocumented in this encounter Care Teams Application Support Manager Relationship Specialty Start Date End Date Darrius Orr MD [address] [place] [address] PCP - [employer] 08/04/19 Darrius Orr MD [address] [place] [address] PCP - General Internal Medicine 12/31/22 Aiden Linares DPM [address] [facility] [address] [place] [address] Referring Physician Podiatry 10/30/23 Kai Gutierres DO [address] [facility] [address] [place] [address] Referring Physician Neurology 02/24/24 documented as of this encounter
--- OUTSIDE RECORDS SUMMARY | 2025-04-18 22:53 | XMS_ITS | Encounter Summary ---
Author Organization [facility] Address [address] [place] [address] Care Team Providers Care Physical Scientist Name Role Phone Camila Rodriguez MD Primary Care Provider [phone] Adebayo Reddy MD Primary Care Provider [phone] Ed Alfredo DO Primary Care Provider [phone] Darrius Orr MD Primary Care Provider [phone] Darrius Orr MD Unavailable [phone] Source Comments In the event this information is protected by the Federal Confidentiality of Alcohol and Drug AbusePatient Records regulations: The Federal rules restrict any use of the information to criminally investigate or prosecute any alcohol or drug abuse patient.[facility] Encounter Details Date Type Department Care Team (Late st Contact Info) Description 01/13/2012 Patient Msg Medical Records [address] [place] [address] Provider, Ccf RE: Appointment Cancellation Request Social [...] Description 05/06/2025 1:00 PM EDT Office Visit [facility] [address] [facility] [place] [address] Caitlin Estrada MD [address] [place] [address] New patient eveduin 05/16/2025 10:00 AM EDT Office Visit Rheumatology [address] [facility] [place] [address] Priscilla Mckee MD [address] [facility] [place] [address] Psoriatic Arthritis 07/04/2025 11:30 AM EST Office Visit Neurology [address] [place] [address] Fide Boucher DO [address] [place] [address] 3 month f/u documented as of this encounter Visit Diagnoses Not on filedocumented in this encounter Care Teams Physical Scientist Relationship Specialty [place] [address] [place] [address] [place] [address] PCP - General 10/13/09 12/28/12 Adebayo Reddy MD [address] [facility] [address] [place] [address] PCP - General Family Medicine 12/29/12 08/15/14 Ed Alfredo DO [address] [facility] [address] [place] [address] PCP - General Family Medicine 08/16/14 08/31/19 Darrius Orr MD [address] [place] [address] PCP - General Internal Medicine 09/01/19 Darrius Orr MD [address] [place] [address] Referring Internal Medicine 11/16/24 documented as of this encounter
--- OUTSIDE RECORDS SUMMARY | 2025-04-18 22:54 | XMS_ITS | Encounter Summary ---
Author Organization [facility] Address [facility] [place] [address] Care Team Providers Care Commercial Lines Underwriter Name Role Phone Camila Rodriguez MD Primary Care Provider + [phone] Lizeth Tillman MD Primary Care Provider [phone] Clinton Gonzales MD Primary Care Provider + [phone] Rich Chun MD Primary Care Provider + [phone] Adebayo Reddy MD Primary Care Provider +[phone] Ed Alfredo DO Primary Care Provider +[phone] Darrius Orr MD Primary Care Provider +[phone] Darrius Orr MD Unavailable [phone] Source Comments In the event this information is protected by the Federal Confidentiality of Alcohol and Drug AbusePatient Records regulations: The Federal rules restrict any use of the information to criminally investigate or prosecute any alcohol or drug abuse patient.[facility] Encounter Details Date Type Department Care Team (Late st Contact Info) Description 04/16/2007 Patient Msg Medical Records [address] [place] [address] Provider, Ccf RE: Appointment Cancellation Request Social [...] 1:00 PM EDT Office Visit [facility] [address] [facility] [place] [address] Caitlin Estrada MD [address] [place], [place] [id number] New patient eveduin 05/16/2025 10:00 AM EDT Office Visit Rheumatology 5700 [facility] [place] [address] Priscilla Mckee MD 5700 [facility] [place] [place] [address] Psoriatic Arthritis 07/04/2025 11:30 AM EST Office Visit Neurology [address] [place] [address] Fide Boucher DO [address] [place] [address] 3 month f/u documented as of this encounter Visit Diagnoses Not on filedocumented in this encounter Care Teams Commercial Lines Underwriter Relationship Specialty Start Date End Date Camila Rodriguez MD [address] [place] [address] [place] [address] PCP - General 10/13/09 12/28/12 Lizeth Tillman MD [address] [place] [address] [place] [address] PCP - General 08/16/09 10/12/09 Clinton Gonzales MD [address] [facility] [place] [address] PCP - General 09/02/08 08/15/09 Rich Chun MD [address] [facility] [place] [address] PCP - General 11/27/06 09/01/08 Adebayo Reddy MD [address] [facility] [place] [address] PCP - General Family Medicine 12/29/12 08/15/14 Ed Alfredo DO [address] [facility] [place] [address] PCP - General Family Medicine 08/16/14 08/31/19 Darrius Orr MD [address] [place] [address] PCP - General Internal Medicine 09/01/19 Darrius Orr MD [address] [place] [address] Referring Internal Medicine 11/16/24 documented as of this encounter
--- OUTSIDE RECORDS SUMMARY | 2025-04-18 22:54 | XMS_ITS | Encounter Summary ---
Author Organization [facility] Address [address] [facility] [facility] [place] [address] Care Team Providers Care Antique Jewelry Repairer Name Role Phone Darrius Orr MD Unavailable [phone] Darrius Orr MD Primary Care Provider [phone] Aiden Linares DPM Unavailable [phone] Kai Gutierres DO Unavailable [phone] Encounter Details Date Type Department Care Team ([facility] Contact Info) Description 07/21/2023 Orders Only [facility] [address] [facility] [address] [place] [id number] A, Unknown Practice [address] [place], [place] [id number] Social History Tobacco Use Types Packs/Day Years Used Date Smoking Tobacco: Every Day Cigarettes 0.3 35.7 Started: 08/04/1989 Smokeless Tobacco: Never Comments:5 or [...] 05/05/2025 1:15 PM EDT Office Visit [facility] [address] [place] [address] Bina Faye MD [address] [place] [address] 06/06/2025 2:00 PM EST Office Visit [facility] [address] [place] [address] 07/18/2025 3:15 PM EST Procedure Visit [facility] [address] [place] [phone] Susie Mary DPM [address] [place] [address] documented as of this encounter Procedures Procedure Name Priority Date/Time Associated Diagnosis Comments SCANNED LABS Routine 07/18/2023 10:31 AM EST documented in this encounter Results * SCANNED LABS (07/18/2023 10:31 AM EST) Unknown Practice A LAB CHG PERFORMABLES Final Re sult documented in this encounter Visit Diagnoses Not on filedocumented in this encounter Care Teams Antique Jewelry Repairer Relationship Specialty Start Date End Date Darrius Orr MD [address] [place] [address] PCP - [employer] 08/04/19 Darrius Orr MD [address] [place] [address] PCP - General Internal Medicine 12/31/22 Aiden Linares DPM [address] [facility] [address] [place] [address] Referring Physician Podiatry 10/30/23 Kai Gutierres DO [address] [facility] [address] [place] [address] Referring Physician Neurology 02/24/24 documented as of this encounter
--- OUTSIDE RECORDS SUMMARY | 2025-04-18 22:54 | XMS_ITS | Encounter Summary ---
Author Organization [facility] Address [facility] [place] [address] Care Team Providers Care Research Dairy Farm Supervisor Name Role Phone Camila Rodriguez MD Primary Care Provider + [phone] Lizeth Tillman MD Primary Care Provider [phone] Clinton Gonzales MD Primary Care Provider + [phone] Rich Chun MD Primary Care Provider + [phone] Adebayo Reddy MD Primary Care Provider +[phone] Ed Alfredo DO Primary Care Provider [phone] Darrius Orr MD Primary Care Provider [phone] Darrius Orr MD Unavailable [phone] Source Comments In the event this information is protected by the Federal Confidentiality of Alcohol and Drug AbusePatient Records regulations: The Federal rules restrict any use of the information to criminally investigate or prosecute any alcohol or drug abuse patient.[facility] Encounter Details Date Type Department Care Team (Late st Contact Info) Description 03/07/2008 Patient Msg Medical Records [address] [place] [address] Provider, Ccf RE: Appointment Cancellation Request Social [...] Description 05/06/2025 1:00 PM EDT Office Visit [facility] [address] [facility] [place] [address] Caitlin Estrada MD [address] [place], [place] [address] New patient eveduin 05/16/2025 10:00 AM EDT Office Visit Rheumatology 5700 [facility] [place] [address] Priscilla Mckee MD [address] [facility] [place] [place] [address] Psoriatic Arthritis 07/04/2025 11:30 AM EST Office Visit Neurology [address] [place] [address] Fide Boucher DO [address] [place] [address] 3 month f/u documented as of this encounter Visit Diagnoses Not on filedocumented in this encounter Care Teams Research Dairy Farm Supervisor Relationship Specialty Start Date End Date Camila Rodriguez MD [address] [place] [address] [place] [address] PCP - General 10/13/09 12/28/12 Lizeth Tillman MD [address] [place] [address] [place] [address] PCP - General 08/16/09 10/12/09 Clinton Gonzales MD [address] [facility] [place] [address] PCP - General 09/02/08 08/15/09 Rich Chun MD [address] [facility] [place] [address] PCP - General 11/27/06 09/01/08 Adebayo Reddy MD [address] [facility] [place] [address] PCP - General Family Medicine 12/29/12 08/15/14 Ed Alfredo DO [address] [facility]6 [place] [address] PCP - General Family Medicine 08/16/14 08/31/19 Darrius Orr MD [address] [place] [address] PCP - General Internal Medicine 09/01/19 Darrius Orr MD [address] [place] [address] Referring Internal Medicine 11/16/24 documented as of this encounter
--- OUTSIDE RECORDS SUMMARY | 2025-04-18 22:54 | XMS_ITS | Encounter Summary ---
Author Organization [facility] Address [facility] [place] [address] Care Team Providers Care Lift Supervisor Name Role Phone Camila Rodriguez MD Primary Care Provider + [phone] Lizeth Tillman MD Primary Care Provider [phone] Clinton Gonzales MD Primary Care Provider + [phone] Rich Chun MD Primary Care Provider + [phone] Adebayo Reddy MD Primary Care Provider +[phone] Ed Alfredo DO Primary Care Provider +[phone] Darrius Orr MD Primary Care Provider [phone] Darrius Orr MD Unavailable [phone] Source Comments In the event this information is protected by the Federal Confidentiality of Alcohol and Drug AbusePatient Records regulations: The Federal rules restrict any use of the information to criminally investigate or prosecute any alcohol or drug abuse patient.[facility] Encounter Details Date Type Department Care Team (Late st Contact Info) Description 11/27/2006 Patient Msg Medical Records [address] [place] [address] Provider, Ccf RE: Appointment Cancellation Request Social [...] Description 05/06/2025 1:00 PM EDT Office Visit [facility] [address] [facility] [place] [address] Caitlin Estrada MD [address] [place], [place] [id number] New patient eveduin 05/16/2025 10:00 AM EDT Office Visit Rheumatology 5700 [facility] [place] [address] Priscilla Mckee MD [address] [facility] [place] [address] Psoriatic Arthritis 07/04/2025 11:30 AM EST Office Visit Neurology [address] [place] [address] Fide Boucher DO [address] [place] [address] 3 month f/u documented as of this encounter Visit Diagnoses Not on filedocumented in this encounter Care Teams Lift Supervisor Relationship Specialty Start Date End Date Camila Rodriguez MD [address] [place] [address] [place] [address] PCP - General 10/13/09 12/28/12 Lizeth Tillman MD [address] [place] [address] [place] [address] PCP - General 08/16/09 10/12/09 Clinton Gonzales MD [address] [facility] [place] [address] PCP - General 09/02/08 08/15/09 Rich Chun MD [address] [facility] [place] [address] PCP - General 11/27/06 09/01/08 Adebayo Reddy MD [address] [facility] [place] [address] PCP - General Family Medicine 12/29/12 08/15/14 Ed Alfredo DO [address] [facility]6 [place] [address] PCP - General Family Medicine 08/16/14 08/31/19 Darrius Orr MD [address] [place] [address] PCP - General Internal Medicine 09/01/19 Darrius Orr MD [address] [place] [address] Referring Internal Medicine 11/16/24 documented as of this encounter
--- OUTSIDE RECORDS SUMMARY | 2025-04-18 22:54 | XMS_ITS | Encounter Summary ---
Author Organization [facility] Address [address] [place] [address] Care Team Providers Care Audio/Video Technician Name Role Phone Adebayo Reddy MD Primary Care Provider [phone] Ed Alfredo DO Primary Care Provider [phone] Darrius Orr MD Primary Care Provider [phone] Darrius Orr MD Unavailable [phone] Source Comments In the event this information is protected by the Federal Confidentiality of Alcohol and Drug AbusePatient Records regulations: The Federal rules restrict any use of the information to criminally investigate or prosecute any alcohol or drug abuse patient.[facility] Encounter Details Date Type Department Care Team (Late st Contact Info) Description 01/25/2013 Patient Msg Medical Records [address] [place] [address] Provider, Ccf RE: Request an Appointment Social [...] 1:00 PM EDT Office Visit [facility] 5700 [place] [address] Caitlin Estrada MD [address] [place] [address] New patient eval 05/16/2025 10:00 AM EDT Office Visit Rheumatology [address] [place] [address] Priscilla Mckee MD [address] [place] [address] Psoriatic Arthritis 07/04/2025 11:30 AM EST Office Visit Neurology [address] [place] [address] Fide Boucher DO [address] [place] [address] 3 month f/u documented as of this encounter Visit Diagnoses Not on filedocumented in this encounter Care Teams Audio/Video Technician Relationship Specialty Start Date End Date Adebayo Reddy MD [address] [place] [address] PCP - General Family Medicine 12/29/12 08/15/14 Ed Alfredo DO [address] [place] [address] PCP - General Family Medicine 08/16/14 08/31/19 Darrius Orr MD [address] [address] PCP - General Internal Medicine 09/01/19 Darrius Orr MD [address] [facility] [address] [place] [id number] Referring Internal Medicine 11/16/24 documented as of this encounter
--- OUTSIDE RECORDS SUMMARY | 2025-04-18 22:54 | XMS_ITS | Encounter Summary ---
Author Organization [facility] Address [facility] [place] [address] Care Team Providers Care Spd Tech Name Role Phone Camila Rodriguez MD Primary Care Provider + [phone] Lizeth Tillman MD Primary Care Provider [phone] Clinton Gonzales MD Primary Care Provider + [phone] Rich Chun MD Primary Care Provider + [phone] Adebayo Reddy MD Primary Care Provider [phone] Ed Alfredo DO Primary Care Provider [phone] Darrius Orr MD Primary Care Provider [phone] Darrius Orr MD Unavailable [phone] Source Comments In the event this information is protected by the Federal Confidentiality of Alcohol and Drug AbusePatient Records regulations: The Federal rules restrict any use of the information to criminally investigate or prosecute any alcohol or drug abuse patient.[facility] Encounter Details Date Type Department Care Team (Late st Contact Info) Description 10/16/2007 Patient Msg Medical Records [address] [place] [address] Provider, Ccf Appointment Request form Social History [...] 05/06/2025 1:00 PM EDT Office Visit [facility] [address] [facility] [place] [address] Caitlin Estrada MD [address] [place], [place] [address] New patient caroline 05/16/2025 10:00 AM EDT Office Visit Rheumatology 5700 [facility] [place] [address] Priscilla Mckee MD [address] [facility] [place] [address] Psoriatic Arthritis 07/04/2025 11:30 AM EST Office Visit Neurology [address] [place] [address] Fide Boucher DO [address] [place] [address] 3 month f/u documented as of this encounter Visit Diagnoses Not on filedocumented in this encounter Care Teams Spd Tech Relationship Specialty [place] [address] [place] [address] [place] [address] PCP - General 10/13/09 12/28/12 [place] [address] [place] [address] [place] [address] PCP - General 08/16/09 10/12/09 Clinton Gonzales MD [address] [facility] [place] [address] PCP - General 09/02/08 08/15/09 Rich Chun MD [address] [place] [place] [address] PCP - General 11/27/06 09/01/08 Adebayo Reddy MD [address] [facility] [address] [place] [address] PCP - General Family Medicine 12/29/12 08/15/14 Ed Alfredo DO [address] [facility] [address] [place] [address] PCP - General Family Medicine 08/16/14 08/31/19 Darrius Orr MD [address] [facility] 230 [place] [address] PCP - General Internal Medicine 09/01/19 Darrius Orr MD [address] [place] [address] Referring Internal Medicine 11/16/24 documented as of this encounter
--- OUTSIDE RECORDS SUMMARY | 2025-04-18 22:54 | XMS_ITS | Encounter Summary ---
Author Organization [facility] Address [address] [place] [address] Care Team Providers Care Inspector Printed Circuit Boards Name Role Phone Camila Rodriguez MD Primary Care Provider [phone] Lizeth Tillman MD Primary Care Provider [phone] Clinton Gonzales MD Primary Care Provider + [phone] Rich Chun MD Primary Care Provider [phone] Wally Monroe MD Primary Care Provider [phone] Rich Chun MD Primary Care Provider [phone] Wally Monroe MD Primary Care Provider [phone] Rich Chun MD Primary Care Provider [phone] Adebayo Reddy MD Primary Care Provider +[phone] Ed Alfredo DO Primary Care Provider [phone] Darrius Orr MD Primary Care Provider [phone] Darrius Orr MD Unavailable [phone] Source Comments In the event this information is protected by the Federal Confidentiality of Alcohol and Drug AbusePatient Records regulations: The Federal rules restrict any use of the information to criminally investigate or prosecute any alcohol or drug abuse patient.[facility] Encounter Details Date Type Department Care Team (Late st Contact Info) Description 03/31/2006 Patient Msg Medical Records [address] [place] [address] Provider, Ccf RE: Appointment Cancellation Request Social [...] Description 05/06/2025 1:00 PM EDT Office Visit [facility] [address] [facility] [place] [address] Caitlin Estrada MD [address] [place] [address] New patient eveduin 05/16/2025 10:00 AM EDT Office Visit Rheumatology 5700 [facility] [place] [address] Priscilla Mckee MD [address] [facility] [place] [address] Psoriatic Arthritis 07/04/2025 11:30 AM EST Office Visit Neurology [address] [place] [address] Fide Boucher DO [address] [place] [address] 3 month f/u documented as of this encounter Visit Diagnoses Not on filedocumented in this encounter Care Teams Inspector Printed Circuit Boards Relationship Specialty Start Date End Date Camila Rodriguez MD [address] [facility] [place] [address] PCP - General 10/13/09 12/28/12 Lizeth Tillman MD [address] [facility] [place] [address] PCP - General 08/16/09 10/12/09 Clinton Gonzales MD [address] [facility] [place] [address] PCP - General 09/02/08 08/15/09 Rich Chun MD [address] [place] [address] PCP - General 11/27/06 09/01/08 Wally Monroe MD [address] [place] [address] PCP - General 10/29/06 11/26/06 Rich Chun MD [address] [place] [address] PCP - General 10/28/06 10/28/06 Wally Monroe MD [address] [place] [place] [address] PCP - General 10/15/06 10/27/06 Rich Chun MD [address] [facility] [place] [address] PCP - General 11/07/05 10/14/06 Adebayo Reddy MD [address] [place] [address] PCP - General Family Medicine 12/29/12 08/15/14 Ed Alfredo DO [address] [place] [address] PCP - General Family Medicine 08/16/14 08/31/19 Darrius Orr MD [address] [place] [address] PCP - General Internal Medicine 09/01/19 Darrius Orr MD [address] [place] [address] Referring Internal Medicine 11/16/24 documented as of this encounter
--- OUTSIDE RECORDS SUMMARY | 2025-04-18 22:54 | XMS_ITS | Encounter Summary ---
Author Organization [facility] Address [address] [place] [address] Care Team Providers Care Supervisor Estimator And Drafter Name Role Phone Adebayo Reddy MD Primary Care Provider [phone] Ed Alfredo DO Primary Care Provider [phone] Darrius Orr MD Primary Care Provider [phone] Darrius Orr MD Unavailable [phone] Source Comments In the event this information is protected by the Federal Confidentiality of Alcohol and Drug AbusePatient Records regulations: The Federal rules restrict any use of the information to criminally investigate or prosecute any alcohol or drug abuse patient.[facility] Encounter Details Date Type Department Care Team (Late st Contact Info) Description 04/12/2013 Patient Msg Medical Records [address] [place] [address] Provider, Ccf RE: Request an Appointment Social [...] Description 05/06/2025 1:00 PM EDT Office Visit [facility] [address] [place] [address] Caitlin Estrada MD [address] [place] [address] New patient eval 05/16/2025 10:00 AM EDT Office Visit Rheumatology [address] [place] [address] Priscilla Mckee MD [address] [place] [address] Psoriatic Arthritis 07/04/2025 11:30 AM EST Office Visit Neurology [address] [place] [address] Fide Boucher DO [address] [place] [address] 3 month f/u documented as of this encounter Visit Diagnoses Not on filedocumented in this encounter Care Teams Supervisor Estimator And Drafter Relationship Specialty Start Date End Date Adebayo Reddy MD [address] [place] [address] PCP - General Family Medicine 12/29/12 08/15/14 Ed Alfredo DO [address] [place] [address] PCP - General Family Medicine 08/16/14 08/31/19 Darrius Orr MD [address] [address] PCP - General Internal Medicine 09/01/19 Darrius Orr MD [address] [facility] [address] [place] [id number] Referring Internal Medicine 11/16/24 documented as of this encounter
--- OUTSIDE RECORDS SUMMARY | 2025-04-18 22:54 | XMS_ITS | Encounter Summary ---
Author Organization [facility] Address [facility] [place] [address] Care Team Providers Care Shirt Presser Name Role Phone Camila Rodriguez MD Primary Care Provider + [phone] Lizeth Tillman MD Primary Care Provider [phone] Clinton Gonzales MD Primary Care Provider + [phone] Rich Chun MD Primary Care Provider + [phone] Adebayo Reddy MD Primary Care Provider +[phone] Ed Alfredo DO Primary Care Provider +[phone] Darrius Orr MD Primary Care Provider +[phone] Darrius Orr MD Unavailable [phone] Source Comments In the event this information is protected by the Federal Confidentiality of Alcohol and Drug AbusePatient Records regulations: The Federal rules restrict any use of the information to criminally investigate or prosecute any alcohol or drug abuse patient.[facility] Encounter Details Date Type Department Care Team (Late st Contact Info) Description 09/07/2007 Patient Msg Medical Records [address] [place] [address] Provider, Ccf RE: Appointment Request form Social [...] Description 05/06/2025 1:00 PM EDT Office Visit [facility] [address] [facility] [place] [address] Caitlin Estrada MD [address] [place], [place] [id number] New patient caroline 05/16/2025 10:00 AM EDT Office Visit Rheumatology 5700 [facility] [place] [address] Priscilla Mckee MD [address] [facility] [place] [address] Psoriatic Arthritis 07/04/2025 11:30 AM EST Office Visit Neurology [address] [place] [address] Fide Boucher DO [address] [place] [address] 3 month f/u documented as of this encounter Visit Diagnoses Not on filedocumented in this encounter Care Teams Shirt Presser Relationship Specialty Start Date End Date Camila Rodriguez MD [address] [place] [address] [place] [address] PCP - General 10/13/09 12/28/12 Lizeth Tillman MD [address] [place] [address] [place] [address] PCP - General 08/16/09 10/12/09 Clinton Gonzales MD [address] [facility] [place] [address] PCP - General 09/02/08 08/15/09 Rich Chun MD [address] [facility] [place] [address] PCP - General 11/27/06 09/01/08 Adebayo Reddy MD [address] [place] [address] PCP - General Family Medicine 12/29/12 08/15/14 Ed Alfredo DO [address] [facility] [address] [facility] [place] [address] PCP - General Family Medicine 08/16/14 08/31/19 Darrius Orr MD [address] [place] [address] PCP - General Internal Medicine 09/01/19 Darrius Orr MD [address] [place] [address] Referring Internal Medicine 11/16/24 documented as of this encounter
--- OUTSIDE RECORDS SUMMARY | 2025-04-18 22:54 | XMS_ITS | Encounter Summary ---
Author Organization [facility] Address [address] [place] [address] Care Team Providers Care Dock Superintendent Name Role Phone Darrius Orr MD Unavailable [phone] Darrius Orr MD Primary Care Provider [phone] Aiden Linares DPM Unavailable [phone] Kai Gutierres DO Unavailable [phone] Encounter Details Date Type Department Care Team ([facility] Contact Info) Description 01/31/2025 Telephone [facility] [phone] Darrius Orr MD [address] [facility] [address] [facility] [address] [place] [address] Social History Tobacco Use Types Packs/Day Years [...] encounter Miscellaneous Notes * Telephone Encounter - Bina Small - 01/31/2025 4:53 PM EDT Pt called and he wanted me to let Dr. Orr know he is on his way to [facility] due to h/a. * Telephone Encounter - Jeni Benton - 01/31/2025 4:39 PM EDT Subjective Patient ID: Alex Dyer is a 54 y.o. male who presents for No chief complaint on file.. Patient took his less Review of Systems Objective Physical Exam Assessment/Plan @SIGENC@ documented in this encounter Plan of Treatment Upcoming Encounters Date Type Department Care Team (Late st Contact Info) Description 05/05/2025 1:15 PM EDT Office Visit [facility] [address] [place] [id number] Bina Faye MD [address] [place] [address] 06/06/2025 2:00 PM EST Office Visit [facility] [place] [facility] [address] [place] [address] 07/18/2025 3:15 PM EST Procedure Visit [facility] [place] [facility] [address] [place] [address] Susie Mary DPM [address] [place] [address] documented as of this encounter Visit Diagnoses Not on filedocumented in this encounter Care Teams Dock Superintendent Relationship Specialty Start Date End Date Darrius Orr MD [address] [place] [address] PCP - [employer] 08/04/19 aDrrius Orr MD [address] [place] [address] PCP - General Internal Medicine 12/31/22 Aiden Linares DPM [address] [facility] [address] [place] [address] Referring Physician Podiatry 10/30/23 Kai Gutierres DO [address] [facility] [address] [place] [address] Referring Physician Neurology 02/24/24 documented as of this encounter
--- OUTSIDE RECORDS SUMMARY | 2025-04-18 22:54 | XMS_ITS | Encounter Summary ---
Author Organization [facility] Address [facility] [place] [address] Care Team Providers Care Title Vehicle Service Attendant Name Role Phone Adebayo Reddy MD Primary Care Provider Ed Alfredo DO Primary Care Provider [phone] Darrius Orr MD Primary Care Provider [phone] Darrius Orr MD Unavailable [phone] Source Comments In the event this information is protected by the Federal Confidentiality of Alcohol and Drug AbusePatient Records regulations: The Federal rules restrict any use of the information to criminally investigate or prosecute any alcohol or drug abuse patient.[facility] Encounter Details Date Type Department Care Team (Late st Contact Info) Description 01/01/2013 Patient Msg Medical Records [address] [place] [address] Provider, Ccf RE: Patient Registration Completed Social [...] Visit [facility] [address] [place] [address] Caitlin Estrada MD [address] [place] [address] New patient eval 05/16/2025 10:00 AM EDT Office Visit Rheumatology 5700 [place] [address] Priscilla Mckee MD [address] [place] [address] Psoriatic Arthritis 07/04/2025 11:30 AM EST Office Visit Neurology [address] [place] [address] Fide Boucher DO [address] [place] [address] 3 month f/u documented as of this encounter Visit Diagnoses Not on filedocumented in this encounter Care Teams Title Vehicle Service Attendant Relationship Specialty Start Date End Date Adebayo Reddy MD [address] [place] [address] PCP - General Family Medicine 12/29/12 08/15/14 Ed Alfredo DO [address] [place] [address] PCP - General Family Medicine 08/16/14 08/31/19 Darrius Orr MD [address] [address] PCP - General Internal Medicine 09/01/19 Darrius Orr MD [address] [facility] [address] [place] [id number] Referring Internal Medicine 11/16/24 documented as of this encounter
--- OUTSIDE RECORDS SUMMARY | 2025-04-18 22:54 | XMS_ITS | Encounter Summary ---
Author Organization [facility] Address [address] [place] [address] Care Team Providers Care Car Lot Attendant Name Role Phone Camila Rodriguez MD Primary Care Provider [phone] Lizeth Tillman MD Primary Care Provider [phone] Clinton Gonzales MD Primary Care Provider + [phone] Rich Chun MD Primary Care Provider [phone] Wally Monroe MD Primary Care Provider [phone] Rich Chun MD Primary Care Provider [phone] Wally Monroe MD Primary Care Provider [phone] Rich Chun MD Primary Care Provider [phone] Adebayo Reddy MD Primary Care Provider [phone] Ed Alfredo DO Primary Care Provider [phone] Darrius Orr MD Primary Care Provider [phone] Darrius Orr MD Unavailable [phone] Source Comments In the event this information is protected by the Federal Confidentiality of Alcohol and Drug AbusePatient Records regulations: The Federal rules restrict any use of the information to criminally investigate or prosecute any alcohol or drug abuse patient.[facility] Encounter Details Date Type Department Care Team (Late st Contact Info) Description 06/10/2006 Patient Msg Medical Records [address] [place] [address] Provider, Ccf RE: Appointment Cancellation Request Social [...] 05/06/2025 1:00 PM EDT Office Visit [facility] [address] [facility] [place] [address] Caitlin Estrada MD [address] [place] [address] New patient caroline 05/16/2025 10:00 AM EDT Office Visit Rheumatology 5700 [facility] [place] [address] Priscilla Mckee MD [address] [facility] [place] [place] [address] Psoriatic Arthritis 07/04/2025 11:30 AM EST Office Visit Neurology 9[address] [place] [address] Fide Boucher DO [address] [place] [address] 3 month f/u documented as of this encounter Visit Diagnoses Not on filedocumented in this encounter Care Teams Car Lot Attendant Relationship Specialty Start Date End Date Camila Rodriguez MD [address] [facility] [place] [address] PCP - General 10/13/09 12/28/12 Lizeth Tillman MD [address] [facility] [place] [address] PCP - General 08/16/09 10/12/09 Clinton Gonzales MD [address] [facility] [place] [address] PCP - General 09/02/08 08/15/09 Rich Chun MD [address] [place] [address] PCP - General 11/27/06 09/01/08 Wally Monroe MD [address] [place] [address] PCP - General 10/29/06 11/26/06 Rich Chun MD [address] [place] [address] PCP - General 10/28/06 10/28/06 Wally Monroe MD [address] [place] [address] PCP - General 10/15/06 10/27/06 Rich Chun MD [address] [facility] [place] [address] PCP - General 11/07/05 10/14/06 Adebayo Reddy MD [address] [place] [address] PCP - General Family Medicine 12/29/12 08/15/14 Ed Alfredo DO [address] [place] [address] PCP - General Family Medicine 08/16/14 08/31/19 Darrius Orr MD [address] [place] [address] PCP - General Internal Medicine 09/01/19 Darrius Orr MD [address] [place] [address] Referring Internal Medicine 11/16/24 documented as of this encounter
--- OUTSIDE RECORDS SUMMARY | 2025-04-18 22:54 | XMS_ITS | Encounter Summary ---
Author Organization [facility] Address [facility] [place] [address] Care Team Providers Care Recycling Operator Name Role Phone Camila Rodriguez MD Primary Care Provider + [phone] Lizeth Tillman MD Primary Care Provider [phone] Clinton Gonzales MD Primary Care Provider + [phone] Rich Chun MD Primary Care Provider + [phone] Adebayo Reddy MD Primary Care Provider [phone] Ed Alfredo DO Primary Care Provider [phone] Darrius Orr MD Primary Care Provider [phone] Darrius Orr MD Unavailable [phone] Source Comments In the event this information is protected by the Federal Confidentiality of Alcohol and Drug AbusePatient Records regulations: The Federal rules restrict any use of the information to criminally investigate or prosecute any alcohol or drug abuse patient.[facility] Encounter Details Date Type Department Care Team (Late st Contact Info) Description 05/05/2007 Patient Msg Medical Records [address] [place] [address] Provider, Ccf RE: Appointment Cancellation Request Social [...] Description 05/06/2025 1:00 PM EDT Office Visit [facility] [address] [facility] [place] [address] Caitlin Estrada MD [address] [place], [place] [address] New patient eveduin 05/16/2025 10:00 AM EDT Office Visit Rheumatology [address] [facility] [place] [address] Priscilla Mckee MD [address] [facility] [place] [address] Psoriatic Arthritis 07/04/2025 11:30 AM EST Office Visit Neurology 9[address] [place] [address] Fide Boucher DO [address] [place] [address] 3 month f/u documented as of this encounter Visit Diagnoses Not on filedocumented in this encounter Care Teams Recycling Operator Relationship Specialty Start Date End Date Camila Rodriguez MD [address] [place] [address] [place] [address] PCP - General 10/13/09 12/28/12 Lizeth Tillman MD [address] [place] [address] [place] [address] PCP - General 08/16/09 10/12/09 Clinton Gonzales MD [address] [facility] [place] [address] PCP - General 09/02/08 08/15/09 Rich Chun MD [address] [facility] [place] [address] PCP - General 11/27/06 09/01/08 Adebayo Reddy MD [address] [facility] [address] [facility] [place] [address] PCP - General Family Medicine 12/29/12 08/15/14 Ed Alfredo DO [address] [facility] [address] [facility] [place] [address] PCP - General Family Medicine 08/16/14 08/31/19 Darrius Orr MD [address] [place] [address] PCP - General Internal Medicine 09/01/19 Darrius Orr MD [address] [place] [address] Referring Internal Medicine 11/16/24 documented as of this encounter
--- OUTSIDE RECORDS SUMMARY | 2025-04-18 22:54 | XMS_ITS | Encounter Summary ---
Author Organization [facility] Address [address] [place] [address] Care Team Providers Care Hammer Shop Supervisor Name Role Phone Camila Rodriguez MD Primary Care Provider + [phone] Lizeth Tillman MD Primary Care Provider [phone] Clinton Gonzales MD Primary Care Provider + [phone] Rich Chun MD Primary Care Provider [phone] Wally Monroe MD Primary Care Provider [phone] Adebayo Reddy MD Primary Care Provider +[phone] Ed Alfredo DO Primary Care Provider [phone] Darrius Orr MD Primary Care Provider +[phone] Darrius Orr MD Unavailable [phone] Source Comments In the event this information is protected by the Federal Confidentiality of Alcohol and Drug AbusePatient Records regulations: The Federal rules restrict any use of the information to criminally investigate or prosecute any alcohol or drug abuse patient.[facility] Encounter Details Date Type Department Care Team (Late st Contact Info) Description 10/29/2006 Patient Msg Medical Records [address] [place] [address] Provider, Ccf RE: Patient Registration Completed Social [...] 1:00 PM EDT Office Visit [facility] [address] [facility] [address] Caitlin Estrada MD [address] [place], [place] [address] New patient eval 05/16/2025 10:00 AM EDT Office Visit Rheumatology 5700 [facility] [place] [address] Priscilla Mckee MD [address] [facility] [place] [address] Psoriatic Arthritis 07/04/2025 11:30 AM EST Office Visit Neurology 9[address] [place] [address] Fide Boucher DO [address] [place] [address] 3 month f/u documented as of this encounter Visit Diagnoses Not on filedocumented in this encounter Care Teams Hammer Shop Supervisor Relationship Specialty Start Date End Date Camila Rodriguez MD [address] [place] [address] [place] [address] PCP - General 10/13/09 12/28/12 Lizeth Tillman MD [address] [place] [address] [place] [address] PCP - General 08/16/09 10/12/09 Clinton Gonzales MD [address] [place] [address] PCP - General 09/02/08 08/15/09 Rich Chun MD [address] [place] [address] PCP - General 11/27/06 09/01/08 Wally Monroe MD [address] [place] [address] PCP - General 10/29/06 11/26/06 Adebayo Reddy MD [address] [facility]6 [place] [address] PCP - General Family Medicine 12/29/12 08/15/14 Ed Alfredo DO [address] [facility]6 [place] [address] PCP - General Family Medicine 08/16/14 08/31/19 Darrius Orr MD [address] [place] [address] PCP - General Internal Medicine 09/01/19 Darrius Orr MD [address] [place] [address] Referring Internal Medicine 11/16/24 documented as of this encounter
--- OUTSIDE RECORDS SUMMARY | 2025-04-18 22:54 | XMS_ITS | Encounter Summary ---
Author Organization [facility] Address [facility] [place] [address] Care Team Providers Care Technical Support Coordinator Name Role Phone Adebayo Reddy MD Primary Care Provider [phone] Ed Alfredo DO Primary Care Provider [phone] Darrius Orr MD Primary Care Provider [phone] Darrius Orr MD Unavailable [phone] Source Comments In the event this information is protected by the Federal Confidentiality of Alcohol and Drug AbusePatient Records regulations: The Federal rules restrict any use of the information to criminally investigate or prosecute any alcohol or drug abuse patient.[facility] Encounter Details Date Type Department Care Team (Late st Contact Info) Description 01/25/2013 Patient Msg Medical Records [address] [place] [address] Provider, Ccf Appointment Cancellation Request Social History [...] Description 05/06/2025 1:00 PM EDT Office Visit [facility] [address] [place] [address] Caitlin Estrada MD [address] [place] [address] New patient eval 05/16/2025 10:00 AM EDT Office Visit Rheumatology 5700 [place] [address] Priscilla Mckee MD [address] [place] [address] Psoriatic Arthritis 07/04/2025 11:30 AM EST Office Visit Neurology [address] [place] [address] Fide Boucher DO [address] [place] [address] 3 month f/u documented as of this encounter Visit Diagnoses Not on filedocumented in this encounter Care Teams Technical Support Coordinator Relationship Specialty Start Date End Date Adebayo Reddy MD [address] [place] [address] PCP - General Family Medicine 12/29/12 08/15/14 Ed Alfredo DO [address] [place] [address] PCP - General Family Medicine 08/16/14 08/31/19 Darrius Orr MD [address] [address] PCP - General Internal Medicine 09/01/19 Darrius Orr MD [address] [place] [address] Referring Internal Medicine 11/16/24 documented as of this encounter
--- OUTSIDE RECORDS SUMMARY | 2025-04-18 22:54 | XMS_ITS | Encounter Summary ---
Author Organization [facility] Address [facility] [place] [address] Care Team Providers Care Landscape Account Manager Name Role Phone Camila Rodriguez MD Primary Care Provider + [phone] Lizeth Tillman MD Primary Care Provider [phone] Clinton Gonzales MD Primary Care Provider + [phone] Rich Chun MD Primary Care Provider + [phone] Adebayo Reddy MD Primary Care Provider [phone] Ed Alfredo DO Primary Care Provider [phone] Darrius Orr MD Primary Care Provider [phone] Darrius Orr MD Unavailable [phone] Source Comments In the event this information is protected by the Federal Confidentiality of Alcohol and Drug AbusePatient Records regulations: The Federal rules restrict any use of the information to criminally investigate or prosecute any alcohol or drug abuse patient.[facility] Encounter Details Date Type Department Care Team (Late st Contact Info) Description 03/24/2008 Patient Msg Medical Records [address] [place] [address] Provider, Ccf RE: Request an Appointment Social [...] Office Visit [facility] [address] [facility] [place] [address] Caitlin Estrada MD [address] [place], [place] [address] New patient caroline 05/16/2025 10:00 AM EDT Office Visit Rheumatology 5700 [facility] [place] [address] Priscilla Mckee MD [address] [facility] [place] [address] Psoriatic Arthritis 07/04/2025 11:30 AM EST Office Visit Neurology [address] [place] [address] Fide Boucher DO [address] [place] [address] 3 month f/u documented as of this encounter Visit Diagnoses Not on filedocumented in this encounter Care Teams Landscape Account Manager Relationship Specialty Start Date End Date Camila Rodriguez MD [address] [place] [address] [place] [address] PCP - General 10/13/09 12/28/12 Lizeth Tillman MD [address] [place] [address] [place] [address] PCP - General 08/16/09 10/12/09 Clinton Gonzales MD [address] [facility] [address] PCP - General 09/02/08 08/15/09 Rich Chun MD [address] [facility] [address] PCP - General 11/27/06 09/01/08 Adebayo Reddy MD [address] [place] [address] PCP - General Family Medicine 12/29/12 08/15/14 Ed Alfredo DO [address] [facility] [address] [facility] [place] [address] PCP - General Family Medicine 08/16/14 08/31/19 Darrius Orr MD [address] [place] [address] PCP - General Internal Medicine 09/01/19 Darrius Orr MD [address] [place] [address] Referring Internal Medicine 11/16/24 documented as of this encounter
--- OUTSIDE RECORDS SUMMARY | 2025-04-18 22:54 | XMS_ITS | Encounter Summary ---
Author Organization [facility] Address [address] [place] [address] Care Team Providers Care Speech Assistant Name Role Phone Camila Rodriguez MD Primary Care Provider [phone] Lizeth Tillman MD Primary Care Provider [phone] Clinton Gonzales MD Primary Care Provider + [phone] Rich Chun MD Primary Care Provider [phone] Wally Monroe MD Primary Care Provider [phone] Rich Chun MD Primary Care Provider [phone] Wally Monroe MD Primary Care Provider [phone] Rich Chun MD Primary Care Provider [phone] Adebayo Reddy MD Primary Care Provider +[phone] Ed Alfredo DO Primary Care Provider [phone] Darrius Orr MD Primary Care Provider [phone] Darrius Orr MD Unavailable [phone] Source Comments In the event this information is protected by the Federal Confidentiality of Alcohol and Drug AbusePatient Records regulations: The Federal rules restrict any use of the information to criminally investigate or prosecute any alcohol or drug abuse patient.[facility] Encounter Details Date Type Department Care Team (Late st Contact Info) Description 03/21/2006 Patient Msg Medical Records [address] [place] [address] Provider, Ccf Appointment Cancellation Request Social History [...] Description 05/06/2025 1:00 PM EDT Office Visit [facility] [address] [facility] [place] [address] Caitlin Estrada MD [address]00 [place] [address] New patient eval 05/16/2025 10:00 AM EDT Office Visit Rheumatology 5700 [facility] [place] [address] Priscilla Mckee MD 57[address] [facility] [place] [address] Psoriatic Arthritis 07/04/2025 11:30 AM EST Office Visit Neurology [address] [place] [address] Fide Boucher DO [address] [place] [address] 3 month f/u documented as of this encounter Visit Diagnoses Not on filedocumented in this encounter Care Teams Speech Assistant Relationship Specialty Start Date End Date Camila Rodriguez MD [address] [facility] [place] [address] PCP - General 10/13/09 12/28/12 Lizeth Tillman MD [address] [place] [address] PCP - General 08/16/09 10/12/09 Clinton Gonzales MD [address] [facility] [place] [address] PCP - General 09/02/08 08/15/09 Rich Chun MD [address] [place] [address] PCP - General 11/27/06 09/01/08 Wally Monroe MD [address] [place] [address] PCP - General 10/29/06 11/26/06 Rich Chun MD [address] [place] [address] PCP - General 10/28/06 10/28/06 Wally Monroe MD [address] [place] [address] PCP - General 10/15/06 10/27/06 Rich Chun MD [address] [place] [address] PCP - General 11/07/05 10/14/06 Adebayo Reddy MD [address] [place] [address] PCP - General Family Medicine 12/29/12 08/15/14 Ed Alfredo DO [address] [place] [address] PCP - General Family Medicine 08/16/14 08/31/19 Darrius Orr MD [address] [place] [address] PCP - General Internal Medicine 09/01/19 Darrius Orr MD [address] [place] [address] Referring Internal Medicine 11/16/24 documented as of this encounter
--- OUTSIDE RECORDS SUMMARY | 2025-04-18 22:54 | XMS_ITS | Encounter Summary ---
Author Organization [facility] Address [facility] [place] [address] Care Team Providers Care Production Expert Name Role Phone Camila Rodriguez MD Primary Care Provider + [phone] Lizeth Tillman MD Primary Care Provider [phone] Clinton Gonzales MD Primary Care Provider + [phone] Rich Chun MD Primary Care Provider + [phone] Adebayo Reddy MD Primary Care Provider [phone] Ed Alfredo DO Primary Care Provider [phone] Darrius Orr MD Primary Care Provider [phone] Darrius Orr MD Unavailable [phone] Source Comments In the event this information is protected by the Federal Confidentiality of Alcohol and Drug AbusePatient Records regulations: The Federal rules restrict any use of the information to criminally investigate or prosecute any alcohol or drug abuse patient.[facility] Encounter Details Date Type Department Care Team (Late st Contact Info) Description 11/27/2006 Patient Msg Medical Records [address] [place] [address] Provider, Ccf Appointment Cancellation Request Social History [...] PM EDT Office Visit [facility] [address] [facility] [place] [address] Caitlin Estrada MD [address] [place], [place] [id number] New patient caroline 05/16/2025 10:00 AM EDT Office Visit Rheumatology 5700 [facility] [place] [address] Priscilla Mckee MD [address] [facility] [place] [address] Psoriatic Arthritis 07/04/2025 11:30 AM EST Office Visit Neurology 9[address] [place] [address] Fide Boucher DO [address] [place] [address] 3 month f/u documented as of this encounter Visit Diagnoses Not on filedocumented in this encounter Care Teams Production Expert Relationship Specialty [place] [address] [place] [address] [place] [address] PCP - General 10/13/09 12/28/12 [place] [address] [place] [address] [place] [address] PCP - General 08/16/09 10/12/09 Clinton Gonzales MD [address] [facility] [place] [address] PCP - General 09/02/08 08/15/09 Rich Chun MD [address] [facility] [place] [address] PCP - General 11/27/06 09/01/08 Adebayo Reddy MD 57[address] [facility] [address] [place] [address] PCP - General Family Medicine 12/29/12 08/15/14 Ed Alfredo DO [address] [place] [address] PCP - General Family Medicine 08/16/14 08/31/19 Darrius Orr MD [address] [facility] 230 [place] [address] PCP - General Internal Medicine 09/01/19 Darrius Orr MD [address] [place] [address] Referring Internal Medicine 11/16/24 documented as of this encounter
--- OUTSIDE RECORDS SUMMARY | 2025-04-18 22:54 | XMS_ITS | Encounter Summary ---
Author Organization [facility] Address [address] [place] [address] Care Team Providers Care Injection Moulding Machine Operator Name Role Phone Adebayo Reddy MD Primary Care Provider [phone] Ed Alfredo DO Primary Care Provider [phone] Darrius Orr MD Primary Care Provider [phone] Darrius Orr MD Unavailable [phone] Source Comments In the event this information is protected by the Federal Confidentiality of Alcohol and Drug AbusePatient Records regulations: The Federal rules restrict any use of the information to criminally investigate or prosecute any alcohol or drug abuse patient.[facility] Encounter Details Date Type Department Care Team (Late st Contact Info) Description 03/24/2013 Patient Msg Medical Records [address] [place] [address] Provider, Ccf RE: Appointment Cancellation Request Social [...] 05/06/2025 1:00 PM EDT Office Visit [facility] 5700 [place] [address] Caitlin Estrada MD [address]00 [place] [address] New patient eval 05/16/2025 10:00 AM EDT Office Visit Rheumatology 5700 [place] [address] Priscilla Mckee MD [address] [place] [address] Psoriatic Arthritis 07/04/2025 11:30 AM EST Office Visit Neurology 9[address] [place] [address] Fide Boucher DO [address] [place] [address] 3 month f/u documented as of this encounter Visit Diagnoses Not on filedocumented in this encounter Care Teams Injection Moulding Machine Operator Relationship Specialty Start Date End Date Adebayo Reddy MD [address] [place] [address] PCP - General Family Medicine 12/29/12 08/15/14 Ed Alfredo DO [address] [place] [address] PCP - General Family Medicine 08/16/14 08/31/19 Darrius Orr MD [address] [address] PCP - General Internal Medicine 09/01/19 Darrius Orr MD [address] [facility] 230 [place] [address] Referring Internal Medicine 11/16/24 documented as of this encounter
--- OUTSIDE RECORDS SUMMARY | 2025-04-18 22:54 | XMS_ITS | Encounter Summary ---
Author Organization [facility] Address [address] [place] [address] Care Team Providers Care Embossing Machine Operator Name Role Phone Camila Rodriguez MD Primary Care Provider [phone] Lizeth Tillman MD Primary Care Provider [phone] Clinton Gonzales MD Primary Care Provider + [phone] Rich Chun MD Primary Care Provider [phone] Wally Monroe MD Primary Care Provider [phone] Rich Chun MD Primary Care Provider [phone] Wally Monroe MD Primary Care Provider [phone] Rich Chun MD Primary Care Provider [phone] Adebayo Reddy MD Primary Care Provider [phone] Ed Alfredo DO Primary Care Provider [phone] Darrius Orr MD Primary Care Provider [phone] Darrius Orr MD Unavailable [phone] Source Comments In the event this information is protected by the Federal Confidentiality of Alcohol and Drug AbusePatient Records regulations: The Federal rules restrict any use of the information to criminally investigate or prosecute any alcohol or drug abuse patient.[facility] Encounter Details Date Type Department Care Team (Late st Contact Info) Description 03/31/2006 Patient Msg Medical Records [address] [place] [address] Provider, Ccf RE: Appointment Cancellation Request Social [...] Description 05/06/2025 1:00 PM EDT Office Visit [facility] [address] [facility] [place] [address] Caitlin Estarda MD [address] [place] [address] New patient eveduin 05/16/2025 10:00 AM EDT Office Visit Rheumatology 5700 [facility] [place] [address] Priscilla Mckee MD [address] [facility] [address] Psoriatic Arthritis 07/04/2025 11:30 AM EST Office Visit Neurology 9[address] [place] [address] Fide Boucher DO [address] [place] [address] 3 month f/u documented as of this encounter Visit Diagnoses Not on filedocumented in this encounter Care Teams Embossing Machine Operator Relationship Specialty Start Date End Date Camila Rodriguez MD [address] [facility] [place] [address] PCP - General 10/13/09 12/28/12 Lizeth Tillman MD [address] [facility] [place] [address] PCP - General 08/16/09 10/12/09 Clinton Gonzales MD [address] [facility] [place] [address] PCP - General 09/02/08 08/15/09 Rich Chun MD [address] [place] [address] PCP - General 11/27/06 09/01/08 Wally Monroe MD [address] [place] [address] PCP - General 10/29/06 11/26/06 Rich Chun MD [address] [place] [address] PCP - General 10/28/06 10/28/06 Wally Monroe MD [address] [place] [address] PCP - General 10/15/06 10/27/06 Rich Chun MD [address] [facility] [place] [address] PCP - General 11/07/05 10/14/06 Adebayo Reddy MD [address] [place] [address] PCP - General Family Medicine 12/29/12 08/15/14 Ed Alfredo DO [address] [place] [address] PCP - General Family Medicine 08/16/14 08/31/19 Darrius Orr MD [address] [place] [address] PCP - General Internal Medicine 09/01/19 Darrius Orr MD [address] [place] [address] Referring Internal Medicine 11/16/24 documented as of this encounter
--- OUTSIDE RECORDS SUMMARY | 2025-04-18 22:54 | XMS_ITS | Encounter Summary ---
Author Organization [facility] Address [address] [place] [address] Care Team Providers Care House Rn Name Role Phone Darrius Orr MD Unavailable [phone] Darrius Orr MD Primary Care Provider [phone] Aiden Linares DPM Unavailable [phone] Kai Gutierres DO Unavailable [phone] Encounter Details Date Type Department Care Team ([facility] Contact Info) Description 03/01/2024 Orders Only [facility] [address] [facility] [address] [place] [address] A, Unknown Practice [address] [place], [place] [id number] Social History Tobacco Use Types Packs/Day Years [...] 05/05/2025 1:15 PM EDT Office Visit [facility] [address] [place] [address] Bina Faye MD [address] [place] [address] 06/06/2025 2:00 PM EST Office Visit [facility] [place] [facility] [address] [place] [address] 07/18/2025 3:15 PM EST Procedure Visit [facility] [place] [facility] [address] [place] [address] Susie Mary DPM [address] [place] [address] documented as of this encounter Procedures Procedure Name Priority Date/Time Associated Diagnosis Comments PARATHYROID HORMONE, FNAB NEEDLE WASH Routine 02/25/2024 8:02 AM EDT VITAMIN D 1,25 DIHYDROXY Routine 024 8:02 AM EDT CBC Routine 02/25/2024 8:02 AM EDT HEMOGLOBIN A1C Routine 02/25/2024 8:02 AM EDT IMMUNOGLOBULIN G Routine 02/25/2024 8:0 2 AM EDT HEPATIC FUNCTION PANEL Routine 8:02 AM EDT COMPREHENSIVE METABOLIC PANEL Routine 02/25/2024 8:02 AM EDT documented in this encounter Results * CBC (02/25/2024 8:02 AM EDT) Blood Venous blood specimen / Unknown us Unknown Practice A LAB BLOOD ORDERABLES Final Re sult * PARATHYROID HORMONE, FNAB NEEDLE WASH (02/25/2024 8:02 AM EDT) Result [facility] Unknown Practice A LAB BLOOD ORDERABLES Final Re sult * Comprehensive metabolic panel (02/25/2024 8:02 AM EDT) Blood Venous blood specimen / Unknown Result [facility] Unknown Practice A LAB BLOOD ORDERABLES Final Re sult * Hepatic function panel (02/25/2024 8:02 AM EDT) Blood Venous blood specimen / Unknown Result [facility] Unknown Practice A LAB BLOOD ORDERABLES Final Re sult * Vitamin D 1,25 dihydroxy (02/25/2024 8:02 AM EDT) Blood Venous blood specimen / Unknown Result [facility] Unknown Practice A LAB BLOOD ORDERABLES Final Re sult * IgG (02/25/2024 8:02 AM EDT) Blood Venous blood specimen / Unknown Result [facility] Unknown Practice A LAB BLOOD ORDERABLES Final Re sult * Hemoglobin A1c (02/25/2024 8:02 AM EDT) Blood Venous blood specimen / Unknown Result [facility] Unknown Practice A LAB BLOOD ORDERABLES Final Re sult documented in this encounter Visit Diagnoses Not on filedocumented in this encounter Care Teams House Rn Relationship Specialty Start Date End Date Darrius Orr MD [address] [place] [address] PCP - [employer] 08/04/19 Darrius Orr MD [address] [place] [address] PCP - General Internal Medicine 12/31/22 Aiden Linares DPM [address] [facility] 100 [place] [address] Referring Physician Podiatry 10/30/23 Kai Gutierres DO [address] [address] Referring Physician Neurology 02/24/24 documented as of this encounter
--- OUTSIDE RECORDS SUMMARY | 2025-04-18 22:54 | XMS_ITS | Encounter Summary ---
Author Organization [facility] Address [facility] [place] [address] Care Team Providers Care Roll Handler Name Role Phone Camila Rodriguez MD Primary Care Provider + [phone] Lizeth Tillman MD Primary Care Provider [phone] Clinton Gonzales MD Primary Care Provider + [phone] Rich Chun MD Primary Care Provider [phone] Adebayo Reddy MD Primary Care Provider [phone] Ed Alfredo DO Primary Care Provider [phone] Darrius Orr MD Primary Care Provider [phone] Darrius Orr MD Unavailable [phone] Source Comments In the event this information is protected by the Federal Confidentiality of Alcohol and Drug AbusePatient Records regulations: The Federal rules restrict any use of the information to criminally investigate or prosecute any alcohol or drug abuse patient.[facility] Encounter Details Date Type Department Care Team (Late st Contact Info) Description 03/24/2008 Patient Msg Medical Records [address] [place] [address] Provider, Ccf Appointment Cancellation Request Social History [...] 1:00 PM EDT Office Visit [facility] [address] [facility] [place] [address] Caitlin Estrada MD [address] [place], [place] [address] New patient caroline 05/16/2025 10:00 AM EDT Office Visit Rheumatology 57[address] [facility] [place] [address] Priscilla Mckee MD [address] [facility] [place] [address] Psoriatic Arthritis 07/04/2025 11:30 AM EST Office Visit Neurology 9[address] [place] [address] Fide Boucher DO [address] [place] [address] 3 month f/u documented as of this encounter Visit Diagnoses Not on filedocumented in this encounter Care Teams Roll Handler Relationship Specialty [place] [address] [place] [address] [place] [address] PCP - General 10/13/09 12/28/12 [place] [address] [place] [address] [place] [address] PCP - General 08/16/09 10/12/09 Clinton Gonzales MD [address] [facility] [place] [address] PCP - General 09/02/08 08/15/09 Rich Chun MD [address] [facility] [place] [address] PCP - General 11/27/06 09/01/08 Adebayo Reddy MD [address] [facility] [address] [place] [address] PCP - General Family Medicine 12/29/12 08/15/14 Ed Alfredo DO [address] [place] [address] PCP - General Family Medicine 08/16/14 08/31/19 Darrius Orr MD [address] [facility] 230 [place] [address] PCP - General Internal Medicine 09/01/19 Darrius Orr MD [address] [place] [address] Referring Internal Medicine 11/16/24 documented as of this encounter
--- OUTSIDE RECORDS SUMMARY | 2025-04-18 22:54 | XMS_ITS | Encounter Summary ---
Author Organization [facility] Address [address] [facility] [address] [place] [address] Care Team Providers Care Population Geneticist Name Role Phone Darrius Orr MD Unavailable [phone] Darrius Orr MD Primary Care Provider [phone] Aiden Linares DPM Unavailable [phone] Kai Gutierres DO Unavailable [phone] Encounter Details Date Type Department Care Team ([facility] Contact Info) Description 03/15/2024 Orders Only [facility] [address] [facility] [address] [place] [address] A, Unknown Practice [address] [place], [place] [id number] Social History Tobacco Use Types Packs/Day Years [...] PM EDT Office Visit [facility] [address] [place] [address] Bina Faye MD [address] [place] [address] 06/06/2025 2:00 PM EST Office Visit [facility] [address] [place] [address] 07/18/2025 3:15 PM EST Procedure Visit [facility] [address] [place] [address] Susie Mary DPM [address] [place] [address] documented as of this encounter Procedures Procedure [...] on filedocumented in this encounter Care Teams Population Geneticist Relationship Specialty Start Date End Date Darrius Orr MD [address] [place] [address] PCP - [employer] 08/04/19 Darrius Orr MD [address] [place] [address] PCP - General Internal Medicine 12/31/22 Aiden Linares DPM [address] [facility] 100 [place] [address] Referring Physician Podiatry 10/30/23 Kai Gutierres DO [address] [phone] Referring Physician Neurology 02/24/24 documented as of this encounter
--- OUTSIDE RECORDS SUMMARY | 2025-04-18 22:54 | XMS_ITS | Encounter Summary ---
Author Organization [facility] Address [facility] [place] [address] Care Team Providers Care Corrections Caseworker Name Role Phone Adebayo Reddy MD Primary Care Provider [phone] Ed Alfredo DO Primary Care Provider [phone] Darrius Orr MD Primary Care Provider [phone] Darrius Orr MD Unavailable [phone] Source Comments In the event this information is protected by the Federal Confidentiality of Alcohol and Drug AbusePatient Records regulations: The Federal rules restrict any use of the information to criminally investigate or prosecute any alcohol or drug abuse patient.[facility] Encounter Details Date Type Department Care Team (Late st Contact Info) Description 03/01/2013 Patient Msg Medical Records [address] [place] [address] Provider, Ccf RE: Patient Registration Completed Social [...] Description 05/06/2025 1:00 PM EDT Office Visit [facility] [address] [place] [address] Caitlin Estrada MD [address]00 [place] [address] New patient eval 05/16/2025 10:00 AM EDT Office Visit Rheumatology 5700 [place] [address] Priscilla Mckee MD [address]00 [place] [address] Psoriatic Arthritis 07/04/2025 11:30 AM EST Office Visit Neurology 9300 [place] [address] Fide Boucher DO [address] [place] [address] 3 month f/u documented as of this encounter Visit Diagnoses Not on filedocumented in this encounter Care Teams Corrections Caseworker Relationship Specialty Start Date End Date Adebayo Reddy MD [address] [place] [address] PCP - General Family Medicine 12/29/12 08/15/14 Ed Alfredo DO [address] [place] [address] PCP - General Family Medicine 08/16/14 08/31/19 Darrius Orr MD [address] [address] PCP - General Internal Medicine 09/01/19 Darrius Orr MD [address] [facility] [address] [place] [phone] Referring Internal Medicine 11/16/24 documented as of this encounter
--- OUTSIDE RECORDS SUMMARY | 2025-04-18 22:54 | XMS_ITS | Encounter Summary ---
Author Organization [facility] Address [address] [place] [address] [place] [address] Care Team Providers Care Financial Services Officer Name Role Phone Darrius Orr MD Unavailable [phone] Darrius Orr MD Primary Care Provider [phone] Aiden Linares DPM Unavailable [phone] Kai Gutierres DO Unavailable [phone] Encounter Details Date Type Department Care Team ([facility] Contact Info) Description 05/19/2024 Orders Only [facility] [address] [facility] [address] [place] [address] A, Unknown Practice [address] [place], [place] [id number] Social History Tobacco Use Types Packs/Day Years [...] 05/05/2025 1:15 PM EDT Office Visit [facility] [address] [place] [address] Bina Faye MD [address] [place] [address] 06/06/2025 2:00 PM EST Office Visit [facility] [address] [place] [address] 07/18/2025 3:15 PM EST Procedure Visit [facility] [address] [place] [address] Susie Mary DPM [address] [place] [address] documented as of this encounter Procedures Procedure [...] on filedocumented in this encounter Care Teams Financial Services Officer Relationship Specialty Start Date End Date Darrius Orr MD [address] [place] [address] PCP - [employer] 08/04/19 Darrius Orr MD [address] [place] [address] PCP - General Internal Medicine 12/31/22 Aiden Linares DPM [address] [place] [address] Referring Physician Podiatry 10/30/23 Kai Gutierres DO [address] [facility] 353 [place] [address] Referring Physician Neurology 02/24/24 documented as of this encounter
--- OUTSIDE RECORDS SUMMARY | 2025-04-18 22:54 | XMS_ITS | Encounter Summary ---
Author Organization [facility] Address [address] [place] [address] Care Team Providers Care Strap Cutting Machine Operator Name Role Phone Cmaila Rodriguez MD Primary Care Provider [phone] Lizeth Tillman MD Primary Care Provider [phone] Clinton Gonzales MD Primary Care Provider + [phone] Rich Chun MD Primary Care Provider [phone] Wally Monroe MD Primary Care Provider [phone] Rich Chun MD Primary Care Provider [phone] Wally Monroe MD Primary Care Provider [phone] Rich Chun MD Primary Care Provider [phone] Adebayo Reddy MD Primary Care Provider [phone] Ed Alfredo DO Primary Care Provider [phone] Darrius Orr MD Primary Care Provider [phone] Darrius Orr MD Unavailable [phone] Source Comments In the event this information is protected by the Federal Confidentiality of Alcohol and Drug AbusePatient Records regulations: The Federal rules restrict any use of the information to criminally investigate or prosecute any alcohol or drug abuse patient.[facility] Encounter Details Date Type Department Care Team (Late st Contact Info) Description 03/31/2006 Patient Msg Medical Records [address] [place] [address] Provider, Ccf RE: Appointment Cancellation Request Social [...] Description 05/06/2025 1:00 PM EDT Office Visit [facility] [address] [place] [address] Caitlin Estrada MD [address] [place] [address] New patient eveduin 05/16/2025 10:00 AM EDT Office Visit Rheumatology 5700 [facility] [place] [address] Priscilla Mckee MD [address] [facility] [place] [address] Psoriatic Arthritis 07/04/2025 11:30 AM EST Office Visit Neurology 9300 [place] [address] Fide Boucher DO [address] [place] [address] 3 month f/u documented as of this encounter Visit Diagnoses Not on filedocumented in this encounter Care Teams Strap Cutting Machine Operator Relationship Specialty Start Date End Date Camila Rodriguez MD [address] [address] PCP - General 10/13/09 12/28/12 Lizeth Tilmlan MD [address] [place] [address] PCP - General 08/16/09 10/12/09 Clinton Gonzales MD [address] [place] [address] PCP - General 09/02/08 08/15/09 Rich Chun MD [address] [place] [address] PCP - General 11/27/06 09/01/08 Wally [place] MD [address] [place] [address] PCP - General 10/29/06 11/26/06 Rich Chun MD [address] [place] [address] PCP - General 10/28/06 10/28/06 Wally Monroe MD [address] [place] [address] PCP - General 10/15/06 10/27/06 Rich Chun MD [address] [facility] [place] [address] PCP - General 11/07/05 10/14/06 Adebayo Reddy MD [address] [place] [address] PCP - General Family Medicine 12/29/12 08/15/14 Ed Alfredo DO [address] [place] [address] PCP - General Family Medicine 08/16/14 08/31/19 Darrius Orr MD [address] [place] [address] PCP - General Internal Medicine 09/01/19 Darrius Orr MD [address] [place] [address] Referring Internal Medicine 11/16/24 documented as of this encounter
--- OUTSIDE RECORDS SUMMARY | 2025-04-18 22:54 | XMS_ITS | Encounter Summary ---
Author Organization [facility] Address [address] [place] [address] Care Team Providers Care Data Conversion Operator Name Role Phone Camila Rodriguez MD Primary Care Provider [phone] Adebayo Reddy MD Primary Care Provider [phone] Ed Alfredo DO Primary Care Provider + [phone] Darrius Orr MD Primary Care Provider [phone] Darrius Orr MD Unavailable [phone] Source Comments In the event this information is protected by the Federal Confidentiality of Alcohol and Drug AbusePatient Records regulations: The Federal rules restrict any use of the information to criminally investigate or prosecute any alcohol or drug abuse patient.[facility] Encounter Details Date Type Department Care Team (Late st Contact Info) Description 10/27/2012 Patient Msg Medical Records [address] [place] [address] Provider, Ccf RE: Request an Appointment Social [...] 1:00 PM EDT Office Visit [facility] [address] [place] [address] Caitlin Estrada MD [address] [place] [address] New patient caroline 05/16/2025 10:00 AM EDT Office Visit Rheumatology [address] [facility] [place] [address] Priscilla Mckee MD [address] [facility] [place] [address] Psoriatic Arthritis 07/04/2025 11:30 AM EST Office Visit Neurology [address] [place] [address] Fide Boucher DO [address] [place] [address] 3 month f/u documented as of this encounter Visit Diagnoses Not on filedocumented in this encounter Care Teams Data Conversion Operator Relationship Specialty Start Date End Date Camila Rodriguez MD [address] [place] [address] [place] [address] PCP - General 10/13/09 12/28/12 [place] [address] [place] [address] [address] [place] [address] PCP - General Family Medicine 12/29/12 08/15/14 [place] [address] [place] [address] [address] [place] [address] PCP - General Family Medicine 08/16/14 08/31/19 Darrius Orr MD [address] [place] [address] PCP - General Internal Medicine 09/01/19 Darrius Orr MD [address] [place] [address] Referring Internal Medicine 11/16/24 documented as of this encounter
--- OUTSIDE RECORDS SUMMARY | 2025-04-18 22:54 | XMS_ITS | Encounter Summary ---
Author Organization [facility] Address [address] [place] [address] Care Team Providers Care Emergency Department Nurse Name Role Phone Darrius Orr MD Unavailable [phone] Darrius Orr MD Primary Care Provider [phone] Aiden Linares DPM Unavailable [phone] Kai Gutierres DO Unavailable [phone] Reason for Visit * Reason Onset Date Comments Error (VOID this visit) 03/11/2024 Encounter Details Date Type Department Care Team ([facility] st Contact Info) Description 03/11/2024 Telephone [facility] [place] [facility] [address] [facility] [address] [place] [address] Darrius Orr MD [address] [facility] 230 [place] [address] Error (VOID this visit) Social History Tobacco [...] 05/05/2025 1:15 PM EDT Office Visit [facility] [address] [place] [address] Bina Faye MD [address] [place] [address] 06/06/2025 2:00 PM EST Office Visit [facility] [place] [facility] [address] [place] [address] 07/18/2025 3:15 PM EST Procedure Visit [facility] [place] [facility] [address] [place] [address] Susie Mary DPM [address] [place] [address] documented as of this encounter Visit Diagnoses Not on filedocumented in this encounter Care Teams Emergency Department Nurse Relationship Specialty Start Date End Date Darrius Orr MD [address] [place] [address] PCP - [employer] 08/04/19 Darrius Orr MD [address] [place] [address] PCP - General Internal Medicine 12/31/22 Aiden Linares DPM [address] [place] [address] Referring Physician Podiatry 10/30/23 Kai Gutierres DO [address] [address] Referring Physician Neurology 02/24/24 documented as of this encounter
--- OUTSIDE RECORDS SUMMARY | 2025-04-18 22:54 | XMS_ITS | Encounter Summary ---
Author Organization [facility] Address [address] [place] [address] Care Team Providers Care Staff Editor Name Role Phone Adebayo Reddy MD Primary Care Provider [phone] Ed Alfredo DO Primary Care Provider [phone] Darrius Orr MD Primary Care Provider [phone] Darrius Orr MD Unavailable [phone] Source Comments In the event this information is protected by the Federal Confidentiality of Alcohol and Drug AbusePatient Records regulations: The Federal rules restrict any use of the information to criminally investigate or prosecute any alcohol or drug abuse patient.[facility] Encounter Details Date Type Department Care Team (Late st Contact Info) Description 06/25/2013 Patient Msg Medical Records [address] [place] [address] Provider, Ccf RE: Appointment Cancellation Request Social [...] 1:00 PM EDT Office Visit [facility] 57[address] [place] [address] Caitlin Estrada MD [address] [place] [address] New patient eval 05/16/2025 10:00 AM EDT Office Visit Rheumatology [address] [place] [address] Priscilla Mckee MD [address] [place] [address] Psoriatic Arthritis 07/04/2025 11:30 AM EST Office Visit Neurology 9[address] [place] [address] Fide Boucher DO [address] [place] [address] 3 month f/u documented as of this encounter Visit Diagnoses Not on filedocumented in this encounter Care Teams Staff Editor Relationship Specialty Start Date End Date Adebayo Reddy MD [address] [place] [address] PCP - General Family Medicine 12/29/12 08/15/14 Ed Alfredo DO [address] [place] [address] PCP - General Family Medicine 08/16/14 08/31/19 Darrius Orr MD [address] [address] PCP - General Internal Medicine 09/01/19 Darrius Orr MD [address] [facility] 230 [place] [address] Referring Internal Medicine 11/16/24 documented as of this encounter
--- OUTSIDE RECORDS SUMMARY | 2025-04-18 22:54 | XMS_ITS | Encounter Summary ---
Author Organization [facility] Address [address] [place] [address] Care Team Providers Care Tallow Refiner Name Role Phone Adebayo Reddy MD Primary Care Provider [phone] Ed Alfredo DO Primary Care Provider [phone] Darrius Orr MD Primary Care Provider [phone] Darrius Orr MD Unavailable [phone] Source Comments In the event this information is protected by the Federal Confidentiality of Alcohol and Drug AbusePatient Records regulations: The Federal rules restrict any use of the information to criminally investigate or prosecute any alcohol or drug abuse patient.[facility] Encounter Details Date Type Department Care Team (Late st Contact Info) Description 04/09/2013 Patient Msg Medical Records [address] [place] [address] Provider, Ccf RE: Request an Appointment Social [...] 05/06/2025 1:00 PM EDT Office Visit [facility] [address] [place] [address] Caitlin Estrada MD [address] [place] [address] New patient eval 05/16/2025 10:00 AM EDT Office Visit Rheumatology [address] [place] [address] Priscilla Mckee MD [address] [place] [address] Psoriatic Arthritis 07/04/2025 11:30 AM EST Office Visit Neurology [address] [place] [address] Fide Boucher DO [address] [place] [address] 3 month f/u documented as of this encounter Visit Diagnoses Not on filedocumented in this encounter Care Teams Tallow Refiner Relationship Specialty Start Date End Date Adebayo Reddy MD [address] [place] [address] PCP - General Family Medicine 12/29/12 08/15/14 dE Alfredo DO [address] [place] [address] PCP - General Family Medicine 08/16/14 08/31/19 Darrius Orr MD [address] [address] PCP - General Internal Medicine 09/01/19 Darrius Orr MD [address] [facility] [address] [place] [address] Referring Internal Medicine 11/16/24 documented as of this encounter
--- OUTSIDE RECORDS SUMMARY | 2025-04-18 22:54 | XMS_ITS | Encounter Summary ---
Author Organization [facility] Address [address] [place] [address] Care Team Providers Care Sexual Assault Social Worker Name Role Phone Camila Rodriguez MD Primary Care Provider [phone] Adebayo Reddy MD Primary Care Provider [phone] Ed Alfredo DO Primary Care Provider [phone] Darrius Orr MD Primary Care Provider [phone] Darrius Orr MD Unavailable [phone] Source Comments In the event this information is protected by the Federal Confidentiality of Alcohol and Drug AbusePatient Records regulations: The Federal rules restrict any use of the information to criminally investigate or prosecute any alcohol or drug abuse patient.[facility] Encounter Details Date Type Department Care Team (Late st Contact Info) Description 12/07/2012 Patient Msg Medical Records [address] [place] [address] Provider, Ccf RE: Request an Appointment Social [...] Description 05/06/2025 1:00 PM EDT [facility] [address] [place] [address] Caitlin Estrada MD [address] [place] [address] New patient caroline 05/16/2025 10:00 AM EDT Office Visit Rheumatology 57[address] [facility] [place] [address] Priscilla Mckee MD [address] [facility] [address] Psoriatic Arthritis 07/04/2025 11:30 AM EST Office Visit Neurology [address] [place] [address] Fide Boucher DO [address] [place] [address] 3 month f/u documented as of this encounter Visit Diagnoses Not on filedocumented in this encounter Care Teams Sexual Assault Social Worker Relationship Specialty Start Date End Date Camila Rodriguez MD [address] [place] [address] [place] [address] PCP - General 10/13/09 12/28/12 [place] [address] [place] [address] [address] [place] [address] PCP - General Family Medicine 12/29/12 08/15/14 [place] [address] [place] [address] [address] [place] [address] PCP - General Family Medicine 08/16/14 08/31/19 Darrius Orr MD [address] [place] [address] PCP - General Internal Medicine 09/01/19 Darrius Orr MD [address] [place] [address] Referring Internal Medicine 11/16/24 documented as of this encounter
--- OUTSIDE RECORDS SUMMARY | 2025-04-18 22:54 | XMS_ITS | Encounter Summary ---
Author Organization [facility] Address [facility] [place] [address] Care Team Providers Care Canal Boat Operator Name Role Phone Camila Rodriguez MD Primary Care Provider [phone] Lizeth Tillman MD Primary Care Provider [phone] Clinton Gonzales MD Primary Care Provider + [phone] Rich Chun MD Primary Care Provider [phone] Adebayo Reddy MD Primary Care Provider [phone] Ed Alfredo DO Primary Care Provider [phone] Darrius Orr MD Primary Care Provider [phone] Darrius Orr MD Unavailable [phone] Source Comments In the event this information is protected by the Federal Confidentiality of Alcohol and Drug AbusePatient Records regulations: The Federal rules restrict any use of the information to criminally investigate or prosecute any alcohol or drug abuse patient.[facility] Encounter Details Date Type Department Care Team (Late st Contact Info) Description 10/09/2007 Patient Msg Medical Records [address] [place] [address] Provider, Ccf Appointment Request form Social History [...] 1:00 PM EDT Office Visit [facility] [address] [facility] [place] [address] Caitlin Estrada MD [address] [place], [place] [address] New patient caroline 05/16/2025 10:00 AM EDT Office Visit Rheumatology [address] [facility] [place] [address] Priscilla Mckee MD [address] [facility] [place] [address] Psoriatic Arthritis 07/04/2025 11:30 AM EST Office Visit Neurology [address] [place] [address] Fide Boucher DO [address] [place] [address] 3 month f/u documented as of this encounter Visit Diagnoses Not on filedocumented in this encounter Care Teams Canal Boat Operator Relationship Specialty [place] [address] [place] [address] [place] [address] PCP - General 10/13/09 12/28/12 [place] [address] [place] [address] [place] [address] PCP - General 08/16/09 10/12/09 Clinton Gonzales MD [address] [facility] [place] [address] PCP - General 09/02/08 08/15/09 Rich Chun MD [address] [facility] [place] [address] PCP - General 11/27/06 09/01/08 Adebayo Reddy MD [address] [facility] [address] [place] [address] PCP - General Family Medicine 12/29/12 08/15/14 Ed Alfredo DO [address] [facility] [address] [place] [address] PCP - General Family Medicine 08/16/14 08/31/19 Darrius Orr MD [address] [facility] 230 [place] [address] PCP - General Internal Medicine 09/01/19 Darrius Orr MD [address] [place] [address] Referring Internal Medicine 11/16/24 documented as of this encounter
--- OUTSIDE RECORDS SUMMARY | 2025-04-18 22:54 | XMS_ITS | Encounter Summary ---
Author Organization [facility] Address [address] [email or web address] [place] [address] Care Team Providers Care Aircraft Steel Fabricator Name Role Phone Darrius Orr MD Unavailable [phone] Darrius Orr MD Primary Care Provider [phone] Aiden Linares DPM Unavailable [phone] Kai Gutierres DO Unavailable [phone] Encounter Details Date Type Department Care Team ([facility] Contact Info) Description 04/21/2024 Orders Only [facility] [place] [facility] [address] [facility] [address] [place] [address] A, Unknown Practice [address] [place], [place] [id number] Social History Tobacco Use Types Packs/Day Years [...] 05/05/2025 1:15 PM EDT Office Visit [facility] [address] [place] [address] Bina Faye MD [address] [place] [address] 06/06/2025 2:00 PM EST Office Visit [facility] [address] [place] [address] 07/18/2025 3:15 PM EST Procedure Visit [facility] [address] [place] [address] Susie Mary DPM [address] [place] [address] documented as of this encounter Procedures Procedure [...] on filedocumented in this encounter Care Teams Aircraft Steel Fabricator Relationship Specialty Start Date End Date Darrius Orr MD [address] [place] [address] PCP - [employer] 08/04/19 Darrius Orr MD [address] [place] [address] PCP - General Internal Medicine 12/31/22 Aiden Linares DPM [address] [facility] 100 [place] [address] Referring Physician Podiatry 10/30/23 Kai Gutierres DO [address] [address] Referring Physician Neurology 02/24/24 documented as of this encounter
--- OUTSIDE RECORDS SUMMARY | 2025-04-18 22:54 | XMS_ITS | Encounter Summary ---
Author Organization [facility] Address [address] [place] [address] Care Team Providers Care Relations Director Name Role Phone Adebayo Reddy MD Primary Care Provider [phone] Ed Alfredo DO Primary Care Provider [phone] Darrius Orr MD Primary Care Provider [phone] Darrius Orr MD Unavailable [phone] Source Comments In the event this information is protected by the Federal Confidentiality of Alcohol and Drug AbusePatient Records regulations: The Federal rules restrict any use of the information to criminally investigate or prosecute any alcohol or drug abuse patient.[facility] Encounter Details Date Type Department Care Team (Late st Contact Info) Description 01/18/2013 Patient Msg Medical Records [address] [place] [address] Provider, Ccf RE: Request an Appointment Social [...] Office Visit [facility] [address] [place] [address] Caitlin Estrada MD [address] [place] [address] New patient eval 05/16/2025 10:00 AM EDT Office Visit Rheumatology [address] [place] [address] Priscilla Mckee MD [address] [place] [address] Psoriatic Arthritis 07/04/2025 11:30 AM EST Office Visit Neurology [address] [place] [address] Fide Boucher DO [address] [place] [address] 3 month f/u documented as of this encounter Visit Diagnoses Not on filedocumented in this encounter Care Teams Relations Director Relationship Specialty Start Date End Date Adebayo Reddy MD [address] [place] [address] PCP - General Family Medicine 12/29/12 08/15/14 Ed Alfredo DO [address] [place] [address] PCP - General Family Medicine 08/16/14 08/31/19 Darrius Orr MD [address] [address] PCP - General Internal Medicine 09/01/19 Darrius Orr MD [address] [facility] [address] [place] [phone] Referring Internal Medicine 11/16/24 documented as of this encounter
--- OUTSIDE RECORDS SUMMARY | 2025-04-18 22:54 | XMS_ITS | Encounter Summary ---
Author Organization [facility] Address [address] [facility] [place] [address] Care Team Providers Care Pediatric Radiologist Name Role Phone Darrius Orr MD Unavailable [phone] Darrius Orr MD Primary Care Provider [phone] Aiden Linares DPM Unavailable [phone] Kai Gutierres DO Unavailable [phone] Encounter Details Date Type Department Care Team ([facility] Contact Info) Description 02/24/2024 Orders Only [facility] [address] [facility] [address] [place] [address] A, Unknown Practice [address] [place], [place] [id number] Social History Tobacco Use Types Packs/Day Years [...] all 02/25/2024 2:00 PM EDT Trinity Siddiqui LPN Feeling down, depressed, or hopeless Not at all 02/25/2024 2:00 PM EDT Trinity Siddiqui L PN Patient Health Questionnaire -2 Score 0 02/25/2024 2:00 PM EDT Trinity Siddiqui L PN documented as of this encounter Plan of Treatment Upcoming Encounters Date Type Department Care Team (Late st Contact Info) Description 05/05/2025 1:15 PM EDT Office Visit [facility] [address] [place] [address] Bina Faye MD [address] [place] [address] 06/06/2025 2:00 PM EST Office Visit [facility] [address] [place] [address] 07/18/2025 3:15 PM EST Procedure Visit [facility] [address] [place] [address] Susie Mary DPM [address] [place] [address] documented as of this encounter Procedures Procedure Name Priority Date/Time Associated Diagnosis Comments DIABETIC RETINOPATHY SCREENING - OU - BOTH EYES Routine 04/29/2024 3:46 PM EDT HM DIABETES EYE EXAM Routine 02/24/2024 4:02 PM [...] on filedocumented in this encounter Care Teams Pediatric Radiologist Relationship Specialty Start Date End Date Darrius Orr MD [address] [facility] 230 [place] [address] PCP - [employer] 08/04/19 Darrius Orr MD [address] [place] [address] PCP - General Internal Medicine 12/31/22 Aiden Linares DPM [address] [facility] 100 [place] [address] Referring Physician Podiatry 10/30/23 Kai Gutierres DO [address] [facility] 353 [place] [address] Referring Physician Neurology 02/24/24 documented as of this encounter
--- OUTSIDE RECORDS SUMMARY | 2025-04-18 22:54 | XMS_ITS | Encounter Summary ---
Author Organization [facility] Address [address] [place] [address] Care Team Providers Care Curator Of Education Name Role Phone Camila Rodriguez MD Primary Care Provider +[phone] Lizeth Tillman MD Primary Care Provider +[phone] Clinton Gonzales MD Primary Care Provider + [phone] Rich Chun MD Primary Care Provider [phone] Wally Monroe MD Primary Care Provider +[phone] Rich Chun MD Primary Care Provider [phone] Wally Monroe MD Primary Care Provider +[phone] Rich Chun MD Primary Care Provider +[phone] Adebayo Reddy MD Primary Care Provider +[phone] Ed Alfredo DO Primary Care Provider +[phone] Darrius Orr MD Primary Care Provider +[phone] Darrius Orr MD Unavailable [phone] Source Comments In the event this information is protected by the Federal Confidentiality of Alcohol and Drug AbusePatient Records regulations: The Federal rules restrict any use of the information to criminally investigate or prosecute any alcohol or drug abuse patient.[facility] Encounter Details Date Type Department Care Team (Late st Contact Info) Description 04/01/2006 Patient Msg Medical Records [address] [place] [address] Provider, Ccf RE: Appointment Cancellation Request Social [...] 1:00 PM EDT Office Visit [facility] [address] [facility] [place] [address] Caitlin Estrada MD [address] [place] [address] New patient eveduin 05/16/2025 10:00 AM EDT Office Visit Rheumatology 5700 [facility] [place] [address] Priscilla Mckee MD [address] [facility] [place] [address] Psoriatic Arthritis 07/04/2025 11:30 AM EST Office Visit Neurology [address] [place] [address] Fide Boucher DO [address] [place] [address] 3 month f/u documented as of this encounter Visit Diagnoses Not on filedocumented in this encounter Care Teams Curator Of Education Relationship Specialty Start Date End Date Camila Rodriguez MD [address] [facility] [place] [address] PCP - General 10/13/09 12/28/12 Lizeth Tillman MD [address] [facility] [place] [address] PCP - General 08/16/09 10/12/09 Clinton Gonzales MD [address] [facility] [place] [address] PCP - General 09/02/08 08/15/09 Rich Chun MD [address] [place] [address] PCP - General 11/27/06 09/01/08 Wally Monroe MD [address] [place] [address] PCP - General 10/29/06 11/26/06 Rich Chun MD [address] [place] [address] PCP - General 10/28/06 10/28/06 Wally Monroe MD [address] [place] [address] PCP - General 10/15/06 10/27/06 Rich Chun MD [address] [facility] [place] [address] PCP - General 11/07/05 10/14/06 Adebayo Reddy MD [address] [place] [address] PCP - General Family Medicine 12/29/12 08/15/14 Ed Alfredo DO [address] [place] [address] PCP - General Family Medicine 08/16/14 08/31/19 Darrius Orr MD [address] [place] [address] PCP - General Internal Medicine 09/01/19 Darrius Orr MD [address] [place] [address] Referring Internal Medicine 11/16/24 documented as of this encounter
--- OUTSIDE RECORDS SUMMARY | 2025-04-18 22:54 | XMS_ITS | Encounter Summary ---
Author Organization [facility] Address [address] [place] [address] Care Team Providers Care Almond Sorter Name Role Phone Camila Rodriguez MD Primary Care Provider [phone] Lizeth Tillman MD Primary Care Provider +[phone] Clinton Gonzales MD Primary Care Provider + [phone] Rich Chun MD Primary Care Provider [phone] Wally Monroe MD Primary Care Provider +[phone] Rich Chun MD Primary Care Provider +[phone] Wally Monroe MD Primary Care Provider +[phone] Rich Chun MD Primary Care Provider +[phone] Adebayo Reddy MD Primary Care Provider +[phone] Ed Alfredo DO Primary Care Provider +[phone] Darrius Orr MD Primary Care Provider +[phone] Darrius Orr MD Unavailable [phone] Source Comments In the event this information is protected by the Federal Confidentiality of Alcohol and Drug AbusePatient Records regulations: The Federal rules restrict any use of the information to criminally investigate or prosecute any alcohol or drug abuse patient.[facility] Encounter Details Date Type Department Care Team (Late st Contact Info) Description 06/27/2006 Patient Msg Medical Records [address] [place] [address] Provider, Ccf RE: Appointment Cancellation Request Social [...] 1:00 PM EDT Office Visit [facility] [address] [facility] [place] [address] Caitlin Estrada MD [address] [place] [address] New patient caroline 05/16/2025 10:00 AM EDT Office Visit Rheumatology 57[address] [facility] [place] [address] Priscilla Mckee MD [address] [facility] [place] [address] Psoriatic Arthritis 07/04/2025 11:30 AM EST Office Visit Neurology 9[address] [place] [address] Fide Boucher DO [address] [place] [address] 3 month f/u documented as of this encounter Visit Diagnoses Not on filedocumented in this encounter Care Teams Almond Sorter Relationship Specialty Start Date End Date Camila Rodriguez MD [address] [facility] [place] [address] PCP - General 10/13/09 12/28/12 Lizeth Tillman MD [address] [facility] [place] [address] PCP - General 08/16/09 10/12/09 Clinton Gonzales MD [address] [facility] [place] [address] PCP - General 09/02/08 08/15/09 Rich Chun MD [address] [place] [address] PCP - General 11/27/06 09/01/08 Wally Monroe MD [address] [place] [address] PCP - General 10/29/06 11/26/06 Rich Chun MD [address] [place] [address] PCP - General 10/28/06 10/28/06 Wally Monroe MD [address] [place] [address] PCP - General 10/15/06 10/27/06 Rich Chun MD [address] [facility] [place] [address] PCP - General 11/07/05 10/14/06 Adebayo Reddy MD [address] [place] [address] PCP - General Family Medicine 12/29/12 08/15/14 Ed Alfredo DO [address] [place] [address] PCP - General Family Medicine 08/16/14 08/31/19 Darrius Orr MD [address] [place] [address] PCP - General Internal Medicine 09/01/19 Darrius Orr MD [address] [place] [address] Referring Internal Medicine 11/16/24 documented as of this encounter
--- OUTSIDE RECORDS SUMMARY | 2025-04-18 22:54 | XMS_ITS | Encounter Summary ---
Author Organization [facility] Address [address] [place] [address] Care Team Providers Care Banquet Server Name Role Phone Camila Rodriguez MD Primary Care Provider [phone] iLzeth Tillman MD Primary Care Provider [phone] Clinton Gonzales MD Primary Care Provider + [phone] Rich Chun MD Primary Care Provider [phone] Wally Monroe MD Primary Care Provider [phone] Rich Chun MD Primary Care Provider +[phone] Wally Monroe MD Primary Care Provider [phone] Rich Chun MD Primary Care Provider +[phone] Adebayo Reddy MD Primary Care Provider +[phone] Ed Alfredo DO Primary Care Provider +[phone] Darrius Orr MD Primary Care Provider [phone] Darrius Orr MD Unavailable [phone] Source Comments In the event this information is protected by the Federal Confidentiality of Alcohol and Drug AbusePatient Records regulations: The Federal rules restrict any use of the information to criminally investigate or prosecute any alcohol or drug abuse patient.[facility] Encounter Details Date Type Department Care Team (Late st Contact Info) Description 05/26/2006 Patient Msg Medical Records [address] [place] [address] Provider, Ccf RE: Appointment Cancellation Request Social [...] Description 05/06/2025 1:00 PM EDT Office Visit [facility] [address] [facility] [place] [address] Caitlin Estrada MD [address]00 [place] [address] New patient eveduin 05/16/2025 10:00 AM EDT Office Visit Rheumatology 5700 [facility] [place] [address] Priscilla Mckee MD [address] [facility] [place] [address] Psoriatic Arthritis 07/04/2025 11:30 AM EST Office Visit Neurology 9[address] [place] [address] Fide Boucher DO [address] [place] [address] 3 month f/u documented as of this encounter Visit Diagnoses Not on filedocumented in this encounter Care Teams Banquet Server Relationship Specialty Start Date End Date Camila Rodriguez MD [address] [facility] [place] [address] PCP - General 10/13/09 12/28/12 Lizeth Tillman MD [address] [facility] [place] [address] PCP - General 08/16/09 10/12/09 Clinton Gonzales MD [address] [facility] [address] PCP - General 09/02/08 08/15/09 Rich Chun MD [address] [place] [address] PCP - General 11/27/06 09/01/08 Wally Monroe MD [address] [place] [address] PCP - General 10/29/06 11/26/06 Rich Chun MD [address] [place] [address] PCP - General 10/28/06 10/28/06 Wally Monroe MD [address] [place] [address] PCP - General 10/15/06 10/27/06 Rich Chun MD [address] [facility] [place] [address] PCP - General 11/07/05 10/14/06 Adebayo Reddy MD [address] [place] [address] PCP - General Family Medicine 12/29/12 08/15/14 Ed Alfredo DO [address] [place] [address] PCP - General Family Medicine 08/16/14 08/31/19 Darrius Orr MD [address] [place] [address] PCP - General Internal Medicine 09/01/19 Darrius Orr MD [address] [place] [address] Referring Internal Medicine 11/16/24 documented as of this encounter
--- OUTSIDE RECORDS SUMMARY | 2025-04-18 22:54 | XMS_ITS | Encounter Summary ---
Author Organization [facility] Address [facility] [place] [address] Care Team Providers Care Animal Breeder Name Role Phone Adebayo Reddy MD Primary Care Provider [phone] Ed Alfredo DO Primary Care Provider [phone] Darrius Orr MD Primary Care Provider [phone] Darrius Orr MD Unavailable [phone] Source Comments In the event this information is protected by the Federal Confidentiality of Alcohol and Drug AbusePatient Records regulations: The Federal rules restrict any use of the information to criminally investigate or prosecute any alcohol or drug abuse patient.[facility] Encounter Details Date Type Department Care Team (Late st Contact Info) Description 06/25/2013 Patient Msg Medical Records [address] [place] [address] Provider, Ccf Appointment Cancellation Request Social History [...] Description 05/06/2025 1:00 PM EDT Office Visit [facility] [address] [place] [address] Caitlin Estrada MD [address] [place] [address] New patient eval 05/16/2025 10:00 AM EDT Office Visit Rheumatology 5700 [place] [address] Priscilla Mckee MD [address] [place] [address] Psoriatic Arthritis 07/04/2025 11:30 AM EST Office Visit Neurology [address] [place] [address] Fide Boucher DO [address] [place] [address] 3 month f/u documented as of this encounter Visit Diagnoses Not on filedocumented in this encounter Care Teams Animal Breeder Relationship Specialty Start Date End Date Adebayo Reddy MD [address] [place] [address] [place] [address] PCP - General Family Medicine 12/29/12 08/15/14 Ed Alfredo DO [address] [place] [address] [place] [address] PCP - General Family Medicine 08/16/14 08/31/19 Darrius Orr MD [address] [address] PCP - General Internal Medicine 09/01/19 Darrius Orr MD [address] [place] [id number] Referring Internal Medicine 11/16/24 documented as of this encounter
--- OUTSIDE RECORDS SUMMARY | 2025-04-18 22:54 | XMS_ITS | Encounter Summary ---
Author Organization [facility] Address [facility] [place] [address] Care Team Providers Care Research Program Intern Name Role Phone Camila Rodriguez MD Primary Care Provider + [phone] Lizeth Tillman MD Primary Care Provider +[phone] Clinton Gonzales MD Primary Care Provider + [phone] Rich Chun MD Primary Care Provider + [phone] Adebayo Reddy MD Primary Care Provider [phone] Ed Alfredo DO Primary Care Provider [phone] Darrius Orr MD Primary Care Provider [phone] Darrius Orr MD Unavailable [phone] Source Comments In the event this information is protected by the Federal Confidentiality of Alcohol and Drug AbusePatient Records regulations: The Federal rules restrict any use of the information to criminally investigate or prosecute any alcohol or drug abuse patient.[facility] Encounter Details Date Type Department Care Team (Late st Contact Info) Description 10/13/2007 Patient Msg Medical Records [address] [place] [address] Provider, Ccf Appointment Request form Social History [...] 1:00 PM EDT Office Visit [facility] [address] [facility] [place] [place] [address] Caitlin Estrada MD [address] [place], [place] [address] New patient caroline 05/16/2025 10:00 AM EDT Office Visit Rheumatology 57[address] [facility] [place] [address] Priscilla Mckee MD [address] [facility] [place] [address] Psoriatic Arthritis 07/04/2025 11:30 AM EST Office Visit Neurology [address] [place] [address] Fide Boucher DO [address] [place] [address] 3 month f/u documented as of this encounter Visit Diagnoses Not on filedocumented in this encounter Care Teams Research Program Intern Relationship Specialty [place] [address] [place] [address] [place] [address] PCP - General 10/13/09 12/28/12 [place] [address] [place] [address] [place] [address] PCP - General 08/16/09 10/12/09 Clinton Gonzales MD [address] [facility] [place] [address] PCP - General 09/02/08 08/15/09 Rich Chun MD [address] [facility] [place] [address] PCP - General 11/27/06 09/01/08 Adebayo Reddy MD [address] [facility] [address] [place] [address] PCP - General Family Medicine 12/29/12 08/15/14 Ed Alfredo DO [address] [facility] [address] [place] [address] PCP - General Family Medicine 08/16/14 08/31/19 Darrius Orr MD [address] [facility] [address] [place] [address] PCP - General Internal Medicine 09/01/19 Darrius Orr MD [address] [place] [address] Referring Internal Medicine 11/16/24 documented as of this encounter
--- OUTSIDE RECORDS SUMMARY | 2025-04-18 22:54 | XMS_ITS | Encounter Summary ---
Author Organization [facility] Address [address] [place] [address] Care Team Providers Care Electrical Logging Engineer Name Role Phone Camila Rodriguez MD Primary Care Provider [phone] Lizeth Tillman MD Primary Care Provider [phone] Clinton Gonzales MD Primary Care Provider + [phone] Rich Chun MD Primary Care Provider [phone] Wally Monroe MD Primary Care Provider +[phone] Rich Chun MD Primary Care Provider +[phone] Wally Monroe MD Primary Care Provider [phone] Rich Chun MD Primary Care Provider +[phone] Adebayo Reddy MD Primary Care Provider +[phone] Ed Alfredo DO Primary Care Provider +[phone] Darrius Orr MD Primary Care Provider [phone] Darrius Orr MD Unavailable [phone] Source Comments In the event this information is protected by the Federal Confidentiality of Alcohol and Drug AbusePatient Records regulations: The Federal rules restrict any use of the information to criminally investigate or prosecute any alcohol or drug abuse patient.[facility] Encounter Details Date Type Department Care Team (Late st Contact Info) Description 03/21/2006 Patient Msg Medical Records [address] [place] [address] Provider, Ccf RE: Appointment Cancellation Request Social [...] 1:00 PM EDT Office Visit [facility] [address] [facility] [place] [address] Caitlin Estrada MD [address] [place] [address] New patient eveduin 05/16/2025 10:00 AM EDT Office Visit Rheumatology [address] [facility] [place] [address] Priscilla Mckee MD [address] [facility] [place] [address] Psoriatic Arthritis 07/04/2025 11:30 AM EST Office Visit Neurology [address] [place] [address] Fide Boucher DO [address] [place] [address] 3 month f/u documented as of this encounter Visit Diagnoses Not on filedocumented in this encounter Care Teams Electrical Logging Engineer Relationship Specialty Start Date End Date Camila Rodriguez MD [address] [facility] [place] [address] PCP - General 10/13/09 12/28/12 Lizeth Tillman MD [address] [facility] [place] [address] PCP - General 08/16/09 10/12/09 Clinton Gonzales MD [address] [facility] [place] [address] PCP - General 09/02/08 08/15/09 Rich Chun MD [address] [place] [address] PCP - General 11/27/06 09/01/08 Wally Monroe MD [address] [place] [address] PCP - General 10/29/06 11/26/06 Rich Chun MD [address] [place] [address] PCP - General 10/28/06 10/28/06 Wally Monroe MD [address] [place] [address] PCP - General 10/15/06 10/27/06 Rich Chun MD [address] [facility] [place] [address] PCP - General 11/07/05 10/14/06 Adebayo Reddy MD [address] [place] [address] PCP - General Family Medicine 12/29/12 08/15/14 Ed Alfredo DO [address] [place] [address] PCP - General Family Medicine 08/16/14 08/31/19 Darrius Orr MD [address] [place] [address] PCP - General Internal Medicine 09/01/19 Darrius Orr MD [address] [place] [address] Referring Internal Medicine 11/16/24 documented as of this encounter
--- OUTSIDE RECORDS SUMMARY | 2025-04-18 22:54 | XMS_ITS | Encounter Summary ---
Author Organization [facility] Address [facility] [place] [address] Care Team Providers Care Motion Picture Camera Lens Technician Name Role Phone Camila Rodriguez MD Primary Care Provider + [phone] Lizeth Tillman MD Primary Care Provider [phone] Clinton Gonzales MD Primary Care Provider + [phone] Rich Chun MD Primary Care Provider + [phone] Adebayo Reddy MD Primary Care Provider [phone] Ed Alfredo DO Primary Care Provider +[phone] Darrius Orr MD Primary Care Provider +[phone] Darrius Orr MD Unavailable [phone] Source Comments In the event this information is protected by the Federal Confidentiality of Alcohol and Drug AbusePatient Records regulations: The Federal rules restrict any use of the information to criminally investigate or prosecute any alcohol or drug abuse patient.[facility] Encounter Details Date Type Department Care Team ([facility] st Contact Info) Description 07/01/2007 Patient Msg Medical Records [address] [place] [address] Provider, Ccf RE: Appointment Cancellation Request Social [...] EDT Office Visit [facility] [address] [facility] [place] [place] [address] Caitlin Estrada MD [address] [place], [place] [address] New patient eveduin 05/16/2025 10:00 AM EDT Office Visit Rheumatology 5700 [facility] [place] [address] Priscilla Mckee MD [address] [facility] [place] [address] Psoriatic Arthritis 07/04/2025 11:30 AM EST Office Visit Neurology [address] [place] [address] Fide Boucher DO [address] [place] [address] 3 month f/u documented as of this encounter Visit Diagnoses Not on filedocumented in this encounter Care Teams Motion Picture Camera Lens Technician Relationship Specialty Start Date End Date Camila Rodriguez MD [address] [place] [address] [place] [address] PCP - General 10/13/09 12/28/12 Lizeth Tillman MD [address] [place] [address] [place] [address] PCP - General 08/16/09 10/12/09 Clinton Gonzales MD [address] [place] [address] PCP - General 09/02/08 08/15/09 Rich Chun MD [address] [facility] [place] [address] PCP - General 11/27/06 09/01/08 Adebayo Reddy MD [address] [facility] [place] [address] PCP - General Family Medicine 12/29/12 08/15/14 Ed Alfredo DO [address] [facility] [place] [address] PCP - General Family Medicine 08/16/14 08/31/19 Darrius Orr MD [address] [place] [address] PCP - General Internal Medicine 09/01/19 Darrius Orr MD [address] [place] [address] Referring Internal Medicine 11/16/24 documented as of this encounter
--- OUTSIDE RECORDS SUMMARY | 2025-04-18 22:54 | XMS_ITS | Encounter Summary ---
Author Organization [facility] Address [address] [place] [address] Care Team Providers Care Server Support Technician Name Role Phone Camila Rodriguez MD Primary Care Provider [phone] Lizeth Tillman MD Primary Care Provider [phone] Clinton Gonzales MD Primary Care Provider + [phone] Rich Chun MD Primary Care Provider [phone] Wally Monroe MD Primary Care Provider [phone] Rich Chun MD Primary Care Provider [phone] Wally [place] MD Primary Care Provider [phone] Rich Chun MD Primary Care Provider [phone] Adebayo Reddy MD Primary Care Provider [phone] Ed Alfredo DO Primary Care Provider [phone] Darrius Orr MD Primary Care Provider [phone] Darrius Orr MD Unavailable [phone] Source Comments In the event this information is protected by the Federal Confidentiality of Alcohol and Drug AbusePatient Records regulations: The Federal rules restrict any use of the information to criminally investigate or prosecute any alcohol or drug abuse patient.[facility] Encounter Details Date Type Department Care Team (Late st Contact Info) Description 04/28/2006 Patient Msg Medical Records [address] [place] [address] Provider, Ccf RE: Appointment Cancellation Request Social [...] [facility] [address] [facility] [place] [address] Caitlin Estrada MD [address]00 [place] [address] New patient eveduin 05/16/2025 10:00 AM EDT Office Visit Rheumatology 5700 [facility] [place] [address] Priscilla Mckee MD [address] [facility] [place] [address] Psoriatic Arthritis 07/04/2025 11:30 AM EST Office Visit Neurology [address] [place] [address] Fide Boucher DO [address] [place] [address] 3 month f/u documented as of this encounter Visit Diagnoses Not on filedocumented in this encounter Care Teams Server Support Technician Relationship Specialty Start Date End Date Camila Rodriguez MD [address] [facility] [place] [address] PCP - General 10/13/09 12/28/12 Lizeth Tillman MD [address] [facility] [place] [address] PCP - General 08/16/09 10/12/09 Clinton Gonzales MD [address] [facility] [place] [address] PCP - General 09/02/08 08/15/09 Rich Chun MD [address] [place] [address] PCP - General 11/27/06 09/01/08 Wally [place] MD [address] [place] [address] PCP - General 10/29/06 11/26/06 Rich Chun MD [address] [place] [address] PCP - General 10/28/06 10/28/06 Wally [place] MD [address] [place] [address] PCP - General 10/15/06 10/27/06 Rich Chun MD [address] [facility] [place] [address] PCP - General 11/07/05 10/14/06 Adebayo Reddy MD [address] [place] [address] PCP - General Family Medicine 12/29/12 08/15/14 Ed Alfredo DO [address] [place] [address] PCP - General Family Medicine 08/16/14 08/31/19 Darrius Orr MD [address] [place] [address] PCP - General Internal Medicine 09/01/19 Darrius Orr MD [address] [place] [address] Referring Internal Medicine 11/16/24 documented as of this encounter
--- OUTSIDE RECORDS SUMMARY | 2025-04-18 22:54 | XMS_ITS | Encounter Summary ---
Author Organization [facility] Address [address] [place] [address] Care Team Providers Care Cigar Bander Name Role Phone Darrius Orr MD Unavailable [phone] Darrius Orr MD Primary Care Provider [phone] Aiden Linares DPM Unavailable [phone] Kai Gutierres DO Unavailable [phone] Encounter Details Date Type Department Care Team (Latest Contact Info) Description 01/31/2025 Results Follow-Up [facility] Internal Medicine [address] [facility] 230 [place] [address] Srikanth Horvath, PRODUCTION MAINTENANCE TECHNICIAN [address] [facility] 230 [place] [address] Comprehensive metabolic panel Social History Tobacco Use Types [...] Miscellaneous Notes * Result Encounter Note - Darci Montgomery MA - 01/31/2025 11:42 AM EDT Patient informed of the below informed. He said the Soma did help. * Result Encounter Note - Srikanth Horvath NP - 01/31/2025 9:18 AM EDT Advise pt that his alk phos a liver enzyme remains elevated and his other LFTs are normal. His sodium, potassium and kidneys are normal. How did the soma help this weekend? documented in this encounter Plan of Treatment Upcoming Encounters Date Type Department Care Team (Late st Contact Info) Description 05/05/2025 1:15 PM EDT Office Visit [facility] Eye [address] [place] [address] Bina Faye MD [address] [place] [address] 06/06/2025 2:00 PM EST Office Visit [facility] [place] [facility] [address] [place] [address] 07/18/2025 3:15 PM EST Procedure Visit [facility] [place] [facility] [address] [place] [address] Susie Mary DPM [address] [place] [address] documented as of this encounter Visit Diagnoses Not on filedocumented in this encounter Care Teams Cigar Bander Relationship Specialty Start Date End Date Darrius Orr MD [address] [facility] 230 [place] [address] PCP - Humana 08/04/19 Darrius Orr MD [address] [place] [address] PCP - General Internal Medicine 12/31/22 Aiden Linares DPM [address] [facility] [address] [place] [address] Referring Physician Podiatry 10/30/23 Kai Gutierres DO [address] [facility] 353 [place] [address] Referring Physician Neurology 02/24/24 documented as of this encounter
--- OUTSIDE RECORDS SUMMARY | 2025-04-18 22:55 | XMS_ITS | Encounter Summary ---
Author Organization [facility] Address [facility] [place] [address] Care Team Providers Care Parlor Chaperone Name Role Phone Camila Rodriguez MD Primary Care Provider + [phone] Lizeth Tillman MD Primary Care Provider [phone] Clinton [place] MD Primary Care Provider + [phone] Rich Chun MD Primary Care Provider [phone] Adebayo Reddy MD Primary Care Provider [phone] Ed Alfredo DO Primary Care Provider [phone] Darrius Orr MD Primary Care Provider [phone] Darrius Orr MD Unavailable [phone] Source Comments In the event this information is protected by the Federal Confidentiality of Alcohol and Drug AbusePatient Records regulations: The Federal rules restrict any use of the information to criminally investigate or prosecute any alcohol or drug abuse patient.[facility] Encounter Details Date Type Department Care Team (Late st Contact Info) Description 05/09/2008 Patient Msg Medical Records [address] [place] [address] Provider, Ccf Request an Appointment Social History [...] 1:00 PM EDT [facility] Visit [facility] [address] [facility] [place] [address] Caitlin Estrada MD [address] [place], [place] [address] New patient caroline 05/16/2025 10:00 AM EDT Office Visit Rheumatology 5700 [facility] [place] [address] Priscilla Mckee MD [address] [facility] [place] [place] [address] Psoriatic Arthritis 07/04/2025 11:30 AM EST Office Visit Neurology 9300 [place] [address] Fide Boucher DO [address] [place] [address] 3 month f/u documented as of this encounter Visit Diagnoses Not on filedocumented in this encounter Care Teams Parlor Chaperone Relationship Specialty [place] [address] [place] [address] [place] [address] PCP - General 10/13/09 12/28/12 [place] [address] [place] [address] [place] [address] PCP - General 08/16/09 10/12/09 Clinton [place] MD [address] [facility] [place] [address] PCP - General 09/02/08 08/15/09 Rich Chun MD [address] [facility] [place] [address] PCP - General 11/27/06 09/01/08 Adebayo Reddy MD [address] [facility] [address] [place] [address] PCP - General Family Medicine 12/29/12 08/15/14 Ed Alfredo DO [address] [facility] [address] [place] [address] PCP - General Family Medicine 08/16/14 08/31/19 Darrius Orr MD [address] [facility] 230 [place] [address] PCP - General Internal Medicine 09/01/19 Darrius Orr MD [address] [place] [address] Referring Internal Medicine 11/16/24 documented as of this encounter
--- OUTSIDE RECORDS SUMMARY | 2025-04-18 22:55 | XMS_ITS | Encounter Summary ---
Author Organization [facility] Address [address] [place] [address] Care Team Providers Care Fish Farm Manager Name Role Phone Adebayo Reddy MD Primary Care Provider [phone] Ed Alfredo DO Primary Care Provider [phone] Darrius Orr MD Primary Care Provider [phone] Darrius Orr MD Unavailable [phone] Source Comments In the event this information is protected by the Federal Confidentiality of Alcohol and Drug AbusePatient Records regulations: The Federal rules restrict any use of the information to criminally investigate or prosecute any alcohol or drug abuse patient.[facility] Encounter Details Date Type Department Care Team (Late st Contact Info) Description 01/04/2014 Patient Msg Medical Records [address] [place] [address] Provider, Ccf RE: Request an Appointment Social [...] Description 05/06/2025 1:00 PM EDT Office Visit [facility] 5700 [place] [address] Caitlin Estrada MD [address] [place] [address] New patient eval 05/16/2025 10:00 AM EDT Office Visit Rheumatology 5700 [place] [address] Priscilla Mckee MD [address] [place] [address] Psoriatic Arthritis 07/04/2025 11:30 AM EST Office Visit Neurology 9[address] [place] [address] Fide Boucher DO [address] [place] [address] 3 month f/u documented as of this encounter Visit Diagnoses Not on filedocumented in this encounter Care Teams Fish Farm Manager Relationship Specialty Start Date End Date Adebayo Reddy MD [address] [place] [place] [place] [address] PCP - General Family Medicine 12/29/12 08/15/14 Ed Alfredo DO [address] [place] [address] PCP - General Family Medicine 08/16/14 08/31/19 Darrius Orr MD [address] [address] PCP - General Internal Medicine 09/01/19 Darrius Orr MD [address] [facility] [address] [place] [address] Referring Internal Medicine 11/16/24 documented as of this encounter
--- OUTSIDE RECORDS SUMMARY | 2025-04-18 22:55 | XMS_ITS | Encounter Summary ---
Author Organization [facility] Address [address] [place] [address] Care Team Providers Care Tool/Die Maker Name Role Phone Darrius Orr MD Unavailable [phone] Darrius Orr MD Primary Care Provider [phone] Aiden Linares DPM Unavailable [phone] Kai Gutierres DO Unavailable [phone] Encounter Details Date Type Department Care Team (Late Contact Info) Description 11/05/2024 Orders Only [facility] [address] [place] [address] Arpan Ross MD [address] [facility] 120 [place] [address] Social History Tobacco Use Types [...] 05/05/2025 1:15 PM EDT Office Visit [facility] [address] [place] [address] Bina Faye MD [address] [place] [address] 06/06/2025 2:00 PM EST Office Visit [facility] [address] [place] [address] 07/18/2025 3:15 PM EST Procedure Visit [facility] [address] [place] [address] Susie Mary DPM [address] [place] [address] documented as of this encounter Procedures Procedure [...] on filedocumented in this encounter Care Teams Tool/Die Maker Relationship Specialty Start Date End Date Darrius Orr MD [address] [place] [address] PCP - Humana 08/04/19 Darrius Orr MD [address] [place] [address] PCP - General Internal Medicine 12/31/22 Aiden Linares DPM [address] [facility] 100 [place] [address] Referring Physician Podiatry 10/30/23 Kai Gutierres DO [address] [facility] 353 [place] [address] Referring Physician Neurology 02/24/24 documented as of this encounter
--- OUTSIDE RECORDS SUMMARY | 2025-04-18 22:55 | XMS_ITS | Encounter Summary ---
Author Organization [facility] Address [address] [facility] [address] Care Team Providers Care Web Development Instructor Name Role Phone Darrius Orr MD Unavailable [phone] Darrius Orr MD Primary Care Provider [phone] Aiden Linares DPM Unavailable [phone] Kai Gutierres DO Unavailable [phone] Encounter Details Date Type Department Care Team ([facility] Contact Info) Description 12/10/2024 Orders Only [facility] [address] [facility] [address] [place] [address] Unallocated, Noms Provider, [address] [place] [address] Social History Tobacco Use Types Packs/Day Years [...] 05/05/2025 1:15 PM EDT Office Visit [facility] [address] [place] [address] Bina Faye MD [address] [place] [address] 06/06/2025 2:00 PM EST Office Visit [facility] [address] [place] [address] 07/18/2025 3:15 PM EST Procedure Visit [facility] [address] [place] [address] Susie Mary DPM [address] [place] [address] documented as of this encounter Procedures Procedure Name Priority Date/Time Associated Diagnosis Comments SUPERFICIAL WOUND CULTURE ([facility]) Routine 12/02/2024 11:11 AM [...] S Final Result * SUPERFICIAL WOUND CULTURE ([facility]) (12/02/2024 11:11 AM EDT) Topography unknown / Unknown us Noms Provider Unallocated LAB MICROBIOLOGY - GENERAL ORDERABLES Final Result documented in this encounter Visit Diagnoses Not on filedocumented in this encounter Care Teams Web Development Instructor Relationship Specialty Start Date End Date Darrius Orr MD [address] [place] [address] PCP - Humana 08/04/19 Darrius Orr MD [address] [place] [address] PCP - General Internal Medicine 12/31/22 Aiden Linares DPM [address] [place] [address] Referring Physician Podiatry 10/30/23 Kai Gutierres DO 703 [facility] 353 [place] [address] Referring Physician Neurology 02/24/24 documented as of this encounter
--- OUTSIDE RECORDS SUMMARY | 2025-04-18 22:55 | XMS_ITS | Encounter Summary ---
Author Organization [facility] Address [address] [place] [address] Care Team Providers Care Biology Specimen Technician Name Role Phone Camila Rodriguez MD Primary Care Provider [phone] Lizeth Tillman MD Primary Care Provider [phone] Adebayo Reddy MD Primary Care Provider [phone] Ed Alfredo DO Primary Care Provider [phone] Darrius Orr MD Primary Care Provider [phone] Darrius Orr MD Unavailable [phone] Source Comments In the event this information is protected by the Federal Confidentiality of Alcohol and Drug AbusePatient Records regulations: The Federal rules restrict any use of the information to criminally investigate or prosecute any alcohol or drug abuse patient.[facility] Encounter Details Date Type Department Care Team (Late st Contact Info) Description 09/26/2009 Patient Msg Medical Records [address] [place] [address] Provider, Ccf RE: Request an Appointment Social [...] PM EDT [facility] [address] [facility] [place] [address] Caitlin Estrada MD [address] [place] [address] New patient eval 05/16/2025 10:00 AM EDT Office Visit Rheumatology 5700 [facility] [place] [address] Priscilla Mckee MD [address] [facility] [place] [place] [address] Psoriatic Arthritis 07/04/2025 11:30 AM EST Office Visit Neurology [address] [place] [address] Fide Boucher DO [address] [place] [address] 3 month f/u documented as of this encounter Visit Diagnoses Not on filedocumented in this encounter Care Teams Biology Specimen Technician Relationship Specialty [place] [address] [place] [address] [place] [address] PCP - General 10/13/09 12/28/12 Lizeth Tillman MD [address] [place] [address] [place] [address] PCP - General 08/16/09 10/12/09 Adebayo Reddy MD [address] [facility] [address] [place] [address] PCP - General Family Medicine 12/29/12 08/15/14 Ed Alfredo DO [address] [place] [address] PCP - General Family Medicine 08/16/14 08/31/19 Darrius Orr MD [address] [place] [address] PCP - General Internal Medicine 09/01/19 Darrius Orr MD [address] [place] [address] Referring Internal Medicine 11/16/24 documented as of this encounter
--- OUTSIDE RECORDS SUMMARY | 2025-04-18 22:55 | XMS_ITS | Encounter Summary ---
Author Organization [facility] Address [address] [facility] [address] Care Team Providers Care Nanny/Household Manager Name Role Phone Darrius Orr MD Unavailable [phone] Darrius Orr MD Primary Care Provider [phone] Aiden Linares DPM Unavailable [phone] Kai Gutierres DO Unavailable [phone] Encounter Details Date Type Department Care Team (Late st Contact Info) Description 03/07/2025 Orders Only [facility] [address] [facility] [address] [place] [address] Bhavesh Reveles, DO [address] [facility] [facility] [address] Social History Tobacco Use Types Packs/Day Years [...] 05/05/2025 1:15 PM EDT Office Visit [facility] [address] [place] [address] Bina Faye MD [address] [place] [address] 06/06/2025 2:00 PM EST Office Visit [facility] [place] [facility] [address] [place] [address] 07/18/2025 3:15 PM EST Procedure Visit [facility] [place] [facility] [address] [place] [address] Susie Mary DPM [address] [place] [address] documented as of this encounter Procedures Procedure Name Priority Date/Time Associated Diagnosis Comments GENERAL PATHOLOGY Routine 02/28/2025 2:53 PM EDT documented in this encounter Results * GENERAL PATHOLOGY (02/28/2025 2:53 PM EDT) Bhavesh Reveles DO [facility] Final Resul t documented in this encounter Visit Diagnoses Not on filedocumented in this encounter Care Teams Nanny/Household Manager Relationship Specialty Start Date End Date Darrius Orr MD [address] [place] [address] PCP - Humana 08/04/19 Darrius Orr MD [address] [place] [address] PCP - General Internal Medicine 12/31/22 Aiden Linares DPM [address] [facility] 100 [place] [address] Referring Physician Podiatry 10/30/23 Kai Gutierres DO 703 [facility] 353 [place] [address] Referring Physician Neurology 02/24/24 documented as of this encounter
--- OUTSIDE RECORDS SUMMARY | 2025-04-18 22:55 | XMS_ITS | Encounter Summary ---
Author Organization [facility] Address [address] [place] [address] Care Team Providers Care Tub Mender Name Role Phone Darrius Orr MD Unavailable [phone] Darrius Orr MD Primary Care Provider [phone] Aiden Linares DPM Unavailable [phone] Kai Gutierres DO Unavailable [phone] Encounter Details Date Type Department Care Team ([facility] Contact Info) Description 02/16/2025 Results Follow-Up [facility] Internal Medicine [address] [facility] [address] [place] [address] Adela Gross, EMMA [address] [facility] 230 [place] [address] MR brain wo contrast Social History Tobacco Use Types Packs/Day Years [...] 05/05/2025 1:15 PM EDT Office Visit [facility] [address] [place] [address] Bina Faye MD [address] [place] [address] 06/06/2025 2:00 PM EST Office Visit [facility] [address] [place] [address] 07/18/2025 3:15 PM EST Procedure Visit [facility] [address] [place] [address] Susie Mary DPM [address] [place] [address] documented as of this encounter Visit Diagnoses Not on filedocumented in this encounter Care Teams Tub Mender Relationship Specialty Start Date End Date Darrisu Orr MD [address] [place] [address] PCP - Humana 08/04/19 Darrius Orr MD [address] [place] [address] PCP - General Internal Medicine 12/31/22 Aiden Linares DPM [address] [place] [address] Referring Physician Podiatry 10/30/23 Kai Gutierres DO [address] [address] Referring Physician Neurology 02/24/24 documented as of this encounter
--- OUTSIDE RECORDS SUMMARY | 2025-04-18 22:55 | XMS_ITS | Encounter Summary ---
Author Organization [facility] Address [address] [place] [address] Care Team Providers Care Brassiere Cup Mold Cutter Name Role Phone Adebayo Reddy MD Primary Care Provider Ed Alfredo DO Primary Care Provider [phone] Darrius Orr MD Primary Care Provider [phone] Darrius Orr MD Unavailable [phone] Source Comments In the event this information is protected by the Federal Confidentiality of Alcohol and Drug AbusePatient Records regulations: The Federal rules restrict any use of the information to criminally investigate or prosecute any alcohol or drug abuse patient.[facility] Encounter Details Date Type Department Care Team (Late st Contact Info) Description 02/28/2014 Patient Msg Medical Records [address] [place] [address] Provider, Ccf RE: Appointment Cancellation Request Social [...] Assessment Author No 02/28/2014 7:00 AM EDT Suze Cowartlyn (At)(Hist) * Are you blind or do you have serious difficulty seeing, even when wearing glasses? Answer Date of Assessment Author No 02/28/2014 7:00 AM EDT MyrandacsNguyen everettTherese (At)(Hist) * Do you have serious difficulty [...] Date Author No 02/28/2014 7:00 AM EDT Suze Cowartlyn (At)(Hist) documented in this encounter Plan of Treatment Upcoming Encounters Date Type Department Care Team (Late st Contact Info) Description 05/06/2025 1:00 PM EDT Office Visit [facility] [address] [place] [address] Caitlin Estrada MD [address] [place] [address] New patient eval 05/16/2025 10:00 AM EDT Office Visit Rheumatology [address] [place] [address] Priscilla Mckee MD [address] [place] [address] Psoriatic Arthritis 07/04/2025 11:30 AM EST Office Visit Neurology [address] [place] [address] Fide Boucher DO [address] [place] [address] 3 month f/u documented as of this encounter Visit Diagnoses Not on filedocumented in this encounter Care Teams Brassiere Cup Mold Cutter Relationship Specialty Start Date End Date Adebayo Reddy MD [address] [place] [address] PCP - General Family Medicine 12/29/12 08/15/14 Ed Alfredo DO [address] ON [facility] [place] [address] PCP - General Family Medicine 08/16/14 08/31/19 Darrius Orr MD [address] [place] [address] PCP - General Internal Medicine 09/01/19 Darrius Orr MD [address] [place] [address] Referring Internal Medicine 11/16/24 documented as of this encounter
--- OUTSIDE RECORDS SUMMARY | 2025-04-18 22:55 | XMS_ITS | Encounter Summary ---
Author Organization [facility] Address [address] [facility] [place] [address] Care Team Providers Care Manager Lsw Name Role Phone Darrius Orr MD Unavailable [phone] Darrius Orr MD Primary Care Provider [phone] Aiden Linares DPM Unavailable [phone] Kai Gutierres DO Unavailable [phone] Encounter Details Date Type Department Care Team ([facility] Contact Info) Description 12/24/2024 Orders Only [facility] [address] [place] [id number] Unallocated, Noms Provider, [address] [place] [address] Social History Tobacco Use Types Packs/Day Years [...] PM EDT Office Visit [facility] [address] [place] [address] Bina Faye MD [address] [place] [address] 06/06/2025 2:00 PM EST Office Visit [facility] [address] [place] [id number] 07/18/2025 3:15 PM EST [facility] [address] [place] [address] Susie Mary DPM [address] [place] [address] documented as of this encounter Procedures Procedure [...] filedocumented in this encounter Care Teams Manager Lsw Relationship Specialty Start Date End Date Darrius Orr MD [address] [place] [address] PCP - [employer] 08/04/19 Darrius Orr MD [address] [place] [address] PCP - General Internal Medicine 12/31/22 Aiden Linares DPM [address] [facility] [address] [place] [address] Referring Physician Podiatry 10/30/23 Kai Gutierres DO [address] [facility] [address] [place] [address] Referring Physician Neurology 02/24/24 documented as of this encounter
--- OUTSIDE RECORDS SUMMARY | 2025-04-18 22:55 | XMS_ITS | Encounter Summary ---
Author Organization [facility] Address [facility] [place] [address] Care Team Providers Care Emergency Department Director Name Role Phone Adebayo Reddy MD Primary Care Provider [phone] Ed Alfredo DO Primary Care Provider [phone] Darrius Orr MD Primary Care Provider [phone] Darrius Orr MD Unavailable [phone] Source Comments In the event this information is protected by the Federal Confidentiality of Alcohol and Drug AbusePatient Records regulations: The Federal rules restrict any use of the information to criminally investigate or prosecute any alcohol or drug abuse patient.[facility] Encounter Details Date Type Department Care Team (Late st Contact Info) Description 02/13/2014 Patient Msg Medical Records [address] [place] [address] Provider, [facility] Request an Appointment Social History [...] of Assessment Author No 02/11/2014 11:50 AM MARCELOT Harini Samuel MA * Do you have difficulty dressing or bathing? Answer Date of Assessment Author No 02/11/2014 11:50 AM EDT Harini Samuel MA * Because of a physical, mental, or emotional condition, do you have difficulty doing errands alone such as visiting a doctor's office or shopping? Answer Date of Assessment Author No 02/11/2014 11:50 AM EDT Harini Samuel MA documented as of this encounter Mental Status * Because of a physical, mental, or emotional condition, do you have serious difficulty concentrating, remembering, or making decisions? Answer Entry Date Author No 02/11/2014 11:50 AM MARCELOT Harini Samuel MA documented in this encounter Plan of Treatment Upcoming Encounters Date Type Department Care Team (Late st Contact Info) Description 05/06/2025 1:00 PM EDT Office Visit [facility] [address] [place] [address] Caitlin Estrada MD [address] [place] [address] New patient eval 05/16/2025 10:00 AM EDT Office Visit Rheumatology [address] [facility] [place] [address] Priscilla Mckee MD [address] [facility] [address] [facility] [place] [address] Psoriatic Arthritis 07/04/2025 11:30 AM EST Office Visit Neurology [address] [place] [address] Fide Boucher DO [address] [place] [address] 3 month f/u documented as of this encounter Visit Diagnoses Not on filedocumented in this encounter Care Teams Emergency Department Director Relationship Specialty Start Date End Date Adebayo Reddy MD [address] [facility] [place] [address] PCP - General Family Medicine 12/29/12 08/15/14 Ed Alfredo DO [address] [place] [address] PCP - General Family Medicine 08/16/14 08/31/19 Darrius Orr MD [address] [place] [address] PCP - General Internal Medicine 09/01/19 Darrius Orr MD [address] [place] [address] Referring Internal Medicine 11/16/24 documented as of this encounter
--- OUTSIDE RECORDS SUMMARY | 2025-04-18 22:55 | XMS_ITS | Encounter Summary ---
Author Organization [facility] Address [facility] [place] [address] Care Team Providers Care Repairer Veneer Sheet Name Role Phone Ed Alfredo DO Primary Care Provider [phone] Darrius Orr MD Primary Care Provider [phone] Darrius Orr MD Unavailable [phone] Source Comments In the event this information is protected by the Federal Confidentiality of Alcohol and Drug AbusePatient Records regulations: The Federal rules restrict any use of the information to criminally investigate or prosecute any alcohol or drug abuse patient.[facility] Encounter Details Date Type Department Care Team (Late st Contact Info) Description 08/17/2014 Patient Msg Medical Records [address] [place] [address] Provider, [facility] Research Invitation Social History Tobacco [...] Description 05/06/2025 1:00 PM EDT Office Visit [facility] [address] [place] [address] Caitlin Estrada MD [address] [place], [place] [id number] New patient eval 05/16/2025 10:00 AM EDT Office Visit Rheumatology [address] [place] [address] Priscilla Mckee MD [address] [place] [address] Psoriatic Arthritis 07/04/2025 11:30 AM EST Office Visit Neurology [address] [place] [address] Fide Boucher DO [address] [place] [address] 3 month f/u documented as of this encounter Visit Diagnoses Not on filedocumented in this encounter Care Teams Repairer Veneer Sheet Relationship Specialty Start Date End Date dE Alfredo DO PCP - General Family Medicine 08/16/14 08/31/19 Darrius Orr MD [address] [place] [address] PCP - General Internal Medicine 09/01/19 Darrius Orr MD [address] [place] [address] Referring Internal Medicine 11/16/24 documented as of this encounter
--- OUTSIDE RECORDS SUMMARY | 2025-04-18 22:55 | XMS_ITS | Clinical Summary ---
Author Organization [facility] Address [address] [place] [address] Care Team Providers Care Weaver Hand Name Role Phone Darrius Orr MD Unavailable [phone] Darrius Orr MD Primary Care Provider [phone] Aiden Linares DPM Unavailable [phone] Kai Gutierres DO Unavailable [phone] Allergies Active Allergy Reactions Criticality Noted Date Comments Duloxetine Diarrhea 03/01/2025 Duloxetine Hcl Low 08/12/2021 Other Reaction(s): intolerance Natalizumab Low 01/24/2015 Other Reaction(s): AOF Semaglutide Low 11/21/2020 Other Reaction(s): nausea and vomiting Other Reaction(s): Other: See Comments Chills, nightmares, diarrhea Verapamil GI intolerance 01/13/2025 Medications Lancets Micro Thin 33G misc 1 Lancet by In Vitro route if needed 020 Active Cannabinoids (medical cannabis) Active ocrelizumab (Ocrevus) 300 MG/10ML solution Infuse 600 mg into a venous catheter every 6 (six) months to absorb continuously Active metoprolol succinate XL (Toprol-XL) 100 MG 24 hr tabletIndications :Essential (primary) hypertension TAKE 1 TABLET BY MOUTH EVERY DAY 90 tablet 3 024 Active irbesartan (Avapro) 300 MG tabletIndications :Essential hypertension TAKE 1 TABLET BY MOUTH DAILY 90 tablet 6 025 Active ibuprofen 800 MG tabletIndications :Primary osteoarthritis involving multiple joints Take 1 tablet (800 mg) by mouth 3 (three) times a day as needed for mild pain 60 tablet 1 Active latanoprost (Xalatan) 0.005 % ophthalmic solution Administer 1 drop into both eyes at bedtime Will start drops tonight 01/27/25 Active empagliflozin (Jardiance) 25 MGIndications:Typ e 2 diabetes mellitus with diabetic neuropathy, with long-term current use of insulin ([facility]) Take 1 tablet (25 mg) by mouth Daily Pt given 2 weeks of samples to try for tolerance 90 tablet 2 025 Active rosuvastatin (Crestor) 20 MG tabletIndications :Mixed hyperlipidemia Take 1 tablet (20 mg) by mouth at bedtime 90 tablet 3 Active insulin degludec (Tresiba FlexTouch) 200 UNIT/ML injectionIndicati ons:Type 2 diabetes mellitus with stage 2 chronic kidney disease, with long-term current use of insulin ([facility]) Inject 100 Units under the skin at bedtime 36 mL Active insulin aspart (NovoLOG FLEXPEN) 100 UNIT/ML penIndications:Ty pe 2 diabetes mellitus with stage 2 chronic kidney disease, with long-term current use of insulin ([facility]) Inject 0-35 Units under the skin in the morning and 0-35 Units at noon and 0-35 Units in the evening. Inject with meals. Maximum of 105 units a day. 12 mL 025 Active Prednisolon-Moxif lox-Bromfenac 1-0.5-0.075 % solutionIndicatio ns:Cortical age-related cataract of both eyes Administer 1 drop into affected eye(s) in the morning and 1 drop at noon and 1 drop in the evening and 1 drop before bedtime. 10 mL 025 Active cyclobenzaprine (Flexeril) 5 MG tabletIndications :Bilateral low back pain without sciatica, unspecified chronicity Take 2 tablets (10 mg) by mouth 3 (three) times a day as needed for muscle spasms 30 tablet 025 Active amitriptyline (Elavil) 25 MG tabletIndications :Polyneuropathy associated with underlying disease ([facility]) Take 1 tablet (25 mg) by mouth at bedtime 30 tablet 5 025 2025 Active diclofenac sodium (Voltaren) 1 % gelIndications:Pr imary osteoarthritis involving multiple joints Apply 4 g topically 4 (four) times a day as needed for pain Active ofloxacin (Floxin) 0.3 % otic solution Twice daily Active pregabalin (Lyrica) 100 MG capsuleIndication s:Polyneuropathy associated with underlying disease (HCC) Take 1 capsule (100 mg) by mouth in the morning. 30 capsule 5 025 2025 Active pregabalin (Lyrica) 300 MG capsuleIndication s:Polyneuropathy associated with underlying disease (HCC) Take 1 capsule (300 mg) by mouth at bedtime 30 capsule 5 025 Active carisoprodol (Soma) 350 MG tabletIndications :Cervical paraspinal muscle spasm Take 1 tablet (350 mg) by mouth 2 (two) times a day as needed for muscle spasms 30 tablet 025 Active divalproex (Depakote ER) 500 MG 24 hr tablet Take by mouth Active clotrimazole (Lotrimin) 1 % cream Twice daily Active Atogepant 60 MG tablet Take 60 mg by mouth in the morning. 025 2024 Active ketoconazole (NIZOral) 2 % creamIndications: Other seborrheic dermatitis Apply thin layer to affected areas on face and chest bid 30 g 11 025 Active oxyCODONE-acetami nophen (Percocet) 5-325 MG tabletIndications :Spinal stenosis in cervical region Take 1-2 tablets by mouth every 6 (six) hours if needed for severe pain 90 tablet 025 Active ergocalciferol (Vitamin D-2) 1.25 MG (55342 UT) capsule Take 1.25 mg by mouth 1 (one) time per week Active ALPRAZolam (Xanax) 0.5 MG tabletIndications :Generalized anxiety disorder Take 1 tablet (0.5 mg) by mouth 2 (two) times a day as needed for anxiety 60 tablet 025 Active bimatoprost (Lumigan) 0.01 % ophthalmic solution Administer 1 drop into both eyes at bedtime 2024 Discontinued ergocalciferol (Vitamin D-2) 1.25 MG (76568 UT) capsuleIndication s:Vitamin D deficiency Take 1 capsule (1.25 mg) by mouth 1 (one) time per week 12 capsule 3 025 2024 Discontinued ALPRAZolam (Xanax) 0.5 MG tabletIndications :Generalized anxiety disorder Take 1 tablet (0.5 mg) by mouth 2 (two) times a day as needed for anxiety 60 tablet 025 2024 Discontinued(R eorder) oxyCODONE-acetami nophen (Percocet) 5-325 MG tabletIndications :Spinal stenosis in cervical region Take 1-2 tablets by mouth every 6 (six) hours if needed for severe pain 90 tablet 025 2024 Discontinued(R eorder) cephalexin (Keflex) 500 MG capsuleIndication s:Bacterial folliculitis Take 1 capsule by mouth, bid x 14 days. 28 capsule 025 2024 Discontinued(T herapy completed) Hospital, Clinic, or Other Facility Administered Medication Ordered Dose Route Frequency Start Date End Date Status ketorolac (Toradol) injection 60 mgIndications:History of migraine headaches 60 mg IM Once 04/18/2025 04/23/2025 Active Active Problems Problem Noted Date Diagnosed Date Intractable migraine without aura and with status migrainosus 12/30/2024 Mixed hyperlipidemia 09/18/2024 Stage 2 chronic kidney disease 07/04/2024 Type 2 diabetes mellitus wit h diabetic neuropathy, with long-term current use of insulin 05/24/2024 Diabetic polyneuropathy asso ciated with type 2 diabetes mellitus 03/22/2024 Chronic bilateral low back pain without sciatica 12/29/2023 Ataxia 03/12/2023 Assessment & Plan (12/13/2023 10:36 [...] Problem Noted Date Diagnosed Date Resolved Date Acute hyperkalemia 03/28/2025 Aphthous ulcer 03/28/2025 03/28/2025 Foreign body in throat 03/28/202503/28 Painful mouth 03/28/2025 03/28/2025 Postoperative pain 03/28/2025 Acute left otitis media 02/24/2025 0711/2024 Finding of above normal blood pressure 02/24/2025 02/24/2025 Nausea vomiting and diarrhea 02/24/2025 02/24/2025 Right knee sprain 02/24/2025 02/24/2025 Lung nodule 03/14/2023 04/28/2023 Onychomycosis 01/21/2023 10/29/2023 Adrenal adenoma, left 12/30/20222022 Old myocardial infarction 12/10/2022 Nuclear senile cataract 01/03/202108/2023 Migraine 02/23/2014 03/14/2023 Cervical spondylosis without myelopathy 02/19/2013 10/29/2023 Varicose veins of other specified sites 08/22/2009 10/29/2023 Diabetes mellitus with neuro logical manifestations, controlled 09/28/2008 10/29/2023 Encounters Date Type Department Care Team Description 04/18/2025 3:15 PM EDT Office Visit [facility] [address] [place] [address] Adela Gross, SAILBOAT CAPTAIN Essential hypertension (Primary Dx); History of migraine headaches; Generalized anxiety disorder ; Irritable bowel syndrome with diarrhea; Dizziness 04/18/2025 Travel 04/14/2025 2:15 PM EDT Office Visit [facility] [address] [place] [address] Susie Mary DPM Onychomycosis (Primary Dx); Neuropathy; Type 2 diabetes mellitus with diabetic neuropathy, with long-term current use of insulin ([facility]) 04/14/2025 1:35 PM EDT Office Visit [facility] [address] [place] [address] Ludy Dela Cruz, FRUIT [employer]ISER[employer]POWDER ROOM ATTENDANT Bacterial folliculitis (Primary Dx); Other seborrheic dermatitis 04/14/2025 Orders Only [facility] [address] [place] [address] Bina Faye MD Age-related nuclear cataract of both eyes 04/14/2025 Travel 04/13/2025 2:15 PM EDT Office Visit [facility] [address] [place] [phone] Bina Faye MD Postoperative care for cataract (Primary Dx) 04/13/2025 Travel 04/07/2025 Telephone [facility] [address] [place] [address] Darrius Solares DO On-Call 04/06/2025 1:15 PM EDT Office Visit [facility] [address] [place] [address] Bina Faye MD Postoperative care for cataract (Primary Dx) 04/06/2025 [facility]phone [facility] [address] [place] [address] Darci Montgomery CO Tooth Absess 04/06/2025 Travel 03/31/2025 2:25 PM EDT Office Visit [facility] [place] [facility] [address] [place] [phone] Ludy Dela Cruz, FRUIT RAISER-POWDER ROOM ATTENDANT Other seborrheic dermatitis (Primary Dx); Bacterial folliculitis 03/31/2025 Travel 03/29/2025 Travel 03/28/2025 10:15 AM EDT Office Visit [facility] [address] [place] [address] Bhavesh Reveles DO Lesion of hard palate (Primary Dx); Pyogenic granuloma 03/28/2025 Telephone [facility] [address] [place] [address] Darrius Orr MD Earache 03/28/2025 Travel 03/28/2025 Telephone [facility] [address] [place] [address] RulaDarci gilbert, MA ER Concern 03/26/2025 External Result Encounter [facility] External Department Unsolicited Martha Delvalle NP 03/23/2025 Results Follow-Up [facility] [address] [place] [address] Darrius Orr MD Basic metabolic panel 03/22/2025 Orders Only [facility] [address] [place] [address] Unallocated, [facility] MD Santos 03/22/2025 Telephone [facility] [address] [place] [address] Darrius Orr MD Potassium Elevated 03/21/2025 1:00 PM EDT Procedure Visit [facility] Bhavesh Reveles DO Granuloma and granuloma-like lesions of oral mucosa (Primary Dx) 03/21/2025 External Result Encounter [facility] External Department Unsolicited Bhavesh Reveles DO 03/21/2025 External Result Encounter [facility] External Department Unsolicited Bhavesh Reveles, 03/17/2025 2:30 PM EDT Office Visit [facility] [address] [place] [address] Darrius Orr MD Intractable migraine without aura and with status migrainosus (Primary Dx); Cervical paraspinal muscle spasm; Cataract of both eyes, unspecified cataract type; Pyogenic granuloma 03/17/2025 Travel 03/16/2025 Telephone [facility] [place] [facility] [address] [place] [address] Darrius Orr MD Toradol Injection 03/15/2025 Orders Only [facility] [address] [place] [address] Darrius Orr MD Polyneuropathy associated with underlying disease (HCC) 03/14/2025 External Result Encounter [facility] External Department Unsolicited Bhavesh Reveles DO 03/13/2025 Telephone [facility] [address] [place] [address] Darrius Orr MD 03/12/2025 Telephone [facility] [address] [place] [address] Darrius Orr MD 03/12/2025 Travel 03/11/2025 2:45 PM EDT Office Visit [facility] [place] [facility] [address] [place] [address] Bhavesh Reveles DO Oral lesion (Primary Dx); Pyogenic granuloma 03/11/2025 Travel 03/08/2025 2:30 PM EDT Office Visit [facility] [address] [place] [address] [place] Gunn, EMMA Other migraine without status migrainosus, not intractable (Primary Dx) 03/08/2025 Bamboo flowsheet [facility] [place] [facility] [address] [place] [address] [place] Gunn NP 03/08/2025 Travel 03/07/2025 Telephone [facility] [address] [place] [address] Jos Lai RN dsme 03/07/2025 Orders Only [facility] [address] [place] [address] Bhavesh Reveles DO 03/07/2025 Telephone [facility] [address] [place] [address] Aniya Santos MA 03/04/2025 7:05 PM EDT Office Visit [facility] [place] [facility] [address] [place] [address] [place] Gunn NP Pharyngitis, unspecified etiology 03/04/2025 External Result Encounter [facility] External Department Unsolicited Bhavesh Reveles, 03/04/2025 Travel 03/04/2025 External Result Encounter [facility] External Department Unsolicited Bhavesh Reveles, DO 03/04/2025 Telephone [facility] [address] [place] [address] Darci Montgomery CO Sore Throat 02/28/2025 1:30 PM EDT Office Visit [facility] [place] [facility] [address] [place] [address] Darrius Orr MD Type 2 diabetes mellitus with diabetic neuropathy, with long-term current use of insulin ([facility]) (Primary Dx); Essential hypertension ; Psoriatic arthritis ([facility]); Mixed hyperlipidemia ; Polyneuropathy associated with underlying disease ([facility]); Hyperparathyroidism, unspecified ([facility]); Immunodeficiency due to conditions classified elsewhere ([facility]); Relapsing remitting multiple sclerosis ([facility]); Morbid obesity ([facility]); Chronic neck pain; Generalized anxiety disorder ; Vitamin B12 deficiency; Vitamin D deficiency; History of colonic polyps; Medicare annual wellness visit, subsequent; ACP (advance care planning); Encounter for screening prostate specific antigen (PSA) measurement 02/28/2025 10:00 AM EDT Office Visit [facility] [place] [facility] [address] [place] [address] Bhavesh Reveles, DO Oral lesion; Pre-procedural laboratory examinations; Lesion of hard palate 02/28/2025 External Result Encounter [facility] External Department Unsolicited Bhavesh Reveles, 02/28/2025 Orders Only [facility] [place] [facility] [address] [place] [address] Unallocated, Pat Graham MD 02/28/2025 Travel 02/25/2025 2:00 PM EDT Office Visit [facility] [address] [place] [address] Adela Gross NP Generalized anxiety disorder (Primary Dx); Acute right-sided thoracic back pain; Chronic bilateral low back pain without sciatica 02/25/2025 Travel 02/23/2025 Telephone [facility] Medicine [address] [place] [address] Darci Montgomery CO Back Pain 02/21/2025 Travel 02/18/2025 10:15 AM EDT Office Visit [facility] Internal Medicine [address] [place] [address] Adela Gross NP Primary osteoarthritis involving multiple joints (Primary Dx); Polyneuropathy associated with underlying disease (HCC); Chronic bilateral low back pain without sciatica; Essential hypertension ; Cervical paraspinal muscle spasm 02/18/2025 Refill [facility] Medicine [address] [place] [address] [address] LPN 02/18/2025 Travel 02/16/2025 Results Follow-Up [facility] Medicine [address] [place] [address] Adela Gross NP MR brain wo contrast 02/15/2025 10:15 AM EDT Ancillary Procedure [facility] [address] [place] [address] MS (multiple sclerosis) (HCC) 02/15/2025 Refill [facility] Medicine [address] [place] [address] Darrius Orr MD Bilateral low back pain without sciatica, unspecified chronicity 02/15/2025 Travel 02/12/2025 Telephone [facility] Internal Medicine [address] [place] [address] Darrius Orr MD 02/11/2025 [facility] [address] [facility] [place] [address] Bina Faye MD Cortical age-related cataract of both eyes (Primary Dx) 02/10/2025 [facility] [address] [place] [address] Bina Faye MD Age-related nuclear cataract of both eyes; Primary open angle glaucoma (POAG) of both eyes, moderate stage 02/09/2025 9:15 AM EDT Office Visit [facility] Medicine [address] [place] [address] Darrius Orr MD Bilateral low back pain without sciatica, unspecified chronicity (Primary Dx); Lesion of hard palate; Vitamin D deficiency; MS (multiple sclerosis) (HCC) 02/09/2025 Refill [facility] Internal Medicine [address] [place] [address] LPN Spinal stenosis in cervical region 02/09/2025 Travel 02/07/2025 2:15 PM EDT Office Visit [facility] [address] [place] [address] Bina Faye MD Cortical age-related cataract of both eyes (Primary Dx); Primary open angle glaucoma (POAG) of both eyes, moderate stage 02/07/2025 Travel 02/02/2025 Orders Only [facility] Internal Medicine [address] [place] [address] Darrius Orr MD Cervical paraspinal muscle spasm 02/01/2025 Refill [facility] Internal Medicine [address] [place] [address] Darrius Orr MD Type 2 diabetes mellitus with stage 2 chronic kidney disease, with long-term current use of insulin ([facility]) 02/01/2025 Refill [facility] [address] [place] [address] LPN Type 2 diabetes mellitus with stage 2 chronic kidney disease, with long-term current use of insulin ([facility]) 01/31/2025 Telephone [facility] [phone] Darrius Orr MD 01/31/2025 Refill [facility] [address] [place] [address] LPN Cervical paraspinal muscle spasm; Type 2 diabetes mellitus with stage 2 chronic kidney disease, with long-term current use of insulin ([facility]) 01/31/2025 Results Follow-Up [facility] Internal Medicine [address] [place] [address] Srikanth Horvath NP Comprehensive metabolic panel 01/28/2025 Telephone [facility] [address] [place] [address] LPN referral for cataract surgery 01/27/2025 3:00 PM EDT Office Visit [facility] Medicine [address] [place] [address] Srikanth Horvath NP Type 2 diabetes mellitus with diabetic neuropathy, with long-term current use of insulin ([facility]) (Primary Dx); Intractable migraine without aura and with status migrainosus ; Essential hypertension ; Mixed hyperlipidemia ; Cervical paraspinal muscle spasm; Spinal stenosis in cervical region; Cataract of both eyes, unspecified cataract type 01/27/2025 Travel 01/26/2025 Telephone [facility] [address] [place] [address] Prachi Orr MA reminder call 01/26/2025 Telephone [facility] [address] [place] [address] [place], [place] 01/25/2025 3:30 PM EDT Clinical Support [facility] [address] [place] [address] Adela Gross, SAILBOAT CAPTAIN History of migraine headaches 01/25/2025 Travel 01/25/2025 Telephone [facility] [address] [place] [address] [place], [place] Injection 01/24/2025 Telephone [facility] [address] [place] [address] Darrius Orr MD 01/21/2025 Telephone [facility] [address] [place] [address] Gabriella Caicedo, DO Referral 01/20/2025 11:15 AM EDT Office Visit [facility] [address] [place] [address] Darrius Orr MD Intractable migraine without aura and with status migrainosus 01/20/2025 Travel 01/19/2025 Orders Only [facility] [address] [place] [address] Darrius Orr MD 01/19/2025 Telephone [facility] [address] [place] [address] Darrius Orr MD Headache 01/19/2025 Refill [facility] [address] [place] [address] [place], [place] Primary osteoarthritis involving multiple joints; Polyneuropathy associated with underlying disease (HCC) from Last 3 Months Immunizations Immunization Administration [...] Past Smokeless Tobacco: Never Tobacco Cessation:Counseling Given: Not Answered Alcohol Use Standard Drinks/Week Comments Never 0 [...] F) 04/18/2025 3:31 PM EDT Respiratory Rate 20 10/18/2024 12:01 PM EDT Oxygen Saturation 99% 04/18/2025 3:31 PM EDT Inhaled Oxygen Concentration - - Weight 160 kg (353 lb) 03/28/2025 10:04 AM EDT Height 175.3 cm (5' 9 ) 04/18/2025 3:31 PM EDT Body Mass Index 52.13 03/28/2025 10:04 AM EDT Plan of Treatment Upcoming Encounters Date Type Department Care Team (Late st Contact Info) Description 05/05/2025 1:15 PM EDT Office Visit [facility] [address] [place] [address] Bina Faye MD [address] [place] [address] 06/06/2025 2:00 PM EST Office Visit [facility] [place] [facility] [address] [place] [address] 07/18/2025 3:15 PM EST Procedure Visit [facility] [address] [place] [address] Susie Mary DPM [address] [place] [address] Health Maintenance Due Date Last Done Comments CT Colonography 1971 FIT-DNA 1971 FIT 1971 FOBT 1971 Sigmoidoscopy 1971 Diabetes: Urine Protein Screening 04/10/2022 04/10/2021, 04/17/2020, 04/17/2020, Additional history exists Influenza Vaccine (#1) 2025 Diabetes: Hemoglobin A1C 05/31/2025 025, 11/29/2024, 08/31/2024, Additional history exists Medicare Annual Wellness (AWV) 02/28/2026 02/28/2025 Diabetes: Retinopathy Screening 02/07/2027 02/07/2025, 02/07/2025, 02/07/2025, Additional history exists Colonoscopy 01/27/2029 01/27/2019, 01/27/2019 Colorectal Cancer Screening 01/27/2029 Procedures Procedure Name Priority Date/Time Associated Diagnosis Comments GLUCOSE POCT GLUCOMETERS Routine 03/26/2025 6:14 PM EDT BASIC METABOLIC PANEL Routine 03/23/2025 12:26 PM EDT Serum potassium elevated GLUCOSE POCT GLUCOMETERS Routine 03/21/2025 2:26 PM EDT CBC WITH AUTO DIFFERENTIAL Routine 03/21/2025 11:33 AM EDT BASIC METABOLIC PANEL Routine 03/21/2025 11:33 AM EDT GLUCOSE POCT GLUCOMETERS Routine 03/21/2025 11:28 AM EDT BASIC METABOLIC PANEL Routine 03/14/2025 1:45 PM EDT RAPID COVID 19 ANTIGEN Routine 03/04/2025 7:41 PM EDT Pharyngitis, unspecified etiology RAPID STREP Routine 03/04/2025 7:41 PM EDT Pharyngitis, unspecified etiology CT MAXILLOFACIAL W AND WO IV CONTRAST 03/04/2025 7:24 PM EDT ISTAT XRAY CRE Routine 03/04/2025 12:34 PM EDT GENERAL PATHOLOGY Routine 02/28/2025 2:5 3 PM EDT POCT GLYCOSYLATED HEMOGLOBIN (HGB A1C) Routine 02/28/2025 2:05 PM EDT Type 2 diabetes mellitus with diabetic neuropathy, with long-term current use of insulin ([facility]) PATHOLOGY REQUEST FOR LAB BOB Routine 02/28/2025 10:15 AM EDT MR BRAIN WO CONTRAST Routine 02/15/2025 11:03 AM EDT MS (multiple sclerosis) (HCC) OCT, OPTIC NERVE - OU - BOTH EYES Routine 02/07/2025 3:01 PM EDT Primary open angle glaucoma (POAG) of both eyes, moderate stage IOL BIOMETRY - OU - BOTH EYES Routine 02/07/2025 2:56 PM EDT Cortical age-related cataract of both eyes COMPREHENSIVE METABOLIC PANEL Routine 01/27/2025 4:35 PM EDT Type 2 diabetes mellitus with diabetic neuropathy, with long-term current use of insulin (HCC) Essential hypertension DIABETIC RETINOPATHY SCREENING - OU - BOTH EYES Routine 04/29/2024 3:46 PM EDT MICROALBUMIN / CREATININE URINE RATIO Routine 04/10/2021 COLONOSCOPY Routine 01/27/2019 12:00 PM EDT from Last 3 Months or Most Recently Relevant to Health Maintenance Results * (ABNORMAL) GLUCOSE POCT GLUCOMETERS (03/26/2025 6:14 PM EDT) Only the most recent of3 resultswithin the time period is included. GLUCOSE POC GLUCOMETERS 472(HH) mg/dL 03/26/2025 6:22 PM EDT [facility] Comment: Random Glucose Reference Range is dependent on time and content of last meal. Glucose of more than 200 mg/dL in a nonstressed, ambulatory subject supports the diagnosis of Diabetes Mellitus. COMMEMT1 03/26/2025 6:22 PM EDT [facility] Comment:Glu2: WILL NOTIFY DR /RN COMMEMT2 Cleaned Meter 03/26/2025 6:22 PM EDT [facility] Blood (Blood) 03/26/2025 6:1 4 PM EDT 03/26/2025 6:21 PM EDT us Martha Delvalle SAILBOAT CAPTAIN LAB BLOOD ORDERABLES Final R esult [facility] [address] [place] [address], * (ABNORMAL) Basic metabolic panel (03/23/2025 12:26 PM EDT) Only the most recent of3 resultswithin the time period is included. Glucose 394(H) 70 - 100 mg/dL 03/23/2025 1:55 PM EDT [facility] Comment: Random Glucose Reference Range is dependent on time and content of last meal. Glucose of more than 200 mg/dL in a nonstressed, ambulatory subject supports the diagnosis of Diabetes Mellitus. ADA recommended reference range BUN 28(H) 7 - 25 mg/dL 03/23/2025 1:55 PM EDT [facility] CREATININE 1.04 0.70 - 1.30 mg/dL 03/23/2025 1:55 PM EDT [facility] ESTIMATED GFR >60.0 03/23/2025 1:55 PM EDT [facility] Sodium 134(L) 136 - 145 mmol/L 03/23/2025 1:55 PM EDT [facility] Potassium, Bld 4.5 3.5 - 5.1 mmol/L 03/23/2025 1:55 PM EDT [facility] Chloride 103 98 - 107 mmol/L 03/23/2025 1:55 PM EDT [facility] Carbon Dioxide 23.2 21.0 - 31.0 mmol/L 03/23/2025 1:55 PM EDT [facility] Anion Gap 12.3 6.0 - 15.0 03/23/2025 1:55 PM EDT [facility] Calcium 8.8 8.6 - 10.3 mg/dL 03/23/2025 1:55 PM EDT [facility] Other Topography unknown / Unknown 03/23/2025 12:26 PM EDT 03/23/2025 12:26 PM EDT Darrius Orr MD LAB BLOOD ORDERABLES Final Resu lt Performing Organization Address [facility]/State/ZIP Co de Phone Number [facility] [address] [place] [address], [facility] [address] [place] [address] * CBC auto differential (03/21/2025 11:33 AM EDT) Blood Venous blood specimen / Unknown Noms Provider Unallocated LAB BLOOD ORDERABLE S Final Result * RAPID STREP (03/04/2025 7:41 PM EDT) RESULT negative Negative Throat 03/04/2025 7:41 PM EDT Corina Gunn SAILBOAT CAPTAIN POINT OF CARE TEST ENTER/ED IT ORDERABLES Final Result * RAPID COVID 19 ANTIGEN (03/04/2025 7:41 PM EDT) COVID 19 RESULT OP negative Negative Nasal 03/04/2025 7:41 PM EDT Result [facility] Too Gagandeep Ellen DO POINT OF CARE TEST ENTER/ED IT ORDERABLES Final Result * CT maxillofacial w and wo IV contrast (03/04/2025 7:24 PM EDT) Anatomical Region Laterality Modality Head, Neck Computed Tomogra phy 03/04/2025 7:24 PM EDT Impressions 03/04/2025 7:40 PM EDT Nonspecific soft tissue swelling identified at site of clinical concern, this appears slightly increased in size. Correlate with exam findings. Impression dictated by: Sergei Peres M.D. 03/04/2025 7:38 PM Dictation Location: [place] [address] Transcribed By: [facility] 03/04/251937 Dictated By: Sergei Peres MD 03/04/251923 Signed By: <Electronically signed by Sergei Peres MD in [place]> 03/04/251937 Narrative 03/04/2025 7:40 PM EDT [facility] Main [place] [address] [place] [address] CT Scan Report Signed Patient: Alex Ellis MR#: [id number] 73 : 1970 Acct:[id number] Age/Sex: 54 / M ADM Date: 03/04/25 Loc: CT Room: Type: [facility] Attending Dr: Bhavesh Reveles DO Copies to: Bhavesh Reveles DO Ordering Provider: Bhavesh Reveles DO Date of Service: 03/04/25 CT/CT facial bones wo/w con: K13.70 CT facial bones wo/w con 03/04/2025 1:36 PM SIGNS AND SYMPTOMS: K13.70 TECHNIQUE: Multidetector CT axial slices of the face were obtained without and with IV contrast. Sagittal and coronal reformats were reconstructed. CT was performed with one or more of the following dose reduction techniques: Automated exposure control, adjustment of the mA and/or kV according to patient size, or use of iterative reconstruction technique. COMPARISON: CT angiogram 12/30/2024 FINDINGS: There is focal soft tissue thickening along the posterior to the maxillary medial and lateral incisor measuring 6 x 12 mm in size. On comparison measuring 4 x 8 mm in size. Otherwise, the nasopharynx, oropharynx, hypopharynx, glottic, and subglottic regions are unremarkable. The parotid glands are within normal limits. No facial fractures. No definite osseous erosion. CT/CT facial bones wo/w con Procedure Note Radiology, Radiologist, - 03/04/2025 [facility] Main [place] [address] [place] [address] CT Scan Report Signed Patient: Alex Ellis JMR#: [id number] 72 : 1970Acct:[id number] Age/Sex: 54 / MADM Date: 03/04/25 Loc: CT Room:Type: [facility] Attending Dr: Bhavesh Reveles DO Copies to: Bhavesh Reveles DO Ordering Provider: Bhavesh Reveles DO Date of Service: 03/04/25 CT/CT facial bones wo/w con: K13.70 CT facial bones wo/w con 03/04/2025 1:36 PM SIGNS AND SYMPTOMS: K13.70 TECHNIQUE: Multidetector CT axial slices of the face were obtained withoutand with IV contrast. Sagittal and coronal reformats were reconstructed. CT was performed withone or more of the following dose reduction techniques: Automated exposure control,adjustment of the mA and/or kV according to patient size, or use of iterative reconstruction technique. COMPARISON: CT angiogram 12/30/2024 FINDINGS: There is focal soft tissue thickening along the posterior to the maxillarymedial and lateral incisor measuring 6 x 12 mm in size. On comparison measuring 4 x 8 mm insize. Otherwise, the nasopharynx, oropharynx, hypopharynx, glottic, andsubglottic regions are unremarkable. The parotid glands are within normal limits. No facial fractures. No definite osseous erosion. CT/CT facial bones wo/w con IMPRESSION: Nonspecific soft tissue swelling identified at site of clinical concern,this appears slightly increased in size. Correlate with exam findings. Impression dictated by: Sergei Peres M.D. 03/04/2025 7:38 PM Dictation Location: [place] [address] Transcribed By: [facility] 03/04/251937 Dictated By: Sergei Peres MD 03/04/251923 Signed By: <Electronically signed by Sergei Peres MD in [place]> 03/04/251937 Bhavesh Reveles DO IMG CT PROCEDURES Final Res ult * ISTAT XRAY CRE (03/04/2025 12:34 PM EDT) ISTAT CREATININE LEVEL 1.0 0.6 - 1.3 mg/dL 03/04/2025 12:36 PM EDT [facility] Comment: ER/ESD physician is notified/shown all ISTAT results. Critical values may be confirmed by laboratory testing if deemed necessary by ER attending doctor. ISTAT GFR >60.0 03/04/2025 12:36 PM EDT [facility] Blood (Blood) 03/04/2025 12: 34 PM EDT 03/04/2025 12:36 PM EDT us Bhavesh Reveles DO LAB BLOOD ORDERABLES Final Result Performing Organization Address City/State/[facility] Co de Phone Number [facility] [address] [place] [address], [facility] [address] [place] [address] * GENERAL PATHOLOGY (02/28/2025 2:53 PM EDT) us Bhavesh Reveles DO [facility] Final Resul t * POCT glycosylated hemoglobin (Hb A1C) docked device (02/28/2025 2:05 PM EDT) Hemoglobin A1C 11.9 Blood Venous blood specimen / Unknown 02/28/2025 2:05 PM EDT Darrius Orr MD POINT OF CARE TEST ENTER/EDIT O RDERABLES Final Result * PATHOLOGY REQUEST FOR LAB BOB (02/28/2025 10:15 AM EDT) PATHOLOGY REQUEST FOR LAB BOB 03/07/2025 2:55 PM EDT [facility] Comment:See report. Scanned copy available in EMR. Other Topography unknown / Unknown 02/28/2025 10:15 AM EDT 03/01/2025 9:17 AM EDT Narrative [facility] - 03/07/2025 2:55 PM EDT PUNCH BIOPSY Bhavesh Reveles DO LAB BLOOD ORDERABLES Final Result Performing Organization Address City/State/[facility] Co de Phone Number [facility] [address] [place] [address], [facility] [address] [place] [id number] * MR brain wo contrast (02/15/2025 11:03 AM EDT) Anatomical Region Laterality Modality Brain Magnetic Resonan ce 02/16/2025 9:13 AM EDT Impressions 02/16/2025 11:07 AM EDT Mild increase in number of supratentorial white matter lesions most compatible with demyelinating lesions of multiple sclerosis. ELECTRONICALLY SIGNED BY: Darrius Mccall DO Narrative 02/16/2025 11:07 AM EDT EXAM: MR BRAIN WO CONTRAST History: Multiple sclerosis Technique: Multiplanar multisequence MRI of the brain was performed without contrast. Comparison: MRI of the brain December 20, 2020 Findings: Multiple bilateral supratentorial subcortical and periventricular white matter lesions are again identified. There has been interval development of a few tiny lesions of the bilateral frontal subcortical white matter. The previously present lesions do not appear significantly changed in size since prior examination. Many of the larger lesions demonstrate hypointense T1 signal. Lesion within the body of the corpus callosum has also not significantly changed. Brain volume is age-appropriate. Ventricular morphology is within normal limits. No acute hemorrhage, mass, mass effect, midline shift, or abnormal extra-axial fluid collection. The cerebellum appears within normal limits. There is no diffusion restriction. No susceptibility artifact is identified on the gradient echo sequence. The major intracranial vascular flow voids are maintained. Cranial nerve 7/8 complexes appear grossly unremarkable. The visualized paranasal sinuses and bilateral mastoid air cells are clear. Procedure Note Darrius Mccall DO - 02/16/2025 EXAM: MR BRAIN WO CONTRAST History: Multiple sclerosis Technique: Multiplanar multisequence MRI of the brain was performedwithout contrast. Comparison: MRI of the brain December 20, 2020 Findings: Multiple bilateral supratentorial subcortical and periventricular whitematter lesions are again identified. There has been interval developmentof a few tiny lesions of the bilateral frontal subcortical white matter.The previously present lesions do not appear significantly changed in sizesince prior examination. Many of the larger lesions demonstratehypointense T1 signal. Lesion within the body of the corpus callosum hasalso not significantly changed. Brain volume is age-appropriate. Ventricular morphology is within normallimits. No acute hemorrhage, mass, mass effect, midline shift, or abnormalextra-axial fluid collection. The cerebellum appears within normallimits. There is no diffusion restriction. No susceptibility artifact isidentified on the gradient echo sequence. The major intracranial vascular flow voids are maintained. Cranial nerve7/8 complexes appear grossly unremarkable. The visualized paranasalsinuses and bilateral mastoid air cells are clear. IMPRESSION: Mild increase in number of supratentorial white matter lesions mostcompatible with demyelinating lesions of multiple sclerosis. ELECTRONICALLY SIGNED BY: Darrius Mccall DO Srikanth Horvath SAILBOAT CAPTAIN IMG MRI PROCEDURES Final Res ult * OCT, Optic Nerve - OU - Both Eyes (02/07/2025 3:01 PM EDT) Anatomical Region Laterality Modality Head Optical Coherenc e Tomography Narrative 02/07/2025 3:01 PM EDT Right Eye To assess optic nerve function and for use in future follow-up. Reliability: good and adequate. Left Eye To assess optic nerve function and for use in future follow-up. Reliability: good and adequate. Notes Minimal thinning ou Bina Faye MD OPHTH TOMOGRAPHY Final Result * IOL Biometry - OU - Both Eyes (CPT 09831) (02/07/2025 2:56 PM EDT) A LENGTH (OS) 23.22 A LENGTH (OD) 23.48 Anatomical Region Laterality Modality Head Other Narrative 02/07/2025 2:56 PM EDT Right Eye Axial length was 23.48. Left Eye Axial length was 23.22. us Bina Faye MD OPHTH ULTRASOUND Final Result * (ABNORMAL) Comprehensive metabolic panel (01/27/2025 4:35 PM EDT) Glucose 174(H) 70 - 99 mg/dL [facility] BUN 37(H) 6 - 24 mg/dL [facility] Creat 1.23 0.76 - 1.27 mg/dL [facility] EGFR 70 >59 mL/min/1.7 3 [facility] BUN/Creat Ratio 30(H) 9 - 20 [facility] Sodium 136 134 - 144 mmol/L [facility] Potassium 4.7 3.5 - 5.2 mmol/L [facility] Chloride 104 96 - 106 mmol/L [facility] Carbon Dioxide 16(L) 20 - 29 mmol/L [facility] Calcium 9.5 8.7 - 10.2 mg/dL [facility] Protein Total 7.3 6.0 - 8.5 g/dL [facility] Albumin 4.3 3.8 - 4.9 g/dL [facility] Globulin Total 3.0 1.5 - 4.5 g/dL [facility] Bili Total 0.3 0.0 - 1.2 mg/dL [facility] Alk Phosphatase 240(H) 44 - 121 IU/L [facility] AST 17 0 - 40 IU/L [facility] ALT 25 0 - 44 IU/L [facility] Blood Venous blood specimen / Unknown 01/27/2025 4:35 PM EDT 01/27/2025 Narrative [facility] - 01/28/2025 6:06 AM EDT Performed at: [address] [id number] Hand Gluer And Slicer: Yury Hernandez PhD, Phone: [phone] Srikanth Horvath SAILBOAT CAPTAIN LAB BLOOD ORDERABLES Final R esult [facility] * Diabetic Retinopathy Screening - OU - Both Eyes (04/29/2024 3:46 PM EDT) Anatomical Region Laterality Modality Head Other Darrius Orr MD OPHTH PHOTOGRAPHY Final Result * Microalbumin / creatinine urine ratio (04/10/2021) UCREA 131 39 - 259 [facility] MALB 13.6 [facility] Comment:mALB reference range not established. MICROALB/CREAT RATIO 103.8 [facility] 04/10/2021 Darrius Orr MD LAB URINE ORDERABLES Final Resu lt Performing Organization Address City/[facility]/ZIP Co de Phone Number [facility] * Colonoscopy (01/27/2019 12:00 PM EDT) Anatomical Region Laterality Modality Endoscopy 01/27/2019 12:0 0 PM EDT Narrative 01/27/2019 12:00 PM EDT PERFORMED AT [facility] LOCATION:[id number] polypectomy- repeat 5 yrs Procedure Note CONVERSION, GENERIC - 12/18/2022 PERFORMED AT [facility] LOCATION:[id number] polypectomy- repeat 5 yrs Darrius Orr MD ENDOSCOPY PROCEDURE ORDERABLES Final Result from Last 3 Months or Most Recently Relevant to Health Maintenance Insurance [facility] MEDICARE ADVANTAGE MEDICAID [place] Care Teams Weaver Hand Relationship Specialty Start Date End Date Darrius Orr MD [address] [facility] [address] [place] [address] PCP - [employer] 08/04/19 Darrius Orr MD [address] [facility] [place] [address] PCP - General Internal Medicine 12/31/22 Aiden Linares DPM [address] [facility] [address] [place] [address] Referring Physician Podiatry 10/30/23 Kai Gutierres DO [address] [facility] [address] [place] [address] Referring Physician Neurology 02/24/24
--- OUTSIDE RECORDS SUMMARY | 2025-04-18 22:55 | XMS_ITS | Encounter Summary ---
Author Organization [facility] Address [address] [place] [address] Care Team Providers Care Radio Despatcher Name Role Phone Adebayo Reddy MD Primary Care Provider [phone] Ed Alfredo DO Primary Care Provider [phone] Darrius Orr MD Primary Care Provider [phone] Darrius Orr MD Unavailable [phone] Source Comments In the event this information is protected by the Federal Confidentiality of Alcohol and Drug AbusePatient Records regulations: The Federal rules restrict any use of the information to criminally investigate or prosecute any alcohol or drug abuse patient.[facility] Encounter Details Date Type Department Care Team (Late st Contact Info) Description 02/14/2014 Patient Msg Medical Records [address] [place] [address] Provider, Ccf RE: Appointment Cancellation Request Social [...] Office Visit [facility] [address] [facility] [place] [address] Caitlin Estrada MD [address] [place] [address] New patient caroline 05/16/2025 10:00 AM EDT Office Visit Rheumatology [address] [facility] [place] [address] Priscilla Mckee MD [address] [facility] [place] [address] Psoriatic Arthritis 07/04/2025 11:30 AM EST Office Visit Neurology [address] [place] [address] Fide Boucher DO [address] [place] [address] 3 month f/u documented as of this encounter Visit Diagnoses Not on filedocumented in this encounter Care Teams Radio Despatcher Relationship Specialty Start Date End Date Adebayo eRddy MD [address] [place] [address] PCP - General Family Medicine 12/29/12 08/15/14 Ed Alfredo DO [address] [place] [address] PCP - General Family Medicine 08/16/14 08/31/19 Darrius Orr MD [address] [place] [address] PCP - General Internal Medicine 09/01/19 Darrius Orr MD [address] [place] [address] Referring Internal Medicine 11/16/24 documented as of this encounter
--- OUTSIDE RECORDS SUMMARY | 2025-04-18 22:55 | XMS_ITS | Encounter Summary ---
Author Organization [facility] Address [address] [place] [address] Care Team Providers Care Programmer Name Role Phone Adebayo Reddy MD Primary Care Provider [phone] Ed Alfredo DO Primary Care Provider [phone] Darrius Orr MD Primary Care Provider [phone] Darrius Orr MD Unavailable [phone] Source Comments In the event this information is protected by the Federal Confidentiality of Alcohol and Drug AbusePatient Records regulations: The Federal rules restrict any use of the information to criminally investigate or prosecute any alcohol or drug abuse patient.[facility] Encounter Details Date Type Department Care Team (Late st Contact Info) Description 03/18/2014 Patient Msg Medical Records [address] [place] [address] Provider, Ccf RE: Request an Appointment Social [...] Description 05/06/2025 1:00 PM EDT Office Visit [facility] [address] [place] [address] Caitlin Estrada MD [address] [place] [address] New patient eval 05/16/2025 10:00 AM EDT Office Visit Rheumatology [address] [place] [address] Priscilla Mckee MD [address] [place] [address] Psoriatic Arthritis 07/04/2025 11:30 AM EST Office Visit Neurology [address] [place] [address] Fide Boucher DO [address] [facility] [address] 3 month f/u documented as of this encounter Visit Diagnoses Not on filedocumented in this encounter Care Teams Programmer Relationship Specialty Start Date End Date Adebayo Reddy MD [address] [facility] [place] [address] PCP - General Family Medicine 12/29/12 08/15/14 Ed Alfredo DO [address] [facility] [place] [address] PCP - General Family Medicine 08/16/14 08/31/19 Darrius Orr MD [address] [place] [address] PCP - General Internal Medicine 09/01/19 Darrius Orr MD [address] [place] [address] Referring Internal Medicine 11/16/24 documented as of this encounter
--- OUTSIDE RECORDS SUMMARY | 2025-04-18 22:55 | XMS_ITS | Encounter Summary ---
Author Organization [facility] Address [address] [facility] [place] [address] Care Team Providers Care Parking Lot Supervisor Name Role Phone Darrius Orr MD Unavailable [phone] Darrius Orr MD Primary Care Provider [phone] Aiden Linares DPM Unavailable [phone] Kai Gutierres DO Unavailable [phone] Encounter Details Date Type Department Care Team (Late Contact Info) Description 02/28/2025 Orders Only [facility] [address] [place] [address] Unallocated, Noms Provider, [address] [place] [address] Social History Tobacco Use Types Packs/Day Years [...] pleasure in doing things Not at all 02/28/2025 1:00 PM EDT Temi Winkler M A Feeling down, depressed, or hopeless Not at all 02/28/2025 1:00 PM EDT Temi Winkler M A Patient Health Questionnaire -2 Score 0 02/28/2025 1:00 PM EDT Temi Winkler M A documented as of this encounter Plan of Treatment Upcoming Encounters Date Type Department Care Team (Late st Contact Info) Description 05/05/2025 1:15 PM EDT Office Visit [facility] [address] [place] [address] Bina Faye MD [address] [place] [address] 06/06/2025 2:00 PM EST Office Visit [facility] [place] [facility] [address] [place] [address] 07/18/2025 3:15 PM EST Procedure Visit [facility] [place] [facility] [address] [place] [address] Susie Mary DPM [address] [place] [address] documented as of this encounter Procedures Procedure Name Priority Date/Time Associated Diagnosis Comments COLONOSCOPY Routine 01/27/2019 2:36 PM EDT documented in this encounter Results * Colonoscopy (01/27/2019 2:36 PM EDT) Anatomical Region Laterality Modality Endoscopy us Noms Provider Unallocated MD ENDOSCOPY PROCEDURE ORDERABLES Final Result documented in this encounter Visit Diagnoses Not on filedocumented in this encounter Care Teams Parking Lot Supervisor Relationship Specialty Start Date End Date Darrius Orr MD [address] [facility] [address] [place] [address] PCP - [employer] 08/04/19 Darrius Orr MD [address] [place] [address] PCP - General Internal Medicine 12/31/22 Aiden Linares DPM [address] [facility] [address] [place] [address] Referring Physician Podiatry 10/30/23 Kai Gutierres DO [address] [facility] [address] [place] [address] Referring Physician Neurology 02/24/24 documented as of this encounter
--- OUTSIDE RECORDS SUMMARY | 2025-04-18 22:55 | XMS_ITS | Encounter Summary ---
Author Organization [facility] Address [address] [place] [address] Care Team Providers Care Electronic Security Specialist Name Role Phone Darirus Orr MD Unavailable [phone] Darrius Orr MD Primary Care Provider [phone] Aiden Linares DPM Unavailable [phone] Kai Gutierres DO Unavailable [phone] Encounter Details Date Type Department Care Team ([facility] Contact Info) Description 03/12/2025 Telephone [facility] [address] [facility] [address] [place] [address] Darrius Orr MD [address] [facility] [address] [place] [address] Social History Tobacco Use Types Packs/Day Years [...] * Telephone Encounter - Bina Small - 03/14/2025 7:41 PM EDT Pt called and he was seen at [facility] today for h/a and he was given 60mg of toradol and benadryl. Pt was seen at 430 pm and his h/a is coming back. Pt would like a cb in am and possibly schedule appt. * Telephone Encounter - LIZBETH ORDAZ - 03/13/2025 8:07 AM EDT Left vm * Telephone Encounter - LIZBETH ORDAZ - 03/13/2025 8:06 AM EDT Tired to call patient again and got the voice message again * Telephone Encounter - LIZBETH ORDAZ - 03/12/2025 10:16 PM EDT I have reviewed the ER notes as well as office notes. He's had a long-standing history of migraine headaches so this is not new. when he was seen in the ER, because there was nothing new about his symptoms, they just treated him with the Toradol and Benadryl because there was no need for any other type of work up. He can take up to 800 mg of the ibuprofen after eight hours from previous dose. Also looks like he does have Percocet that he is prescribed so he could try one of those as there's really nothing elseto do at this point. This is a long- standing issue and he has an appointment with a specialist coming up. 7 mins right that is what I though. 6 mins as well. thanks just was checking to see because he stated that he will go back to the ER. I told him that if they told him there is not much they can do then he has to wait until he sees the specialist or wait until Friday to see Dr Orr 5 mins MARCO ANTONIO Yusuf, unfortunately, I think he spends more time in the ER than some of the people who work there. Hopefully the specialist will be able to come up with a treatment plan that better manages his symptom * Telephone Encounter - LIZBETH ORDAZ - 03/12/2025 8:43 PM EDT Patient is calling due to he went to the ER today for migraines around 5pm and they gave him a Toradol. Then he came home and relax and watch tv. Then just now he got a headache again. He stated thathe took his night time medication and then his Soma medication with that. He is wondering if this is not helping what should he do. I advised him since he just took the medication to wait and see if it helps. He stated that the hospital did not do any testing just gave him medication for this. Patient also stated that he has a headache specialist but not until 03/23/25. He stated that he has triedthe ibuprofen and the other OTC and its not helping him at all. He stated that he is very concern that something is going on due to this is his fourth one this week. documented in this encounter Plan of Treatment Upcoming Encounters Date Type Department Care Team (Late st Contact Info) Description 05/05/2025 1:15 PM EDT Office Visit [facility] [address] [place] [phone] Bina Faye MD [address] [place] [address] 06/06/2025 2:00 PM EST Office Visit [facility] [place] [facility] [address] [place] [address] 07/18/2025 3:15 PM EST Procedure Visit [facility] [place] [facility] [address] [place] [address] Susie Mary DPM [address] [place] [address] documented as of this encounter Visit Diagnoses Not on filedocumented in this encounter Care Teams Electronic Security Specialist Relationship Specialty Start Date End Date Darrius Orr MD [address] [facility] [address] [place] [address] PCP - [employer] 08/04/19 Darrius Orr MD [address] [place] [address] PCP - General Internal Medicine 12/31/22 Aiden Linares DPM [address] [facility] [address] [place] [address] Referring Physician Podiatry 10/30/23 Kai Gutierres DO [address] [facility] [address] [place] [address] Referring Physician Neurology 02/24/24 documented as of this encounter
--- OUTSIDE RECORDS SUMMARY | 2025-04-18 22:55 | XMS_ITS | Encounter Summary ---
Author Organization [facility] Address [facility] [place] [address] Care Team Providers Care Public Information Coordinator Name Role Phone Adebayo Reddy MD Primary Care Provider [phone] Ed Alfredo DO Primary Care Provider [phone] Darrius Orr MD Primary Care Provider [phone] Darrius Orr MD Unavailable [phone] Source Comments In the event this information is protected by the Federal Confidentiality of Alcohol and Drug AbusePatient Records regulations: The Federal rules restrict any use of the information to criminally investigate or prosecute any alcohol or drug abuse patient.[facility] Encounter Details Date Type Department Care Team (Late st Contact Info) Description 11/12/2013 Patient Msg Medical Records [address] [place] [address] Provider, Ccf Appointment Cancellation Request Social History [...] PM EDT Office Visit [facility] [address] [place] [address] Caitlin Estrada MD [address] [place] [address] New patient eval 05/16/2025 10:00 AM EDT Office Visit Rheumatology 5700 [place] [address] Priscilla Mckee MD [address] [place] [address] Psoriatic Arthritis 07/04/2025 11:30 AM EST Office Visit Neurology [address] [place] [address] Fide Boucher DO [address] [place] [address] 3 month f/u documented as of this encounter Visit Diagnoses Not on filedocumented in this encounter Care Teams Public Information Coordinator Relationship Specialty Start Date End Date Adebayo Reddy MD [address] [place] [place] [address] PCP - General Family Medicine 12/29/12 08/15/14 Ed Alfredo DO [address] [place] [address] PCP - General Family Medicine 08/16/14 08/31/19 Darrius Orr MD [address] [address] PCP - General Internal Medicine 09/01/19 Darrius Orr MD [address] [place] [phone] Referring Internal Medicine 11/16/24 documented as of this encounter
--- OUTSIDE RECORDS SUMMARY | 2025-04-18 22:55 | XMS_ITS | Encounter Summary ---
Author Organization [facility] Address [facility] [place] [address] Care Team Providers Care Washtub Worker Helper Name Role Phone Camila Rodriguez MD Primary Care Provider [phone] Lizeth Tillman MD Primary Care Provider [phone] Clinton Gonzales MD Primary Care Provider [phone] Rich Chun MD Primary Care Provider [phone] Adebayo Reddy MD Primary Care Provider [phone] Ed Alfredo DO Primary Care Provider [phone] Darrius Orr MD Primary Care Provider [phone] Darrius Orr MD Unavailable [phone] Source Comments In the event this information is protected by the Federal Confidentiality of Alcohol and Drug AbusePatient Records regulations: The Federal rules restrict any use of the information to criminally investigate or prosecute any alcohol or drug abuse patient.[facility] Encounter Details Date Type Department Care Team (Late st Contact Info) Description 12/08/2007 Patient Msg Medical Records [address] [place] [address] Provider, Ccf Appointment Request form Social History [...] Visit [facility] [address] [facility] [place] [address] Caitlin Estrada MD [address] [place], [place] [id number] New patient caroline 05/16/2025 10:00 AM EDT Office Visit Rheumatology [address] [facility] [place] [address] Priscilla Mckee MD [address] [facility] [place] [address] Psoriatic Arthritis 07/04/2025 11:30 AM EST Office Visit Neurology [address] [place] [address] Fide Boucher DO [address] [place] [address] 3 month f/u documented as of this encounter Visit Diagnoses Not on filedocumented in this encounter Care Teams Washtub Worker Helper Relationship Specialty [place] [address] [place] [address] [place] [address] PCP - General 10/13/09 12/28/12 [place] [address] [place] [address] [place] [address] PCP - General 08/16/09 10/12/09 Clinton Gonzales MD [address] [facility] [place] [address] PCP - General 09/02/08 08/15/09 Rich Chun MD [address] [facility] [place] [address] PCP - General 11/27/06 09/01/08 Adebayo Reddy MD [address] [facility] [address] [place] [address] PCP - General Family Medicine 12/29/12 08/15/14 Ed Alfredo DO [address] [facility] [address] [place] [address] PCP - General Family Medicine 08/16/14 08/31/19 Darrius Orr MD [address] [facility] [address] [place] [address] PCP - General Internal Medicine 09/01/19 Darrius Orr MD [address] [place] [address] Referring Internal Medicine 11/16/24 documented as of this encounter
--- OUTSIDE RECORDS SUMMARY | 2025-04-18 22:55 | XMS_ITS | Encounter Summary ---
Author Organization [facility] Address [address] [facility] [place] [address] Care Team Providers Care Utility Worker Driver Name Role Phone Darrius Orr MD Unavailable [phone] Darrius Orr MD Primary Care Provider [phone] Aiden Linares DPM Unavailable [phone] Kai Gutierres DO Unavailable [phone] Reason for Visit * Reason Onset Date Comments lab results and orders 12/01/2024 Encounter Details Date Type Department Care Team (Late st Contact Info) Description 12/01/2024 Results Follow-Up [facility] Internal Medicine [address] [facility] 230 [place] [address] Darrius Orr MD [address] [facility] 230 [place] [address] PSA, PTH, intact, Phosphorus, Additional followed-up results: 10 Social History Tobacco Use Types Packs/Day Years [...] refill on rosuvastatin [facility] @ lab orders sent to [facility] for 1 week * Telephone Encounter - [...] ----- Message ----- From: Interface, Incoming Lab [facility] Background Sent: 11/29/2024 3:04 PM EDT To: [...] 05/05/2025 1:15 PM EDT [facility] [address] [place] [address] Bina Faye MD [address] [place] [address] 06/06/2025 2:00 PM EST Office Visit [facility] [address] [place] [address] 07/18/2025 3:15 PM EST Procedure Visit [facility] [address] [place] [address] Susie Mary DPM [address] [place] [address] Scheduled Orders Name Type Priority Associated Diagnoses Orde r Schedule Basic metabolic panel Lab Routine Hyponatremia Expected: 12/09/2024 (Approximate), Expires: 06/04/2025 Cortisol Lab Routine Hyperkalemia Expected: 12/09/2024 (Approximate), Expires: 06/04/2025 documented as of this encounter Visit Diagnoses Diagnosis Vitamin D deficiency Hyponatremia Hyposmolality and/or hyponatremia Hyperkalemia Hyperpotassemia Mixed hyperlipidemia Mixed hyperlipidemia documented in this encounter Care Teams Utility Worker Driver Relationship Specialty Start Date End Date Darrius Orr MD [address] [place] [address] PCP - [employer] 08/04/19 Darrius Orr MD [address] [place] [address] PCP - General Internal Medicine 12/31/22 Aiden Linares DPM [address] [place] [address] Referring Physician Podiatry 10/30/23 Kai Gutierres DO [address] [address] Referring Physician Neurology 02/24/24 documented as of this encounter
--- OUTSIDE RECORDS SUMMARY | 2025-04-18 22:55 | XMS_ITS | Encounter Summary ---
Author Organization [facility] Address [address] [place] [address] Care Team Providers Care Brigadier Name Role Phone Adebayo Reddy MD Primary Care Provider [phone] Ed Alfredo DO Primary Care Provider [phone] Darrius Orr MD Primary Care Provider [phone] Darrius Orr MD Unavailable Source Comments In the event this information is protected by the Federal Confidentiality of Alcohol and Drug AbusePatient Records regulations: The Federal rules restrict any use of the information to criminally investigate or prosecute any alcohol or drug abuse patient.[facility] Encounter Details Date Type Department Care Team (Late st Contact Info) Description 08/14/2013 Patient Msg Medical Records [address] [place] [address] Provider, Ccf RE: Request an Appointment Social [...] Visit [facility] [address] [place] [address] Caitlin Estrada MD [address] [place] [address] New patient eval 05/16/2025 10:00 AM EDT Office Visit Rheumatology 57[address] [place] [address] Priscilla Mckee MD [address] [place] [address] Psoriatic Arthritis 07/04/2025 11:30 AM EST Office Visit Neurology [address] [place] [address] Fide Boucher DO [address] [place] [address] 3 month f/u documented as of this encounter Visit Diagnoses Not on filedocumented in this encounter Care Teams Brigadier Relationship Specialty Start Date End Date Adebayo Reddy MD [address] [place] [address] PCP - General Family Medicine 12/29/12 08/15/14 Ed Alfredo DO [address] [place] [address] PCP - General Family Medicine 08/16/14 08/31/19 Darrius Orr MD [address] [address] PCP - General Internal Medicine 09/01/19 Darrius Orr MD [address] [facility] [address] [place] [address] Referring Internal Medicine 11/16/24 documented as of this encounter
--- OUTSIDE RECORDS SUMMARY | 2025-04-18 22:55 | XMS_ITS | Encounter Summary ---
Author Organization [facility] Address [facility] [place] [address] Care Team Providers Care Mold Release Worker Name Role Phone Adebayo Reddy MD Primary Care Provider [phone] Ed Alfredo DO Primary Care Provider [phone] Darrius Orr MD Primary Care Provider [phone] Darrius Orr MD Unavailable Source Comments In the event this information is protected by the Federal Confidentiality of Alcohol and Drug AbusePatient Records regulations: The Federal rules restrict any use of the information to criminally investigate or prosecute any alcohol or drug abuse patient.[facility] Encounter Details Date Type Department Care Team (Late st Contact Info) Description 02/22/2014 Patient Msg Medical Records [address] [place] [address] Provider, Ccf RE: Patient Registration Completed Social [...] Entry Date Author Yes 02/21/2014 2:11 PM MARCELOT Patty Almonte MA documented in this encounter Plan of Treatment Upcoming Encounters Date Type Department Care Team (Late st Contact Info) Description 05/06/2025 1:00 PM EDT Office Visit [facility] [address] [facility] [place] [address] Caitlin Estrada MD [address] [place], [place] [address] New patient eval 05/16/2025 10:00 AM EDT Office Visit Rheumatology [address] [facility] [place] [address] Priscilla Mckee MD [address] [place] [address] Psoriatic Arthritis 07/04/2025 11:30 AM EST Office Visit Neurology [address] [place] [address] Boucher Fide, [address] [place] [address] 3 month f/u documented as of this encounter Visit Diagnoses Not on filedocumented in this encounter Care Teams Mold Release Worker Relationship Specialty Start Date End Date Adebayo Reddy MD [address] [place] [address] PCP - General Family Medicine 12/29/12 08/15/14 Ed Alfredo DO [address] [place] [address] PCP - General Family Medicine 08/16/14 08/31/19 Darrius Orr MD [address] [place] [address] PCP - General Internal Medicine 09/01/19 Darrius Orr MD [address] [place] [address] Referring Internal Medicine 11/16/24 documented as of this encounter
--- OUTSIDE RECORDS SUMMARY | 2025-04-18 22:55 | XMS_ITS | Encounter Summary ---
Author Organization [facility] Address [address] [place] [address] Care Team Providers Care Us Administrative Law Judge Name Role Phone Darrius Orr MD Unavailable [phone] Darrius Orr MD Primary Care Provider [phone] Aiden Linares DPM Unavailable [phone] Kai Gutierres DO Unavailable [phone] Encounter Details Date Type Department Care Team ([facility] Contact Info) Description 03/04/2025 External Result Encounter [facility] External Department Unsolicited Bhavesh Reveles, DO [address] [place] [address] Social History Tobacco Use Types Packs/Day Years [...] 05/05/2025 1:15 PM EDT Office Visit [facility] [address] [place] [address] Bina Faye MD [address] [place] [address] 06/06/2025 2:00 PM EST Office Visit [facility] [place] [facility] [address] [place] [address] 07/18/2025 3:15 PM EST Procedure Visit [facility] [place] [facility] [address] [place] [address] Susie Mary DPM [address] [place] [address] documented as of this encounter Procedures Procedure Name Priority Date/Time Associated Diagnosis Comments CT MAXILLOFACIAL W AND WO IV CONTRAST 03/04/2025 7:24 PM EDT documented in this encounter Results * CT maxillofacial w and wo IV contrast (03/04/2025 7:24 PM EDT) Anatomical Region Laterality Modality Head, Neck Computed Tomogra phy 03/04/2025 7:24 PM EDT Impressions 03/04/2025 7:40 PM EDT Nonspecific soft tissue swelling identified at site of clinical concern, this appears slightly increased in size. Correlate with exam findings. Impression dictated by: Sergei Peres M.D. 03/04/2025 7:38 PM Dictation Location: [place] [address] Transcribed By: [facility] 03/04/251937 Dictated By: Sergei Peres MD 03/04/251923 Signed By: <Electronically signed by Sergei Peres MD in OV> 03/04/25 1938 Narrative 03/04/2025 7:40 PM EDT [facility] Main [place] [id number] Scan Report Signed Patient: Alex Dyer MR#: [id number] 73 : 1970 Acct:[id number] Age/Sex: 54 / M ADM Date: 03/04/25 Loc: CT Room: Type: REG CLI Attending Dr: Bhavesh Reveles DO Copies to: [...] bones wo/w con Procedure Note Radiology, Radiologist, MD - 03/04/2025 [facility] Main [place] [id number] CT Scan Report Signed Patient: Alex Dyer JMR#: [id number] 73 : 1970Acct:[id number] Age/Sex: 54 / MADM Date: 03/04/25 Loc: CT Room:Type: REG CLI Attending Dr: Bhavesh Reveles DO Copies to: [...] Peres M.D. 03/04/2025 7:38 PM Dictation Location: [place] [address] Transcribed By: [facility] 03/04/251937 Dictated By: Sergei Peres MD 03/04/251923 Signed By: <Electronically signed by Sergei Peres MD in OV> 03/04/251937 Bhavesh Reveles DO IMG CT PROCEDURES Final Res ult documented in this encounter Visit Diagnoses Not on filedocumented in this encounter Care Teams Us Administrative Law Judge Relationship Specialty Start Date End Date Darrius Orr MD [address] [place] [address] PCP - [employer] 08/04/19 Darrius Orr MD [address] [place] [address] PCP - General Internal Medicine 12/31/22 Aiden Linares DPM [address] [facility] [address] [place] [address] Referring Physician Podiatry 10/30/23 Kai Gutierres DO [address] [place] [phone] Referring Physician Neurology 02/24/24 documented as of this encounter
--- OUTSIDE RECORDS SUMMARY | 2025-04-18 22:55 | XMS_ITS | Encounter Summary ---
Author Organization [facility] Address [facility] [place] [address] Care Team Providers Care Waiter/Waitress Take Out Name Role Phone Adebayo Reddy MD Primary Care Provider [phone] Ed Alfredo DO Primary Care Provider [phone] Darrius Orr MD Primary Care Provider [phone] Darrius Orr MD Unavailable [phone] Source Comments In the event this information is protected by the Federal Confidentiality of Alcohol and Drug AbusePatient Records regulations: The Federal rules restrict any use of the information to criminally investigate or prosecute any alcohol or drug abuse patient.[facility] Encounter Details Date Type Department Care Team (Late st Contact Info) Description 01/11/2014 Patient Msg Medical Records [address] [place] [address] Provider, Ccf Vitamin D Level Social History [...] Description 05/06/2025 1:00 PM EDT Office Visit [facility] [address] [place] [address] Caitlin Estrada MD [address] [place] [address] New patient eval 05/16/2025 10:00 AM EDT Office Visit Rheumatology [address] [place] [address] Priscilla Mckee MD [address] [facility] [place] [address] Psoriatic Arthritis 07/04/2025 11:30 AM EST Office Visit Neurology [address] [place] [address] Fide Boucher DO [address] [place] [address] 3 month f/u documented as of this encounter Visit Diagnoses Not on filedocumented in this encounter Care Teams Waiter/Waitress Take Out Relationship Specialty Start Date End Date Adebayo Reddy MD [address] [facility] [place] [address] PCP - General Family Medicine 12/29/12 08/15/14 Ed Alfredo DO [address] [place] [address] PCP - General Family Medicine 08/16/14 08/31/19 Darrius Orr MD [address] [place] [address] PCP - General Internal Medicine 09/01/19 Darrius Orr MD [address] [place] [address] Referring Internal Medicine 11/16/24 documented as of this encounter
--- OUTSIDE RECORDS SUMMARY | 2025-04-18 22:55 | XMS_ITS | Encounter Summary ---
Author Organization [facility] Address [address] [place] [address] Care Team Providers Care Ambulette Driver Name Role Phone Adebayo Reddy MD Primary Care Provider [phone] Ed Alfredo DO Primary Care Provider [phone] Darrius Orr MD Primary Care Provider [phone] Darrius Orr MD Unavailable [phone] Source Comments In the event this information is protected by the Federal Confidentiality of Alcohol and Drug AbusePatient Records regulations: The Federal rules restrict any use of the information to criminally investigate or prosecute any alcohol or drug abuse patient.[facility] Encounter Details Date Type Department Care Team (Late st Contact Info) Description 02/28/2014 Patient Msg Medical Records [address] [place] [address] Provider, Ccf RE: Appointment Cancellation Request Social [...] Description 05/06/2025 1:00 PM EDT Office Visit [facility] [address] [place] [address] Caitlin Estrada MD [address] [place] [address] New patient eval 05/16/2025 10:00 AM EDT Office Visit Rheumatology [address] [place] [address] Priscilla Mckee MD [address] [place] [address] Psoriatic Arthritis 07/04/2025 11:30 AM EST Office Visit Neurology [address] [place] [address] Fide Boucher DO [address] [facility] [place] [address] 3 month f/u documented as of this encounter Visit Diagnoses Not on filedocumented in this encounter Care Teams Ambulette Driver Relationship Specialty Start Date End Date Adebayo Reddy MD [address] [place] [facility] [place] [address] PCP - General Family Medicine 12/29/12 08/15/14 Ed Alfredo DO [address] [place] [address] PCP - General Family Medicine 08/16/14 08/31/19 Darrius Orr MD [address] [place] [address] PCP - General Internal Medicine 09/01/19 Darrius Orr MD [address] [place] [address] Referring Internal Medicine 11/16/24 documented as of this encounter
--- OUTSIDE RECORDS SUMMARY | 2025-04-18 22:55 | XMS_ITS | Encounter Summary ---
Author Organization [facility] Address [facility] [place] [address] Care Team Providers Care Hull Drafter Name Role Phone Camila Rodriguez MD Primary Care Provider + [phone] Lizeth Tillman MD Primary Care Provider [phone] Clinton Gonzales MD Primary Care Provider + [phone] Rich Chun MD Primary Care Provider + [phone] Adebayo Reddy MD Primary Care Provider [phone] Ed Alfredo DO Primary Care Provider [phone] Darrius Orr MD Primary Care Provider [phone] Darrius Orr MD Unavailable [phone] Source Comments In the event this information is protected by the Federal Confidentiality of Alcohol and Drug AbusePatient Records regulations: The Federal rules restrict any use of the information to criminally investigate or prosecute any alcohol or drug abuse patient.[facility] Encounter Details Date Type Department Care Team (Late st Contact Info) Description 03/24/2008 Patient Msg Medical Records [address] [place] [address] Provider, Ccf RE: Appointment Cancellation Request Social [...] PM EDT Office Visit [facility] [address] [facility] [place] [address] Caitlin Estrada MD [address] [place], [place] [address] New patient eveduin 05/16/2025 10:00 AM EDT Office Visit Rheumatology [address] [facility] [place] [address] Priscilla Mckee MD [address] [facility] [place] [address] Psoriatic Arthritis 07/04/2025 11:30 AM EST Office Visit Neurology [address] [place] [address] Fide Boucher DO [address] [place] [address] 3 month f/u documented as of this encounter Visit Diagnoses Not on filedocumented in this encounter Care Teams Hull Drafter Relationship Specialty Start Date End Date Camila Rodriguez MD [address] [place] [address] [place] [address] PCP - General 10/13/09 12/28/12 Lizeth Tillman MD [address] [place] [address] [place] [address] PCP - General 08/16/09 10/12/09 Clinton Gonzales MD [address] [facility] [place] [address] PCP - General 09/02/08 08/15/09 Rich Chun MD [address] [facility] [place] [address] PCP - General 11/27/06 09/01/08 Adebayo Reddy MD [address] [facility]6 [place] [address] PCP - General Family Medicine 12/29/12 08/15/14 Ed Alfredo DO [address] [facility] [address] [facility]6 [place] [address] PCP - General Family Medicine 08/16/14 08/31/19 Darrius Orr MD [address] [place] [address] PCP - General Internal Medicine 09/01/19 Darrius Orr MD [address] [place] [address] Referring Internal Medicine 11/16/24 documented as of this encounter
--- OUTSIDE RECORDS SUMMARY | 2025-04-18 22:55 | XMS_ITS | Encounter Summary ---
Author Organization [facility] Address [address] [place] [address] Care Team Providers Care Car Worker Helper Name Role Phone Camila Rodriguez MD Primary Care Provider + [phone] Lizeth Tillman MD Primary Care Provider [phone] Clinton Gonzales MD Primary Care Provider + [phone] Adebayo Reddy MD Primary Care Provider [phone] Ed Alfredo DO Primary Care Provider [phone] Darrius Orr MD Primary Care Provider [phone] Darrius Orr MD Unavailable [phone] Source Comments In the event this information is protected by the Federal Confidentiality of Alcohol and Drug AbusePatient Records regulations: The Federal rules restrict any use of the information to criminally investigate or prosecute any alcohol or drug abuse patient.[facility] Encounter Details Date Type Department Care Team ([facility] st Contact Info) Description 12/13/2008 Patient Msg Medical Records [address] [place] [address] Provider, Ccf RE: Appointment Cancellation Request Social [...] Description 05/06/2025 1:00 PM EDT Office Visit [facility] [address] [facility] [place] [address] Caitlin Estrada MD [address] [place], [place] [address] New patient eveduin 05/16/2025 10:00 AM EDT Office Visit Rheumatology 57[address] [facility] [place] [address] Priscilla Mckee MD [address] [facility] [place] [address] Psoriatic Arthritis 07/04/2025 11:30 AM EST Office Visit Neurology [address] [place] [address] Fide Boucher DO [address] [place] [address] 3 month f/u documented as of this encounter Visit Diagnoses Not on filedocumented in this encounter Care Teams Car Worker Helper Relationship Specialty Start Date End Date Camila Rodriguez MD [address] [place] [address] [place] [address] PCP - General 10/13/09 12/28/12 Lizeth Tillman MD [address] [place] [address] [place] [address] PCP - General 08/16/09 10/12/09 Clinton Gonzales MD [address] [place] [address] [place] [address] PCP - General 09/02/08 08/15/09 Adebayo Reddy MD [address] [facility]6 [facility] [place] [address] PCP - General Family Medicine 12/29/12 08/15/14 Ed Alfredo DO [address] [facility]6 [facility] [place] [address] PCP - General Family Medicine 08/16/14 08/31/19 Darrius Orr MD [address] [facility] 230 [place] [address] PCP - General Internal Medicine 09/01/19 Darrius Orr MD [address] [facility] 230 [place] [address] Referring Internal Medicine 11/16/24 documented as of this encounter
--- OUTSIDE RECORDS SUMMARY | 2025-04-18 22:55 | XMS_ITS | Encounter Summary ---
Author Organization [facility] Address [facility] [place] [address] Care Team Providers Care Charger Operator Helper Name Role Phone Adebayo Reddy MD Primary Care Provider [phone] Ed Alfredo DO Primary Care Provider [phone] Darrius Orr MD Primary Care Provider [phone] Darrius Orr MD Unavailable [phone] Source Comments In the event this information is protected by the Federal Confidentiality of Alcohol and Drug AbusePatient Records regulations: The Federal rules restrict any use of the information to criminally investigate or prosecute any alcohol or drug abuse patient.[facility] Encounter Details Date Type Department Care Team (Late st Contact Info) Description 03/06/2014 Patient Msg Medical Records [address] [place] [address] Provider, Ccf Appointment Cancellation Request Social History [...] Nguyen Cowartitlyn (At)(Hist) * Do you have serious difficulty [...] PM EDT Office Visit [facility] [address] [place] [address] Caitlin Estrada MD [address] [place] [address] New patient caroline 05/16/2025 10:00 AM EDT Office Visit Rheumatology [address] [place] [address] Priscilla Mckee MD [address] [place] [address] Psoriatic Arthritis 07/04/2025 11:30 AM EST Office Visit Neurology [address] [place] [address] Fide Boucher DO [address] [place] [address] 3 month f/u documented as of this encounter Visit Diagnoses Not on filedocumented in this encounter Care Teams Charger Operator Helper Relationship Specialty Start Date End Date Adebayo Reddy MD [address] [place] [address] PCP - General Family Medicine 12/29/12 08/15/14 Ed Alfredo DO [address] [place] [address] PCP - General Family Medicine 08/16/14 08/31/19 Darrius Orr MD [address] [place] [address] PCP - General Internal Medicine 09/01/19 Darrius Orr MD [address] [place] [address] Referring Internal Medicine 11/16/24 documented as of this encounter
--- OUTSIDE RECORDS SUMMARY | 2025-04-18 22:55 | XMS_ITS | Encounter Summary ---
Author Organization [facility] Address [address] [place] [address] Care Team Providers Care Field Service Technician Poultry Name Role Phone Adebayo Reddy MD Primary Care Provider [phone] Ed Alfredo DO Primary Care Provider [phone] Darrius Orr MD Primary Care Provider [phone] Darrius Orr MD Unavailable [phone] Source Comments In the event this information is protected by the Federal Confidentiality of Alcohol and Drug AbusePatient Records regulations: The Federal rules restrict any use of the information to criminally investigate or prosecute any alcohol or drug abuse patient.[facility] Encounter Details Date Type Department Care Team (Late st Contact Info) Description 02/14/2014 Patient Msg Medical Records [address] [place] [address] Provider, Ccf RE: Appointment Cancellation Request Social [...] Description 05/06/2025 1:00 PM EDT Office Visit [facility] [address] [facility] [place] [address] Caitlin Estrada MD [address] [place] [address] New patient caroline 05/16/2025 10:00 AM EDT Office Visit Rheumatology 5700 [facility] [place] [address] Priscilla Mckee MD [address] [facility] [place] [address] Psoriatic Arthritis 07/04/2025 11:30 AM EST Office Visit Neurology [address] [place] [address] Fide Boucher DO [address] [place] [address] 3 month f/u documented as of this encounter Visit Diagnoses Not on filedocumented in this encounter Care Teams Field Service Technician Poultry Relationship Specialty Start Date End Date Adebayo Reddy MD [address] [place] [address] PCP - General Family Medicine 12/29/12 08/15/14 Ed Alfredo DO [address] [place] [address] PCP - General Family Medicine 08/16/14 08/31/19 Darrius Orr MD [address] [place] [address] PCP - General Internal Medicine 09/01/19 Darrius Orr MD [address] [place] [address] Referring Internal Medicine 11/16/24 documented as of this encounter
--- OUTSIDE RECORDS SUMMARY | 2025-04-18 22:55 | XMS_ITS | Encounter Summary ---
Author Organization [facility] Address [address] [place] [address] Care Team Providers Care Wine Cellar Worker Name Role Phone Adebayo Reddy MD Primary Care Provider [phone] Ed Alfredo DO Primary Care Provider [phone] Darrius Orr MD Primary Care Provider [phone] Darrius Orr MD Unavailable [phone] Source Comments In the event this information is protected by the Federal Confidentiality of Alcohol and Drug AbusePatient Records regulations: The Federal rules restrict any use of the information to criminally investigate or prosecute any alcohol or drug abuse patient.[facility] Reason for Visit * Reason Comments Management Of High Risk Medications Encounter Details Date Type Department Care Team (Late st Contact Info) Description 04/27/2014 Abstract [facility] [address] [place] [address] Clayton Campos MD [address] [place] [address] Management Of High Risk Medications Social [...] Description 05/06/2025 1:00 PM EDT Office Visit [facility] [address] [place] [address] Caitlin Estrada MD [address] [place] [address] New patient eval 05/16/2025 10:00 AM EDT Office Visit Rheumatology [address] [place] [id number] Priscilla Mckee MD [address] [place] [address] Psoriatic Arthritis 07/04/2025 11:30 AM EST Office Visit Neurology [address] [place] [address] Fide Boucher DO [address] [place] [address] 3 month f/u documented as of this encounter Visit Diagnoses Not on filedocumented in this encounter Care Teams Wine Cellar Worker Relationship Specialty Start Date End Date Adebayo Reddy MD [address] [place] [address] PCP - General Family Medicine 12/29/12 08/15/14 Ed Alfredo DO [address] [facility]6 [place] [address] PCP - General Family Medicine 08/16/14 08/31/19 Darrius Orr MD [address] [place] [address] PCP - General Internal Medicine 09/01/19 Darrius Orr MD [address] [place] [address] Referring Internal Medicine 11/16/24 documented as of this encounter
--- OUTSIDE RECORDS SUMMARY | 2025-04-18 22:55 | XMS_ITS | Encounter Summary ---
Author Organization [facility] Address [facility] [place] [address] Care Team Providers Care Deep Fat Fry Cook Name Role Phone Camila Rodriguez MD Primary Care Provider + [phone] Lizeth Tillman MD Primary Care Provider [phone] Clinton Gonzales MD Primary Care Provider + [phone] Rich Chun MD Primary Care Provider [phone] Adebayo Reddy MD Primary Care Provider [phone] Ed Alfredo DO Primary Care Provider [phone] Darrius Orr MD Primary Care Provider [phone] Darrius Orr MD Unavailable [phone] Source Comments In the event this information [...] Description 03/24/2008 Patient Msg Medical Records [address] [place] [address] Provider, Ccf Appointment Cancellation Request Social History [...] Description 05/06/2025 1:00 PM EDT Office Visit [facility] [address] [place] [address] Caitlin Estrada MD [address] [place], [place] [id number] New patient caroline 05/16/2025 10:00 AM EDT Office Visit Rheumatology 57[address] [facility] [place] [address] Priscilla Mckee MD [address] [facility] [place] [address] Psoriatic Arthritis 07/04/2025 11:30 AM EST Office Visit Neurology [address] [place] [address] Fide Boucher DO [address] [place] [address] 3 month f/u documented as of this encounter Visit Diagnoses Not on filedocumented in this encounter Care Teams Deep Fat Fry Cook Relationship Specialty [place] [address] [place] [address] [place] [address] PCP - General 10/13/09 12/28/12 [place] [address] [place] [address] [place] [address] PCP - General 08/16/09 10/12/09 Clinton Gonzales MD [address] [place] [address] PCP - General 09/02/08 08/15/09 Rich Chun MD [address] [place] [address] PCP - General 11/27/06 09/01/08 Adebayo Reddy MD [address] [facility] [address] [place] [address] PCP - General Family Medicine 12/29/12 08/15/14 Ed Alfredo DO [address] [place] [address] PCP - General Family Medicine 08/16/14 08/31/19 Darrius Orr MD [address] [facility] 230 [place] [address] PCP - General Internal Medicine 09/01/19 Darrius Orr MD [address] [place] [address] Referring Internal Medicine 11/16/24 documented as of this encounter
--- OUTSIDE RECORDS SUMMARY | 2025-04-18 22:55 | XMS_ITS | Encounter Summary ---
Author Organization [facility] Address [address] [facility] [place] [address] Care Team Providers Care Director And Professor Name Role Phone Darrius Orr MD Unavailable [phone] Darrius Orr MD Primary Care Provider [phone] Aiden Linares DPM Unavailable [phone] Kai Gutierres DO Unavailable [phone] Encounter Details Date Type Department Care Team ([facility] Contact Info) Description 12/09/2024 Orders Only [facility] [address] [facility] [address] [place] [address] Darrius Orr MD [address] [facility] 230 [place] [address] Social History Tobacco Use Types Packs/Day Years [...] 05/05/2025 1:15 PM EDT Office Visit [facility] [address] [place] [phone] Bina Faye MD [address] [place] [address] 06/06/2025 2:00 PM EST Office Visit [facility] [address] [place] [address] 07/18/2025 3:15 PM EST Procedure [facility] [address] [place] [address] Susie Mary DPM [address] [place] [address] documented as of this encounter Visit Diagnoses Not on filedocumented in this encounter Care Teams Director And Professor Relationship Specialty Start Date End Date Darrius Orr MD [address] [place] [address] PCP - [employer] 08/04/19 Darrius Orr MD [address] [place] [address] PCP - General Internal Medicine 12/31/22 Aiden Linares DPM [address] [place] [address] Referring Physician Podiatry 10/30/23 Kai Gutierres DO [address] [phone] Referring Physician Neurology 02/24/24 documented as of this encounter
--- OUTSIDE RECORDS SUMMARY | 2025-04-18 22:55 | XMS_ITS | Encounter Summary ---
Author Organization [facility] Address [address] [place] [address] Care Team Providers Care Legal Editor Name Role Phone Ed Alfredo DO Primary Care Provider [phone] Darrius Orr MD Primary Care Provider [phone] Darrius Orr MD Unavailable [phone] Source Comments In the event this information is protected by the Federal Confidentiality of Alcohol and Drug AbusePatient Records regulations: The Federal rules restrict any use of the information to criminally investigate or prosecute any alcohol or drug abuse patient.[facility] Encounter Details Date Type Department Care Team (Late st Contact Info) Description 08/17/2014 Get Medical Advice Neurology [address] [place] [address] Clayton Campos MD [address] [place] [address] Test Result Question Social History Tobacco [...] Visit [facility] [address] [place] [address] Caitlin Estrada MD [address] [place] [address] New patient caroline 05/16/2025 10:00 AM EDT Office Visit Rheumatology [address] [place] [address] Priscilla Mckee MD [address] [facility] [place] [address] Psoriatic Arthritis 07/04/2025 11:30 AM EST Office Visit Neurology [address] [facility] [place] [address] Fide Boucher DO [address] [facility] [address] 3 month f/u documented as of this encounter Visit Diagnoses Not on filedocumented in this encounter Care Teams Legal Editor Relationship Specialty Start Date End Date Ed Alfredo DO PCP - General Family Medicine 08/16/14 08/31/19 Darrius Orr MD [address] [place] [address] PCP - General Internal Medicine 09/01/19 Darrius Orr MD [address] [place] [address] Referring Internal Medicine 11/16/24 documented as of this encounter
--- OUTSIDE RECORDS SUMMARY | 2025-04-18 22:55 | XMS_ITS | Encounter Summary ---
Author Organization [facility] Address [address] [place] [address] Care Team Providers Care Collections Rep Name Role Phone Adebayo Reddy MD Primary Care Provider [phone] Ed Alfredo DO Primary Care Provider [phone] Darrius Orr MD Primary Care Provider [phone] Darrius Orr MD Unavailable [phone] Source Comments In the event this information is protected by the Federal Confidentiality of Alcohol and Drug AbusePatient Records regulations: The Federal rules restrict any use of the information to criminally investigate or prosecute any alcohol or drug abuse patient.[facility] Encounter Details Date Type Department Care Team (Late st Contact Info) Description 09/06/2013 Patient Msg Medical Records [address] [place] [address] Provider, Ccf RE: Request an Appointment Social [...] EDT Office Visit [facility] [address] [place] [address] Caitlin Estrada MD [address] [place] [address] New patient eval 05/16/2025 10:00 AM EDT Office Visit Rheumatology [address] [place] [address] Priscilla Mckee MD [address] [place] [address] Psoriatic Arthritis 07/04/2025 11:30 AM EST Office Visit Neurology [address] [place] [address] Fide Boucher DO [address] [place] [address] 3 month f/u documented as of this encounter Visit Diagnoses Not on filedocumented in this encounter Care Teams Collections Rep Relationship Specialty Start Date End Date Adebayo Reddy MD [address] [place] [address] PCP - General Family Medicine 12/29/12 08/15/14 Ed Alfredo DO [address] [place] [address] PCP - General Family Medicine 08/16/14 08/31/19 Darrius Orr MD [address] [address] PCP - General Internal Medicine 09/01/19 Darrius Orr MD [address] [facility] [address] [place] [id number] Referring Internal Medicine 11/16/24 documented as of this encounter
--- OUTSIDE RECORDS SUMMARY | 2025-04-18 22:55 | XMS_ITS | Encounter Summary ---
Author Organization [facility] Address [address] [place] [address] Care Team Providers Care Community Health Education Coordinator Name Role Phone Adebayo Reddy MD Primary Care Provider [phone] Ed Alfredo DO Primary Care Provider [phone] Darrius Orr MD Primary Care Provider [phone] Darrius Orr MD Unavailable [phone] Source Comments In the event this information is protected by the Federal Confidentiality of Alcohol and Drug AbusePatient Records regulations: The Federal rules restrict any use of the information to criminally investigate or prosecute any alcohol or drug abuse patient.[facility] Encounter Details Date Type Department Care Team (Late st Contact Info) Description 02/17/2014 Patient Msg Medical Records [address] [place] [address] Provider, Ccf RE: Request an Appointment Social [...] EDT Office Visit [facility] [address] [place] [address] Caitlin Estrada MD [address] [place] [address] New patient eveduin 05/16/2025 10:00 AM EDT Office Visit Rheumatology [address] [place] [address] Priscilla Mckee MD [address] [facility] [place] [address] Psoriatic Arthritis 07/04/2025 11:30 AM EST Office Visit Neurology [address] [place] [address] Fide Boucher DO [address] [place] [address] 3 month f/u documented as of this encounter Visit Diagnoses Not on filedocumented in this encounter Care Teams Community Health Education Coordinator Relationship Specialty Start Date End Date Adebayo Reddy MD [address] [place] [address] PCP - General Family Medicine 12/29/12 08/15/14 Ed Alfredo DO [address] [facility] [place] [address] PCP - General Family Medicine 08/16/14 08/31/19 Darrius Orr MD [address] [place] [address] PCP - General Internal Medicine 09/01/19 Darrius Orr MD [address] [place] [address] Referring Internal Medicine 11/16/24 documented as of this encounter
--- OUTSIDE RECORDS SUMMARY | 2025-04-18 22:55 | XMS_ITS | Encounter Summary ---
Author Organization [facility] Address [facility] [place] [address] Care Team Providers Care Help Desk Supervisor Name Role Phone Adebayo Reddy MD Primary Care Provider [phone] Ed Alfredo DO Primary Care Provider [phone] Darrius Orr MD Primary Care Provider [phone] Darrius Orr MD Unavailable [phone] Source Comments In the event this information is protected by the Federal Confidentiality of Alcohol and Drug AbusePatient Records regulations: The Federal rules restrict any use of the information to criminally investigate or prosecute any alcohol or drug abuse patient.[facility] Encounter Details Date Type Department Care Team (Late st Contact Info) Description 09/03/2013 Patient Msg Medical Records [address] [place] [address] Provider, Ccf Request an Appointment Social History [...] Visit [facility] [address] [place] [address] Caitlin Estrada MD [address] [place] [address] New patient eval 05/16/2025 10:00 AM EDT Office Visit Rheumatology [address] [place] [address] Priscilla Mckee MD [address] [place] [address] Psoriatic Arthritis 07/04/2025 11:30 AM EST Office Visit Neurology [address] [place] [address] Fide Boucher DO [address] [place] [address] 3 month f/u documented as of this encounter Visit Diagnoses Not on filedocumented in this encounter Care Teams Help Desk Supervisor Relationship Specialty Start Date End Date Adebayo Reddy MD [address] [facility] [address] [place] [address] PCP - General Family Medicine 12/29/12 08/15/14 Ed Alfredo DO [address] [place] [address] PCP - General Family Medicine 08/16/14 08/31/19 Darrius Orr MD [address] [place] [address] PCP - General Internal Medicine 09/01/19 Darrius Orr MD [address] [facility] [address] [place] [id number] Referring Internal Medicine 11/16/24 documented as of this encounter
--- OUTSIDE RECORDS SUMMARY | 2025-04-18 22:55 | XMS_ITS | Encounter Summary ---
Author Organization [facility] Address [address] [place] [address] Care Team Providers Care Tentmaker Name Role Phone Camila Rodriguez MD Primary Care Provider [phone] Lizeth Tillman MD Primary Care Provider [phone] Clinton Gonzales MD Primary Care Provider + [phone] Adebayo Reddy MD Primary Care Provider [phone] Ed Alfredo DO Primary Care Provider [phone] Darrius Orr MD Primary Care Provider [phone] Darrius Orr MD Unavailable [phone] Source Comments In the event this information is protected by the Federal Confidentiality of Alcohol and Drug AbusePatient Records regulations: The Federal rules restrict any use of the information to criminally investigate or prosecute any alcohol or drug abuse patient.[facility] Encounter Details Date Type Department Care Team ([facility] st Contact Info) Description 11/11/2008 Patient Msg Medical Records [address] [place] [address] Provider, Ccf RE: Appointment Cancellation Request Social [...] Description 05/06/2025 1:00 PM EDT Office Visit [facility] [address] [facility] [place] [address] Caitlin Estrada MD [address] [place], [place] [address] New patient eveduin 05/16/2025 10:00 AM EDT Office Visit Rheumatology [address] [facility] [place] [address] Priscilla Mckee MD [address] [facility] [place] [address] Psoriatic Arthritis 07/04/2025 11:30 AM EST Office Visit Neurology [address] [place] [address] Fide Boucher DO [address] [place] [address] 3 month f/u documented as of this encounter Visit Diagnoses Not on filedocumented in this encounter Care Teams Tentmaker Relationship Specialty Start Date End Date Camila Rodriguez MD [address] [place] [address] [place] [address] PCP - General 10/13/09 12/28/12 Lizeth Tillman MD [address] [place] [address] [place] [address] PCP - General 08/16/09 10/12/09 Clinton Gonzales MD [address] [place] [address] [place] [address] PCP - General 09/02/08 08/15/09 Adebayo Reddy MD [address] [facility] [place] [address] PCP - General Family Medicine 12/29/12 08/15/14 Ed Alfredo DO [address] [facility] [place] [address] PCP - General Family Medicine 08/16/14 08/31/19 Darrius Orr MD [address] [facility] 230 [place] [address] PCP - General Internal Medicine 09/01/19 Darrius Orr MD [address] [facility] [address] [place] [address] Referring Internal Medicine 11/16/24 documented as of this encounter
--- OUTSIDE RECORDS SUMMARY | 2025-04-18 22:55 | XMS_ITS | Encounter Summary ---
Author Organization [facility] Address [address] [facility] [place] [address] Care Team Providers Care Contract Graphic Designer Name Role Phone Darrius Orr MD Unavailable [phone] Darrius Orr MD Primary Care Provider [phone] Aiden Linares DPM Unavailable [phone] Kai Gutierres DO Unavailable [phone] Encounter Details Date Type Department Care Team ([facility] Contact Info) Description 11/04/2024 External Result Encounter [facility] External Department Unsolicited Darrius Orr MD [address] [facility] [address] [place] [address] Social History Tobacco Use Types Packs/Day Years [...] 05/05/2025 1:15 PM EDT Office Visit [facility] [address] [place] [address] Bina Faye MD [address] [place] [address] 06/06/2025 2:00 PM EST Office Visit [facility] [place] [facility] [address] [place] [address] 07/18/2025 3:15 PM EST Procedure Visit [facility] [address] [place] [address] Susie Mary DPM [address] [place] [address] documented as of this encounter Procedures Procedure [...] Delio Nevarez M.D.11/04/2024 4:08 PM Dictation Location: [facility]--20 Transcribed By: JOSEPH 11/04/24 1608 Dictated By: Delio Nevarez DO 11/04/24 1606 Signed By: <Electronically signed by Delio Nevarez DO in OV> 11/04/24 1608 Narrative 11/04/2024 4:11 PM EDT [facility] [place] [id number] Nuclear Medicine Report Signed Patient: Alex Dyer MR#: [id number] 73 : 1970 Acct:[id number] Age/Sex: 54 / M ADM Date: 11/04/24 Loc: [place] Room: Type: [facility] CLI Attending Dr: Darrius Orr MD [...] Procedure Note Radiology, Radiologist, MD - 11/04/2024 [place] [address] Nuclear Medicine Report Signed Patient: Alex Dyer JMR#: [id number] 73 : 1970Acct:[id number] Age/Sex: 54 / MADM Date: 11/04/24 Loc: [place] Room:Type: [facility] CLI Attending Dr: Darrius Orr MD [...] Delio Nevarez M.D.11/04/2024 4:08 PM Dictation Location: [facility]-20 Transcribed By: PWS 11/04/24 1608 Dictated By: Delio Nevarez DO 11/04/24 1606 Signed By: <Electronically signed by Delio Nevarez DO in OV> 11/04/24 1608 Darrius Orr MD IM [place] PROCEDURES Final Result documented in this encounter Visit Diagnoses Not on filedocumented in this encounter Care Teams Contract Graphic Designer Relationship Specialty Start Date End Date Darrius Orr MD [address] [facility] 230 [place] [address] PCP - [employer] 08/04/19 Darrius Orr MD [address] [place] [address] PCP - General Internal Medicine 12/31/22 Aiden Linares DPM [address] [facility] [address] [place] [address] Referring Physician Podiatry 10/30/23 Kia Gutierres DO [address] [facility] 353 [place] [address] Referring Physician Neurology 02/24/24 documented as of this encounter
--- OUTSIDE RECORDS SUMMARY | 2025-04-18 22:55 | XMS_ITS | Encounter Summary ---
Author Organization [facility] Address [address] [place] [address] Care Team Providers Care Overnight Caregiver Name Role Phone Adebayo Reddy MD Primary Care Provider [phone] Ed Alfredo DO Primary Care Provider [phone] Darrius Orr MD Primary Care Provider [phone] Darrius Orr MD Unavailable [phone] Source Comments In the event this information is protected by the Federal Confidentiality of Alcohol and Drug AbusePatient Records regulations: The Federal rules restrict any use of the information to criminally investigate or prosecute any alcohol or drug abuse patient.[facility] Encounter Details Date Type Department Care Team (Late st Contact Info) Description 02/12/2014 Patient Msg Medical Records [address] [place] [address] Provider, Ccf RE: Request an Appointment Social [...] Description 05/06/2025 1:00 PM EDT Office Visit [facility] [address] [place] [address] Caitlin Estrada MD [address] [place] [address] New patient eveduin 05/16/2025 10:00 AM EDT Office Visit Rheumatology [address] [place] [address] Priscilla Mckee MD [address] [facility] STEPH[facility]IE [facility] [address] Psoriatic Arthritis 07/04/2025 11:30 AM EST Office Visit Neurology [address] [place] [address] Fide Boucher DO [address] [place] [address] 3 month f/u documented as of this encounter Visit Diagnoses Not on filedocumented in this encounter Care Teams Overnight Caregiver Relationship Specialty Start Date End Date Adebayo Reddy MD [address] [place] [address] PCP - General Family Medicine 12/29/12 08/15/14 Ed Alfredo DO [address] [facility] [place] [address] PCP - General Family Medicine 08/16/14 08/31/19 Darrius Orr MD [address] [place] [address] PCP - General Internal Medicine 09/01/19 Darrius Orr MD [address] [place] [address] Referring Internal Medicine 11/16/24 documented as of this encounter
--- OUTSIDE RECORDS SUMMARY | 2025-04-18 22:56 | XMS_ITS | Encounter Summary ---
Author Organization [facility] Address [address] [place] [address] Care Team Providers Care Licensing Analyst Name Role Phone Ed Alfredo DO Primary Care Provider [phone] Darrius Orr MD Primary Care Provider [phone] Darrius Orr MD Unavailable [phone] Source Comments In the event this information is protected by the Federal Confidentiality of Alcohol and Drug AbusePatient Records regulations: The Federal rules restrict any use of the information to criminally investigate or prosecute any alcohol or drug abuse patient.[facility] Encounter Details Date Type Department Care Team (Late st Contact Info) Description 09/02/2015 Patient Msg Neurology [address] [place] [address] [place] [address] [place], [place] [address] RE: Request an Appointment Social History Tobacco [...] Description 05/06/2025 1:00 PM EDT Office Visit [facility] [address] [facility] [place] [address] Caitlin Estrada MD [address] [place] [address] New patient caroline 05/16/2025 10:00 AM EDT Office Visit Rheumatology 5700 [facility] [place] [address] Priscilla Mckee MD [address] [facility] [place] [address] Psoriatic Arthritis 07/04/2025 11:30 AM EST Office Visit Neurology [address] [place] [address] Fide Boucher DO [address] [place] [address] 3 month f/u documented as of this encounter Visit Diagnoses Not on filedocumented in this encounter Care Teams Licensing Analyst Relationship Specialty Start Date End Date Ed Alfredo DO PCP - General Family Medicine 08/16/14 08/31/19 Darrius Orr MD [address] [place] [address] PCP - General Internal Medicine 09/01/19 Darrius Orr MD [address] [place] [address] Referring Internal Medicine 11/16/24 documented as of this encounter
--- OUTSIDE RECORDS SUMMARY | 2025-04-18 22:56 | XMS_ITS | Encounter Summary ---
Author Organization [facility] Address [facility] [place] [address] Care Team Providers Care Child And Youth Program Assistant Name Role Phone Ed Alfredo DO Primary Care Provider [phone] Darrius Orr MD Primary Care Provider [phone] Darrius Orr MD Unavailable [phone] Source Comments In the event this information is protected by the Federal Confidentiality of Alcohol and Drug AbusePatient Records regulations: The Federal rules restrict any use of the information to criminally investigate or prosecute any alcohol or drug abuse patient.[facility] Encounter Details Date Type Department Care Team (Late st Contact Info) Description 10/17/2014 Patient Msg Medical Records [address] [place] [address] Provider, Ccf RE: Request an Appointment Social [...] 05/06/2025 1:00 PM EDT [facility] [address] [place] [address] Caitlin Estrada MD [address] [place] [address] New patient eval 05/16/2025 10:00 AM EDT Office Visit Rheumatology [address] [place] [address] Priscilla Mckee MD [address] [place] [address] Psoriatic Arthritis 07/04/2025 11:30 AM EST Office Visit Neurology [address] [place] [address] Fide Boucher DO [address] [place] [address] 3 month f/u documented as of this encounter Visit Diagnoses Not on filedocumented in this encounter Care Teams Child And Youth Program Assistant Relationship Specialty Start Date End Date Ed Alfredo DO PCP - General Family Medicine 08/16/14 08/31/19 Darrius Orr MD [address] [place] [address] PCP - General Internal Medicine 09/01/19 Darrius Orr MD [address] [place] [address] Referring Internal Medicine 11/16/24 documented as of this encounter
--- OUTSIDE RECORDS SUMMARY | 2025-04-18 22:56 | XMS_ITS | Encounter Summary ---
Author Organization [facility] Address [address] [place] [address] Care Team Providers Care Junior Legal Secretary Name Role Phone Ed Alfredo DO Primary Care Provider [phone] Darrius Orr MD Primary Care Provider [phone] Darrius Orr MD Unavailable [phone] Source Comments In the event this information is protected by the Federal Confidentiality of Alcohol and Drug AbusePatient Records regulations: The Federal rules restrict any use of the information to criminally investigate or prosecute any alcohol or drug abuse patient.[facility] Encounter Details Date Type Department Care Team (Late st Contact Info) Description 11/14/2014 Get Medical Advice Neurology [address] [place] [address] Clayton Campos MD [address] [place] [address] RE: Medication Question (Not Renewal) Social [...] Assessment Author No 10/25/2014 10:52 AM EDT Venice Nettles MA * Are you blind or do you have serious difficulty seeing, even when wearing glasses? Answer Date of Assessment Author Yes 10/25/2014 10:52 AM EDT Venice Nettles MA * Do you have serious difficulty walking or climbing stairs? Answer Date of Assessment Author Yes 10/25/2014 10:52 AM EDT Venice Nettles MA * Do you have difficulty dressing or bathing? Answer Date of Assessment Author No 10/25/2014 10:52 AM EDT Venice Nettles MA * Because of a physical, mental, or emotional condition, do you have difficulty doing errands alone such as visiting a doctor's office or shopping? Answer Date of Assessment Author No 10/25/2014 10:52 AM EDT Venice Nettles MA documented as of this encounter Mental Status * Because of a physical, mental, or emotional condition, do you have serious difficulty concentrating, remembering, or making decisions? Answer Entry Date Author Yes 10/25/2014 10:52 AM EDT Venice Nettles MA documented in this encounter Plan of Treatment Upcoming Encounters Date Type Department Care Team (Late st Contact Info) Description 05/06/2025 1:00 PM EDT Office Visit [facility] [address] [facility] [place] [address] Caitlin Estrada MD [address] [place] [address] New patient eval 05/16/2025 10:00 AM EDT Office Visit Rheumatology [address] [place] [id number] Priscilla Mckee MD [address] [place] [address] Psoriatic Arthritis 07/04/2025 11:30 AM EST Office Visit Neurology [address] [place] [address] Fide Boucher DO [address] [place] [address] 3 month f/u documented as of this encounter Visit Diagnoses Not on filedocumented in this encounter Care Teams Junior Legal Secretary Relationship Specialty Start Date End Date Ed Alfredo DO PCP - General Family Medicine 08/16/14 08/31/19 Darrius Orr MD [address] [place] [address] PCP - General Internal Medicine 09/01/19 Darrius Orr MD [address] [place] [address] Referring Internal Medicine 11/16/24 documented as of this encounter
--- OUTSIDE RECORDS SUMMARY | 2025-04-18 22:56 | XMS_ITS | Encounter Summary ---
Author Organization [facility] Address [address] [place] [address] Care Team Providers Care Storage Facility Rental Clerk Name Role Phone Ed Alfredo DO Primary Care Provider [phone] Darrius Orr MD Primary Care Provider [phone] Darrius Orr MD Unavailable [phone] Source Comments In the event this information is protected by the Federal Confidentiality of Alcohol and Drug AbusePatient Records regulations: The Federal rules restrict any use of the information to criminally investigate or prosecute any alcohol or drug abuse patient.[facility] Encounter Details Date Type Department Care Team (Late st Contact Info) Description 09/12/2016 Patient Msg Neurology [address] [place], [place] [address] Gabi Tamez PA-C [address] [place] [address] RE: Request an Appointment Social [...] 02/15/2015 10:31 AM MARCELOT Mckay Neumann MA documented as of this [...] Description 05/06/2025 1:00 PM EDT Office Visit [facility] [address] [place] [address] Caitlin Estrada MD [address] [place] [address] New patient caroline 05/16/2025 10:00 AM EDT Office Visit Rheumatology [address] [place] [address] Priscilla Mckee MD [address] [place] [address] Psoriatic Arthritis 07/04/2025 11:30 AM EST Office Visit Neurology [address] [place] [address] Fide Boucher DO [address] [facility] [place] [address] 3 month f/u documented as of this encounter Visit Diagnoses Not on filedocumented in this encounter Care Teams Storage Facility Rental Clerk Relationship Specialty Start Date End Date Ed Alfredo DO PCP - General Family Medicine 08/16/14 08/31/19 Darrius Orr MD [address] [place] [address] PCP - General Internal Medicine 09/01/19 Darrius Orr MD [address] [place] [address] Referring Internal Medicine 11/16/24 documented as of this encounter
--- OUTSIDE RECORDS SUMMARY | 2025-04-18 22:56 | XMS_ITS | Encounter Summary ---
Author Organization [facility] Address [address] [place] [address] Care Team Providers Care Activity Leader Name Role Phone Camila Rodriguez MD Primary Care Provider [phone] Adebayo Reddy MD Primary Care Provider [phone] Ed Alfredo DO Primary Care Provider [phone] Darrius Orr MD Primary Care Provider [phone] Darrius Orr MD Unavailable [phone] Source Comments In the event this information is protected by the Federal Confidentiality of Alcohol and Drug AbusePatient Records regulations: The Federal rules restrict any use of the information to criminally investigate or prosecute any alcohol or drug abuse patient.[facility] Encounter Details Date Type Department Care Team (Late st Contact Info) Description 04/10/2011 Patient Msg Medical Records [address] [place] [address] Provider, Ccf Request an Appointment Social History [...] Description 05/06/2025 1:00 PM EDT Office Visit [facility] [address] [facility] [place] [address] Caitlin Estrada MD [address] [place] [address] New patient eval 05/16/2025 10:00 AM EDT Office Visit Rheumatology [address] [facility] [place] [address] Priscilla Mckee MD [address] [facility] [place] [address] Psoriatic Arthritis 07/04/2025 11:30 AM EST Office Visit Neurology [address] [place] [address] Fide Boucher DO [address] [place] [address] 3 month f/u documented as of this encounter Visit Diagnoses Not on filedocumented in this encounter Care Teams Activity Leader Relationship Specialty Start Date End Date Camila Rodriguez MD [address] [place] [address] [place] [address] PCP - General 10/13/09 12/28/12 Adebayo Reddy MD [address] [facility] [address] [place] [address] PCP - General Family Medicine 12/29/12 08/15/14 [place] [address] [place] [address] [address] [place] [address] PCP - General Family Medicine 08/16/14 08/31/19 Darrius Orr MD [address] [place] [address] PCP - General Internal Medicine 09/01/19 Darrius Orr MD [address] [place] [address] Referring Internal Medicine 11/16/24 documented as of this encounter
--- OUTSIDE RECORDS SUMMARY | 2025-04-18 22:56 | XMS_ITS | Encounter Summary ---
Author Organization [facility] Address [facility] [place] [address] Care Team Providers Care Clinical Nurse Name Role Phone Ed Alfredo DO Primary Care Provider [phone] Darrius Orr MD Primary Care Provider [phone] Darrius Orr MD Unavailable [phone] Source Comments In the event this information is protected by the Federal Confidentiality of Alcohol and Drug AbusePatient Records regulations: The Federal rules restrict any use of the information to criminally investigate or prosecute any alcohol or drug abuse patient.[facility] Encounter Details Date Type Department Care Team (Late st Contact Info) Description 08/23/2014 Patient Msg Medical Records [address] [place] [address] Provider, Ccf MRI Results Social History Tobacco [...] Description 05/06/2025 1:00 PM EDT Office Visit [facility] [address] [place] [address] Caitlin Estrada MD [address] [place] [address] New patient eval 05/16/2025 10:00 AM EDT Office Visit Rheumatology [address] [place] [address] Priscilla Mckee MD [address] [place] [address] Psoriatic Arthritis 07/04/2025 11:30 AM EST Office Visit Neurology [address] [place] [address] Fide Boucher DO [address] [place] [address] 3 month f/u documented as of this encounter Visit Diagnoses Not on filedocumented in this encounter Care Teams Clinical Nurse Relationship Specialty Start Date End Date Ed Alfredo DO PCP - General Family Medicine 08/16/14 08/31/19 Darrius Orr MD [address] [place] [address] PCP - General Internal Medicine 09/01/19 Darrius Orr MD [address] [place] [address] Referring Internal Medicine 11/16/24 documented as of this encounter
--- OUTSIDE RECORDS SUMMARY | 2025-04-18 22:56 | XMS_ITS | Encounter Summary ---
Author Organization [facility] Address [address] [place] [address] Care Team Providers Care Liner Man Name Role Phone Camila Rodriguez MD Primary Care Provider [phone] Adebayo Reddy MD Primary Care Provider [phone] Ed Alfredo DO Primary Care Provider + [phone] Darrius Orr MD Primary Care Provider [phone] Darrius Orr MD Unavailable [phone] Source Comments In the event this information is protected by the Federal Confidentiality of Alcohol and Drug AbusePatient Records regulations: The Federal rules restrict any use of the information to criminally investigate or prosecute any alcohol or drug abuse patient.[facility] Encounter Details Date Type Department Care Team (Late st Contact Info) Description 10/18/2009 Patient Msg Medical Records [address] [place] [address] Provider, Ccf Request an Appointment Social History [...] Office Visit [facility] [address] [facility] [address] Caitlin Estrada MD [address] [place] [address] New patient eveduin 05/16/2025 10:00 AM EDT Office Visit Rheumatology [address] [facility] [place] [address] Priscilla Mckee MD [address] [facility] [place] [address] Psoriatic Arthritis 07/04/2025 11:30 AM EST Office Visit Neurology [address] [place] [address] Fide Boucher DO [address] [place] [address] 3 month f/u documented as of this encounter Visit Diagnoses Not on filedocumented in this encounter Care Teams Liner Man Relationship Specialty Start Date End Date Camila Rodriguez MD [address] [facility] [place] [address] PCP - General 10/13/09 12/28/12 Adebayo Reddy MD [address] [place] [address] PCP - General Family Medicine 12/29/12 08/15/14 Ed Alfredo DO [address] [facility] [address] [place] [address] PCP - General Family Medicine 08/16/14 08/31/19 Darrius Orr MD [address] [place] [address] PCP - General Internal Medicine 09/01/19 Darrius Orr MD [address] [place] [address] Referring Internal Medicine 11/16/24 documented as of this encounter
--- OUTSIDE RECORDS SUMMARY | 2025-04-18 22:56 | XMS_ITS | Encounter Summary ---
Author Organization [facility] Address [address] [place] [address] Care Team Providers Care Computer Programming Manager Name Role Phone Camila Rodriguez MD Primary Care Provider [phone] Adebayo Reddy MD Primary Care Provider [phone] Ed Alfredo DO Primary Care Provider + [phone] Darrius Orr MD Primary Care Provider [phone] Darrius Orr MD Unavailable [phone] Source Comments In the event this information is protected by the Federal Confidentiality of Alcohol and Drug AbusePatient Records regulations: The Federal rules restrict any use of the information to criminally investigate or prosecute any alcohol or drug abuse patient.[facility] Encounter Details Date Type Department Care Team (Late st Contact Info) Description 01/12/2010 Patient Msg Medical Records [address] [place] [address] Provider, Ccf RE: Request an Appointment Social [...] 05/06/2025 1:00 PM EDT Office Visit [facility] [address] [facility] [place] [address] Caitlin Estrada MD [address] [place] [address] New patient eveduin 05/16/2025 10:00 AM EDT Office Visit Rheumatology [address] [facility] [place] [address] Priscilla Mckee MD [address] [facility] [place] [address] Psoriatic Arthritis 07/04/2025 11:30 AM EST Office Visit Neurology [address] [place] [address] Fide Boucher DO [address] [place] [address] 3 month f/u documented as of this encounter Visit Diagnoses Not on filedocumented in this encounter Care Teams Computer Programming Manager Relationship Specialty Start Date End Date Camila Rodriguez MD [address] [facility] [place] [address] PCP - General 10/13/09 12/28/12 Adebayo Reddy MD [address] [place] [address] PCP - General Family Medicine 12/29/12 08/15/14 Ed Alfredo DO [address] [facility] [address] [place] [address] PCP - General Family Medicine 08/16/14 08/31/19 Darrius Orr MD [address] [place] [address] PCP - General Internal Medicine 09/01/19 Darrius Orr MD [address] [place] [address] Referring Internal Medicine 11/16/24 documented as of this encounter
--- OUTSIDE RECORDS SUMMARY | 2025-04-18 22:56 | XMS_ITS | Encounter Summary ---
Author Organization [facility] Address [address] [place] [address] Care Team Providers Care Chrome Plater Name Role Phone Ed Alfredo DO Primary Care Provider [phone] Darrius Orr MD Primary Care Provider [phone] Darrius Orr MD Unavailable [phone] Source Comments In the event this information is protected by the Federal Confidentiality of Alcohol and Drug AbusePatient Records regulations: The Federal rules restrict any use of the information to criminally investigate or prosecute any alcohol or drug abuse patient.[facility] Encounter Details Date Type Department Care Team (Late st Contact Info) Description 12/29/2015 Patient Msg Orthopaedics [address] [facility] [place] [address] Vicente Bosch V, DPM [address] [place], [place] [id number] RE: Appointment Cancellation Request Social History Tobacco [...] 1:00 PM EDT Office Visit [facility] [address] [place] [address] Caitlin Estrada MD [address] [place] [address] New patient caroline 05/16/2025 10:00 AM EDT Office Visit Rheumatology 57[address] [place] [address] Priscilla Mckee MD [address] [place] [address] Psoriatic Arthritis 07/04/2025 11:30 AM EST Office Visit Neurology [address] [place] [address] Fide Boucher DO [address] [place] [address] 3 month f/u documented as of this encounter Visit Diagnoses Not on filedocumented in this encounter Care Teams Chrome Plater Relationship Specialty Start Date End Date Ed Alfredo DO PCP - General Family Medicine 08/16/14 08/31/19 Darrius Orr MD [address] [place] [address] PCP - General Internal Medicine 09/01/19 Darrius Orr MD [address] [place] [address] Referring Internal Medicine 11/16/24 documented as of this encounter
--- OUTSIDE RECORDS SUMMARY | 2025-04-18 22:56 | XMS_ITS | Encounter Summary ---
Author Organization [facility] Address [facility] [place] [address] Care Team Providers Care Vp Strategic Partnerships Name Role Phone Ed Alfredo DO Primary Care Provider [phone] Darrius Orr MD Primary Care Provider [phone] Darrius Orr MD Unavailable [phone] Source Comments In the event this information is protected by the Federal Confidentiality of Alcohol and Drug AbusePatient Records regulations: The Federal rules restrict any use of the information to criminally investigate or prosecute any alcohol or drug abuse patient.[facility] Encounter Details Date Type Department Care Team (Late st Contact Info) Description 11/16/2014 Patient Msg Medical Records [address] [place] [address] Provider, Ccf RE: Appointment Cancellation Request Social [...] Assessment Author No 10/25/2014 10:52 AM EDT KaleeVenice jackson MA * Are you blind or do [...] Assessment Author No 10/25/2014 10:52 AM EDT PrabhasheritaVenice jackson MA * Because of a physical, mental, or emotional condition, do you have difficulty doing errands alone such as visiting a doctor's office or shopping? Answer Date of Assessment Author No 10/25/2014 10:52 AM EDT KaleeVenice jackson MA documented as of this encounter Mental Status * Because of a physical, mental, or emotional condition, do you have serious difficulty concentrating, remembering, or making decisions? Answer Entry Date Author Yes 10/25/2014 10:52 AM EDT KaleeVenice jackson MA documented in this encounter Plan of Treatment Upcoming Encounters Date Type Department Care Team (Late st Contact Info) Description 05/06/2025 1:00 PM EDT Office Visit [facility] [address] [place] [address] Caitlin Estrada MD [address] [place] [address] New patient eval 05/16/2025 10:00 AM EDT Office Visit [facility] [address] [facility] [place] [address] Priscilla Mckee MD [address] [place] [address] Psoriatic Arthritis 07/04/2025 11:30 AM EST Office Visit Neurology [address] [place] [address] Fide Boucher DO [address] [place] [address] 3 month f/u documented as of this encounter Visit Diagnoses Not on filedocumented in this encounter Care Teams Vp Strategic Partnerships Relationship Specialty Start Date End Date Ed Alfredo DO PCP - General Family Medicine 08/16/14 08/31/19 Darrius Orr MD [address] [place] [address] PCP - General Internal Medicine 09/01/19 Darrius Orr MD [address] [place] [address] Referring Internal Medicine 11/16/24 documented as of this encounter
--- OUTSIDE RECORDS SUMMARY | 2025-04-18 22:56 | XMS_ITS | Encounter Summary ---
Author Organization [facility] Address [address] [place] [address] Care Team Providers Care Beverage Inspection Machine Tender Name Role Phone Camila Rodriguez MD Primary Care Provider [phone] Adebayo Reddy MD Primary Care Provider [phone] Ed Alfredo DO Primary Care Provider [phone] Darrius Orr MD Primary Care Provider [phone] Darrius Orr MD Unavailable [phone] Source Comments In the event this information is protected by the Federal Confidentiality of Alcohol and Drug AbusePatient Records regulations: The Federal rules restrict any use of the information to criminally investigate or prosecute any alcohol or drug abuse patient.[facility] Encounter Details Date Type Department Care Team (Late st Contact Info) Description 11/29/2010 Patient Msg Medical Records [address] [place] [address] Provider, Ccf RE: Appointment Cancellation Request Social [...] Description 05/06/2025 1:00 PM EDT Office Visit [facility] [address] [facility] [address] Caitlin Estrada MD [address] [place] [address] New patient eveduin 05/16/2025 10:00 AM EDT Office Visit Rheumatology 57[address] [facility] [place] [address] Priscilla Mckee MD [address] [facility] [place] [address] Psoriatic Arthritis 07/04/2025 11:30 AM EST Office Visit Neurology [address] [place] [address] Fide Boucher DO [address] [place] [address] 3 month f/u documented as of this encounter Visit Diagnoses Not on filedocumented in this encounter Care Teams Beverage Inspection Machine Tender Relationship Specialty [place] [address] [place] [address] [place] [address] PCP - General 10/13/09 12/28/12 Adebayo Reddy MD [address] [facility] [address] [place] [address] PCP - General Family Medicine 12/29/12 08/15/14 Ed Alfredo DO [address] [facility] [address] [place] [address] PCP - General Family Medicine 08/16/14 08/31/19 Darrius Orr MD [address] [place] [address] PCP - General Internal Medicine 09/01/19 Darrius Orr MD [address] [place] [address] Referring Internal Medicine 11/16/24 documented as of this encounter
--- OUTSIDE RECORDS SUMMARY | 2025-04-18 22:56 | XMS_ITS | Encounter Summary ---
Author Organization [facility] Address [facility] [place] [address] Care Team Providers Care Machinist/Machine Builder Name Role Phone Ed Alfredo DO Primary Care Provider [phone] Darrius Orr MD Primary Care Provider [phone] Darirus Orr MD Unavailable [phone] Source Comments In the event this information is protected by the Federal Confidentiality of Alcohol and Drug AbusePatient Records regulations: The Federal rules restrict any use of the information to criminally investigate or prosecute any alcohol or drug abuse patient.[facility] Encounter Details Date Type Department Care Team (Late st Contact Info) Description 11/16/2014 Patient Msg Medical Records [address] [place] [address] Provider, Ccf RE: Request an Appointment Social [...] Date Author Yes 10/25/2014 10:52 AM EDT PrabhasheritaVenice jackson MA documented in this encounter Plan of Treatment Upcoming Encounters Date Type Department Care Team (Late st Contact Info) Description 05/06/2025 1:00 PM EDT Office Visit [facility] [address] [place] [address] Caitlin Estrada MD [address] [place] [address] New patient eval 05/16/2025 10:00 AM EDT Office Visit Rheumatology [address] [place] [address] Priscilla Mckee MD [address] [place] [address] Psoriatic Arthritis 07/04/2025 11:30 AM EST Office Visit Neurology [address] [place] [address] Fide Boucher DO [address] [place] [address] 3 month f/u documented as of this encounter Visit Diagnoses Not on filedocumented in this encounter Care Teams Machinist/Machine Builder Relationship Specialty Start Date End Date Ed Alfredo DO PCP - General Family Medicine 08/16/14 08/31/19 Darrius Orr MD [address] [facility] 230 [place] [address] PCP - General Internal Medicine 09/01/19 Darrius Orr MD [address] [facility] [address] [place] [address] Referring Internal Medicine 11/16/24 documented as of this encounter
--- OUTSIDE RECORDS SUMMARY | 2025-04-18 22:56 | XMS_ITS | Encounter Summary ---
Author Organization [facility] Address [address] [place] [address] Care Team Providers Care Recreation Counselor Name Role Phone Camila Rodriguez MD Primary Care Provider [phone] Adebayo Reddy MD Primary Care Provider [phone] Ed Alfredo DO Primary Care Provider [phone] Darrius Orr MD Primary Care Provider [phone] Darrius Orr MD Unavailable [phone] Source Comments In the event this information is protected by the Federal Confidentiality of Alcohol and Drug AbusePatient Records regulations: The Federal rules restrict any use of the information to criminally investigate or prosecute any alcohol or drug abuse patient.[facility] Encounter Details Date Type Department Care Team (Late st Contact Info) Description 04/12/2010 Patient Msg Medical Records [address] [place] [address] Provider, Ccf RE: Request an Appointment Social [...] EDT Office Visit [facility] [address] [facility] [place] [address] Caitlin Estrada MD [address] [place] [address] New patient eveduin 05/16/2025 10:00 AM EDT Office Visit Rheumatology [address] [facility] [place] [address] Priscilla Mckee MD [address] [facility] [place] [address] Psoriatic Arthritis 07/04/2025 11:30 AM EST Office Visit Neurology [address] [place] [address] Fide Boucher DO [address] [place] [address] 3 month f/u documented as of this encounter Visit Diagnoses Not on filedocumented in this encounter Care Teams Recreation Counselor Relationship Specialty Start Date End Date Camila Rodriguez MD [address] [facility] [place] [address] PCP - General 10/13/09 12/28/12 Adebayo Reddy MD [address] [place] [address] PCP - General Family Medicine 12/29/12 08/15/14 Ed Alfredo DO [address] [facility] [address] [place] [address] PCP - General Family Medicine 08/16/14 08/31/19 Darrius Orr MD [address] [place] [address] PCP - General Internal Medicine 09/01/19 Darrius Orr MD [address] [place] [address] Referring Internal Medicine 11/16/24 documented as of this encounter
--- OUTSIDE RECORDS SUMMARY | 2025-04-18 22:56 | XMS_ITS | Encounter Summary ---
Author Organization [facility] Address [facility] [place] [address] Care Team Providers Care Director Of Primary Name Role Phone Ed Alfredo DO Primary Care Provider [phone] Darrius Orr MD Primary Care Provider [phone] Darrius Orr MD Unavailable [phone] Source Comments In the event this information is protected by the Federal Confidentiality of Alcohol and Drug AbusePatient Records regulations: The Federal rules restrict any use of the information to criminally investigate or prosecute any alcohol or drug abuse patient.[facility] Encounter Details Date Type Department Care Team (Late st Contact Info) Description 01/31/2015 Patient Msg Medical Records [address] [place] [address] Provider, Ccf T[employer] Social History Tobacco Use [...] Description 05/06/2025 1:00 PM EDT Office Visit [facility] [address] [place] [address] Caitlin Estrada MD [address] [place] [address] New patient eval 05/16/2025 10:00 AM EDT Office Visit Rheumatology [address] [place] [address] Priscilla Mckee MD [address] [place] [address] Psoriatic Arthritis 07/04/2025 11:30 AM EST Office Visit Neurology [address] [place] [address] Fide Boucher DO [address] [place] [address] 3 month f/u documented as of this encounter Visit Diagnoses Not on filedocumented in this encounter Care Teams Director Of Primary Relationship Specialty Start Date End Date Ed Alfredo DO PCP - General Family Medicine 08/16/14 08/31/19 Darrius Orr MD [address] [place] [address] PCP - General Internal Medicine 09/01/19 Darrius Orr MD [address] [place] [address] Referring Internal Medicine 11/16/24 documented as of this encounter
--- OUTSIDE RECORDS SUMMARY | 2025-04-18 22:56 | XMS_ITS | Encounter Summary ---
Author Organization [facility] Address [address] [place] [address] Care Team Providers Care Industrial Specialist Name Role Phone Ed Alfredo DO Primary Care Provider [phone] Darrius Orr MD Primary Care Provider [phone] Darrius Orr MD Unavailable [phone] Source Comments In the event this information is protected by the Federal Confidentiality of Alcohol and Drug AbusePatient Records regulations: The Federal rules restrict any use of the information to criminally investigate or prosecute any alcohol or drug abuse patient.[facility] Encounter Details Date Type Department Care Team (Late st Contact Info) Description 12/29/2015 Patient Msg Orthopaedics [address] [place] [address] Vicente Bosch V, DPM [address] [place], [place] [id number] RE: Appointment Cancellation Request Social History Tobacco [...] Visit [facility] [address] [place] [address] Caitlin Estrada MD [address] [place] [address] New patient caroline 05/16/2025 10:00 AM EDT Office Visit Rheumatology [address] [place] [address] Priscilla Mckee MD [address] [place] [address] Psoriatic Arthritis 07/04/2025 11:30 AM EST Office Visit Neurology [address] [place] [address] Fide Boucher DO [address] [facility] [place] [address] 3 month f/u documented as of this encounter Visit Diagnoses Not on filedocumented in this encounter Care Teams Industrial Specialist Relationship Specialty Start Date End Date Ed Alfredo DO PCP - General Family Medicine 08/16/14 08/31/19 Darrius Orr MD [address] [place] [address] PCP - General Internal Medicine 09/01/19 Darrius Orr MD [address] [place] [address] Referring Internal Medicine 11/16/24 documented as of this encounter
--- OUTSIDE RECORDS SUMMARY | 2025-04-18 22:56 | XMS_ITS | Encounter Summary ---
Author Organization [facility] Address [address] [place] [address] Care Team Providers Care Legislative Advocate Name Role Phone Ed Alfredo DO Primary Care Provider [phone] Darrius Orr MD Primary Care Provider [phone] Darrius Orr MD Unavailable [phone] Source Comments In the event this information is protected by the Federal Confidentiality of Alcohol and Drug AbusePatient Records regulations: The Federal rules restrict any use of the information to criminally investigate or prosecute any alcohol or drug abuse patient.[facility] Encounter Details Date Type Department Care Team (Late st Contact Info) Description 01/08/2016 Patient [facility] [address] [address] Gabi Tamez PA-C [address] [place], [place] [id number] RE: Request an Appointment Social History Tobacco [...] EDT Office Visit [facility] [address] [place] [address] Caitlin Estrada MD [address] [place] [address] New patient caroline 05/16/2025 10:00 AM EDT Office Visit Rheumatology 57[address] [place] [address] Priscilla Mckee MD [address] [place] [address] Psoriatic Arthritis 07/04/2025 11:30 AM EST Office Visit Neurology [address] [place] [address] Fide Boucher DO [address] [facility] [place] [address] 3 month f/u documented as of this encounter Visit Diagnoses Not on filedocumented in this encounter Care Teams Legislative Advocate Relationship Specialty Start Date End Date Ed Alfredo DO PCP - General Family Medicine 08/16/14 08/31/19 Darrius Orr MD [address] [place] [address] PCP - General Internal Medicine 09/01/19 Darrius Orr MD [address] [place] [address] Referring Internal Medicine 11/16/24 documented as of this encounter
--- OUTSIDE RECORDS SUMMARY | 2025-04-18 22:56 | XMS_ITS | Encounter Summary ---
Author Organization [facility] Address [address] [place] [address] Care Team Providers Care Surgery Aide Name Role Phone Camila Rodriguez MD Primary Care Provider [phone] Adebayo Reddy MD Primary Care Provider [phone] Ed Alfredo DO Primary Care Provider [phone] Darrius Orr MD Primary Care Provider [phone] Darrius Orr MD Unavailable [phone] Source Comments In the event this information is protected by the Federal Confidentiality of Alcohol and Drug AbusePatient Records regulations: The Federal rules restrict any use of the information to criminally investigate or prosecute any alcohol or drug abuse patient.[facility] Encounter Details Date Type Department Care Team (Late st Contact Info) Description 02/05/2011 Patient Msg Medical Records [address] [place] [address] Provider, Ccf RE: Request an Appointment Social [...] Office Visit [facility] [address] [facility] [place] [address] Caitlin Estrada MD [address] [place] [address] New patient eveduin 05/16/2025 10:00 AM EDT Office Visit Rheumatology [address] [facility] [place] [address] Priscilla Mckee MD [address] [facility] [place] [address] Psoriatic Arthritis 07/04/2025 11:30 AM EST Office Visit Neurology [address] [place] [address] Fide Boucher DO [address] [place] [address] 3 month f/u documented as of this encounter Visit Diagnoses Not on filedocumented in this encounter Care Teams Surgery Aide Relationship Specialty [place] [address] [place] [address] [place] [address] PCP - General 10/13/09 12/28/12 Adebayo Reddy MD [address] [facility] [address] [place] [address] PCP - General Family Medicine 12/29/12 08/15/14 Ed Alfredo DO [address] [facility] [address] [place] [address] PCP - General Family Medicine 08/16/14 08/31/19 Darrius Orr MD [address] [place] [address] PCP - General Internal Medicine 09/01/19 Darrius Orr MD [address] [place] [address] Referring Internal Medicine 11/16/24 documented as of this encounter
--- OUTSIDE RECORDS SUMMARY | 2025-04-18 22:56 | XMS_ITS | Encounter Summary ---
Author Organization [facility] Address [address] [place] [address] Care Team Providers Care Laundry Machine Mechanic Name Role Phone Adebayo Reddy MD Primary Care Provider [phone] Ed Alfredo DO Primary Care Provider [phone] Darrius Orr MD Primary Care Provider [phone] Darrius Orr MD Unavailable [phone] Source Comments In the event this information is protected by the Federal Confidentiality of Alcohol and Drug AbusePatient Records regulations: The Federal rules restrict any use of the information to criminally investigate or prosecute any alcohol or drug abuse patient.[facility] Encounter Details Date Type Department Care Team (Late st Contact Info) Description 07/31/2014 Patient Msg Medical Records [address] [place] [address] Provider, Ccf RE: Request an Appointment Social [...] Description 05/06/2025 1:00 PM EDT Office Visit [facility] [address] [facility] [place] [address] Caitlin Estrada MD [address] [place] [address] New patient eval 05/16/2025 10:00 AM EDT Office Visit Rheumatology [address] [facility] [place] [id number] Priscilla Mckee MD [address] [place] [address] Psoriatic Arthritis 07/04/2025 11:30 AM EST Office Visit Neurology [address] [place] [address] Fide Boucher DO [address] [place] [address] 3 month f/u documented as of this encounter Visit Diagnoses Not on filedocumented in this encounter Care Teams Laundry Machine Mechanic Relationship Specialty Start Date End Date Adebayo Reddy MD [address] [place] [address] PCP - General Family Medicine 12/29/12 08/15/14 Ed Alfredo DO [address] [place] [address] PCP - General Family Medicine 08/16/14 08/31/19 Darrius Orr MD [address] [place] [address] PCP - General Internal Medicine 09/01/19 Darrius Orr MD [address] [place] [address] Referring Internal Medicine 11/16/24 documented as of this encounter
--- OUTSIDE RECORDS SUMMARY | 2025-04-18 22:56 | XMS_ITS | Encounter Summary ---
Author Organization [facility] Address [address] [place] [address] Care Team Providers Care Corrections Caseworker Name Role Phone Camila Rodriguez MD Primary Care Provider [phone] Adebayo Reddy MD Primary Care Provider [phone] Ed Alfredo DO Primary Care Provider [phone] Darrius Orr MD Primary Care Provider [phone] Darrius Orr MD Unavailable [phone] Source Comments In the event this information is protected by the Federal Confidentiality of Alcohol and Drug AbusePatient Records regulations: The Federal rules restrict any use of the information to criminally investigate or prosecute any alcohol or drug abuse patient.[facility] Encounter Details Date Type Department Care Team (Late st Contact Info) Description 11/10/2009 Patient Msg Medical Records [address] [place] [address] Provider, Ccf RE: Request an Appointment Social [...] 1:00 PM EDT Office Visit [facility] [address] [facility] [place] [address] Caitlin Estrada MD [address] [place] [address] New patient caroline 05/16/2025 10:00 AM EDT Office Visit Rheumatology [address] [facility] [place] [address] Priscilla Mckee MD [address] [facility] [place] [address] Psoriatic Arthritis 07/04/2025 11:30 AM EST Office Visit Neurology [address] [place] [address] Fide Boucher DO [address] [place] [address] 3 month f/u documented as of this encounter Visit Diagnoses Not on filedocumented in this encounter Care Teams Corrections Caseworker Relationship Specialty Start Date End Date Camila Rodriguez MD [address] [facility] [place] [address] PCP - General 10/13/09 12/28/12 Adebayo Reddy MD [id number] [place] [address] PCP - General Family Medicine 12/29/12 08/15/14 Ed Alfredo DO [address] [facility] [address] [place] [address] PCP - General Family Medicine 08/16/14 08/31/19 Darrius Orr MD [address] [place] [address] PCP - General Internal Medicine 09/01/19 Darrius Orr MD [address] [place] [address] Referring Internal Medicine 11/16/24 documented as of this encounter
--- OUTSIDE RECORDS SUMMARY | 2025-04-18 22:56 | XMS_ITS | Encounter Summary ---
Author Organization [facility] Address [address] [place] [address] Care Team Providers Care Piano Mechanic Name Role Phone Ed Alfredo DO Primary Care Provider [phone] Darrius Orr MD Primary Care Provider [phone] Darrius Orr MD Unavailable [phone] Source Comments In the event this information is protected by the Federal Confidentiality of Alcohol and Drug AbusePatient Records regulations: The Federal rules restrict any use of the information to criminally investigate or prosecute any alcohol or drug abuse patient.[facility] Encounter Details Date Type Department Care Team (Late st Contact Info) Description 12/29/2015 Patient Msg Orthopaedics [address] [facility] [place] [address] Vicente Bosch V, DPM [address] [place], [place] [address] RE: Appointment Cancellation Request Social History Tobacco [...] Description 05/06/2025 1:00 PM EDT Office Visit [facility] [address] [place] [address] Caitlin Estrada MD [address] [place] [address] New patient caroline 05/16/2025 10:00 AM EDT Office Visit Rheumatology [address] [place] [address] Priscilla Mckee MD [address] [place] [address] Psoriatic Arthritis 07/04/2025 11:30 AM EST Office Visit Neurology [address] [place] [address] Fide Boucher DO [address] [facility] [place] [address] 3 month f/u documented as of this encounter Visit Diagnoses Not on filedocumented in this encounter Care Teams Piano Mechanic Relationship Specialty Start Date End Date Ed Alfredo DO PCP - General Family Medicine 08/16/14 08/31/19 Darrius Orr MD [address] [place] [address] PCP - General Internal Medicine 09/01/19 Darrius Orr MD [address] [place] [address] Referring Internal Medicine 11/16/24 documented as of this encounter
--- OUTSIDE RECORDS SUMMARY | 2025-04-18 22:56 | XMS_ITS | Encounter Summary ---
Author Organization [facility] Address [address] [place] [address] Care Team Providers Care Lean Engineer Name Role Phone Ed Alfredo DO Primary Care Provider [phone] Darrius Orr MD Primary Care Provider [phone] Darrius Orr MD Unavailable [phone] Source Comments In the event this information is protected by the Federal Confidentiality of Alcohol and Drug AbusePatient Records regulations: The Federal rules restrict any use of the information to criminally investigate or prosecute any alcohol or drug abuse patient.[facility] Encounter Details Date Type Department Care Team (Late st Contact Info) Description 10/21/2015 Patient [facility] [address] [address] Gabi Tamez PA-C [address] [place], [place] [id number] RE: Appointment Cancellation Request Social History Tobacco [...] Description 05/06/2025 1:00 PM EDT Office Visit [facility] [address] [place] [address] Caitlin Estrada MD [address] [place] [address] New patient caroline 05/16/2025 10:00 AM EDT Office Visit Rheumatology [address] [place] [address] Priscilla Mckee MD [address] [place] [address] Psoriatic Arthritis 07/04/2025 11:30 AM EST Office Visit Neurology [address] [place] [address] Fide Boucher DO [address] [facility] [place] [address] 3 month f/u documented as of this encounter Visit Diagnoses Not on filedocumented in this encounter Care Teams Lean Engineer Relationship Specialty Start Date End Date Ed Alfredo DO PCP - General Family Medicine 08/16/14 08/31/19 Darrius Orr MD [address] [place] [address] PCP - General Internal Medicine 09/01/19 Darrius Orr MD [address] [place] [address] Referring Internal Medicine 11/16/24 documented as of this encounter
--- OUTSIDE RECORDS SUMMARY | 2025-04-18 22:56 | XMS_ITS | Encounter Summary ---
Author Organization [facility] Address [address] [place] [address] Care Team Providers Care Pigment Weigher Name Role Phone Camila Rodriguez MD Primary Care Provider [phone] Adebayo Reddy MD Primary Care Provider [phone] Ed Alfredo DO Primary Care Provider [phone] Darrius Orr MD Primary Care Provider [phone] Darrius Orr MD Unavailable [phone] Source Comments In the event this information is protected by the Federal Confidentiality of Alcohol and Drug AbusePatient Records regulations: The Federal rules restrict any use of the information to criminally investigate or prosecute any alcohol or drug abuse patient.[facility] Encounter Details Date Type Department Care Team (Late st Contact Info) Description 07/14/2010 Patient Msg Medical Records [address] [place] [address] Provider, Ccf RE: Appointment Cancellation Request Social [...] Office Visit [facility] [address] [facility] [place] [address] Caitlin Estrada MD [address] [place] [address] New patient eval 05/16/2025 10:00 AM EDT Office Visit Rheumatology [address] [facility] [place] [address] Priscilla Mckee MD [address] [facility] [place] [address] Psoriatic Arthritis 07/04/2025 11:30 AM EST Office Visit Neurology [address] [facility] [place] [address] Fide Boucher DO [address] [place] [address] 3 month f/u documented as of this encounter Visit Diagnoses Not on filedocumented in this encounter Care Teams Pigment Weigher Relationship Specialty [place] [address] [place] [address] [place] [address] PCP - General 10/13/09 12/28/12 Aedbayo Reddy MD [address] [place] [address] PCP - General Family Medicine 12/29/12 08/15/14 Ed Alfredo DO [address] [facility] [address] [place] [address] PCP - General Family Medicine 08/16/14 08/31/19 Darrius Orr MD [address] [place] [address] PCP - General Internal Medicine 09/01/19 Darrius Orr MD [address] [place] [address] Referring Internal Medicine 11/16/24 documented as of this encounter
--- OUTSIDE RECORDS SUMMARY | 2025-04-18 22:56 | XMS_ITS | Encounter Summary ---
Author Organization [facility] Address [address] [place] [address] Care Team Providers Care Statue Maker Name Role Phone Camila Rodriguez MD Primary Care Provider [phone] Adebayo Reddy MD Primary Care Provider [phone] Ed Alfredo DO Primary Care Provider [phone] Darrius Orr MD Primary Care Provider [phone] Darrius Orr MD Unavailable [phone] Source Comments In the event this information is protected by the Federal Confidentiality of Alcohol and Drug AbusePatient Records regulations: The Federal rules restrict any use of the information to criminally investigate or prosecute any alcohol or drug abuse patient.[facility] Encounter Details Date Type Department Care Team (Late st Contact Info) Description 05/01/2010 Patient Msg Medical Records [address] [place] [address] Provider, Ccf RE: Appointment Cancellation Request Social [...] PM EDT Office Visit [facility] [address] [facility] [place] [address] Caitlin Estrada MD [address] [place] [address] New patient eval 05/16/2025 10:00 AM EDT Office Visit Rheumatology [address] [facility] [place] [address] Priscilla Mckee MD [address] [facility] [place] [address] Psoriatic Arthritis 07/04/2025 11:30 AM EST Office Visit Neurology [address] [facility] [place] [address] Fide Boucher DO [address] [place] [address] 3 month f/u documented as of this encounter Visit Diagnoses Not on filedocumented in this encounter Care Teams Statue Maker Relationship Specialty [place] [address] [place] [address] [place] [address] PCP - General 10/13/09 12/28/12 Adebayo Reddy MD [address] [place] [address] PCP - General Family Medicine 12/29/12 08/15/14 Ed Alfredo DO [address] [facility] [address] [place] [address] PCP - General Family Medicine 08/16/14 08/31/19 Darrius Orr MD [address] [place] [address] PCP - General Internal Medicine 09/01/19 Darrius Orr MD [address] [place] [address] Referring Internal Medicine 11/16/24 documented as of this encounter
--- OUTSIDE RECORDS SUMMARY | 2025-04-18 22:56 | XMS_ITS | Encounter Summary ---
Author Organization [facility] Address [address] [place] [address] Care Team Providers Care Confectionery Drops Machine Operator Name Role Phone Camila Rodriguez MD Primary Care Provider [phone] Adebayo Reddy MD Primary Care Provider [phone] Ed Alfredo DO Primary Care Provider [phone] Darrius Orr MD Primary Care Provider [phone] Darrius Orr MD Unavailable [phone] Source Comments In the event this information is protected by the Federal Confidentiality of Alcohol and Drug AbusePatient Records regulations: The Federal rules restrict any use of the information to criminally investigate or prosecute any alcohol or drug abuse patient.[facility] Encounter Details Date Type Department Care Team (Late st Contact Info) Description 04/25/2010 Patient Msg Medical Records [address] [place] [address] Provider, Ccf Request an Appointment Social History [...] 1:00 PM EDT Office Visit [facility] [address] [facility] [place] [address] Caitlin Estrada MD [address] [place] [address] New patient caroline 05/16/2025 10:00 AM EDT Office Visit Rheumatology [address] [facility] [place] [address] Priscilla Mckee MD [address] [facility] [place] [address] Psoriatic Arthritis 07/04/2025 11:30 AM EST Office Visit Neurology [address] [place] [address] Fide Boucher DO [address] [place] [address] 3 month f/u documented as of this encounter Visit Diagnoses Not on filedocumented in this encounter Care Teams Confectionery Drops Machine Operator Relationship Specialty Start Date End Date Camila Rodriguez MD [address] [facility] [place] [address] PCP - General 10/13/09 12/28/12 Adebayo Reddy MD [address] [place] [address] PCP - General Family Medicine 12/29/12 08/15/14 Ed Alfredo DO [address] [facility] [address] [place] [address] PCP - General Family Medicine 08/16/14 08/31/19 Darrius Orr MD [address] [place] [address] PCP - General Internal Medicine 09/01/19 Darrius Orr MD [address] [place] [address] Referring Internal Medicine 11/16/24 documented as of this encounter
--- OUTSIDE RECORDS SUMMARY | 2025-04-18 22:56 | XMS_ITS | Encounter Summary ---
Author Organization [facility] Address [address] [place] [address] Care Team Providers Care Fiber Heel Piece Shaper Name Role Phone Ed Alfredo DO Primary Care Provider [phone] Darrius Orr MD Primary Care Provider [phone] Darrius Orr MD Unavailable [phone] Source Comments In the event this information is protected by the Federal Confidentiality of Alcohol and Drug AbusePatient Records regulations: The Federal rules restrict any use of the information to criminally investigate or prosecute any alcohol or drug abuse patient.[facility] Encounter Details Date Type Department Care Team (Late st Contact Info) Description 09/13/2016 Patient [facility] [address] [address] Gabi Tamez PA-C [address] [place], [place] [id number] RE: Appointment Cancellation Request Social History Tobacco [...] [facility] [address] [place] [address] Caitlin Estrada MD [address] [place] [address] New patient caroline 05/16/2025 10:00 AM EDT Office Visit Rheumatology [address] [place] [address] Priscilla Mckee MD [address] [place] [address] Psoriatic Arthritis 07/04/2025 11:30 AM EST Office Visit Neurology [address] [place] [address] Fide Boucher DO [address] [facility] [place] [address] 3 month f/u documented as of this encounter Visit Diagnoses Not on filedocumented in this encounter Care Teams Fiber Heel Piece Shaper Relationship Specialty Start Date End Date Ed Alfredo DO PCP - General Family Medicine 08/16/14 08/31/19 Darrius Orr MD [address] [place] [address] PCP - General Internal Medicine 09/01/19 Darrius Orr MD [address] [place] [address] Referring Internal Medicine 11/16/24 documented as of this encounter
--- OUTSIDE RECORDS SUMMARY | 2025-04-18 22:56 | XMS_ITS | Encounter Summary ---
Author Organization [facility] Address [facility] [place] [address] Care Team Providers Care Tobacco Sample Puller Name Role Phone Ed Alfredo DO Primary Care Provider [phone] Darrius Orr MD Primary Care Provider [phone] Darrius Orr MD Unavailable [phone] Source Comments In the event this information is protected by the Federal Confidentiality of Alcohol and Drug AbusePatient Records regulations: The Federal rules restrict any use of the information to criminally investigate or prosecute any alcohol or drug abuse patient.[facility] Encounter Details Date Type Department Care Team (Late st Contact Info) Description 08/23/2014 Patient Msg Medical Records [address] [place] [address] Provider, Ccf RE:JCV results Social History Tobacco [...] 05/06/2025 1:00 PM EDT Office Visit [facility] [address] [place] [address] Caitlin Estrada MD [address] [place] [address] New patient eval 05/16/2025 10:00 AM EDT Office Visit Rheumatology [address] [place] [address] Priscilla Mckee MD [address] [place] [address] Psoriatic Arthritis 07/04/2025 11:30 AM EST Office Visit Neurology [address] [place] [address] Fide Boucher DO [address] [place] [address] 3 month f/u documented as of this encounter Visit Diagnoses Not on filedocumented in this encounter Care Teams Tobacco Sample Puller Relationship Specialty Start Date End Date Ed Alfredo DO PCP - General Family Medicine 08/16/14 08/31/19 Darrius Orr MD [address] [place] [address] PCP - General Internal Medicine 09/01/19 Darrius Orr MD [address] [place] [address] Referring Internal Medicine 11/16/24 documented as of this encounter
--- OUTSIDE RECORDS SUMMARY | 2025-04-18 22:56 | XMS_ITS | Encounter Summary ---
Author Organization [facility] Address [facility] [place] [address] Care Team Providers Care Component Engineer Name Role Phone Ed Alfredo DO Primary Care Provider [phone] Darrius Orr MD Primary Care Provider [phone] Darrius Orr MD Unavailable [phone] Source Comments In the event this information is protected by the Federal Confidentiality of Alcohol and Drug AbusePatient Records regulations: The Federal rules restrict any use of the information to criminally investigate or prosecute any alcohol or drug abuse patient.[facility] Encounter Details Date Type Department Care Team (Late st Contact Info) Description 09/15/2014 Patient Msg Medical Records [address] [place] [address] Provider, Ccf Tysariccii Paperwork Social History Tobacco Use Types Packs/Day [...] Description 05/06/2025 1:00 PM EDT Office Visit [facility] [address] [place] [address] Caitlin Estrada MD [address] [place] [address] New patient eval 05/16/2025 10:00 AM EDT Office Visit Rheumatology [address] [place] [address] Priscilla Mckee MD [address] [place] [address] Psoriatic Arthritis 07/04/2025 11:30 AM EST Office Visit Neurology [address] [place] [address] Fide Boucher DO [address] [place] [address] 3 month f/u documented as of this encounter Visit Diagnoses Not on filedocumented in this encounter Care Teams Component Engineer Relationship Specialty Start Date End Date Ed Alfredo DO PCP - General Family Medicine 08/16/14 08/31/19 Darrius Orr MD [address] [place] [address] PCP - General Internal Medicine 09/01/19 Darrius Orr MD [address] [place] [address] Referring Internal Medicine 11/16/24 documented as of this encounter
--- OUTSIDE RECORDS SUMMARY | 2025-04-18 22:56 | XMS_ITS | Encounter Summary ---
Author Organization [facility] Address [address] [place] [address] Care Team Providers Care Monorail Car Operator Name Role Phone Camila Rodriguez MD Primary Care Provider [phone] Adebayo Reddy MD Primary Care Provider [phone] Ed Alfredo DO Primary Care Provider + [phone] Darrius Orr MD Primary Care Provider +[phone] Darrius Orr MD Unavailable [phone] Source Comments In the event this information is protected by the Federal Confidentiality of Alcohol and Drug AbusePatient Records regulations: The Federal rules restrict any use of the information to criminally investigate or prosecute any alcohol or drug abuse patient.[facility] Encounter Details Date Type Department Care Team (Late st Contact Info) Description 10/01/2010 Patient Msg Medical Records [address] [place] [address] Provider, Ccf RE: Request an Appointment Social [...] Office Visit [facility] [address] [facility] [place] [address] Caitlin Estrada MD [address] [place] [address] New patient eveduin 05/16/2025 10:00 AM EDT Office Visit Rheumatology 57[address] [facility] [place] [address] Priscilla Mckee MD [address] [facility] [place] [address] Psoriatic Arthritis 07/04/2025 11:30 AM EST Office Visit Neurology [address] [place] [address] Fide Boucher DO [address] [place] [address] 3 month f/u documented as of this encounter Visit Diagnoses Not on filedocumented in this encounter Care Teams Monorail Car Operator Relationship Specialty Start Date End Date Camila Rodriguez MD [address] [facility] [place] [address] PCP - General 10/13/09 12/28/12 Adebayo Reddy MD [address] [place] [address] PCP - General Family Medicine 12/29/12 08/15/14 Ed Alfredo DO [address] [facility] [address] [place] [address] PCP - General Family Medicine 08/16/14 08/31/19 Darrius Orr MD [address] [place] [address] PCP - General Internal Medicine 09/01/19 Darrius Orr MD [address] [place] [address] Referring Internal Medicine 11/16/24 documented as of this encounter
--- OUTSIDE RECORDS SUMMARY | 2025-04-18 22:56 | XMS_ITS | Encounter Summary ---
Author Organization [facility] Address [facility] [place] [address] Care Team Providers Care Manager Treasury Name Role Phone Ed Alfredo DO Primary Care Provider [phone] Darrius Orr MD Primary Care Provider [phone] Darrius Orr MD Unavailable [phone] Source Comments In the event this information is protected by the Federal Confidentiality of Alcohol and Drug AbusePatient Records regulations: The Federal rules restrict any use of the information to criminally investigate or prosecute any alcohol or drug abuse patient.[facility] Encounter Details Date Type Department Care Team ([facility] st Contact Info) Description 10/20/2015 Patient Msg Medical Records [address] [place] [address] Provider, Ccf MRI Social History Tobacco Use [...] Entry Date Author No 02/15/2015 10:31 AM MARCELOT Mckay Neumann MA documented in this encounter Plan of Treatment Upcoming Encounters Date Type Department Care Team (Late st Contact Info) Description 05/06/2025 1:00 PM EDT Office Visit [facility] [address] [place] [address] Caitlin Estrada MD [address] [address] New patient eval 05/16/2025 10:00 AM EDT Office Visit Rheumatology [address] [place] [address] Priscilla Mckee MD [address] [place] [address] Psoriatic Arthritis 07/04/2025 11:30 AM EST Office Visit Neurology [address] [place] [address] Fide Boucher DO [address] [place] [address] 3 month f/u documented as of this encounter Visit Diagnoses Not on filedocumented in this encounter Care Teams Manager Treasury Relationship Specialty Start Date End Date Ed Alfredo DO PCP - General Family Medicine 08/16/14 08/31/19 Darrius Orr MD [address] [place] [address] PCP - General Internal Medicine 09/01/19 Darrius Orr MD [address] [place] [address] Referring Internal Medicine 11/16/24 documented as of this encounter
--- OUTSIDE RECORDS SUMMARY | 2025-04-18 22:56 | XMS_ITS | Encounter Summary ---
Author Organization [facility] Address [address] [place] [address] Care Team Providers Care Phytopathologist Name Role Phone Camila Rodriguez MD Primary Care Provider [phone] Adebayo Reddy MD Primary Care Provider [phone] Ed Alfredo DO Primary Care Provider + [phone] Darrius Orr MD Primary Care Provider [phone] Darrius Orr MD Unavailable [phone] Source Comments In the event this information is protected by the Federal Confidentiality of Alcohol and Drug AbusePatient Records regulations: The Federal rules restrict any use of the information to criminally investigate or prosecute any alcohol or drug abuse patient.[facility] Encounter Details Date Type Department Care Team (Late st Contact Info) Description 11/20/2009 Patient Msg Medical Records [address] [place] [address] Provider, Ccf RE: Appointment Cancellation Request Social [...] Description 05/06/2025 1:00 PM EDT Office Visit [facility] [address] [facility] [place] [address] Caitlin Estrada MD [address] [place] [address] New patient eval 05/16/2025 10:00 AM EDT Office Visit Rheumatology [address] [facility] [place] [address] Priscilla Mckee MD [address] [facility] [place] [address] Psoriatic Arthritis 07/04/2025 11:30 AM EST Office Visit Neurology [address] [place] [address] Fide Boucher DO [address] [place] [address] 3 month f/u documented as of this encounter Visit Diagnoses Not on filedocumented in this encounter Care Teams Phytopathologist Relationship Specialty Start Date End Date Camila Rodriguez MD [address] [facility] [place] [address] PCP - General 10/13/09 12/28/12 Adebayo Reddy MD [address] [place] [address] PCP - General Family Medicine 12/29/12 08/15/14 Ed Alfredo DO [address] [facility] [address] [place] [address] PCP - General Family Medicine 08/16/14 08/31/19 Darrius Orr MD [address] [place] [address] PCP - General Internal Medicine 09/01/19 Darrius Orr MD [address] [place] [address] Referring Internal Medicine 11/16/24 documented as of this encounter
--- OUTSIDE RECORDS SUMMARY | 2025-04-18 22:56 | XMS_ITS | Encounter Summary ---
Author Organization [facility] Address [address] [place] [address] Care Team Providers Care Senior Boiler Operator Name Role Phone Camila Rodriguez MD Primary Care Provider [phone] Adebayo Reddy MD Primary Care Provider [phone] Ed Alfredo DO Primary Care Provider + [phone] Darrius Orr MD Primary Care Provider [phone] aDrrius Orr MD Unavailable [phone] Source Comments In the event this information is protected by the Federal Confidentiality of Alcohol and Drug AbusePatient Records regulations: The Federal rules restrict any use of the information to criminally investigate or prosecute any alcohol or drug abuse patient.[facility] Encounter Details Date Type Department Care Team (Late st Contact Info) Description 04/11/2011 Patient Msg Medical Records [address] [place] [address] Provider, Ccf Request an Appointment Social History [...] Office Visit [facility] [address] [facility] [place] [place] [address] Caitlin Estrada MD [address] [place] [address] New patient eval 05/16/2025 10:00 AM EDT Office Visit Rheumatology [address] [facility] [place] [address] Priscilla Mckee MD [address] [facility] [place] [place] [address] Psoriatic Arthritis 07/04/2025 11:30 AM EST Office Visit Neurology [address] [place] [address] Fide Boucher DO [address] [place] [address] 3 month f/u documented as of this encounter Visit Diagnoses Not on filedocumented in this encounter Care Teams Senior Boiler Operator Relationship Specialty Start Date End Date Camila Rodriguez MD [address] [place] [address] [place] [address] PCP - General 10/13/09 12/28/12 Adebayo Reddy MD [address] [facility] [address] [place] [address] PCP - General Family Medicine 12/29/12 08/15/14 [place] [address] [place] [address] [address] [place] [address] PCP - General Family Medicine 08/16/14 08/31/19 Darrius Orr MD [address] [place] [address] PCP - General Internal Medicine 09/01/19 Darrius Orr MD [address] [place] [address] Referring Internal Medicine 11/16/24 documented as of this encounter
--- OUTSIDE RECORDS SUMMARY | 2025-04-18 22:56 | XMS_ITS | Encounter Summary ---
Author Organization [facility] Address [address] [place] [address] Care Team Providers Care Commercial Leasing Manager Name Role Phone Camila Rodriguez MD Primary Care Provider [phone] Lizeth Tillman MD Primary Care Provider [phone] Adebayo Reddy MD Primary Care Provider [phone] Ed Alfredo DO Primary Care Provider + [phone] Darrius Orr MD Primary Care Provider [phone] Darrius Orr MD Unavailable [phone] Source Comments In the event this information is protected by the Federal Confidentiality of Alcohol and Drug AbusePatient Records regulations: The Federal rules restrict any use of the information to criminally investigate or prosecute any alcohol or drug abuse patient.[facility] Encounter Details Date Type Department Care Team (Late st Contact Info) Description 10/10/2009 Patient Msg Medical Records [address] [place] [address] Provider, Ccf RE: Request an Appointment Social [...] [facility] [address] [facility] [place] [address] Caitlin Estrada MD [address] [place] [address] New patient eval 05/16/2025 10:00 AM EDT Office Visit Rheumatology [address] [facility] [place] [place] [address] Priscilla Mckee MD [address] [facility] [place] [address] Psoriatic Arthritis 07/04/2025 11:30 AM EST Office Visit Neurology [address] [place] [address] Fide Boucher DO [address] [place] [address] 3 month f/u documented as of this encounter Visit Diagnoses Not on filedocumented in this encounter Care Teams Commercial Leasing Manager Relationship Specialty [place] [address] [place] [address] [place] [address] PCP - General 10/13/09 12/28/12 Lizeth Tillman MD [address] [place] [address] [place] [address] PCP - General 08/16/09 10/12/09 Adebayo Reddy MD [address] [facility] [address] [place] [address] PCP - General Family Medicine 12/29/12 08/15/14 Ed Alfredo DO [address] [place] [address] PCP - General Family Medicine 08/16/14 08/31/19 Darrius Orr MD [address] [place] [address] PCP - General Internal Medicine 09/01/19 Darrius Orr MD [address] [place] [address] Referring Internal Medicine 11/16/24 documented as of this encounter
--- OUTSIDE RECORDS SUMMARY | 2025-04-18 22:56 | XMS_ITS | Encounter Summary ---
Author Organization [facility] Address [address] [place] [address] Care Team Providers Care Strip Roller Name Role Phone Ed Alfredo DO Primary Care Provider [phone] Darrius Orr MD Primary Care Provider [phone] Darrius Orr MD Unavailable [phone] Source Comments In the event this information is protected by the Federal Confidentiality of Alcohol and Drug AbusePatient Records regulations: The Federal rules restrict any use of the information to criminally investigate or prosecute any alcohol or drug abuse patient.[facility] Encounter Details Date Type Department Care Team (Late st Contact Info) Description 02/09/2016 [facility] [id number] [place] [address] [place] [id number] RE: Medication Question (Not Renewal) Social [...] EDT Office Visit [facility] [address] [facility] [address] [facility] [place] [address] Caitlin Estrada MD [address] [place] [address] New patient eval 05/16/2025 10:00 AM EDT Office Visit Rheumatology [address] [facility] [place] [address] Priscilla Mckee MD [address] [facility] [address] [facility] [place] [address] Psoriatic Arthritis 07/04/2025 11:30 AM EST Office Visit Neurology [address] [place] [address] Fide Boucher DO [address] [place] [address] 3 month f/u documented as of this encounter Visit Diagnoses Not on filedocumented in this encounter Care Teams Strip Roller Relationship Specialty Start Date End Date Ed Alfredo DO PCP - General Family Medicine 08/16/14 08/31/19 Darrius Orr MD [address] [place] [address] PCP - General Internal Medicine 09/01/19 Darrius Orr MD [address] [place] [address] Referring Internal Medicine 11/16/24 documented as of this encounter
--- OUTSIDE RECORDS SUMMARY | 2025-04-18 22:56 | XMS_ITS | Encounter Summary ---
Author Organization [facility] Address [address] [place] [address] Care Team Providers Care Fuel Attendant Name Role Phone Camila Rodriguez MD Primary Care Provider [phone] Adebayo Reddy MD Primary Care Provider [phone] Ed Alfredo DO Primary Care Provider + [phone] Darrius Orr MD Primary Care Provider [phone] Darrius Orr MD Unavailable [phone] Source Comments In the event this information is protected by the Federal Confidentiality of Alcohol and Drug AbusePatient Records regulations: The Federal rules restrict any use of the information to criminally investigate or prosecute any alcohol or drug abuse patient.[facility] Encounter Details Date Type Department Care Team (Late st Contact Info) Description 01/28/2011 Patient Msg Medical Records [address] [place] [address] Provider, Ccf RE: Appointment Cancellation Request Social [...] Description 05/06/2025 1:00 PM EDT Office Visit [facility] [address] [facility] [address] Caitlin Estrada MD [address] [place] [address] New patient eveduin 05/16/2025 10:00 AM EDT Office Visit Rheumatology 5700 [facility] [place] [address] Priscilla Mckee MD [address] [facility] [place] [address] Psoriatic Arthritis 07/04/2025 11:30 AM EST Office Visit Neurology [address] [place] [address] Fide Boucher DO [address] [place] [address] 3 month f/u documented as of this encounter Visit Diagnoses Not on filedocumented in this encounter Care Teams Fuel Attendant Relationship Specialty [place] [address] [place] [address] [place] [address] PCP - General 10/13/09 12/28/12 Adebayo Reddy MD [address] [facility] [address] [place] [address] PCP - General Family Medicine 12/29/12 08/15/14 Ed Alfredo DO [address] [facility] [address] [place] [address] PCP - General Family Medicine 08/16/14 08/31/19 Darrius Orr MD [address] [place] [address] PCP - General Internal Medicine 09/01/19 Darrius Orr MD [address] [place] [address] Referring Internal Medicine 11/16/24 documented as of this encounter
--- OUTSIDE RECORDS SUMMARY | 2025-04-18 22:56 | XMS_ITS | Encounter Summary ---
Author Organization [facility] Address [address] [place] [address] Care Team Providers Care Softball Winder Name Role Phone Camila Rodriguez MD Primary Care Provider [phone] Adebayo Reddy MD Primary Care Provider [phone] Ed Alfredo DO Primary Care Provider + [phone] Darrius Orr MD Primary Care Provider [phone] Darrius Orr MD Unavailable [phone] Source Comments In the event this information is protected by the Federal Confidentiality of Alcohol and Drug AbusePatient Records regulations: The Federal rules restrict any use of the information to criminally investigate or prosecute any alcohol or drug abuse patient.[facility] Encounter Details Date Type Department Care Team (Late st Contact Info) Description 04/18/2011 Patient Msg Medical Records [address] [place] [address] Provider, Ccf RE: Request an Appointment Social [...] Visit [facility] [address] [facility] [place] [address] Caitlin Estrada MD [address] [place] [address] New patient eveduin 05/16/2025 10:00 AM EDT Office Visit Rheumatology [address] [facility] [place] [address] Priscilla Mckee MD [address] [facility] [place] [address] Psoriatic Arthritis 07/04/2025 11:30 AM EST Office Visit Neurology [address] [place] [address] Fide Boucher DO [address] [place] [address] 3 month f/u documented as of this encounter Visit Diagnoses Not on filedocumented in this encounter Care Teams Softball Winder Relationship Specialty [place] [address] [place] [address] [place] [address] PCP - General 10/13/09 12/28/12 Adebayo Reddy MD [address] [facility] [address] [place] [address] PCP - General Family Medicine 12/29/12 08/15/14 Ed Alfredo DO [address] [facility] [address] [place] [address] PCP - General Family Medicine 08/16/14 08/31/19 Darrius Orr MD [address] [place] [address] PCP - General Internal Medicine 09/01/19 Darrius Orr MD [address] [place] [address] Referring Internal Medicine 11/16/24 documented as of this encounter
--- OUTSIDE RECORDS SUMMARY | 2025-04-18 22:56 | XMS_ITS | Encounter Summary ---
Author Organization [facility] Address [address] [place] [address] Care Team Providers Care Marketing Technologist Name Role Phone Camila Rodriguez MD Primary Care Provider [phone] Adebayo Reddy MD Primary Care Provider [phone] Ed Alfredo DO Primary Care Provider [phone] Darrius Orr MD Primary Care Provider [phone] Darrius Orr MD Unavailable [phone] Source Comments In the event this information is protected by the Federal Confidentiality of Alcohol and Drug AbusePatient Records regulations: The Federal rules restrict any use of the information to criminally investigate or prosecute any alcohol or drug abuse patient.[facility] Encounter Details Date Type Department Care Team (Late st Contact Info) Description 04/26/2010 Patient Msg Medical Records [address] [place] [address] Provider, Ccf appt. with Yood Social History [...] PM EDT Office Visit [facility] [address] [facility] [place] [address] Caitlin Estrada MD [address] [place] [address] New patient eval 05/16/2025 10:00 AM EDT Office Visit Rheumatology [address] [facility] [place] [address] Priscilla Mckee MD [address] [facility] [place] [place] [address] Psoriatic Arthritis 07/04/2025 11:30 AM EST Office Visit Neurology [address] [place] [address] Fide Boucher DO [address] [place] [address] 3 month f/u documented as of this encounter Visit Diagnoses Not on filedocumented in this encounter Care Teams Marketing Technologist Relationship Specialty [place] [address] [place] [address] [place] [address] PCP - General 10/13/09 12/28/12 Adebayo Reddy MD [address] [place] [address] PCP - General Family Medicine 12/29/12 08/15/14 Ed Alfredo DO [address] [facility] [address] [place] [address] PCP - General Family Medicine 08/16/14 08/31/19 Darrius Orr MD [address] [place] [address] PCP - General Internal Medicine 09/01/19 Darrius Orr MD [address] [place] [address] Referring Internal Medicine 11/16/24 documented as of this encounter
--- OUTSIDE RECORDS SUMMARY | 2025-04-18 22:56 | XMS_ITS | Encounter Summary ---
Author Organization [facility] Address [address] [place] [address] Care Team Providers Care Crossband Layer Name Role Phone Adebayo Reddy MD Primary Care Provider [phone] Ed Alfredo DO Primary Care Provider [phone] Darrius Orr MD Primary Care Provider [phone] Darrius Orr MD Unavailable Source Comments In the event this information is protected by the Federal Confidentiality of Alcohol and Drug AbusePatient Records regulations: The Federal rules restrict any use of the information to criminally investigate or prosecute any alcohol or drug abuse patient.[facility] Encounter Details Date Type Department Care Team (Late st Contact Info) Description 07/30/2014 Patient Msg Medical Records [address] [place] [address] Provider, Ccf RE:Ramiro Social History Tobacco Use [...] Office Visit [facility] [address] [facility] [place] [place] [address] Caitlin Estrada MD [address] [place] [address] New patient eval 05/16/2025 10:00 AM EDT Office Visit Rheumatology [address] [facility] [address] Priscilla Mckee MD [address] [place] [address] Psoriatic Arthritis 07/04/2025 11:30 AM EST Office Visit Neurology [address] [place] [address] Fide Boucher DO [address] [place] [address] 3 month f/u documented as of this encounter Visit Diagnoses Not on filedocumented in this encounter Care Teams Crossband Layer Relationship Specialty Start Date End Date Adebayo Reddy MD [address] [place] [address] PCP - General Family Medicine 12/29/12 08/15/14 Ed Alfredo DO [address] [place] [address] PCP - General Family Medicine 08/16/14 08/31/19 Darrius Orr MD [address] [place] [address] PCP - General Internal Medicine 09/01/19 Darrius Orr MD [address] [place] [address] Referring Internal Medicine 11/16/24 documented as of this encounter
--- OUTSIDE RECORDS SUMMARY | 2025-04-18 22:56 | XMS_ITS | Encounter Summary ---
Author Organization [facility] Address [facility] [place] [address] Care Team Providers Care Marketing Admin Name Role Phone Ed Alfredo DO Primary Care Provider [phone] Darrius Orr MD Primary Care Provider [phone] Darrius Orr MD Unavailable [phone] Source Comments In the event this information is protected by the Federal Confidentiality of Alcohol and Drug AbusePatient Records regulations: The Federal rules restrict any use of the information to criminally investigate or prosecute any alcohol or drug abuse patient.[facility] Encounter Details Date Type Department Care Team (Late st Contact Info) Description 01/25/2015 Patient Msg Medical Records [address] [place] [address] Provider, Ccf Vitamin D Social History Tobacco [...] 05/06/2025 1:00 PM EDT Office Visit [facility] [address] [place] [address] Caitlin Estrada MD [address] [place] [address] New patient eval 05/16/2025 10:00 AM EDT Office Visit Rheumatology [address] [place] [address] Priscilla Mckee MD [address] [place] [address] Psoriatic Arthritis 07/04/2025 11:30 AM EST Office Visit Neurology [address] [place] [address] Fide Boucher DO [address] [place] [address] 3 month f/u documented as of this encounter Visit Diagnoses Not on filedocumented in this encounter Care Teams Marketing Admin Relationship Specialty Start Date End Date Ed Alfredo DO PCP - General Family Medicine 08/16/14 08/31/19 Darrius Orr MD [address] [place] [address] PCP - General Internal Medicine 09/01/19 Darrius Orr MD [address] [place] [address] Referring Internal Medicine 11/16/24 documented as of this encounter
--- OUTSIDE RECORDS SUMMARY | 2025-04-18 22:56 | XMS_ITS | Encounter Summary ---
Author Organization [facility] Address [address] [place] [address] Care Team Providers Care Wearing Apparel Shaker Name Role Phone Camila Rodriguez MD Primary Care Provider [phone] Adebayo Reddy MD Primary Care Provider [phone] Ed Alfredo DO Primary Care Provider [phone] Darrius Orr MD Primary Care Provider [phone] Darrius Orr MD Unavailable [phone] Source Comments In the event this information is protected by the Federal Confidentiality of Alcohol and Drug AbusePatient Records regulations: The Federal rules restrict any use of the information to criminally investigate or prosecute any alcohol or drug abuse patient.[facility] Encounter Details Date Type Department Care Team (Late st Contact Info) Description 04/23/2010 Patient Msg Medical Records [address] [place] [address] Provider, Ccf RE: Appointment Cancellation Request Social [...] 05/06/2025 1:00 PM EDT Office Visit [facility] [address] [place] [address] Caitlin Estrada MD [address] [place] [address] New patient eval 05/16/2025 10:00 AM EDT Office Visit Rheumatology [address] [facility] [place] [address] Priscilla Mckee MD [address] [facility] [place] [address] Psoriatic Arthritis 07/04/2025 11:30 AM EST Office Visit Neurology [address] [facility] [place] [address] Fide Boucher DO [address] [place] [address] 3 month f/u documented as of this encounter Visit Diagnoses Not on filedocumented in this encounter Care Teams Wearing Apparel Shaker Relationship Specialty [place] [address] [place] [address] [place] [address] PCP - General 10/13/09 12/28/12 Adebayo Reddy MD [address] [place] [address] PCP - General Family Medicine 12/29/12 08/15/14 Ed Alfredo DO [address] [facility] [address] [place] [address] PCP - General Family Medicine 08/16/14 08/31/19 Darrius Orr MD [address] [place] [address] PCP - General Internal Medicine 09/01/19 Darrius Orr MD [address] [place] [address] Referring Internal Medicine 11/16/24 documented as of this encounter
--- OUTSIDE RECORDS SUMMARY | 2025-04-18 22:56 | XMS_ITS | Encounter Summary ---
Author Organization [facility] Address [address] [place] [address] Care Team Providers Care Automobile Damage Appraiser Name Role Phone Darrius Orr MD Primary Care Provider [phone] Darrius Orr MD Unavailable [phone] Source Comments In the event this information is protected by the Federal Confidentiality of Alcohol and Drug AbusePatient Records regulations: The Federal rules restrict any use of the information to criminally investigate or prosecute any alcohol or drug abuse patient.[facility] Encounter Details Date Type Department Care Team (Late st Contact Info) Description 06/07/2020 Patient Msg Orthopaedics [address] [place] [address] Naif Yates PA-C [address] [place] [address] GEL INJECTION Social History Tobacco Use Types [...] EDT Office Visit [facility] [address] [place] [id number] Caitlin Estrada MD [address] [place] [address] New patient eval 05/16/2025 10:00 AM EDT Office Visit Rheumatology [address] [place] [address] Priscilla Mckee MD [address] [place] [address] Psoriatic Arthritis 07/04/2025 11:30 AM EST Office Visit Neurology [address] [place] [address] Fide Boucher DO [address] [place] [address] 3 month f/u documented as of this encounter Visit Diagnoses Not on filedocumented in this encounter Care Teams Automobile Damage Appraiser Relationship Specialty Start Date End Date Darrius Orr MD [address] [address] PCP - General Internal Medicine 09/01/19 Darrius Orr MD [address] [place] [address] Referring Internal Medicine 11/16/24 documented as of this encounter
--- OUTSIDE RECORDS SUMMARY | 2025-04-18 22:56 | XMS_ITS | Encounter Summary ---
Author Organization [facility] Address [address] [place] [address] Care Team Providers Care Custom Van Converter Name Role Phone Darrius Orr MD Primary Care Provider [phone] Darrius Orr MD Unavailable [phone] Source Comments In the event this information is protected by the Federal Confidentiality of Alcohol and Drug AbusePatient Records regulations: The Federal rules restrict any use of the information to criminally investigate or prosecute any alcohol or drug abuse patient.[facility] Encounter Details Date Type Department Care Team (Late st Contact Info) Description 10/26/2019 Patient Msg Urology [address] [place] [address] Boo Gongora MD [address] [place] [address] Appointment Cancellation Request Social History Tobacco Use [...] Description 05/06/2025 1:00 PM EDT Office Visit [facility] [address] [place] [address] Caitlin Estrada MD [address] [place] [address] New patient eval 05/16/2025 10:00 AM EDT Office Visit Rheumatology [address] [place] [address] Priscilla Mckee MD [address] [place] [address] Psoriatic Arthritis 07/04/2025 11:30 AM EST Office Visit Neurology [address] [place] [address] Fide Boucher DO [address] [place] [address] 3 month f/u documented as of this encounter Visit Diagnoses Not on filedocumented in this encounter Care Teams Custom Van Converter Relationship Specialty Start Date End Date Darrius Orr MD [address] [address] PCP - General Internal Medicine 09/01/19 Darrius Orr MD [address] [place] [address] Referring Internal Medicine 11/16/24 documented as of this encounter
--- OUTSIDE RECORDS SUMMARY | 2025-04-18 22:56 | XMS_ITS | Encounter Summary ---
Author Organization [facility] Address [address] [place] [address] Care Team Providers Care Homeowner Association Manager Name Role Phone Camila Rodriguez MD Primary Care Provider [phone] Adebayo Reddy MD Primary Care Provider [phone] Ed Alfredo DO Primary Care Provider [phone] Darrius Orr MD Primary Care Provider [phone] Darrius Orr MD Unavailable [phone] Source Comments In the event this information is protected by the Federal Confidentiality of Alcohol and Drug AbusePatient Records regulations: The Federal rules restrict any use of the information to criminally investigate or prosecute any alcohol or drug abuse patient.[facility] Encounter Details Date Type Department Care Team (Late st Contact Info) Description 11/29/2009 Patient Msg Medical Records [address] [place] [address] Provider, Ccf Appointment Cancellation Request Social History [...] EDT Office Visit [facility] [address] [facility] [place] [address] Caitlin Estrada MD [address] [place] [address] New patient caroline 05/16/2025 10:00 AM EDT Office Visit Rheumatology 57[address] [facility] [place] [address] Priscilla Mckee MD [address] [facility] [address] [facility] [place] [place] [address] Psoriatic Arthritis 07/04/2025 11:30 AM EST Office Visit Neurology [address] [place] [address] Fide Boucher DO [address] [place] [address] 3 month f/u documented as of this encounter Visit Diagnoses Not on filedocumented in this encounter Care Teams Homeowner Association Manager Relationship Specialty Start Date End Date Camila Rodriguez MD [address] [facility] [place] [address] PCP - General 10/13/09 12/28/12 Adebayo Reddy MD [address] [place] [address] PCP - General Family Medicine 12/29/12 08/15/14 Ed Alfredo DO [address] [facility] [address] [place] [address] PCP - General Family Medicine 08/16/14 08/31/19 Darrius Orr MD [address] [place] [address] PCP - General Internal Medicine 09/01/19 Darrius Orr MD [address] [place] [address] Referring Internal Medicine 11/16/24 documented as of this encounter
--- OUTSIDE RECORDS SUMMARY | 2025-04-18 22:56 | XMS_ITS | Encounter Summary ---
Author Organization [facility] Address [address] [place] [address] Care Team Providers Care Supervisor Grain And Yeast Plants Name Role Phone Camila Rodriguez MD Primary Care Provider [phone] Adebayo Reddy MD Primary Care Provider [phone] Ed Alfredo DO Primary Care Provider [phone] Darrius Orr MD Primary Care Provider [phone] Darrius Orr MD Unavailable [phone] Source Comments In the event this information is protected by the Federal Confidentiality of Alcohol and Drug AbusePatient Records regulations: The Federal rules restrict any use of the information to criminally investigate or prosecute any alcohol or drug abuse patient.[facility] Encounter Details Date Type Department Care Team (Late st Contact Info) Description 11/03/2009 Patient Msg Medical Records [address] [place] [address] Provider, Ccf RE: Request an Appointment Social [...] PM EDT Office Visit [facility] [address] [facility] [address] Caitlin Estrada MD [address] [place] [address] New patient caroline 05/16/2025 10:00 AM EDT Office Visit Rheumatology [address] [facility] [place] [address] Priscilla Mckee MD [address] [facility] [place] [place] [address] Psoriatic Arthritis 07/04/2025 11:30 AM EST Office Visit Neurology [address] [place] [address] Fide Boucher DO [address] [place] [address] 3 month f/u documented as of this encounter Visit Diagnoses Not on filedocumented in this encounter Care Teams Supervisor Grain And Yeast Plants Relationship Specialty Start Date End Date Camila Rodriguez MD [address] [facility] [place] [address] PCP - General 10/13/09 12/28/12 Adebayo Reddy MD [address] [place] [address] PCP - General Family Medicine 12/29/12 08/15/14 Ed Alfredo DO [address] [facility] [address] [place] [address] PCP - General Family Medicine 08/16/14 08/31/19 Darrius Orr MD [address] [place] [address] PCP - General Internal Medicine 09/01/19 Darrius Orr MD [address] [place] [address] Referring Internal Medicine 11/16/24 documented as of this encounter
--- OUTSIDE RECORDS SUMMARY | 2025-04-18 22:56 | XMS_ITS | Encounter Summary ---
Author Organization [facility] Address [address] [place] [address] Care Team Providers Care Day Care Center Director Name Role Phone Camila Rodriguez MD Primary Care Provider [phone] Adebayo Reddy MD Primary Care Provider [phone] Ed Alfredo DO Primary Care Provider [phone] Darrius Orr MD Primary Care Provider [phone] Darrius Orr MD Unavailable [phone] Source Comments In the event this information is protected by the Federal Confidentiality of Alcohol and Drug AbusePatient Records regulations: The Federal rules restrict any use of the information to criminally investigate or prosecute any alcohol or drug abuse patient.[facility] Encounter Details Date Type Department Care Team (Late st Contact Info) Description 04/25/2011 Patient Msg Medical Records [address] [place] [address] Provider, Ccf Request an Appointment Social History [...] Visit [facility] [address] [facility] [place] [address] Caitlin Estrada MD [address] [place] [address] New patient eval 05/16/2025 10:00 AM EDT Office Visit Rheumatology [address] [facility] [place] [address] Priscilla Mckee MD [address] [facility] [place] [address] Psoriatic Arthritis 07/04/2025 11:30 AM EST Office Visit Neurology [address] [place] [address] Fide Boucher DO [address] [place] [address] 3 month f/u documented as of this encounter Visit Diagnoses Not on filedocumented in this encounter Care Teams Day Care Center Director Relationship Specialty Start Date End Date Camila Rodriguez MD [address] [place] [address] [place] [address] PCP - General 10/13/09 12/28/12 Adebayo Reddy MD [address] [facility] [address] [place] [address] PCP - General Family Medicine 12/29/12 08/15/14 [place] [address] [place] [address] [address] [place] [address] PCP - General Family Medicine 08/16/14 08/31/19 Darrius Orr MD [address] [place] [address] PCP - General Internal Medicine 09/01/19 Darrius Orr MD [address] [place] [address] Referring Internal Medicine 11/16/24 documented as of this encounter
--- OUTSIDE RECORDS SUMMARY | 2025-04-18 22:56 | XMS_ITS | Encounter Summary ---
Author Organization [facility] Address [address] [place] [address] Care Team Providers Care Wellfield Technician Name Role Phone Camila Rodriguez MD Primary Care Provider [phone] Adebayo Reddy MD Primary Care Provider [phone] Ed Alfredo DO Primary Care Provider [phone] Darrius Orr MD Primary Care Provider [phone] Darrius Orr MD Unavailable [phone] Source Comments In the event this information is protected by the Federal Confidentiality of Alcohol and Drug AbusePatient Records regulations: The Federal rules restrict any use of the information to criminally investigate or prosecute any alcohol or drug abuse patient.[facility] Encounter Details Date Type Department Care Team (Late st Contact Info) Description 01/15/2010 Patient Msg Medical Records [address] [place] [address] Provider, Ccf RE: Request an Appointment Social [...] Description 05/06/2025 1:00 PM EDT Office Visit [facility] [address] [facility] [place] [address] Caitlin Estrada MD [address] [place] [address] New patient eveduin 05/16/2025 10:00 AM EDT Office Visit Rheumatology 57[address] [facility] [place] [address] Priscilla Mckee MD [address] [facility] [place] [address] Psoriatic Arthritis 07/04/2025 11:30 AM EST Office Visit Neurology [address] [place] [address] Fide Boucher DO [address] [place] [address] 3 month f/u documented as of this encounter Visit Diagnoses Not on filedocumented in this encounter Care Teams Wellfield Technician Relationship Specialty Start Date End Date Camila Rodriguez MD [address] [facility] [place] [address] PCP - General 10/13/09 12/28/12 Adebayo Reddy MD [address] [place] [address] PCP - General Family Medicine 12/29/12 08/15/14 Ed Alfredo DO [address] [facility] [address] [place] [address] PCP - General Family Medicine 08/16/14 08/31/19 Darrius Orr MD [address] [place] [address] PCP - General Internal Medicine 09/01/19 Darrius Orr MD [address] [place] [address] Referring Internal Medicine 11/16/24 documented as of this encounter
--- OUTSIDE RECORDS SUMMARY | 2025-04-18 22:56 | XMS_ITS | Encounter Summary ---
Author Organization [facility] Address [address] [place] [address] Care Team Providers Care Highway Commissioner Name Role Phone Ed Alfredo DO Primary Care Provider [phone] Darrius Orr MD Primary Care Provider [phone] Darrius Orr MD Unavailable [phone] Source Comments In the event this information is protected by the Federal Confidentiality of Alcohol and Drug AbusePatient Records regulations: The Federal rules restrict any use of the information to criminally investigate or prosecute any alcohol or drug abuse patient.[facility] Encounter Details Date Type Department Care Team ([facility] st Contact Info) Description 08/21/2015 Patient Msg Orthopaedics [address] [facility] [facility] [place] [address] Vicente Bosch V, DPM [address] [place], [place] [id number] RE: Request an Appointment Social History Tobacco [...] Office Visit [facility] [address] [place] [address] Caitlin Estrada MD [address] [place] [address] New patient caroline 05/16/2025 10:00 AM EDT Office Visit Rheumatology [address] [place] [address] Priscilla Mckee MD [address] [place] [address] Psoriatic Arthritis 07/04/2025 11:30 AM EST Office Visit Neurology [address] [place] [address] Fide Boucher DO [address] [place] [address] 3 month f/u documented as of this encounter Visit Diagnoses Not on filedocumented in this encounter Care Teams Highway Commissioner Relationship Specialty Start Date End Date Ed Alfredo DO PCP - General Family Medicine 08/16/14 08/31/19 Darrius Orr MD [address] [place] [address] PCP - General Internal Medicine 09/01/19 Darrius Orr MD [address] [place] [address] Referring Internal Medicine 11/16/24 documented as of this encounter
--- OUTSIDE RECORDS SUMMARY | 2025-04-18 22:56 | XMS_ITS | Encounter Summary ---
Author Organization [facility] Address [address] [place] [address] Care Team Providers Care Dope Dry House Operator Name Role Phone Darrius Orr MD Primary Care Provider [phone] Darrius Orr MD Unavailable [phone] Source Comments In the event this information is protected by the Federal Confidentiality of Alcohol and Drug AbusePatient Records regulations: The Federal rules restrict any use of the information to criminally investigate or prosecute any alcohol or drug abuse patient.[facility] Encounter Details Date Type Department Care Team (Late st Contact Info) Description 04/17/2020 Radiology Radiology [address] [place] [address] Basilia Anderson, RT(R) Social History Tobacco Use [...] EDT Office Visit [facility] [address] [facility] [place] [address] Caitlin Estrada MD [address] [place] [address] New patient eval 05/16/2025 10:00 AM EDT Office Visit Rheumatology [address] [place] [address] Priscilla Mckee MD [address] [place] [address] Psoriatic Arthritis 07/04/2025 11:30 AM EST Office Visit Neurology [address] [place] [address] Fide Boucher DO [address] [place] [address] 3 month f/u documented as of this encounter Visit Diagnoses Not on filedocumented in this encounter Care Teams Dope Dry House Operator Relationship Specialty Start Date End Date Darrius Orr MD [address] [place] [address] PCP - General Internal Medicine 09/01/19 Darrius Orr MD [address] [place] [address] Referring Internal Medicine 11/16/24 documented as of this encounter
--- OUTSIDE RECORDS SUMMARY | 2025-04-18 22:56 | XMS_ITS | Encounter Summary ---
Author Organization [facility] Address [address] [place] [address] Care Team Providers Care Advertising Operations Coordinator Name Role Phone Camila Rodriguez MD Primary Care Provider [phone] Adebayo Reddy MD Primary Care Provider [phone] Ed Alfredo DO Primary Care Provider + [phone] Darrius Orr MD Primary Care Provider [phone] Darrius Orr MD Unavailable [phone] Source Comments In the event this information is protected by the Federal Confidentiality of Alcohol and Drug AbusePatient Records regulations: The Federal rules restrict any use of the information to criminally investigate or prosecute any alcohol or drug abuse patient.[facility] Encounter Details Date Type Department Care Team (Late st Contact Info) Description 11/20/2009 Patient Msg Medical Records [address] [place] [address] Provider, Ccf Appointment Cancellation Request Social History [...] EDT Office Visit [facility] [address] [facility] [place] [address] Caitlin Estrada MD [address] [place] [address] New patient caroline 05/16/2025 10:00 AM EDT Office Visit Rheumatology [address] [facility] [place] [address] Priscilla Mckee MD [address] [facility] [address] [facility] [place] [address] Psoriatic Arthritis 07/04/2025 11:30 AM EST Office Visit Neurology [address] [place] [address] Fide Boucher DO [address] [place] [address] 3 month f/u documented as of this encounter Visit Diagnoses Not on filedocumented in this encounter Care Teams Advertising Operations Coordinator Relationship Specialty Start Date End Date Camila Rodriguez MD [address] [facility] [place] [address] PCP - General 10/13/09 12/28/12 Adebayo Reddy MD [address] [place] [address] PCP - General Family Medicine 12/29/12 08/15/14 Ed Alfredo DO [address] [facility] [address] [place] [address] PCP - General Family Medicine 08/16/14 08/31/19 Darrius Orr MD [address] [place] [address] PCP - General Internal Medicine 09/01/19 Darrius Orr MD [address] [place] [address] Referring Internal Medicine 11/16/24 documented as of this encounter
--- OUTSIDE RECORDS SUMMARY | 2025-04-18 22:56 | XMS_ITS | Encounter Summary ---
Author Organization [facility] Address [address] [place] [address] Care Team Providers Care Line Construction Supervisor Name Role Phone Camila Rodriguez MD Primary Care Provider [phone] Adebayo Reddy MD Primary Care Provider [phone] Ed Alfredo DO Primary Care Provider [phone] Darrius Orr MD Primary Care Provider [phone] Darrius Orr MD Unavailable [phone] Source Comments In the event this information is protected by the Federal Confidentiality of Alcohol and Drug AbusePatient Records regulations: The Federal rules restrict any use of the information to criminally investigate or prosecute any alcohol or drug abuse patient.[facility] Encounter Details Date Type Department Care Team (Late st Contact Info) Description 11/13/2009 Patient Msg Medical Records [address] [place] [address] Provider, Ccf Appointment Cancellation Request Social History [...] Description 05/06/2025 1:00 PM EDT [facility] [address] [facility] [place] [address] Caitlin Estrada MD [address] [place] [address] New patient caroline 05/16/2025 10:00 AM EDT Office Visit Rheumatology [address] [facility] [place] [address] Priscilla Mckee MD [address] [facility] [address] [facility] [address] Psoriatic Arthritis 07/04/2025 11:30 AM EST Office Visit Neurology [address] [place] [address] Fide Boucher DO [address] [place] [address] 3 month f/u documented as of this encounter Visit Diagnoses Not on filedocumented in this encounter Care Teams Line Construction Supervisor Relationship Specialty Start Date End Date Camila Rodriguez MD [address] [facility] [place] [address] PCP - General 10/13/09 12/28/12 Adebayo Reddy MD [address] [place] [address] PCP - General Family Medicine 12/29/12 08/15/14 Ed Alfredo DO [address] [facility] [address] [place] [address] PCP - General Family Medicine 08/16/14 08/31/19 Darrius Orr MD [address] [place] [address] PCP - General Internal Medicine 09/01/19 Darrius Orr MD [address] [place] [address] Referring Internal Medicine 11/16/24 documented as of this encounter
--- OUTSIDE RECORDS SUMMARY | 2025-04-18 22:56 | XMS_ITS | Encounter Summary ---
Author Organization [facility] Address [facility] [place] [address] Care Team Providers Care Store Promoter Name Role Phone Ed Alfredo DO Primary Care Provider [phone] Darrius Orr MD Primary Care Provider [phone] Darrius Orr MD Unavailable [phone] Source Comments In the event this information is protected by the Federal Confidentiality of Alcohol and Drug AbusePatient Records regulations: The Federal rules restrict any use of the information to criminally investigate or prosecute any alcohol or drug abuse patient.[facility] Encounter Details Date Type Department Care Team (Late st Contact Info) Description 04/22/2015 Patient Msg Medical Records [address] [place] [address] Provider, Ccf Appointment Cancellation Request Social History [...] Description 05/06/2025 1:00 PM EDT Office Visit [facility] [address] [place] [address] Caitlin Estrada MD [address] [place], [place] [id number] New patient eval 05/16/2025 10:00 AM EDT Office Visit Rheumatology [address] [place] [address] Priscilla Mckee MD [address] [place] [address] Psoriatic Arthritis 07/04/2025 11:30 AM EST Office Visit Neurology [address] [place] [address] Fide Boucher DO [address] [place] [address] 3 month f/u documented as of this encounter Visit Diagnoses Not on filedocumented in this encounter Care Teams Store Promoter Relationship Specialty Start Date End Date Ed Alfredo DO PCP - General Family Medicine 08/16/14 08/31/19 Darrius Orr MD [address] [place] [address] PCP - General Internal Medicine 09/01/19 Darrius Orr MD [address] [place] [address] Referring Internal Medicine 11/16/24 documented as of this encounter
--- OUTSIDE RECORDS SUMMARY | 2025-04-18 22:56 | XMS_ITS | Encounter Summary ---
Author Organization [facility] Address [address] [place] [address] Care Team Providers Care Web Engineer Name Role Phone Camila Rodriguez MD Primary Care Provider [phone] Adebayo Reddy MD Primary Care Provider [phone] Ed Alfredo DO Primary Care Provider [phone] Darrius Orr MD Primary Care Provider [phone] Darrius Orr MD Unavailable [phone] Source Comments In the event this information is protected by the Federal Confidentiality of Alcohol and Drug AbusePatient Records regulations: The Federal rules restrict any use of the information to criminally investigate or prosecute any alcohol or drug abuse patient.[facility] Encounter Details Date Type Department Care Team (Late st Contact Info) Description 06/29/2010 Patient Msg Medical Records [address] [place] [address] Provider, Ccf Request an Appointment Social History [...] Office Visit [facility] [address] [facility] [place] [address] Caitlin Estrada MD [address] [place] [address] New patient caroline 05/16/2025 10:00 AM EDT Office Visit Rheumatology [address] [facility] [place] [address] Priscilla Mckee MD [address] [facility] [place] [address] Psoriatic Arthritis 07/04/2025 11:30 AM EST Office Visit Neurology [address] [place] [address] Fide Boucher DO [address] [place] [address] 3 month f/u documented as of this encounter Visit Diagnoses Not on filedocumented in this encounter Care Teams Web Engineer Relationship Specialty Start Date End Date Camila Rodriguez MD [address] [facility] [place] [address] PCP - General 10/13/09 12/28/12 Adebayo Reddy MD [address] [place] [address] PCP - General Family Medicine 12/29/12 08/15/14 Ed Alfredo DO [address] [facility] [address] [place] [address] PCP - General Family Medicine 08/16/14 08/31/19 Darrius Orr MD [address] [place] [address] PCP - General Internal Medicine 09/01/19 Darrius Orr MD [address] [place] [address] Referring Internal Medicine 11/16/24 documented as of this encounter
--- OUTSIDE RECORDS SUMMARY | 2025-04-18 22:56 | XMS_ITS | Encounter Summary ---
Author Organization [facility] Address [address] [place] [address] Care Team Providers Care Side Door Worker Name Role Phone Ed Alfredo DO Primary Care Provider [phone] Darrius Orr MD Primary Care Provider [phone] Darrius Orr MD Unavailable [phone] Source Comments In the event this information is protected by the Federal Confidentiality of Alcohol and Drug AbusePatient Records regulations: The Federal rules restrict any use of the information to criminally investigate or prosecute any alcohol or drug abuse patient.[facility] Encounter Details Date Type Department Care Team (Late st Contact Info) Description 09/18/2015 Patient [facility] [address] [address] Gabi Tamez PA-C [address] [place], [place] [address] RE: Appointment Cancellation Request Social History Tobacco [...] EDT Office Visit [facility] [address] [place] [address] Caitlin Estrada MD [address] [place] [address] New patient caroline 05/16/2025 10:00 AM EDT Office Visit Rheumatology [address] [place] [address] Priscilla Mckee MD [address] [place] [address] Psoriatic Arthritis 07/04/2025 11:30 AM EST Office Visit Neurology [address] [place] [address] Fide Boucher DO [address] [place] [address] 3 month f/u documented as of this encounter Visit Diagnoses Not on filedocumented in this encounter Care Teams Side Door Worker Relationship Specialty Start Date End Date Ed Alfredo DO PCP - General Family Medicine 08/16/14 08/31/19 Darrius Orr MD [address] [place] [address] PCP - General Internal Medicine 09/01/19 Darrius Orr MD [address] [place] [address] Referring Internal Medicine 11/16/24 documented as of this encounter
--- OUTSIDE RECORDS SUMMARY | 2025-04-18 22:56 | XMS_ITS | Encounter Summary ---
Author Organization [facility] Address [address] [place] [address] Care Team Providers Care Associate Professor Of Kinesiology Name Role Phone Camila Rodriguez MD Primary Care Provider [phone] Adebayo Reddy MD Primary Care Provider [phone] Ed Alfredo DO Primary Care Provider [phone] Darrius Orr MD Primary Care Provider [phone] Darrius Orr MD Unavailable [phone] Source Comments In the event this information is protected by the Federal Confidentiality of Alcohol and Drug AbusePatient Records regulations: The Federal rules restrict any use of the information to criminally investigate or prosecute any alcohol or drug abuse patient.[facility] Encounter Details Date Type Department Care Team (Late st Contact Info) Description 11/20/2009 Patient Msg Medical Records [address] [place] [address] Provider, Ccf Appointment Cancellation Request Social History [...] Description 05/06/2025 1:00 PM EDT Office Visit [facility] [address] [facility] [place] [address] Caitlin Estrada MD [address] [place] [address] New patient caroline 05/16/2025 10:00 AM EDT Office Visit Rheumatology [address] [facility] [place] [address] Priscilla Mckee MD [address] [facility] [facility] [place] [address] Psoriatic Arthritis 07/04/2025 11:30 AM EST Office Visit Neurology [address] [place] [address] Fide Boucher DO [address] [place] [address] 3 month f/u documented as of this encounter Visit Diagnoses Not on filedocumented in this encounter Care Teams Associate Professor Of Kinesiology Relationship Specialty Start Date End Date Camila Rodriguez MD [address] [facility] [place] [address] PCP - General 10/13/09 12/28/12 Adebayo Reddy MD [address] [place] [address] PCP - General Family Medicine 12/29/12 08/15/14 Ed Alfredo DO [address] [facility] [address] [place] [address] PCP - General Family Medicine 08/16/14 08/31/19 Darrius Orr MD [address] [place] [address] PCP - General Internal Medicine 09/01/19 Darrius Orr MD [address] [place] [address] Referring Internal Medicine 11/16/24 documented as of this encounter
--- OUTSIDE RECORDS SUMMARY | 2025-04-18 22:57 | XMS_ITS | Encounter Summary ---
Author Organization [facility] Address [address] [facility] [place] [address] Care Team Providers Care Welfare Project Manager Name Role Phone Darrius Orr MD Unavailable [phone] Darrius Orr MD Primary Care Provider [phone] Aiden Linares DPM Unavailable [phone] Kai Gutierres DO Unavailable [phone] Encounter Details Date Type Department Care Team (Late Contact Info) Description 12/10/2022 Abstract [facility] [address] [facility] [address] [place] [address] Darrius Orr MD [address] [facility] [address] [place] [address] Social History Tobacco Use Types Packs/Day Years Used Date Smoking Tobacco: Never Assessed Sex and Gender Information Value Date Recorded Sex Assigned at Not on file Legal Sex Male 6:48 PM EDT Gender Identity Not on file Sexual Orientation Not on file documented as of this encounter Plan of Treatment Upcoming Encounters Date Type Department Care Team (Late Contact Info) Description 05/05/2025 1:15 PM EDT Office Visit [facility] [address] [place] [phone] Bina Faye MD [address] [place] [address] 06/06/2025 2:00 PM EST Office Visit [facility] [address] [place] [address] 07/18/2025 3:15 PM EST Procedure Visit [facility] [address] [place] [phone] Susie Mary DPM [address] [place] [address] documented as of this encounter Visit Diagnoses Not on filedocumented in this encounter Care Teams Welfare Project Manager Relationship Specialty Start Date End Date Darrius Orr MD [address] [place] [address] PCP - [employer] 08/04/19 Darrius Orr MD [address] [place] [address] PCP - General Internal Medicine 12/31/22 Aiden Linares DPM [address] [place] [address] Referring Physician Podiatry 10/30/23 Kai Gutierres DO [address] [facility] [address] [place] [phone] Referring Physician Neurology 02/24/24 documented as of this encounter
--- OUTSIDE RECORDS SUMMARY | 2025-04-18 22:57 | XMS_ITS | Encounter Summary ---
Author Organization [facility] Address [facility] [place] [address] Care Team Providers Care Primary Care Coordinator Name Role Phone Darrius Orr MD Primary Care Provider [phone] Darrius Orr MD Unavailable [phone] Source Comments In the event this information is protected by the Federal Confidentiality of Alcohol and Drug AbusePatient Records regulations: The Federal rules restrict any use of the information to criminally investigate or prosecute any alcohol or drug abuse patient.[facility] Encounter Details Date Type Department Care Team (Late st Contact Info) Description 12/07/2024 Patient [facility] -[address] [place] [address] Ludy Pastrana RPh At your next appointment, choose [facility]. Social History Tobacco Use Types [...] N ot on file 07/12/2020 Data from: https://www.[email or web address]/. Last address used for calculation Not on [...] EDT Office Visit [facility] [address] [place] [address] Caitlin Estrada MD [address] [place] [address] New patient caroline 05/16/2025 10:00 AM EDT Office Visit Rheumatology [address] [place] [address] Priscilla Mckee MD [address] [place] [address] Psoriatic Arthritis 07/04/2025 11:30 AM EST Office Visit Neurology [address] [place] [address] Fide Boucher DO [address] [place] [address] 3 month f/u documented as of this encounter Visit Diagnoses Not on filedocumented in this encounter Care Teams Primary Care Coordinator Relationship Specialty Start Date End Date Darrius Orr MD [address] [facility] [address] [place] [address] PCP - General Internal Medicine 09/01/19 Darrius Orr MD [address] [place] [address] Referring Internal Medicine 11/16/24 documented as of this encounter
--- OUTSIDE RECORDS SUMMARY | 2025-04-18 22:57 | XMS_ITS | Encounter Summary ---
Author Organization [facility] Address [address] [place] [address] Care Team Providers Care Webmethods Architect Name Role Phone Camila Rodriguez MD Primary Care Provider [phone] Adebayo Reddy MD Primary Care Provider [phone] Ed Alfredo DO Primary Care Provider [phone] Darrius Orr MD Primary Care Provider [phone] Darrius Orr MD Unavailable [phone] Source Comments In the event this information is protected by the Federal Confidentiality of Alcohol and Drug AbusePatient Records regulations: The Federal rules restrict any use of the information to criminally investigate or prosecute any alcohol or drug abuse patient.[facility] Encounter Details Date Type Department Care Team (Late st Contact Info) Description 08/31/2011 Patient Msg Medical Records [address] [place] [address] Provider, Ccf Appointment Cancellation Request Social History [...] PM EDT Office Visit [facility] [address] [facility] [place] [address] Caitlin Estrada MD [address] [place] [address] New patient eveduin 05/16/2025 10:00 AM EDT Office Visit Rheumatology 57[address] [facility] [place] [address] Priscilla Mckee MD [address] [facility] [place] [address] Psoriatic Arthritis 07/04/2025 11:30 AM EST Office Visit Neurology [address] [place] [address] Fide Boucher DO [address] [place] [address] 3 month f/u documented as of this encounter Visit Diagnoses Not on filedocumented in this encounter Care Teams Webmethods Architect Relationship Specialty Start Date End Date Camila Rodriguez MD [address] [place] [address] [place] [address] PCP - General 10/13/09 12/28/12 Adebayo Reddy MD [address] [facility] [address] [place] [address] PCP - General Family Medicine 12/29/12 08/15/14 Ed Alfredo DO [address] [facility] [address] [place] [address] PCP - General Family Medicine 08/16/14 08/31/19 Darrius Orr MD [address] [place] [address] PCP - General Internal Medicine 09/01/19 Darrius Orr MD [address] [place] [address] Referring Internal Medicine 11/16/24 documented as of this encounter
--- OUTSIDE RECORDS SUMMARY | 2025-04-18 22:57 | XMS_ITS | Encounter Summary ---
Author Organization [facility] Address [address] [place] [address] Care Team Providers Care Manager Installation Name Role Phone Camila Rodriguez MD Primary Care Provider [phone] Adebayo Reddy MD Primary Care Provider [phone] Ed Alfredo DO Primary Care Provider [phone] Darrius Orr MD Primary Care Provider [phone] Darrius Orr MD Unavailable [phone] Source Comments In the event this information is protected by the Federal Confidentiality of Alcohol and Drug AbusePatient Records regulations: The Federal rules restrict any use of the information to criminally investigate or prosecute any alcohol or drug abuse patient.[facility] Encounter Details Date Type Department Care Team (Late st Contact Info) Description 06/26/2011 Patient Msg Medical Records [address] [place] [address] Provider, Ccf Request an Appointment Social History [...] PM EDT Office Visit [facility] [address] [facility] [place] [address] Caitlin Estrada MD [address] [place] [address] New patient eval 05/16/2025 10:00 AM EDT Office Visit Rheumatology [address] [facility] [place] [address] Priscilla Mckee MD [address] [facility] [place] [address] Psoriatic Arthritis 07/04/2025 11:30 AM EST Office Visit Neurology [address] [place] [address] Fide Boucher DO [address] [place] [address] 3 month f/u documented as of this encounter Visit Diagnoses Not on filedocumented in this encounter Care Teams Manager Installation Relationship Specialty Start Date End Date Camila Rodriguez MD [address] [place] [address] [place] [address] PCP - General 10/13/09 12/28/12 Adebayo Reddy MD [address] [facility] [address] [place] [address] PCP - General Family Medicine 12/29/12 08/15/14 [place] [address] [place] [address] [address] [place] [address] PCP - General Family Medicine 08/16/14 08/31/19 Darrius Orr MD [address] [place] [address] PCP - General Internal Medicine 09/01/19 Darrius Orr MD [address] [place] [address] Referring Internal Medicine 11/16/24 documented as of this encounter
--- OUTSIDE RECORDS SUMMARY | 2025-04-18 22:57 | XMS_ITS | Patient Health Record ---
Author Organization [employer] Address [address] [place] [address] Care Team Providers Care Card Hand Name Role Phone Dr. Erik Arora Primary Care Provider Edelmira Jones Unavailable Lydia Dey Unavailable [phone] Lizzette Cazares Unavailable [phone] Allergies No Known Allergies Reason For Referral No Information Medications Medication SIG (Take, Route, Frequency, Duration) Notes Start Date End Date Status Ubrelvy 100 MG 1 tablet Orally as needed (prn) Unknown Cialis 20 MG 1 tablet Orally daily Unknown Irbesartan 300 MG 1 tablet Orally Once a day Unknown Lumigan 0.01 % 1 drop Ophthalmic as directed Unknown NovoLOG Unknown Tresiba FlexTouch 100 UNIT/ML . . as directed Unknown Xanax 0.25 MG 1 tablet orally twic e a day (bid) as needed (prn) Unknown hydroCHLOROthiazide 25 MG 1 tablet orally daily Unknown Vitamin B12 1000 MCG 1 tablet Orally Onc e a day Unknown Diclofenac Unknown Lyrica 25 MG 1 capsule Orally Twice a day Unknown Tecfidera 240 MG 1 capsule orally daily Unknown Vitamin D Unknown ARIPiprazole 5 MG TAKE 1 TABLET EVERY DAY; Duration: 30 Unknown Ibuprofen 800 MG 1 tablet with food o r milk as needed Orally Three times a day 04/05/2025 Active Labetalol HCl 100 MG 1 tablet orally daily Unknown Social History Tobacco Use: Social History Observation [...] down, depressed, or hopeless More than h shelter the days Trouble falling or staying asleep, [...] Problem Status W/U Status Risk Notes Problem Mixed bipolar affective disorder, moderate (244687647) Bipolar mixed affective disorder, moderate (F31.62) Active confirmed Encounters Encounter Location Date Provider Diagnosis [facility] [address] [place] [address] 04/06/2025 [facility] [address] [place] [address] 04/11/2025 [facility] [address] [place] [address] 08/24/2024 Erik Arora Cracked tooth K03.81 ; Dental caries on pit and fissure surface penetrating into dentin K02.52 ; Other dental procedure status Z98.818 and Encounter for dental examination and cleaning with abnormal findings Z01.21 [facility] [address] [place] [address] 01/28/2025 Erik Arora Dental caries on pit and fissure surface penetrating into dentin K02.52 and Cracked tooth K03.81 [facility] [address] [employer] [address] 04/08/2025 Erik Arora Cracked tooth K03.81 [facility] [address] [place] [address] 03/10/2025 Lizzette Saric Dental caries on pit and fissure surface penetrating into dentin K02.52 [facility] [address] [place] [address] 11/23/2024 Lizzette Saric Dental caries on pit and fissure surface penetrating into dentin K02.52 [place] [address] [place] [address] 01/10/2025 Edelmira Morejon Cracked tooth K03.81 ; Other dental procedure status Z98.818 and Encounter for dental examination and cleaning with abnormal findings Z01.[address] [place] [address] 02/23/2025 Erik Arora Encounter for dental examination and cleaning with abnormal findings Z01.21 and Other dental procedure status Z98.818 [facility] [address] [facility] [place] [address] 04/05/2025 Erik Arora Encounter for dental examination and cleaning with abnormal findings Z01.21 and Other dental procedure status Z98.818 Assessments Encounter Date Diagnosis (ICD Code) Assessment Notes Treatment Notes Treatment Clinical Notes Section Notes 08/24/2024 Cracked tooth (ICD-10 - K03.81) 11/23/2024 Dental caries on pit and fissure surface penetrating into dentin (ICD-10 - K02.52) 01/10/2025 Cracked tooth (ICD-10 - K03.81) 01/28/2025 Dental caries on pit and fissure surface penetrating into dentin (ICD-10 - K02.52) 02/23/2025 Encounter for dental examination and cleaning with abnormal findings (ICD-10 - Z01.21) 03/10/2025 Dental caries on pit and fissure surface penetrating into dentin (ICD-10 - K02.52) 04/05/2025 Encounter for dental examination and cleaning with abnormal findings (ICD-10 - Z01.21) 04/08/2025 Cracked tooth (ICD-10 - K03.81) 04/05/2025 Other dental procedure status (ICD-10 - Z98.818) 02/23/2025 Other dental procedure status (ICD-10 - Z98.818) 01/28/2025 Cracked tooth (ICD-10 - K03.81) 01/10/2025 Other dental procedure status (ICD-10 - Z98.818) 08/24/2024 Dental caries on pit and fissure surface penetrating into dentin (ICD-10 - K02.52) 01/10/2025 Encounter for dental examination and cleaning with abnormal findings (ICD-10 - Z01.21) 08/24/2024 Other dental procedure status (ICD-10 - Z98.818) 08/24/2024 Encounter for dental examination and cleaning with abnormal findings (ICD-10 - Z01.21) Plan Of Treatment Next Appt Details Provider Name:Lizzette Cazares, 05/12/2025 01:00:00 PM, [address] [place], [place], [address], Provider Name:Lizzette Cazares, 07/27/2025 08:35:00 AM, [address], [place], [address], Provider Name:Briseida Romero, 08/10/2025 02:30:00 PM, [address], [place], [address], Insurance Providers Payer Name Payer Address Payer Phone Subscriber Number Group Number Insured Name Patient Relationship to Insured Coverage Start Date Coverage End Date [employer] MEDICARE PLAN [address] [address] [place] [phone] [id number] CHARLENEKERLINE Self - patient is the insured 5 [employer] [place] MEDICAID SEC TO [facility] [address] [place] [id number] [id number] KERLINE CHANG Self - patient is the insured 1 DENTAL HU[employer] MEDICARE [address] [address] [place] [id number] [phone] [id number] KERLINE CHANG Self - patient is the insured 5 Medical (General) History Medical History History ICD Code glaucoma diabetes mallitus multiple sclerosis hypertension
--- OUTSIDE RECORDS SUMMARY | 2025-04-18 22:57 | XMS_ITS | Encounter Summary ---
Author Organization [facility] Address [address] [facility] [place] [address] Care Team Providers Care Painting Trades Worker Name Role Phone Darrius Orr MD Unavailable [phone] Darrius Orr MD Primary Care Provider [phone] Aiden Linares DPM Unavailable [phone] Kai Gutierres DO Unavailable [phone] Encounter Details Date Type Department Care Team (Late Contact Info) Description 01/22/2023 Abstract [facility] [address] [facility] [address] [place] [address] Darrius Orr MD [address] [facility] [address] [place] [address] Social History Tobacco Use Types Packs/Day Years Used Date Smoking Tobacco: Every Day Cigarettes 0.5 35.7 Started: 08/04/1989 Smokeless Tobacco: Never Comments:5 [...] 05/05/2025 1:15 PM EDT Office Visit [facility] [address] [place] [address] Bina Faye MD [address] [place] [address] 06/06/2025 2:00 PM EST Office Visit [facility] [place] [facility] [address] [place] [address] 07/18/2025 3:15 PM EST Procedure Visit [facility] [address] [place] [address] Susie Mary DPM [address] [place] [address] documented as of this encounter Visit Diagnoses Not on filedocumented in this encounter Care Teams Painting Trades Worker Relationship Specialty Start Date End Date Darrius Orr MD [address] [place] [address] PCP - [employer] 08/04/19 Darrius Orr MD [address] [place] [address] PCP - General Internal Medicine 12/31/22 Aiden Linares DPM [address] [place] [address] Referring Physician Podiatry 10/30/23 Kai Gutierres DO [address] [facility] [address] [place] [address] Referring Physician Neurology 02/24/24 documented as of this encounter
--- OUTSIDE RECORDS SUMMARY | 2025-04-18 22:57 | XMS_ITS | Encounter Summary ---
Author Organization [facility] Address [facility] [place] [address] Care Team Providers Care Hot Billet Shear Operator Name Role Phone Darrius Orr MD Primary Care Provider [phone] Darrius Orr MD Unavailable [phone] Source Comments In the event this information is protected by the Federal Confidentiality of Alcohol and Drug AbusePatient Records regulations: The Federal rules restrict any use of the information to criminally investigate or prosecute any alcohol or drug abuse patient.[facility] Encounter Details Date Type Department Care Team (Late st Contact Info) Description 12/07/2024 Patient [facility] -[address] [place] [address] Ludy Pastrana RPh At your next appointment, choose [facility]. Social History Tobacco Use Types Packs/Day [...] N ot on file 07/12/2020 Data from: [email or web address]/. Last address used for calculation Not [...] EDT Office Visit [facility] [address] [place] [address] Caitlin Estrada MD [address] [place] [address] New patient caroline 05/16/2025 10:00 AM EDT Office Visit Rheumatology [address] [place] [address] Priscilla Mckee MD [address] [place] [address] Psoriatic Arthritis 07/04/2025 11:30 AM EST Office Visit Neurology [address] [place] [address] Fide Boucher DO [address] [place] [address] 3 month f/u documented as of this encounter Visit Diagnoses Not on filedocumented in this encounter Care Teams Hot Billet Shear Operator Relationship Specialty Start Date End Date Darrius Orr MD [address] [facility] [address] [place] [address] PCP - General Internal Medicine 09/01/19 Darrius Orr MD [address] [place] [address] Referring Internal Medicine 11/16/24 documented as of this encounter
--- OUTSIDE RECORDS SUMMARY | 2025-04-18 22:57 | XMS_ITS | Encounter Summary ---
Author Organization [facility] Address [address] [place] [address] Care Team Providers Care Motel Front Desk Clerk Name Role Phone Camila Rodriguez MD Primary Care Provider [phone] Adebayo Reddy MD Primary Care Provider [phone] Ed Alfredo DO Primary Care Provider [phone] Darrius Orr MD Primary Care Provider [phone] Darrius Orr MD Unavailable [phone] Source Comments In the event this information is protected by the Federal Confidentiality of Alcohol and Drug AbusePatient Records regulations: The Federal rules restrict any use of the information to criminally investigate or prosecute any alcohol or drug abuse patient.[facility] Encounter Details Date Type Department Care Team (Late st Contact Info) Description 08/07/2011 Patient Msg Medical Records [address] [place] [address] Provider, Ccf RE: Appointment Cancellation Request Social [...] Description 05/06/2025 1:00 PM EDT Office Visit [facility] [address] [facility] [place] [address] Caitlin Estrada MD [address] [place] [address] New patient eveduin 05/16/2025 10:00 AM EDT Office Visit Rheumatology [address] [facility] [place] [address] Priscilla Mckee MD [address] [facility] [place] [address] Psoriatic Arthritis 07/04/2025 11:30 AM EST Office Visit Neurology [address] [place] [address] Fide Boucher DO [address] [place] [address] 3 month f/u documented as of this encounter Visit Diagnoses Not on filedocumented in this encounter Care Teams Motel Front Desk Clerk Relationship Specialty [place] [address] [place] [address] [place] [address] PCP - General 10/13/09 12/28/12 Adebayo Reddy MD [address] [facility] [address] [place] [address] PCP - General Family Medicine 12/29/12 08/15/14 Ed Alfredo DO [address] [facility] [address] [place] [address] PCP - General Family Medicine 08/16/14 08/31/19 Darrius Orr MD [address] [place] [address] PCP - General Internal Medicine 09/01/19 Darrius Orr MD [address] [place] [address] Referring Internal Medicine 11/16/24 documented as of this encounter
--- OUTSIDE RECORDS SUMMARY | 2025-04-18 22:57 | XMS_ITS | Encounter Summary ---
Author Organization [facility] Address [address] [place] [address] Care Team Providers Care Law Firm Partner Name Role Phone Darrius Orr MD Unavailable [phone] Darrius Orr MD Primary Care Provider [phone] Aiden Linares DPM Unavailable [phone] Kai Gutierres DO Unavailable [phone] Encounter Details Date Type Department Care Team (Late Contact Info) Description 04/10/2023 Orders Only [facility] [address] [facility] [address] [place] [address] Greer Worthy PA [address] [facility] [address] [place] [address] Social History Tobacco Use Types Packs/Day Years [...] 05/05/2025 1:15 PM EDT Office Visit [facility] [address] [place] [address] Bina Faye MD [address] [place] [address] 06/06/2025 2:00 PM EST Office Visit [facility] [place] [facility] [address] [place] [address] 07/18/2025 3:15 PM EST Procedure Visit [facility] [place] [facility] [address] [place] [address] Susie Mary DPM [address] [place] [address] documented as of this encounter Visit Diagnoses Not on filedocumented in this encounter Care Teams Law Firm Partner Relationship Specialty Start Date End Date Darrius Orr MD [address] [place] [address] PCP - [employer] 08/04/19 Darrius Orr MD [address] [place] [address] PCP - General Internal Medicine 12/31/22 Aiden Linares DPM [address] [place] [address] Referring Physician Podiatry 10/30/23 Kai Gutierres DO [address] [facility] [address] [address] Referring Physician Neurology 02/24/24 documented as of this encounter
--- OUTSIDE RECORDS SUMMARY | 2025-04-18 22:57 | XMS_ITS | Encounter Summary ---
Author Organization [facility] Address [address] [place] [address] Care Team Providers Care Curriculum Manager Name Role Phone Camila Rodriguez MD Primary Care Provider [phone] Lizeth Tillman MD Primary Care Provider [phone] Clinton Gonzales MD Primary Care Provider [phone] Rich Chun MD Primary Care Provider [phone] Wally Monroe MD Primary Care Provider [phone] Rich Chun MD Primary Care Provider [phone] Wally [place] MD Primary Care Provider [phone] Rich Chun MD Primary Care Provider [phone] Adebayo Reddy MD Primary Care Provider [phone] Ed Alfredo DO Primary Care Provider [phone] Darrius Orr MD Primary Care Provider [phone] Darrius Orr MD Unavailable [phone] Source Comments In the event this information is protected by the Federal Confidentiality of Alcohol and Drug AbusePatient Records regulations: The Federal rules restrict any use of the information to criminally investigate or prosecute any alcohol or drug abuse patient.[facility] Encounter Details Date Type Department Care Team (Late st Contact Info) Description 12/02/2005 Patient Msg Medical Records [address] [place] [address] Provider, Ccf Appointment Cancellation Request Social History [...] Description 05/06/2025 1:00 PM EDT Office Visit [facility] [address] [facility] [place] [address] Caitlin Estrada MD [address] [place] [address] New patient eval 05/16/2025 10:00 AM EDT Office Visit Rheumatology [address] [facility] [place] [address] Priscilla Mckee MD [address] [facility] [place] [address] Psoriatic Arthritis 07/04/2025 11:30 AM EST Office Visit Neurology [address] [place] [address] Fide Boucher DO [address] [place] [address] 3 month f/u documented as of this encounter Visit Diagnoses Not on filedocumented in this encounter Care Teams Curriculum Manager Relationship Specialty Start Date End Date Camila Rodriguez MD [address] [facility] [place] [address] PCP - General 10/13/09 12/28/12 Lizeth Tillman MD [address] [place] [address] PCP - General 08/16/09 10/12/09 Clinton Gonzales MD [address] [facility] [place] [address] PCP - General 09/02/08 08/15/09 Rich Chun MD [address] [place] [address] PCP - General 11/27/06 09/01/08 Wally [place] MD [address] [place] [address] PCP - General 10/29/06 11/26/06 Rich Chun MD [address] [place] [address] PCP - General 10/28/06 10/28/06 Wally [place] MD [address] [place] [address] PCP - General 10/15/06 10/27/06 Rich Chun MD [address] [place] [address] PCP - General 11/07/05 10/14/06 Adebayo Reddy MD [address] [place] [address] PCP - General Family Medicine 12/29/12 08/15/14 Ed Alfredo DO [address] [place] [address] PCP - General Family Medicine 08/16/14 08/31/19 Darrius Orr MD [address] [place] [address] PCP - General Internal Medicine 09/01/19 Darrius Orr MD [address] [place] [address] Referring Internal Medicine 11/16/24 documented as of this encounter
--- OUTSIDE RECORDS SUMMARY | 2025-04-18 22:57 | XMS_ITS | Encounter Summary ---
Author Organization [facility] Address [address] [facility] [place] [address] Care Team Providers Care Stone Unloader Name Role Phone Darrius Orr MD Unavailable [phone] Darrius Orr MD Primary Care Provider [phone] Aiden Linares DPM Unavailable [phone] Kai Gutierres DO Unavailable [phone] Encounter Details Date Type Department Care Team ([facility] Contact Info) Description 07/19/2023 Telephone [facility] [place] [facility] [address] [facility] [address] [place] [address] Darrius Orr MD [address] [facility] 230 [place] [address] Social History Tobacco Use Types Packs/Day Years [...] Alex Dyer 72: PCP: Adela Gross: Usha caldwell/[facility] [phone]: Critial lab of glucose @ 406. Teams to Dr. Orr. documented in this encounter Plan of Treatment Upcoming Encounters Date Type Department Care Team (Late st Contact Info) Description 05/05/2025 1:15 PM EDT Office Visit [facility] [address] [place] [address] Bina Faye MD [address] [place] [address] 06/06/2025 2:00 PM EST Office Visit [facility] [place] [facility] [address] [place] [address] 07/18/2025 3:15 PM EST Procedure Visit [facility] [place] [facility] [address] [place] [address] Susie Mary DPM [address] [place] [address] documented as of this encounter Visit Diagnoses Not on filedocumented in this encounter Care Teams Stone Unloader Relationship Specialty Start Date End Date Darrius Orr MD [address] [place] [address] PCP - [employer] 08/04/19 Darrius Orr MD [address] [place] [address] PCP - General Internal Medicine 12/31/22 Aiden Linares DPM [address] [facility] 100 [place] [address] Referring Physician Podiatry 10/30/23 Kai Gutierres DO [address] [facility] [address] [place] [address] Referring Physician Neurology 02/24/24 documented as of this encounter
--- OUTSIDE RECORDS SUMMARY | 2025-04-18 22:57 | XMS_ITS | Encounter Summary ---
Author Organization [facility] Address [address] [place] [address] Care Team Providers Care Manufacturing Engineering Intern Name Role Phone Camila Rodriguez MD Primary Care Provider [phone] Lizeth Tillman MD Primary Care Provider [phone] Clinton Gonzales MD Primary Care Provider [phone] Rich Chun MD Primary Care Provider [phone] Wally Monroe MD Primary Care Provider [phone] Rich Chun MD Primary Care Provider [phone] Wally [place] MD Primary Care Provider [phone] Rich Chun MD Primary Care Provider [phone] Adebayo Reddy MD Primary Care Provider [phone] Ed Alfredo DO Primary Care Provider [phone] Darrius Orr MD Primary Care Provider [phone] Darrius Orr MD Unavailable [phone] Source Comments In the event this information is protected by the Federal Confidentiality of Alcohol and Drug AbusePatient Records regulations: The Federal rules restrict any use of the information to criminally investigate or prosecute any alcohol or drug abuse patient.[facility] Encounter Details Date Type Department Care Team (Late st Contact Info) Description 12/02/2005 Patient Msg Medical Records [address] [place] [address] Provider, Ccf RE: Appointment Cancellation Request Social [...] 1:00 PM EDT Office Visit [facility] [address] [facility] [place] [address] Caitlin Estrada MD [address] [place] [address] New patient eveduin 05/16/2025 10:00 AM EDT Office Visit Rheumatology [address] [facility] [place] [address] Priscilla Mckee MD [address] [facility] [place] [address] Psoriatic Arthritis 07/04/2025 11:30 AM EST Office Visit Neurology [address] [place] [address] Fide Boucher DO [address] [place] [address] 3 month f/u documented as of this encounter Visit Diagnoses Not on filedocumented in this encounter Care Teams Manufacturing Engineering Intern Relationship Specialty Start Date End Date Camila Rodriguez MD [address] [facility] [place] [address] PCP - General 10/13/09 12/28/12 Lizeth Tillman MD [address] [facility] [place] [address] PCP - General 08/16/09 10/12/09 Clinton Gonzales MD [address] [facility] [place] [address] PCP - General 09/02/08 08/15/09 Rich Chun MD [address] [place] [address] PCP - General 11/27/06 09/01/08 Wally [place] MD [address] [place] [address] PCP - General 10/29/06 11/26/06 Rich Chun MD [address] [place] [address] PCP - General 10/28/06 10/28/06 Wally [place] MD [address] [place] [address] PCP - General 10/15/06 10/27/06 Rich Chun MD [address] [facility] [place] [address] PCP - General 11/07/05 10/14/06 Adebayo Reddy MD [address] [place] [address] PCP - General Family Medicine 12/29/12 08/15/14 Ed Alfredo DO [address] [place] [address] PCP - General Family Medicine 08/16/14 08/31/19 Darrius Orr MD [address] [place] [address] PCP - General Internal Medicine 09/01/19 Darrius Orr MD [address] [place] [address] Referring Internal Medicine 11/16/24 documented as of this encounter
--- OUTSIDE RECORDS SUMMARY | 2025-04-18 22:57 | XMS_ITS | Encounter Summary ---
Author Organization [facility] Address [address] [facility] [place] [address] Care Team Providers Care Natural Resources Faculty Member Name Role Phone Darrius Orr MD Unavailable [phone] Darrius Orr MD Primary Care Provider [phone] Aiden Linares DPM Unavailable [phone] Kai Gutierres DO Unavailable [phone] Encounter Details Date Type Department Care Team ([facility] Contact Info) Description 03/18/2023 Abstract [facility] [address] [facility] [address] [place] [address] Adriane Cote PA [address] [facility] [address] [place] [address] Social History Tobacco Use Types Packs/Day Years [...] PM EDT Office Visit [facility] [address] [place] [phone] Bina Faye MD [address] [place] [address] 06/06/2025 2:00 PM EST Office Visit [facility] [place] [facility] [address] [place] [phone] 07/18/2025 3:15 PM EST Procedure Visit [facility] [address] [place] [phone] Susie Mary DPM [address] [place] [address] documented as of this encounter Visit Diagnoses Not on filedocumented in this encounter Care Teams Natural Resources Faculty Member Relationship Specialty Start Date End Date Darrius Orr MD [address] [place] [address] PCP - [employer] 08/04/19 Darrius Orr MD [address] [place] [address] PCP - General Internal Medicine 12/31/22 Aiden Linares DPM [address] [place] [address] Referring Physician Podiatry 10/30/23 Kai Gutierres DO [address] [facility] [address] [place] [phone] Referring Physician Neurology 02/24/24 documented as of this encounter
--- OUTSIDE RECORDS SUMMARY | 2025-04-18 22:57 | XMS_ITS | Encounter Summary ---
Author Organization [facility] Address [address] [place] [address] Care Team Providers Care Ux Lead Name Role Phone Camila Rodriguez MD Primary Care Provider [phone] Adebayo Reddy MD Primary Care Provider [phone] Ed Alfredo DO Primary Care Provider [phone] Darrius Orr MD Primary Care Provider [phone] Darrius Orr MD Unavailable [phone] Source Comments In the event this information is protected by the Federal Confidentiality of Alcohol and Drug AbusePatient Records regulations: The Federal rules restrict any use of the information to criminally investigate or prosecute any alcohol or drug abuse patient.[facility] Encounter Details Date Type Department Care Team (Late st Contact Info) Description 06/06/2011 Patient Msg Medical Records [address] [place] [address] Provider, Ccf RE: Appointment Cancellation Request Social [...] Office Visit [facility] [address] [facility] [place] [address] Caitlin Estrada MD [address] [place] [address] New patient eveduin 05/16/2025 10:00 AM EDT Office Visit Rheumatology [address] [facility] [place] [address] Priscilla Mckee MD [address] [facility] [place] [address] Psoriatic Arthritis 07/04/2025 11:30 AM EST Office Visit Neurology [address] [place] [address] Fide Boucher DO [address] [place] [address] 3 month f/u documented as of this encounter Visit Diagnoses Not on filedocumented in this encounter Care Teams Ux Lead Relationship Specialty [place] [address] [place] [address] [place] [address] PCP - General 10/13/09 12/28/12 Adebayo Reddy MD [address] [facility] [address] [place] [address] PCP - General Family Medicine 12/29/12 08/15/14 Ed Alfredo DO [address] [facility] [address] [place] [address] PCP - General Family Medicine 08/16/14 08/31/19 Darrius Orr MD [address] [place] [address] PCP - General Internal Medicine 09/01/19 Darrius Orr MD [address] [place] [address] Referring Internal Medicine 11/16/24 documented as of this encounter
--- NOTE | 2025-04-18 23:04 | ED.GENADUL1 ---
HPI HPI - General Adult General Chief complaint: Headache Stated complaint: HEADACHE Time Seen by Provider: 04/18/25 22:56 Source: patient Mode of arrival: Wheelchair History of Present Illness HPI narrative: 54-year-old male presents for headache. He states this is his usual typical bitemporal headache that he gets from his MS. No trauma fever or stiff neck and it started at 8:00 this morning. He took Percocet and Qulipta at home but it did not help. Related Data Home Medications ?Medication ?Instructions ?Recorded ?Confirmed insulin degludec 200 unit/mL (3 100 unit subcut DAILY 05/21/23 12/28/24 mL) subcutaneous pen (Tresiba FlexTouch U-200 insulin) irbesartan 300 mg tablet 300 mg PO DAILY 05/21/23 05/21/23 rosuvastatin 10 mg tablet 10 mg PO DAILY 05/21/23 05/21/23 amitriptyline 25 mg tablet mg 12/28/24 pregabalin 300 mg capsule 300 mg PO DAILY 12/28/24 04/18/25 alprazolam 0.5 mg tablet 0.5 mg PO BID 04/18/25 04/18/25 atogepant 60 mg tablet (Qulipta) 60 mg PO DAILY 04/18/25 04/18/25 empagliflozin 10 mg tablet 10 mg PO DAILY 04/18/25 04/18/25 (Jardiance) ibuprofen 800 mg tablet 800 mg PO Q8H PRN pain 04/18/25 04/18/25 metoprolol succinate 100 mg 100 mg PO DAILY 04/18/25 04/18/25 tablet,extended release 24 hr oxycodone-acetaminophen 5 mg-325 2 tab PO Q6H PRN pain 04/18/25 04/18/25 mg tablet Allergies Allergy/AdvReac Type Severity Reaction Status Date / Time celecoxib (From Celebrex) AdvReac Diarrhea Verified 01/01/25 18:59 Opioid HPI Opioid Management Most Recent Opioid Data: Last Pain Scale 10 01/01/25, 18:59 Review of Systems ROS Narrative A ten point review of systems is negative except as noted above. PFSH PFSH Medical History (Updated 04/18/25 @ 23:06 by Rossi Tijerina) Multiple sclerosis ?G35 - Multiple sclerosis (ICD-10) Social History Smoking status: Current every day smoker Little interest or pleasure in doing things: not at all Feeling down, depressed, or hopeless: not at all Exam Narrative Exam Narrative: Nurses note and vital signs reviewed and patient is not hypoxic. General: The patient appears well and in no apparent distress. Patient is resting comfortably on cart. Skin: Warm, dry, no pallor noted. There is no rash noted. Head: Normocephalic, atraumatic; neck supple, no nuchal rigidity Eye: Normal conjunctiva, no drainage, EOMI. PERRL Ears, Nose, Mouth, and Throat: oral mucosa is moist. Nares patent. Cardiovascular: Regular Rate and Rhythm Respiratory: Patient is in no distress, no accessory muscle use, lungs are clear to auscultation, no wheezing, rales or rhonchi Back: non-tender GI: Soft obese and nontender Musculoskeletal: The patient has no evidence of calf tenderness, no pitting edema, symmetrical pulses noted bilaterally Neurological: A&O, normal speech; upper and lower extremity strength 5 out of 5 and Psychiatric: Cooperative Constitutional Vital Signs, click to edit/add: Last Vital Signs Temp 98.3 F 04/18/25 22:45 Pulse 53 L 04/18/25 22:45 Resp 18 04/18/25 22:45 BP 215/94 H 04/18/25 22:45 Pulse Ox 99 04/18/25 22:45 Course Vital Signs Vital signs: Vital Signs Temperature 98.3 F 04/18/25 22:45 Pulse Rate 53 L 04/18/25 22:45 Respiratory Rate 18 04/18/25 22:45 Blood Pressure 215/94 H 04/18/25 22:45 Pulse Oximetry 99 04/18/25 22:45 Temperature 98.3 F 04/18/25 22:45 Pulse Rate 53 L 04/18/25 22:45 Respiratory Rate 18 04/18/25 22:45 Blood Pressure 215/94 H 04/18/25 22:45 Pulse Oximetry 99 04/18/25 22:45 Medical Decision Making MDM Narrative Medical decision making narrative: He was offered an IV with IV medications and fluids but prefers to have an IM Toradol injection instead and be discharged home. He was offered to stay to check on the effects but he states it always helps so he wants to be discharged home. He was given IM Toradol, Benadryl, and ODT Zofran. Treatment diagnosis and follow-up were discussed with the patient. I have no clinical concern for acute intracranial pathology or meningitis. Differential Diagnosis Differential Diagnosis: Migraine headache, intracranial pathology, meningitis Medical Records Medical records reviewed: Yes I reviewed the patient's medical records Discharge Plan Discharge Chief Complaint: Headache Clinical Impression: Headache Patient Disposition: Home, Self-Care Time of Disposition Decision: 23:03 Condition: Good Mode of Transportation: Private Vehicle Prescriptions / Home Meds: No Action insulin degludec [Tresiba FlexTouch U-200] 200 unit/mL (3 mL) insulin pen 100 unit SUBCUT DAILY irbesartan 300 mg tablet 300 mg PO DAILY rosuvastatin 10 mg tablet 10 mg PO DAILY alprazolam 0.5 mg tablet 0.5 mg PO BID Qulipta 60 mg tablet 60 mg PO DAILY Jardiance 10 mg tablet 10 mg PO DAILY ibuprofen 800 mg tablet 800 mg PO Q8H PRN (Reason: pain) metoprolol succinate 100 mg tablet extended release 24 hr 100 mg PO DAILY oxycodone-acetaminophen 5-325 mg tablet 2 tab PO Q6H PRN (Reason: pain) amitriptyline 25 mg tablet pregabalin 300 mg capsule 300 mg PO DAILY Print Language: Indonesian Instructions: Acute Headache (ED) Referrals: NISA ROAJS [Primary Care Provider, Internal Medicine] - 1 week
[2025-04-18] MEDS: DIPHENHYDRAMINE HCL 50 MG/ML VIAL 25 MG IM (23:14)
[2025-04-18] MEDS: ONDANSETRON 4 MG RAPDIS TABLET SL (23:14)
[2025-04-18] MEDS: KETOROLAC TROMETHAMINE 60 MG/2 ML VIAL IM (23:15)
== END 2025-04-18 23:30 | disposition home or self-care (01) ==
PROVIDERS: Emergency Provider Emergency Medicine; PCP Internal Medicine
DX: R51.9 Headache, unspecified (principal); G35 Multiple sclerosis; F17.200 Nicotine dependence, unspecified, uncomplicated
CPT/HCPCS: 96372; 99284; J1200; J1885; Q0162

== ENCOUNTER 2025-04-24 18:05 | Emergency (ER) | payer MEDICARE, MEDICAID, SELFPAY ==
[2025-04-24 18:15] VITALS: BP 208/112; PULSE 72; TEMP 36.8; O2SAT 96; BMI 51.8
--- NOTE | 2025-04-24 18:36 | ED.GENADUL1 ---
HPI HPI - General Adult General Chief complaint: Neck Pain/Injury Stated complaint: Pain all over NECK PAIN Time Seen by Provider: 04/24/25 18:22 Source: patient Mode of arrival: Wheelchair History of Present Illness HPI narrative: 54-year-old male presents for pain in many of his joints. No injury. He states he has rheumatoid arthritis and MS and he believes his rheumatoid arthritis is bothering him. He has ongoing right knee pain and is supposed to see an orthopedist in a few weeks for consultation about knee replacement. He is scheduled to have a tooth removed in a few days. He is also scheduled to see a harp repairer in a few weeks. The pain is severe and continuous. Related Data Home Medications ?Medication ?Instructions ?Recorded ?Confirmed insulin degludec 200 unit/mL (3 100 unit subcut DAILY 05/21/23 04/24/25 mL) subcutaneous pen (Tresiba FlexTouch U-200 insulin) rosuvastatin 10 mg tablet 10 mg PO DAILY 05/21/23 04/24/25 amitriptyline 25 mg tablet mg 12/28/24 pregabalin 300 mg capsule 300 mg PO DAILY 12/28/24 04/24/25 alprazolam 0.5 mg tablet 0.5 mg PO BID 04/18/25 04/24/25 atogepant 60 mg tablet (Qulipta) 60 mg PO DAILY 04/18/25 04/24/25 empagliflozin 10 mg tablet 10 mg PO DAILY 04/18/25 04/24/25 (Jardiance) ibuprofen 800 mg tablet 800 mg PO Q8H PRN pain 04/18/25 04/24/25 metoprolol succinate 100 mg 100 mg PO DAILY 04/18/25 04/24/25 tablet,extended release 24 hr oxycodone-acetaminophen 5 mg-325 2 tab PO Q6H PRN pain 04/18/25 04/24/25 mg tablet Allergies Allergy/AdvReac Type Severity Reaction Status Date / Time celecoxib (From Celebrex) AdvReac Diarrhea Verified 04/24/25 18:22 Opioid HPI Opioid Management Most Recent Opioid Data: Last Pain Scale 10 Today, 18:15 Review of Systems ROS Narrative A ten point review of systems is negative except as noted above. PFSH PFSH Medical History (Updated 04/24/25 @ 18:36 by Benito Neves MD) Multiple sclerosis ?G35 - Multiple sclerosis (ICD-10) Social History Smoking status: Current every day smoker Little interest or pleasure in doing things: not at all Feeling down, depressed, or hopeless: not at all Exam Narrative Exam Narrative: Nurses note and vital signs reviewed and patient is not hypoxic. General: The patient is sitting in a wheelchair Skin: Warm, dry, no pallor noted. There is no rash noted. Head: Normocephalic, atraumatic Eye: Normal conjunctiva, no drainage Ears, Nose, Mouth, and Throat: oral mucosa is moist. Nares patent. Cardiovascular: Regular Rate and Rhythm Respiratory: Patient is in no distress, no accessory muscle use GI: Obese and nontender Musculoskeletal: No joint appears erythematous or swollen. Neurologic: Awake and alert and oriented Psychiatric: Cooperative, teary Constitutional Vital Signs, click to edit/add: Last Vital Signs Temp 98.2 F 04/24/25 18:15 Pulse 72 04/24/25 18:15 Resp 18 04/24/25 18:15 BP 208/112 H 04/24/25 18:15 Pulse Ox 96 04/24/25 18:15 O2 Del Method Room Air 04/24/25 18:15 Course Vital Signs Vital signs: Vital Signs Temperature 98.2 F 04/24/25 18:15 Pulse Rate 72 04/24/25 18:15 Respiratory Rate 18 04/24/25 18:15 Blood Pressure 208/112 H 04/24/25 18:15 Pulse Oximetry 96 04/24/25 18:15 Oxygen Delivery Method Room Air 04/24/25 18:15 Temperature 98.2 F 04/24/25 18:15 Pulse Rate 72 04/24/25 18:15 Respiratory Rate 18 04/24/25 18:15 Blood Pressure 208/112 H 04/24/25 18:15 Pulse Oximetry 96 04/24/25 18:15 Oxygen Delivery Method Room Air 04/24/25 18:15 Medical Decision Making MDM Narrative Medical decision making narrative: The patient has Percocet at home and will follow-up with his PCP. He was given 1 mg of Dilaudid IM here. Treatment diagnosis and follow-up were discussed with the patient. Differential Diagnosis Differential Diagnosis: Rheumatoid arthritis, arthritis, arthralgia Medical Records Medical records reviewed: Yes I reviewed the patient's medical records Discharge Plan Discharge Chief Complaint: Neck Pain/Injury Clinical Impression: Arthralgia Patient Disposition: Home, Self-Care Time of Disposition Decision: 18:36 Condition: Good Mode of Transportation: Private Vehicle Prescriptions / Home Meds: No Action insulin degludec [Tresiba FlexTouch U-200] 200 unit/mL (3 mL) insulin pen 100 unit SUBCUT DAILY rosuvastatin 10 mg tablet 10 mg PO DAILY alprazolam 0.5 mg tablet 0.5 mg PO BID Qulipta 60 mg tablet 60 mg PO DAILY Jardiance 10 mg tablet 10 mg PO DAILY ibuprofen 800 mg tablet 800 mg PO Q8H PRN (Reason: pain) metoprolol succinate 100 mg tablet extended release 24 hr 100 mg PO DAILY oxycodone-acetaminophen 5-325 mg tablet 2 tab PO Q6H PRN (Reason: pain) amitriptyline 25 mg tablet pregabalin 300 mg capsule 300 mg PO DAILY Print Language: Croatian Instructions: Arthralgia (ED) Additional Instructions: Blood pressure recheck from your PCP. Referrals: NISA ROJAS [Primary Care Provider, Internal Medicine] - 1 week
[2025-04-24] MEDS: HYDROMORPHONE HCL 1 MG/ML CARTRIDGE IM (18:51)
[2025-04-24 18:56] VITALS: BP 180/92; PULSE 78; O2SAT 98
== END 2025-04-24 19:04 | disposition home or self-care (01) ==
PROVIDERS: Emergency Provider Emergency Medicine; PCP Internal Medicine
DX: M25.50 Pain in unspecified joint (principal); M06.9 Rheumatoid arthritis, unspecified; G35 Multiple sclerosis; F17.200 Nicotine dependence, unspecified, uncomplicated
CPT/HCPCS: 96372; 99284; J1171

== ENCOUNTER 2025-04-29 12:39 | Emergency (ER) | payer MEDICARE, MEDICAID, SELFPAY ==
[2025-04-29 12:46] VITALS: BP 162/100; PULSE 62; TEMP 36.9; O2SAT 98; BMI 51.7
--- NOTE | 2025-04-29 13:04 | PC.NURSE ---
pt has h/o MS and using w/c for long distance walking. pt tongue intact and pt speech clear, pt able to recall seizures while he has them
--- NOTE | 2025-04-29 13:21 | CT_ITS ---
The [address] [address] Patient Name: KERLINE CHANG MRN: [id number] date: 1970 Sex: M Assigned Patient Location: ER Current Patient Location: .MAIN Accession/Order Number: [id number] Exam Date: 04/29/2025 13:57 Report Date: 04/29/2025 14:46 At the request of: NADEEN GARCÍA Procedure: CT facial bones w con CT BRAIN/FACIAL BONES WITHOUT AND WITH CONTRAST: CLINICAL HISTORY: 2 seizures yesterday posterior head pain. Left maxillary swelling. COMPARISON: CT brain 12/28/2024 TECHNIQUE: Contiguous axial unenhanced and enhanced images were obtained through the brain and facial bones. This CT exam was performed using one or more following dose reduction techniques: Automated exposure control, adjustment of the mA and/or kV according to patient size, or use of iterative reconstruction technique. FINDINGS: Brain: There is no evidence of midline shift, intra or extra-axial fluid collection, hemorrhage or CT evidence of stroke. Cortical atrophy with chronic microvascular ischemic changes grossly similar to the prior study. Posterior fossa appears unremarkable. The surrounding soft tissues are normal. CTA brain: Posterior inferior cerebral arteries appear patent. Basilar artery appears patent. Superior cerebellar arteries appear patent. Left posterior cerebral artery appears patent. origin of the right LITHOGRAPH OPERATOR which appears patent and is only partially visualized through its proximal course due to slice thickness. Intracranial portions of the ICAs appear patent. Anterior cerebral arteries appear grossly unremarkable. Anterior communicating artery appears unremarkable. Posterior communicating arteries not identified. Visualized portions of the middle cerebral arteries appear patent. No abnormal enhancing brain lesion is seen. Facial Bones No nasal bone fracture. Zygomatic arches and pterygoid plates appear intact. Maxilla and mandible appear grossly intact. No bony destructive lesion is seen. Nasal septum is deviated towards the left. No orbital fracture. Intraorbital contents appear unremarkable. No significant soft tissue swelling CT/CT head/brain wo con IMPRESSION: NO ACUTE FACIAL BONE INJURY. NO ACUTE INTRACRANIAL ABNORMALITY. Impression dictated by: Erik Araiza Jr., D.O. 04/29/2025 2:46 PM Dictation Location: [place] [address] Electronically authenticated by: [id number] Y Date: 04/29/2025 14:46
--- NOTE | 2025-04-29 13:21 | CT_ITS ---
The [address] [address] Patient Name: KERLINE CHANG MRN: [id number] date: 1970 Sex: M Assigned Patient Location: ER Current Patient Location: .MAIN Accession/Order Number: [id number] Exam Date: 04/29/2025 13:57 Report Date: 04/29/2025 14:46 At the request of: NADEEN GARCÍA Procedure: CT facial bones w con CT BRAIN/FACIAL BONES WITHOUT AND WITH CONTRAST: CLINICAL HISTORY: 2 seizures yesterday posterior head pain. Left maxillary swelling. COMPARISON: CT brain 12/28/2024 TECHNIQUE: Contiguous axial unenhanced and enhanced images were obtained through the brain and facial bones. This CT exam was performed using one or more following dose reduction techniques: Automated exposure control, adjustment of the mA and/or kV according to patient size, or use of iterative reconstruction technique. FINDINGS: Brain: There is no evidence of midline shift, intra or extra-axial fluid collection, hemorrhage or CT evidence of stroke. Cortical atrophy with chronic microvascular ischemic changes grossly similar to the prior study. Posterior fossa appears unremarkable. The surrounding soft tissues are normal. CTA brain: Posterior inferior cerebral arteries appear patent. Basilar artery appears patent. Superior cerebellar arteries appear patent. Left posterior cerebral artery appears patent. origin of the right INFIRMARY ATTENDANT which appears patent and is only partially visualized through its proximal course due to slice thickness. Intracranial portions of the ICAs appear patent. Anterior cerebral arteries appear grossly unremarkable. Anterior communicating artery appears unremarkable. Posterior communicating arteries not identified. Visualized portions of the middle cerebral arteries appear patent. No abnormal enhancing brain lesion is seen. Facial Bones No nasal bone fracture. Zygomatic arches and pterygoid plates appear intact. Maxilla and mandible appear grossly intact. No bony destructive lesion is seen. Nasal septum is deviated towards the left. No orbital fracture. Intraorbital contents appear unremarkable. No significant soft tissue swelling CT/CT facial bones w con IMPRESSION: NO ACUTE FACIAL BONE INJURY. NO ACUTE INTRACRANIAL ABNORMALITY. Impression dictated by: Erik Araiza Jr., D.O. 04/29/2025 2:46 PM Dictation Location: [place] [address] Electronically authenticated by: [id number] Y Date: 04/29/2025 14:46
--- NOTE | 2025-04-29 13:21 | CT_ITS ---
The [address] [address] Patient Name: KERLINE CHANG MRN: [id number] date: 1970 Sex: M Assigned Patient Location: ER Current Patient Location: .MAIN Accession/Order Number: [id number] Exam Date: 04/29/2025 13:57 Report Date: 04/29/2025 14:46 At the request of: NADEEN GARCÍA Procedure: CT facial bones w con CT BRAIN/FACIAL BONES WITHOUT AND WITH CONTRAST: CLINICAL HISTORY: 2 seizures yesterday posterior head pain. Left maxillary swelling. COMPARISON: CT brain 12/28/2024 TECHNIQUE: Contiguous axial unenhanced and enhanced images were obtained through the brain and facial bones. This CT exam was performed using one or more following dose reduction techniques: Automated exposure control, adjustment of the mA and/or kV according to patient size, or use of iterative reconstruction technique. FINDINGS: Brain: There is no evidence of midline shift, intra or extra-axial fluid collection, hemorrhage or CT evidence of stroke. Cortical atrophy with chronic microvascular ischemic changes grossly similar to the prior study. Posterior fossa appears unremarkable. The surrounding soft tissues are normal. CTA brain: Posterior inferior cerebral arteries appear patent. Basilar artery appears patent. Superior cerebellar arteries appear patent. Left posterior cerebral artery appears patent. origin of the right NURSING SCHEDULER which appears patent and is only partially visualized through its proximal course due to slice thickness. Intracranial portions of the ICAs appear patent. Anterior cerebral arteries appear grossly unremarkable. Anterior communicating artery appears unremarkable. Posterior communicating arteries not identified. Visualized portions of the middle cerebral arteries appear patent. No abnormal enhancing brain lesion is seen. Facial Bones No nasal bone fracture. Zygomatic arches and pterygoid plates appear intact. Maxilla and mandible appear grossly intact. No bony destructive lesion is seen. Nasal septum is deviated towards the left. No orbital fracture. Intraorbital contents appear unremarkable. No significant soft tissue swelling CT/CT angio head IMPRESSION: NO ACUTE FACIAL BONE INJURY. NO ACUTE INTRACRANIAL ABNORMALITY. Impression dictated by: Erik Araiza Jr., D.O. 04/29/2025 2:46 PM Dictation Location: [place] [address] Electronically authenticated by: [id number] Y Date: 04/29/2025 14:46
--- NOTE | 2025-04-29 13:21 | XR_ITS ---
The [place] [id number] Patient Name: KERLINE CHANG MRN: [id number] date: 1970 Sex: M Assigned Patient Location: ED.MAIN Current Patient Location: ED.MAIN Accession/Order Number: [id number] Exam Date: 04/29/2025 14:05 Report Date: 04/29/2025 14:36 At the request of: NADEEN GARCÍA Procedure: XR chest 1V Single view chest: CLINICAL HISTORY: seizure COMPARISON: Chest 05/18/2019 FINDINGS: Suboptimal evaluation due to body habitus. The heart is normal in size. The lungs are clear. The pulmonary vasculature is normal. Mediastinum and hilar regions are unremarkable. No pleural effusions are seen. Visualized bones are intact. XR/XR chest 1V IMPRESSION: NO ACUTE PROCESS. Impression dictated by: Erik Araiza Jr., D.O. 04/29/2025 2:36 PM Dictation Location: [place] [address] Electronically authenticated by: [id number] Y Date: 04/29/2025 14:36
--- NOTE | 2025-04-29 13:26 | ED_ITS ---
HPI - Seizure General Chief Complaint: Seizure Stated Complaint: SEIZURES HEAD PAIN Time Seen by Provider: 04/29/25 13:03 Source: patient Mode of arrival: Wheelchair History of Present Illness HPI Narrative: 54-year-old male presents with possible seizure activity beginning yesterday morning. Patient?s mother witnessed the episode, which lasted approximately 1 minute. During the event, the patient was unable to speak, and his eyes fluttered. He reports pain in the back of his head just prior to the event. HE does not recall the event. HIs mother witnessed the events. No postictal confusion or disorientation noted. Headache is occipital, sharp, intermittent for the past 36 hours. He has a history of headaches, though usually frontal in location. Headache is not sudden in onset, not the worst headache of his life, and not persistent. He has a remote history of seizures in his 20s when diagnosed with multiple sclerosis but has not had seizures for several years and is not on antiepileptic medication.He is on immunosuppresants per his neurologist for MS. Recent dental extraction (left upper molar, with abscess) two days ago; was taking Keflex prior to procedure. Reports swelling in the left maxillary area but no difficulty swallowing, no trismus, and no voice change. Past medical history significant for insulin-dependent diabetes mellitus (poorly controlled, blood sugars ?all over the place?) and hypertension (on medication but poorly controlled). Denies chest pain, shortness of breath, focal weakness, numbness, vision changes (except for baseline cataracts), or recent drug/alcohol use.He has dental surgery on Friday getting teeth extracted. Vital Signs: * BP: 162/100 * HR: 62 * RR: 20 * Temp: 98.5?F * O? Sat: 98% on room air Seizure History: Yes Place: home Related Data Home Medications ?Medication ?Instructions ?Recorded ?Confirmed insulin degludec 200 unit/mL (3 100 unit subcut DAILY 05/21/23 04/24/25 mL) subcutaneous pen (Tresiba FlexTouch U-200 insulin) rosuvastatin 10 mg tablet 10 mg PO DAILY 05/21/2304/05 amitriptyline 25 mg tablet mg 12/28/24 pregabalin 300 mg capsule 300 mg PO DAILY 12/28/24 alprazolam 0.5 mg tablet 0.5 mg PO BID 04/18/2504/29 atogepant 60 mg tablet (Qulipta) 60 mg PO DAILY 04/29/25 empagliflozin 10 mg tablet 10 mg PO DAILY 04/18/25 (Jardiance) metoprolol succinate 100 mg 100 mg PO DAILY 04/18/25 0 04/29/25 tablet,extended release 24 hr Allergies Allergy/AdvReac Type Severity Reaction Status Date / Time celecoxib (From Celebrex) AdvReac Diarrhea Verified 04/24/25 18:22 [facility] Medical History (Updated 04/29/25 @ 17:00 by RICKY MUIR) Multiple sclerosis ?G35 - Multiple sclerosis (ICD-10) Social History Smoking status: Current every day smoker Little interest or pleasure in doing things: not at all Feeling down, depressed, or hopeless: not at all Exam Narrative Exam Narrative: General Appearance: Patient is obese male resting in his bed in no acute distress on my initial evaluation. Vital signs: BP 162/100 HR 62 resp 20 Temp 98.5 F O2sat 98% room air HEENT (Head, Eyes, Ears, Nose, Throat): Patient does have swelling in the left maxillary area. No trismus, No swelling under the tongue, good phonation, He has swelling in the left upper gumline as well. No other abnormality in his dentition. TMs are normal. Pupils are equal bilaterally he does have accommodation. Cardiovascular: Heart and lung sounds are unremarkable. No murmur normal rhythm Respiratory: Normal work of breathing, clear to auscultation no wheezing or crackles. Abdomen: Soft and nontender no rebound or guarding. Extremities: Patient has good range of motion of all 4 extremities pulses equal bilaterally no rash no pedal edema. Neurological: Cranial nerves grossly intact, GCS of 15. Patient is alert and A/O x 4. He is interactive and able to tell me all the symptoms appropriately and in depth. He has normal sensation in all 4 extremities. NIH of 0 Mental status: No acute mental status changes. Skin: No rashes, no skin changes, no open wounds or lesions, normal color not diaphoretic Constitutional Vital Signs, click to edit/add: Last Vital Signs Temp 98.5 F 04/29/25 12:46 Pulse 62 04/29/25 12:46 Resp 20 04/29/25 12:46 BP 162/100 H 04/29/25 12:46 Pulse Ox 98 04/29/25 12:46 O2 Del Method Room Air 04/29/25 12:46 Course Consultations Consultation #1: Dr. Albert from [facility] neurology recommends admission for EEG and MRI. I will discuss with hospitalist here if unable to keep here will transfer to a [facility] facility for work up. Time: 16:30 Vital Signs Vital signs: Vital Signs Temperature 98.5 F 04/29/25 12:46 Pulse Rate 62 04/29/25 12:46 Respiratory Rate 20 04/29/25 12:46 Blood Pressure 162/100 H 04/29/25 12:46 Pulse Oximetry 98 04/29/25 12:46 Oxygen Delivery Method Room Air 04/29/25 12:46 Temperature 98.5 F 04/29/25 12:46 Pulse Rate 62 04/29/25 12:46 Respiratory Rate 20 04/29/25 12:46 Blood Pressure 162/100 H 04/29/25 12:46 Pulse Oximetry 98 04/29/25 12:46 Oxygen Delivery Method Room Air 04/29/25 12:46 MDM - Seizure MDM Narrative Medical decision making narrative: Diagnostics: * Labs: CBC/CMP unremarkable except glucose 404 mg/dL, BUN 19 mg/dL. * Imaging: CT/CTA brain negative for acute process. MDM (Medical Decision Making): * Differential: Seizure vs pseudoseizure, MS exacerbation, metabolic/electrolyte abnormality, intracranial infection or space-occupying lesion, dental abscess complication, hyperglycemia/DKA. * Assessment: Possible new-onset seizure activity with hyperglycemia and recent dental infection. No acute process on CT/CTA. Patient currently neurologically intact. * Plan: * Seizure precautions initiated. * 1L normal saline IV given. * Consulted Dr. Albert ([facility]), who recommended EEG and MRI inpatient. * Attempted admission locally; EEG unavailable. * Offered transfer to [facility] or [facility] for further work-up. * Risks of leaving without further work-up (including risk of recurrent seizure, worsening infection, life-threatening condition) explained to patient and mother in detail. Disposition: Patient declined admission and transfer despite understanding risks of a life altering or life threatening event occurring. He states has does not want to stay as he has too much to do at home despite risks. AMA form signed. Mother and RN Lala present during discussion. Patient left AMA in stable condition. ----- AMA Note: Patient is a 54-year-old male evaluated in the ED for possible seizures, headache, and hyperglycemia. Work-up included labs (CBC and chemistry with glucose 404 mg/dL) and CT/CTA head which were negative for acute process. Patient was placed on seizure precautions during ED stay and given IV fluids. Case was discussed with Dr. Albert ([facility]), who recommended EEG and MRI as an inpatient for further work-up of new seizure-like episodes. Admission was offered at this facility and transfer to [facility] for appropriate monitoring and diagnostics. Risks of leaving AMA were thoroughly discussed with the patient, including: * Risk of recurrent seizure, injury, or * Risk of missed diagnosis such as encephalitis, brain abscess, progression of multiple sclerosis, or other neurologic condition * Risk of uncontrolled hyperglycemia, possible DKA, coma, or Patient verbalized understanding of risks, was alert and oriented ?4, and demonstrated decision-making capacity. His mother was present for the discussion, as well as DINORAH Reeves, and all parties verbalized understanding. Patient elected to leave AMA despite recommendation for further workup and admission. Patient was advised to: * Monitor blood sugars closely and take insulin as prescribed * Avoid driving, swimming, or operating heavy machinery until cleared by neurology * Follow up with neurology and primary care urgently for seizure work-up and diabetes management * Return to ED immediately for recurrent seizure, confusion, weakness, severe headache, fever, chest pain, shortness of breath, or any new/worsening sympto ms AMA paperwork was signed by the patient and witnessed by staff. Patient left the ED ambulatory, in stable condition. Medical Records Attestation: I reviewed the patient's medical records. Lab Data Attestation: I reviewed the patient's lab results. Labs: Lab Results 04/29/25 04/29/25 04/29/25 Range/Units 13:34 15:40 16:08 WBC 8.6 (4.0-11.0) 10^3/uL RBC 5.02 (4.70-6.10) 10^6/uL Hgb 14.5 (14.0-18.0) g/dL Hct 42.7 (42.0-54.0) % MCV 85.1 (80.0-94.0) fL MCH 28.9 (25.9-34.0) pg MCHC 34.0 (29.9-35.2) g/dL RDW 12.9 (11.0-15.0) % Plt Count 344 (150-450) 10^3/uL MPV 10.1 (9.5-13.5) fL Neut % (Auto) 66.0 (43.0-75.0) % Lymph % (Auto) 22.0 (20.5-60.0) % [place] % (Auto) 9.3 (1.7-12.0) % Eos % (Auto) 2.2 (0.9-7.0) % Baso % (Auto) 0.3 (0.2-2.0) % Neut # (Auto) 5.7 (1.4-6.5) 10^3/uL Lymph # (Auto) 1.9 (1.2-3.8) 10^3/uL [place] # (Auto) 0.8 (0.3-0.8) 10^3/uL Eos # (Auto) 0.2 (0.0-0.7) 10^3/uL Baso # (Auto) 0.0 (0.0-0.1) 10^3/uL Abs Immat Gran (auto) 0.02 (0.00-0.03) 10^3/uL Imm/Tot Granulo (auto) 0.2 (0.0-0.5) % Sodium 135 L (136-145) mmol/L Potassium 3.7 (3.5-5.1) mmol/L Chloride 100 (98-107) mmol/L Carbon Dioxide 25.6 (21.0-32.0) mmol/L Anion Gap 13.1 BUN 19.0 H (7.0-18.0) mg/dL Creatinine 0.99 (0.70-1.30) mg/dL Est GFR ( Amer) >60 (>=60 mL/min/1.73m^2) Est GFR (Non-Af Amer) >60 (>=60 mL/min/1.73m^2) BUN/Creatinine Ratio 19.2 Glucose 404 H (74-106) mg/dL Lactate 2.2 H* 1.4 (0.4-2.0) mmol/L Calcium 9.0 (8.5-10.1) mg/dL Magnesium 2.0 (1.8-2.4) mg/dL Urine Color Lt. yellow (YELLOW) Urine Clarity Clear (CLEAR) Urine pH 6.0 (5.0-9.0) Ur Specific [place] <=1.005 A (1.005-1.025) Urine Protein Trace (NEG/TRACE) mg/dL Urine Glucose (UA) >=1000 A (NEGATIVE) mg/dL Urine Ketones Negative (NEGATIVE) mg/dL Urine Occult Blood Negative (NEGATIVE) Urine Nitrite Negative (NEGATIVE) Urine Bilirubin Negative (NEGATIVE) Urine Urobilinogen 0.2 (0.2-1.0) EU/dL Ur Leukocyte Esterase Trace A (NEGATIVE) Urine RBC 0-2 (0-2) #/HPF Urine WBC 10-20 A (NONE SEEN) #/HPF Ur Squamous Epith Cells Few A (NONE/RARE) #/LPF Urine Crystals None seen (None Seen) #/HPF Urine Bacteria None seen (NONE SEEN) #/HPF Urine Casts None seen (NONE SEEN) #/LPF Urine Mucus None seen (NONE SEEN) Ur Culture Indicated? [place] [place] Urine Opiates Screen Negative (NEGATIVE) Ur Buprenorphine Scrn Negative (NEGATIVE) Ur Oxycodone Screen Negative (NEGATIVE) Urine Methadone Screen Negative (NEGATIVE) Ur Barbiturates Screen Negative (NEGATIVE) U Tricyclic Antidepress Positive A (NEGATIVE) Ur Phencyclidine Scrn Negative (NEGATIVE) Ur Amphetamines Screen Negative (NEGATIVE) U Methamphetamines Scrn Negative (NEGATIVE) U Benzodiazepines Scrn Negative (NEGATIVE) Urine Cocaine Screen Negative (NEGATIVE) U Cannabinoids Screen Negative (NEGATIVE) Imaging Data CT scan - head: Attestation: I have reviewed the pertinent imaging results. Radiologist's impression: ITS Impressions Chest X-Ray 04/29/25 13:21 IMPRESSION: NO ACUTE PROCESS. Impression dictated by: Erik Araiza Jr., D.O. 04/29/2025 2:36 PM Dictation Location: RADIO-PC-22 Electronically authenticated by: [id number] Y Date: 04/29/2025 14:[address] 04/29/25 13:21 IMPRESSION: NO ACUTE FACIAL BONE INJURY. NO ACUTE INTRACRANIAL ABNORMALITY. Impression dictated by: Erik Araiza Jr., D.O. 04/29/2025 2:46 PM Dictation Location: RADIO-PC-22 Electronically authenticated by: [id number] Y Date: 04/29/2025 14:[address] 04/29/25 13:21 IMPRESSION: NO ACUTE FACIAL BONE INJURY. NO ACUTE INTRACRANIAL ABNORMALITY. Impression dictated by: Erik Araiza Jr., D.O. 04/29/2025 2:46 PM Dictation Location: RADIO-PC-22 Electronically authenticated by: [id number] Y Date: 04/29/2025 14:46 Head CTA 04/29/25 13:21 IMPRESSION: NO ACUTE FACIAL BONE INJURY. NO ACUTE INTRACRANIAL ABNORMALITY. Impression dictated by: Erik Araiza Jr., D.O. 04/29/2025 2:46 PM Dictation Location: RADIO-PC-22 Electronically authenticated by: [id number] Y Date: 04/29/2025 14:46 ECG Data Attestation: ?I have reviewed the pertinent ECG results. Discharge Plan Discharge Stand Alone Forms: Portal Instructions Chief Complaint: Seizure Clinical Impression: Headache Altered mental state Qualifiers: Altered mental status type: transient alteration of awareness Qualified Code(s): R40.4 - Transient alteration of awareness Patient Disposition: Left Against Medical Advice Time of Disposition Decision: 16:57 Condition: Good Mode of Transportation: Private Vehicle Prescriptions / Home Meds: No Action insulin degludec [Tresiba FlexTouch U-200] 200 unit/mL (3 mL) insulin pen 100 unit SUBCUT DAILY rosuvastatin 10 mg tablet 10 mg PO DAILY alprazolam 0.5 mg tablet 0.5 mg PO BID Qulipta 60 mg tablet 60 mg PO DAILY Jardiance 10 mg tablet 10 mg PO DAILY metoprolol succinate 100 mg tablet extended release 24 hr 100 mg PO DAILY amitriptyline 25 mg tablet pregabalin 300 mg capsule 300 mg PO DAILY Print Language: Frisian Additional Instructions: AMA NOTE Patient is a 54-year-old male evaluated in the ED for possible seizures, headache, and hyperglycemia. Work-up included labs (CBC and chemistry with glucose 404 mg/dL) and CT/CTA head which were negative for acute process. Patient was placed on seizure precautions during ED stay and given IV fluids. Case was discussed with Dr. Albert ([facility]), who recommended EEG and MRI as an inpatient for further work-up of new seizure-like episodes. Admission was offered at this facility and transfer to [facility] for appropriate monitoring and diagnostics. Risks of leaving AMA were thoroughly discussed with the patient, including: * Risk of recurrent seizure, injury, or * Risk of missed diagnosis such as encephalitis, brain abscess, progression of multiple sclerosis, or other neurologic condition * Risk of uncontrolled hyperglycemia, possible DKA, coma, or Patient verbalized understanding of risks, was alert and oriented ?4, and demonstrated decision-making capacity. His mother was present for the discussion, as well as DINORAH Reeves, and all parties verbalized understanding. Patient elected to leave AMA despite recommendation for further workup and admission. Patient was advised to: * Monitor blood sugars closely and take insulin as prescribed * Avoid driving, swimming, or operating heavy machinery until cleared by neurology * Follow up with neurology and primary care urgently for seizure work-up and diabetes management * Return to ED immediately for recurrent seizure, confusion, weakness, severe headache, fever, chest pain, shortness of breath, or any new/worsening s ymptoms AMA paperwork was signed by the patient and witnessed by staff. Patient left the ED ambulatory, in stable condition. AMA Discharge Instructions (Patient-Friendly): * You were seen today for: possible seizure like activity * What we found: Your CT scan was negative. Your blood sugar was very high but y ou do not have diabetic ketoacidosis (a serious complication). * What was recommended: * Follow up with neurologist * Monitor blood sugar closely You have chosen to leave the hospital against medical advice. This means you are leaving before the full recommended treatment was given. This may put you at risk for: * Worsening infection * Dehydration * Dangerous blood sugar levels * Severe illness that may require hospitalization * continued seizure like activity When to return to the ER immediately: * Persistent vomiting or inability to keep fluids down * Fever or chills * Confusion, dizziness, or fainting seizure Return at anytime with any worse or concerning symptoms or if you change your mind regarding admission. We have covered the risk of being discharged AMA and not having the workup suggested by your neurologist Dr. Salvador from [facility]. Risk include life altering complication or life-threatening complication.. Referrals: NISA ROJAS [Primary Care Provider, Internal Medicine] - 1 week Discharge Date/Time: 04/29/25 17:09
--- NOTE | 2025-04-29 13:41 | ECG_ITS ---
[facility] Test Date: 2025-04-29 Pat Name: KERLINE CHANG Department: Room: - Gender: Male Cigarette Maker: : 1970 Requested By: [id number] Order Number: [id number] Reading MD: KALPESH MAN M.D. Measurements Intervals [place] Rate: 56 P: 13 [place]: 276 QRS: -3 QRSD: 94 T: 91 QT: 436 QTc: 428 Interpretive Statements 1100 Sinus rhythm 2231 First degree AV block 3114 Cannot rule out anterior myocardial infarction, age undetermined 5234 Left ventricular hypertrophy with repolarization abnormality 9150 abnormal ECG Compared to ECG 12/28/2024 20:57:34 Possible myocardial infarct finding now present Electronically Signed On 04-29-2025 17:01:29 EDT by KALPESH MAN M.D.
[2025-04-29 13:43] LABS: Hematocrit 42.7 % (42.0-54.0); Hemoglobin 14.5 g/dL (14.0-18.0); Immature Granulocytes Abs Auto 0.02 10^3/uL (0.00-0.03); Immature Granulocytes Pct Auto 0.2 % (0.0-0.5); Lymphocytes Absolute Auto 1.9 10^3/uL (1.2-3.8); Mean Corpuscular HGB Conc 34.0 g/dL (29.9-35.2); Mean Corpuscular Hemoglobin 28.9 pg (25.9-34.0); Mean Corpuscular Volume 85.1 fL (80.0-94.0); Platelet Count 344 10^3/uL (150-450); Red Blood Count 5.02 10^6/uL (4.70-6.10); White Blood Count 8.6 10^3/uL (4.0-11.0)
[2025-04-29 13:50] LABS: Anion Gap 13.1; Blood Urea Nitrogen 19.0 mg/dL (7.0-18.0); Calcium 9.0 mg/dL (8.5-10.1); Carbon Dioxide 25.6 mmol/L (21.0-32.0); Chloride 100 mmol/L (98-107); Estimated GFR (African America >60 (>=60 mL/min/1.73m^2); Estimated GFR (Non-African Ame >60 (>=60 mL/min/1.73m^2); Glucose 404 mg/dL (74-106); Magnesium 2.0 mg/dL (1.8-2.4); Potassium 3.7 mmol/L (3.5-5.1); Sodium 135 mmol/L (136-145)
[2025-04-29 14:02] LABS: Lactate/Lactic Acid 2.2 mmol/L (0.4-2.0)
[2025-04-29] MEDS: 0.9 % SODIUM CHLORIDE 1,000 ML 999 ML IV (14:18)
[2025-04-29 15:54] LABS: Glucose Urine UA >=1000 mg/dL (NEGATIVE)
[2025-04-29 16:02] LABS: Cast Seen? NONE SEEN #/LPF (NONE SEEN); Crystals Seen? None Seen #/HPF (None Seen); Urine Culture Indicated YES-FRMC
[2025-04-29 16:04] LABS: Cannabinoid Screen Urine NEGATIVE (NEGATIVE); Methamphetamines Screen Urine NEGATIVE (NEGATIVE); Tricyclic Antidepressant Urine POSITIVE (NEGATIVE)
[2025-04-29 16:32] LABS: Lactate/Lactic Acid 1.4 mmol/L (0.4-2.0)
[2025-04-29] MEDS: KETOROLAC TROMETHAMINE 30 MG/ML VIAL IVP (16:45)
== END 2025-04-29 17:09 | disposition left against medical advice (07) ==
PROVIDERS: Physician Assistant; Emergency Provider Emergency Medicine; PCP Internal Medicine
DX: R51.9 Headache, unspecified (principal); Z53.29 Procedure and treatment not carried out because of patient's decision for other reasons; R56.9 Unspecified convulsions; R40.4 Transient alteration of awareness; G35 Multiple sclerosis; Z98.818 Other dental procedure status; E11.9 Type 2 diabetes mellitus without complications; I10 Essential (primary) hypertension; Z79.4 Long term (current) use of insulin; Z79.84 Long term (current) use of oral hypoglycemic drugs; F17.200 Nicotine dependence, unspecified, uncomplicated
CPT/HCPCS: 36415; 70450; 70487; 70496; 71045; 80048; 80307; 81001; 83605; 83735; 84146; 85025; 87086; 93005; 96374; 99285; J1885; Q9967

== ENCOUNTER 2025-05-09 16:57 | Emergency (ER) | payer MEDICARE, MEDICAID, SELFPAY ==
--- OUTSIDE RECORDS SUMMARY | 2025-03-10 11:30 | XMS_ITS ---
Author Organization [facility] Address [address] [place] [address] Care Team Providers Care Business Analytics Manager Name Role Phone Dr. Erik Arora Primary Care Provider [phone] Lizzette Cazares [phone] REASON FOR VISIT FILLING Encounters Encounter Location Date Provider Diagnosis [facility] [address] [place] [address] 03/10/2025 Lizzette Cazares Dental caries on pit and fissure surface penetrating into dentin K02.52 Assessments Encounter Date Diagnosis (ICD Code) Assessment Notes Treatment Notes Treatment Clinical Notes Section Notes 03/10/2025 Dental caries on pit and fissure surface penetrating into dentin (ICD-10 - K02.52) Plan Of Treatment Next Appt Details Provider Name:Lizzette Marcogiselle, 05/12/2025 01:00:00 PM, [address], [place], [address], Provider Name:Lizzette Marcogiselle, 07/27/2025 08:35:00 AM, [address], [place], [address], Provider Name:Briseida Romero, 08/10/2025 02:30:00 PM, [address] [place], [address], Progress Notes * KERLINE CHANGDOB: [birth year] (54 yo M)Acc No.[id number]:03/10/2025 Patient: KERLINE ZALDIVAR Provider: Arabella Cazares :1970 A ge:54 Y S ex:Male Date:03/10/2025 Address:[address] [place], [place] [id number] Pcp:Dr. Erik Arora Subjective: * Chief Complaints: * 1 . FILLING. * Medical History: Objective: * Vitals: * Dental Examination/Plan : Tooth / Surface Status Description Provider 18 B C RESIN COMPOS - 1 SURFACE POSTERIOR J S 03/10/2025 Assessment: * Assessment: 1. D ental caries on pit and fissure surface penetrating into dentin - K02.52 (Primary) ? Plan: * Treatment: * Procedure Codes: D 2391 RESIN COMPOS - 1 SURFACE POSTERIOR, TthNo: 18, Srfc: B * Images: * Electronic signature of Gigi Cazares DMD on 05/09/2025 at 05:08 PM EDT Sign off status: Pending * Provider: Arabella Cazares Date: 0 03/10/2025 Generated for Therese cardenas/Aretha/Augustin on: 1 05:08 PM EDT
--- OUTSIDE RECORDS SUMMARY | 2025-03-17 07:00 | XMS_ITS ---
Author Organization [facility] Address [address] [place] [address] Care Team Providers Care Remote Pilot Operator Name Role Phone Dr. Erik Arora Primary Care Provider Lizzette Cazares [phone] REASON FOR VISIT EXT Encounters Encounter Location Date Provider Diagnosis [facility] [address] [place] [address] 03/17/2025 Lizzette Cazares Plan Of Treatment Next Appt Details Provider Name:Lizzette Cazares, 05/12/2025 01:00:00 PM, [address] [place], [address], Provider Name:Lizzette Cazares, 07/27/2025 08:35:00 AM, [address] [place], [address], Provider Name:Briseida Romero, 08/10/2025 02:30:00 PM, [address] [place], [address], Progress Notes * KERLINE CHANGDOB: [birth year] (54 yo M)Acc No.[id number]:03/17/2025 Patient: KERLINE ZALDIVAR Provider: Arabella Cazares :1970 A ge:54 Y S ex:Male Date:03/17/2025 Address:[address] [place], [place] [address], [id number] Pcp:Dr. Erik Arora Subjective: * Chief Complaints: * 1 . EXT. * Medical History: Objective: * Vitals: Assessment: Plan: * Treatment: * Images: * Electronic signature of Gigi Cazares DMD on 05/09/2025 at 05:09 PM EDT Sign off status: Pending * Provider: Arabella Cazares Date: 0 03/17/2025 Generated for Therese cardenas/Aretha/Augustin on: 1 05:09 PM EDT
--- OUTSIDE RECORDS SUMMARY | 2025-05-05 13:15 | XMS_ITS | Encounter Summary ---
Author Organization [facility] Address [address] [place] [address] Care Team Providers Care Mailroom Messenger Name Role Phone Darrius Orr MD Unavailable [phone] Darrius Orr MD Primary Care Provider [phone] Aiden Linares DPM Unavailable [phone] Kai Gutierres DO Unavailable [phone] Reason for Visit * Reason Comments Post-op Follow-up Encounter Details Date Type Department Care Team (Late st Contact Info) Description 05/05/2025 1:15 PM EDT Office Visit [facility] [address] [place] [address] Bina Faye MD [address] [place] [address] Postoperative care for cataract (Primary Dx) Social [...] Progress Notes * Bina Faye MD - 05/05/2025 1:15 PM EDT Allergies Allergen Reactions Duloxetine Diarrhea Verapamil GI intolerance Duloxetine Hcl Other Reaction(s): intolerance Natalizumab Other Reaction(s): AOF Semaglutide Other Reaction(s): nausea and vomiting Other Reaction(s): Other: See Comments Chills, nightmares, diarrhea Past Medical History: Diagnosis Date Adrenal adenoma, left 12/30/2022 Age-related nuclear cataract, bilateral Bipolar disorder ([facility]) Carpal tunnel syndrome Cervical paraspinal muscle spasm Cholelithiasis Chronic sialoadenitis CKD (chronic kidney disease) stage 2, GFR 60-89 ml/min Essential hypertension SUKHJINDER (generalized anxiety disorder) History of colon polyps Hyperlipidemia Hyperparathyroidism, unspecified ([facility]) 09/02/2008 in the setting of Vitamin D deficiency Immunodeficiency due to conditions classified elsewhere ([facility]) 12/30/2022 Irritable bowel syndrome Lipodermatosclerosis Lymphedema of both lower extremities Migraine Morbid obesity ([facility]) Multiple sclerosis, relapsing-remitting Nuclear senile cataract 01/03/2021 CODIE (obstructive sleep apnea) Other psoriasis 01/14/2006 POSSIBLE Peripheral neuropathy PLMD (periodic limb movement disorder) Polypharmacy Primary open angle glaucoma (POAG) of both eyes, mild stage Primary osteoarthritis involving multiple joints Psoriatic arthritis ([facility]) 02/11/2006 PTSD (post-traumatic stress disorder) Restless legs 12/10/2022 Seizures ([facility]) Spinal stenosis of cervical region Type 2 diabetes mellitus ([facility]) Varicose veins of lower limb Varicose veins Venous insufficiency Vitamin B12 deficiency Vitamin D deficiency Assessment/Plan s/p CE OD (1mth): Patient should be close to off all post-op meds. Pt. received final refraction for this eye today. documented in this encounter Plan of Treatment Upcoming Encounters Date Type Department Care Team (Late st Contact Info) Description 05/25/2025 1:30 PM EDT Office Visit [facility] [address] [place] [id number] Bina Faye MD [address] [place] [address] 06/06/2025 2:00 PM EST Office Visit [facility] [address] [place] [address] 07/18/2025 3:15 PM EST Procedure Visit [facility] [address] [place] [address] Susie Mary DPM [address] [place] [address] documented as of this encounter Visit Diagnoses Diagnosis Postoperative care for cataract- Primary Follow-up examination, following other surgery documented in this encounter Care Teams Mailroom Messenger Relationship Specialty Start Date End Date Darrius Orr MD [address] [place] [address] PCP - [employer] 08/04/19 Darrius Orr MD [address] [place] [address] PCP - General Internal Medicine 12/31/22 Aiden Linares DPM [address] [place] [address] Referring Physician Podiatry 10/30/23 Kai Gutierres DO [address] [facility] [address] [place] [address] Referring Physician Neurology 02/24/24 documented as of this encounter
[2025-05-09 17:07] VITALS: BP 193/93; PULSE 66; TEMP 36.7; O2SAT 98; BMI 52.9
--- OUTSIDE RECORDS SUMMARY | 2025-05-09 17:08 | XMS_ITS | Encounter Summary ---
Author Organization [facility] Address [address] [facility] [place] [address] Care Team Providers Care Wildlife Ecologist Name Role Phone Darrius Orr MD Unavailable [phone] Darrius Orr MD Primary Care Provider [phone] Aiden Linares DPM Unavailable [phone] Kai Gutierres DO Unavailable [phone] Encounter Details Date Type Department Care Team (Late Contact Info) Description 03/22/2025 Orders Only [facility] [address] [place] [phone] Unallocated, [facility] Provider, [address] [place] [address] Social History Tobacco Use Types Packs/Day Years [...] 05/25/2025 1:30 PM EDT Office Visit [facility] [address] [place] [address] Bina Faye MD [address] [place] [address] 06/06/2025 2:00 PM EST Office Visit [facility] [address] [place] [address] 07/18/2025 3:15 PM EST Procedure Visit [facility] [place] [facility] [address] [place] [address] Susie Mary DPM [address] [place] [address] documented as of this encounter Procedures Procedure [...] Ecologist Relationship Specialty Start Date End Date Darrius Orr MD [address] [place] [address] PCP - [employer] 08/04/19 Darrius Orr MD [address] [place] [phone] PCP - General Internal Medicine 12/31/22 Aiden Linares DPM [address] [place] [address] Referring Physician Podiatry 10/30/23 Kai Gutierres DO [address] [facility] [address] [place] [phone] Referring Physician Neurology 02/24/24 documented as of this encounter
--- OUTSIDE RECORDS SUMMARY | 2025-05-09 17:08 | XMS_ITS | Encounter Summary ---
Author Organization [facility] Address [address] [place] [address] Phone Care Team Providers Care Golf Club Assembler Name Role Phone Darrius Orr MD Primary Care Provider Encounter Details Date Type Department Care Team (Late st Contact Info) Description 03/11/2023 Scanned Document [facility] [address] [place] [address] Conversion, Onbase Social History Tobacco Use Types [...] on filedocumented in this encounter Care Teams Golf Club Assembler Relationship Specialty Start Date End Date Darrius Orr MD [address] [place] [address] PCP - General 01/28/19 documented as of this encounter
--- OUTSIDE RECORDS SUMMARY | 2025-05-09 17:08 | XMS_ITS | Clinical Summary ---
Author Organization [facility] Address [address] [place] [address] Phone Care Team Providers Care Linemarker Name Role Phone Darrius Orr MD Primary [...] age to complete this topic Care Teams Linemarker Relationship Specialty Start Date End Date Darrius Orr MD [address] [place] [address] PCP - General 01/28/19
--- OUTSIDE RECORDS SUMMARY | 2025-05-09 17:09 | XMS_ITS | Encounter Summary ---
Author Organization [facility] Address [address] [place] [address] Care Team Providers Care Motor Grader Operator Name Role Phone Darrius Orr MD Unavailable [phone] Darrius Orr MD Primary Care Provider [phone] Aiden Linares DPM Unavailable [phone] Kai Gutierres DO Unavailable [phone] Reason for Visit * Reason Onset Date Comments lab results and orders 12/01/2024 Encounter Details Date Type Department Care Team (Late st Contact Info) Description 12/01/2024 Results Follow-Up [facility] Internal Medicine [address] [facility] [address] [place] [address] Darrius Orr MD [address] [facility] [address] [place] [address] PSA, PTH, intact, Phosphorus, Additional followed-up results: [...] refill on rosuvastatin 20 mg sent to [email or web address] lab orders sent to [facility] for 1 week * Telephone Encounter - [...] ----- Message ----- From: Interface, Incoming Lab [facility] [place] Sent: 11/29/2024 3:04 PM EDT To: [...] Description 05/25/2025 1:30 PM EDT Office Visit [facility] [address] [place] [address] Bina Faye MD [address] [place] [address] 06/06/2025 2:00 PM EST Office Visit [facility] [address] [place] [address] 07/18/2025 3:15 PM EST Procedure Visit [facility] [address] [place] [address] Susie Mary DPM [address] [place] [address] Scheduled Orders Name Type Priority Associated Diagnoses Orde r Schedule Basic metabolic panel Lab Routine Hyponatremia Expected: 12/09/2024 (Approximate), Expires: 06/04/2025 Cortisol Lab Routine Hyperkalemia Expected: 12/09/2024 (Approximate), Expires: 06/04/2025 documented as of this encounter Visit Diagnoses Diagnosis Vitamin D deficiency Hyponatremia Hyposmolality and/or hyponatremia Hyperkalemia Hyperpotassemia Mixed hyperlipidemia documented in this encounter Care Teams Motor Grader Operator Relationship Specialty Start Date End Date Darrius Orr MD [address] [place] [address] PCP - [employer] 08/04/19 Darrius Orr MD [address] [place] [address] PCP - General Internal Medicine 12/31/22 Aiden Linares DPM [address] [place] [address] Referring Physician Podiatry 10/30/23 Kai Gutierres DO [address] [address] Referring Physician Neurology 02/24/24 documented as of this encounter
--- OUTSIDE RECORDS SUMMARY | 2025-05-09 17:09 | XMS_ITS | Encounter Summary ---
Author Organization [facility] Address [address] [facility] [place] [address] Care Team Providers Care Overlock Collar Setter Name Role Phone Darrius Orr MD Unavailable [phone] Darrius Orr MD Primary Care Provider [phone] Aiden Linares DPM Unavailable [phone] Kai Gutierres DO Unavailable [phone] Encounter Details Date Type Department Care Team ([facility] Contact Info) Description 02/24/2024 Orders Only [facility] [address] [facility] [address] [place] [address] A, Unknown Practice [address] [place], [place] [address] Social History Tobacco Use Types Packs/Day Years [...] 05/25/2025 1:30 PM EDT Office Visit [facility] Eye [address] [place] [address] Bina Faye MD [address] [place] [address] 06/06/2025 2:00 PM EST Office Visit [facility] [address] [place] [address] 07/18/2025 3:15 PM EST Procedure Visit [facility] [address] [place] [address] Susie Mary DPM [address] [place] [address] documented as of this encounter Procedures Procedure [...] on filedocumented in this encounter Care Teams Overlock Collar Setter Relationship Specialty Start Date End Date Darrius Orr MD [address] [facility] 230 [place] [address] PCP - [employer] 08/04/19 Darrius Orr MD [address] [place] [address] PCP - General Internal Medicine 12/31/22 Aiden Linares DPM [address] [facility] 100 [place] [address] Referring Physician Podiatry 10/30/23 Kai Gutierres DO [address] [facility] 353 [place] [address] Referring Physician Neurology 02/24/24 documented as of this encounter
--- OUTSIDE RECORDS SUMMARY | 2025-05-09 17:09 | XMS_ITS | Encounter Summary ---
Author Organization [facility] Address [address] [place] [address] Care Team Providers Care Metal Furniture Glazier Name Role Phone Darrius Orr MD Unavailable [phone] Darrius Orr MD Primary Care Provider [phone] Aiden Linares DPM Unavailable [phone] Kai Gutierres DO Unavailable [phone] Encounter Details Date Type Department Care Team (Late Contact Info) Description 11/05/2024 Orders Only [facility] [address] [place] [address] Arpan Ross MD [address] [facility] 120 [place] [address] Social History Tobacco Use Types [...] 05/25/2025 1:30 PM EDT Office Visit [facility] [address] [place] [address] Bina Faye MD [address] [place] [address] 06/06/2025 2:00 PM EST Office Visit [facility] [place] [facility] [address] [place] [address] 07/18/2025 3:15 PM EST Procedure Visit [facility] [address] [place] [address] Susie Mary DPM [address] [place] [address] documented as of this encounter Procedures Procedure [...] filedocumented in this encounter Care Teams Metal Furniture Glazier Relationship Specialty Start Date End Date Drarius Orr MD [address] [place] [address] PCP - [employer] 08/04/19 Darrius Orr MD [address] [place] [address] PCP - General Internal Medicine 12/31/22 Aiden Linares DPM [address] [facility] 100 [place] [address] Referring Physician Podiatry 10/30/23 Kai Gutierres DO [address] [facility] 353 [place] [address] Referring Physician Neurology 02/24/24 documented as of this encounter
--- OUTSIDE RECORDS SUMMARY | 2025-05-09 17:09 | XMS_ITS | Encounter Summary ---
Author Organization [facility] Address [address] [facility] [place] [address] Care Team Providers Care Nascar Pit Crew Person Name Role Phone Darrius Orr MD Unavailable [phone] Darrius Orr MD Primary Care Provider [phone] Aiden Linares DPM Unavailable [phone] Kai Gutierres DO Unavailable [phone] Encounter Details Date Type Department Care Team (Latest Contact Info) Description 05/05/2025 Travel Social History Tobacco Use Types Packs/Day [...] Department Care Team ( Contact Info) Description 05/25/2025 1:30 PM EDT Office Visit [facility] [address] [place] [address] Bina Faye MD [address] [place] [address] 06/06/2025 2:00 PM EST Office Visit [facility] [place] [facility] [address] [place] [address] 07/18/2025 3:15 PM EST Procedure Visit [facility] [place] [facility] [address] [place] [address] Susie Mary DPM [address] [place] [address] documented as of this encounter Visit Diagnoses Not on filedocumented in this encounter Care Teams Nascar Pit Crew Person Relationship Specialty Start Date End Date Darrius Orr MD [address] [place] [address] PCP - [employer] 08/04/19 Darrius Orr MD [address] [place] [address] PCP - General Internal Medicine 12/31/22 Aiden Linares DPM [address] [place] [address] Referring Physician Podiatry 10/30/23 Kai Gutierres DO [address] [facility] [address] [place] [address] Referring Physician Neurology 02/24/24 documented as of this encounter
--- OUTSIDE RECORDS SUMMARY | 2025-05-09 17:09 | XMS_ITS | Encounter Summary ---
Author Organization [facility] Address [address] [facility] [place] [address] Care Team Providers Care Blanchard Grinder Operator Name Role Phone Darrius Orr MD Unavailable [phone] Darrius Orr MD Primary Care Provider [phone] Aiden Linares DPM Unavailable [phone] Kai Gutierres DO Unavailable [phone] Reason for Visit * Reason Onset Date Comments On-Call. 05/08/2025 Encounter Details Date Type Department Care Team ([facility] Contact Info) Description 05/08/2025 Telephone [facility] [place] [facility] [address] [facility] [address] [place] [address] Darrius Orr MD [address] [facility] 230 [place] [address] On-Call. Social History Tobacco Use Types Packs/Day Years [...] encounter Miscellaneous Notes * Telephone Encounter - Alta Golden - 05/08/2025 9:[address] Orr via secure chat I would tell him not to take the Percocet for at least 2 hours. Advised Pt to wait the 2 hours after taking Soma and Lyrica before taking his Percocet per Dr. Orr. Pt stated understanding. * Telephone Encounter - Alta Golden - 05/08/2025 9:22 PM EDT Pt called OA stating he took Soma and Lyrica 300 about 1 hour ago. Now he is starting to get a ???massive?? headache and would like to know if it is ok to take a Percocet so close together with Somaand Lyrica. Pt is also getting very ???whoozy?? . He hopes to fall asleep before its needed, but would like to check just in case. Sent secure chat to Dr. Orr. documented in this encounter Plan of Treatment Upcoming Encounters Date Type Department Care Team (Late st Contact Info) Description 05/25/2025 1:30 PM EDT Office Visit [facility] [address] [place] [address] Bina Faye MD [address] [place] [address] 06/06/2025 2:00 PM EST Office Visit [facility] [address] [place] [address] 07/18/2025 3:15 PM EST Procedure Visit [facility] [place] [facility] [address] [facility] 100 [place] [address] Susie Mary DPM [address] [facility] 100 [place] [address] documented as of this encounter Visit Diagnoses Not on filedocumented in this encounter Care Teams Blanchard Grinder Operator Relationship Specialty Start Date End Date Darrius Orr MD [address] [facility] 230 [place] [address] PCP - [employer] 08/04/19 Darrius Orr MD [address] [place] [address] PCP - General Internal Medicine 12/31/22 Aiden Linares DPM [address] [facility] 100 [place] [address] Referring Physician Podiatry 10/30/23 Kai Gutierres DO [address] [facility] 353 [place] [address] Referring Physician Neurology 02/24/24 documented as of this encounter
--- OUTSIDE RECORDS SUMMARY | 2025-05-09 17:09 | XMS_ITS | Encounter Summary ---
Author Organization [facility] Address [address] [place] [address] Care Team Providers Care Pin Feather Machine Operator Name Role Phone Darrius Orr MD Unavailable [phone] Darrius Orr MD Primary Care Provider [phone] Aiden Linares DPM Unavailable [phone] Kai Gutierres DO Unavailable [phone] Encounter Details Date Type Department Care Team ([facility] Contact Info) Description 03/04/2025 External Result Encounter N[facility] External Department Unsolicited Bhavesh Reveles, DO [address] [place] [address] Social History Tobacco Use Types Packs/Day Years [...] 05/25/2025 1:30 PM EDT Office Visit [facility] [address] [place] [address] Bina Faye MD [address] [place] [address] 06/06/2025 2:00 PM EST Office Visit [facility] [place] [facility] [address] [place] [address] 07/18/2025 3:15 PM EST Procedure Visit [facility] [place] [facility] [address] [place] [address] Susie Mary DPM [address] [place] [address] documented as of this encounter Procedures Procedure [...] Peres M.D. 03/04/2025 7:38 PM Dictation Location: [place] [address] Transcribed By: [facility] 03/04/251937 Dictated By: Sergei Peres MD 03/04/251923 Signed By: <Electronically signed by Sergei Peres MD in [place]> 03/04/25 1938 Narrative 03/04/2025 7:40 PM EDT [facility] Main [place] [address] [place] [id number] Scan Report Signed Patient: Alex Dyer MR#: [id number] 73 : 1970 Acct:[id number] Age/Sex: 54 / M ADM Date: 03/04/25 [...] Procedure Note Radiology, Radiologist, MD - 03/04/2025 [facility] Main [place] [id number] CT Scan Report Signed Patient: Alex Dyer JMR#: [id number] 73 : 1970Acct:[id number] Age/Sex: 54 / MADM Date: 03/04/25 Loc: [...] Peres M.D. 03/04/2025 7:38 PM Dictation Location: [place] [address] Transcribed By: [facility] 03/04/251937 Dictated By: Sergei Peres MD 03/04/251923 Signed By: <Electronically signed by Sergei Peres MD in [place]> 03/04/251937 Bhavesh Reveles DO IMG CT PROCEDURES Final Res ult documented in this encounter Visit Diagnoses Not on filedocumented in this encounter Care Teams Pin Feather Machine Operator Relationship Specialty Start Date End Date Darrius Orr MD [address] [place] [address] PCP - [employer] 08/04/19 Darrius Orr MD [address] [place] [address] PCP - General Internal Medicine 12/31/22 Aiden Linares DPM [address] [facility] 100 [place] [address] Referring Physician Podiatry 10/30/23 Kai Gutierres DO [address] [place] [address] Referring Physician Neurology 02/24/24 documented as of this encounter
--- OUTSIDE RECORDS SUMMARY | 2025-05-09 17:09 | XMS_ITS | Encounter Summary ---
Author Organization [facility] Address [address] [facility] [place] [address] Care Team Providers Care Gastroenterology Technician Name Role Phone Darrius Orr MD Unavailable [phone] Darrius Orr MD Primary Care Provider [phone] Aiden Linares DPM Unavailable [phone] Kai Gutierres DO Unavailable [phone] Encounter Details Date Type Department Care Team ([facility] Contact Info) Description 05/05/2025 Orders Only [facility] [place] [facility] [address] [facility] [address] [place] [address] Darrius Orr MD [address] [facility] [address] [place] [address] Spinal stenosis in cervical region Social History [...] 05/25/2025 1:30 PM EDT Office Visit [facility] Eye [address] [place] [address] Bina Faye MD [address] [place] [address] 06/06/2025 2:00 PM EST Office Visit [facility] [address] [place] [address] 07/18/2025 3:15 PM EST Procedure Visit [facility] [address] [place] [address] Susie Mary DPM [address] [place] [address] documented as of this encounter Visit Diagnoses Diagnosis Spinal stenosis in cervical region documented in this encounter Care Teams Gastroenterology Technician Relationship Specialty Start Date End Date Darrius Orr MD [address] [place] [address] PCP - [employer] 08/04/19 Darrius Orr MD [address] [place] [address] PCP - General Internal Medicine 12/31/22 Aiden Lniares DPM [address] [place] [address] Referring Physician Podiatry 10/30/23 Kai Gutierres DO [address] [address] Referring Physician Neurology 02/24/24 documented as of this encounter
--- OUTSIDE RECORDS SUMMARY | 2025-05-09 17:09 | XMS_ITS | Encounter Summary ---
Author Organization [facility] Address [address] [facility] [place] [address] Care Team Providers Care Head Sawyer Name Role Phone Darrius Orr MD Unavailable [phone] Darrius Orr MD Primary Care Provider [phone] Aiden Linares DPM Unavailable [phone] Kai Gutierres DO Unavailable [phone] Encounter Details Date Type Department Care Team (Late Contact Info) Description 02/28/2025 Orders Only [facility] [place] [facility] [address] [facility] [address] [place] [address] Unallocated, Noms Provider, [address] [place] [address] Social History Tobacco Use Types Packs/Day Years [...] Health Services [address] [place] [address] Bina Faye MD [address] [place] [address] 06/06/2025 2:00 PM EST Office Visit [facility] [place] [facility] [address] [place] [address] 07/18/2025 3:15 PM EST Procedure Visit [facility] [place] [facility] [address] [place] [address] Susie Mary DPM [address] [place] [address] documented as of this encounter Procedures Procedure Name Priority Date/Time Associated Diagnosis Comments COLONOSCOPY Routine 01/27/2019 2:36 PM EDT documented in this encounter Results * Colonoscopy (01/27/2019 2:36 PM EDT) Anatomical Region Laterality Modality Endoscopy us N[facility] Provider Unallocated MD ENDOSCOPY PROCEDURE ORDERABLES Final Result documented in this encounter Visit Diagnoses Not on filedocumented in this encounter Care Teams Head Sawyer Relationship Specialty Start Date End Date Darrius Orr MD [address] [facility] [address] [place] [address] PCP - [employer] 08/04/19 Darrius Orr MD [address] [place] [address] PCP - General Internal Medicine 12/31/22 Aiden Linares DPM [address] [facility] [address] [place] [address] Referring Physician Podiatry 10/30/23 Kai Gutierres DO [address]03 [facility] 353 [place] [address] Referring Physician Neurology 02/24/24 documented as of this encounter
--- OUTSIDE RECORDS SUMMARY | 2025-05-09 17:09 | XMS_ITS | Patient Health Record ---
Author Organization [employer] [facility] Address [address] [place] [address] Care Team Providers Care Metal Casket Maker Name Role Phone Dr. Erik Arora Primary Care Provider Edelmira Jones Unavailable [phone] Lydia Dey Unavailable [phone] Lizzette Cazares Unavailable [phone] Allergies No Known Allergies Reason For Referral [...] down, depressed, or hopeless More than h elbert the days Trouble falling or staying asleep, [...] Notes Problem Mixed bipolar affective disorder, moderate (725177128) Bipolar mixed affective disorder, moderate (F31.62) Active confirmed Encounters Encounter Location Date Provider Diagnosis [facility] [address] [place] [address] 04/06/2025 [facility] [address] [place] [address] 04/11/2025 [facility] [address] [place] [address] 08/24/2024 Erik Arora Cracked tooth K03.81 ; Dental caries on pit and fissure surface penetrating into dentin K02.52 ; Other dental procedure status Z98.818 and Encounter for dental examination and cleaning with abnormal findings Z01.21 [facility] [address] [place] [address] 01/28/2025 Erik Arora Dental caries on pit and fissure surface penetrating into dentin K02.52 and Cracked tooth K03.81 [facility] [address] [facility] [place] [address] 04/08/2025 Erik Arora Cracked tooth K03.81 [facility] [address] [place] [address] 03/10/2025 Lizzette Saric Dental caries on pit and fissure surface penetrating into dentin K02.52 [facility] [address] [place] [address] 11/23/2024 Lizzette Saric Dental caries on pit and fissure surface penetrating into dentin K02.[address] [place] [address] 01/10/2025 Edelmira Morejon Cracked tooth K03.81 ; Other dental procedure status Z98.818 and Encounter for dental examination and cleaning with abnormal findings Z01.[address] [place] [address] 02/23/2025 Erik Arora Encounter for dental examination and cleaning with abnormal findings Z01.21 and Other dental procedure status Z98.818 [facility] [address] [facility] [address] [place] [address] 04/05/2025 Erik Arora Encounter for dental examination [...] 01:00:00 PM, [address] [place], [place], [address], Provider Name:Lizzette Cazares, 07/27/2025 08:35:00 AM, [address] [place], [place], [address], Provider Name:Briseida Romero, 08/10/2025 02:30:00 PM, [address] [place], [place], [address], Insurance Providers Payer Name Payer Address Payer Phone Subscriber Number Group Number Insured Name Patient Relationship to Insured Coverage Start Date Coverage End Date [employer] MEDICARE PLAN [address] [address] [place] [phone] [id number] CHARLENEKERLINE Self - patient is the insured 5 [employer] [place] MEDICAID SEC TO [facility] [address] [place] [id number] [id number] KERLINE CHANG Self - patient is the insured 1 DENTAL [employer] MEDICARE [address] [address] [place] [phone] [id number] KERLINE CHANG Self - patient is the insured 5 Medical (General) History Medical History History ICD Code glaucoma diabetes mallitus multiple sclerosis hypertension
--- OUTSIDE RECORDS SUMMARY | 2025-05-09 17:09 | XMS_ITS | Encounter Summary ---
Author Organization [facility] Address [address] [facility] [place] [address] Care Team Providers Care Analysis Mgr Name Role Phone Darrius Orr MD Unavailable [phone] Darrius Orr MD Primary Care Provider [phone] Aiden Linares DPM Unavailable [phone] Kai Gutierres DO Unavailable [phone] Encounter Details Date Type Department Care Team (Late Contact Info) Description 12/10/2022 Abstract [facility] [address] [facility] [address] [place] [address] Darrius Orr MD [address] [facility] [address] [place] [address] Social History Tobacco Use Types Packs/Day Years Used Date Smoking Tobacco: Never Assessed Sex and Gender Information Value Date Recorded Sex Assigned at Not on file Legal Sex Male 6:48 PM EDT Gender Identity Not on file Sexual Orientation Not on file documented as of this encounter Plan of Treatment Upcoming Encounters Date Type Department Care Team (Late Contact Info) Description 05/25/2025 1:30 PM EDT Office Visit [facility] [address] [place] [address] Bina Faye MD [address] [place] [address] 06/06/2025 2:00 PM EST Office Visit [facility] [address] [place] [address] 07/18/2025 3:15 PM EST Procedure Visit [facility] [address] [place] [address] Susie Mary DPM [address] [place] [address] documented as of this encounter Visit Diagnoses Not on filedocumented in this encounter Care Teams Analysis Mgr Relationship Specialty Start Date End Date Darrius Orr MD [address] [place] [address] PCP - [employer] 08/04/19 Darrius Orr MD [address] [place] [address] PCP - General Internal Medicine 12/31/22 Aiden Linares DPM [address] [place] [address] Referring Physician Podiatry 10/30/23 Kai Gutierres DO 703 [facility] [address] [place] [address] Referring Physician Neurology 02/24/24 documented as of this encounter
--- OUTSIDE RECORDS SUMMARY | 2025-05-09 17:09 | XMS_ITS | Encounter Summary ---
Author Organization [facility] Address [address] [place] [address] Care Team Providers Care Gravity Prospecting Observer Helper Name Role Phone Darrius Orr MD Unavailable [phone] Darrius Orr MD Primary Care Provider [phone] Aiden Linares DPM Unavailable [phone] Kai Gutierres DO Unavailable [phone] Encounter Details Date Type Department Care Team ([facility] Contact Info) Description 01/31/2025 Telephone [facility] [phone] Darrius Orr MD [address] [facility] [address] [place] [address] Social History Tobacco Use Types [...] know he is on his way to [facility] due to h/a. * Telephone Encounter - [...] 05/25/2025 1:30 PM EDT Office Visit [facility] [address] [place] [address] Bina Faye MD [address] [place] [address] 06/06/2025 2:00 PM EST Office Visit [facility] [place] [facility] [address] [place] [address] 07/18/2025 3:15 PM EST Procedure Visit [facility] [place] [facility] [address] [place] [address] Susie Mary DPM [address] [place] [address] documented as of this encounter Visit Diagnoses Not on filedocumented in this encounter Care Teams Gravity Prospecting Observer Helper Relationship Specialty Start Date End Date Darrius Orr MD [address] [place] [address] PCP - Humana 08/04/19 Darrius Orr MD [address] [place] [address] PCP - General Internal Medicine 12/31/22 Aiden Linares DPM [address] [facility] 100 [place] [address] Referring Physician Podiatry 10/30/23 Kai Gutierres DO [address] [facility] [address] [place] [address] Referring Physician Neurology 02/24/24 documented as of this encounter
--- OUTSIDE RECORDS SUMMARY | 2025-05-09 17:09 | XMS_ITS | Encounter Summary ---
Author Organization [facility] Address [address] [place] [address] Care Team Providers Care School Janitor Name Role Phone Darrius Orr MD Unavailable [phone] Darrius Orr MD Primary Care Provider [phone] Aiden Linares DPM Unavailable [phone] Kai Gutierres DO Unavailable [phone] Encounter Details Date Type Department Care Team (Latest Contact Info) Description 01/31/2025 Results Follow-Up [facility] Internal Medicine [address] [facility] 230 [place] [address] Srikanth Horvath, LINING FOLDER [address] [facility] 230 [place] [address] Comprehensive metabolic panel Social History Tobacco Use [...] 05/25/2025 1:30 PM EDT Office Visit [facility] [address] [place] [address] Bina Faye MD [address] [place] [address] 06/06/2025 2:00 PM EST Office Visit [facility] [place] [facility] [address] [place] [address] 07/18/2025 3:15 PM EST Procedure Visit [facility] [place] [facility] [address] [place] [address] Susie Mary DPM [address] [place] [address] documented as of this encounter Visit Diagnoses Not on filedocumented in this encounter Care Teams School Janitor Relationship Specialty Start Date End Date Darrius Orr MD [address] [facility] 230 [place] [address] PCP - Humana 08/04/19 Darrius Orr MD [address] [place] [address] PCP - General Internal Medicine 12/31/22 Aiden Linares DPM [address] [facility] [address] [place] [address] Referring Physician Podiatry 10/30/23 Kai Gutierres DO [address] [facility] 353 [place] [address] Referring Physician Neurology 02/24/24 documented as of this encounter
--- OUTSIDE RECORDS SUMMARY | 2025-05-09 17:09 | XMS_ITS | Encounter Summary ---
Author Organization [facility] Address [address] [place] [address] [place] [address] Care Team Providers Care Detailer Furniture Name Role Phone Darrius Orr MD Unavailable [phone] Darrius Orr MD Primary Care Provider [phone] Aiden Linares DPM Unavailable [phone] Kai Gutierres DO Unavailable [phone] Encounter Details Date Type Department Care Team ([facility] Contact Info) Description 03/01/2024 Orders Only [facility] [place] [facility] [address] [facility] [address] [address] [place] [address] A, Unknown Practice [address] [place], [place] [phone] Social History Tobacco Use Types Packs/Day Years [...] 05/25/2025 1:30 PM EDT Office Visit [facility] [address] [place] [address] Bina Faye MD [address] [place] [address] 06/06/2025 2:00 PM EST Office Visit [facility] [place] [facility] [address] [place] [address] 07/18/2025 3:15 PM EST Procedure Visit [facility] [place] [facility] [address] [place] [address] Susie Mary DPM [address] [place] [address] documented as of this encounter Procedures Procedure [...] NEEDLE WASH (02/25/2024 8:02 AM EDT) Result [facility] Unknown Practice A LAB BLOOD ORDERABLES Final Re sult * Comprehensive metabolic panel (02/25/2024 8:02 AM EDT) Blood Venous blood specimen / Unknown Result [facility] Unknown Practice A LAB BLOOD ORDERABLES Final Re sult * Hepatic function panel (02/25/2024 8:02 AM EDT) Blood Venous blood specimen / Unknown Result [facility] Unknown Practice A LAB BLOOD ORDERABLES Final Re sult * Vitamin D 1,25 dihydroxy (02/25/2024 8:02 AM EDT) Blood Venous blood specimen / Unknown Result [facility] Unknown Practice A LAB BLOOD ORDERABLES Final Re sult * IgG (02/25/2024 8:02 AM EDT) Blood Venous blood specimen / Unknown Result [facility] Unknown Practice A LAB BLOOD ORDERABLES Final Re sult * Hemoglobin A1c (02/25/2024 8:02 AM EDT) Blood Venous blood specimen / Unknown Result [facility] Unknown Practice A LAB BLOOD ORDERABLES Final Re sult documented in this encounter Visit Diagnoses Not on filedocumented in this encounter Care Teams Detailer Furniture Relationship Specialty Start Date End Date Darrius Orr MD [address] [place] [address] PCP - Humana 08/04/19 Darrius Orr MD [address] [place] [address] PCP - General Internal Medicine 12/31/22 Aiden Linares DPM [address] [facility] 100 [place] [address] Referring Physician Podiatry 10/30/23 Kai Gutierres DO [address] [address] Referring Physician Neurology 02/24/24 documented as of this encounter
--- OUTSIDE RECORDS SUMMARY | 2025-05-09 17:09 | XMS_ITS | Encounter Summary ---
Demographics Address [address] [facility] [facility] [address] [place] [address] Mobile Phone Home Phone Email Address Preferred Language en Marital Status Unmarried Sikh Affiliation Unknown Race White Ethnic Group Not or Lati no Author Organization [facility] Address [address] [place] [address] Care Team Providers Care Frit Mixer Name Role Phone Darrius Orr MD Unavailable [phone] Darrius Orr MD Primary Care Provider [phone] Aiden Linares DPM Unavailable [phone] Kai Gutierres DO Unavailable [phone] Encounter Details Date Type Department Care Team ([facility] Contact Info) Description 07/21/2023 Orders Only [facility] [place] [facility] [address] [facility] [address] [address] [place] [id number] A, Unknown Practice [address] [place], [place] [phone] Social History Tobacco Use Types Packs/Day Years Used Date Smoking Tobacco: Every Day Cigarettes 0.3 35.8 Started: 08/04/1989 Smokeless Tobacco: Never Comments:5 or [...] 05/25/2025 1:30 PM EDT Office Visit [facility] [address] [place] [address] Bina Faye MD [address] [place] [address] 06/06/2025 2:00 PM EST Office Visit [facility] [place] [facility] [address] [place] [address] 07/18/2025 3:15 PM EST Procedure Visit [facility] [address] [place] [address] Susie Mary DPM [address] [place] [address] documented as of this encounter Procedures Procedure Name Priority Date/Time Associated Diagnosis Comments SCANNED LABS Routine 07/18/2023 10:31 AM EST documented in this encounter Results * SCANNED LABS (07/18/2023 10:31 AM EST) Unknown Practice A LAB CHG PERFORMABLES Final Re sult documented in this encounter Visit Diagnoses Not on filedocumented in this encounter Care Teams Frit Mixer Relationship Specialty Start Date End Date Darrius Orr MD [address] [place] [address] PCP - Humana 08/04/19 Darrius Orr MD [address] [place] [address] PCP - General Internal Medicine 12/31/22 Aiden Linares DPM [address] [facility] 100 [place] [address] Referring Physician Podiatry 10/30/23 Kai Gutierres DO [address] [facility] 353 [place] [address] Referring Physician Neurology 02/24/24 documented as of this encounter
--- OUTSIDE RECORDS SUMMARY | 2025-05-09 17:09 | XMS_ITS | Encounter Summary ---
Author Organization [facility] Address [address] [place] [address] Care Team Providers Care Machine Design Checker Name Role Phone Darrius Orr MD Unavailable [phone] Darrius Orr MD Primary Care Provider [phone] Aiden Linares DPM Unavailable [phone] Kai Gutierres DO Unavailable [phone] Encounter Details Date Type Department Care Team ([facility] Contact Info) Description 03/23/2025 [facility] [address] [facility] [address] [place] [address] Darrius Orr MD [address] [facility] 230 [place] [address] Basic metabolic panel Social History Tobacco Use [...] 05/25/2025 1:30 PM EDT Office Visit [facility] Eye [address] [place] [address] Bina Faye MD [address] [place] [address] 06/06/2025 2:00 PM EST Office Visit [facility] [place] [facility] [address] [place] [address] 07/18/2025 3:15 PM EST Procedure Visit [facility] [place] [facility] [address] [place] [address] Susie Mary DPM [address] [place] [address] documented as of this encounter Visit Diagnoses Not on filedocumented in this encounter Care Teams Machine Design Checker Relationship Specialty Start Date End Date Darrius Orr MD [address] [place] [address] PCP - Humana 08/04/19 Darrius Orr MD [address] [place] [address] PCP - General Internal Medicine 12/31/22 Aiden Linares DPM [address] [facility] 100 [place] [address] Referring Physician Podiatry 10/30/23 Kai Gutierres DO 703 [facility] 353 [place] [address] Referring Physician Neurology 02/24/24 documented as of this encounter
--- OUTSIDE RECORDS SUMMARY | 2025-05-09 17:09 | XMS_ITS | Encounter Summary ---
Author Organization [facility] Address [address] [place] [address] Care Team Providers Care Separator Tender Name Role Phone Darrius Orr MD Unavailable [phone] Darrius Orr MD Primary Care Provider [phone] Aiden Linares DPM Unavailable [phone] Kai Gutierres DO Unavailable [phone] Reason for Visit * Reason Onset Date Comments Med Refill 04/28/2025 Encounter Details Date Type Department Care Team (Late st Contact Info) Description 04/28/2025 Refill [facility] Internal Medicine [address] [facility] [address] [place] [address] Darrius Orr MD [address] [facility] 230 [place] [address] Cervical paraspinal muscle spasm Social History Tobacco Use Types Packs/Day Years [...] 05/25/2025 1:30 PM EDT Office Visit [facility] Eye [address] [place] [address] Bina Faye MD [address] [place] [address] 06/06/2025 2:00 PM EST Office Visit [facility] [place] [facility] [address] [place] [address] 07/18/2025 3:15 PM EST Procedure Visit [facility] [place] [facility] [address] [place] [address] Susie Mary DPM [address] [place] [address] documented as of this encounter Visit Diagnoses Diagnosis Cervical paraspinal muscle spasm Spasm of muscle documented in this encounter Care Teams Separator Tender Relationship Specialty Start Date End Date Darrius Orr MD [address] [place] [address] PCP - Humana 08/04/19 Darrius Orr MD [address] [place] [address] PCP - General Internal Medicine 12/31/22 Aiden Linares DPM [address] [place] [address] Referring Physician Podiatry 10/30/23 Kai Gutierres DO [address] [address] Referring Physician Neurology 02/24/24 documented as of this encounter
--- OUTSIDE RECORDS SUMMARY | 2025-05-09 17:09 | XMS_ITS | Encounter Summary ---
Author Organization [facility] Address [address] [facility] [place] [address] Care Team Providers Care Printing Pressman Name Role Phone Darrius Orr MD Unavailable [phone] Darrius Orr MD Primary Care Provider [phone] Aiden Linares DPM Unavailable [phone] Kai Gutierres DO Unavailable [phone] Encounter Details Date Type Department Care Team ([facility] Contact Info) Description 12/24/2024 Orders Only [facility] [place] [facility] [address] [facility] [address] [place] [address] Unallocated, Noms Provider, [address] [place] [address] Social History Tobacco Use Types Packs/Day Years [...] 05/25/2025 1:30 PM EDT Office Visit [facility] [address] [place] [address] Bina Faye MD [address] [place] [address] 06/06/2025 2:00 PM EST Office Visit [facility] [place] [facility] [address] [place] [address] 07/18/2025 3:15 PM EST Procedure Visit [facility] [address] [place] [address] Susie Mary DPM [address] [place] [address] documented as of this encounter Procedures Procedure [...] on filedocumented in this encounter Care Teams Printing Pressman Relationship Specialty Start Date End Date Darrius Orr MD [address] [place] [address] PCP - Humana 08/04/19 Darrius Orr MD [address] [place] [address] PCP - General Internal Medicine 12/31/22 Aiden Linares DPM [address] [facility] 100 [place] [address] Referring Physician Podiatry 10/30/23 Kai Gutierres DO 703 [facility] 353 [place] [address] Referring Physician Neurology 02/24/24 documented as of this encounter
--- OUTSIDE RECORDS SUMMARY | 2025-05-09 17:09 | XMS_ITS | Encounter Summary ---
Author Organization [facility] Address [address] [place] [address] Care Team Providers Care Payment Specialist Name Role Phone Darrius Orr MD Unavailable [phone] Darrius Orr MD Primary Care Provider [phone] Aiden Linares DPM Unavailable [phone] Kai Gutierres DO Unavailable [phone] Encounter Details Date Type Department Care Team ([facility] Contact Info) Description 07/19/2023 Telephone [facility] [place] [facility] [address] [facility] [address] [place] [address] Darrius Orr MD [address] [facility] 230 [place] [address] Social History Tobacco Use Types Packs/Day Years [...] 71: PCP: Adela Gross: Usha caldwell/[facility] [phone]: Critial lab of glucose @ 406. Teams to Dr. Orr. documented in this encounter Plan of Treatment Upcoming Encounters Date Type Department Care Team (Late st Contact Info) Description 05/25/2025 1:30 PM EDT Office Visit [facility] [address] [place] [address] Bina Faye MD [address] [place] [address] 06/06/2025 2:00 PM EST Office Visit [facility] [place] [facility] [address] [place] [address] 07/18/2025 3:15 PM EST Procedure Visit [facility] [place] [facility] [address] [place] [address] Susie Mary DPM [address] [place] [address] documented as of this encounter Visit Diagnoses Not on filedocumented in this encounter Care Teams Payment Specialist Relationship Specialty Start Date End Date Darrius Orr MD [address] [place] [address] PCP - Humana 08/04/19 Darrius Orr MD [address] [place] [address] PCP - General Internal Medicine 12/31/22 Aiden Linares DPM [address] [facility] 100 [place] [address] Referring Physician Podiatry 10/30/23 Kai Gutierres DO 703 [facility] 353 [place] [address] Referring Physician Neurology 02/24/24 documented as of this encounter
--- OUTSIDE RECORDS SUMMARY | 2025-05-09 17:09 | XMS_ITS | Encounter Summary ---
Author Organization [facility] Address [address] [place] [address] Care Team Providers Care Applications Instructor Name Role Phone Darrius Orr MD Unavailable [phone] Darrius Orr MD Primary Care Provider [phone] Aiden Linares DPM Unavailable [phone] Kai Gutierres DO Unavailable [phone] Reason for Referral * Outpatient Surgery (Routine) - Authorized Specialty Diagnoses / Procedures Referred By Contac t Referred To Contact Ophthalmology Diagnoses Age-related nuclear cataract of both eyes Procedures FL OFFICE/OUTPATIENT [facility] MDM 60 MINUTES Bina Faye MD [address] [place] [address] Phone: tel: fax: Bina Faye MD [address] [place] [address] Phone: tel: fax: Referral ID Status Reason Start Date Expiration Date Visits Requested Visits Authorized [id number] Authorized Perform Procedure 04/14/2025 10/11/2025 2 2 Encounter Details Date Type Department Care Team ([facility] Contact Info) Description 04/14/2025 Orders Only [facility] [address] [place] [address] Bina Faey MD [address] [place] [address] Age-related nuclear cataract of both [...] 05/25/2025 1:30 PM EDT Office Visit [facility] [address] [place] [address] Bina Faye MD [address] [place] [address] 06/06/2025 2:00 PM EST Office Visit [facility] [place] [facility] [address] [place] [address] 07/18/2025 3:15 PM EST Procedure Visit [facility] [facility] [address] [place] [address] Susie Mary DPM [address] [place] [address] Scheduled Referrals Name Type Priority Associated Diagnoses Order Schedule Ambulatory referral to Ophthalmology Outpatient Referral Routine Age-related nuclear cataract of both eyes Expected: 04/14/2025 (Approximate), Expires: 10/12/2025 documented as of this encounter Visit Diagnoses Diagnosis Age-related nuclear cataract of both eyes documented in this encounter Care Teams Applications Instructor Relationship Specialty Start Date End Date Darrius Orr MD [address] [place] [address] PCP - Humana 08/04/19 Darrius Orr MD [address] [place] [address] PCP - General Internal Medicine 12/31/22 Aiden Linares DPM [address] [facility] [address] [place] [address] Referring Physician Podiatry 10/30/23 Kai Gutierres DO 703 [facility] 353 [place] [address] Referring Physician Neurology 02/24/24 documented as of this encounter
--- OUTSIDE RECORDS SUMMARY | 2025-05-09 17:09 | XMS_ITS | Encounter Summary ---
Author Organization [facility] Address [address] [facility] [address] [facility] [address] [place] [address] Care Team Providers Care Hollock Maker Name Role Phone Darrius Orr MD Unavailable [phone] Darrius Orr MD Primary Care Provider [phone] Aiden Linares DPM Unavailable [phone] Kai Gutierres DO Unavailable [phone] Encounter Details Date Type Department Care Team ([facility] Contact Info) Description 05/19/2024 Orders Only [facility] [place] [facility] [address] [facility] [address] [place] [address] A, Unknown Practice [address] [place], [place] [phone] Social History Tobacco Use Types Packs/Day Years [...] 05/25/2025 1:30 PM EDT Office Visit [facility] [address] [place] [address] Bina Faye MD [address] [place] [address] 06/06/2025 2:00 PM EST Office Visit [facility] [address] [place] [address] 07/18/2025 3:15 PM EST Procedure Visit [facility] [address] [place] [address] Susie Mary DPM [address] [place] [address] documented as of this encounter Procedures Procedure [...] on filedocumented in this encounter Care Teams Hollock Maker Relationship Specialty Start Date End Date Darrius Orr MD [address] [place] [address] PCP - Humana 08/04/19 Darrius Orr MD [address] [place] [address] PCP - General Internal Medicine 12/31/22 Aiden Linares DPM [address] [place] [address] Referring Physician Podiatry 10/30/23 Kai Gutierres DO 703 [facility] 353 [place] [address] Referring Physician Neurology 02/24/24 documented as of this encounter
--- OUTSIDE RECORDS SUMMARY | 2025-05-09 17:09 | XMS_ITS | Encounter Summary ---
Author Organization [facility] Address [address] [place] [address] Care Team Providers Care Fiscal Services Manager Name Role Phone Darrius Orr MD Unavailable [phone] Darrius Orr MD Primary Care Provider [phone] Aiden Linares DPM Unavailable [phone] Kai Gutierres DO Unavailable [phone] Reason for Visit * Reason Onset Date Comments concerns 04/27/2025 Encounter Details Date Type Department Care Team ([facility] st Contact Info) Description 04/27/2025 Telephone [facility] [place] [facility] [address] [facility] [address] [place] [address] Darrius Orr MD [address] [facility] [address] [place] [address] concerns Social History Tobacco Use Types Packs/Day Years [...] Telephone Encounter - Noa Hansen LPN - 04/27/2025 4:09 PM EDT Called back again at 3:57, His sugar is going down it is 451, he had the shakes really bad. Can't feel his feet, just pins and needles, his headache is getting better since he took the Soma he is just really worried about his sugar and the shakes * Telephone Encounter - Darrius Orr MD - 04/27/2025 3:41 PM EDT It is fine that he took the insulin. He will just need to keep an eye on it that it does not drop too low. Check BMP to assess kidney function tomorrow or Friday. * Telephone Encounter - Noa Hansen LPN - 04/27/2025 3:22 PM EDT Pt called back at 3:15 to say that his head a back hurt so he took a Soma and one of the pills thatthe doctor at [facility] gave him? He also took it blood sugar, machine just said HIGH so he said that means it is over 500 so he took 40 units of insulin and wanted to make sure that was the right thing * Telephone Encounter - Noa Hansen LPN - 04/27/2025 3:03 PM EDT Pt called to say that he was in the ER again and got a Toradol shot but he thinks the Toradol is killing my Kidneys when he goes anything hardly comes out and he feels the constant need to go. His back hurts where his kidneys are. He is falling apart his neck, head and arms hurt. He doesn't want to take the Xanax because it makes him not feel right He see's Rheumatology on the and the . He see's the knee specialist soon to get his knee surgery scheduled. His BP is running high usually the top number is over 200 and it has been as high at 224 with the bottom number being around the 116 glenn. He thinks he will have a stroke and he is losing his shit documented in this encounter Plan of Treatment Upcoming Encounters Date Type Department Care Team (Late st Contact Info) Description 05/25/2025 1:30 PM EDT Office Visit [facility] [address] [place] [address] Bina Faye MD [address] [place], [place] [address] 06/06/2025 2:00 PM EST Office Visit [facility] [place] [facility] [address] [place] [address] 07/18/2025 3:15 PM EST Procedure Visit [facility] [address] [place] [address] Susie Mary DPM [address] [place] [address] documented as of this encounter Visit Diagnoses Not on filedocumented in this encounter Care Teams Fiscal Services Manager Relationship Specialty Start Date End Date Darrius Orr MD [address] [place] [address] PCP - Humana 08/04/19 Darrius Orr MD [address] [place] [address] PCP - General Internal Medicine 12/31/22 Aiden Linares DPM [address] [facility] 100 [place] [address] Referring Physician Podiatry 10/30/23 Kai Gutierres DO [address] [phone] Referring Physician Neurology 02/24/24 documented as of this encounter
--- OUTSIDE RECORDS SUMMARY | 2025-05-09 17:09 | XMS_ITS | Encounter Summary ---
Author Organization [facility] Address [address] [facility] [place] [address] Care Team Providers Care Comber Setter Name Role Phone Darrius Orr MD Unavailable [phone] Darrius Orr MD Primary Care Provider [phone] Aiden Linares DPM Unavailable [phone] Kai Gutierres DO Unavailable [phone] Encounter Details Date Type Department Care Team ([facility] Contact Info) Description 04/21/2024 Orders Only [facility] [address] [address] [place] [address] A, Unknown Practice [address] [place], [place] [address] Social History Tobacco Use Types Packs/Day Years [...] 05/25/2025 1:30 PM EDT Office Visit [facility] [address] [place] [address] Bina Faye MD [address] [place] [address] 06/06/2025 2:00 PM EST Office Visit [facility] [address] [place] [address] 07/18/2025 3:15 PM EST Procedure Visit [facility] [address] [place] [address] Susie Mary DPM [address] [place] [address] documented as of this encounter Procedures Procedure [...] on filedocumented in this encounter Care Teams Comber Setter Relationship Specialty Start Date End Date Darrius Orr MD [address] [place] [address] PCP - Humana 08/04/19 Darrius Orr MD [address] [place] [address] PCP - General Internal Medicine 12/31/22 Aiden Linares DPM [address] [facility] 100 [place] [address] Referring Physician Podiatry 10/30/23 Kai Gutierres DO [address] [address] Referring Physician Neurology 02/24/24 documented as of this encounter
--- OUTSIDE RECORDS SUMMARY | 2025-05-09 17:09 | XMS_ITS | Encounter Summary ---
Author Organization [facility] Address [address] [place] [address] Care Team Providers Care Tie Up Worker Name Role Phone Darrius Orr MD Unavailable [phone] Darrius Orr MD Primary Care Provider [phone] Aiden Linares DPM Unavailable [phone] Kai Gutierres DO Unavailable [phone] Reason for Visit * Reason Onset Date Comments Error (VOID this visit) 03/11/2024 Encounter Details Date Type Department Care Team ([facility] st Contact Info) Description 03/11/2024 Telephone [facility] [address] [facility] [address] [place] [address] Darrius Orr MD [address] [facility] 230 [place] [address] Error (VOID this visit) Social History Tobacco [...] 05/25/2025 1:30 PM EDT Office Visit [facility] [address] [place] [address] Bina Faye MD [address] [place] [address] 06/06/2025 2:00 PM EST Office Visit [facility] [place] [facility] [address] [place] [address] 07/18/2025 3:15 PM EST Procedure Visit [facility] [place] [facility] [address] [place] [address] Susie Mary DPM [address] [place] [address] documented as of this encounter Visit Diagnoses Not on filedocumented in this encounter Care Teams Tie Up Worker Relationship Specialty Start Date End Date Darrius Orr MD [address] [place] [address] PCP - Humana 08/04/19 Darrius Orr MD [address] [place] [address] PCP - General Internal Medicine 12/31/22 Aiden Linares DPM [address] [place] [address] Referring Physician Podiatry 10/30/23 Kai Gutierres DO [address] [address] Referring Physician Neurology 02/24/24 documented as of this encounter
--- OUTSIDE RECORDS SUMMARY | 2025-05-09 17:09 | XMS_ITS | Encounter Summary ---
Author Organization [facility] Address [address] [place] [address] Care Team Providers Care National Account Representative Name Role Phone Darrius Orr MD Unavailable [phone] Darrius Orr MD Primary Care Provider [phone] Aiden iLnares DPM Unavailable [phone] Kai Gutierres DO Unavailable [phone] Encounter Details Date Type Department Care Team (Late Contact Info) Description 05/05/2025 Bamboo flowsheet [facility] [address] [place] [address] Bina Faye MD [address] [place] [address] Social History Tobacco Use Types Packs/Day Years [...] 05/25/2025 1:30 PM EDT Office Visit [facility] [address] [place] [address] Bina Faye MD [address] [place] [address] 06/06/2025 2:00 PM EST Office Visit [facility] [place] [facility] [address] [place] [address] 07/18/2025 3:15 PM EST Procedure Visit [facility] [address] [place] [address] Susie Mary DPM [address] [place] [address] documented as of this encounter Visit Diagnoses Not on filedocumented in this encounter Care Teams National Account Representative Relationship Specialty Start Date End Date Darrius Orr MD [address] [place] [address] PCP - Humana 08/04/19 Darrius Orr MD [address] [place] [address] PCP - General Internal Medicine 12/31/22 Aiden Linares DPM [address] [place] [address] Referring Physician Podiatry 10/30/23 Kai Gutierres DO [address] [address] Referring Physician Neurology 02/24/24 documented as of this encounter
--- OUTSIDE RECORDS SUMMARY | 2025-05-09 17:09 | XMS_ITS | Encounter Summary ---
Author Organization [facility] Address [address] [facility] [place] [address] Care Team Providers Care Dock Operations Supervisor Name Role Phone Darrius Orr MD Unavailable [phone] Darrius Orr MD Primary Care Provider [phone] Aiden Linares DPM Unavailable [phone] Kai Gutierres DO Unavailable [phone] Encounter Details Date Type Department Care Team ([facility] Contact Info) Description 03/15/2024 Orders Only [facility] [place] [facility] [address] [place] [address] A, Unknown Practice [address] [place], [place] [address] Social History Tobacco Use Types Packs/Day Years [...] 05/25/2025 1:30 PM EDT Office Visit [facility] [address] [place] [address] Bina Faye MD [address] [place] [address] 06/06/2025 2:00 PM EST Office Visit [facility] [address] [place] [address] 07/18/2025 3:15 PM EST Procedure Visit [facility] [address] [place] [address] Susie Mary DPM [address] [place] [address] documented as of this encounter Procedures Procedure [...] filedocumented in this encounter Care Teams Dock Operations Supervisor Relationship Specialty Start Date End Date Darrius Orr MD [address] [place] [address] PCP - Humana 08/04/19 Darrius Orr MD [address] [place] [address] PCP - General Internal Medicine 12/31/22 Aiden Linares DPM [address] [facility] 100 [place] [address] Referring Physician Podiatry 10/30/23 Kai Gutierres DO [address] [phone] Referring Physician Neurology 02/24/24 documented as of this encounter
--- OUTSIDE RECORDS SUMMARY | 2025-05-09 17:09 | XMS_ITS | Encounter Summary ---
Author Organization [facility] Address [address] [facility] [place] [address] Care Team Providers Care Physician Ophthalmologist Name Role Phone Darrius Orr MD Unavailable [phone] Darrius Orr MD Primary Care Provider [phone] Aiden Linares DPM Unavailable [phone] Kai Gutierres DO Unavailable [phone] Encounter Details Date Type Department Care Team ([facility] Contact Info) Description 11/04/2024 External Result Encounter [facility] External Department Unsolicited Darrius Orr MD [address] [facility] [address] [place] [address] Social History Tobacco Use Types Packs/Day Years [...] 05/25/2025 1:30 PM EDT Office Visit [facility] [address] [place] [address] Bina Faye MD [address] [place] [address] 06/06/2025 2:00 PM EST Office Visit [facility] [place] [facility] [address] [place] [address] 07/18/2025 3:15 PM EST Procedure Visit [facility] [place] [facility] [address] [place] [address] Susie Mary DPM [address] [place] [address] documented as of this encounter Procedures Procedure [...] Delio Nevarez M.D.11/04/2024 4:08 PM Dictation Location: [facility]--20 Transcribed By: JOSEPH 11/04/24 1608 Dictated By: Delio Nevarez DO 11/04/24 1606 Signed By: <Electronically signed by Delio Nevarez DO in OV> 11/04/24 1608 Narrative 11/04/2024 4:11 PM EDT [facility] [place] [id number] Nuclear Medicine Report Signed Patient: Alex Dyer MR#: [id number] 73 : 1970 Acct:[id number] Age/Sex: 54 / M ADM Date: 11/04/24 Loc: [place] Room: Type: [facility] CLI Attending Dr: Darrius Orr [...] Procedure Note Radiology, Radiologist, MD - 11/04/2024 [place] [address] Nuclear Medicine Report Signed Patient: Alex Dyer JMR#: [id number] 73 : 1970Acct:[id number] Age/Sex: 54 / MADM Date: 11/04/24 Loc: [place] Room:Type: [facility] CLI Attending Dr: Darrius Orr [...] Delio Nevarez M.D.11/04/2024 4:08 PM Dictation Location: [facility]-20 Transcribed By: PWS 11/04/24 1608 Dictated By: Delio Nevarez DO 11/04/24 1606 Signed By: <Electronically signed by Dleio Nevarez DO in OV> 11/04/24 1608 Darrius Orr MD IM [place] PROCEDURES Final Result documented in this encounter Visit Diagnoses Not on filedocumented in this encounter Care Teams Physician Ophthalmologist Relationship Specialty Start Date End Date Darrius Orr MD [address] [facility] 230 [place] [address] PCP - Humana 08/04/19 Darrius Orr MD [address] [place] [address] PCP - General Internal Medicine 12/31/22 Aiden Linares DPM [address] [facility] [place] [address] Referring Physician Podiatry 10/30/23 Kai Gutierres DO [address] [facility] [address] [place] [address] Referring Physician Neurology 02/24/24 documented as of this encounter
--- OUTSIDE RECORDS SUMMARY | 2025-05-09 17:09 | XMS_ITS | Encounter Summary ---
Author Organization [facility] Address [address] [facility] [place] [address] Care Team Providers Care Veterinary Bacteriologist Name Role Phone Darrius Orr MD Unavailable [phone] Darrius Orr MD Primary Care Provider [phone] Aiden Linares DPM Unavailable [phone] Kai Gutierres DO Unavailable [phone] Encounter Details Date Type Department Care Team ([facility] Contact Info) Description 12/10/2024 Orders Only [facility] [address] [facility] [address] [place] [address] Unallocated, Noms Provider, [address] [place] [address] Social History Tobacco Use Types Packs/Day Years [...] 05/25/2025 1:30 PM EDT Office Visit [facility] [address] [place] [address] Bina Faye MD [address] [place] [address] 06/06/2025 2:00 PM EST Office Visit [facility] [place] [facility] [address] [place] [address] 07/18/2025 3:15 PM EST Procedure Visit [facility] [place] [facility] [address] [place] [address] Susie Mary DPM [address] [place] [address] documented as of this encounter Procedures Procedure Name Priority Date/Time Associated Diagnosis Comments [place] Routine 12/02/2024 11:11 AM EDT CBC [...] S Final Result * [place]PERFICIAL W[place] C[place] (12/02/2024 11:11 AM EDT) Topography unknown / Unknown us Noms Provider Unallocated LAB MICROBIOLOGY - GENERAL ORDERABLES Final Result documented in this encounter Visit Diagnoses Not on filedocumented in this encounter Care Teams Veterinary Bacteriologist Relationship Specialty Start Date End Date Darrius Orr MD [address] [place] [address] PCP - Humana 08/04/19 Darrius Orr MD [address] [place] [address] PCP - General Internal Medicine 12/31/22 Aiden Linares DPM [address] [place] [address] Referring Physician Podiatry 10/30/23 Kai Gutierres DO [address] [facility] [address] [place] [address] Referring Physician Neurology 02/24/24 documented as of this encounter
--- OUTSIDE RECORDS SUMMARY | 2025-05-09 17:09 | XMS_ITS | Encounter Summary ---
Author Organization [facility] Address [address] [place] [address] Care Team Providers Care Financial Underwriter Name Role Phone Darrius Orr MD Unavailable [phone] Darrius Orr MD Primary Care Provider [phone] Aiden Linares DPM Unavailable [phone] Kai Gutierres DO Unavailable [phone] Encounter Details Date Type Department Care Team ([facility] Contact Info) Description 02/16/2025 Results Follow-Up [facility] Internal Medicine [address] [facility] [address] [place] [address] Adela Gross, EMMA [address] [facility] 230 [place] [address] MR brain wo contrast Social History Tobacco [...] 05/25/2025 1:30 PM EDT Office Visit [facility] [address] [place] [address] Bina Faye MD [address] [place] [address] 06/06/2025 2:00 PM EST Office Visit [facility] [place] [facility] [address] [place] [address] 07/18/2025 3:15 PM EST Procedure Visit [facility] [place] [facility] [address] [place] [address] Susie Mary DPM [address] [place] [address] documented as of this encounter Visit Diagnoses Not on filedocumented in this encounter Care Teams Financial Underwriter Relationship Specialty Start Date End Date Darrius Orr MD [address] [place] [address] PCP - Humana 08/04/19 Darrius Orr MD [address] [place] [address] PCP - General Internal Medicine 12/31/22 Aiden Linares DPM [address] [place] [address] Referring Physician Podiatry 10/30/23 Kai Gutierres DO [address] [address] Referring Physician Neurology 02/24/24 documented as of this encounter
--- OUTSIDE RECORDS SUMMARY | 2025-05-09 17:09 | XMS_ITS | Encounter Summary ---
Author Organization [facility] Address [address] [place] [address] Care Team Providers Care Inspector Assemblies And Installations Name Role Phone Darrius Orr MD Unavailable [phone] Darrius Orr MD Primary Care Provider [phone] Aiden Linares DPM Unavailable [phone] Kai Gutierres DO Unavailable [phone] Encounter Details Date Type Department Care Team ([facility] Contact Info) Description 04/29/2025 Clinisync Result Encounter NOMS External Department Unsolicited Provider, Generic External Data Social History Tobacco Use Types Packs/Day Years [...] 1:30 PM EDT Office Visit [facility] [place] [facility] [address] [place] [address] Bina Faye MD [address] [place] [address] 06/06/2025 2:00 PM EST Office Visit [facility] [place] [facility] [address] [place] [address] 07/18/2025 3:15 PM EST Procedure Visit [facility] [place] [facility] [address] [place] [address] Susie Mary DPM [address] [place] [address] documented as of this encounter Procedures Procedure Name Priority Date/Time Associated Diagnosis Comments [place]INE CULTURE - [facility] Routine 04/29/2025 3:40 PM EDT documented in this encounter Results * [place]INE CULTURE - [facility] (04/29/2025 3:40 PM EDT) [facility] URINE CULTURE - [facility] Urine Culture - [facility] <9,000 colonies/ml mixed bacterial skin contaminants [facility]INE CULTURE - [facility] 2 Days [facility] C[facility] - [facility] - [facility] Testing performed at [facility] URINE CULTURE - [facility] [address] [place] [address] [facility] 04/29/2025 3:40 PM EDT 04/29/2025 3:48 PM EDT Narrative [facility] - 05/01/2025 2:42 PM EDT us Generic External Data Provider LAB BLOOD ORDERAB LES Final Result [facility] documented in this encounter Visit Diagnoses Not on filedocumented in this encounter Care Teams Inspector Assemblies And Installations Relationship Specialty Start Date End Date Darrius Orr MD [address] [facility] 230 [place] [address] PCP - Humana 08/04/19 Darrius Orr MD [address] [place] [address] PCP - General Internal Medicine 12/31/22 Aiden Linares DPM [address] [facility] 100 [place] [address] Referring Physician Podiatry 10/30/23 Kai Gutierres DO [address] [facility] 353 [place] [address] Referring Physician Neurology 02/24/24 documented as of this encounter
--- OUTSIDE RECORDS SUMMARY | 2025-05-09 17:09 | XMS_ITS | Encounter Summary ---
Author Organization [facility] Address [address] [facility] [place] [address] Care Team Providers Care Chief Nursing Executive Name Role Phone Darrius Orr MD Unavailable [phone] Darrius Orr MD Primary Care Provider [phone] Aiden Linares DPM Unavailable [phone] Kai Gutierres DO Unavailable [phone] Encounter Details Date Type Department Care Team ([facility] Contact Info) Description 12/09/2024 Orders Only [facility] [place] [facility] [address] [facility] [address] [place] [address] Darrius Orr MD [address] [facility] 230 [place] [address] Social History Tobacco Use Types Packs/Day Years [...] 05/25/2025 1:30 PM EDT Office Visit [facility] [address] [place] [address] Bina Faye MD [address] [place] [address] 06/06/2025 2:00 PM EST Office Visit [facility] [place] [facility] [address] [place] [address] 07/18/2025 3:15 PM EST Procedure Visit [facility] [address] [place] [address] Susie Mary DPM [address] [place] [address] documented as of this encounter Visit Diagnoses Not on filedocumented in this encounter Care Teams Chief Nursing Executive Relationship Specialty Start Date End Date Darrius Orr MD [address] [place] [address] PCP - Humana 08/04/19 Darrius Orr MD [address] [place] [address] PCP - General Internal Medicine 12/31/22 Aiden Linares DPM [address] [place] [address] Referring Physician Podiatry 10/30/23 Kai Gutierres DO [address] [address] Referring Physician Neurology 02/24/24 documented as of this encounter
--- OUTSIDE RECORDS SUMMARY | 2025-05-09 17:09 | XMS_ITS | Encounter Summary ---
Author Organization [facility] Address [address] [facility] [place] [address] Care Team Providers Care Director Of Physiotherapy Services Name Role Phone Darrius Orr MD Unavailable [phone] Darrius Orr MD Primary Care Provider [phone] Aiden Linares DPM Unavailable [phone] Kai Gutierres DO Unavailable [phone] Encounter Details Date Type Department Care Team (Late st Contact Info) Description 03/07/2025 Orders Only [facility] [address] [facility] [address] [place] [address] Bhavesh Reveles, DO [address] [place] [address] Social History Tobacco Use Types Packs/Day Years [...] 05/25/2025 1:30 PM EDT Office Visit [facility] [address] [place] [address] Bina Faye MD [address] [place] [address] 06/06/2025 2:00 PM EST Office Visit [facility] [place] [facility] [address] [place] [address] 07/18/2025 3:15 PM EST Procedure Visit [facility] [place] [facility] [address] [place] [address] Susie Mary DPM [address] [place] [address] documented as of this encounter Procedures Procedure Name Priority Date/Time Associated Diagnosis Comments GENERAL PATHOLOGY Routine 02/28/2025 2:53 PM EDT documented in this encounter Results * GENERAL PATHOLOGY (02/28/2025 2:53 PM EDT) Bhavesh Reveles DO [facility] Final Resul t documented in this encounter Visit Diagnoses Not on filedocumented in this encounter Care Teams Director Of Physiotherapy Services Relationship Specialty Start Date End Date Darrius Orr MD [address] [place] [address] PCP - [employer] 08/04/19 Darrius Orr MD [address] [place] [address] PCP - General Internal Medicine 12/31/22 Aiden Linares DPM [address] [facility] [address] [place] [address] Referring Physician Podiatry 10/30/23 Kai Gutierres DO [address] [facility] [address] [place] [address] Referring Physician Neurology 02/24/24 documented as of this encounter
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
--- OUTSIDE RECORDS SUMMARY | 2025-05-09 17:09 | XMS_ITS | Encounter Summary ---
Author Organization [facility] Address [address] [facility] [place] [address] Care Team Providers Care Benefits Technician Name Role Phone Darrius Orr MD Unavailable [phone] Darrius Orr MD Primary Care Provider [phone] Aiden Linares DPM Unavailable [phone] Kai Gutierres DO Unavailable [phone] Encounter Details Date Type Department Care Team ([facility] Contact Info) Description 05/05/2025 Telephone [facility] [place] [facility] [address] [facility] [address] [place] [address] Darrius Orr MD [address] [facility] [address] [place] [address] Social History Tobacco Use Types Packs/Day Years [...] Telephone Encounter - Darci Montgomery MA - 05/05/2025 4:55 PM EDT Patient informed of the below information * Telephone Encounter - Darrius Orr MD - 05/05/2025 4:31 PM EDT Please call and tell him I sent in a refill of the Percocet to [facility]. He would try that, * Telephone Encounter - Bina Small - 05/05/2025 4:15 PM EDT Pt c/o migraine started today after seeing monotype operator. Pt has takien 1 soma and ibuprofen 800mg, pt is seeing neuro tomorrow. Pt is wondeing if anything else could be done? documented in this encounter Plan of Treatment Upcoming Encounters Date Type Department Care Team (Late st Contact Info) Description 05/25/2025 1:30 PM EDT Office Visit [facility] [address] [place] [address] Bina Faye MD [address] [place] [address] 06/06/2025 2:00 PM EST Office [facility] [address] [place] [address] 07/18/2025 3:15 PM EST Procedure Visit [facility] [place] [facility] [address] [place] [address] Susie Mary DPM [address] [place] [address] documented as of this encounter Visit Diagnoses Not on filedocumented in this encounter Care Teams Benefits Technician Relationship Specialty Start Date End Date Darrius Orr MD [address] [place] [address] PCP - [employer] 08/04/19 Darrius Orr MD [address] [place] [address] PCP - General Internal Medicine 12/31/22 Aiden Linares DPM [address] [place] [address] Referring Physician Podiatry 10/30/23 Kai Gutierres DO [address] [facility] [address] [place] [address] Referring Physician Neurology 02/24/24 documented as of this encounter
--- OUTSIDE RECORDS SUMMARY | 2025-05-09 17:09 | XMS_ITS | Encounter Summary ---
Author Organization [facility] Address [address] [facility] [place] [address] Care Team Providers Care Inspector Hairspring Name Role Phone Darrius Orr MD Unavailable [phone] Darrius Orr MD Primary Care Provider [phone] Aiden Linares DPM Unavailable [phone] Kai Gutierres DO Unavailable [phone] Encounter Details Date Type Department Care Team (Late Contact Info) Description 05/02/2025 Orders Only [facility] [place] [facility] [address] [facility] [address] [place] [address] Unallocated, N[facility] Provider, [address] [place] [address] Social History Tobacco Use Types Packs/Day Years [...] 05/25/2025 1:30 PM EDT Office Visit [facility] [address] [place] [address] Bina Faye MD [address] [place] [address] 06/06/2025 2:00 PM EST Office [facility] [address] [place] [address] 07/18/2025 3:15 PM EST Procedure Visit [facility] [address] [place] [address] Susie Mary DPM [address] [place] [address] documented as of this encounter Procedures Procedure Name Priority Date/Time Associated Diagnosis Comments CT HEAD FOR BRAINLAB W/O CONTRAST Routine 04/29/2025 1:[address] FACIAL BONES W AND WO IV CONTRAST Routine 04/29/2025 1:[address] ANGIO HEAD NECK Routine 04/29/2025 1:23 PM EDT XR CHEST 1 VIEW Routine 04/29/2025 1:15 PM EDT documented in this encounter Results * CT HEAD FOR BRAINLAB W/O CONTRAST (04/29/2025 1:30 PM EDT) Anatomical Region Laterality Modality Radiographic Jacklyn ging us [facility] Provider Unallocated IMG XR PROCEDURES F inal Result * CT facial bones w and wo IV contrast (04/29/2025 1:28 PM EDT) Anatomical Region Laterality Modality Head, Neck, Facial bones Compute d Tomography us [facility] Provider Unallocated MD IMG CT PROCEDURES F inal Result * CT angiogram head and neck (04/29/2025 1:23 PM EDT) Anatomical Region Laterality Modality Head, Neck Computed Tomogra phy us [facility] Provider Unallocated MD IMG CT PROCEDURES F inal Result * XR chest 1 view (04/29/2025 1:15 PM EDT) Anatomical Region Laterality Modality Chest Radiographic Jacklyn ging us [facility] Provider Unallocated MD IMG XR PROCEDURES F inal Result documented in this encounter Visit Diagnoses Not on filedocumented in this encounter Care Teams Inspector Hairspring Relationship Specialty Start Date End Date Darrius Orr MD [address] [place] [address] PCP - [employer] 08/04/19 Darrius Orr MD [address] [place] [address] PCP - General Internal Medicine 12/31/22 Aiden Linares DPM [address] [place] [address] Referring Physician Podiatry 10/30/23 Kai Gutierres DO [address] [facility] [address] [place] [address] Referring Physician Neurology 02/24/24 documented as of this encounter
--- OUTSIDE RECORDS SUMMARY | 2025-05-09 17:10 | XMS_ITS | Encounter Summary ---
Author Organization [facility] Address [address] [facility] [place] [address] Care Team Providers Care Spray Gun Operator Name Role Phone Darrius Orr MD Unavailable [phone] Darrius Orr MD Primary Care Provider [phone] Aiden Linares DPM Unavailable [phone] Kai Gutierres DO Unavailable [phone] Encounter Details Date Type Department Care Team (Late Contact Info) Description 01/22/2023 Abstract [facility] [address] [facility] [address] [place] [address] Darrius Orr MD [address] [facility] [address] [place] [address] Social History Tobacco Use Types Packs/Day Years Used Date Smoking Tobacco: Every Day Cigarettes 0.5 35.8 Started: 08/04/1989 Smokeless Tobacco: Never Comments:5 [...] 05/25/2025 1:30 PM EDT Office Visit [facility] [address] [place] [address] Bina Faye MD [address] [place] [address] 06/06/2025 2:00 PM EST Office Visit [facility] [place] [facility] [address] [place] [address] 07/18/2025 3:15 PM EST Procedure Visit [facility] [address] [place] [address] Susie Mary DPM [address] [place] [address] documented as of this encounter Visit Diagnoses Not on filedocumented in this encounter Care Teams Spray Gun Operator Relationship Specialty Start Date End Date Darrius Orr MD [address] [place] [address] PCP - [employer] 08/04/19 Darrius Orr MD [address] [place] [address] PCP - General Internal Medicine 12/31/22 Aiden Linares DPM [address] [place] [address] Referring Physician Podiatry 10/30/23 Kai Gutierres DO [address] [facility] [address] [place] [address] Referring Physician Neurology 02/24/24 documented as of this encounter
--- OUTSIDE RECORDS SUMMARY | 2025-05-09 17:10 | XMS_ITS | Encounter Summary ---
Author Organization [facility] Address [address] [facility] [place] [address] Care Team Providers Care Buffer Nickel Name Role Phone Darrius Orr MD Unavailable [phone] Darrius Orr MD Primary Care Provider [phone] Aiden Linares DPM Unavailable [phone] Kai Gutierres DO Unavailable [phone] Encounter Details Date Type Department Care Team ([facility] Contact Info) Description 03/18/2023 Abstract [facility] [address] [facility] [address] [place] [address] Adriane Cote PA [address] [facility] [address] [place] [address] Social History Tobacco Use Types Packs/Day Years [...] 1:30 PM EDT Office Visit [facility] [address] [place] [phone] Bina Faye MD [address] [place] [address] 06/06/2025 2:00 PM EST Office Visit [facility] [place] [facility] [address] [place] [address] 07/18/2025 3:15 PM EST Procedure Visit [facility] [address] [place] [address] Susie Mary DPM [address] [place] [address] documented as of this encounter Visit Diagnoses Not on filedocumented in this encounter Care Teams Buffer Nickel Relationship Specialty Start Date End Date Darrius Orr MD [address] [place] [address] PCP - [employer] 08/04/19 Darrius Orr MD [address] [place] [address] PCP - General Internal Medicine 12/31/22 Aiden Linares DPM [address] [place] [address] Referring Physician Podiatry 10/30/23 Kai Gutierres DO [address] [facility] [address] [place] [address] Referring Physician Neurology 02/24/24 documented as of this encounter
--- OUTSIDE RECORDS SUMMARY | 2025-05-09 17:10 | XMS_ITS | Encounter Summary ---
Author Organization [facility] Address [address] [facility] [place] [address] Care Team Providers Care Manager Competitive Intelligence Name Role Phone Darrius Orr MD Unavailable [phone] Darrius Orr MD Primary Care Provider [phone] Aiden Linares DPM Unavailable [phone] Kai Gutierres DO Unavailable [phone] Encounter Details Date Type Department Care Team (Late Contact Info) Description 04/10/2023 Orders Only [facility] [place] [facility] [address] [facility] [address] [place] [address] Greer Worthy PA [address] [facility] [address] [place] [address] Social History Tobacco Use Types Packs/Day Years [...] 05/25/2025 1:30 PM EDT Office Visit [facility] [address] [place] [address] Bina Faye MD [address] [place] [address] 06/06/2025 2:00 PM EST Office Visit [facility] [address] [place] [address] 07/18/2025 3:15 PM EST Procedure Visit [facility] [place] [facility] [address] [place] [address] Susie Mary DPM [address] [place] [address] documented as of this encounter Visit Diagnoses Not on filedocumented in this encounter Care Teams Manager Competitive Intelligence Relationship Specialty Start Date End Date Darrius Orr MD [address] [place] [address] PCP - [employer] 08/04/19 Darrius Orr MD [address] [place] [address] PCP - General Internal Medicine 12/31/22 Aiden Linares DPM [address] [place] [address] Referring Physician Podiatry 10/30/23 Kai Gutierres DO [address] [facility] [address] [address] Referring Physician Neurology 02/24/24 documented as of this encounter
--- OUTSIDE RECORDS SUMMARY | 2025-05-09 17:10 | XMS_ITS | Clinical Summary ---
Author Organization [facility] Address [address] [place] [address] Care Team Providers Care Cigar Roller Name Role Phone Darrius Orr MD Unavailable [phone] Darrius Orr MD Primary Care Provider [phone] Aiden Linares DPM Unavailable [phone] Kai Gutierres DO Unavailable [phone] Allergies Active Allergy Reactions Criticality Noted Date [...] neuropathy, with long-term current use of insulin ([facility]) Take 1 tablet (25 mg) by mouth [...] disease, with long-term current use of insulin ([facility]) Inject 100 Units under the skin at bedtime 36 mL Active insulin aspart (NovoLOG FLEXPEN) 100 UNIT/ML penIndications:Ty pe 2 diabetes mellitus with stage 2 chronic kidney disease, with long-term current use of insulin ([facility]) Inject 0-35 Units under the skin in [...] MG tabletIndications :Polyneuropathy associated with underlying disease ([facility]) Take 1 tablet (25 mg) by mouth [...] by mouth at bedtime 30 capsule 5 Active divalproex (Depakote ER) 500 MG 24 hr tablet Take by mouth Active clotrimazole (Lotrimin) 1 % cream Twice daily Active Atogepant 60 MG tablet Take 60 mg by mouth in the morning. 025 2024 Active ketoconazole (NIZOral) 2 % creamIndications: Other seborrheic dermatitis Apply thin layer to affected areas on face and chest bid 30 g 11 Active ergocalciferol (Vitamin D-2) 1.25 MG (53286 UT) capsule Take 1.25 mg by mouth 1 (one) time per week Active ALPRAZolam (Xanax) 0.5 MG tabletIndications :Generalized anxiety disorder Take 1 tablet (0.5 mg) by mouth 2 (two) times a day as needed for anxiety 60 tablet Active carisoprodol (Soma) 350 MG tabletIndications :Cervical paraspinal muscle spasm Take 1 tablet (350 mg) by mouth 2 (two) times a day as needed for muscle spasms 30 tablet 025 Active oxyCODONE-acetami nophen (Percocet) 5-325 MG tabletIndications :Spinal stenosis in cervical region Take 1-2 tablets by mouth every 6 (six) hours if needed for severe pain 90 tablet Active bimatoprost (Lumigan) 0.01 % ophthalmic solution Administer 1 drop into both eyes at bedtime 2024 Discontinued ergocalciferol (Vitamin D-2) 1.25 MG (71834 UT) capsuleIndication s:Vitamin D deficiency Take 1 capsule (1.25 mg) by mouth 1 (one) time per week 12 capsule 3 025 2024 Discontinued ALPRAZolam (Xanax) 0.5 MG tabletIndications :Generalized anxiety disorder Take 1 tablet (0.5 mg) by mouth 2 (two) times a day as needed for anxiety 60 tablet 025 2024 Discontinued(R eorder) carisoprodol (Soma) 350 MG tabletIndications :Cervical paraspinal muscle spasm Take 1 tablet (350 mg) by mouth 2 (two) times a day as needed for muscle spasms 30 tablet 025 2024 Discontinued(R eorder) cephalexin (Keflex) 500 MG capsuleIndication s:Bacterial folliculitis Take 1 capsule by mouth, bid x 14 days. 28 capsule 025 2024 Discontinued(T herapy completed) oxyCODONE-acetami nophen (Percocet) 5-325 MG tabletIndications :Spinal stenosis in cervical region Take 1-2 tablets by mouth every 6 (six) hours if needed for severe pain 90 tablet 025 2024 Discontinued(R eorder) oxyCODONE-acetami nophen (Percocet) 5-325 MG tabletIndications :Spinal stenosis in cervical region Take 1-2 tablets by mouth every 6 (six) hours if needed for severe pain 90 tablet 025 2024 Discontinued(R eorder) Hospital, Clinic, or Other Facility Administered Medication Ordered Dose Route Frequency Start Date End Date Status ketorolac (Toradol) injection 60 mgIndications:History of migraine headaches 60 mg IM Once 04/18/2025 04/23/2025 Ended Active Problems Problem Noted Date Diagnosed [...] & Plan (12/13/2023 10:36 PM EDT): *03/12/2023 Rik Yodit The patient is ataxic on clinical examination [...] Postoperative pain 03/28/2025 Acute left otitis media 02/24/202502/02 Finding of above normal blood pressure 02/24/2025 02/24/2025 Nausea vomiting and diarrhea 02/24/2025 02/24/2025 Right knee sprain 02/24/2025 02/24/2025 Lung nodule 03/14/2023 04/28/2023 Onychomycosis 01/21/2023 10/29/2023 Adrenal adenoma, left 12/30/20222022 Old myocardial infarction 12/10/2022 Nuclear senile cataract 01/03/2021/0 08/2023 Migraine 02/23/2014 03/14/2023 Cervical spondylosis without myelopathy 02/19/2013 10/29/2023 Varicose veins of other specified sites 08/22/2009 10/29/2023 Diabetes mellitus with neuro logical manifestations, controlled 09/28/2008 10/29/2023 Encounters Date Type Department Care Team Description 05/08/2025 Telephone [facility] [place] [facility] [address] [place] [address] Darrius Orr MD On-Call. 05/05/2025 1:15 PM EDT Office Visit [facility] [address] [place] [address] Bina Faye MD Postoperative care for cataract (Primary Dx) 05/05/2025 Orders Only [facility] [address] [place] [address] Darrius Orr MD Spinal stenosis in cervical region 05/05/2025 Telephone [facility] [address] [place] [address] Darrius Orr MD 05/05/2025 Bamboo flowsheet [facility] [address] [place] [address] Bina Faye MD 05/05/2025 Travel 05/02/2025 Orders Only [facility] [address] [place] [address] Unallocated, Noms MD Santos 04/29/2025 Clinisync Result Encounter [facility] External Department Unsolicited Provider, Generic External Data 04/28/2025 Refill [facility] [address] [place] [address] Darrius Orr MD Cervical paraspinal muscle spasm 04/27/2025 Telephone [facility] [address] [place] [address] Darrius Orr MD concerns 04/20/2025 Refill [facility] [address] [place] [address] Darrius Orr MD Spinal stenosis in cervical region 04/19/2025 Telephone [facility] [address] [place] [address] Noa Hansen LPN Headache 04/18/2025 3:15 PM EDT Office Visit [facility] [address] [place] [address] Adela Gross, DRY HOUSE TENDER Essential hypertension (Primary Dx); History of migraine headaches; Generalized anxiety disorder ; Irritable bowel syndrome with diarrhea; Dizziness 04/18/2025 Travel 04/14/2025 2:15 PM EDT Office Visit [facility] [place] [facility] [address] [place] [address] Susie Mary, DPM Onychomycosis (Primary Dx); Neuropathy; Type 2 diabetes mellitus with diabetic neuropathy, with long-term current use of insulin ([facility]) 04/14/2025 1:35 PM EDT Office Visit [facility] [address] [place] [address] Ludy Dela Cruz, FLOW COORDINATOR-J[employer]IOR [employer]IGH [employer]CHO[employer]INCIPAL Bacterial folliculitis (Primary Dx); Other seborrheic dermatitis 04/14/2025 Orders Only [facility] [address] [place] [address] Bina Faye MD Age-related nuclear cataract of both eyes 04/14/2025 Travel 04/13/2025 2:15 PM EDT Office Visit [facility] [address] [place] [address] Bina Faye MD Postoperative care for cataract (Primary Dx) 04/13/2025 Travel 04/07/2025 Telephone [facility] [address] [place] [address] Darrius Solares DO On-Call 04/06/2025 1:15 PM EDT Office Visit [facility] [address] [place] [address] Bina Faye MD Postoperative care for cataract (Primary Dx) 04/06/2025 Telephone [facility] [address] [place] [address] [place], [place] Tooth Absess 04/06/2025 Travel 03/31/2025 2:25 PM EDT Office Visit [facility] [place] [facility] [address] [place] [address] Ludy Dela Cruz, FLOW COORDINATOR-JUNIOR HIGH [employer]CHO[employer] PRINCIPAL Other seborrheic dermatitis (Primary Dx); Bacterial folliculitis 03/31/2025 Travel 03/29/2025 Travel 03/28/2025 10:15 AM EDT Office Visit [facility] [place] [facility] [address] [place] [address] Bhavesh Reveles, Lesion of hard palate (Primary Dx); Pyogenic granuloma 03/28/2025 Telephone [facility] [address] [place] [address] Darrius Orr MD Earache 03/28/2025 Travel 03/28/2025 Telephone [facility] [address] [place] [address] [place], [place] ER Concern 03/26/2025 External Result Encounter [facility] External Department Unsolicited Martha Delvalle NP 03/23/2025 Results Follow-Up [facility] [address] [place] [address] Darrius Orr MD Basic metabolic panel 03/22/2025 Orders Only [facility] [address] [place] [address] Unallocated, Noms MD Santos 03/22/2025 Telephone [facility] [address] [place] [address] Darrius Orr MD Potassium Elevated 03/21/2025 1:00 PM EDT Procedure Visit [facility] Bhavesh Reveles DO Granuloma and granuloma-like lesions of oral mucosa (Primary Dx) 03/21/2025 External Result Encounter [facility] External Department Unsolicited Bhavesh Reveles, 03/21/2025 External Result Encounter [facility]OM[facility] External Department Unsolicited Bhavesh Reveles, DO 03/17/2025 2:30 PM EDT Office Visit [facility] [place] [facility] [address] [place] [address] aDrrius Orr MD Intractable migraine without aura and with status migrainosus (Primary Dx); Cervical paraspinal muscle spasm; Cataract of both eyes, unspecified cataract type; Pyogenic granuloma 03/17/2025 Travel 03/16/2025 Telephone [facility] [address] [place] [address] Darrius Orr MD Toradol Injection 03/15/2025 Orders Only [facility] [address] [place] [address] Darrius Orr MD Polyneuropathy associated with underlying disease (HCC) 03/14/2025 External Result Encounter [facility] External Department Unsolicited Bhavesh Reveles, DO 03/13/2025 Telephone [facility] [address] [place] [address] Darrius Orr MD 03/12/2025 Telephone [facility] [address] [place] [address] Darrius Orr MD 03/12/2025 Travel 03/11/2025 2:45 PM EDT Office Visit [facility] [place] [facility] [address] [place] [address] Bhavesh Reveles DO Oral lesion (Primary Dx); Pyogenic granuloma 03/11/2025 Travel 03/08/2025 2:30 PM EDT Office Visit [facility] [place] [facility] [address] [place] [address] [place] Gunn, EMMA Other migraine without status migrainosus, not intractable (Primary Dx) 03/08/2025 Bamboo flowsheet [facility] [place] [facility] [address] [place] [address] [place] Gunn NP 03/08/2025 Travel 03/07/2025 Telephone [facility] [address] [place] [address] Duran Lai RN dsme 03/07/2025 Orders Only [facility] [address] [place] [address] Bhavesh Reveles, DO 03/07/2025 Telephone [facility] [place] [facility] [address] [place] [address] Aniya Santos MA 03/04/2025 7:05 PM EDT Office Visit [facility] [place] [facility] [address] [place] [address] [place] Gunn, EMMA Pharyngitis, unspecified etiology 03/04/2025 External Result Encounter [facility] External Department Unsolicited Bhavesh Reveles, DO 03/04/2025 Travel 03/04/2025 External Result Encounter [facility] External Department Unsolicited Bhavesh Reveles, DO 03/04/2025 Telephone [facility] [place] [facility] [address] [place] [address] [facility] [place] Sore Throat 02/28/2025 1:30 PM EDT Office Visit [facility] [place] [facility] [address] [place] [address] Darrius Orr MD Type 2 diabetes mellitus with diabetic neuropathy, with long-term current use of insulin (HCC) (Primary Dx); Essential hypertension ; Psoriatic arthritis (HCC); Mixed hyperlipidemia ; Polyneuropathy associated with underlying disease (HCC); Hyperparathyroidism, unspecified ([facility]); Immunodeficiency due to conditions classified elsewhere ([facility]); Relapsing remitting multiple sclerosis (HCC); Morbid obesity ([facility]); Chronic neck pain; Generalized anxiety disorder ; Vitamin B12 deficiency; Vitamin D deficiency; History of colonic polyps; Medicare annual wellness visit, subsequent; ACP (advance care planning); Encounter for screening prostate specific antigen (PSA) measurement 02/28/2025 10:00 AM EDT Office Visit [facility] [place] [facility] [address] [place] [address] Bhavesh Reveles, DO Oral lesion; Pre-procedural laboratory examinations; Lesion of hard palate 02/28/2025 External Result Encounter [facility] External Department Unsolicited Bhavesh Reveles DO 02/28/2025 Orders Only [facility] [address] [place] [address] Unallocated, Pat Graham MD 02/28/2025 Travel 02/25/2025 2:00 PM EDT Office Visit [facility] [address] [place] [address] Adela Gross NP Generalized anxiety disorder (Primary Dx); Acute right-sided thoracic back pain; Chronic bilateral low back pain without sciatica 02/25/2025 Travel 02/23/2025 Telephone [facility] [address] [place] [address] [place], [place] Back Pain 02/21/2025 Travel 02/18/2025 10:15 AM EDT Office Visit [facility] [address] [place] [address] Adela Gross, DRY HOUSE TENDER Primary osteoarthritis involving multiple joints (Primary Dx); Polyneuropathy associated with underlying disease (HCC); Chronic bilateral low back pain without sciatica; Essential hypertension ; Cervical paraspinal muscle spasm 02/18/2025 Refill [facility] [address] [place] [address] LPN 02/18/2025 Travel 02/16/2025 Results Follow-Up [facility] [place] [address] [place] [address] Adela Gross, DRY HOUSE TENDER MR brain wo contrast 02/15/2025 10:15 AM EDT Ancillary Procedure [facility] [address] [place] [address] MS (multiple sclerosis) ([facility]) 02/15/2025 Refill [facility] [address] [place] [address] Darrius Orr MD Bilateral low back pain without sciatica, unspecified chronicity 02/15/2025 Travel 02/12/2025 Telephone [facility] [address] [place] [address] Darrius Orr MD 02/11/2025 Refill [facility] [address] [place] [address] Bina Faye MD Cortical age-related cataract of both eyes (Primary Dx) 02/10/2025 [facility] [address] [place] [address] Bina Faye MD Age-related nuclear cataract of both eyes; Primary open angle glaucoma (POAG) of both eyes, moderate stage 02/09/2025 9:15 AM EDT Office Visit [facility] [address] [place] [address] Darrius Orr MD Bilateral low back pain without sciatica, unspecified chronicity (Primary Dx); Lesion of hard palate; Vitamin D deficiency; MS (multiple sclerosis) ([facility]) 02/09/2025 Refill [facility] [address] [place] [address] LPN Spinal stenosis in cervical region 02/09/2025 Travel 02/07/2025 2:15 PM EDT Office Visit [facility] [address] [place] [address] Bina Faye MD Cortical age-related cataract of both eyes (Primary Dx); Primary open angle glaucoma (POAG) of both eyes, moderate stage 02/07/2025 Travel from Last 3 Months Immunizations Immunization Administration [...] [facility] [address] [place] [address] Bina Faye MD [address] [place] [address] 06/06/2025 2:00 PM EST Office Visit [facility] [place] [facility] [address] [place] [address] 07/18/2025 3:15 PM EST Procedure Visit [facility] [place] [facility] [address] [place] [address] Susie Mary DPM [address] [place] [address] Health Maintenance Due Date Last Done Comments [...] Date/Time Associated Diagnosis Comments [facility]INE C[facility] [place] [facility] Routine 04/29/2025 3:[address] HEAD FOR BRAINLAB W/O CONTRAST Routine 04/29/2025 1:[address] FACIAL BONES W AND WO IV CONTRAST Routine 04/29/2025 1:[address] ANGIO HEAD NECK Routine 04/29/2025 1: 23 PM EDT XR CHEST 1 VIEW Routine 04/29/2025 1:15 PM EDT GLUCOSE POCT GLUCOMETERS Routine 03/26/2025 6:14 PM [...] PM EDT RAPID COVID 19 ANTIGEN Routine 7:41 PM EDT Pharyngitis, unspecified etiology RAPID [...] with long-term current use of insulin (HCC) PATHOLOGY REQUEST FOR LAB BOB Routine 02/28/2025 [...] EDT Cortical age-related cataract of both eyes DIABETIC RETINOPATHY SCREENING - OU - BOTH EYES Routine 04/29/2024 3:46 PM EDT MICROALBUMIN / CREATININE URINE RATIO Routine 04/10/2021 COLONOSCOPY Routine 01/27/2019 12:00 PM EDT from Last 3 Months or Most Recently Relevant to Health Maintenance Results * [facility] [place] [facility] (04/29/2025 3:40 PM EDT) [facility] URINE CULTURE - [facility] Urine Culture - [facility] <9,000 colonies/ml mixed bacterial skin contaminants [facility] URINE CULTURE - [facility] 2 Days [facility] URINE CULTURE - [facility] URINE [facility] Testing performed [facility] URINE CULTURE - [facility] [address] [place] [address] [facility] 04/29/2025 3:40 PM EDT 04/29/2025 3:48 PM EDT Narrative [facility] - 05/01/2025 2:42 PM EDT us Generic External Data Provider LAB BLOOD ORDERAB LES Final Result [facility] * CT HEAD FOR BRAINLAB W/O CONTRAST (04/29/2025 1:30 PM EDT) Anatomical Region Laterality Modality Radiographic Jacklyn ging us Noms Provider Unallocated MD IMG XR PROCEDURES F inal Result * [...] MD IMG XR PROCEDURES F inal Result * (ABNORMAL) GLUCOSE POCT GLUCOMETERS (03/26/2025 6:14 PM EDT) Only the most recent of3 resultswithin the time period is included. [facility] GLUCOSE POC GLUCOMETERS 472(HH) mg/dL 03/26/2025 6:22 PM EDT [facility] Comment: Random Glucose Reference Range is dependent on time and content of last meal. Glucose of more than 200 mg/dL in a nonstressed, ambulatory subject supports the diagnosis of Diabetes Mellitus. COMMEMT1 03/26/2025 6:22 PM EDT [facility] Comment:Glu2: WILL NOTIFY DR /RN COMMEMT2 Cleaned Meter 03/26/2025 6:22 PM EDT [facility] Blood (Blood) 03/26/2025 6:1 4 PM EDT 03/26/2025 6:21 PM EDT us Martha Delvalle DRY HOUSE TENDER LAB BLOOD ORDERABLES Final R esult [facility] [address] [place] [address], [place] * (ABNORMAL) Basic metabolic panel (03/23/2025 12:26 PM EDT) Only the most recent of3 resultswithin the time period is included. Glucose 394(H) 70 - 100 mg/dL 03/23/2025 1:55 PM EDT [facility] Comment: Random Glucose Reference Range is dependent on time and content of last meal. Glucose of more than 200 mg/dL in a nonstressed, ambulatory subject supports the diagnosis of Diabetes Mellitus. ADA recommended reference range BUN 28(H) 7 - 25 mg/dL 03/23/2025 1:55 PM EDT [facility] CREATININE 1.04 0.70 - 1.30 mg/dL 03/23/2025 1:55 PM EDT [facility] ESTIMATED GFR >60.0 03/23/2025 1:55 PM EDT [facility] Sodium 134(L) 136 - 145 mmol/L 03/23/2025 1:55 PM EDT [facility] Potassium, Bld 4.5 3.5 - 5.1 mmol/L 03/23/2025 1:55 PM EDT [facility] Chloride 103 98 - 107 mmol/L 03/23/2025 1:55 PM EDT [facility] Carbon Dioxide 23.2 21.0 - 31.0 mmol/L 03/23/2025 1:55 PM EDT [facility] Anion Gap 12.3 6.0 - 15.0 03/23/2025 1:55 PM EDT [facility] Calcium 8.8 8.6 - 10.3 mg/dL 03/23/2025 1:55 PM EDT [facility] Other Topography unknown / Unknown 03/23/2025 12:26 PM EDT 03/23/2025 12:26 PM EDT us Darrius Orr MD LAB BLOOD ORDERABLES Final Resu lt [facility] [address] [place] [address], [facility] [address] [place] [id number] * CBC auto differential (03/21/2025 11:33 AM EDT) Blood Venous blood specimen / Unknown us Noms Provider Unallocated MD LAB BLOOD ORDERABLE S Final Result * RAPID STREP (03/04/2025 7:41 PM EDT) RESULT negative Negative Throat 03/04/2025 7:41 PM EDT us [place] Gunn DRY HOUSE TENDER POINT OF CARE TEST ENTER/ED IT ORDERABLES Final Result * RAPID COVID 19 ANTIGEN (03/04/2025 7:41 PM EDT) COVID 19 RESULT OP negative Negative Nasal 03/04/2025 7:41 PM EDT Too Hughes DO POINT OF CARE TEST ENTER/ED IT [...] Peres M.D. 03/04/2025 7:38 PM Dictation Location: [place] [address] Transcribed By: [facility] 03/04/251937 Dictated By: Sergei Peres MD 03/04/251923 Signed By: <Electronically signed by Sergei Peres MD in OV> 03/04/251937 Narrative 03/04/2025 7:40 PM EDT [facility] [place] [address] CT Scan Report Signed Patient: Alex Ellis MR#: [id number] 73 : 1970 Acct:[id number] Age/Sex: 54 / M ADM Date: 03/04/25 [...] con Procedure Note Radiology, Radiologist, - 03/04/2025 [facility] Main [place] [address] [place] [address] CT Scan Report Signed Patient: Alex Ellis JMR#: [id number] 73 : 1970Acct:[id number] Age/Sex: 54 / MADM Date: 03/04/25 Loc: CT Room:Type: [facility] CLI Attending Dr: Bhavesh Reveles DO Copies [...] Peres M.D. 03/04/2025 7:38 PM Dictation Location: [place] [address] Transcribed By: [facility] 03/04/251937 Dictated By: Sergei Peres MD 03/04/251923 Signed By: <Electronically signed by Sergei Peres MD in OV> 03/04/251937 us Bhavesh Reveles DO IMG CT PROCEDURES Final Res ult * ISTAT XRAY CRE (03/04/2025 12:34 PM EDT) ISTAT CREATININE LEVEL 1.0 0.6 - 1.3 mg/dL 03/04/2025 12:36 PM EDT [facility] Comment: ER/ESD physician is notified/shown all ISTAT results. Critical values may be confirmed by laboratory testing if deemed necessary by ER attending doctor. ISTAT GFR >60.0 03/04/2025 12:36 PM EDT [facility] Blood (Blood) 03/04/2025 12: 34 PM EDT 03/04/2025 12:36 PM EDT us Bhavesh S Biedenbach DO LAB BLOOD ORDERABLES Final Result Performing Organization Address [facility] Co de Phone Number [address] [address], [facility] [address] [place] [address] * GENERAL PATHOLOGY (02/28/2025 2:53 PM EDT) Bhavesh Reveles DO [facility] Final Resul t * POCT glycosylated hemoglobin (Hb A1C) docked device (02/28/2025 2:05 PM EDT) Hemoglobin A1C 11.9 Blood Venous blood specimen / Unknown 02/28/2025 2:05 PM EDT us Darrius Orr MD POINT OF CARE TEST ENTER/EDIT O RDERABLES Final Result * PATHOLOGY REQUEST FOR LAB BOB (02/28/2025 10:15 AM EDT) PATHOLOGY REQUEST FOR LAB BOB 03/07/2025 2:55 PM EDT [facility] Comment:See report. Scanned copy available in EMR. Other Topography unknown / Unknown 02/28/2025 10:15 AM EDT 03/01/2025 9:17 AM EDT Narrative [facility] - 03/07/2025 2:55 PM EDT [facility] Bhavesh Reveles DO LAB BLOOD ORDERABLES Final Result Performing Organization Address [facility] Co de Phone Number [address] [address], [facility] [address] [place] [address] * MR brain wo contrast (02/15/2025 11:03 [...] SIGNED BY: Darrius Mccall DO Srikanth Horvath [employer] IMG MRI PROCEDURES Final Res ult * [...] Biometry - OU - Both Eyes (CPT 46648) (02/07/2025 2:56 PM EDT) A LENGTH (OS) 23.22 A LENGTH (OD) 23.48 Anatomical Region Laterality Modality Head Other Narrative 02/07/2025 2:56 PM EDT Right Eye Axial length was 23.48. Left Eye Axial length was 23.22. Bina Faye MD OPHTH ULTRASOUND Final Result * Diabetic Retinopathy Screening - [...] LAB URINE ORDERABLES Final Resu lt [facility] * Colonoscopy (01/27/2019 12:00 PM EDT) Anatomical Region Laterality Modality Endoscopy 01/27/2019 12:0 0 PM EDT Narrative 01/27/2019 12:00 PM EDT PERFORMED AT [facility] LOCATION:[id number] polypectomy- repeat 5 yrs Procedure Note CONVERSION, GENERIC - 12/18/2022 PERFORMED AT [facility] LOCATION:[id number] polypectomy- repeat 5 yrs Darrius Orr MD ENDOSCOPY PROCEDURE ORDERABLES Final Result from Last 3 Months or Most Recently Relevant to Health Maintenance Insurance [employer] MEDICARE ADVANTAGE [place]ICAID [place] Care Teams Cigar Roller Relationship Specialty Start Date End Date Darrius Orr MD [address] [facility] [place] [address] PCP - [employer] 08/04/19 Darrius Orr MD [address] [place] [address] PCP - General Internal Medicine 12/31/22 Aiden Linares DPM [address] [facility] [address] [place] [address] Referring Physician Podiatry 10/30/23 Kai Gutierres DO [address] [facility] [address] [place] [address] Referring Physician Neurology 02/24/24
[2025-05-09 17:20] VITALS: BP 170/79
--- NOTE | 2025-05-09 17:24 | ED.GENADUL1 ---
HPI HPI - General Adult General Chief complaint: Headache Stated complaint: DIZZY, MASSIVE HEAD PAIN Time Seen by Provider: 05/09/25 17:18 Source: patient Mode of arrival: walk-in History of Present Illness HPI narrative: cc - headache and vertigo Patient has a long history of recurrent neck pain and headache. He also developed some vertigo. He saw the neurologist for these complaints and was diagnosed with labyrinthitis. He said that the ear crystals are causing me to get dizzy . Headache today is typical of his prior headaches. He has some nausea but no photophobia. It is bitemporal and bifrontal. He got a Toradol injection yesterday at [facility]. He went back there today to get another injection of Toradol but the wait was too long so he decided to come to [facility]. Is asking for something for nausea, for his dizziness and another shot of Toradol. Related Data Home Medications ?Medication ?Instructions ?Recorded ?Confirmed insulin degludec 200 unit/mL (3 100 unit subcut DAILY 05/21/23 04/24/25 mL) subcutaneous pen (Tresiba FlexTouch U-200 insulin) rosuvastatin 10 mg tablet 10 mg PO DAILY 05/21/23 04/29/25 amitriptyline 25 mg tablet mg 12/28/24 pregabalin 300 mg capsule 300 mg PO DAILY 12/28/24 04/29/25 alprazolam 0.5 mg tablet 0.5 mg PO BID 04/18/25 04/29/25 atogepant 60 mg tablet (Qulipta) 60 mg PO DAILY 04/18/25 04/29/25 empagliflozin 10 mg tablet 10 mg PO DAILY 04/18/25 04/29/25 (Jardiance) metoprolol succinate 100 mg 100 mg PO DAILY 04/18/25 04/29/25 tablet,extended release 24 hr Previous Rx's ?Medication ?Instructions ?Recorded ondansetron 4 mg disintegrating 4 mg PO Q6H PRN nausea and 05/09/25 tablet vomiting #20 tabs Allergies Allergy/AdvReac Type Severity Reaction Status Date / Time celecoxib (From Celebrex) AdvReac Diarrhea Verified 04/24/25 18:22 Opioid HPI Opioid Management Most Recent Opioid Data: Last Pain Scale 10 04/24/25, 18:51 Ur Phencyclidine Scrn, (NEGATIVE) Negative 04/29/25, 15:40 [facility] Medical History (Updated 05/09/25 @ 17:27 by Mayco Michelle) Multiple sclerosis ?G35 - Multiple sclerosis (ICD-10) Social History Smoking status: Current every day smoker Little interest or pleasure in doing things: not at all Feeling down, depressed, or hopeless: not at all Exam Narrative Exam Narrative: Nurses notes and vital signs reviewed and patient is not hypoxic. afebrile General: Well-appearing and in no apparent distress. Skin: Warm, dry, no pallor noted. Head: Normocephalic, atraumatic. Neck: Supple, non-tender. No meningismus. No lymphadenopathy. Eye: Pupils are equal, round and EOMI. No scleral icterus. Ears, Nose, Mouth, and Throat: TM are clear, no posterior oropharynx erythema or nasal mucosal hypertrophy, uvula is mid-line Oral mucosa is moist Cardiovascular: Regular Rate and Rhythm without murmur, gallop or rub. Respiratory: No accessory muscle use or respiratory distress. Lungs are clear to auscultation, no wheezing, rales or rhonchi Musculoskeletal: normal ROM in upper and lower extremities. Neurological: A&O x4. No cranial nerve dysfunction observed. No truncal ataxia. Moves all extremities. Sensation intact. Psychiatric: Cooperative and interactive. Normal mood and affect. Constitutional Vital Signs, click to edit/add: Last Vital Signs Temp 98.0 F 05/09/25 17:07 Pulse 66 05/09/25 17:07 Resp 20 05/09/25 17:07 BP 170/79 H 05/09/25 17:20 Pulse Ox 98 05/09/25 17:07 O2 Del Method Room Air 05/09/25 17:07 Course Vital Signs Vital signs: Vital Signs Temperature 98.0 F 05/09/25 17:07 Pulse Rate 66 05/09/25 17:07 Respiratory Rate 20 05/09/25 17:07 Blood Pressure 193/93 H 05/09/25 17:07 Pulse Oximetry 98 05/09/25 17:07 Oxygen Delivery Method Room Air 05/09/25 17:07 Temperature 98.0 F 05/09/25 17:07 Pulse Rate 66 05/09/25 17:07 Respiratory Rate 20 05/09/25 17:07 Blood Pressure 170/79 H 05/09/25 17:20 Pulse Oximetry 98 05/09/25 17:07 Oxygen Delivery Method Room Air 05/09/25 17:07 Medical Decision Making MDM Narrative Medical decision making narrative: The patient was given IM Toradol, oral meclizine and oral Zofran. He denied already discussed his diagnosis and plan for treatment prior to receiving these medications. He was discharged home with recommendation to follow-up with his neurologist and his primary care physician. ED return if he worsens. Discharge Plan Discharge Chief Complaint: Headache Clinical Impression: Headache, Acute labyrinthitis Patient Disposition: Home, Self-Care Time of Disposition Decision: 17:27 Prescriptions / Home Meds: New ondansetron 4 mg tablet,disintegrating 4 mg PO Q6H PRN (Reason: nausea and vomiting) Qty: 20 0RF No Action insulin degludec [Tresiba FlexTouch U-200] 200 unit/mL (3 mL) insulin pen 100 unit SUBCUT DAILY rosuvastatin 10 mg tablet 10 mg PO DAILY alprazolam 0.5 mg tablet 0.5 mg PO BID Qulipta 60 mg tablet 60 mg PO DAILY Jardiance 10 mg tablet 10 mg PO DAILY metoprolol succinate 100 mg tablet extended release 24 hr 100 mg PO DAILY amitriptyline 25 mg tablet pregabalin 300 mg capsule 300 mg PO DAILY Print Language: Macedonian Instructions: Labyrinthitis (ED), Acute Headache (ED) Referrals: NISA ROJAS [Primary Care Provider, Internal Medicine] - 1 week
[2025-05-09] MEDS: MECLIZINE HCL 12.5 MG TABLET 25 MG PO (17:59)
[2025-05-09] MEDS: KETOROLAC TROMETHAMINE 60 MG/2 ML VIAL IM (17:59)
[2025-05-09] MEDS: ONDANSETRON 4 MG RAPDIS TABLET SL (17:59)
== END 2025-05-09 18:05 | disposition home or self-care (01) ==
PROVIDERS: Emergency Provider Emergency Medicine; PCP Internal Medicine
DX: H83.09 Labyrinthitis, unspecified ear (principal); R51.9 Headache, unspecified; F17.200 Nicotine dependence, unspecified, uncomplicated
CPT/HCPCS: 96372; 99284; J1885; Q0162

== ENCOUNTER 2025-05-15 22:17 | Emergency (ER) | payer MEDICARE, MEDICAID, SELFPAY ==
[2025-05-15 22:29] VITALS: BP 166/92; PULSE 73; TEMP 37.1; O2SAT 99; BMI 53.2
[2025-05-15 22:49] VITALS: PULSE 75
[2025-05-15 22:50] VITALS: O2SAT 98
--- NOTE | 2025-05-15 22:52 | ECG_ITS ---
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 Measurements Intervals [place] Rate: 72 P: 34 [place]: 264 QRS: -18 QRSD: 86 T: 72 QT: 408 QTc: 432 Interpretive Statements 1100 Sinus rhythm 2231 First degree AV block 4068 Nonspecific Twave abnormality 5222 Moderate voltage criteria for LVH, may be normal variant Poor R wave progression 9150 abnormal ECG Compared to ECG 04/29/2025 14:23:15 No significant changes Electronically Signed On 05-16-2025 6:10:23 EDT by KALPESH MAN M.D.
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
[2025-05-15] MEDS: KETOROLAC TROMETHAMINE 60 MG/2 ML VIAL IM (23:11)
[2025-05-15 23:48] LABS: Anion Gap 15.2; Blood Urea Nitrogen 23.0 mg/dL (7.0-18.0); Calcium 8.7 mg/dL (8.5-10.1); Carbon Dioxide 24.3 mmol/L (21.0-32.0); Chloride 102 mmol/L (98-107); Estimated GFR (African America >60 (>=60 mL/min/1.73m^2); Estimated GFR (Non-African Ame 57 (>=60 mL/min/1.73m^2); Glucose 379 mg/dL (74-106); Potassium 4.5 mmol/L (3.5-5.1); Sodium 137 mmol/L (136-145)
== END 2025-05-16 00:31 | disposition left against medical advice (07) ==
PROVIDERS: Emergency Provider Emergency Medicine; PCP Internal Medicine
DX: R07.89 Other chest pain (principal); Z53.29 Procedure and treatment not carried out because of patient's decision for other reasons; E66.01 Morbid (severe) obesity due to excess calories; Z68.43 Body mass index [BMI] 50.0-59.9, adult; Z79.899 Other long term (current) drug therapy; F17.200 Nicotine dependence, unspecified, uncomplicated; R79.89 Other specified abnormal findings of blood chemistry
CPT/HCPCS: 36415; 71275; 80048; 84484; 85378; 93005; 96372; 99285; J1885; Q9967